=== PATIENT | female | born 1945 | race Caucasian/White ===

== ENCOUNTER 2017-03-15 05:00 | Inpatient (IN) | payer MEDICARE, BC ==
[2017-03-15] VITALS (36 sets, daily range): BP systolic 60–144; BP diastolic 41–128; PULSE 99–170; RESP 10–40; TEMP 98.3–101.1; O2SAT 90–100
[~2017-03-15 05:00] MED LIST: BLOOD GLUCOSE M1 KIT; BUME1TAB PO; CAPT25TA2 PO; CHOL4POW4 PO; LANTUS2P SQ; LEVO50TA4 PO; METF1000 PO; NOVOLOGP2 SQ; ONETTES4; PACE200T PO; SIMV20TA PO; TEMA15CA PO; VENL150T PO
--- NOTE | 2017-03-15 05:26 | PD ---
HPI Chief Complaint: Cardiac Complaint Time Seen by Provider: 05:19 Travel History International Travel<30 days: No Contact w/Intl Traveler<30days: No Traveled to known affect area: No History of Present Illness HPI 71yo F with PMH of CVA, afib s/p ablation 2013 but was told it returned 3 weeks ago, colon ca s/p chemo now cancer free, DM, HLD, HTN, hypothyroidism, anemia, GI bleed (eliquis stopped in 12/2015 due to GI bleed) presents to the ED with c/ o sob, nausea, NBNB vomiting, abdominal pain that started about 2 hours ago. States she has been having progressively worsening generalized weakness for 3 weeks. Then today, started having left flank pain and then vomited at least 8 times. states he could not understand for and her speech was incomprehensible during this time and that has resolved. Denies any fever, chest pain, focal weakness or numbness. States abdominal pain had resolved. Denies any diarrhea, or urinary complaints. Dr. 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 Dr. Candelario is her oncologist. PFSH Past Medical History Hx Anticoagulant Therapy: Yes Atrial Fibrillation: Yes Autoimmune Disease: No Heart Rhythm Problems: No Cancer: Yes (skin cancer in nose) Cardiovascular Problems: Yes (A FIB) High Cholesterol: No Chest Pain: No Congestive Heart Failure: No Cerebrovascular Accident: Yes (TIA X 2) Diabetes: Yes Diminished Hearing: No Endocrine: No Gastrointestinal Disorders: No Genitourinary: No Hiatal Hernia: No Hypertension: Yes Immune Disorder: No Musculoskeletal: No Neurologic: Yes Reproductive: No Respiratory: No Immunizations Current: Yes Migraines: No Seizures: No Thyroid Disease: Yes Menopausal: Yes : 3 Para: 2 Past Surgical History Abdominal Surgery: Yes (colon cancer02/2016, hernia repair) AICD: No Appendectomy: Yes Cardiac Surgery: Yes (ablation) Section: Yes Ear Surgery: No Endocrine Surgery: No Eye Surgery: No Genitourinary Surgery: No Gynecologic Surgery: Yes (c section x2) Joint Replacement: No Oral Surgery: No Pacemaker: No Thoracic Surgery: No Other Surgery: Yes (hernia repair) Social History Alcohol Use: Yes (occassional) Tobacco Use: No Substance Use: No Allergies-Medications (Allergen,Severity, Reaction): Coded Allergies: codeine (Unverified Allergy, Severe, Nausea/Vomiting, 03/15/17) Uncoded Allergies: METAL (Allergy, Intermediate, hives, 03/08/16) SURGICAL STEEL (Allergy, Intermediate, hives, 03/08/16) Reported Meds & Prescriptions Reported Meds & Active Scripts Active Temazepam 15 Mg Cap 15 Mg PO HS PRN Onetouch Ultra Test Strips (Blood Glucose Test Strips) 1 Daya Daya Strip .ROUTE DIRECTED Blood Glucose Monitoring W/Device (Device) 1 Kit Kit Kit .ROUTE DIRECTED Novolog Inj (Insulin Aspart) 1,000 Unit/10 Ml Vial 1-9 Units SQ ACHS Max dose at bedtime:(1)units; sugars less than 70,(0)units; sugars 150-199,(1) unit; sugars 200-249,(3) units; sugars 250-299,(5) units; sugars 300-349,(7) units; sugars greater than 349,(9) units Cholestyramine 4 Gm/Pkt Powd 4 Gm PO DAILY 1 packet contains 4 grams of cholestyramine. Simvastatin 20 Mg Tab 20 Mg PO DAILY Venlafaxine ER 24 HR (Venlafaxine HCl) 150 Mg Tab 150 Mg PO DAILY Levothyroxine (Levothyroxine Sodium) 50 Mcg Tab 50 Mcg PO DAILY Captopril 25 Mg Tab 25 Mg PO DAILY Take 1 hr before meals. Lantus Inj (Insulin Glargine) 100 Unit/Ml Inj 15 Units SQ HS Reported Ditropan (Oxybutynin Chloride) 5 Mg Tab 5 Mg PO Q8HR Metformin (Metformin HCl) 500 Mg Tab 500 Mg PO BIDPC With meals Bumetanide Unknown Strength Tab Unknown Dose PO BID Pacerone (Amiodarone HCl) 200 Mg Tab 200 Mg PO DAILY Review of Systems Except as stated in HPI: all other systems reviewed are Neg Physical Exam Narrative GENERAL: 71yo F in moderate distress. SKIN: Focused skin assessment warm/dry. HEAD: Atraumatic. Normocephalic. EYES: Pupils equal and round. No scleral icterus. No injection or drainage. ENT: No nasal bleeding or discharge. Mucous membranes pink and moist. NECK: Trachea midline. No JVD. CARDIOVASCULAR: Irregular rate and rhythm. No murmur appreciated. RESPIRATORY: No accessory muscle use. Clear to auscultation. Breath sounds equal bilaterally. O2sat 86% on RA. GASTROINTESTINAL: Abdomen soft, distended. Not tender to palpation. MUSCULOSKELETAL: No obvious deformities. No clubbing. No cyanosis. Trace bilateral lower ext edema. NEUROLOGICAL: Awake and alert. No obvious cranial nerve deficits. Motor grossly within normal limits. Normal speech. PSYCHIATRIC: Appropriate mood and affect; insight and judgment normal. Data Data Last Documented VS Vital Signs Date Time Temp Pulse Resp B/P (MAP) Pulse Ox O2 Delivery O2 Flow Rate FiO2 03/15/17 09:30 115 20 131/82 (98) 94 Nasal Cannula 4.00 03/15/17 05:04 98.3 Orders Orders Diltiazem Inj (Cardizem Inj) (03/15/17 05:30) Complete Blood Count With Diff (03/15/17 05:20) Basic Metabolic Panel (Bmp) (03/15/17 05:20) B-Type Natriuretic Peptide (03/15/17 05:20) Act Partial Throm Time (Ptt) (03/15/17 05:20) Prothrombin Time / Inr (Pt) (03/15/17 05:20) Magnesium (Mg) (03/15/17 05:20) Troponin I (03/15/17 05:20) Blood Culture (03/15/17 05:20) Iv Access Insert/Monitor (03/15/17 05:20) Ecg Monitoring (03/15/17 05:20) Oximetry (03/15/17 05:20) Oxygen Administration (03/15/17 05:20) Chest, Single Ap (03/15/17 05:20) Ct Pulmonary Angiogram (03/15/17 05:20) Sodium Chloride 0.9% Flush (Ns Flush) (03/15/17 05:30) Ct Brain W/O Iv Contrast(Rout) (03/15/17 ) Ct Abd/Pel W Iv Contrast(Rout) (03/15/17 ) Sodium Chlor 0.9% 1000 Ml Inj (Ns 1000 M (03/15/17 05:45) Vital Signs (Adult) Q4H (03/15/17 05:44) Activity Bed Rest (03/15/17 05:44) Intake + Output MAGALI.QSHIFT (03/15/17 05:44) Vital Signs (Adult) Q15MX4,Q4H (03/15/17 05:44) [employer] Technician / Telemetry MAGALI.Q8H (03/15/17 05:44) Cardiac Rhythm MAGALI.Q8H (03/15/17 05:44) Notify Dr: Other (03/15/17 05:44) Diltiazem Inj (Cardizem Inj) (03/15/17 05:45) Urinalysis - C+S If Indicated (03/15/17 05:48) Urine Culture (03/15/17 06:03) Ceftriaxone Inj (Rocephin Inj) (03/15/17 06:45) Electrocardiogram (03/15/17 05:19) Iodixanol 320 Inj (Rad Ct) (Visipaque 32 (03/15/17 08:11) Insulin Aspart Inj (Novolog Inj) (03/15/17 08:15) B-Type Natriuretic Peptide (03/15/17 08:16) Lactic Acid (03/15/17 08:16) Sodium Chlor 0.9% 1000 Ml Inj (Ns 1000 M (03/15/17 09:15) Sodium Chlor 0.9% 1000 Ml Inj (Ns 1000 M (03/15/17 09:15) Vancomycin Inj (Vancomycin Inj) (03/15/17 09:15) Admit Order (Ed Use Only) (03/15/17 09:40) Labs Laboratory Tests Test 03/15/17 05:55 03/15/17 06:03 03/15/17 08:27 White Blood Count 7.1 TH/MM3 Red Blood Count 4.81 MIL/MM3 Hemoglobin 13.9 GM/DL Hematocrit 42.3 % Mean Corpuscular Volume 87.8 FL Mean Corpuscular Hemoglobin 28.8 PG Mean Corpuscular Hemoglobin Concent 32.8 % Red Cell Distribution Width 15.5 % Platelet Count 143 TH/MM3 Mean Platelet Volume 9.2 FL Neutrophils (%) (Auto) 96.1 % Lymphocytes (%) (Auto) 2.9 % Monocytes (%) (Auto) 0.8 % Eosinophils (%) (Auto) 0.1 % Basophils (%) (Auto) 0.1 % Neutrophils # (Auto) 6.8 TH/MM3 Lymphocytes # (Auto) 0.2 TH/MM3 Monocytes # (Auto) 0.1 TH/MM3 Eosinophils # (Auto) 0.0 TH/MM3 Basophils # (Auto) 0.0 TH/MM3 CBC Comment AUTO DIFF Differential Total Cells Counted 100 Neutrophils % (Manual) 72 % Band Neutrophils % 16 % Lymphocytes % 6 % Monocytes % 5 % Neutrophils # (Manual) 6.3 TH/MM3 Myelocytes 1 % Differential Comment FINAL DIFF MANUAL Platelet Estimate NORMAL Platelet Morphology Comment NORMAL Prothrombin Time 11.3 SEC Prothromb Time International Ratio 1.0 RATIO Activated Partial Thromboplast Time 21.3 SEC Blood Urea Nitrogen 17 MG/DL Creatinine 1.32 MG/DL Random Glucose 430 MG/DL Calcium Level 9.0 MG/DL Magnesium Level 1.5 MG/DL Sodium Level 133 MEQ/L Potassium Level 3.6 MEQ/L Chloride Level 96 MEQ/L Carbon Dioxide Level 23.5 MEQ/L Anion Gap 14 MEQ/L Estimat Glomerular Filtration Rate 40 ML/MIN Troponin I 0.02 NG/ML B-Type Natriuretic Peptide 136 PG/ML 220 PG/ML Urine Color YELLOW Urine Turbidity HAZY Urine pH 6.0 Urine Specific Roundup 1.011 Urine Protein 30 mg/dL Urine Glucose (UA) 1000 mg/dL Urine Ketones TRACE mg/dL Urine Occult Blood LARGE Urine Nitrite NEG Urine Bilirubin NEG Urine Urobilinogen LESS THAN 2.0 MG/DL Urine Leukocyte Esterase SMALL Urine RBC /hpf Urine WBC 54 /hpf Urine WBC Clumps RARE Urine Squamous Epithelial Cells 2 /hpf Urine Bacteria MOD /hpf Urine Hyaline Casts 2 /lpf Urine Mucus FEW /lpf Microscopic Urinalysis Comment CULTURE INDICATED Lactic Acid Level 5.5 mmol/L MDM Medical Decision Making Medical Screen Exam Complete: Yes Emergency Medical Condition: Yes Interpretation(s) EKG: Afib at 142bpm. LAD. No ST segment elevation or depression. Differential Diagnosis Afib RVR vs. pneumonia vs. TIA vs. PE vs. ACS vs. obstruction vs. pyelonephritis vs. dehydration Narrative Course 71yo F with multiple comorbidities here with c/o vomiting that started with left flank pain and now sob. Pt found to be in afib RVR in the 140s-150s on arrival. Pt given cardizem 20mg X2 with improvement of heart rate in the 120s but HR fluctuates to 130s now. Pt placed on cardizem drip as well as NS IVF. I think the afib RVR is multifactorial with component from underlying dehydration and infection and underlying conditions need to be treated to correct the afib RVR. UA positive for leukocyte and elevated WBC, so pt given ceftriaxone 1gm IV. Pt hypoxic with O2 sat at 86% on RA and placed on 4 L NC saturating at 94%. Pt currently has no abdominal pain and no focal neurologic deficits although said she was incomprehensible earlier and had a CVA when that happened. Pt is not on any anticoagulation for her afib. Pt is pending rest of labs and imaging studies before admission to ICU. Sign out to next team to follow and admit. Diagnosis Primary Impression: Atrial fibrillation with rapid ventricular response Admitting Information Admitting Physician Requests: it Paris Rivera DO Mar 15, 2017 05:26
[2017-03-15] MEDS ORDERED: SODIUM CHLORIDE 0.9% FLUSH 10 ML FLUSH IVF PRN (05:30)
[2017-03-15] MEDS ORDERED: DILTIAZEM HCL 25 MG/5 ML VIAL IV PUSH ONE (05:30)
[2017-03-15] MEDS ORDERED: DILTIAZEM INJ 125 MG in SODIUM CHLORIDE 0.9% INJ 100 ML IV PRN (05:45)
[2017-03-15] MEDS ORDERED: SODIUM CHLOR 0.9% 1000 ML INJ 1,000 ML IV ONE ×2 (05:45→14:00)
[2017-03-15 06:17] LABS: AUTOMATED NEUTROPHIL # 6.8 TH/MM3 (1.8-7.7); BASOPHIL % 0.1 % (0.0-2.0); EOSINOPHIL % 0.1 % (0.0-4.0); HEMATOCRIT 42.3 % (35.0-46.0); LYMPH % 2.9 % (9.0-44.0); LYMPHOCYTE # 0.2 TH/MM3 (1.0-4.8); MEAN CELL VOLUME 87.8 FL (80.0-100.0); MEAN CORPUSCULAR HEMOGLOBIN 28.8 PG (27.0-34.0); MEAN CORPUSCULAR HGB CONC 32.8 % (32.0-36.0); MONO % 0.8 % (0.0-8.0); NEUT % 96.1 % (16.0-70.0); PLATELET COUNT 143 TH/MM3 (150-450); RED BLOOD COUNT 4.81 MIL/MM3 (4.00-5.30); RED CELL DISTRIBUTION WIDTH 15.5 % (11.6-17.2); WHITE BLOOD COUNT 7.1 TH/MM3 (4.0-11.0)
[2017-03-15 06:19] LABS: HEMO FLAGS AUTO DIFF
[2017-03-15 06:24] LABS: BACTERIA, URINE MOD /hpf; BLOOD, URINE LARGE (NEG); COMMENT (UR) CULTURE INDICATED; CULTURE IF INDICATED CULTURE INDICATED; GLUCOSE,URINE 1000 mg/dL (NEG); HYALINE CAST, URINE 2 /lpf (RARE); KETONE, URINE TRACE mg/dL (NEG); MUCUS URINE FEW /lpf (OCC); NITRITE,URINE NEG (NEG); SQUAMOUS EPITHELIAL CELL URINE 2 /hpf (0-5); URINE COLOR YELLOW (YELLW/STRAW)
[2017-03-15 06:27] LABS: APTT (PATIENT) 21.3 SEC (24.3-30.1); PROTHROMBIN TIME - PATIENT 11.3 SEC (9.8-11.6)
[2017-03-15 06:37] LABS: BICARBONATE 23.5 MEQ/L (21.0-32.0); MAGNESIUM 1.5 MG/DL (1.5-2.5); POTASSIUM 3.6 MEQ/L (3.5-5.1)
[2017-03-15] MEDS ORDERED: cefTRIAXone INJ 1,000 MG in SODIUM CHLORIDE 0.9% INJ 100 ML IV ONE (06:45)
[2017-03-15 06:58] LABS: BANDS 16 % (0-6); MYELOCYTES 1 % (0-0); NEUTROPHIL # MANUAL DIFF 6.3 TH/MM3 (1.8-7.7); POLYS (SEG NEUTROPHILS) 72 % (16-70); WBC DIFF SAMPLE 100
[2017-03-15 06:59] LABS: PLATELET ESTIMATE SMEAR NORMAL (NORMAL); PLATELET MORPHOLOGY NORMAL (NORMAL); SCAN/DIFF FINAL DIFF MANUAL
--- NOTE | 2017-03-15 07:21 | RADRPT ---
EXAM DATE/TIME: 03/15/2017 05:41 [facility] COMPARISON: CT PULMONARY ANGIOGRAM, March 17, 2015, 19:16. INDICATIONS : Shortness of breath, nausea, and vomiting. MEDICAL HISTORY : Carcinoma, colon. Diabetes mellitus type II. Hypertension. SURGICAL HISTORY : Infusaport. ENCOUNTER: Initial ACUITY: 1 day PAIN SCORE: 0/10 LOCATION: chest FINDINGS: Right [id number] catheter tip projects over the distal superior vena cava. The lungs are symmetri amanda aerated. There is fullness in the hilar region bilaterally; cannot exclude bilateral hilar dakota nopathy. The heart is normal in size. Both hemidiaphragms are well delineated. Healed fracture lat eral right clavicle. CONCLUSION: Opacity in the perihilar region bilaterally suggesting either central infiltrates or adenopathy. Antonio Voss MD on March 15, 2017 at 7:18 Board Certified Radiologist. This report was verified electronically.
[2017-03-15] MEDS ORDERED: IODIXANOL 320 MG/ML 10 ML VIAL (for Rad CT) IVCONTRAST ONE (08:11)
--- NOTE | 2017-03-15 08:14 | RADRPT ---
EXAM DATE/TIME: 03/15/2017 07:47 [facility] COMPARISON: CT BRAIN W/O CONTRAST, February 06, 2015, 14:42. INDICATIONS : Altered mental status. RADIATION DOSE: 56.35 CTDIvol (mGy) MEDICAL HISTORY : Carcinoma, colon. Cardiovascular disease Hypertension.Skin cancer. CVA. Diabetes. SURGICAL HISTORY : section. Appendectomy.Hernia repair. ENCOUNTER: Initial ACUITY: 1 day PAIN SCALE: 0/10 LOCATION: cranial TECHNIQUE: Multiple contiguous axial images were obtained of the head. Using automated exposure control and adj ustment of the mA and/or kV according to patient size, radiation dose was kept as low as reasonably a chievable to obtain optimal diagnostic quality images. DICOM format image data is available electro nically for review and comparison. FINDINGS: CEREBRUM: The ventricles are normal for age. No evidence of midline shift, mass lesion, hemorrhage or acute in farction. No extra-axial fluid collections are seen. POSTERIOR FOSSA: The cerebellum and brainstem are intact. The 4th ventricle is midline. The cerebellopontine angle i s unremarkable. EXTRACRANIAL: The visualized portion of the orbits is intact. SKULL: The calvaria is intact. No evidence of skull fracture. CONCLUSION: No acute intracranial disease. Jai Queen MD on March 15, 2017 at 8:12 Board Certified Radiologist. This report was verified electronically.
[2017-03-15] MEDS ORDERED: INSULIN ASPART 1,000 UNITS/10 ML VIAL SQ ONE (08:15)
--- NOTE | 2017-03-15 08:28 | RADRPT ---
EXAM DATE/TIME: 03/15/2017 07:46 [facility] COMPARISON: CT PULMONARY ANGIOGRAM, March 17, 2015, 19:16. INDICATIONS : Shortness of breath with atrial fibrillation. Evaluate for embolism. IV CONTRAST: 50 cc Visipaque (iodixanol) IV ; Cumulative dose for multiple exams. RADIATION DOSE: 14.58 CTDIvol (mGy) MEDICAL HISTORY : Carcinoma, colon. Hypertension. Cardiovascular diseaseSkin cancer. Diabetes. CVA. SURGICAL HISTORY : Appendectomy. section.Hernia repair. ENCOUNTER: Initial ACUITY: 1 day PAIN SCALE: 0/10 LOCATION: chest TECHNIQUE: Volumetric scanning of the chest was performed using a pulmonary embolism protocol MIP images were re constructed. Using automated exposure control and adjustment of the mA and/or kV according to patien t size, radiation dose was kept as low as reasonably achievable to obtain optimal diagnostic quality images. DICOM format image data is available electronically for review and comparison. Follow-up recommendations for detected pulmonary nodules are based at a minimum on nodule size and pa tient risk factors according to Fleischner Society Guidelines. FINDINGS: PULMONARY ARTERIES: No filling defects are seen in the pulmonary arteries through the segmental level. LUNGS: There is no consolidation or pneumothorax . No concerning pulmonary nodule is visualized. Bibasilar patchy infiltrates. There is mosaic attenuation. Minimal patchy density in the right middle lobe. PLEURAE: There is no pleural thickening or pleural effusion. MEDIASTINUM: There is good visualization of the great vessels of the middle mediastinum. No evidence of mediastin al or hilar adenopathy/mass. Heart is enlarged. There is enlargement of the pulmonary trunk and pulmo nary arteries. There are some prominent mediastinal lymph nodes predominantly within the precarinal a nd subcarinal location. MUSCULOSKELETAL: Within normal limits for patient age. MISCELLANEOUS: The visualized upper abdominal organs demonstrate no acute abnormality. CONCLUSION: 1. No evidence for pulmonary embolism. 2. Cardiomegaly with enlargement of pulmonary arteries likely from pulmonary arterial hypertension. 3. Bibasilar patchy densities could be atelectasis or infiltrate. 4. Mosaic attenuation which can be seen with small airway disease. 5. Enlarged precarinal and subcarinal adenopathy. Jai Queen MD on March 15, 2017 at 8:24 Board Certified Radiologist. This report was verified electronically.
--- NOTE | 2017-03-15 08:32 | RADRPT ---
EXAM DATE/TIME: 03/15/2017 07:51 [facility] COMPARISON: No previous studies available for comparison. INDICATIONS : Abdominal and flank pain with nausea. IV CONTRAST: 50 cc Visipaque (iodixanol) IV ; Cumulative dose for multiple exams. ORAL CONTRAST: No oral contrast ingested. RADIATION DOSE: 17.98 CTDIvol (mGy) MEDICAL HISTORY : Hypertension. Cardiovascular disease Carcinoma, colon.Skin cancer. Diabetes. CVA. SURGICAL HISTORY : section. Appendectomy.Hernia repair. ENCOUNTER: Initial ACUITY: 1 day PAIN SCALE: 5/10 LOCATION: Bilateral abdomen TECHNIQUE: Volumetric scanning of the abdomen and pelvis was performed. Using automated exposure control and ad justment of the mA and/or kV according to patient size, radiation dose was kept as low as reasonably achievable to obtain optimal diagnostic quality images. DICOM format image data is available electro nically for review and comparison. FINDINGS: LOWER LUNGS: Bibasilar densities. LIVER: Homogeneous density without lesion. There is no dilation of the biliary tree. No calcified gallston es. SPLEEN: Normal size without lesion. PANCREAS: Within normal limits. KIDNEYS: Normal in size and shape. There is mild bilateral hydronephrosis. No obstructing lesions. Perinephri c stranding greater on the left. ADRENAL GLANDS: Within normal limits. VASCULAR: There is no aortic aneurysm. BOWEL/MESENTERY: The stomach, small bowel, and colon demonstrate no acute abnormality. There is no free intraperitone al air or fluid. Minimal stranding in the mesentery. Postsurgical changes rectosigmoid junction. ABDOMINAL WALL: Small fat-containing abdominal hernias.. RETROPERITONEUM: There is no lymphadenopathy. BLADDER: There is wall thickening within the bladder with mild distention. REPRODUCTIVE: Within normal limits. INGUINAL: There is no lymphadenopathy or hernia. MUSCULOSKELETAL: Within normal limits for patient age. CONCLUSION: 1. Bilateral hydronephrosis with extensive stranding in the perinephric regions greater on the left. 2. Mild circumferential wall thickening within the bladder with mild distention. 3. Postsurgical changes rectosigmoid junction. 4. Small fat containing abdominal wall hernias. Jai Queen MD on March 15, 2017 at 8:27 Board Certified Radiologist. This report was verified electronically.
[2017-03-15] MEDS ORDERED: VANCOMYCIN INJ 1,300 MG in SODIUM CHLORID 0.9% 500 ML INJ 500 ML IV ONE (09:15)
[2017-03-15] MEDS ORDERED: SODIUM CHLOR 0.9% 1000 ML INJ 1,000 ML IV SCH ×3 (09:15→10:30)
[2017-03-15] MEDS ORDERED: MISCELLANEOUS NURSING INFORMATION XX SCH ×3 (10:00→14:30)
[2017-03-15] MEDS ORDERED: CHLORHEXIDINE GLUCONATE 2 % 1 PACK (2 CLOTHS) TOP PRN ×3 (10:00→14:30)
[2017-03-15] MEDS ORDERED: SODIUM CHLORIDE 0.9% FLUSH 10 ML FLUSH IV FLUSH PRN ×2 (10:00→14:30)
[2017-03-15] MEDS ORDERED: RESP: ALBUTEROL 2.5 MG/IPRATROPIUM 0.5 MG NEB (PRN) INH ×2 (10:00→14:30)
--- NOTE | 2017-03-15 10:14 | HHI.HP ---
[facility] Service Family Medicine Primary Care Physician Sheldon Puckett , R2 MD Tim Admission Diagnosis pyelonephritis, severe sepsis Diagnoses: Chief Complaint: abdominal pain, nausea and vomiting International Travel<30 Days: No Contact w/Intl Traveler<30days: No Known Affected Area: No History of Present Illness Patient is a 71 year old female with a PMH significant for colon cancer s/p chemotherapy, atrial fibrillation on Eliquis, HTN, DM type 2, and MDD who presented to the ED with abdominal pain, nausea and vomiting. She is accompanied by her who contributes to her history. Patient states that she had pain in her left side this morning that radiated to her lower abdomen and caused her to have nausea and vomiting. She states that she has been short of breath for the past 3 weeks and progressively more fatigued. Her states that she has been becoming progressively weaker and sleeping excessively at times. At 3AM this morning, he noticed that she was trying to talk but "wasn 't making any sense." He states that she has been so short of breath that she has been having difficulty finishing sentences without becoming short of breath. She notes dysuria, urinary urgency and frequency for the past 3-4 days. (Fanta Bobby MD, R3) Review of Systems Constitutional: COMPLAINS OF: Fatigue, Fever, Chills Eyes: DENIES: Blurred vision, Vision loss Respiratory: COMPLAINS OF: Shortness of breath, DENIES: Cough, Wheezing, Sputum production Cardiovascular: COMPLAINS OF: Lower Extremity Edema, DENIES: Chest pain, Palpitations Gastrointestinal: COMPLAINS OF: Abdominal pain, Nausea, Vomiting, DENIES: Black stools, Bloody stools Genitourinary: COMPLAINS OF: Urinary frequency, Urgency, Dysuria, DENIES: Hematuria Musculoskeletal: DENIES: Muscle aches Integumentary: DENIES: Rash Hematologic/lymphatic: COMPLAINS OF: Lymphadenopathy Neurologic: COMPLAINS OF: Poor Balance, DENIES: Headache, Localized weakness, Paresthesias Psychiatric: COMPLAINS OF: Confusion (Fanta Bobby MD, R3) Past Family Social History Past Medical History Atrial fibrillation (ablation x 2 in 2013) Eliquis stopped on 12/2015 for GI bleed Colon Cancer (sigmoid colon adenocarcinoma) Compression Fracture (12/2015 L3) MDD DM Type 2 HLD HTN Hypothyroidism TIA x [address] Candelario- Oncologist Dr. Tristian- Therapy Director Past Surgical History Abdominal surgery- 80's exploratory laparotomy Appendectomy Section x 2 EGD 12/2015 Flexible sigmoidoscopy 12/2015 Hernia repair Colonoscopy 2015 Reported Medications Reported Meds & Active Scripts Active Temazepam 15 Mg Cap 15 Mg PO HS PRN Onetouch Ultra Test Strips (Blood Glucose Test Strips) 1 Daya Daya Strip .ROUTE DIRECTED Blood Glucose Monitoring W/Device (Device) 1 Kit Kit Kit .ROUTE DIRECTED Novolog Inj (Insulin Aspart) 1,000 Unit/10 Ml Vial 1-9 Units SQ ACHS Max dose at bedtime:(1)units; sugars less than 70,(0)units; sugars 150-199,(1) unit; sugars 200-249,(3) units; sugars 250-299,(5) units; sugars 300-349,(7) units; sugars greater than 349,(9) units Cholestyramine 4 Gm/Pkt Powd 4 Gm PO DAILY 1 packet contains 4 grams of cholestyramine. Simvastatin 20 Mg Tab 20 Mg PO DAILY Venlafaxine ER 24 HR (Venlafaxine HCl) 150 Mg Tab 150 Mg PO DAILY Levothyroxine (Levothyroxine Sodium) 50 Mcg Tab 50 Mcg PO DAILY Captopril 25 Mg Tab 25 Mg PO DAILY Take 1 hr before meals. Lantus Inj (Insulin Glargine) 100 Unit/Ml Inj 15 Units SQ HS Metformin (Metformin HCl) 1,000 Mg Tab 1,000 Mg PO BIDPC With meals Reported Bumetanide Unknown Strength Tab Unknown Dose PO BID Pacerone (Amiodarone HCl) 200 Mg Tab 200 Mg PO DAILY (Fanta Bobby MD, R3) Allergies: Coded Allergies: codeine (Unverified Allergy, Severe, Nausea/Vomiting, 03/15/17) Uncoded Allergies: METAL (Allergy, Intermediate, hives, 03/08/16) SURGICAL STEEL (Allergy, Intermediate, hives, 03/08/16) Active Ordered Medications Current Medications Medications (Trade) Dose Ordered Sig/Chiqui Route Start Time Stop Time Status Last Admin Diltiazem HCl 125 mg/Sodium Chloride 125 ml @ 5 mls/hr TITRATE PRN IV 03/15/17 05:45 03/15/17 06:35 (Duoneb Neb) 1 ampule Q4HR NEB INH 03/15/17 12:00 03/15/17 10:24 (Duoneb Neb) 1 ampule Q2HR NEB PRN INH 03/15/17 10:00 (Lovenox Inj) 40 mg Q24H SQ 03/15/17 11:00 03/15/17 12:04 (NS Flush) 2 ml UNSCH PRN IV FLUSH 03/15/17 10:00 (NS Flush) 2 ml BID IV FLUSH 03/15/17 21:00 (Protonix) 40 mg DAILY PO 03/16/17 09:00 Miscellaneous Information 1 Q361D XX 03/15/17 10:00 (Chlorhexidine 2% Cloth) 3 pack Taper DAILY@04 TOP 03/16/17 04:00 03/12/18 03:59 (Chlorhexidine 2% Cloth) 3 pack UNSCH PRN TOP 03/15/17 10:00 Pharmacy Profile Note 0 ml @ 0 mls/hr UNSCH OTHER 03/15/17 10:15 (Tylenol) 650 mg Q4H PRN PO 03/15/17 10:15 (Zofran Inj) 4 mg Q6H PRN IV 03/15/17 10:15 (Motrin) 600 mg Q6H PRN PO 03/15/17 10:15 Piperacillin Sod/ Tazobactam Sod 100 ml @ 200 mls/hr Q6H IV 03/15/17 12:00 03/15/17 13:02 (D50w (Vial) Inj) 50 ml UNSCH PRN IV PUSH 03/15/17 10:30 (Glucagon Inj) 1 mg UNSCH PRN OTHER 03/15/17 10:30 (NovoLOG SUPPLEMENTAL SCALE) 1 ACHS SLIDING SCALE SQ 03/15/17 12:00 03/15/17 13:01 (Cordarone) 200 mg DAILY PO 03/16/17 09:00 (Capoten) 25 mg DAILY PO 03/16/17 09:00 (Questran 4 Gm Pkt) 4 gm DAILY PO 03/16/17 09:00 (Synthroid) 50 mcg DAILY@0600 PO 03/16/17 06:00 (Effexor Xr) 150 mg DAILY PO 03/16/17 09:00 (Pravachol) 40 mg DAILY PO 03/16/17 09:00 (Bumex Inj) 1 mg BID@18 IV PUSH 03/15/17 18:00 Sodium Chloride 1,000 ml @ 125 mls/hr Q8H IV 03/15/17 10:30 Vancomycin HCl 1700 mg/Sodium Chloride 517 ml @ 250 mls/hr Q24H IV 03/16/17 10:00 Miscellaneous Information SPECIFIC LAB TO BE ... ONCE ONCE .XX 03/18/17 09:45 03/18/17 09:46 Family History Mom: Breast CA at 48, still living at 87 Dad: emphysema No siblings Son: lymphedema Social History Lives at home with . Has two children. EtOH: very rarely Tob: 10 pack/yr smoker; quit 2009 Illicits: None . 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 2 healthy kids. (Fanta Bobby MD, R3) Physical Exam Vital Signs Vital Signs Date Time Temp Pulse Resp B/P (MAP) Pulse Ox O2 Delivery O2 Flow Rate FiO2 03/15/17 08:30 117 20 140/80 (100) 94 Nasal Cannula 4.00 03/15/17 07:30 132 20 142/83 (102) 93 Nasal Cannula 4.00 03/15/17 07:00 130 20 143/84 (103) 92 Nasal Cannula 4.00 03/15/17 06:35 137 147/96 03/15/17 05:32 93 Nasal Cannula 4.00 03/15/17 05:32 93 Nasal Cannula 4.00 03/15/17 05:04 98.3 170 22 144/103 (117) 90 Room Air Physical Exam GENERAL: This is a well-nourished, well-developed obese female patient who appears uncomfortable. SKIN: No rashes, ecchymoses or lesions. Cool and dry. Pallor. HEAD: Atraumatic. Normocephalic. No temporal or scalp tenderness. EYES: Pupils equal round and reactive. Extraocular motions intact. No scleral icterus. No injection or drainage. ENT: Nose without bleeding, purulent drainage or septal hematoma. Throat without erythema, tonsillar hypertrophy or exudate. Uvula midline. Airway patent. NECK: Trachea midline. No JVD. Left submandibular lymphadenopathy and parotid swelling. Supple, nontender, no meningeal signs. CARDIOVASCULAR: Irregularly irregular rate and rhythm without murmurs, gallops, or rubs. RESPIRATORY: Clear to auscultation. Breath sounds equal bilaterally. Occasional scattered wheezes. Tachypnea, saturating 94% on 4L NC. Unable to speak in complete sentences without becoming short of breath. GASTROINTESTINAL: Abdomen soft, non-tender, nondistended. No hepato-splenomegaly , or palpable masses. No guarding. GENITOURINARY: Left CVA tenderness. MUSCULOSKELETAL: 1+ pitting edema up to knees bilaterally. NEUROLOGICAL: Awake and alert. Oriented to person. Cranial nerves II through XII intact. Motor and sensory grossly within normal limits. 4 out of 5 muscle strength in all muscle groups. Generalized weakness. Normal speech. Laboratory Laboratory Tests Test 03/15/17 05:55 03/15/17 06:03 03/15/17 08:27 White Blood Count 7.1 Red Blood Count 4.81 Hemoglobin 13.9 Hematocrit 42.3 Mean Corpuscular Volume 87.8 Mean Corpuscular Hemoglobin 28.8 Mean Corpuscular Hemoglobin Concent 32.8 Red Cell Distribution Width 15.5 Platelet Count 143 Mean Platelet Volume 9.2 Neutrophils (%) (Auto) 96.1 Lymphocytes (%) (Auto) 2.9 Monocytes (%) (Auto) 0.8 Eosinophils (%) (Auto) 0.1 Basophils (%) (Auto) 0.1 Neutrophils # (Auto) 6.8 Lymphocytes # (Auto) 0.2 Monocytes # (Auto) 0.1 Eosinophils # (Auto) 0.0 Basophils # (Auto) 0.0 CBC Comment AUTO DIFF Differential Total Cells Counted 100 Neutrophils % (Manual) 72 Band Neutrophils % 16 Lymphocytes % 6 Monocytes % 5 Neutrophils # (Manual) 6.3 Myelocytes 1 Differential Comment FINAL DIFF MANUAL Platelet Estimate NORMAL Platelet Morphology Comment NORMAL Prothrombin Time 11.3 Prothromb Time International Ratio 1.0 Activated Partial Thromboplast Time 21.3 Blood Urea Nitrogen 17 Creatinine 1.32 Random Glucose 430 Calcium Level 9.0 Magnesium Level 1.5 Sodium Level 133 Potassium Level 3.6 Chloride Level 96 Carbon Dioxide Level 23.5 Anion Gap 14 Estimat Glomerular Filtration Rate 40 Troponin I 0.02 B-Type Natriuretic Peptide 136 220 Urine Color YELLOW Urine Turbidity HAZY Urine pH 6.0 Urine Specific [place] 1.011 Urine Protein 30 Urine Glucose (UA) 1000 Urine Ketones TRACE Urine Occult Blood LARGE Urine Nitrite NEG Urine Bilirubin NEG Urine Urobilinogen LESS THAN 2.0 Urine Leukocyte Esterase SMALL Urine RBC Urine WBC 54 Urine WBC Clumps RARE Urine Squamous Epithelial Cells 2 Urine Bacteria MOD Urine Hyaline Casts 2 Urine Mucus FEW Microscopic Urinalysis Comment CULTURE INDICATED Lactic Acid Level 5.5 Date/Time Source Procedure Growth Status 03/15/17 05:55 Blood Peripheral Aerobic Blood Culture Pending Received 03/15/17 05:55 Blood Peripheral Anaerobic Blood Culture Pending Received 03/15/17 06:03 Urine Clean Catch Urine Culture Pending Received (Fanta Bobby MD, R3) Result Diagram: 03/15/[id number] Imaging Last Impressions Chest X-Ray 03/15/17519 Signed Impressions: Service Date/Time: Wednesday, March 15, 2017 05:41 - CONCLUSION: Opacity in the perihilar region bilaterally suggesting either central infiltrates or adenopathy. Antonio Voss MD CT Angiography 03/15/17519 Signed Impressions: Service Date/Time: Wednesday, March 15, 2017 07:46 - CONCLUSION: 1. No evidence for pulmonary embolism. 2. Cardiomegaly with enlargement of pulmonary arteries likely from pulmonary arterial hypertension. 3. Bibasilar patchy densities could be atelectasis or infiltrate. 4. Mosaic attenuation which can be seen with small airway disease. 5. Enlarged precarinal and subcarinal adenopathy. Jai Queen MD Head CT 03/15/17 0000 Signed Impressions: Service Date/Time: Wednesday, March 15, 2017 07:47 - CONCLUSION: No acute intracranial disease. Jai Queen MD Abdomen/Pelvis CT 03/15/17 0000 Signed Impressions: Service Date/Time: Wednesday, March 15, 2017 07:51 - CONCLUSION: 1. Bilateral hydronephrosis with extensive stranding in the perinephric regions greater on the left. 2. Mild circumferential wall thickening within the bladder with mild distention. 3. Postsurgical changes rectosigmoid junction. 4. Small fat containing abdominal wall hernias. Jai Queen MD (Fanta Bobby MD, R3) Caprini VTE Risk Assessment Caprini VTE Risk Assessment: Mod/High Risk (score >= 2) Caprini Risk Assessment Model Point Value = 1 Point Value = 2 Point Value = 3 Point Value = 5 Age 41-60 Minor surgery BMI > 25 kg/m2 Swollen legs Varicose veins or History of unexplained or recurrent spontaneous Oral contraceptives or hormone replacement Sepsis (< 1 month) Serious lung disease, including pneumonia (< 1 month) Abnormal pulmonary function Acute myocardial infarction Congestive heart failure (< 1 month) History of inflammatory bowel disease Medical patient at bed rest Age 61-74 Arthroscopic surgery Major open surgery (> 45 min) Laparoscopic surgery (> 45 min) Malignancy Confined to bed (> 72 hours) Immobilizing plaster cast Central venous access Age >= 75 History of VTE Family history of VTE Factor V Leiden Prothrombin [id number] Lupus anticoagulant Anticardiolipin antibodies Elevated serum homocysteine Heparin-induced thrombocytopenia Other congenital or acquired thrombophilia Stroke (< 1 month) Elective arthroplasty Hip, pelvis, or leg fracture Acute spinal cord injury (< 1 month) Prophylaxis Regimen Total Risk Factor Score Risk Level Prophylaxis Regimen 0-1 Low Early ambulation 2 Moderate Order ONE of the following: *Sequential Compression Device (SCD) *Heparin 5000 units SQ BID 3-4 Higher Order ONE of the following medications: *Heparin 5000 units SQ TID *Enoxaparin/Lovenox 40 mg SQ daily (WT < 150 kg, CrCl > 30 mL/min) *Enoxaparin/Lovenox 30 mg SQ daily (WT < 150 kg, CrCl > 10-29 mL/min) *Enoxaparin/Lovenox 30 mg SQ BID (WT < 150 kg, CrCl > 30 mL/min) AND/OR *Sequential Compression Device (SCD) 5 or more Highest Order ONE of the following medications: *Heparin 5000 units SQ TID (Preferred with Epidurals) *Enoxaparin/Lovenox 40 mg SQ daily (WT < 150 kg, CrCl > 30 mL/min) *Enoxaparin/Lovenox 30 mg SQ daily (WT < 150 kg, CrCl > 10-29 mL/min) *Enoxaparin/Lovenox 30 mg SQ BID (WT < 150 kg, CrCl > 30 mL/min) AND *Sequential Compression Device (SCD) (Fanta Bobby MD, R3) Assessment and Plan Assessment and Plan Patient is a 71 year old female with a PMH significant for colon cancer s/p chemotherapy, atrial fibrillation on Eliquis, HTN, DM type 2, and MDD who presented to the ED with abdominal pain, nausea and vomiting and was found to have severe sepsis secondary to PNA and pyelonephritis in addition to atrial fibrillation with RVR. Code Status Full Code Discussed Condition With sdw Dr. Ambrosio (Fanta Bobby MD, R3) Attending Attestation THIS CASE WAS DISCUSSED WITH THE RESIDENT PHYSICIANS. PATIENT INTERVIEWED AND EXAMINED WITH DR BOBBY, I HAVE REVIEWED THE RECORD AND AGREE WITH THE ABOVE NOTE AND PLAN OF CARE WAS DISCUSSED. PATIENT IS SEPTIC AND CRITICAL CONDITION WILL BE ADMITTED TO UNIT FOR CLOSE MONITORING (Jefferson Ambrosio MD) Problem List: (1) Severe sepsis ICD Codes: A41.9 - Sepsis, unspecified organism; R65.20 - Severe sepsis without septic shock Status: Acute Plan: Secondary to PNA and pyelonephritis. CXR shows opacity in the perihilar region bilaterally suggesting either central infiltrates or adenopathy UA shows large occult blood, small leuk esterase, rare WBCs, moderate bacteria No leukocytosis, tachycardic to 170 with blood pressure 144/103 on admission Requiring 4L to saturate 92-95%. Not on oxygen at home. Glucose elevated at 430 on admission Creatinine elevated from baseline around 0.6 to 1.32 AMS with occasional episodes of confusion followed by moments of clarity- CT Head negative Abd/Pelvis CT significant for bilateral hydronephrosis with extensive stranding in the perinephric regions greater on the left. Mild circumferential wall thickening of the bladder with mild distention. Pulmonary CTA: No PE. Cardiomegaly, pulmonary arterial hypertension. Enlarged precarinal and subcarinal adenopathy. Plan: - Empiric coverage with Vanc and Zosyn - Obtain ABG - s/p 1L NS bolus x 2, give additional 1L NS bolus and reassess - Maintenance fluids with NS @ 130ml/hr - Follow urine and blood cultures - Lactic acid per sepsis protocol - CMP, CBC in AM - sputum culture, pneumococcal and legionella urinary antigens - Gallo catheter given AMS and for accurate I's and O's - Duonebs Q4H and Q2H PRN SOB/wheezing -Tylenol PRN fever - Influenza A/B (2) Pyelonephritis ICD Codes: N12 - Tubulo-interstitial nephritis, not specified as acute or chronic (3) PNA (pneumonia) ICD Codes: J18.9 - Pneumonia, unspecified organism (4) Atrial fibrillation with rapid ventricular response ICD Codes: I48.91 - Atrial fibrillation with rapid ventricular response Status: Acute Plan: EKG shows afib with RVR of 142 on admission HR up to 170 in ED s/p Diltiazem 21mg IV push in ED History of Afib, previously on Eliquis however not currently on due to complication of GI bleeding Plan: Now on Diltiazem drip Consult optical scientist, Dr. Lubin Continue home amiodarone 200mg PO daily (5) Diabetes mellitus, type II ICD Codes: E11.9 - Type 2 diabetes mellitus Status: Chronic Plan: On Lantus 15 units HS and metformin 500mg PO BID at home Glucose elevated at 430 on admission Low dose SSI Accuchecks Hold home metformin and Lantus for now (6) Hypertension ICD Codes: I10 - Essential (primary) hypertension Status: Chronic Plan: BP 144/103 on admission Continue home captopril 25mg PO daily (7) Hypothyroidism ICD Codes: E03.9 - Hypothyroidism Status: Acute Plan: Continue home Synthroid 50mcg PO daily (8) Nutrition, metabolism, and development symptoms ICD Codes: R63.8 - Symptoms concerning nutrition, metabolism, and development Status: Acute Plan: Fluids: continue NS bolus as above, Maintenance NS @ 130ml/hr Electrolytes: wnl, continue to monitor and replete PRN Nutrition: NPO given severe sepsis and AMS DVT ppx: Lovenox 40mg SQ Q24H (Fanta Bobby MD, R3) Physician Certification 2 Midnight Certification Type: Admission for Inpatient Services Order for Inpatient Services The services are ordered in accordance with Medicare regulations or non- Medicare payer requirements, as applicable. In the case of services not specified as inpatient-only, they are appropriately provided as inpatient services in accordance with the 2-midnight benchmark. Estimated LOS (days): 3 days is the estimated time the patient will need to remain in the hospital, assuming treatment plan goals are met and no additional complications. Post-Hospital Plan: Home (Fanta Bobby MD, R3) Problem Qualifiers (1) PNA (pneumonia): Qualified Codes: J18.9 - Pneumonia, unspecified organism (2) Diabetes mellitus, type II: Qualified Codes: E11.9 - Type 2 diabetes mellitus without complications; Z79.4 - prison (current) use of insulin (3) Hypertension: Qualified Codes: I10 - Essential (primary) hypertension (4) Hypothyroidism: Qualified Codes: E03.9 - Hypothyroidism, unspecified Fanta Bobby MD, R3 Mar 15, 2017 10:14 Jefferson Ambrosio MD Mar 15, 2017 16:23
[2017-03-15] MEDS ORDERED: ONDANSETRON HCL 4 MG/2 ML VIAL IV PRN (10:15)
[2017-03-15] MEDS ORDERED: Vancomycin Consult Pharmacy 1 EA OTHER SCH ×2 (10:15→17:15)
[2017-03-15] MEDS ORDERED: GLUCAGON 1 MG/ML VIAL OTHER PRN ×2 (10:30→15:15)
[2017-03-15] MEDS ORDERED: DEXTROSE 50% IN WATER 50 ML VIAL(D50) IV PUSH PRN ×2 (10:30→15:15)
[2017-03-15 10:32] LABS: BLOOD GAS BASE EXCESS -4.8 mmol/L (-2-2); BLOOD GAS CARBOXYHEMOGLOBIN 1.4 % (0-4); BLOOD GAS HCO3 19 mmol/L (22-26); BLOOD GAS METHEMOGLOBIN 0.7 % (0-2); BLOOD GAS O2 HGB SATURATION 94 % (90-100); BLOOD GAS OXYGEN CONTENT 16.4 Vol % (12.0-20.0); BLOOD GAS PCO2 31 mmHg (38-42); BLOOD GAS PO2 79 mmHG (61-120); BLOOD GAS TOTAL HGB 12.4 G/DL (12.0-16.0); TEMP CORR TO 98.6
[2017-03-15 10:33] LABS: CRITICAL VALUE NO; DRAW SITE RT RADIAL; LITER FLOW 4 L/M; NUMBER OF ARTERIAL PUNCTURES 1; OXYGEN DEVICE NASAL CANNULA; STAT YES; ULNAR PULSE PRESENT
--- NOTE | 2017-03-15 10:44 | PD ---
Data Data Last Documented VS Vital Signs Date Time Temp Pulse Resp B/P (MAP) Pulse Ox O2 Delivery O2 Flow Rate FiO2 03/15/17 08:30 117 20 140/80 (100) 94 Nasal Cannula 4.00 03/15/17 05:04 98.3 Orders Orders Diltiazem Inj (Cardizem Inj) (03/15/17 05:30) Complete Blood Count With Diff (03/15/17 05:20) Basic Metabolic Panel (Bmp) (03/15/17 05:20) B-Type Natriuretic Peptide (03/15/17 05:20) Act Partial Throm Time (Ptt) (03/15/17 05:20) Prothrombin Time / Inr (Pt) (03/15/17 05:20) Magnesium (Mg) (03/15/17 05:20) Troponin I (03/15/17 05:20) Blood Culture (03/15/17 05:20) Iv Access Insert/Monitor (03/15/17 05:20) Ecg Monitoring (03/15/17 05:20) Oximetry (03/15/17 05:20) Oxygen Administration (03/15/17 05:20) Chest, Single Ap (03/15/17 05:20) Ct Pulmonary Angiogram (03/15/17 05:20) Sodium Chloride 0.9% Flush (Ns Flush) (03/15/17 05:30) Ct Brain W/O Iv Contrast(Rout) (03/15/17 ) Ct Abd/Pel W Iv Contrast(Rout) (03/15/17 ) Sodium Chlor 0.9% 1000 Ml Inj (Ns 1000 M (03/15/17 05:45) Vital Signs (Adult) Q4H (03/15/17 05:44) Activity Bed Rest (03/15/17 05:44) Intake + Output MAGALI.QSHIFT (03/15/17 05:44) Vital Signs (Adult) Q15MX4,Q4H (03/15/17 05:44) Gunstock Spray Unit Adjuster / Telemetry MAGALI.Q8H (03/15/17 05:44) Cardiac Rhythm MAGALI.Q8H (03/15/17 05:44) Notify Dr: Other (03/15/17 05:44) Diltiazem Inj (Cardizem Inj) (03/15/17 05:45) Urinalysis - C+S If Indicated (03/15/17 05:48) Urine Culture (03/15/17 06:03) Ceftriaxone Inj (Rocephin Inj) (03/15/17 06:45) Electrocardiogram (03/15/17 05:19) Iodixanol 320 Inj (Rad Ct) (Visipaque 32 (03/15/17 08:11) Insulin Aspart Inj (Novolog Inj) (03/15/17 08:15) B-Type Natriuretic Peptide (03/15/17 08:16) Lactic Acid (03/15/17 08:16) Sodium Chlor 0.9% 1000 Ml Inj (Ns 1000 M (03/15/17 09:15) Sodium Chlor 0.9% 1000 Ml Inj (Ns 1000 M (03/15/17 09:15) Vancomycin Inj (Vancomycin Inj) (03/15/17 09:15) Admit Order (Ed Use Only) (03/15/17 09:40) Labs Laboratory Tests Test 03/15/17 05:55 03/15/17 06:03 03/15/17 08:27 White Blood Count 7.1 TH/MM3 Red Blood Count 4.81 MIL/MM3 Hemoglobin 13.9 GM/DL Hematocrit 42.3 % Mean Corpuscular Volume 87.8 FL Mean Corpuscular Hemoglobin 28.8 PG Mean Corpuscular Hemoglobin Concent 32.8 % Red Cell Distribution Width 15.5 % Platelet Count 143 TH/MM3 Mean Platelet Volume 9.2 FL Neutrophils (%) (Auto) 96.1 % Lymphocytes (%) (Auto) 2.9 % Monocytes (%) (Auto) 0.8 % Eosinophils (%) (Auto) 0.1 % Basophils (%) (Auto) 0.1 % Neutrophils # (Auto) 6.8 TH/MM3 Lymphocytes # (Auto) 0.2 TH/MM3 Monocytes # (Auto) 0.1 TH/MM3 Eosinophils # (Auto) 0.0 TH/MM3 Basophils # (Auto) 0.0 TH/MM3 CBC Comment AUTO DIFF Differential Total Cells Counted 100 Neutrophils % (Manual) 72 % Band Neutrophils % 16 % Lymphocytes % 6 % Monocytes % 5 % Neutrophils # (Manual) 6.3 TH/MM3 Myelocytes 1 % Differential Comment FINAL DIFF MANUAL Platelet Estimate NORMAL Platelet Morphology Comment NORMAL Prothrombin Time 11.3 SEC Prothromb Time International Ratio 1.0 RATIO Activated Partial Thromboplast Time 21.3 SEC Blood Urea Nitrogen 17 MG/DL Creatinine 1.32 MG/DL Random Glucose 430 MG/DL Calcium Level 9.0 MG/DL Magnesium Level 1.5 MG/DL Sodium Level 133 MEQ/L Potassium Level 3.6 MEQ/L Chloride Level 96 MEQ/L Carbon Dioxide Level 23.5 MEQ/L Anion Gap 14 MEQ/L Estimat Glomerular Filtration Rate 40 ML/MIN Troponin I 0.02 NG/ML B-Type Natriuretic Peptide 136 PG/ML 220 PG/ML Urine Color YELLOW Urine Turbidity HAZY Urine pH 6.0 Urine Specific [place] 1.011 Urine Protein 30 mg/dL Urine Glucose (UA) 1000 mg/dL Urine Ketones TRACE mg/dL Urine Occult Blood LARGE Urine Nitrite NEG Urine Bilirubin NEG Urine Urobilinogen LESS THAN 2.0 MG/DL Urine Leukocyte Esterase SMALL Urine RBC /hpf Urine WBC 54 /hpf Urine WBC Clumps RARE Urine Squamous Epithelial Cells 2 /hpf Urine Bacteria MOD /hpf Urine Hyaline Casts 2 /lpf Urine Mucus FEW /lpf Microscopic Urinalysis Comment CULTURE INDICATED Lactic Acid Level 5.5 mmol/L MDM Supervised Visit with TIARA: No Interpretation(s) No leukocytosis 72% neutrophils 16% bands Mild hyponatremia Glucose is 4:30 Lactic acid is 5.5 Urinalysis demonstrates urinary tract infection Last 24 hours Impressions Chest X-Ray 03/15/17519 Signed Impressions: Service Date/Time: Wednesday, March 15, 2017 05:41 - CONCLUSION: Opacity in the perihilar region bilaterally suggesting either central infiltrates or adenopathy. Antonio Voss MD CT Angiography 03/15/17519 Signed Impressions: Service Date/Time: Wednesday, March 15, 2017 07:46 - CONCLUSION: 1. No evidence for pulmonary embolism. 2. Cardiomegaly with enlargement of pulmonary arteries likely from pulmonary arterial hypertension. 3. Bibasilar patchy densities could be atelectasis or infiltrate. 4. Mosaic attenuation which can be seen with small airway disease. 5. Enlarged precarinal and subcarinal adenopathy. Jai Queen MD Head CT 03/15/17 0000 Signed Impressions: Service Date/Time: Wednesday, March 15, 2017 07:47 - CONCLUSION: No acute intracranial disease. Jai Queen MD Abdomen/Pelvis CT 03/15/17 0000 Signed Impressions: Service Date/Time: Wednesday, March 15, 2017 07:51 - CONCLUSION: 1. Bilateral hydronephrosis with extensive stranding in the perinephric regions greater on the left. 2. Mild circumferential wall thickening within the bladder with mild distention. 3. Postsurgical changes rectosigmoid junction. 4. Small fat containing abdominal wall hernias. Jai Queen MD Differential Diagnosis Pyelonephritis, pneumonia, obstructed stone, atrial fibrillation with RVR, sepsis Narrative Course This is a 71-year-old female who presents to the emergency department with flank pain, generalized weakness and shortness of breath. She was seen initially by Dr. Rivera who ordered CT imaging and labs as well as ceftriaxone. She was started on a diltiazem drip prior to my arrival. Her heart rate significantly improved. She had evidence of a bandemia on labs. I broaden her coverage to include vancomycin and azithromycin. A lactic acid was added which was 5.5. Patient was administered additional IV hydration. CT imaging demonstrates bilateral hydronephrosis and pyelonephrosis as well as bilateral pneumonia. Patient is very ill-appearing, does have some labored respirations and given her elevated lactic acid I think she belongs in the intensive care unit for close monitoring. I spoke to the resident team who will take over care. Critical Care Narrative Aggregate critical care time was 40 minutes. Time to perform other separately billable procedures was not included in the critical care time. My time did not include minutes spent treating any other patients simultaneously or on activities that did not directly contribute to the patient's treatment. The services I provided to this patient were to treat and/or prevent clinically significant deterioration that could result in: Disability, I provided critical care services requiring my management, as noted below: Chart data review, documentation time, medication orders and management, vital sign assessments/reviewing monitor data, ordering and reviewing lab tests, ordering and interpreting/reviewing x-rays and diagnostic studies, care of the patient and discussion of the patient with the admitting physicians. Diagnosis Primary Impression: Severe sepsis Admitting Information Admitting Physician Requests: Admit Pat Worley MD Mar 15, 2017 10:44
[2017-03-15] MEDS ORDERED: ENOXAPARIN SODIUM 40 MG/0.4 ML SYRINGE SQ SCH (11:00)
[2017-03-15] MEDS ORDERED: VANCOMYCIN INJ 1,000 MG in SODIUM CHLOR 0.9% 250 ML INJ 250 ML IV SCH (11:00)
[2017-03-15 11:59] LABS: INDIRECT BILIRUBIN 0.4 MG/DL (0.0-0.8); TOTAL BILIRUBIN ADULT 0.6 MG/DL (0.2-1.0)
[2017-03-15] MEDS ORDERED: RESP: ALBUTEROL 2.5 MG/IPRATROPIUM 0.5 MG NEB (SCH) INH (12:00)
[2017-03-15] MEDS ORDERED: PIPERACIL-TAZO 4.5 GM PREMIX 100 ML IV SCH (12:00)
[2017-03-15] MEDS ORDERED: INSULIN ASPART SUPPLEMENTAL SCALE SQ SCH (12:00)
[2017-03-15 12:57] LABS: LACTIC ACID GHOST NOT REPORTABLE
[2017-03-15] MEDS ORDERED: METF500T PO (13:26)
[2017-03-15] MEDS ORDERED: OXYB5TAB10 PO (13:28)
[2017-03-15] MEDS ORDERED: ETOMIDATE 20 MG/10 ML VIAL ONE (14:03)
[2017-03-15] MEDS ORDERED: ROCURONIUM INJ 50 MG/5 ML VIAL ONE (14:03)
[2017-03-15] MEDS ORDERED: MIDAZOLAM HCL 5 MG/ML VIAL (1 ML) ONE (14:14)
[2017-03-15] MEDS ORDERED: PROPOFOL 1000 MG/100 ML INJ 100 ML IV PRN (14:30)
[2017-03-15] MEDS ORDERED: BISACODYL 10 MG SUPP RECTAL PRN (14:30)
[2017-03-15] MEDS ORDERED: ONDANSETRON HCL 4 MG/2 ML VIAL IV PUSH PRN (14:30)
[2017-03-15] MEDS ORDERED: SENNOSIDES 8.6 MG TAB PO PRN (14:30)
[2017-03-15] MEDS ORDERED: LACTULOSE SYRUP 20 GM/30 ML CUP PO PRN (14:30)
[2017-03-15 14:44] LABS: BLOOD GAS BASE EXCESS -7.9 mmol/L (-2-2); BLOOD GAS CARBOXYHEMOGLOBIN 1.2 % (0-4); BLOOD GAS HCO3 20 mmol/L (22-26); BLOOD GAS METHEMOGLOBIN 1.3 % (0-2); BLOOD GAS O2 HGB SATURATION 91 % (90-100); BLOOD GAS PCO2 69 mmHg (38-42); BLOOD GAS PO2 98 mmHg (61-120); BLOOD GAS TOTAL HGB 12.4 G/DL (12.0-16.0); CRITICAL VALUE YES; OXYGEN DEVICE VENTILATOR; TEMP CORR TO 98.6
[2017-03-15 14:46] LABS: DRAW SITE RT RADIAL; FIO2 50 %; NUMBER OF ARTERIAL PUNCTURES 1; STAT NO; ULNAR PULSE PRESENT; VENT SETTINGS VOL/AC
--- NOTE | 2017-03-15 14:59 | RADRPT ---
EXAM DATE/TIME: 03/15/2017 14:30 [facility] COMPARISON: CT PULMONARY ANGIOGRAM, March 15, 2017, 7:46. CHEST SINGLE AP, March 15, 2017, 5:41. INDICATIONS : Endotracheal tube placement. MEDICAL HISTORY : None. SURGICAL HISTORY : None. ENCOUNTER: Initial ACUITY: 1 day PAIN SCORE: Non-responsive. LOCATION: chest FINDINGS: Indwelling right [id number] catheter is in place with endotracheal tube above the angelica. There is increasing prominence of pulmonary interstitial perivascular the tip in the right lung and consolida tion left lung base. Findings represent progression of infiltrate or an atypical CHF. CONCLUSION: ET tube above the angelica. Increasing interstitial thickening in the right lung and perivascular raise the question as to interstitial edema CHF with some consolidation in the left base retrocardiac cesar on Chaparro Avila MD on March 15, 2017 at 14:56 Board Certified Radiologist. This report was verified electronically.
--- NOTE | 2017-03-15 15:36 | OTSOAPIP ---
TIME SESSION COMPLETED: AM TREATMENT TIME: 0 MINS. CHART REVIEWED. ATTEMPTED TO SEE FOR OT EVALUATION, HOWEVER NURSE ASKED TO DEFER. WILL FOLLOW NEXT DAY. Therapist: ZULY HAQUE OT/Mirta Signature on file
--- NOTE | 2017-03-15 16:21 | EKG ---
Date Performed: 03/15/2017 Time Performed: 05:19:04 PTAGE: 71 years EKG: ATRIAL FIBRILLATION WITH RAPID VENTRICULAR RESPONSE MARKED RIGHT AXIS DEVIATION POSSIBLE AN TERIOR MYOCARDIAL INFARCTION ABNORMAL ECG Since PREVIOUS TRACING : now RVR PREVIOUS TRACIN03/08/2016 09.20 DOCTOR: Abbey Tariq Interpretating Date/Time 03/15/2017 16:20:28
--- NOTE | 2017-03-15 16:46 | PD.CONS ---
HPI Service Critical Care Medicine Consult Requested By Primary Care Physician Chelo Santiago MD History of Present Illness This is a 71 year old female with a PMH significant for colon cancer s/p chemotherapy, atrial fibrillation previously on Eliquis discontinued for GI bleeding, HTN, DM type 2, and MDD who presented to the ED with abdominal pain, nausea and vomiting.The patient stated that she had pain in her left side this morning that radiated to her lower abdomen and caused her to have nausea and vomiting. She states that she has been short of breath for the past 3 weeks and progressively more fatigued. Her states that she has been becoming progressively weaker and sleeping excessively at times. At 3AM this morning, he noticed that she was trying to talk but "wasn't making any sense." He states that she has been so short of breath that she has been having difficulty finishing sentences without becoming short of breath. She notes dysuria, urinary urgency and frequency for the past 3-4 days. Imaging studies and laboratory studies were performed. Notably CTA of the chest reveal pulmonary hypertension and carinal lymphadenopathy. CT abdomen and pelvis revealed bilateral hydronephrosis and pyelonephrosis with perinephric stranding. Cultures were sent, the patient was noted to have bacteremia notably gram- negative rods. The patient was in A. fib RVR in the ED the patient received Cardizem bolus and was placed on a Cardizem infusion and transferred to ICU. Upon admission to ICU the patient became progressively short of breath with escalating alternation in mental status critical care medicine was consulted. The patient's heart rate at that time was in the 130s systolic pressure 140s and O2 sat high 80s. Brief discussion with purpose of emergent intubation. ROS - General Review of Systems Constitutional: COMPLAINS OF: Fatigue, Fever, Chills Eyes: DENIES: Blurred vision, Vision loss Respiratory: COMPLAINS OF: Shortness of breath, DENIES: Cough, Wheezing, Sputum production Cardiovascular: COMPLAINS OF: Lower Extremity Edema, DENIES: Chest pain, Palpitations Gastrointestinal: COMPLAINS OF: Abdominal pain, Nausea, Vomiting, DENIES: Black stools, Bloody stools Genitourinary: COMPLAINS OF: Urinary frequency, Urgency, Dysuria, DENIES: Hematuria Musculoskeletal: DENIES: Muscle aches Integumentary: DENIES: Rash Hematologic/lymphatic: COMPLAINS OF: Lymphadenopathy Neurologic: COMPLAINS OF: Poor Balance, DENIES: Headache, Localized weakness, Paresthesias Psychiatric: COMPLAINS OF: Confusion PFSH Past Family Social History Past Medical History Atrial fibrillation (ablation x 2 in 2013) Eliquis stopped on 12/2015 for GI bleed Colon Cancer (sigmoid colon adenocarcinoma) Compression Fracture (12/2015 L3) Major Depressive Disorder DM Type 2 HLD HTN Hypothyroidism TIA x [address] Candelario- Oncologist Dr. Lubin- [employer] Att[employer] Past Surgical History Abdominal surgery- 80's exploratory laparotomy Appendectomy Section x 2 EGD 12/2015 Flexible sigmoidoscopy 12/2015 Hernia repair Colonoscopy 2016 Reported Medications Reported Meds & Active Scripts Active Temazepam 15 Mg Cap 15 Mg PO HS PRN Onetouch Ultra Test Strips (Blood Glucose Test Strips) 1 Daya Daya Strip .ROUTE DIRECTED Blood Glucose Monitoring W/Device (Device) 1 Kit Kit Kit .ROUTE DIRECTED Novolog Inj (Insulin Aspart) 1,000 Unit/10 Ml Vial 1-9 Units SQ ACHS Max dose at bedtime:(1)units; sugars less than 70,(0)units; sugars 150-199,(1) unit; sugars 200-249,(3) units; sugars 250-299,(5) units; sugars 300-349,(7) units; sugars greater than 349,(9) units Cholestyramine 4 Gm/Pkt Powd 4 Gm PO DAILY 1 packet contains 4 grams of cholestyramine. Simvastatin 20 Mg Tab 20 Mg PO DAILY Venlafaxine ER 24 HR (Venlafaxine HCl) 150 Mg Tab 150 Mg PO DAILY Levothyroxine (Levothyroxine Sodium) 50 Mcg Tab 50 Mcg PO DAILY Captopril 25 Mg Tab 25 Mg PO DAILY Take 1 hr before meals. Lantus Inj (Insulin Glargine) 100 Unit/Ml Inj 15 Units SQ HS Metformin (Metformin HCl) 1,000 Mg Tab 1,000 Mg PO BIDPC With meals Reported Bumetanide Unknown Strength Tab Unknown Dose PO BID Pacerone (Amiodarone HCl) 200 Mg Tab 200 Mg PO DAILY Allergies: Coded Allergies: codeine (Unverified Allergy, Severe, Nausea/Vomiting, 03/15/17) Uncoded Allergies: METAL (Allergy, Intermediate, hives, 03/08/16) SURGICAL STEEL (Allergy, Intermediate, hives, 03/08/16) Active Ordered Medications Current Medications Medications (Trade) Dose Ordered Sig/Chiqui Route Start Time Stop Time Status Last Admin Diltiazem HCl 125 mg/Sodium Chloride 125 ml @ 5 mls/hr TITRATE PRN IV 03/15/17 05:45 03/15/17 06:35 (Duoneb Neb) 1 ampule Q4HR NEB INH 03/15/17 12:00 03/15/17 10:24 (Duoneb Neb) 1 ampule Q2HR NEB PRN INH 03/15/17 10:00 (Lovenox Inj) 40 mg Q24H SQ 03/15/17 11:00 03/15/17 12:04 (NS Flush) 2 ml UNSCH PRN IV FLUSH 03/15/17 10:00 (NS Flush) 2 ml BID IV FLUSH 03/15/17 21:00 (Protonix) 40 mg DAILY PO 03/16/17 09:00 Miscellaneous Information 1 Q361D XX 03/15/17 10:00 (Chlorhexidine 2% Cloth) 3 pack Taper DAILY@04 TOP 03/16/17 04:00 03/12/18 03:59 (Chlorhexidine 2% Cloth) 3 pack UNSCH PRN TOP 03/15/17 10:00 Pharmacy Profile Note 0 ml @ 0 mls/hr UNSCH OTHER 03/15/17 10:15 (Tylenol) 650 mg Q4H PRN PO 03/15/17 10:15 (Zofran Inj) 4 mg Q6H PRN IV 03/15/17 10:15 (Motrin) 600 mg Q6H PRN PO 03/15/17 10:15 Piperacillin Sod/ Tazobactam Sod 100 ml @ 200 mls/hr Q6H IV 03/15/17 12:00 03/15/17 13:02 (D50w (Vial) Inj) 50 ml UNSCH PRN IV PUSH 03/15/17 10:30 (Glucagon Inj) 1 mg UNSCH PRN OTHER 03/15/17 10:30 (NovoLOG SUPPLEMENTAL SCALE) 1 ACHS SLIDING SCALE SQ 03/15/17 12:00 03/15/17 13:01 (Cordarone) 200 mg DAILY PO 03/16/17 09:00 (Capoten) 25 mg DAILY PO 03/16/17 09:00 (Questran 4 Gm Pkt) 4 gm DAILY PO 03/16/17 09:00 (Synthroid) 50 mcg DAILY@0600 PO 03/16/17 06:00 (Effexor Xr) 150 mg DAILY PO 03/16/17 09:00 (Pravachol) 40 mg DAILY PO 03/16/17 09:00 (Bumex Inj) 1 mg BID@,18 IV PUSH 03/15/17 18:00 Sodium Chloride 1,000 ml @ 125 mls/hr Q8H IV 03/15/17 10:30 Vancomycin HCl 1700 mg/Sodium Chloride 517 ml @ 250 mls/hr Q24H IV 03/16/17 10:00 Miscellaneous Information SPECIFIC LAB TO BE SHEREE... ONCE ONCE .XX 03/18/17 09:45 03/18/17 09:46 Family History Mom: Breast CA at 48, still living at 87 Dad: emphysema No siblings Son: lymphedema Social History Lives at home with . Has two children. EtOH: very rarely Tob: 10 pack/yr smoker; quit 2009 Illicits: None . 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 2 healthy kids. Past Family Social History Allergies: Coded Allergies: codeine (Unverified Allergy, Severe, Nausea/Vomiting, 03/15/17) Uncoded Allergies: METAL (Allergy, Intermediate, hives, 03/08/16) SURGICAL STEEL (Allergy, Intermediate, hives, 03/08/16) Physical Exam Vital Signs Vital Signs Date Time Temp Pulse Resp B/P (MAP) Pulse Ox O2 Delivery O2 Flow Rate FiO2 03/15/17 14:29 92 50 03/15/17 12:00 105 03/15/17 11:44 03/15/17 11:35 98.7 105 28 123/75 (91) 94 03/15/17 11:35 105 03/15/17 10:34 94 Nasal Cannula 4.00 03/15/17 10:30 110 20 125/70 (88) 95 Nasal Cannula 4.00 03/15/17 09:30 115 20 131/82 (98) 94 Nasal Cannula 4.00 03/15/17 08:30 117 20 140/80 (100) 94 Nasal Cannula 4.00 03/15/17 07:30 132 20 142/83 (102) 93 Nasal Cannula 4.00 03/15/17 07:00 130 20 143/84 (103) 92 Nasal Cannula 4.00 03/15/17 06:35 137 147/96 03/15/17 05:32 93 Nasal Cannula 4.00 03/15/17 05:32 93 Nasal Cannula 4.00 03/15/17 05:04 98.3 170 22 144/103 (117) 90 Room Air Physical Exam GENERAL: Critically ill-appearing female in severe respiratory distress, tachypneic with altered mental status SKIN: Warm and dry. HEAD: Atraumatic. Normocephalic. EYES: Pupils equal and round. No scleral icterus. No injection or drainage. ENT: No nasal bleeding or discharge. Mucous membranes pink and moist. NECK: Trachea midline. No JVD. CARDIOVASCULAR: Irregularly irregular rhythm. RESPIRATORY: Accessory muscle use. Coarse breaths sounds bilateral. Breath sounds equal bilaterally. GASTROINTESTINAL: Abdomen soft, protuberant non-tender, nondistended. No guarding. MUSCULOSKELETAL: Extremities without clubbing, cyanosis, or edema. No obvious deformities. NEUROLOGICAL: GCS 14 .RASS 0. No gross focal/sensory deficits. Not following commands, but movement of extremities x 4. Laboratory Laboratory Tests Test 03/15/17 05:55 03/15/17 06:03 03/15/17 08:27 03/15/17 10:22 White Blood Count 7.1 Red Blood Count 4.81 Hemoglobin 13.9 Hematocrit 42.3 Mean Corpuscular Volume 87.8 Mean Corpuscular Hemoglobin 28.8 Mean Corpuscular Hemoglobin Concent 32.8 Red Cell Distribution Width 15.5 Platelet Count 143 Mean Platelet Volume 9.2 Neutrophils (%) (Auto) 96.1 Lymphocytes (%) (Auto) 2.9 Monocytes (%) (Auto) 0.8 Eosinophils (%) (Auto) 0.1 Basophils (%) (Auto) 0.1 Neutrophils # (Auto) 6.8 Lymphocytes # (Auto) 0.2 Monocytes # (Auto) 0.1 Eosinophils # (Auto) 0.0 Basophils # (Auto) 0.0 CBC Comment AUTO DIFF Differential Total Cells Counted 100 Neutrophils % (Manual) 72 Band Neutrophils % 16 Lymphocytes % 6 Monocytes % 5 Neutrophils # (Manual) 6.3 Myelocytes 1 Differential Comment FINAL DIFF MANUAL Platelet Estimate NORMAL Platelet Morphology Comment NORMAL Prothrombin Time 11.3 Prothromb Time International Ratio 1.0 Activated Partial Thromboplast Time 21.3 Blood Urea Nitrogen 17 Creatinine 1.32 Random Glucose 430 Calcium Level 9.0 Magnesium Level 1.5 Sodium Level 133 Potassium Level 3.6 Chloride Level 96 Carbon Dioxide Level 23.5 Anion Gap 14 Estimat Glomerular Filtration Rate 40 Troponin I 0.02 B-Type Natriuretic Peptide 136 220 Urine Color YELLOW Urine Turbidity HAZY Urine pH 6.0 Urine Specific [place] 1.011 Urine Protein 30 Urine Glucose (UA) 1000 Urine Ketones TRACE Urine Occult Blood LARGE Urine Nitrite NEG Urine Bilirubin NEG Urine Urobilinogen LESS THAN 2.0 Urine Leukocyte Esterase SMALL Urine RBC Urine WBC 54 Urine WBC Clumps RARE Urine Squamous Epithelial Cells 2 Urine Bacteria MOD Urine Hyaline Casts 2 Urine Mucus FEW Microscopic Urinalysis Comment CULTURE INDICATED Lactic Acid Level 5.5 Blood Gas Puncture Site RT RADIAL Blood Gas Patient Temperature 98.6 Blood Gas HCO3 19 Blood Gas Base Excess -4.8 Blood Gas Oxygen Saturation 94 Arterial Blood pH 7.41 Arterial Blood Partial Pressure CO2 31 Arterial Blood Partial Pressure O2 79 Arterial Blood Oxygen Content 16.4 Arterial Blood Carboxyhemoglobin 1.4 Arterial Blood Methemoglobin 0.7 Blood Gas Hemoglobin 12.4 Oxygen Delivery Device NASAL CANNULA Blood Gas Liter Flow 4 Test 03/15/17 10:45 03/15/17 11:50 03/15/17 14:31 03/15/17 15:20 Lactic Acid Level 6.4 Total Bilirubin 0.6 Direct Bilirubin 0.2 Indirect Bilirubin 0.4 Aspartate Amino Transf (AST/SGOT) 30 Alanine Aminotransferase (ALT/SGPT) 23 Alkaline Phosphatase 108 C-Reactive Protein 3.58 Total Protein 6.0 Albumin 2.6 Nasal Screen MRSA (PCR) MRSA NOT DETECTED Blood Gas Puncture Site RT RADIAL Blood Gas Patient Temperature 98.6 Blood Gas HCO3 20 Blood Gas Base Excess -7.9 Blood Gas Oxygen Saturation 91 Arterial Blood pH 7.10 Arterial Blood Partial Pressure CO2 69 Arterial Blood Partial Pressure O2 98 Arterial Blood Oxygen Content 16.0 Arterial Blood Carboxyhemoglobin 1.2 Arterial Blood Methemoglobin 1.3 Blood Gas Hemoglobin 12.4 Oxygen Delivery Device VENTILATOR Blood Gas Ventilator Setting VOL/AC Blood Gas Inspired Oxygen 50 Date/Time Source Procedure Growth Status 03/15/17 05:55 Blood Peripheral Aerobic Blood Culture Pending Resulted 03/15/17 05:55 Anaerobic Blood Culture - Preliminary Gram Negative Jose Resulted 03/15/17 06:03 Urine Random Urine Legionella Antigen Pending Received 03/15/17 06:03 Urine Random Urine Streptococcus pneumoniae Antigen (M Pending Received Result Diagram: 03/15/17 0555 03/15/17 0555 Imaging Last Impressions Chest X-Ray 03/15/17519 Signed Impressions: Service Date/Time: Wednesday, March 15, 2017 05:41 - CONCLUSION: Opacity in the perihilar region bilaterally suggesting either central infiltrates or adenopathy. Antonio Voss MD CT Angiography 03/15/17519 Signed Impressions: Service Date/Time: Wednesday, March 15, 2017 07:46 - CONCLUSION: 1. No evidence for pulmonary embolism. 2. Cardiomegaly with enlargement of pulmonary arteries likely from pulmonary arterial hypertension. 3. Bibasilar patchy densities could be atelectasis or infiltrate. 4. Mosaic attenuation which can be seen with small airway disease. 5. Enlarged precarinal and subcarinal adenopathy. Jai Queen MD Head CT 03/15/17 0000 Signed Impressions: Service Date/Time: Wednesday, March 15, 2017 07:47 - CONCLUSION: No acute intracranial disease. Jai Queen MD Abdomen/Pelvis CT 03/15/17 0000 Signed Impressions: Service Date/Time: Wednesday, March 15, 2017 07:51 - CONCLUSION: 1. Bilateral hydronephrosis with extensive stranding in the perinephric regions greater on the left. 2. Mild circumferential wall thickening within the bladder with mild distention. 3. Postsurgical changes rectosigmoid junction. 4. Small fat containing abdominal wall hernias. 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 Major Depressive Disorder Neurochecks per ICU protocol Patient intubated for airway protection continues on propofol and fentanyl infusions for ventilator synchrony, Ammonia level obtained 67-begin lactulose 03/15 CT brain-no intracranial abnormality Daily sedation vacation Respiratory: Acute Hypoxemic respiratory failure Pulmonary hypertension Carinal adenopathy 03/14 Patient intubated emergently 7.5 ET T 22 cm at the lip Maintain O2 sat greater than 92% Ventilator bundle Bronchodilators every 6 hours scheduled and every [address] angiogram -pulmonary hypertension, no PE, enlarged precarinal and subcarinal lymphadenopathy Chest x-rays ABGs when clinically indicated 03/15- CXR -consolidations B/L lobes Cardiovascular: A. fib RVR Hypertension Patient arrived on Cardizem infusion-heart rate 130's, discontinued for MAP less than 60 Patient's home med amiodarone 200 mg daily increased to 400 mg twice a day Last echo 02/05- ejection fraction 55-60%. No RWMA. PAP 35 mmHg, TV mild regurg, MV mild regurg Repeat echo EPS- Dr. Lubin consulted Renal: Bilateral hydronephrosis Pyelonephrosis Insert and maintain Gallo catheter 03/14-CT of the abdomen and pelvis-bilateral hydronephrosis, pyelonephrosis, perinephric stranding -- Strict I/Os FEN/GI: History of colon cancer status post chemotherapy Abdominal hernia Nothing by mouth for now NGT to LIWS Heme/ID: Severe sepsis Community-acquired multilobar pneumonia Lactic acidemia Bandemia Blood cultures Gram-negative rods Follow-up urine culture and sputum culture ID consulted - Dr. Hansen Empiric antibiotics include vancomycin, Zosyn and patient received 1 dose of Rocephin in the ED Heme- Onc consulted regarding carinal adenopathy lymphadenopathy, patient is S/ P completion of chemotherapy 06/2016 Trend lactate level 6.4->4.2, Bands 17% Endocrine: Diabetes mellitus Hypothyroidism High-dose medication regimen Continue Levothyroxine 50 mcgs/day Obtain thyroid panel -- SSI Prophylaxis: GI Prophylaxis DC Protonix, famotidine twice a day DVT Prophylaxis -- SCDs Heparin 5000u BID Lines: Port right chest, peripheral IVs 2, left radial A-line Dispo: This patient remains critically ill with one or more organ systems which are or may become a threat to life. I have spent in excess of 60 minutes discontinuously in the care and management of this patient. This time is exclusive of procedures, and includes, but is not limited to, evaluation of the patient, review of the medical record, discussions with family, consultants, nursing staff, or respiratory therapy, and documentation in the medical record. Code Status Full Discussed Condition With , , and [employer]LECT[employer]DE CLE[employer]ER at bedside. Oksana Ware MD Mar 15, 2017 16:46
[2017-03-15] MEDS: fentaNYL 2,500 MCG/NS 250 ML IV PRN (16:47)
--- NOTE | 2017-03-15 17:08 | PD.CONS ---
History of Present Illness Service Infectious Disease Consult Requested By Dr Ambrosio, Dr Hawkins Reason for Consult Evaluate patient with severe sepsis, pyelonephritis Primary Care Physician Sheldon Puckett , Chelo Dumont MD Diagnoses: History of Present Illness Patient seen and examined. Records reviewed. Patient is a 71-year-old female, admitted to the hospital for evaluation of abdominal pain, nausea and vomiting. She apparently has been complaining of left-sided abdominal pain goes down to the lower abdomen. She also started having nausea and vomiting. There was mention of some dysuria, urgency and frequency in the last 3-4 days. Patient also apparently has been having problem with shortness of breath over the last 3 weeks, and generalized weakness and easy fatigability. There was no mention of any fever or chills or sweats. On the morning of admission, the patient was noted to be confused, and was having more shortness of breath. There is no mention of any cough or congestion, or any complaint of any chest pain. Patient was brought into the hospital for further evaluation and treatment. Patient has had imaging studies done. CTA did not show any pulmonary embolism. CT of the abdomen and pelvis showing some mild bilateral hydronephrosis and some perinephric stranding. Her UA has pyuria. 2 blood cultures on admission are now reported as growing gram-negative jose. Her WBC is normal. Creatinine is 1.32. Patient went into significant respiratory distress, and ended up getting intubated. She has received Zosyn, and vancomycin. Neurology has been consult. Infectious disease consultation requested to evaluate the patient with severe sepsis. Review of Systems ROS Limitations: Clinical Condition, Intubated Past Family Social History Allergies: Coded Allergies: codeine (Unverified Allergy, Severe, Nausea/Vomiting, 03/15/17) Uncoded Allergies: METAL (Allergy, Intermediate, hives, 03/08/16) SURGICAL STEEL (Allergy, Intermediate, hives, 03/08/16) Past Medical History Atrial fibrillation (ablation x 2 in 2013) Eliquis stopped on 12/2015 for GI bleed Colon Cancer (sigmoid colon adenocarcinoma) Compression Fracture (12/2015 L3) Depression DM Type 2 Hyperlipidemia Hypertension Hypothyroidism TIA x 2 in 2014 Past Surgical History Abdominal surgery- exploratory laparotomy Sigmoid colectomy, low anterior resection, repair of ventral hernia, 2016 [id number] placement Previous cardiac ablation for atrial fibrillation Appendectomy Section x 2 EGD 12/2015 Flexible sigmoidoscopy 12/2015 Hernia repair Colonoscopy 2015 Reported Medications Reported Meds & Active Scripts Active Temazepam 15 Mg Cap 15 Mg PO HS PRN Onetouch Ultra Test Strips (Blood Glucose Test Strips) 1 Daya Daya Strip .ROUTE DIRECTED Blood Glucose Monitoring W/Device (Device) 1 Kit Kit Kit .ROUTE DIRECTED Novolog Inj (Insulin Aspart) 1,000 Unit/10 Ml Vial 1-9 Units SQ ACHS Max dose at bedtime:(1)units; sugars less than 70,(0)units; sugars 150-199,(1) unit; sugars 200-249,(3) units; sugars 250-299,(5) units; sugars 300-349,(7) units; sugars greater than 349,(9) units Cholestyramine 4 Gm/Pkt Powd 4 Gm PO DAILY 1 packet contains 4 grams of cholestyramine. Simvastatin 20 Mg Tab 20 Mg PO DAILY Venlafaxine ER 24 HR (Venlafaxine HCl) 150 Mg Tab 150 Mg PO DAILY Levothyroxine (Levothyroxine Sodium) 50 Mcg Tab 50 Mcg PO DAILY Captopril 25 Mg Tab 25 Mg PO DAILY Take 1 hr before meals. Lantus Inj (Insulin Glargine) 100 Unit/Ml Inj 15 Units SQ HS Reported Ditropan (Oxybutynin Chloride) 5 Mg Tab 5 Mg PO Q8HR Metformin (Metformin HCl) 500 Mg Tab 500 Mg PO BIDPC With meals Bumetanide Unknown Strength Tab Unknown Dose PO BID Pacerone (Amiodarone HCl) 200 Mg Tab 200 Mg PO DAILY Active Ordered Medications Tylenol Albuterol DuoNeb Cordarone Dulcolax Bumex Captopril Questran Pepcid Fentanyl Heparin Ibuprofen Insulin Lactulose Synthroid Ativan MOM Zofran Zosyn Pravachol Diprivan Elsa-Colace Senokot Vancomycin Effexor Family History Family history of breast cancer, and COPD Social History Lives at home with . Has two children. 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 EtOH: very rarely Tob: 10 pack/yr smoker; quit 2009 Illicits: None Physical Exam Vital Signs Vital Signs Date Time Temp Pulse Resp B/P (MAP) Pulse Ox O2 Delivery O2 Flow Rate FiO2 03/15/17 14:29 92 50 03/15/17 12:00 105 03/15/17 11:44 03/15/17 11:35 98.7 105 28 123/75 (91) 94 03/15/17 11:35 105 03/15/17 10:34 94 Nasal Cannula 4.00 03/15/17 10:30 110 20 125/70 (88) 95 Nasal Cannula 4.00 03/15/17 09:30 115 20 131/82 (98) 94 Nasal Cannula 4.00 03/15/17 08:30 117 20 140/80 (100) 94 Nasal Cannula 4.00 03/15/17 07:30 132 20 142/83 (102) 93 Nasal Cannula 4.00 03/15/17 07:00 130 20 143/84 (103) 92 Nasal Cannula 4.00 03/15/17 06:35 137 147/96 03/15/17 05:32 93 Nasal Cannula 4.00 03/15/17 05:32 93 Nasal Cannula 4.00 03/15/17 05:04 98.3 170 22 144/103 (117) 90 Room Air Physical Exam GENERAL: Patient is a well-nourished, well-developed CF, sedated on the vent , looks comfortable on the vent SKIN: Warm and dry. No generalized rash, no ecchymoses and no evidence of embolic lesions. HEAD: Atraumatic. Normocephalic. No temporal wasting, or tenderness. EYES: [place] conjunctiva. No petechia or hemorrhage. Pupils equal, round and reactive to light. No scleral icterus. No injection or drainage. EARS, NOSE AND THROAT: Nose without bleeding or purulent nasal discharge. She is orally intubated. NECK: Trachea midline. Supple and no meningeal signs CARDIOVASCULAR: Irregular rate and rhythm. No murmurs, rubs or gallops heard RESPIRATORY: Equal breath sounds bilaterally. Coarse breath sounds. Decreased at the bases. Port in the right upper chest, currently accessed, no redness, swelling or induration. ABDOMEN: Mildly distended, globular abdomen, no reaction to palpation. Has 2 long healed incisions, one midline and one horizontal. Bowel sounds present and hypoactive. No guarding. No rebound. No organomegaly. EXTREMITIES: No clubbing, cyanosis, or edema. No joint effusion, has good ROM. Well perfused and warm. NEUROLOGICAL: Sedated, no Babinski, no ankle clonus PSYCHIATRIC: Unable to assess LINE: No evidence of infection - port R upper chest : Gallo in place, urine looks clear Laboratory Laboratory Tests Test 03/15/17 05:55 03/15/17 06:03 03/15/17 08:27 03/15/17 10:22 White Blood Count 7.1 Red Blood Count 4.81 Hemoglobin 13.9 Hematocrit 42.3 Mean Corpuscular Volume 87.8 Mean Corpuscular Hemoglobin 28.8 Mean Corpuscular Hemoglobin Concent 32.8 Red Cell Distribution Width 15.5 Platelet Count 143 Mean Platelet Volume 9.2 Neutrophils (%) (Auto) 96.1 Lymphocytes (%) (Auto) 2.9 Monocytes (%) (Auto) 0.8 Eosinophils (%) (Auto) 0.1 Basophils (%) (Auto) 0.1 Neutrophils # (Auto) 6.8 Lymphocytes # (Auto) 0.2 Monocytes # (Auto) 0.1 Eosinophils # (Auto) 0.0 Basophils # (Auto) 0.0 CBC Comment AUTO DIFF Differential Total Cells Counted 100 Neutrophils % (Manual) 72 Band Neutrophils % 16 Lymphocytes % 6 Monocytes % 5 Neutrophils # (Manual) 6.3 Myelocytes 1 Differential Comment FINAL DIFF MANUAL Platelet Estimate NORMAL Platelet Morphology Comment NORMAL Prothrombin Time 11.3 Prothromb Time International Ratio 1.0 Activated Partial Thromboplast Time 21.3 Blood Urea Nitrogen 17 Creatinine 1.32 Random Glucose 430 Calcium Level 9.0 Magnesium Level 1.5 Sodium Level 133 Potassium Level 3.6 Chloride Level 96 Carbon Dioxide Level 23.5 Anion Gap 14 Estimat Glomerular Filtration Rate 40 Troponin I 0.02 B-Type Natriuretic Peptide 136 220 Urine Color YELLOW Urine Turbidity HAZY Urine pH 6.0 Urine Specific Thomson 1.011 Urine Protein 30 Urine Glucose (UA) 1000 Urine Ketones TRACE Urine Occult Blood LARGE Urine Nitrite NEG Urine Bilirubin NEG Urine Urobilinogen LESS THAN 2.0 Urine Leukocyte Esterase SMALL Urine RBC Urine WBC 54 Urine WBC Clumps RARE Urine Squamous Epithelial Cells 2 Urine Bacteria MOD Urine Hyaline Casts 2 Urine Mucus FEW Microscopic Urinalysis Comment CULTURE INDICATED Lactic Acid Level 5.5 Blood Gas Puncture Site RT RADIAL Blood Gas Patient Temperature 98.6 Blood Gas HCO3 19 Blood Gas Base Excess -4.8 Blood Gas Oxygen Saturation 94 Arterial Blood pH 7.41 Arterial Blood Partial Pressure CO2 31 Arterial Blood Partial Pressure O2 79 Arterial Blood Oxygen Content 16.4 Arterial Blood Carboxyhemoglobin 1.4 Arterial Blood Methemoglobin 0.7 Blood Gas Hemoglobin 12.4 Oxygen Delivery Device NASAL CANNULA Blood Gas Liter Flow 4 Test 03/15/17 10:45 03/15/17 11:50 03/15/17 14:31 03/15/17 15:20 Lactic Acid Level 6.4 4.9 Total Bilirubin 0.6 Direct Bilirubin 0.2 Indirect Bilirubin 0.4 Aspartate Amino Transf (AST/SGOT) 30 Alanine Aminotransferase (ALT/SGPT) 23 Alkaline Phosphatase 108 C-Reactive Protein 3.58 Total Protein 6.0 Albumin 2.6 Nasal Screen MRSA (PCR) MRSA NOT DETECTED Blood Gas Puncture Site RT RADIAL Blood Gas Patient Temperature 98.6 Blood Gas HCO3 20 Blood Gas Base Excess -7.9 Blood Gas Oxygen Saturation 91 Arterial Blood pH 7.10 Arterial Blood Partial Pressure CO2 69 Arterial Blood Partial Pressure O2 98 Arterial Blood Oxygen Content 16.0 Arterial Blood Carboxyhemoglobin 1.2 Arterial Blood Methemoglobin 1.3 Blood Gas Hemoglobin 12.4 Oxygen Delivery Device VENTILATOR Blood Gas Ventilator Setting VOL/AC Blood Gas Inspired Oxygen 50 Ammonia 67 Date/Time Source Procedure Growth Status 03/15/17 05:55 Blood Peripheral Aerobic Blood Culture Pending Resulted 03/15/17 05:55 Anaerobic Blood Culture - Preliminary Gram Negative Jose Resulted 03/15/17 06:03 Urine Random Urine Legionella Antigen Pending Received 03/15/17 06:03 Urine Random Urine Streptococcus pneumoniae Antigen (M Pending Received Result Diagram: 03/15/1755 03/15/1755 Imaging RADIOLOGY STUDIES/FILMS REVIEWED Chest X-Ray 03/15/17519 Signed Impressions: Service Date/Time: Wednesday, March 15, 2017 05:41 - CONCLUSION: Opacity in the perihilar region bilaterally suggesting either central infiltrates or adenopathy. Antonio Voss MD CT Angiography 03/15/17519 Signed Impressions: Service Date/Time: Wednesday, March 15, 2017 07:46 - CONCLUSION: 1. No evidence for pulmonary embolism. 2. Cardiomegaly with enlargement of pulmonary arteries likely from pulmonary arterial hypertension. 3. Bibasilar patchy densities could be atelectasis or infiltrate. 4. Mosaic attenuation which can be seen with small airway disease. 5. Enlarged precarinal and subcarinal adenopathy. Jai Queen MD Head CT 03/15/17 0000 Signed Impressions: Service Date/Time: Wednesday, March 15, 2017 07:47 - CONCLUSION: No acute intracranial disease. Jai Queen MD Abdomen/Pelvis CT 03/15/17 0000 Signed Impressions: Service Date/Time: Wednesday, March 15, 2017 07:51 - CONCLUSION: 1. Bilateral hydronephrosis with extensive stranding in the perinephric regions greater on the left. 2. Mild circumferential wall thickening within the bladder with mild distention. 3. Postsurgical changes rectosigmoid junction. 4. Small fat containing abdominal wall hernias. Jai Queen MD Assessment and Plan Assessment and Plan IMPRESSION Severe sepsis, has GNR in BC - has pyelonephritis (has perinephric stranding on CT and mild hydro, no stone seen, no colitis on CT, has complaints) - has port - no PNA complaints Respiratory failure Known Colon CA, with (+) LN, undergoing chemo - S/P sigmoid colectomy, low anterior resection Renal insufficiency due to sepsis Atrial fib, chronic, previous ablation done RECOMMENDATION Repeat BC tomorrow Follow C/S Continue Vanco - will ask pharm to assist with dosing IV Merem and Levaquin for GNR (Patient critically ill, and immunocompromised) Urology has been consulted to evaluate UTI, hydronephrosis Monitor progress I will follow along with you Thank you for this consultation Discussed Condition With D/W RN D/W Dr Ware ([facility]) Rosaura Hansen MD Mar 15, 2017 17:08
[2017-03-15] MEDS ORDERED: ASP: Other exception documentation: ( ) PRN (17:15)
[2017-03-15] MEDS ORDERED: MISCELLANEOUS PHARMACY INFORMATION XX PRN (17:15)
[2017-03-15 17:50] LABS: BLOOD GAS BASE EXCESS -5.4 mmol/L (-2-2); BLOOD GAS CARBOXYHEMOGLOBIN 1.6 % (0-4); BLOOD GAS HCO3 19 mmol/L (22-26); BLOOD GAS METHEMOGLOBIN 1.3 % (0-2); BLOOD GAS O2 HGB SATURATION 97 % (90-100); BLOOD GAS OXYGEN CONTENT 15.8 Vol % (12.0-20.0); BLOOD GAS PCO2 33 mmHg (38-42); BLOOD GAS PO2 232 mmHg (61-120); BLOOD GAS TOTAL HGB 11.2 G/DL (12.0-16.0); TEMP CORR TO 98.6
[2017-03-15 17:51] LABS: CRITICAL VALUE NO; DRAW SITE ART LINE; FIO2 80 %; OXYGEN DEVICE VENTILATOR; STAT YES; VENT SETTINGS 550/12/PEEP 5
[2017-03-15] MEDS: BUMETANIDE INJ 1 MG/4 ML VIAL IV PUSH SCH (18:00)
[2017-03-15] MEDS: LACTULOSE SYRUP 20 GM/30 ML CUP NG SCH (18:03)
[2017-03-15] MEDS: MIDAZOLAM 100 MG/NS 100 ML DRIP Premix IV PRN (18:03)
[2017-03-15] MEDS: INSULIN ASPART SUPPLEMENTAL SCALE SQ SCH ×2 (18:03→21:00)
[2017-03-15] MEDS: ARTIFICIAL TEARS OPTH SOLN 15 ML BTL EACH EYE SCH (18:14)
--- NOTE | 2017-03-15 18:35 | MB ---
cc: NISHANT SUN MD DATE OF CONSULTATION: 03/15/2017. REASON FOR CONSULTATION: 1. Mild bilateral hydronephrosis. 2. Urosepsis. HISTORY OF PRESENT ILLNESS: This patient is a 71-year-old with a past medical history of colon cancer status post chemotherapy, diabetes type 2, hypertension who presented to the emergency room with abdominal pain, nausea and vomiting since yesterday morning. Per the , she started having left-sided pain early in the morning that radiated to her lower abdomen causing her to have nausea and vomiting. He also states she has been short of breath for the past three weeks and progressively more fatigued, lethargic and progressively becoming weaker. At 3:00 a.m. this morning, he noticed that she was trying to talk but did not make any sense. She has had TIAs in the past. She has been so short of breath that she has been having difficulty walking becoming short of breath. She mentioned that she had been complaining of some burning with urination with frequency and urgency for the past three to four days. In the emergency department, she had a CT of the abdomen and pelvis without contrast performed which showed mild bilateral hydronephrosis as well as a moderately distended bladder and a thickened bladder wall. She also had a CTA of the chest which revealed pulmonary hypertension. Cultures were also sent and she was noted to have gram-negative rods in two blood cultures. Her urine culture is currently pending. She subsequently went into atrial fibrillation with rapid ventricular response in the emergency department and was placed on a Cardizem drip and transferred to the intensive care unit. Once in the intensive care unit, she progressively became short of breath with decline of mental status and critical care was consulted. She subsequently was intubated and stabilized and urology was consulted for the bilateral hydronephrosis. Per her , she has never had a kidney stone in the past. He states that she does urinate quite frequently and does leak into her diaper from time to time. She states she has never had a kidney stone and has infrequent urinary tract infections. REVIEW OF SYSTEMS: Unobtainable due to the patient's condition. PAST MEDICAL HISTORY: 1. History of atrial fibrillation previously on Eliquis but stopped in 12/2015 for GI bleed. 2. Colon cancer. 3. Compression fracture. 4. Diabetes type 2. 5. Hyperlipidemia. 6. Hypertension. 7. Hypothyroidism. 8. TIA x2. PAST SURGICAL HISTORY: 1. She had an exploratory laparotomy with sigmoid colon resection. 2. Appendectomy. 3. section x2. 4. Hernia repair. 5. Colonoscopy. 6. Flexible sigmoidoscopy. MEDICATIONS: 1. NovoLog insulin. 2. Cholestyramine. 3. Synthroid. 4. Captopril. 5. Lantus. 6. Metformin. 7. Bumetanide. ALLERGIES: 1. CODEINE. FAMILY HISTORY: Negative for urolithiasis. SOCIAL HISTORY: She lives at home with her . She has two children. Previous smoker ten pack/year and quit in 2009. Denies illicit drugs. 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 PHYSICAL EXAMINATION: VITAL SIGNS: 98.7, pulse 105, respiratory rate 28, blood pressure 123/75, satting 92% on FIO2 of 50. GENERAL: She is intubated and sedated. Resting comfortably. HEAD: Normocephalic and atraumatic. EYES: No scleral icterus. Pupils equal, round and reactive to light. NECK: The neck is supple. Trachea is midline. No jugular venous distention. LUNGS: Nonlabored respirations. No wheezes, rales or rhonchi. HEART: Irregularly irregular and tachycardic. No murmurs, rubs or gallops ABDOMEN: Soft but obese. Nontender, nondistended. Positive bowel sounds. GENITOURINARY: No costovertebral angle tenderness bilaterally. Gallo catheter draining dark-colored cloudy urine. PELVIC: No performed at this time. EXTREMITIES: Nontender. No cyanosis, clubbing or edema. SKIN: No visible ulcers or rashes. [place] and moist. LABORATORY STUDIES: Her labs show: A white count 7.1, hemoglobin 13.9, hematocrit 42.3, platelet count 143,000. Sodium 130, potassium was 3.6, chloride 96, bicarbonate 23.5, BUN 17, creatinine 1.32, glucose 430, lactic acid 5.5. Coags: INR 1.0. Urine shows trace ketones, 1000 glucose, small leukocyte esterase. Blood cultures 2/2 were positive for gram-negative rods. IMAGING STUDIES: CT of the abdomen and pelvis images were reviewed. I agree with the radiologist's report. The patient has mild bilateral hydronephrosis with a moderately distended bladder and thickened bladder wall. There is some perinephric stranding. No evidence of stones or obvious obstruction. ASSESSMENT AND PLAN: The patient is a 71-year-old female with history of colon cancer and diabetes who was admitted with nausea and vomiting and abdominal pain and who went into respiratory failure resulting in intubation and was found to have bilateral hydronephrosis and mildly distended thickened bladder. PLAN: Will obtain a Lasix renogram to rule out obstruction. If she is obstructed, then due to her clinical condition, she would need bilateral nephrostomy tubes. However I suspect that the hydronephrosis is an incidental finding and likely could be from her high pressure voiding from her bladder due to the thickened bladder wall. Will await results of the Lasix renogram when she is stable to have it. Continue the antibiotics per the primary team. Monitor her renal function as well. Thank you for this consult and we will follow along with you. Nishant Sun MD EMLinda/CYNTHIA /5:20 PM /6:13 PM
[2017-03-15] MEDS: ACETAMINOPHEN 325 MG TAB PO PRN (18:51)
[2017-03-15] MEDS: LEVOFLOXACIN 750 MG PREMIX INJ 150 ML IV SCH (18:51)
[2017-03-15] MEDS: SODIUM CHLOR 0.9% 1000 ML INJ 1,000 ML IV SCH (18:54)
[2017-03-15] MEDS: VASOPRESSIN INJ 40 UNITS in DEXTROSE 5% IN WATER 100ML INJ 98 ML IV SCH ×2 (20:14)
--- NOTE | 2017-03-15 20:19 | MB ---
cc: AWILDA LONG M.D. DATE OF CONSULTATION: 03/15/2017. REASON FOR CONSULTATION: Oncology was consulted to render an opinion regarding a patient with mediastinal adenopathy and history of colon cancer. ATTENDING PHYSICIAN: Dr. Hawkins. HISTORY OF PRESENT ILLNESS: The patient is a 71-year-old female with history of colon cancer brought into the hospital with complaint of nausea, vomiting and abdominal pain. The patient is currently intubated and sedated. There is no family at the bedside. History was obtained from her medical record. Apparently the patient has been having increased shortness of breath for the last three weeks. A few days ago she started having nausea, vomiting and abdominal pain mostly on the left side and this morning she was found to be confused. She was brought into the emergency room and CT showed bilateral pyelonephritis. CT of the chest does not show any pulmonary embolism but there is some patchy density which could be infiltrate versus atelectasis. There was also some prominent lymph nodes in the precarinal and subcarinal areas. Apparently the patient's condition worsened this afternoon and she became very confused. She was hypercapnic and was intubated. PAST MEDICAL HISTORY: 1. Colon cancer. 2. Atrial fibrillation. 3. Hypertension. 4. Diabetes mellitus. 5. Compression fracture at L3. 6. Hyperlipidemia. 7. Hypothyroidism. 8. Transient ischemic attach. PAST SURGICAL HISTORY: 1. Appendectomy. 2. section x2. 3. EGD and colonoscopy. 4. Hernia repair. 5. Abdominal surgery. FAMILY HISTORY: Noncontributory. SOCIAL HISTORY: Occasional alcohol. Quit tobacco in 2009. ALLERGIES: CODEINE. CURRENT MEDICATIONS: 1. Vancomycin. 2. Captopril. 3. Questran. 4. Venlafaxine. 5. Pravachol. 6. Levothyroxine. 7. Heparin. 8. Elsa-Colace. 9. Amiodarone. 10. Meropenem. 11. Bumex. 12. Levofloxacin. REVIEW OF SYSTEMS: Not obtainable. PHYSICAL EXAMINATION: VITAL SIGNS: Temperature 101.1, blood pressure 90/52. The patient is intubated. GENERAL: She is sedated on the vent. HEAD, EYES, EARS, NOSE, THROAT: Atraumatic, normocephalic. Pupils reactive to light. OROPHARYNX: ET tube in place. No bleeding noted. NECK: No thyromegaly. No palpable mass. LYMPHATIC: No palpable cervical, clavicular, axillary or inguinal lymph nodes. CARDIOVASCULAR: Regular S1 and S2. Tachycardic. LUNGS: Clear to auscultation anteriorly. ABDOMEN: Abdomen soft and slightly distended. Hypoactive bowel sounds. EXTREMITIES: No cyanosis or clubbing or edema. SKIN: No rash or petechiae. NEUROLOGIC EXAM: The patient is sedated. LABORATORY DATA: Reviewed. ASSESSMENT: 1. Sigmoid colon adenocarcinoma. She had a large mass in the sigmoid colon and biopsy showed moderately differentiated adenocarcinoma. She underwent resection in February of 2016 and final pathology showed poorly differentiated adenocarcinoma with mucinous features measuring 5.5 cm arising in the villous adenoma. There was large tumor deposit 6 cm in size within the pericolonic soft tissue. There was metastatic adenocarcinoma involving 11 out of 12 lymph nodes. Pathologic stage T2 N2b M0. She received adjuvant Xeloda in September of 2016. Recent evaluation did not show any evidence of recurrent disease. I do not think the current sepsis is related to her malignancy. 2. Nonspecific mediastinal lymph node. CT of the chest showed prominent lymph nodes in the subcarinal and precarinal areas. There is no other metastatic disease noted on the CT of the chest, abdomen and pelvis. The patient has pneumonia and this mediastinal adenopathy is likely reactive. We can continue to follow her for now and once the infection resolves, we could repeat CT for further evaluation. 3. Sepsis. CT of the abdomen showed bilateral hydronephrosis and sign of pyelonephritis. CT of the chest also showed possible pneumonia. She is currently on antibiotic per infectious disease. 4. Respiratory failure due to sepsis and pneumonia. The patient was just intubated this afternoon. PLAN: 1. Continue treatment of sepsis per laser operator and infectious disease. 2. No oncologic intervention planned at this time. 3. Would repeat CT of the chest in a month or two to evaluate mediastinal lymph nodes and this could be done as outpatient. Thank you Dr. Hawkins for asking me to see this patient. MD DENILSON Mondragon/CYNTHIA /7:11 PM /8:00 PM [facility]ITALCon[facility]
[2017-03-15] MEDS: SODIUM CHLORIDE 0.9% FLUSH 10 ML FLUSH IV FLUSH SCH (21:00)
[2017-03-15] MEDS ORDERED: SODIUM CHLORIDE 0.9% FLUSH 10 ML FLUSH IV FLUSH SCH (21:00)
[2017-03-15] MEDS ORDERED: AMIODARONE 200 MG TAB PO SCH (21:00)
[2017-03-15] MEDS: RESP: ALBUTEROL 2.5 MG/IPRATROPIUM 0.5 MG NEB (SCH) INH (21:21)
[2017-03-15] MEDS: MEROPENEM INJ 500 MG in SODIUM CHLORIDE 0.9% INJ 100 ML IV SCH (22:20)
[2017-03-15] MEDS: FAMOTIDINE 20 MG/2 ML VIAL IV PUSH SCH (22:20)
[2017-03-15] MEDS: DOCUSATE SODIUM 50 MG/SENNA 8.6 MG TAB PO SCH (22:21)
[2017-03-15] MEDS: HEPARIN SODIUM - SQ 10,000 UNITS/ML VIAL SQ SCH (22:23)
[2017-03-15] MEDS ORDERED: TERBUTALINE INJ 1 MG/ML AMP SQ PRN (22:45)
[2017-03-15] MEDS: NOREPINEPHRINE-DEXTROSE DRIP 250 ML IV PRN (22:51)
[2017-03-16] VITALS (38 sets, daily range): BP systolic 67–304; BP diastolic 44–299; PULSE 90–118; RESP 5–25; TEMP 99.5–101.4; O2SAT 97–100
[2017-03-16] MEDS: CHLORHEXIDINE GLUCONATE 2 % 1 PACK (2 CLOTHS) TOP SCH ×2 (00:47→22:22)
[2017-03-16 01:45] LABS: BLOOD GAS BASE EXCESS -6.4 mmol/L (-2-2); BLOOD GAS CARBOXYHEMOGLOBIN 1.7 % (0-4); BLOOD GAS HCO3 18 mmol/L (22-26); BLOOD GAS METHEMOGLOBIN 1.5 % (0-2); BLOOD GAS O2 HGB SATURATION 94 % (90-100); BLOOD GAS OXYGEN CONTENT 14.8 Vol % (12.0-20.0); BLOOD GAS PCO2 34 mmHg (38-42); BLOOD GAS PO2 92 mmHg (61-120); BLOOD GAS TOTAL HGB 11.2 G/DL (12.0-16.0); CRITICAL VALUE NO; DRAW SITE ART LINE; FIO2 40 %; OXYGEN DEVICE VENTILATOR; TEMP CORR TO 98.6; VENT SETTINGS AC 12/550/5PEEP
[2017-03-16 01:46] LABS: STAT YES
[2017-03-16] MEDS: SODIUM CHLOR 0.9% 1000 ML INJ 1,000 ML IV SCH (02:55)
[2017-03-16] MEDS: RESP: ALBUTEROL 2.5 MG/IPRATROPIUM 0.5 MG NEB (SCH) INH ×4 (03:55→19:22)
[2017-03-16] MEDS ORDERED: CHLORHEXIDINE GLUCONATE 2 % 1 PACK (2 CLOTHS) TOP SCH ×2 (04:00)
[2017-03-16] MEDS: MEROPENEM INJ 500 MG in SODIUM CHLORIDE 0.9% INJ 100 ML IV SCH ×2 (04:44→23:52)
[2017-03-16] MEDS: NOREPINEPHRINE-DEXTROSE DRIP 250 ML IV PRN ×4 (04:44→23:51)
[2017-03-16] MEDS: LEVOTHYROXINE SODIUM 50 MCG TAB PO SCH (04:46)
[2017-03-16] MEDS: HEPARIN SODIUM - SQ 10,000 UNITS/ML VIAL SQ SCH ×3 (04:46→20:15)
[2017-03-16 05:15] LABS: AUTOMATED NEUTROPHIL # 17.7 TH/MM3 (1.8-7.7); BASOPHIL % 0.2 % (0.0-2.0); HEMATOCRIT 33.7 % (35.0-46.0); HEMO FLAGS DIFF FINAL; LYMPH % 3.9 % (9.0-44.0); LYMPHOCYTE # 0.8 TH/MM3 (1.0-4.8); MEAN CORPUSCULAR HEMOGLOBIN 28.9 PG (27.0-34.0); MEAN CORPUSCULAR HGB CONC 32.9 % (32.0-36.0); MONO % 6.1 % (0.0-8.0); NEUT % 89.8 % (16.0-70.0); PLATELET COUNT 107 TH/MM3 (150-450); RED BLOOD COUNT 3.83 MIL/MM3 (4.00-5.30); RED CELL DISTRIBUTION WIDTH 15.8 % (11.6-17.2); WHITE BLOOD COUNT 19.7 TH/MM3 (4.0-11.0)
[2017-03-16 05:20] LABS: BICARBONATE 22.6 MEQ/L (21.0-32.0); MAGNESIUM 1.2 MG/DL (1.5-2.5); POTASSIUM 3.7 MEQ/L (3.5-5.1)
[2017-03-16 05:26] LABS: CALCIUM-PROTEIN CORRECTED 7.6 MG/DL (8.5-10.1); TOTAL BILIRUBIN ADULT 1.2 MG/DL (0.2-1.0)
[2017-03-16] MEDS: ACETAMINOPHEN 325 MG TAB PO PRN ×3 (05:33→22:18)
--- NOTE | 2017-03-16 06:23 | RADRPT ---
EXAM DATE/TIME: 03/16/2017 04:58 [facility] COMPARISON: CHEST SINGLE AP, March 15, 2017, 14:30. INDICATIONS : Shortness of breath, possible pulmonary disease. MEDICAL HISTORY : Carcinoma, colon. Hypertension Cardiovascular disease. Diabetes CVA SURGICAL HISTORY : Appendectomy. section. Hernia repair ENCOUNTER: Subsequent ACUITY: 2 days PAIN SCORE: Non-responsive. LOCATION: Bilateral chest FINDINGS: ET tube tip well above the angelica. Right [id number] catheter tip in the distal superior vena cava . Gastric tube traverses the [id number]. Persisting consolidation left hilar and left lower lung with loss of delineation entire left hemidiaphragm. Fullness in the right hilum with improved infil trates the right lower lung. Heart is mildly enlarged. CONCLUSION: Persisting consolidation left mid and lower lung and improving infiltrates in the lower right lung. Antonio Voss MD on March 16, 2017 at 6:21 Board Certified Radiologist. This report was verified electronically.
[2017-03-16 06:43] LABS: LACTIC ACID GHOST NOT REPORTABLE
--- NOTE | 2017-03-16 08:56 | HHI.FPPN ---
Subjective Remarks Patient hypotensive overnight with MAP in the 50-60s. She was started on vasopressin and Levophed drips. She was febrile up to 101.1 overnight. She is currently intubated with an FiO2 of 40 and a PEEP of 5. There is some difficulty balancing trying to maintain sedation and maintaining adequate blood pressure. Gallo catheter draining 470 mL in the past 24 hours. Objective Vitals Vital Signs Date Time Temp Pulse Resp B/P (MAP) Pulse Ox O2 Delivery O2 Flow Rate FiO2 03/16/17 07:08 99 40 03/16/17 07:00 19 03/16/17 06:00 101 03/16/17 06:00 94 107/53 (71) 90/58 (69) 03/16/17 05:15 110 6 129/60 (83) 97 129/116 (120) 03/16/17 05:00 118 16 134/60 (84) 98 91/56 (68) 03/16/17 04:45 114 23 151/85 (107) 98 107/67 (80) 03/16/17 04:44 107 83/50 03/16/17 04:30 109 19 104/55 (71) 97 79/52 (61) 03/16/17 04:15 116 5 97/53 (68) 97 82/70 (74) 03/16/17 04:10 98 40 03/16/17 04:00 40 03/16/17 04:00 99.9 115 9 101/52 (68) 98 130/121 (124) 03/16/17 04:00 115 03/16/17 03:45 113 7 112/58 (76) 97 88/83 (85) 03/16/17 03:30 112 11 113/56 (75) 98 84/52 (63) 03/16/17 03:15 112 15 116/56 (76) 97 107/75 (86) 03/16/17 03:00 109 20 104/55 (71) 97 217/212 (214) 03/16/17 02:45 109 19 111/56 (74) 98 86/50 (62) 03/16/17 02:30 115 16 122/58 (79) 97 102/64 (77) 03/16/17 02:16 114 21 112/83 (93) 304/299 (301) 03/16/17 02:00 115 03/16/17 02:00 115 20 115/62 (79) 98 93/54 (67) 03/16/17 01:45 107 10 112/57 (75) 100 249/249 (249) 03/16/17 01:30 113 25 110/54 (72) 98 88/53 (65) 03/16/17 01:15 105 21 100/56 (71) 98 87/50 (62) 03/16/17 01:07 100 40 03/16/17 01:00 105 19 90/54 (66) 99 67/62 (64) 03/16/17 00:45 104 20 90/53 (65) 99 74/46 (55) 03/16/17 00:30 102 12 90/52 (65) 99 72/44 (53) 03/16/17 00:15 101 14 90/54 (66) 100 76/47 (57) 03/16/17 00:00 100.8 106 13 95/54 (68) 100 81/49 (60) 03/16/17 00:00 40 03/16/17 00:00 106 03/15/17 23:45 103 15 86/51 (63) 99 77/46 (56) 03/15/17 23:42 99 10 91/53 (66) 99 69/60 (63) 03/15/17 23:30 109 20 109/54 (72) 99 134/128 (130) 03/15/17 23:15 102 20 91/50 (64) 100 71/51 (58) 03/15/17 23:00 107 16 89/49 (62) 99 76/49 (58) 03/15/17 22:51 108 61/43 03/15/17 22:45 107 18 91/43 (59) 100 60/41 (47) 03/15/17 22:30 110 14 87/53 (64) 100 89/73 (78) 03/15/17 22:00 112 20 93/51 (65) 99 69/45 (53) 03/15/17 22:00 112 03/15/17 21:30 109 15 81/47 (58) 100 66/43 (51) 03/15/17 21:00 106 23 79/48 (58) 100 72/45 (54) 03/15/17 20:30 115 23 84/46 (59) 100 70/42 (51) 03/15/17 20:15 114 25 80/46 (57) 100 74/43 (53) 03/15/17 20:14 116 73/43 03/15/17 20:09 115 25 73/47 (56) 100 81/45 (57) 03/15/17 20:00 50 03/15/17 20:00 99.7 119 30 97/53 (68) 100 93/49 (64) 03/15/17 20:00 119 03/15/17 19:45 112 20 83/53 (63) 100 87/46 (60) 03/15/17 19:30 115 14 86/50 (62) 100 89/44 (59) 03/15/17 19:15 107 15 89/54 (66) 99 88/45 (59) 03/15/17 19:00 111 24 93/52 (66) 99 88/47 (61) 03/15/17 18:00 101.1 105 26 90/52 (65) 100 98/45 (62) 03/15/17 17:00 105 30 88/52 (64) 100 88/46 (60) 03/15/17 16:00 109 30 88/51 (63) 97 102/50 (67) 03/15/17 15:00 124 12 140/67 (91) 95 03/15/17 14:29 92 50 03/15/17 14:00 130 40 127/95 (106) 90 03/15/17 13:00 103 29 131/80 (97) 92 03/15/17 12:00 105 34 120/65 (83) 99 03/15/17 12:00 105 03/15/17 11:44 03/15/17 11:35 98.7 105 28 123/75 (91) 94 03/15/17 11:35 105 03/15/17 10:34 94 Nasal Cannula 4.00 03/15/17 10:30 110 20 125/70 (88) 95 Nasal Cannula 4.00 03/15/17 09:30 115 20 131/82 (98) 94 Nasal Cannula 4.00 I/O 03/15/17 03/15/17 03/15/17 03/16/17 03/16/17 03/16/17 07:00 15:00 23:00 07:00 15:00 23:00 Intake Total 1000 ml 2700 ml 1000 ml 1625.6 ml Output Total 300 ml 170 ml Balance 1000 ml 2700 ml 700 ml 1455.6 ml Intake IV Total 1000 ml 2700 ml 1000 ml 1445.6 ml Tube Irrigant 180 ml Output Urine Total 300 ml 170 ml # Voids 4 Result Diagram: 03/16/17 0436 03/16/17 0436 Imaging Last Impressions Chest X-Ray 03/16/17 0600 Signed Impressions: Service Date/Time: Thursday, March 16, 2017 04:58 - CONCLUSION: Persisting consolidation left mid and lower lung and improving infiltrates in the lower right lung. Antonio Voss MD CT Angiography 03/15/17 0520 Signed Impressions: Service Date/Time: Wednesday, March 15, 2017 07:46 - CONCLUSION: 1. No evidence for pulmonary embolism. 2. Cardiomegaly with enlargement of pulmonary arteries likely from pulmonary arterial hypertension. 3. Bibasilar patchy densities could be atelectasis or infiltrate. 4. Mosaic attenuation which can be seen with small airway disease. 5. Enlarged precarinal and subcarinal adenopathy. Jai Queen MD Head CT 03/15/17 0000 Signed Impressions: Service Date/Time: Wednesday, March 15, 2017 07:47 - CONCLUSION: No acute intracranial disease. Jai Queen MD Abdomen/Pelvis CT 03/15/17 0000 Signed Impressions: Service Date/Time: Wednesday, March 15, 2017 07:51 - CONCLUSION: 1. Bilateral hydronephrosis with extensive stranding in the perinephric regions greater on the left. 2. Mild circumferential wall thickening within the bladder with mild distention. 3. Postsurgical changes rectosigmoid junction. 4. Small fat containing abdominal wall hernias. Jai Queen MD Objective Remarks GENERAL: Well-nourished, well-developed obese female. Sedated and intubated. SKIN: Warm and dry. HEAD: Normocephalic. EYES: No scleral icterus. No injection or drainage. NECK: Supple, trachea midline. No JVD or lymphadenopathy. CARDIOVASCULAR: Irregularly irregular rate and rhythm without murmurs, gallops, or rubs. RESPIRATORY: Breath sounds equal bilaterally. No accessory muscle use. GASTROINTESTINAL: Abdomen soft, non-tender, mildly distended. Bowel sounds present and active. MUSCULOSKELETAL: No cyanosis, 2+ pitting edema in lower extremities bilaterally Urinary Catheter: Yes Assessment to: Continue Gallo insert reason: Prolonged Immobilization Date of Insertion: Mar 15, 2017 A/P Assessment and Plan Patient is a 71 year old female with a PMH significant for colon cancer s/p chemotherapy, atrial fibrillation on Eliquis, HTN, DM type 2, and MDD who presented to the ED with abdominal pain, nausea and vomiting and was found to have severe sepsis secondary to PNA and pyelonephritis in addition to atrial fibrillation with RVR. She rapidly decompensated into respiratory failure and was intubated on 03/15, now in critical condition with septic shock. Discharge Planning Unclear timetable, patient in critical condition. dw Dr. Ambrosio Problem List: (1) Sepsis due to Gram-negative organism with septic shock ICD Codes: A41.50 - Gram-negative sepsis, unspecified; R65.21 - Severe sepsis with septic shock Status: Acute Plan: Neurologic: AMS-toxic encephalopathy secondary to sepsis History of TIA x 2 Major Depressive Disorder Neurochecks per ICU protocol Patient intubated for airway protection continues on propofol and fentanyl infusions for ventilator synchrony Ammonia elevated at 67 on admission, trending down to 43 today, continue lactulose 03/15 CT brain-no intracranial abnormality Neurology consulted-Dr. Gardner patient's personal neurologist Daily sedation vacation Respiratory: Acute Hypoxemic respiratory failure Pulmonary hypertension Carinal adenopathy 03/15 Patient intubated emergently, FiO2 40, PEEP 5 Maintain O2 sat greater than 92% Ventilator bundle Duonebs Q6H scheduled and Q2H when necessary 03/15 CT angiogram -pulmonary hypertension, no PE, enlarged precarinal and subcarinal lymphadenopathy 03/16 CXR shows persisting consolidation left mid and lower lung and improving infiltrates in the lower right lung Obtain 2D echo, pulmonary HTN not present on last echo in 2014 Cardiovascular: A. fib RVR Hypertension Patient initially on Cardizem infusion-heart rate now in 110's, discontinued for MAP < 60 Amiodarone 200mg PO BID, increased from daily Last echo 02/05- ejection fraction 55-60%. No RWMA. APA 35 mmHg, TV mild regurg, MV mild regurg Repeat echo EPS- Dr. Lubin consulted Renal: Bilateral hydronephrosis Pyelonephrosis Continue Gallo catheter, output 470ml in past 24 hours 03/14-CT of the abdomen and pelvis-bilateral hydronephrosis, pyelonephrosis, perinephric stranding -- Strict I/Os Urology consulted- obtain Lasix renogram to rule out obstruction. If obstructed will need bilateral nephrostomy tubes. FEN/GI: History of colon cancer status post chemotherapy and colectomy Abdominal hernia NPO NGT to LIWS Heme/ID: Septic Shock due to gram negative carmela Community-acquired multilobar pneumonia Pyelonephritis Lactic acidemia Bandemia 03/15 Blood cultures growing Gram-negative rods Follow-up urine culture and sputum culture legionella and streptococcus antigens negative ID consulted - Dr. Hansen, treat with Vanc, IV Merem and Levaquin for GNR Heme- Onc consulted regarding carinal adenopathy lymphadenopathy, patient is S/ P completion of chemotherapy 09/2016. Repeat CT chest in 1-2 months to evaluate mediastinal lymph nodes as outpatient Trend lactate level 6.4->4.2->4.9->3.0 Endocrine: Diabetes mellitus Hypothyroidism High-dose SSI Continue Levothyroxine 50 mcgs/day Prophylaxis: GI Prophylaxis with famotidine BID DVT Prophylaxis with SCDs and Heparin 5000u Q8H Lines: Port right chest, peripheral IVs 2, left radial A-line (2) Pyelonephritis ICD Codes: N12 - Tubulo-interstitial nephritis, not specified as acute or chronic (3) PNA (pneumonia) ICD Codes: J18.9 - Pneumonia, unspecified organism (4) Atrial fibrillation with rapid ventricular response ICD Codes: I48.91 - Atrial fibrillation with rapid ventricular response Status: Acute (5) Diabetes mellitus, type II ICD Codes: E11.9 - Type 2 diabetes mellitus Status: Chronic (6) Hypertension ICD Codes: I10 - Essential (primary) hypertension Status: Chronic (7) Hypothyroidism ICD Codes: E03.9 - Hypothyroidism Status: Acute (8) Nutrition, metabolism, and development symptoms ICD Codes: R63.8 - Symptoms concerning nutrition, metabolism, and development Status: Acute Problem Qualifiers (1) PNA (pneumonia): Qualified Codes: J18.9 - Pneumonia, unspecified organism (2) Diabetes mellitus, type II: Qualified Codes: E11.9 - Type 2 diabetes mellitus without complications; Z79.4 - intelligence intern (current) use of insulin (3) Hypertension: Qualified Codes: I10 - Essential (primary) hypertension (4) Hypothyroidism: Qualified Codes: E03.9 - Hypothyroidism, unspecified Fanta Hawkins MD, R3 Mar 16, 2017 08:56
[2017-03-16] MEDS: CAPTOPRIL 25 MG TAB PO SCH (09:00)
[2017-03-16] MEDS ORDERED: AMIODARONE 200 MG TAB PO SCH (09:00)
[2017-03-16] MEDS: AMIODARONE 200 MG TAB PO SCH ×2 (09:00→20:14)
[2017-03-16] MEDS ORDERED: PANTOPRAZOLE SOD 40 MG DELAYED RELEASE TAB PO SCH (09:00)
[2017-03-16] MEDS: VENLAFAXINE HCL XR 75 MG CAP PO SCH (09:00)
[2017-03-16] MEDS ORDERED: POTASSIUM PHOSPHATE MONOBASIC 500 MG TAB PO/TUBE PRN (09:45)
[2017-03-16] MEDS ORDERED: SODIUM PHOSPHATE INJ 30 MMOL in SODIUM CHLOR 0.9% 250 ML INJ 240 ML IV PRN (09:45)
[2017-03-16] MEDS ORDERED: POTASSIUM CHLOR 20 MEQ PREMIX 100 ML IV PRN ×2 (09:45)
[2017-03-16] MEDS ORDERED: MAGNESIUM SULFATE INJ 2 GM in SODIUM CHLORIDE 0.9% INJ 96 ML IV PRN (09:45)
[2017-03-16] MEDS ORDERED: POTASSIUM PHOSPHATE INJ 30 MMOL in SODIUM CHLOR 0.9% 250 ML INJ 250 ML IV PRN (09:45)
[2017-03-16] MEDS ORDERED: MAGNESIUM SULFATE INJ 4 GM in SODIUM CHLORIDE 0.9% INJ 92 ML IV PRN (09:45)
[2017-03-16] MEDS ORDERED: MAGNESIUM OXIDE 400 MG TAB PO PRN (09:45)
[2017-03-16] MEDS ORDERED: POTASSIUM PHOSPHATE MONOBASIC 500 MG TAB PO PRN (09:45)
[2017-03-16] MEDS ORDERED: POTASSIUM CHLORIDE 25 MEQ EFFERVESCENT TAB PO PRN (09:45)
[2017-03-16] MEDS ORDERED: POTASSIUM CHLOR 40 MEQ PREMIX 100 ML IV PRN (09:45)
[2017-03-16] MEDS ORDERED: VANCOMYCIN INJ 1,700 MG in SODIUM CHLORID 0.9% 500 ML INJ 500 ML IV SCH (10:00)
[2017-03-16] MEDS: DOCUSATE SODIUM 50 MG/SENNA 8.6 MG TAB PO SCH ×2 (10:06→20:14)
[2017-03-16] MEDS: BUMETANIDE INJ 1 MG/4 ML VIAL IV PUSH SCH ×2 (10:06→17:28)
[2017-03-16] MEDS: PRAVASTATIN SOD 40 MG TAB PO SCH (10:06)
[2017-03-16] MEDS: CHOLESTYRAMINE 4 GM PACKET PO SCH (10:06)
[2017-03-16] MEDS: HYDROCORTISONE SOD SUCCINATE 100 MG VIAL IV PUSH SCH ×3 (10:09→23:57)
[2017-03-16] MEDS: LACTULOSE SYRUP 20 GM/30 ML CUP NG SCH (10:11)
[2017-03-16] MEDS: SODIUM CHLORIDE 0.9% FLUSH 10 ML FLUSH IV FLUSH SCH ×2 (10:15→20:15)
[2017-03-16] MEDS: FAMOTIDINE 20 MG/2 ML VIAL IV PUSH SCH (10:15)
[2017-03-16] MEDS: ARTIFICIAL TEARS OPTH SOLN 15 ML BTL EACH EYE SCH ×3 (10:16→17:28)
--- NOTE | 2017-03-16 10:22 | HHI.CCPN ---
Subjective Remarks/Hospital Course This is a 71 year old female with a PMH significant for colon cancer s/p chemotherapy, atrial fibrillation previously on Eliquis discontinued for GI bleeding, HTN, DM type 2, and MDD who presented to the ED with abdominal pain, nausea and vomiting.The patient stated that she had pain in her left side this morning that radiated to her lower abdomen and caused her to have nausea and vomiting. She states that she has been short of breath for the past 3 weeks and progressively more fatigued. Her states that she has been becoming progressively weaker and sleeping excessively at times. At 3AM this morning, he noticed that she was trying to talk but "wasn't making any sense." He states that she has been so short of breath that she has been having difficulty finishing sentences without becoming short of breath. She notes dysuria, urinary urgency and frequency for the past 3-4 days. Imaging studies and laboratory studies were performed. Notably CTA of the chest reveal pulmonary hypertension and carinal lymphadenopathy. CT abdomen and pelvis revealed bilateral hydronephrosis and pyelonephrosis with perinephric stranding. Cultures were sent, the patient was noted to have bacteremia notably gram- negative rods. The patient was in A. fib RVR in the ED the patient received Cardizem bolus and was placed on a Cardizem infusion and transferred to ICU. Upon admission to ICU the patient became progressively short of breath with escalating alternation in mental status critical care medicine was consulted. The patient's heart rate at that time was in the 130s systolic pressure 140s and O2 sat high 80s. Brief discussion with purpose of emergent intubation. Subjective: 03/16: Overnight the patient continued to have hemodynamic instability, now septic shock. Patient continues in A. fib with HR low 100's. Patient on maximum doses currently of norepinephrine and vasopressin infusions. Kinsley- cortisone added to medication regimen, Sodium bicarbonate infusion initiated. Imaging revealed hydronephrosis and pyelonephrosis patient seen by Dr. Larose, urine output now decreased to 150cc total over the last 12hrs, with continued elevation in creatinine. Planned renogram this a.m., to rule out obstruction with possible placement of nephrostomy tubes, and nephrology also consulted. Patient was seen by Dr. Candelario, carinal /hilar lymphadenopathy most likely not associated with carcinoma, plan for outpatient scan in 2-3 months. FiO2 was decreased to 60% overnight, ECHO pending her evaluation of cardiac status and pulmonary hypertension. Objective Vital Signs Date Time Temp Pulse Resp B/P (MAP) Pulse Ox O2 Delivery O2 Flow Rate FiO2 03/16/17 07:08 99 40 03/16/17 07:00 19 03/16/17 06:00 101 03/16/17 06:00 107/53 (71) 90/58 (69) 03/16/17 04:00 99.9 03/15/17 10:34 Nasal Cannula 4.00 Intake and Output 03/16/17 03/16/17 03/17/17 08:00 16:00 00:00 Intake Total 1625.6 ml Output Total 170 ml Balance 1455.6 ml Result Diagram: 03/16/17 0436 03/16/17 0436 Other Results Microbiology Date/Time Source Procedure Growth Status 03/15/17 06:03 Urine Random Urine Legionella Antigen - Final PRESUMPTIVE NEGATIVE FOR LEGIONELLA P... Complete 03/15/17 06:03 Urine Random Urine Streptococcus pneumoniae Antigen (M - Final PRESUMPTIVE NEGATIVE FOR STREPTOCOCCU... Complete Laboratory Tests Test 03/15/17 10:22 03/15/17 14:31 03/15/17 17:32 03/16/17 01:31 Blood Gas Puncture Site RT RADIAL RT RADIAL ART LINE ART LINE Blood Gas Patient Temperature 98.6 98.6 98.6 98.6 Blood Gas HCO3 19 mmol/L (22-26) 20 mmol/L (22-26) 19 mmol/L (22-26) 18 mmol/L (22-26) Blood Gas Base Excess -4.8 mmol/L (-2-2) -7.9 mmol/L (-2-2) -5.4 mmol/L (-2-2) -6.4 mmol/L (-2-2) Blood Gas Oxygen Saturation 94 % (90-100) 91 % (90-100) 97 % (90-100) 94 % ( 90-100) Arterial Blood pH 7.41 (7.380-7.420) 7.10 (7.380-7.420) 7.38 (7.380-7.420) 7.35 (7.380-7.420) Arterial Blood Partial Pressure CO2 31 mmHg (38-42) 69 mmHg (38-42) 33 mmHg (38-42) 34 mmHg (38-42) Arterial Blood Partial Pressure O2 79 mmHG (61-120) 98 mmHg (61-120) 232 mmHg (61-120) 92 mmHg (61-120) Arterial Blood Oxygen Content 16.4 Vol % (12.0-20.0) 16.0 Vol % (12.0-20.0) 15.8 Vol % (12.0-20.0) 14.8 Vol % (12.0-20.0) Arterial Blood Carboxyhemoglobin 1.4 % (0-4) 1.2 % (0-4) 1.6 % (0-4) 1.7 % (0-4) Arterial Blood Methemoglobin 0.7 % (0-2) 1.3 % (0-2) 1.3 % (0-2) 1.5 % (0-2) Blood Gas Hemoglobin 12.4 G/DL (12.0-16.0) 12.4 G/DL (12.0-16.0) 11.2 G/DL (12.0-16.0) 11.2 G/DL (12.0-16.0) Oxygen Delivery Device NASAL CANNULA VENTILATOR VENTILATOR VENTILATOR Blood Gas Liter Flow 4 L/M Blood Gas Ventilator Setting VOL/AC 550/12/PEEP 5 AC 12/550/5PEEP Blood Gas Inspired Oxygen 50 % 80 % 40 % Imaging Last Impressions Chest X-Ray 03/16/17 0600 Signed Impressions: Service Date/Time: Thursday, March 16, 2017 04:58 - CONCLUSION: Persisting consolidation left mid and lower lung and improving infiltrates in the lower right lung. Antonio Voss MD CT Angiography 03/15/17 0520 Signed Impressions: Service Date/Time: Wednesday, March 15, 2017 07:46 - CONCLUSION: 1. No evidence for pulmonary embolism. 2. Cardiomegaly with enlargement of pulmonary arteries likely from pulmonary arterial hypertension. 3. Bibasilar patchy densities could be atelectasis or infiltrate. 4. Mosaic attenuation which can be seen with small airway disease. 5. Enlarged precarinal and subcarinal adenopathy. Jai Queen MD Head CT 03/15/17 0000 Signed Impressions: Service Date/Time: Wednesday, March 15, 2017 07:47 - CONCLUSION: No acute intracranial disease. Jai Queen MD Abdomen/Pelvis CT 03/15/17 0000 Signed Impressions: Service Date/Time: Wednesday, March 15, 2017 07:51 - CONCLUSION: 1. Bilateral hydronephrosis with extensive stranding in the perinephric regions greater on the left. 2. Mild circumferential wall thickening within the bladder with mild distention. 3. Postsurgical changes rectosigmoid junction. 4. Small fat containing abdominal wall hernias. Jai Queen MD Last Impressions Chest X-Ray 03/15/17519 Signed Impressions: Service Date/Time: Wednesday, March 15, 2017 05:41 - CONCLUSION: Opacity in the perihilar region bilaterally suggesting either central infiltrates or adenopathy. Antonio Voss MD CT Angiography 03/15/17519 Signed Impressions: Service Date/Time: Wednesday, March 15, 2017 07:46 - CONCLUSION: 1. No evidence for pulmonary embolism. 2. Cardiomegaly with enlargement of pulmonary arteries likely from pulmonary arterial hypertension. 3. Bibasilar patchy densities could be atelectasis or infiltrate. 4. Mosaic attenuation which can be seen with small airway disease. 5. Enlarged precarinal and subcarinal adenopathy. Jai Queen MD Head CT 03/15/17 0000 Signed Impressions: Service Date/Time: Wednesday, March 15, 2017 07:47 - CONCLUSION: No acute intracranial disease. Jai Queen MD Abdomen/Pelvis CT 03/15/17 0000 Signed Impressions: Service Date/Time: Wednesday, March 15, 2017 07:51 - CONCLUSION: 1. Bilateral hydronephrosis with extensive stranding in the perinephric regions greater on the left. 2. Mild circumferential wall thickening within the bladder with mild distention. 3. Postsurgical changes rectosigmoid junction. 4. Small fat containing abdominal wall hernias. Jai Queen MD Objective Remarks GENERAL: Obese critically ill-appearing female , sedated and intubated. SKIN: Warm and dry. HEAD: Atraumatic. Normocephalic. EYES: Pupils equal and round. No scleral icterus. No injection or drainage. ENT: No nasal bleeding or discharge. Mucous membranes pink and moist. NECK: Trachea midline. No JVD. CARDIOVASCULAR: Irregularly irregular rhythm. RESPIRATORY: Mechanical ventilation. Clear to auscultation. Breath sounds equal bilaterally. GASTROINTESTINAL: Abdomen soft, protuberant non-tender, nondistended. No guarding. MUSCULOSKELETAL: Extremities without clubbing, cyanosis, or edema. No obvious deformities. NEUROLOGICAL: GCS 11T .RASS 0. No gross focal/sensory deficits. Follows commands, moves extremities 4 Procedures 03/16- Renogram Date of Insertion: Mar 15, 2017 A/P Assessment and Plan Neurologic: Altered mental status-toxic encephalopathy History of right pontine CVA History of TIAs post CVA Major Depressive Disorder Neurochecks per ICU protocol 03/15Patient intubated for airway protection continues on Versed and fentanyl infusions for ventilator synchrony Ammonia level trending down 03/15 CT brain-no intracranial abnormality Daily sedation vacation [id number] not responding to commands, with RASS of -2 Respiratory: Acute Hypoxemic respiratory failure Pulmonary hypertension Carinal adenopathy 03/14 Patient intubated emergently 7.5 ET T 22 cm at the lip Maintain O2 sat greater than 92%, currently FiO2 60% Ventilator bundle Bronchodilators every 6 hours scheduled and every 2 hours when necessary 03/14 CT angiogram -pulmonary hypertension, no PE, enlarged precarinal and subcarinal lymphadenopathy, per hematology oncology Dr. Candelario-repeat CTA on outpatient basis in 2-3 months Chest x-rays ABGs when clinically indicated- CXR improving infiltrate Cardiovascular: A. fib RVR Hypertension Septic shock Patient currently on Levophed 12 mcgs and Vasopressin 0.04 , maintain MAP > 65mmHG Patient's home med amiodarone 200 mg daily increased to 400 mg twice a day Last echo 01/2015- ejection fraction 55-60%. No RWMA. PAP 35 mmHg, TV mild regurg ,MV mild regurg Repeat echo- F/U results EPS- Dr. Lubin consulted Renal: Bilateral hydronephrosis Pyelonephrosis Insert and maintain Gallo catheter 03/14-CT of the abdomen and pelvis-bilateral hydronephrosis, pyelonephrosis,with perinephric stranding Urology following- Dr. Larose-plan for renogram this afternoon for possible placement of percutaneous nephrostomy tubes if clinically indicated 2/2 obstructive process Continued elevation in creatinine, nephrology also consulted -- Strict I/Os FEN/GI: History of colon cancer status post chemotherapy (last dose 06/2016) Abdominal hernia Nothing by mouth for now NGT to LIWS Bowel regimen Heme/ID: Septic shock Community-acquired multilobar pneumonia Lactic acidemia Bandemia Blood cultures Gram-negative rods Follow-up urine culture and sputum culture ID consulted - Dr. Hansen Empiric antibiotics include vancomycin, Zosyn and patient received 1 dose of Rocephin in the ED, meropenem added Heme- Onc consulted regarding carinal lymphadenopathy, patient is S/P completion of chemotherapy 06/2016. Plan for repeat CTA in 2-3 month on outpatient basis Downtrending lactate level 4.2->3.0 Endocrine: Diabetes mellitus Hypothyroidism High-dose medication regimen Continue Levothyroxine 50 mcgs/day -- SSI Prophylaxis: GI Prophylaxis DC Protonix, famotidine twice a day DVT Prophylaxis -- SCDs Heparin 5000u BID Lines: Port right chest, peripheral IVs 2, left radial A-line Dispo: This patient remains critically ill with one or more organ systems which are or may become a threat to life. I have spent in excess of 49 minutes discontinuously in the care and management of this patient. This time is exclusive of procedures, and includes, but is not limited to, evaluation of the patient, review of the medical record, discussions with family, consultants, nursing staff, or respiratory therapy, and documentation in the medical record. Physician Oksana Issa MD Mar 16, 2017 10:22
[2017-03-16] MEDS: INSULIN ASPART SUPPLEMENTAL SCALE SQ SCH ×4 (10:33→20:22)
--- NOTE | 2017-03-16 11:01 | MB ---
cc: BANG HUFF M.D. DATE OF CONSULTATION: 03/16/2017 REASON FOR CONSULTATION: Shauna Marroquin she is a 71-year-old woman seen because of encephalopathy, altered mental status. HISTORY: The patient was brought to the hospital yesterday admitted with diagnosis of sepsis. She is 71-year-old with history of colon cancer being treated with chemotherapy, atrial fibrillation on Eliquis, diabetes, hypertension. She came in with abdominal pain, nausea, vomiting. She progressed quickly and required intubation. PHYSICAL EXAMINATION: She he is seen in the intensive care unit, sedated, unable to participate in the exam in any more significant manner. The pupils were about same size, mildly reactive. Eyes in midline. with some moderate somatosensory stimulation. The patient started opening the eyes and started withdrawing all four limbs. Reflexes were absent throughout, plantar responses flexor on the left and equivocal on the right. RADIOLOGIC: A CT brain yesterday was negative for acute process. LABORATORY DATA WBC 7.1 yesterday and 19.7 today. Platelets 143 yesterday and 107 today. Hemoglobin 13.9 yesterday and 11.1 today. Sodium 135, potassium 3.7, BUN 27, creatinine 1.66, glucose 208, this from today. Calcium 6.9 and corrected calcium 7.6. ASSESSMENT: Altered mental status / metabolic encephalopathy / sepsis. Multiple medical problems. CT brain negative do this is a somewhat limited procedure for a more in depth neurologic evaluation in this setting. Depending upon clinical course, progression of her overall condition, will consider an MRI brain within the next few days. She is now being followed by multiple other specialists including infectious disease, hematology / oncology. And I will follow the neurological care. Thank you for asking us to participate in her care. Bang Huff MD [facility]/ /8:52 AM /10:51 AM
--- NOTE | 2017-03-16 11:10 | OTSOAPIP ---
TIME SESSION COMPLETED: 11 AM TREATMENT TIME: 0 MINS. CHART REVIEWED. S: PAIN: /10 PATIENT NOW IN 511. INTUBATED AND VENTILATED. RN REQUESTS TO HOLD THIS DATE. JT Therapist: Magy Mei OTR/L Signature on file
[2017-03-16] MEDS: VASOPRESSIN INJ 40 UNITS in DEXTROSE 5% IN WATER 100ML INJ 98 ML IV SCH ×2 (11:18)
[2017-03-16] MEDS: SODIUM BICARBONATE 8.4% INJ 150 MEQ in SODIUM CHLOR 0.9% 1000 ML INJ 850 ML IV SCH ×2 (11:40→23:50)
--- NOTE | 2017-03-16 11:57 | RADRPT ---
EXAM DATE/TIME: 03/16/2017 11:27 [facility] COMPARISON: CT ABDOMEN & PELVIS W CONTRAST, March 15, 2017, 7:51. INDICATIONS : Hydronephrosis. MEDICAL HISTORY : Hypertension. Cerebrovascular disease. Dyspnea. Carcinoma, colon. Atrial fibrillation. SURGICAL HISTORY : section. Appendectomy. Hernia repair. ENCOUNTER: Initial ACUITY: 1 day PAIN SCORE: Nonresponsive. LOCATION: Bilateral flank MEASUREMENTS: RIGHT KIDNEY: 12.7 x 5.3 x 5.8 cm LEFT KIDNEY: 13.3 x 6.5 x 7.2 cm FINDINGS: RIGHT KIDNEY: Renal cortex is normal in thickness and echotexture. No significant hydronephrosis, stone, or mass. There is mild fullness of the collecting system. LEFT KIDNEY: Renal cortex is normal in thickness and echotexture. No hydronephrosis, stone, or mass. BLADDER: Urinary bladder is decompressed with a Gallo catheter in place. CONCLUSION: The hydronephrosis has resolved. Urinary bladder is decompressed.. Jose Flores MD on March 16, 2017 at 11:54 Board Certified Radiologist. This report was verified electronically.
[2017-03-16] MEDS ORDERED: CALCIUM GLUCONATE INJ 2 GM in SODIUM CHLORIDE 0.9% INJ 100 ML IV ONE (12:00)
--- NOTE | 2017-03-16 12:33 | HHI.IDPN ---
Subjective Subjective Remarks Patient is a 71-year-old female, admitted to the hospital for evaluation of abdominal pain, nausea and vomiting. She apparently has been complaining of left-sided abdominal pain goes down to the lower abdomen. She also started having nausea and vomiting. There was mention of some dysuria, urgency and frequency in the last 3-4 days. Patient also apparently has been having problem with shortness of breath over the last 3 weeks, and generalized weakness and easy fatigability. There was no mention of any fever or chills or sweats. On the morning of admission, the patient was noted to be confused, and was having more shortness of breath. There is no mention of any cough or congestion, or any complaint of any chest pain. Patient was brought into the hospital for further evaluation and treatment. Patient has had imaging studies done. CTA did not show any pulmonary embolism. CT of the abdomen and pelvis showing some mild bilateral hydronephrosis and some perinephric stranding. Her UA has pyuria. 2 blood cultures on admission are now reported as growing gram-negative jose. Her WBC is normal. Creatinine is 1.32. Patient went into significant respiratory distress, and ended up getting intubated. She has received Zosyn, and vancomycin. Neurology has been consult. Infectious disease consultation requested to evaluate the patient with severe sepsis. Notes reviewed D/W RN Temps ok On pressors since last night - levophed and vasopressin Sedated on the vent Creatinine rising WBC up to 19K Renal US - hydronephrosis resolved CXR - R infiltrates better, L same BC and UC with GNR Sputum C/S pending Monitor shows atrial fib Antibiotics Meropenem Vancomycin Levaquin Lines Port Past Medical History Atrial fibrillation (ablation x 2 in 2013) Eliquis stopped on 12/2015 for GI bleed Colon Cancer (sigmoid colon adenocarcinoma) Compression Fracture (12/2015 L3) Depression DM Type 2 Hyperlipidemia Hypertension Hypothyroidism TIA x 2 in 2014 Past Surgical History Abdominal surgery- exploratory laparotomy Sigmoid colectomy, low anterior resection, repair of ventral hernia, 2016 [id number] placement Previous cardiac ablation for atrial fibrillation Appendectomy Section x 2 EGD 12/2015 Flexible sigmoidoscopy 12/2015 Hernia repair Colonoscopy 2016 Allergies: Coded Allergies: codeine (Unverified Allergy, Severe, Nausea/Vomiting, 03/15/17) Uncoded Allergies: METAL (Allergy, Intermediate, hives, 03/08/16) SURGICAL STEEL (Allergy, Intermediate, hives, 03/08/16) Objective . Vital Signs Date Time Temp Pulse Resp B/P (MAP) Pulse Ox O2 Delivery O2 Flow Rate FiO2 03/16/17 11:18 108 116/56 03/16/17 10:19 100 60 03/16/17 07:08 99 40 03/16/17 07:00 19 03/16/17 06:00 101 03/16/17 06:00 94 107/53 (71) 90/58 (69) 03/16/17 05:15 110 6 129/60 (83) 97 129/116 (120) 03/16/17 05:00 118 16 134/60 (84) 98 91/56 (68) 03/16/17 04:45 114 23 151/85 (107) 98 107/67 (80) 03/16/17 04:44 107 83/50 03/16/17 04:30 109 19 104/55 (71) 97 79/52 (61) 03/16/17 04:15 116 5 97/53 (68) 97 82/70 (74) 03/16/17 04:10 98 40 03/16/17 04:00 40 03/16/17 04:00 99.9 115 9 101/52 (68) 98 130/121 (124) 03/16/17 04:00 115 03/16/17 03:45 113 7 112/58 (76) 97 88/83 (85) 03/16/17 03:30 112 11 113/56 (75) 98 84/52 (63) 03/16/17 03:15 112 15 116/56 (76) 97 107/75 (86) 03/16/17 03:00 109 20 104/55 (71) 97 217/212 (214) 03/16/17 02:45 109 19 111/56 (74) 98 86/50 (62) 03/16/17 02:30 115 16 122/58 (79) 97 102/64 (77) 03/16/17 02:16 114 21 112/83 (93) 304/299 (301) 03/16/17 02:00 115 03/16/17 02:00 115 20 115/62 (79) 98 93/54 (67) 03/16/17 01:45 107 10 112/57 (75) 100 249/249 (249) 03/16/17 01:30 113 25 110/54 (72) 98 88/53 (65) 03/16/17 01:15 105 21 100/56 (71) 98 87/50 (62) 03/16/17 01:07 100 40 03/16/17 01:00 105 19 90/54 (66) 99 67/62 (64) 03/16/17 00:45 104 20 90/53 (65) 99 74/46 (55) 03/16/17 00:30 102 12 90/52 (65) 99 72/44 (53) 03/16/17 00:15 101 14 90/54 (66) 100 76/47 (57) 03/16/17 00:00 100.8 106 13 95/54 (68) 100 81/49 (60) 03/16/17 00:00 40 03/16/17 00:00 106 03/15/17 23:45 103 15 86/51 (63) 99 77/46 (56) 03/15/17 23:42 99 10 91/53 (66) 99 69/60 (63) 03/15/17 23:30 109 20 109/54 (72) 99 134/128 (130) 03/15/17 23:15 102 20 91/50 (64) 100 71/51 (58) 03/15/17 23:00 107 16 89/49 (62) 99 76/49 (58) 03/15/17 22:51 108 61/43 03/15/17 22:45 107 18 91/43 (59) 100 60/41 (47) 03/15/17 22:30 110 14 87/53 (64) 100 89/73 (78) 03/15/17 22:20 100 50 03/15/17 22:00 112 20 93/51 (65) 99 69/45 (53) 03/15/17 22:00 112 03/15/17 21:30 109 15 81/47 (58) 100 66/43 (51) 03/15/17 21:00 106 23 79/48 (58) 100 72/45 (54) 03/15/17 20:30 115 23 84/46 (59) 100 70/42 (51) 03/15/17 20:15 114 25 80/46 (57) 100 74/43 (53) 03/15/17 20:14 116 73/43 03/15/17 20:09 115 25 73/47 (56) 100 81/45 (57) 03/15/17 20:00 50 03/15/17 20:00 99.7 119 30 97/53 (68) 100 93/49 (64) 03/15/17 20:00 119 03/15/17 19:55 100 50 03/15/17 19:45 112 20 83/53 (63) 100 87/46 (60) 03/15/17 19:30 115 14 86/50 (62) 100 89/44 (59) 03/15/17 19:15 107 15 89/54 (66) 99 88/45 (59) 03/15/17 19:00 111 24 93/52 (66) 99 88/47 (61) 03/15/17 18:00 101.1 105 26 90/52 (65) 100 98/45 (62) 03/15/17 17:00 105 30 88/52 (64) 100 88/46 (60) 03/15/17 16:00 109 30 88/51 (63) 97 102/50 (67) 03/15/17 15:00 124 12 140/67 (91) 95 03/15/17 14:29 92 50 03/15/17 14:00 130 40 127/95 (106) 90 03/15/17 13:00 103 29 131/80 (97) 92 . Laboratory Tests Test 03/15/17 05:55 03/16/17 04:36 White Blood Count 7.1 TH/MM3 19.7 TH/MM3 Red Blood Count 4.81 MIL/MM3 3.83 MIL/MM3 Hemoglobin 13.9 GM/DL 11.1 GM/DL Hematocrit 42.3 % 33.7 % Mean Corpuscular Volume 87.8 FL 88.0 FL Mean Corpuscular Hemoglobin 28.8 PG 28.9 PG Mean Corpuscular Hemoglobin Concent 32.8 % 32.9 % Red Cell Distribution Width 15.5 % 15.8 % Platelet Count 143 TH/MM3 107 TH/MM3 Mean Platelet Volume 9.2 FL 10.3 FL Neutrophils (%) (Auto) 96.1 % 89.8 % Lymphocytes (%) (Auto) 2.9 % 3.9 % Monocytes (%) (Auto) 0.8 % 6.1 % Eosinophils (%) (Auto) 0.1 % 0.0 % Basophils (%) (Auto) 0.1 % 0.2 % Neutrophils # (Auto) 6.8 TH/MM3 17.7 TH/MM3 Lymphocytes # (Auto) 0.2 TH/MM3 0.8 TH/MM3 Monocytes # (Auto) 0.1 TH/MM3 1.2 TH/MM3 Eosinophils # (Auto) 0.0 TH/MM3 0.0 TH/MM3 Basophils # (Auto) 0.0 TH/MM3 0.0 TH/MM3 CBC Comment AUTO DIFF DIFF FINAL Differential Total Cells Counted 100 Neutrophils % (Manual) 72 % Band Neutrophils % 16 % Lymphocytes % 6 % Monocytes % 5 % Neutrophils # (Manual) 6.3 TH/MM3 Myelocytes 1 % Differential Comment FINAL DIFF MANUAL Platelet Estimate NORMAL Platelet Morphology Comment NORMAL Laboratory Tests Test 03/15/17 05:55 03/15/17 08:27 03/15/17 10:45 03/15/17 15:20 Blood Urea Nitrogen 17 MG/DL Creatinine 1.32 MG/DL Random Glucose 430 MG/DL Calcium Level 9.0 MG/DL Magnesium Level 1.5 MG/DL Sodium Level 133 MEQ/L Potassium Level 3.6 MEQ/L Chloride Level 96 MEQ/L Carbon Dioxide Level 23.5 MEQ/L Anion Gap 14 MEQ/L Estimat Glomerular Filtration Rate 40 ML/MIN Troponin I 0.02 NG/ML B-Type Natriuretic Peptide 136 PG/ML 220 PG/ML Lactic Acid Level 5.5 mmol/L 6.4 mmol/L 4.9 mmol/L Total Bilirubin 0.6 MG/DL Direct Bilirubin 0.2 MG/DL Indirect Bilirubin 0.4 MG/DL Aspartate Amino Transf (AST/SGOT) 30 U/L Alanine Aminotransferase (ALT/SGPT) 23 U/L Alkaline Phosphatase 108 U/L C-Reactive Protein 3.58 MG/DL Total Protein 6.0 GM/DL Albumin 2.6 GM/DL Ammonia 67 MCMOL/L Test 03/15/17 22:10 03/16/17 04:34 03/16/17 04:36 Random Cortisol 45.9 MCG/DL Lactic Acid Level 3.0 mmol/L Blood Urea Nitrogen 27 MG/DL Creatinine 1.66 MG/DL Random Glucose 208 MG/DL Total Protein 5.8 GM/DL Albumin 2.3 GM/DL Calcium Level 6.9 MG/DL Phosphorus Level 3.1 MG/DL Magnesium Level 1.2 MG/DL Alkaline Phosphatase 60 U/L Aspartate Amino Transf (AST/SGOT) 26 U/L Alanine Aminotransferase (ALT/SGPT) 23 U/L Total Bilirubin 1.2 MG/DL Sodium Level 135 MEQ/L Potassium Level 3.7 MEQ/L Chloride Level 102 MEQ/L Carbon Dioxide Level 22.6 MEQ/L Anion Gap 10 MEQ/L Estimat Glomerular Filtration Rate 31 ML/MIN Protein Corrected Calcium 7.6 MG/DL Ammonia 43 MCMOL/L Microbiology Date/Time Source Procedure Growth Status 03/15/17 22:11 Blood Line Aerobic Blood Culture Pending Received 03/15/17 22:11 Blood Line Anaerobic Blood Culture Pending Received 03/15/17 05:55 Blood Peripheral Aerobic Blood Culture - Preliminary NO GROWTH IN 1 DAY Resulted 03/15/17 05:55 Anaerobic Blood Culture - Preliminary Gram Negative Jose Resulted 03/15/17 05:50 Blood Peripheral Aerobic Blood Culture - Preliminary NO GROWTH IN 1 DAY Resulted 03/15/17 05:50 Anaerobic Blood Culture - Preliminary Gram Negative Jose Resulted 03/16/17 01:12 Sputum Endotracheal Gram Stain - Final Resulted 03/16/17 01:12 Sputum Endotracheal Sputum Culture Pending Resulted 03/15/17 06:03 Urine Random Urine Legionella Antigen - Final PRESUMPTIVE NEGATIVE FOR LEGIONELLA P... Complete 03/15/17 06:03 Urine Random Urine Streptococcus pneumoniae Antigen (M - Final PRESUMPTIVE NEGATIVE FOR STREPTOCOCCU... Complete 03/15/17 06:03 Urine Clean Catch Urine Culture - Preliminary Gram Negative Jose Resulted Imaging Chest X-Ray 03/16/17 0600 Signed Impressions: Service Date/Time: Thursday, March 16, 2017 04:58 - CONCLUSION: Persisting consolidation left mid and lower lung and improving infiltrates in the lower right lung. Antonio Voss MD Renal Ultrasound 03/16/17 0000 Signed Impressions: Service Date/Time: Thursday, March 16, 2017 11:27 - CONCLUSION: The hydronephrosis has resolved. Urinary bladder is decompressed.. Jose Flores MD CT Angiography 03/15/17 0520 Signed Impressions: Service Date/Time: Wednesday, March 15, 2017 07:46 - CONCLUSION: 1. No evidence for pulmonary embolism. 2. Cardiomegaly with enlargement of pulmonary arteries likely from pulmonary arterial hypertension. 3. Bibasilar patchy densities could be atelectasis or infiltrate. 4. Mosaic attenuation which can be seen with small airway disease. 5. Enlarged precarinal and subcarinal adenopathy. Jai Queen MD Head CT 03/15/17 0000 Signed Impressions: Service Date/Time: Wednesday, March 15, 2017 07:47 - CONCLUSION: No acute intracranial disease. Jai Queen MD Abdomen/Pelvis CT 03/15/17 0000 Signed Impressions: Service Date/Time: Wednesday, March 15, 2017 07:51 - CONCLUSION: 1. Bilateral hydronephrosis with extensive stranding in the perinephric regions greater on the left. 2. Mild circumferential wall thickening within the bladder with mild distention. 3. Postsurgical changes rectosigmoid junction. 4. Small fat containing abdominal wall hernias. Jai Queen MD Physical Exam GENERAL: Sedated on the vent, looks comfortable on the vent SKIN: Warm and dry. No generalized rash HEAD: Atraumatic. Normocephalic. No temporal wasting, or tenderness. EYES: [place] conjunctiva. No petechia or hemorrhage. Pupils equal, round and reactive to light. No scleral icterus. No injection or drainage. EARS, NOSE AND THROAT: Nose without bleeding or purulent nasal discharge. She is orally intubated. NECK: Trachea midline. Supple and no meningeal signs CARDIOVASCULAR: Irregular rate and rhythm. No murmurs, rubs or gallops heard RESPIRATORY: Equal breath sounds bilaterally. Coarse breath sounds. Decreased at the bases. Port in the right upper chest, currently accessed, no redness, swelling or induration. ABDOMEN: Mildly distended, globular abdomen, no reaction to palpation. Has 2 long healed incisions, one midline and one horizontal. Bowel sounds present and hypoactive. No guarding. No rebound. No organomegaly. EXTREMITIES: No clubbing, cyanosis, or edema. No joint effusion, has good ROM. Well perfused and warm. NEUROLOGICAL: Sedated, no Babinski, no ankle clonus PSYCHIATRIC: Unable to assess LINE: No evidence of infection - port R upper chest : Gallo in place, urine with sediment Assessment & Plan Remarks IMPRESSION Severe sepsis, has GNR in , now with shock, on pressors - has pyelonephritis (has perinephric stranding on CT and mild hydro, no stone seen, no colitis on CT, has complaints) - has port - no PNA complaints Respiratory failure, bilateral infiltrates, ?PNA Known Colon CA, with (+) LN, undergoing chemo - S/P sigmoid colectomy, low anterior resection Renal insufficiency due to sepsis Atrial fib, chronic, previous ablation done RECOMMENDATION Follow C/S and adjust Abx Continue Vanco - will ask pharm to assist with dosing Continue V Merem and Levaquin for GNR (Patient critically ill, and immunocompromised) Monitor progress D/W Rosaura Lo MD Mar 16, 2017 12:33
--- NOTE | 2017-03-16 15:55 | ECHRPT ---
Indication: shortness of breath CONCLUSIONS The left ventricular systolic function is normal with an estimated ejection fraction in the range of 55-60%. Normal left ventricular size. Wall thickness is normal. No regional wall motion abnormalities are present. Severe mitral annular calcification. Moderate mitral valve stenosis. Mitral valve mean gradient is 10 mmHg. The left atrial size is mildly dilated. [id number] mitral valve regurgitation. The aortic valve is not well visualized. Mild to moderate aortic valve stenosis. Aortic valve area is 1.4 cm. Aortic valve mean gradient is 21.8 mmHg. There is moderate tricuspid regurgitation. The estimated pulmonary arterial pressure is 55.2 mmHg. Trivial pulmonary valve regurgitation. BP: 107 / 53 HR: 71 Rhythm: Atrial fibrillation MEASUREMENTS (Male / Female) Normal Values Technical Quality:Technically difficult study 2D ECHO LVOT Diameter 1.9 cm LV Ejection Fraction MOD 4C 63.5 % LV Cardiac Index MOD 4C 1904.5 cm/minm LV Ejection Fraction 4C AL 65.4 % LV Cardiac Index 4C AL 2031.2 cm/minm M-MODE Aortic Root Diameter MM 2.6 cm LA Systolic Diameter MM 4.0 cm LA Ao Ratio MM 1.5 AV Cusp Separation MM 2.3 cm DOPPLER AV Peak Velocity 310.8 cm/s AV Peak Gradient 38.6 mmHg AV Mean Gradient 21.8 mmHg AV Velocity Time Integral 51.4 cm LVOT Peak Velocity 170.0 cm/s LVOT Peak Gradient 11.6 mmHg LVOT Velocity Time Integral 24.8 cm LVOT Cardiac Index 2476.6 cm/minm AV Area Cont Eq vti 1.4 cm AV Area Cont Eq pk 1.6 cm MV Peak Velocity 255.0 cm/s MV Peak Gradient 26.0 mmHg MV Mean Velocity 141.0 cm/s MV Mean Gradient 10.0 mmHg MV Area PHT 3.6 cm LV E' Lateral Velocity 7.0 cm/s LV E' Septal Velocity 7.3 cm/s TR Peak Velocity 336.0 cm/s TR Peak Gradient 45.2 mmHg Right Atrial Pressure 10.0 mmHg Pulmonary Artery Systolic Pressu 55.2 mmHg Right Ventricular Systolic Press 55.2 mmHg PV Peak Velocity 90.9 cm/s PV Peak Gradient 3.3 mmHg FINDINGS LEFT VENTRICLE The left ventricular systolic function is normal with an estimated ejection fraction in the range of 55-60%. Normal left ventricular size. Wall thickness is normal. No regional wall motion abnormalities are present. RIGHT VENTRICLE Normal right ventricular size and systolic function. LEFT ATRIUM The left atrial size is mildly dilated. RIGHT ATRIUM The right atrial size is normal. ATRIAL SEPTUM Normal atrial septal thickness without atrial level shunting by limited color doppler interrogation. AORTA The aortic root and proximal ascending aorta are normal in size on limited imaging. MITRAL VALVE Severe mitral annular calcification. [id number] mitral valve regurgitation. Moderate mitral valve stenosis. Mitral valve mean gradient is 10 mmHg. AORTIC VALVE The aortic valve is not well visualized. Mild to moderate aortic valve stenosis. Aortic valve area is 1.4 cm. Aortic valve mean gradient is 21.8 mmHg. TRICUSPID VALVE There is moderate tricuspid regurgitation. The estimated pulmonary arterial pressure is 55.2 mmHg. PULMONARY VALVE Trivial pulmonary valve regurgitation. VESSELS The inferior vena cava is normal in size. PERICARDIUM No pericardial effusion. Sumit Alvarado MD (Electronically Signed) Final Date:16 March 2017 15:54
--- NOTE | 2017-03-16 16:29 | EKG ---
Date Performed: 03/15/2017 Time Performed: 16:34:18 PTAGE: 71 years EKG: ATRIAL FIBRILLATION WITH RAPID VENTRICULAR RESPONSE INDETERMINATE AXIS LOW QRS VOLTAGE IN E XTREMITY LEADS POSSIBLE ANTERIOR MYOCARDIAL INFARCTION , OF INDETERMINATE AGE ABNORMAL ECG SINCE PREVIOUS TRACING 03/15/2017, VENTRICULAR RESPONSE IN ATRIAL FIBRILLATION IS SLOWER, OTHER LINDSAY NO SIGNIFICANT CHANGE. PREVIOUS TRACIN03/15/2017 05.19 DOCTOR: Collin Castro Interpretating Date/Time 03/16/2017 16:27:19
[2017-03-16] MEDS: MIDAZOLAM 100 MG/NS 100 ML DRIP Premix IV PRN (20:24)
[2017-03-16] MEDS: fentaNYL 2,500 MCG/NS 250 ML IV PRN (20:24)
[2017-03-17] VITALS (51 sets, daily range): BP systolic 83–196; BP diastolic 52–192; PULSE 90–111; RESP 0–29; TEMP 97.3–100.1; O2SAT 98–100
[2017-03-17 03:57] LABS: AUTOMATED NEUTROPHIL # 14.7 TH/MM3 (1.8-7.7); BASOPHIL # 0.1 TH/MM3 (0-0.2); BASOPHIL % 0.4 % (0.0-2.0); EOSINOPHIL # 0.1 TH/MM3 (0-0.4); EOSINOPHIL % 0.6 % (0.0-4.0); HEMATOCRIT 31.4 % (35.0-46.0); HEMO FLAGS DIFF FINAL; LYMPH % 3.5 % (9.0-44.0); LYMPHOCYTE # 0.6 TH/MM3 (1.0-4.8); MEAN CELL VOLUME 87.6 FL (80.0-100.0); MEAN CORPUSCULAR HEMOGLOBIN 28.8 PG (27.0-34.0); MEAN CORPUSCULAR HGB CONC 32.8 % (32.0-36.0); MONO % 6.4 % (0.0-8.0); NEUT % 89.1 % (16.0-70.0); PLATELET COUNT 112 TH/MM3 (150-450); RED BLOOD COUNT 3.58 MIL/MM3 (4.00-5.30); RED CELL DISTRIBUTION WIDTH 16.1 % (11.6-17.2); WHITE BLOOD COUNT 16.5 TH/MM3 (4.0-11.0)
[2017-03-17 04:07] LABS: BICARBONATE 23.8 MEQ/L (21.0-32.0); MAGNESIUM 1.9 MG/DL (1.5-2.5); POTASSIUM 3.7 MEQ/L (3.5-5.1)
[2017-03-17 04:09] LABS: CALCIUM-PROTEIN CORRECTED 7.4 MG/DL (8.5-10.1)
[2017-03-17] MEDS: CHLORHEXIDINE GLUCONATE 2 % 1 PACK (2 CLOTHS) TOP SCH (04:10)
[2017-03-17] MEDS: RESP: ALBUTEROL 2.5 MG/IPRATROPIUM 0.5 MG NEB (SCH) INH ×4 (04:51→20:52)
[2017-03-17] MEDS: HEPARIN SODIUM - SQ 10,000 UNITS/ML VIAL SQ SCH ×3 (05:48→20:18)
[2017-03-17] MEDS: LEVOTHYROXINE SODIUM 50 MCG TAB PO SCH (05:48)
[2017-03-17] MEDS: VASOPRESSIN INJ 40 UNITS in DEXTROSE 5% IN WATER 100ML INJ 98 ML IV SCH ×4 (05:48→21:17)
[2017-03-17 06:45] LABS: BLOOD GAS BASE EXCESS -1.4 mmol/L (-2-2); BLOOD GAS CARBOXYHEMOGLOBIN 1.4 % (0-4); BLOOD GAS HCO3 24 mmol/L (22-26); BLOOD GAS METHEMOGLOBIN 1.3 % (0-2); BLOOD GAS O2 HGB SATURATION 97 % (90-100); BLOOD GAS OXYGEN CONTENT 14.3 Vol % (12.0-20.0); BLOOD GAS PCO2 44 mmHg (38-42); BLOOD GAS PO2 208 mmHg (61-120); BLOOD GAS TOTAL HGB 10.2 G/DL (12.0-16.0); TEMP CORR TO 98.6
[2017-03-17 06:46] LABS: CRITICAL VALUE NO; FIO2 50 %; OXYGEN DEVICE VENTILATOR; VENT SETTINGS AC/12/550/PEEP5
[2017-03-17 06:47] LABS: DRAW SITE ART LINE; STAT NO
--- NOTE | 2017-03-17 06:48 | RADRPT ---
EXAM DATE/TIME: 03/17/2017 06:22 [facility] COMPARISON: CHEST SINGLE AP, March 16, 2017, 4:58. INDICATIONS : Respiratory failure, Sepsis MEDICAL HISTORY : Carcinoma, colon. Hypertension Cardiovascular disease. Diabetes CVA SURGICAL HISTORY : Appendectomy. section. ENCOUNTER: Subsequent ACUITY: 3 days PAIN SCORE: Non-responsive. LOCATION: Bilateral chest FINDINGS: Dense consolidation in the retrocardiac left lower lung with loss of delineation of the entire left h emidiaphragm appears to have increased in size when compared to prior. Fullness in the right hilar r egion with loss of delineation of the bronchopulmonary markings is similar to prior. ET tube tip wel l above the angelica. Gastric tube traverses the [id number]. Right central line tip projects over the distal superior vena cava. CONCLUSION: Persistent infiltrates consolidation left lower lung and patchy infiltrates in the central right lung . Antonio Voss MD on March 17, 2017 at 6:46 Board Certified Radiologist. This report was verified electronically.
[2017-03-17] MEDS ORDERED: CALCIUM GLUCONATE INJ 2 GM in SODIUM CHLORIDE 0.9% INJ 100 ML IV ONE (07:00)
[2017-03-17] MEDS: INSULIN ASPART SUPPLEMENTAL SCALE SQ SCH ×4 (08:00→20:20)
[2017-03-17] MEDS: LACTULOSE SYRUP 20 GM/30 ML CUP NG SCH (08:17)
[2017-03-17] MEDS: PRAVASTATIN SOD 40 MG TAB PO SCH (08:17)
[2017-03-17] MEDS: HYDROCORTISONE SOD SUCCINATE 100 MG VIAL IV PUSH SCH ×2 (08:17→17:24)
[2017-03-17] MEDS: BUMETANIDE INJ 1 MG/4 ML VIAL IV PUSH SCH ×2 (08:17→17:24)
[2017-03-17] MEDS: CAPTOPRIL 25 MG TAB PO SCH (08:18)
[2017-03-17] MEDS: AMIODARONE 200 MG TAB PO SCH ×2 (08:18→20:15)
[2017-03-17] MEDS: CHOLESTYRAMINE 4 GM PACKET PO SCH (08:18)
[2017-03-17] MEDS: VENLAFAXINE HCL XR 75 MG CAP PO SCH (08:19)
[2017-03-17] MEDS: DOCUSATE SODIUM 50 MG/SENNA 8.6 MG TAB PO SCH ×2 (08:19→20:15)
[2017-03-17] MEDS: SODIUM CHLORIDE 0.9% FLUSH 10 ML FLUSH IV FLUSH SCH ×2 (08:20→20:15)
[2017-03-17] MEDS: FAMOTIDINE 20 MG/2 ML VIAL IV PUSH SCH ×2 (08:22→20:16)
--- NOTE | 2017-03-17 08:47 | HHI.PR ---
Review/Management Daily Summary 03/17 she showed neuro improvement yesterday as i discussed with dr Ware sister in law at bedside intubated on the vent will monitor neuro peripherally Subjective Subjective Comments No acute/new neuro events reported Active Medications Current Medications Medications (Trade) Dose Ordered Sig/Chiqui Route Start Time Stop Time Status Last Admin Diltiazem HCl 125 mg/Sodium Chloride 125 ml @ 5 mls/hr TITRATE PRN IV 03/15/17 05:45 Future Hold 03/15/17 06:35 Pharmacy Profile Note 0 ml @ 0 mls/hr UNSCH OTHER 03/15/17 10:15 (Tylenol) 650 mg Q4H PRN PO 03/15/17 10:15 03/16/17 22:18 (Motrin) 600 mg Q6H PRN PO 03/15/17 10:15 (Questran 4 Gm Pkt) 4 gm DAILY PO 03/16/17 09:00 03/17/17 08:18 (Synthroid) 50 mcg DAILY@0600 PO 03/16/17 06:00 03/17/17 05:48 (Effexor Xr) 150 mg DAILY PO 03/16/17 09:00 Future Hold (Pravachol) 40 mg DAILY PO 03/16/17 09:00 03/17/17 08:17 (Bumex Inj) 1 mg BID@09,18 IV PUSH 03/15/17 18:00 03/17/17 08:17 Vancomycin HCl 1700 mg/Sodium Chloride 517 ml @ 250 mls/hr Q24H IV 03/16/17 10:00 Future Hold Miscellaneous Information SPECIFIC LAB TO BE ... ONCE ONCE .XX 03/18/17 09:45 03/18/17 09:46 (Ativan Inj) 1 mg Q4H PRN IV PUSH 03/15/17 14:00 (NS Flush) 2 ml UNSCH PRN IV FLUSH 03/15/17 14:30 (NS Flush) 2 ml BID IV FLUSH 03/15/17 21:00 03/17/17 08:20 (Tears Naturale Opth Soln) 1 drop TID EACH EYE 03/15/17 18:00 03/16/17 13:00 (Zofran Inj) 4 mg Q6H PRN IV PUSH 03/15/17 14:30 (Duoneb Neb) 1 ampule Q6HR NEB INH 03/15/17 16:00 03/17/17 07:22 (Duoneb Neb) 1 ampule Q2HR NEB PRN INH 03/15/17 14:30 Miscellaneous Information 1 Q361D XX 03/15/17 14:30 03/15/17 14:30 (Chlorhexidine 2% Cloth) 3 pack Taper DAILY@04 TOP 03/16/17 04:00 03/12/18 03:59 03/17/17 04:10 (Chlorhexidine 2% Cloth) 3 pack UNSCH PRN TOP 03/15/17 14:30 (Elsa-Colace) 1 tab BID PO 03/15/17 21:00 03/17/17 08:19 (Milk Of Magnesia Liq) 30 ml Q12H PRN PO 03/15/17 14:30 (Senokot) 17.2 mg Q12H PRN PO 03/15/17 14:30 (Dulcolax Supp) 10 mg DAILY PRN RECTAL 03/15/17 14:30 (Lactulose Liq) 30 ml DAILY PRN PO 03/15/17 14:30 (D50w (Vial) Inj) 50 ml UNSCH PRN IV PUSH 03/15/17 15:15 (Glucagon Inj) 1 mg UNSCH PRN OTHER 03/15/17 15:15 (NovoLOG SUPPLEMENTAL SCALE) 1 ACHS SLIDING SCALE SQ 03/15/17 17:00 03/17/17 08:00 (Heparin Inj) 5,000 units Q8HR SQ 03/15/17 22:00 03/17/17 05:48 (Lactulose Liq) 30 ml DAILY NG 03/15/17 16:30 03/17/17 08:17 Fentanyl Citrate 250 ml @ 5 mls/hr TITRATE PRN IV 03/15/17 16:45 03/16/17 20:24 Levofloxacin/ Dextrose 150 ml @ 100 mls/hr Q48H IV 03/15/17 18:00 03/15/17 18:51 Midazolam HCl 100 ml @ 2 mls/hr TITRATE PRN IV 03/15/17 18:00 03/16/17 20:24 Vasopressin 40 units/Dextrose 100 ml @ 6 mls/hr [id number] IV 03/15/17 19:17 03/17/17 05:48 Norepinephrine Bitartrate 250 ml @ 7.5 mls/hr TITRATE PRN IV 03/15/17 22:45 03/16/17 23:51 (Brethine Inj) 1 mg UNSCH PRN SQ 03/15/17 22:45 Potassium Chloride 100 ml @ 50 mls/hr Q2H PRN IV 03/16/17 09:45 Potassium Chloride 100 ml @ 50 mls/hr Q2H PRN IV 03/16/17 09:45 (K-Lyte Cl Eff) 50 meq UNSCH PRN PO 03/16/17 09:45 Potassium Chloride 100 ml @ 25 mls/hr UNSCH PRN IV 03/16/17 09:45 Potassium Chloride 100 ml @ 50 mls/hr Q2H PRN IV 03/16/17 09:45 Magnesium Sulfate 4 gm/Sodium Chloride 100 ml @ 50 mls/hr UNSCH PRN IV 03/16/17 09:45 (Mag-Ox) 800 mg UNSCH PRN PO 03/16/17 09:45 Magnesium Sulfate 2 gm/Sodium Chloride 100 ml @ 50 mls/hr UNSCH PRN IV 03/16/17 09:45 03/16/17 11:07 (K-Phos) 2,000 mg Q4H PRN PO 03/16/17 09:45 Sodium Phosphate 30 mmol/Sodium Chloride 250 ml @ 42 mls/hr UNSCH PRN IV 03/16/17 09:45 (K-Phos) 2,000 mg UNSCH PRN PO/TUBE 03/16/17 09:45 Potassium Phosphate 30 mmol/ Sodium Chloride 260 ml @ 42 mls/hr UNSCH PRN IV 03/16/17 09:45 (SoluCORTEF INJ) 100 mg Q8H IV PUSH 03/16/17 10:00 03/17/17 08:17 Sodium Bicarbonate 150 meq/Sodium Chloride 1,000 ml @ 75 mls/hr [id number] IV 03/16/17 11:00 03/16/17 23:50 (Cordarone) 400 mg BID PO 03/16/17 21:00 03/17/17 08:18 Meropenem 500 mg/ Sodium Chloride 100 ml @ 200 mls/hr Q12H IV 03/17/17 00:00 03/16/17 23:52 (Pepcid Inj) 10 mg Q12HR IV PUSH 03/17/17 09:00 03/17/17 08:22 Allergies Allergies Coded Allergies codeine (Unverified Allergy, Severe, Nausea/Vomiting, 03/15/17) Uncoded Allergies METAL ( Allergy, Intermediate, hives, 03/08/16) SURGICAL STEEL ( Allergy, Intermediate, hives, 03/08/16) Review of Systems All other ROS: ROS reviewed as documented in chart Exam I&O / VS Vital Signs Date Time Temp Pulse Resp B/P (MAP) Pulse Ox O2 Delivery O2 Flow Rate FiO2 03/17/17 07:22 100 50 03/17/17 06:00 90 109/69 (82) 114/68 (83) 03/17/17 06:00 90 03/17/17 05:48 94 130/77 03/17/17 04:51 100 50 03/17/17 04:00 98.3 90 12 114/61 (78) 100 112/84 (93) 03/17/17 04:00 90 03/17/17 04:00 50 03/17/17 02:00 102 03/17/17 00:00 99.1 99 11 128/60 (82) 100 125/71 (89) 03/17/17 00:00 50 03/17/17 00:00 99 03/16/17 23:53 15 03/16/17 23:51 93 136/75 03/16/17 22:00 95 03/16/17 20:00 50 03/16/17 20:00 100.3 96 12 114/58 (76) 100 120/71 (87) 03/16/17 20:00 96 03/16/17 19:22 100 50 03/16/17 18:00 97 03/16/17 16:30 105 117/57 03/16/17 16:00 100.4 104 13 118/65 (82) 100 03/16/17 16:00 60 03/16/17 15:57 100 60 03/16/17 14:00 90 03/16/17 12:53 99 60 03/16/17 12:00 101.4 106 15 113/53 (73) 99 03/16/17 12:00 40 03/16/17 11:18 108 116/56 03/16/17 10:30 104 98/54 03/16/17 10:19 100 60 03/16/17 10:00 90 General: Alert and Oriented, No acute distress Eye: EOMI Respiratory: Non-labored respirations Cardiology: Normal rate Musculoskeletal: ROM Neurologic: Alert, Oriented, Normal sensory, Normal motor, Gag reflex normal, Normal DTR's Psychiatric: Cooperative, Appropriate mood & affect, Normal judgement Objective Micro and Labs Laboratory Tests Test 03/16/17 15:30 03/17/17 03:20 03/17/17 05:39 Lactic Acid Level 1.5 2.2 Phosphorus Level 4.0 4.2 Thyroxine (T4) 12.0 Thyroid Stimulating Hormone 3rd Gen 1.880 White Blood Count 16.5 Red Blood Count 3.58 Hemoglobin 10.3 Hematocrit 31.4 Mean Corpuscular Volume 87.6 Mean Corpuscular Hemoglobin 28.8 Mean Corpuscular Hemoglobin Concent 32.8 Red Cell Distribution Width 16.1 Platelet Count 112 Mean Platelet Volume 10.4 Neutrophils (%) (Auto) 89.1 Lymphocytes (%) (Auto) 3.5 Monocytes (%) (Auto) 6.4 Eosinophils (%) (Auto) 0.6 Basophils (%) (Auto) 0.4 Neutrophils # (Auto) 14.7 Lymphocytes # (Auto) 0.6 Monocytes # (Auto) 1.1 Eosinophils # (Auto) 0.1 Basophils # (Auto) 0.1 CBC Comment DIFF FINAL Differential Comment Blood Urea Nitrogen 37 Creatinine 1.86 Random Glucose 234 Total Protein 6.0 Albumin 2.1 Calcium Level 6.8 Magnesium Level 1.9 Alkaline Phosphatase 52 Aspartate Amino Transf (AST/SGOT) 17 Alanine Aminotransferase (ALT/SGPT) 16 Total Bilirubin 1.0 Sodium Level 137 Potassium Level 3.7 Chloride Level 102 Carbon Dioxide Level 23.8 Anion Gap 11 Estimat Glomerular Filtration Rate 27 Protein Corrected Calcium 7.4 Ammonia 44 Random Vancomycin Level 4.5 Blood Gas Puncture Site ART LINE Blood Gas Patient Temperature 98.6 Blood Gas HCO3 24 Blood Gas Base Excess -1.4 Blood Gas Oxygen Saturation 97 Arterial Blood pH 7.34 Arterial Blood Partial Pressure CO2 44 Arterial Blood Partial Pressure O2 208 Arterial Blood Oxygen Content 14.3 Arterial Blood Carboxyhemoglobin 1.4 Arterial Blood Methemoglobin 1.3 Blood Gas Hemoglobin 10.2 Oxygen Delivery Device VENTILATOR Blood Gas Ventilator Setting AC/12/550/PEEP5 Blood Gas Inspired Oxygen 50 Date/Time Source Procedure Growth Status 03/15/17 22:11 Blood Line Aerobic Blood Culture Pending Received 03/15/17 22:11 Blood Line Anaerobic Blood Culture Pending Received 03/16/17 01:12 Sputum Endotracheal Gram Stain - Final Resulted 03/16/17 01:12 Sputum Endotracheal Sputum Culture Pending Resulted 03/15/17 06:03 Urine Random Urine Legionella Antigen - Final PRESUMPTIVE NEGATIVE FOR LEGIONELLA P... Complete 03/15/17 06:03 Urine Random Urine Streptococcus pneumoniae Antigen (M - Final PRESUMPTIVE NEGATIVE FOR STREPTOCOCCU... Complete Castro Huff MD Mar 17, 2017 08:47
--- NOTE | 2017-03-17 09:15 | HHI.PR ---
Subjective Patient symptoms today remains intubated, sedated. On Vasopressin, Levophed. No fevers overnight. UOP improved. Objective Vital Signs Vital Signs Date Time Temp Pulse Resp B/P (MAP) Pulse Ox O2 Delivery O2 Flow Rate FiO2 03/17/17 07:22 100 50 03/17/17 06:00 90 109/69 (82) 114/68 (83) 03/17/17 06:00 90 03/17/17 05:48 94 130/77 03/17/17 04:51 100 50 03/17/17 04:00 98.3 90 12 114/61 (78) 100 112/84 (93) 03/17/17 04:00 90 03/17/17 04:00 50 03/17/17 02:00 102 03/17/17 00:00 99.1 99 11 128/60 (82) 100 125/71 (89) 03/17/17 00:00 50 03/17/17 00:00 99 03/16/17 23:53 15 03/16/17 23:51 93 136/75 03/16/17 22:00 95 03/16/17 20:00 50 03/16/17 20:00 100.3 96 12 114/58 (76) 100 120/71 (87) 03/16/17 20:00 96 03/16/17 19:22 100 50 03/16/17 18:00 97 03/16/17 16:30 105 117/57 03/16/17 16:00 100.4 104 13 118/65 (82) 100 03/16/17 16:00 60 03/16/17 15:57 100 60 03/16/17 14:00 90 03/16/17 12:53 99 60 03/16/17 12:00 101.4 106 15 113/53 (73) 99 03/16/17 12:00 40 03/16/17 11:18 108 116/56 03/16/17 10:30 104 98/54 03/16/17 10:19 100 60 03/16/17 10:00 90 Intake & Output 03/17/17 03/17/17 07:00 19:00 Intake Total 957.2 ml Output Total 750 ml Balance 207.2 ml Intake IV Total 837.2 ml Tube Irrigant 120 ml Output Urine Total 650 ml Gastric Drainage Total 100 ml Result Diagram: 03/17/17 0320 03/17/17 0320 Imaging Last 24 hours Impressions Chest X-Ray 03/17/17 0000 Signed Impressions: Service Date/Time: Friday, March 17, 2017 06:22 - CONCLUSION: Persistent infiltrates consolidation left lower lung and patchy infiltrates in the central right lung. Antonio Voss MD Renal U/S images reviewed. Agree with radiologist result. Hydronephrosis resolved. No masses or stones visualized. Objective Remarks NAD. intubated, sedated abd distended, but soft. Medications and IVs Current Medications Medications (Trade) Dose Ordered Sig/Chiqui Route Start Time Stop Time Status Last Admin Diltiazem HCl 125 mg/Sodium Chloride 125 ml @ 5 mls/hr TITRATE PRN IV 03/15/17 05:45 Future Hold 03/15/17 06:35 Pharmacy Profile Note 0 ml @ 0 mls/hr UNSCH OTHER 03/15/17 10:15 (Tylenol) 650 mg Q4H PRN PO 03/15/17 10:15 03/16/17 22:18 (Motrin) 600 mg Q6H PRN PO 03/15/17 10:15 (Questran 4 Gm Pkt) 4 gm DAILY PO 03/16/17 09:00 03/17/17 08:18 (Synthroid) 50 mcg DAILY@0600 PO 03/16/17 06:00 03/17/17 05:48 (Effexor Xr) 150 mg DAILY PO 03/16/17 09:00 Future Hold (Pravachol) 40 mg DAILY PO 03/16/17 09:00 03/17/17 08:17 (Bumex Inj) 1 mg BID@09,18 IV PUSH 03/15/17 18:00 03/17/17 08:17 Vancomycin HCl 1700 mg/Sodium Chloride 517 ml @ 250 mls/hr Q24H IV 03/16/17 10:00 Future Hold Miscellaneous Information SPECIFIC LAB TO BE ... ONCE ONCE .XX 03/18/17 09:45 03/18/17 09:46 (Ativan Inj) 1 mg Q4H PRN IV PUSH 03/15/17 14:00 (NS Flush) 2 ml UNSCH PRN IV FLUSH 03/15/17 14:30 (NS Flush) 2 ml BID IV FLUSH 03/15/17 21:00 03/17/17 08:20 (Tears Naturale Opth Soln) 1 drop TID EACH EYE 03/15/17 18:00 03/16/17 13:00 (Zofran Inj) 4 mg Q6H PRN IV PUSH 03/15/17 14:30 (Duoneb Neb) 1 ampule Q6HR NEB INH 03/15/17 16:00 03/17/17 07:22 (Duoneb Neb) 1 ampule Q2HR NEB PRN INH 03/15/17 14:30 Miscellaneous Information 1 Q361D XX 03/15/17 14:30 03/15/17 14:30 (Chlorhexidine 2% Cloth) 3 pack Taper DAILY@04 TOP 03/16/17 04:00 03/12/18 03:59 03/17/17 04:10 (Chlorhexidine 2% Cloth) 3 pack UNSCH PRN TOP 03/15/17 14:30 (Elsa-Colace) 1 tab BID PO 03/15/17 21:00 03/17/17 08:19 (Milk Of Magnesia Liq) 30 ml Q12H PRN PO 03/15/17 14:30 (Senokot) 17.2 mg Q12H PRN PO 03/15/17 14:30 (Dulcolax Supp) 10 mg DAILY PRN RECTAL 03/15/17 14:30 (Lactulose Liq) 30 ml DAILY PRN PO 03/15/17 14:30 (D50w (Vial) Inj) 50 ml UNSCH PRN IV PUSH 03/15/17 15:15 (Glucagon Inj) 1 mg UNSCH PRN OTHER 03/15/17 15:15 (NovoLOG SUPPLEMENTAL SCALE) 1 ACHS SLIDING SCALE SQ 03/15/17 17:00 03/17/17 08:00 (Heparin Inj) 5,000 units Q8HR SQ 03/15/17 22:00 03/17/17 05:48 (Lactulose Liq) 30 ml DAILY NG 03/15/17 16:30 03/17/17 08:17 Fentanyl Citrate 250 ml @ 5 mls/hr TITRATE PRN IV 03/15/17 16:45 03/16/17 20:24 Levofloxacin/ Dextrose 150 ml @ 100 mls/hr Q48H IV 03/15/17 18:00 03/15/17 18:51 Midazolam HCl 100 ml @ 2 mls/hr TITRATE PRN IV 03/15/17 18:00 03/16/17 20:24 Vasopressin 40 units/Dextrose 100 ml @ 6 mls/hr [id number] IV 03/15/17 19:17 03/17/17 05:48 Norepinephrine Bitartrate 250 ml @ 7.5 mls/hr TITRATE PRN IV 03/15/17 22:45 03/16/17 23:51 (Brethine Inj) 1 mg UNSCH PRN SQ 03/15/17 22:45 Potassium Chloride 100 ml @ 50 mls/hr Q2H PRN IV 03/16/17 09:45 Potassium Chloride 100 ml @ 50 mls/hr Q2H PRN IV 03/16/17 09:45 (K-Lyte Cl Eff) 50 meq UNSCH PRN PO 03/16/17 09:45 Potassium Chloride 100 ml @ 25 mls/hr UNSCH PRN IV 03/16/17 09:45 Potassium Chloride 100 ml @ 50 mls/hr Q2H PRN IV 03/16/17 09:45 Magnesium Sulfate 4 gm/Sodium Chloride 100 ml @ 50 mls/hr UNSCH PRN IV 03/16/17 09:45 (Mag-Ox) 800 mg UNSCH PRN PO 03/16/17 09:45 Magnesium Sulfate 2 gm/Sodium Chloride 100 ml @ 50 mls/hr UNSCH PRN IV 03/16/17 09:45 03/16/17 11:07 (K-Phos) 2,000 mg Q4H PRN PO 03/16/17 09:45 Sodium Phosphate 30 mmol/Sodium Chloride 250 ml @ 42 mls/hr UNSCH PRN IV 03/16/17 09:45 (K-Phos) 2,000 mg UNSCH PRN PO/TUBE 03/16/17 09:45 Potassium Phosphate 30 mmol/ Sodium Chloride 260 ml @ 42 mls/hr UNSCH PRN IV 03/16/17 09:45 (SoluCORTEF INJ) 100 mg Q8H IV PUSH 03/16/17 10:00 03/17/17 08:17 Sodium Bicarbonate 150 meq/Sodium Chloride 1,000 ml @ 75 mls/hr [id number] IV 03/16/17 11:00 9/23/17 23:50 (Cordarone) 400 mg BID PO 03/16/17 21:00 03/17/17 08:18 Meropenem 500 mg/ Sodium Chloride 100 ml @ 200 mls/hr Q12H IV 03/17/17 00:00 03/16/17 23:52 (Pepcid Inj) 10 mg Q12HR IV PUSH 03/17/17 09:00 03/17/17 08:22 Assessment and Plan Assessment and Plan 71 yo female with bilateral hydronephrosis, urinary retention, ARF -Hydronephrosis resolved. Urinary retention likely etiology. -UOP improving -ARF likely ATN -Recommend home with jacobsen catheter. Will need Urodynamics as outpatient. -Appears her septic picture likely Pulmonary in nature -Continue supportive care -Please call with any questions. Available as needed. Nishant Larose MD Mar 17, 2017 09:15
--- NOTE | 2017-03-17 09:20 | HHI.FPPN ---
Subjective Remarks Patient febrile up to 101.4 in the past 24 hours. Map ranging 70-80 on Levophed and vasopressin. Patient remains intubated with FiO2 50 and PEEP of 10. Intake 2997 mL, output 1325 mL, balance of +1672 mL. Weight has increased from 99.5 kg to 100.5 kg today. Objective Vitals Vital Signs Date Time Temp Pulse Resp B/P (MAP) Pulse Ox O2 Delivery O2 Flow Rate FiO2 03/17/17 07:22 100 50 03/17/17 06:00 90 109/69 (82) 114/68 (83) 03/17/17 06:00 90 03/17/17 05:48 94 130/77 03/17/17 04:51 100 50 03/17/17 04:00 98.3 90 12 114/61 (78) 100 112/84 (93) 03/17/17 04:00 90 03/17/17 04:00 50 03/17/17 02:00 102 03/17/17 00:00 99.1 99 11 128/60 (82) 100 125/71 (89) 03/17/17 00:00 50 03/17/17 00:00 99 03/16/17 23:53 15 03/16/17 23:51 93 136/75 03/16/17 22:00 95 03/16/17 20:00 50 03/16/17 20:00 100.3 96 12 114/58 (76) 100 120/71 (87) 03/16/17 20:00 96 03/16/17 19:22 100 50 03/16/17 18:00 97 03/16/17 16:30 105 117/57 03/16/17 16:00 100.4 104 13 118/65 (82) 100 03/16/17 16:00 60 03/16/17 15:57 100 60 03/16/17 14:00 90 03/16/17 12:53 99 60 03/16/17 12:00 101.4 106 15 113/53 (73) 99 03/16/17 12:00 40 03/16/17 11:18 108 116/56 03/16/17 10:30 104 98/54 03/16/17 10:19 100 60 03/16/17 10:00 90 I/O 9/23/17 03/16/17 03/16/17 03/17/17 03/17/17 03/17/17 07:00 15:00 23:00 07:00 15:00 23:00 Intake Total 1625.6 ml 120 ml 1947.5 ml 929.7 ml Output Total 170 ml 575 ml 750 ml Balance 1455.6 ml 120 ml 1372.5 ml 179.7 ml Intake IV Total 1445.6 ml 120 ml 1847.5 ml 809.7 ml Tube Irrigant 180 ml 100 ml 120 ml Output Urine Total 170 ml 475 ml 650 ml Gastric Drainage Total 100 ml 100 ml Result Diagram: 03/17/17 0320 03/17/17 0320 Imaging Last Impressions Chest X-Ray 03/17/17 0000 Signed Impressions: Service Date/Time: Friday, March 17, 2017 06:22 - CONCLUSION: Persistent infiltrates consolidation left lower lung and patchy infiltrates in the central right lung. Antonio Voss MD Renal Ultrasound 03/16/17 0000 Signed Impressions: Service Date/Time: Thursday, March 16, 2017 11:27 - CONCLUSION: The hydronephrosis has resolved. Urinary bladder is decompressed.. Jose Flores MD CT Angiography 03/15/17 0520 Signed Impressions: Service Date/Time: Wednesday, March 15, 2017 07:46 - CONCLUSION: 1. No evidence for pulmonary embolism. 2. Cardiomegaly with enlargement of pulmonary arteries likely from pulmonary arterial hypertension. 3. Bibasilar patchy densities could be atelectasis or infiltrate. 4. Mosaic attenuation which can be seen with small airway disease. 5. Enlarged precarinal and subcarinal adenopathy. Jai Queen MD Head CT 03/15/17 0000 Signed Impressions: Service Date/Time: Wednesday, March 15, 2017 07:47 - CONCLUSION: No acute intracranial disease. Jai Queen MD Abdomen/Pelvis CT 03/15/17 0000 Signed Impressions: Service Date/Time: Wednesday, March 15, 2017 07:51 - CONCLUSION: 1. Bilateral hydronephrosis with extensive stranding in the perinephric regions greater on the left. 2. Mild circumferential wall thickening within the bladder with mild distention. 3. Postsurgical changes rectosigmoid junction. 4. Small fat containing abdominal wall hernias. Jai Queen MD Objective Remarks GENERAL: Well-nourished, well-developed obese female. Sedated and intubated. SKIN: Warm and dry. HEAD: Normocephalic. EYES: No scleral icterus. No injection or drainage. NECK: Supple, trachea midline. No JVD or lymphadenopathy. CARDIOVASCULAR: Irregularly irregular rate and rhythm without murmurs, gallops, or rubs. RESPIRATORY: Breath sounds equal bilaterally. No accessory muscle use. GASTROINTESTINAL: Abdomen soft, non-tender, distended. Bowel sounds present. MUSCULOSKELETAL: No cyanosis, 2+ pitting edema in lower extremities bilaterally Date of Insertion: Mar 15, 2017 A/P Assessment and Plan Patient is a 71 year old female with a PMH significant for colon cancer s/p chemotherapy, atrial fibrillation on Eliquis, HTN, DM type 2, and MDD who presented to the ED with abdominal pain, nausea and vomiting and was found to have severe sepsis secondary to PNA and pyelonephritis in addition to atrial fibrillation with RVR. She rapidly decompensated into respiratory failure and was intubated on 03/15, now in critical condition with septic shock. Discharge Planning Unclear timetable, patient in critical condition. dw Dr. Ambrosio Problem List: (1) Sepsis due to Gram-negative organism with septic shock ICD Codes: A41.50 - Gram-negative sepsis, unspecified; R65.21 - Severe sepsis with septic shock Status: Acute Plan: Neurologic: AMS-toxic encephalopathy secondary to sepsis History of TIA x 2 Major Depressive Disorder Neurochecks per ICU protocol Patient intubated for airway protection continues on propofol and fentanyl infusions for ventilator synchrony Ammonia elevated at 67 on admission, 44 today, continue lactulose 03/15 CT brain-no intracranial abnormality Neurology consulted- Dr. Huff to consider MRI brain within the next few days Daily sedation vacation Respiratory: Acute Hypoxemic respiratory failure Pulmonary hypertension Carinal adenopathy 03/15 Patient intubated emergently FiO2 50, PEEP 10 today Maintain O2 sat greater than 92% Ventilator bundle Duonebs Q6H scheduled and Q2H when necessary 03/15 CT angiogram -pulmonary hypertension, no PE, enlarged precarinal and subcarinal lymphadenopathy 03/16 CXR shows persisting consolidation left mid and lower lung and improving infiltrates in the lower right lung Pulmonary HTN not present on last echo in 2014, 03/16 Echo shows EF 55-60%, severe mitral annular calcification with moderate mitral valve stenosis, mildly dilated right atrium, mild to mod aortic valve stenosis, pulmonary arterial pressure 55.2 Cardiovascular: A. fib RVR Hypertension Patient initially on Cardizem infusion-heart rate now in 90's, discontinued for MAP < 60 Amiodarone increased from 200mg to 400mg PO BID Last echo 02/05- ejection fraction 55-60%. No RWMA. APA 35 mmHg, TV mild regurg, MV mild regurg 03/16 Echo results as above EPS- Dr. Lubin consulted Renal: Bilateral hydronephrosis Pyelonephrosis Continue Gallo catheter, output 470ml in past 24 hours 03/14-CT of the abdomen and pelvis-bilateral hydronephrosis, pyelonephrosis, perinephric stranding -- Strict I/Os Urology consulted- 03/16 renal US shows resolution of hydronephrosis, urinary bladder decompressed Creatinine trending up to 1.86 today FEN/GI: History of colon cancer status post chemotherapy and colectomy Abdominal hernia Initiate tube feeds today NGT to LIWS Heme/ID: Septic Shock due to gram negative carmela Community-acquired multilobar pneumonia Pyelonephritis Lactic acidemia Bandemia 03/15 Blood cultures growing Gram-negative carmela 03/15 urine culture growing Gram-negative carmela Follow-up sputum culture legionella and streptococcus antigens negative ID consulted - Dr. Hansen, treat with Vanc, IV Merem and Levaquin for GNR Heme- Onc consulted regarding carinal adenopathy lymphadenopathy, patient is S/ P completion of chemotherapy 09/2016. Repeat CT chest in 1-2 months to evaluate mediastinal lymph nodes as outpatient Trend lactate level 6.4->4.2->4.9->3.0->1.5->2.2 Endocrine: Diabetes mellitus Hypothyroidism High-dose SSI Continue Levothyroxine 50 mcgs/day Prophylaxis: GI Prophylaxis with famotidine BID DVT Prophylaxis with SCDs and Heparin 5000u Q8H Lines: Port right chest, peripheral IVs 2, left radial A-line (2) Pyelonephritis ICD Codes: N12 - Tubulo-interstitial nephritis, not specified as acute or chronic (3) PNA (pneumonia) ICD Codes: J18.9 - Pneumonia, unspecified organism (4) Atrial fibrillation with rapid ventricular response ICD Codes: I48.91 - Atrial fibrillation with rapid ventricular response Status: Acute (5) Diabetes mellitus, type II ICD Codes: E11.9 - Type 2 diabetes mellitus Status: Chronic (6) Hypertension ICD Codes: I10 - Essential (primary) hypertension Status: Chronic (7) Hypothyroidism ICD Codes: E03.9 - Hypothyroidism Status: Acute (8) Nutrition, metabolism, and development symptoms ICD Codes: R63.8 - Symptoms concerning nutrition, metabolism, and development Status: Acute Problem Qualifiers (1) PNA (pneumonia): Qualified Codes: J18.9 - Pneumonia, unspecified organism (2) Diabetes mellitus, type II: Qualified Codes: E11.9 - Type 2 diabetes mellitus without complications; Z79.4 - rn ante partum (current) use of insulin (3) Hypertension: Qualified Codes: I10 - Essential (primary) hypertension (4) Hypothyroidism: Qualified Codes: E03.9 - Hypothyroidism, unspecified Fanta Hawkins MD, R3 Mar 17, 2017 09:20
--- NOTE | 2017-03-17 09:34 | HHI.CCPN ---
Subjective Remarks/Hospital Course This is a 71 year old female with a PMH significant for colon cancer s/p chemotherapy, atrial fibrillation previously on Eliquis discontinued for GI bleeding, HTN, DM type 2, and MDD who presented to the ED with abdominal pain, nausea and vomiting.The patient stated that she had pain in her left side this morning that radiated to her lower abdomen and caused her to have nausea and vomiting. She states that she has been short of breath for the past 3 weeks and progressively more fatigued. Her states that she has been becoming progressively weaker and sleeping excessively at times. At 3AM this morning, he noticed that she was trying to talk but "wasn't making any sense." He states that she has been so short of breath that she has been having difficulty finishing sentences without becoming short of breath. She notes dysuria, urinary urgency and frequency for the past 3-4 days. Imaging studies and laboratory studies were performed. Notably CTA of the chest reveal pulmonary hypertension and carinal lymphadenopathy. CT abdomen and pelvis revealed bilateral hydronephrosis and pyelonephrosis with perinephric stranding. Cultures were sent, the patient was noted to have bacteremia notably gram- negative rods. The patient was in A. fib RVR in the ED the patient received Cardizem bolus and was placed on a Cardizem infusion and transferred to ICU. Upon admission to ICU the patient became progressively short of breath with escalating alternation in mental status critical care medicine was consulted. The patient's heart rate at that time was in the 130s systolic pressure 140s and O2 sat high 80s. Brief discussion with purpose of emergent intubation. Subjective: 03/16: Overnight the patient continued to have hemodynamic instability, now septic shock. Patient continues in A. fib with HR low 100's. Patient on maximum doses currently of norepinephrine and vasopressin infusions. Clyde- cortisone added to medication regimen, Sodium bicarbonate infusion initiated. Imaging revealed hydronephrosis and pyelonephrosis patient seen by Dr. Larose, urine output now decreased to 150cc total over the last 12hrs, with continued elevation in creatinine. Planned renogram this a.m., to rule out obstruction with possible placement of nephrostomy tubes, and nephrology also consulted. Patient was seen by Dr. Candelario, carinal /hilar lymphadenopathy most likely not associated with carcinoma, plan for outpatient scan in 2-3 months. FiO2 was decreased to 60% overnight, ECHO pending her evaluation of cardiac status and pulmonary hypertension. 03/17: Overnight vasopressors weaned significantly, currently on lower doses. The patient continues on sodium bicarbonate infusion. Renogram canceled secondary to hemodynamic instability yesterday renal ultrasound performed revealed no hydronephrosis, creatinine continues to be elevated most likely secondary to acute kidney injury secondary to hypotension and septic shock. Nephrology consult pending. Echo revealed severe mitral valve stenosis and calcification with pulmonary hypertension and PASP 55.2 Objective Vital Signs Date Time Temp Pulse Resp B/P (MAP) Pulse Ox O2 Delivery O2 Flow Rate FiO2 03/17/17 07:22 100 50 03/17/17 06:00 90 109/69 (82) 114/68 (83) 03/17/17 04:00 98.3 12 03/15/17 10:34 Nasal Cannula 4.00 Intake and Output 03/17/17 03/17/17 03/18/17 08:00 16:00 00:00 Intake Total 288.7 ml Output Total 750 ml Balance -461.3 ml Result Diagram: 03/17/17 0320 03/17/17 0320 Other Results Microbiology Date/Time Source Procedure Growth Status 03/15/17 06:03 Urine Random Urine Legionella Antigen - Final PRESUMPTIVE NEGATIVE FOR LEGIONELLA P... Complete 03/15/17 06:03 Urine Random Urine Streptococcus pneumoniae Antigen (M - Final PRESUMPTIVE NEGATIVE FOR STREPTOCOCCU... Complete Laboratory Tests Test 03/17/17 05:39 Blood Gas Puncture Site ART LINE Blood Gas Patient Temperature 98.6 Blood Gas HCO3 24 mmol/L (22-26) Blood Gas Base Excess -1.4 mmol/L (-2-2) Blood Gas Oxygen Saturation 97 % (90-100) Arterial Blood pH 7.34 (7.380-7.420) Arterial Blood Partial Pressure CO2 44 mmHg (38-42) Arterial Blood Partial Pressure O2 208 mmHg (61-120) Arterial Blood Oxygen Content 14.3 Vol % (12.0-20.0) Arterial Blood Carboxyhemoglobin 1.4 % (0-4) Arterial Blood Methemoglobin 1.3 % (0-2) Blood Gas Hemoglobin 10.2 G/DL (12.0-16.0) Oxygen Delivery Device VENTILATOR Blood Gas Ventilator Setting AC/12/550/PEEP5 Blood Gas Inspired Oxygen 50 % Imaging Last Impressions Chest X-Ray 9/24/17 0000 Signed Impressions: Service Date/Time: Friday, March 17, 2017 06:22 - CONCLUSION: Persistent infiltrates consolidation left lower lung and patchy infiltrates in the central right lung. Antonio Voss MD Renal Ultrasound 03/16/17 0000 Signed Impressions: Service Date/Time: Thursday, March 16, 2017 11:27 - CONCLUSION: The hydronephrosis has resolved. Urinary bladder is decompressed.. Jose Flores MD CT Angiography 03/15/17 05 Signed Impressions: Service Date/Time: Wednesday, March 15, 2017 07:46 - CONCLUSION: 1. No evidence for pulmonary embolism. 2. Cardiomegaly with enlargement of pulmonary arteries likely from pulmonary arterial hypertension. 3. Bibasilar patchy densities could be atelectasis or infiltrate. 4. Mosaic attenuation which can be seen with small airway disease. 5. Enlarged precarinal and subcarinal adenopathy. Jai Queen MD Head CT 03/15/17 0000 Signed Impressions: Service Date/Time: Wednesday, March 15, 2017 07:47 - CONCLUSION: No acute intracranial disease. Jai Queen MD Abdomen/Pelvis CT 03/15/17 0000 Signed Impressions: Service Date/Time: Wednesday, March 15, 2017 07:51 - CONCLUSION: 1. Bilateral hydronephrosis with extensive stranding in the perinephric regions greater on the left. 2. Mild circumferential wall thickening within the bladder with mild distention. 3. Postsurgical changes rectosigmoid junction. 4. Small fat containing abdominal wall hernias. Jai Queen MD Last Impressions Chest X-Ray 03/16/17 0600 Signed Impressions: Service Date/Time: Thursday, March 16, 2017 04:58 - CONCLUSION: Persisting consolidation left mid and lower lung and improving infiltrates in the lower right lung. Antonio Voss MD CT Angiography 03/15/17 0520 Signed Impressions: Service Date/Time: Wednesday, March 15, 2017 07:46 - CONCLUSION: 1. No evidence for pulmonary embolism. 2. Cardiomegaly with enlargement of pulmonary arteries likely from pulmonary arterial hypertension. 3. Bibasilar patchy densities could be atelectasis or infiltrate. 4. Mosaic attenuation which can be seen with small airway disease. 5. Enlarged precarinal and subcarinal adenopathy. Jai Queen MD Head CT 03/15/17 0000 Signed Impressions: Service Date/Time: Wednesday, March 15, 2017 07:47 - CONCLUSION: No acute intracranial disease. Jai Queen MD Abdomen/Pelvis CT 03/15/17 0000 Signed Impressions: Service Date/Time: Wednesday, March 15, 2017 07:51 - CONCLUSION: 1. Bilateral hydronephrosis with extensive stranding in the perinephric regions greater on the left. 2. Mild circumferential wall thickening within the bladder with mild distention. 3. Postsurgical changes rectosigmoid junction. 4. Small fat containing abdominal wall hernias. Jai Queen MD Last Impressions Chest X-Ray 03/15/17519 Signed Impressions: Service Date/Time: Wednesday, March 15, 2017 05:41 - CONCLUSION: Opacity in the perihilar region bilaterally suggesting either central infiltrates or adenopathy. Antonio Voss MD CT Angiography 03/15/17519 Signed Impressions: Service Date/Time: Wednesday, March 15, 2017 07:46 - CONCLUSION: 1. No evidence for pulmonary embolism. 2. Cardiomegaly with enlargement of pulmonary arteries likely from pulmonary arterial hypertension. 3. Bibasilar patchy densities could be atelectasis or infiltrate. 4. Mosaic attenuation which can be seen with small airway disease. 5. Enlarged precarinal and subcarinal adenopathy. Jai Queen MD Head CT 03/15/17 0000 Signed Impressions: Service Date/Time: Wednesday, March 15, 2017 07:47 - CONCLUSION: No acute intracranial disease. Jai Queen MD Abdomen/Pelvis CT 03/15/17 0000 Signed Impressions: Service Date/Time: Wednesday, March 15, 2017 07:51 - CONCLUSION: 1. Bilateral hydronephrosis with extensive stranding in the perinephric regions greater on the left. 2. Mild circumferential wall thickening within the bladder with mild distention. 3. Postsurgical changes rectosigmoid junction. 4. Small fat containing abdominal wall hernias. Jai Queen MD Objective Remarks GENERAL: Obese critically ill-appearing female , sedated and intubated. SKIN: Warm and dry. HEAD: Atraumatic. Normocephalic. EYES: Pupils equal and round. No scleral icterus. No injection or drainage. ENT: No nasal bleeding or discharge. Mucous membranes pink and moist. NECK: Trachea midline. No JVD. CARDIOVASCULAR: Irregularly irregular rhythm. RESPIRATORY: Mechanical ventilation. Clear to auscultation. Breath sounds equal bilaterally. GASTROINTESTINAL: Abdomen soft, protuberant non-tender, nondistended. No guarding. MUSCULOSKELETAL: Extremities without clubbing, cyanosis, or edema. No obvious deformities. NEUROLOGICAL: GCS 11T .RASS 0. No gross focal/sensory deficits. Follows commands, moves extremities 4 Procedures 03/16- Renogram cancelled . Renal US performed. 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 Major Depressive Disorder Neurochecks per ICU protocol Patient intubated for airway protection continues on Versed and Fentanyl infusions for ventilator synchrony, Ammonia level obtained 67-begin lactulose 03/15 CT brain-no intracranial abnormality Daily sedation vacation- Currently GCS 11T Effexor placed on hold Respiratory: Acute Hypoxemic respiratory failure Pulmonary hypertension Carinal adenopathy 03/14 Patient intubated emergently 7.5 ET T 22 cm at the lip Maintain O2 sat greater than 92% Ventilator bundle Bronchodilators every 6 hours scheduled and every [address] angiogram -pulmonary hypertension, no PE, enlarged precarinal and subcarinal lymphadenopathy Chest x-rays ABGs when clinically indicated-ABG improved 7.34/44/208/24/-1.4 03/17- CXR -consolidations B/L lobes worsened Cardiovascular: A. fib RVR Hypertension Patient arrived on Cardizem infusion-heart rate 130's, discontinued for MAP less than 60 Patient's home med amiodarone 200 mg daily increased to 400 mg twice a day Last echo 01/2015- ejection fraction 55-60%. No RWMA. PAP 35 mmHg, TV mild regurg ,MV mild regurg ECHO 03/16-EF 55- 60%. No RWMA, severe mitral valve annular calcification. Moderate mitral stenosis. Trace to mild MR, moderate TR, PAS P 55.2, trivial pulmonary valve regurgitation EPS- Dr. Lubin consulted Renal: Bilateral hydronephrosis-resolved Pyelonephrosis Acute kidney injury most likely secondary to septic shock Elevated creatinine Insert and maintain Gallo catheter 03/14-CT of the abdomen and pelvis-bilateral hydronephrosis, pyelonephrosis, perinephric stranding 03/16 renal ultrasound-no hydronephrosis Creatinine 1.6-> 1.8 UOP last 24 hours improvement-1175cc Sodium bicarbonate infusion initiated 03/16 @ 75cc/hr, decreased to 50 cc/hour -- Strict I/Os FEN/GI: History of colon cancer status post chemotherapy Abdominal hernia Will initiate trickle feeds NGT -Glucerna 1.5 @ 10cc/hr Bowel regimen Heme/ID: Septic shock Community-acquired multilobar pneumonia Lactic acidemia Bandemia-resolved Blood cultures Gram-negative rods Urine culture Gram-negative rods Follow-up sputum culture Streptococcal and legionella antigens negative ID consulted - Dr. Hansen Empiric antibiotics include vancomycin, Zosyn and patient received 1 dose of Rocephin in the ED Heme- Onc consulted regarding carinal adenopathy lymphadenopathy, patient is S/ P completion of chemotherapy 06/2016 Endocrine: Diabetes mellitus Hypothyroidism High-dose insulin medication regimen Continue Levothyroxine 50 mcgs/day Obtain thyroid panel Glucose monitoring per ICU protocol -- SSI Prophylaxis: GI Prophylaxis DC Protonix, Give famotidine BID DVT Prophylaxis -- SCDs Heparin 5000u BID Lines: Port right chest, peripheral IVs 2, left radial A-line Dispo: This patient remains critically ill with one or more organ systems which are or may become a threat to life. I have spent in excess of 30 minutes discontinuously in the care and management of this patient. This time is exclusive of procedures, and includes, but is not limited to, evaluation of the patient, review of the medical record, discussions with family, consultants, nursing staff, or respiratory therapy, and documentation in the medical record. Physician Oksana Issa MD Mar 17, 2017 09:34
[2017-03-17] MEDS: MEROPENEM INJ 500 MG in SODIUM CHLORIDE 0.9% INJ 100 ML IV SCH (12:19)
[2017-03-17] MEDS: SODIUM BICARBONATE 8.4% INJ 150 MEQ in SODIUM CHLOR 0.9% 1000 ML INJ 850 ML IV SCH (12:47)
[2017-03-17] MEDS ORDERED: VANCOMYCIN INJ 2,000 MG in SODIUM CHLORID 0.9% 500 ML INJ 500 ML IV ONE (13:00)
--- NOTE | 2017-03-17 15:38 | MB ---
cc: MARJORIE FUENTES MD DATE OF CONSULTATION: 03/17/2017 REASON FOR CONSULTATION Elevated BUN and creatinine, for evaluation. HISTORY OF PRESENT ILLNESS This is a 71-year-old female with past medical history of colon cancer, diabetes mellitus, hypertension, hypothyroidism, history of TIA, history of chemotherapy for colon cancer, was admitted to the hospital with complaint of abdominal pain, nausea and vomiting. I was called to see the patient because of elevated creatinine. The patient did not have any previous history of renal disease. Her creatinine looking back it was 0.6 last month and she came with a creatinine 1.3 and has gone up to 1.8. The patient mainly came for the pain in the left flank and vomiting. She vomited eight times in the 2-3 hours before she came to the hospital and it was found that she has respiratory failure and she was intubated. She was also diagnosed with hypotension and sepsis with urinary tract infection. She was seen by urology. She has been passing urine. The patient is intubated and sedated. She is not able to give any history. Also the history was taken from the patient's chart and the who is sitting at the bedside. According to the the patient has been sick for the last 3 weeks, has been getting gradually fatigued and before she came in here she has this left flank pain going towards her pelvic area and associated with nausea or vomiting. She also has dysuria and increased urinary urgency and frequency for the last 3-4 days before she was admitted. She has no history of taking any nonsteroidal anti-inflammatory drugs. PAST MEDICAL HISTORY 1. Hypertension. 2. Diabetes mellitus. 3. Colon cancer. 4. Atrial fibrillation. 5. Hypothyroidism. 6. History of TIA. PAST SURGICAL HISTORY 1. History of laparotomy in . 2. Appendicectomy. 3. section. 4. Endoscopy. 5. Sigmoidoscopy. 6. Hernia repair. 7. Colonoscopy. REVIEW OF SYSTEMS Review of systems cannot be taken since the patient is intubated. SOCIAL HISTORY The patient is . Lives with her . She has past history of smoking, stopped in 2009. Occasionally takes alcoholic beverages. FAMILY HISTORY Noncontributory. ALLERGIES She is allergic to CODEINE. MEDICATIONS Currently she is on following medications: 1. Vasopressin. 2. IV fluids she is getting sodium bicarbonate 50 an hour. 3. Amiodarone 400 mg b.i.d. 4. Bumex 1 mg IV b.i.d. 5. Questran 4 grams once a day. 6. Pravachol 40 mg once a day. 7. Lactulose 30 mL through the NG tube. 8. DuoNeb nebulizer. 9. Synthroid 50 mcg once a day. 10. Vancomycin one dose was given today 2 grams. 11. Meropenem she is on 500 mg IV q. 12-hours. 12. Pepcid 10 mg q. 12 hours. 13. Levaquin 750 mg q.48 hours. 14. Solu-Cortef 100 mg q. 8-hours. 15. Heparin 5000 units q. 8 hours. 16. Ibuprofen p.r.n. 17. Ativan p.r.n. PHYSICAL EXAMINATION GENERAL: The patient is intubated and sedated. VITAL SIGNS: Her last blood pressure is 121/64. She is on vasopressin for low blood pressure. Temperature is 100.1. Oxygen saturation 100% on 50% FIO2. HEENT: Pupils are mid constricted. Nonicteric sclerae. Conjunctivae pale. NECK: Supple. JVD is not elevated. LUNGS: The patient has bilateral decreased air entry with basilar rales and occasional wheezing. HEART: S1, S2, regular rhythm. ABDOMEN: Distended, soft, lax. There is no tenderness. Bowel sounds positive. EXTREMITIES: She has mild edema in the legs. INVESTIGATION WBC count 16.5, hemoglobin 10.3, platelet count 112, neutrophils 89.1%. Sodium is 137, potassium 3.7, chloride 102, bicarb 23.8, BUN 37, creatinine 1.86, corrected calcium 7.4, phosphorus 4.2. Lactic acid is 2.2, total bilirubin is 1.0, AST, ALT normal, total protein 6.0, albumin of 2.1, INR is 1.0. Urinalysis showing protein of 30 with WBC 54. Vancomycin level was 4.5, blood culture showing Klebsiella pneumonia and the urine culture also showing the same. IMAGING STUDIES The patient had ultrasound of the kidneys done which shows both kidneys are normal in size. The urinary bladder is decompressed, hydronephrosis she had earlier was improved. There is mild fullness in the right collecting system. Chest x-ray was done which shows interstitial thickening of the right lung, possible consolidation. CT scan of head was done without IV contrast and showed that she has no acute intracranial disease. Abdomen and pelvis CT scan was done which showed that she has bilateral hydronephrosis with extensive stranding, mild circumferential wall thickening of the bladder with distension, postsurgical changes in the sigmoid, rectosigmoid junction, small fat containing abdominal wall hernia. ASSESSMENT/PLAN 1. Acute kidney injury. 2. Sepsis. 3. Urinary tract infection. 4. Hypotension in shock status. 5. Respiratory failure. 6. Hypocalcemia. 7. Mild anemia. The patient has acute kidney injury, most likely this is related to hypotension and sepsis and causing acute tubular necrosis with the possibility of interstitial nephritis. She had hydronephrosis but continued to resolve after putting the Gallo catheter. She has been nonoliguric. Continue antibiotic, avoid nephrotoxins. Follow the vancomycin level and continue IV fluid. Follow the urine output and BUN and creatinine. Thank you for the consultation. Discussed with the patient's present at the bedside. I will follow the patient while she is in the hospital. MD KIRT Hogue/NIKIAL /2:00 PM /3:00 PM
[2017-03-17] MEDS: ARTIFICIAL TEARS OPTH SOLN 15 ML BTL EACH EYE SCH ×2 (17:24→18:00)
[2017-03-17] MEDS: LEVOFLOXACIN 750 MG PREMIX INJ 150 ML IV SCH (17:25)
--- NOTE | 2017-03-17 18:24 | HHI.IDPN ---
Subjective Subjective Remarks Patient is a 71-year-old female, admitted to the hospital for evaluation of abdominal pain, nausea and vomiting. She apparently has been complaining of left-sided abdominal pain goes down to the lower abdomen. She also started having nausea and vomiting. There was mention of some dysuria, urgency and frequency in the last 3-4 days. Patient also apparently has been having problem with shortness of breath over the last 3 weeks, and generalized weakness and easy fatigability. There was no mention of any fever or chills or sweats. On the morning of admission, the patient was noted to be confused, and was having more shortness of breath. There is no mention of any cough or congestion, or any complaint of any chest pain. Patient was brought into the hospital for further evaluation and treatment. Patient has had imaging studies done. CTA did not show any pulmonary embolism. CT of the abdomen and pelvis showing some mild bilateral hydronephrosis and some perinephric stranding. Her UA has pyuria. 2 blood cultures on admission are now reported as growing gram-negative carmela. Her WBC is normal. Creatinine is 1.32. Patient went into significant respiratory distress, and ended up getting intubated. She has received Zosyn, and vancomycin. Neurology has been consult. Infectious disease consultation requested to evaluate the patient with severe sepsis. Notes reviewed D/W RN Temps low grade Off all pressors Creatinine higher but UO improved BC and UC with pansensitive Klebsiella Sputum C/S pending WBC decreasing CXR worse, possible bronch tomorrow Echo with mild to mod and mod MS Renal evaluation noted Renal US - hydronephrosis resolved Monitor shows atrial fib Antibiotics Meropenem Vancomycin Levaquin Lines [place] Past Medical History Atrial fibrillation (ablation x 2 in 2013) Eliquis stopped on 12/2015 for GI bleed Colon Cancer (sigmoid colon adenocarcinoma) Compression Fracture (12/2015 L3) Depression DM Type 2 Hyperlipidemia Hypertension Hypothyroidism TIA x 2 in 2014 Past Surgical History Abdominal surgery- exploratory laparotomy Sigmoid colectomy, low anterior resection, repair of ventral hernia, 2016 Iylyhd-b-Uwta placement Previous cardiac ablation for atrial fibrillation Appendectomy Section x 2 EGD 12/2015 Flexible sigmoidoscopy 12/2015 Hernia repair Colonoscopy 2016 Allergies: Coded Allergies: codeine (Unverified Allergy, Severe, Nausea/Vomiting, 03/15/17) Uncoded Allergies: METAL (Allergy, Intermediate, hives, 03/08/16) SURGICAL STEEL (Allergy, Intermediate, hives, 03/08/16) Objective . Vital Signs Date Time Temp Pulse Resp B/P (MAP) Pulse Ox O2 Delivery O2 Flow Rate FiO2 03/17/17 18:00 99 96/57 (70) 99/58 (72) 03/17/17 17:03 100 50 03/17/17 17:00 99 12 104/67 (79) 100 111/65 (80) 03/17/17 16:45 98 12 95/59 (71) 99 101/59 (73) 03/17/17 16:32 101 10 93/64 (74) 100 100/62 (75) 03/17/17 16:15 101 6 101/64 (76) 100 83/73 (76) 03/17/17 16:00 50 03/17/17 16:00 98.8 98 1 96/52 (67) 99 96/57 (70) 03/17/17 15:45 102 6 104/58 (73) 99 183/183 (183) 03/17/17 15:30 91 4 106/58 (74) 100 174/170 (171) 03/17/17 15:15 100 10 99/56 (70) 99 93/85 (88) 03/17/17 15:00 98 12 102/63 (76) 99 85/71 (76) 03/17/17 14:45 101 12 98/55 (69) 99 92/70 (77) 03/17/17 14:30 101 12 113/67 (82) 100 122/73 (89) 03/17/17 14:15 95 1 108/72 (84) 100 119/70 (86) 03/17/17 14:00 101 1 102/65 (77) 100 92/71 (78) 03/17/17 13:45 100 0 96/59 (71) 100 102/66 (78) 03/17/17 13:30 97 1 99/61 (74) 100 90/82 (85) 03/17/17 13:15 101 0 107/58 (74) 100 106/71 (83) 03/17/17 13:00 97 0 125/58 (80) 99 113/67 (82) 03/17/17 12:45 105 7 142/91 (108) 98 132/82 (99) 9/24/17 12:31 108 0 196/98 (130) 100 138/79 (98) 03/17/17 12:15 109 6 169/92 (117) 99 160/90 (113) 03/17/17 12:01 111 29 152/100 (117) 100 174/93 (120) 03/17/17 12:00 100.0 109 28 174/95 (121) 99 03/17/17 12:00 50 03/17/17 11:45 111 14 149/98 (115) 100 192/192 (192) 03/17/17 11:42 110 12 143/91 (108) 100 164/99 (120) 03/17/17 11:30 100 12 144/78 (100) 100 135/95 (108) 03/17/17 11:15 106 8 138/78 (98) 98 123/117 (119) 03/17/17 11:00 103 8 134/68 (90) 100 124/86 (99) 03/17/17 10:45 105 6 121/64 (83) 100 119/113 (115) 03/17/17 10:31 102 6 154/89 (110) 100 131/124 (126) 03/17/17 10:15 109 28 156/91 (112) 99 156/107 (123) 03/17/17 10:00 95 11 141/75 (97) 99 134/79 (97) 03/17/17 09:45 96 12 124/79 (94) 100 135/79 (97) 03/17/17 09:41 100 50 03/17/17 09:30 92 12 130/80 (97) 100 134/79 (97) 03/17/17 09:15 94 12 113/77 (89) 100 124/74 (91) 03/17/17 09:00 94 12 129/76 (93) 99 03/17/17 08:45 96 12 113/73 (86) 99 120/71 (87) 03/17/17 08:30 100 12 114/77 (89) 98 126/76 (93) 03/17/17 08:15 99 12 124/56 (78) 100 119/72 (88) 03/17/17 08:00 50 03/17/17 08:00 100.1 96 10 112/55 (74) 100 119/70 (86) 03/17/17 07:22 100 50 03/17/17 06:00 90 109/69 (82) 114/68 (83) 03/17/17 06:00 90 03/17/17 05:48 94 130/77 03/17/17 04:51 100 50 03/17/17 04:00 98.3 90 12 114/61 (78) 100 112/84 (93) 03/17/17 04:00 90 03/17/17 04:00 50 03/17/17 02:00 102 03/17/17 00:00 99.1 99 11 128/60 (82) 100 125/71 (89) 03/17/17 00:00 50 03/17/17 00:00 99 03/16/17 23:53 15 03/16/17 23:51 93 136/75 03/16/17 22:00 95 03/16/17 20:00 50 03/16/17 20:00 100.3 96 12 114/58 (76) 100 120/71 (87) 03/16/17 20:00 96 03/16/17 19:22 100 50 03/17/17 03/17/17 03/18/17 15:00 23:00 07:00 Intake Total 1100 ml 930 ml Output Total 1175 ml Balance 1100 ml -245 ml Intake IV Total 1100 ml 795 ml Tube Feeding 35 ml Tube Irrigant 100 ml Output Urine Total 1000 ml Gastric Drainage Total 175 ml . Laboratory Tests Test 03/16/17 04:36 03/17/17 03:20 White Blood Count 19.7 TH/MM3 16.5 TH/MM3 Red Blood Count 3.83 MIL/MM3 3.58 MIL/MM3 Hemoglobin 11.1 GM/DL 10.3 GM/DL Hematocrit 33.7 % 31.4 % Mean Corpuscular Volume 88.0 FL 87.6 FL Mean Corpuscular Hemoglobin 28.9 PG 28.8 PG Mean Corpuscular Hemoglobin Concent 32.9 % 32.8 % Red Cell Distribution Width 15.8 % 16.1 % Platelet Count 107 TH/MM3 112 TH/MM3 Mean Platelet Volume 10.3 FL 10.4 FL Neutrophils (%) (Auto) 89.8 % 89.1 % Lymphocytes (%) (Auto) 3.9 % 3.5 % Monocytes (%) (Auto) 6.1 % 6.4 % Eosinophils (%) (Auto) 0.0 % 0.6 % Basophils (%) (Auto) 0.2 % 0.4 % Neutrophils # (Auto) 17.7 TH/MM3 14.7 TH/MM3 Lymphocytes # (Auto) 0.8 TH/MM3 0.6 TH/MM3 Monocytes # (Auto) 1.2 TH/MM3 1.1 TH/MM3 Eosinophils # (Auto) 0.0 TH/MM3 0.1 TH/MM3 Basophils # (Auto) 0.0 TH/MM3 0.1 TH/MM3 CBC Comment DIFF FINAL DIFF FINAL Differential Comment Laboratory Tests Test 03/15/17 22:10 03/16/17 04:34 03/16/17 04:36 03/16/17 15:30 Random Cortisol 45.9 MCG/DL Lactic Acid Level 3.0 mmol/L 1.5 mmol/L Blood Urea Nitrogen 27 MG/DL Creatinine 1.66 MG/DL Random Glucose 208 MG/DL Total Protein 5.8 GM/DL Albumin 2.3 GM/DL Calcium Level 6.9 MG/DL Phosphorus Level 3.1 MG/DL 4.0 MG/DL Magnesium Level 1.2 MG/DL Alkaline Phosphatase 60 U/L Aspartate Amino Transf (AST/SGOT) 26 U/L Alanine Aminotransferase (ALT/SGPT) 23 U/L Total Bilirubin 1.2 MG/DL Sodium Level 135 MEQ/L Potassium Level 3.7 MEQ/L Chloride Level 102 MEQ/L Carbon Dioxide Level 22.6 MEQ/L Anion Gap 10 MEQ/L Estimat Glomerular Filtration Rate 31 ML/MIN Protein Corrected Calcium 7.6 MG/DL Ammonia 43 MCMOL/L Thyroxine (T4) 12.0 MCG/DL Thyroid Stimulating Hormone 3rd Gen 1.880 uIU/ML Test 03/17/17 03:20 Blood Urea Nitrogen 37 MG/DL Creatinine 1.86 MG/DL Random Glucose 234 MG/DL Total Protein 6.0 GM/DL Albumin 2.1 GM/DL Calcium Level 6.8 MG/DL Phosphorus Level 4.2 MG/DL Magnesium Level 1.9 MG/DL Alkaline Phosphatase 52 U/L Aspartate Amino Transf (AST/SGOT) 17 U/L Alanine Aminotransferase (ALT/SGPT) 16 U/L Total Bilirubin 1.0 MG/DL Sodium Level 137 MEQ/L Potassium Level 3.7 MEQ/L Chloride Level 102 MEQ/L Carbon Dioxide Level 23.8 MEQ/L Anion Gap 11 MEQ/L Estimat Glomerular Filtration Rate 27 ML/MIN Lactic Acid Level 2.2 mmol/L Protein Corrected Calcium 7.4 MG/DL Ammonia 44 MCMOL/L Microbiology Date/Time Source Procedure Growth Status 03/15/17 22:11 Blood Line Aerobic Blood Culture - Preliminary NO GROWTH IN 1 DAY Resulted 03/15/17 22:11 Blood Line Anaerobic Blood Culture - Preliminary NO GROWTH IN 1 DAY Resulted 03/15/17 05:55 Blood Peripheral Aerobic Blood Culture - Final Klebsiella Pneumoniae Complete 03/15/17 05:55 Anaerobic Blood Culture - Final Klebsiella Pneumoniae Complete 03/15/17 05:50 Blood Peripheral Aerobic Blood Culture - Final Klebsiella Pneumoniae Complete 03/15/17 05:50 Anaerobic Blood Culture - Final Klebsiella Pneumoniae Complete 03/16/17 01:12 Sputum Endotracheal Gram Stain - Final Resulted 03/16/17 01:12 Sputum Endotracheal Sputum Culture - Preliminary NO GROWTH IN 24 HOURS. Resulted 03/15/17 06:03 Urine Random Urine Legionella Antigen - Final PRESUMPTIVE NEGATIVE FOR LEGIONELLA P... Complete 03/15/17 06:03 Urine Random Urine Streptococcus pneumoniae Antigen (M - Final PRESUMPTIVE NEGATIVE FOR STREPTOCOCCU... Complete 03/15/17 06:03 Urine Clean Catch Urine Culture - Final Klebsiella Pneumoniae Complete Imaging Chest X-Ray 03/16/17 0600 Signed Impressions: Service Date/Time: Thursday, March 16, 2017 04:58 - CONCLUSION: Persisting consolidation left mid and lower lung and improving infiltrates in the lower right lung. Antonio Voss MD Renal Ultrasound 03/16/17 0000 Signed Impressions: Service Date/Time: Thursday, March 16, 2017 11:27 - CONCLUSION: The hydronephrosis has resolved. Urinary bladder is decompressed.. Jose Flores MD CT Angiography 03/15/17 0520 Signed Impressions: Service Date/Time: Wednesday, March 15, 2017 07:46 - CONCLUSION: 1. No evidence for pulmonary embolism. 2. Cardiomegaly with enlargement of pulmonary arteries likely from pulmonary arterial hypertension. 3. Bibasilar patchy densities could be atelectasis or infiltrate. 4. Mosaic attenuation which can be seen with small airway disease. 5. Enlarged precarinal and subcarinal adenopathy. Jai Queen MD Head CT 03/15/17 0000 Signed Impressions: Service Date/Time: Wednesday, March 15, 2017 07:47 - CONCLUSION: No acute intracranial disease. Jai Queen MD Abdomen/Pelvis CT 03/15/17 0000 Signed Impressions: Service Date/Time: Wednesday, March 15, 2017 07:51 - CONCLUSION: 1. Bilateral hydronephrosis with extensive stranding in the perinephric regions greater on the left. 2. Mild circumferential wall thickening within the bladder with mild distention. 3. Postsurgical changes rectosigmoid junction. 4. Small fat containing abdominal wall hernias. Jai Queen MD Physical Exam GENERAL: Sedated on the vent, looks comfortable on the vent SKIN: Warm and dry. No generalized rash HEAD: Atraumatic. Normocephalic. No temporal wasting, or tenderness. EYES: [place] conjunctiva. No petechia or hemorrhage. Pupils equal, round and reactive to light. No scleral icterus. No injection or drainage. EARS, NOSE AND THROAT: Nose without bleeding or purulent nasal discharge. She is orally intubated. NECK: Trachea midline. Supple and no meningeal signs CARDIOVASCULAR: Irregular rate and rhythm. No murmurs, rubs or gallops heard RESPIRATORY: Coarse breath sounds. Decreased at the bases. ABDOMEN: Mildly distended, globular abdomen, no reaction to palpation. Has 2 long healed incisions, one midline and one horizontal. Bowel sounds present and hypoactive. No guarding. No rebound. No organomegaly. EXTREMITIES: No clubbing, cyanosis, or edema. No joint effusion, has good ROM. Well perfused and warm. NEUROLOGICAL: Sedated, no Babinski, no ankle clonus PSYCHIATRIC: Unable to assess LINE: No evidence of infection - port R upper chest : Gallo in place, urine with sediment Assessment & Plan Remarks IMPRESSION Severe sepsis, Klebsiella urosepsis, - off pressors - has pyelonephritis (has perinephric stranding on CT and mild hydro, no stone seen, no colitis on CT, has complaints) Respiratory failure, bilateral infiltrates, ?PNA - prob multifactorial: Fluid, inflammatory, ?PNA Known Colon CA, with (+) LN, undergoing chemo - S/P sigmoid colectomy, low anterior resection Renal insufficiency due to sepsis Atrial fib, chronic, previous ablation done and MS RECOMMENDATION Follow C/S and adjust Abx Continue Vanco - will ask pharm to assist with dosing Continue Merem and Levaquin for GNR (Patient critically ill, and immunocompromised) Follow sputum and if nothing else will deescalate Abx Monitor progress D/W RN Spoke with and 2 sons Rosaura Hansen MD Mar 17, 2017 18:24
[2017-03-17] MEDS: MIDAZOLAM 100 MG/NS 100 ML DRIP Premix IV PRN (20:21)
[2017-03-18] VITALS (30 sets, daily range): BP systolic 102–190; BP diastolic 65–190; PULSE 88–124; RESP 1–13; TEMP 97.6–100.4; O2SAT 96–100
[2017-03-18] MEDS: MEROPENEM INJ 500 MG in SODIUM CHLORIDE 0.9% INJ 100 ML IV SCH ×2 (00:29→11:43)
[2017-03-18] MEDS: HYDROCORTISONE SOD SUCCINATE 100 MG VIAL IV PUSH SCH ×3 (00:29→17:12)
[2017-03-18] MEDS: RESP: ALBUTEROL 2.5 MG/IPRATROPIUM 0.5 MG NEB (SCH) INH ×3 (04:19→16:46)
[2017-03-18 04:27] LABS: HEMATOCRIT 31.1 % (35.0-46.0); MEAN CORPUSCULAR HEMOGLOBIN 28.6 PG (27.0-34.0); MEAN CORPUSCULAR HGB CONC 32.5 % (32.0-36.0); PLATELET COUNT 78 TH/MM3 (150-450); RED BLOOD COUNT 3.54 MIL/MM3 (4.00-5.30); RED CELL DISTRIBUTION WIDTH 15.8 % (11.6-17.2); WHITE BLOOD COUNT 10.9 TH/MM3 (4.0-11.0)
[2017-03-18 04:43] LABS: REVIEW FLAG FINAL
[2017-03-18 05:23] LABS: BICARBONATE 29.8 MEQ/L (21.0-32.0); MAGNESIUM 1.9 MG/DL (1.5-2.5); POTASSIUM 3.3 MEQ/L (3.5-5.1)
--- NOTE | 2017-03-18 05:49 | RADRPT ---
EXAM DATE/TIME: 03/18/2017 03:45 [facility] COMPARISON: No previous studies available for comparison. INDICATIONS : Shortness of breath, possible pulmonary disease. MEDICAL HISTORY : Carcinoma, colon. Hypertension Cardiovascular disease. Diabetes CVA SURGICAL HISTORY : Appendectomy. section. ENCOUNTER: Subsequent ACUITY: 4 - 6 days PAIN SCORE: Non-responsive. LOCATION: Bilateral chest FINDINGS: A single view of the chest demonstrates endotracheal tube in good position. Nasogastric tube enters s tomach. Right [id number]-v-[id number] in superior vena cava. Basilar airspace disease similar to March 17. Cardiomegaly. CONCLUSION: 1. Apparatus in good position. Relatively stable basilar airspace disease. Samuel Lin MD on March 18, 2017 at 5:47 Board Certified Radiologist. This report was verified electronically.
[2017-03-18 05:56] LABS: CALCIUM-PROTEIN CORRECTED 7.6 MG/DL (8.5-10.1)
[2017-03-18] MEDS: LEVOTHYROXINE SODIUM 50 MCG TAB PO SCH (06:04)
[2017-03-18] MEDS: fentaNYL 2,500 MCG/NS 250 ML IV PRN (06:04)
[2017-03-18] MEDS: HEPARIN SODIUM - SQ 10,000 UNITS/ML VIAL SQ SCH ×3 (06:04→20:46)
[2017-03-18 07:25] LABS: BLOOD GAS BASE EXCESS 2.9 mmol/L (-2-2); BLOOD GAS CARBOXYHEMOGLOBIN 1.4 % (0-4); BLOOD GAS HCO3 27 mmol/L (22-26); BLOOD GAS METHEMOGLOBIN 1.4 % (0-2); BLOOD GAS O2 HGB SATURATION 97 % (90-100); BLOOD GAS OXYGEN CONTENT 14.1 Vol % (12.0-20.0); BLOOD GAS PCO2 44 mmHg (38-42); BLOOD GAS PO2 208 mmHg (61-120); CRITICAL VALUE NO; FIO2 50 %; OXYGEN DEVICE VENTILATOR; TEMP CORR TO 98.6; VENT SETTINGS A/C550/12/PEEP10
[2017-03-18 07:26] LABS: DRAW SITE ALINE; STAT NO
[2017-03-18] MEDS: INSULIN ASPART SUPPLEMENTAL SCALE SQ SCH ×4 (08:00→21:00)
[2017-03-18] MEDS: DOCUSATE SODIUM 50 MG/SENNA 8.6 MG TAB PO SCH ×2 (08:39→20:46)
[2017-03-18] MEDS: AMIODARONE 200 MG TAB PO SCH ×2 (08:39→20:47)
[2017-03-18] MEDS: PRAVASTATIN SOD 40 MG TAB PO SCH (08:39)
[2017-03-18] MEDS: FAMOTIDINE 20 MG/2 ML VIAL IV PUSH SCH ×2 (08:40→20:47)
[2017-03-18] MEDS: CHOLESTYRAMINE 4 GM PACKET PO SCH (08:40)
[2017-03-18] MEDS: SODIUM CHLORIDE 0.9% FLUSH 10 ML FLUSH IV FLUSH SCH ×2 (08:40→20:47)
[2017-03-18] MEDS: BUMETANIDE INJ 1 MG/4 ML VIAL IV PUSH SCH ×2 (08:40→17:12)
[2017-03-18] MEDS: LACTULOSE SYRUP 20 GM/30 ML CUP NG SCH (08:40)
[2017-03-18] MEDS: ARTIFICIAL TEARS OPTH SOLN 15 ML BTL EACH EYE SCH ×3 (09:00→17:12)
[2017-03-18] MEDS ORDERED: PHARMACY ORDERED LAB ONE (09:45)
--- NOTE | 2017-03-18 10:46 | HHI.FPPN ---
Subjective Remarks Patient examined this morning. Temperature 99.0, pulse 93 with signs of A. fib , blood pressure ranging between 102-130/65-119, map ranging between 79-123. She has been weaned off pressors. Patient remains intubated with FiO2 50 and PEEP of 10. Encouraged the family that being weaned off the pressors is a sign of improvement. Will continue to monitor the patient as critical care is still on board. (Sumit Flor MD, R3) Objective Vitals Vital Signs Date Time Temp Pulse Resp B/P (MAP) Pulse Ox O2 Delivery O2 Flow Rate FiO2 03/18/17 10:30 98 40 03/18/17 10:12 45 03/18/17 10:00 50 03/18/17 08:28 100 50 03/18/17 08:00 50 03/18/17 06:00 97 03/18/17 06:00 97 113/77 (89) 122/70 (87) 03/18/17 04:00 93 03/18/17 04:00 50 03/18/17 04:00 99.0 93 13 102/65 (77) 99 111/71 (84) 03/18/17 02:00 90 03/18/17 00:00 50 03/18/17 00:00 97.6 88 12 102/68 (79) 100 130/119 (123) 03/18/17 00:00 88 03/17/17 22:00 95 03/17/17 21:18 100 50 03/17/17 20:00 96 03/17/17 20:00 50 03/17/17 20:00 97.3 96 10 93/63 (73) 100 104/92 (96) 03/17/17 18:00 99 96/57 (70) 99/58 (72) 03/17/17 17:03 100 50 03/17/17 17:00 99 12 104/67 (79) 100 111/65 (80) 03/17/17 16:45 98 12 95/59 (71) 99 101/59 (73) 03/17/17 16:32 101 10 93/64 (74) 100 100/62 (75) 03/17/17 16:15 101 6 101/64 (76) 100 83/73 (76) 03/17/17 16:00 50 03/17/17 16:00 98.8 98 1 96/52 (67) 99 96/57 (70) 03/17/17 15:45 102 6 104/58 (73) 99 183/183 (183) 03/17/17 15:30 91 4 106/58 (74) 100 174/170 (171) 03/17/17 15:15 100 10 99/56 (70) 99 93/85 (88) 03/17/17 15:00 98 12 102/63 (76) 99 85/71 (76) 03/17/17 14:45 101 12 98/55 (69) 99 92/70 (77) 03/17/17 14:30 101 12 113/67 (82) 100 122/73 (89) 03/17/17 14:15 95 1 108/72 (84) 100 119/70 (86) 03/17/17 14:00 101 1 102/65 (77) 100 92/71 (78) 03/17/17 13:45 100 0 96/59 (71) 100 102/66 (78) 03/17/17 13:30 97 1 99/61 (74) 100 90/82 (85) 03/17/17 13:15 101 0 107/58 (74) 100 106/71 (83) 03/17/17 13:00 97 0 125/58 (80) 99 113/67 (82) 03/17/17 12:45 105 7 142/91 (108) 98 132/82 (99) 03/17/17 12:31 108 0 196/98 (130) 100 138/79 (98) 03/17/17 12:15 109 6 169/92 (117) 99 160/90 (113) 03/17/17 12:01 111 29 152/100 (117) 100 174/93 (120) 03/17/17 12:00 100.0 109 28 174/95 (121) 99 03/17/17 12:00 50 03/17/17 11:45 111 14 149/98 (115) 100 192/192 (192) 03/17/17 11:42 110 12 143/91 (108) 100 164/99 (120) 03/17/17 11:30 100 12 144/78 (100) 100 135/95 (108) 03/17/17 11:15 106 8 138/78 (98) 98 123/117 (119) 03/17/17 11:00 103 8 134/68 (90) 100 124/86 (99) 03/17/17 10:45 105 6 121/64 (83) 100 119/113 (115) I/O 03/17/17 03/17/17 03/17/17 03/18/17 03/18/17 03/18/17 07:00 15:00 23:00 07:00 15:00 23:00 Intake Total 929.7 ml 1100 ml 930 ml 2603 ml Output Total 750 ml 1175 ml 725 ml Balance 179.7 ml 1100 ml -245 ml 1878 ml Intake IV Total 809.7 ml 1100 ml 795 ml 2371 ml Tube Feeding 35 ml 112 ml Tube Irrigant 120 ml 100 ml 120 ml Output Urine Total 650 ml 1000 ml 725 ml Gastric Drainage Total 100 ml 175 ml (Sumit Flor MD, R3) Result Diagram: 03/18/1734003/18/17340 Objective Remarks GENERAL: Well-nourished, well-developed obese female. Sedated and intubated. SKIN: Warm and dry. HEAD: Normocephalic. EYES: No scleral icterus. No injection or drainage. NECK: Supple, trachea midline. No JVD or lymphadenopathy. CARDIOVASCULAR: Irregularly irregular rate and rhythm without murmurs, gallops, or rubs. RESPIRATORY: Breath sounds equal bilaterally. No accessory muscle use. GASTROINTESTINAL: Abdomen soft, non-tender, distended. Bowel sounds present. MUSCULOSKELETAL: No cyanosis, 2+ pitting edema in lower extremities bilaterally (Sumit Flor MD, R3) Date of Insertion: Mar 15, 2017 (Sumit Flor MD, R3) A/P Assessment and Plan Patient is a 71 year old female with a PMH significant for colon cancer s/p chemotherapy, atrial fibrillation on Eliquis, HTN, DM type 2, and MDD who presented to the ED with abdominal pain, nausea and vomiting and was found to have severe sepsis secondary to PNA and pyelonephritis in addition to atrial fibrillation with RVR. She rapidly decompensated into respiratory failure and was intubated on 03/15, now in critical condition with sepsis. Discharge Planning Unclear timetable, patient in critical condition. sdw Dr. Greenberg (Sumit Flor MD, R3) Attending Attestation Patient seen and examined. Case reviewed and discussed with the resident team. Agree with plan of care as discussed with me and documented in the resident note. spoke to her family- her and youngest son and her sister in law about her condition. she is "turning the corner" as her BPs are great and her WBC is great as well. (Yari,Lydia Pal MD) Problem List: (1) Sepsis due to Gram-negative organism with septic shock ICD Codes: A41.50 - Gram-negative sepsis, unspecified; R65.21 - Severe sepsis with septic shock Status: Acute Plan: Neurologic: AMS-toxic encephalopathy secondary to sepsis History of TIA x 2 Major Depressive Disorder Neurochecks per ICU protocol Patient intubated for airway protection continues on propofol and fentanyl infusions for ventilator synchrony Ammonia elevated at 67 on admission, 44 yesterday, continue lactulose 03/15 CT brain-no intracranial abnormality Neurology consulted- Dr. Huff to consider MRI brain within the next few days Daily sedation vacation Respiratory: Acute Hypoxemic respiratory failure Pulmonary hypertension Carinal adenopathy 03/15 Patient intubated emergently FiO2 50, PEEP 10 today Maintain O2 sat greater than 92% Ventilator bundle Duonebs Q6H scheduled and Q2H when necessary 03/15 CT angiogram -pulmonary hypertension, no PE, enlarged precarinal and subcarinal lymphadenopathy 03/16 CXR shows persisting consolidation left mid and lower lung and improving infiltrates in the lower right lung 03/18 CXR: Stable basilar airspace disease Pulmonary HTN not present on last echo in 03/16 Echo shows EF 55-60%, severe mitral annular calcification with moderate mitral valve stenosis, mildly dilated right atrium, mild to mod aortic valve stenosis, pulmonary arterial pressure 55.2 Cardiovascular: A. fib RVR Hypertension Patient initially on Cardizem infusion-heart rate now in 90's, discontinued for MAP < 60 Amiodarone 400mg PO BID Last echo 02/05- ejection fraction 55-60%. No RWMA. APA 35 mmHg, TV mild regurg, MV mild regurg 03/16 Echo results as above EPS- Dr. Lubin consulted Renal: Bilateral hydronephrosis Pyelonephrosis Continue Gallo catheter, output 470ml in past 24 hours 03/14-CT of the abdomen and pelvis-bilateral hydronephrosis, pyelonephrosis, perinephric stranding -- Strict I/Os Urology consulted- 03/16 renal US shows resolution of hydronephrosis, urinary bladder decompressed Creatinine trending up to 1.53 today FEN/GI: History of colon cancer status post chemotherapy and colectomy Abdominal hernia Initiate tube feeds today NGT to LIWS Heme/ID: Septic Shock due to gram negative carmela Community-acquired multilobar pneumonia Pyelonephritis Lactic acidemia Bandemia 03/15 Blood cultures growing Klebsiella pneumoniae 03/15 urine culture growing Klebsiella pneumonia 03/16 sputum culture: No growth to date 2 days legionella and streptococcus antigens negative ID consulted - Dr. Hansen, treat with Vanc, IV Merem and Levaquin for GNR Heme- Onc consulted regarding carinal adenopathy lymphadenopathy, patient is S/ P completion of chemotherapy 09/2016. Repeat CT chest in 1-2 months to evaluate mediastinal lymph nodes as outpatient Trend lactate level 6.4->4.2->4.9->3.0->1.5->2.2 Endocrine: Diabetes mellitus Hypothyroidism High-dose SSI Continue Levothyroxine 50 mcgs/day Prophylaxis: GI Prophylaxis with famotidine BID DVT Prophylaxis with SCDs and Heparin 5000u Q8H Lines: Port right chest, peripheral IVs 2, left radial A-line (2) Pyelonephritis ICD Codes: N12 - Tubulo-interstitial nephritis, not specified as acute or chronic (3) PNA (pneumonia) ICD Codes: J18.9 - Pneumonia, unspecified organism (4) Atrial fibrillation with rapid ventricular response ICD Codes: I48.91 - Atrial fibrillation with rapid ventricular response Status: Acute (5) Diabetes mellitus, type II ICD Codes: E11.9 - Type 2 diabetes mellitus Status: Chronic (6) Hypertension ICD Codes: I10 - Essential (primary) hypertension Status: Chronic (7) Hypothyroidism ICD Codes: E03.9 - Hypothyroidism Status: Acute (8) Nutrition, metabolism, and development symptoms ICD Codes: R63.8 - Symptoms concerning nutrition, metabolism, and development Status: Acute (Sumit Flor MD, R3) Problem Qualifiers (1) PNA (pneumonia): Qualified Codes: J18.9 - Pneumonia, unspecified organism (2) Diabetes mellitus, type II: Qualified Codes: E11.9 - Type 2 diabetes mellitus without complications; Z79.4 - continuous churn buttermaker (current) use of insulin (3) Hypertension: Qualified Codes: I10 - Essential (primary) hypertension (4) Hypothyroidism: Qualified Codes: E03.9 - Hypothyroidism, unspecified Sumit Flor MD, R3 Mar 18, 2017 10:46 Lydia Greenberg MD Mar 18, 2017 11:14
--- NOTE | 2017-03-18 11:10 | HHI.CCPN ---
Subjective Remarks/Hospital Course This is a 71 year old female with a PMH significant for colon cancer s/p chemotherapy, atrial fibrillation previously on Eliquis discontinued for GI bleeding, HTN, DM type 2, and MDD who presented to the ED with abdominal pain, nausea and vomiting.The patient stated that she had pain in her left side this morning that radiated to her lower abdomen and caused her to have nausea and vomiting. She states that she has been short of breath for the past 3 weeks and progressively more fatigued. Her states that she has been becoming progressively weaker and sleeping excessively at times. At 3AM this morning, he noticed that she was trying to talk but "wasn't making any sense." He states that she has been so short of breath that she has been having difficulty finishing sentences without becoming short of breath. She notes dysuria, urinary urgency and frequency for the past 3-4 days. Imaging studies and laboratory studies were performed. Notably CTA of the chest reveal pulmonary hypertension and carinal lymphadenopathy. CT abdomen and pelvis revealed bilateral hydronephrosis and pyelonephrosis with perinephric stranding. Cultures were sent, the patient was noted to have bacteremia notably gram- negative rods. The patient was in A. fib RVR in the ED the patient received Cardizem bolus and was placed on a Cardizem infusion and transferred to ICU. Upon admission to ICU the patient became progressively short of breath with escalating alternation in mental status critical care medicine was consulted. The patient's heart rate at that time was in the 130s systolic pressure 140s and O2 sat high 80s. Brief discussion with purpose of emergent intubation. Subjective: 03/16: Overnight the patient continued to have hemodynamic instability, now septic shock. Patient continues in A. fib with HR low 100's. Patient on maximum doses currently of norepinephrine and vasopressin infusions. [place]- cortisone added to medication regimen, Sodium bicarbonate infusion initiated. Imaging revealed hydronephrosis and pyelonephrosis patient seen by Dr. Larose, urine output now decreased to 150cc total over the last 12hrs, with continued elevation in creatinine. Planned renogram this a.m., to rule out obstruction with possible placement of nephrostomy tubes, and nephrology also consulted. Patient was seen by Dr. Candelario, carinal /hilar lymphadenopathy most likely not associated with carcinoma, plan for outpatient scan in 2-3 months. FiO2 was decreased to 60% overnight, ECHO pending her evaluation of cardiac status and pulmonary hypertension. 03/17: Overnight vasopressors weaned significantly, currently on lower doses. The patient continues on sodium bicarbonate infusion. Renogram canceled secondary to hemodynamic instability yesterday renal ultrasound performed revealed no hydronephrosis, creatinine continues to be elevated most likely secondary to acute kidney injury secondary to hypotension and septic shock. Nephrology consult pending. Echo revealed severe mitral valve stenosis and calcification with pulmonary hypertension and PASP 55.2 03/18: Remains sedated, orally intubated on mech vent. Off levophed. Objective Vital Signs Date Time Temp Pulse Resp B/P (MAP) Pulse Ox O2 Delivery O2 Flow Rate FiO2 03/18/17 10:30 98 40 03/18/17 06:00 97 03/18/17 06:00 113/77 (89) 122/70 (87) 03/18/17 04:00 99.0 13 03/15/17 10:34 Nasal Cannula 4.00 Intake and Output 03/18/17 03/18/17 03/19/17 08:00 16:00 00:00 Intake Total 2603 ml Output Total 725 ml Balance 1878 ml Result Diagram: 03/18/17 0341 03/18/17 0341 Other Results Laboratory Tests Test 03/18/17 03:41 03/18/17 07:15 White Blood Count 10.9 TH/MM3 Red Blood Count 3.54 MIL/MM3 Hemoglobin 10.1 GM/DL Hematocrit 31.1 % Mean Corpuscular Volume 88.0 FL Mean Corpuscular Hemoglobin 28.6 PG Mean Corpuscular Hemoglobin Concent 32.5 % Red Cell Distribution Width 15.8 % Platelet Count 78 TH/MM3 Mean Platelet Volume 10.6 FL Blood Urea Nitrogen 42 MG/DL Creatinine 1.53 MG/DL Random Glucose 161 MG/DL Total Protein 5.7 GM/DL Calcium Level 6.9 MG/DL Phosphorus Level 3.3 MG/DL Magnesium Level 1.9 MG/DL Sodium Level 142 MEQ/L Potassium Level 3.3 MEQ/L Chloride Level 105 MEQ/L Carbon Dioxide Level 29.8 MEQ/L Anion Gap 7 MEQ/L Estimat Glomerular Filtration Rate 34 ML/MIN Protein Corrected Calcium 7.6 MG/DL Blood Gas Puncture Site ANKUR Blood Gas Patient Temperature 98.6 Blood Gas HCO3 27 mmol/L Blood Gas Base Excess 2.9 mmol/L Blood Gas Oxygen Saturation 97 % Arterial Blood pH 7.41 Arterial Blood Partial Pressure CO2 44 mmHg Arterial Blood Partial Pressure O2 208 mmHg Arterial Blood Oxygen Content 14.1 Vol % Arterial Blood Carboxyhemoglobin 1.4 % Arterial Blood Methemoglobin 1.4 % Blood Gas Hemoglobin 10.0 G/DL Oxygen Delivery Device VENTILATOR Blood Gas Ventilator Setting A/C550/12/PEEP10 Blood Gas Inspired Oxygen 50 % Imaging Last Impressions Chest X-Ray 03/17/17 0000 Signed Impressions: Service Date/Time: Friday, March 17, 2017 06:22 - CONCLUSION: Persistent infiltrates consolidation left lower lung and patchy infiltrates in the central right lung. Antonio Voss MD Renal Ultrasound 03/16/17 0000 Signed Impressions: Service Date/Time: Thursday, March 16, 2017 11:27 - CONCLUSION: The hydronephrosis has resolved. Urinary bladder is decompressed.. Joes Flores MD CT Angiography 03/15/17 0520 Signed Impressions: Service Date/Time: Wednesday, March 15, 2017 07:46 - CONCLUSION: 1. No evidence for pulmonary embolism. 2. Cardiomegaly with enlargement of pulmonary arteries likely from pulmonary arterial hypertension. 3. Bibasilar patchy densities could be atelectasis or infiltrate. 4. Mosaic attenuation which can be seen with small airway disease. 5. Enlarged precarinal and subcarinal adenopathy. Jai Queen MD Head CT 03/15/17 0000 Signed Impressions: Service Date/Time: Wednesday, March 15, 2017 07:47 - CONCLUSION: No acute intracranial disease. Jai Queen MD Abdomen/Pelvis CT 03/15/17 0000 Signed Impressions: Service Date/Time: Wednesday, March 15, 2017 07:51 - CONCLUSION: 1. Bilateral hydronephrosis with extensive stranding in the perinephric regions greater on the left. 2. Mild circumferential wall thickening within the bladder with mild distention. 3. Postsurgical changes rectosigmoid junction. 4. Small fat containing abdominal wall hernias. Jai Queen MD Last Impressions Chest X-Ray 03/16/17 0600 Signed Impressions: Service Date/Time: Thursday, March 16, 2017 04:58 - CONCLUSION: Persisting consolidation left mid and lower lung and improving infiltrates in the lower right lung. Antonio Voss MD CT Angiography 03/15/1720 Signed Impressions: Service Date/Time: Wednesday, March 15, 2017 07:46 - CONCLUSION: 1. No evidence for pulmonary embolism. 2. Cardiomegaly with enlargement of pulmonary arteries likely from pulmonary arterial hypertension. 3. Bibasilar patchy densities could be atelectasis or infiltrate. 4. Mosaic attenuation which can be seen with small airway disease. 5. Enlarged precarinal and subcarinal adenopathy. Jai Queen MD Head CT 03/15/17 Signed Impressions: Service Date/Time: Wednesday, March 15, 2017 07:47 - CONCLUSION: No acute intracranial disease. Jai Queen MD Abdomen/Pelvis CT 03/15/17 Signed Impressions: Service Date/Time: Wednesday, March 15, 2017 07:51 - CONCLUSION: 1. Bilateral hydronephrosis with extensive stranding in the perinephric regions greater on the left. 2. Mild circumferential wall thickening within the bladder with mild distention. 3. Postsurgical changes rectosigmoid junction. 4. Small fat containing abdominal wall hernias. Jai Queen MD Last Impressions Chest X-Ray 03/15/17519 Signed Impressions: Service Date/Time: Wednesday, March 15, 2017 05:41 - CONCLUSION: Opacity in the perihilar region bilaterally suggesting either central infiltrates or adenopathy. Antonio Voss MD CT Angiography 03/15/1720 Signed Impressions: Service Date/Time: Wednesday, March 15, 2017 07:46 - CONCLUSION: 1. No evidence for pulmonary embolism. 2. Cardiomegaly with enlargement of pulmonary arteries likely from pulmonary arterial hypertension. 3. Bibasilar patchy densities could be atelectasis or infiltrate. 4. Mosaic attenuation which can be seen with small airway disease. 5. Enlarged precarinal and subcarinal adenopathy. Jai Queen MD Head CT 03/15/17 Signed Impressions: Service Date/Time: Wednesday, March 15, 2017 07:47 - CONCLUSION: No acute intracranial disease. Jai Queen MD Abdomen/Pelvis CT 03/15/17 Signed Impressions: Service Date/Time: Wednesday, March 15, 2017 07:51 - CONCLUSION: 1. Bilateral hydronephrosis with extensive stranding in the perinephric regions greater on the left. 2. Mild circumferential wall thickening within the bladder with mild distention. 3. Postsurgical changes rectosigmoid junction. 4. Small fat containing abdominal wall hernias. Jai Queen MD Objective Remarks GENERAL: Obese critically ill-appearing female , sedated and intubated. SKIN: Warm and dry. HEAD: Atraumatic. Normocephalic. EYES: Pupils equal and round. No scleral icterus. No injection or drainage. ENT: No nasal bleeding or discharge. Mucous membranes pink and moist. NECK: Trachea midline. No JVD. CARDIOVASCULAR: Irregularly irregular rhythm. RESPIRATORY: Mechanical ventilation. Clear to auscultation. Breath sounds equal bilaterally. GASTROINTESTINAL: Abdomen soft, protuberant non-tender, nondistended. No guarding. MUSCULOSKELETAL: Extremities without clubbing, cyanosis, or edema. No obvious deformities. NEUROLOGICAL: GCS 11T .RASS 0. No gross focal/sensory deficits. Follows commands, moves extremities 4 Procedures 03/16- Renogram cancelled . Renal US performed. 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 Start daily CPAP trials. Bronchodilators every 6 hours scheduled and every [address] angiogram -pulmonary hypertension, no PE, enlarged precarinal and subcarinal lymphadenopathy Chest x-rays ABGs when clinically indicated-ABG improved 7.34/44/208/24/-1.4 03/17- CXR -consolidations B/L lobes worsened Cardiovascular: A. fib RVR Hypertension Patient arrived on Cardizem infusion-heart rate 130's, discontinued for MAP less than 60 Patient's home med amiodarone 200 mg daily increased to 400 mg twice a day Last echo 01/2015- ejection fraction 55-60%. No RWMA. PAP 35 mmHg, TV mild regurg ,MV mild regurg ECHO 03/16-EF 55- 60%. No RWMA, severe mitral valve annular calcification. Moderate mitral stenosis. Trace to mild MR, moderate TR, PAS P 55.2, trivial pulmonary valve regurgitation EPS- Dr. Lubin consulted Renal: Bilateral hydronephrosis-resolved Pyelonephrosis Acute kidney injury most likely secondary to septic shock Elevated creatinine Insert and maintain Gallo catheter 03/14-CT of the abdomen and pelvis-bilateral hydronephrosis, pyelonephrosis, perinephric stranding 03/16 renal ultrasound-no hydronephrosis Creatinine 1.6-> 1.8 UOP last 24 hours improvement-1175cc Sodium bicarbonate infusion initiated 03/16 @ 75cc/hr, decreased to 50 cc/hour -- Strict I/Os FEN/GI: History of colon cancer status post chemotherapy Abdominal hernia NGT -Advance tube feeds with Glucerna 1.5 @ 30cc/hr with goal of 60cc/hr. Bowel regimen Heme/ID: Septic shock Community-acquired multilobar pneumonia Lactic acidemia Bandemia-resolved Blood cultures Gram-negative rods Urine culture Gram-negative rods Follow-up sputum culture Streptococcal and legionella antigens negative ID consulted - Dr. Hansen Empiric antibiotics include vancomycin, Zosyn and patient received 1 dose of Rocephin in the ED Heme- Onc consulted regarding carinal adenopathy lymphadenopathy, patient is S/ P completion of chemotherapy 06/2016 Endocrine: Diabetes mellitus Hypothyroidism High-dose insulin medication regimen Continue Levothyroxine 50 mcgs/day Obtain thyroid panel Glucose monitoring per ICU protocol -- SSI Prophylaxis: GI Prophylaxis DC Protonix, Give famotidine BID DVT Prophylaxis -- SCDs Heparin 5000u BID Lines: Port right chest, peripheral IVs 2, left radial A-line Dispo: This patient remains critically ill with one or more organ systems which are or may become a threat to life. I have spent in excess of 30 minutes discontinuously in the care and management of this patient. This time is exclusive of procedures, and includes, but is not limited to, evaluation of the patient, review of the medical record, discussions with family, consultants, nursing staff, or respiratory therapy, and documentation in the medical record. Fernando Srinivasan MD Mar 18, 2017 11:10
[2017-03-18] MEDS: VASOPRESSIN INJ 40 UNITS in DEXTROSE 5% IN WATER 100ML INJ 98 ML IV SCH ×2 (13:08)
[2017-03-18] MEDS ORDERED: cefTRIAXone INJ 2,000 MG in SODIUM CHLORIDE 0.9% INJ 100 ML IV SCH (15:00)
--- NOTE | 2017-03-18 16:52 | HHI.NPPN ---
Subjective History of Present Illness 71-year-old female with past medical history of colon cancer, diabetes mellitus, hypertension, hypothyroidism, history of TIA, history of chemotherapy for colon cancer, was admitted to the hospital with complaint of abdominal pain, nausea and vomiting. I was called to see the patient because of elevated creatinine. The patient did not have any previous history of renal disease. Her creatinine looking back it was 0.6 last month and she came with a creatinine 1.3 and has gone up to 1.8. Additional Remarks Patient remain and sedated, not in distress. Review of Systems General General Remarks Intubated and sedated. Objective Data Data 03/18/17 03/19/17 19:00 07:00 Intake Total 100 ml Balance 100 ml Intake IV Total 100 ml Vital Signs Date Time Temp Pulse Resp B/P (MAP) Pulse Ox O2 Delivery O2 Flow Rate FiO2 03/18/17 16:47 98 35 03/18/17 16:00 40 03/18/17 16:00 100.4 111 5 146/93 (110) 98 107/99 (102) 03/18/17 16:00 111 03/18/17 15:30 114 12 145/82 (103) 99 146/85 (105) 03/18/17 15:00 115 9 158/99 (118) 99 111/95 (100) 03/18/17 14:30 111 7 151/95 (113) 98 132/93 (106) 03/18/17 14:00 101 10 124/81 (95) 99 132/76 (94) 03/18/17 14:00 101 03/18/17 13:30 105 8 135/85 (102) 99 135/78 (97) 03/18/17 13:00 104 7 128/75 (92) 99 102/95 (97) 03/18/17 12:30 107 8 122/76 (91) 98 128/74 (92) 03/18/17 12:00 40 03/18/17 12:00 98.9 102 9 142/77 (98) 99 143/79 (100) 03/18/17 12:00 102 03/18/17 11:30 103 7 136/79 (98) 99 03/18/17 11:00 104 1 119/67 (84) 98 124/70 (88) 03/18/17 10:30 102 1 115/67 (83) 98 118/67 (84) 03/18/17 10:30 98 40 03/18/17 10:12 45 03/18/17 10:03 101 4 114/74 (87) 99 125/70 (88) 03/18/17 10:00 101 9 129/74 (92) 99 03/18/17 10:00 50 03/18/17 10:00 101 03/18/17 09:30 99 12 122/73 (89) 100 127/79 (95) 03/18/17 09:00 99 10 124/81 (95) 100 03/18/17 08:30 98 10 125/73 (90) 100 124/73 (90) 03/18/17 08:28 100 50 03/18/17 08:00 50 03/18/17 08:00 97 03/18/17 08:00 98.7 97 10 111/72 (85) 100 120/71 (87) 03/18/17 07:30 92 1 114/70 (85) 100 108/99 (102) 03/18/17 07:00 97 4 104/69 (81) 99 120/71 (87) 03/18/17 06:00 97 03/18/17 06:00 97 113/77 (89) 122/70 (87) 03/18/17 04:00 93 03/18/17 04:00 50 03/18/17 04:00 99.0 93 13 102/65 (77) 99 111/71 (84) 03/18/17 02:00 90 03/18/17 00:00 50 03/18/17 00:00 97.6 88 12 102/68 (79) 100 130/119 (123) 03/18/17 00:00 88 03/17/17 22:00 95 03/17/17 21:18 100 50 03/17/17 20:00 96 03/17/17 20:00 50 03/17/17 20:00 97.3 96 10 93/63 (73) 100 104/92 (96) 03/17/17 18:00 99 96/57 (70) 99/58 (72) 03/17/17 17:03 100 50 03/17/17 17:00 99 12 104/67 (79) 100 111/65 (80) -: 03/18/17 0341 03/18/17 0341 Physical Exam General Appearance Remarks Intubated and sedated. Eyes Eye Exam: Pupils Equal Throat Throat Exam: Oral Mucosa [place] & Moist Neck Neck Exam: Neck Supple, Trachea Midline Pulmonary Resp Exam: Rhonchi, Decreased Bases, Diminished Breath Sounds, Poor Inspiratory Effort Cardiology CV Exam: Regular, Tachycardia Gastrointestinal/Abdomen GI Exam: Soft, Non-Tender, Bowel Sounds Present, Non-Distended Extremeties Extremities Exam: Trace Edema Neurologic Neuro Exam: Sedated Assessment/Plan Assessment Summary: ASH/Acute Renal Failure, Hypotension Problem List: (1) Respiratory failure ICD Codes: J96.90 - Respiratory failure, unspecified, unspecified whether with hypoxia or hypercapnia (2) Acute kidney failure ICD Codes: N17.9 - Acute kidney failure, unspecified (3) Hypothyroidism ICD Codes: E03.9 - Hypothyroidism Status: Acute (4) Hypertension ICD Codes: I10 - Essential (primary) hypertension Status: Chronic (5) PNA (pneumonia) ICD Codes: J18.9 - Pneumonia, unspecified organism (6) Hyperlipidemia ICD Codes: E78.5 - Hyperlipidemia Status: Acute (7) Cancer, colon ICD Codes: C18.9 - Malignant neoplasm of colon, unspecified Status: Acute Plan Patient has been non oliguric. Creatinine is slightly better. K was low and replaced. Continue Bumex, has been non oliguric. Follow the urine out put and BMP. Avoid Nephrotoxins. D/W the at the bed side. Problem Qualifiers (1) Hypothyroidism: Qualified Codes: E03.9 - Hypothyroidism, unspecified (2) Hypertension: Qualified Codes: I10 - Essential (primary) hypertension (3) PNA (pneumonia): Qualified Codes: J18.9 - Pneumonia, unspecified organism Aixa Figueroa MD Mar 18, 2017 16:52
--- NOTE | 2017-03-18 17:16 | PD.ONC.PN ---
Subjective Subjective Remarks Late entry. Saw pt int the morning. She remains sedated on vent. Sister in law at the bedside. Objective Data Date Time Temp Pulse Resp B/P (MAP) Pulse Ox O2 Delivery O2 Flow Rate FiO2 03/18/17 16:47 98 35 03/18/17 16:00 40 03/18/17 16:00 100.4 111 5 146/93 (110) 98 107/99 (102) 03/18/17 16:00 111 03/18/17 15:30 114 12 145/82 (103) 99 146/85 (105) 03/18/17 15:00 115 9 158/99 (118) 99 111/95 (100) 03/18/17 14:30 111 7 151/95 (113) 98 132/93 (106) 03/18/17 14:00 101 10 124/81 (95) 99 132/76 (94) 03/18/17 14:00 101 03/18/17 13:30 105 8 135/85 (102) 99 135/78 (97) 03/18/17 13:00 104 7 128/75 (92) 99 102/95 (97) 03/18/17 12:30 107 8 122/76 (91) 98 128/74 (92) 03/18/17 12:00 40 03/18/17 12:00 98.9 102 9 142/77 (98) 99 143/79 (100) 03/18/17 12:00 102 03/18/17 11:30 103 7 136/79 (98) 99 03/18/17 11:00 104 1 119/67 (84) 98 124/70 (88) 03/18/17 10:30 102 1 115/67 (83) 98 118/67 (84) 03/18/17 10:30 98 40 03/18/17 10:12 45 03/18/17 10:03 101 4 114/74 (87) 99 125/70 (88) 03/18/17 10:00 101 9 129/74 (92) 99 03/18/17 10:00 50 03/18/17 10:00 101 03/18/17 09:30 99 12 122/73 (89) 100 127/79 (95) 03/18/17 09:00 99 10 124/81 (95) 100 03/18/17 08:30 98 10 125/73 (90) 100 124/73 (90) 03/18/17 08:28 100 50 03/18/17 08:00 50 03/18/17 08:00 97 03/18/17 08:00 98.7 97 10 111/72 (85) 100 120/71 (87) 03/18/17 07:30 92 1 114/70 (85) 100 108/99 (102) 03/18/17 07:00 97 4 104/69 (81) 99 120/71 (87) 03/18/17 06:00 97 03/18/17 06:00 97 113/77 (89) 122/70 (87) 03/18/17 04:00 93 03/18/17 04:00 50 03/18/17 04:00 99.0 93 13 102/65 (77) 99 111/71 (84) 03/18/17 02:00 90 03/18/17 00:00 50 03/18/17 00:00 97.6 88 12 102/68 (79) 100 130/119 (123) 03/18/17 00:00 88 03/17/17 22:00 95 03/17/17 21:18 100 50 03/17/17 20:00 96 03/17/17 20:00 50 03/17/17 20:00 97.3 96 10 93/63 (73) 100 104/92 (96) 03/17/17 18:00 99 96/57 (70) 99/58 (72) 03/18/17 03/18/17 03/18/17 07:00 15:00 23:00 Intake Total 2603 ml 100 ml Output Total 725 ml Balance 1878 ml 100 ml Result Diagram: 03/18/17 0341 03/18/17 0341 Laboratory Results Laboratory Tests Test 03/18/17 03:41 03/18/17 07:15 03/18/17 12:00 White Blood Count 10.9 TH/MM3 Red Blood Count 3.54 MIL/MM3 Hemoglobin 10.1 GM/DL Hematocrit 31.1 % Mean Corpuscular Volume 88.0 FL Mean Corpuscular Hemoglobin 28.6 PG Mean Corpuscular Hemoglobin Concent 32.5 % Red Cell Distribution Width 15.8 % Platelet Count 78 TH/MM3 Mean Platelet Volume 10.6 FL Blood Urea Nitrogen 42 MG/DL Creatinine 1.53 MG/DL Random Glucose 161 MG/DL Total Protein 5.7 GM/DL Calcium Level 6.9 MG/DL Phosphorus Level 3.3 MG/DL Magnesium Level 1.9 MG/DL Sodium Level 142 MEQ/L Potassium Level 3.3 MEQ/L Chloride Level 105 MEQ/L Carbon Dioxide Level 29.8 MEQ/L Anion Gap 7 MEQ/L Estimat Glomerular Filtration Rate 34 ML/MIN Protein Corrected Calcium 7.6 MG/DL Blood Gas Puncture Site ANKUR Blood Gas Patient Temperature 98.6 Blood Gas HCO3 27 mmol/L Blood Gas Base Excess 2.9 mmol/L Blood Gas Oxygen Saturation 97 % Arterial Blood pH 7.41 Arterial Blood Partial Pressure CO2 44 mmHg Arterial Blood Partial Pressure O2 208 mmHg Arterial Blood Oxygen Content 14.1 Vol % Arterial Blood Carboxyhemoglobin 1.4 % Arterial Blood Methemoglobin 1.4 % Blood Gas Hemoglobin 10.0 G/DL Oxygen Delivery Device VENTILATOR Blood Gas Ventilator Setting A/C550/12/PEEP10 Blood Gas Inspired Oxygen 50 % Urine Eosinophils NONE SEEN /HPF Urine Random Sodium 49 MEQ/L Culture Results Microbiology Date/Time Source Procedure Growth Status 03/15/17 22:11 Blood Line Aerobic Blood Culture - Preliminary NO GROWTH IN 2 DAYS Resulted 03/15/17 22:11 Blood Line Anaerobic Blood Culture - Preliminary NO GROWTH IN 2 DAYS Resulted 03/16/17 01:12 Sputum Endotracheal Gram Stain - Final Complete 03/16/17 01:12 Sputum Endotracheal Sputum Culture - Final NO GROWTH IN 48 HOURS. Complete Imaging Studies Last 24 hours Impressions Chest X-Ray 03/18/17 0600 Signed Impressions: Service Date/Time: Saturday, March 18, 2017 03:45 - CONCLUSION: 1. Apparatus in good position. Relatively stable basilar airspace disease. Samuel Lin MD Administered Medications Medications (Trade) Dose Ordered Sig/Chiqui Route PRN Reason Start Time Stop Time Status Last Admin Dose Admin Diltiazem HCl 125 mg/Sodium Chloride 125 ml @ 5 mls/hr TITRATE PRN IV Tachycardia 03/15/17 05:45 Future Hold 03/15/17 06:35 Acetaminophen (Tylenol) 650 mg Q4H PRN PO TEMPERATURE > 101 F 03/15/17 10:15 03/16/17 22:18 Cholestyramine Resin (Questran 4 Gm Pkt) 4 gm DAILY PO 03/16/17 09:00 03/18/17 08:40 Levothyroxine Sodium (Synthroid) 50 mcg DAILY@0600 PO 03/16/17 06:00 03/18/17 06:04 Pravastatin Sodium (Pravachol) 40 mg DAILY PO 03/16/17 09:00 03/18/17 08:39 Bumetanide (Bumex Inj) 1 mg BID@,18 IV PUSH 03/15/17 18:00 03/18/17 08:40 Sodium Chloride (NS Flush) 2 ml BID IV FLUSH 03/15/17 21:00 03/18/17 08:40 Artificial Tears (Tears Naturale Opth Soln) 1 drop TID EACH EYE 03/15/17 18:00 03/17/17 17:24 Albuterol/ Ipratropium (Duoneb Neb) 1 ampule Q6HR NEB INH 03/15/17 16:00 03/18/17 16:46 Miscellaneous Information 1 Q361D XX 03/15/17 14:30 03/15/17 14:30 Chlorhexidine Gluconate (Chlorhexidine 2% Cloth) 3 pack Taper DAILY@04 TOP 03/16/17 04:00 03/12/18 03:59 03/17/17 04:10 Senna/Docusate Sodium (Elsa-Colace) 1 tab BID PO 03/15/17 21:00 03/18/17 08:39 Insulin Aspart (NovoLOG SUPPLEMENTAL SCALE) 1 ACHS SLIDING SCALE SQ 03/15/17 17:00 03/18/17 11:43 Heparin Sodium (Porcine) (Heparin Inj) 5,000 units Q8HR SQ 03/15/17 22:00 03/18/17 14:05 Lactulose (Lactulose Liq) 30 ml DAILY NG 03/15/17 16:30 03/18/17 08:40 Fentanyl Citrate 250 ml @ 5 mls/hr TITRATE PRN IV Sedation 03/15/17 16:45 03/18/17 06:04 Levofloxacin/ Dextrose 150 ml @ 100 mls/hr Q48H IV 03/15/17 18:00 03/17/17 17:25 Midazolam HCl 100 ml @ 2 mls/hr TITRATE PRN IV SEDATION 03/15/17 18:00 03/17/17 20:21 Vasopressin 40 units/Dextrose 100 ml @ 6 mls/hr [id number] IV 03/15/17 19:17 03/17/17 05:48 Norepinephrine Bitartrate 250 ml @ 7.5 mls/hr TITRATE PRN IV Blood pressure management 03/15/17 22:45 03/16/17 23:51 Potassium Chloride 100 ml @ 50 mls/hr Q2H PRN IV For Potassium 3.3 - 3.5 mEq/L 03/16/17 09:45 03/18/17 15:46 Magnesium Sulfate 2 gm/Sodium Chloride 100 ml @ 50 mls/hr UNSCH PRN IV For Magnesium 1.2 - 1.6 mg/dL 03/16/17 09:45 03/16/17 11:07 Hydrocortisone Sodium Succinate (SoluCORTEF INJ) 100 mg Q8H IV PUSH 03/16/17 10:00 03/18/17 11:22 Amiodarone HCl (Cordarone) 400 mg BID PO 03/16/17 21:00 03/18/17 08:39 Famotidine (Pepcid Inj) 10 mg Q12HR IV PUSH 03/17/17 09:00 03/18/17 08:40 Ceftriaxone Sodium 2000 mg/ Sodium Chloride 100 ml @ 200 mls/hr Q24H IV 03/18/17 15:00 03/18/17 14:46 Objective Remarks GENERAL: On vent SKIN: Warm and dry. HEAD: Normocephalic. EYES: No scleral icterus. No injection or drainage. NECK: Supple, trachea midline. No JVD or lymphadenopathy. LYMPHATIC: No adenopathy. CARDIOVASCULAR: Regular rate and rhythm without murmurs. RESPIRATORY: Breath sounds equal bilaterally. No accessory muscle use. GASTROINTESTINAL: Abdomen soft, non-tender, nondistended. EXTREMITIES: No cyanosis, + edema. MUSCULOSKELETAL: Adequate muscle tone. NEUROLOGICAL: Sedated Assessment/Plan Assessment 1. Sigmoid colon adenocarcinoma. She had a large mass in the sigmoid colon and biopsy showed moderately differentiated adenocarcinoma. She underwent resection in February of 2016 and final pathology showed poorly differentiated adenocarcinoma with mucinous features measuring 5.5 cm arising in the villous adenoma. There was large tumor deposit 6 cm in size within the pericolonic soft tissue. There was metastatic adenocarcinoma involving 11 out of 12 lymph nodes. Pathologic stage T2 N2b M0. She received adjuvant Xeloda in September of 2016. Recent evaluation did not show any evidence of recurrent disease. I do not think the current sepsis is related to her malignancy. 2. Nonspecific mediastinal lymph node. CT of the chest showed prominent lymph nodes in the subcarinal and precarinal areas. There is no other metastatic disease noted on the CT of the chest, abdomen and pelvis. The patient has pneumonia and this mediastinal adenopathy is likely reactive. 3. Septic shock. CT of the abdomen showed bilateral hydronephrosis and sign of pyelonephritis. CT of the chest also showed possible pneumonia. She is currently on antibiotic per infectious disease. 4. Respiratory failure due to sepsis and pneumonia. The patient is still on vent. Plan PLAN: 1. 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 2. No oncologic intervention planned at this time. 3. Repeat CT of the chest in a month or two to evaluate mediastinal lymph nodes. Sly Candelario MD Mar 18, 2017 17:16
[2017-03-18] MEDS: IBUPROFEN 600 MG TAB PO PRN (23:35)
[2017-03-19] VITALS (39 sets, daily range): BP systolic 103–200; BP diastolic 68–193; PULSE 81–123; RESP 11–20; TEMP 98.5–100.3; O2SAT 92–100
[2017-03-19] MEDS: HYDROCORTISONE SOD SUCCINATE 100 MG VIAL IV PUSH SCH ×3 (02:30→17:45)
[2017-03-19] MEDS: RESP: ALBUTEROL 2.5 MG/IPRATROPIUM 0.5 MG NEB (SCH) INH ×3 (03:33→15:17)
[2017-03-19] MEDS: CHLORHEXIDINE GLUCONATE 2 % 1 PACK (2 CLOTHS) TOP SCH (04:00)
[2017-03-19 04:42] LABS: AUTOMATED NEUTROPHIL # 10.2 TH/MM3 (1.8-7.7); BASOPHIL % 0.1 % (0.0-2.0); HEMATOCRIT 34.2 % (35.0-46.0); LYMPH % 6.7 % (9.0-44.0); LYMPHOCYTE # 0.8 TH/MM3 (1.0-4.8); MEAN CELL VOLUME 88.5 FL (80.0-100.0); MEAN CORPUSCULAR HEMOGLOBIN 28.9 PG (27.0-34.0); MEAN CORPUSCULAR HGB CONC 32.6 % (32.0-36.0); MONO % 10.3 % (0.0-8.0); NEUT % 82.9 % (16.0-70.0); PLATELET COUNT 110 TH/MM3 (150-450); RED BLOOD COUNT 3.86 MIL/MM3 (4.00-5.30); RED CELL DISTRIBUTION WIDTH 15.9 % (11.6-17.2); WHITE BLOOD COUNT 12.3 TH/MM3 (4.0-11.0)
[2017-03-19 04:46] LABS: HEMO FLAGS AUTO DIFF
[2017-03-19 05:12] LABS: BICARBONATE 31.3 MEQ/L (21.0-32.0); CALCIUM-PROTEIN CORRECTED 7.8 MG/DL (8.5-10.1); POTASSIUM 3.4 MEQ/L (3.5-5.1); TOTAL BILIRUBIN ADULT 0.7 MG/DL (0.2-1.0)
[2017-03-19 05:28] LABS: PLATELET ESTIMATE SMEAR LOW (NORMAL); PLATELET MORPHOLOGY NORMAL (NORMAL); SCAN/DIFF AUTO DIFF CONFIRMED
[2017-03-19] MEDS: LEVOTHYROXINE SODIUM 50 MCG TAB PO SCH (05:44)
[2017-03-19] MEDS: HEPARIN SODIUM - SQ 10,000 UNITS/ML VIAL SQ SCH ×3 (05:44→22:00)
[2017-03-19] MEDS: ACETAMINOPHEN 325 MG TAB PO PRN (05:44)
[2017-03-19] MEDS: POTASSIUM CHLOR 40 MEQ PREMIX 100 ML IV PRN (06:09)
[2017-03-19] MEDS: fentaNYL 2,500 MCG/NS 250 ML IV PRN ×3 (06:18→22:31)
[2017-03-19] MEDS: VASOPRESSIN INJ 40 UNITS in DEXTROSE 5% IN WATER 100ML INJ 98 ML IV SCH ×4 (06:37→23:17)
[2017-03-19] MEDS: INSULIN ASPART SUPPLEMENTAL SCALE SQ SCH ×4 (08:00→21:00)
[2017-03-19] MEDS: LACTULOSE SYRUP 20 GM/30 ML CUP NG SCH (08:06)
[2017-03-19] MEDS: AMIODARONE 200 MG TAB PO SCH ×2 (08:07→21:00)
[2017-03-19] MEDS: PRAVASTATIN SOD 40 MG TAB PO SCH (08:07)
[2017-03-19] MEDS: DOCUSATE SODIUM 50 MG/SENNA 8.6 MG TAB PO SCH ×2 (08:07→21:00)
[2017-03-19] MEDS: CHOLESTYRAMINE 4 GM PACKET PO SCH (08:08)
[2017-03-19] MEDS: FAMOTIDINE 20 MG/2 ML VIAL IV PUSH SCH ×2 (08:08→21:00)
[2017-03-19] MEDS: ARTIFICIAL TEARS OPTH SOLN 15 ML BTL EACH EYE SCH ×3 (08:08→17:44)
[2017-03-19] MEDS: SODIUM CHLORIDE 0.9% FLUSH 10 ML FLUSH IV FLUSH SCH ×2 (08:08→21:00)
[2017-03-19] MEDS: BUMETANIDE INJ 1 MG/4 ML VIAL IV PUSH SCH ×2 (08:08→17:45)
--- NOTE | 2017-03-19 09:12 | HHI.IDPN ---
Subjective Subjective Remarks Patient is a 71-year-old female, admitted to the hospital for evaluation of abdominal pain, nausea and vomiting. She apparently has been complaining of left-sided abdominal pain goes down to the lower abdomen. She also started having nausea and vomiting. There was mention of some dysuria, urgency and frequency in the last 3-4 days. Patient also apparently has been having problem with shortness of breath over the last 3 weeks, and generalized weakness and easy fatigability. There was no mention of any fever or chills or sweats. On the morning of admission, the patient was noted to be confused, and was having more shortness of breath. There is no mention of any cough or congestion, or any complaint of any chest pain. Patient was brought into the hospital for further evaluation and treatment. Patient has had imaging studies done. CTA did not show any pulmonary embolism. CT of the abdomen and pelvis showing some mild bilateral hydronephrosis and some perinephric stranding. Her UA has pyuria. 2 blood cultures on admission are now reported as growing gram-negative carmela. Her WBC is normal. Creatinine is 1.32. Patient went into significant respiratory distress, and ended up getting intubated. She has received Zosyn, and vancomycin. Neurology has been consult. Infectious disease consultation requested to evaluate the patient with severe sepsis. Notes reviewed D/W RN Temps low grade Off all pressors Creatinine higher but UO improved BC and UC with pansensitive Klebsiella Sputum C/S negative WBC slightly higher Repeat BC negative Echo with mild to mod and mod MS Renal US - hydronephrosis resolved Monitor shows atrial fib Antibiotics Rocephin Levaquin Lines [place] Past Medical History Atrial fibrillation (ablation x 2 in 2013) Eliquis stopped on 12/2015 for GI bleed Colon Cancer (sigmoid colon adenocarcinoma) Compression Fracture (12/2015 L3) Depression DM Type 2 Hyperlipidemia Hypertension Hypothyroidism TIA x 2 in 2014 Past Surgical History Abdominal surgery- exploratory laparotomy Sigmoid colectomy, low anterior resection, repair of ventral hernia, 2016 [id number] placement Previous cardiac ablation for atrial fibrillation Appendectomy Section x 2 EGD 12/2015 Flexible sigmoidoscopy 12/2015 Hernia repair Colonoscopy 2016 Allergies: Coded Allergies: codeine (Unverified Allergy, Severe, Nausea/Vomiting, 03/15/17) Uncoded Allergies: METAL (Allergy, Intermediate, hives, 03/08/16) SURGICAL STEEL (Allergy, Intermediate, hives, 03/08/16) Objective . Vital Signs Date Time Temp Pulse Resp B/P (MAP) Pulse Ox O2 Delivery O2 Flow Rate FiO2 03/19/17 08:30 107 12 135/80 (98) 98 03/19/17 08:00 98.9 102 12 126/77 (93) 98 03/19/17 08:00 35 03/19/17 08:00 102 03/19/17 07:46 99 35 03/19/17 07:00 111 11 133/81 (98) 98 136/75 (95) 03/19/17 06:44 12 03/19/17 06:00 123 132/88 (103) 103/93 (96) 03/19/17 06:00 113 03/19/17 04:10 99 35 03/19/17 04:00 119 03/19/17 04:00 40 03/19/17 04:00 99.0 119 12 139/91 (107) 96 164/89 (114) 03/19/17 02:00 115 03/19/17 01:05 98 35 03/19/17 00:35 12 03/19/17 00:00 40 03/19/17 00:00 100.3 111 12 144/74 (97) 97 193/193 (193) 03/19/17 00:00 111 03/18/17 22:00 120 03/18/17 20:00 40 03/18/17 20:00 99.0 119 12 190/190 (190) 96 03/18/17 20:00 121 03/18/17 18:15 123 132/88 (103) 103/93 (96) 03/18/17 18:00 124 03/18/17 16:47 98 35 03/18/17 16:00 40 03/18/17 16:00 100.4 111 5 146/93 (110) 98 107/99 (102) 03/18/17 16:00 111 03/18/17 15:30 114 12 145/82 (103) 99 146/85 (105) 03/18/17 15:00 115 9 158/99 (118) 99 111/95 (100) 03/18/17 14:30 111 7 151/95 (113) 98 132/93 (106) 03/18/17 14:00 101 10 124/81 (95) 99 132/76 (94) 03/18/17 14:00 101 03/18/17 13:30 105 8 135/85 (102) 99 135/78 (97) 03/18/17 13:00 104 7 128/75 (92) 99 102/95 (97) 03/18/17 12:30 107 8 122/76 (91) 98 128/74 (92) 03/18/17 12:00 40 03/18/17 12:00 98.9 102 9 142/77 (98) 99 143/79 (100) 03/18/17 12:00 102 03/18/17 11:30 103 7 136/79 (98) 99 03/18/17 11:00 104 1 119/67 (84) 98 124/70 (88) 03/18/17 10:30 102 1 115/67 (83) 98 118/67 (84) 03/18/17 10:30 98 40 03/18/17 10:12 45 03/18/17 10:03 101 4 114/74 (87) 99 125/70 (88) 03/18/17 10:00 101 9 129/74 (92) 99 03/18/17 10:00 50 03/18/17 10:00 101 03/18/17 09:30 99 12 122/73 (89) 100 127/79 (95) 03/19/17 03/19/17 03/20/17 14:59 22:59 06:59 Intake Total 11 ml Balance 11 ml Intake IV Total 11 ml . Laboratory Tests Test 03/18/17 03:41 03/19/17 04:30 White Blood Count 10.9 TH/MM3 12.3 TH/MM3 Red Blood Count 3.54 MIL/MM3 3.86 MIL/MM3 Hemoglobin 10.1 GM/DL 11.1 GM/DL Hematocrit 31.1 % 34.2 % Mean Corpuscular Volume 88.0 FL 88.5 FL Mean Corpuscular Hemoglobin 28.6 PG 28.9 PG Mean Corpuscular Hemoglobin Concent 32.5 % 32.6 % Red Cell Distribution Width 15.8 % 15.9 % Platelet Count 78 TH/MM3 110 TH/MM3 Mean Platelet Volume 10.6 FL 9.9 FL Neutrophils (%) (Auto) 82.9 % Lymphocytes (%) (Auto) 6.7 % Monocytes (%) (Auto) 10.3 % Eosinophils (%) (Auto) 0.0 % Basophils (%) (Auto) 0.1 % Neutrophils # (Auto) 10.2 TH/MM3 Lymphocytes # (Auto) 0.8 TH/MM3 Monocytes # (Auto) 1.3 TH/MM3 Eosinophils # (Auto) 0.0 TH/MM3 Basophils # (Auto) 0.0 TH/MM3 CBC Comment AUTO DIFF Differential Comment AUTO DIFF CONFIRMED Platelet Estimate LOW Platelet Morphology Comment NORMAL Laboratory Tests Test 03/18/17 03:41 03/19/17 04:30 Blood Urea Nitrogen 42 MG/DL 49 MG/DL Creatinine 1.53 MG/DL 1.69 MG/DL Random Glucose 161 MG/DL 250 MG/DL Total Protein 5.7 GM/DL 6.2 GM/DL Calcium Level 6.9 MG/DL 7.3 MG/DL Phosphorus Level 3.3 MG/DL Magnesium Level 1.9 MG/DL Sodium Level 142 MEQ/L 144 MEQ/L Potassium Level 3.3 MEQ/L 3.4 MEQ/L Chloride Level 105 MEQ/L 104 MEQ/L Carbon Dioxide Level 29.8 MEQ/L 31.3 MEQ/L Anion Gap 7 MEQ/L 9 MEQ/L Estimat Glomerular Filtration Rate 34 ML/MIN 30 ML/MIN Protein Corrected Calcium 7.6 MG/DL 7.8 MG/DL Albumin 2.2 GM/DL Alkaline Phosphatase 83 U/L Aspartate Amino Transf (AST/SGOT) 34 U/L Alanine Aminotransferase (ALT/SGPT) 18 U/L Total Bilirubin 0.7 MG/DL Ammonia 51 MCMOL/L Imaging Chest X-Ray 03/18/17 0600 Signed Impressions: Service Date/Time: Saturday, March 18, 2017 03:45 - CONCLUSION: 1. Apparatus in good position. Relatively stable basilar airspace disease. Samuel Lin MD Chest X-Ray 03/17/17 0000 Signed Impressions: Service Date/Time: Friday, March 17, 2017 06:22 - CONCLUSION: Persistent infiltrates consolidation left lower lung and patchy infiltrates in the central right lung. Antonio Voss MD Chest X-Ray 03/16/17 0600 Signed Impressions: Service Date/Time: Thursday, March 16, 2017 04:58 - CONCLUSION: Persisting consolidation left mid and lower lung and improving infiltrates in the lower right lung. Antonio Voss MD Renal Ultrasound 03/16/17 0000 Signed Impressions: Service Date/Time: Thursday, March 16, 2017 11:27 - CONCLUSION: The hydronephrosis has resolved. Urinary bladder is decompressed.. Jose Flores MD CT Angiography 03/15/17 0520 Signed Impressions: Service Date/Time: Wednesday, March 15, 2017 07:46 - CONCLUSION: 1. No evidence for pulmonary embolism. 2. Cardiomegaly with enlargement of pulmonary arteries likely from pulmonary arterial hypertension. 3. Bibasilar patchy densities could be atelectasis or infiltrate. 4. Mosaic attenuation which can be seen with small airway disease. 5. Enlarged precarinal and subcarinal adenopathy. Jai Queen MD Head CT 03/15/17 0000 Signed Impressions: Service Date/Time: Wednesday, March 15, 2017 07:47 - CONCLUSION: No acute intracranial disease. Jai Queen MD Abdomen/Pelvis CT 03/15/17 0000 Signed Impressions: Service Date/Time: Wednesday, March 15, 2017 07:51 - CONCLUSION: 1. Bilateral hydronephrosis with extensive stranding in the perinephric regions greater on the left. 2. Mild circumferential wall thickening within the bladder with mild distention. 3. Postsurgical changes rectosigmoid junction. 4. Small fat containing abdominal wall hernias. Jai Queen MD Physical Exam GENERAL: Sedated on the vent, looks comfortable on the vent SKIN: Warm and dry. No generalized rash HEAD: Atraumatic. Normocephalic. No temporal wasting, or tenderness. EYES: [place] conjunctiva. No petechia or hemorrhage. Pupils equal, round and reactive to light. No scleral icterus. No injection or drainage. EARS, NOSE AND THROAT: Nose without bleeding or purulent nasal discharge. She is orally intubated. NECK: Trachea midline. Supple and no meningeal signs CARDIOVASCULAR: Irregular rate and rhythm. No murmurs, rubs or gallops heard RESPIRATORY: Coarse breath sounds. Decreased at the bases. ABDOMEN: Mildly distended, globular abdomen, no reaction to palpation. Bowel sounds present and hypoactive. No guarding. No rebound. No organomegaly. EXTREMITIES: No clubbing, cyanosis. Edema both hands. Well perfused and warm. NEUROLOGICAL: Sedated, no Babinski, no ankle clonus PSYCHIATRIC: Unable to assess LINE: No evidence of infection - port R upper chest : Gallo in place, urine better Assessment & Plan Remarks IMPRESSION Severe sepsis, Klebsiella urosepsis, - off pressors - has pyelonephritis (has perinephric stranding on CT and mild hydro, no stone seen, no colitis on CT, has complaints) Respiratory failure, bilateral infiltrates, ?PNA - prob multifactorial: Fluid, inflammatory, ?PNA - sputum C/S negative Known Colon CA, with (+) LN, undergoing chemo - S/P sigmoid colectomy, low anterior resection Renal insufficiency due to sepsis Atrial fib, chronic, previous ablation done and MS RECOMMENDATION Continue Levaquin Stop Rocephin Repeat UA and C/S Follow temps - repeat BC if temp spikes Monitor progress Weaning as tolerated D/W Rosaura Lo MD Mar 19, 2017 09:12
--- NOTE | 2017-03-19 09:29 | HHI.FPPN ---
Subjective Remarks Patient seen and examined this morning. Temperature 98.9, pulse ranges between 102-123, blood pressure ranging between 126-133/77-88, intubated with respirations at 12, FiO2 35, and PEEP of 5. Currently patient is stable and sedated. (Sumit Flor MD, R3) Objective Vitals Vital Signs Date Time Temp Pulse Resp B/P (MAP) Pulse Ox O2 Delivery O2 Flow Rate FiO2 03/19/17 08:30 107 12 135/80 (98) 98 03/19/17 08:00 98.9 102 12 126/77 (93) 98 03/19/17 08:00 35 03/19/17 08:00 102 03/19/17 07:46 99 35 03/19/17 07:00 111 11 133/81 (98) 98 136/75 (95) 03/19/17 06:44 12 03/19/17 06:00 123 132/88 (103) 103/93 (96) 03/19/17 06:00 113 03/19/17 04:10 99 35 03/19/17 04:00 119 03/19/17 04:00 40 03/19/17 04:00 99.0 119 12 139/91 (107) 96 164/89 (114) 03/19/17 02:00 115 03/19/17 01:05 98 35 03/19/17 00:35 12 03/19/17 00:00 40 03/19/17 00:00 100.3 111 12 144/74 (97) 97 193/193 (193) 03/19/17 00:00 111 03/18/17 22:00 120 03/18/17 20:00 40 03/18/17 20:00 99.0 119 12 190/190 (190) 96 03/18/17 20:00 121 03/18/17 18:15 123 132/88 (103) 103/93 (96) 03/18/17 18:00 124 03/18/17 16:47 98 35 03/18/17 16:00 40 03/18/17 16:00 100.4 111 5 146/93 (110) 98 107/99 (102) 03/18/17 16:00 111 03/18/17 15:30 114 12 145/82 (103) 99 146/85 (105) 03/18/17 15:00 115 9 158/99 (118) 99 111/95 (100) 03/18/17 14:30 111 7 151/95 (113) 98 132/93 (106) 03/18/17 14:00 101 10 124/81 (95) 99 132/76 (94) 03/18/17 14:00 101 03/18/17 13:30 105 8 135/85 (102) 99 135/78 (97) 03/18/17 13:00 104 7 128/75 (92) 99 102/95 (97) 03/18/17 12:30 107 8 122/76 (91) 98 128/74 (92) 03/18/17 12:00 40 03/18/17 12:00 98.9 102 9 142/77 (98) 99 143/79 (100) 03/18/17 12:00 102 03/18/17 11:30 103 7 136/79 (98) 99 03/18/17 11:00 104 1 119/67 (84) 98 124/70 (88) 03/18/17 10:30 102 1 115/67 (83) 98 118/67 (84) 03/18/17 10:30 98 40 03/18/17 10:12 45 03/18/17 10:03 101 4 114/74 (87) 99 125/70 (88) 03/18/17 10:00 101 9 129/74 (92) 99 03/18/17 10:00 50 03/18/17 10:00 101 03/18/17 09:30 99 12 122/73 (89) 100 127/79 (95) I/O 03/18/17 03/18/17 03/18/17 03/19/17 03/19/17 03/19/17 07:00 15:00 23:00 07:00 15:00 23:00 Intake Total 2603 ml 100 ml 320 ml 586 ml 11 ml Output Total 725 ml 1000 ml 1200 ml Balance 1878 ml 100 ml -680 ml -614 ml 11 ml Intake IV Total 2371 ml 100 ml 200 ml 11 ml Tube Feeding 112 ml 586 ml Tube Irrigant 120 ml 120 ml Output Urine Total 725 ml 1000 ml 1200 ml # Bowel Movements 0 1 (Sumit Flor MD, R3) Result Diagram: 03/19/1742903/19/17429 Objective Remarks GENERAL: Well-nourished, well-developed obese female. Sedated and intubated. SKIN: Warm and dry. HEAD: Normocephalic. EYES: No scleral icterus. No injection or drainage. NECK: Supple, trachea midline. No JVD or lymphadenopathy. CARDIOVASCULAR: Irregularly irregular rate and rhythm without murmurs, gallops, or rubs. RESPIRATORY: Breath sounds equal bilaterally. No accessory muscle use. GASTROINTESTINAL: Abdomen soft, non-tender, distended. Bowel sounds present. MUSCULOSKELETAL: No cyanosis, 2+ pitting edema in lower extremities bilaterally (Sumit Flor MD, R3) Date of Insertion: Mar 15, 2017 (Sumit Flor MD, R3) A/P Assessment and Plan Patient is a 71 year old female with a PMH significant for colon cancer s/p chemotherapy, atrial fibrillation on Eliquis, HTN, DM type 2, and MDD who presented to the ED with abdominal pain, nausea and vomiting and was found to have severe sepsis secondary to PNA and pyelonephritis in addition to atrial fibrillation with RVR. She rapidly decompensated into respiratory failure and was intubated on 03/15, now in critical condition with sepsis. Discharge Planning Unclear timetable, patient in critical condition. sdw Dr. Greenberg (Sumit Flor MD, R3) Attending Attestation Patient seen and examined. Case reviewed and discussed with the resident team. Agree with plan of care as discussed with me and documented in the resident note. she is stable and improving overall (Lydia Greenberg MD) Problem List: (1) Sepsis due to Gram-negative organism with septic shock ICD Codes: A41.50 - Gram-negative sepsis, unspecified; R65.21 - Severe sepsis with septic shock Status: Acute Plan: Neurologic: AMS-toxic encephalopathy secondary to sepsis History of TIA x 2 Major Depressive Disorder Neurochecks per ICU protocol Patient intubated for airway protection continues on propofol and fentanyl infusions for ventilator synchrony Ammonia elevated at 67 on admission, 44 yesterday, continue lactulose 03/15 CT brain-no intracranial abnormality Neurology consulted- Dr. Huff to consider MRI brain within the next few days Daily sedation vacation Respiratory: Acute Hypoxemic respiratory failure Pulmonary hypertension Carinal adenopathy 03/15 Patient intubated emergently FiO2 50, PEEP 10 today Maintain O2 sat greater than 92% Ventilator bundle Duonebs Q6H scheduled and Q2H when necessary 03/15 CT angiogram -pulmonary hypertension, no PE, enlarged precarinal and subcarinal lymphadenopathy 03/16 CXR shows persisting consolidation left mid and lower lung and improving infiltrates in the lower right lung 03/18 CXR: Stable basilar airspace disease Pulmonary HTN not present on last echo in 2014, 03/16 Echo shows EF 55-60%, severe mitral annular calcification with moderate mitral valve stenosis, mildly dilated right atrium, mild to mod aortic valve stenosis, pulmonary arterial pressure 55.2 Cardiovascular: A. fib RVR Hypertension Patient initially on Cardizem infusion-heart rate now in 90's, discontinued for MAP < 60 Amiodarone 400mg PO BID Last echo 02/05- ejection fraction 55-60%. No RWMA. APA 35 mmHg, TV mild regurg, MV mild regurg 03/16 Echo results as above EPS- Dr. Lubin consulted Renal: Bilateral hydronephrosis Pyelonephrosis Continue Gallo catheter, output 470ml in past 24 hours 03/14-CT of the abdomen and pelvis-bilateral hydronephrosis, pyelonephrosis, perinephric stranding -- Strict I/Os Urology consulted- 03/16 renal US shows resolution of hydronephrosis, urinary bladder decompressed Creatinine trending up to 1.53 today FEN/GI: History of colon cancer status post chemotherapy and colectomy Abdominal hernia Initiate tube feeds today NGT to LIWS Heme/ID: Septic Shock due to gram negative carmela Community-acquired multilobar pneumonia Pyelonephritis Lactic acidemia Bandemia 03/15 Blood cultures growing Klebsiella pneumoniae 03/15 urine culture growing Klebsiella pneumonia 03/16 sputum culture: No growth to date 2 days legionella and streptococcus antigens negative ID consulted - Dr. Hansen, treat with Levaquin UA and cultures ordered and results pending Heme- Onc consulted regarding carinal adenopathy lymphadenopathy, patient is S/ P completion of chemotherapy 09/2016. Repeat CT chest in 1-2 months to evaluate mediastinal lymph nodes as outpatient Trend lactate level 6.4->4.2->4.9->3.0->1.5->2.2 Endocrine: Diabetes mellitus Hypothyroidism High-dose SSI Continue Levothyroxine 50 mcgs/day Prophylaxis: GI Prophylaxis with famotidine BID DVT Prophylaxis with SCDs and Heparin 5000u Q8H Lines: Port right chest, peripheral IVs 2, left radial A-line (2) Pyelonephritis ICD Codes: N12 - Tubulo-interstitial nephritis, not specified as acute or chronic (3) PNA (pneumonia) ICD Codes: J18.9 - Pneumonia, unspecified organism (4) Atrial fibrillation with rapid ventricular response ICD Codes: I48.91 - Atrial fibrillation with rapid ventricular response Status: Acute (5) Diabetes mellitus, type II ICD Codes: E11.9 - Type 2 diabetes mellitus Status: Chronic (6) Hypertension ICD Codes: I10 - Essential (primary) hypertension Status: Chronic (7) Hypothyroidism ICD Codes: E03.9 - Hypothyroidism Status: Acute (8) Nutrition, metabolism, and development symptoms ICD Codes: R63.8 - Symptoms concerning nutrition, metabolism, and development Status: Acute (Sumit Flor MD, R3) Problem Qualifiers (1) PNA (pneumonia): Qualified Codes: J18.9 - Pneumonia, unspecified organism (2) Diabetes mellitus, type II: Qualified Codes: E11.9 - Type 2 diabetes mellitus without complications; Z79.4 - campus interviews intern (current) use of insulin (3) Hypertension: Qualified Codes: I10 - Essential (primary) hypertension (4) Hypothyroidism: Qualified Codes: E03.9 - Hypothyroidism, unspecified Sumit Flor MD, R3 Mar 19, 2017 09:29 Lydia Greenberg MD Mar 19, 2017 09:51
[2017-03-19 09:49] LABS: BACTERIA, URINE OCC /hpf; BLOOD, URINE SMALL (NEG); GLUCOSE,URINE 300 mg/dL (NEG); KETONE, URINE NEG (NEG); MUCUS URINE FEW /lpf (OCC); NITRITE,URINE NEG (NEG); SQUAMOUS EPITHELIAL CELL URINE 1 /hpf (0-5); TRANSITIONAL EPI CELLS, URINE <1 /hpf; URINE COLOR YELLOW (YELLW/STRAW)
[2017-03-19 09:53] LABS: COMMENT (UR) CATH-CULTURE IND; CULTURE IF INDICATED CATH CULTURE IND
[2017-03-19] MEDS ORDERED: LABETALOL HCL 100 MG/20 ML VIAL IV ONE (10:15)
[2017-03-19] MEDS: LABETALOL HCL 100 MG/20 ML VIAL IV PRN (13:36)
--- NOTE | 2017-03-19 13:38 | PD.WCN.NOT ---
Wound Consult Description: Received consult for non blanchable red areas to sacrum and R buttock from Doctor Oksana Ware. Communicated with: RN Makayla and Doctor Zarina Recommendation: 1.Please cleanse bilateral buttock, and sacral areas with soap and water gently and pat dry. Apply thick layer of Calazime barrier cream BID and PRN and leave open to air.Please do not scrub barrier cream off skin when cleaning patient. OK to not remove all barrier cream, may layer barrier cream on patient 2.Please keep patient turned and repositioned every 2 hours. Additional Information: Patient seen on 5th floor C for evaluation of wound management of non blanchable red areas to sacrum and R buttock. Positioned patient to L side with the maximum assistance of GEORGI Benavides, Student nurse and typewriter mechanic, to reveal non blanchable purple/red discolorations to intact skin on R buttock and Medial gluteal cleft just below sacrum. Purple discoloration to intact skin that is non blanchable indicates a deep tissue injury.Deep tissue injury to R upper medial buttock measures 3cm x2.1cm. Deep tissue injury to sacral area measures ~ 3cm x ~0.5cm. Patient is laying Ashley standard low air loss bed with two staggered cloth underpads under patient for incontinence management and positioning. Explained to RN that Cloth undepads on these beds, do not allow the Ashley bed to work properly. Cloth pads were removed and replaced with Ultrasorb pad and flat turning sheet.Thick layer of Calazime barrier cream was then applied to patient's buttock and sacral area and left open to air. Patient was then positioned off bottom with pillow for support.Patient bed was not on correct setting for patient's weight. Reset bed to correct weight setting,and microclimate corporate human resources manager is on. Sanjana Goodwin [facility] Mar 19, 2017 13:38
--- NOTE | 2017-03-19 14:18 | HHI.CCPN ---
Subjective Remarks/Hospital Course This is a 71 year old female with a PMH significant for colon cancer s/p chemotherapy, atrial fibrillation previously on Eliquis discontinued for GI bleeding, HTN, DM type 2, and MDD who presented to the ED with abdominal pain, nausea and vomiting.The patient stated that she had pain in her left side this morning that radiated to her lower abdomen and caused her to have nausea and vomiting. She states that she has been short of breath for the past 3 weeks and progressively more fatigued. Her states that she has been becoming progressively weaker and sleeping excessively at times. At 3AM this morning, he noticed that she was trying to talk but "wasn't making any sense." He states that she has been so short of breath that she has been having difficulty finishing sentences without becoming short of breath. She notes dysuria, urinary urgency and frequency for the past 3-4 days. Imaging studies and laboratory studies were performed. Notably CTA of the chest reveal pulmonary hypertension and carinal lymphadenopathy. CT abdomen and pelvis revealed bilateral hydronephrosis and pyelonephrosis with perinephric stranding. Cultures were sent, the patient was noted to have bacteremia notably gram- negative rods. The patient was in A. fib RVR in the ED the patient received Cardizem bolus and was placed on a Cardizem infusion and transferred to ICU. Upon admission to ICU the patient became progressively short of breath with escalating alternation in mental status critical care medicine was consulted. The patient's heart rate at that time was in the 130s systolic pressure 140s and O2 sat high 80s. Brief discussion with purpose of emergent intubation. Subjective: 03/16: Overnight the patient continued to have hemodynamic instability, now septic shock. Patient continues in A. fib with HR low 100's. Patient on maximum doses currently of norepinephrine and vasopressin infusions. Taylor- cortisone added to medication regimen, Sodium bicarbonate infusion initiated. Imaging revealed hydronephrosis and pyelonephrosis patient seen by Dr. Larose, urine output now decreased to 150cc total over the last 12hrs, with continued elevation in creatinine. Planned renogram this a.m., to rule out obstruction with possible placement of nephrostomy tubes, and nephrology also consulted. Patient was seen by Dr. Candelario, carinal /hilar lymphadenopathy most likely not associated with carcinoma, plan for outpatient scan in 2-3 months. FiO2 was decreased to 60% overnight, ECHO pending her evaluation of cardiac status and pulmonary hypertension. 03/17: Overnight vasopressors weaned significantly, currently on lower doses. The patient continues on sodium bicarbonate infusion. Renogram canceled secondary to hemodynamic instability yesterday renal ultrasound performed revealed no hydronephrosis, creatinine continues to be elevated most likely secondary to acute kidney injury secondary to hypotension and septic shock. Nephrology consult pending. Echo revealed severe mitral valve stenosis and calcification with pulmonary hypertension and PASP 55.2 03/18: Remains sedated, orally intubated on mech vent. Off levophed. 03/19: Remains sedated, orally intubated on mechanical ventilation. Off Levophed. Blood pressure actually running high. Failed C Pap trials Objective Vital Signs Date Time Temp Pulse Resp B/P (MAP) Pulse Ox O2 Delivery O2 Flow Rate FiO2 03/19/17 14:00 100 03/19/17 12:30 99 35 03/19/17 12:00 98.5 13 129/87 (101) 137/76 (96) 03/15/17 10:34 Nasal Cannula 4.00 Intake and Output 03/19/17 03/19/17 03/20/17 08:00 16:00 00:00 Intake Total 586 ml 111 ml Output Total 1200 ml Balance -614 ml 111 ml Result Diagram: 03/19/17 0430 03/19/17 0430 Imaging Last Impressions Chest X-Ray 03/17/17 0000 Signed Impressions: Service Date/Time: Friday, March 17, 2017 06:22 - CONCLUSION: Persistent infiltrates consolidation left lower lung and patchy infiltrates in the central right lung. Antonio Voss MD Renal Ultrasound 03/16/17 0000 Signed Impressions: Service Date/Time: Thursday, March 16, 2017 11:27 - CONCLUSION: The hydronephrosis has resolved. Urinary bladder is decompressed.. Jose Flores MD CT Angiography 03/15/17 0520 Signed Impressions: Service Date/Time: Wednesday, March 15, 2017 07:46 - CONCLUSION: 1. No evidence for pulmonary embolism. 2. Cardiomegaly with enlargement of pulmonary arteries likely from pulmonary arterial hypertension. 3. Bibasilar patchy densities could be atelectasis or infiltrate. 4. Mosaic attenuation which can be seen with small airway disease. 5. Enlarged precarinal and subcarinal adenopathy. Jai Queen MD Head CT 03/15/17 0000 Signed Impressions: Service Date/Time: Wednesday, March 15, 2017 07:47 - CONCLUSION: No acute intracranial disease. Jai Queen MD Abdomen/Pelvis CT 03/15/17 0000 Signed Impressions: Service Date/Time: Wednesday, March 15, 2017 07:51 - CONCLUSION: 1. Bilateral hydronephrosis with extensive stranding in the perinephric regions greater on the left. 2. Mild circumferential wall thickening within the bladder with mild distention. 3. Postsurgical changes rectosigmoid junction. 4. Small fat containing abdominal wall hernias. Jai Queen MD Last Impressions Chest X-Ray 03/16/17 0600 Signed Impressions: Service Date/Time: Thursday, March 16, 2017 04:58 - CONCLUSION: Persisting consolidation left mid and lower lung and improving infiltrates in the lower right lung. Antonio Voss MD CT Angiography 03/15/17519 Signed Impressions: Service Date/Time: Wednesday, March 15, 2017 07:46 - CONCLUSION: 1. No evidence for pulmonary embolism. 2. Cardiomegaly with enlargement of pulmonary arteries likely from pulmonary arterial hypertension. 3. Bibasilar patchy densities could be atelectasis or infiltrate. 4. Mosaic attenuation which can be seen with small airway disease. 5. Enlarged precarinal and subcarinal adenopathy. Jai Queen MD Head CT 03/15/17 0000 Signed Impressions: Service Date/Time: Wednesday, March 15, 2017 07:47 - CONCLUSION: No acute intracranial disease. Jai Queen MD Abdomen/Pelvis CT 03/15/17 0000 Signed Impressions: Service Date/Time: Wednesday, March 15, 2017 07:51 - CONCLUSION: 1. Bilateral hydronephrosis with extensive stranding in the perinephric regions greater on the left. 2. Mild circumferential wall thickening within the bladder with mild distention. 3. Postsurgical changes rectosigmoid junction. 4. Small fat containing abdominal wall hernias. Jai Queen MD Last Impressions Chest X-Ray 03/15/17 0520 Signed Impressions: Service Date/Time: Wednesday, March 15, 2017 05:41 - CONCLUSION: Opacity in the perihilar region bilaterally suggesting either central infiltrates or adenopathy. Antonio Voss MD CT Angiography 03/15/17 0520 Signed Impressions: Service Date/Time: Wednesday, March 15, 2017 07:46 - CONCLUSION: 1. No evidence for pulmonary embolism. 2. Cardiomegaly with enlargement of pulmonary arteries likely from pulmonary arterial hypertension. 3. Bibasilar patchy densities could be atelectasis or infiltrate. 4. Mosaic attenuation which can be seen with small airway disease. 5. Enlarged precarinal and subcarinal adenopathy. Jia Queen MD Head CT 03/15/17 0000 Signed Impressions: Service Date/Time: Wednesday, March 15, 2017 07:47 - CONCLUSION: No acute intracranial disease. Jai Queen MD Abdomen/Pelvis CT 03/15/17 0000 Signed Impressions: Service Date/Time: Wednesday, March 15, 2017 07:51 - CONCLUSION: 1. Bilateral hydronephrosis with extensive stranding in the perinephric regions greater on the left. 2. Mild circumferential wall thickening within the bladder with mild distention. 3. Postsurgical changes rectosigmoid junction. 4. Small fat containing abdominal wall hernias. Jai Queen MD Objective Remarks GENERAL: Obese critically ill-appearing female , sedated and intubated. SKIN: Warm and dry. HEAD: Atraumatic. Normocephalic. EYES: Pupils equal and round. No scleral icterus. No injection or drainage. ENT: No nasal bleeding or discharge. Mucous membranes pink and moist. NECK: Trachea midline. No JVD. CARDIOVASCULAR: Irregularly irregular rhythm. RESPIRATORY: Mechanical ventilation. Clear to auscultation. Breath sounds equal bilaterally. GASTROINTESTINAL: Abdomen soft, protuberant non-tender, nondistended. No guarding. MUSCULOSKELETAL: Extremities without clubbing, cyanosis, or edema. No obvious deformities. NEUROLOGICAL: Sedated, orally intubated on mechanical ventilation, moves all 4 extremities on lightening sedation. Procedures 03/16- Renogram cancelled . Renal US performed. 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 Start daily CPAP trials. Bronchodilators every 6 hours scheduled and every [address] angiogram -pulmonary hypertension, no PE, enlarged precarinal and subcarinal lymphadenopathy Chest x-rays ABGs when clinically indicated-ABG improved 7.34/44/208/24/-1.4 03/17- CXR -consolidations B/L lobes worsened Cardiovascular: A. fib RVR Hypertension Patient arrived on Cardizem infusion-heart rate 130's, discontinued for MAP less than 60 Patient's home med amiodarone 200 mg daily increased to 400 mg twice a day. Labetalol when necessary for hypertension. Off pressors currently. Last echo 01/2015- ejection fraction 55-60%. No RWMA. PAP 35 mmHg, TV mild regurg ,MV mild regurg ECHO 03/16-EF 55- 60%. No RWMA, severe mitral valve annular calcification. Moderate mitral stenosis. Trace to mild MR, moderate TR, PAS P 55.2, trivial pulmonary valve regurgitation EPS- Dr. Lubin consulted Renal: Bilateral hydronephrosis-resolved Pyelonephrosis Acute kidney injury most likely secondary to septic shock Elevated creatinine Insert and maintain Gallo catheter 03/14-CT of the abdomen and pelvis-bilateral hydronephrosis, pyelonephrosis, perinephric stranding 03/16 renal ultrasound-no hydronephrosis Creatinine 1.6-> 1.8 UOP last 24 hours improvement-1175cc Sodium bicarbonate infusion initiated 03/16 @ 75cc/hr, decreased to 50 cc/hour -- Strict I/Os FEN/GI: History of colon cancer status post chemotherapy Abdominal hernia NGT -Advance tube feeds with Glucerna 1.5 @ 30cc/hr with goal of 60cc/hr. Bowel regimen Heme/ID: Septic shock Community-acquired multilobar pneumonia Lactic acidemia Bandemia-resolved Blood cultures Gram-negative rods Urine culture Gram-negative rods Follow-up sputum culture Streptococcal and legionella antigens negative ID consulted - Dr. Dimayuga Empiric antibiotics include vancomycin, Zosyn and patient received 1 dose of Rocephin in the ED Heme- Onc consulted regarding carinal adenopathy lymphadenopathy, patient is S/ P completion of chemotherapy 06/2016 Endocrine: Diabetes mellitus Hypothyroidism High-dose insulin medication regimen Continue Levothyroxine 50 mcgs/day Obtain thyroid panel Glucose monitoring per ICU protocol -- SSI Prophylaxis: GI Prophylaxis DC Protonix, Give famotidine BID DVT Prophylaxis -- SCDs Heparin 5000u BID Lines: Port right chest, peripheral IVs 2, left radial A-line Dispo: This patient remains critically ill with one or more organ systems which are or may become a threat to life. I have spent in excess of 30 minutes discontinuously in the care and management of this patient. This time is exclusive of procedures, and includes, but is not limited to, evaluation of the patient, review of the medical record, discussions with family, consultants, nursing staff, or respiratory therapy, and documentation in the medical record. Fernando Srinivasan MD Mar 19, 2017 14:18
--- NOTE | 2017-03-19 17:12 | PD.ONC.PN ---
Subjective Subjective Remarks Late entry. Saw patient in the morning and spoke to her at the bedside. Remains on vent. Objective Data Date Time Temp Pulse Resp B/P (MAP) Pulse Ox O2 Delivery O2 Flow Rate FiO2 03/19/17 15:17 98 35 03/19/17 14:00 100 03/19/17 12:30 99 35 03/19/17 12:00 98.5 92 13 129/87 (101) 99 137/76 (96) 03/19/17 12:00 92 03/19/17 12:00 35 03/19/17 11:31 81 13 125/68 (87) 98 121/69 (86) 03/19/17 11:00 82 11 121/71 (88) 98 129/73 (91) 03/19/17 10:30 109 13 139/98 (112) 97 164/87 (112) 03/19/17 10:00 106 12 139/91 (107) 98 150/83 (105) 03/19/17 10:00 106 03/19/17 08:30 107 12 135/80 (98) 98 03/19/17 08:00 98.9 102 12 126/77 (93) 98 03/19/17 08:00 35 03/19/17 08:00 102 03/19/17 07:46 99 35 03/19/17 07:00 111 11 133/81 (98) 98 136/75 (95) 03/19/17 06:44 12 03/19/17 06:00 123 132/88 (103) 103/93 (96) 03/19/17 06:00 113 03/19/17 04:10 99 35 03/19/17 04:00 119 03/19/17 04:00 40 03/19/17 04:00 99.0 119 12 139/91 (107) 96 164/89 (114) 03/19/17 02:00 115 03/19/17 01:05 98 35 03/19/17 00:35 12 03/19/17 00:00 40 03/19/17 00:00 100.3 111 12 144/74 (97) 97 193/193 (193) 03/19/17 00:00 111 03/18/17 22:00 120 03/18/17 20:00 40 03/18/17 20:00 99.0 119 12 190/190 (190) 96 03/18/17 20:00 121 03/18/17 18:15 123 132/88 (103) 103/93 (96) 03/18/17 18:00 124 03/19/17 03/19/17 03/19/17 07:00 15:00 23:00 Intake Total 586 ml 111 ml Output Total 1200 ml Balance -614 ml 111 ml Result Diagram: 03/19/17 0430 03/19/17 0430 Laboratory Results Laboratory Tests Test 03/19/17 04:30 03/19/17 09:30 White Blood Count 12.3 TH/MM3 Red Blood Count 3.86 MIL/MM3 Hemoglobin 11.1 GM/DL Hematocrit 34.2 % Mean Corpuscular Volume 88.5 FL Mean Corpuscular Hemoglobin 28.9 PG Mean Corpuscular Hemoglobin Concent 32.6 % Red Cell Distribution Width 15.9 % Platelet Count 110 TH/MM3 Mean Platelet Volume 9.9 FL Neutrophils (%) (Auto) 82.9 % Lymphocytes (%) (Auto) 6.7 % Monocytes (%) (Auto) 10.3 % Eosinophils (%) (Auto) 0.0 % Basophils (%) (Auto) 0.1 % Neutrophils # (Auto) 10.2 TH/MM3 Lymphocytes # (Auto) 0.8 TH/MM3 Monocytes # (Auto) 1.3 TH/MM3 Eosinophils # (Auto) 0.0 TH/MM3 Basophils # (Auto) 0.0 TH/MM3 CBC Comment AUTO DIFF Differential Comment AUTO DIFF CONFIRMED Platelet Estimate LOW Platelet Morphology Comment NORMAL Blood Urea Nitrogen 49 MG/DL Creatinine 1.69 MG/DL Random Glucose 250 MG/DL Total Protein 6.2 GM/DL Albumin 2.2 GM/DL Calcium Level 7.3 MG/DL Alkaline Phosphatase 83 U/L Aspartate Amino Transf (AST/SGOT) 34 U/L Alanine Aminotransferase (ALT/SGPT) 18 U/L Total Bilirubin 0.7 MG/DL Sodium Level 144 MEQ/L Potassium Level 3.4 MEQ/L Chloride Level 104 MEQ/L Carbon Dioxide Level 31.3 MEQ/L Anion Gap 9 MEQ/L Estimat Glomerular Filtration Rate 30 ML/MIN Protein Corrected Calcium 7.8 MG/DL Ammonia 51 MCMOL/L Urine Color YELLOW Urine Turbidity HAZY Urine pH 5.0 Urine Specific [place] 1.008 Urine Protein NEG mg/dL Urine Glucose (UA) 300 mg/dL Urine Ketones NEG mg/dL Urine Occult Blood SMALL Urine Nitrite NEG Urine Bilirubin NEG Urine Urobilinogen LESS THAN 2.0 MG/DL Urine Leukocyte Esterase LARGE Urine RBC 28 /hpf Urine WBC 61 /hpf Urine WBC Clumps FEW Urine Squamous Epithelial Cells 1 /hpf Urine Transitional Epithelial Cells <1 /hpf Urine Bacteria OCC /hpf Urine Mucus FEW /lpf Microscopic Urinalysis Comment CATH-CULTURE IND Culture Results Microbiology Date/Time Source Procedure Growth Status 03/19/17 09:30 Urine Catheterized Urine Urine Culture Pending Received Administered Medications Medications (Trade) Dose Ordered Sig/Chiqui Route PRN Reason Start Time Stop Time Status Last Admin Dose Admin Diltiazem HCl 125 mg/Sodium Chloride 125 ml @ 5 mls/hr TITRATE PRN IV Tachycardia 03/15/17 05:45 Future Hold 03/15/17 06:35 Acetaminophen (Tylenol) 650 mg Q4H PRN PO TEMPERATURE > 101 F 03/15/17 10:15 03/19/17 05:44 Ibuprofen (Motrin) 600 mg Q6H PRN PO PAIN 1-10 AND/OR FEVER >101F 03/15/17 10:15 03/18/17 23:35 Cholestyramine Resin (Questran 4 Gm Pkt) 4 gm DAILY PO 03/16/17 09:00 03/19/17 08:08 Levothyroxine Sodium (Synthroid) 50 mcg DAILY@0600 PO 03/16/17 06:00 03/19/17 05:44 Pravastatin Sodium (Pravachol) 40 mg DAILY PO 03/16/17 09:00 03/19/17 08:07 Bumetanide (Bumex Inj) 1 mg BID@,18 IV PUSH 03/15/17 18:00 03/19/17 08:08 Sodium Chloride (NS Flush) 2 ml BID IV FLUSH 03/15/17 21:00 03/19/17 08:08 Artificial Tears (Tears Naturale Opth Soln) 1 drop TID EACH EYE 03/15/17 18:00 03/19/17 12:06 Miscellaneous Information 1 Q361D XX 03/15/17 14:30 03/15/17 14:30 Chlorhexidine Gluconate (Chlorhexidine 2% Cloth) 3 pack Taper DAILY@04 [facility] 03/16/17 04:00 03/12/18 03:59 03/19/17 04:00 Senna/Docusate Sodium (Elsa-Colace) 1 tab BID PO 03/15/17 21:00 03/19/17 08:07 Insulin Aspart (NovoLOG SUPPLEMENTAL SCALE) 1 ACHS SLIDING SCALE SQ 03/15/17 17:00 03/19/17 16:19 Heparin Sodium (Porcine) (Heparin Inj) 5,000 units Q8HR SQ 03/15/17 22:00 03/19/17 16:19 Lactulose (Lactulose Liq) 30 ml DAILY NG 03/15/17 16:30 03/19/17 08:06 Fentanyl Citrate 250 ml @ 5 mls/hr TITRATE PRN IV Sedation 03/15/17 16:45 03/19/17 08:06 Levofloxacin/ Dextrose 150 ml @ 100 mls/hr Q48H IV 03/15/17 18:00 03/17/17 17:25 Midazolam HCl 100 ml @ 2 mls/hr TITRATE PRN IV SEDATION 03/15/17 18:00 03/17/17 20:21 Vasopressin 40 units/Dextrose 100 ml @ 6 mls/hr [id number] IV 03/15/17 19:17 03/17/17 05:48 Norepinephrine Bitartrate 250 ml @ 7.5 mls/hr TITRATE PRN IV Blood pressure management 03/15/17 22:45 03/16/17 23:51 Potassium Chloride 100 ml @ 50 mls/hr Q2H PRN IV For Potassium 2.8 - 3.2 mEq/L 03/16/17 09:45 03/19/17 06:09 Potassium Chloride 100 ml @ 50 mls/hr Q2H PRN IV For Potassium 3.3 - 3.5 mEq/L 03/16/17 09:45 03/18/17 15:46 Magnesium Sulfate 2 gm/Sodium Chloride 100 ml @ 50 mls/hr UNSCH PRN IV For Magnesium 1.2 - 1.6 mg/dL 03/16/17 09:45 03/16/17 11:07 Hydrocortisone Sodium Succinate (SoluCORTEF INJ) 100 mg Q8H IV PUSH 03/16/17 10:00 03/19/17 10:39 Amiodarone HCl (Cordarone) 400 mg BID PO 9/23/17 21:00 03/19/17 08:07 Famotidine (Pepcid Inj) 10 mg Q12HR IV PUSH 03/17/17 09:00 03/19/17 08:08 Labetalol HCl (Trandate Inj) 20 mg Q2H PRN IV FOR SBP > 160 MMHG 03/19/17 12:00 03/19/17 13:36 Objective Remarks GENERAL: Sedated on vent. SKIN: Warm and dry. HEAD: Normocephalic. EYES: No scleral icterus. No injection or drainage. NECK: Supple, trachea midline. No JVD or lymphadenopathy. LYMPHATIC: No adenopathy. CARDIOVASCULAR: Regular rate and rhythm without murmurs. RESPIRATORY: Breath sounds equal bilaterally anteriorly. On vent. GASTROINTESTINAL: Abdomen soft, non-tender, nondistended. EXTREMITIES: No cyanosis, or edema. MUSCULOSKELETAL: Adequate muscle tone. NEUROLOGICAL: Sedated Assessment/Plan Assessment 1. Sigmoid colon adenocarcinoma. She had a large mass in the sigmoid colon and biopsy showed moderately differentiated adenocarcinoma. She underwent resection in February of 2016 and final pathology showed poorly differentiated adenocarcinoma with mucinous features measuring 5.5 cm arising in the villous adenoma. There was large tumor deposit 6 cm in size within the pericolonic soft tissue. There was metastatic adenocarcinoma involving 11 out of 12 lymph nodes. Pathologic stage T2 N2b M0. She received adjuvant Xeloda in September of 2016. Recent evaluation did not show any evidence of recurrent disease. I do not think the current sepsis is related to her malignancy. 2. Nonspecific mediastinal lymph node. CT of the chest showed prominent lymph nodes in the subcarinal and precarinal areas. There is no other metastatic disease noted on the CT of the chest, abdomen and pelvis. The patient has pneumonia and this mediastinal adenopathy is likely reactive. Discussed findings with her . 3. Septic shock. CT of the abdomen showed bilateral hydronephrosis and sign of pyelonephritis. CT of the chest also showed possible pneumonia. She is currently on antibiotic per infectious disease. Slowly improving. 4. Respiratory failure due to sepsis and pneumonia. The patient is still on vent. Plan PLAN: 1. Continue treatment of sepsis per assessment expert and infectious disease. 2. No oncologic intervention planned at this time. 3. Repeat CT of the chest in a month or two to evaluate mediastinal lymph nodes. 4. Discussed with her . Sly Candelario MD Mar 19, 2017 17:12
[2017-03-19] MEDS: LEVOFLOXACIN 750 MG PREMIX INJ 150 ML IV SCH (17:44)
--- NOTE | 2017-03-19 22:12 | HHI.NPPN ---
Subjective History of Present Illness 71-year-old female with past medical history of colon cancer, diabetes mellitus, hypertension, hypothyroidism, history of TIA, history of chemotherapy for colon cancer, was admitted to the hospital with complaint of abdominal pain, nausea and vomiting. I was called to see the patient because of elevated creatinine. The patient did not have any previous history of renal disease. Her creatinine looking back it was 0.6 last month and she came with a creatinine 1.3 and has gone up to 1.8. Additional Remarks Patient remain and sedated, clinically same. Review of Systems General General Remarks Intubated and sedated. Objective Data Data 03/19/17 03/20/17 19:00 07:00 Intake Total 845 ml Output Total 2000 ml Balance -1155 ml Intake IV Total 376 ml Tube Feeding 349 ml Tube Irrigant 120 ml Output Urine Total 2000 ml # Bowel Movements 1 Vital Signs Date Time Temp Pulse Resp B/P (MAP) Pulse Ox O2 Delivery O2 Flow Rate FiO2 03/19/17 18:30 98 12 140/80 (100) 97 146/79 (101) 03/19/17 18:00 95 149/75 (99) 146/79 (101) 03/19/17 18:00 95 03/19/17 18:00 95 12 149/75 (99) 95 146/79 (101) 03/19/17 17:30 89 13 138/80 (99) 92 142/77 (98) 03/19/17 17:00 92 14 155/96 (115) 98 167/87 (113) 03/19/17 16:33 96 13 163/87 (112) 98 161/86 (111) 03/19/17 16:30 102 19 183/119 (140) 98 03/19/17 16:00 98.5 90 14 123/81 (95) 96 136/73 (94) 03/19/17 16:00 90 03/19/17 16:00 35 03/19/17 15:30 92 13 134/71 (92) 97 03/19/17 15:17 98 35 03/19/17 15:09 95 13 129/88 (102) 98 141/78 (99) 03/19/17 15:03 95 16 169/104 (125) 99 03/19/17 15:00 98 12 160/105 (123) 98 03/19/17 14:30 90 16 148/98 (115) 98 03/19/17 14:03 95 18 150/95 (113) 97 150/94 (112) 03/19/17 14:00 100 03/19/17 14:00 100 16 152/106 (121) 98 162/97 (118) 03/19/17 13:42 96 20 153/90 (111) 98 165/161 (162) 03/19/17 13:33 114 19 192/122 (145) 100 200/118 (145) 03/19/17 13:30 95 12 164/104 (124) 98 156/150 (152) 03/19/17 13:00 97 13 142/89 (106) 98 161/93 (115) 03/19/17 12:30 99 35 03/19/17 12:00 98.5 92 13 129/87 (101) 99 137/76 (96) 03/19/17 12:00 92 03/19/17 12:00 35 03/19/17 11:31 81 13 125/68 (87) 98 121/69 (86) 03/19/17 11:00 82 11 121/71 (88) 98 129/73 (91) 03/19/17 10:30 109 13 139/98 (112) 97 164/87 (112) 03/19/17 10:00 106 12 139/91 (107) 98 150/83 (105) 03/19/17 10:00 106 03/19/17 08:30 107 12 135/80 (98) 98 03/19/17 08:00 98.9 102 12 126/77 (93) 98 03/19/17 08:00 35 03/19/17 08:00 102 03/19/17 07:46 99 35 03/19/17 07:00 111 11 133/81 (98) 98 136/75 (95) 03/19/17 06:44 12 03/19/17 06:00 123 132/88 (103) 103/93 (96) 03/19/17 06:00 113 03/19/17 04:10 99 35 03/19/17 04:00 119 03/19/17 04:00 40 03/19/17 04:00 99.0 119 12 139/91 (107) 96 164/89 (114) 03/19/17 02:00 115 03/19/17 01:05 98 35 03/19/17 00:35 12 03/19/17 00:00 40 03/19/17 00:00 100.3 111 12 144/74 (97) 97 193/193 (193) 03/19/17 00:00 111 -: 03/19/17 0430 03/19/17 0430 Microbiology 03/19/17 Urine Culture, Received Pending Physical Exam General Appearance Remarks Intubated and sedated. Eyes Eye Exam: Pupils Equal Throat Throat Exam: Oral Mucosa [place] & Moist Neck Neck Exam: Neck Supple, Trachea Midline Pulmonary Resp Exam: Rhonchi, Decreased Bases, Diminished Breath Sounds, Poor Inspiratory Effort Cardiology CV Exam: Regular, Tachycardia Gastrointestinal/Abdomen GI Exam: Soft, Non-Tender, Bowel Sounds Present, Non-Distended Extremeties Extremities Exam: Trace Edema Neurologic Neuro Exam: Sedated Assessment/Plan Assessment Summary: ASH/Acute Renal Failure, Hypotension Problem List: (1) Respiratory failure ICD Codes: J96.90 - Respiratory failure, unspecified, unspecified whether with hypoxia or hypercapnia (2) Acute kidney failure ICD Codes: N17.9 - Acute kidney failure, unspecified (3) Hypothyroidism ICD Codes: E03.9 - Hypothyroidism Status: Acute (4) Hypertension ICD Codes: I10 - Essential (primary) hypertension Status: Chronic (5) PNA (pneumonia) ICD Codes: J18.9 - Pneumonia, unspecified organism (6) Hyperlipidemia ICD Codes: E78.5 - Hyperlipidemia Status: Acute (7) Cancer, colon ICD Codes: C18.9 - Malignant neoplasm of colon, unspecified Status: Acute Plan Most likely has ASH due to ATN. Patient has been non oliguric. Creatinine is almost same. K is 3.4 and replaced. Continue Bumex, has been non oliguric. Follow the urine out put and BMP. Avoid Nephrotoxins. Continue antibiotics. Follow the urine out put and BMP. Problem Qualifiers (1) Hypothyroidism: Qualified Codes: E03.9 - Hypothyroidism, unspecified (2) Hypertension: Qualified Codes: I10 - Essential (primary) hypertension (3) PNA (pneumonia): Qualified Codes: J18.9 - Pneumonia, unspecified organism Aixa Figueroa MD Mar 19, 2017 22:12
[2017-03-20] VITALS (20 sets, daily range): BP systolic 107–192; BP diastolic 59–167; PULSE 91–118; RESP 12–18; TEMP 97.1–98.1; O2SAT 93–98
[2017-03-20] MEDS: HYDROCORTISONE SOD SUCCINATE 100 MG VIAL IV PUSH SCH ×3 (02:00→17:18)
[2017-03-20] MEDS: CHLORHEXIDINE GLUCONATE 2 % 1 PACK (2 CLOTHS) TOP SCH (04:00)
[2017-03-20] MEDS: LEVOTHYROXINE SODIUM 50 MCG TAB PO SCH (04:23)
[2017-03-20] MEDS: HEPARIN SODIUM - SQ 10,000 UNITS/ML VIAL SQ SCH ×3 (04:23→21:34)
--- NOTE | 2017-03-20 05:45 | RADRPT ---
EXAM DATE/TIME: 03/20/2017 04:57 [facility] COMPARISON: CHEST SINGLE AP, March 18, 2017, 3:45. INDICATIONS : Short of breath. MEDICAL HISTORY : Carcinoma, colon. Hypertension Cardiovascular disease. Diabetes CVA SURGICAL HISTORY : None. ENCOUNTER: Subsequent ACUITY: 1 week PAIN SCORE: 0/10 LOCATION: Bilateral chest FINDINGS: A single view of the chest demonstrates endotracheal tube in good position. Nasogastric tube enters s tomach. Right [id number] in superior vena cava. Bilateral mostly basilar lung consolidation. Cardi omegaly. CONCLUSION: 1. Endotracheal tube and nasogastric tube in good position. Basilar airspace disease increased from S eptember 25. Samuel Lin MD on March 20, 2017 at 5:42 Board Certified Radiologist. This report was verified electronically.
[2017-03-20 07:05] LABS: HEMATOCRIT 36.5 % (35.0-46.0); MEAN CORPUSCULAR HEMOGLOBIN 29.3 PG (27.0-34.0); MEAN CORPUSCULAR HGB CONC 32.6 % (32.0-36.0); PLATELET COUNT 134 TH/MM3 (150-450); RED BLOOD COUNT 4.06 MIL/MM3 (4.00-5.30); RED CELL DISTRIBUTION WIDTH 15.5 % (11.6-17.2); REVIEW FLAG FINAL; WHITE BLOOD COUNT 14.1 TH/MM3 (4.0-11.0)
[2017-03-20 07:39] LABS: BICARBONATE 31.7 MEQ/L (21.0-32.0)
[2017-03-20] MEDS: INSULIN ASPART SUPPLEMENTAL SCALE SQ SCH ×4 (08:00→21:33)
[2017-03-20 08:04] LABS: POTASSIUM 2.4 MEQ/L (3.5-5.1)
[2017-03-20] MEDS: POTASSIUM CHLOR 40 MEQ PREMIX 100 ML IV PRN (08:12)
[2017-03-20] MEDS: DOCUSATE SODIUM 50 MG/SENNA 8.6 MG TAB PO SCH ×2 (08:18→21:34)
[2017-03-20] MEDS: AMIODARONE 200 MG TAB PO SCH ×2 (08:18→21:34)
[2017-03-20] MEDS: PRAVASTATIN SOD 40 MG TAB PO SCH (08:18)
[2017-03-20] MEDS: LACTULOSE SYRUP 20 GM/30 ML CUP NG SCH (08:18)
[2017-03-20] MEDS: BUMETANIDE INJ 1 MG/4 ML VIAL IV PUSH SCH ×2 (08:20→17:18)
[2017-03-20] MEDS: SODIUM CHLORIDE 0.9% FLUSH 10 ML FLUSH IV FLUSH SCH ×2 (08:20→21:35)
[2017-03-20] MEDS: ARTIFICIAL TEARS OPTH SOLN 15 ML BTL EACH EYE SCH ×3 (08:21→17:18)
--- NOTE | 2017-03-20 08:54 | HHI.FPPN ---
Subjective Remarks Patient seen and examined this morning. Intubated and sedated. Intubation settings at 12 breaths per minute, 5 PEEP, FiO2 of 35. Temperature 97.1, pulse ranging between 91-102, blood pressure ranging between 141-192/77-167. She is currently off pressors. Yesterday she felt a CPAP trial. Chest x-ray concerning for increased axillary airspace disease. White blood cell count 14.1 up from yesterday 12.3. Lactic acid elevated at 2.3. (Smuit Flor MD, R3) Objective Vitals Vital Signs Date Time Temp Pulse Resp B/P (MAP) Pulse Ox O2 Delivery O2 Flow Rate FiO2 03/20/17 07:29 95 35 03/20/17 06:00 95 149/75 (99) 146/79 (101) 03/20/17 06:00 91 152/77 (102) 144/140 (141) 03/20/17 06:00 91 03/20/17 04:36 95 35 03/20/17 04:00 97.1 102 12 192/93 (126) 96 167/167 (167) 03/20/17 04:00 35 03/20/17 04:00 102 03/20/17 02:00 97 03/20/17 00:00 97.8 101 12 141/140 (140) 93 03/20/17 00:00 101 03/20/17 00:00 35 03/19/17 23:53 95 35 03/19/17 22:24 96 35 03/19/17 22:00 101 03/19/17 20:00 98.5 97 12 159/87 (111) 98 157/82 (107) 03/19/17 20:00 35 03/19/17 20:00 97 03/19/17 18:30 98 12 140/80 (100) 97 146/79 (101) 03/19/17 18:00 95 149/75 (99) 146/79 (101) 03/19/17 18:00 95 03/19/17 18:00 95 12 149/75 (99) 95 146/79 (101) 03/19/17 17:30 89 13 138/80 (99) 92 142/77 (98) 03/19/17 17:00 92 14 155/96 (115) 98 167/87 (113) 03/19/17 16:33 96 13 163/87 (112) 98 161/86 (111) 03/19/17 16:30 102 19 183/119 (140) 98 03/19/17 16:00 98.5 90 14 123/81 (95) 96 136/73 (94) 03/19/17 16:00 90 03/19/17 16:00 35 03/19/17 15:30 92 13 134/71 (92) 97 03/19/17 15:17 98 35 03/19/17 15:09 95 13 129/88 (102) 98 141/78 (99) 03/19/17 15:03 95 16 169/104 (125) 99 03/19/17 15:00 98 12 160/105 (123) 98 03/19/17 14:30 90 16 148/98 (115) 98 03/19/17 14:03 95 18 150/95 (113) 97 150/94 (112) 03/19/17 14:00 100 03/19/17 14:00 100 16 152/106 (121) 98 162/97 (118) 03/19/17 13:42 96 20 153/90 (111) 98 165/161 (162) 03/19/17 13:33 114 19 192/122 (145) 100 200/118 (145) 03/19/17 13:30 95 12 164/104 (124) 98 156/150 (152) 03/19/17 13:00 97 13 142/89 (106) 98 161/93 (115) 03/19/17 12:30 99 35 03/19/17 12:00 98.5 92 13 129/87 (101) 99 137/76 (96) 03/19/17 12:00 92 03/19/17 12:00 35 03/19/17 11:31 81 13 125/68 (87) 98 121/69 (86) 03/19/17 11:00 82 11 121/71 (88) 98 129/73 (91) 03/19/17 10:30 109 13 139/98 (112) 97 164/87 (112) 03/19/17 10:00 106 12 139/91 (107) 98 150/83 (105) 03/19/17 10:00 106 I/O 9/26/17 9/03/19/17 03/20/17 03/20/17 03/20/17 07:00 15:00 23:00 07:00 15:00 23:00 Intake Total 586 ml 111 ml 734 ml 667 ml Output Total 1200 ml 2000 ml 2201 ml Balance -614 ml 111 ml -1266 ml -1534 ml Intake IV Total 111 ml 265 ml Tube Feeding 586 ml 349 ml 667 ml Tube Irrigant 120 ml Output Urine Total 1200 ml 2000 ml 2200 ml Stool Total 1 ml # Bowel Movements 1 1 (Sumit Flor MD, R3) Result Diagram: 03/20/1759903/20/17599 Objective Remarks GENERAL: Well-nourished, well-developed obese female. Sedated and intubated. SKIN: Warm and dry. HEAD: Normocephalic. EYES: No scleral icterus. No injection or drainage. NECK: Supple, trachea midline. No JVD or lymphadenopathy. CARDIOVASCULAR: Irregularly irregular rate and rhythm without murmurs, gallops, or rubs. RESPIRATORY: Breath sounds equal bilaterally. No accessory muscle use. GASTROINTESTINAL: Abdomen soft, non-tender, distended. Bowel sounds present. MUSCULOSKELETAL: No cyanosis, 2+ pitting edema in lower extremities bilaterally (Sumit Flor MD, R3) Date of Insertion: Mar 15, 2017 (Sumit Flor MD, R3) A/P Assessment and Plan Patient is a 71 year old female with a PMH significant for colon cancer s/p chemotherapy, atrial fibrillation on Eliquis, HTN, DM type 2, and MDD who presented to the ED with abdominal pain, nausea and vomiting and was found to have severe sepsis secondary to PNA and pyelonephritis in addition to atrial fibrillation with RVR. She rapidly decompensated into respiratory failure and was intubated on 03/15, now in critical condition with sepsis. Discharge Planning Unclear timetable, patient in critical condition. sdw Dr. Greenberg (Sumit Flor MD, R3) Attending Attestation Patient seen and examined. Case reviewed and discussed with the resident team. Agree with plan of care as discussed with me and documented in the resident note. she is stable overall with good even high BPs. will make small med adjustments as follows: effexor is not crushable and she is getting tube feeds so will change to liquid low dose prozac. people can get a withdrawal from SSRIs so when she comes off her vent and sedation she can avoid withdrawal sxs will stop the cholestyramine as it can absorb other meds. she is getting multiple meds and it is very hard to take this as the 6 hour window around her other meds makes dosing very difficult added levimir 5 BID as she was on lantus 15 at home regularly and her glucoses have been in the 2-300s will cut her steroids (Lydia Greenberg MD) Problem List: (1) Sepsis due to Gram-negative organism with septic shock ICD Codes: A41.50 - Gram-negative sepsis, unspecified; R65.21 - Severe sepsis with septic shock Status: Acute Plan: Neurologic: AMS-toxic encephalopathy secondary to sepsis History of TIA x 2 Major Depressive Disorder Neurochecks per ICU protocol Patient intubated for airway protection continues on propofol and fentanyl infusions for ventilator synchrony Ammonia elevated at 67 on admission, 44 yesterday, continue lactulose 03/15 CT brain-no intracranial abnormality Neurology consulted- Dr. Huff to consider MRI brain within the next few days Daily sedation vacation Respiratory: Acute Hypoxemic respiratory failure Pulmonary hypertension Carinal adenopathy 03/15 Patient intubated emergently FiO2 50, PEEP 10 today Maintain O2 sat greater than 92% Ventilator bundle Duonebs Q6H scheduled and Q2H when necessary 03/15 CT angiogram -pulmonary hypertension, no PE, enlarged precarinal and subcarinal lymphadenopathy 03/16 CXR shows persisting consolidation left mid and lower lung and improving infiltrates in the lower right lung 03/18 CXR: Stable basilar airspace disease 03/20 CXR: Increase basilar airspace disease Concern for pneumonia, infectious disease on board and recommendations are appreciated Pulmonary HTN not present on last echo in 03/16 Echo shows EF 55-60%, severe mitral annular calcification with moderate mitral valve stenosis, mildly dilated right atrium, mild to mod aortic valve stenosis, pulmonary arterial pressure 55.2 Cardiovascular: A. fib RVR Hypertension Patient initially on Cardizem infusion-heart rate now in 90's, discontinued for MAP < 60 Amiodarone 400mg PO BID. labetalol when necessary for hypertension. Off pressors currently Last echo 02/05- ejection fraction 55-60%. No RWMA. APA 35 mmHg, TV mild regurg, MV mild regurg 03/16 Echo results as above EPS- Dr. Lubin consulted Renal: Bilateral hydronephrosis Pyelonephrosis Continue Gallo catheter, output 470ml in past 24 hours 03/14-CT of the abdomen and pelvis-bilateral hydronephrosis, pyelonephrosis, perinephric stranding -- Strict I/Os Urology consulted- 03/16 renal US shows resolution of hydronephrosis, urinary bladder decompressed Creatinine 1.36 today FEN/GI: History of colon cancer status post chemotherapy and colectomy Abdominal hernia Continue tube feeds NGT to LIWS Hypokalemia at 2.4, on ICU electrolyte protocol. Repeat BMP this afternoon Heme/ID: Septic Shock due to gram negative carmela Community-acquired multilobar pneumonia Pyelonephritis Lactic acidemia Bandemia 03/15 Blood cultures growing Klebsiella pneumoniae 03/15 urine culture growing Klebsiella pneumonia 03/16 sputum culture: No growth to date 2 days legionella and streptococcus antigens negative ID consulted - Dr. Hansen, treat with Levaquin 03/19: Urine culture: Pending Heme- Onc consulted regarding carinal adenopathy lymphadenopathy, patient is S/ P completion of chemotherapy 09/2016. Repeat CT chest in 1-2 months to evaluate mediastinal lymph nodes as outpatient Trend lactate level 6.4->4.2->4.9->3.0->1.5->2.2->2.3 Endocrine: Diabetes mellitus Hypothyroidism High-dose SSI Continue Levothyroxine 50 mcgs/day Prophylaxis: GI Prophylaxis with famotidine BID DVT Prophylaxis with SCDs and Heparin 5000u Q8H Lines: Port right chest, peripheral IVs 2, left radial A-line (2) Pyelonephritis ICD Codes: N12 - Tubulo-interstitial nephritis, not specified as acute or chronic (3) PNA (pneumonia) ICD Codes: J18.9 - Pneumonia, unspecified organism (4) Atrial fibrillation with rapid ventricular response ICD Codes: I48.91 - Atrial fibrillation with rapid ventricular response Status: Acute (5) Diabetes mellitus, type II ICD Codes: E11.9 - Type 2 diabetes mellitus Status: Chronic (6) Hypertension ICD Codes: I10 - Essential (primary) hypertension Status: Chronic (7) Hypothyroidism ICD Codes: E03.9 - Hypothyroidism Status: Acute (8) Nutrition, metabolism, and development symptoms ICD Codes: R63.8 - Symptoms concerning nutrition, metabolism, and development Status: Acute (Sumit Flor MD, R3) Problem Qualifiers (1) PNA (pneumonia): Qualified Codes: J18.9 - Pneumonia, unspecified organism (2) Diabetes mellitus, type II: Qualified Codes: E11.9 - Type 2 diabetes mellitus without complications; Z79.4 - shelter (current) use of insulin (3) Hypertension: Qualified Codes: I10 - Essential (primary) hypertension (4) Hypothyroidism: Qualified Codes: E03.9 - Hypothyroidism, unspecified Sumit Flor MD, R3 Mar 20, 2017 08:54 Lydia Greenberg MD Mar 20, 2017 10:19
[2017-03-20] MEDS ORDERED: POTASSIUM CHLORIDE 20 MEQ PWD PACKET OG-TUBE ONE (09:15)
[2017-03-20] MEDS: CHOLESTYRAMINE 4 GM PACKET PO SCH (09:17)
[2017-03-20] MEDS: FAMOTIDINE 20 MG/2 ML VIAL IV PUSH SCH ×2 (09:17→21:34)
[2017-03-20] MEDS: INSULIN DETEMIR 100 UNITS/ML VIAL SQ SCH ×2 (10:15→21:34)
--- NOTE | 2017-03-20 10:51 | HHI.NPPN ---
Subjective History of Present Illness 71-year-old female with past medical history of colon cancer, diabetes mellitus, hypertension, hypothyroidism, history of TIA, history of chemotherapy for colon cancer, was admitted to the hospital with complaint of abdominal pain, nausea and vomiting. I was called to see the patient because of elevated creatinine. The patient did not have any previous history of renal disease. Her creatinine looking back it was 0.6 last month and she came with a creatinine 1.3 and has gone up to 1.8. Additional Remarks Patient remain and sedated, BP is stable and urine out put is better. Review of Systems General General Remarks Intubated and sedated. Objective Data Data Vital Signs Date Time Temp Pulse Resp B/P (MAP) Pulse Ox O2 Delivery O2 Flow Rate FiO2 03/20/17 10:00 91 03/20/17 08:00 98.0 105 17 159/99 (119) 96 112/97 (102) 03/20/17 08:00 96 03/20/17 08:00 35 03/20/17 07:29 95 35 03/20/17 06:00 95 149/75 (99) 146/79 (101) 03/20/17 06:00 91 152/77 (102) 144/140 (141) 03/20/17 06:00 91 03/20/17 04:36 95 35 03/20/17 04:00 97.1 102 12 192/93 (126) 96 167/167 (167) 03/20/17 04:00 35 03/20/17 04:00 102 03/20/17 02:00 97 03/20/17 00:00 97.8 101 12 141/140 (140) 93 03/20/17 00:00 101 03/20/17 00:00 35 03/19/17 23:53 95 35 03/19/17 22:24 96 35 03/19/17 22:00 101 03/19/17 20:00 98.5 97 12 159/87 (111) 98 157/82 (107) 03/19/17 20:00 35 03/19/17 20:00 97 03/19/17 18:30 98 12 140/80 (100) 97 146/79 (101) 03/19/17 18:00 95 149/75 (99) 146/79 (101) 03/19/17 18:00 95 03/19/17 18:00 95 12 149/75 (99) 95 146/79 (101) 03/19/17 17:30 89 13 138/80 (99) 92 142/77 (98) 03/19/17 17:00 92 14 155/96 (115) 98 167/87 (113) 03/19/17 16:33 96 13 163/87 (112) 98 161/86 (111) 03/19/17 16:30 102 19 183/119 (140) 98 03/19/17 16:00 98.5 90 14 123/81 (95) 96 136/73 (94) 03/19/17 16:00 90 03/19/17 16:00 35 03/19/17 15:30 92 13 134/71 (92) 97 03/19/17 15:17 98 35 03/19/17 15:09 95 13 129/88 (102) 98 141/78 (99) 03/19/17 15:03 95 16 169/104 (125) 99 03/19/17 15:00 98 12 160/105 (123) 98 03/19/17 14:30 90 16 148/98 (115) 98 03/19/17 14:03 95 18 150/95 (113) 97 150/94 (112) 03/19/17 14:00 100 03/19/17 14:00 100 16 152/106 (121) 98 162/97 (118) 03/19/17 13:42 96 20 153/90 (111) 98 165/161 (162) 03/19/17 13:33 114 19 192/122 (145) 100 200/118 (145) 03/19/17 13:30 95 12 164/104 (124) 98 156/150 (152) 03/19/17 13:00 97 13 142/89 (106) 98 161/93 (115) 03/19/17 12:30 99 35 03/19/17 12:00 98.5 92 13 129/87 (101) 99 137/76 (96) 03/19/17 12:00 92 03/19/17 12:00 35 03/19/17 11:31 81 13 125/68 (87) 98 121/69 (86) 03/19/17 11:00 82 11 121/71 (88) 98 129/73 (91) -: 03/20/17 0600 03/20/17 0600 Physical Exam General Appearance Remarks Intubated and sedated. Eyes Eye Exam: Pupils Equal Throat Throat Exam: Oral Mucosa [place] & Moist Neck Neck Exam: Neck Supple, Trachea Midline Pulmonary Resp Exam: Rhonchi, Decreased Bases, Diminished Breath Sounds, Poor Inspiratory Effort Cardiology CV Exam: Regular, Tachycardia Gastrointestinal/Abdomen GI Exam: Soft, Non-Tender, Bowel Sounds Present, Non-Distended Extremeties Extremities Exam: Trace Edema Neurologic Neuro Exam: Sedated Assessment/Plan Assessment Summary: ASH/Acute Renal Failure, Hypotension Problem List: (1) Respiratory failure ICD Codes: J96.90 - Respiratory failure, unspecified, unspecified whether with hypoxia or hypercapnia (2) Acute kidney failure ICD Codes: N17.9 - Acute kidney failure, unspecified (3) Hypothyroidism ICD Codes: E03.9 - Hypothyroidism Status: Acute (4) Hypertension ICD Codes: I10 - Essential (primary) hypertension Status: Chronic (5) PNA (pneumonia) ICD Codes: J18.9 - Pneumonia, unspecified organism (6) Hyperlipidemia ICD Codes: E78.5 - Hyperlipidemia Status: Acute (7) Cancer, colon ICD Codes: C18.9 - Malignant neoplasm of colon, unspecified Status: Acute Plan Most likely has ASH due to ATN. Patient has been non oliguric. Creatinine is improving and now 1.36. K is 2.4 and replaced. Continue Bumex, has been non oliguric. Avoid Nephrotoxins. Continue antibiotics. Follow the urine out put and BMP. D/W the at bed side. Problem Qualifiers (1) Hypothyroidism: Qualified Codes: E03.9 - Hypothyroidism, unspecified (2) Hypertension: Qualified Codes: I10 - Essential (primary) hypertension (3) PNA (pneumonia): Qualified Codes: J18.9 - Pneumonia, unspecified organism Aixa Figueroa MD Mar 20, 2017 10:51
[2017-03-20] MEDS: FLUoxetine HCL LIQUID 20 MG/5 ML CUP PO SCH (11:00)
--- NOTE | 2017-03-20 11:11 | HHI.CCPN ---
Subjective Remarks/Hospital Course This is a 71 year old female with a PMH significant for colon cancer s/p chemotherapy, atrial fibrillation previously on Eliquis discontinued for GI bleeding, HTN, DM type 2, and MDD who presented to the ED with abdominal pain, nausea and vomiting.The patient stated that she had pain in her left side this morning that radiated to her lower abdomen and caused her to have nausea and vomiting. She states that she has been short of breath for the past 3 weeks and progressively more fatigued. Her states that she has been becoming progressively weaker and sleeping excessively at times. At 3AM this morning, he noticed that she was trying to talk but "wasn't making any sense." He states that she has been so short of breath that she has been having difficulty finishing sentences without becoming short of breath. She notes dysuria, urinary urgency and frequency for the past 3-4 days. Imaging studies and laboratory studies were performed. Notably CTA of the chest reveal pulmonary hypertension and carinal lymphadenopathy. CT abdomen and pelvis revealed bilateral hydronephrosis and pyelonephrosis with perinephric stranding. Cultures were sent, the patient was noted to have bacteremia notably gram- negative rods. The patient was in A. fib RVR in the ED the patient received Cardizem bolus and was placed on a Cardizem infusion and transferred to ICU. Upon admission to ICU the patient became progressively short of breath with escalating alternation in mental status critical care medicine was consulted. The patient's heart rate at that time was in the 130s systolic pressure 140s and O2 sat high 80s. Brief discussion with purpose of emergent intubation. Subjective: 03/16: Overnight the patient continued to have hemodynamic instability, now septic shock. Patient continues in A. fib with HR low 100's. Patient on maximum doses currently of norepinephrine and vasopressin infusions. [place]- cortisone added to medication regimen, Sodium bicarbonate infusion initiated. Imaging revealed hydronephrosis and pyelonephrosis patient seen by Dr. Larose, urine output now decreased to 150cc total over the last 12hrs, with continued elevation in creatinine. Planned renogram this a.m., to rule out obstruction with possible placement of nephrostomy tubes, and nephrology also consulted. Patient was seen by Dr. Candelario, carinal /hilar lymphadenopathy most likely not associated with carcinoma, plan for outpatient scan in 2-3 months. FiO2 was decreased to 60% overnight, ECHO pending her evaluation of cardiac status and pulmonary hypertension. 03/17: Overnight vasopressors weaned significantly, currently on lower doses. The patient continues on sodium bicarbonate infusion. Renogram canceled secondary to hemodynamic instability yesterday renal ultrasound performed revealed no hydronephrosis, creatinine continues to be elevated most likely secondary to acute kidney injury secondary to hypotension and septic shock. Nephrology consult pending. Echo revealed severe mitral valve stenosis and calcification with pulmonary hypertension and PASP 55.2 03/18: Remains sedated, orally intubated on mech vent. Off levophed. 03/19: Remains sedated, orally intubated on mechanical ventilation. Off Levophed. Blood pressure actually running high. Failed C Pap trials 03/20: Remains sedated, orally intubated on mechanical ventilation. Currently in A. fib. Off pressors. Objective Vital Signs Date Time Temp Pulse Resp B/P (MAP) Pulse Ox O2 Delivery O2 Flow Rate FiO2 03/20/17 10:00 91 03/20/17 08:00 98.0 17 159/99 (119) 96 112/97 (102) 03/20/17 08:00 35 Intake and Output 03/20/17 03/20/17 03/21/17 08:00 16:00 00:00 Intake Total 667 ml Output Total 2201 ml Balance -1534 ml Result Diagram: 03/20/17 0600 03/20/17 0600 Imaging Last 48 hours Impressions Chest X-Ray 03/20/17 0600 Signed Impressions: Service Date/Time: Monday, March 20, 2017 04:57 - CONCLUSION: 1. Endotracheal tube and nasogastric tube in good position. Basilar airspace disease increased from March 18. Samuel Lin MD Last Impressions Chest X-Ray 03/17/17 0000 Signed Impressions: Service Date/Time: Friday, March 17, 2017 06:22 - CONCLUSION: Persistent infiltrates consolidation left lower lung and patchy infiltrates in the central right lung. Antonio Voss MD Renal Ultrasound 03/16/17 0000 Signed Impressions: Service Date/Time: Thursday, March 16, 2017 11:27 - CONCLUSION: The hydronephrosis has resolved. Urinary bladder is decompressed.. Jose Flores MD CT Angiography 03/15/17 0520 Signed Impressions: Service Date/Time: Wednesday, March 15, 2017 07:46 - CONCLUSION: 1. No evidence for pulmonary embolism. 2. Cardiomegaly with enlargement of pulmonary arteries likely from pulmonary arterial hypertension. 3. Bibasilar patchy densities could be atelectasis or infiltrate. 4. Mosaic attenuation which can be seen with small airway disease. 5. Enlarged precarinal and subcarinal adenopathy. Jai Queen MD Head CT 03/15/17 0000 Signed Impressions: Service Date/Time: Wednesday, March 15, 2017 07:47 - CONCLUSION: No acute intracranial disease. Jai Queen MD Abdomen/Pelvis CT 03/15/17 0000 Signed Impressions: Service Date/Time: Wednesday, March 15, 2017 07:51 - CONCLUSION: 1. Bilateral hydronephrosis with extensive stranding in the perinephric regions greater on the left. 2. Mild circumferential wall thickening within the bladder with mild distention. 3. Postsurgical changes rectosigmoid junction. 4. Small fat containing abdominal wall hernias. Jai Queen MD Last Impressions Chest X-Ray 03/16/17 0600 Signed Impressions: Service Date/Time: Thursday, March 16, 2017 04:58 - CONCLUSION: Persisting consolidation left mid and lower lung and improving infiltrates in the lower right lung. Antonio Voss MD CT Angiography 03/15/17 0520 Signed Impressions: Service Date/Time: Wednesday, March 15, 2017 07:46 - CONCLUSION: 1. No evidence for pulmonary embolism. 2. Cardiomegaly with enlargement of pulmonary arteries likely from pulmonary arterial hypertension. 3. Bibasilar patchy densities could be atelectasis or infiltrate. 4. Mosaic attenuation which can be seen with small airway disease. 5. Enlarged precarinal and subcarinal adenopathy. Jai Queen MD Head CT 03/15/17 0000 Signed Impressions: Service Date/Time: Wednesday, March 15, 2017 07:47 - CONCLUSION: No acute intracranial disease. Jai Queen MD Abdomen/Pelvis CT 03/15/17 0000 Signed Impressions: Service Date/Time: Wednesday, March 15, 2017 07:51 - CONCLUSION: 1. Bilateral hydronephrosis with extensive stranding in the perinephric regions greater on the left. 2. Mild circumferential wall thickening within the bladder with mild distention. 3. Postsurgical changes rectosigmoid junction. 4. Small fat containing abdominal wall hernias. Jai Queen MD Last Impressions Chest X-Ray 03/15/17519 Signed Impressions: Service Date/Time: Wednesday, March 15, 2017 05:41 - CONCLUSION: Opacity in the perihilar region bilaterally suggesting either central infiltrates or adenopathy. Antonio Voss MD CT Angiography 03/15/17519 Signed Impressions: Service Date/Time: Wednesday, March 15, 2017 07:46 - CONCLUSION: 1. No evidence for pulmonary embolism. 2. Cardiomegaly with enlargement of pulmonary arteries likely from pulmonary arterial hypertension. 3. Bibasilar patchy densities could be atelectasis or infiltrate. 4. Mosaic attenuation which can be seen with small airway disease. 5. Enlarged precarinal and subcarinal adenopathy. Jai Queen MD Head CT 03/15/17 0000 Signed Impressions: Service Date/Time: Wednesday, March 15, 2017 07:47 - CONCLUSION: No acute intracranial disease. Jai Queen MD Abdomen/Pelvis CT 03/15/17 0000 Signed Impressions: Service Date/Time: Wednesday, March 15, 2017 07:51 - CONCLUSION: 1. Bilateral hydronephrosis with extensive stranding in the perinephric regions greater on the left. 2. Mild circumferential wall thickening within the bladder with mild distention. 3. Postsurgical changes rectosigmoid junction. 4. Small fat containing abdominal wall hernias. Jai Queen MD Objective Remarks GENERAL: Obese critically ill-appearing female , sedated and intubated. SKIN: Warm and dry. HEAD: Atraumatic. Normocephalic. EYES: Pupils equal and round. No scleral icterus. No injection or drainage. ENT: No nasal bleeding or discharge. Mucous membranes pink and moist. NECK: Trachea midline. No JVD. CARDIOVASCULAR: Irregularly irregular rhythm. RESPIRATORY: Mechanical ventilation. Clear to auscultation. Breath sounds equal bilaterally. GASTROINTESTINAL: Abdomen soft, protuberant non-tender, nondistended. No guarding. MUSCULOSKELETAL: Extremities without clubbing, cyanosis, or edema. No obvious deformities. NEUROLOGICAL: Sedated, orally intubated on mechanical ventilation, moves all 4 extremities on lightening sedation. Procedures 03/16- Renogram cancelled . Renal US performed. 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 daily CPAP trials. Bronchodilators every 6 hours scheduled and every [address] angiogram -pulmonary hypertension, no PE, enlarged precarinal and subcarinal lymphadenopathy Chest x-rays ABGs when clinically indicated-ABG improved 7.34/44/208/24/-1.4 03/17- CXR -consolidations B/L lobes worsened Cardiovascular: A. fib RVR Hypertension Patient arrived on Cardizem infusion-heart rate 130's, discontinued for MAP less than 60 Patient's home med amiodarone 200 mg daily increased to 400 mg twice a day. Labetalol when necessary for hypertension. Off pressors currently. Last echo 01/2015- ejection fraction 55-60%. No RWMA. PAP 35 mmHg, TV mild regurg ,MV mild regurg ECHO 03/16-EF 55- 60%. No RWMA, severe mitral valve annular calcification. Moderate mitral stenosis. Trace to mild MR, moderate TR, PAS P 55.2, trivial pulmonary valve regurgitation EPS- Dr. Lubin consulted. May need cardioversion with anticoagulation/JOSE - will defer to Dr. Lubin. Renal: Bilateral hydronephrosis-resolved Pyelonephrosis Acute kidney injury most likely secondary to septic shock Elevated creatinine Insert and maintain Gallo catheter 03/14-CT of the abdomen and pelvis-bilateral hydronephrosis, pyelonephrosis, perinephric stranding 03/16 renal ultrasound-no hydronephrosis Creatinine 1.6-> 1.8 UOP last 24 hours improvement-1175cc Sodium bicarbonate infusion 50 cc/hour -- Strict I/Os FEN/GI: History of colon cancer status post chemotherapy Abdominal hernia NGT -Advance tube feeds with Glucerna 1.5 @ 30cc/hr with goal of 60cc/hr. Bowel regimen Heme/ID: Septic shock Community-acquired multilobar pneumonia Lactic acidemia Bandemia-resolved Blood cultures Gram-negative rods Urine culture Gram-negative rods Follow-up sputum culture Streptococcal and legionella antigens negative ID consulted - Dr. Hansen Empiric antibiotics include vancomycin, Zosyn and patient received 1 dose of Rocephin in the ED Heme- Onc consulted regarding carinal adenopathy lymphadenopathy, patient is S/ P completion of chemotherapy 06/2016 Endocrine: Diabetes mellitus Hypothyroidism High-dose insulin medication regimen Continue Levothyroxine 50 mcgs/day Obtain thyroid panel Glucose monitoring per ICU protocol -- SSI Prophylaxis: GI Prophylaxis famotidine BID DVT Prophylaxis -- SCDs Heparin 5000u BID Lines: Port right chest, peripheral IVs 2, left radial A-line Dispo: Discussed with [employer], discussed with Dr. Moore. Discussed current clinical status and plan of care with patient's at bedside and he voiced understanding and was agreeable. This patient remains critically ill with one or more organ systems which are or may become a threat to life. I have spent in excess of 30 minutes discontinuously in the care and management of this patient. This time is exclusive of procedures, and includes, but is not limited to, evaluation of the patient, review of the medical record, discussions with family, consultants, nursing staff, or respiratory therapy, and documentation in the medical record. Fernando Srinivasan MD Mar 20, 2017 11:11
[2017-03-20] MEDS ORDERED: DILTIAZEM HCL 25 MG/5 ML VIAL ONE (11:45)
[2017-03-20] MEDS: fentaNYL 2,500 MCG/NS 250 ML IV PRN ×2 (13:23→21:33)
--- NOTE | 2017-03-20 14:08 | HHI.IDPN ---
Subjective Subjective Remarks Patient is a 71-year-old female, admitted to the hospital for evaluation of abdominal pain, nausea and vomiting. She apparently has been complaining of left-sided abdominal pain goes down to the lower abdomen. She also started having nausea and vomiting. There was mention of some dysuria, urgency and frequency in the last 3-4 days. Patient also apparently has been having problem with shortness of breath over the last 3 weeks, and generalized weakness and easy fatigability. There was no mention of any fever or chills or sweats. On the morning of admission, the patient was noted to be confused, and was having more shortness of breath. There is no mention of any cough or congestion, or any complaint of any chest pain. Patient was brought into the hospital for further evaluation and treatment. Patient has had imaging studies done. CTA did not show any pulmonary embolism. CT of the abdomen and pelvis showing some mild bilateral hydronephrosis and some perinephric stranding. Her UA has pyuria. 2 blood cultures on admission are now reported as growing gram-negative carmela. Her WBC is normal. Creatinine is 1.32. Patient went into significant respiratory distress, and ended up getting intubated. She has received Zosyn, and vancomycin. Neurology has been consult. Infectious disease consultation requested to evaluate the patient with severe sepsis. Notes reviewed D/W RN Temps low grade Off all pressors Creatinine higher but UO improved BC and UC with pansensitive Klebsiella Sputum C/S negative WBC slightly higher Repeat BC negative Echo with mild to mod and mod MS Renal US - hydronephrosis resolved Monitor shows atrial fib Antibiotics Levaquin Lines Port Past Medical History Atrial fibrillation (ablation x 2 in 2013) Eliquis stopped on 12/2015 for GI bleed Colon Cancer (sigmoid colon adenocarcinoma) Compression Fracture (12/2015 L3) Depression DM Type 2 Hyperlipidemia Hypertension Hypothyroidism TIA x 2 in 2014 Past Surgical History Abdominal surgery- 's exploratory laparotomy Sigmoid colectomy, low anterior resection, repair of ventral hernia, 2016 [id number] placement Previous cardiac ablation for atrial fibrillation Appendectomy Section x 2 EGD 12/2015 Flexible sigmoidoscopy 12/2015 Hernia repair Colonoscopy 2015 Allergies: Coded Allergies: codeine (Unverified Allergy, Severe, Nausea/Vomiting, 03/15/17) Uncoded Allergies: METAL (Allergy, Intermediate, hives, 03/08/16) SURGICAL STEEL (Allergy, Intermediate, hives, 03/08/16) Objective . Vital Signs Date Time Temp Pulse Resp B/P (MAP) Pulse Ox O2 Delivery O2 Flow Rate FiO2 03/20/17 13:00 98.1 102 15 111/63 (79) 98 130/67 (88) 03/20/17 12:00 35 03/20/17 12:00 96 03/20/17 12:00 99 14 107/66 (80) 96 123/66 (85) 03/20/17 11:55 95 35 03/20/17 10:00 91 03/20/17 08:00 98.0 105 17 159/99 (119) 96 112/97 (102) 03/20/17 08:00 96 03/20/17 08:00 35 03/20/17 07:29 95 35 03/20/17 06:00 95 149/75 (99) 146/79 (101) 03/20/17 06:00 91 152/77 (102) 144/140 (141) 03/20/17 06:00 91 03/20/17 04:36 95 35 03/20/17 04:00 97.1 102 12 192/93 (126) 96 167/167 (167) 03/20/17 04:00 35 03/20/17 04:00 102 03/20/17 02:00 97 03/20/17 00:00 97.8 101 12 141/140 (140) 93 03/20/17 00:00 101 03/20/17 00:00 35 03/19/17 23:53 95 35 03/19/17 22:24 96 35 03/19/17 22:00 101 03/19/17 20:00 98.5 97 12 159/87 (111) 98 157/82 (107) 03/19/17 20:00 35 03/19/17 20:00 97 03/19/17 18:30 98 12 140/80 (100) 97 146/79 (101) 03/19/17 18:00 95 149/75 (99) 146/79 (101) 03/19/17 18:00 95 03/19/17 18:00 95 12 149/75 (99) 95 146/79 (101) 03/19/17 17:30 89 13 138/80 (99) 92 142/77 (98) 03/19/17 17:00 92 14 155/96 (115) 98 167/87 (113) 03/19/17 16:33 96 13 163/87 (112) 98 161/86 (111) 03/19/17 16:30 102 19 183/119 (140) 98 03/19/17 16:00 98.5 90 14 123/81 (95) 96 136/73 (94) 03/19/17 16:00 90 03/19/17 16:00 35 03/19/17 15:30 92 13 134/71 (92) 97 03/19/17 15:17 98 35 03/19/17 15:09 95 13 129/88 (102) 98 141/78 (99) 03/19/17 15:03 95 16 169/104 (125) 99 03/19/17 15:00 98 12 160/105 (123) 98 03/19/17 14:30 90 16 148/98 (115) 98 03/19/17 14:03 95 18 150/95 (113) 97 150/94 (112) 03/19/17 14:00 100 03/19/17 14:00 100 16 152/106 (121) 98 162/97 (118) . Laboratory Tests Test 03/19/17 04:30 03/20/17 06:00 White Blood Count 12.3 TH/MM3 14.1 TH/MM3 Red Blood Count 3.86 MIL/MM3 4.06 MIL/MM3 Hemoglobin 11.1 GM/DL 11.9 GM/DL Hematocrit 34.2 % 36.5 % Mean Corpuscular Volume 88.5 FL 90.0 FL Mean Corpuscular Hemoglobin 28.9 PG 29.3 PG Mean Corpuscular Hemoglobin Concent 32.6 % 32.6 % Red Cell Distribution Width 15.9 % 15.5 % Platelet Count 110 TH/MM3 134 TH/MM3 Mean Platelet Volume 9.9 FL 10.2 FL Neutrophils (%) (Auto) 82.9 % Lymphocytes (%) (Auto) 6.7 % Monocytes (%) (Auto) 10.3 % Eosinophils (%) (Auto) 0.0 % Basophils (%) (Auto) 0.1 % Neutrophils # (Auto) 10.2 TH/MM3 Lymphocytes # (Auto) 0.8 TH/MM3 Monocytes # (Auto) 1.3 TH/MM3 Eosinophils # (Auto) 0.0 TH/MM3 Basophils # (Auto) 0.0 TH/MM3 CBC Comment AUTO DIFF Differential Comment AUTO DIFF CONFIRMED Platelet Estimate LOW Platelet Morphology Comment NORMAL Laboratory Tests Test 03/19/17 04:30 03/20/17 06:00 Blood Urea Nitrogen 49 MG/DL 50 MG/DL Creatinine 1.69 MG/DL 1.36 MG/DL Random Glucose 250 MG/DL 237 MG/DL Total Protein 6.2 GM/DL Albumin 2.2 GM/DL Calcium Level 7.3 MG/DL 8.0 MG/DL Alkaline Phosphatase 83 U/L Aspartate Amino Transf (AST/SGOT) 34 U/L Alanine Aminotransferase (ALT/SGPT) 18 U/L Total Bilirubin 0.7 MG/DL Sodium Level 144 MEQ/L 148 MEQ/L Potassium Level 3.4 MEQ/L 2.4 MEQ/L Chloride Level 104 MEQ/L 107 MEQ/L Carbon Dioxide Level 31.3 MEQ/L 31.7 MEQ/L Anion Gap 9 MEQ/L 9 MEQ/L Estimat Glomerular Filtration Rate 30 ML/MIN 38 ML/MIN Protein Corrected Calcium 7.8 MG/DL Ammonia 51 MCMOL/L Lactic Acid Level 2.3 mmol/L Microbiology Date/Time Source Procedure Growth Status 03/19/17 09:30 Urine Catheterized Urine Urine Culture - Preliminary NO GROWTH IN 24 HOURS. Resulted Imaging Chest X-Ray 03/18/17 06 Signed Impressions: Service Date/Time: Saturday, March 18, 2017 03:45 - CONCLUSION: 1. Apparatus in good position. Relatively stable basilar airspace disease. Samuel Lin MD Chest X-Ray 03/17/17 0000 Signed Impressions: Service Date/Time: Friday, March 17, 2017 06:22 - CONCLUSION: Persistent infiltrates consolidation left lower lung and patchy infiltrates in the central right lung. Antonio Voss MD Chest X-Ray 03/16/17 0600 Signed Impressions: Service Date/Time: Thursday, March 16, 2017 04:58 - CONCLUSION: Persisting consolidation left mid and lower lung and improving infiltrates in the lower right lung. Antonio Voss MD Renal Ultrasound 03/16/17 0000 Signed Impressions: Service Date/Time: Thursday, March 16, 2017 11:27 - CONCLUSION: The hydronephrosis has resolved. Urinary bladder is decompressed.. Jose Flores MD CT Angiography 03/15/17 0520 Signed Impressions: Service Date/Time: Wednesday, March 15, 2017 07:46 - CONCLUSION: 1. No evidence for pulmonary embolism. 2. Cardiomegaly with enlargement of pulmonary arteries likely from pulmonary arterial hypertension. 3. Bibasilar patchy densities could be atelectasis or infiltrate. 4. Mosaic attenuation which can be seen with small airway disease. 5. Enlarged precarinal and subcarinal adenopathy. Jai Queen MD Head CT 03/15/17 0000 Signed Impressions: Service Date/Time: Wednesday, March 15, 2017 07:47 - CONCLUSION: No acute intracranial disease. Jai Queen MD Abdomen/Pelvis CT 03/15/17 0000 Signed Impressions: Service Date/Time: Wednesday, March 15, 2017 07:51 - CONCLUSION: 1. Bilateral hydronephrosis with extensive stranding in the perinephric regions greater on the left. 2. Mild circumferential wall thickening within the bladder with mild distention. 3. Postsurgical changes rectosigmoid junction. 4. Small fat containing abdominal wall hernias. Jai Queen MD Physical Exam GENERAL: Sedated on the vent, looks comfortable on the vent SKIN: Warm and dry. No generalized rash HEAD: Atraumatic. Normocephalic. No temporal wasting, or tenderness. EYES: [place] conjunctiva. No petechia or hemorrhage. Pupils equal, round and reactive to light. No scleral icterus. No injection or drainage. EARS, NOSE AND THROAT: Nose without bleeding or purulent nasal discharge. She is orally intubated. NECK: Trachea midline. Supple and no meningeal signs CARDIOVASCULAR: Irregular rate and rhythm. No murmurs, rubs or gallops heard RESPIRATORY: Coarse breath sounds. Decreased at the bases. ABDOMEN: More distended, no reaction to palpation. Bowel sounds present and hypoactive. No guarding. No rebound. No organomegaly. EXTREMITIES: No clubbing, cyanosis. Edema both hands. Well perfused and warm. NEUROLOGICAL: Sedated, no Babinski, no ankle clonus PSYCHIATRIC: Unable to assess LINE: No evidence of infection - port R upper chest : Gallo in place, urine better Assessment & Plan Remarks IMPRESSION Severe sepsis, Klebsiella urosepsis, - off pressors - has pyelonephritis (has perinephric stranding on CT and mild hydro, no stone seen, no colitis on CT, has complaints) Respiratory failure, bilateral infiltrates, ?PNA - prob multifactorial: Fluid, inflammatory, ?PNA - sputum C/S negative Known Colon CA, with (+) LN, undergoing chemo - S/P sigmoid colectomy, low anterior resection Renal insufficiency due to sepsis Atrial fib, chronic, previous ablation done and MS Leukocytosis, increasing RECOMMENDATION Continue Levaquin Sputum G/S C/S Check BNP Follow temps - repeat BC if temp spikes Monitor progress Follow CBC Weaning as tolerated D/W RN Spoke with GenamauryRosaura MD Mar 20, 2017 14:08
[2017-03-20] MEDS: VASOPRESSIN INJ 40 UNITS in DEXTROSE 5% IN WATER 100ML INJ 98 ML IV SCH ×2 (15:57)
[2017-03-20 17:56] LABS: BICARBONATE 34.6 MEQ/L (21.0-32.0); POTASSIUM 4.5 MEQ/L (3.5-5.1)
[2017-03-21] VITALS (24 sets, daily range): BP systolic 104–161; BP diastolic 61–88; PULSE 80–130; RESP 12–16; TEMP 98.6–101.1; O2SAT 91–100
[2017-03-21] MEDS: HYDROCORTISONE SOD SUCCINATE 100 MG VIAL IV PUSH SCH ×3 (02:03→16:25)
[2017-03-21] MEDS: CHLORHEXIDINE GLUCONATE 2 % 1 PACK (2 CLOTHS) TOP SCH (04:00)
--- NOTE | 2017-03-21 05:14 | MB ---
cc: CHRIS LEVINE M.D. DATE OF CONSULTATION 03/20/2016 ELECTROPHYSIOLOGY CONSULT REASON FOR CONSULTATION Tachyarrhythmia, atrial fibrillation. HISTORY OF PRESENT ILLNESS Mrs. Marroquin is a 71-year-old female with history of colon cancer being treated with chemotherapy, history of high blood pressure, hyperlipidemia, diabetes mellitus who was admitted due to altered mental status. Sepsis is suspected. She was subsequently intubated and put on mechanical ventilation. Her heart rate is very high, very difficult to control. She was seen on mechanical ventilation. I was consulted for further evaluation and management. The chart was reviewed. The patient was evaluated, the case extensively discussed with her son, her and grandkids. ALLERGIES SURGICAL STEEL. CODEINE. SOCIAL HISTORY Negative for smoking and drinking. FAMILY HISTORY Noncontributory to her current medical condition. MEDICATIONS Mrs. Marroquin is currently on - 1. Vasopressin. 2. Cardizem IV. 3. Levaquin. 4. Magnesium. 5. Norepinephrine drip. 6. Potassium. 7. Bumex. 8. Insulin. 9. Effexor. REVIEW OF SYSTEMS Review of systems cannot be performed. The patient is on mechanical ventilation. PHYSICAL EXAMINATION GENERAL: Intubated, on mechanical ventilation. VITAL SIGNS: Blood pressure was 152/80, pulse 118, respiratory rate controlled by the ventilator. LUNGS: Ventilated. CARDIOVASCULAR: S1-S2, tachycardia. ABDOMEN: Obese. No mass. EXTREMITIES: No edema. TELEMETRY Currently shows atrial fibrillation with fast ventricular response. LABORATORY DATA Hemoglobin 11.9, white blood cell 14.1, creatinine is 1.27, potassium 4.6. INR 1.0. ASSESSMENT AND RECOMMENDATIONS Mrs. Marroquin is on mechanical ventilation. She has sepsis. She will be given intravenous antibiotics. Also she has atrial fibrillation. She had ablation over two years ago. Heart rate is getting very high whenever they try to extubate her. She is on Eliquis. At this point my recommendation is, if heart rate cannot be controlled, transesophageal echo and subsequent cardioversion. I discussed the case extensively with her family. I will monitor her during hospitalization and if necessary cardioversion will be performed for rate control. Chris Levine MD HS/ABELARDO /11:28 PM /4:59 AM
[2017-03-21 06:00] LABS: AUTOMATED NEUTROPHIL # 13.2 TH/MM3 (1.8-7.7); BASOPHIL % 0.3 % (0.0-2.0); EOSINOPHIL % 0.1 % (0.0-4.0); HEMATOCRIT 35.7 % (35.0-46.0); LYMPH % 5.5 % (9.0-44.0); LYMPHOCYTE # 0.9 TH/MM3 (1.0-4.8); MEAN CELL VOLUME 90.5 FL (80.0-100.0); MEAN CORPUSCULAR HEMOGLOBIN 29.2 PG (27.0-34.0); MEAN CORPUSCULAR HGB CONC 32.3 % (32.0-36.0); MONO % 13.6 % (0.0-8.0); NEUT % 80.5 % (16.0-70.0); PLATELET COUNT 151 TH/MM3 (150-450); RED BLOOD COUNT 3.94 MIL/MM3 (4.00-5.30); RED CELL DISTRIBUTION WIDTH 16.1 % (11.6-17.2); WHITE BLOOD COUNT 16.4 TH/MM3 (4.0-11.0)
[2017-03-21 06:05] LABS: HEMO FLAGS AUTO DIFF
[2017-03-21 06:27] LABS: ANION GAP 5 MEQ/L (5-15); AST (GOT) 32 U/L (15-37); BICARBONATE 34.8 MEQ/L (21.0-32.0); BLOOD UREA NITROGEN 48 MG/DL (7-18); CHLORIDE 111 MEQ/L (98-107); GLOMERULAR FILTRATION RATE 38 ML/MIN (>89); POTASSIUM 4.5 MEQ/L (3.5-5.1); SODIUM (NA) 151 MEQ/L (136-145)
[2017-03-21] MEDS: HEPARIN SODIUM - SQ 10,000 UNITS/ML VIAL SQ SCH ×3 (06:27→21:07)
[2017-03-21] MEDS: LEVOTHYROXINE SODIUM 50 MCG TAB PO SCH (06:27)
[2017-03-21 06:30] LABS: ALKALINE PHOSPHATASE 127 U/L (45-117); ALT (GPT) 18 U/L (10-53); TOTAL BILIRUBIN ADULT 0.6 MG/DL (0.2-1.0)
[2017-03-21] MEDS: fentaNYL 2,500 MCG/NS 250 ML IV PRN ×2 (07:41→23:52)
[2017-03-21] MEDS ORDERED: DILTIAZEM HCL 25 MG/5 ML VIAL IV PUSH ONE (07:45)
[2017-03-21 07:53] LABS: BANDS 13 % (0-6); CORRECTED NUCLEATED RBC 1 /100 WBC (0-0); METAMYELOCYTES 3 % (0-1); MYELOCYTES 2 % (0-0); NEUTROPHIL # MANUAL DIFF 13.8 TH/MM3 (1.8-7.7); POLYS (SEG NEUTROPHILS) 66 % (16-70); WBC DIFF SAMPLE 100
[2017-03-21 07:54] LABS: PLATELET ESTIMATE SMEAR NORMAL (NORMAL); PLATELET MORPHOLOGY NORMAL (NORMAL); SCAN/DIFF FINAL DIFF MANUAL; STOMATOCYTES 1+ (NORMAL)
[2017-03-21] MEDS: INSULIN ASPART SUPPLEMENTAL SCALE SQ SCH ×4 (08:00→21:00)
[2017-03-21] MEDS ORDERED: DILTIAZEM HCL 25 MG/5 ML VIAL IV PUSH PRN (08:00)
[2017-03-21] MEDS: LACTULOSE SYRUP 20 GM/30 ML CUP NG SCH (08:16)
[2017-03-21] MEDS: DOCUSATE SODIUM 50 MG/SENNA 8.6 MG TAB PO SCH ×2 (08:17→21:00)
[2017-03-21] MEDS: VASOPRESSIN INJ 40 UNITS in DEXTROSE 5% IN WATER 100ML INJ 98 ML IV SCH ×4 (08:37→23:52)
[2017-03-21] MEDS: FAMOTIDINE 20 MG/2 ML VIAL IV PUSH SCH ×2 (08:42→21:04)
--- NOTE | 2017-03-21 08:44 | HHI.CCPN ---
Subjective Remarks/Hospital Course This is a 71 year old female with a PMH significant for colon cancer s/p chemotherapy, atrial fibrillation previously on Eliquis discontinued for GI bleeding, HTN, DM type 2, and MDD who presented to the ED with abdominal pain, nausea and vomiting.The patient stated that she had pain in her left side this morning that radiated to her lower abdomen and caused her to have nausea and vomiting. She states that she has been short of breath for the past 3 weeks and progressively more fatigued. Her states that she has been becoming progressively weaker and sleeping excessively at times. At 3AM this morning, he noticed that she was trying to talk but "wasn't making any sense." He states that she has been so short of breath that she has been having difficulty finishing sentences without becoming short of breath. She notes dysuria, urinary urgency and frequency for the past 3-4 days. Imaging studies and laboratory studies were performed. Notably CTA of the chest reveal pulmonary hypertension and carinal lymphadenopathy. CT abdomen and pelvis revealed bilateral hydronephrosis and pyelonephrosis with perinephric stranding. Cultures were sent, the patient was noted to have bacteremia notably gram- negative rods. The patient was in A. fib RVR in the ED the patient received Cardizem bolus and was placed on a Cardizem infusion and transferred to ICU. Upon admission to ICU the patient became progressively short of breath with escalating alternation in mental status critical care medicine was consulted. The patient's heart rate at that time was in the 130s systolic pressure 140s and O2 sat high 80s. Brief discussion with purpose of emergent intubation. Subjective: 03/16: Overnight the patient continued to have hemodynamic instability, now septic shock. Patient continues in A. fib with HR low 100's. Patient on maximum doses currently of norepinephrine and vasopressin infusions. [place]- cortisone added to medication regimen, Sodium bicarbonate infusion initiated. Imaging revealed hydronephrosis and pyelonephrosis patient seen by Dr. Larose, urine output now decreased to 150cc total over the last 12hrs, with continued elevation in creatinine. Planned renogram this a.m., to rule out obstruction with possible placement of nephrostomy tubes, and nephrology also consulted. Patient was seen by Dr. Candelario, carinal /hilar lymphadenopathy most likely not associated with carcinoma, plan for outpatient scan in 2-3 months. FiO2 was decreased to 60% overnight, ECHO pending her evaluation of cardiac status and pulmonary hypertension. 03/17: Overnight vasopressors weaned significantly, currently on lower doses. The patient continues on sodium bicarbonate infusion. Renogram canceled secondary to hemodynamic instability yesterday renal ultrasound performed revealed no hydronephrosis, creatinine continues to be elevated most likely secondary to acute kidney injury secondary to hypotension and septic shock. Nephrology consult pending. Echo revealed severe mitral valve stenosis and calcification with pulmonary hypertension and PASP 55.2 03/18: Remains sedated, orally intubated on mech vent. Off levophed. 03/19: Remains sedated, orally intubated on mechanical ventilation. Off Levophed. Blood pressure actually running high. Failed C Pap trials 03/20: Remains sedated, orally intubated on mechanical ventilation. Currently in A. fib. Off pressors. 03/21: Remains sedated, orally intubated on mechanical ventilation. In A. fib with RVR. Seen by Dr. Lubin on 03/21. Failed C Pap trials yesterday. Objective Vital Signs Date Time Temp Pulse Resp B/P (MAP) Pulse Ox O2 Delivery O2 Flow Rate FiO2 03/21/17 07:09 91 40 03/21/17 06:00 124 03/21/17 06:00 153/88 (109) 149/86 (107) 03/21/17 04:00 99.3 12 Intake and Output 03/21/17 03/21/17 03/22/17 08:00 16:00 00:00 Intake Total 250 ml Output Total 1800 ml Balance -1550 ml Result Diagram: 03/21/17 0545 03/21/17 0545 Other Results Laboratory Tests Test 03/20/17 17:15 03/21/17 05:45 Blood Urea Nitrogen 48 MG/DL 48 MG/DL Creatinine 1.27 MG/DL 1.37 MG/DL Random Glucose 254 MG/DL 309 MG/DL Calcium Level 8.0 MG/DL 8.1 MG/DL Sodium Level 150 MEQ/L 151 MEQ/L Potassium Level 4.5 MEQ/L 4.5 MEQ/L Chloride Level 112 MEQ/L 111 MEQ/L Carbon Dioxide Level 34.6 MEQ/L 34.8 MEQ/L Anion Gap 3 MEQ/L 5 MEQ/L Estimat Glomerular Filtration Rate 42 ML/MIN 38 ML/MIN White Blood Count 16.4 TH/MM3 Red Blood Count 3.94 MIL/MM3 Hemoglobin 11.5 GM/DL Hematocrit 35.7 % Mean Corpuscular Volume 90.5 FL Mean Corpuscular Hemoglobin 29.2 PG Mean Corpuscular Hemoglobin Concent 32.3 % Red Cell Distribution Width 16.1 % Platelet Count 151 TH/MM3 Mean Platelet Volume 9.6 FL Neutrophils (%) (Auto) 80.5 % Lymphocytes (%) (Auto) 5.5 % Monocytes (%) (Auto) 13.6 % Eosinophils (%) (Auto) 0.1 % Basophils (%) (Auto) 0.3 % Neutrophils # (Auto) 13.2 TH/MM3 Lymphocytes # (Auto) 0.9 TH/MM3 Monocytes # (Auto) 2.2 TH/MM3 Eosinophils # (Auto) 0.0 TH/MM3 Basophils # (Auto) 0.0 TH/MM3 CBC Comment AUTO DIFF Differential Total Cells Counted 100 Neutrophils % (Manual) 66 % Band Neutrophils % 13 % Lymphocytes % 4 % Monocytes % 12 % Neutrophils # (Manual) 13.8 TH/MM3 Metamyelocytes 3 % Myelocytes 2 % Nucleated Red Blood Cells 1 /100 WBC Differential Comment FINAL DIFF MANUAL Platelet Estimate NORMAL Platelet Morphology Comment NORMAL Stomatocytes 1+ Total Protein 6.2 GM/DL Albumin 2.3 GM/DL Alkaline Phosphatase 127 U/L Aspartate Amino Transf (AST/SGOT) 32 U/L Alanine Aminotransferase (ALT/SGPT) 18 U/L Total Bilirubin 0.6 MG/DL Lactic Acid Level 1.4 mmol/L Imaging Last 48 hours Impressions Chest X-Ray 03/20/17 0600 Signed Impressions: Service Date/Time: Monday, March 20, 2017 04:57 - CONCLUSION: 1. Endotracheal tube and nasogastric tube in good position. Basilar airspace disease increased from March 18. Samuel Lin MD Last Impressions Chest X-Ray 03/17/17 0000 Signed Impressions: Service Date/Time: Friday, March 17, 2017 06:22 - CONCLUSION: Persistent infiltrates consolidation left lower lung and patchy infiltrates in the central right lung. Antonio Voss MD Renal Ultrasound 03/16/17 0000 Signed Impressions: Service Date/Time: Thursday, March 16, 2017 11:27 - CONCLUSION: The hydronephrosis has resolved. Urinary bladder is decompressed.. Jose Flores MD CT Angiography 03/15/17 0520 Signed Impressions: Service Date/Time: Wednesday, March 15, 2017 07:46 - CONCLUSION: 1. No evidence for pulmonary embolism. 2. Cardiomegaly with enlargement of pulmonary arteries likely from pulmonary arterial hypertension. 3. Bibasilar patchy densities could be atelectasis or infiltrate. 4. Mosaic attenuation which can be seen with small airway disease. 5. Enlarged precarinal and subcarinal adenopathy. Jai Queen MD Head CT 03/15/17 0000 Signed Impressions: Service Date/Time: Wednesday, March 15, 2017 07:47 - CONCLUSION: No acute intracranial disease. Jai Queen MD Abdomen/Pelvis CT 03/15/17 0000 Signed Impressions: Service Date/Time: Wednesday, March 15, 2017 07:51 - CONCLUSION: 1. Bilateral hydronephrosis with extensive stranding in the perinephric regions greater on the left. 2. Mild circumferential wall thickening within the bladder with mild distention. 3. Postsurgical changes rectosigmoid junction. 4. Small fat containing abdominal wall hernias. Jai Queen MD Last Impressions Chest X-Ray 03/16/17 0600 Signed Impressions: Service Date/Time: Thursday, March 16, 2017 04:58 - CONCLUSION: Persisting consolidation left mid and lower lung and improving infiltrates in the lower right lung. Antonio Voss MD CT Angiography 03/15/17 0520 Signed Impressions: Service Date/Time: Wednesday, March 15, 2017 07:46 - CONCLUSION: 1. No evidence for pulmonary embolism. 2. Cardiomegaly with enlargement of pulmonary arteries likely from pulmonary arterial hypertension. 3. Bibasilar patchy densities could be atelectasis or infiltrate. 4. Mosaic attenuation which can be seen with small airway disease. 5. Enlarged precarinal and subcarinal adenopathy. Jai Queen MD Head CT 03/15/17 0000 Signed Impressions: Service Date/Time: Wednesday, March 15, 2017 07:47 - CONCLUSION: No acute intracranial disease. Jai Queen MD Abdomen/Pelvis CT 03/15/17 0000 Signed Impressions: Service Date/Time: Wednesday, March 15, 2017 07:51 - CONCLUSION: 1. Bilateral hydronephrosis with extensive stranding in the perinephric regions greater on the left. 2. Mild circumferential wall thickening within the bladder with mild distention. 3. Postsurgical changes rectosigmoid junction. 4. Small fat containing abdominal wall hernias. Jai Queen MD Last Impressions Chest X-Ray 03/15/17519 Signed Impressions: Service Date/Time: Wednesday, March 15, 2017 05:41 - CONCLUSION: Opacity in the perihilar region bilaterally suggesting either central infiltrates or adenopathy. Antonio Voss MD CT Angiography 03/15/17519 Signed Impressions: Service Date/Time: Wednesday, March 15, 2017 07:46 - CONCLUSION: 1. No evidence for pulmonary embolism. 2. Cardiomegaly with enlargement of pulmonary arteries likely from pulmonary arterial hypertension. 3. Bibasilar patchy densities could be atelectasis or infiltrate. 4. Mosaic attenuation which can be seen with small airway disease. 5. Enlarged precarinal and subcarinal adenopathy. Jai Queen MD Head CT 03/15/17 0000 Signed Impressions: Service Date/Time: Wednesday, March 15, 2017 07:47 - CONCLUSION: No acute intracranial disease. Jai Queen MD Abdomen/Pelvis CT 03/15/17 0000 Signed Impressions: Service Date/Time: Wednesday, March 15, 2017 07:51 - CONCLUSION: 1. Bilateral hydronephrosis with extensive stranding in the perinephric regions greater on the left. 2. Mild circumferential wall thickening within the bladder with mild distention. 3. Postsurgical changes rectosigmoid junction. 4. Small fat containing abdominal wall hernias. Jai Queen MD Objective Remarks GENERAL: Obese critically ill-appearing female , sedated and intubated. SKIN: Warm and dry. HEAD: Atraumatic. Normocephalic. EYES: Pupils equal and round. No scleral icterus. No injection or drainage. ENT: No nasal bleeding or discharge. Mucous membranes pink and moist. NECK: Trachea midline. No JVD. CARDIOVASCULAR: Irregularly irregular rhythm. RESPIRATORY: Mechanical ventilation. Clear to auscultation. Breath sounds equal bilaterally. GASTROINTESTINAL: Abdomen soft, protuberant non-tender, nondistended. No guarding. MUSCULOSKELETAL: Extremities without clubbing, cyanosis, or edema. No obvious deformities. NEUROLOGICAL: Sedated, orally intubated on mechanical ventilation, moves all 4 extremities on lightening sedation. Procedures 03/16- Renogram cancelled . Renal US performed. 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 daily CPAP trials. Bronchodilators every 6 hours scheduled and every [address] angiogram -pulmonary hypertension, no PE, enlarged precarinal and subcarinal lymphadenopathy 03/17- CXR -consolidations B/L lobes worsened Cardiovascular: A. fib RVR Hypertension Patient arrived on Cardizem infusion-heart rate 130's, discontinued for MAP less than 60 Patient's home med amiodarone 200 mg daily increased to 400 mg twice a day. Labetalol when necessary for hypertension. Off pressors currently. Last echo 01/2015- ejection fraction 55-60%. No RWMA. PAP 35 mmHg, TV mild regurg ,MV mild regurg ECHO 03/16-EF 55- 60%. No RWMA, severe mitral valve annular calcification. Moderate mitral stenosis. Trace to mild MR, moderate TR, PAS P 55.2, trivial pulmonary valve regurgitation EPS- Dr. Lubin consulted. May need cardioversion with anticoagulation/JOSE - will defer to Dr. Lubin. Ordered Cardizem 20 mg IV bolus followed by Cardizem drip for rate control for A. fib with RVR on 03/21. Renal: Bilateral hydronephrosis-resolved Pyelonephrosis Acute kidney injury most likely secondary to septic shock Elevated creatinine Insert and maintain Gallo catheter 03/14-CT of the abdomen and pelvis-bilateral hydronephrosis, pyelonephrosis, perinephric stranding 03/16 renal ultrasound-no hydronephrosis Sodium bicarbonate infusion 50 cc/hour -- Strict I/Os, monitor and replete electrolytes, follow BUN/creatinine. FEN/GI: History of colon cancer status post chemotherapy Abdominal hernia NGT -Advance tube feeds with Glucerna 1.5 @ 30cc/hr with goal of 60cc/hr. Bowel regimen Heme/ID: Septic shock Community-acquired multilobar pneumonia Lactic acidemia Bandemia-resolved Blood cultures Klebsiella Urine culture Klebsiella Follow-up sputum culture Streptococcal and legionella antigens negative ID consulted - Dr. Hansen Empiric antibiotics include vancomycin, Zosyn and patient received 1 dose of Rocephin in the ED Heme- Onc consulted regarding carinal adenopathy lymphadenopathy, patient is S/ P completion of chemotherapy 06/2016 Endocrine: Diabetes mellitus Hypothyroidism High-dose insulin medication regimen Continue Levothyroxine 50 mcgs/day Obtain thyroid panel Glucose monitoring per ICU protocol -- SSI Prophylaxis: GI Prophylaxis famotidine BID DVT Prophylaxis -- SCDs Heparin 5000u BID Lines: Port right chest, peripheral IVs 2, left radial A-line Dispo: Discussed with [employer]ENDANT, discussed with Dr. Sexton. Discussed current clinical status and plan of care with patient's at bedside and he voiced understanding and was agreeable. This patient remains critically ill with one or more organ systems which are or may become a threat to life. I have spent in excess of 30 minutes discontinuously in the care and management of this patient. This time is exclusive of procedures, and includes, but is not limited to, evaluation of the patient, review of the medical record, discussions with family, consultants, nursing staff, or respiratory therapy, and documentation in the medical record. Fernando Srinivasan MD Mar 21, 2017 08:44
[2017-03-21] MEDS: AMIODARONE 200 MG TAB PO SCH ×2 (08:46→21:04)
[2017-03-21] MEDS: FLUoxetine HCL LIQUID 20 MG/5 ML CUP PO SCH (08:46)
[2017-03-21] MEDS: PRAVASTATIN SOD 40 MG TAB PO SCH (08:46)
[2017-03-21] MEDS: ARTIFICIAL TEARS OPTH SOLN 15 ML BTL EACH EYE SCH ×3 (08:47→16:15)
[2017-03-21] MEDS: INSULIN DETEMIR 100 UNITS/ML VIAL SQ SCH ×2 (08:47→21:05)
[2017-03-21] MEDS: SODIUM CHLORIDE 0.9% FLUSH 10 ML FLUSH IV FLUSH SCH ×2 (08:47→21:03)
[2017-03-21] MEDS: BUMETANIDE INJ 1 MG/4 ML VIAL IV PUSH SCH (09:00)
[2017-03-21] MEDS: DILTIAZEM INJ 125 MG in SODIUM CHLORIDE 0.9% INJ 100 ML IV PRN ×2 (09:16→17:53)
--- NOTE | 2017-03-21 10:26 | HHI.FPPN ---
Subjective Remarks Patient seen and examined this morning. Temperature 100.7, pulse is 114, blood pressure ranging between 133-153/73-88, pulse ox 100. She is elevated with 12 breaths per minute, PEEP 5, and FiO2 of 40. Cardizem drip is being started to help with rate control. White blood cell count continues to elevate today at 16.4, ID is on board and the recommendations for antibiotics are appreciated. (Sumit Flor MD, R3) Objective Vitals Vital Signs Date Time Temp Pulse Resp B/P (MAP) Pulse Ox O2 Delivery O2 Flow Rate FiO2 03/21/17 09:16 122 133/73 03/21/17 08:37 124 133/73 03/21/17 08:00 100.7 122 12 136/82 (100) 100 03/21/17 07:09 91 40 03/21/17 06:00 124 03/21/17 06:00 153/88 (109) 149/86 (107) 03/21/17 04:21 96 40 03/21/17 04:00 99.3 113 12 140/63 (88) 99 143/72 (95) 03/21/17 04:00 113 03/21/17 04:00 40 03/21/17 02:00 116 03/21/17 00:13 98 40 03/21/17 00:00 40 03/21/17 00:00 114 03/21/17 00:00 99.3 114 12 104/63 (77) 95 127/70 (89) 03/20/17 22:00 114 03/20/17 20:00 110 03/20/17 20:00 40 03/20/17 20:00 97.7 110 13 120/59 (79) 97 138/71 (93) 03/20/17 19:35 98 40 03/20/17 18:25 91 03/20/17 18:00 118 153/80 (104) 160/82 (108) 03/20/17 16:44 35 03/20/17 16:44 96 03/20/17 16:00 106 18 130/72 (91) 98 148/76 (100) 03/20/17 14:18 97 35 03/20/17 14:00 91 03/20/17 13:00 98.1 102 15 111/63 (79) 98 130/67 (88) 03/20/17 12:00 35 03/20/17 12:00 96 03/20/17 12:00 99 14 107/66 (80) 96 123/66 (85) 03/20/17 11:55 95 35 I/O 03/20/17 03/20/17 03/20/17 03/21/17 03/21/17 03/21/17 07:00 15:00 23:00 07:00 15:00 23:00 Intake Total 667 ml 560 ml 194 ml 56 ml Output Total 2201 ml 1200 ml 1800 ml Balance -1534 ml -640 ml -1606 ml 56 ml Intake Oral 0 ml 0 ml IV Total 100 ml 194 ml 56 ml Tube Feeding 667 ml 460 ml Output Urine Total 2200 ml 1200 ml 1800 ml Stool Total 1 ml # Bowel Movements 1 2 (Sumit Flor MD, R3) Result Diagram: 03/21/17 0545 03/21/17 0545 Objective Remarks GENERAL: Well-nourished, well-developed obese female. Sedated and intubated. SKIN: Warm and dry. HEAD: Normocephalic. EYES: No scleral icterus. No injection or drainage. NECK: Supple, trachea midline. No JVD or lymphadenopathy. CARDIOVASCULAR: Irregularly irregular rate and rhythm without murmurs, gallops, or rubs. RESPIRATORY: Breath sounds equal bilaterally. No accessory muscle use. GASTROINTESTINAL: Abdomen soft, non-tender, distended. Bowel sounds present. MUSCULOSKELETAL: No cyanosis, 2+ pitting edema in lower extremities bilaterally (Sumit Flor MD, R3) Date of Insertion: Mar 15, 2017 (Sumit Flor MD, R3) A/P Assessment and Plan Patient is a 71 year old female with a PMH significant for colon cancer s/p chemotherapy, atrial fibrillation on Eliquis, HTN, DM type 2, and MDD who presented to the ED with abdominal pain, nausea and vomiting and was found to have severe sepsis secondary to PNA and pyelonephritis in addition to atrial fibrillation with RVR. She rapidly decompensated into respiratory failure and was intubated on 03/15, now in critical condition with sepsis. Discharge Planning Unclear timetable, patient in critical condition. sdw Dr. Greenberg (Sumit Flor MD, R3) Attending Attestation Patient seen and examined. Case reviewed and discussed with the resident team. Agree with plan of care as discussed with me and documented in the resident note. Spoke to her . we discussed her respiratory state as well as her a fib. he reported she had a heart rate of 140s and a BP of 200 systolic earlier this am. Per note Cardiology may need to cardiovert. (Lydia Greenberg MD) Problem List: (1) Sepsis due to Gram-negative organism with septic shock ICD Codes: A41.50 - Gram-negative sepsis, unspecified; R65.21 - Severe sepsis with septic shock Status: Acute Plan: Neurologic: AMS-toxic encephalopathy secondary to sepsis History of TIA x 2 Major Depressive Disorder Neurochecks per ICU protocol Patient intubated for airway protection continues on propofol and fentanyl infusions for ventilator synchrony Ammonia elevated at 67 on admission, 44 yesterday, continue lactulose 03/15 CT brain-no intracranial abnormality Neurology consulted- Dr. Huff to consider MRI brain within the next few days Daily sedation vacation Respiratory: Acute Hypoxemic respiratory failure Pulmonary hypertension Carinal adenopathy 03/15 Patient intubated emergently FiO2 50, PEEP 10 today Maintain O2 sat greater than 92% Ventilator bundle Duonebs Q6H scheduled and Q2H when necessary 03/15 CT angiogram -pulmonary hypertension, no PE, enlarged precarinal and subcarinal lymphadenopathy 03/16 CXR shows persisting consolidation left mid and lower lung and improving infiltrates in the lower right lung 03/18 CXR: Stable basilar airspace disease 03/20 CXR: Increase basilar airspace disease Concern for pneumonia, infectious disease on board and recommendations are appreciated Concern for worsening cardiac function resulting in backflow of fluid into lungs Pulmonary HTN not present on last echo in 2014, 03/16 Echo shows EF 55-60%, severe mitral annular calcification with moderate mitral valve stenosis, mildly dilated right atrium, mild to mod aortic valve stenosis, pulmonary arterial pressure 55.2 Cardiovascular: A. fib RVR Hypertension Patient initially on Cardizem infusion-heart rate now in 90's, discontinued for MAP < 60 Amiodarone 400mg PO BID. labetalol when necessary for hypertension. Off pressors currently Cardizem drip started for improving control Last echo 02/05- ejection fraction 55-60%. No RWMA. APA 35 mmHg, TV mild regurg, MV mild regurg 03/16 Echo results as above EPS- Dr. Lubin consulted Renal: Bilateral hydronephrosis Pyelonephrosis Continue Gallo catheter, output 470ml in past 24 hours 03/14-CT of the abdomen and pelvis-bilateral hydronephrosis, pyelonephrosis, perinephric stranding -- Strict I/Os Urology consulted- 03/16 renal US shows resolution of hydronephrosis, urinary bladder decompressed Creatinine 1.36 today FEN/GI: History of colon cancer status post chemotherapy and colectomy Abdominal hernia Continue tube feeds NGT to LIWS Hypokalemia at 2.4, on ICU electrolyte protocol. Repeat BMP this afternoon Heme/ID: Septic Shock due to gram negative carmela Community-acquired multilobar pneumonia Pyelonephritis Lactic acidemia Bandemia 03/15 Blood cultures growing Klebsiella pneumoniae 03/15 urine culture growing Klebsiella pneumonia 03/16 sputum culture: No growth to date 2 days legionella and streptococcus antigens negative ID consulted - Dr. Hansen, treat with Levaquin 03/19: Urine culture: No growth to date 2 Heme- Onc consulted regarding carinal adenopathy lymphadenopathy, patient is S/ P completion of chemotherapy 09/2016. Repeat CT chest in 1-2 months to evaluate mediastinal lymph nodes as outpatient Trend lactate level 6.4->4.2->4.9->3.0->1.5->2.2->2.3 Endocrine: Diabetes mellitus Hypothyroidism High-dose SSI Long-acting Levemir at 15 units twice a day, will monitor for hypoglycemia Continue Levothyroxine 50 mcgs/day Prophylaxis: GI Prophylaxis with famotidine BID DVT Prophylaxis with SCDs and Heparin 5000u Q8H Lines: Port right chest, peripheral IVs 2, left radial A-line (2) Pyelonephritis ICD Codes: N12 - Tubulo-interstitial nephritis, not specified as acute or chronic (3) PNA (pneumonia) ICD Codes: J18.9 - Pneumonia, unspecified organism (4) Atrial fibrillation with rapid ventricular response ICD Codes: I48.91 - Atrial fibrillation with rapid ventricular response Status: Acute (5) Diabetes mellitus, type II ICD Codes: E11.9 - Type 2 diabetes mellitus Status: Chronic (6) Hypertension ICD Codes: I10 - Essential (primary) hypertension Status: Chronic (7) Hypothyroidism ICD Codes: E03.9 - Hypothyroidism Status: Acute (8) Nutrition, metabolism, and development symptoms ICD Codes: R63.8 - Symptoms concerning nutrition, metabolism, and development Status: Acute (Sumit Flor MD, R3) Problem Qualifiers (1) PNA (pneumonia): Qualified Codes: J18.9 - Pneumonia, unspecified organism (2) Diabetes mellitus, type II: Qualified Codes: E11.9 - Type 2 diabetes mellitus without complications; Z79.4 - penitentiary (current) use of insulin (3) Hypertension: Qualified Codes: I10 - Essential (primary) hypertension (4) Hypothyroidism: Qualified Codes: E03.9 - Hypothyroidism, unspecified Sumit Flor MD, R3 Mar 21, 2017 10:26 Lydia Greenberg MD Mar 21, 2017 11:21
--- NOTE | 2017-03-21 10:36 | RADRPT ---
EXAM DATE/TIME: 03/21/2017 09:45 [facility] COMPARISON: CHEST SINGLE AP, March 20, 2017, 4:57. INDICATIONS : Pneumonia. MEDICAL HISTORY : None. SURGICAL HISTORY : None. ENCOUNTER: Subsequent ACUITY: 1 week PAIN SCORE: Non-responsive. LOCATION: chest FINDINGS: The heart is enlarged. There is consolidation of the left lower lobe. There are diffuse chronic inter stitial changes throughout both lungs. [id number] in good position. The ET tube is somewhat high i t is 7 cm above the level of the angelica. The bony structures are intact. CONCLUSION: 1. Consolidation of the left lower lobe. 2. Diffuse chronic interstitial changes mildly improved compared to previous. 3. The ET tube is somewhat high approximately 7 cm above the angelica. Quincy Resendez MD on March 21, 2017 at 10:34 Board Certified Radiologist. This report was verified electronically.
[2017-03-21] MEDS: ACETAMINOPHEN 325 MG TAB PO PRN ×2 (10:49→16:23)
[2017-03-21] MEDS: IBUPROFEN 600 MG TAB PO PRN (12:34)
--- NOTE | 2017-03-21 14:29 | PD.ONC.PN ---
Subjective Subjective Remarks Sedated and intubated. concern that pt is tachycardic. Objective Data Date Time Temp Pulse Resp B/P (MAP) Pulse Ox O2 Delivery O2 Flow Rate FiO2 03/21/17 14:00 120 03/21/17 13:26 94 40 03/21/17 13:00 117 03/21/17 12:00 118 03/21/17 12:00 40 03/21/17 12:00 101.1 118 12 128/65 (86) 92 122/64 (83) 03/21/17 11:45 93 40 03/21/17 11:00 118 03/21/17 10:00 127 03/21/17 09:16 122 133/73 03/21/17 09:00 120 03/21/17 08:37 124 133/73 03/21/17 08:00 130 03/21/17 08:00 40 03/21/17 08:00 100.7 122 12 136/82 (100) 100 03/21/17 07:09 91 40 03/21/17 07:00 127 03/21/17 06:00 124 03/21/17 06:00 153/88 (109) 149/86 (107) 03/21/17 04:21 96 40 03/21/17 04:00 99.3 113 12 140/63 (88) 99 143/72 (95) 03/21/17 04:00 113 03/21/17 04:00 40 03/21/17 02:00 116 03/21/17 00:13 98 40 03/21/17 00:00 40 03/21/17 00:00 114 03/21/17 00:00 99.3 114 12 104/63 (77) 95 127/70 (89) 03/20/17 22:00 114 03/20/17 20:00 110 03/20/17 20:00 40 03/20/17 20:00 97.7 110 13 120/59 (79) 97 138/71 (93) 03/20/17 19:35 98 40 03/20/17 18:25 91 03/20/17 18:00 118 153/80 (104) 160/82 (108) 03/20/17 16:44 35 03/20/17 16:44 96 03/20/17 16:00 106 18 130/72 (91) 98 148/76 (100) 03/21/17 03/21/17 03/21/17 07:00 15:00 23:00 Intake Total 194 ml 56 ml Output Total 1800 ml Balance -1606 ml 56 ml Result Diagram: 03/21/17 0545 03/21/17 0545 Laboratory Results Laboratory Tests Test 03/20/17 17:15 03/21/17 05:45 Blood Urea Nitrogen 48 MG/DL 48 MG/DL Creatinine 1.27 MG/DL 1.37 MG/DL Random Glucose 254 MG/DL 309 MG/DL Calcium Level 8.0 MG/DL 8.1 MG/DL Sodium Level 150 MEQ/L 151 MEQ/L Potassium Level 4.5 MEQ/L 4.5 MEQ/L Chloride Level 112 MEQ/L 111 MEQ/L Carbon Dioxide Level 34.6 MEQ/L 34.8 MEQ/L Anion Gap 3 MEQ/L 5 MEQ/L Estimat Glomerular Filtration Rate 42 ML/MIN 38 ML/MIN White Blood Count 16.4 TH/MM3 Red Blood Count 3.94 MIL/MM3 Hemoglobin 11.5 GM/DL Hematocrit 35.7 % Mean Corpuscular Volume 90.5 FL Mean Corpuscular Hemoglobin 29.2 PG Mean Corpuscular Hemoglobin Concent 32.3 % Red Cell Distribution Width 16.1 % Platelet Count 151 TH/MM3 Mean Platelet Volume 9.6 FL Neutrophils (%) (Auto) 80.5 % Lymphocytes (%) (Auto) 5.5 % Monocytes (%) (Auto) 13.6 % Eosinophils (%) (Auto) 0.1 % Basophils (%) (Auto) 0.3 % Neutrophils # (Auto) 13.2 TH/MM3 Lymphocytes # (Auto) 0.9 TH/MM3 Monocytes # (Auto) 2.2 TH/MM3 Eosinophils # (Auto) 0.0 TH/MM3 Basophils # (Auto) 0.0 TH/MM3 CBC Comment AUTO DIFF Differential Total Cells Counted 100 Neutrophils % (Manual) 66 % Band Neutrophils % 13 % Lymphocytes % 4 % Monocytes % 12 % Neutrophils # (Manual) 13.8 TH/MM3 Metamyelocytes 3 % Myelocytes 2 % Nucleated Red Blood Cells 1 /100 WBC Differential Comment FINAL DIFF MANUAL Platelet Estimate NORMAL Platelet Morphology Comment NORMAL Stomatocytes 1+ Total Protein 6.2 GM/DL Albumin 2.3 GM/DL Alkaline Phosphatase 127 U/L Aspartate Amino Transf (AST/SGOT) 32 U/L Alanine Aminotransferase (ALT/SGPT) 18 U/L Total Bilirubin 0.6 MG/DL Lactic Acid Level 1.4 mmol/L Culture Results Microbiology Date/Time Source Procedure Growth Status 03/19/17 09:30 Urine Catheterized Urine Urine Culture - Final NO GROWTH IN 48 HOURS. Complete Imaging Studies Last 24 hours Impressions Chest X-Ray 03/21/17 0000 Signed Impressions: Service Date/Time: February 09:45 - CONCLUSION: 1. Consolidation of the left lower lobe. 2. Diffuse chronic interstitial changes mildly improved compared to previous. 3. The ET tube is somewhat high approximately 7 cm above the angelica. Quincy Resendez MD Administered Medications Medications (Trade) Dose Ordered Sig/Chiqui Route PRN Reason Start Time Stop Time Status Last Admin Dose Admin Acetaminophen (Tylenol) 650 mg Q4H PRN PO TEMPERATURE > 101 F 03/15/17 10:15 03/21/17 10:49 Ibuprofen (Motrin) 600 mg Q6H PRN PO PAIN 1-10 AND/OR FEVER >101F 03/15/17 10:15 03/21/17 12:34 Levothyroxine Sodium (Synthroid) 50 mcg DAILY@0600 PO 03/16/17 06:00 03/21/17 06:27 Pravastatin Sodium (Pravachol) 40 mg DAILY PO 03/16/17 09:00 03/21/17 08:46 Sodium Chloride (NS Flush) 2 ml BID IV FLUSH 03/15/17 21:00 03/21/17 08:47 Artificial Tears (Tears Naturale Opth Soln) 1 drop TID EACH EYE 03/15/17 18:00 03/20/17 17:18 Albuterol/ Ipratropium (Duoneb Neb) 1 ampule Q2HR NEB PRN INH WHEEZING 03/15/17 14:30 03/19/17 22:26 Miscellaneous Information 1 Q361D XX 03/15/17 14:30 03/15/17 14:30 Chlorhexidine Gluconate (Chlorhexidine 2% Cloth) Taper DAILY@04 TOP 03/16/17 04:00 03/12/18 03:59 03/21/17 04:00 Senna/Docusate Sodium (Elsa-Colace) 1 tab BID PO 03/15/17 21:00 03/20/17 21:34 Insulin Aspart (NovoLOG SUPPLEMENTAL SCALE) 1 ACHS SLIDING SCALE SQ 03/15/17 17:00 03/21/17 12:00 Heparin Sodium (Porcine) (Heparin Inj) 5,000 units Q8HR SQ 03/15/17 22:00 03/21/17 06:27 Lactulose (Lactulose Liq) 30 ml DAILY NG 03/15/17 16:30 03/19/17 08:06 Fentanyl Citrate 250 ml @ 5 mls/hr TITRATE PRN IV Sedation 03/15/17 16:45 03/21/17 07:41 Levofloxacin/ Dextrose 150 ml @ 100 mls/hr Q48H IV 03/15/17 18:00 03/19/17 17:44 Midazolam HCl 100 ml @ 2 mls/hr TITRATE PRN IV SEDATION 03/15/17 18:00 03/17/17 20:21 Vasopressin 40 units/Dextrose 100 ml @ 6 mls/hr [id number] IV 03/15/17 19:17 03/17/17 05:48 Norepinephrine Bitartrate 250 ml @ 7.5 mls/hr TITRATE PRN IV Blood pressure management 03/15/17 22:45 03/16/17 23:51 Potassium Chloride 100 ml @ 50 mls/hr Q2H PRN IV For Potassium 2.8 - 3.2 mEq/L 03/16/17 09:45 03/20/17 08:12 Potassium Chloride 100 ml @ 50 mls/hr Q2H PRN IV For Potassium 3.3 - 3.5 mEq/L 03/16/17 09:45 03/18/17 15:46 Magnesium Sulfate 2 gm/Sodium Chloride 100 ml @ 50 mls/hr UNSCH PRN IV For Magnesium 1.2 - 1.6 mg/dL 03/16/17 09:45 03/16/17 11:07 Amiodarone HCl (Cordarone) 400 mg BID PO 03/16/17 21:00 03/21/17 08:46 Famotidine (Pepcid Inj) 10 mg Q12HR IV PUSH 03/17/17 09:00 03/21/17 08:42 Labetalol HCl (Trandate Inj) 20 mg Q2H PRN IV FOR SBP > 160 MMHG 03/19/17 12:00 03/19/17 13:36 Fluoxetine HCl (PROzac LIQ) 20 mg DAILY PO 03/20/17 11:00 03/21/17 08:46 Hydrocortisone Sodium Succinate (SoluCORTEF INJ) 50 mg Q8H IV PUSH 03/20/17 18:00 03/21/17 08:45 Diltiazem HCl 125 mg/Sodium Chloride 125 ml @ 5 mls/hr TITRATE PRN IV Tachycardia 03/21/17 07:45 03/21/17 09:16 Insulin Detemir (Levemir Inj) 15 units Q12HR SQ 03/21/17 09:00 03/21/17 08:47 Objective Remarks GENERAL: Sedated SKIN: Warm and dry. HEAD: Normocephalic. EYES: No scleral icterus. No injection or drainage. NECK: Supple, trachea midline. No JVD or lymphadenopathy. LYMPHATIC: No adenopathy. CARDIOVASCULAR: Regular rate and rhythm without murmurs. Tachycardia RESPIRATORY: On vent GASTROINTESTINAL: Abdomen soft, non-tender, nondistended. EXTREMITIES: No cyanosis, or edema. MUSCULOSKELETAL: Adequate muscle tone. NEUROLOGICAL: Sedated Assessment/Plan Assessment 1. Sigmoid colon adenocarcinoma. She had a large mass in the sigmoid colon and biopsy showed moderately differentiated adenocarcinoma. She underwent resection in February of 2016 and final pathology showed poorly differentiated adenocarcinoma with mucinous features measuring 5.5 cm arising in the villous adenoma. There was large tumor deposit 6 cm in size within the pericolonic soft tissue. There was metastatic adenocarcinoma involving 11 out of 12 lymph nodes. Pathologic stage T2 N2b M0. She received adjuvant Xeloda in September of 2016. Recent evaluation did not show any evidence of recurrent disease. 2. Nonspecific mediastinal lymph node. CT of the chest showed prominent lymph nodes in the subcarinal and precarinal areas. There is no other metastatic disease noted on the CT of the chest, abdomen and pelvis. The patient has pneumonia and this mediastinal adenopathy is likely reactive. Discussed findings with her . 3. Septic shock. CT of the abdomen showed bilateral hydronephrosis and sign of pyelonephritis. CT of the chest also showed possible pneumonia. She is currently on antibiotic per infectious disease. 4. Respiratory failure due to sepsis and pneumonia. The patient is still on vent. Plan PLAN: 1. Continue treatment of sepsis per medical device engineer and infectious disease. 2. No oncologic intervention planned at this time. 3. CXR 4. Discussed with her . Sly Candelario MD Mar 21, 2017 14:29
[2017-03-21] MEDS: LABETALOL HCL 100 MG/20 ML VIAL IV PRN ×2 (16:23→22:28)
[2017-03-21] MEDS: LEVOFLOXACIN 750 MG PREMIX INJ 150 ML IV SCH (16:25)
--- NOTE | 2017-03-21 16:25 | HHI.IDPN ---
Subjective Subjective Remarks Patient is a 71-year-old female, admitted to the hospital for evaluation of abdominal pain, nausea and vomiting. She apparently has been complaining of left-sided abdominal pain goes down to the lower abdomen. She also started having nausea and vomiting. There was mention of some dysuria, urgency and frequency in the last 3-4 days. Patient also apparently has been having problem with shortness of breath over the last 3 weeks, and generalized weakness and easy fatigability. There was no mention of any fever or chills or sweats. On the morning of admission, the patient was noted to be confused, and was having more shortness of breath. There is no mention of any cough or congestion, or any complaint of any chest pain. Patient was brought into the hospital for further evaluation and treatment. Patient has had imaging studies done. CTA did not show any pulmonary embolism. CT of the abdomen and pelvis showing some mild bilateral hydronephrosis and some perinephric stranding. Her UA has pyuria. 2 blood cultures on admission are now reported as growing gram-negative carmela. Her WBC is normal. Creatinine is 1.32. Patient went into significant respiratory distress, and ended up getting intubated. She has received Zosyn, and vancomycin. Neurology has been consult. Infectious disease consultation requested to evaluate the patient with severe sepsis. Notes reviewed D/W RN Temps higher Did not [id number] CPAP Off all pressors Monitor shows atrial fib rate high Repeat UA better, UC negative WBC higher Creatinine slightly higher Has whitehead thick secretions from ET Antibiotics Levaquin Lines Port Past Medical History Atrial fibrillation (ablation x 2 in 2013) Eliquis stopped on 12/2015 for GI bleed Colon Cancer (sigmoid colon adenocarcinoma) Compression Fracture (12/2015 L3) Depression DM Type 2 Hyperlipidemia Hypertension Hypothyroidism TIA x 2 in 2014 Past Surgical History Abdominal surgery- exploratory laparotomy Sigmoid colectomy, low anterior resection, repair of ventral hernia, 2016 [id number] placement Previous cardiac ablation for atrial fibrillation Appendectomy Section x 2 EGD 12/2015 Flexible sigmoidoscopy 12/2015 Hernia repair Colonoscopy 2016 Allergies: Coded Allergies: codeine (Unverified Allergy, Severe, Nausea/Vomiting, 03/15/17) Uncoded Allergies: METAL (Allergy, Intermediate, hives, 03/08/16) SURGICAL STEEL (Allergy, Intermediate, hives, 03/08/16) Objective . Vital Signs Date Time Temp Pulse Resp B/P (MAP) Pulse Ox O2 Delivery O2 Flow Rate FiO2 03/21/17 16:00 100.3 120 16 161/79 (106) 91 159/77 (104) 03/21/17 16:00 40 03/21/17 16:00 120 03/21/17 15:00 123 03/21/17 14:00 120 03/21/17 13:26 94 40 03/21/17 13:00 117 03/21/17 12:00 118 03/21/17 12:00 40 03/21/17 12:00 101.1 118 12 128/65 (86) 92 122/64 (83) 03/21/17 11:45 93 40 03/21/17 11:00 118 03/21/17 10:00 127 03/21/17 09:16 122 133/73 03/21/17 09:00 120 03/21/17 08:37 124 133/73 03/21/17 08:00 130 03/21/17 08:00 40 03/21/17 08:00 100.7 122 12 136/82 (100) 100 03/21/17 07:09 91 40 03/21/17 07:00 127 03/21/17 06:00 124 03/21/17 06:00 153/88 (109) 149/86 (107) 03/21/17 04:21 96 40 03/21/17 04:00 99.3 113 12 140/63 (88) 99 143/72 (95) 03/21/17 04:00 113 03/21/17 04:00 40 03/21/17 02:00 116 03/21/17 00:13 98 40 03/21/17 00:00 40 03/21/17 00:00 114 03/21/17 00:00 99.3 114 12 104/63 (77) 95 127/70 (89) 03/20/17 22:00 114 03/20/17 20:00 110 03/20/17 20:00 40 03/20/17 20:00 97.7 110 13 120/59 (79) 97 138/71 (93) 03/20/17 19:35 98 40 03/20/17 18:25 91 03/20/17 18:00 118 153/80 (104) 160/82 (108) 03/20/17 16:44 35 03/20/17 16:44 96 03/21/17 03/21/17 03/22/17 15:00 23:00 07:00 Intake Total 56 ml Balance 56 ml IV Total 56 ml . Laboratory Tests Test 03/20/17 06:00 03/21/17 05:45 White Blood Count 14.1 TH/MM3 16.4 TH/MM3 Red Blood Count 4.06 MIL/MM3 3.94 MIL/MM3 Hemoglobin 11.9 GM/DL 11.5 GM/DL Hematocrit 36.5 % 35.7 % Mean Corpuscular Volume 90.0 FL 90.5 FL Mean Corpuscular Hemoglobin 29.3 PG 29.2 PG Mean Corpuscular Hemoglobin Concent 32.6 % 32.3 % Red Cell Distribution Width 15.5 % 16.1 % Platelet Count 134 TH/MM3 151 TH/MM3 Mean Platelet Volume 10.2 FL 9.6 FL Neutrophils (%) (Auto) 80.5 % Lymphocytes (%) (Auto) 5.5 % Monocytes (%) (Auto) 13.6 % Eosinophils (%) (Auto) 0.1 % Basophils (%) (Auto) 0.3 % Neutrophils # (Auto) 13.2 TH/MM3 Lymphocytes # (Auto) 0.9 TH/MM3 Monocytes # (Auto) 2.2 TH/MM3 Eosinophils # (Auto) 0.0 TH/MM3 Basophils # (Auto) 0.0 TH/MM3 CBC Comment AUTO DIFF Differential Total Cells Counted 100 Neutrophils % (Manual) 66 % Band Neutrophils % 13 % Lymphocytes % 4 % Monocytes % 12 % Neutrophils # (Manual) 13.8 TH/MM3 Metamyelocytes 3 % Myelocytes 2 % Nucleated Red Blood Cells 1 /100 WBC Differential Comment FINAL DIFF MANUAL Platelet Estimate NORMAL Platelet Morphology Comment NORMAL Stomatocytes 1+ Laboratory Tests Test 03/20/17 06:00 03/20/17 17:15 03/21/17 05:45 Blood Urea Nitrogen 50 MG/DL 48 MG/DL 48 MG/DL Creatinine 1.36 MG/DL 1.27 MG/DL 1.37 MG/DL Random Glucose 237 MG/DL 254 MG/DL 309 MG/DL Calcium Level 8.0 MG/DL 8.0 MG/DL 8.1 MG/DL Sodium Level 148 MEQ/L 150 MEQ/L 151 MEQ/L Potassium Level 2.4 MEQ/L 4.5 MEQ/L 4.5 MEQ/L Chloride Level 107 MEQ/L 112 MEQ/L 111 MEQ/L Carbon Dioxide Level 31.7 MEQ/L 34.6 MEQ/L 34.8 MEQ/L Anion Gap 9 MEQ/L 3 MEQ/L 5 MEQ/L Estimat Glomerular Filtration Rate 38 ML/MIN 42 ML/MIN 38 ML/MIN Lactic Acid Level 2.3 mmol/L 1.4 mmol/L B-Type Natriuretic Peptide 206 PG/ML Total Protein 6.2 GM/DL Albumin 2.3 GM/DL Alkaline Phosphatase 127 U/L Aspartate Amino Transf (AST/SGOT) 32 U/L Alanine Aminotransferase (ALT/SGPT) 18 U/L Total Bilirubin 0.6 MG/DL Microbiology Date/Time Source Procedure Growth Status 03/19/17 09:30 Urine Catheterized Urine Urine Culture - Final NO GROWTH IN 48 HOURS. Complete Imaging Chest X-Ray 03/21/17 0000 Signed Impressions: Service Date/Time: February 09:45 - CONCLUSION: 1. Consolidation of the left lower lobe. 2. Diffuse chronic interstitial changes mildly improved compared to previous. 3. The ET tube is somewhat high approximately 7 cm above the angelica. Quincy Resendez MD Chest X-Ray 03/20/17 0600 Signed Impressions: Service Date/Time: Monday, March 20, 2017 04:57 - CONCLUSION: 1. Endotracheal tube and nasogastric tube in good position. Basilar airspace disease increased from March 18. Samuel Lin MD Chest X-Ray 03/18/17 0600 Signed Impressions: Service Date/Time: Saturday, March 18, 2017 03:45 - CONCLUSION: 1. Apparatus in good position. Relatively stable basilar airspace disease. Samule Lin MD Chest X-Ray 03/17/17 0000 Signed Impressions: Service Date/Time: Friday, March 17, 2017 06:22 - CONCLUSION: Persistent infiltrates consolidation left lower lung and patchy infiltrates in the central right lung. Antonio Voss MD Chest X-Ray 03/16/17 0600 Signed Impressions: Service Date/Time: Thursday, March 16, 2017 04:58 - CONCLUSION: Persisting consolidation left mid and lower lung and improving infiltrates in the lower right lung. Antonio Voss MD Renal Ultrasound 03/16/17 0000 Signed Impressions: Service Date/Time: Thursday, March 16, 2017 11:27 - CONCLUSION: The hydronephrosis has resolved. Urinary bladder is decompressed.. Jose Flores MD CT Angiography 03/15/17 0520 Signed Impressions: Service Date/Time: Wednesday, March 15, 2017 07:46 - CONCLUSION: 1. No evidence for pulmonary embolism. 2. Cardiomegaly with enlargement of pulmonary arteries likely from pulmonary arterial hypertension. 3. Bibasilar patchy densities could be atelectasis or infiltrate. 4. Mosaic attenuation which can be seen with small airway disease. 5. Enlarged precarinal and subcarinal adenopathy. Jai Queen MD Head CT 03/15/17 0000 Signed Impressions: Service Date/Time: Wednesday, March 15, 2017 07:47 - CONCLUSION: No acute intracranial disease. Jai Queen MD Abdomen/Pelvis CT 03/15/17 0000 Signed Impressions: Service Date/Time: Wednesday, March 15, 2017 07:51 - CONCLUSION: 1. Bilateral hydronephrosis with extensive stranding in the perinephric regions greater on the left. 2. Mild circumferential wall thickening within the bladder with mild distention. 3. Postsurgical changes rectosigmoid junction. 4. Small fat containing abdominal wall hernias. Jai Queen MD Physical Exam GENERAL: Sedated on the vent, looks comfortable on the vent SKIN: Warm and dry. No generalized rash HEAD: Atraumatic. Normocephalic. No temporal wasting, or tenderness. EYES: Paradis conjunctiva. No petechia or hemorrhage. Pupils equal, round and reactive to light. No scleral icterus. No injection or drainage. EARS, NOSE AND THROAT: Nose without bleeding or purulent nasal discharge. She is orally intubated. NECK: Trachea midline. Supple and no meningeal signs CARDIOVASCULAR: Irregular rate and rhythm. No murmurs, rubs or gallops heard RESPIRATORY: Coarse breath sounds. Decreased at the bases. ABDOMEN: Less distended, no reaction to palpation. Bowel sounds present and hypoactive. No guarding. No rebound. No organomegaly. EXTREMITIES: No clubbing, cyanosis. Edema both hands. Well perfused and warm. NEUROLOGICAL: Sedated, no Babinski, no ankle clonus PSYCHIATRIC: Unable to assess LINE: No evidence of infection - port R upper chest : Gallo in place, urine better Assessment & Plan Remarks IMPRESSION Severe sepsis, Klebsiella urosepsis, - off pressors - has pyelonephritis (has perinephric stranding on CT and mild hydro, no stone seen, no colitis on CT, has complaints) Respiratory failure, bilateral infiltrates, ?PNA - prob multifactorial: Fluid, inflammatory, ?PNA - sputum C/S negative Known Colon CA, with (+) LN, undergoing chemo - S/P sigmoid colectomy, low anterior resection Renal insufficiency due to sepsis Atrial fib, chronic, previous ablation done and MS Leukocytosis, increasing Recurrent fevers, ?new PNA RECOMMENDATION Continue Levaquin 2 BC today Sputum G/S C/S Dose of Vanco, check level in AM Add Cefepime Follow C/S Follow temps Monitor progress Follow CBC Weaning as tolerated D/W RN Spoke with Rosaura York MD Mar 21, 2017 16:25
[2017-03-21] MEDS ORDERED: VANCOMYCIN INJ 1,500 MG in SODIUM CHLORID 0.9% 500 ML INJ 500 ML IV ONE (17:00)
[2017-03-21] MEDS: CEFEPIME INJ 1,000 MG in SODIUM CHLORIDE 0.9% INJ 100 ML IV SCH (17:00)
--- NOTE | 2017-03-21 18:29 | HHI.NPPN ---
Subjective History of Present Illness 71-year-old female with past medical history of colon cancer, diabetes mellitus, hypertension, hypothyroidism, history of TIA, history of chemotherapy for colon cancer, was admitted to the hospital with complaint of abdominal pain, nausea and vomiting. I was called to see the patient because of elevated creatinine. The patient did not have any previous history of renal disease. Her creatinine looking back it was 0.6 last month and she came with a creatinine 1.3 and has gone up to 1.8. Additional Remarks Patient remain and sedated, on the vent. has fever. Review of Systems General General Remarks Intubated and sedated. Objective Data Data 03/21/17 03/22/17 18:59 06:59 Intake Total 1952 ml Output Total 1725 ml Balance 227 ml IV Total 1074 ml Tube Feeding 578 ml Other 300 ml Output Urine Total 1725 ml # Bowel Movements 0 Vital Signs Date Time Temp Pulse Resp B/P (MAP) Pulse Ox O2 Delivery O2 Flow Rate FiO2 03/21/17 17:53 85 125/81 03/21/17 16:00 100.3 120 16 161/79 (106) 91 159/77 (104) 03/21/17 16:00 40 03/21/17 16:00 120 03/21/17 15:00 123 03/21/17 14:00 120 03/21/17 13:26 94 40 03/21/17 13:00 117 03/21/17 12:00 118 03/21/17 12:00 40 03/21/17 12:00 101.1 118 12 128/65 (86) 92 122/64 (83) 03/21/17 11:45 93 40 03/21/17 11:00 118 03/21/17 10:00 127 03/21/17 09:16 122 133/73 03/21/17 09:00 120 03/21/17 08:37 124 133/73 03/21/17 08:00 130 03/21/17 08:00 40 03/21/17 08:00 100.7 122 12 136/82 (100) 100 03/21/17 07:09 91 40 03/21/17 07:00 127 03/21/17 06:00 124 03/21/17 06:00 153/88 (109) 149/86 (107) 03/21/17 04:21 96 40 03/21/17 04:00 99.3 113 12 140/63 (88) 99 143/72 (95) 03/21/17 04:00 113 03/21/17 04:00 40 03/21/17 02:00 116 03/21/17 00:13 98 40 03/21/17 00:00 40 03/21/17 00:00 114 03/21/17 00:00 99.3 114 12 104/63 (77) 95 127/70 (89) 03/20/17 22:00 114 03/20/17 20:00 110 03/20/17 20:00 40 03/20/17 20:00 97.7 110 13 120/59 (79) 97 138/71 (93) 03/20/17 19:35 98 40 -: 03/21/17 0545 03/21/17 0545 Physical Exam General Appearance Remarks Intubated and sedated. Eyes Eye Exam: Pupils Equal Throat Throat Exam: Oral Mucosa Stafford & Moist Neck Neck Exam: Neck Supple, Trachea Midline Pulmonary Resp Exam: Rhonchi, Decreased Bases, Diminished Breath Sounds, Poor Inspiratory Effort Cardiology CV Exam: Regular, Tachycardia Gastrointestinal/Abdomen GI Exam: Soft, Non-Tender, Bowel Sounds Present, Non-Distended Extremeties Extremities Exam: Trace Edema Neurologic Neuro Exam: Sedated Assessment/Plan Assessment Summary: ASH/Acute Renal Failure, Hypotension Problem List: (1) Respiratory failure ICD Codes: J96.90 - Respiratory failure, unspecified, unspecified whether with hypoxia or hypercapnia (2) Acute kidney failure ICD Codes: N17.9 - Acute kidney failure, unspecified (3) Hypothyroidism ICD Codes: E03.9 - Hypothyroidism Status: Acute (4) Hypertension ICD Codes: I10 - Essential (primary) hypertension Status: Chronic (5) PNA (pneumonia) ICD Codes: J18.9 - Pneumonia, unspecified organism (6) Hyperlipidemia ICD Codes: E78.5 - Hyperlipidemia Status: Acute (7) Cancer, colon ICD Codes: C18.9 - Malignant neoplasm of colon, unspecified Status: Acute Plan Most likely has ASH due to ATN. Patient has been non oliguric. Creatinine is improving and now 1.3. K is now normal after replacement. Continue Bumex, has been non oliguric. Avoid Nephrotoxins. Continue antibiotics. Started on Vanco. and also on Cefepime. Continue Bumex, follow the urine out put and BMP. Problem Qualifiers (1) Hypothyroidism: Qualified Codes: E03.9 - Hypothyroidism, unspecified (2) Hypertension: Qualified Codes: I10 - Essential (primary) hypertension (3) PNA (pneumonia): Qualified Codes: J18.9 - Pneumonia, unspecified organism Aixa Figueroa MD Mar 21, 2017 18:29
--- NOTE | 2017-03-21 22:41 | HHI.PR ---
Subjective Remarks On mechanical ventilation Objective Vital Signs Date Time Temp Pulse Resp B/P (MAP) Pulse Ox O2 Delivery O2 Flow Rate FiO2 03/21/17 19:48 95 40 03/21/17 18:00 92 123/65 (84) 134/61 (85) 03/21/17 18:00 80 03/21/17 17:53 85 125/81 03/21/17 17:00 81 03/21/17 16:00 100.3 120 16 161/79 (106) 91 159/77 (104) 03/21/17 16:00 40 03/21/17 16:00 120 03/21/17 15:00 123 03/21/17 14:00 120 03/21/17 13:26 94 40 03/21/17 13:00 117 03/21/17 12:00 118 03/21/17 12:00 40 03/21/17 12:00 101.1 118 12 128/65 (86) 92 122/64 (83) 03/21/17 11:45 93 40 03/21/17 11:00 118 03/21/17 10:00 127 03/21/17 09:16 122 133/73 03/21/17 09:00 120 03/21/17 08:37 124 133/73 03/21/17 08:00 130 03/21/17 08:00 40 03/21/17 08:00 100.7 122 12 136/82 (100) 100 03/21/17 07:09 91 40 03/21/17 07:00 127 03/21/17 06:00 124 03/21/17 06:00 153/88 (109) 149/86 (107) 03/21/17 04:21 96 40 03/21/17 04:00 99.3 113 12 140/63 (88) 99 143/72 (95) 03/21/17 04:00 113 03/21/17 04:00 40 03/21/17 02:00 116 03/21/17 00:13 98 40 03/21/17 00:00 40 03/21/17 00:00 114 03/21/17 00:00 99.3 114 12 104/63 (77) 95 127/70 (89) I/O 03/20/17 03/20/17 03/20/17 03/21/17 03/21/1703/21/17 07:00 15:00 23:00 07:00 15:00 23:00 Intake Total 667 ml 560 ml 194 ml 56 ml 2414 ml Output Total 2201 ml 1200 ml 1800 ml 1725 ml Balance -1534 ml -640 ml -1606 ml 56 ml 689 ml Intake Oral 0 ml 0 ml IV Total 100 ml 194 ml 56 ml 1536 ml Tube Feeding 667 ml 460 ml 578 ml Other 300 ml Output Urine Total 2200 ml 1200 ml 1800 ml 1725 ml Stool Total 1 ml # Bowel Movements 1 2 0 Result Diagram: 03/21/1745 03/21/17544 Imaging Sedated, on mechanical ventilation Lungs: ventilated Heart: S1, S2 irregular Abdomen: obese, no mass Ext: no edema Last Impressions Chest X-Ray 03/21/17 Signed Impressions: Service Date/Time: February 09:45 - CONCLUSION: 1. Consolidation of the left lower lobe. 2. Diffuse chronic interstitial changes mildly improved compared to previous. 3. The ET tube is somewhat high approximately 7 cm above the angelica. Quincy Resendez MD Renal Ultrasound 03/16/17 Signed Impressions: Service Date/Time: Thursday, March 16, 2017 11:27 - CONCLUSION: The hydronephrosis has resolved. Urinary bladder is decompressed.. Jose Flores MD CT Angiography 03/15/17 0520 Signed Impressions: Service Date/Time: Wednesday, March 15, 2017 07:46 - CONCLUSION: 1. No evidence for pulmonary embolism. 2. Cardiomegaly with enlargement of pulmonary arteries likely from pulmonary arterial hypertension. 3. Bibasilar patchy densities could be atelectasis or infiltrate. 4. Mosaic attenuation which can be seen with small airway disease. 5. Enlarged precarinal and subcarinal adenopathy. Jai Queen MD Head CT 03/15/17 0000 Signed Impressions: Service Date/Time: Wednesday, March 15, 2017 07:47 - CONCLUSION: No acute intracranial disease. Jai Queen MD Abdomen/Pelvis CT 03/15/17 0000 Signed Impressions: Service Date/Time: Wednesday, March 15, 2017 07:51 - CONCLUSION: 1. Bilateral hydronephrosis with extensive stranding in the perinephric regions greater on the left. 2. Mild circumferential wall thickening within the bladder with mild distention. 3. Postsurgical changes rectosigmoid junction. 4. Small fat containing abdominal wall hernias. Jai Queen MD Current Medications Medications (Trade) Dose Ordered Sig/Chiqui Route Start Time Stop Time Status Last Admin (Tylenol) 650 mg Q4H PRN PO 03/15/17 10:15 03/21/17 16:23 (Motrin) 600 mg Q6H PRN PO 03/15/17 10:15 03/21/17 12:34 (Synthroid) 50 mcg DAILY@0600 PO 03/16/17 06:00 03/21/17 06:27 (Pravachol) 40 mg DAILY PO 03/16/17 09:00 03/21/17 08:46 (Ativan Inj) 1 mg Q4H PRN IV PUSH 03/15/17 14:00 (NS Flush) 2 ml UNSCH PRN IV FLUSH 03/15/17 14:30 (NS Flush) 2 ml BID IV FLUSH 03/15/17 21:00 03/21/17 21:03 (Tears Naturale Opth Soln) 1 drop TID EACH EYE 03/15/17 18:00 03/20/17 17:18 (Zofran Inj) 4 mg Q6H PRN IV PUSH 03/15/17 14:30 (Duoneb Neb) 1 ampule Q2HR NEB PRN INH 03/15/17 14:30 03/19/17 22:26 Miscellaneous Information 1 Q361D XX 03/15/17 14:30 03/15/17 14:30 (Chlorhexidine 2% Cloth) Taper DAILY@04 TOP 03/16/17 04:00 03/12/18 03:59 03/21/17 04:00 (Chlorhexidine 2% Cloth) 3 pack UNSCH PRN TOP 03/15/17 14:30 (Elsa-Colace) 1 tab BID PO 03/15/17 21:00 03/20/17 21:34 (Milk Of Magnesia Liq) 30 ml Q12H PRN PO 03/15/17 14:30 (Senokot) 17.2 mg Q12H PRN PO 03/15/17 14:30 (Dulcolax Supp) 10 mg DAILY PRN RECTAL 03/15/17 14:30 (Lactulose Liq) 30 ml DAILY PRN PO 03/15/17 14:30 (D50w (Vial) Inj) 50 ml UNSCH PRN IV PUSH 03/15/17 15:15 (Glucagon Inj) 1 mg UNSCH PRN OTHER 03/15/17 15:15 (NovoLOG SUPPLEMENTAL SCALE) 1 ACHS SLIDING SCALE SQ 03/15/17 17:00 03/21/17 21:00 (Heparin Inj) 5,000 units Q8HR SQ 03/15/17 22:00 03/21/17 21:07 (Lactulose Liq) 30 ml DAILY NG 03/15/17 16:30 03/19/17 08:06 Fentanyl Citrate 250 ml @ 5 mls/hr TITRATE PRN IV 03/15/17 16:45 03/21/17 07:41 Levofloxacin/ Dextrose 150 ml @ 100 mls/hr Q48H IV 03/15/17 18:00 03/21/17 16:25 Midazolam HCl 100 ml @ 2 mls/hr TITRATE PRN IV 03/15/17 18:00 03/17/17 20:21 Vasopressin 40 units/Dextrose 100 ml @ 6 mls/hr [id number] IV 03/15/17 19:17 03/17/17 05:48 Norepinephrine Bitartrate 250 ml @ 7.5 mls/hr TITRATE PRN IV 03/15/17 22:45 03/16/17 23:51 (Brethine Inj) 1 mg UNSCH PRN SQ 03/15/17 22:45 Potassium Chloride 100 ml @ 50 mls/hr Q2H PRN IV 03/16/17 09:45 03/20/17 08:12 Potassium Chloride 100 ml @ 50 mls/hr Q2H PRN IV 03/16/17 09:45 (K-Lyte Cl Eff) 50 meq UNSCH PRN PO 03/16/17 09:45 Potassium Chloride 100 ml @ 25 mls/hr UNSCH PRN IV 03/16/17 09:45 Potassium Chloride 100 ml @ 50 mls/hr Q2H PRN IV 03/16/17 09:45 03/18/17 15:46 Magnesium Sulfate 4 gm/Sodium Chloride 100 ml @ 50 mls/hr UNSCH PRN IV 03/16/17 09:45 (Mag-Ox) 800 mg UNSCH PRN PO 03/16/17 09:45 Magnesium Sulfate 2 gm/Sodium Chloride 100 ml @ 50 mls/hr UNSCH PRN IV 03/16/17 09:45 03/16/17 11:07 (K-Phos) 2,000 mg Q4H PRN PO 03/16/17 09:45 Sodium Phosphate 30 mmol/Sodium Chloride 250 ml @ 42 mls/hr UNSCH PRN IV 03/16/17 09:45 (K-Phos) 2,000 mg UNSCH PRN PO/TUBE 03/16/17 09:45 Potassium Phosphate 30 mmol/ Sodium Chloride 260 ml @ 42 mls/hr UNSCH PRN IV 03/16/17 09:45 (Cordarone) 400 mg BID PO 03/16/17 21:00 03/21/17 21:04 (Pepcid Inj) 10 mg Q12HR IV PUSH 03/17/17 09:00 03/21/17 21:04 (Trandate Inj) 20 mg Q2H PRN IV 03/19/17 12:00 03/21/17 22:28 (PROzac LIQ) 20 mg DAILY PO 03/20/17 11:00 03/21/17 08:46 (SoluCORTEF INJ) 50 mg Q8H IV PUSH 03/20/17 18:00 03/21/17 16:25 Diltiazem HCl 125 mg/Sodium Chloride 125 ml @ 5 mls/hr TITRATE PRN IV 03/21/17 07:45 03/21/17 17:53 (Levemir Inj) 15 units Q12HR SQ 03/21/17 09:00 03/21/17 21:05 (Bumex Inj) 1 mg DAILY IV PUSH 03/21/17 09:00 Cefepime HCl 1000 mg/Sodium Chloride 100 ml @ 200 mls/hr Q12H IV 03/21/17 17:00 03/21/17 17:00 Assessment and Plan Problem List: (1) Atrial fibrillation with rapid ventricular response ICD Codes: I48.91 - Atrial fibrillation with rapid ventricular response Status: Acute Plan: HR control today On cardizem PO Cardizem PO will be initiated No need for cardioversion Case discussed with Dr Zarina Solis will be available on a PRN basis. (2) Respiratory failure ICD Codes: J96.90 - Respiratory failure, unspecified, unspecified whether with hypoxia or hypercapnia Plan: Still on mechanical ventilation Prognosis guarded Juan Lubin MD Mar 21, 2017 22:40
[2017-03-22] VITALS (37 sets, daily range): BP systolic 118–165; BP diastolic 61–133; PULSE 79–113; RESP 12–14; TEMP 98.8–99; O2SAT 96–100
[2017-03-22] MEDS: CHLORHEXIDINE GLUCONATE 2 % 1 PACK (2 CLOTHS) TOP SCH (04:00)
[2017-03-22] MEDS: CEFEPIME INJ 1,000 MG in SODIUM CHLORIDE 0.9% INJ 100 ML IV SCH ×2 (05:00→15:29)
[2017-03-22 05:26] LABS: AUTOMATED NEUTROPHIL # 8.4 TH/MM3 (1.8-7.7); BASOPHIL # 0.1 TH/MM3 (0-0.2); BASOPHIL % 0.5 % (0.0-2.0); EOSINOPHIL # 0.3 TH/MM3 (0-0.4); EOSINOPHIL % 2.8 % (0.0-4.0); HEMATOCRIT 24.4 % (35.0-46.0); LYMPH % 8.7 % (9.0-44.0); MEAN CORPUSCULAR HEMOGLOBIN 29.8 PG (27.0-34.0); MEAN CORPUSCULAR HGB CONC 32.4 % (32.0-36.0); MONO % 11.4 % (0.0-8.0); NEUT % 76.6 % (16.0-70.0); PLATELET COUNT 120 TH/MM3 (150-450); RED BLOOD COUNT 2.65 MIL/MM3 (4.00-5.30); RED CELL DISTRIBUTION WIDTH 15.9 % (11.6-17.2); WHITE BLOOD COUNT 10.9 TH/MM3 (4.0-11.0)
[2017-03-22] MEDS: HYDROCORTISONE SOD SUCCINATE 100 MG VIAL IV PUSH SCH ×2 (05:28→09:15)
[2017-03-22] MEDS: HEPARIN SODIUM - SQ 10,000 UNITS/ML VIAL SQ SCH ×3 (05:29→20:14)
[2017-03-22] MEDS: LEVOTHYROXINE SODIUM 50 MCG TAB PO SCH (05:29)
[2017-03-22] MEDS: LABETALOL HCL 100 MG/20 ML VIAL IV PRN ×2 (05:45→14:31)
[2017-03-22 05:51] LABS: HEMO FLAGS AUTO DIFF
[2017-03-22 05:55] LABS: BICARBONATE 36.1 MEQ/L (21.0-32.0); POTASSIUM 3.8 MEQ/L (3.5-5.1)
[2017-03-22] MEDS: INSULIN ASPART SUPPLEMENTAL SCALE SQ SCH ×3 (08:00→17:29)
[2017-03-22 08:31] LABS: BANDS 1 % (0-6); CORRECTED NUCLEATED RBC 1 /100 WBC (0-0); METAMYELOCYTES 4 % (0-1); MYELOCYTES 3 % (0-0); NEUTROPHIL # MANUAL DIFF 9.7 TH/MM3 (1.8-7.7); POLYS (SEG NEUTROPHILS) 81 % (16-70); WBC DIFF SAMPLE 100
[2017-03-22 08:34] LABS: PLATELET ESTIMATE SMEAR LOW (NORMAL); STOMATOCYTES 1+ (NORMAL)
[2017-03-22 08:35] LABS: PLATELET MORPHOLOGY NORMAL (NORMAL); SCAN/DIFF FINAL DIFF MANUAL
[2017-03-22] MEDS: LACTULOSE SYRUP 20 GM/30 ML CUP NG SCH (09:14)
[2017-03-22] MEDS: FLUoxetine HCL LIQUID 20 MG/5 ML CUP PO SCH (09:14)
[2017-03-22] MEDS: DOCUSATE SODIUM 50 MG/SENNA 8.6 MG TAB PO SCH ×2 (09:14→20:10)
[2017-03-22] MEDS: AMIODARONE 200 MG TAB PO SCH ×2 (09:14→20:10)
[2017-03-22] MEDS: DILTIAZEM INJ 125 MG in SODIUM CHLORIDE 0.9% INJ 100 ML IV PRN (09:15)
[2017-03-22] MEDS: BUMETANIDE INJ 1 MG/4 ML VIAL IV PUSH SCH (09:15)
[2017-03-22] MEDS: FAMOTIDINE 20 MG/2 ML VIAL IV PUSH SCH ×2 (09:15→20:11)
[2017-03-22] MEDS: PRAVASTATIN SOD 40 MG TAB PO SCH (09:15)
[2017-03-22] MEDS: INSULIN DETEMIR 100 UNITS/ML VIAL SQ SCH ×2 (09:16→20:11)
[2017-03-22] MEDS: ARTIFICIAL TEARS OPTH SOLN 15 ML BTL EACH EYE SCH ×3 (09:17→17:28)
[2017-03-22] MEDS: SODIUM CHLORIDE 0.9% FLUSH 10 ML FLUSH IV FLUSH SCH ×2 (09:17→20:10)
--- NOTE | 2017-03-22 09:41 | HHI.NPPN ---
Subjective History of Present Illness 71-year-old female with past medical history of colon cancer, diabetes mellitus, hypertension, hypothyroidism, history of TIA, history of chemotherapy for colon cancer, was admitted to the hospital with complaint of abdominal pain, nausea and vomiting. I was called to see the patient because of elevated creatinine. The patient did not have any previous history of renal disease. Her creatinine looking back it was 0.6 last month and she came with a creatinine 1.3 and has gone up to 1.8. Additional Remarks Patient remain intubated and sedated, low grade fever, not in distress. Review of Systems General General Remarks Intubated and sedated. Objective Data Data Vital Signs Date Time Temp Pulse Resp B/P (MAP) Pulse Ox O2 Delivery O2 Flow Rate FiO2 03/22/17 09:15 82 149/73 03/22/17 07:05 96 40 03/22/17 06:00 86 03/22/17 06:00 92 123/65 (84) 134/61 (85) 03/22/17 06:00 86 123/67 (85) 131/65 (87) 03/22/17 04:05 97 40 03/22/17 04:00 99.0 87 12 141/67 (91) 96 118/76 (90) 03/22/17 04:00 40 03/22/17 04:00 87 03/22/17 02:00 86 03/22/17 00:15 98 40 03/22/17 00:00 98.8 86 13 132/68 (89) 96 133/133 (133) 03/22/17 00:00 40 03/22/17 00:00 86 03/21/17 22:00 111 03/21/17 20:00 98.6 104 15 156/74 (101) 94 147/77 (100) 03/21/17 20:00 104 03/21/17 20:00 40 03/21/17 19:48 95 40 03/21/17 18:00 92 123/65 (84) 134/61 (85) 03/21/17 18:00 80 03/21/17 17:53 85 125/81 03/21/17 17:00 81 03/21/17 16:00 100.3 120 16 161/79 (106) 91 159/77 (104) 03/21/17 16:00 40 03/21/17 16:00 120 03/21/17 15:00 123 03/21/17 14:00 120 03/21/17 13:26 94 40 03/21/17 13:00 117 03/21/17 12:00 118 03/21/17 12:00 40 03/21/17 12:00 101.1 118 12 128/65 (86) 92 122/64 (83) 03/21/17 11:45 93 40 03/21/17 11:00 118 03/21/17 10:00 127 -: 03/22/17 0511 03/22/17 0511 Microbiology 03/21/17 Aerobic Blood Culture, Received Pending 03/21/17 Anaerobic Blood Culture, Received Pending 03/21/17 Aerobic Blood Culture, Received Pending 03/21/17 Anaerobic Blood Culture, Received Pending 03/21/17 Gram Stain, Received Pending 03/21/17 Sputum Culture, Received Pending Physical Exam General Appearance Remarks Intubated and sedated. Eyes Eye Exam: Pupils Equal Throat Throat Exam: Oral Mucosa [place] & Moist Neck Neck Exam: Neck Supple, Trachea Midline Pulmonary Resp Exam: Rhonchi, Decreased Bases, Diminished Breath Sounds, Poor Inspiratory Effort Cardiology CV Exam: Regular, Tachycardia Gastrointestinal/Abdomen GI Exam: Soft, Non-Tender, Bowel Sounds Present, Non-Distended Extremeties Extremities Exam: Trace Edema Neurologic Neuro Exam: Sedated Assessment/Plan Assessment Summary: ASH/Acute Renal Failure, Hypotension Problem List: (1) Respiratory failure ICD Codes: J96.90 - Respiratory failure, unspecified, unspecified whether with hypoxia or hypercapnia (2) Acute kidney failure ICD Codes: N17.9 - Acute kidney failure, unspecified (3) Hypothyroidism ICD Codes: E03.9 - Hypothyroidism Status: Acute (4) Hypertension ICD Codes: I10 - Essential (primary) hypertension Status: Chronic (5) PNA (pneumonia) ICD Codes: J18.9 - Pneumonia, unspecified organism (6) Hyperlipidemia ICD Codes: E78.5 - Hyperlipidemia Status: Acute (7) Cancer, colon ICD Codes: C18.9 - Malignant neoplasm of colon, unspecified Status: Acute Plan Most likely has ASH due to ATN. Patient has been non oliguric. Creatinine is now stable at 1.3 K is normal and Na. is 152. Continue Bumex, has been non oliguric. Avoid Nephrotoxins. Continue antibiotics. Started on Vanco. and also on Cefepime. Continue Bumex, follow the urine out put and BMP. Hgb dropped, possible transfusion and look for source of bleeding. Problem Qualifiers (1) Hypothyroidism: Qualified Codes: E03.9 - Hypothyroidism, unspecified (2) Hypertension: Qualified Codes: I10 - Essential (primary) hypertension (3) PNA (pneumonia): Qualified Codes: J18.9 - Pneumonia, unspecified organism Aixa Figueroa MD Mar 22, 2017 09:41
--- NOTE | 2017-03-22 10:45 | HHI.HP ---
[facility] Service Family Medicine Primary Care Physician Sheldon Puckett , Chelo Dumont MD Admission Diagnosis pyelonephritis, severe sepsis Diagnoses: (1) Sepsis due to Gram-negative organism with septic shock (2) Pyelonephritis (3) PNA (pneumonia) (4) Atrial fibrillation with rapid ventricular response (5) Diabetes mellitus, type II (6) Hypertension (7) Hypothyroidism (8) Nutrition, metabolism, and development symptoms International Travel<30 Days: No Contact w/Intl Traveler<30days: No Known Affected Area: No History of Present Illness Patient is a 71 year old female with a PMH significant for colon cancer s/p chemotherapy, atrial fibrillation on Eliquis, HTN, DM type 2, and MDD who presented to the ED with abdominal pain, nausea and vomiting. She is accompanied by her who contributes to her history. Patient states that she had pain in her left side this morning that radiated to her lower abdomen and caused her to have nausea and vomiting. She states that she has been short of breath for the past 3 weeks and progressively more fatigued. Her states that she has been becoming progressively weaker and sleeping excessively at times. At 3AM this morning, he noticed that she was trying to talk but "wasn 't making any sense." He states that she has been so short of breath that she has been having difficulty finishing sentences without becoming short of breath. She notes dysuria, urinary urgency and frequency for the past 3-4 days. Past Family Social History Past Medical History Atrial fibrillation (ablation x 2 in 2013) Eliquis stopped on 12/2015 for GI bleed Colon Cancer (sigmoid colon adenocarcinoma) Compression Fracture (12/2015 L3) MDD DM Type 2 HLD HTN Hypothyroidism TIA x [address] Candelario- Oncologist Dr. Lubin- Conventions Reservationist Past Surgical History Abdominal surgery- s exploratory laparotomy Appendectomy Section x 2 EGD 12/2015 Flexible sigmoidoscopy 12/2015 Hernia repair Colonoscopy 2015 Allergies: Coded Allergies: codeine (Unverified Allergy, Severe, Nausea/Vomiting, 03/15/17) Uncoded Allergies: METAL (Allergy, Intermediate, hives, 03/08/16) SURGICAL STEEL (Allergy, Intermediate, hives, 03/08/16) Family History Mom: Breast CA at 48, still living at 87 Dad: emphysema No siblings Son: lymphedema Social History Lives at home with . Has two children. EtOH: very rarely Tob: 10 pack/yr smoker; quit 2009 Illicits: None . 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 2 healthy kids. Physical Exam Vital Signs Vital Signs Date Time Temp Pulse Resp B/P (MAP) Pulse Ox O2 Delivery O2 Flow Rate FiO2 03/22/17 10:18 97 40 03/22/17 09:15 82 149/73 03/22/17 07:05 96 40 03/22/17 06:00 86 03/22/17 06:00 92 123/65 (84) 134/61 (85) 03/22/17 06:00 86 123/67 (85) 131/65 (87) 03/22/17 04:05 97 40 03/22/17 04:00 99.0 87 12 141/67 (91) 96 118/76 (90) 03/22/17 04:00 40 03/22/17 04:00 87 03/22/17 02:00 86 03/22/17 00:15 98 40 03/22/17 00:00 98.8 86 13 132/68 (89) 96 133/133 (133) 03/22/17 00:00 40 03/22/17 00:00 86 03/21/17 22:00 111 03/21/17 20:00 98.6 104 15 156/74 (101) 94 147/77 (100) 03/21/17 20:00 104 03/21/17 20:00 40 03/21/17 19:48 95 40 03/21/17 18:00 92 123/65 (84) 134/61 (85) 03/21/17 18:00 80 03/21/17 17:53 85 125/81 03/21/17 17:00 81 03/21/17 16:00 100.3 120 16 161/79 (106) 91 159/77 (104) 03/21/17 16:00 40 03/21/17 16:00 120 03/21/17 15:00 123 03/21/17 14:00 120 03/21/17 13:26 94 40 03/21/17 13:00 117 03/21/17 12:00 118 03/21/17 12:00 40 03/21/17 12:00 101.1 118 12 128/65 (86) 92 122/64 (83) 03/21/17 11:45 93 40 03/21/17 11:00 118 Physical Exam GENERAL: This is a well-nourished, well-developed patient, in no apparent distress. SKIN: No rashes, ecchymoses or lesions. Cool and dry. HEAD: Atraumatic. Normocephalic. No temporal or scalp tenderness. EYES: Pupils equal round and reactive. Extraocular motions intact. No scleral icterus. No injection or drainage. ENT: Nose without bleeding, purulent drainage or septal hematoma. Throat without erythema, tonsillar hypertrophy or exudate. Uvula midline. Airway patent. NECK: Trachea midline. No JVD or lymphadenopathy. Supple, nontender, no meningeal signs. CARDIOVASCULAR: Regular rate and rhythm without murmurs, gallops, or rubs. RESPIRATORY: Clear to auscultation. Breath sounds equal bilaterally. No wheezes , rales, or rhonchi. GASTROINTESTINAL: Abdomen soft, non-tender, nondistended. No hepato-splenomegaly , or palpable masses. No guarding. MUSCULOSKELETAL: Extremities without clubbing, cyanosis, or edema. No joint tenderness, effusion, or edema noted. No calf tenderness. Negative Homans sign bilaterally. NEUROLOGICAL: Awake and alert. Cranial nerves II through XII intact. Motor and sensory grossly within normal limits. Five out of 5 muscle strength in all muscle groups. Normal speech. Laboratory Laboratory Tests Test 03/22/17 05:11 White Blood Count 10.9 Red Blood Count 2.65 Hemoglobin 7.9 Hematocrit 24.4 Mean Corpuscular Volume 92.0 Mean Corpuscular Hemoglobin 29.8 Mean Corpuscular Hemoglobin Concent 32.4 Red Cell Distribution Width 15.9 Platelet Count 120 Mean Platelet Volume 9.1 Neutrophils (%) (Auto) 76.6 Lymphocytes (%) (Auto) 8.7 Monocytes (%) (Auto) 11.4 Eosinophils (%) (Auto) 2.8 Basophils (%) (Auto) 0.5 Neutrophils # (Auto) 8.4 Lymphocytes # (Auto) 1.0 Monocytes # (Auto) 1.2 Eosinophils # (Auto) 0.3 Basophils # (Auto) 0.1 CBC Comment AUTO DIFF Differential Total Cells Counted 100 Neutrophils % (Manual) 81 Band Neutrophils % 1 Lymphocytes % 6 Monocytes % 5 Neutrophils # (Manual) 9.7 Metamyelocytes 4 Myelocytes 3 Nucleated Red Blood Cells 1 Differential Comment FINAL DIFF MANUAL Platelet Estimate LOW Platelet Morphology Comment NORMAL Stomatocytes 1+ Blood Urea Nitrogen 47 Creatinine 1.32 Random Glucose 273 Calcium Level 8.3 Sodium Level 152 Potassium Level 3.8 Chloride Level 111 Carbon Dioxide Level 36.1 Anion Gap 5 Estimat Glomerular Filtration Rate 40 Lactic Acid Level 1.3 Random Vancomycin Level 15.3 Date/Time Source Procedure Growth Status 03/21/17 21:20 Blood Other Aerobic Blood Culture Pending Received 03/21/17 21:20 Blood Other Anaerobic Blood Culture Pending Received 03/21/17 18:30 Sputum Endotracheal Gram Stain - Final Resulted 03/21/17 18:30 Sputum Endotracheal Sputum Culture Pending Resulted 03/19/17 09:30 Urine Catheterized Urine Urine Culture - Final NO GROWTH IN 48 HOURS. Complete Result Diagram: 03/22/1751003/22/17510 Imaging Last Impressions Chest X-Ray 03/15/17519 Signed Impressions: Service Date/Time: Wednesday, March 15, 2017 05:41 - CONCLUSION: Opacity in the perihilar region bilaterally suggesting either central infiltrates or adenopathy. Antonio Voss MD CT Angiography 03/15/17519 Signed Impressions: Service Date/Time: Wednesday, March 15, 2017 07:46 - CONCLUSION: 1. No evidence for pulmonary embolism. 2. Cardiomegaly with enlargement of pulmonary arteries likely from pulmonary arterial hypertension. 3. Bibasilar patchy densities could be atelectasis or infiltrate. 4. Mosaic attenuation which can be seen with small airway disease. 5. Enlarged precarinal and subcarinal adenopathy. Jai Queen MD Head CT 03/15/17 0000 Signed Impressions: Service Date/Time: Wednesday, March 15, 2017 07:47 - CONCLUSION: No acute intracranial disease. Jai Queen MD Abdomen/Pelvis CT 03/15/17 0000 Signed Impressions: Service Date/Time: Wednesday, March 15, 2017 07:51 - CONCLUSION: 1. Bilateral hydronephrosis with extensive stranding in the perinephric regions greater on the left. 2. Mild circumferential wall thickening within the bladder with mild distention. 3. Postsurgical changes rectosigmoid junction. 4. Small fat containing abdominal wall hernias. MD Massimo Olguini VTE Risk Assessment Caprini VTE Risk Assessment: Mod/High Risk (score >= 2) Caprini Risk Assessment Model Point Value = 1 Point Value = 2 Point Value = 3 Point Value = 5 Age 41-60 Minor surgery BMI > 25 kg/m2 Swollen legs Varicose veins or History of unexplained or recurrent spontaneous Oral contraceptives or hormone replacement Sepsis (< 1 month) Serious lung disease, including pneumonia (< 1 month) Abnormal pulmonary function Acute myocardial infarction Congestive heart failure (< 1 month) History of inflammatory bowel disease Medical patient at bed rest Age 61-74 Arthroscopic surgery Major open surgery (> 45 min) Laparoscopic surgery (> 45 min) Malignancy Confined to bed (> 72 hours) Immobilizing plaster cast Central venous access Age >= 75 History of VTE Family history of VTE Factor V Leiden Prothrombin [id number] Lupus anticoagulant Anticardiolipin antibodies Elevated serum homocysteine Heparin-induced thrombocytopenia Other congenital or acquired thrombophilia Stroke (< 1 month) Elective arthroplasty Hip, pelvis, or leg fracture Acute spinal cord injury (< 1 month) Prophylaxis Regimen Total Risk Factor Score Risk Level Prophylaxis Regimen 0-1 Low Early ambulation 2 Moderate Order ONE of the following: *Sequential Compression Device (SCD) *Heparin 5000 units SQ BID 3-4 Higher Order ONE of the following medications: *Heparin 5000 units SQ TID *Enoxaparin/Lovenox 40 mg SQ daily (WT < 150 kg, CrCl > 30 mL/min) *Enoxaparin/Lovenox 30 mg SQ daily (WT < 150 kg, CrCl > 10-29 mL/min) *Enoxaparin/Lovenox 30 mg SQ BID (WT < 150 kg, CrCl > 30 mL/min) AND/OR *Sequential Compression Device (SCD) 5 or more Highest Order ONE of the following medications: *Heparin 5000 units SQ TID (Preferred with Epidurals) *Enoxaparin/Lovenox 40 mg SQ daily (WT < 150 kg, CrCl > 30 mL/min) *Enoxaparin/Lovenox 30 mg SQ daily (WT < 150 kg, CrCl > 10-29 mL/min) *Enoxaparin/Lovenox 30 mg SQ BID (WT < 150 kg, CrCl > 30 mL/min) AND *Sequential Compression Device (SCD) Assessment and Plan Assessment and Plan Patient is a 71 year old female with a PMH significant for colon cancer s/p chemotherapy, atrial fibrillation on Eliquis, HTN, DM type 2, and MDD who presented to the ED with abdominal pain, nausea and vomiting and was found to have severe sepsis secondary to PNA and pyelonephritis in addition to atrial fibrillation with RVR. She rapidly decompensated into respiratory failure and was intubated on 03/15, now in critical condition with sepsis. Problem List: (1) Sepsis due to Gram-negative organism with septic shock ICD Codes: A41.50 - Gram-negative sepsis, unspecified; R65.21 - Severe sepsis with septic shock Status: Acute Plan: Neurologic: AMS-toxic encephalopathy secondary to sepsis History of TIA x 2 Major Depressive Disorder Neurochecks per ICU protocol Patient intubated for airway protection continues on propofol and fentanyl infusions for ventilator synchrony Ammonia elevated at 67 on admission, 44 yesterday, continue lactulose 03/15 CT brain-no intracranial abnormality Neurology consulted- Dr. Huff to consider MRI brain within the next few days Daily sedation vacation Respiratory: Acute Hypoxemic respiratory failure Pulmonary hypertension Carinal adenopathy 03/15 Patient intubated emergently FiO2 50, PEEP 10 today Maintain O2 sat greater than 92% Ventilator bundle Duonebs Q6H scheduled and Q2H when necessary 03/15 CT angiogram -pulmonary hypertension, no PE, enlarged precarinal and subcarinal lymphadenopathy 03/16 CXR shows persisting consolidation left mid and lower lung and improving infiltrates in the lower right lung 03/18 CXR: Stable basilar airspace disease 03/20 CXR: Increase basilar airspace disease Concern for pneumonia, infectious disease on board and recommendations are appreciated Concern for worsening cardiac function resulting in backflow of fluid into lungs Pulmonary HTN not present on last echo in 03/16 Echo shows EF 55-60%, severe mitral annular calcification with moderate mitral valve stenosis, mildly dilated right atrium, mild to mod aortic valve stenosis, pulmonary arterial pressure 55.2 Cardiovascular: A. fib RVR Hypertension Patient initially on Cardizem infusion-heart rate now in 90's, discontinued for MAP < 60 Amiodarone 400mg PO BID. labetalol when necessary for hypertension. Off pressors currently Cardizem drip started for improving control Last echo 02/05- ejection fraction 55-60%. No RWMA. APA 35 mmHg, TV mild regurg, MV mild regurg 03/16 Echo results as above EPS- Dr. Lubin consulted Renal: Bilateral hydronephrosis Pyelonephrosis Continue Gallo catheter, output 470ml in past 24 hours 03/14-CT of the abdomen and pelvis-bilateral hydronephrosis, pyelonephrosis, perinephric stranding -- Strict I/Os Urology consulted- 03/16 renal US shows resolution of hydronephrosis, urinary bladder decompressed Creatinine 1.36 today FEN/GI: History of colon cancer status post chemotherapy and colectomy Abdominal hernia Continue tube feeds NGT to LIWS Hypokalemia at 2.4, on ICU electrolyte protocol. Repeat BMP this afternoon Heme/ID: Septic Shock due to gram negative carmela Community-acquired multilobar pneumonia Pyelonephritis Lactic acidemia Bandemia 03/15 Blood cultures growing Klebsiella pneumoniae 03/15 urine culture growing Klebsiella pneumonia 03/16 sputum culture: No growth to date 2 days legionella and streptococcus antigens negative ID consulted - Dr. Hansen, treat with Levaquin 03/19: Urine culture: No growth to date 2 Heme- Onc consulted regarding carinal adenopathy lymphadenopathy, patient is S/ P completion of chemotherapy 09/2016. Repeat CT chest in 1-2 months to evaluate mediastinal lymph nodes as outpatient Trend lactate level 6.4->4.2->4.9->3.0->1.5->2.2->2.3 Endocrine: Diabetes mellitus Hypothyroidism High-dose SSI Long-acting Levemir at 15 units twice a day, will monitor for hypoglycemia Continue Levothyroxine 50 mcgs/day Prophylaxis: GI Prophylaxis with famotidine BID DVT Prophylaxis with SCDs and Heparin 5000u Q8H Lines: Port right chest, peripheral IVs 2, left radial A-line (2) Pyelonephritis ICD Codes: N12 - Tubulo-interstitial nephritis, not specified as acute or chronic (3) PNA (pneumonia) ICD Codes: J18.9 - Pneumonia, unspecified organism (4) Atrial fibrillation with rapid ventricular response ICD Codes: I48.91 - Atrial fibrillation with rapid ventricular response Status: Acute (5) Diabetes mellitus, type II ICD Codes: E11.9 - Type 2 diabetes mellitus Status: Chronic (6) Hypertension ICD Codes: I10 - Essential (primary) hypertension Status: Chronic (7) Hypothyroidism ICD Codes: E03.9 - Hypothyroidism Status: Acute (8) Nutrition, metabolism, and development symptoms ICD Codes: R63.8 - Symptoms concerning nutrition, metabolism, and development Status: Acute Physician Certification Order for Inpatient Services The services are ordered in accordance with Medicare regulations or non- Medicare payer requirements, as applicable. In the case of services not specified as inpatient-only, they are appropriately provided as inpatient services in accordance with the 2-midnight benchmark. days is the estimated time the patient will need to remain in the hospital, assuming treatment plan goals are met and no additional complications. 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
--- NOTE | 2017-03-22 10:50 | HHI.FPPN ---
Subjective Remarks Ms Marroquin remains intubated and sedated. She is stable overall with a greatly improved and controlled heart rate today. Her WBC is normal and she is doing well on her vent settings. Spoke to her about her overall condition as well as changes in her meds. The main new thing is decreased H/H. She is having that repeated and may need further studies such as a CT to be sure she is not bleeding internally. She has no evidence of bleeding now. Objective Vitals Vital Signs Date Time Temp Pulse Resp B/P (MAP) Pulse Ox O2 Delivery O2 Flow Rate FiO2 03/22/17 10:18 97 40 03/22/17 09:15 82 149/73 03/22/17 07:05 96 40 03/22/17 06:00 86 03/22/17 06:00 92 123/65 (84) 134/61 (85) 03/22/17 06:00 86 123/67 (85) 131/65 (87) 03/22/17 04:05 97 40 03/22/17 04:00 99.0 87 12 141/67 (91) 96 118/76 (90) 03/22/17 04:00 40 03/22/17 04:00 87 03/22/17 02:00 86 03/22/17 00:15 98 40 03/22/17 00:00 98.8 86 13 132/68 (89) 96 133/133 (133) 03/22/17 00:00 40 03/22/17 00:00 86 03/21/17 22:00 111 03/21/17 20:00 98.6 104 15 156/74 (101) 94 147/77 (100) 03/21/17 20:00 104 03/21/17 20:00 40 03/21/17 19:48 95 40 03/21/17 18:00 92 123/65 (84) 134/61 (85) 03/21/17 18:00 80 03/21/17 17:53 85 125/81 03/21/17 17:00 81 03/21/17 16:00 100.3 120 16 161/79 (106) 91 159/77 (104) 03/21/17 16:00 40 03/21/17 16:00 120 03/21/17 15:00 123 03/21/17 14:00 120 03/21/17 13:26 94 40 03/21/17 13:00 117 03/21/17 12:00 118 03/21/17 12:00 40 03/21/17 12:00 101.1 118 12 128/65 (86) 92 122/64 (83) 03/21/17 11:45 93 40 03/21/17 11:00 118 I/O 03/21/17 03/21/17 03/21/17 03/22/17 03/22/17 03/22/17 07:00 15:00 23:00 07:00 15:00 23:00 Intake Total 194 ml 56 ml 2414 ml 1227 ml Output Total 1800 ml 1725 ml 860 ml Balance -1606 ml 56 ml 689 ml 367 ml Intake Oral 0 ml IV Total 194 ml 56 ml 1536 ml 396 ml Tube Feeding 578 ml 531 ml Other 300 ml 300 ml Output Urine Total 1800 ml 1725 ml 860 ml # Bowel Movements 2 0 1 Result Diagram: 03/22/1751003/22/17510 Objective Remarks GENERAL: Well-nourished, well-developed obese female. Sedated and intubated. Opens eyes spontaneously. SKIN: Warm and dry. HEAD: Normocephalic. EYES: No scleral icterus. No injection or drainage. NECK: Supple, trachea midline. No JVD or lymphadenopathy. CARDIOVASCULAR: Irregularly irregular rate and rhythm without murmurs, gallops, or rubs. controlled rate today RESPIRATORY: Breath sounds equal bilaterally. No accessory muscle use. GASTROINTESTINAL: Abdomen soft, non-tender, distended. Bowel sounds present. MUSCULOSKELETAL: No cyanosis, 2+ pitting edema in lower extremities bilaterally as well as edema in her hands today left more than right Date of Insertion: Mar 15, 2017 A/P Assessment and Plan Patient is a 71 year old female with a PMH significant for colon cancer s/p chemotherapy, atrial fibrillation on Eliquis, HTN, DM type 2, and MDD who presented to the ED with abdominal pain, nausea and vomiting and was found to have severe sepsis secondary to PNA and pyelonephritis in addition to atrial fibrillation with RVR. She rapidly decompensated into respiratory failure and was intubated on 03/15, now in critical condition with sepsis. Discharge Planning Unclear timetable, patient in critical condition. Will likely need a SNF once improved as she will be very weak and debilitated. Problem List: (1) Sepsis due to Gram-negative organism with septic shock ICD Codes: A41.50 - Gram-negative sepsis, unspecified; R65.21 - Severe sepsis with septic shock Status: Acute Plan: Neurologic: AMS-toxic encephalopathy secondary to sepsis History of TIA x 2 Major Depressive Disorder Neurochecks per ICU protocol Patient intubated for airway protection sedation as needed with daily breaks when possible Ammonia elevated at 67 on admission, decreased to 44, continue lactulose. may not need this as her liver was likely effected from sepsis 03/15 CT brain-no intracranial abnormality Neurology consulted- Dr. Huff to consider MRI brain if needed Daily sedation vacation liquid prozac as she is still on tube feeds Respiratory: Acute Hypoxemic respiratory failure Pulmonary hypertension Carinal adenopathy 03/15 Patient intubated emergently FiO2 40, PEEP 5 today Maintain O2 sat greater than 92% Ventilator bundle Duonebs Q6H scheduled and Q2H when necessary 03/15 CT angiogram -pulmonary hypertension, no PE, enlarged precarinal and subcarinal lymphadenopathy 03/16 CXR shows persisting consolidation left mid and lower lung and improving infiltrates in the lower right lung 03/18 CXR: Stable basilar airspace disease 03/20 CXR: Increase basilar airspace disease Concern for pneumonia, infectious disease on board and recommendations are appreciated Concern for worsening cardiac function resulting in some pulmonary edema. pt diuresed Pulmonary HTN not present on last echo in 2014, 03/16 Echo shows EF 55-60%, severe mitral annular calcification with moderate mitral valve stenosis, mildly dilated right atrium, mild to mod aortic valve stenosis, pulmonary arterial pressure 55.2 will cut steroids and taper off over the next few days Cardiovascular: A. fib RVR Hypertension Patient Cardizem infusion-heart rate now in 90 Amiodarone 400mg PO BID. labetalol when necessary for hypertension. Cardizem drip for control of heart rate. cardioversion only if unable to control rate Last echo 02/05- ejection fraction 55-60%. No RWMA. APA 35 mmHg, TV mild regurg, MV mild regurg 03/16 Echo results as above EPS- Dr. Lubin consulted Renal: Bilateral hydronephrosis Pyelonephrosis Continue Jacobsen catheter, once improved can do trial to remove jacobsen 03/14-CT of the abdomen and pelvis-bilateral hydronephrosis, pyelonephrosis, perinephric stranding -- Strict I/Os Urology consulted- 03/16 renal US shows resolution of hydronephrosis, urinary bladder decompressed Creatinine stable FEN/GI: History of colon cancer status post chemotherapy and colectomy Abdominal hernia Continue tube feeds Hypokalemia on ICU electrolyte protocol. will add some free water. her sodium is creeping up as well as her chloride. she is off all regular iv fluids Heme/ID: Septic Shock due to gram negative carmela Community-acquired multilobar pneumonia Pyelonephritis Lactic acidemia Bandemia 03/15 Blood cultures growing Klebsiella pneumoniae 03/15 urine culture growing Klebsiella pneumonia 03/16 sputum culture: No growth to date 2 days legionella and streptococcus antigens negative ID consulted - Dr. Hansen, treat with Levaquin 03/19: Urine culture: No growth to date 2 Heme- Onc consulted regarding carinal adenopathy lymphadenopathy, patient is S/ P completion of chemotherapy 09/2016. Repeat CT chest in 1-2 months to evaluate mediastinal lymph nodes as outpatient Trend lactate level 6.4->4.2->4.9->3.0->1.5->2.2->2.3 Decreased H/H today. rechecking. Dr Srinivasan may transfuse or check CT if needed depending on recheck of H/H Endocrine: Diabetes mellitus Hypothyroidism High-dose SSI Long-acting Levemir at 15 units twice a day, will monitor for hypoglycemia Continue Levothyroxine 50 mcgs/day Prophylaxis: GI Prophylaxis with famotidine BID DVT Prophylaxis with SCDs and Heparin 5000u Q8H Lines: Port right chest, peripheral IVs 2, left radial A-line (2) Pyelonephritis ICD Codes: N12 - Tubulo-interstitial nephritis, not specified as acute or chronic Status: Resolved (3) PNA (pneumonia) ICD Codes: J18.9 - Pneumonia, unspecified organism Status: Acute (4) Atrial fibrillation with rapid ventricular response ICD Codes: I48.91 - Atrial fibrillation with rapid ventricular response Status: Resolved (5) Diabetes mellitus, type II ICD Codes: E11.9 - Type 2 diabetes mellitus Status: Chronic (6) Hypertension ICD Codes: I10 - Essential (primary) hypertension Status: Chronic (7) Hypothyroidism ICD Codes: E03.9 - Hypothyroidism Status: Acute (8) Nutrition, metabolism, and development symptoms ICD Codes: R63.8 - Symptoms concerning nutrition, metabolism, and development Status: Acute Problem Qualifiers (1) PNA (pneumonia): Qualified Codes: J18.9 - Pneumonia, unspecified organism (2) Diabetes mellitus, type II: Qualified Codes: E11.9 - Type 2 diabetes mellitus without complications; 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
[2017-03-22 11:10] LABS: HEMATOCRIT 32.5 % (35.0-46.0); REVIEW FLAG FINAL
[2017-03-22] MEDS: fentaNYL 2,500 MCG/NS 250 ML IV PRN ×2 (11:15→21:50)
--- NOTE | 2017-03-22 14:09 | HHI.IDPN ---
Subjective Subjective Remarks Patient is a 71-year-old female, admitted to the hospital for evaluation of abdominal pain, nausea and vomiting. She apparently has been complaining of left-sided abdominal pain goes down to the lower abdomen. She also started having nausea and vomiting. There was mention of some dysuria, urgency and frequency in the last 3-4 days. Patient also apparently has been having problem with shortness of breath over the last 3 weeks, and generalized weakness and easy fatigability. There was no mention of any fever or chills or sweats. On the morning of admission, the patient was noted to be confused, and was having more shortness of breath. There is no mention of any cough or congestion, or any complaint of any chest pain. Patient was brought into the hospital for further evaluation and treatment. Patient has had imaging studies done. CTA did not show any pulmonary embolism. CT of the abdomen and pelvis showing some mild bilateral hydronephrosis and some perinephric stranding. Her UA has pyuria. 2 blood cultures on admission are now reported as growing gram-negative carmela. Her WBC is normal. Creatinine is 1.32. Patient went into significant respiratory distress, and ended up getting intubated. She has received Zosyn, and vancomycin. Neurology has been consult. Infectious disease consultation requested to evaluate the patient with severe sepsis. 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 Off all pressors Monitor shows atrial fib Repeat UA better, UC negative WBC better Creatinine slightly higher Has whitehead thick secretions from ET Antibiotics Levaquin Cefepime Vanco x 1 03/21 Lines [place] Past Medical History Atrial fibrillation (ablation x 2 in 2013) Eliquis stopped on 12/2015 for GI bleed Colon Cancer (sigmoid colon adenocarcinoma) Compression Fracture (12/2015 L3) Depression DM Type 2 Hyperlipidemia Hypertension Hypothyroidism TIA x 2 in 2014 Past Surgical History Abdominal surgery- exploratory laparotomy Sigmoid colectomy, low anterior resection, repair of ventral hernia, 2016 [id number] placement Previous cardiac ablation for atrial fibrillation Appendectomy Section x 2 EGD 12/2015 Flexible sigmoidoscopy 12/2015 Hernia repair Colonoscopy 2015 Allergies: Coded Allergies: codeine (Unverified Allergy, Severe, Nausea/Vomiting, 03/15/17) Uncoded Allergies: METAL (Allergy, Intermediate, hives, 03/08/16) SURGICAL STEEL (Allergy, Intermediate, hives, 03/08/16) Objective . Vital Signs Date Time Temp Pulse Resp B/P (MAP) Pulse Ox O2 Delivery O2 Flow Rate FiO2 03/22/17 13:34 97 40 03/22/17 13:29 98 35 03/22/17 12:00 40 03/22/17 12:00 100 13 155/72 (99) 97 134/118 (123) 03/22/17 12:00 100 13 155/72 (99) 97 134/118 (123) 03/22/17 11:30 91 12 135/65 (88) 96 135/65 (88) 03/22/17 11:00 92 12 135/65 (88) 96 140/66 (90) 03/22/17 10:30 85 12 131/65 (87) 97 135/64 (87) 03/22/17 10:18 97 40 03/22/17 10:00 89 12 165/72 (103) 97 149/70 (96) 03/22/17 09:30 86 14 153/69 (97) 97 144/66 (92) 03/22/17 09:15 82 149/73 03/22/17 09:00 80 13 133/71 (91) 97 143/68 (93) 03/22/17 08:30 82 12 146/65 (92) 96 139/68 (91) 03/22/17 08:00 83 12 133/64 (87) 96 130/64 (86) 03/22/17 08:00 40 03/22/17 07:05 96 40 03/22/17 06:00 86 03/22/17 06:00 92 123/65 (84) 134/61 (85) 03/22/17 06:00 86 123/67 (85) 131/65 (87) 03/22/17 04:05 97 40 03/22/17 04:00 99.0 87 12 141/67 (91) 96 118/76 (90) 03/22/17 04:00 40 03/22/17 04:00 87 03/22/17 02:00 86 03/22/17 00:15 98 40 03/22/17 00:00 98.8 86 13 132/68 (89) 96 133/133 (133) 03/22/17 00:00 40 03/22/17 00:00 86 03/21/17 22:00 111 03/21/17 20:00 98.6 104 15 156/74 (101) 94 147/77 (100) 03/21/17 20:00 104 03/21/17 20:00 40 03/21/17 19:48 95 40 03/21/17 18:00 92 123/65 (84) 134/61 (85) 03/21/17 18:00 80 03/21/17 17:53 85 125/81 03/21/17 17:00 81 03/21/17 16:00 100.3 120 16 161/79 (106) 91 159/77 (104) 03/21/17 16:00 40 03/21/17 16:00 120 03/21/17 15:00 123 . Laboratory Tests Test 03/21/17 05:45 03/22/17 05:11 03/22/17 10:40 White Blood Count 16.4 TH/MM3 10.9 TH/MM3 Red Blood Count 3.94 MIL/MM3 2.65 MIL/MM3 Hemoglobin 11.5 GM/DL 7.9 GM/DL 10.4 GM/DL Hematocrit 35.7 % 24.4 % 32.5 % Mean Corpuscular Volume 90.5 FL 92.0 FL Mean Corpuscular Hemoglobin 29.2 PG 29.8 PG Mean Corpuscular Hemoglobin Concent 32.3 % 32.4 % Red Cell Distribution Width 16.1 % 15.9 % Platelet Count 151 TH/MM3 120 TH/MM3 Mean Platelet Volume 9.6 FL 9.1 FL Neutrophils (%) (Auto) 80.5 % 76.6 % Lymphocytes (%) (Auto) 5.5 % 8.7 % Monocytes (%) (Auto) 13.6 % 11.4 % Eosinophils (%) (Auto) 0.1 % 2.8 % Basophils (%) (Auto) 0.3 % 0.5 % Neutrophils # (Auto) 13.2 TH/MM3 8.4 TH/MM3 Lymphocytes # (Auto) 0.9 TH/MM3 1.0 TH/MM3 Monocytes # (Auto) 2.2 TH/MM3 1.2 TH/MM3 Eosinophils # (Auto) 0.0 TH/MM3 0.3 TH/MM3 Basophils # (Auto) 0.0 TH/MM3 0.1 TH/MM3 CBC Comment AUTO DIFF AUTO DIFF Differential Total Cells Counted 100 100 Neutrophils % (Manual) 66 % 81 % Band Neutrophils % 13 % 1 % Lymphocytes % 4 % 6 % Monocytes % 12 % 5 % Neutrophils # (Manual) 13.8 TH/MM3 9.7 TH/MM3 Metamyelocytes 3 % 4 % Myelocytes 2 % 3 % Nucleated Red Blood Cells 1 /100 WBC 1 /100 WBC Differential Comment FINAL DIFF MANUAL FINAL DIFF MANUAL Platelet Estimate NORMAL LOW Platelet Morphology Comment NORMAL NORMAL Stomatocytes 1+ 1+ Laboratory Tests Test 03/20/17 17:15 03/21/17 05:45 03/22/17 05:11 Blood Urea Nitrogen 48 MG/DL 48 MG/DL 47 MG/DL Creatinine 1.27 MG/DL 1.37 MG/DL 1.32 MG/DL Random Glucose 254 MG/DL 309 MG/DL 273 MG/DL Calcium Level 8.0 MG/DL 8.1 MG/DL 8.3 MG/DL Sodium Level 150 MEQ/L 151 MEQ/L 152 MEQ/L Potassium Level 4.5 MEQ/L 4.5 MEQ/L 3.8 MEQ/L Chloride Level 112 MEQ/L 111 MEQ/L 111 MEQ/L Carbon Dioxide Level 34.6 MEQ/L 34.8 MEQ/L 36.1 MEQ/L Anion Gap 3 MEQ/L 5 MEQ/L 5 MEQ/L Estimat Glomerular Filtration Rate 42 ML/MIN 38 ML/MIN 40 ML/MIN Total Protein 6.2 GM/DL Albumin 2.3 GM/DL Alkaline Phosphatase 127 U/L Aspartate Amino Transf (AST/SGOT) 32 U/L Alanine Aminotransferase (ALT/SGPT) 18 U/L Total Bilirubin 0.6 MG/DL Lactic Acid Level 1.4 mmol/L 1.3 mmol/L Microbiology Date/Time Source Procedure Growth Status 03/21/17 21:20 Blood Other Aerobic Blood Culture - Preliminary NO GROWTH IN 1 DAY Resulted 03/21/17 21:20 Blood Other Anaerobic Blood Culture - Preliminary NO GROWTH IN 1 DAY Resulted 03/21/17 19:35 Blood Peripheral Aerobic Blood Culture - Preliminary NO GROWTH IN 1 DAY Resulted 03/21/17 19:35 Blood Peripheral Anaerobic Blood Culture - Preliminary NO GROWTH IN 1 DAY Resulted 03/21/17 18:30 Sputum Endotracheal Gram Stain - Final Resulted 03/21/17 18:30 Sputum Endotracheal Sputum Culture - Preliminary No growth. Resulted Imaging Chest X-Ray 03/21/17 0000 Signed Impressions: Service Date/Time: February 09:45 - CONCLUSION: 1. Consolidation of the left lower lobe. 2. Diffuse chronic interstitial changes mildly improved compared to previous. 3. The ET tube is somewhat high approximately 7 cm above the angelica. Quincy Resendez MD Chest X-Ray 03/20/17 0600 Signed Impressions: Service Date/Time: Monday, March 20, 2017 04:57 - CONCLUSION: 1. Endotracheal tube and nasogastric tube in good position. Basilar airspace disease increased from March 18. Samuel Lin MD Chest X-Ray 03/18/17 0600 Signed Impressions: Service Date/Time: Saturday, March 18, 2017 03:45 - CONCLUSION: 1. Apparatus in good position. Relatively stable basilar airspace disease. Samuel Lin MD Chest X-Ray 03/17/17 0000 Signed Impressions: Service Date/Time: Friday, March 17, 2017 06:22 - CONCLUSION: Persistent infiltrates consolidation left lower lung and patchy infiltrates in the central right lung. Antoino Voss MD Chest X-Ray 03/16/17 06 Signed Impressions: Service Date/Time: Thursday, March 16, 2017 04:58 - CONCLUSION: Persisting consolidation left mid and lower lung and improving infiltrates in the lower right lung. Antonio Voss MD Renal Ultrasound 03/16/17 0000 Signed Impressions: Service Date/Time: Thursday, March 16, 2017 11:27 - CONCLUSION: The hydronephrosis has resolved. Urinary bladder is decompressed.. Jose Flores MD CT Angiography 03/15/17 0520 Signed Impressions: Service Date/Time: Wednesday, March 15, 2017 07:46 - CONCLUSION: 1. No evidence for pulmonary embolism. 2. Cardiomegaly with enlargement of pulmonary arteries likely from pulmonary arterial hypertension. 3. Bibasilar patchy densities could be atelectasis or infiltrate. 4. Mosaic attenuation which can be seen with small airway disease. 5. Enlarged precarinal and subcarinal adenopathy. Jai Queen MD Head CT 03/15/17 0000 Signed Impressions: Service Date/Time: Wednesday, March 15, 2017 07:47 - CONCLUSION: No acute intracranial disease. Jai Queen MD Abdomen/Pelvis CT 03/15/17 0000 Signed Impressions: Service Date/Time: Wednesday, March 15, 2017 07:51 - CONCLUSION: 1. Bilateral hydronephrosis with extensive stranding in the perinephric regions greater on the left. 2. Mild circumferential wall thickening within the bladder with mild distention. 3. Postsurgical changes rectosigmoid junction. 4. Small fat containing abdominal wall hernias. Jai Queen MD Physical Exam GENERAL: awake, looks comfortable on the vent SKIN: Warm and dry. No generalized rash HEAD: Atraumatic. Normocephalic. No temporal wasting, or tenderness. EYES: [place] conjunctiva. No petechia or hemorrhage. Pupils equal, round and reactive to light. No scleral icterus. No injection or drainage. EARS, NOSE AND THROAT: Nose without bleeding or purulent nasal discharge. She is orally intubated. NECK: Trachea midline. Supple and no meningeal signs CARDIOVASCULAR: Irregular rate and rhythm. No murmurs, rubs or gallops heard RESPIRATORY: Coarse breath sounds. Decreased at the bases. ABDOMEN: Less distended, no reaction to palpation. Bowel sounds present and hypoactive. No guarding. No rebound. No organomegaly. EXTREMITIES: No clubbing, cyanosis. Edema both hands. Well perfused and warm. NEUROLOGICAL: Sedated, no Babinski, no ankle clonus PSYCHIATRIC: Unable to assess LINE: No evidence of infection - port R upper chest : Gallo in place, urine better Assessment & Plan Remarks IMPRESSION Severe sepsis, Klebsiella urosepsis, - off pressors - has pyelonephritis (has perinephric stranding on CT and mild hydro, no stone seen, no colitis on CT, has complaints) Respiratory failure, bilateral infiltrates, ?PNA - prob multifactorial: Fluid, inflammatory, ?PNA - sputum C/S negative Known Colon CA, with (+) LN, undergoing chemo - S/P sigmoid colectomy, low anterior resection Renal insufficiency due to sepsis Atrial fib, chronic, previous ablation done and MS Leukocytosis, better today Recurrent fevers, ?new PNA RECOMMENDATION Continue Levaquin Follow C/S Dose of Vanco, check level in AM Continue Cefepime Follow temps Monitor progress Weaning as tolerated D/W RN Spoke with Rosaura Hansen MD Mar 22, 2017 14:09
[2017-03-22] MEDS ORDERED: VANCOMYCIN INJ 1,000 MG in SODIUM CHLOR 0.9% 250 ML INJ 250 ML IV ONE (15:00)
--- NOTE | 2017-03-22 15:16 | HHI.CCPN ---
Subjective Remarks/Hospital Course This is a 71 year old female with a PMH significant for colon cancer s/p chemotherapy, atrial fibrillation previously on Eliquis discontinued for GI bleeding, HTN, DM type 2, and MDD who presented to the ED with abdominal pain, nausea and vomiting.The patient stated that she had pain in her left side this morning that radiated to her lower abdomen and caused her to have nausea and vomiting. She states that she has been short of breath for the past 3 weeks and progressively more fatigued. Her states that she has been becoming progressively weaker and sleeping excessively at times. At 3AM this morning, he noticed that she was trying to talk but "wasn't making any sense." He states that she has been so short of breath that she has been having difficulty finishing sentences without becoming short of breath. She notes dysuria, urinary urgency and frequency for the past 3-4 days. Imaging studies and laboratory studies were performed. Notably CTA of the chest reveal pulmonary hypertension and carinal lymphadenopathy. CT abdomen and pelvis revealed bilateral hydronephrosis and pyelonephrosis with perinephric stranding. Cultures were sent, the patient was noted to have bacteremia notably gram- negative rods. The patient was in A. fib RVR in the ED the patient received Cardizem bolus and was placed on a Cardizem infusion and transferred to ICU. Upon admission to ICU the patient became progressively short of breath with escalating alternation in mental status critical care medicine was consulted. The patient's heart rate at that time was in the 130s systolic pressure 140s and O2 sat high 80s. Brief discussion with purpose of emergent intubation. Subjective: 03/16: Overnight the patient continued to have hemodynamic instability, now septic shock. Patient continues in A. fib with HR low 100's. Patient on maximum doses currently of norepinephrine and vasopressin infusions. Ophelia- cortisone added to medication regimen, Sodium bicarbonate infusion initiated. Imaging revealed hydronephrosis and pyelonephrosis patient seen by Dr. Larose, urine output now decreased to 150cc total over the last 12hrs, with continued elevation in creatinine. Planned renogram this a.m., to rule out obstruction with possible placement of nephrostomy tubes, and nephrology also consulted. Patient was seen by Dr. Candelario, carinal /hilar lymphadenopathy most likely not associated with carcinoma, plan for outpatient scan in 2-3 months. FiO2 was decreased to 60% overnight, ECHO pending her evaluation of cardiac status and pulmonary hypertension. 03/17: Overnight vasopressors weaned significantly, currently on lower doses. The patient continues on sodium bicarbonate infusion. Renogram canceled secondary to hemodynamic instability yesterday renal ultrasound performed revealed no hydronephrosis, creatinine continues to be elevated most likely secondary to acute kidney injury secondary to hypotension and septic shock. Nephrology consult pending. Echo revealed severe mitral valve stenosis and calcification with pulmonary hypertension and PASP 55.2 03/18: Remains sedated, orally intubated on mech vent. Off levophed. 03/19: Remains sedated, orally intubated on mechanical ventilation. Off Levophed. Blood pressure actually running high. Failed C Pap trials 03/20: Remains sedated, orally intubated on mechanical ventilation. Currently in A. fib. Off pressors. 03/21: Remains sedated, orally intubated on mechanical ventilation. In A. fib with RVR. Seen by Dr. Lubin on 03/21. Failed C Pap trials yesterday. 03/22: Remains sedated, orally intubated on mechanical ventilation. Remains in atrial fibrillation. Currently rate controlled with Cardizem drip. Objective Vital Signs Date Time Temp Pulse Resp B/P (MAP) Pulse Ox O2 Delivery O2 Flow Rate FiO2 03/22/17 13:34 97 40 03/22/17 12:00 100 13 155/72 (99) 134/118 (123) 03/22/17 04:00 99.0 Intake and Output 03/22/17 03/22/17 03/23/17 08:00 16:00 00:00 Intake Total 1227 ml Output Total 860 ml Balance 367 ml Result Diagram: 03/22/17 1040 03/22/17 0511 Other Results Laboratory Tests Test 03/22/17 05:11 03/22/17 10:40 White Blood Count 10.9 TH/MM3 Red Blood Count 2.65 MIL/MM3 Hemoglobin 7.9 GM/DL 10.4 GM/DL Hematocrit 24.4 % 32.5 % Mean Corpuscular Volume 92.0 FL Mean Corpuscular Hemoglobin 29.8 PG Mean Corpuscular Hemoglobin Concent 32.4 % Red Cell Distribution Width 15.9 % Platelet Count 120 TH/MM3 Mean Platelet Volume 9.1 FL Neutrophils (%) (Auto) 76.6 % Lymphocytes (%) (Auto) 8.7 % Monocytes (%) (Auto) 11.4 % Eosinophils (%) (Auto) 2.8 % Basophils (%) (Auto) 0.5 % Neutrophils # (Auto) 8.4 TH/MM3 Lymphocytes # (Auto) 1.0 TH/MM3 Monocytes # (Auto) 1.2 TH/MM3 Eosinophils # (Auto) 0.3 TH/MM3 Basophils # (Auto) 0.1 TH/MM3 CBC Comment AUTO DIFF Differential Total Cells Counted 100 Neutrophils % (Manual) 81 % Band Neutrophils % 1 % Lymphocytes % 6 % Monocytes % 5 % Neutrophils # (Manual) 9.7 TH/MM3 Metamyelocytes 4 % Myelocytes 3 % Nucleated Red Blood Cells 1 /100 WBC Differential Comment FINAL DIFF MANUAL Platelet Estimate LOW Platelet Morphology Comment NORMAL Stomatocytes 1+ Blood Urea Nitrogen 47 MG/DL Creatinine 1.32 MG/DL Random Glucose 273 MG/DL Calcium Level 8.3 MG/DL Sodium Level 152 MEQ/L Potassium Level 3.8 MEQ/L Chloride Level 111 MEQ/L Carbon Dioxide Level 36.1 MEQ/L Anion Gap 5 MEQ/L Estimat Glomerular Filtration Rate 40 ML/MIN Lactic Acid Level 1.3 mmol/L Random Vancomycin Level 15.3 COMMENT Imaging Last 48 hours Impressions Chest X-Ray 03/20/17 0600 Signed Impressions: Service Date/Time: Monday, March 20, 2017 04:57 - CONCLUSION: 1. Endotracheal tube and nasogastric tube in good position. Basilar airspace disease increased from March 18. Samuel Lin MD Last Impressions Chest X-Ray 03/17/17 0000 Signed Impressions: Service Date/Time: Friday, March 17, 2017 06:22 - CONCLUSION: Persistent infiltrates consolidation left lower lung and patchy infiltrates in the central right lung. Antonio Voss MD Renal Ultrasound 03/16/17 0000 Signed Impressions: Service Date/Time: Thursday, March 16, 2017 11:27 - CONCLUSION: The hydronephrosis has resolved. Urinary bladder is decompressed.. Jose Flores MD CT Angiography 03/15/17 0520 Signed Impressions: Service Date/Time: Wednesday, March 15, 2017 07:46 - CONCLUSION: 1. No evidence for pulmonary embolism. 2. Cardiomegaly with enlargement of pulmonary arteries likely from pulmonary arterial hypertension. 3. Bibasilar patchy densities could be atelectasis or infiltrate. 4. Mosaic attenuation which can be seen with small airway disease. 5. Enlarged precarinal and subcarinal adenopathy. Jai Queen MD Head CT 03/15/17 0000 Signed Impressions: Service Date/Time: Wednesday, March 15, 2017 07:47 - CONCLUSION: No acute intracranial disease. Jai Queen MD Abdomen/Pelvis CT 03/15/17 0000 Signed Impressions: Service Date/Time: Wednesday, March 15, 2017 07:51 - CONCLUSION: 1. Bilateral hydronephrosis with extensive stranding in the perinephric regions greater on the left. 2. Mild circumferential wall thickening within the bladder with mild distention. 3. Postsurgical changes rectosigmoid junction. 4. Small fat containing abdominal wall hernias. Jai Queen MD Last Impressions Chest X-Ray 03/16/17 0600 Signed Impressions: Service Date/Time: Thursday, March 16, 2017 04:58 - CONCLUSION: Persisting consolidation left mid and lower lung and improving infiltrates in the lower right lung. Antonio Voss MD CT Angiography 03/15/17 0520 Signed Impressions: Service Date/Time: Wednesday, March 15, 2017 07:46 - CONCLUSION: 1. No evidence for pulmonary embolism. 2. Cardiomegaly with enlargement of pulmonary arteries likely from pulmonary arterial hypertension. 3. Bibasilar patchy densities could be atelectasis or infiltrate. 4. Mosaic attenuation which can be seen with small airway disease. 5. Enlarged precarinal and subcarinal adenopathy. Jai Queen MD Head CT 03/15/17 0000 Signed Impressions: Service Date/Time: Wednesday, March 15, 2017 07:47 - CONCLUSION: No acute intracranial disease. Jai Queen MD Abdomen/Pelvis CT 03/15/17 0000 Signed Impressions: Service Date/Time: Wednesday, March 15, 2017 07:51 - CONCLUSION: 1. Bilateral hydronephrosis with extensive stranding in the perinephric regions greater on the left. 2. Mild circumferential wall thickening within the bladder with mild distention. 3. Postsurgical changes rectosigmoid junction. 4. Small fat containing abdominal wall hernias. Jai Queen MD Last Impressions Chest X-Ray 03/15/17519 Signed Impressions: Service Date/Time: Wednesday, March 15, 2017 05:41 - CONCLUSION: Opacity in the perihilar region bilaterally suggesting either central infiltrates or adenopathy. Antonio Voss MD CT Angiography 03/15/17519 Signed Impressions: Service Date/Time: Wednesday, March 15, 2017 07:46 - CONCLUSION: 1. No evidence for pulmonary embolism. 2. Cardiomegaly with enlargement of pulmonary arteries likely from pulmonary arterial hypertension. 3. Bibasilar patchy densities could be atelectasis or infiltrate. 4. Mosaic attenuation which can be seen with small airway disease. 5. Enlarged precarinal and subcarinal adenopathy. Jai Queen MD Head CT 03/15/17 0000 Signed Impressions: Service Date/Time: Wednesday, March 15, 2017 07:47 - CONCLUSION: No acute intracranial disease. Jai Queen MD Abdomen/Pelvis CT 03/15/17 0000 Signed Impressions: Service Date/Time: Wednesday, March 15, 2017 07:51 - CONCLUSION: 1. Bilateral hydronephrosis with extensive stranding in the perinephric regions greater on the left. 2. Mild circumferential wall thickening within the bladder with mild distention. 3. Postsurgical changes rectosigmoid junction. 4. Small fat containing abdominal wall hernias. Jai Queen MD Objective Remarks GENERAL: Obese critically ill-appearing female , sedated and intubated. SKIN: Warm and dry. HEAD: Atraumatic. Normocephalic. EYES: Pupils equal and round. No scleral icterus. No injection or drainage. ENT: No nasal bleeding or discharge. Mucous membranes pink and moist. NECK: Trachea midline. No JVD. CARDIOVASCULAR: Irregularly irregular rhythm. RESPIRATORY: Mechanical ventilation. Clear to auscultation. Breath sounds equal bilaterally. Scattered rhonchi bilaterally, no wheezing GASTROINTESTINAL: Abdomen soft, protuberant non-tender, nondistended. No guarding. MUSCULOSKELETAL: Extremities without clubbing, cyanosis, or edema. No obvious deformities. NEUROLOGICAL: Sedated, orally intubated on mechanical ventilation, moves all 4 extremities on lightening sedation. Procedures 03/16- Renogram cancelled . Renal US performed. 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 daily CPAP trials. Bronchodilators every 6 hours scheduled and every [address] angiogram -pulmonary hypertension, no PE, enlarged precarinal and subcarinal lymphadenopathy 03/17- CXR -consolidations B/L lobes worsened Cardiovascular: A. fib RVR Hypertension Patient arrived on Cardizem infusion-heart rate 130's, discontinue for MAP less than 60. Patient's home med amiodarone 200 mg daily increased to 400 mg twice a day. Labetalol when necessary for hypertension. Off pressors currently. Last echo 01/2015- ejection fraction 55-60%. No RWMA. PAP 35 mmHg, TV mild regurg ,MV mild regurg ECHO 03/16-EF 55- 60%. No RWMA, severe mitral valve annular calcification. Moderate mitral stenosis. Trace to mild MR, moderate TR, PAS P 55.2, trivial pulmonary valve regurgitation EPS- Dr. Lubin consulted. Discussed with Dr. London on 03/21, plan to transition to by mouth Cardizem. Patient previously has had GI bleed on anticoagulation hence we'll hold off on any anticoagulation currently. Currently on Cardizem drip for rate control. Being diuresed Renal: Bilateral hydronephrosis-resolved Pyelonephrosis Acute kidney injury most likely secondary to septic shock Elevated creatinine Insert and maintain Gallo catheter 03/14-CT of the abdomen and pelvis-bilateral hydronephrosis, pyelonephrosis, perinephric stranding 03/16 renal ultrasound-no hydronephrosis KVO IV fluids -- Strict I/Os, monitor and replete electrolytes, follow BUN/creatinine. FEN/GI: History of colon cancer status post chemotherapy Abdominal hernia NGT -Advance tube feeds with Glucerna 1.5 @ 30cc/hr with goal of 60cc/hr. Bowel regimen Heme/ID: Septic shock Community-acquired multilobar pneumonia Lactic acidemia Bandemia-resolved Blood cultures Klebsiella Urine culture Klebsiella Follow-up sputum culture Streptococcal and legionella antigens negative ID consulted - Dr. Hansen On Levaquin/cefepime/vancomycin per ID Heme- Onc consulted regarding carinal adenopathy lymphadenopathy, patient is S/ P completion of chemotherapy 06/2016 Endocrine: Diabetes mellitus Hypothyroidism High-dose insulin medication regimen, Levemir 15 units subcutaneously twice a day Continue Levothyroxine 50 mcgs/day Obtain thyroid panel Glucose monitoring per ICU protocol -- SSI Prophylaxis: GI Prophylaxis famotidine BID DVT Prophylaxis -- SCDs Heparin 5000u Q8H Lines: Port right chest, peripheral IVs 2, left radial A-line Dispo: Discussed with [employer], discussed with Dr. Sexton. Discussed current clinical status and plan of care with patient's at bedside and he voiced understanding and was agreeable. This patient remains critically ill with one or more organ systems which are or may become a threat to life. I have spent in excess of 30 minutes discontinuously in the care and management of this patient. This time is exclusive of procedures, and includes, but is not limited to, evaluation of the patient, review of the medical record, discussions with family, consultants, nursing staff, or respiratory therapy, and documentation in the medical record. Fernando Srinivasan MD Mar 22, 2017 15:16
[2017-03-22] MEDS: DILTIAZEM HCL 60 MG TAB PO SCH ×2 (17:28→23:28)
[2017-03-22] MEDS: VASOPRESSIN INJ 40 UNITS in DEXTROSE 5% IN WATER 100ML INJ 98 ML IV SCH ×2 (17:30)
[2017-03-22] MEDS: HYDROCORTISONE SOD SUCCINATE 100 MG VIAL IV SCH (20:10)
[2017-03-23] VITALS (19 sets, daily range): BP systolic 123–177; BP diastolic 57–144; PULSE 89–112; RESP 12–22; TEMP 98.5–100.1; O2SAT 92–99
[2017-03-23] MEDS: CHLORHEXIDINE GLUCONATE 2 % 1 PACK (2 CLOTHS) TOP SCH ×2 (04:00→23:46)
[2017-03-23] MEDS: fentaNYL 2,500 MCG/NS 250 ML IV PRN (04:47)
[2017-03-23] MEDS: CEFEPIME INJ 1,000 MG in SODIUM CHLORIDE 0.9% INJ 100 ML IV SCH ×2 (04:54→16:01)
[2017-03-23] MEDS: LEVOTHYROXINE SODIUM 50 MCG TAB PO SCH (04:55)
[2017-03-23] MEDS: HEPARIN SODIUM - SQ 10,000 UNITS/ML VIAL SQ SCH ×3 (04:55→20:24)
[2017-03-23] MEDS: DILTIAZEM HCL 60 MG TAB PO SCH ×4 (04:55→23:44)
[2017-03-23] MEDS: INSULIN ASPART SUPPLEMENTAL SCALE SQ SCH ×5 (04:58→23:45)
[2017-03-23 06:07] LABS: AUTOMATED NEUTROPHIL # 11.4 TH/MM3 (1.8-7.7); BASOPHIL % 0.1 % (0.0-2.0); EOSINOPHIL % 0.2 % (0.0-4.0); HEMATOCRIT 34.3 % (35.0-46.0); LYMPH % 9.3 % (9.0-44.0); LYMPHOCYTE # 1.3 TH/MM3 (1.0-4.8); MEAN CELL VOLUME 91.2 FL (80.0-100.0); MEAN CORPUSCULAR HGB CONC 31.8 % (32.0-36.0); MONO % 9.8 % (0.0-8.0); NEUT % 80.6 % (16.0-70.0); PLATELET COUNT 182 TH/MM3 (150-450); RED BLOOD COUNT 3.76 MIL/MM3 (4.00-5.30); RED CELL DISTRIBUTION WIDTH 16.2 % (11.6-17.2); WHITE BLOOD COUNT 14.2 TH/MM3 (4.0-11.0)
--- NOTE | 2017-03-23 06:16 | RADRPT ---
EXAM DATE/TIME: 03/23/2017 05:15 [facility] COMPARISON: CHEST SINGLE AP, March 21, 2017, 9:45. INDICATIONS : Respiratory distress, Sepsis MEDICAL HISTORY : None. SURGICAL HISTORY : None. ENCOUNTER: Subsequent ACUITY: 3 days PAIN SCORE: Non-responsive. LOCATION: Bilateral chest FINDINGS: A single view of the chest demonstrates right [id number] and superior vena cava. Endotracheal tube in good position. Nasogastric tube enters stomach. Bilateral mostly basilar airspace disease and sma ll effusions present. Cardiomegaly. No pneumothorax. CONCLUSION: 1. Basilar airspace disease with small effusions. Support apparatus in good position. Samuel Lin MD on March 23, 2017 at 6:12 Board Certified Radiologist. This report was verified electronically.
[2017-03-23 06:22] LABS: HEMO FLAGS AUTO DIFF
[2017-03-23 06:46] LABS: ALKALINE PHOSPHATASE 128 U/L (45-117); ALT (GPT) 20 U/L (10-53); ANION GAP 5 MEQ/L (5-15); AST (GOT) 24 U/L (15-37); BICARBONATE 38.3 MEQ/L (21.0-32.0); BLOOD UREA NITROGEN 44 MG/DL (7-18); CHLORIDE 113 MEQ/L (98-107); GLOMERULAR FILTRATION RATE 43 ML/MIN (>89); POTASSIUM 3.7 MEQ/L (3.5-5.1); TOTAL BILIRUBIN ADULT 0.4 MG/DL (0.2-1.0)
[2017-03-23 06:53] LABS: SODIUM (NA) 156 MEQ/L (136-145)
[2017-03-23 07:51] LABS: BANDS 6 % (0-6); METAMYELOCYTES 2 % (0-1); MYELOCYTES 3 % (0-0); NEUTROPHIL # MANUAL DIFF 10.8 TH/MM3 (1.8-7.7); POLYS (SEG NEUTROPHILS) 65 % (16-70); WBC DIFF SAMPLE 100
[2017-03-23 07:52] LABS: PLATELET ESTIMATE SMEAR NORMAL (NORMAL); PLATELET MORPHOLOGY NORMAL (NORMAL); SCAN/DIFF FINAL DIFF MANUAL
[2017-03-23] MEDS: FLUoxetine HCL LIQUID 20 MG/5 ML CUP PO SCH (09:03)
[2017-03-23] MEDS: LACTULOSE SYRUP 20 GM/30 ML CUP NG SCH (09:03)
[2017-03-23] MEDS: DOCUSATE SODIUM 50 MG/SENNA 8.6 MG TAB PO SCH ×2 (09:04→20:23)
[2017-03-23] MEDS: PRAVASTATIN SOD 40 MG TAB PO SCH (09:04)
[2017-03-23] MEDS: ARTIFICIAL TEARS OPTH SOLN 15 ML BTL EACH EYE SCH ×3 (09:05→17:10)
[2017-03-23] MEDS: HYDROCORTISONE SOD SUCCINATE 100 MG VIAL IV SCH ×2 (09:05→20:23)
[2017-03-23] MEDS: BUMETANIDE INJ 1 MG/4 ML VIAL IV PUSH SCH (09:05)
[2017-03-23] MEDS: FAMOTIDINE 20 MG/2 ML VIAL IV PUSH SCH ×2 (09:05→20:23)
[2017-03-23] MEDS: SODIUM CHLORIDE 0.9% FLUSH 10 ML FLUSH IV FLUSH SCH ×2 (09:05→20:23)
[2017-03-23] MEDS: AMIODARONE 200 MG TAB PO SCH ×2 (09:07→20:24)
[2017-03-23] MEDS: INSULIN DETEMIR 100 UNITS/ML VIAL SQ SCH ×2 (09:10→20:24)
--- NOTE | 2017-03-23 10:25 | HHI.FPPN ---
Subjective Remarks Patient seen and examined this morning. She is intubated and sedated. Temperature is 98.9, pulse ranges between 90-107, blood pressure is receiving 139-166/69-144, intubation is set at 12 breaths per minute, PEEP of 5, and FiO2 of 40. (Sumit Flor MD, R3) Objective Vitals Vital Signs Date Time Temp Pulse Resp B/P (MAP) Pulse Ox O2 Delivery O2 Flow Rate FiO2 03/23/17 07:31 99 40 03/23/17 06:38 107 139/69 (92) 166/144 (151) 03/23/17 06:00 95 03/23/17 04:29 96 40 03/23/17 04:00 92 03/23/17 04:00 40 03/23/17 04:00 98.9 92 12 139/69 (92) 96 149/70 (96) 03/23/17 02:00 90 03/23/17 01:20 98 40 03/23/17 00:00 89 03/23/17 00:00 40 03/23/17 00:00 98.6 89 14 142/65 (90) 97 139/65 (89) 03/22/17 22:09 98 40 03/22/17 22:00 93 03/22/17 21:30 100 40 03/22/17 20:00 91 03/22/17 20:00 40 03/22/17 20:00 98.8 91 12 152/71 (98) 98 147/67 (93) 03/22/17 18:05 40 03/22/17 18:00 93 13 160/72 (101) 98 149/68 (95) 03/22/17 18:00 93 03/22/17 18:00 93 160/72 (101) 149/68 (95) 03/22/17 17:30 79 12 151/69 (96) 98 140/65 (90) 03/22/17 17:00 85 14 139/67 (91) 98 138/64 (88) 03/22/17 16:59 97 40 03/22/17 16:30 84 12 160/74 (102) 98 148/67 (94) 03/22/17 16:00 88 03/22/17 16:00 88 12 136/72 (93) 97 141/64 (89) 03/22/17 15:30 90 03/22/17 15:00 87 03/22/17 14:33 108 03/22/17 14:30 113 03/22/17 14:00 104 03/22/17 13:34 97 40 03/22/17 13:30 93 03/22/17 13:29 98 35 03/22/17 13:00 99 03/22/17 12:30 98 03/22/17 12:00 40 03/22/17 12:00 100 13 155/72 (99) 97 134/118 (123) 03/22/17 12:00 100 03/22/17 12:00 100 13 155/72 (99) 97 134/118 (123) 03/22/17 11:30 91 12 135/65 (88) 96 135/65 (88) 03/22/17 11:30 91 03/22/17 11:00 92 12 135/65 (88) 96 140/66 (90) 03/22/17 11:00 92 03/22/17 10:30 85 12 131/65 (87) 97 135/64 (87) 03/22/17 10:30 85 03/22/17 10:18 97 40 I/O 03/22/17 03/22/17 03/22/17 03/23/17 03/23/17 03/23/17 07:00 15:00 23:00 07:00 15:00 23:00 Intake Total 1227 ml 1294 ml 730 ml 100 ml Output Total 860 ml 1600 ml 950 ml Balance 367 ml -306 ml -220 ml 100 ml IV Total 396 ml 250 ml 100 ml Tube Feeding 531 ml 744 ml 430 ml Other 300 ml 300 ml 300 ml Output Urine Total 860 ml 1600 ml 950 ml # Bowel Movements 1 1 1 (Sumit Flor MD, R3) Result Diagram: 03/23/1714 03/23/17 0514 Imaging Last Impressions Chest X-Ray 03/21/17 0000 Signed Impressions: Service Date/Time: February 09:45 - CONCLUSION: 1. Consolidation of the left lower lobe. 2. Diffuse chronic interstitial changes mildly improved compared to previous. 3. The ET tube is somewhat high approximately 7 cm above the angelica. Quincy Resendez MD Renal Ultrasound 03/16/17 0000 Signed Impressions: Service Date/Time: Thursday, March 16, 2017 11:27 - CONCLUSION: The hydronephrosis has resolved. Urinary bladder is decompressed.. Jose Flores MD CT Angiography 03/15/17 0520 Signed Impressions: Service Date/Time: Wednesday, March 15, 2017 07:46 - CONCLUSION: 1. No evidence for pulmonary embolism. 2. Cardiomegaly with enlargement of pulmonary arteries likely from pulmonary arterial hypertension. 3. Bibasilar patchy densities could be atelectasis or infiltrate. 4. Mosaic attenuation which can be seen with small airway disease. 5. Enlarged precarinal and subcarinal adenopathy. Jai Queen MD Head CT 03/15/17 0000 Signed Impressions: Service Date/Time: Wednesday, March 15, 2017 07:47 - CONCLUSION: No acute intracranial disease. Jai Queen MD Abdomen/Pelvis CT 03/15/17 0000 Signed Impressions: Service Date/Time: Wednesday, March 15, 2017 07:51 - CONCLUSION: 1. Bilateral hydronephrosis with extensive stranding in the perinephric regions greater on the left. 2. Mild circumferential wall thickening within the bladder with mild distention. 3. Postsurgical changes rectosigmoid junction. 4. Small fat containing abdominal wall hernias. Jai Queen MD Objective Remarks GENERAL: Well-nourished, well-developed obese female. Sedated and intubated. Opens eyes spontaneously. SKIN: Warm and dry. HEAD: Normocephalic. EYES: No scleral icterus. No injection or drainage. NECK: Supple, trachea midline. No JVD or lymphadenopathy. CARDIOVASCULAR: Irregularly irregular rate and rhythm with systolic murmur RESPIRATORY: Breath sounds equal bilaterally. No accessory muscle use. GASTROINTESTINAL: Abdomen soft, non-tender, distended. Bowel sounds present. MUSCULOSKELETAL: No cyanosis, 2+ pitting edema in lower extremities bilaterally as well as edema in her handst Medications and IVs Current Medications Medications (Trade) Dose Ordered Sig/Chiqui Route Start Time Stop Time Status Last Admin (Tylenol) 650 mg Q4H PRN PO 03/15/17 10:15 03/21/17 16:23 (Synthroid) 50 mcg DAILY@0600 PO 03/16/17 06:00 03/23/17 04:55 (Pravachol) 40 mg DAILY PO 03/16/17 09:00 03/23/17 09:04 (Ativan Inj) 1 mg Q4H PRN IV PUSH 03/15/17 14:00 (NS Flush) 2 ml UNSCH PRN IV FLUSH 03/15/17 14:30 (NS Flush) 2 ml BID IV FLUSH 03/15/17 21:00 03/23/17 09:05 (Tears Naturale Opth Soln) 1 drop TID EACH EYE 03/15/17 18:00 03/23/17 09:05 (Zofran Inj) 4 mg Q6H PRN IV PUSH 03/15/17 14:30 (Duoneb Neb) 1 ampule Q2HR NEB PRN INH 03/15/17 14:30 03/19/17 22:26 Miscellaneous Information 1 Q361D XX 03/15/17 14:30 03/15/17 14:30 (Chlorhexidine 2% Cloth) Taper DAILY@04 TOP 03/16/17 04:00 03/12/18 03:59 03/23/17 04:00 (Chlorhexidine 2% Cloth) 3 pack UNSCH PRN TOP 03/15/17 14:30 (Elsa-Colace) 1 tab BID PO 03/15/17 21:00 03/23/17 09:04 (Milk Of Magnesia Liq) 30 ml Q12H PRN PO 03/15/17 14:30 (Senokot) 17.2 mg Q12H PRN PO 03/15/17 14:30 (Dulcolax Supp) 10 mg DAILY PRN RECTAL 03/15/17 14:30 (Lactulose Liq) 30 ml DAILY PRN PO 03/15/17 14:30 (D50w (Vial) Inj) 50 ml UNSCH PRN IV PUSH 03/15/17 15:15 (Glucagon Inj) 1 mg UNSCH PRN OTHER 03/15/17 15:15 (Heparin Inj) 5,000 units Q8HR SQ 03/15/17 22:00 03/23/17 04:55 (Lactulose Liq) 30 ml DAILY NG 03/15/17 16:30 03/23/17 09:03 Fentanyl Citrate 250 ml @ 5 mls/hr TITRATE PRN IV 03/15/17 16:45 03/23/17 04:47 Levofloxacin/ Dextrose 150 ml @ 100 mls/hr Q48H IV 03/15/17 18:00 03/21/17 16:25 Midazolam HCl 100 ml @ 2 mls/hr TITRATE PRN IV 03/15/17 18:00 03/17/17 20:21 Norepinephrine Bitartrate 250 ml @ 7.5 mls/hr TITRATE PRN IV 03/15/17 22:45 03/16/17 23:51 (Brethine Inj) 1 mg UNSCH PRN SQ 03/15/17 22:45 Potassium Chloride 100 ml @ 50 mls/hr Q2H PRN IV 03/16/17 09:45 03/20/17 08:12 Potassium Chloride 100 ml @ 50 mls/hr Q2H PRN IV 03/16/17 09:45 (K-Lyte Cl Eff) 50 meq UNSCH PRN PO 03/16/17 09:45 Potassium Chloride 100 ml @ 25 mls/hr UNSCH PRN IV 03/16/17 09:45 Potassium Chloride 100 ml @ 50 mls/hr Q2H PRN IV 03/16/17 09:45 03/18/17 15:46 Magnesium Sulfate 4 gm/Sodium Chloride 100 ml @ 50 mls/hr UNSCH PRN IV 03/16/17 09:45 (Mag-Ox) 800 mg UNSCH PRN PO 03/16/17 09:45 Magnesium Sulfate 2 gm/Sodium Chloride 100 ml @ 50 mls/hr UNSCH PRN IV 03/16/17 09:45 03/16/17 11:07 (K-Phos) 2,000 mg Q4H PRN PO 03/16/17 09:45 Sodium Phosphate 30 mmol/Sodium Chloride 250 ml @ 42 mls/hr UNSCH PRN IV 03/16/17 09:45 (K-Phos) 2,000 mg UNSCH PRN PO/TUBE 03/16/17 09:45 Potassium Phosphate 30 mmol/ Sodium Chloride 260 ml @ 42 mls/hr UNSCH PRN IV 03/16/17 09:45 (Cordarone) 400 mg BID PO 03/16/17 21:00 03/23/17 09:07 (Pepcid Inj) 10 mg Q12HR IV PUSH 03/17/17 09:00 03/23/17 09:05 (Trandate Inj) 20 mg Q2H PRN IV 03/19/17 12:00 03/22/17 14:31 (PROzac LIQ) 20 mg DAILY PO 03/20/17 11:00 03/23/17 09:03 Diltiazem HCl 125 mg/Sodium Chloride 125 ml @ 5 mls/hr TITRATE PRN IV 03/21/17 07:45 03/22/17 09:15 (Levemir Inj) 15 units Q12HR SQ 03/21/17 09:00 03/23/17 09:10 (Bumex Inj) 1 mg DAILY IV PUSH 03/21/17 09:00 03/23/17 09:05 Cefepime HCl 1000 mg/Sodium Chloride 100 ml @ 200 mls/hr Q12H IV 03/21/17 17:00 03/23/17 04:54 (SoluCORTEF INJ) 50 mg Taper BID IV 03/22/17 21:00 03/26/17 20:59 03/23/17 09:05 (Cardizem) 60 mg Q6HR PO 03/22/17 18:00 03/23/17 04:55 (NovoLOG SUPPLEMENTAL SCALE) 1 Q6HR SQ 03/22/17 18:00 03/23/17 00:00 (Sumit Flor MD, R3) Date of Insertion: Mar 15, 2017 (Sumit Flor MD, R3) A/P Assessment and Plan Patient is a 71 year old female with a PMH significant for colon cancer s/p chemotherapy, atrial fibrillation on Eliquis, HTN, DM type 2, and MDD who presented to the ED with abdominal pain, nausea and vomiting and was found to have severe sepsis secondary to PNA and pyelonephritis in addition to atrial fibrillation with RVR. She rapidly decompensated into respiratory failure and was intubated on 03/15, continues to be in critical condition with sepsis. Discharge Planning Unclear timetable, patient in critical condition. Will likely need a SNF once improved as she will be very weak and debilitated. wdw: Dr. Greenberg (Sumit Flor MD, R3) Attending Attestation Patient seen and examined. Case reviewed and discussed with the resident team. Agree with plan of care as discussed with me and documented in the resident note. agree with increasing free water as she needs her maintenance fluids. CPAP trials today (Lydia Greenberg MD) Problem List: (1) Sepsis due to Gram-negative organism with septic shock ICD Codes: A41.50 - Gram-negative sepsis, unspecified; R65.21 - Severe sepsis with septic shock Status: Acute Plan: Neurologic: AMS-toxic encephalopathy secondary to sepsis History of TIA x 2 Major Depressive Disorder Neurochecks per ICU protocol Patient intubated for airway protection sedation as needed with daily breaks when possible Ammonia elevated at 67 on admission, decreased to 44, continue lactulose. may not need this as her liver was likely effected from sepsis 03/15 CT brain-no intracranial abnormality Neurology consulted- Dr. Huff to consider MRI brain if needed Daily sedation vacation liquid prozac as she is still on tube feeds Respiratory: Acute Hypoxemic respiratory failure Pulmonary hypertension Carinal adenopathy 03/15 Patient intubated emergently FiO2 40, PEEP 5 today Maintain O2 sat greater than 92% Ventilator bundle Duonebs Q6H scheduled and Q2H when necessary 03/15 CT angiogram -pulmonary hypertension, no PE, enlarged precarinal and subcarinal lymphadenopathy 03/16 CXR shows persisting consolidation left mid and lower lung and improving infiltrates in the lower right lung 03/18 CXR: Stable basilar airspace disease 03/20 CXR: Increase basilar airspace disease Concern for pneumonia, infectious disease on board and recommendations are appreciated Concern for worsening cardiac function resulting in some pulmonary edema. pt diuresed Pulmonary HTN not present on last echo in 03/16 Echo shows EF 55-60%, severe mitral annular calcification with moderate mitral valve stenosis, mildly dilated right atrium, mild to mod aortic valve stenosis, pulmonary arterial pressure 55.2 Hydrocortisone 50 mg twice a day IV taper Cardiovascular: A. fib RVR Hypertension Patient Cardizem infusion-heart rate now in 90's Amiodarone 400mg PO BID. labetalol when necessary for hypertension. Cardizem 60mg q6hr for control of heart rate. cardioversion only if unable to control rate Last echo 02/05- ejection fraction 55-60%. No RWMA. APA 35 mmHg, TV mild regurg, MV mild regurg 03/16 Echo results as above EPS- Dr. Lubin consulted Renal: Bilateral hydronephrosis Pyelonephrosis Continue Jacobsen catheter, once improved can do trial to remove jacobsen 03/14-CT of the abdomen and pelvis-bilateral hydronephrosis, pyelonephrosis, perinephric stranding -- Strict I/Os Urology consulted- 03/16 renal US shows resolution of hydronephrosis, urinary bladder decompressed Creatinine stable FEN/GI: History of colon cancer status post chemotherapy and colectomy Abdominal hernia Continue tube feeds Hypokalemia on ICU electrolyte protocol. will add some free water. her sodium is creeping up as well as her chloride. she is off all regular iv fluids Heme/ID: Septic Shock due to gram negative car[facility] Community-acquired multilobar pneumonia Pyelonephritis Lactic acidemia Bandemia 03/15 Blood cultures growing Klebsiella pneumoniae 03/15 urine culture growing Klebsiella pneumonia 03/16 sputum culture: No growth to date 2 days legionella and streptococcus antigens negative ID consulted - Dr. Hansen, treat with Levaquin, vancomycin, and cefepime 03/19: Urine culture: No growth to date 2 Heme- Onc consulted regarding carinal adenopathy lymphadenopathy, patient is S/ P completion of chemotherapy 09/2016. Repeat CT chest in 1-2 months to evaluate mediastinal lymph nodes as outpatient Trend lactate level 6.4->4.2->4.9->3.0->1.5->2.2->2.3 Hemoglobin and hematocrit 10.9 and 34.3 respectively Endocrine: Diabetes mellitus Hypothyroidism High-dose SSI every 6 hours Long-acting Levemir at 15 units twice a day, will monitor for hypoglycemia Continue Levothyroxine 50 mcgs/day Tube feeds with free water this patient's sodium is elevated at 156 Prophylaxis: GI Prophylaxis with famotidine BID DVT Prophylaxis with SCDs and Heparin 5000u Q8H Lines: Port right chest, peripheral IVs 2, left radial A-line (2) Pyelonephritis ICD Codes: N12 - Tubulo-interstitial nephritis, not specified as acute or chronic Status: Resolved (3) PNA (pneumonia) ICD Codes: J18.9 - Pneumonia, unspecified organism Status: Acute (4) Atrial fibrillation with rapid ventricular response ICD Codes: I48.91 - Atrial fibrillation with rapid ventricular response Status: Resolved (5) Diabetes mellitus, type II ICD Codes: E11.9 - Type 2 diabetes mellitus Status: Chronic (6) Hypertension ICD Codes: I10 - Essential (primary) hypertension Status: Chronic (7) Hypothyroidism ICD Codes: E03.9 - Hypothyroidism Status: Acute (8) Nutrition, metabolism, and development symptoms ICD Codes: R63.8 - Symptoms concerning nutrition, metabolism, and development Status: Acute (Sumit Flor MD, R3) Problem Qualifiers (1) PNA (pneumonia): Qualified Codes: J18.9 - Pneumonia, unspecified organism (2) Diabetes mellitus, type II: Qualified Codes: E11.9 - Type 2 diabetes mellitus without complications; Z79.4 - shelter (current) use of insulin (3) Hypertension: Qualified Codes: I10 - Essential (primary) hypertension (4) Hypothyroidism: Qualified Codes: E03.9 - Hypothyroidism, unspecified Sumit Flor MD, R3 Mar 23, 2017 10:25 Lydia Greenberg MD Mar 23, 2017 11:02
--- NOTE | 2017-03-23 10:42 | HHI.CCPN ---
Subjective Remarks/Hospital Course This is a 71 year old female with a PMH significant for colon cancer s/p chemotherapy, atrial fibrillation previously on Eliquis discontinued for GI bleeding, HTN, DM type 2, and MDD who presented to the ED with abdominal pain, nausea and vomiting.The patient stated that she had pain in her left side this morning that radiated to her lower abdomen and caused her to have nausea and vomiting. She states that she has been short of breath for the past 3 weeks and progressively more fatigued. Her states that she has been becoming progressively weaker and sleeping excessively at times. At 3AM this morning, he noticed that she was trying to talk but "wasn't making any sense." He states that she has been so short of breath that she has been having difficulty finishing sentences without becoming short of breath. She notes dysuria, urinary urgency and frequency for the past 3-4 days. Imaging studies and laboratory studies were performed. Notably CTA of the chest reveal pulmonary hypertension and carinal lymphadenopathy. CT abdomen and pelvis revealed bilateral hydronephrosis and pyelonephrosis with perinephric stranding. Cultures were sent, the patient was noted to have bacteremia notably gram- negative rods. The patient was in A. fib RVR in the ED the patient received Cardizem bolus and was placed on a Cardizem infusion and transferred to ICU. Upon admission to ICU the patient became progressively short of breath with escalating alternation in mental status critical care medicine was consulted. The patient's heart rate at that time was in the 130s systolic pressure 140s and O2 sat high 80s. Brief discussion with purpose of emergent intubation. Subjective: 03/16: Overnight the patient continued to have hemodynamic instability, now septic shock. Patient continues in A. fib with HR low 100's. Patient on maximum doses currently of norepinephrine and vasopressin infusions. [place]- cortisone added to medication regimen, Sodium bicarbonate infusion initiated. Imaging revealed hydronephrosis and pyelonephrosis patient seen by Dr. Larose, urine output now decreased to 150cc total over the last 12hrs, with continued elevation in creatinine. Planned renogram this a.m., to rule out obstruction with possible placement of nephrostomy tubes, and nephrology also consulted. Patient was seen by Dr. Candelario, carinal /hilar lymphadenopathy most likely not associated with carcinoma, plan for outpatient scan in 2-3 months. FiO2 was decreased to 60% overnight, ECHO pending her evaluation of cardiac status and pulmonary hypertension. 03/17: Overnight vasopressors weaned significantly, currently on lower doses. The patient continues on sodium bicarbonate infusion. Renogram canceled secondary to hemodynamic instability yesterday renal ultrasound performed revealed no hydronephrosis, creatinine continues to be elevated most likely secondary to acute kidney injury secondary to hypotension and septic shock. Nephrology consult pending. Echo revealed severe mitral valve stenosis and calcification with pulmonary hypertension and PASP 55.2 03/18: Remains sedated, orally intubated on mech vent. Off levophed. 03/19: Remains sedated, orally intubated on mechanical ventilation. Off Levophed. Blood pressure actually running high. Failed C Pap trials 03/20: Remains sedated, orally intubated on mechanical ventilation. Currently in A. fib. Off pressors. 03/21: Remains sedated, orally intubated on mechanical ventilation. In A. fib with RVR. Seen by Dr. Lubin on 03/21. Failed C Pap trials yesterday. 03/22: Remains sedated, orally intubated on mechanical ventilation. Remains in atrial fibrillation. Currently rate controlled with Cardizem drip. 03/23: Remains sedated, orally intubated on mechanical ventilation. On Cardizem drip for rate control for A. fib. Objective Vital Signs Date Time Temp Pulse Resp B/P (MAP) Pulse Ox O2 Delivery O2 Flow Rate FiO2 03/23/17 10:00 102 03/23/17 08:00 98.5 22 142/75 (97) 92 177/84 (115) 03/23/17 07:31 40 Intake and Output 03/23/17 03/23/17 03/24/17 08:00 16:00 00:00 Intake Total 830 ml Output Total 950 ml Balance -120 ml Result Diagram: 03/23/17 0514 03/23/17 0514 Other Results Microbiology Date/Time Source Procedure Growth Status 03/21/17 18:30 Sputum Endotracheal Gram Stain - Final Complete 03/21/17 18:30 Sputum Endotracheal Sputum Culture - Final NO GROWTH IN 48 HOURS. Complete Imaging Last 48 hours Impressions Chest X-Ray 03/20/17 0600 Signed Impressions: Service Date/Time: Saturday, March 20, 2017 04:57 - CONCLUSION: 1. Endotracheal tube and nasogastric tube in good position. Basilar airspace disease increased from March 18. Samuel Lin MD Last Impressions Chest X-Ray 03/17/17 0000 Signed Impressions: Service Date/Time: Friday, March 17, 2017 06:22 - CONCLUSION: Persistent infiltrates consolidation left lower lung and patchy infiltrates in the central right lung. Antonio Voss MD Renal Ultrasound 03/16/17 0000 Signed Impressions: Service Date/Time: Thursday, March 16, 2017 11:27 - CONCLUSION: The hydronephrosis has resolved. Urinary bladder is decompressed.. Jose Flores MD CT Angiography 03/15/17 05 Signed Impressions: Service Date/Time: Wednesday, March 15, 2017 07:46 - CONCLUSION: 1. No evidence for pulmonary embolism. 2. Cardiomegaly with enlargement of pulmonary arteries likely from pulmonary arterial hypertension. 3. Bibasilar patchy densities could be atelectasis or infiltrate. 4. Mosaic attenuation which can be seen with small airway disease. 5. Enlarged precarinal and subcarinal adenopathy. Jai Queen MD Head CT 03/15/17 0000 Signed Impressions: Service Date/Time: Wednesday, March 15, 2017 07:47 - CONCLUSION: No acute intracranial disease. Jai Queen MD Abdomen/Pelvis CT 03/15/17 0000 Signed Impressions: Service Date/Time: Wednesday, March 15, 2017 07:51 - CONCLUSION: 1. Bilateral hydronephrosis with extensive stranding in the perinephric regions greater on the left. 2. Mild circumferential wall thickening within the bladder with mild distention. 3. Postsurgical changes rectosigmoid junction. 4. Small fat containing abdominal wall hernias. Jai Queen MD Last Impressions Chest X-Ray 03/16/17 0600 Signed Impressions: Service Date/Time: Thursday, March 16, 2017 04:58 - CONCLUSION: Persisting consolidation left mid and lower lung and improving infiltrates in the lower right lung. Antonio Voss MD CT Angiography 03/15/17 0520 Signed Impressions: Service Date/Time: Wednesday, March 15, 2017 07:46 - CONCLUSION: 1. No evidence for pulmonary embolism. 2. Cardiomegaly with enlargement of pulmonary arteries likely from pulmonary arterial hypertension. 3. Bibasilar patchy densities could be atelectasis or infiltrate. 4. Mosaic attenuation which can be seen with small airway disease. 5. Enlarged precarinal and subcarinal adenopathy. Jai Queen MD Head CT 03/15/17 0000 Signed Impressions: Service Date/Time: Wednesday, March 15, 2017 07:47 - CONCLUSION: No acute intracranial disease. Jai Queen MD Abdomen/Pelvis CT 03/15/17 0000 Signed Impressions: Service Date/Time: Wednesday, March 15, 2017 07:51 - CONCLUSION: 1. Bilateral hydronephrosis with extensive stranding in the perinephric regions greater on the left. 2. Mild circumferential wall thickening within the bladder with mild distention. 3. Postsurgical changes rectosigmoid junction. 4. Small fat containing abdominal wall hernias. Jai Queen MD Last Impressions Chest X-Ray 03/15/1720 Signed Impressions: Service Date/Time: Wednesday, March 15, 2017 05:41 - CONCLUSION: Opacity in the perihilar region bilaterally suggesting either central infiltrates or adenopathy. Antonio Voss MD CT Angiography 03/15/17 0520 Signed Impressions: Service Date/Time: Wednesday, March 15, 2017 07:46 - CONCLUSION: 1. No evidence for pulmonary embolism. 2. Cardiomegaly with enlargement of pulmonary arteries likely from pulmonary arterial hypertension. 3. Bibasilar patchy densities could be atelectasis or infiltrate. 4. Mosaic attenuation which can be seen with small airway disease. 5. Enlarged precarinal and subcarinal adenopathy. Jai Queen MD Head CT 03/15/17 0000 Signed Impressions: Service Date/Time: Wednesday, March 15, 2017 07:47 - CONCLUSION: No acute intracranial disease. Jai Queen MD Abdomen/Pelvis CT 03/15/17 0000 Signed Impressions: Service Date/Time: Wednesday, March 15, 2017 07:51 - CONCLUSION: 1. Bilateral hydronephrosis with extensive stranding in the perinephric regions greater on the left. 2. Mild circumferential wall thickening within the bladder with mild distention. 3. Postsurgical changes rectosigmoid junction. 4. Small fat containing abdominal wall hernias. Jai Queen MD Objective Remarks GENERAL: Obese critically ill-appearing female , sedated and intubated. SKIN: Warm and dry. HEAD: Atraumatic. Normocephalic. EYES: Pupils equal and round. No scleral icterus. No injection or drainage. ENT: No nasal bleeding or discharge. Mucous membranes pink and moist. NECK: Trachea midline. No JVD. CARDIOVASCULAR: Irregularly irregular rhythm. RESPIRATORY: Mechanical ventilation. Clear to auscultation. Breath sounds equal bilaterally. Scattered rhonchi bilaterally, no wheezing GASTROINTESTINAL: Abdomen soft, protuberant non-tender, nondistended. No guarding. MUSCULOSKELETAL: Extremities without clubbing, cyanosis, or edema. No obvious deformities. NEUROLOGICAL: Sedated, orally intubated on mechanical ventilation, moves all 4 extremities on lightening sedation. Procedures 03/16- Renogram cancelled . Renal US performed. 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 daily CPAP trials. Bronchodilators every 6 hours scheduled and every [address] angiogram -pulmonary hypertension, no PE, enlarged precarinal and subcarinal lymphadenopathy 03/17- CXR -consolidations B/L lobes worsened Cardiovascular: A. fib RVR Hypertension Patient arrived on Cardizem infusion-heart rate 130's, discontinue for MAP less than 60. Patient's home med amiodarone 200 mg daily increased to 400 mg twice a day. Labetalol when necessary for hypertension. Off pressors currently. Last echo 01/2015- ejection fraction 55-60%. No RWMA. PAP 35 mmHg, TV mild regurg ,MV mild regurg ECHO 03/16-EF 55- 60%. No RWMA, severe mitral valve annular calcification. Moderate mitral stenosis. Trace to mild MR, moderate TR, PAS P 55.2, trivial pulmonary valve regurgitation EPS- Dr. Lubin consulted. Discussed with Dr. [place] on 03/21, plan to transition to by mouth Cardizem. Patient previously has had GI bleed on anticoagulation hence we'll hold off on any anticoagulation currently. Currently on Cardizem drip for rate control. Being diuresed Renal: Bilateral hydronephrosis-resolved Pyelonephrosis Acute kidney injury most likely secondary to septic shock Elevated creatinine Insert and maintain Gallo catheter 03/14-CT of the abdomen and pelvis-bilateral hydronephrosis, pyelonephrosis, perinephric stranding 03/16 renal ultrasound-no hydronephrosis KVO IV fluids -- Strict I/Os, monitor and replete electrolytes, follow BUN/creatinine. FEN/GI: History of colon cancer status post chemotherapy Abdominal hernia NGT -Advance tube feeds with Glucerna 1.5 @ 30cc/hr with goal of 60cc/hr. Bowel regimen Heme/ID: Septic shock Community-acquired multilobar pneumonia Lactic acidemia Bandemia-resolved Blood cultures Klebsiella Urine culture Klebsiella Follow-up sputum culture Streptococcal and legionella antigens negative ID consulted - Dr. Hansen On Levaquin/cefepime/vancomycin per ID Heme- Onc consulted regarding carinal adenopathy lymphadenopathy, patient is S/ P completion of chemotherapy 06/2016 Endocrine: Diabetes mellitus Hypothyroidism High-dose insulin medication regimen, Levemir 15 units subcutaneously twice a day Continue Levothyroxine 50 mcgs/day Obtain thyroid panel Glucose monitoring per ICU protocol -- SSI Prophylaxis: GI Prophylaxis famotidine BID DVT Prophylaxis -- SCDs Heparin 5000u Q8H Lines: Port right chest, peripheral IVs 2, left radial A-line Dispo: Discussed with THERAPIST RRT. Discussed current clinical status and plan of care with patient's at bedside and he voiced understanding and was agreeable. This patient remains critically ill with one or more organ systems which are or may become a threat to life. I have spent in excess of 30 minutes discontinuously in the care and management of this patient. This time is exclusive of procedures, and includes, but is not limited to, evaluation of the patient, review of the medical record, discussions with family, consultants, nursing staff, or respiratory therapy, and documentation in the medical record. Fernando Srinivasan MD Mar 23, 2017 10:42
--- NOTE | 2017-03-23 13:22 | HHI.NPPN ---
Subjective History of Present Illness 71-year-old female with past medical history of colon cancer, diabetes mellitus, hypertension, hypothyroidism, history of TIA, history of chemotherapy for colon cancer, was admitted to the hospital with complaint of abdominal pain, nausea and vomiting. I was called to see the patient because of elevated creatinine. The patient did not have any previous history of renal disease. Her creatinine looking back it was 0.6 last month and she came with a creatinine 1.3 and has gone up to 1.8. Additional Remarks Patient remain intubated and sedated Review of Systems General General Remarks Intubated and sedated. Objective Data Data 03/23/17 03/24/17 19:00 07:00 Intake Total 100 ml Balance 100 ml IV Total 100 ml Vital Signs Date Time Temp Pulse Resp B/P (MAP) Pulse Ox O2 Delivery O2 Flow Rate FiO2 03/23/17 12:33 98 40 03/23/17 12:24 40 03/23/17 12:00 102 03/23/17 12:00 98.7 102 12 149/70 (96) 96 152/75 (100) 03/23/17 12:00 40 03/23/17 10:00 102 03/23/17 08:00 98.5 102 22 142/75 (97) 92 177/84 (115) 03/23/17 08:00 40 03/23/17 08:00 102 03/23/17 07:31 99 40 03/23/17 06:38 107 139/69 (92) 166/144 (151) 03/23/17 06:00 95 03/23/17 04:29 96 40 03/23/17 04:00 92 03/23/17 04:00 40 03/23/17 04:00 98.9 92 12 139/69 (92) 96 149/70 (96) 03/23/17 02:00 90 03/23/17 01:20 98 40 03/23/17 00:00 89 03/23/17 00:00 40 03/23/17 00:00 98.6 89 14 142/65 (90) 97 139/65 (89) 03/22/17 22:09 98 40 03/22/17 22:00 93 03/22/17 21:30 100 40 03/22/17 20:00 91 03/22/17 20:00 40 03/22/17 20:00 98.8 91 12 152/71 (98) 98 147/67 (93) 03/22/17 18:05 40 03/22/17 18:00 93 13 160/72 (101) 98 149/68 (95) 03/22/17 18:00 93 03/22/17 18:00 93 160/72 (101) 149/68 (95) 03/22/17 17:30 79 12 151/69 (96) 98 140/65 (90) 03/22/17 17:00 85 14 139/67 (91) 98 138/64 (88) 03/22/17 16:59 97 40 03/22/17 16:30 84 12 160/74 (102) 98 148/67 (94) 03/22/17 16:00 88 03/22/17 16:00 88 12 136/72 (93) 97 141/64 (89) 03/22/17 15:30 90 03/22/17 15:00 87 03/22/17 14:33 108 03/22/17 14:30 113 03/22/17 14:00 104 03/22/17 13:34 97 40 03/22/17 13:30 93 03/22/17 13:29 98 35 -: 03/23/17 0514 03/23/17 0514 Physical Exam Eyes Eye Exam: Pupils Equal Throat Throat Exam: Oral Mucosa [place] & Moist Neck Neck Exam: Neck Supple, Trachea Midline Pulmonary Resp Exam: Rhonchi, Decreased Bases, Diminished Breath Sounds, Poor Inspiratory Effort Cardiology CV Exam: Regular, Tachycardia Gastrointestinal/Abdomen GI Exam: Soft, Non-Tender, Bowel Sounds Present, Non-Distended Extremeties Extremities Exam: Trace Edema Neurologic Neuro Exam: Sedated Assessment/Plan Assessment Summary: ASH/Acute Renal Failure, Hypotension Problem List: (1) Respiratory failure ICD Codes: J96.90 - Respiratory failure, unspecified, unspecified whether with hypoxia or hypercapnia (2) Acute kidney failure ICD Codes: N17.9 - Acute kidney failure, unspecified (3) Hypothyroidism ICD Codes: E03.9 - Hypothyroidism Status: Acute (4) Hypertension ICD Codes: I10 - Essential (primary) hypertension Status: Chronic (5) PNA (pneumonia) ICD Codes: J18.9 - Pneumonia, unspecified organism Status: Acute (6) Hyperlipidemia ICD Codes: E78.5 - Hyperlipidemia Status: Acute (7) Cancer, colon ICD Codes: C18.9 - Malignant neoplasm of colon, unspecified Status: Acute Plan Most likely has ASH due to ATN. Patient has been non oliguric. Creatinine is now stable at 1.2 Continue Bumex, has been non oliguric. Good UOP Avoid Nephrotoxins. Continue antibiotics - renal dose. Started on Vanco. and also on Cefepime. Hgb 10.9 today, continue to monitor. Hypernatremia - Na 156 today. Due to free water deficit Free water per NG started at 500cc q 4. Will add IV D5W at 100cc/hour. Given hypernatremia, free water will remain intravascular. Problem Qualifiers (1) Hypothyroidism: Qualified Codes: E03.9 - Hypothyroidism, unspecified (2) Hypertension: Qualified Codes: I10 - Essential (primary) hypertension (3) PNA (pneumonia): Qualified Codes: J18.9 - Pneumonia, unspecified organism Quincy Burns MD Mar 23, 2017 13:22
--- NOTE | 2017-03-23 13:31 | HHI.IDPN ---
Subjective Subjective Remarks Patient is a 71-year-old female, admitted to the hospital for evaluation of abdominal pain, nausea and vomiting. She apparently has been complaining of left-sided abdominal pain goes down to the lower abdomen. She also started having nausea and vomiting. There was mention of some dysuria, urgency and frequency in the last 3-4 days. Patient also apparently has been having problem with shortness of breath over the last 3 weeks, and generalized weakness and easy fatigability. There was no mention of any fever or chills or sweats. On the morning of admission, the patient was noted to be confused, and was having more shortness of breath. There is no mention of any cough or congestion, or any complaint of any chest pain. Patient was brought into the hospital for further evaluation and treatment. Patient has had imaging studies done. CTA did not show any pulmonary embolism. CT of the abdomen and pelvis showing some mild bilateral hydronephrosis and some perinephric stranding. Her UA has pyuria. 2 blood cultures on admission are now reported as growing gram-negative carmela. Her WBC is normal. Creatinine is 1.32. Patient went into significant respiratory distress, and ended up getting intubated. She has received Zosyn, and vancomycin. Neurology has been consult. Infectious disease consultation requested to evaluate the patient with severe sepsis. 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 WBC higher today All repeat BC negative so far Creatinine better Off all pressors Monitor shows atrial fib, rate high, on cardizem drip Antibiotics Levaquin Cefepime Vanco x 1 03/21, 03/22 Lines Port Past Medical History Atrial fibrillation (ablation x 2 in 2013) Eliquis stopped on 12/2015 for GI bleed Colon Cancer (sigmoid colon adenocarcinoma) Compression Fracture (12/2015 L3) Depression DM Type 2 Hyperlipidemia Hypertension Hypothyroidism TIA x 2 in 2014 Past Surgical History Abdominal surgery- exploratory laparotomy Sigmoid colectomy, low anterior resection, repair of ventral hernia, 2016 [id number] placement Previous cardiac ablation for atrial fibrillation Appendectomy Section x 2 EGD 12/2015 Flexible sigmoidoscopy 12/2015 Hernia repair Colonoscopy 2016 Allergies: Coded Allergies: codeine (Unverified Allergy, Severe, Nausea/Vomiting, 03/15/17) Uncoded Allergies: METAL (Allergy, Intermediate, hives, 03/08/16) SURGICAL STEEL (Allergy, Intermediate, hives, 03/08/16) Objective . Vital Signs Date Time Temp Pulse Resp B/P (MAP) Pulse Ox O2 Delivery O2 Flow Rate FiO2 03/23/17 12:33 98 40 03/23/17 12:24 40 03/23/17 12:00 102 03/23/17 12:00 98.7 102 12 149/70 (96) 96 152/75 (100) 03/23/17 12:00 40 03/23/17 10:00 102 03/23/17 08:00 98.5 102 22 142/75 (97) 92 177/84 (115) 03/23/17 08:00 40 03/23/17 08:00 102 03/23/17 07:31 99 40 03/23/17 06:38 107 139/69 (92) 166/144 (151) 03/23/17 06:00 95 03/23/17 04:29 96 40 03/23/17 04:00 92 03/23/17 04:00 40 03/23/17 04:00 98.9 92 12 139/69 (92) 96 149/70 (96) 03/23/17 02:00 90 03/23/17 01:20 98 40 03/23/17 00:00 89 03/23/17 00:00 40 03/23/17 00:00 98.6 89 14 142/65 (90) 97 139/65 (89) 03/22/17 22:09 98 40 03/22/17 22:00 93 03/22/17 21:30 100 40 03/22/17 20:00 91 03/22/17 20:00 40 03/22/17 20:00 98.8 91 12 152/71 (98) 98 147/67 (93) 03/22/17 18:05 40 03/22/17 18:00 93 13 160/72 (101) 98 149/68 (95) 03/22/17 18:00 93 03/22/17 18:00 93 160/72 (101) 149/68 (95) 03/22/17 17:30 79 12 151/69 (96) 98 140/65 (90) 03/22/17 17:00 85 14 139/67 (91) 98 138/64 (88) 03/22/17 16:59 97 40 9/29/17 16:30 84 12 160/74 (102) 98 148/67 (94) 03/22/17 16:00 88 03/22/17 16:00 88 12 136/72 (93) 97 141/64 (89) 03/22/17 15:30 90 03/22/17 15:00 87 03/22/17 14:33 108 03/22/17 14:30 113 03/22/17 14:00 104 03/22/17 13:34 97 40 03/22/17 13:30 93 03/22/17 13:29 98 35 03/23/17 03/23/17 03/24/17 15:00 23:00 07:00 Intake Total 100 ml Balance 100 ml IV Total 100 ml . Laboratory Tests Test 03/22/17 05:11 03/22/17 10:40 03/23/17 05:14 White Blood Count 10.9 TH/MM3 14.2 TH/MM3 Red Blood Count 2.65 MIL/MM3 3.76 MIL/MM3 Hemoglobin 7.9 GM/DL 10.4 GM/DL 10.9 GM/DL Hematocrit 24.4 % 32.5 % 34.3 % Mean Corpuscular Volume 92.0 FL 91.2 FL Mean Corpuscular Hemoglobin 29.8 PG 29.0 PG Mean Corpuscular Hemoglobin Concent 32.4 % 31.8 % Red Cell Distribution Width 15.9 % 16.2 % Platelet Count 120 TH/MM3 182 TH/MM3 Mean Platelet Volume 9.1 FL 9.2 FL Neutrophils (%) (Auto) 76.6 % 80.6 % Lymphocytes (%) (Auto) 8.7 % 9.3 % Monocytes (%) (Auto) 11.4 % 9.8 % Eosinophils (%) (Auto) 2.8 % 0.2 % Basophils (%) (Auto) 0.5 % 0.1 % Neutrophils # (Auto) 8.4 TH/MM3 11.4 TH/MM3 Lymphocytes # (Auto) 1.0 TH/MM3 1.3 TH/MM3 Monocytes # (Auto) 1.2 TH/MM3 1.4 TH/MM3 Eosinophils # (Auto) 0.3 TH/MM3 0.0 TH/MM3 Basophils # (Auto) 0.1 TH/MM3 0.0 TH/MM3 CBC Comment AUTO DIFF AUTO DIFF Differential Total Cells Counted 100 100 Neutrophils % (Manual) 81 % 65 % Band Neutrophils % 1 % 6 % Lymphocytes % 6 % 12 % Monocytes % 5 % 12 % Neutrophils # (Manual) 9.7 TH/MM3 10.8 TH/MM3 Metamyelocytes 4 % 2 % Myelocytes 3 % 3 % Nucleated Red Blood Cells 1 /100 WBC Differential Comment FINAL DIFF MANUAL FINAL DIFF MANUAL Platelet Estimate LOW NORMAL Platelet Morphology Comment NORMAL NORMAL Stomatocytes 1+ Polychromasia 2.0 % Laboratory Tests Test 03/22/17 05:11 03/23/17 05:14 Blood Urea Nitrogen 47 MG/DL 44 MG/DL Creatinine 1.32 MG/DL 1.23 MG/DL Random Glucose 273 MG/DL 164 MG/DL Calcium Level 8.3 MG/DL 8.5 MG/DL Sodium Level 152 MEQ/L 156 MEQ/L Potassium Level 3.8 MEQ/L 3.7 MEQ/L Chloride Level 111 MEQ/L 113 MEQ/L Carbon Dioxide Level 36.1 MEQ/L 38.3 MEQ/L Anion Gap 5 MEQ/L 5 MEQ/L Estimat Glomerular Filtration Rate 40 ML/MIN 43 ML/MIN Lactic Acid Level 1.3 mmol/L Total Protein 6.5 GM/DL Albumin 2.2 GM/DL Alkaline Phosphatase 128 U/L Aspartate Amino Transf (AST/SGOT) 24 U/L Alanine Aminotransferase (ALT/SGPT) 20 U/L Total Bilirubin 0.4 MG/DL Microbiology Date/Time Source Procedure Growth Status 03/21/17 21:20 Blood Other Aerobic Blood Culture - Preliminary NO GROWTH IN 2 DAYS Resulted 03/21/17 21:20 Blood Other Anaerobic Blood Culture - Preliminary NO GROWTH IN 2 DAYS Resulted 03/21/17 19:35 Blood Peripheral Aerobic Blood Culture - Preliminary NO GROWTH IN 2 DAYS Resulted 03/21/17 19:35 Blood Peripheral Anaerobic Blood Culture - Preliminary NO GROWTH IN 2 DAYS Resulted 03/21/17 18:30 Sputum Endotracheal Gram Stain - Final Complete 03/21/17 18:30 Sputum Endotracheal Sputum Culture - Final NO GROWTH IN 48 HOURS. Complete Imaging Chest X-Ray 03/21/17 0000 Signed Impressions: Service Date/Time: February 09:45 - CONCLUSION: 1. Consolidation of the left lower lobe. 2. Diffuse chronic interstitial changes mildly improved compared to previous. 3. The ET tube is somewhat high approximately 7 cm above the angelica. Quincy Resendez MD Chest X-Ray 03/20/17 0600 Signed Impressions: Service Date/Time: Monday, March 20, 2017 04:57 - CONCLUSION: 1. Endotracheal tube and nasogastric tube in good position. Basilar airspace disease increased from March 18. Samuel Lin MD Chest X-Ray 03/18/17 0600 Signed Impressions: Service Date/Time: Saturday, March 18, 2017 03:45 - CONCLUSION: 1. Apparatus in good position. Relatively stable basilar airspace disease. Samuel Lin MD Chest X-Ray 03/17/17 0000 Signed Impressions: Service Date/Time: Friday, March 17, 2017 06:22 - CONCLUSION: Persistent infiltrates consolidation left lower lung and patchy infiltrates in the central right lung. Antonio Voss MD Chest X-Ray 03/16/17 06 Signed Impressions: Service Date/Time: Thursday, March 16, 2017 04:58 - CONCLUSION: Persisting consolidation left mid and lower lung and improving infiltrates in the lower right lung. Antonio Voss MD Renal Ultrasound 03/16/17 0000 Signed Impressions: Service Date/Time: Thursday, March 16, 2017 11:27 - CONCLUSION: The hydronephrosis has resolved. Urinary bladder is decompressed.. Jose Flores MD CT Angiography 03/15/17 0520 Signed Impressions: Service Date/Time: Wednesday, March 15, 2017 07:46 - CONCLUSION: 1. No evidence for pulmonary embolism. 2. Cardiomegaly with enlargement of pulmonary arteries likely from pulmonary arterial hypertension. 3. Bibasilar patchy densities could be atelectasis or infiltrate. 4. Mosaic attenuation which can be seen with small airway disease. 5. Enlarged precarinal and subcarinal adenopathy. Jai Queen MD Head CT 03/15/17 0000 Signed Impressions: Service Date/Time: Wednesday, March 15, 2017 07:47 - CONCLUSION: No acute intracranial disease. Jai Queen MD Abdomen/Pelvis CT 03/15/17 0000 Signed Impressions: Service Date/Time: Wednesday, March 15, 2017 07:51 - CONCLUSION: 1. Bilateral hydronephrosis with extensive stranding in the perinephric regions greater on the left. 2. Mild circumferential wall thickening within the bladder with mild distention. 3. Postsurgical changes rectosigmoid junction. 4. Small fat containing abdominal wall hernias. Jai Queen MD Physical Exam GENERAL: looks comfortable on the vent, on CPAP SKIN: Warm and dry. No generalized rash HEAD: Atraumatic. Normocephalic. No temporal wasting, or tenderness. EYES: [place] conjunctiva. No petechia or hemorrhage. Pupils equal, round and reactive to light. No scleral icterus. No injection or drainage. EARS, NOSE AND THROAT: Nose without bleeding or purulent nasal discharge. She is orally intubated. NECK: Trachea midline. Supple and no meningeal signs CARDIOVASCULAR: Irregular rate and rhythm. No murmurs, rubs or gallops heard RESPIRATORY: Coarse breath sounds. Decreased at the bases. ABDOMEN: Distended, same as yesterday. Bowel sounds present and hypoactive. No guarding. EXTREMITIES: No clubbing, cyanosis. Edema both hands and feet. Well perfused and warm. NEUROLOGICAL: Sedated, no Babinski, no ankle clonus PSYCHIATRIC: Unable to assess LINE: No evidence of infection - port R upper chest : Gallo in place, urine better Assessment & Plan Remarks IMPRESSION Severe sepsis, Klebsiella urosepsis, - off pressors - has pyelonephritis (has perinephric stranding on CT and mild hydro, no stone seen, no colitis on CT, has complaints) Respiratory failure, bilateral infiltrates, ?PNA - prob multifactorial: Fluid, inflammatory, ?PNA - sputum C/S negative Known Colon CA, with (+) LN, undergoing chemo - S/P sigmoid colectomy, low anterior resection Renal insufficiency due to sepsis Atrial fib, chronic, previous ablation done and MS Leukocytosis, up again, likely reactive Recurrent fevers, ?new PNA - temps better RECOMMENDATION Continue Levaquin Follow C/S Will not give any further Vanco Continue Cefepime Follow temps Follow CBC Monitor progress Weaning as tolerated D/W RN Spoke with Rosaura Hansen MD Mar 23, 2017 13:31
[2017-03-23] MEDS: DEXTROSE 5% IN WATE 1000ML INJ 1,000 ML IV SCH ×2 (14:43→23:45)
[2017-03-23] MEDS ORDERED: [UNRECOGNIZED DRUG - OTHER] IRRIGATION SCH (15:00)
[2017-03-23] MEDS: FREE WATER OG-TUBE SCH ×3 (15:58→23:44)
[2017-03-23] MEDS: LEVOFLOXACIN 750 MG PREMIX INJ 150 ML IV SCH (17:10)
[2017-03-23] MEDS: DILTIAZEM INJ 125 MG in SODIUM CHLORIDE 0.9% INJ 100 ML IV PRN (20:51)
[2017-03-24] VITALS (20 sets, daily range): BP systolic 131–283; BP diastolic 71–283; PULSE 85–104; RESP 14–20; TEMP 97.6–98.6; O2SAT 96–100
[2017-03-24] MEDS: FREE WATER OG-TUBE SCH ×5 (04:00→20:00)
[2017-03-24] MEDS: DILTIAZEM HCL 60 MG TAB PO SCH ×3 (04:30→17:19)
[2017-03-24] MEDS: CEFEPIME INJ 1,000 MG in SODIUM CHLORIDE 0.9% INJ 100 ML IV SCH ×2 (04:30→16:22)
[2017-03-24] MEDS: LEVOTHYROXINE SODIUM 50 MCG TAB PO SCH (04:30)
[2017-03-24] MEDS: HEPARIN SODIUM - SQ 10,000 UNITS/ML VIAL SQ SCH ×3 (04:31→20:43)
[2017-03-24 05:36] LABS: AUTOMATED NEUTROPHIL # 10.7 TH/MM3 (1.8-7.7); BASOPHIL % 0.2 % (0.0-2.0); EOSINOPHIL % 0.2 % (0.0-4.0); HEMATOCRIT 31.1 % (35.0-46.0); LYMPH % 6.4 % (9.0-44.0); LYMPHOCYTE # 0.8 TH/MM3 (1.0-4.8); MEAN CELL VOLUME 91.4 FL (80.0-100.0); MEAN CORPUSCULAR HEMOGLOBIN 29.4 PG (27.0-34.0); MEAN CORPUSCULAR HGB CONC 32.2 % (32.0-36.0); MONO % 6.4 % (0.0-8.0); NEUT % 86.8 % (16.0-70.0); PLATELET COUNT 165 TH/MM3 (150-450); RED CELL DISTRIBUTION WIDTH 15.7 % (11.6-17.2); WHITE BLOOD COUNT 12.3 TH/MM3 (4.0-11.0)
[2017-03-24 05:56] LABS: HEMO FLAGS AUTO DIFF
[2017-03-24] MEDS: INSULIN ASPART SUPPLEMENTAL SCALE SQ SCH ×3 (06:00→17:21)
[2017-03-24 06:04] LABS: ANION GAP 6 MEQ/L (5-15); AST (GOT) 31 U/L (15-37); BICARBONATE 37.2 MEQ/L (21.0-32.0); BLOOD UREA NITROGEN 41 MG/DL (7-18); CHLORIDE 105 MEQ/L (98-107); GLOMERULAR FILTRATION RATE 41 ML/MIN (>89); POTASSIUM 3.7 MEQ/L (3.5-5.1); SODIUM (NA) 148 MEQ/L (136-145)
[2017-03-24 06:08] LABS: ALKALINE PHOSPHATASE 148 U/L (45-117); ALT (GPT) 21 U/L (10-53); TOTAL BILIRUBIN ADULT 0.5 MG/DL (0.2-1.0)
[2017-03-24 06:24] LABS: SCAN/DIFF AUTO DIFF CONFIRMED
[2017-03-24] MEDS: FAMOTIDINE 20 MG/2 ML VIAL IV PUSH SCH ×2 (07:53→20:42)
[2017-03-24] MEDS: DOCUSATE SODIUM 50 MG/SENNA 8.6 MG TAB PO SCH ×2 (07:54→20:42)
[2017-03-24] MEDS: AMIODARONE 200 MG TAB PO SCH ×2 (07:54→20:42)
[2017-03-24] MEDS: PRAVASTATIN SOD 40 MG TAB PO SCH (07:54)
[2017-03-24] MEDS: INSULIN DETEMIR 100 UNITS/ML VIAL SQ SCH ×2 (07:54→20:42)
[2017-03-24] MEDS: SODIUM CHLORIDE 0.9% FLUSH 10 ML FLUSH IV FLUSH SCH ×2 (07:54→20:41)
[2017-03-24] MEDS: FLUoxetine HCL LIQUID 20 MG/5 ML CUP PO SCH (07:54)
[2017-03-24] MEDS: HYDROCORTISONE SOD SUCCINATE 100 MG VIAL IV SCH (07:54)
[2017-03-24] MEDS: LACTULOSE SYRUP 20 GM/30 ML CUP NG SCH (07:54)
[2017-03-24] MEDS: BUMETANIDE INJ 1 MG/4 ML VIAL IV PUSH SCH (07:54)
[2017-03-24] MEDS: ARTIFICIAL TEARS OPTH SOLN 15 ML BTL EACH EYE SCH ×3 (07:55→17:12)
--- NOTE | 2017-03-24 09:27 | RADRPT ---
EXAM DATE/TIME: 03/24/2017 08:22 [facility] COMPARISON: CHEST SINGLE AP, March 23, 2017, 5:15. INDICATIONS : Respiratory failure. MEDICAL HISTORY : Sepsis. SURGICAL HISTORY : None. ENCOUNTER: Subsequent ACUITY: 1 week PAIN SCORE: Non-responsive. LOCATION: Bilateral chest FINDINGS: AP semiupright portable view of the chest demonstrates endotracheal tube with the tip at the level of the clavicles. NG tube in which extends beyond the imaged portion of the film. Enlarged cardiac silh [place] with left lower lobe atelectasis versus airspace consolidation. The right hemithorax is signif icant for diffuse hazy increased opacity, increased from the prior exam. Concern is for a right-sided pleural effusion. There is diffuse cephalization of pulmonary vasculature, stable. Right-sided centr al line with the tip overlying the region of the distal SVC. CONCLUSION: Appropriate positioning of the right-sided central line and endotracheal tube. The exam is consistent with congestive heart failure and pulmonary edema with worsening atelectasis/consolidation of the le ft lower lobe and likely layering right-sided pleural effusion. Tara Cook MD on March 24, 2017 at 9:23 Board Certified Radiologist. This report was verified electronically.
--- NOTE | 2017-03-24 10:00 | HHI.FPPN ---
Subjective Remarks Patient seen and examined this morning. She is intubated and sedated. She is currently on a CPAP trial and per nurse and respiratory she is doing well. Temperature 98.6, Pulse ranging between 85-100, RR ranging between 12-22, BP ranging between 123-167/57-107, Pulse ox 96, FIO2 40. He eyes were open and able to follow commands consisting of squeezing fingers and wiggling her toes. (Sumit Flor MD, R3) Objective Vitals Vital Signs Date Time Temp Pulse Resp B/P (MAP) Pulse Ox O2 Delivery O2 Flow Rate FiO2 03/24/17 09:00 40 03/24/17 08:49 96 40 03/24/17 08:00 88 03/24/17 07:52 40 03/24/17 07:52 40 03/24/17 06:25 100 163/93 (116) 150/107 (121) 03/24/17 06:00 85 03/24/17 04:29 97 40 03/24/17 04:00 40 03/24/17 04:00 98.6 95 14 167/74 (105) 98 149/103 (118) 03/24/17 04:00 95 03/24/17 02:00 92 03/24/17 01:16 98 40 03/24/17 00:00 98.1 102 14 160/75 (103) 97 283/283 (283) 03/24/17 00:00 102 03/24/17 00:00 40 03/23/17 22:00 112 03/23/17 21:45 97 40 03/23/17 20:51 109 127/62 03/23/17 20:00 99.4 104 15 144/67 94 151/75 03/23/17 20:00 105 03/23/17 20:00 40 03/23/17 18:00 104 03/23/17 18:00 104 123/57 (79) 133/68 (89) 03/23/17 16:11 96 35 03/23/17 16:00 40 03/23/17 16:00 106 03/23/17 16:00 100.1 106 19 162/70 (100) 95 132/125 (127) 03/23/17 14:00 108 03/23/17 12:33 98 40 03/23/17 12:24 40 03/23/17 12:00 102 03/23/17 12:00 98.7 102 12 149/70 (96) 96 152/75 (100) 03/23/17 12:00 40 03/23/17 10:00 102 I/O 03/23/17 03/23/17 03/23/17 03/24/17 03/24/17 03/24/17 07:00 15:00 23:00 07:00 15:00 23:00 Intake Total 730 ml 795 ml 1135.7 ml 3803 ml 232 ml Output Total 950 ml 1000 ml 1000 ml 850 ml Balance -220 ml -205 ml 135.7 ml 2953 ml 232 ml IV Total 175 ml 575.7 ml 1389 ml 232 ml Tube Feeding 430 ml 1415 ml Other 300 ml 620 ml 560 ml 999 ml Output Urine Total 950 ml 1000 ml 1000 ml 850 ml # Bowel Movements 1 1 0 (Sumit Flor MD, R3) Result Diagram: 03/24/1744703/24/178 Imaging Last Impressions Chest X-Ray 03/23/17 0600 Signed Impressions: Service Date/Time: Thursday, March 23, 2017 05:15 - CONCLUSION: 1. Basilar airspace disease with small effusions. Support apparatus in good position. Samuel Lin MD Renal Ultrasound 03/16/17 0000 Signed Impressions: Service Date/Time: Thursday, March 16, 2017 11:27 - CONCLUSION: The hydronephrosis has resolved. Urinary bladder is decompressed.. Jose Flores MD CT Angiography 03/15/17 0520 Signed Impressions: Service Date/Time: Wednesday, March 15, 2017 07:46 - CONCLUSION: 1. No evidence for pulmonary embolism. 2. Cardiomegaly with enlargement of pulmonary arteries likely from pulmonary arterial hypertension. 3. Bibasilar patchy densities could be atelectasis or infiltrate. 4. Mosaic attenuation which can be seen with small airway disease. 5. Enlarged precarinal and subcarinal adenopathy. Jai Queen MD Head CT 03/15/17 0000 Signed Impressions: Service Date/Time: Wednesday, March 15, 2017 07:47 - CONCLUSION: No acute intracranial disease. Jai Queen MD Abdomen/Pelvis CT 03/15/17 0000 Signed Impressions: Service Date/Time: Wednesday, March 15, 2017 07:51 - CONCLUSION: 1. Bilateral hydronephrosis with extensive stranding in the perinephric regions greater on the left. 2. Mild circumferential wall thickening within the bladder with mild distention. 3. Postsurgical changes rectosigmoid junction. 4. Small fat containing abdominal wall hernias. Jai Queen MD Objective Remarks GENERAL: Well-nourished, well-developed obese female. Sedated and intubated. Opens eyes spontaneously. SKIN: Warm and dry. HEAD: Normocephalic. EYES: No scleral icterus. No injection or drainage. NECK: Supple, trachea midline. No JVD or lymphadenopathy. CARDIOVASCULAR: Irregularly irregular rate and rhythm with systolic murmur RESPIRATORY: Breath sounds equal bilaterally. No accessory muscle use. GASTROINTESTINAL: Abdomen soft, non-tender, distended. Bowel sounds present. MUSCULOSKELETAL: No cyanosis, 2+ pitting edema in lower extremities bilaterally as well as edema in her hands Medications and IVs Current Medications Medications (Trade) Dose Ordered Sig/Chiqui Route Start Time Stop Time Status Last Admin (Tylenol) 650 mg Q4H PRN PO 03/15/17 10:15 03/21/17 16:23 (Synthroid) 50 mcg DAILY@0600 PO 03/16/17 06:00 03/24/17 04:30 (Pravachol) 40 mg DAILY PO 03/16/17 09:00 03/24/17 07:54 (Ativan Inj) 1 mg Q4H PRN IV PUSH 03/15/17 14:00 (NS Flush) 2 ml UNSCH PRN IV FLUSH 03/15/17 14:30 (NS Flush) 2 ml BID IV FLUSH 03/15/17 21:00 03/24/17 07:54 (Tears Naturale Opth Soln) 1 drop TID EACH EYE 03/15/17 18:00 03/24/17 07:55 (Zofran Inj) 4 mg Q6H PRN IV PUSH 03/15/17 14:30 (Duoneb Neb) 1 ampule Q2HR NEB PRN INH 03/15/17 14:30 03/19/17 22:26 Miscellaneous Information 1 Q361D XX 03/15/17 14:30 03/15/17 14:30 (Chlorhexidine 2% Cloth) Taper DAILY@04 TOP 03/16/17 04:00 03/12/18 03:59 03/23/17 23:46 (Chlorhexidine 2% Cloth) 3 pack UNSCH PRN TOP 03/15/17 14:30 (Elsa-Colace) 1 tab BID PO 03/15/17 21:00 03/24/17 07:54 (Milk Of Magnesia Liq) 30 ml Q12H PRN PO 03/15/17 14:30 (Senokot) 17.2 mg Q12H PRN PO 03/15/17 14:30 (Dulcolax Supp) 10 mg DAILY PRN RECTAL 03/15/17 14:30 (Lactulose Liq) 30 ml DAILY PRN PO 03/15/17 14:30 (D50w (Vial) Inj) 50 ml UNSCH PRN IV PUSH 03/15/17 15:15 (Glucagon Inj) 1 mg UNSCH PRN OTHER 03/15/17 15:15 (Heparin Inj) 5,000 units Q8HR SQ 03/15/17 22:00 03/24/17 04:31 (Lactulose Liq) 30 ml DAILY NG 03/15/17 16:30 03/24/17 07:54 Fentanyl Citrate 250 ml @ 5 mls/hr TITRATE PRN IV 03/15/17 16:45 03/23/17 04:47 Levofloxacin/ Dextrose 150 ml @ 100 mls/hr Q48H IV 03/15/17 18:00 03/23/17 17:10 Midazolam HCl 100 ml @ 2 mls/hr TITRATE PRN IV 03/15/17 18:00 03/17/17 20:21 Norepinephrine Bitartrate 250 ml @ 7.5 mls/hr TITRATE PRN IV 03/15/17 22:45 03/16/17 23:51 (Brethine Inj) 1 mg UNSCH PRN SQ 03/15/17 22:45 Potassium Chloride 100 ml @ 50 mls/hr Q2H PRN IV 03/16/17 09:45 03/20/17 08:12 Potassium Chloride 100 ml @ 50 mls/hr Q2H PRN IV 03/16/17 09:45 (K-Lyte Cl Eff) 50 meq UNSCH PRN PO 03/16/17 09:45 Potassium Chloride 100 ml @ 25 mls/hr UNSCH PRN IV 03/16/17 09:45 Potassium Chloride 100 ml @ 50 mls/hr Q2H PRN IV 03/16/17 09:45 03/18/17 15:46 Magnesium Sulfate 4 gm/Sodium Chloride 100 ml @ 50 mls/hr UNSCH PRN IV 03/16/17 09:45 (Mag-Ox) 800 mg UNSCH PRN PO 03/16/17 09:45 Magnesium Sulfate 2 gm/Sodium Chloride 100 ml @ 50 mls/hr UNSCH PRN IV 03/16/17 09:45 03/16/17 11:07 (K-Phos) 2,000 mg Q4H PRN PO 03/16/17 09:45 Sodium Phosphate 30 mmol/Sodium Chloride 250 ml @ 42 mls/hr UNSCH PRN IV 03/16/17 09:45 (K-Phos) 2,000 mg UNSCH PRN PO/TUBE 03/16/17 09:45 Potassium Phosphate 30 mmol/ Sodium Chloride 260 ml @ 42 mls/hr UNSCH PRN IV 03/16/17 09:45 (Cordarone) 400 mg BID PO 03/16/17 21:00 03/24/17 07:54 (Pepcid Inj) 10 mg Q12HR IV PUSH 03/17/17 09:00 03/24/17 07:53 (Trandate Inj) 20 mg Q2H PRN IV 03/19/17 12:00 03/22/17 14:31 (PROzac LIQ) 20 mg DAILY PO 03/20/17 11:00 03/24/17 07:54 Diltiazem HCl 125 mg/Sodium Chloride 125 ml @ 5 mls/hr TITRATE PRN IV 03/21/17 07:45 03/23/17 20:51 (Levemir Inj) 15 units Q12HR SQ 03/21/17 09:00 03/24/17 07:54 (Bumex Inj) 1 mg DAILY IV PUSH 03/21/17 09:00 03/24/17 07:54 Cefepime HCl 1000 mg/Sodium Chloride 100 ml @ 200 mls/hr Q12H IV 03/21/17 17:00 03/24/17 04:30 (SoluCORTEF INJ) 50 mg Taper BID IV 03/22/17 21:00 03/26/17 20:59 03/24/17 07:54 (Cardizem) 60 mg Q6HR PO 03/22/17 18:00 03/24/17 04:30 (NovoLOG SUPPLEMENTAL SCALE) 1 Q6HR SQ 03/22/17 18:00 03/24/17 06:00 (Free Water) 500 ml Q4HR OG-TUBE 03/23/17 16:00 03/24/17 07:55 (Sumit Flor MD, R3) Date of Insertion: Mar 15, 2017 (Sumit Flor MD, R3) A/P Assessment and Plan Patient is a 71 year old female with a PMH significant for colon cancer s/p chemotherapy, atrial fibrillation on Eliquis, HTN, DM type 2, and MDD who presented to the ED with abdominal pain, nausea and vomiting and was found to have severe sepsis secondary to PNA and pyelonephritis in addition to atrial fibrillation with RVR. She rapidly decompensated into respiratory failure and was intubated on 03/15, continues to be in critical condition with sepsis. Discharge Planning Unclear timetable, patient in critical condition. Will likely need a SNF once improved as she will be very weak and debilitated. wdw: Dr. Greenberg (Sumit Flor MD, R3) Attending Attestation Patient seen and examined. Case reviewed and discussed with the resident team. Agree with plan of care as discussed with me and documented in the resident note. she is definitely making progress today with her CPAP. (Lydia Greenberg MD) Problem List: (1) Sepsis due to Gram-negative organism with septic shock ICD Codes: A41.50 - Gram-negative sepsis, unspecified; R65.21 - Severe sepsis with septic shock Status: Acute Plan: Neurologic: AMS-toxic encephalopathy secondary to sepsis History of TIA x 2 Major Depressive Disorder Neurochecks per ICU protocol Patient intubated for airway protection sedation as needed with daily breaks when possible Ammonia elevated at 67 on admission, decreased to 44, continue lactulose. may not need this as her liver was likely effected from sepsis 03/15 CT brain-no intracranial abnormality Neurology consulted- Dr. Huff to consider MRI brain if needed Daily sedation vacation liquid prozac as she is still on tube feeds Respiratory: Acute Hypoxemic respiratory failure Pulmonary hypertension Carinal adenopathy 03/15 Patient intubated emergently FiO2 40, PEEP 5 today Maintain O2 sat greater than 92% Ventilator bundle Duonebs Q6H scheduled and Q2H when necessary 03/15 CT angiogram -pulmonary hypertension, no PE, enlarged precarinal and subcarinal lymphadenopathy 03/16 CXR shows persisting consolidation left mid and lower lung and improving infiltrates in the lower right lung 03/18 CXR: Stable basilar airspace disease 03/20 CXR: Increase basilar airspace disease 03/23 CXR: Basilar airspace disease with small effusions Concern for pneumonia, infectious disease on board and recommendations are appreciated Concern for worsening cardiac function resulting in some pulmonary edema. pt diuresed Pulmonary HTN not present on last echo in 03/16 Echo shows EF 55-60%, severe mitral annular calcification with moderate mitral valve stenosis, mildly dilated right atrium, mild to mod aortic valve stenosis, pulmonary arterial pressure 55.2 CPAP trial in progress Hydrocortisone 50 mg twice a day IV taper Cardiovascular: A. fib RVR Hypertension Patient Cardizem infusion-heart rate now in 90' Amiodarone 400mg PO BID. labetalol when necessary for hypertension. Cardizem 60mg q6hr for control of heart rate with Cardizem drip. cardioversion only if unable to control rate Last echo 02/05- ejection fraction 55-60%. No RWMA. APA 35 mmHg, TV mild regurg, MV mild regurg 03/16 Echo results as above EPS- Dr. Lubin consulted Renal: Bilateral hydronephrosis Pyelonephrosis Continue Jacobsen catheter, once improved can do trial to remove jacobsen 03/14-CT of the abdomen and pelvis-bilateral hydronephrosis, pyelonephrosis, perinephric stranding -- Strict I/Os Urology consulted- 03/16 renal US shows resolution of hydronephrosis, urinary bladder decompressed Creatinine stable FEN/GI: History of colon cancer status post chemotherapy and colectomy Abdominal hernia Continue tube feeds Hypokalemia on ICU electrolyte protocol. will add some free water. her sodium is creeping up as well as her chloride. she is off all regular iv fluids Heme/ID: Septic Shock due to gram negative carmela Community-acquired multilobar pneumonia Pyelonephritis Lactic acidemia Bandemia 03/15 Blood cultures growing Klebsiella pneumoniae 03/15 urine culture growing Klebsiella pneumonia 9/23 sputum culture: No growth to date 2 days legionella and streptococcus antigens negative ID consulted - Dr. Hansen, treat with Levaquin and cefepime 03/19: Urine culture: No growth to date 2 Heme- Onc consulted regarding carinal adenopathy lymphadenopathy, patient is S/ P completion of chemotherapy 09/2016. Repeat CT chest in 1-2 months to evaluate mediastinal lymph nodes as outpatient Trend lactate level 6.4->4.2->4.9->3.0->1.5->2.2->2.3 Hemoglobin and hematocrit 10.0 and 31.1 respectively Endocrine: Diabetes mellitus Hypothyroidism High-dose SSI every 6 hours Long-acting Levemir at 15 units twice a day, will monitor for hypoglycemia Continue Levothyroxine 50 mcgs/day Tube feeds with free water this patient's sodium is elevated at 156 Prophylaxis: GI Prophylaxis with famotidine BID DVT Prophylaxis with SCDs and Heparin 5000u Q8H Lines: Port right chest, peripheral IVs 2, left radial A-line (2) Pyelonephritis ICD Codes: N12 - Tubulo-interstitial nephritis, not specified as acute or chronic Status: Resolved (3) PNA (pneumonia) ICD Codes: J18.9 - Pneumonia, unspecified organism Status: Acute (4) Atrial fibrillation with rapid ventricular response ICD Codes: I48.91 - Atrial fibrillation with rapid ventricular response Status: Resolved (5) Diabetes mellitus, type II ICD Codes: E11.9 - Type 2 diabetes mellitus Status: Chronic (6) Hypertension ICD Codes: I10 - Essential (primary) hypertension Status: Chronic (7) Hypothyroidism ICD Codes: E03.9 - Hypothyroidism Status: Acute (8) Nutrition, metabolism, and development symptoms ICD Codes: R63.8 - Symptoms concerning nutrition, metabolism, and development Status: Acute (Sumit Flor MD, R3) Problem Qualifiers (1) PNA (pneumonia): Qualified Codes: J18.9 - Pneumonia, unspecified organism (2) Diabetes mellitus, type II: Qualified Codes: E11.9 - Type 2 diabetes mellitus without complications; Z79.4 - manager intermediate (current) use of insulin (3) Hypertension: Qualified Codes: I10 - Essential (primary) hypertension (4) Hypothyroidism: Qualified Codes: E03.9 - Hypothyroidism, unspecified Sumit Flor MD, R3 Mar 24, 2017 10:00 Lydia Greenberg MD Mar 24, 2017 12:11
--- NOTE | 2017-03-24 13:27 | HHI.CCPN ---
Subjective Remarks/Hospital Course This is a 71 year old female with a PMH significant for colon cancer s/p chemotherapy, atrial fibrillation previously on Eliquis discontinued for GI bleeding, HTN, DM type 2, and MDD who presented to the ED with abdominal pain, nausea and vomiting.The patient stated that she had pain in her left side this morning that radiated to her lower abdomen and caused her to have nausea and vomiting. She states that she has been short of breath for the past 3 weeks and progressively more fatigued. Her states that she has been becoming progressively weaker and sleeping excessively at times. At 3AM this morning, he noticed that she was trying to talk but "wasn't making any sense." He states that she has been so short of breath that she has been having difficulty finishing sentences without becoming short of breath. She notes dysuria, urinary urgency and frequency for the past 3-4 days. Imaging studies and laboratory studies were performed. Notably CTA of the chest reveal pulmonary hypertension and carinal lymphadenopathy. CT abdomen and pelvis revealed bilateral hydronephrosis and pyelonephrosis with perinephric stranding. Cultures were sent, the patient was noted to have bacteremia notably gram- negative rods. The patient was in A. fib RVR in the ED the patient received Cardizem bolus and was placed on a Cardizem infusion and transferred to ICU. Upon admission to ICU the patient became progressively short of breath with escalating alternation in mental status critical care medicine was consulted. The patient's heart rate at that time was in the 130s systolic pressure 140s and O2 sat high 80s. Brief discussion with purpose of emergent intubation. Subjective: 03/16: Overnight the patient continued to have hemodynamic instability, now septic shock. Patient continues in A. fib with HR low 100's. Patient on maximum doses currently of norepinephrine and vasopressin infusions. Spencer- cortisone added to medication regimen, Sodium bicarbonate infusion initiated. Imaging revealed hydronephrosis and pyelonephrosis patient seen by Dr. Larose, urine output now decreased to 150cc total over the last 12hrs, with continued elevation in creatinine. Planned renogram this a.m., to rule out obstruction with possible placement of nephrostomy tubes, and nephrology also consulted. Patient was seen by Dr. Candelario, carinal /hilar lymphadenopathy most likely not associated with carcinoma, plan for outpatient scan in 2-3 months. FiO2 was decreased to 60% overnight, ECHO pending her evaluation of cardiac status and pulmonary hypertension. 03/17: Overnight vasopressors weaned significantly, currently on lower doses. The patient continues on sodium bicarbonate infusion. Renogram canceled secondary to hemodynamic instability yesterday renal ultrasound performed revealed no hydronephrosis, creatinine continues to be elevated most likely secondary to acute kidney injury secondary to hypotension and septic shock. Nephrology consult pending. Echo revealed severe mitral valve stenosis and calcification with pulmonary hypertension and PASP 55.2 03/18: Remains sedated, orally intubated on mech vent. Off levophed. 03/19: Remains sedated, orally intubated on mechanical ventilation. Off Levophed. Blood pressure actually running high. Failed C Pap trials 03/20: Remains sedated, orally intubated on mechanical ventilation. Currently in A. fib. Off pressors. 03/21: Remains sedated, orally intubated on mechanical ventilation. In A. fib with RVR. Seen by Dr. Lubin on 03/21. Failed C Pap trials yesterday. 03/22: Remains sedated, orally intubated on mechanical ventilation. Remains in atrial fibrillation. Currently rate controlled with Cardizem drip. 03/23: Remains sedated, orally intubated on mechanical ventilation. On Cardizem drip for rate control for A. fib. 03/24: Remains drowsy off sedation, orally intubated on mechanical ventilation. Cardizem drip Her out for A. fib rate control. Objective Vital Signs Date Time Temp Pulse Resp B/P (MAP) Pulse Ox O2 Delivery O2 Flow Rate FiO2 03/24/17 12:18 96 40 03/24/17 12:00 98.0 98 20 170/85 (113) 173/88 (116) Intake and Output 03/24/17 03/24/17 03/25/17 08:00 16:00 00:00 Intake Total 3906 ml 500 ml Output Total 850 ml 1000 ml Balance 3056 ml -500 ml Result Diagram: 03/24/17 0448 03/24/17 0448 Other Results Microbiology Date/Time Source Procedure Growth Status 03/21/17 18:30 Sputum Endotracheal Gram Stain - Final Complete 03/21/17 18:30 Sputum Endotracheal Sputum Culture - Final NO GROWTH IN 48 HOURS. Complete Imaging Last 48 hours Impressions Chest X-Ray 9/27/17 0600 Signed Impressions: Service Date/Time: Monday, March 20, 2017 04:57 - CONCLUSION: 1. Endotracheal tube and nasogastric tube in good position. Basilar airspace disease increased from March 18. Samuel Lin MD Last Impressions Chest X-Ray 03/17/17 Signed Impressions: Service Date/Time: Friday, March 17, 2017 06:22 - CONCLUSION: Persistent infiltrates consolidation left lower lung and patchy infiltrates in the central right lung. Antonio Voss MD Renal Ultrasound 03/16/17 Signed Impressions: Service Date/Time: Thursday, March 16, 2017 11:27 - CONCLUSION: The hydronephrosis has resolved. Urinary bladder is decompressed.. Jose Flores MD CT Angiography 03/15/17519 Signed Impressions: Service Date/Time: Wednesday, March 15, 2017 07:46 - CONCLUSION: 1. No evidence for pulmonary embolism. 2. Cardiomegaly with enlargement of pulmonary arteries likely from pulmonary arterial hypertension. 3. Bibasilar patchy densities could be atelectasis or infiltrate. 4. Mosaic attenuation which can be seen with small airway disease. 5. Enlarged precarinal and subcarinal adenopathy. Jai Queen MD Head CT 03/15/17 Signed Impressions: Service Date/Time: Wednesday, March 15, 2017 07:47 - CONCLUSION: No acute intracranial disease. Jai Queen MD Abdomen/Pelvis CT 03/15/17 Signed Impressions: Service Date/Time: Wednesday, March 15, 2017 07:51 - CONCLUSION: 1. Bilateral hydronephrosis with extensive stranding in the perinephric regions greater on the left. 2. Mild circumferential wall thickening within the bladder with mild distention. 3. Postsurgical changes rectosigmoid junction. 4. Small fat containing abdominal wall hernias. Jai Queen MD Last Impressions Chest X-Ray 03/16/17599 Signed Impressions: Service Date/Time: Thursday, March 16, 2017 04:58 - CONCLUSION: Persisting consolidation left mid and lower lung and improving infiltrates in the lower right lung. Antonio Voss MD CT Angiography 03/15/1720 Signed Impressions: Service Date/Time: Wednesday, March 15, 2017 07:46 - CONCLUSION: 1. No evidence for pulmonary embolism. 2. Cardiomegaly with enlargement of pulmonary arteries likely from pulmonary arterial hypertension. 3. Bibasilar patchy densities could be atelectasis or infiltrate. 4. Mosaic attenuation which can be seen with small airway disease. 5. Enlarged precarinal and subcarinal adenopathy. Jai Queen MD Head CT 03/15/17 Signed Impressions: Service Date/Time: Wednesday, March 15, 2017 07:47 - CONCLUSION: No acute intracranial disease. Jai Queen MD Abdomen/Pelvis CT 03/15/17 Signed Impressions: Service Date/Time: Wednesday, March 15, 2017 07:51 - CONCLUSION: 1. Bilateral hydronephrosis with extensive stranding in the perinephric regions greater on the left. 2. Mild circumferential wall thickening within the bladder with mild distention. 3. Postsurgical changes rectosigmoid junction. 4. Small fat containing abdominal wall hernias. Jai Queen MD Last Impressions Chest X-Ray 03/15/17519 Signed Impressions: Service Date/Time: Wednesday, March 15, 2017 05:41 - CONCLUSION: Opacity in the perihilar region bilaterally suggesting either central infiltrates or adenopathy. Antonio Voss MD CT Angiography 03/15/17519 Signed Impressions: Service Date/Time: Wednesday, March 15, 2017 07:46 - CONCLUSION: 1. No evidence for pulmonary embolism. 2. Cardiomegaly with enlargement of pulmonary arteries likely from pulmonary arterial hypertension. 3. Bibasilar patchy densities could be atelectasis or infiltrate. 4. Mosaic attenuation which can be seen with small airway disease. 5. Enlarged precarinal and subcarinal adenopathy. Jai Queen MD Head CT 03/15/17 Signed Impressions: Service Date/Time: Wednesday, March 15, 2017 07:47 - CONCLUSION: No acute intracranial disease. Jai Queen MD Abdomen/Pelvis CT 03/15/17 Signed Impressions: Service Date/Time: Wednesday, March 15, 2017 07:51 - CONCLUSION: 1. Bilateral hydronephrosis with extensive stranding in the perinephric regions greater on the left. 2. Mild circumferential wall thickening within the bladder with mild distention. 3. Postsurgical changes rectosigmoid junction. 4. Small fat containing abdominal wall hernias. Jai Queen MD Objective Remarks GENERAL: Obese critically ill-appearing female , sedated and intubated. SKIN: Warm and dry. HEAD: Atraumatic. Normocephalic. EYES: Pupils equal and round. No scleral icterus. No injection or drainage. ENT: No nasal bleeding or discharge. Mucous membranes pink and moist. NECK: Trachea midline. No JVD. CARDIOVASCULAR: Irregularly irregular rhythm. RESPIRATORY: Mechanical ventilation. Clear to auscultation. Breath sounds equal bilaterally. Scattered rhonchi bilaterally, no wheezing GASTROINTESTINAL: Abdomen soft, protuberant non-tender, nondistended. No guarding. MUSCULOSKELETAL: Extremities without clubbing, cyanosis, or edema. No obvious deformities. NEUROLOGICAL: Sedated, orally intubated on mechanical ventilation, moves all 4 extremities on lightening sedation. Procedures 03/16- Renogram cancelled . Renal US performed. 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 Ammonia level obtained on lactulose 03/15 CT brain-no intracranial abnormality Daily sedation vacation- Currently GCS 11T Effexor placed on hold Respiratory: Acute Hypoxemic respiratory failure Pulmonary hypertension Carinal adenopathy 03/14 Patient intubated emergently 7.5 ET T 22 cm at the lip Ventilator bundle. daily CPAP trials. Bronchodilators every 6 hours scheduled and every [address] angiogram -pulmonary hypertension, no PE, enlarged precarinal and subcarinal lymphadenopathy 03/17- CXR -consolidations B/L lobes worsened Cardiovascular: A. fib RVR Hypertension Patient arrived on Cardizem infusion-heart rate 130's, discontinue for MAP less than 60. Patient's home med amiodarone 200 mg daily increased to 400 mg twice a day. Labetalol when necessary for hypertension. Off pressors currently. Last echo 01/2015- ejection fraction 55-60%. No RWMA. PAP 35 mmHg, TV mild regurg ,MV mild regurg ECHO 03/16-EF 55- 60%. No RWMA, severe mitral valve annular calcification. Moderate mitral stenosis. Trace to mild MR, moderate TR, PAS P 55.2, trivial pulmonary valve regurgitation EPS- Dr. Lubin consulted. Discussed with Dr. Lubin on 03/21, plan to transition to by mouth Cardizem. Patient previously has had GI bleed on anticoagulation hence we'll hold off on any anticoagulation currently. Currently on Cardizem drip for rate control. Being diuresed Renal: Bilateral hydronephrosis-resolved Pyelonephrosis Acute kidney injury most likely secondary to septic shock Elevated creatinine Hypernatremia Insert and maintain Gallo catheter 03/14-CT of the abdomen and pelvis-bilateral hydronephrosis, pyelonephrosis, perinephric stranding 03/16 renal ultrasound-no hydronephrosis KVO IV fluids -- Strict I/Os, monitor and replete electrolytes, follow BUN/creatinine. On free water for hypernatremia FEN/GI: History of colon cancer status post chemotherapy Abdominal hernia NGT -Advance tube feeds with Glucerna 1.5 @ 30cc/hr with goal of 60cc/hr. Bowel regimen Heme/ID: Septic shock Community-acquired multilobar pneumonia Lactic acidemia Bandemia-resolved Blood cultures Klebsiella Urine culture Klebsiella Follow-up sputum culture Streptococcal and legionella antigens negative ID consulted - Dr. Hansen On Levaquin/cefepime/vancomycin per ID Heme- Onc consulted regarding carinal adenopathy lymphadenopathy, patient is S/ P completion of chemotherapy 06/2016 Endocrine: Diabetes mellitus Hypothyroidism High-dose insulin medication regimen, Levemir 15 units subcutaneously twice a day Continue Levothyroxine 50 mcgs/day Obtain thyroid panel Glucose monitoring per ICU protocol -- SSI Prophylaxis: GI Prophylaxis famotidine BID DVT Prophylaxis -- SCDs Heparin 5000u Q8H Lines: Port right chest, peripheral IVs 2, left radial A-line Dispo: Discussed with INTERNATIONAL MANAGER. Discussed current clinical status and plan of care with patient's at bedside and he voiced understanding and was agreeable. This patient remains critically ill with one or more organ systems which are or may become a threat to life. I have spent in excess of 30 minutes discontinuously in the care and management of this patient. This time is exclusive of procedures, and includes, but is not limited to, evaluation of the patient, review of the medical record, discussions with family, consultants, nursing staff, or respiratory therapy, and documentation in the medical record. Fernando Srinivasan MD Mar 24, 2017 13:27
--- NOTE | 2017-03-24 16:03 | HHI.NPPN ---
Subjective History of Present Illness 71-year-old female with past medical history of colon cancer, diabetes mellitus, hypertension, hypothyroidism, history of TIA, history of chemotherapy for colon cancer, was admitted to the hospital with complaint of abdominal pain, nausea and vomiting. I was called to see the patient because of elevated creatinine. The patient did not have any previous history of renal disease. Her creatinine looking back it was 0.6 last month and she came with a creatinine 1.3 and has gone up to 1.8. Additional Remarks Patient remain intubated and sedated Review of Systems General General Remarks Intubated and sedated. Objective Data Data 03/24/17 03/25/17 19:00 07:00 Intake Total 1232 ml Output Total 1000 ml Balance 232 ml IV Total 232 ml Other 1000 ml Output Urine Total 1000 ml # Bowel Movements 1 Vital Signs Date Time Temp Pulse Resp B/P (MAP) Pulse Ox O2 Delivery O2 Flow Rate FiO2 03/24/17 14:00 95 03/24/17 12:18 96 40 03/24/17 12:00 40 03/24/17 12:00 98.0 98 20 170/85 (113) 97 173/88 (116) 03/24/17 12:00 98 03/24/17 10:00 92 03/24/17 09:00 40 03/24/17 08:49 96 40 03/24/17 08:00 88 03/24/17 08:00 98.4 88 16 157/71 (99) 97 135/92 (106) 03/24/17 07:52 40 03/24/17 07:52 40 03/24/17 06:25 100 163/93 (116) 150/107 (121) 03/24/17 06:00 85 03/24/17 04:29 97 40 03/24/17 04:00 40 03/24/17 04:00 98.6 95 14 167/74 (105) 98 149/103 (118) 03/24/17 04:00 95 03/24/17 02:00 92 03/24/17 01:16 98 40 03/24/17 00:00 98.1 102 14 160/75 (103) 97 283/283 (283) 03/24/17 00:00 102 03/24/17 00:00 40 03/23/17 22:00 112 03/23/17 21:45 97 40 03/23/17 20:51 109 127/62 03/23/17 20:00 99.4 104 15 144/67 94 151/75 03/23/17 20:00 105 03/23/17 20:00 40 03/23/17 18:00 104 03/23/17 18:00 104 123/57 (79) 133/68 (89) 03/23/17 16:11 96 35 -: 03/24/17 0448 03/24/17 0448 Physical Exam Eyes Eye Exam: Pupils Equal Throat Throat Exam: Oral Mucosa Point Blank & Moist Neck Neck Exam: Neck Supple, Trachea Midline Pulmonary Resp Exam: Rhonchi, Decreased Bases, Diminished Breath Sounds, Poor Inspiratory Effort Cardiology CV Exam: Regular, Tachycardia Gastrointestinal/Abdomen GI Exam: Soft, Non-Tender, Bowel Sounds Present, Non-Distended Integumentary Skin Exam: Intact Extremeties Extremities Exam: No Edema, Trace Edema Neurologic Neuro Exam: Sedated Assessment/Plan Assessment Summary: ASH/Acute Renal Failure, Hypotension Problem List: (1) Respiratory failure ICD Codes: J96.90 - Respiratory failure, unspecified, unspecified whether with hypoxia or hypercapnia (2) Acute kidney failure ICD Codes: N17.9 - Acute kidney failure, unspecified (3) Hypothyroidism ICD Codes: E03.9 - Hypothyroidism Status: Acute (4) Hypertension ICD Codes: I10 - Essential (primary) hypertension Status: Chronic (5) PNA (pneumonia) ICD Codes: J18.9 - Pneumonia, unspecified organism Status: Acute (6) Hyperlipidemia ICD Codes: E78.5 - Hyperlipidemia Status: Acute (7) Cancer, colon ICD Codes: C18.9 - Malignant neoplasm of colon, unspecified Status: Acute Plan Most likely has ASH due to ATN. Patient has been non oliguric. Creatinine is now stable at 1.23 -> 1.29 Continue Bumex, has been non oliguric. Good UOP Avoid Nephrotoxins. Continue antibiotics - renal dose. Started on Vanco. and also on Cefepime. Hgb 10. today, continue to monitor. Hypernatremia - Na 156 -> 148 after started on D5W and NG free water. Hyperglycemia with glucose in 300s - will change IVFs to 1/4 saline. Problem Qualifiers (1) Hypothyroidism: Qualified Codes: E03.9 - Hypothyroidism, unspecified (2) Hypertension: Qualified Codes: I10 - Essential (primary) hypertension (3) PNA (pneumonia): Qualified Codes: J18.9 - Pneumonia, unspecified organism Quincy Burns MD Mar 24, 2017 16:03
[2017-03-24] MEDS ORDERED: SODIUM CHLORIDE 23.4% INJ 38.5 MEQ in WATER STERILE FOR INJ 1,000 ML IV SCH (17:00)
[2017-03-25] VITALS (11 sets, daily range): BP systolic 135–156; BP diastolic 67–90; PULSE 89–107; RESP 13–18; TEMP 97.3–98.7; O2SAT 98–100
[2017-03-25] MEDS: FREE WATER OG-TUBE SCH ×2 (04:00)
[2017-03-25] MEDS: CHLORHEXIDINE GLUCONATE 2 % 1 PACK (2 CLOTHS) TOP SCH (04:00)
[2017-03-25] MEDS: CEFEPIME INJ 1,000 MG in SODIUM CHLORIDE 0.9% INJ 100 ML IV SCH (05:00)
[2017-03-25] MEDS: LEVOTHYROXINE SODIUM 50 MCG TAB PO SCH (06:00)
[2017-03-25] MEDS: INSULIN ASPART SUPPLEMENTAL SCALE SQ SCH ×4 (06:00→18:00)
[2017-03-25] MEDS: HYDROCORTISONE SOD SUCCINATE 100 MG VIAL IV SCH (06:00)
[2017-03-25] MEDS: DILTIAZEM HCL 60 MG TAB PO SCH ×4 (06:00→18:00)
[2017-03-25] MEDS: HEPARIN SODIUM - SQ 10,000 UNITS/ML VIAL SQ SCH ×3 (06:00→21:00)
[2017-03-25 06:05] LABS: AUTOMATED NEUTROPHIL # 12.5 TH/MM3 (1.8-7.7); BASOPHIL % 0.2 % (0.0-2.0); EOSINOPHIL # 0.1 TH/MM3 (0-0.4); EOSINOPHIL % 0.7 % (0.0-4.0); HEMATOCRIT 31.8 % (35.0-46.0); HEMO FLAGS DIFF FINAL; LYMPH % 7.7 % (9.0-44.0); LYMPHOCYTE # 1.1 TH/MM3 (1.0-4.8); MEAN CELL VOLUME 89.3 FL (80.0-100.0); MEAN CORPUSCULAR HEMOGLOBIN 29.2 PG (27.0-34.0); MEAN CORPUSCULAR HGB CONC 32.7 % (32.0-36.0); NEUT % 84.4 % (16.0-70.0); PLATELET COUNT 185 TH/MM3 (150-450); RED BLOOD COUNT 3.56 MIL/MM3 (4.00-5.30); RED CELL DISTRIBUTION WIDTH 14.9 % (11.6-17.2); WHITE BLOOD COUNT 14.9 TH/MM3 (4.0-11.0)
[2017-03-25 06:15] LABS: ALKALINE PHOSPHATASE 152 U/L (45-117); ALT (GPT) 31 U/L (10-53); ANION GAP 5 MEQ/L (5-15); AST (GOT) 45 U/L (15-37); BLOOD UREA NITROGEN 37 MG/DL (7-18); CHLORIDE 102 MEQ/L (98-107); GLOMERULAR FILTRATION RATE 49 ML/MIN (>89); POTASSIUM 3.4 MEQ/L (3.5-5.1); SODIUM (NA) 145 MEQ/L (136-145); TOTAL BILIRUBIN ADULT 0.5 MG/DL (0.2-1.0)
--- NOTE | 2017-03-25 08:39 | HHI.CCPN ---
Subjective Remarks/Hospital Course This is a 71 year old female with a PMH significant for colon cancer s/p chemotherapy, atrial fibrillation previously on Eliquis discontinued for GI bleeding, HTN, DM type 2, and MDD who presented to the ED with abdominal pain, nausea and vomiting.The patient stated that she had pain in her left side this morning that radiated to her lower abdomen and caused her to have nausea and vomiting. She states that she has been short of breath for the past 3 weeks and progressively more fatigued. Her states that she has been becoming progressively weaker and sleeping excessively at times. At 3AM this morning, he noticed that she was trying to talk but "wasn't making any sense." He states that she has been so short of breath that she has been having difficulty finishing sentences without becoming short of breath. She notes dysuria, urinary urgency and frequency for the past 3-4 days. Imaging studies and laboratory studies were performed. Notably CTA of the chest reveal pulmonary hypertension and carinal lymphadenopathy. CT abdomen and pelvis revealed bilateral hydronephrosis and pyelonephrosis with perinephric stranding. Cultures were sent, the patient was noted to have bacteremia notably gram- negative rods. The patient was in A. fib RVR in the ED the patient received Cardizem bolus and was placed on a Cardizem infusion and transferred to ICU. Upon admission to ICU the patient became progressively short of breath with escalating alternation in mental status critical care medicine was consulted. The patient's heart rate at that time was in the 130s systolic pressure 140s and O2 sat high 80s. Brief discussion with purpose of emergent intubation. Subjective: 03/16: Overnight the patient continued to have hemodynamic instability, now septic shock. Patient continues in A. fib with HR low 100's. Patient on maximum doses currently of norepinephrine and vasopressin infusions. [place]- cortisone added to medication regimen, Sodium bicarbonate infusion initiated. Imaging revealed hydronephrosis and pyelonephrosis patient seen by Dr. Larose, urine output now decreased to 150cc total over the last 12hrs, with continued elevation in creatinine. Planned renogram this a.m., to rule out obstruction with possible placement of nephrostomy tubes, and nephrology also consulted. Patient was seen by Dr. Candelario, carinal /hilar lymphadenopathy most likely not associated with carcinoma, plan for outpatient scan in 2-3 months. FiO2 was decreased to 60% overnight, ECHO pending her evaluation of cardiac status and pulmonary hypertension. 03/17: Overnight vasopressors weaned significantly, currently on lower doses. The patient continues on sodium bicarbonate infusion. Renogram canceled secondary to hemodynamic instability yesterday renal ultrasound performed revealed no hydronephrosis, creatinine continues to be elevated most likely secondary to acute kidney injury secondary to hypotension and septic shock. Nephrology consult pending. Echo revealed severe mitral valve stenosis and calcification with pulmonary hypertension and PASP 55.2 03/18: Remains sedated, orally intubated on mech vent. Off levophed. 03/19: Remains sedated, orally intubated on mechanical ventilation. Off Levophed. Blood pressure actually running high. Failed C Pap trials 03/20: Remains sedated, orally intubated on mechanical ventilation. Currently in A. fib. Off pressors. 03/21: Remains sedated, orally intubated on mechanical ventilation. In A. fib with RVR. Seen by Dr. Lubin on 03/21. Failed C Pap trials yesterday. 03/22: Remains sedated, orally intubated on mechanical ventilation. Remains in atrial fibrillation. Currently rate controlled with Cardizem drip. 03/23: Remains sedated, orally intubated on mechanical ventilation. On Cardizem drip for rate control for A. fib. 03/24: Remains drowsy off sedation, orally intubated on mechanical ventilation. Cardizem drip Her out for A. fib rate control. 03/25: Drowsy, easily arousable, squeezes my hand with her hands as well as wiggles her toes on command. Off Cardizem drip currently. Remains in A. fib rate controlled with by mouth Cardizem and amiodarone. Objective Vital Signs Date Time Temp Pulse Resp B/P (MAP) Pulse Ox O2 Delivery O2 Flow Rate FiO2 03/25/17 06:00 95 03/25/17 04:25 98 40 03/25/17 04:00 98.6 15 135/80 (98) Intake and Output 03/25/17 03/25/17 03/26/17 08:00 16:00 00:00 Intake Total 2512 ml Output Total 1360 ml Balance 1152 ml Result Diagram: 03/25/17 0520 03/25/17 0520 Other Results Laboratory Tests Test 03/25/17 05:20 White Blood Count 14.9 TH/MM3 Red Blood Count 3.56 MIL/MM3 Hemoglobin 10.4 GM/DL Hematocrit 31.8 % Mean Corpuscular Volume 89.3 FL Mean Corpuscular Hemoglobin 29.2 PG Mean Corpuscular Hemoglobin Concent 32.7 % Red Cell Distribution Width 14.9 % Platelet Count 185 TH/MM3 Mean Platelet Volume 9.5 FL Neutrophils (%) (Auto) 84.4 % Lymphocytes (%) (Auto) 7.7 % Monocytes (%) (Auto) 7.0 % Eosinophils (%) (Auto) 0.7 % Basophils (%) (Auto) 0.2 % Neutrophils # (Auto) 12.5 TH/MM3 Lymphocytes # (Auto) 1.1 TH/MM3 Monocytes # (Auto) 1.0 TH/MM3 Eosinophils # (Auto) 0.1 TH/MM3 Basophils # (Auto) 0.0 TH/MM3 CBC Comment DIFF FINAL Differential Comment Blood Urea Nitrogen 37 MG/DL Creatinine 1.11 MG/DL Random Glucose 142 MG/DL Total Protein 6.1 GM/DL Albumin 2.0 GM/DL Calcium Level 8.2 MG/DL Alkaline Phosphatase 152 U/L Aspartate Amino Transf (AST/SGOT) 45 U/L Alanine Aminotransferase (ALT/SGPT) 31 U/L Total Bilirubin 0.5 MG/DL Sodium Level 145 MEQ/L Potassium Level 3.4 MEQ/L Chloride Level 102 MEQ/L Carbon Dioxide Level 38.0 MEQ/L Anion Gap 5 MEQ/L Estimat Glomerular Filtration Rate 49 ML/MIN Imaging Last 48 hours Impressions Chest X-Ray 03/20/17 0600 Signed Impressions: Service Date/Time: Monday, March 20, 2017 04:57 - CONCLUSION: 1. Endotracheal tube and nasogastric tube in good position. Basilar airspace disease increased from March 18. Samuel Lin MD Last Impressions Chest X-Ray 03/17/17 0000 Signed Impressions: Service Date/Time: Friday, March 17, 2017 06:22 - CONCLUSION: Persistent infiltrates consolidation left lower lung and patchy infiltrates in the central right lung. Antonio Voss MD Renal Ultrasound 03/16/17 0000 Signed Impressions: Service Date/Time: Thursday, March 16, 2017 11:27 - CONCLUSION: The hydronephrosis has resolved. Urinary bladder is decompressed.. Jose Flores MD CT Angiography 03/15/17 0520 Signed Impressions: Service Date/Time: Wednesday, March 15, 2017 07:46 - CONCLUSION: 1. No evidence for pulmonary embolism. 2. Cardiomegaly with enlargement of pulmonary arteries likely from pulmonary arterial hypertension. 3. Bibasilar patchy densities could be atelectasis or infiltrate. 4. Mosaic attenuation which can be seen with small airway disease. 5. Enlarged precarinal and subcarinal adenopathy. Jai Queen MD Head CT 03/15/17 0000 Signed Impressions: Service Date/Time: Wednesday, March 15, 2017 07:47 - CONCLUSION: No acute intracranial disease. Jai Queen MD Abdomen/Pelvis CT 03/15/17 0000 Signed Impressions: Service Date/Time: Wednesday, March 15, 2017 07:51 - CONCLUSION: 1. Bilateral hydronephrosis with extensive stranding in the perinephric regions greater on the left. 2. Mild circumferential wall thickening within the bladder with mild distention. 3. Postsurgical changes rectosigmoid junction. 4. Small fat containing abdominal wall hernias. Jai Queen MD Last Impressions Chest X-Ray 03/16/17 0600 Signed Impressions: Service Date/Time: Thursday, March 16, 2017 04:58 - CONCLUSION: Persisting consolidation left mid and lower lung and improving infiltrates in the lower right lung. Antonio Voss MD CT Angiography 03/15/17 0520 Signed Impressions: Service Date/Time: Wednesday, March 15, 2017 07:46 - CONCLUSION: 1. No evidence for pulmonary embolism. 2. Cardiomegaly with enlargement of pulmonary arteries likely from pulmonary arterial hypertension. 3. Bibasilar patchy densities could be atelectasis or infiltrate. 4. Mosaic attenuation which can be seen with small airway disease. 5. Enlarged precarinal and subcarinal adenopathy. Jai Queen MD Head CT 03/15/17 0000 Signed Impressions: Service Date/Time: Wednesday, March 15, 2017 07:47 - CONCLUSION: No acute intracranial disease. Jai Queen MD Abdomen/Pelvis CT 03/15/17 0000 Signed Impressions: Service Date/Time: Wednesday, March 15, 2017 07:51 - CONCLUSION: 1. Bilateral hydronephrosis with extensive stranding in the perinephric regions greater on the left. 2. Mild circumferential wall thickening within the bladder with mild distention. 3. Postsurgical changes rectosigmoid junction. 4. Small fat containing abdominal wall hernias. Jai Queen MD Last Impressions Chest X-Ray 03/15/17519 Signed Impressions: Service Date/Time: Wednesday, March 15, 2017 05:41 - CONCLUSION: Opacity in the perihilar region bilaterally suggesting either central infiltrates or adenopathy. Antonio Voss MD CT Angiography 03/15/17519 Signed Impressions: Service Date/Time: Wednesday, March 15, 2017 07:46 - CONCLUSION: 1. No evidence for pulmonary embolism. 2. Cardiomegaly with enlargement of pulmonary arteries likely from pulmonary arterial hypertension. 3. Bibasilar patchy densities could be atelectasis or infiltrate. 4. Mosaic attenuation which can be seen with small airway disease. 5. Enlarged precarinal and subcarinal adenopathy. Jia Queen MD Head CT 03/15/17 0000 Signed Impressions: Service Date/Time: Wednesday, March 15, 2017 07:47 - CONCLUSION: No acute intracranial disease. Jai Queen MD Abdomen/Pelvis CT 03/15/17 0000 Signed Impressions: Service Date/Time: Wednesday, March 15, 2017 07:51 - CONCLUSION: 1. Bilateral hydronephrosis with extensive stranding in the perinephric regions greater on the left. 2. Mild circumferential wall thickening within the bladder with mild distention. 3. Postsurgical changes rectosigmoid junction. 4. Small fat containing abdominal wall hernias. Jai Queen MD Objective Remarks GENERAL: Obese critically ill-appearing female , sedated and intubated. SKIN: Warm and dry. HEAD: Atraumatic. Normocephalic. EYES: Pupils equal and round. No scleral icterus. No injection or drainage. ENT: No nasal bleeding or discharge. Mucous membranes pink and moist. NECK: Trachea midline. No JVD. CARDIOVASCULAR: Irregularly irregular rhythm. RESPIRATORY: Mechanical ventilation. Clear to auscultation. Breath sounds equal bilaterally. Scattered rhonchi bilaterally, no wheezing GASTROINTESTINAL: Abdomen soft, protuberant non-tender, nondistended. No guarding. MUSCULOSKELETAL: Extremities without clubbing, cyanosis, or edema. No obvious deformities. NEUROLOGICAL: Sedated, orally intubated on mechanical ventilation, moves all 4 extremities on lightening sedation. Procedures 03/16- Renogram cancelled . Renal US performed. 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 Ammonia level obtained on lactulose 03/15 CT brain-no intracranial abnormality Daily sedation vacation Effexor placed on hold Respiratory: Acute Hypoxemic respiratory failure Pulmonary hypertension Carinal adenopathy 03/14 Patient intubated emergently 7.5 ET T 22 cm at the lip Ventilator bundle. daily CPAP trials. Bronchodilators every 6 hours scheduled and every [address] angiogram -pulmonary hypertension, no PE, enlarged precarinal and subcarinal lymphadenopathy 03/17- CXR -consolidations B/L lobes worsened Cardiovascular: A. fib RVR Hypertension Patient arrived on Cardizem infusion-heart rate 130's, discontinue for MAP less than 60. Patient's home med amiodarone 200 mg daily increased to 400 mg twice a day. Labetalol when necessary for hypertension. Off pressors currently. Last echo 01/2015- ejection fraction 55-60%. No RWMA. PAP 35 mmHg, TV mild regurg ,MV mild regurg ECHO 03/16-EF 55- 60%. No RWMA, severe mitral valve annular calcification. Moderate mitral stenosis. Trace to mild MR, moderate TR, PAS P 55.2, trivial pulmonary valve regurgitation EPS- Dr. Lubin consulted. Discussed with Dr. Lubin on 03/21, plan to transition to by mouth Cardizem. Patient previously has had GI bleed on anticoagulation hence we'll hold off on any anticoagulation currently. Currently off Cardizem drip for rate control, remains on by mouth Cardizem. Defer starting aspirin for stroke prophylaxis to cardiology-Dr. Lubin. Being diuresed. Renal: Bilateral hydronephrosis-resolved Pyelonephrosis Acute kidney injury most likely secondary to septic shock Elevated creatinine Hypernatremia Insert and maintain Gallo catheter 03/14-CT of the abdomen and pelvis-bilateral hydronephrosis, pyelonephrosis, perinephric stranding 03/16 renal ultrasound-no hydronephrosis KVO IV fluids. On Bumex 1 mg IV daily to mobilize fluid -- Strict I/Os, monitor and replete electrolytes, follow BUN/creatinine. Hypernatremia improved with free water which is now being stopped. FEN/GI: History of colon cancer status post chemotherapy Abdominal hernia NGT -on tube feeds with Glucerna 1.5 @ 30cc/hr with goal of 60cc/hr. Bowel regimen Heme/ID: Septic shock Community-acquired multilobar pneumonia Lactic acidemia Bandemia-resolved Blood cultures Klebsiella Urine culture Klebsiella Follow-up sputum culture Streptococcal and legionella antigens negative ID consulted - Dr. Hansen On Levaquin/cefepime/vancomycin per ID Heme- Onc consulted regarding carinal adenopathy lymphadenopathy, patient is S/ P completion of chemotherapy 06/2016 Endocrine: Diabetes mellitus Hypothyroidism High-dose insulin medication regimen, Levemir 15 units subcutaneously twice a day -hold for anticipated extubation as tube feeds will be held until tolerating by mouth. Continue Levothyroxine 50 mcgs/day Obtain thyroid panel Glucose monitoring per ICU protocol -- SSI Prophylaxis: GI Prophylaxis famotidine BID DVT Prophylaxis -- SCDs Heparin 5000u Q8H Lines: Port right chest, peripheral IVs 2, left radial A-line Dispo: Discussed with DIE TURNER. Discussed current clinical status and plan of care with patient's at bedside and he voiced understanding and was agreeable. This patient remains critically ill with one or more organ systems which are or may become a threat to life. I have spent in excess of 30 minutes discontinuously in the care and management of this patient. This time is exclusive of procedures, and includes, but is not limited to, evaluation of the patient, review of the medical record, discussions with family, consultants, nursing staff, or respiratory therapy, and documentation in the medical record. Fernando Srinivasan MD Mar 25, 2017 08:39
[2017-03-25] MEDS: SODIUM CHLORIDE 0.9% FLUSH 10 ML FLUSH IV FLUSH SCH ×2 (09:00→21:00)
[2017-03-25] MEDS: ARTIFICIAL TEARS OPTH SOLN 15 ML BTL EACH EYE SCH ×3 (09:02→18:00)
[2017-03-25] MEDS: FLUoxetine HCL LIQUID 20 MG/5 ML CUP PO SCH (09:03)
[2017-03-25] MEDS: LACTULOSE SYRUP 20 GM/30 ML CUP NG SCH (09:03)
[2017-03-25] MEDS: PRAVASTATIN SOD 40 MG TAB PO SCH (09:04)
[2017-03-25] MEDS: AMIODARONE 200 MG TAB PO SCH ×2 (09:05→21:00)
[2017-03-25] MEDS: DOCUSATE SODIUM 50 MG/SENNA 8.6 MG TAB PO SCH ×2 (09:05→21:00)
[2017-03-25] MEDS: BUMETANIDE INJ 1 MG/4 ML VIAL IV PUSH SCH (09:08)
[2017-03-25] MEDS: FAMOTIDINE 20 MG/2 ML VIAL IV PUSH SCH ×2 (09:08→21:00)
--- NOTE | 2017-03-25 09:14 | HHI.IDPN ---
Subjective Subjective Remarks Patient is a 71-year-old female, admitted to the hospital for evaluation of abdominal pain, nausea and vomiting. She apparently has been complaining of left-sided abdominal pain goes down to the lower abdomen. She also started having nausea and vomiting. There was mention of some dysuria, urgency and frequency in the last 3-4 days. Patient also apparently has been having problem with shortness of breath over the last 3 weeks, and generalized weakness and easy fatigability. There was no mention of any fever or chills or sweats. On the morning of admission, the patient was noted to be confused, and was having more shortness of breath. There is no mention of any cough or congestion, or any complaint of any chest pain. Patient was brought into the hospital for further evaluation and treatment. Patient has had imaging studies done. CTA did not show any pulmonary embolism. CT of the abdomen and pelvis showing some mild bilateral hydronephrosis and some perinephric stranding. Her UA has pyuria. 2 blood cultures on admission are now reported as growing gram-negative carmela. Her WBC is normal. Creatinine is 1.32. Patient went into significant respiratory distress, and ended up getting intubated. She has received Zosyn, and vancomycin. Neurology has been consult. Infectious disease consultation requested to evaluate the patient with severe sepsis. Notes reviewed D/W RN Off sedation Tolerating CPAP Temps ok Following commands WBC higher today All repeat BC negative so far C/S negative CXR C/W pulmonary edema Creatinine better Monitor shows atrial fib, rate high, on cardizem drip Antibiotics Levaquin Cefepime Lines Port Past Medical History Reviewed Allergies: Coded Allergies: codeine (Unverified Allergy, Severe, Nausea/Vomiting, 03/15/17) Uncoded Allergies: METAL (Allergy, Intermediate, hives, 03/08/16) SURGICAL STEEL (Allergy, Intermediate, hives, 03/08/16) Objective . Vital Signs Date Time Temp Pulse Resp B/P (MAP) Pulse Ox O2 Delivery O2 Flow Rate FiO2 03/25/17 08:37 100 40 03/25/17 08:00 40 03/25/17 06:00 95 03/25/17 04:25 98 40 03/25/17 04:00 95 03/25/17 04:00 98.6 95 15 135/80 (98) 98 03/25/17 04:00 40 03/25/17 02:00 102 03/25/17 00:30 100 40 03/25/17 00:00 98 03/25/17 00:00 98.5 98 13 150/71 (97) 98 03/25/17 00:00 40 03/24/17 22:00 95 03/24/17 21:35 100 40 03/24/17 20:02 98 40 03/24/17 20:00 99 03/24/17 20:00 40 03/24/17 20:00 97.6 99 14 149/75 (99) 98 03/24/17 18:00 94 03/24/17 16:53 96 40 03/24/17 16:00 98.2 104 17 131/92 (105) 99 171/91 (117) 03/24/17 16:00 104 03/24/17 16:00 40 03/24/17 14:00 95 03/24/17 12:18 96 40 03/24/17 12:00 40 03/24/17 12:00 98.0 98 20 170/85 (113) 97 173/88 (116) 03/24/17 12:00 98 03/24/17 10:00 92 . Laboratory Tests Test 03/24/17 04:48 03/25/17 05:20 White Blood Count 12.3 TH/MM3 14.9 TH/MM3 Red Blood Count 3.40 MIL/MM3 3.56 MIL/MM3 Hemoglobin 10.0 GM/DL 10.4 GM/DL Hematocrit 31.1 % 31.8 % Mean Corpuscular Volume 91.4 FL 89.3 FL Mean Corpuscular Hemoglobin 29.4 PG 29.2 PG Mean Corpuscular Hemoglobin Concent 32.2 % 32.7 % Red Cell Distribution Width 15.7 % 14.9 % Platelet Count 165 TH/MM3 185 TH/MM3 Mean Platelet Volume 9.6 FL 9.5 FL Neutrophils (%) (Auto) 86.8 % 84.4 % Lymphocytes (%) (Auto) 6.4 % 7.7 % Monocytes (%) (Auto) 6.4 % 7.0 % Eosinophils (%) (Auto) 0.2 % 0.7 % Basophils (%) (Auto) 0.2 % 0.2 % Neutrophils # (Auto) 10.7 TH/MM3 12.5 TH/MM3 Lymphocytes # (Auto) 0.8 TH/MM3 1.1 TH/MM3 Monocytes # (Auto) 0.8 TH/MM3 1.0 TH/MM3 Eosinophils # (Auto) 0.0 TH/MM3 0.1 TH/MM3 Basophils # (Auto) 0.0 TH/MM3 0.0 TH/MM3 CBC Comment AUTO DIFF DIFF FINAL Differential Comment AUTO DIFF CONFIRMED Laboratory Tests Test 03/24/17 04:48 03/25/17 05:20 Blood Urea Nitrogen 41 MG/DL 37 MG/DL Creatinine 1.29 MG/DL 1.11 MG/DL Random Glucose 341 MG/DL 142 MG/DL Total Protein 5.9 GM/DL 6.1 GM/DL Albumin 1.9 GM/DL 2.0 GM/DL Calcium Level 8.2 MG/DL 8.2 MG/DL Alkaline Phosphatase 148 U/L 152 U/L Aspartate Amino Transf (AST/SGOT) 31 U/L 45 U/L Alanine Aminotransferase (ALT/SGPT) 21 U/L 31 U/L Total Bilirubin 0.5 MG/DL 0.5 MG/DL Sodium Level 148 MEQ/L 145 MEQ/L Potassium Level 3.7 MEQ/L 3.4 MEQ/L Chloride Level 105 MEQ/L 102 MEQ/L Carbon Dioxide Level 37.2 MEQ/L 38.0 MEQ/L Anion Gap 6 MEQ/L 5 MEQ/L Estimat Glomerular Filtration Rate 41 ML/MIN 49 ML/MIN Imaging Chest X-Ray 03/21/17 0000 Signed Impressions: Service Date/Time: February 09:45 - CONCLUSION: 1. Consolidation of the left lower lobe. 2. Diffuse chronic interstitial changes mildly improved compared to previous. 3. The ET tube is somewhat high approximately 7 cm above the angelica. Quincy Resendez MD Chest X-Ray 03/20/17 0600 Signed Impressions: Service Date/Time: Monday, March 20, 2017 04:57 - CONCLUSION: 1. Endotracheal tube and nasogastric tube in good position. Basilar airspace disease increased from March 18. Samuel Lin MD Chest X-Ray 03/18/17 0600 Signed Impressions: Service Date/Time: Saturday, March 18, 2017 03:45 - CONCLUSION: 1. Apparatus in good position. Relatively stable basilar airspace disease. Samuel Lin MD Chest X-Ray 03/17/17 0000 Signed Impressions: Service Date/Time: Friday, March 17, 2017 06:22 - CONCLUSION: Persistent infiltrates consolidation left lower lung and patchy infiltrates in the central right lung. Antonio Voss MD Chest X-Ray 03/16/17 0600 Signed Impressions: Service Date/Time: Thursday, March 16, 2017 04:58 - CONCLUSION: Persisting consolidation left mid and lower lung and improving infiltrates in the lower right lung. Antonio Voss MD Renal Ultrasound 03/16/17 0000 Signed Impressions: Service Date/Time: Thursday, March 16, 2017 11:27 - CONCLUSION: The hydronephrosis has resolved. Urinary bladder is decompressed.. Jose Flores MD CT Angiography 03/15/17 0520 Signed Impressions: Service Date/Time: Wednesday, March 15, 2017 07:46 - CONCLUSION: 1. No evidence for pulmonary embolism. 2. Cardiomegaly with enlargement of pulmonary arteries likely from pulmonary arterial hypertension. 3. Bibasilar patchy densities could be atelectasis or infiltrate. 4. Mosaic attenuation which can be seen with small airway disease. 5. Enlarged precarinal and subcarinal adenopathy. Jai Queen MD Head CT 03/15/17 0000 Signed Impressions: Service Date/Time: Wednesday, March 15, 2017 07:47 - CONCLUSION: No acute intracranial disease. Jai Queen MD Abdomen/Pelvis CT 03/15/17 0000 Signed Impressions: Service Date/Time: Wednesday, March 15, 2017 07:51 - CONCLUSION: 1. Bilateral hydronephrosis with extensive stranding in the perinephric regions greater on the left. 2. Mild circumferential wall thickening within the bladder with mild distention. 3. Postsurgical changes rectosigmoid junction. 4. Small fat containing abdominal wall hernias. Jai Queen MD Physical Exam GENERAL: looks comfortable on the vent, on CPAP. Awake and following all commands SKIN: Warm and dry. No generalized rash HEAD: Atraumatic. Normocephalic. No temporal wasting, or tenderness. EYES: Iron Post conjunctiva. No petechia or hemorrhage. Pupils equal, round and reactive to light. No scleral icterus. No injection or drainage. EARS, NOSE AND THROAT: Nose without bleeding or purulent nasal discharge. She is orally intubated. NECK: Trachea midline. Supple and no meningeal signs CARDIOVASCULAR: Irregular rate and rhythm. No murmurs, rubs or gallops heard RESPIRATORY: Coarse breath sounds. Decreased at the bases. ABDOMEN: Distended, not tender, not distended. Bowel sounds present and hypoactive. No guarding. EXTREMITIES: No clubbing, cyanosis. Edema both hands and feet. Well perfused and warm. NEUROLOGICAL: Grossly non-focal PSYCHIATRIC: Cooperative LINE: No evidence of infection - port R upper chest : Gallo in place, urine better Assessment & Plan Remarks IMPRESSION Severe sepsis, Klebsiella urosepsis, - off pressors - has pyelonephritis (has perinephric stranding on CT and mild hydro, no stone seen, no colitis on CT, has complaints) Respiratory failure, bilateral infiltrates, ?PNA - prob multifactorial: Fluid, inflammatory, ?PNA - sputum C/S negative Known Colon CA, with (+) LN, undergoing chemo - S/P sigmoid colectomy, low anterior resection Renal insufficiency due to sepsis Atrial fib, chronic, previous ablation done and MS Leukocytosis, up again, likely reactive Recurrent fevers, ?new PNA - temps better RECOMMENDATION Continue Levaquin Follow C/S Stop Cefepime Follow temps Follow CBC Monitor progress Weaning as tolerated D/W RN Spoke with Rosaura Hansen MD Mar 25, 2017 09:14
[2017-03-25] MEDS: LEVOFLOXACIN 750 MG TAB PO SCH (10:00)
--- NOTE | 2017-03-25 10:22 | HHI.FPPN ---
Subjective Remarks Patient seen and examined this morning. She is off sedation and able to follow commands. Currently intubated and on CPAP with attempt at extubation planned for today. Temp 98.6, Pulse ranging between 95-102, RR ranging 13-20, BP ranging 135-171/71-92, Pulse ox 98 and FIO2 at 40. She denies any pain and is able to squeeze my finger and wiggle her toes on command. (Sumit Flor MD, R3) Objective Vitals Vital Signs Date Time Temp Pulse Resp B/P (MAP) Pulse Ox O2 Delivery O2 Flow Rate FiO2 03/25/17 08:37 100 40 03/25/17 08:00 40 03/25/17 06:00 95 03/25/17 04:25 98 40 03/25/17 04:00 95 03/25/17 04:00 98.6 95 15 135/80 (98) 98 03/25/17 04:00 40 03/25/17 02:00 102 03/25/17 00:30 100 40 03/25/17 00:00 98 03/25/17 00:00 98.5 98 13 150/71 (97) 98 03/25/17 00:00 40 03/24/17 22:00 95 03/24/17 21:35 100 40 03/24/17 20:02 98 40 03/24/17 20:00 99 03/24/17 20:00 40 03/24/17 20:00 97.6 99 14 149/75 (99) 98 03/24/17 18:00 94 03/24/17 16:53 96 40 03/24/17 16:00 98.2 104 17 131/92 (105) 99 171/91 (117) 03/24/17 16:00 104 03/24/17 16:00 40 03/24/17 14:00 95 03/24/17 12:18 96 40 03/24/17 12:00 40 03/24/17 12:00 98.0 98 20 170/85 (113) 97 173/88 (116) 03/24/17 12:00 98 I/O 03/24/17 03/24/17 03/24/17 03/25/17 03/25/17 03/25/17 07:00 15:00 23:00 07:00 15:00 23:00 Intake Total 3803 ml 1232 ml 1764 ml 3012 ml Output Total 850 ml 1000 ml 1500 ml 1360 ml Balance 2953 ml 232 ml 264 ml 1652 ml IV Total 1389 ml 232 ml 446 ml 1095 ml Tube Feeding 1415 ml 198 ml 917 ml Other 999 ml 1000 ml 1120 ml 1000 ml Output Urine Total 850 ml 1000 ml 1500 ml 1360 ml # Bowel Movements 0 1 (Sumit Flor MD, R3) Result Diagram: 03/25/1751903/25/17519 Imaging Last Impressions Chest X-Ray 03/24/17 Signed Impressions: Service Date/Time: Friday, March 24, 2017 08:22 - CONCLUSION: Appropriate positioning of the right-sided central line and endotracheal tube. The exam is consistent with congestive heart failure and pulmonary edema with worsening atelectasis/consolidation of the left lower lobe and likely layering right- sided pleural effusion. Tara Cook MD Renal Ultrasound 03/16/17 Signed Impressions: Service Date/Time: Thursday, March 16, 2017 11:27 - CONCLUSION: The hydronephrosis has resolved. Urinary bladder is decompressed.. Jose Flores MD CT Angiography 03/15/17519 Signed Impressions: Service Date/Time: Wednesday, March 15, 2017 07:46 - CONCLUSION: 1. No evidence for pulmonary embolism. 2. Cardiomegaly with enlargement of pulmonary arteries likely from pulmonary arterial hypertension. 3. Bibasilar patchy densities could be atelectasis or infiltrate. 4. Mosaic attenuation which can be seen with small airway disease. 5. Enlarged precarinal and subcarinal adenopathy. Jai Queen MD Head CT 03/15/17 Signed Impressions: Service Date/Time: Wednesday, March 15, 2017 07:47 - CONCLUSION: No acute intracranial disease. Jai Queen MD Abdomen/Pelvis CT 03/15/17 Signed Impressions: Service Date/Time: Wednesday, March 15, 2017 07:51 - CONCLUSION: 1. Bilateral hydronephrosis with extensive stranding in the perinephric regions greater on the left. 2. Mild circumferential wall thickening within the bladder with mild distention. 3. Postsurgical changes rectosigmoid junction. 4. Small fat containing abdominal wall hernias. Jai Queen MD Objective Remarks GENERAL: Well-nourished, well-developed obese female. intubated. Opens eyes spontaneously and following commands SKIN: Warm and dry. HEAD: Normocephalic. EYES: No scleral icterus. No injection or drainage. NECK: Supple, trachea midline. No JVD or lymphadenopathy. CARDIOVASCULAR: Irregularly irregular rate and rhythm with systolic murmur RESPIRATORY: Breath sounds equal bilaterally. No accessory muscle use. GASTROINTESTINAL: Abdomen soft, non-tender, distended. Bowel sounds present. MUSCULOSKELETAL: No cyanosis, 2+ pitting edema in lower extremities bilaterally as well as edema in her hands Medications and IVs Current Medications Medications (Trade) Dose Ordered Sig/Chiqui Route Start Time Stop Time Status Last Admin (Tylenol) 650 mg Q4H PRN PO 03/15/17 10:15 03/21/17 16:23 (Synthroid) 50 mcg DAILY@0600 PO 03/16/17 06:00 03/25/17 06:00 (Pravachol) 40 mg DAILY PO 03/16/17 09:00 03/25/17 09:04 (Ativan Inj) 1 mg Q4H PRN IV PUSH 03/15/17 14:00 (NS Flush) 2 ml UNSCH PRN IV FLUSH 03/15/17 14:30 (NS Flush) 2 ml BID IV FLUSH 03/15/17 21:00 03/25/17 09:00 (Tears Naturale Opth Soln) 1 drop TID EACH EYE 03/15/17 18:00 03/25/17 09:02 (Zofran Inj) 4 mg Q6H PRN IV PUSH 03/15/17 14:30 (Duoneb Neb) 1 ampule Q2HR NEB PRN INH 03/15/17 14:30 03/19/17 22:26 Miscellaneous Information 1 Q361D XX 03/15/17 14:30 03/15/17 14:30 (Chlorhexidine 2% Cloth) Taper DAILY@04 TOP 03/16/17 04:00 03/12/18 03:59 03/25/17 04:00 (Chlorhexidine 2% Cloth) 3 pack UNSCH PRN TOP 03/15/17 14:30 (Elsa-Colace) 1 tab BID PO 03/15/17 21:00 03/25/17 09:05 (Milk Of Magnesia Liq) 30 ml Q12H PRN PO 03/15/17 14:30 (Senokot) 17.2 mg Q12H PRN PO 03/15/17 14:30 (Dulcolax Supp) 10 mg DAILY PRN RECTAL 03/15/17 14:30 (Lactulose Liq) 30 ml DAILY PRN PO 03/15/17 14:30 (D50w (Vial) Inj) 50 ml UNSCH PRN IV PUSH 03/15/17 15:15 (Glucagon Inj) 1 mg UNSCH PRN OTHER 03/15/17 15:15 (Heparin Inj) 5,000 units Q8HR SQ 03/15/17 22:00 03/25/17 06:00 (Lactulose Liq) 30 ml DAILY NG 03/15/17 16:30 03/25/17 09:03 Potassium Chloride 100 ml @ 50 mls/hr Q2H PRN IV 03/16/17 09:45 03/20/17 08:12 Potassium Chloride 100 ml @ 50 mls/hr Q2H PRN IV 03/16/17 09:45 (K-Lyte Cl Eff) 50 meq UNSCH PRN PO 03/16/17 09:45 03/25/17 09:02 Potassium Chloride 100 ml @ 25 mls/hr UNSCH PRN IV 03/16/17 09:45 Potassium Chloride 100 ml @ 50 mls/hr Q2H PRN IV 03/16/17 09:45 03/18/17 15:46 Magnesium Sulfate 4 gm/Sodium Chloride 100 ml @ 50 mls/hr UNSCH PRN IV 03/16/17 09:45 (Mag-Ox) 800 mg UNSCH PRN PO 03/16/17 09:45 Magnesium Sulfate 2 gm/Sodium Chloride 100 ml @ 50 mls/hr UNSCH PRN IV 03/16/17 09:45 03/16/17 11:07 (K-Phos) 2,000 mg Q4H PRN PO 03/16/17 09:45 Sodium Phosphate 30 mmol/Sodium Chloride 250 ml @ 42 mls/hr UNSCH PRN IV 03/16/17 09:45 (K-Phos) 2,000 mg UNSCH PRN PO/TUBE 03/16/17 09:45 Potassium Phosphate 30 mmol/ Sodium Chloride 260 ml @ 42 mls/hr UNSCH PRN IV 03/16/17 09:45 (Cordarone) 400 mg BID PO 03/16/17 21:00 03/25/17 09:05 (Pepcid Inj) 10 mg Q12HR IV PUSH 03/17/17 09:00 03/25/17 09:08 (Trandate Inj) 20 mg Q2H PRN IV 03/19/17 12:00 03/22/17 14:31 (PROzac LIQ) 20 mg DAILY PO 03/20/17 11:00 03/25/17 09:03 Diltiazem HCl 125 mg/Sodium Chloride 125 ml @ 5 mls/hr TITRATE PRN IV 03/21/17 07:45 03/23/17 20:51 (Levemir Inj) 15 units Q12HR SQ 03/21/17 09:00 Future Hold 03/24/17 20:42 (Bumex Inj) 1 mg DAILY IV PUSH 03/21/17 09:00 03/25/17 09:08 (SoluCORTEF INJ) 50 mg Taper DAILY@0600 IV 03/22/17 21:00 03/26/17 20:59 03/25/17 06:00 (Cardizem) 60 mg Q6HR PO 03/22/17 18:00 03/25/17 06:00 (NovoLOG SUPPLEMENTAL SCALE) 1 Q6HR SQ 03/22/17 18:00 03/25/17 00:00 (Levaquin) 750 mg Q48H PO 03/25/17 10:00 (Sumit Flor MD, R3) Date of Insertion: Mar 15, 2017 (Sumit Flor MD, R3) A/P Assessment and Plan Patient is a 71 year old female with a PMH significant for colon cancer s/p chemotherapy, atrial fibrillation on Eliquis, HTN, DM type 2, and MDD who presented to the ED with abdominal pain, nausea and vomiting and was found to have severe sepsis secondary to PNA and pyelonephritis in addition to atrial fibrillation with RVR. She rapidly decompensated into respiratory failure and was intubated on 03/15, continues to be in critical condition with sepsis. Discharge Planning Unclear timetable, patient in critical condition. Will likely need a SNF once improved as she will be very weak and debilitated. wdw: Dr. Greenberg (Sumit Flor MD, R3) Attending Attestation Patient seen and examined. Case reviewed and discussed with the resident team. Agree with plan of care as discussed with me and documented in the resident note. she is so alert and breathing well so should be extubated today (Lydia Greenberg MD) Problem List: (1) Sepsis due to Gram-negative organism with septic shock ICD Codes: A41.50 - Gram-negative sepsis, unspecified; R65.21 - Severe sepsis with septic shock Status: Acute Plan: Neurologic: AMS-toxic encephalopathy secondary to sepsis History of TIA x 2 Major Depressive Disorder Neurochecks per ICU protocol Patient intubated on CPAP with attempt at extubation planned for today 03/15 CT brain-no intracranial abnormality Neurology consulted- Dr. Huff to consider MRI brain if needed off sedation liquid prozac as she is still on tube feeds Respiratory: Acute Hypoxemic respiratory failure Pulmonary hypertension Carinal adenopathy 03/15 Patient intubated emergently FiO2 40, PEEP 5 today Maintain O2 sat greater than 92% Ventilator bundle Duonebs Q6H scheduled and Q2H when necessary 03/15 CT angiogram -pulmonary hypertension, no PE, enlarged precarinal and subcarinal lymphadenopathy 03/16 CXR shows persisting consolidation left mid and lower lung and improving infiltrates in the lower right lung 03/18 CXR: Stable basilar airspace disease 03/20 CXR: Increase basilar airspace disease 03/23 CXR: Basilar airspace disease with small effusions Concern for pneumonia, infectious disease on board and recommendations are appreciated Concern for worsening cardiac function resulting in some pulmonary edema. pt diuresed Pulmonary HTN not present on last echo in 03/16 Echo shows EF 55-60%, severe mitral annular calcification with moderate mitral valve stenosis, mildly dilated right atrium, mild to mod aortic valve stenosis, pulmonary arterial pressure 55.2 CPAP trial in progress Hydrocortisone 50 mg twice a day IV taper Cardiovascular: A. fib RVR Hypertension Patient Cardizem infusion-heart rate now in Amiodarone 400mg PO BID. labetalol when necessary for hypertension. Cardizem 60mg q6hr for control of heart rate. cardioversion only if unable to control rate Last echo 02/05- ejection fraction 55-60%. No RWMA. APA 35 mmHg, TV mild regurg, MV mild regurg 03/16 Echo results as above EPS- Dr. Lubin consulted Renal: Bilateral hydronephrosis Pyelonephrosis Continue Jacobsen catheter, once improved can do trial to remove jacobsen 03/14-CT of the abdomen and pelvis-bilateral hydronephrosis, pyelonephrosis, perinephric stranding -- Strict I/Os Urology consulted- 03/16 renal US shows resolution of hydronephrosis, urinary bladder decompressed Creatinine stable FEN/GI: History of colon cancer status post chemotherapy and colectomy Abdominal hernia Continue tube feeds Hypokalemia on ICU electrolyte protocol. will add some free water. her sodium is creeping up as well as her chloride. she is off all regular iv fluids Heme/ID: Septic Shock due to gram negative carmela Community-acquired multilobar pneumonia Pyelonephritis Lactic acidemia Bandemia 03/15 Blood cultures growing Klebsiella pneumoniae 03/15 urine culture growing Klebsiella pneumonia 03/16 sputum culture: No growth to date 2 days legionella and streptococcus antigens negative ID consulted - Dr. Hansen, treat with Levaquin. (vanc and cefepime have been discontinued) 03/19: Urine culture: No growth to date 2 Heme- Onc consulted regarding carinal adenopathy lymphadenopathy, patient is S/ P completion of chemotherapy 09/2016. Repeat CT chest in 1-2 months to evaluate mediastinal lymph nodes as outpatient Trend lactate level 6.4->4.2->4.9->3.0->1.5->2.2->2.3 Hemoglobin and hematocrit 10.0 and 31.1 respectively Endocrine: Diabetes mellitus Hypothyroidism High-dose SSI every 6 hours Long-acting Levemir at 15 units twice a day, will monitor for hypoglycemia Continue Levothyroxine 50 mcgs/day Tube feeds with free water this patient's sodium is elevated at 156 Prophylaxis: GI Prophylaxis with famotidine BID DVT Prophylaxis with SCDs and Heparin 5000u Q8H Lines: Port right chest, peripheral IVs 2, left radial A-line (2) Pyelonephritis ICD Codes: N12 - Tubulo-interstitial nephritis, not specified as acute or chronic Status: Resolved (3) PNA (pneumonia) ICD Codes: J18.9 - Pneumonia, unspecified organism Status: Acute (4) Atrial fibrillation with rapid ventricular response ICD Codes: I48.91 - Atrial fibrillation with rapid ventricular response Status: Resolved (5) Diabetes mellitus, type II ICD Codes: E11.9 - Type 2 diabetes mellitus Status: Chronic (6) Hypertension ICD Codes: I10 - Essential (primary) hypertension Status: Chronic (7) Hypothyroidism ICD Codes: E03.9 - Hypothyroidism Status: Acute (8) Nutrition, metabolism, and development symptoms ICD Codes: R63.8 - Symptoms concerning nutrition, metabolism, and development Status: Acute (Sumit Flor MD, R3) Problem Qualifiers (1) PNA (pneumonia): Qualified Codes: J18.9 - Pneumonia, unspecified organism (2) Diabetes mellitus, type II: Qualified Codes: E11.9 - Type 2 diabetes mellitus without complications; Z79.4 - half-way (current) use of insulin (3) Hypertension: Qualified Codes: I10 - Essential (primary) hypertension (4) Hypothyroidism: Qualified Codes: E03.9 - Hypothyroidism, unspecified Sumit Flor MD, R3 Mar 25, 2017 10:22 Lydia Greenberg MD Mar 26, 2017 11:06
--- NOTE | 2017-03-25 16:16 | HHI.NPPN ---
Subjective History of Present Illness 71-year-old female with past medical history of colon cancer, diabetes mellitus, hypertension, hypothyroidism, history of TIA, history of chemotherapy for colon cancer, was admitted to the hospital with complaint of abdominal pain, nausea and vomiting. I was called to see the patient because of elevated creatinine. The patient did not have any previous history of renal disease. Her creatinine looking back it was 0.6 last month and she came with a creatinine 1.3 and has gone up to 1.8. Additional Remarks Patient remain intubated and on CPAP, open eyes and following some commands. Review of Systems General General Remarks Intubated and sedated. Objective Data Data Vital Signs Date Time Temp Pulse Resp B/P (MAP) Pulse Ox O2 Delivery O2 Flow Rate FiO2 03/25/17 08:37 100 40 03/25/17 08:00 40 03/25/17 06:00 95 03/25/17 04:25 98 40 03/25/17 04:00 95 03/25/17 04:00 98.6 95 15 135/80 (98) 98 03/25/17 04:00 40 03/25/17 02:00 102 03/25/17 00:30 100 40 03/25/17 00:00 98 03/25/17 00:00 98.5 98 13 150/71 (97) 98 03/25/17 00:00 40 03/24/17 22:00 95 03/24/17 21:35 100 40 03/24/17 20:02 98 40 03/24/17 20:00 99 03/24/17 20:00 40 03/24/17 20:00 97.6 99 14 149/75 (99) 98 03/24/17 18:00 94 03/24/17 16:53 96 40 -: 03/25/17 0520 03/25/17 0520 Physical Exam General Appearance Remarks Intubated and off sedation. Eyes Eye Exam: Pupils Equal Throat Throat Exam: Oral Mucosa Falman & Moist Neck Neck Exam: Neck Supple, Trachea Midline Pulmonary Resp Exam: Rhonchi, Decreased Bases, Diminished Breath Sounds, Poor Inspiratory Effort Cardiology CV Exam: Regular, Tachycardia Gastrointestinal/Abdomen GI Exam: Soft, Non-Tender, Bowel Sounds Present, Non-Distended Integumentary Skin Exam: Intact Extremeties Extremities Exam: No Edema, Trace Edema Neurologic Neuro Exam: Awake Assessment/Plan Assessment Summary: ASH/Acute Renal Failure, Hypotension Problem List: (1) Respiratory failure ICD Codes: J96.90 - Respiratory failure, unspecified, unspecified whether with hypoxia or hypercapnia (2) Acute kidney failure ICD Codes: N17.9 - Acute kidney failure, unspecified (3) Hypothyroidism ICD Codes: E03.9 - Hypothyroidism Status: Acute (4) Hypertension ICD Codes: I10 - Essential (primary) hypertension Status: Chronic (5) PNA (pneumonia) ICD Codes: J18.9 - Pneumonia, unspecified organism Status: Acute (6) Hyperlipidemia ICD Codes: E78.5 - Hyperlipidemia Status: Acute (7) Cancer, colon ICD Codes: C18.9 - Malignant neoplasm of colon, unspecified Status: Acute Plan Most likely has ASH due to ATN. Patient has been non oliguric. Creatinine is now stable at 1.23 -> 1.29 Continue Bumex, has been non oliguric. Good UOP Avoid Nephrotoxins. Continue antibiotics - renal dose. Started on Vanco. and also on Cefepime. Hgb 10. today, continue to monitor. Hypernatremia is better and normalized. K is normal, Creatinine improve to 1.1. Now off IVF. Weaning as tolerated. Problem Qualifiers (1) Hypothyroidism: Qualified Codes: E03.9 - Hypothyroidism, unspecified (2) Hypertension: Qualified Codes: I10 - Essential (primary) hypertension (3) PNA (pneumonia): Qualified Codes: J18.9 - Pneumonia, unspecified organism Aixa Figueroa MD Mar 25, 2017 16:16
[2017-03-25] MEDS: MAGNESIUM HYDROXIDE SUSP 30 ML CUP PO PRN (17:16)
[2017-03-25] MEDS ORDERED: ALUMINUM/MAGNESIUM/SIMETH 30 ML CUP PO PRN (19:30)
[2017-03-26] VITALS (14 sets, daily range): BP systolic 102–150; BP diastolic 54–78; PULSE 64–95; RESP 18–23; TEMP 97.3–98.6; O2SAT 97–100
[2017-03-26] MEDS: CHLORHEXIDINE GLUCONATE 2 % 1 PACK (2 CLOTHS) TOP SCH (00:25)
[2017-03-26] MEDS: DILTIAZEM HCL 60 MG TAB PO SCH ×4 (00:30→16:53)
--- NOTE | 2017-03-26 05:48 | RADRPT ---
EXAM DATE/TIME: 03/26/2017 05:09 [facility] COMPARISON: CHEST SINGLE AP, March 24, 2017, 8:22. INDICATIONS : Shortness of breath. MEDICAL HISTORY : Sepsis. SURGICAL HISTORY : None. ENCOUNTER: Subsequent ACUITY: 2 weeks PAIN SCORE: 0/10 LOCATION: Bilateral chest FINDINGS: There is decreasing bibasilar consolidation, now mild on both sides. No large effusion seen. No pneum othorax. Heart size stable, limited normal. Patient has been extubated. Nasogastric tube also out. Right internal jugular Scstwu-m-Sbar catheter remains in place, tip in the superior vena cava. CONCLUSION: Decreasing bilateral airspace opacities, now mild. Endotracheal tube and nasogastric tube out. Jose Laurent MD on March 26, 2017 at 5:45 Board Certified Radiologist. This report was verified electronically.
[2017-03-26] MEDS: HEPARIN SODIUM - SQ 10,000 UNITS/ML VIAL SQ SCH ×3 (06:36→20:51)
[2017-03-26] MEDS: LEVOTHYROXINE SODIUM 50 MCG TAB PO SCH (06:36)
[2017-03-26] MEDS: HYDROCORTISONE SOD SUCCINATE 100 MG VIAL IV SCH (06:36)
[2017-03-26] MEDS: INSULIN ASPART SUPPLEMENTAL SCALE SQ SCH ×4 (06:52→16:54)
[2017-03-26] MEDS: AMIODARONE 200 MG TAB PO SCH ×2 (08:38→20:51)
[2017-03-26] MEDS: PRAVASTATIN SOD 40 MG TAB PO SCH (08:38)
[2017-03-26] MEDS: FLUoxetine HCL LIQUID 20 MG/5 ML CUP PO SCH (08:38)
[2017-03-26] MEDS: DOCUSATE SODIUM 50 MG/SENNA 8.6 MG TAB PO SCH ×2 (08:38→20:52)
[2017-03-26] MEDS: SODIUM CHLORIDE 0.9% FLUSH 10 ML FLUSH IV FLUSH SCH ×2 (08:39→20:52)
[2017-03-26] MEDS: LACTULOSE SYRUP 20 GM/30 ML CUP NG SCH (08:39)
[2017-03-26] MEDS: ARTIFICIAL TEARS OPTH SOLN 15 ML BTL EACH EYE SCH (08:39)
[2017-03-26] MEDS: FAMOTIDINE 20 MG/2 ML VIAL IV PUSH SCH (08:39)
[2017-03-26] MEDS: BUMETANIDE INJ 1 MG/4 ML VIAL IV PUSH SCH (08:39)
[2017-03-26] MEDS ORDERED: LACTULOSE SYRUP 20 GM/30 ML CUP NG PRN ×2 (09:45→10:15)
[2017-03-26] MEDS ORDERED: ARTIFICIAL TEARS OPTH SOLN 15 ML BTL EACH EYE PRN (09:45)
--- NOTE | 2017-03-26 10:35 | HHI.FPPN ---
Subjective Remarks Patient seen and examined this morning. Temperature ranging between 97.3-98.6, pulse ranging between 74-86, respiratory rate ranging between 13-20, blood pressure ranging between 127-156/63-90, pulse ox 9900 on 4 L nasal cannula. She is extubated and awake. She reports that she is feeling a whole lot better. She is complaining of some gas pain. She admits to feeling very weak and having difficulty raising her arms and legs. She is in agreement with going to a rehabilitation facility upon discharge when she gets to that point. She denies any nausea or vomiting at this time. She denies any bowel movements at this time. Endorses: Generalized weakness from deconditioning Denies: Fever, chills, nausea, vomiting, shortness of breath, chest pain, headache, abdominal pain, calf pain All other review of symptoms were negative (Sumit Flor MD, R3) Objective Vitals Vital Signs Date Time Temp Pulse Resp B/P (MAP) Pulse Ox O2 Delivery O2 Flow Rate FiO2 03/26/17 08:00 86 03/26/17 08:00 98.6 86 18 150/78 (102) 99 03/26/17 07:17 99 Nasal Cannula 4.00 03/26/17 04:01 100 Nasal Cannula 4.00 03/26/17 04:00 98.2 74 20 127/65 (85) 99 03/26/17 00:00 97.3 84 20 130/63 (85) 100 03/25/17 20:00 97.3 107 16 149/90 (109) 100 03/25/17 16:00 98.4 97 15 156/76 (102) 100 03/25/17 12:00 98.5 100 13 137/67 (90) 98 I/O 03/25/17 03/25/17 03/25/17 03/26/17 03/26/17 03/26/17 07:00 15:00 23:00 07:00 15:00 23:00 Intake Total 3012 ml 410 ml 483 ml Output Total 1360 ml 2500 ml 2000 ml Balance 1652 ml -2090 ml -1517 ml Intake Oral 240 ml 360 ml IV Total 1095 ml 70 ml 123 ml Tube Feeding 917 ml Tube Irrigant 100 ml Other 1000 ml Output Urine Total 1360 ml 2500 ml 2000 ml # Bowel Movements 1 2 (Sumit Flor MD, R3) Result Diagram: 03/25/1751903/25/17519 Imaging Last Impressions Chest X-Ray 03/26/17 06 Signed Impressions: Service Date/Time: Sunday, March 26, 2017 05:09 - CONCLUSION: Decreasing bilateral airspace opacities, now mild. Endotracheal tube and nasogastric tube out. Jose Laurent MD Renal Ultrasound 03/16/17 0000 Signed Impressions: Service Date/Time: Thursday, March 16, 2017 11:27 - CONCLUSION: The hydronephrosis has resolved. Urinary bladder is decompressed.. Jose Flores MD CT Angiography 03/15/17519 Signed Impressions: Service Date/Time: Wednesday, March 15, 2017 07:46 - CONCLUSION: 1. No evidence for pulmonary embolism. 2. Cardiomegaly with enlargement of pulmonary arteries likely from pulmonary arterial hypertension. 3. Bibasilar patchy densities could be atelectasis or infiltrate. 4. Mosaic attenuation which can be seen with small airway disease. 5. Enlarged precarinal and subcarinal adenopathy. Jai Queen MD Head CT 03/15/17 0000 Signed Impressions: Service Date/Time: Wednesday, March 15, 2017 07:47 - CONCLUSION: No acute intracranial disease. Jai Queen MD Abdomen/Pelvis CT 03/15/17 0000 Signed Impressions: Service Date/Time: Wednesday, March 15, 2017 07:51 - CONCLUSION: 1. Bilateral hydronephrosis with extensive stranding in the perinephric regions greater on the left. 2. Mild circumferential wall thickening within the bladder with mild distention. 3. Postsurgical changes rectosigmoid junction. 4. Small fat containing abdominal wall hernias. Jai Queen MD Objective Remarks GENERAL: Well-nourished, well-developed obese female. Awake alert breathing on her own with 4 L nasal cannula SKIN: Warm and dry. HEAD: Normocephalic. EYES: No scleral icterus. No injection or drainage. NECK: Supple, trachea midline. No JVD or lymphadenopathy. CARDIOVASCULAR: Irregularly irregular rate and rhythm with systolic murmur RESPIRATORY: Breath sounds equal bilaterally. No accessory muscle use. GASTROINTESTINAL: Abdomen soft, non-tender, distended. Bowel sounds present. MUSCULOSKELETAL: No cyanosis, 2+ pitting edema in lower extremities bilaterally as well as edema in her hands 3 out of 5 strength in all extremities Medications and IVs Current Medications Medications (Trade) Dose Ordered Sig/Chiqui Route Start Time Stop Time Status Last Admin (Tylenol) 650 mg Q4H PRN PO 03/15/17 10:15 03/21/17 16:23 (Synthroid) 50 mcg DAILY@0600 PO 03/16/17 06:00 03/26/17 06:36 (Pravachol) 40 mg DAILY PO 03/16/17 09:00 03/26/17 08:38 (Ativan Inj) 1 mg Q4H PRN IV PUSH 03/15/17 14:00 (NS Flush) 2 ml UNSCH PRN IV FLUSH 03/15/17 14:30 (NS Flush) 2 ml BID IV FLUSH 03/15/17 21:00 03/26/17 08:39 (Zofran Inj) 4 mg Q6H PRN IV PUSH 03/15/17 14:30 (Duoneb Neb) 1 ampule Q2HR NEB PRN INH 03/15/17 14:30 03/19/17 22:26 Miscellaneous Information 1 Q361D XX 03/15/17 14:30 03/15/17 14:30 (Chlorhexidine 2% Cloth) Taper DAILY@04 TOP 03/16/17 04:00 03/12/18 03:59 03/25/17 04:00 (Chlorhexidine 2% Cloth) 3 pack UNSCH PRN TOP 03/15/17 14:30 (Elsa-Colace) 1 tab BID PO 03/15/17 21:00 03/26/17 08:38 (Milk Of Magnesia Liq) 30 ml Q12H PRN PO 03/15/17 14:30 03/25/17 17:16 (Senokot) 17.2 mg Q12H PRN PO 03/15/17 14:30 (Dulcolax Supp) 10 mg DAILY PRN RECTAL 03/15/17 14:30 (D50w (Vial) Inj) 50 ml UNSCH PRN IV PUSH 03/15/17 15:15 (Glucagon Inj) 1 mg UNSCH PRN OTHER 03/15/17 15:15 (Heparin Inj) 5,000 units Q8HR SQ 03/15/17 22:00 03/26/17 06:36 Potassium Chloride 100 ml @ 50 mls/hr Q2H PRN IV 03/16/17 09:45 03/20/17 08:12 Potassium Chloride 100 ml @ 50 mls/hr Q2H PRN IV 03/16/17 09:45 (K-Lyte Cl Eff) 50 meq UNSCH PRN PO 03/16/17 09:45 03/25/17 09:02 Potassium Chloride 100 ml @ 25 mls/hr UNSCH PRN IV 03/16/17 09:45 Potassium Chloride 100 ml @ 50 mls/hr Q2H PRN IV 03/16/17 09:45 03/18/17 15:46 Magnesium Sulfate 4 gm/Sodium Chloride 100 ml @ 50 mls/hr UNSCH PRN IV 03/16/17 09:45 (Mag-Ox) 800 mg UNSCH PRN PO 03/16/17 09:45 Magnesium Sulfate 2 gm/Sodium Chloride 100 ml @ 50 mls/hr UNSCH PRN IV 03/16/17 09:45 03/16/17 11:07 (K-Phos) 2,000 mg Q4H PRN PO 03/16/17 09:45 Sodium Phosphate 30 mmol/Sodium Chloride 250 ml @ 42 mls/hr UNSCH PRN IV 03/16/17 09:45 (K-Phos) 2,000 mg UNSCH PRN PO/TUBE 03/16/17 09:45 Potassium Phosphate 30 mmol/ Sodium Chloride 260 ml @ 42 mls/hr UNSCH PRN IV 03/16/17 09:45 (Cordarone) 400 mg BID PO 03/16/17 21:00 03/26/17 08:38 (Trandate Inj) 20 mg Q2H PRN IV 03/19/17 12:00 03/22/17 14:31 (PROzac LIQ) 20 mg DAILY PO 03/20/17 11:00 03/26/17 08:38 Diltiazem HCl 125 mg/Sodium Chloride 125 ml @ 5 mls/hr TITRATE PRN IV 03/21/17 07:45 03/23/17 20:51 (Levemir Inj) 15 units Q12HR SQ 03/21/17 09:00 Future Hold 03/24/17 20:42 (Bumex Inj) 1 mg DAILY IV PUSH 03/21/17 09:00 03/26/17 08:39 (SoluCORTEF INJ) 50 mg Taper DAILY@0600 IV 03/22/17 21:00 03/26/17 20:59 03/26/17 06:36 (Cardizem) 60 mg Q6HR PO 03/22/17 18:00 03/26/17 06:36 (NovoLOG SUPPLEMENTAL SCALE) 1 Q6HR SQ 03/22/17 18:00 03/26/17 06:52 (Levaquin) 750 mg Q48H PO 03/25/17 10:00 03/25/17 10:00 (Mag-Al Plus Susp Liq) 20 ml Q6H PRN PO 03/25/17 19:30 03/26/17 09:48 (Pepcid) 10 mg BID PO 03/26/17 21:00 (Tears Naturale Opth Soln) 1 drop TID PRN EACH EYE 03/26/17 09:45 (Lactulose Liq) 30 ml DAILY PRN NG 03/26/17 10:15 (Sumit Flor MD, R3) Date of Insertion: Mar 15, 2017 (Sumit Flor MD, R3) A/P Assessment and Plan Patient is a 71 year old female with a PMH significant for colon cancer s/p chemotherapy, atrial fibrillation on Eliquis, HTN, DM type 2, and MDD who presented to the ED with abdominal pain, nausea and vomiting and was found to have severe sepsis secondary to PNA and pyelonephritis in addition to atrial fibrillation with RVR. She rapidly decompensated into respiratory failure and was intubated on 03/15, continues to be in critical condition with sepsis. Discharge Planning Unclear timetable, patient in critical condition. Will likely need a SNF once improved as she will be very weak and debilitated. wdw: Dr. Greenberg (Sumit Flor MD, R3) Attending Attestation Patient seen and examined. Case reviewed and discussed with the resident team. Agree with plan of care as discussed with me and documented in the resident note. she is doing so well off her ventilator. tweaked her meds as she is able to take po now so changed her pepcid to po and stopped her lactulose. will check an ammonia tomorrow but believe that her liver was failing when she had her severe sepsis and should be better now. some of her abdominal cramping could be related to the lactulose or other meds. appreciate consideration for serious rehab as she is severely weakened at this point (Lydia Greenberg MD) Problem List: (1) Sepsis due to Gram-negative organism with septic shock ICD Codes: A41.50 - Gram-negative sepsis, unspecified; R65.21 - Severe sepsis with septic shock Status: Acute Plan: Neurologic: AMS-toxic encephalopathy secondary to sepsis History of TIA x 2 Major Depressive Disorder Neurochecks per ICU protocol Patient is extubated and breathing on 4 L nasal cannula. She is able to speak in full sentences 03/15 CT brain-no intracranial abnormality Neurology consulted- Dr. Huff to consider MRI brain if needed off sedation Fluoxetine 20 mg daily Respiratory: Acute Hypoxemic respiratory failure Pulmonary hypertension Carinal adenopathy 03/15 Patient intubated emergently FiO2 40, PEEP 5 today Maintain O2 sat greater than 92% Ventilator bundle Duonebs Q6H scheduled and Q2H when necessary 03/15 CT angiogram -pulmonary hypertension, no PE, enlarged precarinal and subcarinal lymphadenopathy 03/16 CXR shows persisting consolidation left mid and lower lung and improving infiltrates in the lower right lung 03/18 CXR: Stable basilar airspace disease 03/20 CXR: Increase basilar airspace disease 03/23 CXR: Basilar airspace disease with small effusions Concern for pneumonia, infectious disease on board and recommendations are appreciated Concern for worsening cardiac function resulting in some pulmonary edema. pt diuresed Pulmonary HTN not present on last echo in 03/16 Echo shows EF 55-60%, severe mitral annular calcification with moderate mitral valve stenosis, mildly dilated right atrium, mild to mod aortic valve stenosis, pulmonary arterial pressure 55.2 Breathing on 4 L nasal cannula satting at 100% Hydrocortisone 50 mg twice a day IV taper Cardiovascular: A. fib RVR Hypertension Patient Cardizem infusion-heart rate now in Amiodarone 400mg PO BID. labetalol when necessary for hypertension. Cardizem 60mg q6hr for control of heart rate. cardioversion only if unable to control rate Last echo 02/05- ejection fraction 55-60%. No RWMA. APA 35 mmHg, TV mild regurg, MV mild regurg 03/16 Echo results as above EPS- Dr. Lubin consulted Renal: Bilateral hydronephrosis Pyelonephrosis Continue Jacobsen catheter, once improved can do trial to remove jacobsen 03/14-CT of the abdomen and pelvis-bilateral hydronephrosis, pyelonephrosis, perinephric stranding -- Strict I/Os Urology consulted- 03/16 renal US shows resolution of hydronephrosis, urinary bladder decompressed Creatinine stable FEN/GI: History of colon cancer status post chemotherapy and colectomy Abdominal hernia Continue tube feeds Hypokalemia on ICU electrolyte protocol. will add some free water. her sodium is creeping up as well as her chloride. she is off all regular iv fluids Heme/ID: Septic Shock due to gram negative carmela Community-acquired multilobar pneumonia Pyelonephritis Lactic acidemia Bandemia 03/15 Blood cultures growing Klebsiella pneumoniae 03/15 urine culture growing Klebsiella pneumonia 03/16 sputum culture: No growth to date 2 days legionella and streptococcus antigens negative ID consulted - Dr. Hansen, treat with Levaquin. (vanc and cefepime have been discontinued) 03/19: Urine culture: No growth to date 2 Heme- Onc consulted regarding carinal adenopathy lymphadenopathy, patient is S/ P completion of chemotherapy 09/2016. Repeat CT chest in 1-2 months to evaluate mediastinal lymph nodes as outpatient Trend lactate level 6.4->4.2->4.9->3.0->1.5->2.2->2.3 Hemoglobin and hematocrit 10.0 and 31.1 respectively Endocrine: Diabetes mellitus Hypothyroidism High-dose SSI every 6 hours Long-acting Levemir at 15 units twice a day, will monitor for hypoglycemia Continue Levothyroxine 50 mcgs/day Tube feeds with free water this patient's sodium is elevated at 156 Prophylaxis: GI Prophylaxis with famotidine BID DVT Prophylaxis with SCDs and Heparin 5000u Q8H Lines: Port right chest, peripheral IVs 2, left radial A-line (2) Pyelonephritis ICD Codes: N12 - Tubulo-interstitial nephritis, not specified as acute or chronic Status: Resolved (3) PNA (pneumonia) ICD Codes: J18.9 - Pneumonia, unspecified organism Status: Acute (4) Atrial fibrillation with rapid ventricular response ICD Codes: I48.91 - Atrial fibrillation with rapid ventricular response Status: Resolved (5) Diabetes mellitus, type II ICD Codes: E11.9 - Type 2 diabetes mellitus Status: Chronic (6) Hypertension ICD Codes: I10 - Essential (primary) hypertension Status: Chronic (7) Hypothyroidism ICD Codes: E03.9 - Hypothyroidism Status: Acute (8) Nutrition, metabolism, and development symptoms ICD Codes: R63.8 - Symptoms concerning nutrition, metabolism, and development Status: Acute (Sumit Flor MD, R3) Problem Qualifiers (1) PNA (pneumonia): Qualified Codes: J18.9 - Pneumonia, unspecified organism (2) Diabetes mellitus, type II: Qualified Codes: E11.9 - Type 2 diabetes mellitus without complications; Z79.4 - alf (current) use of insulin (3) Hypertension: Qualified Codes: I10 - Essential (primary) hypertension (4) Hypothyroidism: Qualified Codes: E03.9 - Hypothyroidism, unspecified Sumit Flor MD, R3 Mar 26, 2017 10:35 Lydia Greenberg MD Mar 26, 2017 11:19
[2017-03-26] MEDS: ACETAMINOPHEN 325 MG TAB PO PRN (10:43)
--- NOTE | 2017-03-26 11:16 | HHI.NPPN ---
Subjective History of Present Illness 71-year-old female with past medical history of colon cancer, diabetes mellitus, hypertension, hypothyroidism, history of TIA, history of chemotherapy for colon cancer, was admitted to the hospital with complaint of abdominal pain, nausea and vomiting. I was called to see the patient because of elevated creatinine. The patient did not have any previous history of renal disease. Her creatinine looking back it was 0.6 last month and she came with a creatinine 1.3 and has gone up to 1.8. Additional Remarks Patient is extubated, awake, no SOB, has mild abd. pain. Review of Systems General General Remarks Intubated and sedated. Objective Data Data Vital Signs Date Time Temp Pulse Resp B/P (MAP) Pulse Ox O2 Delivery O2 Flow Rate FiO2 03/26/17 10:00 95 03/26/17 08:00 86 03/26/17 08:00 98.6 86 18 150/78 (102) 99 03/26/17 07:17 99 Nasal Cannula 4.00 03/26/17 04:01 100 Nasal Cannula 4.00 03/26/17 04:00 98.2 74 20 127/65 (85) 99 03/26/17 00:00 97.3 84 20 130/63 (85) 100 03/25/17 20:00 97.3 107 16 149/90 (109) 100 03/25/17 16:00 98.4 97 15 156/76 (102) 100 03/25/17 12:00 98.5 100 13 137/67 (90) 98 -: 03/25/17 0520 03/25/17 0520 Physical Exam General Appearance: No Acute Distress, Comfortable Eyes Eye Exam: Pupils Equal Throat Throat Exam: Oral Mucosa [place] & Moist Neck Neck Exam: Neck Supple, Trachea Midline Pulmonary Resp Exam: Rhonchi, Decreased Bases, Diminished Breath Sounds, Poor Inspiratory Effort Cardiology CV Exam: Regular, Tachycardia Gastrointestinal/Abdomen GI Exam: Soft, Non-Tender, Bowel Sounds Present, Non-Distended Integumentary Skin Exam: Intact Extremeties Extremities Exam: No Edema, Trace Edema Neurologic Neuro Exam: Alert, Awake Psychiatric Psych Exam: Appropriate Responses Assessment/Plan Assessment Summary: ASH/Acute Renal Failure, Hypotension Problem List: (1) Respiratory failure ICD Codes: J96.90 - Respiratory failure, unspecified, unspecified whether with hypoxia or hypercapnia (2) Acute kidney failure ICD Codes: N17.9 - Acute kidney failure, unspecified (3) Hypothyroidism ICD Codes: E03.9 - Hypothyroidism Status: Acute (4) Hypertension ICD Codes: I10 - Essential (primary) hypertension Status: Chronic (5) PNA (pneumonia) ICD Codes: J18.9 - Pneumonia, unspecified organism Status: Acute (6) Hyperlipidemia ICD Codes: E78.5 - Hyperlipidemia Status: Acute (7) Cancer, colon ICD Codes: C18.9 - Malignant neoplasm of colon, unspecified Status: Acute Plan Most likely has ASH due to ATN. Patient has been non oliguric. Continue Bumex, has been non oliguric. Good UOP Avoid Nephrotoxins. Continue antibiotics - renal dose. Started on Vanco. and also on Cefepime. No new BMP, Creatinine was better yesterday. Urine out put is good, follow the BMP. Problem Qualifiers (1) Hypothyroidism: Qualified Codes: E03.9 - Hypothyroidism, unspecified (2) Hypertension: Qualified Codes: I10 - Essential (primary) hypertension (3) PNA (pneumonia): Qualified Codes: J18.9 - Pneumonia, unspecified organism Aixa Figueroa MD Mar 26, 2017 11:15
[2017-03-26 14:08] LABS: AUTOMATED NEUTROPHIL # 10.9 TH/MM3 (1.8-7.7); BASOPHIL % 0.2 % (0.0-2.0); EOSINOPHIL % 0.2 % (0.0-4.0); HEMATOCRIT 30.1 % (35.0-46.0); HEMO FLAGS DIFF FINAL; LYMPH % 4.9 % (9.0-44.0); LYMPHOCYTE # 0.6 TH/MM3 (1.0-4.8); MEAN CORPUSCULAR HEMOGLOBIN 29.6 PG (27.0-34.0); MEAN CORPUSCULAR HGB CONC 32.9 % (32.0-36.0); MONO % 3.8 % (0.0-8.0); NEUT % 90.9 % (16.0-70.0); PLATELET COUNT 171 TH/MM3 (150-450); RED BLOOD COUNT 3.35 MIL/MM3 (4.00-5.30); RED CELL DISTRIBUTION WIDTH 14.3 % (11.6-17.2)
[2017-03-26 14:27] LABS: ALKALINE PHOSPHATASE 195 U/L (45-117); ALT (GPT) 37 U/L (10-53); ANION GAP 6 MEQ/L (5-15); AST (GOT) 49 U/L (15-37); BICARBONATE 34.1 MEQ/L (21.0-32.0); BLOOD UREA NITROGEN 32 MG/DL (7-18); CHLORIDE 99 MEQ/L (98-107); GLOMERULAR FILTRATION RATE 46 ML/MIN (>89); MAGNESIUM 2.2 MG/DL (1.5-2.5); POTASSIUM 3.2 MEQ/L (3.5-5.1); SODIUM (NA) 139 MEQ/L (136-145); TOTAL BILIRUBIN ADULT 0.5 MG/DL (0.2-1.0)
[2017-03-26] MEDS: POTASSIUM CHLOR 40 MEQ PREMIX 100 ML IV PRN ×2 (14:36→16:39)
--- NOTE | 2017-03-26 15:56 | HHI.IDPN ---
Subjective Subjective Remarks Patient is a 71-year-old female, admitted to the hospital for evaluation of abdominal pain, nausea and vomiting. She apparently has been complaining of left-sided abdominal pain goes down to the lower abdomen. She also started having nausea and vomiting. There was mention of some dysuria, urgency and frequency in the last 3-4 days. Patient also apparently has been having problem with shortness of breath over the last 3 weeks, and generalized weakness and easy fatigability. There was no mention of any fever or chills or sweats. On the morning of admission, the patient was noted to be confused, and was having more shortness of breath. There is no mention of any cough or congestion, or any complaint of any chest pain. Patient was brought into the hospital for further evaluation and treatment. Patient has had imaging studies done. CTA did not show any pulmonary embolism. CT of the abdomen and pelvis showing some mild bilateral hydronephrosis and some perinephric stranding. Her UA has pyuria. 2 blood cultures on admission are now reported as growing gram-negative carmela. Her WBC is normal. Creatinine is 1.32. Patient went into significant respiratory distress, and ended up getting intubated. She has received Zosyn, and vancomycin. Neurology has been consult. Infectious disease consultation requested to evaluate the patient with severe sepsis. Notes reviewed D/W RN Extubated, doing well on nasal O2 Temps ok WBC down to 12 All repeat BC negative so far C/S negative CXR C/W pulmonary edema Creatinine better Antibiotics Levaquin Lines Port Past Medical History Reviewed Allergies: Coded Allergies: codeine (Unverified Allergy, Severe, Nausea/Vomiting, 03/15/17) Uncoded Allergies: METAL (Allergy, Intermediate, hives, 03/08/16) SURGICAL STEEL (Allergy, Intermediate, hives, 03/08/16) Objective . Vital Signs Date Time Temp Pulse Resp B/P (MAP) Pulse Ox O2 Delivery O2 Flow Rate FiO2 03/26/17 14:00 80 03/26/17 12:00 78 03/26/17 12:00 97.8 78 22 102/54 (70) 97 03/26/17 10:00 95 03/26/17 08:00 86 03/26/17 08:00 98.6 86 18 150/78 (102) 99 03/26/17 07:17 99 Nasal Cannula 4.00 03/26/17 04:01 100 Nasal Cannula 4.00 03/26/17 04:00 98.2 74 20 127/65 (85) 99 03/26/17 00:00 97.3 84 20 130/63 (85) 100 03/25/17 20:00 97.3 107 16 149/90 (109) 100 03/25/17 16:00 98.4 97 15 156/76 (102) 100 . Laboratory Tests Test 03/25/17 05:20 03/26/17 12:30 White Blood Count 14.9 TH/MM3 12.0 TH/MM3 Red Blood Count 3.56 MIL/MM3 3.35 MIL/MM3 Hemoglobin 10.4 GM/DL 9.9 GM/DL Hematocrit 31.8 % 30.1 % Mean Corpuscular Volume 89.3 FL 90.0 FL Mean Corpuscular Hemoglobin 29.2 PG 29.6 PG Mean Corpuscular Hemoglobin Concent 32.7 % 32.9 % Red Cell Distribution Width 14.9 % 14.3 % Platelet Count 185 TH/MM3 171 TH/MM3 Mean Platelet Volume 9.5 FL 9.7 FL Neutrophils (%) (Auto) 84.4 % 90.9 % Lymphocytes (%) (Auto) 7.7 % 4.9 % Monocytes (%) (Auto) 7.0 % 3.8 % Eosinophils (%) (Auto) 0.7 % 0.2 % Basophils (%) (Auto) 0.2 % 0.2 % Neutrophils # (Auto) 12.5 TH/MM3 10.9 TH/MM3 Lymphocytes # (Auto) 1.1 TH/MM3 0.6 TH/MM3 Monocytes # (Auto) 1.0 TH/MM3 0.5 TH/MM3 Eosinophils # (Auto) 0.1 TH/MM3 0.0 TH/MM3 Basophils # (Auto) 0.0 TH/MM3 0.0 TH/MM3 CBC Comment DIFF FINAL DIFF FINAL Differential Comment Laboratory Tests Test 03/25/17 05:20 03/26/17 12:30 Blood Urea Nitrogen 37 MG/DL 32 MG/DL Creatinine 1.11 MG/DL 1.16 MG/DL Random Glucose 142 MG/DL 260 MG/DL Total Protein 6.1 GM/DL 5.8 GM/DL Albumin 2.0 GM/DL 1.9 GM/DL Calcium Level 8.2 MG/DL 8.0 MG/DL Alkaline Phosphatase 152 U/L 195 U/L Aspartate Amino Transf (AST/SGOT) 45 U/L 49 U/L Alanine Aminotransferase (ALT/SGPT) 31 U/L 37 U/L Total Bilirubin 0.5 MG/DL 0.5 MG/DL Sodium Level 145 MEQ/L 139 MEQ/L Potassium Level 3.4 MEQ/L 3.2 MEQ/L Chloride Level 102 MEQ/L 99 MEQ/L Carbon Dioxide Level 38.0 MEQ/L 34.1 MEQ/L Anion Gap 5 MEQ/L 6 MEQ/L Estimat Glomerular Filtration Rate 49 ML/MIN 46 ML/MIN Magnesium Level 2.2 MG/DL Imaging Chest X-Ray 03/21/17 0000 Signed Impressions: Service Date/Time: February 09:45 - CONCLUSION: 1. Consolidation of the left lower lobe. 2. Diffuse chronic interstitial changes mildly improved compared to previous. 3. The ET tube is somewhat high approximately 7 cm above the angelica. Quincy Resendez MD Chest X-Ray 03/20/17 0600 Signed Impressions: Service Date/Time: Monday, March 20, 2017 04:57 - CONCLUSION: 1. Endotracheal tube and nasogastric tube in good position. Basilar airspace disease increased from March 18. Samuel Lin MD Chest X-Ray 03/18/17 0600 Signed Impressions: Service Date/Time: Saturday, March 18, 2017 03:45 - CONCLUSION: 1. Apparatus in good position. Relatively stable basilar airspace disease. Samuel Lin MD Chest X-Ray 03/17/17 0000 Signed Impressions: Service Date/Time: Friday, March 17, 2017 06:22 - CONCLUSION: Persistent infiltrates consolidation left lower lung and patchy infiltrates in the central right lung. Antonio Voss MD Chest X-Ray 03/16/17 0600 Signed Impressions: Service Date/Time: Thursday, March 16, 2017 04:58 - CONCLUSION: Persisting consolidation left mid and lower lung and improving infiltrates in the lower right lung. Antonio Voss MD Renal Ultrasound 03/16/17 0000 Signed Impressions: Service Date/Time: Thursday, March 16, 2017 11:27 - CONCLUSION: The hydronephrosis has resolved. Urinary bladder is decompressed.. Jose Flores MD CT Angiography 03/15/17 0520 Signed Impressions: Service Date/Time: Wednesday, March 15, 2017 07:46 - CONCLUSION: 1. No evidence for pulmonary embolism. 2. Cardiomegaly with enlargement of pulmonary arteries likely from pulmonary arterial hypertension. 3. Bibasilar patchy densities could be atelectasis or infiltrate. 4. Mosaic attenuation which can be seen with small airway disease. 5. Enlarged precarinal and subcarinal adenopathy. Jai Queen MD Head CT 03/15/17 0000 Signed Impressions: Service Date/Time: Wednesday, March 15, 2017 07:47 - CONCLUSION: No acute intracranial disease. Jai Queen MD Abdomen/Pelvis CT 03/15/17 0000 Signed Impressions: Service Date/Time: Wednesday, March 15, 2017 07:51 - CONCLUSION: 1. Bilateral hydronephrosis with extensive stranding in the perinephric regions greater on the left. 2. Mild circumferential wall thickening within the bladder with mild distention. 3. Postsurgical changes rectosigmoid junction. 4. Small fat containing abdominal wall hernias. Jai Queen MD Physical Exam GENERAL: Awake and alert, NAD SKIN: Warm and dry. No generalized rash HEAD: Atraumatic. Normocephalic. No temporal wasting, or tenderness. EYES: [place] conjunctiva. No petechia or hemorrhage. Pupils equal, round and reactive to light. No scleral icterus. No injection or drainage. EARS, NOSE AND THROAT: Nose without bleeding or purulent nasal discharge. Moist oral mucosa NECK: Trachea midline. Supple and no meningeal signs CARDIOVASCULAR: Irregular rate and rhythm. No murmurs, rubs or gallops heard RESPIRATORY: Coarse breath sounds. Decreased at the bases. ABDOMEN: Distended, not tender, not distended. Bowel sounds present and hypoactive. No guarding. EXTREMITIES: No clubbing, cyanosis. Edema both hands and feet. Well perfused and warm. NEUROLOGICAL: Grossly non-focal PSYCHIATRIC: Cooperative LINE: No evidence of infection - port R upper chest : Gallo in place, urine better Assessment & Plan Remarks IMPRESSION Severe sepsis, Klebsiella urosepsis, - off pressors - has pyelonephritis (has perinephric stranding on CT and mild hydro, no stone seen, no colitis on CT, has complaints) Respiratory failure, bilateral infiltrates, ?PNA - prob multifactorial: Fluid, inflammatory, ?PNA - sputum C/S negative Known Colon CA, with (+) LN, undergoing chemo - S/P sigmoid colectomy, low anterior resection Renal insufficiency due to sepsis Atrial fib, chronic, previous ablation done and MS Leukocytosis, up again, likely reactive Recurrent fevers, ?new PNA - temps better RECOMMENDATION Continue Levaquin Follow C/S Follow temps Follow CBC Monitor progress D/W Rosaura Lo MD Mar 26, 2017 15:56
[2017-03-26] MEDS: ACETAMINOPHEN/HYDROcodone 325 MG/5 MG TAB PO PRN ×2 (16:55→20:51)
[2017-03-26] MEDS: FAMOTIDINE 20 MG TAB PO SCH (20:51)
--- NOTE | 2017-03-26 20:59 | HHI.CCPN ---
Subjective Remarks/Hospital Course This is a 71 year old female with a PMH significant for colon cancer s/p chemotherapy, atrial fibrillation previously on Eliquis discontinued for GI bleeding, HTN, DM type 2, and MDD who presented to the ED with abdominal pain, nausea and vomiting.The patient stated that she had pain in her left side this morning that radiated to her lower abdomen and caused her to have nausea and vomiting. She states that she has been short of breath for the past 3 weeks and progressively more fatigued. Her states that she has been becoming progressively weaker and sleeping excessively at times. At 3AM this morning, he noticed that she was trying to talk but "wasn't making any sense." He states that she has been so short of breath that she has been having difficulty finishing sentences without becoming short of breath. She notes dysuria, urinary urgency and frequency for the past 3-4 days. Imaging studies and laboratory studies were performed. Notably CTA of the chest reveal pulmonary hypertension and carinal lymphadenopathy. CT abdomen and pelvis revealed bilateral hydronephrosis and pyelonephrosis with perinephric stranding. Cultures were sent, the patient was noted to have bacteremia notably gram- negative rods. The patient was in A. fib RVR in the ED the patient received Cardizem bolus and was placed on a Cardizem infusion and transferred to ICU. Upon admission to ICU the patient became progressively short of breath with escalating alternation in mental status critical care medicine was consulted. The patient's heart rate at that time was in the 130s systolic pressure 140s and O2 sat high 80s. Brief discussion with purpose of emergent intubation. Subjective: 03/16: Overnight the patient continued to have hemodynamic instability, now septic shock. Patient continues in A. fib with HR low 100's. Patient on maximum doses currently of norepinephrine and vasopressin infusions. [place]- cortisone added to medication regimen, Sodium bicarbonate infusion initiated. Imaging revealed hydronephrosis and pyelonephrosis patient seen by Dr. Larose, urine output now decreased to 150cc total over the last 12hrs, with continued elevation in creatinine. Planned renogram this a.m., to rule out obstruction with possible placement of nephrostomy tubes, and nephrology also consulted. Patient was seen by Dr. Candelario, carinal /hilar lymphadenopathy most likely not associated with carcinoma, plan for outpatient scan in 2-3 months. FiO2 was decreased to 60% overnight, ECHO pending her evaluation of cardiac status and pulmonary hypertension. 03/17: Overnight vasopressors weaned significantly, currently on lower doses. The patient continues on sodium bicarbonate infusion. Renogram canceled secondary to hemodynamic instability yesterday renal ultrasound performed revealed no hydronephrosis, creatinine continues to be elevated most likely secondary to acute kidney injury secondary to hypotension and septic shock. Nephrology consult pending. Echo revealed severe mitral valve stenosis and calcification with pulmonary hypertension and PASP 55.2 03/18: Remains sedated, orally intubated on mech vent. Off levophed. 03/19: Remains sedated, orally intubated on mechanical ventilation. Off Levophed. Blood pressure actually running high. Failed C Pap trials 03/20: Remains sedated, orally intubated on mechanical ventilation. Currently in A. fib. Off pressors. 03/21: Remains sedated, orally intubated on mechanical ventilation. In A. fib with RVR. Seen by Dr. Lubin on 03/21. Failed C Pap trials yesterday. 03/22: Remains sedated, orally intubated on mechanical ventilation. Remains in atrial fibrillation. Currently rate controlled with Cardizem drip. 03/23: Remains sedated, orally intubated on mechanical ventilation. On Cardizem drip for rate control for A. fib. 03/24: Remains drowsy off sedation, orally intubated on mechanical ventilation. Cardizem drip Her out for A. fib rate control. 03/25: Drowsy, easily arousable, squeezes my hand with her hands as well as wiggles her toes on command. Off Cardizem drip currently. Remains in A. fib rate controlled with by mouth Cardizem and amiodarone. 03/26: Seen earlier this morning. Patient extubated yesterday following C Pap trial. Currently on nasal cannula. Objective Vital Signs Date Time Temp Pulse Resp B/P (MAP) Pulse Ox O2 Delivery O2 Flow Rate FiO2 03/26/17 20:01 97 Nasal Cannula 4.00 03/26/17 18:14 72 03/26/17 16:00 98.1 23 131/69 (89) 03/25/17 08:37 40 Intake and Output 03/26/17 03/26/17 03/26/17 07:59 15:59 23:59 Intake Total 483 ml 1060 ml Output Total 2000 ml 1800 ml Balance -1517 ml -740 ml Result Diagram: 03/26/17 1230 03/26/17 1230 Imaging Last 48 hours Impressions Chest X-Ray 03/20/17 0600 Signed Impressions: Service Date/Time: Monday, March 20, 2017 04:57 - CONCLUSION: 1. Endotracheal tube and nasogastric tube in good position. Basilar airspace disease increased from March 18. Samuel Lin MD Last Impressions Chest X-Ray 03/17/17 0000 Signed Impressions: Service Date/Time: Friday, March 17, 2017 06:22 - CONCLUSION: Persistent infiltrates consolidation left lower lung and patchy infiltrates in the central right lung. Antonio Voss MD Renal Ultrasound 03/16/17 0000 Signed Impressions: Service Date/Time: Thursday, March 16, 2017 11:27 - CONCLUSION: The hydronephrosis has resolved. Urinary bladder is decompressed.. Jose Flores MD CT Angiography 03/15/17 0520 Signed Impressions: Service Date/Time: Wednesday, March 15, 2017 07:46 - CONCLUSION: 1. No evidence for pulmonary embolism. 2. Cardiomegaly with enlargement of pulmonary arteries likely from pulmonary arterial hypertension. 3. Bibasilar patchy densities could be atelectasis or infiltrate. 4. Mosaic attenuation which can be seen with small airway disease. 5. Enlarged precarinal and subcarinal adenopathy. Jai Queen MD Head CT 03/15/17 0000 Signed Impressions: Service Date/Time: Wednesday, March 15, 2017 07:47 - CONCLUSION: No acute intracranial disease. Jai Queen MD Abdomen/Pelvis CT 03/15/17 0000 Signed Impressions: Service Date/Time: Wednesday, March 15, 2017 07:51 - CONCLUSION: 1. Bilateral hydronephrosis with extensive stranding in the perinephric regions greater on the left. 2. Mild circumferential wall thickening within the bladder with mild distention. 3. Postsurgical changes rectosigmoid junction. 4. Small fat containing abdominal wall hernias. Jai Queen MD Last Impressions Chest X-Ray 03/16/17 0600 Signed Impressions: Service Date/Time: Thursday, March 16, 2017 04:58 - CONCLUSION: Persisting consolidation left mid and lower lung and improving infiltrates in the lower right lung. Antonio Voss MD CT Angiography 03/15/17 0520 Signed Impressions: Service Date/Time: Wednesday, March 15, 2017 07:46 - CONCLUSION: 1. No evidence for pulmonary embolism. 2. Cardiomegaly with enlargement of pulmonary arteries likely from pulmonary arterial hypertension. 3. Bibasilar patchy densities could be atelectasis or infiltrate. 4. Mosaic attenuation which can be seen with small airway disease. 5. Enlarged precarinal and subcarinal adenopathy. Jai Queen MD Head CT 03/15/17 Signed Impressions: Service Date/Time: Wednesday, March 15, 2017 07:47 - CONCLUSION: No acute intracranial disease. Jai Queen MD Abdomen/Pelvis CT 03/15/17 Signed Impressions: Service Date/Time: Wednesday, March 15, 2017 07:51 - CONCLUSION: 1. Bilateral hydronephrosis with extensive stranding in the perinephric regions greater on the left. 2. Mild circumferential wall thickening within the bladder with mild distention. 3. Postsurgical changes rectosigmoid junction. 4. Small fat containing abdominal wall hernias. Jai Queen MD Last Impressions Chest X-Ray 03/15/17519 Signed Impressions: Service Date/Time: Wednesday, March 15, 2017 05:41 - CONCLUSION: Opacity in the perihilar region bilaterally suggesting either central infiltrates or adenopathy. Antonio Voss MD CT Angiography 03/15/17 0520 Signed Impressions: Service Date/Time: Wednesday, March 15, 2017 07:46 - CONCLUSION: 1. No evidence for pulmonary embolism. 2. Cardiomegaly with enlargement of pulmonary arteries likely from pulmonary arterial hypertension. 3. Bibasilar patchy densities could be atelectasis or infiltrate. 4. Mosaic attenuation which can be seen with small airway disease. 5. Enlarged precarinal and subcarinal adenopathy. Jai Queen MD Head CT 03/15/17 0000 Signed Impressions: Service Date/Time: Wednesday, March 15, 2017 07:47 - CONCLUSION: No acute intracranial disease. Jai Queen MD Abdomen/Pelvis CT 9/22/17 0000 Signed Impressions: Service Date/Time: Wednesday, March 15, 2017 07:51 - CONCLUSION: 1. Bilateral hydronephrosis with extensive stranding in the perinephric regions greater on the left. 2. Mild circumferential wall thickening within the bladder with mild distention. 3. Postsurgical changes rectosigmoid junction. 4. Small fat containing abdominal wall hernias. Jai Queen MD Objective Remarks GENERAL: Elderly female, laying in bed in no acute distress SKIN: Warm and dry. HEAD: Atraumatic. Normocephalic. EYES: Pupils equal and round. No scleral icterus. No injection or drainage. ENT: No nasal bleeding or discharge. Mucous membranes pink and moist. NECK: Trachea midline. No JVD. CARDIOVASCULAR: Irregularly irregular rhythm. RESPIRATORY: Breath sounds equal bilaterally. Scattered rhonchi bilaterally, no wheezing GASTROINTESTINAL: Abdomen soft, protuberant non-tender, nondistended. No guarding. MUSCULOSKELETAL: Extremities without clubbing, cyanosis. Bilateral edema NEUROLOGICAL: Awake and alert. Following commands. Still slightly confused though recognizes friend and can name her . Moving all 4 extremities. Procedures 03/16- Renogram cancelled . Renal US performed. 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 Follow neuro status. Start aspirin 162 mg daily 03/15 CT brain-no intracranial abnormality Effexor placed on hold Respiratory: Acute Hypoxemic respiratory failure Pulmonary hypertension Carinal adenopathy Extubated on 03/25 following C Pap trial. Tolerating nasal cannula Bronchodilators every 6 hours scheduled and every [address] angiogram -pulmonary hypertension, no PE, enlarged precarinal and subcarinal lymphadenopathy 03/17- CXR -consolidations B/L lobes worsened Cardiovascular: A. fib RVR Hypertension Patient arrived on Cardizem infusion-heart rate 130's, discontinue for MAP less than 60. Patient's home med amiodarone 200 mg daily increased to 400 mg twice a day. Labetalol when necessary for hypertension. Off pressors currently. Last echo 01/2015- ejection fraction 55-60%. No RWMA. PAP 35 mmHg, TV mild regurg ,MV mild regurg ECHO 03/16-EF 55- 60%. No RWMA, severe mitral valve annular calcification. Moderate mitral stenosis. Trace to mild MR, moderate TR, PAS P 55.2, trivial pulmonary valve regurgitation EPS- Dr. Lubin consulted. Discussed with Dr. Lubin on 03/21, plan to transition to by mouth Cardizem. Patient previously has had GI bleed on anticoagulation hence we'll hold off on any anticoagulation currently. Currently off Cardizem drip for rate control, remains on by mouth Cardizem. Dr. Lubin agreeable with starting aspirin 162 mg by mouth daily. Being diuresed. Renal: Bilateral hydronephrosis-resolved Pyelonephrosis Acute kidney injury most likely secondary to septic shock Elevated creatinine Hypernatremia Insert and maintain Gallo catheter 03/14-CT of the abdomen and pelvis-bilateral hydronephrosis, pyelonephrosis, perinephric stranding 03/16 renal ultrasound-no hydronephrosis KVO IV fluids. On Bumex 1 mg IV daily to mobilize fluid -- Strict I/Os, monitor and replete electrolytes, follow BUN/creatinine. Hypernatremia improved with free water which is stopped. FEN/GI: History of colon cancer status post chemotherapy Abdominal hernia Advance by mouth diet as tolerated Bowel regimen Heme/ID: Septic shock Community-acquired multilobar pneumonia Lactic acidemia Bandemia-resolved Blood cultures Klebsiella Urine culture Klebsiella Follow-up sputum culture Streptococcal and legionella antigens negative ID consulted - Dr. Hansen On antibiotics per ID Heme- Onc consulted regarding carinal adenopathy lymphadenopathy, patient is S/ P completion of chemotherapy 06/2016 Endocrine: Diabetes mellitus Hypothyroidism High-dose insulin medication regimen, Levemir 15 units subcutaneously twice a day -hold for anticipated extubation as tube feeds will be held until tolerating by mouth. Continue Levothyroxine 50 mcgs/day Obtain thyroid panel Glucose monitoring per ICU protocol -- SSI Prophylaxis: GI Prophylaxis famotidine BID DVT Prophylaxis -- SCDs Heparin 5000u Q8H Lines: Port right chest, peripheral IVs 2, left radial A-line Dispo: Discussed with GALLERY OR MUSEUM TECHNICIAN. Being followed by family medicine team. Critical care will sign off at this time. Please reconsult if needed. Fernando Srinivasan MD Mar 26, 2017 20:59
[2017-03-26] MEDS ORDERED: MISCELLANEOUS NURSING INFORMATION XX SCH (21:30)
[2017-03-27] VITALS (26 sets, daily range): BP systolic 129–142; BP diastolic 72–83; PULSE 78–106; RESP 14–20; TEMP 97.6–98.5; O2SAT 94–96
[2017-03-27] MEDS: DILTIAZEM HCL 60 MG TAB PO SCH ×5 (00:45→23:38)
[2017-03-27] MEDS: CHLORHEXIDINE GLUCONATE 2 % 1 PACK (2 CLOTHS) TOP SCH ×2 (00:48→23:39)
[2017-03-27 05:28] LABS: AUTOMATED NEUTROPHIL # 9.5 TH/MM3 (1.8-7.7); BASOPHIL % 0.2 % (0.0-2.0); EOSINOPHIL # 0.1 TH/MM3 (0-0.4); EOSINOPHIL % 1.1 % (0.0-4.0); HEMO FLAGS DIFF FINAL; LYMPH % 9.4 % (9.0-44.0); LYMPHOCYTE # 1.1 TH/MM3 (1.0-4.8); MEAN CELL VOLUME 89.7 FL (80.0-100.0); MEAN CORPUSCULAR HEMOGLOBIN 29.5 PG (27.0-34.0); MEAN CORPUSCULAR HGB CONC 32.9 % (32.0-36.0); MONO % 9.7 % (0.0-8.0); NEUT % 79.6 % (16.0-70.0); PLATELET COUNT 168 TH/MM3 (150-450); RED BLOOD COUNT 3.34 MIL/MM3 (4.00-5.30); RED CELL DISTRIBUTION WIDTH 14.6 % (11.6-17.2); WHITE BLOOD COUNT 11.9 TH/MM3 (4.0-11.0)
[2017-03-27 05:32] LABS: BICARBONATE 34.2 MEQ/L (21.0-32.0); POTASSIUM 3.4 MEQ/L (3.5-5.1)
[2017-03-27] MEDS: HEPARIN SODIUM - SQ 10,000 UNITS/ML VIAL SQ SCH ×3 (05:48→23:35)
[2017-03-27] MEDS: LEVOTHYROXINE SODIUM 50 MCG TAB PO SCH (05:49)
[2017-03-27] MEDS: INSULIN ASPART SUPPLEMENTAL SCALE SQ SCH ×5 (05:49→21:00)
[2017-03-27] MEDS: DOCUSATE SODIUM 50 MG/SENNA 8.6 MG TAB PO SCH ×2 (09:00→23:35)
[2017-03-27] MEDS: SODIUM CHLORIDE 0.9% FLUSH 10 ML FLUSH IV FLUSH SCH ×2 (10:11→13:11)
[2017-03-27] MEDS: AMIODARONE 200 MG TAB PO SCH ×2 (10:12→23:35)
[2017-03-27] MEDS: FAMOTIDINE 20 MG TAB PO SCH ×2 (10:13→23:35)
[2017-03-27] MEDS: ASPIRIN EC 81 MG TABEC PO SCH (10:13)
[2017-03-27] MEDS: LEVOFLOXACIN 750 MG TAB PO SCH (10:14)
[2017-03-27] MEDS: PRAVASTATIN SOD 40 MG TAB PO SCH (10:14)
[2017-03-27] MEDS: FLUoxetine HCL LIQUID 20 MG/5 ML CUP PO SCH (10:15)
--- NOTE | 2017-03-27 10:51 | HHI.FPPN ---
Subjective Remarks Patient seen and examined this morning. Temp 98.5, Pulse 84, RR 14, BP 140/72, Pulse ox 94 on 3L. She reports that her strength is slowly returning. She denies any pain at this time. She is looking forward to getting out of the hospital and into the Rehab. [facility] Endorses: Generalized weakness from deconditioning Denies: Fever, chills, nausea, vomiting, shortness of breath, chest pain, headache, abdominal pain, calf pain All other review of symptoms were negative (Sumit Flor MD, R3) Objective Vitals Vital Signs Date Time Temp Pulse Resp B/P (MAP) Pulse Ox O2 Delivery O2 Flow Rate FiO2 03/27/17 10:04 92 03/27/17 09:05 92 03/27/17 08:15 98.5 84 14 140/72 (94) 94 03/27/17 08:05 92 03/27/17 07:00 88 03/27/17 06:00 84 03/27/17 05:00 82 03/27/17 04:00 80 03/27/17 04:00 98.4 82 18 136/75 (95) 95 03/27/17 03:00 78 03/27/17 02:00 82 03/27/17 01:00 78 03/27/17 00:00 98.1 89 20 141/83 (102) 94 03/27/17 00:00 83 03/26/17 23:00 64 03/26/17 23:00 20 03/26/17 22:00 80 03/26/17 20:01 97 Nasal Cannula 4.00 03/26/17 20:00 98.0 73 20 116/71 (86) 99 03/26/17 20:00 74 03/26/17 20:00 98.3 74 18 131/76 (94) 98 03/26/17 18:14 72 03/26/17 16:00 75 03/26/17 16:00 98.1 75 23 131/69 (89) 100 03/26/17 14:00 80 03/26/17 12:00 78 03/26/17 12:00 97.8 78 22 102/54 (70) 97 I/O 03/26/17 03/26/17 03/26/17 03/27/17/4/17 10/4/17 07:00 15:00 23:00 07:00 15:00 23:00 Intake Total 483 ml 1060 ml 480 ml Output Total 2000 ml 1800 ml Balance -1517 ml -740 ml 480 ml Intake Oral 360 ml 960 ml 480 ml IV Total 123 ml 100 ml Output Urine Total 2000 ml 1800 ml # Voids 0 2 # Bowel Movements 2 1 1 (Sumit Flor MD, R3) Result Diagram: 03/27/17 04503/27/17 045 Imaging Last Impressions Chest X-Ray 03/26/17 06 Signed Impressions: Service Date/Time: Sunday, March 26, 2017 05:09 - CONCLUSION: Decreasing bilateral airspace opacities, now mild. Endotracheal tube and nasogastric tube out. Jose Laurent MD Renal Ultrasound 03/16/17 0000 Signed Impressions: Service Date/Time: Thursday, March 16, 2017 11:27 - CONCLUSION: The hydronephrosis has resolved. Urinary bladder is decompressed.. Jose Flores MD CT Angiography 03/15/17 0520 Signed Impressions: Service Date/Time: Wednesday, March 15, 2017 07:46 - CONCLUSION: 1. No evidence for pulmonary embolism. 2. Cardiomegaly with enlargement of pulmonary arteries likely from pulmonary arterial hypertension. 3. Bibasilar patchy densities could be atelectasis or infiltrate. 4. Mosaic attenuation which can be seen with small airway disease. 5. Enlarged precarinal and subcarinal adenopathy. Jai Queen MD Head CT 03/15/17 0000 Signed Impressions: Service Date/Time: Wednesday, March 15, 2017 07:47 - CONCLUSION: No acute intracranial disease. Jai Queen MD Abdomen/Pelvis CT 03/15/17 0000 Signed Impressions: Service Date/Time: Wednesday, March 15, 2017 07:51 - CONCLUSION: 1. Bilateral hydronephrosis with extensive stranding in the perinephric regions greater on the left. 2. Mild circumferential wall thickening within the bladder with mild distention. 3. Postsurgical changes rectosigmoid junction. 4. Small fat containing abdominal wall hernias. Jai Queen MD Objective Remarks GENERAL: Well-nourished, well-developed obese female. Awake alert breathing on her own with 3 L nasal cannula SKIN: Warm and dry. HEAD: Normocephalic. EYES: No scleral icterus. No injection or drainage. NECK: Supple, trachea midline. No JVD or lymphadenopathy. CARDIOVASCULAR: Irregularly irregular rate and rhythm with systolic murmur RESPIRATORY: Breath sounds equal bilaterally. No accessory muscle use. GASTROINTESTINAL: Abdomen soft, non-tender, distended. Bowel sounds present. MUSCULOSKELETAL: No cyanosis, 2+ pitting edema in lower extremities bilaterally as well as edema in her hands 3 out of 5 strength in all extremities Medications and IVs Current Medications Medications (Trade) Dose Ordered Sig/Chiqui Route Start Time Stop Time Status Last Admin (Synthroid) 50 mcg DAILY@0600 PO 03/16/17 06:00 03/27/17 05:49 (Pravachol) 40 mg DAILY PO 03/16/17 09:00 03/27/17 10:14 (Ativan Inj) 1 mg Q4H PRN IV PUSH 03/15/17 14:00 (NS Flush) 2 ml UNSCH PRN IV FLUSH 03/15/17 14:30 (NS Flush) 2 ml BID IV FLUSH 03/15/17 21:00 03/27/17 10:11 (Zofran Inj) 4 mg Q6H PRN IV PUSH 03/15/17 14:30 (Duoneb Neb) 1 ampule Q2HR NEB PRN INH 03/15/17 14:30 03/19/17 22:26 (Chlorhexidine 2% Cloth) Taper DAILY@04 TOP 03/16/17 04:00 03/12/18 03:59 03/25/17 04:00 (Chlorhexidine 2% Cloth) 3 pack UNSCH PRN TOP 03/15/17 14:30 (Elsa-Colace) 1 tab BID PO 03/15/17 21:00 03/26/17 08:38 (Milk Of Magnesia Liq) 30 ml Q12H PRN PO 03/15/17 14:30 03/25/17 17:16 (Senokot) 17.2 mg Q12H PRN PO 03/15/17 14:30 (Dulcolax Supp) 10 mg DAILY PRN RECTAL 03/15/17 14:30 (D50w (Vial) Inj) 50 ml UNSCH PRN IV PUSH 03/15/17 15:15 (Glucagon Inj) 1 mg UNSCH PRN OTHER 03/15/17 15:15 (Heparin Inj) 5,000 units Q8HR SQ 03/15/17 22:00 03/27/17 05:48 (Cordarone) 400 mg BID PO 03/16/17 21:00 03/27/17 10:12 (Trandate Inj) 20 mg Q2H PRN IV 03/19/17 12:00 03/22/17 14:31 (PROzac LIQ) 20 mg DAILY PO 03/20/17 11:00 03/27/17 10:15 Diltiazem HCl 125 mg/Sodium Chloride 125 ml @ 5 mls/hr TITRATE PRN IV 03/21/17 07:45 03/23/17 20:51 (Levemir Inj) 15 units Q12HR SQ 03/21/17 09:00 Future Hold 03/24/17 20:42 (Bumex Inj) 1 mg DAILY IV PUSH 03/21/17 09:00 03/26/17 08:39 (Cardizem) 60 mg Q6HR PO 03/22/17 18:00 03/27/17 05:49 (NovoLOG SUPPLEMENTAL SCALE) 1 Q6HR SQ 03/22/17 18:00 03/26/17 16:54 (Levaquin) 750 mg Q48H PO 03/25/17 10:00 03/27/17 10:14 (Mag-Al Plus Susp Liq) 20 ml Q6H PRN PO 03/25/17 19:30 03/26/17 09:48 (Pepcid) 10 mg BID PO 03/26/17 21:00 03/27/17 10:13 (Tears Naturale Opth Soln) 1 drop TID PRN EACH EYE 03/26/17 09:45 (Lactulose Liq) 30 ml DAILY PRN NG 03/26/17 10:15 (Tylenol) 650 mg Q6H PRN PO 03/26/17 12:45 ([place] 5-325 Mg) 1 tab Q4H PRN PO 03/26/17 16:45 03/26/17 20:51 (Ecotrin Ec) 162 mg DAILY PO 03/27/17 09:00 03/27/17 10:13 Miscellaneous Information 1 Q361D XX 10/3/17 21:30 (Sumit Flor MD, R3) Date of Insertion: Mar 15, 2017 (Sumit Flor MD, R3) A/P Assessment and Plan Patient is a 71 year old female with a PMH significant for colon cancer s/p chemotherapy, atrial fibrillation on Eliquis, HTN, DM type 2, and MDD who presented to the ED with abdominal pain, nausea and vomiting and was found to have severe sepsis secondary to PNA and pyelonephritis in addition to atrial fibrillation with RVR. She rapidly decompensated into respiratory failure and was intubated on 03/15. At this time patient is improving and extubated. Discharge Planning Anticipate Discharge in next 2-3 days. Will likely need a SNF once improved as she will be very weak and debilitated. wdw: Dr. Greenberg (Sumit Flor MD, R3) Attending Attestation Patient seen and examined. Case reviewed and discussed with the resident team. Agree with plan of care as discussed with me and documented in the resident note. working on transitioning her from iv to po and then will work on long acting cardizem instead of short acting when she swallows whole pills reliably. can ask Cardiology if she needs amiodarone at her current dose or when to decrease (Lydia Greenberg MD) Problem List: (1) Sepsis due to Gram-negative organism with septic shock ICD Codes: A41.50 - Gram-negative sepsis, unspecified; R65.21 - Severe sepsis with septic shock Status: Resolved Plan: Neurologic: AMS-toxic encephalopathy secondary to sepsis History of TIA x 2 Major Depressive Disorder Neurochecks per ICU protocol Patient is extubated and breathing on 4 L nasal cannula. She is able to speak in full sentences 03/15 CT brain-no intracranial abnormality Neurology consulted- Dr. Huff to consider MRI brain if needed off sedation Fluoxetine 20 mg daily Respiratory: Acute Hypoxemic respiratory failure Pulmonary hypertension Carinal adenopathy 03/15 Patient intubated emergently FiO2 40, PEEP 5 today Maintain O2 sat greater than 92% Ventilator bundle Duonebs Q6H scheduled and Q2H when necessary 03/15 CT angiogram -pulmonary hypertension, no PE, enlarged precarinal and subcarinal lymphadenopathy 03/16 CXR shows persisting consolidation left mid and lower lung and improving infiltrates in the lower right lung 03/18 CXR: Stable basilar airspace disease 03/20 CXR: Increase basilar airspace disease 03/23 CXR: Basilar airspace disease with small effusions Concern for pneumonia, infectious disease on board and recommendations are appreciated Concern for worsening cardiac function resulting in some pulmonary edema. pt diuresed Pulmonary HTN not present on last echo in 2014, 03/16 Echo shows EF 55-60%, severe mitral annular calcification with moderate mitral valve stenosis, mildly dilated right atrium, mild to mod aortic valve stenosis, pulmonary arterial pressure 55.2 Breathing on 3 L nasal cannula satting at 100% Cardiovascular: A. fib RVR Hypertension Patient Cardizem infusion-heart rate now in 90' Amiodarone 400mg PO BID. labetalol when necessary for hypertension. Cardizem 60mg q6hr for control of heart rate. cardioversion only if unable to control rate Last echo 02/05- ejection fraction 55-60%. No RWMA. APA 35 mmHg, TV mild regurg, MV mild regurg 03/16 Echo results as above EPS- Dr. Lubin consulted Renal: Bilateral hydronephrosis Pyelonephrosis Continue Jacobsen catheter, once improved can do trial to remove jacobsen 03/14-CT of the abdomen and pelvis-bilateral hydronephrosis, pyelonephrosis, perinephric stranding -- Strict I/Os Urology consulted- 03/16 renal US shows resolution of hydronephrosis, urinary bladder decompressed Creatinine stable FEN/GI: History of colon cancer status post chemotherapy and colectomy Abdominal hernia Diabetic Diet Heme/ID: Septic Shock due to gram negative carmela Community-acquired multilobar pneumonia Pyelonephritis Lactic acidemia Bandemia 03/15 Blood cultures growing Klebsiella pneumoniae 03/15 urine culture growing Klebsiella pneumonia 03/16 sputum culture: No growth to date 2 days legionella and streptococcus antigens negative ID consulted - Dr. Hansen, treat with Levaquin. (vanc and cefepime have been discontinued) 03/19: Urine culture: No growth to date 2 Heme- Onc consulted regarding carinal adenopathy lymphadenopathy, patient is S/ P completion of chemotherapy 09/2016. Repeat CT chest in 1-2 months to evaluate mediastinal lymph nodes as outpatient Trend lactate level 6.4->4.2->4.9->3.0->1.5->2.2->2.3 Endocrine: Diabetes mellitus Hypothyroidism High-dose SSI every 6 hours Long-acting Levemir at 5 units twice a day, will monitor for hypoglycemia Continue Levothyroxine 50 mcgs/day Prophylaxis: GI Prophylaxis with famotidine BID DVT Prophylaxis with SCDs and Heparin 5000u Q8H Lines: Port right chest, peripheral IVs 2, left radial A-line (2) Pyelonephritis ICD Codes: N12 - Tubulo-interstitial nephritis, not specified as acute or chronic Status: Resolved (3) PNA (pneumonia) ICD Codes: J18.9 - Pneumonia, unspecified organism Status: Acute (4) Atrial fibrillation with rapid ventricular response ICD Codes: I48.91 - Atrial fibrillation with rapid ventricular response Status: Resolved (5) Diabetes mellitus, type II ICD Codes: E11.9 - Type 2 diabetes mellitus Status: Chronic (6) Hypertension ICD Codes: I10 - Essential (primary) hypertension Status: Chronic (7) Hypothyroidism ICD Codes: E03.9 - Hypothyroidism Status: Acute (8) Nutrition, metabolism, and development symptoms ICD Codes: R63.8 - Symptoms concerning nutrition, metabolism, and development Status: Acute (Sumit Flor MD, R3) Problem Qualifiers (1) PNA (pneumonia): Qualified Codes: J18.9 - Pneumonia, unspecified organism (2) Diabetes mellitus, type II: Qualified Codes: E11.9 - Type 2 diabetes mellitus without complications; Z79.4 - jail (current) use of insulin (3) Hypertension: Qualified Codes: I10 - Essential (primary) hypertension (4) Hypothyroidism: Qualified Codes: E03.9 - Hypothyroidism, unspecified Sumit Flor MD, R3 Mar 27, 2017 10:51 Lydia Greenberg MD Mar 28, 2017 13:52
--- NOTE | 2017-03-27 11:16 | HHI.IDPN ---
Subjective Subjective Remarks Patient is a 71-year-old female, admitted to the hospital for evaluation of abdominal pain, nausea and vomiting. She apparently has been complaining of left-sided abdominal pain goes down to the lower abdomen. She also started having nausea and vomiting. There was mention of some dysuria, urgency and frequency in the last 3-4 days. Patient also apparently has been having problem with shortness of breath over the last 3 weeks, and generalized weakness and easy fatigability. There was no mention of any fever or chills or sweats. On the morning of admission, the patient was noted to be confused, and was having more shortness of breath. There is no mention of any cough or congestion, or any complaint of any chest pain. Patient was brought into the hospital for further evaluation and treatment. Patient has had imaging studies done. CTA did not show any pulmonary embolism. CT of the abdomen and pelvis showing some mild bilateral hydronephrosis and some perinephric stranding. Her UA has pyuria. 2 blood cultures on admission are now reported as growing gram-negative carmela. Her WBC is normal. Creatinine is 1.32. Patient went into significant respiratory distress, and ended up getting intubated. She has received Zosyn, and vancomycin. Neurology has been consult. Infectious disease consultation requested to evaluate the patient with severe sepsis. Notes reviewed Doing well Temps ok WBC improving Not SOB Still very weak Gallo out, incontinent Antibiotics Levaquin Lines Port Past Medical History Reviewed Allergies: Coded Allergies: codeine (Unverified Allergy, Severe, Nausea/Vomiting, 03/15/17) Uncoded Allergies: METAL (Allergy, Intermediate, hives, 03/08/16) SURGICAL STEEL (Allergy, Intermediate, hives, 03/08/16) Objective . Vital Signs Date Time Temp Pulse Resp B/P (MAP) Pulse Ox O2 Delivery O2 Flow Rate FiO2 03/27/17 10:04 92 03/27/17 09:05 92 03/27/17 08:15 98.5 84 14 140/72 (94) 94 03/27/17 08:05 92 03/27/17 07:00 88 03/27/17 06:00 84 03/27/17 05:00 82 03/27/17 04:00 80 03/27/17 04:00 98.4 82 18 136/75 (95) 95 03/27/17 03:00 78 03/27/17 02:00 82 03/27/17 01:00 78 03/27/17 00:00 98.1 89 20 141/83 (102) 94 03/27/17 00:00 83 03/26/17 23:00 64 03/26/17 23:00 20 03/26/17 22:00 80 03/26/17 20:01 97 Nasal Cannula 4.00 03/26/17 20:00 98.0 73 20 116/71 (86) 99 03/26/17 20:00 74 03/26/17 20:00 98.3 74 18 131/76 (94) 98 03/26/17 18:14 72 03/26/17 16:00 75 03/26/17 16:00 98.1 75 23 131/69 (89) 100 03/26/17 14:00 80 03/26/17 12:00 78 03/26/17 12:00 97.8 78 22 102/54 (70) 97 . Laboratory Tests Test 03/26/17 12:30 03/27/17 04:50 White Blood Count 12.0 TH/MM3 11.9 TH/MM3 Red Blood Count 3.35 MIL/MM3 3.34 MIL/MM3 Hemoglobin 9.9 GM/DL 9.9 GM/DL Hematocrit 30.1 % 30.0 % Mean Corpuscular Volume 90.0 FL 89.7 FL Mean Corpuscular Hemoglobin 29.6 PG 29.5 PG Mean Corpuscular Hemoglobin Concent 32.9 % 32.9 % Red Cell Distribution Width 14.3 % 14.6 % Platelet Count 171 TH/MM3 168 TH/MM3 Mean Platelet Volume 9.7 FL 9.7 FL Neutrophils (%) (Auto) 90.9 % 79.6 % Lymphocytes (%) (Auto) 4.9 % 9.4 % Monocytes (%) (Auto) 3.8 % 9.7 % Eosinophils (%) (Auto) 0.2 % 1.1 % Basophils (%) (Auto) 0.2 % 0.2 % Neutrophils # (Auto) 10.9 TH/MM3 9.5 TH/MM3 Lymphocytes # (Auto) 0.6 TH/MM3 1.1 TH/MM3 Monocytes # (Auto) 0.5 TH/MM3 1.2 TH/MM3 Eosinophils # (Auto) 0.0 TH/MM3 0.1 TH/MM3 Basophils # (Auto) 0.0 TH/MM3 0.0 TH/MM3 CBC Comment DIFF FINAL DIFF FINAL Differential Comment Laboratory Tests Test 03/26/17 12:30 03/26/17 22:00 03/27/17 04:50 Blood Urea Nitrogen 32 MG/DL 26 MG/DL Creatinine 1.16 MG/DL 1.11 MG/DL Random Glucose 260 MG/DL 123 MG/DL Total Protein 5.8 GM/DL Albumin 1.9 GM/DL Calcium Level 8.0 MG/DL 8.0 MG/DL Magnesium Level 2.2 MG/DL Alkaline Phosphatase 195 U/L Aspartate Amino Transf (AST/SGOT) 49 U/L Alanine Aminotransferase (ALT/SGPT) 37 U/L Total Bilirubin 0.5 MG/DL Sodium Level 139 MEQ/L 141 MEQ/L Potassium Level 3.2 MEQ/L 3.9 MEQ/L 3.4 MEQ/L Chloride Level 99 MEQ/L 101 MEQ/L Carbon Dioxide Level 34.1 MEQ/L 34.2 MEQ/L Anion Gap 6 MEQ/L 6 MEQ/L Estimat Glomerular Filtration Rate 46 ML/MIN 49 ML/MIN Ammonia 27 MCMOL/L Imaging Chest X-Ray 03/21/17 0000 Signed Impressions: Service Date/Time: February 09:45 - CONCLUSION: 1. Consolidation of the left lower lobe. 2. Diffuse chronic interstitial changes mildly improved compared to previous. 3. The ET tube is somewhat high approximately 7 cm above the angelica. Quincy Resendez MD Chest X-Ray 03/20/17 0600 Signed Impressions: Service Date/Time: Monday, March 20, 2017 04:57 - CONCLUSION: 1. Endotracheal tube and nasogastric tube in good position. Basilar airspace disease increased from March 18. Samuel Lin MD Chest X-Ray 03/18/17 0600 Signed Impressions: Service Date/Time: Saturday, March 18, 2017 03:45 - CONCLUSION: 1. Apparatus in good position. Relatively stable basilar airspace disease. Samuel Lin MD Chest X-Ray 03/17/17 0000 Signed Impressions: Service Date/Time: Friday, March 17, 2017 06:22 - CONCLUSION: Persistent infiltrates consolidation left lower lung and patchy infiltrates in the central right lung. Antonio Voss MD Chest X-Ray 03/16/17 0600 Signed Impressions: Service Date/Time: Thursday, March 16, 2017 04:58 - CONCLUSION: Persisting consolidation left mid and lower lung and improving infiltrates in the lower right lung. Antonio Voss MD Renal Ultrasound 03/16/17 0000 Signed Impressions: Service Date/Time: Thursday, March 16, 2017 11:27 - CONCLUSION: The hydronephrosis has resolved. Urinary bladder is decompressed.. Jose Flores MD CT Angiography 03/15/17 0520 Signed Impressions: Service Date/Time: Wednesday, March 15, 2017 07:46 - CONCLUSION: 1. No evidence for pulmonary embolism. 2. Cardiomegaly with enlargement of pulmonary arteries likely from pulmonary arterial hypertension. 3. Bibasilar patchy densities could be atelectasis or infiltrate. 4. Mosaic attenuation which can be seen with small airway disease. 5. Enlarged precarinal and subcarinal adenopathy. Jai Queen MD Head CT 03/15/17 0000 Signed Impressions: Service Date/Time: Wednesday, March 15, 2017 07:47 - CONCLUSION: No acute intracranial disease. Jai Queen MD Abdomen/Pelvis CT 03/15/17 0000 Signed Impressions: Service Date/Time: Wednesday, March 15, 2017 07:51 - CONCLUSION: 1. Bilateral hydronephrosis with extensive stranding in the perinephric regions greater on the left. 2. Mild circumferential wall thickening within the bladder with mild distention. 3. Postsurgical changes rectosigmoid junction. 4. Small fat containing abdominal wall hernias. Jai Queen MD Physical Exam GENERAL: Awake and alert, NAD SKIN: Warm and dry. No generalized rash EYES: [place] conjunctiva. No petechia or hemorrhage. Pupils equal, round and reactive to light. No scleral icterus. No injection or drainage. EARS, NOSE AND THROAT: Nose without bleeding or purulent nasal discharge. Moist oral mucosa NECK: Trachea midline. Supple and no meningeal signs CARDIOVASCULAR: Irregular rate and rhythm. No murmurs, rubs or gallops heard RESPIRATORY: Coarse breath sounds. Decreased at the bases. ABDOMEN: Distended, not tender, not distended. Bowel sounds present and hypoactive. No guarding. EXTREMITIES: No clubbing, cyanosis. Edema both hands and feet. Well perfused and warm. NEUROLOGICAL: Grossly non-focal PSYCHIATRIC: Cooperative LINE: No evidence of infection - port R upper chest Assessment & Plan Remarks IMPRESSION Severe sepsis, Klebsiella urosepsis, - off pressors - has pyelonephritis (has perinephric stranding on CT and mild hydro, no stone seen, no colitis on CT, has complaints) Respiratory failure, bilateral infiltrates, ?PNA - prob multifactorial: Fluid, inflammatory, ?PNA - sputum C/S negative Known Colon CA, with (+) LN, undergoing chemo - S/P sigmoid colectomy, low anterior resection Renal insufficiency due to sepsis Atrial fib, chronic, previous ablation done and MS Leukocytosis, up again, likely reactive Recurrent fevers, ?new PNA - temps better RECOMMENDATION Continue Levaquin - end date ordered in [employer] She is clinically doing well from ID standpoint I will be available prn Please reconsult if with any new ID issue or question Explained plan to patient and Rosaura Hansen MD Mar 27, 2017 11:16
[2017-03-27] MEDS ORDERED: POTASSIUM CHLORIDE 10 MEQ CONTROLLED RELEASE TAB PO ONE (12:30)
[2017-03-27] MEDS: BUMETANIDE INJ 1 MG/4 ML VIAL IV PUSH SCH (13:11)
--- NOTE | 2017-03-27 13:20 | PD.WCN.NOT ---
Wound Consult Description: Received consult for for wound management of decubitus to Sacrum from Doctor Lydia Greenberg.Patient is being followed for DTIs to sacral and R upper buttock areas and was seen last week. Communicated with: GEORGI Orozco [facility] and call placed to Doctor for orders Recommendation: 1.Please cleanse bilateral buttock, and sacral areas with soap and water gently and pat dry. Apply thick layer of [place] barrier cream BID and PRN and leave open to air.Please do not scrub barrier cream off skin when cleaning patient. OK to not remove all barrier cream, may layer barrier cream on patient 2.Please keep patient turned and repositioned every 2 hours. Please obtain [place] airapy bed, if not available please order advanced IV bed from [facility] Additional Information: Patient seen on [facility] for for follow up of previously noted DTIs to sacrum and R upper buttock. Patient positioned to L side for wound assessment. Patient DTI opened to partial thickness skin loss on R upper buttock and measures 2cm x2cm x ~<0.1cm, is now classified as stage 2 pressure injury. DTI previously noted to sacrum, is now partially opened between 9 and 1 o'clock at the edges to partial thickness skin loss.Sacral DTI measures 2cm x 1cm. Patient is having multiple incontinent episodes of stool and urine. RN DOCUMENTATION, card writer hand and GEORGI Orozco cleansed patient's buttock area with soap and water patted dry before applying a thick layer of barrier cream. All linen changed on patient's bed at this time. Patient is on a [place] foam [facility] bed , could benefit from low air loss mattress due to the DTI on sacral area. Sanjana Goodwin [facility] Mar 27, 2017 13:20
--- NOTE | 2017-03-27 18:09 | HHI.NPPN ---
Subjective History of Present Illness 71-year-old female with past medical history of colon cancer, diabetes mellitus, hypertension, hypothyroidism, history of TIA, history of chemotherapy for colon cancer, was admitted to the hospital with complaint of abdominal pain, nausea and vomiting. I was called to see the patient because of elevated creatinine. The patient did not have any previous history of renal disease. Her creatinine looking back it was 0.6 last month and she came with a creatinine 1.3 and has gone up to 1.8. Additional Remarks Patient is alert, breathing is better, has mild abd. pain, started eating. Review of Systems General General Remarks Intubated and sedated. Objective Data Data Vital Signs Date Time Temp Pulse Resp B/P (MAP) Pulse Ox O2 Delivery O2 Flow Rate FiO2 03/27/17 16:29 97.6 83 16 129/74 (92) 03/27/17 14:22 94 3.00 03/27/17 12:24 97.8 92 16 142/73 (96) 94 03/27/17 12:10 92 03/27/17 11:13 94 03/27/17 10:04 92 03/27/17 09:05 92 03/27/17 08:15 98.5 84 14 140/72 (94) 94 03/27/17 08:05 92 03/27/17 07:00 88 03/27/17 06:00 84 03/27/17 05:00 82 03/27/17 04:00 80 03/27/17 04:00 98.4 82 18 136/75 (95) 95 03/27/17 03:00 78 03/27/17 02:00 82 03/27/17 01:00 78 03/27/17 00:00 98.1 89 20 141/83 (102) 94 03/27/17 00:00 83 03/26/17 23:00 64 03/26/17 23:00 20 03/26/17 22:00 80 03/26/17 20:01 97 Nasal Cannula 4.00 03/26/17 20:00 98.0 73 20 116/71 (86) 99 03/26/17 20:00 74 03/26/17 20:00 98.3 74 18 131/76 (94) 98 03/26/17 18:14 72 -: 03/27/17 0450 03/27/17 0450 Physical Exam General Appearance: No Acute Distress, Comfortable Eyes Eye Exam: Pupils Equal Throat Throat Exam: Oral Mucosa [place] & Moist Neck Neck Exam: Neck Supple, Trachea Midline Pulmonary Resp Exam: Rhonchi, Decreased Bases, Diminished Breath Sounds, Poor Inspiratory Effort Cardiology CV Exam: Regular, Tachycardia Gastrointestinal/Abdomen GI Exam: Soft, Non-Tender, Bowel Sounds Present, Non-Distended Integumentary Skin Exam: Intact Extremeties Extremities Exam: No Edema, Trace Edema Neurologic Neuro Exam: Alert, Awake Psychiatric Psych Exam: Appropriate Responses Assessment/Plan Assessment Summary: ASH/Acute Renal Failure, Hypotension Problem List: (1) Respiratory failure ICD Codes: J96.90 - Respiratory failure, unspecified, unspecified whether with hypoxia or hypercapnia (2) Acute kidney failure ICD Codes: N17.9 - Acute kidney failure, unspecified (3) Hypothyroidism ICD Codes: E03.9 - Hypothyroidism Status: Acute (4) Hypertension ICD Codes: I10 - Essential (primary) hypertension Status: Chronic (5) PNA (pneumonia) ICD Codes: J18.9 - Pneumonia, unspecified organism Status: Acute (6) Hyperlipidemia ICD Codes: E78.5 - Hyperlipidemia Status: Acute (7) Cancer, colon ICD Codes: C18.9 - Malignant neoplasm of colon, unspecified Status: Acute Plan Most likely has ASH due to ATN. Patient has been non oliguric. Continue Bumex, has been non oliguric. Good UOP Avoid Nephrotoxins. Creatinine continue to improve, now 1.1. Follow the urine out put and BMP. Problem Qualifiers (1) Hypothyroidism: Qualified Codes: E03.9 - Hypothyroidism, unspecified (2) Hypertension: Qualified Codes: I10 - Essential (primary) hypertension (3) PNA (pneumonia): Qualified Codes: J18.9 - Pneumonia, unspecified organism Aixa Figueroa MD Mar 27, 2017 18:09
[2017-03-27] MEDS: INSULIN DETEMIR 100 UNITS/ML VIAL SQ SCH (23:36)
[2017-03-28] VITALS (8 sets, daily range): BP systolic 125–173; BP diastolic 67–89; PULSE 76–97; RESP 17–22; TEMP 97.4–98.9; O2SAT 90–97
[2017-03-28] MEDS: HEPARIN SODIUM - SQ 10,000 UNITS/ML VIAL SQ SCH ×2 (06:10→14:00)
[2017-03-28] MEDS: DILTIAZEM HCL 60 MG TAB PO SCH ×4 (06:10→23:40)
[2017-03-28] MEDS: LEVOTHYROXINE SODIUM 50 MCG TAB PO SCH (06:10)
[2017-03-28 07:37] LABS: HEMATOCRIT 28.7 % (35.0-46.0); MEAN CELL VOLUME 89.7 FL (80.0-100.0); MEAN CORPUSCULAR HEMOGLOBIN 29.9 PG (27.0-34.0); MEAN CORPUSCULAR HGB CONC 33.3 % (32.0-36.0); PLATELET COUNT 164 TH/MM3 (150-450); RED CELL DISTRIBUTION WIDTH 14.3 % (11.6-17.2); REVIEW FLAG FINAL; WHITE BLOOD COUNT 11.2 TH/MM3 (4.0-11.0)
[2017-03-28 07:53] LABS: BICARBONATE 30.1 MEQ/L (21.0-32.0); POTASSIUM 3.5 MEQ/L (3.5-5.1)
[2017-03-28] MEDS: INSULIN ASPART SUPPLEMENTAL SCALE SQ SCH ×3 (08:00→17:00)
--- NOTE | 2017-03-28 08:35 | HHI.FPPN ---
Subjective Remarks Patient seen and examined this morning. Temp 97.5, pulse 83, RR 18, BP 153/88, Pulse ox 96 2L NC. She reports that she is feeling better today and feels like her strength has improved some. She says that she was having some difficulty with controlling her urination, but feels it has improved some this morning. She is looking forward to getting out of the hospital and to [facility]. Endorses: Generalized weakness from deconditioning, urinary incontinence Denies: Fever, chills, nausea, vomiting, shortness of breath, chest pain, headache, abdominal pain, calf pain All other review of symptoms were negative (Sumit Flor MD, R3) Objective Vitals Vital Signs Date Time Temp Pulse Resp B/P (MAP) Pulse Ox O2 Delivery O2 Flow Rate FiO2 03/28/17 04:00 97.5 83 18 153/88 (109) 96 03/28/17 00:00 97.8 81 18 140/69 (92) 97 03/27/17 20:00 97.6 84 18 131/74 (93) 96 03/27/17 20:00 Nasal Cannula 2.00 03/27/17 20:00 83 03/27/17 18:00 88 03/27/17 17:00 92 03/27/17 16:29 97.6 83 16 129/74 (92) 03/27/17 16:00 90 03/27/17 15:00 106 03/27/17 14:22 94 3.00 03/27/17 14:00 98 03/27/17 13:00 92 03/27/17 12:24 97.8 92 16 142/73 (96) 94 03/27/17 12:10 92 03/27/17 12:00 92 03/27/17 11:13 94 03/27/17 11:00 94 03/27/17 10:04 92 03/27/17 09:05 92 I/O 03/27/17 03/27/17 03/27/17 03/28/17 03/28/17 03/28/17 07:00 15:00 23:00 07:00 15:00 23:00 Intake Total 480 ml 800 ml 720 ml Balance 480 ml 800 ml 720 ml Intake Oral 480 ml 800 ml 720 ml # Voids 2 5 3 # Bowel Movements 1 3 1 (Sumit Flor MD, R3) Result Diagram: 03/28/1761803/28/17618 Imaging Last Impressions Chest X-Ray 03/26/17599 Signed Impressions: Service Date/Time: Sunday, March 26, 2017 05:09 - CONCLUSION: Decreasing bilateral airspace opacities, now mild. Endotracheal tube and nasogastric tube out. Jose Laurent MD Renal Ultrasound 03/16/17 0000 Signed Impressions: Service Date/Time: Thursday, March 16, 2017 11:27 - CONCLUSION: The hydronephrosis has resolved. Urinary bladder is decompressed.. Jose Flores MD CT Angiography 03/15/17 0520 Signed Impressions: Service Date/Time: Wednesday, March 15, 2017 07:46 - CONCLUSION: 1. No evidence for pulmonary embolism. 2. Cardiomegaly with enlargement of pulmonary arteries likely from pulmonary arterial hypertension. 3. Bibasilar patchy densities could be atelectasis or infiltrate. 4. Mosaic attenuation which can be seen with small airway disease. 5. Enlarged precarinal and subcarinal adenopathy. Jai Queen MD Head CT 03/15/17 0000 Signed Impressions: Service Date/Time: Wednesday, March 15, 2017 07:47 - CONCLUSION: No acute intracranial disease. Jai Queen MD Abdomen/Pelvis CT 03/15/17 0000 Signed Impressions: Service Date/Time: Wednesday, March 15, 2017 07:51 - CONCLUSION: 1. Bilateral hydronephrosis with extensive stranding in the perinephric regions greater on the left. 2. Mild circumferential wall thickening within the bladder with mild distention. 3. Postsurgical changes rectosigmoid junction. 4. Small fat containing abdominal wall hernias. Jai Queen MD Objective Remarks GENERAL: Well-nourished, well-developed obese female. Awake alert lying in bed breathing on her own with 2 L nasal cannula SKIN: Warm and dry. HEAD: Normocephalic. EYES: No scleral icterus. No injection or drainage. NECK: Supple, trachea midline. No JVD or lymphadenopathy. CARDIOVASCULAR: Irregularly irregular rate and rhythm with systolic murmur RESPIRATORY: Breath sounds equal bilaterally. No accessory muscle use. GASTROINTESTINAL: Abdomen soft, non-tender, distended. Bowel sounds present. MUSCULOSKELETAL: No cyanosis, 2+ pitting edema in lower extremities bilaterally as well as edema in her hands 3 out of 5 strength in all extremities Medications and IVs Current Medications Medications (Trade) Dose Ordered Sig/Chiqui Route Start Time Stop Time Status Last Admin (Synthroid) 50 mcg DAILY@0600 PO 03/16/17 06:00 03/28/17 06:10 (Pravachol) 40 mg DAILY PO 03/16/17 09:00 03/27/17 10:14 (Ativan Inj) 1 mg Q4H PRN IV PUSH 03/15/17 14:00 (NS Flush) 2 ml UNSCH PRN IV FLUSH 03/15/17 14:30 (NS Flush) 2 ml BID IV FLUSH 03/15/17 21:00 03/27/17 13:11 (Zofran Inj) 4 mg Q6H PRN IV PUSH 03/15/17 14:30 (Duoneb Neb) 1 ampule Q2HR NEB PRN INH 03/15/17 14:30 03/19/17 22:26 (Chlorhexidine 2% Cloth) Taper DAILY@04 TOP 03/16/17 04:00 03/12/18 03:59 03/25/17 04:00 (Elsa-Colace) 1 tab BID PO 03/15/17 21:00 03/27/17 23:35 (Milk Of Magnesia Liq) 30 ml Q12H PRN PO 03/15/17 14:30 03/25/17 17:16 (Senokot) 17.2 mg Q12H PRN PO 03/15/17 14:30 (Dulcolax Supp) 10 mg DAILY PRN RECTAL 03/15/17 14:30 (D50w (Vial) Inj) 50 ml UNSCH PRN IV PUSH 03/15/17 15:15 (Glucagon Inj) 1 mg UNSCH PRN OTHER 03/15/17 15:15 (Heparin Inj) 5,000 units Q8HR SQ 03/15/17 22:00 03/28/17 06:10 (Cordarone) 400 mg BID PO 03/16/17 21:00 03/27/17 23:35 (Trandate Inj) 20 mg Q2H PRN IV 03/19/17 12:00 03/22/17 14:31 (PROzac LIQ) 20 mg DAILY PO 03/20/17 11:00 03/27/17 10:15 Diltiazem HCl 125 mg/Sodium Chloride 125 ml @ 5 mls/hr TITRATE PRN IV 03/21/17 07:45 03/23/17 20:51 (Bumex Inj) 1 mg DAILY IV PUSH 03/21/17 09:00 03/27/17 13:11 (Cardizem) 60 mg Q6HR PO 03/22/17 18:00 03/28/17 06:10 (Levaquin) 750 mg Q48H PO 03/25/17 10:00 04/04/17 23:00 03/27/17 10:14 (Mag-Al Plus Susp Liq) 20 ml Q6H PRN PO 03/25/17 19:30 03/26/17 09:48 (Pepcid) 10 mg BID PO 03/26/17 21:00 03/27/17 23:35 (Tears Naturale Opth Soln) 1 drop TID PRN EACH EYE 03/26/17 09:45 (Lactulose Liq) 30 ml DAILY PRN NG 03/26/17 10:15 (Tylenol) 650 mg Q6H PRN PO 03/26/17 12:45 (Hominy 5-325 Mg) 1 tab Q4H PRN PO 03/26/17 16:45 03/26/17 20:51 (Ecotrin Ec) 162 mg DAILY PO 03/27/17 09:00 03/27/17 10:13 Miscellaneous Information 1 Q361D XX 03/26/17 21:30 (Levemir Inj) 5 units Q12HR SQ 03/27/17 21:00 03/27/17 23:36 (NovoLOG SUPPLEMENTAL SCALE) 1 ACHS SLIDING SCALE SQ 03/27/17 12:00 03/27/17 13:10 (Sumit Flor MD, R3) Date of Insertion: Mar 15, 2017 (Sumit Flor MD, R3) A/P Assessment and Plan Patient is a 71 year old female with a PMH significant for colon cancer s/p chemotherapy, atrial fibrillation on Eliquis, HTN, DM type 2, and MDD who presented to the ED with abdominal pain, nausea and vomiting and was found to have severe sepsis secondary to PNA and pyelonephritis in addition to atrial fibrillation with RVR. She rapidly decompensated into respiratory failure and was intubated on 03/15. At this time patient is improving and extubated. Discharge Planning Anticipate Discharge in next 2-3 days. Will likely need a SNF once improved as she will be very weak and debilitated. wdw: Dr. Greenberg (Sumit Flor MD, R3) Attending Attestation Patient seen and examined. Case reviewed and discussed with the resident team. Agree with plan of care as discussed with me and documented in the resident note. appreciate help of Anaya and wound care. her wounds should heal well once she is up more and moving around (Lydia Greenberg MD) Problem List: (1) Sepsis due to Gram-negative organism with septic shock ICD Codes: A41.50 - Gram-negative sepsis, unspecified; R65.21 - Severe sepsis with septic shock Status: Resolved Plan: Neurologic: AMS-toxic encephalopathy secondary to sepsis History of TIA x 2 Major Depressive Disorder Patient is extubated and breathing on 2 L nasal cannula. She is able to speak in full sentences 03/15 CT brain-no intracranial abnormality Neurology consulted- Dr. Huff to consider MRI brain if needed off sedation Fluoxetine 20 mg daily Respiratory: Acute Hypoxemic respiratory failure Pulmonary hypertension Carinal adenopathy 03/15 Patient intubated emergently FiO2 40, PEEP 5 today Maintain O2 sat greater than 92% Ventilator bundle Duonebs Q6H scheduled and Q2H when necessary 03/15 CT angiogram -pulmonary hypertension, no PE, enlarged precarinal and subcarinal lymphadenopathy 03/16 CXR shows persisting consolidation left mid and lower lung and improving infiltrates in the lower right lung 03/18 CXR: Stable basilar airspace disease 03/20 CXR: Increase basilar airspace disease 03/23 CXR: Basilar airspace disease with small effusions Resolving pneumonia, infectious disease has signed off Concern for worsening cardiac function resulting in some pulmonary edema. pt diuresed Pulmonary HTN not present on last echo in 03/16 Echo shows EF 55-60%, severe mitral annular calcification with moderate mitral valve stenosis, mildly dilated right atrium, mild to mod aortic valve stenosis, pulmonary arterial pressure 55.2 Breathing on 2 L nasal cannula satting at 96% Cardiovascular: A. fib RVR Hypertension Patient Cardizem infusion-heart rate now in Amiodarone 400mg PO BID. labetalol when necessary for hypertension. Cardizem 60mg q6hr for control of heart rate. cardioversion only if unable to control rate Last echo 02/05- ejection fraction 55-60%. No RWMA. APA 35 mmHg, TV mild regurg, MV mild regurg 03/16 Echo results as above EPS- Dr. Lubin consulted, has signed off Renal: Bilateral hydronephrosis Pyelonephrosis Continue Jacobsen catheter, once improved can do trial to remove jacobsen 03/14-CT of the abdomen and pelvis-bilateral hydronephrosis, pyelonephrosis, perinephric stranding -- Strict I/Os Urology consulted, has signed off- 03/16 renal US shows resolution of hydronephrosis, urinary bladder decompressed Nephrology consulted, recommendations appreciated Creatinine stable FEN/GI: History of colon cancer status post chemotherapy and colectomy Abdominal hernia Diabetic Diet Heme/ID: Septic Shock due to gram negative carmela Community-acquired multilobar pneumonia Pyelonephritis Lactic acidemia Bandemia 03/15 Blood cultures growing Klebsiella pneumoniae 03/15 urine culture growing Klebsiella pneumonia 03/16 sputum culture: No growth to date 2 days legionella and streptococcus antigens negative ID consulted - Dr. Hansen, treat with Levaquin. (vanc and cefepime have been discontinued) 03/19: Urine culture: No growth to date 2 Heme- Onc consulted regarding carinal adenopathy lymphadenopathy, patient is S/ P completion of chemotherapy 09/2016. Repeat CT chest in 1-2 months to evaluate mediastinal lymph nodes as outpatient Trend lactate level 6.4->4.2->4.9->3.0->1.5->2.2->2.3 Endocrine: Diabetes mellitus Hypothyroidism High-dose SSI every 6 hours Long-acting Levemir at 5 units twice a day, will monitor for hypoglycemia Continue Levothyroxine 50 mcgs/day Prophylaxis: GI Prophylaxis with famotidine BID DVT Prophylaxis with SCDs and Heparin 5000u Q8H Lines: Port right chest, peripheral IVs 2, left radial A-line (2) Pyelonephritis ICD Codes: N12 - Tubulo-interstitial nephritis, not specified as acute or chronic Status: Resolved (3) PNA (pneumonia) ICD Codes: J18.9 - Pneumonia, unspecified organism Status: Acute (4) Atrial fibrillation with rapid ventricular response ICD Codes: I48.91 - Atrial fibrillation with rapid ventricular response Status: Resolved (5) Diabetes mellitus, type II ICD Codes: E11.9 - Type 2 diabetes mellitus Status: Chronic (6) Hypertension ICD Codes: I10 - Essential (primary) hypertension Status: Chronic (7) Hypothyroidism ICD Codes: E03.9 - Hypothyroidism Status: Acute (8) Nutrition, metabolism, and development symptoms ICD Codes: R63.8 - Symptoms concerning nutrition, metabolism, and development Status: Acute (Sumit Flor MD, R3) Problem Qualifiers (1) PNA (pneumonia): Qualified Codes: J18.9 - Pneumonia, unspecified organism (2) Diabetes mellitus, type II: Qualified Codes: E11.9 - Type 2 diabetes mellitus without complications; 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
[2017-03-28] MEDS: INSULIN DETEMIR 100 UNITS/ML VIAL SQ SCH ×2 (09:00→23:40)
[2017-03-28] MEDS: FLUoxetine HCL LIQUID 20 MG/5 ML CUP PO SCH (09:33)
[2017-03-28] MEDS: BUMETANIDE INJ 1 MG/4 ML VIAL IV PUSH SCH (09:34)
[2017-03-28] MEDS: ASPIRIN EC 81 MG TABEC PO SCH (09:34)
[2017-03-28] MEDS: AMIODARONE 200 MG TAB PO SCH ×2 (09:34→23:41)
[2017-03-28] MEDS: DOCUSATE SODIUM 50 MG/SENNA 8.6 MG TAB PO SCH ×2 (09:34→23:41)
[2017-03-28] MEDS: PRAVASTATIN SOD 40 MG TAB PO SCH (09:34)
[2017-03-28] MEDS: FAMOTIDINE 20 MG TAB PO SCH ×2 (09:34→23:41)
[2017-03-28] MEDS: SODIUM CHLORIDE 0.9% FLUSH 10 ML FLUSH IV FLUSH SCH ×2 (09:35→23:42)
--- NOTE | 2017-03-28 12:16 | HHI.NPPN ---
Subjective History of Present Illness 71-year-old female with past medical history of colon cancer, diabetes mellitus, hypertension, hypothyroidism, history of TIA, history of chemotherapy for colon cancer, was admitted to the hospital with complaint of abdominal pain, nausea and vomiting. I was called to see the patient because of elevated creatinine. The patient did not have any previous history of renal disease. Her creatinine looking back it was 0.6 last month and she came with a creatinine 1.3 and has gone up to 1.8. Additional Remarks Patient is alert, breathing is better, with nasal cannula, not in distress. Review of Systems General General Remarks Intubated and sedated. Objective Data Data Vital Signs Date Time Temp Pulse Resp B/P (MAP) Pulse Ox O2 Delivery O2 Flow Rate FiO2 03/28/17 08:42 98.9 90 17 140/72 (94) 90 03/28/17 04:00 97.5 83 18 153/88 (109) 96 03/28/17 00:00 97.8 81 18 140/69 (92) 97 03/27/17 20:00 97.6 84 18 131/74 (93) 96 03/27/17 20:00 Nasal Cannula 2.00 03/27/17 20:00 83 03/27/17 18:00 88 03/27/17 17:00 92 03/27/17 16:29 97.6 83 16 129/74 (92) 03/27/17 16:00 90 03/27/17 15:00 106 03/27/17 14:22 94 3.00 03/27/17 14:00 98 03/27/17 13:00 92 03/27/17 12:24 97.8 92 16 142/73 (96) 94 -: 03/28/17 0619 03/28/17 06 Physical Exam General Appearance: No Acute Distress, Comfortable Eyes Eye Exam: Pupils Equal Throat Throat Exam: Oral Mucosa [place] & Moist Neck Neck Exam: Neck Supple, Trachea Midline Pulmonary Resp Exam: Rhonchi, Decreased Bases, Diminished Breath Sounds, Poor Inspiratory Effort Cardiology CV Exam: Regular, Tachycardia Gastrointestinal/Abdomen GI Exam: Soft, Non-Tender, Bowel Sounds Present, Non-Distended Integumentary Skin Exam: Intact Extremeties Extremities Exam: No Edema, Trace Edema Neurologic Neuro Exam: Alert, Awake Psychiatric Psych Exam: Appropriate Responses Assessment/Plan Assessment Summary: ASH/Acute Renal Failure, Hypotension Problem List: (1) Respiratory failure ICD Codes: J96.90 - Respiratory failure, unspecified, unspecified whether with hypoxia or hypercapnia (2) Acute kidney failure ICD Codes: N17.9 - Acute kidney failure, unspecified (3) Hypothyroidism ICD Codes: E03.9 - Hypothyroidism Status: Acute (4) Hypertension ICD Codes: I10 - Essential (primary) hypertension Status: Chronic (5) PNA (pneumonia) ICD Codes: J18.9 - Pneumonia, unspecified organism Status: Acute (6) Hyperlipidemia ICD Codes: E78.5 - Hyperlipidemia Status: Acute (7) Cancer, colon ICD Codes: C18.9 - Malignant neoplasm of colon, unspecified Status: Acute Plan Most likely has ASH due to ATN. Patient has been non oliguric. Continue Bumex, has been non oliguric. Good UOP Avoid Nephrotoxins. Creatinine continue to improve, now 1.0, K is also normal. Follow the urine out put and BMP. I will sign off and see PRN if needed. Problem Qualifiers (1) Hypothyroidism: Qualified Codes: E03.9 - Hypothyroidism, unspecified (2) Hypertension: Qualified Codes: I10 - Essential (primary) hypertension (3) PNA (pneumonia): Qualified Codes: J18.9 - Pneumonia, unspecified organism Aixa Figueroa MD Mar 28, 2017 12:16
[2017-03-28] MEDS: LABETALOL HCL 100 MG/20 ML VIAL IV PRN (14:06)
--- NOTE | 2017-03-28 15:01 | HHI.PR ---
Addendum to Inpatient Note Addendum Reason: Additional Documentation Additional Information Resident paged regarding change in patient mental status. Pts present at bedside reports that throughout the day she has been having a difficult time following commands and finding words. She has been sleeping much more than usual. Pt reports feeling unlike her usual self. Vitals: Oxygen saturation 89-90% on 4L, HR 80 GENERAL: Well-nourished, well-developed patient. SKIN: Warm and dry. HEAD: Normocephalic. EYES: No scleral icterus. No injection or drainage. NECK: Supple, trachea midline. No JVD or lymphadenopathy. CARDIOVASCULAR: Irregular rate regular rhythm.Systolic murmur RESPIRATORY: Breath sounds equal bilaterally. No accessory muscle use. Increased oxygen requirement of 4L. GASTROINTESTINAL: Abdomen soft, non-tender, nondistended. EXTREMITIES: No cyanosis, or edema. NEUROLOGICAL: Sleeping, easily arousable, waxing and waning consciousness. When asked where she was patient initially responded with a series of numbers which were in fact her date. When asked again she reported that she was at [employer], she is able to state her name and the year. She was unable to follow complex commands, unable to assess cranial nerves. 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 A/P: Altered mental status, increased oxygen requirement, difficulty finding words, following commands Differential includes acute intracerebral hemorrhage, sepsis, hyperammonemia, PE versus DVT, respiratory failure, versus others Patient was recently extubated, if patient develops respiratory distress, consider reconsulting critical care -Head CT -Lactic acid -Ammonia -ABG -D dimer -Neuro checks Q4hrs -Continue to monitor vitals Pt discussed with Vamsi Pizarro MD R3 Mar 28, 2017 15:01
--- NOTE | 2017-03-28 16:27 | RADRPT ---
EXAM DATE/TIME: 03/28/2017 15:57 [facility] COMPARISON: CT BRAIN W/O CONTRAST, March 15, 2017, 7:47. INDICATIONS : Altered mental status. RADIATION DOSE: 36.59 CTDIvol (mGy) ; Patient motion MEDICAL HISTORY : Cardiovascular disease. Hypertension. Diabetes SURGICAL HISTORY : None. ENCOUNTER: Initial ACUITY: 1 day PAIN SCALE: Non-responsive LOCATION: Bilateral cranial TECHNIQUE: Multiple contiguous axial images were obtained of the head. Using automated exposure control and adj ustment of the mA and/or kV according to patient size, radiation dose was kept as low as reasonably a chievable to obtain optimal diagnostic quality images. DICOM format image data is available electro nically for review and comparison. FINDINGS: The study is degraded by motion artifact. CEREBRUM: The ventricles are normal for age. No evidence of midline shift, mass lesion, hemorrhage or acute in farction. No extra-axial fluid collections are seen. POSTERIOR FOSSA: The cerebellum and brainstem are intact. The 4th ventricle is midline. The cerebellopontine angle i s unremarkable. EXTRACRANIAL: The visualized portion of the orbits is intact. SKULL: The calvaria is intact. No evidence of skull fracture. CONCLUSION: 1. The study is degraded by motion artifact. 2. No evidence of hemorrhage or mass effect. Robe Menchaca MD on March 28, 2017 at 16:22 Board Certified Radiologist. This report was verified electronically.
[2017-03-28 16:38] LABS: BLOOD GAS HCO3 29 mmol/L (22-26); BLOOD GAS METHEMOGLOBIN 1.1 % (0-2); BLOOD GAS O2 HGB SATURATION 88 % (90-100); BLOOD GAS OXYGEN CONTENT 18.8 Vol % (12.0-20.0); BLOOD GAS PCO2 38 mmHg (38-42); BLOOD GAS PO2 59 mmHg (61-120); BLOOD GAS TOTAL HGB 15.2 G/DL (12.0-16.0); TEMP CORR TO 98.6
[2017-03-28 16:41] LABS: CRITICAL VALUE YES; DRAW SITE RT RADIAL; LITER FLOW 2.5 L/M; NUMBER OF ARTERIAL PUNCTURES 1; OXYGEN DEVICE NASAL CANNULA; STAT YES; ULNAR PULSE PRESENT
--- NOTE | 2017-03-28 19:23 | PD.CONS ---
[facility] Service Rehabilitation Medicine Consult Requested By Lydia Sexton MD Reason for Consult Comprehensive rehabilitation evaluation. Primary Care Physician Chelo Santiago MD History of Present Illness Shauna Marroquin is a 71 year old right hand dominant female admitted to [facility] 03/15/17 with abdominal pain and shortness of breath. She was found to have pyelonephritis/hydronephrosis, afib with RVR and septic shock. She was intubated. Head CT was negative. She was subsequently extubated 03/25/17. Followup head CT 03/28/17 was negative, Review of Systems Constitutional: COMPLAINS OF: Fatigue Eyes: COMPLAINS OF: Blurred vision, DENIES: Diplopia Ears, nose, mouth, throat: COMPLAINS OF: Throat pain Respiratory: COMPLAINS OF: Shortness of breath Cardiovascular: DENIES: Chest pain Gastrointestinal: DENIES: Abdominal pain, Constipation Genitourinary: COMPLAINS OF: Urinary incontinence (Gallo) Musculoskeletal: COMPLAINS OF: Joint pain, Back pain Integumentary: DENIES: Pruritus Hematologic/lymphatic: COMPLAINS OF: Bruising Immunologic/allergic: DENIES: Urticaria Neurologic: COMPLAINS OF: Headache, DENIES: Localized weakness, Paresthesias, Speech Problems Psychiatric: DENIES: Confusion Past Family Social History Allergies: Coded Allergies: codeine (Unverified Allergy, Severe, Nausea/Vomiting, 03/15/17) Uncoded Allergies: METAL (Allergy, Intermediate, hives, 03/08/16) SURGICAL STEEL (Allergy, Intermediate, hives, 03/08/16) Past Medical History Colon CA S/P chemotherapy Atrial fibrillation HTN DM type 2 L3 compression fracture Hypothyroidism Past Surgical History Appendectomy Exploratory Lap Hernia repair Current Medications Current Medications Medications (Trade) Dose Ordered Sig/Chiqui Route Start Time Stop Time Status Last Admin (Synthroid) 50 mcg DAILY@0600 PO 03/16/17 06:00 03/28/17 06:10 (Pravachol) 40 mg DAILY PO 03/16/17 09:00 03/28/17 09:34 (Ativan Inj) 1 mg Q4H PRN IV PUSH 03/15/17 14:00 (NS Flush) 2 ml UNSCH PRN IV FLUSH 03/15/17 14:30 (NS Flush) 2 ml BID IV FLUSH 03/15/17 21:00 03/28/17 09:35 (Zofran Inj) 4 mg Q6H PRN IV PUSH 03/15/17 14:30 (Duoneb Neb) 1 ampule Q2HR NEB PRN INH 03/15/17 14:30 03/19/17 22:26 (Chlorhexidine 2% Cloth) Taper DAILY@04 TOP 03/16/17 04:00 03/12/18 03:59 03/25/17 04:00 (Elsa-Colace) 1 tab BID PO 03/15/17 21:00 03/28/17 09:34 (Milk Of Magnesia Liq) 30 ml Q12H PRN PO 03/15/17 14:30 03/25/17 17:16 (Senokot) 17.2 mg Q12H PRN PO 03/15/17 14:30 (Dulcolax Supp) 10 mg DAILY PRN RECTAL 03/15/17 14:30 (D50w (Vial) Inj) 50 ml UNSCH PRN IV PUSH 03/15/17 15:15 (Glucagon Inj) 1 mg UNSCH PRN OTHER 03/15/17 15:15 (Heparin Inj) 5,000 units Q8HR SQ 03/15/17 22:00 03/28/17 06:10 (Cordarone) 400 mg BID PO 03/16/17 21:00 03/28/17 09:34 (Trandate Inj) 20 mg Q2H PRN IV 03/19/17 12:00 03/28/17 14:06 (PROzac LIQ) 20 mg DAILY PO 03/20/17 11:00 03/28/17 09:33 Diltiazem HCl 125 mg/Sodium Chloride 125 ml @ 5 mls/hr TITRATE PRN IV 03/21/17 07:45 03/23/17 20:51 (Bumex Inj) 1 mg DAILY IV PUSH 03/21/17 09:00 03/28/17 09:34 (Cardizem) 60 mg Q6HR PO 03/22/17 18:00 03/28/17 18:48 (Levaquin) 750 mg Q48H PO 03/25/17 10:00 04/04/17 23:00 03/27/17 10:14 (Mag-Al Plus Susp Liq) 20 ml Q6H PRN PO 03/25/17 19:30 10/3/17 09:48 (Pepcid) 10 mg BID PO 03/26/17 21:00 03/28/17 09:34 (Tears Naturale Opth Soln) 1 drop TID PRN EACH EYE 03/26/17 09:45 (Lactulose Liq) 30 ml DAILY PRN NG 03/26/17 10:15 (Tylenol) 650 mg Q6H PRN PO 03/26/17 12:45 (Ashton 5-325 Mg) 1 tab Q4H PRN PO 03/26/17 16:45 03/26/17 20:51 (Ecotrin Ec) 162 mg DAILY PO 03/27/17 09:00 03/28/17 09:34 Miscellaneous Information 1 Q361D XX 03/26/17 21:30 (Levemir Inj) 5 units Q12HR SQ 03/27/17 21:00 03/28/17 09:00 (NovoLOG SUPPLEMENTAL SCALE) 1 ACHS SLIDING SCALE SQ 03/27/17 12:00 03/28/17 17:00 Family History CAD Social History Prior to admission patient lived with in [place], [place]. Exam I&O / VS Vital Signs Date Time Temp Pulse Resp B/P (MAP) Pulse Ox O2 Delivery O2 Flow Rate FiO2 03/28/17 14:10 125/67 (86) 03/28/17 14:04 98.7 94 17 173/89 (117) 90 03/28/17 12:15 97 17 147/76 (99) 91 03/28/17 08:42 98.9 90 17 140/72 (94) 90 03/28/17 04:00 97.5 83 18 153/88 (109) 96 03/28/17 00:00 97.8 81 18 140/69 (92) 97 03/27/17 20:00 97.6 84 18 131/74 (93) 96 03/27/17 20:00 Nasal Cannula 2.00 03/27/17 20:00 83 General: No acute distress, Other (NC O2 in place) Respiratory: Lungs CTA, Non-labored respirations, BS equal (Decreased breath sounds in bases bilaterally), Coarse breath sounds Cardiovascular: Normal rate Musculoskeletal: ROM Psychiatric: Cooperative, Appropriate mood & affect (Affect flat) Orientation: oriented to Self, oriented to Place (With cues), oriented to Situation, disoriented to Time Neurologic: Pupils (PERRLA), EOM (Intact), Facial Symmetry (Symmetric), Speech (Clear but confused) Motor: Right Upper Extremity (4/5), Left Upper Extremity (4/5), Right Lower Extremity (3/5), Left Lower Extremity (3/5) Sensory Decreased distal to ankles bilaterally DTRs: Abnormal (1+ throughout) Clonus: Negative Assessment and Plan Diagnosis: (1) Physical deconditioning ICD Codes: R53.81 - Other malaise (2) Severe sepsis ICD Codes: A41.9 - Sepsis, unspecified organism; R65.20 - Severe sepsis without septic shock Status: Acute Assessment 1. Deconditioning due to medical illness including sepsis with shock, atrial fibrillation with RVR, and respiratory failure requiring intubation 2. Colon CA S/P chemotherapy 3. HTN 4. DM type 2 5.Hypothyroidism Plan 1. PT mobilizing and max assist of 2 for bed mobility. Mobilize to stretcher chair to increase activity tolerance 2. Roho cushion when up to chair. Wound care following for saral and upper buttock wounds 3. OT for ADl's and patient dependent 4. Will follow regarding additional rehab needs. Anticipate that patient will need ongoing inpatient rehabilitation at discharge and for IRF level will need to be able to tolerate 2 hours of OOB to chair 5. Will follow while hospitalized and at discharge Thank you for this consult. Nay Smith MD Mar 28, 2017 19:23
[2017-03-28] MEDS ORDERED: IOHEXOL 350 MG/ML 10 ML VIAL (for RAD DIAG) IVCONTRAST ONE (21:50)
--- NOTE | 2017-03-28 23:21 | RADRPT ---
EXAM DATE/TIME: 03/28/2017 21:35 [facility] COMPARISON: CT PULMONARY ANGIOGRAM, March 15, 2017, 7:46. INDICATIONS : Short of breath. IV CONTRAST: 75 cc Omnipaque 350 (iohexol) IV RADIATION DOSE: 18.00 CTDIvol (mGy) MEDICAL HISTORY : Hypertension. SURGICAL HISTORY : None. ENCOUNTER: Initial ACUITY: 1 day PAIN SCALE: 0/10 LOCATION: chest TECHNIQUE: Volumetric scanning of the chest was performed using a pulmonary embolism protocol MIP images were re constructed. Using automated exposure control and adjustment of the mA and/or kV according to patien t size, radiation dose was kept as low as reasonably achievable to obtain optimal diagnostic quality images. DICOM format image data is available electronically for review and comparison. Follow-up recommendations for detected pulmonary nodules are based at a minimum on nodule size and pa tient risk factors according to Fleischner Society Guidelines. FINDINGS: PULMONARY ARTERIES: Filling defects are seen involving the right lung consistent with acute pulmonary emboli. These are l ocated within the right upper lobe and right lower lobe. Overall the thrombus load is small. No dilat ation of the pulmonary arteries. LUNGS: Patchy scattered areas of parenchymal consolidation observed throughout both lungs most pronounced wi thin the right upper lobe. Passive atelectasis seen adjacent to the effusions. PLEURAE: Small bilateral pleural effusions. MEDIASTINUM: The heart is at the upper limits of normal in terms of size. No pericardial effusion. Small anterior mediastinal lymph nodes which are stable from the prior study. The largest is precarinal and measures 1.9 x 1.2 cm. MUSCULOSKELETAL: Within normal limits for patient age. MISCELLANEOUS: The visualized upper abdominal organs demonstrate no acute abnormality. CONCLUSION: 1. Acute small volume pulmonary emboli on the right. 2. Bilateral pulmonary infiltrates, bibasilar atelectasis, and small bilateral pleural effusions. Antonio High Jr., MD on March 28, 2017 at 23:11 Board Certified Radiologist. This report was verified electronically.
[2017-03-29] VITALS (12 sets, daily range): BP systolic 145–177; BP diastolic 63–88; PULSE 84–112; RESP 17–55; TEMP 97.8–99.8; O2SAT 92–97
[2017-03-29] MEDS: ENOXAPARIN SODIUM 100 MG/ML SYRINGE SQ SCH ×2 (00:40→12:42)
[2017-03-29] MEDS: LORazepam 2 MG/ML VIAL IV PUSH PRN (02:14)
[2017-03-29] MEDS: DILTIAZEM HCL 60 MG TAB PO SCH ×2 (05:06→12:44)
[2017-03-29] MEDS: LEVOTHYROXINE SODIUM 50 MCG TAB PO SCH (05:07)
[2017-03-29 07:59] LABS: BICARBONATE 29.7 MEQ/L (21.0-32.0); HEMATOCRIT 29.8 % (35.0-46.0); MEAN CELL VOLUME 89.4 FL (80.0-100.0); MEAN CORPUSCULAR HEMOGLOBIN 29.5 PG (27.0-34.0); PLATELET COUNT 192 TH/MM3 (150-450); POTASSIUM 3.3 MEQ/L (3.5-5.1); RED BLOOD COUNT 3.34 MIL/MM3 (4.00-5.30); RED CELL DISTRIBUTION WIDTH 14.9 % (11.6-17.2); REVIEW FLAG FINAL; WHITE BLOOD COUNT 16.3 TH/MM3 (4.0-11.0)
[2017-03-29] MEDS: SODIUM CHLORIDE 0.9% FLUSH 10 ML FLUSH IV FLUSH SCH ×2 (09:00→22:17)
[2017-03-29] MEDS: INSULIN DETEMIR 100 UNITS/ML VIAL SQ SCH ×2 (09:00→20:43)
--- NOTE | 2017-03-29 09:32 | HHI.FPPN ---
Subjective Remarks Patient more confused this morning and short of breath. She answers simple yes or no questions. Per her , the changes started yesterday afternoon, with worsening at 4 AM today. She is using accessory muscles and writhing around as if in pain. However, when asked specifically about pain, she reports no pain, including no chest pain or abdominal pain. She also denies being short of breath. Patient transferred to the ICU due to changing status and worsening shortness of breath. Head CT yesterday with no acute process. Re-visited the patient this afternoon, she is now on simple mask with 9L O2. Her status has improved per her at bedside. She still remains somewhat confused and short of breath but appears much better than this morning. (Robe Ware MD R3) Objective Vitals Vital Signs Date Time Temp Pulse Resp B/P (MAP) Pulse Ox O2 Delivery O2 Flow Rate FiO2 03/29/17 08:17 98.9 112 17 177/88 (117) 96 03/29/17 04:00 102 03/29/17 04:00 98.2 102 21 163/79 (107) 96 03/29/17 02:00 102 03/29/17 01:13 95 Simple Mask 9.00 03/29/17 01:00 95 Simple Mask 03/29/17 00:00 84 03/29/17 00:00 97.8 106 21 173/87 (115) 97 03/28/17 22:00 86 03/28/17 20:00 Nasal Cannula 3.00 03/28/17 20:00 76 03/28/17 20:00 89 Nasal Cannula 3.00 03/28/17 20:00 97.4 86 22 151/82 (105) 91 03/28/17 14:10 125/67 (86) 03/28/17 14:04 98.7 94 17 173/89 (117) 90 03/28/17 12:15 97 17 147/76 (99) 91 I/O 03/28/17 03/28/17 03/28/17 03/29/17 03/29/17 03/29/17 07:00 15:00 23:00 07:00 15:00 23:00 Intake Total 720 ml 480 ml Balance 720 ml 480 ml Intake Oral 720 ml 480 ml # Voids 3 4 # Bowel Movements 1 (Robe Ware MD R3) Result Diagram: 03/29/17 0615 03/29/17 0615 Imaging Last 72 hours Impressions Chest X-Ray 03/29/17 Signed Impressions: Service Date/Time: Wednesday, March 29, 2017 09:22 - CONCLUSION: Some interval worsening in aeration Jose Wright MD Head CT 03/28/17 Signed Impressions: Service Date/Time: March 15:57 - CONCLUSION: 1. The study is degraded by motion artifact. 2. No evidence of hemorrhage or mass effect. Robe Menchaca MD CT Angiography 03/28/17 Signed Impressions: Service Date/Time: March 21:35 - CONCLUSION: 1. Acute small volume pulmonary emboli on the right. 2. Bilateral pulmonary infiltrates , bibasilar atelectasis, and small bilateral pleural effusions. Antonio High Jr., MD Objective Remarks GENERAL: Lying in bed, on 4L via simple mask, using accessory muscles, writhing around as if in pain. Revisited this afternoon, now on 9L via simple mask, status improved. ABG reviewed showing borderline low pO2, respiratory and metabolic alkalosis. SKIN: No rashes or lesions HEENT; Normocephalic, no conjunctivitis NECK: Supple, trachea midline. No JVD or lymphadenopathy. CARDIOVASCULAR: Irregularly irregular rate and rhythm with systolic murmur, rate 130's this morning now 100-110. RESPIRATORY: Accessory muscle use, crackles in lung bases, breathing fast, on simple mask, 91% O2 saturation on 4L GASTROINTESTINAL: Abdomen soft, non-tender, distended. Bowel sounds present. MUSCULOSKELETAL: No edema NEURO: Answering simple questions, not following commands very well, awake and alert but confused, mildly agitated (Robe Ware MD R3) Date of Insertion: Mar 15, 2017 (Robe Ware MD R3) A/P Assessment and Plan 71 year old female with a PMH significant for colon cancer s/p chemotherapy, atrial fibrillation on Eliquis, HTN, DM type 2, and MDD who presented to the ED with abdominal pain, nausea and vomiting and was found to have severe sepsis secondary to PNA and pyelonephritis in addition to atrial fibrillation with RVR. She rapidly decompensated into respiratory failure and was intubated on . Patient then improved and was extubated and moved to the [facility]. This morning there was acutely worsened respiratory status, found to have PE on right. Transferred back to [facility], currently on simple mask at 9L O2, maintaining oxygen saturation, on therapeutic Lovenox. Discharge Planning Will likely need a SNF once improved as she will be very weak and debilitated. dw: Dr. Greenberg (Robe Ware MD R3) Attending Attestation Patient seen and examined. Case reviewed and discussed with the resident team. Agree with plan of care as discussed with me and documented in the resident note. agree with transfer to [facility] as she is worse and somewhat hypoxic with her new PEs (Lydia Greenberg MD) Problem List: (1) Sepsis due to Gram-negative organism with septic shock ICD Codes: A41.50 - Gram-negative sepsis, unspecified; R65.21 - Severe sepsis with septic shock Status: Resolved Plan: Neurologic: AMS-toxic encephalopathy secondary to sepsis History of TIA x 2 Major Depressive Disorder Currently on 9L via simple mask 03/15 CT brain-no intracranial abnormality Neurology consulted- Dr. Huff Fluoxetine 20 mg daily Respiratory: Acute Hypoxemic respiratory failure Pulmonary hypertension Carinal adenopathy Pulmonary embolism on right, small volume 03/15 Patient intubated emergently Duonebs Q6H scheduled and Q2H when necessary Chest x-ray 03/29 - worsening aeration CTA on 03/28 - small volume PE on right, on therapeutic Lovenox History of pneumonia, possibly redeveloping pneumonia, currently not on antibiotics Currently diuresed with Bumex 1mg IV daily, monitor I's and O's Pulmonary HTN not present on last echo in 03/16 Echo shows EF 55-60%, severe mitral annular calcification with moderate mitral valve stenosis, mildly dilated right atrium, mild to mod aortic valve stenosis, pulmonary arterial pressure 55.2 Breathing on 9 L simple mask with normal O2 saturation ABG with respiratory/metabolic alkalosis Cardiovascular: A. fib RVR Hypertension Amiodarone 400mg PO BID. labetalol when necessary for hypertension. Cardizem drip restarted for afib with RVR, rate was in 130-140's. Now down to 100-110's. Last echo 02/05- ejection fraction 55-60%. No RWMA. APA 35 mmHg, TV mild regurg, MV mild regurg 03/16 Echo results as above EPS- Dr. Lubin consulted, has signed off Renal: Bilateral hydronephrosis Pyelonephrosis Gallo catheter re-inserted on 03/29 for critical state, diuresis, accurate I's and O's, poor mobility 03/14-CT of the abdomen and pelvis-bilateral hydronephrosis, pyelonephrosis, perinephric stranding -- Strict I/Os Urology consulted, has signed off- 03/16 renal US shows resolution of hydronephrosis, urinary bladder decompressed Nephrology consulted, recommendations appreciated Creatinine stable FEN/GI: History of colon cancer status post chemotherapy and colectomy Abdominal hernia Diabetic Diet Heme/ID: Septic Shock due to gram negative carmela Community-acquired multilobar pneumonia Pyelonephritis Lactic acidemia Bandemia 03/15 Blood cultures growing Klebsiella pneumoniae 03/15 urine culture growing Klebsiella pneumonia 03/16 sputum culture: No growth to date 2 days legionella and streptococcus antigens negative ID consulted - Dr. Hansen, treat with Levaquin, started 03/25 (dosed every other day). (vanc and cefepime have been discontinued) 03/19: Urine culture: No growth to date 2 Heme- Onc consulted regarding carinal adenopathy lymphadenopathy, patient is S/ P completion of chemotherapy 09/2016. Repeat CT chest in 1-2 months to evaluate mediastinal lymph nodes as outpatient Trend lactate level 6.4->4.2->4.9->3.0->1.5->2.2->2.3 Endocrine: Diabetes mellitus Hypothyroidism High-dose SSI every 6 hours Long-acting Levemir at 5 units twice a day, will monitor for hypoglycemia Continue Levothyroxine 50 mcgs/day Prophylaxis: GI Prophylaxis with famotidine 10 mg BID DVT Prophylaxis: currently therapeutic Lovenox (2) Pyelonephritis ICD Codes: N12 - Tubulo-interstitial nephritis, not specified as acute or chronic Status: Resolved (3) PNA (pneumonia) ICD Codes: J18.9 - Pneumonia, unspecified organism Status: Acute (4) Atrial fibrillation with rapid ventricular response ICD Codes: I48.91 - Atrial fibrillation with rapid ventricular response Status: Resolved (5) Diabetes mellitus, type II ICD Codes: E11.9 - Type 2 diabetes mellitus Status: Chronic (6) Hypertension ICD Codes: I10 - Essential (primary) hypertension Status: Chronic (7) Hypothyroidism ICD Codes: E03.9 - Hypothyroidism Status: Acute (8) Nutrition, metabolism, and development symptoms ICD Codes: R63.8 - Symptoms concerning nutrition, metabolism, and development Status: Acute (Robe Ware MD R3) Problem Qualifiers (1) PNA (pneumonia): Qualified Codes: J18.9 - Pneumonia, unspecified organism (2) Diabetes mellitus, type II: Qualified Codes: E11.9 - Type 2 diabetes mellitus without complications; 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
--- NOTE | 2017-03-29 09:40 | RADRPT ---
EXAM DATE/TIME: 03/29/2017 09:22 [facility] COMPARISON: CT PULMONARY ANGIOGRAM, March 28, 2017, 21:35. CHEST SINGLE AP, March 26, 2017, 5:09. INDICATIONS : Shortness of breath. MEDICAL HISTORY : Cardiovascular disease. Hypertension Diabetes. SURGICAL HISTORY : None. ENCOUNTER: Subsequent ACUITY: 3 days PAIN SCORE: 0/10 LOCATION: Bilateral chest FINDINGS: Right chest port is stable in good position. Central vascular congestion and central and has lower pa renchymal infiltrates or edema are slightly worse than on previous exam. Consolidation at the left ba se again obscures left diaphragm. Heart encounter is grossly stable. CONCLUSION: Some interval worsening in aeration Jose Wright MD on March 29, 2017 at 9:35 Board Certified Radiologist. This report was verified electronically.
[2017-03-29 11:02] LABS: BLOOD GAS BASE EXCESS 5.9 mmol/L (-2-2); BLOOD GAS CARBOXYHEMOGLOBIN 1.8 % (0-4); BLOOD GAS HCO3 29 mmol/L (22-26); BLOOD GAS O2 HGB SATURATION 91 % (90-100); BLOOD GAS OXYGEN CONTENT 13.9 Vol % (12.0-20.0); BLOOD GAS PCO2 37 mmHg (38-42); BLOOD GAS PO2 65 mmHg (61-120); BLOOD GAS TOTAL HGB 10.9 G/DL (12.0-16.0); CRITICAL VALUE NO; LITER FLOW 10 L/M; OXYGEN DEVICE SIMPLE MASK; TEMP CORR TO 98.6
[2017-03-29 11:03] LABS: DRAW SITE RT RADIAL; FIO2 50 %; NUMBER OF ARTERIAL PUNCTURES 1; STAT YES; ULNAR PULSE PRESENT
[2017-03-29] MEDS: INSULIN ASPART SUPPLEMENTAL SCALE SQ SCH ×3 (12:00→20:43)
--- NOTE | 2017-03-29 12:01 | HHI.CCPN ---
Subjective Remarks/Hospital Course This is a 71 year old female with a PMH significant for colon cancer s/p chemotherapy, atrial fibrillation previously on Eliquis discontinued for GI bleeding, HTN, DM type 2, and MDD who presented to the ED with abdominal pain, nausea and vomiting.The patient stated that she had pain in her left side this morning that radiated to her lower abdomen and caused her to have nausea and vomiting. She states that she has been short of breath for the past 3 weeks and progressively more fatigued. Her states that she has been becoming progressively weaker and sleeping excessively at times. At 3AM this morning, he noticed that she was trying to talk but "wasn't making any sense." He states that she has been so short of breath that she has been having difficulty finishing sentences without becoming short of breath. She notes dysuria, urinary urgency and frequency for the past 3-4 days. Imaging studies and laboratory studies were performed. Notably CTA of the chest reveal pulmonary hypertension and carinal lymphadenopathy. CT abdomen and pelvis revealed bilateral hydronephrosis and pyelonephrosis with perinephric stranding. Cultures were sent, the patient was noted to have bacteremia notably gram- negative rods. The patient was in A. fib RVR in the ED the patient received Cardizem bolus and was placed on a Cardizem infusion and transferred to ICU. Upon admission to ICU the patient became progressively short of breath with escalating alternation in mental status critical care medicine was consulted. The patient's heart rate at that time was in the 130s systolic pressure 140s and O2 sat high 80s. Brief discussion with purpose of emergent intubation. Subjective: 03/16: Overnight the patient continued to have hemodynamic instability, now septic shock. Patient continues in A. fib with HR low 100's. Patient on maximum doses currently of norepinephrine and vasopressin infusions. [place]- cortisone added to medication regimen, Sodium bicarbonate infusion initiated. Imaging revealed hydronephrosis and pyelonephrosis patient seen by Dr. Larose, urine output now decreased to 150cc total over the last 12hrs, with continued elevation in creatinine. Planned renogram this a.m., to rule out obstruction with possible placement of nephrostomy tubes, and nephrology also consulted. Patient was seen by Dr. Candelario, carinal /hilar lymphadenopathy most likely not associated with carcinoma, plan for outpatient scan in 2-3 months. FiO2 was decreased to 60% overnight, ECHO pending her evaluation of cardiac status and pulmonary hypertension. 03/17: Overnight vasopressors weaned significantly, currently on lower doses. The patient continues on sodium bicarbonate infusion. Renogram canceled secondary to hemodynamic instability yesterday renal ultrasound performed revealed no hydronephrosis, creatinine continues to be elevated most likely secondary to acute kidney injury secondary to hypotension and septic shock. Nephrology consult pending. Echo revealed severe mitral valve stenosis and calcification with pulmonary hypertension and PASP 55.2 03/18: Remains sedated, orally intubated on mech vent. Off levophed. 03/19: Remains sedated, orally intubated on mechanical ventilation. Off Levophed. Blood pressure actually running high. Failed C Pap trials 03/20: Remains sedated, orally intubated on mechanical ventilation. Currently in A. fib. Off pressors. 03/21: Remains sedated, orally intubated on mechanical ventilation. In A. fib with RVR. Seen by Dr. Lubin on 03/21. Failed C Pap trials yesterday. 03/22: Remains sedated, orally intubated on mechanical ventilation. Remains in atrial fibrillation. Currently rate controlled with Cardizem drip. 03/23: Remains sedated, orally intubated on mechanical ventilation. On Cardizem drip for rate control for A. fib. 03/24: Remains drowsy off sedation, orally intubated on mechanical ventilation. Cardizem drip Her out for A. fib rate control. 03/25: Drowsy, easily arousable, squeezes my hand with her hands as well as wiggles her toes on command. Off Cardizem drip currently. Remains in A. fib rate controlled with by mouth Cardizem and amiodarone. 03/26: Seen earlier this morning. Patient extubated yesterday following C Pap trial. Currently on nasal cannula. 03/29: Worsening SOB and labored. Increased FiO2 requirements. Confused. Conversational dyspnea. New right lung PE; RV dimensions not enlarged. Objective Vital Signs Date Time Temp Pulse Resp B/P (MAP) Pulse Ox O2 Delivery O2 Flow Rate FiO2 03/29/17 08:17 98.9 112 17 177/88 (117) 96 03/29/17 01:13 Simple Mask 9.00 03/25/17 08:37 40 Intake and Output 03/29/17 03/29/17 03/30/17 08:00 16:00 00:00 Intake Total 480 ml Balance 480 ml Result Diagram: 03/29/1715 03/29/1715 Other Results Laboratory Tests Test 03/28/17 16:30 03/29/17 10:43 Blood Gas Puncture Site RT RADIAL RT RADIAL Blood Gas Patient Temperature 98.6 98.6 Blood Gas HCO3 29 mmol/L (22-26) 29 mmol/L (22-26) Blood Gas Base Excess 6.0 mmol/L (-2-2) 5.9 mmol/L (-2-2) Blood Gas Oxygen Saturation 88 % (90-100) 91 % (90-100) Arterial Blood pH 7.50 (7.380-7.420) 7.50 (7.380-7.420) Arterial Blood Partial Pressure CO2 38 mmHg (38-42) 37 mmHg (38-42) Arterial Blood Partial Pressure O2 59 mmHg (61-120) 65 mmHg (61-120) Arterial Blood Oxygen Content 18.8 Vol % (12.0-20.0) 13.9 Vol % (12.0-20.0) Arterial Blood Carboxyhemoglobin 2.0 % (0-4) 1.8 % (0-4) Arterial Blood Methemoglobin 1.1 % (0-2) 1.0 % (0-2) Blood Gas Hemoglobin 15.2 G/DL (12.0-16.0) 10.9 G/DL (12.0-16.0) Oxygen Delivery Device NASAL CANNULA SIMPLE MASK Blood Gas Liter Flow 2.5 L/M 10 L/M Blood Gas Inspired Oxygen 50 % Imaging Last 48 hours Impressions Chest X-Ray 03/20/17 0600 Signed Impressions: Service Date/Time: Monday, March 20, 2017 04:57 - CONCLUSION: 1. Endotracheal tube and nasogastric tube in good position. Basilar airspace disease increased from March 18. Samuel Lin MD Last Impressions Chest X-Ray 03/17/17 0000 Signed Impressions: Service Date/Time: Friday, March 17, 2017 06:22 - CONCLUSION: Persistent infiltrates consolidation left lower lung and patchy infiltrates in the central right lung. Antonio Voss MD Renal Ultrasound 03/16/17 0000 Signed Impressions: Service Date/Time: Thursday, March 16, 2017 11:27 - CONCLUSION: The hydronephrosis has resolved. Urinary bladder is decompressed.. Jose Flores MD CT Angiography 03/15/17 0520 Signed Impressions: Service Date/Time: Wednesday, March 15, 2017 07:46 - CONCLUSION: 1. No evidence for pulmonary embolism. 2. Cardiomegaly with enlargement of pulmonary arteries likely from pulmonary arterial hypertension. 3. Bibasilar patchy densities could be atelectasis or infiltrate. 4. Mosaic attenuation which can be seen with small airway disease. 5. Enlarged precarinal and subcarinal adenopathy. Jai Queen MD Head CT 03/15/17 0000 Signed Impressions: Service Date/Time: Wednesday, March 15, 2017 07:47 - CONCLUSION: No acute intracranial disease. Jai Queen MD Abdomen/Pelvis CT 03/15/17 0000 Signed Impressions: Service Date/Time: Wednesday, March 15, 2017 07:51 - CONCLUSION: 1. Bilateral hydronephrosis with extensive stranding in the perinephric regions greater on the left. 2. Mild circumferential wall thickening within the bladder with mild distention. 3. Postsurgical changes rectosigmoid junction. 4. Small fat containing abdominal wall hernias. Jai Queen MD Last Impressions Chest X-Ray 03/16/17 0600 Signed Impressions: Service Date/Time: Thursday, March 16, 2017 04:58 - CONCLUSION: Persisting consolidation left mid and lower lung and improving infiltrates in the lower right lung. Antonio Voss MD CT Angiography 03/15/17 0520 Signed Impressions: Service Date/Time: Wednesday, March 15, 2017 07:46 - CONCLUSION: 1. No evidence for pulmonary embolism. 2. Cardiomegaly with enlargement of pulmonary arteries likely from pulmonary arterial hypertension. 3. Bibasilar patchy densities could be atelectasis or infiltrate. 4. Mosaic attenuation which can be seen with small airway disease. 5. Enlarged precarinal and subcarinal adenopathy. Jai Queen MD Head CT 03/15/17 0000 Signed Impressions: Service Date/Time: Wednesday, March 15, 2017 07:47 - CONCLUSION: No acute intracranial disease. Jai Queen MD Abdomen/Pelvis CT 03/15/17 0000 Signed Impressions: Service Date/Time: Wednesday, March 15, 2017 07:51 - CONCLUSION: 1. Bilateral hydronephrosis with extensive stranding in the perinephric regions greater on the left. 2. Mild circumferential wall thickening within the bladder with mild distention. 3. Postsurgical changes rectosigmoid junction. 4. Small fat containing abdominal wall hernias. Jai Queen MD Last Impressions Chest X-Ray 03/15/17519 Signed Impressions: Service Date/Time: Wednesday, March 15, 2017 05:41 - CONCLUSION: Opacity in the perihilar region bilaterally suggesting either central infiltrates or adenopathy. Antonio Voss MD CT Angiography 03/15/17519 Signed Impressions: Service Date/Time: Wednesday, March 15, 2017 07:46 - CONCLUSION: 1. No evidence for pulmonary embolism. 2. Cardiomegaly with enlargement of pulmonary arteries likely from pulmonary arterial hypertension. 3. Bibasilar patchy densities could be atelectasis or infiltrate. 4. Mosaic attenuation which can be seen with small airway disease. 5. Enlarged precarinal and subcarinal adenopathy. Jai Queen MD Head CT 03/15/17 0000 Signed Impressions: Service Date/Time: Wednesday, March 15, 2017 07:47 - CONCLUSION: No acute intracranial disease. Jai Queen MD Abdomen/Pelvis CT 03/15/17 0000 Signed Impressions: Service Date/Time: Wednesday, March 15, 2017 07:51 - CONCLUSION: 1. Bilateral hydronephrosis with extensive stranding in the perinephric regions greater on the left. 2. Mild circumferential wall thickening within the bladder with mild distention. 3. Postsurgical changes rectosigmoid junction. 4. Small fat containing abdominal wall hernias. Jai Queen MD Objective Remarks GENERAL: Elderly female, laying in bed in no acute distress SKIN: Warm and dry. HEAD: Atraumatic. Normocephalic. EYES: Pupils equal and round. No scleral icterus. No injection or drainage. ENT: No nasal bleeding or discharge. Mucous membranes pink and moist. NECK: Trachea midline. Airway widely patent. CARDIOVASCULAR: Irregularly irregular rhythm. No JVD. Rate 100. RESPIRATORY: Breath sounds equal bilaterally. Few scattered rhonchi bilaterally, no wheezing. Tachypnea 30s. GASTROINTESTINAL: Abdomen soft, protuberant non-tender, nondistended. No guarding. MUSCULOSKELETAL: Extremities without clubbing, cyanosis. Bilateral trace edema NEUROLOGICAL: Awake and alert. Following commands. Confused though recognizes friend and can name her . Moving all 4 extremities. Procedures 03/16- Renogram cancelled . Renal US performed. 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 Follow neuro status. Start aspirin 162 mg daily 03/15 CT brain-no intracranial abnormality Effexor placed on hold Respiratory: Acute Hypoxemic respiratory failure Pulmonary hypertension Carinal adenopathy Extubated on 03/25 following C Pap trial. Tolerating nasal cannula Bronchodilators every 6 hours scheduled and every [address] angiogram -pulmonary hypertension, no PE, enlarged precarinal and subcarinal lymphadenopathy 03/17- CXR -consolidations B/L lobes worsened - 03/29. New right lung PE. Increased O2 requirements. Cardiovascular: A. fib RVR Hypertension Patient arrived on Cardizem infusion-heart rate 130's, discontinue for MAP less than 60. Patient's home med amiodarone 200 mg daily increased to 400 mg twice a day. Labetalol when necessary for hypertension. Off pressors currently. Last echo 01/2015- ejection fraction 55-60%. No RWMA. PAP 35 mmHg, TV mild regurg ,MV mild regurg ECHO 03/16-EF 55- 60%. No RWMA, severe mitral valve annular calcification. Moderate mitral stenosis. Trace to mild MR, moderate TR, PAS P 55.2, trivial pulmonary valve regurgitation EPS- Dr. Lubin consulted. Discussed with Dr. Lubin on 03/21, plan to transition to by mouth Cardizem. Patient previously has had GI bleed on anticoagulation hence we'll hold off on any anticoagulation currently. Currently off Cardizem drip for rate control, remains on by mouth Cardizem. Dr. Lubin agreeable with starting aspirin 162 mg by mouth daily. Being diuresed. Renal: Bilateral hydronephrosis-resolved Pyelonephrosis Acute kidney injury most likely secondary to septic shock Elevated creatinine Hypernatremia Insert and maintain Gallo catheter 03/14-CT of the abdomen and pelvis-bilateral hydronephrosis, pyelonephrosis, perinephric stranding 03/16 renal ultrasound-no hydronephrosis KVO IV fluids. On Bumex 1 mg IV daily to mobilize fluid -- Strict I/Os, monitor and replete electrolytes, follow BUN/creatinine. Hypernatremia improved with free water which is stopped. FEN/GI: History of colon cancer status post chemotherapy Abdominal hernia Advance by mouth diet as tolerated Bowel regimen Heme/ID: Septic shock Community-acquired multilobar pneumonia Lactic acidemia Bandemia-resolved Blood cultures Klebsiella Urine culture Klebsiella Follow-up sputum culture Streptococcal and legionella antigens negative ID consulted - Dr. Hansen On antibiotics per ID Heme- Onc consulted regarding carinal adenopathy lymphadenopathy, patient is S/ P completion of chemotherapy 06/2016 Endocrine: Diabetes mellitus Hypothyroidism High-dose insulin medication regimen, Levemir 15 units subcutaneously twice a day -hold for anticipated extubation as tube feeds will be held until tolerating by mouth. Continue Levothyroxine 50 mcgs/day Obtain thyroid panel Glucose monitoring per ICU protocol -- SSI Prophylaxis: GI Prophylaxis famotidine BID DVT Prophylaxis -- SCDs Heparin 5000u Q8H Lines: Port right chest, peripheral IVs 2, left radial A-line Dispo: Overall impression: Critically ill with hypoxemic respiratory failure and new pulmonary embolism. Worsening respiratory status. Critical Care 42 mins Nate Santiago MD Mar 29, 2017 12:01
[2017-03-29] MEDS: BUMETANIDE INJ 1 MG/4 ML VIAL IV PUSH SCH (12:41)
[2017-03-29] MEDS: ASPIRIN EC 81 MG TABEC PO SCH (12:44)
[2017-03-29] MEDS: AMIODARONE 200 MG TAB PO SCH ×2 (12:45→22:17)
[2017-03-29] MEDS: PRAVASTATIN SOD 40 MG TAB PO SCH (12:45)
[2017-03-29] MEDS: DOCUSATE SODIUM 50 MG/SENNA 8.6 MG TAB PO SCH ×2 (12:46→22:17)
[2017-03-29] MEDS: FAMOTIDINE 20 MG TAB PO SCH ×2 (12:46→22:17)
[2017-03-29] MEDS: FLUoxetine HCL LIQUID 20 MG/5 ML CUP PO SCH (12:47)
[2017-03-29] MEDS: LEVOFLOXACIN 750 MG TAB PO SCH (12:47)
[2017-03-30] VITALS (14 sets, daily range): BP systolic 128–153; BP diastolic 60–85; PULSE 72–94; RESP 22–35; TEMP 98.3–99.4; O2SAT 94–99
[2017-03-30] MEDS: DILTIAZEM HCL 60 MG TAB PO SCH ×4 (00:28→17:47)
[2017-03-30] MEDS: ENOXAPARIN SODIUM 100 MG/ML SYRINGE SQ SCH ×2 (00:29→12:10)
[2017-03-30 03:42] LABS: HEMATOCRIT 24.1 % (35.0-46.0); MEAN CORPUSCULAR HEMOGLOBIN 29.9 PG (27.0-34.0); MEAN CORPUSCULAR HGB CONC 33.3 % (32.0-36.0); PLATELET COUNT 165 TH/MM3 (150-450); RED BLOOD COUNT 2.68 MIL/MM3 (4.00-5.30); RED CELL DISTRIBUTION WIDTH 14.6 % (11.6-17.2); REVIEW FLAG FINAL; WHITE BLOOD COUNT 12.3 TH/MM3 (4.0-11.0)
[2017-03-30 03:57] LABS: BICARBONATE 28.4 MEQ/L (21.0-32.0)
[2017-03-30] MEDS: CHLORHEXIDINE GLUCONATE 2 % 1 PACK (2 CLOTHS) TOP SCH (04:00)
[2017-03-30 04:43] LABS: POTASSIUM 2.8 MEQ/L (3.5-5.1)
[2017-03-30] MEDS ORDERED: ICU - POTASSIUM PHOSPHATE MONOBASIC 500 MG TAB PO PRN (05:15)
[2017-03-30] MEDS ORDERED: ICU - CALL ORDERING PHYSICIAN PRN (05:15)
[2017-03-30] MEDS ORDERED: ICU - MAGNESIUM OXIDE 400 MG TAB PO PRN (05:15)
[2017-03-30] MEDS ORDERED: ICU - SODIUM PHOSPHATE 30 MMOL/NS 250 ML IV PRN ×2 (05:15)
[2017-03-30] MEDS ORDERED: ICU - POTASSIUM CHLORIDE/AQUEOUS SOLN 20 MEQ/100 ML IVPB IV PRN (05:15)
[2017-03-30] MEDS ORDERED: ICU - POTASSIUM PHOSPHATE 30 MMOL/NS 250 ML IV PRN ×2 (05:15)
[2017-03-30] MEDS ORDERED: ICU - MAGNESIUM SULFATE 2 GM/NS 100 ML IV PRN ×2 (05:15)
[2017-03-30] MEDS ORDERED: POTASSIUM CHLORIDE 25 MEQ EFFERVESCENT TAB PO PRN (05:15)
[2017-03-30] MEDS ORDERED: ICU - D/C ICU ELECTROLYTE ORDERS PRN (05:15)
[2017-03-30] MEDS ORDERED: ICU - MAGNESIUM SULFATE 4 GM/NS 100 ML IV PRN ×2 (05:15)
[2017-03-30 05:19] LABS: CALCIUM-PROTEIN CORRECTED 8.1 MG/DL (8.5-10.1)
[2017-03-30] MEDS: ICU - POTASSIUM CHLORIDE/AQUEOUS SOLN 40 MEQ/100 ML IVPB IV PRN ×2 (05:21→09:03)
[2017-03-30] MEDS: LEVOTHYROXINE SODIUM 50 MCG TAB PO SCH (05:21)
--- NOTE | 2017-03-30 05:25 | EKG ---
Date Performed: 03/29/2017 Time Performed: 09:42:50 PTAGE: 71 years EKG: Atrial fibrillation with rapid ventricular response. Indeterminate axis Poor R wave progres pari - probable normal variant Lateral ST-T changes are nonspecific Low QRS voltages in limb leads Ab normal ECG PREVIOUS TRACING : 03/15/2017 16.34 DOCTOR: Antony Bourgeois Interpretating Date/Time 03/30/2017 05:16:11
[2017-03-30] MEDS: INSULIN ASPART SUPPLEMENTAL SCALE SQ SCH ×4 (08:00→20:34)
--- NOTE | 2017-03-30 08:07 | HHI.CCPN ---
Subjective Remarks/Hospital Course This is a 71 year old female with a PMH significant for colon cancer s/p chemotherapy, atrial fibrillation previously on Eliquis discontinued for GI bleeding, HTN, DM type 2, and MDD who presented to the ED with abdominal pain, nausea and vomiting.The patient stated that she had pain in her left side this morning that radiated to her lower abdomen and caused her to have nausea and vomiting. She states that she has been short of breath for the past 3 weeks and progressively more fatigued. Her states that she has been becoming progressively weaker and sleeping excessively at times. At 3AM this morning, he noticed that she was trying to talk but "wasn't making any sense." He states that she has been so short of breath that she has been having difficulty finishing sentences without becoming short of breath. She notes dysuria, urinary urgency and frequency for the past 3-4 days. Imaging studies and laboratory studies were performed. Notably CTA of the chest reveal pulmonary hypertension and carinal lymphadenopathy. CT abdomen and pelvis revealed bilateral hydronephrosis and pyelonephrosis with perinephric stranding. Cultures were sent, the patient was noted to have bacteremia notably gram- negative rods. The patient was in A. fib RVR in the ED the patient received Cardizem bolus and was placed on a Cardizem infusion and transferred to ICU. Upon admission to ICU the patient became progressively short of breath with escalating alternation in mental status critical care medicine was consulted. The patient's heart rate at that time was in the 130s systolic pressure 140s and O2 sat high 80s. Brief discussion with purpose of emergent intubation. Subjective: 03/16: Overnight the patient continued to have hemodynamic instability, now septic shock. Patient continues in A. fib with HR low 100's. Patient on maximum doses currently of norepinephrine and vasopressin infusions. [place]- cortisone added to medication regimen, Sodium bicarbonate infusion initiated. Imaging revealed hydronephrosis and pyelonephrosis patient seen by Dr. Larose, urine output now decreased to 150cc total over the last 12hrs, with continued elevation in creatinine. Planned renogram this a.m., to rule out obstruction with possible placement of nephrostomy tubes, and nephrology also consulted. Patient was seen by Dr. Candelario, carinal /hilar lymphadenopathy most likely not associated with carcinoma, plan for outpatient scan in 2-3 months. FiO2 was decreased to 60% overnight, ECHO pending her evaluation of cardiac status and pulmonary hypertension. 03/17: Overnight vasopressors weaned significantly, currently on lower doses. The patient continues on sodium bicarbonate infusion. Renogram canceled secondary to hemodynamic instability yesterday renal ultrasound performed revealed no hydronephrosis, creatinine continues to be elevated most likely secondary to acute kidney injury secondary to hypotension and septic shock. Nephrology consult pending. Echo revealed severe mitral valve stenosis and calcification with pulmonary hypertension and PASP 55.2 03/18: Remains sedated, orally intubated on mech vent. Off levophed. 03/19: Remains sedated, orally intubated on mechanical ventilation. Off Levophed. Blood pressure actually running high. Failed C Pap trials 03/20: Remains sedated, orally intubated on mechanical ventilation. Currently in A. fib. Off pressors. 03/21: Remains sedated, orally intubated on mechanical ventilation. In A. fib with RVR. Seen by Dr. Lubin on 03/21. Failed C Pap trials yesterday. 03/22: Remains sedated, orally intubated on mechanical ventilation. Remains in atrial fibrillation. Currently rate controlled with Cardizem drip. 03/23: Remains sedated, orally intubated on mechanical ventilation. On Cardizem drip for rate control for A. fib. 03/24: Remains drowsy off sedation, orally intubated on mechanical ventilation. Cardizem drip Her out for A. fib rate control. 03/25: Drowsy, easily arousable, squeezes my hand with her hands as well as wiggles her toes on command. Off Cardizem drip currently. Remains in A. fib rate controlled with by mouth Cardizem and amiodarone. 03/26: Seen earlier this morning. Patient extubated yesterday following C Pap trial. Currently on nasal cannula. 03/29: Worsening SOB and labored. Increased FiO2 requirements. Confused. Conversational dyspnea. New right lung PE; RV dimensions not enlarged. 03/30: Continued labored breathing. Switch to high flow O2 delivery. Would add an additional diuretic dose after potassium is replaced. Objective Vital Signs Date Time Temp Pulse Resp B/P (MAP) Pulse Ox O2 Delivery O2 Flow Rate FiO2 03/30/17 06:00 76 03/30/17 04:00 99.4 22 133/63 (86) 97 03/29/17 20:50 Simple Mask 10.00 Intake and Output 03/30/17 03/30/17 03/31/17 08:00 16:00 00:00 Intake Total 989.3 ml Output Total 1600 ml Balance -610.7 ml Result Diagram: 03/30/17 0326 03/30/17 0326 Other Results Laboratory Tests Test 03/29/17 10:43 Blood Gas Puncture Site RT RADIAL Blood Gas Patient Temperature 98.6 Blood Gas HCO3 29 mmol/L (22-26) Blood Gas Base Excess 5.9 mmol/L (-2-2) Blood Gas Oxygen Saturation 91 % (90-100) Arterial Blood pH 7.50 (7.380-7.420) Arterial Blood Partial Pressure CO2 37 mmHg (38-42) Arterial Blood Partial Pressure O2 65 mmHg (61-120) Arterial Blood Oxygen Content 13.9 Vol % (12.0-20.0) Arterial Blood Carboxyhemoglobin 1.8 % (0-4) Arterial Blood Methemoglobin 1.0 % (0-2) Blood Gas Hemoglobin 10.9 G/DL (12.0-16.0) Oxygen Delivery Device SIMPLE MASK Blood Gas Liter Flow 10 L/M Blood Gas Inspired Oxygen 50 % Imaging Last 48 hours Impressions Chest X-Ray 03/20/17 0600 Signed Impressions: Service Date/Time: Monday, March 20, 2017 04:57 - CONCLUSION: 1. Endotracheal tube and nasogastric tube in good position. Basilar airspace disease increased from March 18. Samuel Lin MD Last Impressions Chest X-Ray 03/17/17 0000 Signed Impressions: Service Date/Time: Friday, March 17, 2017 06:22 - CONCLUSION: Persistent infiltrates consolidation left lower lung and patchy infiltrates in the central right lung. Antonio Voss MD Renal Ultrasound 03/16/17 0000 Signed Impressions: Service Date/Time: Thursday, March 16, 2017 11:27 - CONCLUSION: The hydronephrosis has resolved. Urinary bladder is decompressed.. Jose Flores MD CT Angiography 03/15/17 0520 Signed Impressions: Service Date/Time: Wednesday, March 15, 2017 07:46 - CONCLUSION: 1. No evidence for pulmonary embolism. 2. Cardiomegaly with enlargement of pulmonary arteries likely from pulmonary arterial hypertension. 3. Bibasilar patchy densities could be atelectasis or infiltrate. 4. Mosaic attenuation which can be seen with small airway disease. 5. Enlarged precarinal and subcarinal adenopathy. Jai Queen MD Head CT 03/15/17 0000 Signed Impressions: Service Date/Time: Wednesday, March 15, 2017 07:47 - CONCLUSION: No acute intracranial disease. Jai Queen MD Abdomen/Pelvis CT 03/15/17 0000 Signed Impressions: Service Date/Time: Wednesday, March 15, 2017 07:51 - CONCLUSION: 1. Bilateral hydronephrosis with extensive stranding in the perinephric regions greater on the left. 2. Mild circumferential wall thickening within the bladder with mild distention. 3. Postsurgical changes rectosigmoid junction. 4. Small fat containing abdominal wall hernias. Jai Queen MD Last Impressions Chest X-Ray 03/16/17 0600 Signed Impressions: Service Date/Time: Thursday, March 16, 2017 04:58 - CONCLUSION: Persisting consolidation left mid and lower lung and improving infiltrates in the lower right lung. Antonio Voss MD CT Angiography 03/15/17 0520 Signed Impressions: Service Date/Time: Wednesday, March 15, 2017 07:46 - CONCLUSION: 1. No evidence for pulmonary embolism. 2. Cardiomegaly with enlargement of pulmonary arteries likely from pulmonary arterial hypertension. 3. Bibasilar patchy densities could be atelectasis or infiltrate. 4. Mosaic attenuation which can be seen with small airway disease. 5. Enlarged precarinal and subcarinal adenopathy. Jai Queen MD Head CT 03/15/17 0000 Signed Impressions: Service Date/Time: Wednesday, March 15, 2017 07:47 - CONCLUSION: No acute intracranial disease. Jai Queen MD Abdomen/Pelvis CT 03/15/17 0000 Signed Impressions: Service Date/Time: Wednesday, March 15, 2017 07:51 - CONCLUSION: 1. Bilateral hydronephrosis with extensive stranding in the perinephric regions greater on the left. 2. Mild circumferential wall thickening within the bladder with mild distention. 3. Postsurgical changes rectosigmoid junction. 4. Small fat containing abdominal wall hernias. Jai Queen MD Last Impressions Chest X-Ray 03/15/17519 Signed Impressions: Service Date/Time: Wednesday, March 15, 2017 05:41 - CONCLUSION: Opacity in the perihilar region bilaterally suggesting either central infiltrates or adenopathy. Antonio Voss MD CT Angiography 03/15/17519 Signed Impressions: Service Date/Time: Wednesday, March 15, 2017 07:46 - CONCLUSION: 1. No evidence for pulmonary embolism. 2. Cardiomegaly with enlargement of pulmonary arteries likely from pulmonary arterial hypertension. 3. Bibasilar patchy densities could be atelectasis or infiltrate. 4. Mosaic attenuation which can be seen with small airway disease. 5. Enlarged precarinal and subcarinal adenopathy. Jai Queen MD Head CT 03/15/17 0000 Signed Impressions: Service Date/Time: Wednesday, March 15, 2017 07:47 - CONCLUSION: No acute intracranial disease. Jai Queen MD Abdomen/Pelvis CT 03/15/17 0000 Signed Impressions: Service Date/Time: Wednesday, March 15, 2017 07:51 - CONCLUSION: 1. Bilateral hydronephrosis with extensive stranding in the perinephric regions greater on the left. 2. Mild circumferential wall thickening within the bladder with mild distention. 3. Postsurgical changes rectosigmoid junction. 4. Small fat containing abdominal wall hernias. Jai Queen MD Objective Remarks GENERAL: Elderly female, laying in bed in mild respiratory acute distress SKIN: Warm and dry. HEAD: Atraumatic. Normocephalic. EYES: Pupils equal and round. No scleral icterus. No injection or drainage. ENT: No nasal bleeding or discharge. Mucous membranes pink and moist. NECK: Trachea midline. Airway widely patent. CARDIOVASCULAR: Irregularly irregular rhythm. No JVD. Rate 96. RESPIRATORY: Breath sounds equal bilaterally. Few scattered rhonchi bilaterally. Tachypnea 30. GASTROINTESTINAL: Abdomen soft, protuberant non-tender, nondistended. No guarding. MUSCULOSKELETAL: Extremities without clubbing, cyanosis. Bilateral trace edema NEUROLOGICAL: Awake and alert. Following commands. Moving all 4 extremities. Procedures 03/16- Renogram cancelled . Renal US performed. 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 Follow neuro status. Start aspirin 162 mg daily 03/15 CT brain-no intracranial abnormality Effexor placed on hold Respiratory: Acute Hypoxemic respiratory failure Pulmonary hypertension Carinal adenopathy Extubated on 03/25 following C Pap trial. Tolerating nasal cannula Bronchodilators every 6 hours scheduled and every [address] angiogram -pulmonary hypertension, no PE, enlarged precarinal and subcarinal lymphadenopathy 03/17- CXR -consolidations B/L lobes worsened - 03/29. New right lung PE. Increased O2 requirements. - Start high flow NC. Cardiovascular: A. fib RVR Hypertension Patient arrived on Cardizem infusion-heart rate 130's, discontinue for MAP less than 60. Patient's home med amiodarone 200 mg daily increased to 400 mg twice a day. Labetalol when necessary for hypertension. Off pressors currently. Last echo 01/2015- ejection fraction 55-60%. No RWMA. PAP 35 mmHg, TV mild regurg ,MV mild regurg ECHO 03/16-EF 55- 60%. No RWMA, severe mitral valve annular calcification. Moderate mitral stenosis. Trace to mild MR, moderate TR, PAS P 55.2, trivial pulmonary valve regurgitation EPS- Dr. Lubin consulted. Discussed with Dr. Lubin on 03/21, plan to transition to by mouth Cardizem. Patient previously has had GI bleed on anticoagulation hence we'll hold off on any anticoagulation currently. Currently off Cardizem drip for rate control, remains on by mouth Cardizem. Dr. Lubin agreeable with starting aspirin 162 mg by mouth daily. Continue diuresis Renal: Bilateral hydronephrosis-resolved Pyelonephrosis Acute kidney injury most likely secondary to septic shock Elevated creatinine Hypernatremia Insert and maintain Gallo catheter 03/14-CT of the abdomen and pelvis-bilateral hydronephrosis, pyelonephrosis, perinephric stranding 03/16 renal ultrasound-no hydronephrosis KVO IV fluids. On Bumex 1 mg IV daily to mobilize fluid -- Strict I/Os, monitor and replete electrolytes, follow BUN/creatinine. Hypernatremia improved with free water which is stopped. FEN/GI: History of colon cancer status post chemotherapy Abdominal hernia Advance by mouth diet as tolerated Bowel regimen Heme/ID: Septic shock Community-acquired multilobar pneumonia Lactic acidemia Bandemia-resolved Blood cultures Klebsiella Urine culture Klebsiella Follow-up sputum culture Streptococcal and legionella antigens negative ID consulted - Dr. Hansen On antibiotics per ID Heme- Onc consulted regarding carinal adenopathy lymphadenopathy, patient is S/ P completion of chemotherapy 06/2016 Endocrine: Diabetes mellitus Hypothyroidism High-dose insulin medication regimen, Levemir 15 units subcutaneously twice a day -hold for anticipated extubation as tube feeds will be held until tolerating by mouth. Continue Levothyroxine 50 mcgs/day Obtain thyroid panel Glucose monitoring per ICU protocol -- SSI Prophylaxis: GI Prophylaxis famotidine BID DVT Prophylaxis -- SCDs Heparin 5000u Q8H Lines: Port right chest, peripheral IVs 2, left radial A-line Dispo: Overall impression: Critically ill with hypoxemic respiratory failure and new pulmonary embolism. Unstable respiratory status. Critical Care 38 mins Nate Santiago MD Mar 30, 2017 08:07
[2017-03-30] MEDS: INSULIN DETEMIR 100 UNITS/ML VIAL SQ SCH ×2 (09:00→20:34)
[2017-03-30] MEDS: SODIUM CHLORIDE 0.9% FLUSH 10 ML FLUSH IV FLUSH SCH ×2 (09:00→20:33)
[2017-03-30] MEDS: PRAVASTATIN SOD 40 MG TAB PO SCH (09:04)
[2017-03-30] MEDS: FLUoxetine HCL LIQUID 20 MG/5 ML CUP PO SCH (09:05)
[2017-03-30] MEDS: AMIODARONE 200 MG TAB PO SCH ×2 (09:05→20:33)
[2017-03-30] MEDS: DOCUSATE SODIUM 50 MG/SENNA 8.6 MG TAB PO SCH ×2 (09:05→20:34)
[2017-03-30] MEDS: ASPIRIN EC 81 MG TABEC PO SCH (09:05)
[2017-03-30] MEDS: FAMOTIDINE 20 MG TAB PO SCH ×2 (09:05→20:34)
--- NOTE | 2017-03-30 09:51 | HHI.FPPN ---
Subjective Remarks Ms Marroquin is improved today compared to yesterday. She is not delirious and per her slept last night. She has no complaints this am and is on high flow nasal canula. Her reports she's not eating but detests glucerna so will not order it. She still has some shallow breathing and an increased respiratory rate but otherwise her pulse is great today. Objective Vitals Vital Signs Date Time Temp Pulse Resp B/P (MAP) Pulse Ox O2 Delivery O2 Flow Rate FiO2 03/30/17 08:10 94 High Flow Nasal Cannula 25.00 50 03/30/17 08:00 93 03/30/17 07:00 98 Simple Mask 10.00 03/30/17 06:00 76 03/30/17 04:00 99.4 87 22 133/63 (86) 97 03/30/17 04:00 72 03/30/17 02:00 78 03/30/17 00:00 82 03/30/17 00:00 88 27 130/63 (85) 99 03/29/17 22:00 95 03/29/17 20:50 95 Simple Mask 10.00 03/29/17 20:00 98.4 90 25 145/63 (90) 96 03/29/17 20:00 90 03/29/17 19:00 96 Simple Mask 10.00 03/29/17 16:00 99.8 100 55 147/69 (95) 95 03/29/17 16:00 100 03/29/17 14:00 108 03/29/17 12:09 95 Simple Mask 9.00 03/29/17 12:00 96 Simple Mask 10.00 03/29/17 12:00 99.8 106 40 145/80 (101) 92 03/29/17 12:00 108 I/O 03/29/17 03/29/17 03/29/17 03/30/17 03/30/17 03/30/17 07:00 15:00 23:00 07:00 15:00 23:00 Intake Total 480 ml 240 ml 989.3 ml Output Total 1500 ml 1600 ml Balance 480 ml -1260 ml -610.7 ml Intake Oral 480 ml 240 ml 960 ml IV Total 29.3 ml Output Urine Total 1500 ml 1600 ml # Voids 4 1 # Bowel Movements 0 0 Result Diagram: 03/30/17 0326 03/30/17325 Objective Remarks GENERAL: Lying in bed, nasal canula, using accessory muscles barely today with very little abdominal breathing much improved over yesterday, alert and not delirious today SKIN: No rashes or lesions HEENT; Normocephalic, no conjunctivitis NECK: Supple, trachea midline. No JVD or lymphadenopathy. CARDIOVASCULAR: Irregularly irregular rate and rhythm with systolic murmur, rate 80s this morning RESPIRATORY: little accessory muscle use,clear, on high flow oxygen GASTROINTESTINAL: Abdomen soft, non-tender, distended. Bowel sounds present. MUSCULOSKELETAL: No edema NEURO: Answering simple questions, awake and alert and cooperative Urinary Catheter: Yes Assessment to: Continue Gallo insert reason: ICU Pt Getting Diuretics Date of Insertion: Mar 15, 2017 Vascular Central Line Catheter: No A/P Assessment and Plan 71 year old female with a PMH significant for colon cancer s/p chemotherapy, atrial fibrillation on Eliquis, HTN, DM type 2, and MDD who presented to the ED with abdominal pain, nausea and vomiting and was found to have severe sepsis secondary to PNA and pyelonephritis in addition to atrial fibrillation with RVR. She rapidly decompensated into respiratory failure and was intubated on . Patient then improved and was extubated and moved to the [facility]. Yesterday morning there was acutely worsened respiratory status, found to have PE on right. Transferred back to [facility] on therapeutic Lovenox. Improved today Discharge Planning Will likely need a SNF once improved as she will be very weak and debilitated. Should be able to ultimately go to [place] Problem List: (1) Pulmonary emboli ICD Codes: I26.99 - Other pulmonary embolism without acute cor pulmonale Status: Acute Plan: on therapeutic dose lovenox. was on sq heparin and refused a dose right before getting PE (2) Atrial fibrillation with rapid ventricular response ICD Codes: I48.91 - Atrial fibrillation with rapid ventricular response Status: Resolved Plan: on cardizem plus amiodarone (3) Diabetes mellitus, type II ICD Codes: E11.9 - Type 2 diabetes mellitus Status: Chronic (4) Hypertension ICD Codes: I10 - Essential (primary) hypertension Status: Chronic (5) Hypothyroidism ICD Codes: E03.9 - Hypothyroidism Status: Acute (6) Nutrition, metabolism, and development symptoms ICD Codes: R63.8 - Symptoms concerning nutrition, metabolism, and development Status: Acute (7) Sepsis due to Gram-negative organism with septic shock ICD Codes: A41.50 - Gram-negative sepsis, unspecified; R65.21 - Severe sepsis with septic shock Status: Resolved Plan: ORGAN SYSTEM ASSESSMENT Neurologic: AMS-toxic encephalopathy secondary to sepsis History of TIA x 2 Major Depressive Disorder 03/15 CT brain-no intracranial abnormality Neurology consulted- Dr. Huff Fluoxetine 20 mg daily delirious with PE now improved Respiratory: Acute Hypoxemic respiratory failure Pulmonary hypertension Carinal adenopathy Pulmonary embolism on right, small volume 03/15 Patient intubated emergently Duonebs Q6H scheduled and Q2H when necessary Chest x-ray 03/29 - worsening aeration CTA on 03/28 - small volume PE on right, on therapeutic Lovenox History of pneumonia, possibly redeveloping pneumonia, currently not on antibiotics Currently diuresed with Bumex 1mg IV daily, monitor I's and O's Pulmonary HTN not present on last echo in 2014, 03/16 Echo shows EF 55-60%, severe mitral annular calcification with moderate mitral valve stenosis, mildly dilated right atrium, mild to mod aortic valve stenosis, pulmonary arterial pressure 55.2 Breathing on high flow nasal canula ABG with respiratory/metabolic alkalosis with hyperventilation from PE Cardiovascular: A. fib RVR Hypertension Amiodarone 400mg PO BID. labetalol when necessary for hypertension. Cardizem drip restarted for afib with RVR, rate was in 130-140's. Now down to 80s Last echo 02/05- ejection fraction 55-60%. No RWMA. APA 35 mmHg, TV mild regurg, MV mild regurg 03/16 Echo results as above EPS- Dr. Lubin consulted, has signed off Renal: Bilateral hydronephrosis Pyelonephrosis Gallo catheter re-inserted on 03/29 for critical state, diuresis, accurate I's and O's, poor mobility 03/14-CT of the abdomen and pelvis-bilateral hydronephrosis, pyelonephrosis, perinephric stranding -- Strict I/Os Urology consulted, has signed off- 03/16 renal US shows resolution of hydronephrosis, urinary bladder decompressed Nephrology consulted, recommendations appreciated Creatinine stable FEN/GI: History of colon cancer status post chemotherapy and colectomy Abdominal hernia Diabetic Diet Heme/ID: Septic Shock due to gram negative carmela on admission, better now Community-acquired multilobar pneumonia Pyelonephritis Lactic acidemia Bandemia 03/15 Blood cultures growing Klebsiella pneumoniae 03/15 urine culture growing Klebsiella pneumonia 03/16 sputum culture: No growth to date 2 days legionella and streptococcus antigens negative ID consulted - Dr. Hansen, treat with Levaquin, started 03/25 (dosed every other day). (vanc and cefepime have been discontinued) 03/19: Urine culture: No growth to date 2 Heme- Onc consulted regarding carinal adenopathy lymphadenopathy, patient is S/ P completion of chemotherapy 09/2016. Repeat CT chest in 1-2 months to evaluate mediastinal lymph nodes as outpatient Trend lactate level 6.4->4.2->4.9->3.0->1.5->2.2->2.3 Endocrine: Diabetes mellitus Hypothyroidism High-dose SSI every 6 hours Long-acting Levemir at 5 units twice a day, will monitor for hypoglycemia Continue Levothyroxine 50 mcgs/day Prophylaxis: GI Prophylaxis with famotidine 10 mg BID DVT Prophylaxis: currently therapeutic Lovenox Problem Qualifiers (1) Pulmonary emboli: Qualified Codes: I26.99 - Other pulmonary embolism without acute cor pulmonale (2) Diabetes mellitus, type II: Qualified Codes: E11.9 - Type 2 diabetes mellitus without complications; Z79.4 - senior living (current) use of insulin (3) Hypertension: Qualified Codes: I10 - Essential (primary) hypertension (4) Hypothyroidism: Qualified Codes: E03.9 - Hypothyroidism, unspecified Lydia Greenberg MD Mar 30, 2017 09:51
[2017-03-30] MEDS ORDERED: ALPRAZolam 0.5 MG TAB PO PRN (14:15)
[2017-03-30 15:06] LABS: MAGNESIUM 1.8 MG/DL (1.5-2.5); POTASSIUM 3.8 MEQ/L (3.5-5.1)
[2017-03-30] MEDS: BUMETANIDE INJ 1 MG/4 ML VIAL IV PUSH SCH (17:46)
[2017-03-31] VITALS (12 sets, daily range): BP systolic 109–154; BP diastolic 59–73; PULSE 70–99; RESP 15–33; TEMP 97.8–99.5; O2SAT 92–97
[2017-03-31] MEDS: ENOXAPARIN SODIUM 100 MG/ML SYRINGE SQ SCH ×3 (00:10→22:50)
[2017-03-31] MEDS: DILTIAZEM HCL 60 MG TAB PO SCH ×5 (00:10→22:50)
[2017-03-31] MEDS: CHLORHEXIDINE GLUCONATE 2 % 1 PACK (2 CLOTHS) TOP SCH (03:40)
[2017-03-31 05:28] LABS: AUTOMATED NEUTROPHIL # 7.6 TH/MM3 (1.8-7.7); BASOPHIL % 0.3 % (0.0-2.0); EOSINOPHIL # 0.1 TH/MM3 (0-0.4); EOSINOPHIL % 0.5 % (0.0-4.0); HEMATOCRIT 25.3 % (35.0-46.0); HEMO FLAGS DIFF FINAL; LYMPH % 8.9 % (9.0-44.0); LYMPHOCYTE # 0.8 TH/MM3 (1.0-4.8); MEAN CORPUSCULAR HEMOGLOBIN 30.3 PG (27.0-34.0); MEAN CORPUSCULAR HGB CONC 33.7 % (32.0-36.0); MONO % 9.3 % (0.0-8.0); PLATELET COUNT 223 TH/MM3 (150-450); RED BLOOD COUNT 2.81 MIL/MM3 (4.00-5.30); WHITE BLOOD COUNT 9.5 TH/MM3 (4.0-11.0)
[2017-03-31] MEDS: LEVOTHYROXINE SODIUM 50 MCG TAB PO SCH (06:46)
[2017-03-31 07:06] LABS: ANION GAP 7 MEQ/L (5-15); AST (GOT) 21 U/L (15-37); BICARBONATE 28.7 MEQ/L (21.0-32.0); BLOOD UREA NITROGEN 11 MG/DL (7-18); CHLORIDE 102 MEQ/L (98-107); GLOMERULAR FILTRATION RATE 67 ML/MIN (>89); MAGNESIUM 1.8 MG/DL (1.5-2.5); POTASSIUM 3.4 MEQ/L (3.5-5.1); SODIUM (NA) 138 MEQ/L (136-145)
[2017-03-31 07:14] LABS: ALKALINE PHOSPHATASE 137 U/L (45-117); ALT (GPT) 19 U/L (10-53); TOTAL BILIRUBIN ADULT 0.6 MG/DL (0.2-1.0)
[2017-03-31] MEDS: INSULIN ASPART SUPPLEMENTAL SCALE SQ SCH ×4 (07:52→20:24)
[2017-03-31] MEDS: MAGNESIUM HYDROXIDE SUSP 30 ML CUP PO PRN (07:53)
[2017-03-31] MEDS: INSULIN DETEMIR 100 UNITS/ML VIAL SQ SCH ×2 (07:53→20:22)
[2017-03-31] MEDS: DOCUSATE SODIUM 50 MG/SENNA 8.6 MG TAB PO SCH ×2 (08:36→20:22)
[2017-03-31] MEDS: FLUoxetine HCL LIQUID 20 MG/5 ML CUP PO SCH (08:36)
[2017-03-31] MEDS: FAMOTIDINE 20 MG TAB PO SCH ×2 (08:36→20:22)
[2017-03-31] MEDS: ASPIRIN EC 81 MG TABEC PO SCH (08:36)
[2017-03-31] MEDS: BUMETANIDE INJ 1 MG/4 ML VIAL IV PUSH SCH (08:36)
[2017-03-31] MEDS: ICU - POTASSIUM CHLORIDE/AQUEOUS SOLN 40 MEQ/100 ML IVPB IV PRN (08:37)
[2017-03-31] MEDS: AMIODARONE 200 MG TAB PO SCH ×2 (08:37→20:22)
[2017-03-31] MEDS: LEVOFLOXACIN 750 MG TAB PO SCH (08:37)
[2017-03-31] MEDS: SODIUM CHLORIDE 0.9% FLUSH 10 ML FLUSH IV FLUSH SCH ×2 (08:37→20:24)
[2017-03-31] MEDS: PRAVASTATIN SOD 40 MG TAB PO SCH (08:37)
[2017-03-31] MEDS ORDERED: SOD PHOSPHATE/SOD BIPHOSPHATE (ADULT) ENEMA 133ML RECTAL PRN (09:30)
[2017-03-31] MEDS ORDERED: SOD PHOSPHATE/SOD BIPHOSPHATE (ADULT) ENEMA 133ML RECTAL ONE (09:30)
--- NOTE | 2017-03-31 09:37 | HHI.FPPN ---
Subjective Remarks Patient reviewed with at bedside. Patient has not had a bowel movement for over 3 days (she is not sure when she had her last bowel movement). She has developed worsening abdominal pain which comes and goes. Pain is 8 out of 10 located in the middle of her abdomen, nonradiating. It lasts for about 20 minutes and goes away. However, the pain returns relatively quickly. She denies nausea, vomiting, fever, chills. No dysuria. She believes it is related to constipation and is requesting a enema. She is not sure if she is passing gas. Denies chest pain. (Monico John MD, R3) Objective Vitals Vital Signs Date Time Temp Pulse Resp B/P (MAP) Pulse Ox O2 Delivery O2 Flow Rate FiO2 03/31/17 08:00 98.3 90 33 137/73 (94) 95 03/31/17 08:00 90 03/31/17 07:00 96 Nasal Cannula 25.00 50 03/31/17 06:00 86 03/31/17 04:00 98.3 76 20 134/59 (84) 97 03/31/17 04:00 76 03/31/17 02:00 78 03/31/17 00:00 75 03/31/17 00:00 98.4 70 22 128/60 (82) 96 03/30/17 22:00 84 03/30/17 21:05 97 High Flow Nasal Cannula 25.00 50 03/30/17 20:00 84 03/30/17 20:00 98.3 84 26 128/60 (82) 95 03/30/17 19:00 97 Nasal Cannula 25.00 50 03/30/17 18:00 86 03/30/17 16:00 82 03/30/17 16:00 98.6 82 22 137/67 (90) 95 03/30/17 14:00 90 03/30/17 12:00 94 03/30/17 12:00 99.2 94 33 153/70 (97) 98 03/30/17 10:00 90 I/O 03/30/17 03/30/17 03/30/17 03/31/17 03/31/17 03/31/17 07:00 15:00 23:00 07:00 15:00 23:00 Intake Total 989.3 ml 198 ml 1200 ml 1200 ml Output Total 1600 ml 1950 ml 2050 ml Balance -610.7 ml 198 ml -750 ml -850 ml Intake Oral 960 ml 1200 ml 1200 ml IV Total 29.3 ml 198 ml Output Urine Total 1600 ml 1950 ml 2050 ml # Bowel Movements 0 1 1 (Monico John MD, R3) Result Diagram: 03/31/1744403/31/17444 Objective Remarks GENERAL: Lying in bed, nasal canula, using accessory muscles barely today with very little abdominal breathing much improved over yesterday, alert and not delirious today SKIN: No rashes or lesions HEENT; Normocephalic, no conjunctivitis NECK: Supple, trachea midline. No JVD or lymphadenopathy. CARDIOVASCULAR: Irregularly irregular rate and rhythm with systolic murmur RESPIRATORY: little accessory muscle use,clear, on high flow oxygen GASTROINTESTINAL: Abdomen soft, mildly tender in middle quadrant, Bowel sounds present. No rebound or guarding. MUSCULOSKELETAL: No edema NEURO: Answering simple questions, awake and alert and cooperative (Monico John MD, R3) Date of Insertion: Mar 15, 2017 (Monico John MD, R3) A/P Assessment and Plan 71 year old female with a PMH significant for colon cancer s/p chemotherapy, atrial fibrillation on Eliquis, HTN, DM type 2, and MDD who presented to the ED with abdominal pain, nausea and vomiting and was found to have severe sepsis secondary to PNA and pyelonephritis in addition to atrial fibrillation with RVR. She rapidly decompensated into respiratory failure and was intubated on . Patient then improved and was extubated and moved to the [facility]. On 03/29, there was acutely worsened respiratory status, found to have PE on right. Transferred back to [facility] on therapeutic Lovenox. Improved today, although experiencing new abdominal pain likely related to constipation. Discharge Planning Will likely need a SNF once improved as she will be very weak and debilitated. Should be able to ultimately go to [place] (Monico John MD, R3) Attending Attestation Patient seen and examined. Case reviewed and discussed with the resident team. Agree with plan of care as discussed with me and documented in the resident note. she had a result from her enema and is having no abdominal pain. her is concerned that she is having some tachycardia and breathing more rapidly but very shallow. she was given some ativan as she has not been sleeping well and does have some anxiety at baseline (Lydia Greenberg MD) Problem List: (1) Pulmonary emboli ICD Codes: I26.99 - Other pulmonary embolism without acute cor pulmonale Status: Acute Plan: on therapeutic dose lovenox. was on sq heparin and refused a dose right before getting PE (2) Abdominal pain ICD Codes: R10.9 - Unspecified abdominal pain Status: Acute Plan: Likely related to constipation. Patient has not had a bowel movement and multiple days. Patient requesting fleets enema. If no improvement after enema, or worsening pain, consider abdominal scanning and possible lab workup including lactic acid (3) Atrial fibrillation with rapid ventricular response ICD Codes: I48.91 - Atrial fibrillation with rapid ventricular response Status: Resolved Plan: on cardizem plus amiodarone (4) Diabetes mellitus, type II ICD Codes: E11.9 - Type 2 diabetes mellitus Status: Chronic Plan: High-dose SSI every 6 hours Long-acting Levemir at 5 units twice a day, will monitor for hypoglycemia (5) Hypertension ICD Codes: I10 - Essential (primary) hypertension Status: Chronic (6) Hypothyroidism ICD Codes: E03.9 - Hypothyroidism Status: Acute Plan: Continue Levothyroxine 50 mcgs/day (7) Nutrition, metabolism, and development symptoms ICD Codes: R63.8 - Symptoms concerning nutrition, metabolism, and development Status: Acute (8) Sepsis due to Gram-negative organism with septic shock ICD Codes: A41.50 - Gram-negative sepsis, unspecified; R65.21 - Severe sepsis with septic shock Status: Resolved Plan: ORGAN SYSTEM ASSESSMENT Neurologic: AMS-toxic encephalopathy secondary to sepsis History of TIA x 2 Major Depressive Disorder 03/15 CT brain-no intracranial abnormality Neurology consulted- Dr. Huff Fluoxetine 20 mg daily delirious with PE now improved Respiratory: Acute Hypoxemic respiratory failure Pulmonary hypertension Carinal adenopathy Pulmonary embolism on right, small volume 03/15 Patient intubated emergently Duonebs Q6H scheduled and Q2H when necessary Chest x-ray 03/29 - worsening aeration CTA on 03/28 - small volume PE on right, on therapeutic Lovenox History of pneumonia, possibly redeveloping pneumonia, currently not on antibiotics Currently diuresed with Bumex 1mg IV daily, monitor I's and O's Pulmonary HTN not present on last echo in 2014, 03/16 Echo shows EF 55-60%, severe mitral annular calcification with moderate mitral valve stenosis, mildly dilated right atrium, mild to mod aortic valve stenosis, pulmonary arterial pressure 55.2 Breathing on high flow nasal canula ABG with respiratory/metabolic alkalosis with hyperventilation from PE Cardiovascular: A. fib RVR Hypertension Amiodarone 400mg PO BID. labetalol when necessary for hypertension. Cardizem drip restarted for afib with RVR, rate was in 130-140's. Now down to 80s Last echo 02/05- ejection fraction 55-60%. No RWMA. APA 35 mmHg, TV mild regurg, MV mild regurg 03/16 Echo results as above EPS- Dr. Lubin consulted, has signed off Renal: Bilateral hydronephrosis Pyelonephrosis Gallo catheter re-inserted on 03/29 for critical state, diuresis, accurate I's and O's, poor mobility 03/14-CT of the abdomen and pelvis-bilateral hydronephrosis, pyelonephrosis, perinephric stranding -- Strict I/Os Urology consulted, has signed off- 03/16 renal US shows resolution of hydronephrosis, urinary bladder decompressed Nephrology consulted, recommendations appreciated Creatinine stable FEN/GI: History of colon cancer status post chemotherapy and colectomy Abdominal hernia Diabetic Diet Heme/ID: Septic Shock due to gram negative carmela on admission, better now Community-acquired multilobar pneumonia Pyelonephritis Lactic acidemia Bandemia 03/15 Blood cultures growing Klebsiella pneumoniae 03/15 urine culture growing Klebsiella pneumonia 03/16 sputum culture: No growth to date 2 days legionella and streptococcus antigens negative ID consulted - Dr. Hansen, treat with Levaquin, started 03/25 (dosed every other day). (vanc and cefepime have been discontinued) 03/19: Urine culture: No growth to date 2 Heme- Onc consulted regarding carinal adenopathy lymphadenopathy, patient is S/ P completion of chemotherapy 09/2016. Repeat CT chest in 1-2 months to evaluate mediastinal lymph nodes as outpatient Trend lactate level 6.4->4.2->4.9->3.0->1.5->2.2->2.3 Endocrine: Diabetes mellitus Hypothyroidism High-dose SSI every 6 hours Long-acting Levemir at 5 units twice a day, will monitor for hypoglycemia Continue Levothyroxine 50 mcgs/day Prophylaxis: GI Prophylaxis with famotidine 10 mg BID DVT Prophylaxis: currently therapeutic Lovenox (Monico John MD, R3) Problem Qualifiers (1) Pulmonary emboli: Qualified Codes: I26.99 - Other pulmonary embolism without acute cor pulmonale (2) Abdominal pain: Qualified Codes: R10.84 - Generalized abdominal pain (3) Diabetes mellitus, type II: Qualified Codes: E11.9 - Type 2 diabetes mellitus without complications; Z79.4 - senior care (current) use of insulin (4) Hypertension: Qualified Codes: I10 - Essential (primary) hypertension (5) Hypothyroidism: Qualified Codes: E03.9 - Hypothyroidism, unspecified Monico John MD, R3 Mar 31, 2017 09:37 Lydia Greenberg MD Mar 31, 2017 12:52
[2017-03-31] MEDS: LORazepam 2 MG/ML VIAL IV PUSH PRN (12:15)
--- NOTE | 2017-03-31 17:10 | HHI.CCPN ---
Subjective Remarks/Hospital Course This is a 71 year old female with a PMH significant for colon cancer s/p chemotherapy, atrial fibrillation previously on Eliquis discontinued for GI bleeding, HTN, DM type 2, and MDD who presented to the ED with abdominal pain, nausea and vomiting.The patient stated that she had pain in her left side this morning that radiated to her lower abdomen and caused her to have nausea and vomiting. She states that she has been short of breath for the past 3 weeks and progressively more fatigued. Her states that she has been becoming progressively weaker and sleeping excessively at times. At 3AM this morning, he noticed that she was trying to talk but "wasn't making any sense." He states that she has been so short of breath that she has been having difficulty finishing sentences without becoming short of breath. She notes dysuria, urinary urgency and frequency for the past 3-4 days. Imaging studies and laboratory studies were performed. Notably CTA of the chest reveal pulmonary hypertension and carinal lymphadenopathy. CT abdomen and pelvis revealed bilateral hydronephrosis and pyelonephrosis with perinephric stranding. Cultures were sent, the patient was noted to have bacteremia notably gram- negative rods. The patient was in A. fib RVR in the ED the patient received Cardizem bolus and was placed on a Cardizem infusion and transferred to ICU. Upon admission to ICU the patient became progressively short of breath with escalating alternation in mental status critical care medicine was consulted. The patient's heart rate at that time was in the 130s systolic pressure 140s and O2 sat high 80s. Brief discussion with purpose of emergent intubation. Subjective: 03/16: Overnight the patient continued to have hemodynamic instability, now septic shock. Patient continues in A. fib with HR low 100's. Patient on maximum doses currently of norepinephrine and vasopressin infusions. [place]- cortisone added to medication regimen, Sodium bicarbonate infusion initiated. Imaging revealed hydronephrosis and pyelonephrosis patient seen by Dr. Larose, urine output now decreased to 150cc total over the last 12hrs, with continued elevation in creatinine. Planned renogram this a.m., to rule out obstruction with possible placement of nephrostomy tubes, and nephrology also consulted. Patient was seen by Dr. Candelario, carinal /hilar lymphadenopathy most likely not associated with carcinoma, plan for outpatient scan in 2-3 months. FiO2 was decreased to 60% overnight, ECHO pending her evaluation of cardiac status and pulmonary hypertension. 03/17: Overnight vasopressors weaned significantly, currently on lower doses. The patient continues on sodium bicarbonate infusion. Renogram canceled secondary to hemodynamic instability yesterday renal ultrasound performed revealed no hydronephrosis, creatinine continues to be elevated most likely secondary to acute kidney injury secondary to hypotension and septic shock. Nephrology consult pending. Echo revealed severe mitral valve stenosis and calcification with pulmonary hypertension and PASP 55.2 03/18: Remains sedated, orally intubated on mech vent. Off levophed. 03/19: Remains sedated, orally intubated on mechanical ventilation. Off Levophed. Blood pressure actually running high. Failed C Pap trials 03/20: Remains sedated, orally intubated on mechanical ventilation. Currently in A. fib. Off pressors. 03/21: Remains sedated, orally intubated on mechanical ventilation. In A. fib with RVR. Seen by Dr. Lubin on 03/21. Failed C Pap trials yesterday. 03/22: Remains sedated, orally intubated on mechanical ventilation. Remains in atrial fibrillation. Currently rate controlled with Cardizem drip. 03/23: Remains sedated, orally intubated on mechanical ventilation. On Cardizem drip for rate control for A. fib. 03/24: Remains drowsy off sedation, orally intubated on mechanical ventilation. Cardizem drip Her out for A. fib rate control. 03/25: Drowsy, easily arousable, squeezes my hand with her hands as well as wiggles her toes on command. Off Cardizem drip currently. Remains in A. fib rate controlled with by mouth Cardizem and amiodarone. 03/26: Seen earlier this morning. Patient extubated yesterday following C Pap trial. Currently on nasal cannula. 03/29: Worsening SOB and labored. Increased FiO2 requirements. Confused. Conversational dyspnea. New right lung PE; RV dimensions not enlarged. 03/30: Continued labored breathing. Switch to high flow O2 delivery. Would add an additional diuretic dose after potassium is replaced. 03/31: Breathing much improved, comfortable while laying supine. Objective Vital Signs Date Time Temp Pulse Resp B/P (MAP) Pulse Ox O2 Delivery O2 Flow Rate FiO2 03/31/17 16:00 87 10/8/17 16:00 99.5 15 124/61 (82) 96 03/31/17 08:00 High Flow Nasal Cannula 25.00 50 Intake and Output 03/31/17 03/31/17 04/01/17 08:00 16:00 00:00 Intake Total 1200 ml Output Total 2050 ml Balance -850 ml Result Diagram: 03/31/175 03/31/17 0445 Imaging Last 48 hours Impressions Chest X-Ray 03/20/17 0600 Signed Impressions: Service Date/Time: Monday, March 20, 2017 04:57 - CONCLUSION: 1. Endotracheal tube and nasogastric tube in good position. Basilar airspace disease increased from March 18. Samuel Lin MD Last Impressions Chest X-Ray 03/17/17 0000 Signed Impressions: Service Date/Time: Friday, March 17, 2017 06:22 - CONCLUSION: Persistent infiltrates consolidation left lower lung and patchy infiltrates in the central right lung. Antonio Voss MD Renal Ultrasound 03/16/17 0000 Signed Impressions: Service Date/Time: Thursday, March 16, 2017 11:27 - CONCLUSION: The hydronephrosis has resolved. Urinary bladder is decompressed.. Jose Flores MD CT Angiography 03/15/17 0520 Signed Impressions: Service Date/Time: Wednesday, March 15, 2017 07:46 - CONCLUSION: 1. No evidence for pulmonary embolism. 2. Cardiomegaly with enlargement of pulmonary arteries likely from pulmonary arterial hypertension. 3. Bibasilar patchy densities could be atelectasis or infiltrate. 4. Mosaic attenuation which can be seen with small airway disease. 5. Enlarged precarinal and subcarinal adenopathy. Jai Queen MD Head CT 03/15/17 0000 Signed Impressions: Service Date/Time: Wednesday, March 15, 2017 07:47 - CONCLUSION: No acute intracranial disease. Jai Queen MD Abdomen/Pelvis CT 03/15/17 0000 Signed Impressions: Service Date/Time: Wednesday, March 15, 2017 07:51 - CONCLUSION: 1. Bilateral hydronephrosis with extensive stranding in the perinephric regions greater on the left. 2. Mild circumferential wall thickening within the bladder with mild distention. 3. Postsurgical changes rectosigmoid junction. 4. Small fat containing abdominal wall hernias. Jai Queen MD Last Impressions Chest X-Ray 03/16/17 0600 Signed Impressions: Service Date/Time: Thursday, March 16, 2017 04:58 - CONCLUSION: Persisting consolidation left mid and lower lung and improving infiltrates in the lower right lung. Antonio Voss MD CT Angiography 03/15/17 0520 Signed Impressions: Service Date/Time: Wednesday, March 15, 2017 07:46 - CONCLUSION: 1. No evidence for pulmonary embolism. 2. Cardiomegaly with enlargement of pulmonary arteries likely from pulmonary arterial hypertension. 3. Bibasilar patchy densities could be atelectasis or infiltrate. 4. Mosaic attenuation which can be seen with small airway disease. 5. Enlarged precarinal and subcarinal adenopathy. Jai Queen MD Head CT 03/15/17 0000 Signed Impressions: Service Date/Time: Wednesday, March 15, 2017 07:47 - CONCLUSION: No acute intracranial disease. Jai Queen MD Abdomen/Pelvis CT 03/15/17 0000 Signed Impressions: Service Date/Time: Wednesday, March 15, 2017 07:51 - CONCLUSION: 1. Bilateral hydronephrosis with extensive stranding in the perinephric regions greater on the left. 2. Mild circumferential wall thickening within the bladder with mild distention. 3. Postsurgical changes rectosigmoid junction. 4. Small fat containing abdominal wall hernias. Jai Queen MD Last Impressions Chest X-Ray 03/15/17 0520 Signed Impressions: Service Date/Time: Wednesday, March 15, 2017 05:41 - CONCLUSION: Opacity in the perihilar region bilaterally suggesting either central infiltrates or adenopathy. Antonio Voss MD CT Angiography 03/15/17 0520 Signed Impressions: Service Date/Time: Wednesday, March 15, 2017 07:46 - CONCLUSION: 1. No evidence for pulmonary embolism. 2. Cardiomegaly with enlargement of pulmonary arteries likely from pulmonary arterial hypertension. 3. Bibasilar patchy densities could be atelectasis or infiltrate. 4. Mosaic attenuation which can be seen with small airway disease. 5. Enlarged precarinal and subcarinal adenopathy. Jai Queen MD Head CT 03/15/17 0000 Signed Impressions: Service Date/Time: Wednesday, March 15, 2017 07:47 - CONCLUSION: No acute intracranial disease. Jai Queen MD Abdomen/Pelvis CT 03/15/17 0000 Signed Impressions: Service Date/Time: Wednesday, March 15, 2017 07:51 - CONCLUSION: 1. Bilateral hydronephrosis with extensive stranding in the perinephric regions greater on the left. 2. Mild circumferential wall thickening within the bladder with mild distention. 3. Postsurgical changes rectosigmoid junction. 4. Small fat containing abdominal wall hernias. Jai Queen MD Objective Remarks GENERAL: Elderly female, laying in bed in mild respiratory acute distress SKIN: Warm and dry. HEAD: Atraumatic. Normocephalic. EYES: Pupils equal and round. No scleral icterus. No injection or drainage. ENT: No nasal bleeding or discharge. Mucous membranes pink and moist. NECK: Trachea midline. Airway widely patent. CARDIOVASCULAR: Irregularly irregular rhythm. No JVD. RESPIRATORY: Breath sounds equal bilaterally. Few scattered rhonchi bilaterally. Rate 16, comfortable. GASTROINTESTINAL: Abdomen soft, protuberant non-tender, nondistended. No guarding. MUSCULOSKELETAL: Extremities without clubbing, cyanosis. Bilateral trace edema NEUROLOGICAL: Awake and alert. Following commands. Moving all 4 extremities. Conversant. Procedures 03/16- Renogram cancelled . Renal US performed. 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 Follow neuro status. Start aspirin 162 mg daily 03/15 CT brain-no intracranial abnormality Effexor placed on hold Respiratory: Acute Hypoxemic respiratory failure Pulmonary hypertension Carinal adenopathy Extubated on 03/25 following C Pap trial. Tolerating nasal cannula Bronchodilators every 6 hours scheduled and every [address] angiogram -pulmonary hypertension, no PE, enlarged precarinal and subcarinal lymphadenopathy 03/17- CXR -consolidations B/L lobes worsened - 03/29. New right lung PE. Increased O2 requirements. - Start high flow NC. Cardiovascular: A. fib RVR Hypertension Patient arrived on Cardizem infusion-heart rate 130's, discontinue for MAP less than 60. Patient's home med amiodarone 200 mg daily increased to 400 mg twice a day. Labetalol when necessary for hypertension. Off pressors currently. Last echo 01/2015- ejection fraction 55-60%. No RWMA. PAP 35 mmHg, TV mild regurg ,MV mild regurg ECHO 03/16-EF 55- 60%. No RWMA, severe mitral valve annular calcification. Moderate mitral stenosis. Trace to mild MR, moderate TR, PAS P 55.2, trivial pulmonary valve regurgitation EPS- Dr. Lubin consulted. Discussed with Dr. Lubin on 03/21, plan to transition to by mouth Cardizem. Patient previously has had GI bleed on anticoagulation hence we'll hold off on any anticoagulation currently. Currently off Cardizem drip for rate control, remains on by mouth Cardizem. Dr. Lubin agreeable with starting aspirin 162 mg by mouth daily. Continue diuresis Renal: Bilateral hydronephrosis-resolved Pyelonephrosis Acute kidney injury most likely secondary to septic shock Elevated creatinine Hypernatremia Insert and maintain Gallo catheter 03/14-CT of the abdomen and pelvis-bilateral hydronephrosis, pyelonephrosis, perinephric stranding 03/16 renal ultrasound-no hydronephrosis KVO IV fluids. On Bumex 1 mg IV daily to mobilize fluid -- Strict I/Os, monitor and replete electrolytes, follow BUN/creatinine. Hypernatremia improved with free water which is stopped. FEN/GI: History of colon cancer status post chemotherapy Abdominal hernia Advance by mouth diet as tolerated Bowel regimen Heme/ID: Septic shock Community-acquired multilobar pneumonia Lactic acidemia Bandemia-resolved Blood cultures Klebsiella Urine culture Klebsiella Follow-up sputum culture Streptococcal and legionella antigens negative ID consulted - Dr. Hansen On antibiotics per ID Heme- Onc consulted regarding carinal adenopathy lymphadenopathy, patient is S/ P completion of chemotherapy 06/2016 Endocrine: Diabetes mellitus Hypothyroidism High-dose insulin medication regimen, Levemir 15 units subcutaneously twice a day -hold for anticipated extubation as tube feeds will be held until tolerating by mouth. Continue Levothyroxine 50 mcgs/day Obtain thyroid panel Glucose monitoring per ICU protocol -- SSI Prophylaxis: GI Prophylaxis famotidine BID DVT Prophylaxis -- SCDs Heparin 5000u Q8H Lines: Port right chest, peripheral IVs 2, left radial A-line Dispo: Overall impression: Much improved respiratory pattern after diuresis. Nate Santiago MD Mar 31, 2017 17:10
[2017-04-01] VITALS (15 sets, daily range): BP systolic 105–145; BP diastolic 56–77; PULSE 70–96; RESP 24–30; TEMP 97–98.8; O2SAT 95–98
[2017-04-01 03:47] LABS: AUTOMATED NEUTROPHIL # 6.7 TH/MM3 (1.8-7.7); BASOPHIL % 0.6 % (0.0-2.0); EOSINOPHIL # 0.1 TH/MM3 (0-0.4); EOSINOPHIL % 0.8 % (0.0-4.0); HEMATOCRIT 26.2 % (35.0-46.0); HEMO FLAGS DIFF FINAL; LYMPH % 9.5 % (9.0-44.0); LYMPHOCYTE # 0.8 TH/MM3 (1.0-4.8); MEAN CELL VOLUME 90.2 FL (80.0-100.0); MEAN CORPUSCULAR HEMOGLOBIN 29.5 PG (27.0-34.0); MEAN CORPUSCULAR HGB CONC 32.8 % (32.0-36.0); MONO % 8.1 % (0.0-8.0); PLATELET COUNT 254 TH/MM3 (150-450); RED BLOOD COUNT 2.91 MIL/MM3 (4.00-5.30); RED CELL DISTRIBUTION WIDTH 14.9 % (11.6-17.2); WHITE BLOOD COUNT 8.2 TH/MM3 (4.0-11.0)
[2017-04-01] MEDS: CHLORHEXIDINE GLUCONATE 2 % 1 PACK (2 CLOTHS) TOP SCH (04:00)
[2017-04-01 04:10] LABS: ALT (GPT) 20 U/L (10-53); ANION GAP 7 MEQ/L (5-15); AST (GOT) 14 U/L (15-37); BICARBONATE 29.2 MEQ/L (21.0-32.0); BLOOD UREA NITROGEN 9 MG/DL (7-18); CHLORIDE 102 MEQ/L (98-107); GLOMERULAR FILTRATION RATE 61 ML/MIN (>89); MAGNESIUM 1.8 MG/DL (1.5-2.5); POTASSIUM 3.6 MEQ/L (3.5-5.1); SODIUM (NA) 138 MEQ/L (136-145)
[2017-04-01 04:12] LABS: ALKALINE PHOSPHATASE 137 U/L (45-117); TOTAL BILIRUBIN ADULT 0.5 MG/DL (0.2-1.0)
[2017-04-01] MEDS: DILTIAZEM HCL 60 MG TAB PO SCH ×4 (05:24→22:50)
[2017-04-01] MEDS: LEVOTHYROXINE SODIUM 50 MCG TAB PO SCH (05:24)
[2017-04-01] MEDS: INSULIN ASPART SUPPLEMENTAL SCALE SQ SCH ×4 (08:00→20:38)
[2017-04-01] MEDS: AMIODARONE 200 MG TAB PO SCH ×2 (08:11→20:36)
[2017-04-01] MEDS: BUMETANIDE INJ 1 MG/4 ML VIAL IV PUSH SCH ×2 (08:11→20:37)
[2017-04-01] MEDS: ASPIRIN EC 81 MG TABEC PO SCH (08:12)
[2017-04-01] MEDS: FAMOTIDINE 20 MG TAB PO SCH ×2 (08:12→20:36)
[2017-04-01] MEDS: PRAVASTATIN SOD 40 MG TAB PO SCH (08:13)
[2017-04-01] MEDS: FLUoxetine HCL LIQUID 20 MG/5 ML CUP PO SCH (08:13)
[2017-04-01] MEDS ORDERED: NOVOLOGP2 SQ (08:49)
[2017-04-01] MEDS: DOCUSATE SODIUM 50 MG/SENNA 8.6 MG TAB PO SCH ×2 (09:00→20:36)
[2017-04-01] MEDS: INSULIN DETEMIR 100 UNITS/ML VIAL SQ SCH ×2 (09:00→20:37)
[2017-04-01] MEDS: ACETAMINOPHEN 325 MG TAB PO PRN (09:37)
[2017-04-01] MEDS: SODIUM CHLORIDE 0.9% FLUSH 10 ML FLUSH IV FLUSH SCH ×2 (10:52→20:37)
--- NOTE | 2017-04-01 10:54 | HHI.FPPN ---
Subjective Remarks Ms Marroquin continues to show improvement. her was in the room and is happy she is resting more comfortably today. She has no abdominal pain after having bowel movements but is still incontinent of bowels and urine. She is not delirious today. No other complaints. no pain or subjective SOB. Objective Vitals Vital Signs Date Time Temp Pulse Resp B/P (MAP) Pulse Ox O2 Delivery O2 Flow Rate FiO2 04/01/17 10:00 86 04/01/17 08:00 82 04/01/17 08:00 98.8 82 26 145/63 (90) 95 04/01/17 07:00 96 Nasal Cannula 25.00 50 04/01/17 06:00 78 04/01/17 04:00 98.3 80 30 126/60 (82) 95 04/01/17 04:00 72 04/01/17 02:00 72 04/01/17 00:50 96 High Flow Nasal Cannula 25.00 50 04/01/17 00:00 98.0 96 28 105/56 (72) 97 04/01/17 00:00 96 03/31/17 22:00 81 03/31/17 20:00 81 03/31/17 20:00 97.8 81 30 109/59 (76) 96 03/31/17 19:00 96 Nasal Cannula 25.00 50 03/31/17 18:00 94 03/31/17 16:00 87 03/31/17 16:00 99.5 87 15 124/61 (82) 96 03/31/17 14:00 86 03/31/17 12:00 98.5 93 28 154/73 (100) 92 03/31/17 12:00 98 I/O 03/31/17 03/31/17 03/31/17 04/01/17 04/01/17 04/01/17 07:00 15:00 23:00 07:00 15:00 23:00 Intake Total 1200 ml 1000 ml 480 ml Output Total 2050 ml 2750 ml 1650 ml Balance -850 ml -1750 ml -1170 ml Intake Oral 1200 ml 1000 ml 480 ml Output Urine Total 2050 ml 2750 ml 1650 ml # Bowel Movements 1 5 1 Result Diagram: 04/01/17 0325 04/01/17 0325 Objective Remarks GENERAL: Lying in bed, nasal canula, not accessory muscles, alert and not delirious today. SKIN: No rashes or lesions HEENT; Normocephalic, no conjunctivitis NECK: Supple, trachea midline. No JVD or lymphadenopathy. CARDIOVASCULAR: Irregularly irregular rate and rhythm with systolic murmur controlled rste RESPIRATORY: no accessory muscle use,clear, on high flow oxygen GASTROINTESTINAL: Abdomen soft, mildly tender in middle quadrant, Bowel sounds present. No rebound or guarding. MUSCULOSKELETAL: No edema NEURO: Answering simple questions, awake and alert and cooperative. sleeping when I entered the room Date of Insertion: Mar 15, 2017 A/P Assessment and Plan 71 year old female with a PMH significant for colon cancer s/p chemotherapy, atrial fibrillation on Eliquis, HTN, DM type 2, and MDD who presented to the ED with abdominal pain, nausea and vomiting and was found to have severe sepsis secondary to PNA and pyelonephritis in addition to atrial fibrillation with RVR. She rapidly decompensated into respiratory failure and was intubated on . Patient then improved and was extubated and moved to the [facility]. On 03/29, there was acutely worsened respiratory status, found to have PE on right. Transferred back to [facility] on therapeutic Lovenox. Improved today, with diuresis and anticoagulation Discharge Planning she is very weak and debilitated. Should be able to ultimately go to [place] Problem List: (1) Pulmonary emboli ICD Codes: I26.99 - Other pulmonary embolism without acute cor pulmonale Status: Acute Plan: on therapeutic dose lovenox. was on sq heparin and refused a dose right before getting PE : Acute Hypoxemic respiratory failure originally with her sepsis Pulmonary hypertension Carinal adenopathy 03/15 Patient intubated emergently Duonebs Q6H scheduled and Q2H when necessary Chest x-ray 03/29 - worsening aeration CTA on 03/28 - small volume PE on right, on therapeutic Lovenox History of pneumonia, possibly redeveloping pneumonia, currently not on antibiotics Currently diuresed with Bumex 1mg IV daily, monitor I's and O's Pulmonary HTN not present on last echo in 2014, 03/16 Echo shows EF 55-60%, severe mitral annular calcification with moderate mitral valve stenosis, mildly dilated right atrium, mild to mod aortic valve stenosis, pulmonary arterial pressure 55.2 Breathing on high flow nasal canula Pulmonary embolism on right, small volume ABG with respiratory/metabolic alkalosis with hyperventilation from PE improving with diuresis and anticoagulation (2) Atrial fibrillation with rapid ventricular response ICD Codes: I48.91 - Atrial fibrillation with rapid ventricular response Status: Resolved Plan: Amiodarone 400mg PO BID. labetalol when necessary for hypertension. Cardizem drip restarted for afib with RVR, rate was in 130-140's. Now down to 80s Last echo 02/05- ejection fraction 55-60%. No RWMA. APA 35 mmHg, TV mild regurg, MV mild regurg 03/16 Echo results as above EPS- Dr. Lubin consulted, has signed off (3) Diabetes mellitus, type II ICD Codes: E11.9 - Type 2 diabetes mellitus Status: Chronic Plan: Diabetes mellitus mid-dose SSI ac and hs Long-acting Levemir at 5 units twice a day, will monitor for hypoglycemia (4) Hypertension ICD Codes: I10 - Essential (primary) hypertension Status: Chronic Plan: on Cardizem (5) Hypothyroidism ICD Codes: E03.9 - Hypothyroidism Status: Acute Plan: Continue Levothyroxine 50 mcgs/day (6) Nutrition, metabolism, and development symptoms ICD Codes: R63.8 - Symptoms concerning nutrition, metabolism, and development Status: Acute Plan: History of colon cancer status post chemotherapy and colectomy Abdominal hernia Diabetic Diet Prophylaxis: GI Prophylaxis with famotidine 10 mg BID DVT Prophylaxis: currently therapeutic Lovenox (7) Sepsis due to Gram-negative organism with septic shock ICD Codes: A41.50 - Gram-negative sepsis, unspecified; R65.21 - Severe sepsis with septic shock Status: Resolved Plan: Renal: Bilateral hydronephrosis from pyelo, now resolved Pyelonephrosis Gallo catheter re-inserted on 03/29 for critical state, diuresis, accurate I's and O's, poor mobility, will need removal. explained to her it can increase risk of infection. he wishes her to keep it a little longer as she is able to rest and not get up every hour to be changed 03/14-CT of the abdomen and pelvis-bilateral hydronephrosis, pyelonephrosis, perinephric stranding -- Strict I/Os Urology consulted, has signed off- 03/16 renal US shows resolution of hydronephrosis, urinary bladder decompressed Nephrology consulted, recommendations appreciated Creatinine stable Heme/ID: Septic Shock due to gram negative carmela on admission, better now Community-acquired multilobar pneumonia Pyelonephritis Lactic acidemia Bandemia 03/15 Blood cultures growing Klebsiella pneumoniae 03/15 urine culture growing Klebsiella pneumonia 03/16 sputum culture: No growth to date 2 days legionella and streptococcus antigens negative ID consulted - Dr. Hansen, treat with Levaquin, started 03/25 (dosed every other day). (vanc and cefepime have been discontinued) 03/19: Urine culture: No growth to date 2 Heme- Onc consulted regarding carinal adenopathy lymphadenopathy, patient is S/ P completion of chemotherapy 09/2016. Repeat CT chest in 1-2 months to evaluate mediastinal lymph nodes as outpatient Trend lactate level 6.4->4.2->4.9->3.0->1.5->2.2->2.3 (8) Delirium ICD Codes: R41.0 - Disorientation, unspecified Status: Resolved Plan: AMS-toxic encephalopathy secondary to sepsis originally History of TIA x 2 Major Depressive Disorder 03/15 CT brain-no intracranial abnormality Neurology consulted- Dr. Huff Fluoxetine 20 mg daily delirious with PE now improved Problem Qualifiers (1) Pulmonary emboli: Qualified Codes: I26.99 - Other pulmonary embolism without acute cor pulmonale (2) Diabetes mellitus, type II: Qualified Codes: E11.9 - Type 2 diabetes mellitus without complications; Z79.4 - correction (current) use of insulin (3) Hypertension: Qualified Codes: I10 - Essential (primary) hypertension (4) Hypothyroidism: Qualified Codes: E03.9 - Hypothyroidism, unspecified Lydia Greenberg MD Apr 01, 2017 10:54
[2017-04-01] MEDS: ENOXAPARIN SODIUM 100 MG/ML SYRINGE SQ SCH ×2 (11:56→22:50)
--- NOTE | 2017-04-01 12:38 | HHI.IDPN ---
Subjective Subjective Remarks Patient is a 71-year-old female, admitted to the hospital for evaluation of abdominal pain, nausea and vomiting. She apparently has been complaining of left-sided abdominal pain goes down to the lower abdomen. She also started having nausea and vomiting. There was mention of some dysuria, urgency and frequency in the last 3-4 days. Patient also apparently has been having problem with shortness of breath over the last 3 weeks, and generalized weakness and easy fatigability. There was no mention of any fever or chills or sweats. On the morning of admission, the patient was noted to be confused, and was having more shortness of breath. There is no mention of any cough or congestion, or any complaint of any chest pain. Patient was brought into the hospital for further evaluation and treatment. Patient has had imaging studies done. CTA did not show any pulmonary embolism. CT of the abdomen and pelvis showing some mild bilateral hydronephrosis and some perinephric stranding. Her UA has pyuria. 2 blood cultures on admission are now reported as growing gram-negative carmela. Her WBC is normal. Creatinine is 1.32. Patient went into significant respiratory distress, and ended up getting intubated. She has received Zosyn, and vancomycin. Neurology has been consult. Infectious disease consultation requested to evaluate the patient with severe sepsis. Notes reviewed Doing well [place] ok Breathing is btter Good diuresis WBC improving Still very weak Antibiotics Levaquin [place] Past Medical History Reviewed Allergies: Coded Allergies: codeine (Unverified Allergy, Severe, Nausea/Vomiting, 03/15/17) Uncoded Allergies: METAL (Allergy, Intermediate, hives, 03/08/16) SURGICAL STEEL (Allergy, Intermediate, hives, 03/08/16) Objective . Vital Signs Date Time Temp Pulse Resp B/P (MAP) Pulse Ox O2 Delivery O2 Flow Rate FiO2 04/01/17 10:00 86 04/01/17 08:00 82 04/01/17 08:00 98.8 82 26 145/63 (90) 95 04/01/17 07:00 96 Nasal Cannula 25.00 50 04/01/17 06:00 78 04/01/17 04:00 98.3 80 30 126/60 (82) 95 04/01/17 04:00 72 04/01/17 02:00 72 04/01/17 00:50 96 High Flow Nasal Cannula 25.00 50 10/9/17 00:00 98.0 96 28 105/56 (72) 97 04/01/17 00:00 96 03/31/17 22:00 81 03/31/17 20:00 81 03/31/17 20:00 97.8 81 30 109/59 (76) 96 03/31/17 19:00 96 Nasal Cannula 25.00 50 03/31/17 18:00 94 03/31/17 16:00 87 03/31/17 16:00 99.5 87 15 124/61 (82) 96 03/31/17 14:00 86 . Laboratory Tests Test 03/31/17 04:45 04/01/17 03:25 White Blood Count 9.5 TH/MM3 8.2 TH/MM3 Red Blood Count 2.81 MIL/MM3 2.91 MIL/MM3 Hemoglobin 8.5 GM/DL 8.6 GM/DL Hematocrit 25.3 % 26.2 % Mean Corpuscular Volume 90.0 FL 90.2 FL Mean Corpuscular Hemoglobin 30.3 PG 29.5 PG Mean Corpuscular Hemoglobin Concent 33.7 % 32.8 % Red Cell Distribution Width 15.0 % 14.9 % Platelet Count 223 TH/MM3 254 TH/MM3 Mean Platelet Volume 9.4 FL 8.6 FL Neutrophils (%) (Auto) 81.0 % 81.0 % Lymphocytes (%) (Auto) 8.9 % 9.5 % Monocytes (%) (Auto) 9.3 % 8.1 % Eosinophils (%) (Auto) 0.5 % 0.8 % Basophils (%) (Auto) 0.3 % 0.6 % Neutrophils # (Auto) 7.6 TH/MM3 6.7 TH/MM3 Lymphocytes # (Auto) 0.8 TH/MM3 0.8 TH/MM3 Monocytes # (Auto) 0.9 TH/MM3 0.7 TH/MM3 Eosinophils # (Auto) 0.1 TH/MM3 0.1 TH/MM3 Basophils # (Auto) 0.0 TH/MM3 0.0 TH/MM3 CBC Comment DIFF FINAL DIFF FINAL Differential Comment Laboratory Tests Test 03/30/17 14:35 03/31/17 04:45 03/31/17 18:30 04/01/17 03:25 Potassium Level 3.8 MEQ/L 3.4 MEQ/L 3.8 MEQ/L 3.6 MEQ/L Magnesium Level 1.8 MG/DL 1.8 MG/DL 1.8 MG/DL Blood Urea Nitrogen 11 MG/DL 9 MG/DL Creatinine 0.84 MG/DL 0.91 MG/DL Random Glucose 120 MG/DL 196 MG/DL Total Protein 6.4 GM/DL 6.6 GM/DL Albumin 2.0 GM/DL 2.0 GM/DL Calcium Level 8.1 MG/DL 8.1 MG/DL Alkaline Phosphatase 137 U/L 137 U/L Aspartate Amino Transf (AST/SGOT) 21 U/L 14 U/L Alanine Aminotransferase (ALT/SGPT) 19 U/L 20 U/L Total Bilirubin 0.6 MG/DL 0.5 MG/DL Sodium Level 138 MEQ/L 138 MEQ/L Chloride Level 102 MEQ/L 102 MEQ/L Carbon Dioxide Level 28.7 MEQ/L 29.2 MEQ/L Anion Gap 7 MEQ/L 7 MEQ/L Estimat Glomerular Filtration Rate 67 ML/MIN 61 ML/MIN Imaging Chest X-Ray 03/29/17 0000 Signed Impressions: Service Date/Time: Wednesday, March 29, 2017 09:22 - CONCLUSION: Some interval worsening in aeration Jose Wright MD Head CT 03/28/17 0000 Signed Impressions: Service Date/Time: March 15:57 - CONCLUSION: 1. The study is degraded by motion artifact. 2. No evidence of hemorrhage or mass effect. Robe Menchaca MD CT Angiography 03/28/17 0000 Signed Impressions: Service Date/Time: March 21:35 - CONCLUSION: 1. Acute small volume pulmonary emboli on the right. 2. Bilateral pulmonary infiltrates , bibasilar atelectasis, and small bilateral pleural effusions. Antonio High Jr., MD Renal Ultrasound 03/16/17 0000 Signed Impressions: Service Date/Time: Thursday, March 16, 2017 11:27 - CONCLUSION: The hydronephrosis has resolved. Urinary bladder is decompressed.. Jose Flores MD Abdomen/Pelvis CT 03/15/17 0000 Signed Impressions: Service Date/Time: Wednesday, March 15, 2017 07:51 - CONCLUSION: 1. Bilateral hydronephrosis with extensive stranding in the perinephric regions greater on the left. 2. Mild circumferential wall thickening within the bladder with mild distention. 3. Postsurgical changes rectosigmoid junction. 4. Small fat containing abdominal wall hernias. Jai Queen MD Chest X-Ray 03/21/17 0000 Signed Impressions: Service Date/Time: February 09:45 - CONCLUSION: 1. Consolidation of the left lower lobe. 2. Diffuse chronic interstitial changes mildly improved compared to previous. 3. The ET tube is somewhat high approximately 7 cm above the angelica. Quincy Resendez MD Chest X-Ray 03/20/17 0600 Signed Impressions: Service Date/Time: Monday, March 20, 2017 04:57 - CONCLUSION: 1. Endotracheal tube and nasogastric tube in good position. Basilar airspace disease increased from March 18. Samuel Lin MD Chest X-Ray 03/18/17 0600 Signed Impressions: Service Date/Time: Saturday, March 18, 2017 03:45 - CONCLUSION: 1. Apparatus in good position. Relatively stable basilar airspace disease. Samuel Lin MD Chest X-Ray 03/17/17 0000 Signed Impressions: Service Date/Time: Friday, March 17, 2017 06:22 - CONCLUSION: Persistent infiltrates consolidation left lower lung and patchy infiltrates in the central right lung. Antonio Voss MD Physical Exam GENERAL: Awake and alert, NAD SKIN: Warm and dry. No generalized rash EYES: [place] conjunctiva. No petechia or hemorrhage. Pupils equal, round and reactive to light. No scleral icterus. No injection or drainage. EARS, NOSE AND THROAT: Nose without bleeding or purulent nasal discharge. Moist oral mucosa NECK: Trachea midline. Supple and no meningeal signs CARDIOVASCULAR: Irregular rate and rhythm. No murmurs, rubs or gallops heard RESPIRATORY: Coarse breath sounds. Decreased at the bases. ABDOMEN: Distended, not tender, not distended. Bowel sounds present and hypoactive. No guarding. EXTREMITIES: No clubbing, cyanosis. Edema both hands and feet. Well perfused and warm. NEUROLOGICAL: Grossly non-focal PSYCHIATRIC: Cooperative LINE: No evidence of infection - port R upper chest Assessment & Plan Remarks IMPRESSION Severe sepsis, Klebsiella urosepsis, - off pressors - has pyelonephritis (has perinephric stranding on CT and mild hydro, no stone seen, no colitis on CT, has complaints) Respiratory failure, bilateral infiltrates, ?PNA - prob multifactorial: Fluid, inflammatory, ?PNA - sputum C/S negative Known Colon CA, with (+) LN, undergoing chemo - S/P sigmoid colectomy, low anterior resection Renal insufficiency due to sepsis Atrial fib, chronic, previous ablation done and MS Leukocytosis, up again, likely reactive Recurrent fevers, ?new PNA - temps better RECOMMENDATION Continue Levaquin - end date ordered in [employer] [employer] She is clinically doing well from ID standpoint D/W Dr Greenberg I will be available prn Please reconsult if with any new ID issue or question Rosaura Hansen MD Apr 01, 2017 12:38
--- NOTE | 2017-04-01 18:20 | HHI.CCPN ---
Subjective Remarks/Hospital Course This is a 71 year old female with a PMH significant for colon cancer s/p chemotherapy, atrial fibrillation previously on Eliquis discontinued for GI bleeding, HTN, DM type 2, and MDD who presented to the ED with abdominal pain, nausea and vomiting.The patient stated that she had pain in her left side this morning that radiated to her lower abdomen and caused her to have nausea and vomiting. She states that she has been short of breath for the past 3 weeks and progressively more fatigued. Her states that she has been becoming progressively weaker and sleeping excessively at times. At 3AM this morning, he noticed that she was trying to talk but "wasn't making any sense." He states that she has been so short of breath that she has been having difficulty finishing sentences without becoming short of breath. She notes dysuria, urinary urgency and frequency for the past 3-4 days. Imaging studies and laboratory studies were performed. Notably CTA of the chest reveal pulmonary hypertension and carinal lymphadenopathy. CT abdomen and pelvis revealed bilateral hydronephrosis and pyelonephrosis with perinephric stranding. Cultures were sent, the patient was noted to have bacteremia notably gram- negative rods. The patient was in A. fib RVR in the ED the patient received Cardizem bolus and was placed on a Cardizem infusion and transferred to ICU. Upon admission to ICU the patient became progressively short of breath with escalating alternation in mental status critical care medicine was consulted. The patient's heart rate at that time was in the 130s systolic pressure 140s and O2 sat high 80s. Brief discussion with purpose of emergent intubation. Subjective: 03/16: Overnight the patient continued to have hemodynamic instability, now septic shock. Patient continues in A. fib with HR low 100's. Patient on maximum doses currently of norepinephrine and vasopressin infusions. [place]- cortisone added to medication regimen, Sodium bicarbonate infusion initiated. Imaging revealed hydronephrosis and pyelonephrosis patient seen by Dr. Larose, urine output now decreased to 150cc total over the last 12hrs, with continued elevation in creatinine. Planned renogram this a.m., to rule out obstruction with possible placement of nephrostomy tubes, and nephrology also consulted. Patient was seen by Dr. Candelario, carinal /hilar lymphadenopathy most likely not associated with carcinoma, plan for outpatient scan in 2-3 months. FiO2 was decreased to 60% overnight, ECHO pending her evaluation of cardiac status and pulmonary hypertension. 03/17: Overnight vasopressors weaned significantly, currently on lower doses. The patient continues on sodium bicarbonate infusion. Renogram canceled secondary to hemodynamic instability yesterday renal ultrasound performed revealed no hydronephrosis, creatinine continues to be elevated most likely secondary to acute kidney injury secondary to hypotension and septic shock. Nephrology consult pending. Echo revealed severe mitral valve stenosis and calcification with pulmonary hypertension and PASP 55.2 03/18: Remains sedated, orally intubated on mech vent. Off levophed. 03/19: Remains sedated, orally intubated on mechanical ventilation. Off Levophed. Blood pressure actually running high. Failed C Pap trials 03/20: Remains sedated, orally intubated on mechanical ventilation. Currently in A. fib. Off pressors. 03/21: Remains sedated, orally intubated on mechanical ventilation. In A. fib with RVR. Seen by Dr. Lubin on 03/21. Failed C Pap trials yesterday. 03/22: Remains sedated, orally intubated on mechanical ventilation. Remains in atrial fibrillation. Currently rate controlled with Cardizem drip. 03/23: Remains sedated, orally intubated on mechanical ventilation. On Cardizem drip for rate control for A. fib. 03/24: Remains drowsy off sedation, orally intubated on mechanical ventilation. Cardizem drip Her out for A. fib rate control. 03/25: Drowsy, easily arousable, squeezes my hand with her hands as well as wiggles her toes on command. Off Cardizem drip currently. Remains in A. fib rate controlled with by mouth Cardizem and amiodarone. 03/26: Seen earlier this morning. Patient extubated yesterday following C Pap trial. Currently on nasal cannula. 03/29: Worsening SOB and labored. Increased FiO2 requirements. Confused. Conversational dyspnea. New right lung PE; RV dimensions not enlarged. 03/30: Continued labored breathing. Switch to high flow O2 delivery. Would add an additional diuretic dose after potassium is replaced. 03/31: Breathing much improved, comfortable while laying supine. 04/01: Agree with FM Service; I think she is breathing more comfortably. She is still a bit ahead on fluid. I will increase her bumex to q12h until her bun rises to > 20. Objective Vital Signs Date Time Temp Pulse Resp B/P (MAP) Pulse Ox O2 Delivery O2 Flow Rate FiO2 04/01/17 16:00 70 04/01/17 12:00 97.0 28 139/67 (91) 95 04/01/17 07:00 Nasal Cannula 25.00 50 Intake and Output 04/01/17 04/01/17 04/02/17 08:00 16:00 00:00 Intake Total 480 ml Output Total 1650 ml Balance -1170 ml Result Diagram: 04/01/17 0325 04/01/17 0325 Imaging Last 48 hours Impressions Chest X-Ray 03/20/17 0600 Signed Impressions: Service Date/Time: Monday, March 20, 2017 04:57 - CONCLUSION: 1. Endotracheal tube and nasogastric tube in good position. Basilar airspace disease increased from March 18. Samuel Lin MD Last Impressions Chest X-Ray 03/17/17 0000 Signed Impressions: Service Date/Time: Friday, March 17, 2017 06:22 - CONCLUSION: Persistent infiltrates consolidation left lower lung and patchy infiltrates in the central right lung. Antonio Voss MD Renal Ultrasound 03/16/17 0000 Signed Impressions: Service Date/Time: Thursday, March 16, 2017 11:27 - CONCLUSION: The hydronephrosis has resolved. Urinary bladder is decompressed.. Jose Flores MD CT Angiography 03/15/17 0520 Signed Impressions: Service Date/Time: Wednesday, March 15, 2017 07:46 - CONCLUSION: 1. No evidence for pulmonary embolism. 2. Cardiomegaly with enlargement of pulmonary arteries likely from pulmonary arterial hypertension. 3. Bibasilar patchy densities could be atelectasis or infiltrate. 4. Mosaic attenuation which can be seen with small airway disease. 5. Enlarged precarinal and subcarinal adenopathy. Jai Queen MD Head CT 03/15/17 0000 Signed Impressions: Service Date/Time: Wednesday, March 15, 2017 07:47 - CONCLUSION: No acute intracranial disease. Jai Queen MD Abdomen/Pelvis CT 03/15/17 0000 Signed Impressions: Service Date/Time: Wednesday, March 15, 2017 07:51 - CONCLUSION: 1. Bilateral hydronephrosis with extensive stranding in the perinephric regions greater on the left. 2. Mild circumferential wall thickening within the bladder with mild distention. 3. Postsurgical changes rectosigmoid junction. 4. Small fat containing abdominal wall hernias. Jai Queen MD Last Impressions Chest X-Ray 03/16/17 0600 Signed Impressions: Service Date/Time: Thursday, March 16, 2017 04:58 - CONCLUSION: Persisting consolidation left mid and lower lung and improving infiltrates in the lower right lung. Antonio Voss MD CT Angiography 03/15/17519 Signed Impressions: Service Date/Time: Wednesday, March 15, 2017 07:46 - CONCLUSION: 1. No evidence for pulmonary embolism. 2. Cardiomegaly with enlargement of pulmonary arteries likely from pulmonary arterial hypertension. 3. Bibasilar patchy densities could be atelectasis or infiltrate. 4. Mosaic attenuation which can be seen with small airway disease. 5. Enlarged precarinal and subcarinal adenopathy. Jai Queen MD Head CT 03/15/17 0000 Signed Impressions: Service Date/Time: Wednesday, March 15, 2017 07:47 - CONCLUSION: No acute intracranial disease. Jai Queen MD Abdomen/Pelvis CT 03/15/17 0000 Signed Impressions: Service Date/Time: Wednesday, March 15, 2017 07:51 - CONCLUSION: 1. Bilateral hydronephrosis with extensive stranding in the perinephric regions greater on the left. 2. Mild circumferential wall thickening within the bladder with mild distention. 3. Postsurgical changes rectosigmoid junction. 4. Small fat containing abdominal wall hernias. Jai Queen MD Last Impressions Chest X-Ray 03/15/17 0520 Signed Impressions: Service Date/Time: Wednesday, March 15, 2017 05:41 - CONCLUSION: Opacity in the perihilar region bilaterally suggesting either central infiltrates or adenopathy. Antonio Voss MD CT Angiography 03/15/17 05 Signed Impressions: Service Date/Time: Wednesday, March 15, 2017 07:46 - CONCLUSION: 1. No evidence for pulmonary embolism. 2. Cardiomegaly with enlargement of pulmonary arteries likely from pulmonary arterial hypertension. 3. Bibasilar patchy densities could be atelectasis or infiltrate. 4. Mosaic attenuation which can be seen with small airway disease. 5. Enlarged precarinal and subcarinal adenopathy. Jai Queen MD Head CT 03/15/17 0000 Signed Impressions: Service Date/Time: Wednesday, March 15, 2017 07:47 - CONCLUSION: No acute intracranial disease. Jai Queen MD Abdomen/Pelvis CT 03/15/17 0000 Signed Impressions: Service Date/Time: Wednesday, March 15, 2017 07:51 - CONCLUSION: 1. Bilateral hydronephrosis with extensive stranding in the perinephric regions greater on the left. 2. Mild circumferential wall thickening within the bladder with mild distention. 3. Postsurgical changes rectosigmoid junction. 4. Small fat containing abdominal wall hernias. Jai Queen MD Objective Remarks GENERAL: Elderly female, breathing comfortably SKIN: Warm and dry. HEAD: Atraumatic. Normocephalic. EYES: Pupils equal and round. ENT: No nasal bleeding or discharge. Mucous membranes pink and moist. NECK: Trachea midline. Airway widely patent. CARDIOVASCULAR: Irregularly irregular rhythm. No JVD. RESPIRATORY: Breath sounds equal bilaterally. Few scattered rhonchi bilaterally. Rate 16, comfortable. GASTROINTESTINAL: Abdomen soft, non-tender, nondistended. No guarding. BS active. MUSCULOSKELETAL: Extremities without clubbing, cyanosis. Bilateral trace edema NEUROLOGICAL: Awake and alert. Following commands. Moving all 4 extremities. Conversant. Procedures 03/16- Renogram cancelled . Renal US performed. 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 Follow neuro status. Start aspirin 162 mg daily 03/15 CT brain-no intracranial abnormality Effexor placed on hold Respiratory: Acute Hypoxemic respiratory failure Pulmonary hypertension Carinal adenopathy Extubated on 03/25 following C Pap trial. Tolerating nasal cannula Bronchodilators every 6 hours scheduled and every [address] angiogram -pulmonary hypertension, no PE, enlarged precarinal and subcarinal lymphadenopathy 03/17- CXR -consolidations B/L lobes worsened - 03/29. New right lung PE. Increased O2 requirements. - Start high flow NC. Cardiovascular: A. fib RVR Hypertension Patient arrived on Cardizem infusion-heart rate 130's, discontinue for MAP less than 60. Patient's home med amiodarone 200 mg daily increased to 400 mg twice a day. Labetalol when necessary for hypertension. Off pressors currently. Last echo 01/2015- ejection fraction 55-60%. No RWMA. PAP 35 mmHg, TV mild regurg ,MV mild regurg ECHO 03/16-EF 55- 60%. No RWMA, severe mitral valve annular calcification. Moderate mitral stenosis. Trace to mild MR, moderate TR, PAS P 55.2, trivial pulmonary valve regurgitation EPS- Dr. Lubin consulted. Discussed with Dr. Lubin on 03/21, plan to transition to by mouth Cardizem. Patient previously has had GI bleed on anticoagulation hence we'll hold off on any anticoagulation currently. Currently off Cardizem drip for rate control, remains on by mouth Cardizem. Dr. Lubin agreeable with starting aspirin 162 mg by mouth daily. Continue diuresis Renal: Bilateral hydronephrosis-resolved Pyelonephrosis Acute kidney injury most likely secondary to septic shock Elevated creatinine Hypernatremia Insert and maintain Gallo catheter 03/14-CT of the abdomen and pelvis-bilateral hydronephrosis, pyelonephrosis, perinephric stranding 03/16 renal ultrasound-no hydronephrosis KVO IV fluids. On Bumex 1 mg IV daily to mobilize fluid -- Strict I/Os, monitor and replete electrolytes, follow BUN/creatinine. Hypernatremia improved with free water which is stopped. FEN/GI: History of colon cancer status post chemotherapy Abdominal hernia Advance by mouth diet as tolerated Bowel regimen Heme/ID: Septic shock Community-acquired multilobar pneumonia Lactic acidemia Bandemia-resolved Blood cultures Klebsiella Urine culture Klebsiella Follow-up sputum culture Streptococcal and legionella antigens negative ID consulted - Dr. Hansen On antibiotics per ID Heme- Onc consulted regarding carinal adenopathy lymphadenopathy, patient is S/ P completion of chemotherapy 06/2016 Endocrine: Diabetes mellitus Hypothyroidism High-dose insulin medication regimen, Levemir 15 units subcutaneously twice a day -hold for anticipated extubation as tube feeds will be held until tolerating by mouth. Continue Levothyroxine 50 mcgs/day Obtain thyroid panel Glucose monitoring per ICU protocol -- SSI Prophylaxis: GI Prophylaxis famotidine BID DVT Prophylaxis -- SCDs Heparin 5000u Q8H Lines: Port right chest, peripheral IVs 2, left radial A-line Dispo: Overall impression: Much improved respiratory pattern after diuresis. Continue diuresis. Nate Santiago MD Apr 01, 2017 18:20
[2017-04-02] VITALS (15 sets, daily range): BP systolic 130–169; BP diastolic 65–81; PULSE 78–94; RESP 20–28; TEMP 97.5–98.4; O2SAT 91–97
[2017-04-02] MEDS: CHLORHEXIDINE GLUCONATE 2 % 1 PACK (2 CLOTHS) TOP SCH (03:11)
[2017-04-02 04:28] LABS: MEAN CELL VOLUME 89.6 FL (80.0-100.0); MEAN CORPUSCULAR HEMOGLOBIN 29.6 PG (27.0-34.0); MEAN CORPUSCULAR HGB CONC 33.1 % (32.0-36.0); PLATELET COUNT 276 TH/MM3 (150-450); RED CELL DISTRIBUTION WIDTH 14.6 % (11.6-17.2); REVIEW FLAG FINAL; WHITE BLOOD COUNT 7.3 TH/MM3 (4.0-11.0)
[2017-04-02 04:45] LABS: ANION GAP 9 MEQ/L (5-15); AST (GOT) 19 U/L (15-37); BLOOD UREA NITROGEN 10 MG/DL (7-18); CHLORIDE 99 MEQ/L (98-107); GLOMERULAR FILTRATION RATE 66 ML/MIN (>89); POTASSIUM 3.5 MEQ/L (3.5-5.1); SODIUM (NA) 138 MEQ/L (136-145)
[2017-04-02 04:47] LABS: ALT (GPT) 16 U/L (10-53)
[2017-04-02 04:49] LABS: ALKALINE PHOSPHATASE 137 U/L (45-117); TOTAL BILIRUBIN ADULT 0.5 MG/DL (0.2-1.0)
[2017-04-02] MEDS: LEVOTHYROXINE SODIUM 50 MCG TAB PO SCH (05:13)
[2017-04-02] MEDS: DILTIAZEM HCL 60 MG TAB PO SCH ×3 (05:13→17:32)
[2017-04-02] MEDS: ICU - POTASSIUM CHLORIDE/AQUEOUS SOLN 40 MEQ/100 ML IVPB IV PRN (05:55)
[2017-04-02] MEDS: INSULIN ASPART SUPPLEMENTAL SCALE SQ SCH ×4 (08:00→20:43)
[2017-04-02] MEDS ORDERED: TEMAZEPAM 15 MG CAP PO PRN (08:30)
[2017-04-02] MEDS: INSULIN DETEMIR 100 UNITS/ML VIAL SQ SCH ×2 (09:00→20:43)
[2017-04-02] MEDS: LEVOFLOXACIN 750 MG TAB PO SCH (09:18)
[2017-04-02] MEDS: SODIUM CHLORIDE 0.9% FLUSH 10 ML FLUSH IV FLUSH SCH ×2 (09:18→20:44)
[2017-04-02] MEDS: BUMETANIDE INJ 1 MG/4 ML VIAL IV PUSH SCH ×2 (09:18→20:44)
[2017-04-02] MEDS: DOCUSATE SODIUM 50 MG/SENNA 8.6 MG TAB PO SCH ×2 (09:18→20:43)
[2017-04-02] MEDS: ASPIRIN EC 81 MG TABEC PO SCH (09:19)
[2017-04-02] MEDS: FAMOTIDINE 20 MG TAB PO SCH ×2 (09:19→20:43)
[2017-04-02] MEDS: FLUoxetine HCL LIQUID 20 MG/5 ML CUP PO SCH (09:19)
[2017-04-02] MEDS: AMIODARONE 200 MG TAB PO SCH ×2 (09:19→20:43)
[2017-04-02] MEDS: PRAVASTATIN SOD 40 MG TAB PO SCH (09:19)
--- NOTE | 2017-04-02 10:09 | HHI.FPPN ---
Subjective Remarks Patient seen and examined this morning. Temperature 97.5, pulse ranging between 80-82, respiratory rate 22, blood pressure 147/72, pulse ox 94 L on nasal cannula high flow. She is very upset this morning that she had not gotten much sleep overnight. Informed her that sometimes difficult to sleep in the ICU setting, that she does have a sleep aid on her medicine list that she has to ask for it. She says she last with a sleep aid this night. We discussed getting out of the ICU and transferring to regular floor room she is in agreement with this. She is also in agreement with removing the Gallo catheter. She admits to not doing much with physical therapy and will try to work harder to get out of the bed. Endorses: Tired, agitated, generalized deconditioning Denies: Fever, chills, nausea, vomiting, shortness of breath, chest pain, headache, abdominal pain, calf pain All other review of symptoms were negative (Sumit Flor MD, R3) Objective Vitals Vital Signs Date Time Temp Pulse Resp B/P (MAP) Pulse Ox O2 Delivery O2 Flow Rate FiO2 04/02/17 08:17 94 High Flow Nasal Cannula 20.00 40 04/02/17 07:00 92 Nasal Cannula 25.00 45 04/02/17 06:00 82 04/02/17 04:00 97.5 80 22 147/72 (97) 94 04/02/17 04:00 80 04/02/17 02:00 80 04/02/17 00:00 98.2 80 28 148/76 (100) 97 04/02/17 00:00 80 04/01/17 22:42 98 High Flow Nasal Cannula 20.00 45 04/01/17 22:00 74 04/01/17 20:00 74 04/01/17 20:00 98.0 74 25 139/68 (91) 96 04/01/17 19:00 95 Nasal Cannula 25.00 50 04/01/17 18:00 97.8 74 24 141/77 (98) 95 04/01/17 18:00 74 04/01/17 16:00 70 04/01/17 14:30 97 High Flow Nasal Cannula 20.00 45 04/01/17 14:00 72 04/01/17 12:00 97.0 84 28 139/67 (91) 95 04/01/17 12:00 84 I/O 04/01/17 04/01/17 04/01/17 04/02/17 04/02/17 04/02/17 07:00 15:00 23:00 07:00 15:00 23:00 Intake Total 480 ml 240 ml 720 ml Output Total 1650 ml 1625 ml 3600 ml Balance -1170 ml -1385 ml -2880 ml Intake Oral 480 ml 240 ml 720 ml Output Urine Total 1650 ml 1625 ml 3600 ml # Bowel Movements 1 3 2 (Sumit Flor MD, R3) Result Diagram: 04/02/17 0400 04/02/17 0400 Imaging Last Impressions Chest X-Ray 03/29/17 0000 Signed Impressions: Service Date/Time: Wednesday, March 29, 2017 09:22 - CONCLUSION: Some interval worsening in aeration Jose Wright MD Head CT 03/28/17 0000 Signed Impressions: Service Date/Time: March 15:57 - CONCLUSION: 1. The study is degraded by motion artifact. 2. No evidence of hemorrhage or mass effect. Robe Menchaca MD CT Angiography 03/28/17 0000 Signed Impressions: Service Date/Time: March 21:35 - CONCLUSION: 1. Acute small volume pulmonary emboli on the right. 2. Bilateral pulmonary infiltrates , bibasilar atelectasis, and small bilateral pleural effusions. Antonio High Jr., MD Renal Ultrasound 03/16/17 0000 Signed Impressions: Service Date/Time: Thursday, March 16, 2017 11:27 - CONCLUSION: The hydronephrosis has resolved. Urinary bladder is decompressed.. Jose Flores MD Abdomen/Pelvis CT 03/15/17 0000 Signed Impressions: Service Date/Time: Wednesday, March 15, 2017 07:51 - CONCLUSION: 1. Bilateral hydronephrosis with extensive stranding in the perinephric regions greater on the left. 2. Mild circumferential wall thickening within the bladder with mild distention. 3. Postsurgical changes rectosigmoid junction. 4. Small fat containing abdominal wall hernias. Jai Queen MD Objective Remarks GENERAL: Lying in bed, nasal canula, no accessory muscle use, awake alert and oriented SKIN: No rashes or lesions HEENT; Normocephalic, no conjunctivitis NECK: Supple, trachea midline. No JVD or lymphadenopathy. CARDIOVASCULAR: Irregularly irregular rate and rhythm with systolic murmur RESPIRATORY: no accessory muscle use,clear, on high flow oxygen GASTROINTESTINAL: Abdomen soft, mildly tender in middle quadrant, Bowel sounds present. No rebound or guarding. MUSCULOSKELETAL: No edema NEURO: Answering simple questions, awake and alert and cooperative. sleeping when I entered the room Medications and IVs Current Medications Medications (Trade) Dose Ordered Sig/Chiqui Route Start Time Stop Time Status Last Admin (Synthroid) 50 mcg DAILY@0600 PO 03/16/17 06:00 04/02/17 05:13 (Pravachol) 40 mg DAILY PO 03/16/17 09:00 04/02/17 09:19 (Ativan Inj) 1 mg Q4H PRN IV PUSH 03/15/17 14:00 03/31/17 12:15 (NS Flush) 2 ml UNSCH PRN IV FLUSH 03/15/17 14:30 (NS Flush) 2 ml BID IV FLUSH 03/15/17 21:00 04/02/17 09:18 (Zofran Inj) 4 mg Q6H PRN IV PUSH 03/15/17 14:30 (Duoneb Neb) 1 ampule Q2HR NEB PRN INH 03/15/17 14:30 03/19/17 22:26 (Chlorhexidine 2% Cloth) Taper DAILY@04 TOP 03/16/17 04:00 03/12/18 03:59 03/25/17 04:00 (Elsa-Colace) 1 tab BID PO 03/15/17 21:00 04/02/17 09:18 (Milk Of Magnesia Liq) 30 ml Q12H PRN PO 03/15/17 14:30 03/31/17 07:53 (Senokot) 17.2 mg Q12H PRN PO 03/15/17 14:30 (Dulcolax Supp) 10 mg DAILY PRN RECTAL 03/15/17 14:30 (D50w (Vial) Inj) 50 ml UNSCH PRN IV PUSH 03/15/17 15:15 (Glucagon Inj) 1 mg UNSCH PRN OTHER 03/15/17 15:15 (Cordarone) 400 mg BID PO 03/16/17 21:00 04/02/17 09:19 (Trandate Inj) 20 mg Q2H PRN IV 03/19/17 12:00 03/28/17 14:06 (PROzac LIQ) 20 mg DAILY PO 03/20/17 11:00 04/02/17 09:19 Diltiazem HCl 125 mg/Sodium Chloride 125 ml @ 5 mls/hr TITRATE PRN IV 03/21/17 07:45 03/23/17 20:51 (Cardizem) 60 mg Q6HR PO 03/22/17 18:00 04/02/17 05:13 (Levaquin) 750 mg Q48H PO 03/25/17 10:00 04/04/17 23:00 04/02/17 09:18 (Mag-Al Plus Susp Liq) 20 ml Q6H PRN PO 03/25/17 19:30 03/26/17 09:48 (Pepcid) 10 mg BID PO 03/26/17 21:00 04/02/17 09:19 (Tears Naturale Opth Soln) 1 drop TID PRN EACH EYE 03/26/17 09:45 (Lactulose Liq) 30 ml DAILY PRN NG 03/26/17 10:15 (Tylenol) 650 mg Q6H PRN PO 03/26/17 12:45 04/01/17 09:37 ([place] 5-325 Mg) 1 tab Q4H PRN PO 03/26/17 16:45 03/26/17 20:51 (Ecotrin Ec) 162 mg DAILY PO 03/27/17 09:00 04/02/17 09:19 Miscellaneous Information 1 Q361D XX 03/26/17 21:30 03/26/17 21:30 (Levemir Inj) 5 units Q12HR SQ 03/27/17 21:00 03/28/17 23:40 (NovoLOG SUPPLEMENTAL SCALE) 1 ACHS SLIDING SCALE SQ 03/27/17 12:00 04/01/17 20:38 (Lovenox Inj) 90 mg Q12H SQ 03/29/17 00:00 04/01/17 22:50 Miscellaneous Information D/C ICU ELECTROLYTE ORDERS... UNSCH PRN .XX 03/30/17 05:15 Miscellaneous Information ICU - CALL ORDERING PHYSIC... UNSCH PRN .XX 03/30/17 05:15 Potassium Chloride 100 ml @ 25 mls/hr UNSCH PRN IV 03/30/17 05:15 04/02/17 05:55 (K-Lyte Cl Eff) 50 meq UNSCH PRN PO 03/30/17 05:15 Potassium Chloride 100 ml @ 50 mls/hr UNSCH PRN IV 03/30/17 05:15 Magnesium Sulfate 4 gm/Sodium Chloride 108 ml @ 54 mls/hr UNSCH PRN IV 03/30/17 05:15 Magnesium Sulfate 2 gm/Sodium Chloride 104 ml @ 52 mls/hr UNSCH PRN IV 03/30/17 05:15 (Mag-Ox) 800 mg UNSCH PRN PO 03/30/17 05:15 Sodium Phosphate 30 mmol/Sodium Chloride 260 ml @ 43.333 mls/ hr UNSCH PRN IV 03/30/17 05:15 (K-Phos) 2,000 mg UNSCH PRN PO 03/30/17 05:15 Potassium Phosphate 30 mmol/ Sodium Chloride 260 ml @ 43.333 mls/ hr UNSCH PRN IV 03/30/17 05:15 (Xanax) 0.5 mg Q8H PRN PO 03/30/17 14:15 (Fleets Enema (Adult)) 133 ml UNSCH PRN RECTAL 03/31/17 09:30 (Bumex Inj) 1 mg Q12H IV PUSH 04/01/17 21:00 04/02/17 09:18 (Restoril) 15 mg HS PRN PO 04/02/17 08:30 (Xarelto) 15 mg BID PO 04/03/17 09:00 UNV (Sumit Flor MD, R3) Date of Insertion: Mar 15, 2017 (Sumit Flor MD, R3) A/P Assessment and Plan 71 year old female with a PMH significant for colon cancer s/p chemotherapy, atrial fibrillation on Eliquis, HTN, DM type 2, and MDD who presented to the ED with abdominal pain, nausea and vomiting and was found to have severe sepsis secondary to PNA and pyelonephritis in addition to atrial fibrillation with RVR. She rapidly decompensated into respiratory failure and was intubated on . Patient then improved and was extubated and moved to the [facility]. On 03/29, there was acutely worsened respiratory status, found to have PE on right. Transferred back to [facility] on therapeutic Lovenox. Improved today, with diuresis and anticoagulation Discharge Planning she is very weak and debilitated. 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 Case reviewed and discussed with the resident team. Agree with plan of care as discussed with me and documented in the resident note. when seen this am, she wanted to take a sleeping pill in the morning which I discouraged. I explained that she needed to get going on PT and OT to get stronger. She agreed to this. Also her catheter needs to be D/Edgardo as it is an infection risk (Lydia Greenberg MD) Problem List: (1) Pulmonary emboli ICD Codes: I26.99 - Other pulmonary embolism without acute cor pulmonale Status: Acute Plan: Continue therapeutic dose Lovenox. : Acute Hypoxemic respiratory failure originally with her sepsis Pulmonary hypertension Carinal adenopathy 03/15 Patient intubated emergently Duonebs Q6H scheduled and Q2H when necessary Chest x-ray 03/29 - worsening aeration CTA on 03/28 - small volume PE on right, on therapeutic Lovenox History of pneumonia, possibly redeveloping pneumonia, currently not on antibiotics Currently diuresed with Bumex 1mg IV BID, monitor I's and O's Pulmonary HTN not present on last echo in 03/16 Echo shows EF 55-60%, severe mitral annular calcification with moderate mitral valve stenosis, mildly dilated right atrium, mild to mod aortic valve stenosis, pulmonary arterial pressure 55.2 Breathing on high flow nasal canula Pulmonary embolism on right, small volume: Currently on therapeutic Lovenox with transition to Xarelto twice a day tomorrow morning 04/03/17 improving with diuresis and anticoagulation (2) Atrial fibrillation with rapid ventricular response ICD Codes: I48.91 - Atrial fibrillation with rapid ventricular response Status: Resolved Plan: Amiodarone 400mg PO BID. labetalol when necessary for hypertension. Cardizem drip restarted for afib with RVR, rate was in 130-140's. Now down to 80s Last echo 02/05- ejection fraction 55-60%. No RWMA. APA 35 mmHg, TV mild regurg, MV mild regurg 03/16 Echo results as above EPS- Dr. Lubin consulted, has signed off (3) Diabetes mellitus, type II ICD Codes: E11.9 - Type 2 diabetes mellitus Status: Chronic Plan: Diabetes mellitus mid-dose SSI ac and hs Long-acting Levemir at 5 units twice a day, will monitor for hypoglycemia (4) Hypertension ICD Codes: I10 - Essential (primary) hypertension Status: Chronic Plan: on Cardizem (5) Hypothyroidism ICD Codes: E03.9 - Hypothyroidism Status: Acute Plan: Continue Levothyroxine 50 mcgs/day (6) Nutrition, metabolism, and development symptoms ICD Codes: R63.8 - Symptoms concerning nutrition, metabolism, and development Status: Acute Plan: History of colon cancer status post chemotherapy and colectomy Abdominal hernia Diabetic Diet Prophylaxis: GI Prophylaxis with famotidine 10 mg BID DVT Prophylaxis: currently therapeutic Lovenox (7) Sepsis due to Gram-negative organism with septic shock ICD Codes: A41.50 - Gram-negative sepsis, unspecified; R65.21 - Severe sepsis with septic shock Status: Resolved Plan: Renal: Bilateral hydronephrosis from pyelo, now resolved Pyelonephrosis Gallo catheter re-inserted on 03/29 for critical state, diuresis, accurate I's and O's, poor mobility, will need removal. explained to her it can increase risk of infection. he wishes her to keep it a little longer as she is able to rest and not get up every hour to be changed 03/14-CT of the abdomen and pelvis-bilateral hydronephrosis, pyelonephrosis, perinephric stranding -- Strict I/Os Urology consulted, has signed off- 03/16 renal US shows resolution of hydronephrosis, urinary bladder decompressed Nephrology consulted, recommendations appreciated Creatinine stable Heme/ID: Septic Shock due to gram negative carmela on admission, better now Community-acquired multilobar pneumonia Pyelonephritis Lactic acidemia Bandemia 03/15 Blood cultures growing Klebsiella pneumoniae 03/15 urine culture growing Klebsiella pneumonia 03/16 sputum culture: No growth to date 2 days legionella and streptococcus antigens negative ID consulted - Dr. Hansen, treat with Levaquin, started 03/25 (dosed every other day). (vanc and cefepime have been discontinued) 03/19: Urine culture: No growth to date 2 Heme- Onc consulted regarding carinal adenopathy lymphadenopathy, patient is S/ P completion of chemotherapy 09/2016. Repeat CT chest in 1-2 months to evaluate mediastinal lymph nodes as outpatient Trend lactate level 6.4->4.2->4.9->3.0->1.5->2.2->2.3 (8) Delirium ICD Codes: R41.0 - Disorientation, unspecified Status: Resolved Plan: AMS-toxic encephalopathy secondary to sepsis originally History of TIA x 2 Major Depressive Disorder 03/15 CT brain-no intracranial abnormality Neurology consulted- Dr. 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
[2017-04-02] MEDS: ENOXAPARIN SODIUM 100 MG/ML SYRINGE SQ SCH (13:09)
--- NOTE | 2017-04-02 15:39 | HHI.CCPN ---
Subjective Remarks/Hospital Course This is a 71 year old female with a PMH significant for colon cancer s/p chemotherapy, atrial fibrillation previously on Eliquis discontinued for GI bleeding, HTN, DM type 2, and MDD who presented to the ED with abdominal pain, nausea and vomiting.The patient stated that she had pain in her left side this morning that radiated to her lower abdomen and caused her to have nausea and vomiting. She states that she has been short of breath for the past 3 weeks and progressively more fatigued. Her states that she has been becoming progressively weaker and sleeping excessively at times. At 3AM this morning, he noticed that she was trying to talk but "wasn't making any sense." He states that she has been so short of breath that she has been having difficulty finishing sentences without becoming short of breath. She notes dysuria, urinary urgency and frequency for the past 3-4 days. Imaging studies and laboratory studies were performed. Notably CTA of the chest reveal pulmonary hypertension and carinal lymphadenopathy. CT abdomen and pelvis revealed bilateral hydronephrosis and pyelonephrosis with perinephric stranding. Cultures were sent, the patient was noted to have bacteremia notably gram- negative rods. The patient was in A. fib RVR in the ED the patient received Cardizem bolus and was placed on a Cardizem infusion and transferred to ICU. Upon admission to ICU the patient became progressively short of breath with escalating alternation in mental status critical care medicine was consulted. The patient's heart rate at that time was in the 130s systolic pressure 140s and O2 sat high 80s. Brief discussion with purpose of emergent intubation. Subjective: 03/16: Overnight the patient continued to have hemodynamic instability, now septic shock. Patient continues in A. fib with HR low 100's. Patient on maximum doses currently of norepinephrine and vasopressin infusions. [place]- cortisone added to medication regimen, Sodium bicarbonate infusion initiated. Imaging revealed hydronephrosis and pyelonephrosis patient seen by Dr. Larose, urine output now decreased to 150cc total over the last 12hrs, with continued elevation in creatinine. Planned renogram this a.m., to rule out obstruction with possible placement of nephrostomy tubes, and nephrology also consulted. Patient was seen by Dr. Candelario, carinal /hilar lymphadenopathy most likely not associated with carcinoma, plan for outpatient scan in 2-3 months. FiO2 was decreased to 60% overnight, ECHO pending her evaluation of cardiac status and pulmonary hypertension. 03/17: Overnight vasopressors weaned significantly, currently on lower doses. The patient continues on sodium bicarbonate infusion. Renogram canceled secondary to hemodynamic instability yesterday renal ultrasound performed revealed no hydronephrosis, creatinine continues to be elevated most likely secondary to acute kidney injury secondary to hypotension and septic shock. Nephrology consult pending. Echo revealed severe mitral valve stenosis and calcification with pulmonary hypertension and PASP 55.2 03/18: Remains sedated, orally intubated on mech vent. Off levophed. 03/19: Remains sedated, orally intubated on mechanical ventilation. Off Levophed. Blood pressure actually running high. Failed C Pap trials 03/20: Remains sedated, orally intubated on mechanical ventilation. Currently in A. fib. Off pressors. 03/21: Remains sedated, orally intubated on mechanical ventilation. In A. fib with RVR. Seen by Dr. Lubin on 03/21. Failed C Pap trials yesterday. 03/22: Remains sedated, orally intubated on mechanical ventilation. Remains in atrial fibrillation. Currently rate controlled with Cardizem drip. 03/23: Remains sedated, orally intubated on mechanical ventilation. On Cardizem drip for rate control for A. fib. 03/24: Remains drowsy off sedation, orally intubated on mechanical ventilation. Cardizem drip Her out for A. fib rate control. 03/25: Drowsy, easily arousable, squeezes my hand with her hands as well as wiggles her toes on command. Off Cardizem drip currently. Remains in A. fib rate controlled with by mouth Cardizem and amiodarone. 03/26: Seen earlier this morning. Patient extubated yesterday following C Pap trial. Currently on nasal cannula. 03/29: Worsening SOB and labored. Increased FiO2 requirements. Confused. Conversational dyspnea. New right lung PE; RV dimensions not enlarged. 03/30: Continued labored breathing. Switch to high flow O2 delivery. Would add an additional diuretic dose after potassium is replaced. 03/31: Breathing much improved, comfortable while laying supine. 04/01: Agree with FM Service; I think she is breathing more comfortably. She is still a bit ahead on fluid. I will increase her bumex to q12h until her bun rises to > 20. 04/02: Excellent diuresis, breathing more comfortably. Objective Vital Signs Date Time Temp Pulse Resp B/P (MAP) Pulse Ox O2 Delivery O2 Flow Rate FiO2 04/02/17 14:00 94 04/02/17 12:00 98.4 22 146/68 (94) 92 04/02/17 08:17 High Flow Nasal Cannula 20.00 40 Intake and Output 04/02/17 04/02/17 04/03/17 08:00 16:00 00:00 Intake Total 720 ml Output Total 3600 ml Balance -2880 ml Result Diagram: 04/02/17 0400 04/02/17 0400 Imaging Last 48 hours Impressions Chest X-Ray 03/20/17 0600 Signed Impressions: Service Date/Time: Monday, March 20, 2017 04:57 - CONCLUSION: 1. Endotracheal tube and nasogastric tube in good position. Basilar airspace disease increased from March 18. Samuel Lin MD Last Impressions Chest X-Ray 03/17/17 0000 Signed Impressions: Service Date/Time: Friday, March 17, 2017 06:22 - CONCLUSION: Persistent infiltrates consolidation left lower lung and patchy infiltrates in the central right lung. Antonio Voss MD Renal Ultrasound 03/16/17 0000 Signed Impressions: Service Date/Time: Thursday, March 16, 2017 11:27 - CONCLUSION: The hydronephrosis has resolved. Urinary bladder is decompressed.. Jose Flores MD CT Angiography 03/15/17 0520 Signed Impressions: Service Date/Time: Wednesday, March 15, 2017 07:46 - CONCLUSION: 1. No evidence for pulmonary embolism. 2. Cardiomegaly with enlargement of pulmonary arteries likely from pulmonary arterial hypertension. 3. Bibasilar patchy densities could be atelectasis or infiltrate. 4. Mosaic attenuation which can be seen with small airway disease. 5. Enlarged precarinal and subcarinal adenopathy. Jai Queen MD Head CT 03/15/17 0000 Signed Impressions: Service Date/Time: Wednesday, March 15, 2017 07:47 - CONCLUSION: No acute intracranial disease. Jai Queen MD Abdomen/Pelvis CT 03/15/17 0000 Signed Impressions: Service Date/Time: Wednesday, March 15, 2017 07:51 - CONCLUSION: 1. Bilateral hydronephrosis with extensive stranding in the perinephric regions greater on the left. 2. Mild circumferential wall thickening within the bladder with mild distention. 3. Postsurgical changes rectosigmoid junction. 4. Small fat containing abdominal wall hernias. Jai Queen MD Last Impressions Chest X-Ray 03/16/17 0600 Signed Impressions: Service Date/Time: Thursday, March 16, 2017 04:58 - CONCLUSION: Persisting consolidation left mid and lower lung and improving infiltrates in the lower right lung. Antonio Voss MD CT Angiography 03/15/17 05 Signed Impressions: Service Date/Time: Wednesday, March 15, 2017 07:46 - CONCLUSION: 1. No evidence for pulmonary embolism. 2. Cardiomegaly with enlargement of pulmonary arteries likely from pulmonary arterial hypertension. 3. Bibasilar patchy densities could be atelectasis or infiltrate. 4. Mosaic attenuation which can be seen with small airway disease. 5. Enlarged precarinal and subcarinal adenopathy. Jai Queen MD Head CT 03/15/17 0000 Signed Impressions: Service Date/Time: Wednesday, March 15, 2017 07:47 - CONCLUSION: No acute intracranial disease. Jai Queen MD Abdomen/Pelvis CT 03/15/17 0000 Signed Impressions: Service Date/Time: Wednesday, March 15, 2017 07:51 - CONCLUSION: 1. Bilateral hydronephrosis with extensive stranding in the perinephric regions greater on the left. 2. Mild circumferential wall thickening within the bladder with mild distention. 3. Postsurgical changes rectosigmoid junction. 4. Small fat containing abdominal wall hernias. Jai Queen MD Last Impressions Chest X-Ray 03/15/17 0520 Signed Impressions: Service Date/Time: Wednesday, March 15, 2017 05:41 - CONCLUSION: Opacity in the perihilar region bilaterally suggesting either central infiltrates or adenopathy. Antonio Voss MD CT Angiography 03/15/17 0520 Signed Impressions: Service Date/Time: Wednesday, March 15, 2017 07:46 - CONCLUSION: 1. No evidence for pulmonary embolism. 2. Cardiomegaly with enlargement of pulmonary arteries likely from pulmonary arterial hypertension. 3. Bibasilar patchy densities could be atelectasis or infiltrate. 4. Mosaic attenuation which can be seen with small airway disease. 5. Enlarged precarinal and subcarinal adenopathy. Jai Queen MD Head CT 03/15/17 0000 Signed Impressions: Service Date/Time: Wednesday, March 15, 2017 07:47 - CONCLUSION: No acute intracranial disease. Jai Queen MD Abdomen/Pelvis CT 03/15/17 0000 Signed Impressions: Service Date/Time: Wednesday, March 15, 2017 07:51 - CONCLUSION: 1. Bilateral hydronephrosis with extensive stranding in the perinephric regions greater on the left. 2. Mild circumferential wall thickening within the bladder with mild distention. 3. Postsurgical changes rectosigmoid junction. 4. Small fat containing abdominal wall hernias. Jai Queen MD Objective Remarks GENERAL: Elderly female, breathing comfortably SKIN: Warm and dry. HEAD: Atraumatic. Normocephalic. EYES: Pupils equal and round. No injection. NECK: Trachea midline. Airway widely patent. CARDIOVASCULAR: Irregularly irregular rhythm. No JVD. RESPIRATORY: Breath sounds equal bilaterally. Few scattered rhonchi bilaterally. Rate 15, comfortable. GASTROINTESTINAL: Abdomen soft, non-tender, nondistended. No guarding. BS active. MUSCULOSKELETAL: Extremities without clubbing, cyanosis. Bilateral trace edema lower extremities. NEUROLOGICAL: Awake and alert. Following commands. Moving all 4 extremities. Conversant. Procedures 03/16- Renogram cancelled . Renal US performed. 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 Follow neuro status. Start aspirin 162 mg daily 03/15 CT brain-no intracranial abnormality Effexor placed on hold Respiratory: Acute Hypoxemic respiratory failure Pulmonary hypertension Carinal adenopathy Extubated on 03/25 following C Pap trial. Tolerating nasal cannula Bronchodilators every 6 hours scheduled and every [address] angiogram -pulmonary hypertension, no PE, enlarged precarinal and subcarinal lymphadenopathy 03/17- CXR -consolidations B/L lobes worsened - 03/29. New right lung PE. Increased O2 requirements. - Start high flow NC. Cardiovascular: A. fib RVR Hypertension Patient arrived on Cardizem infusion-heart rate 130's, discontinue for MAP less than 60. Patient's home med amiodarone 200 mg daily increased to 400 mg twice a day. Labetalol when necessary for hypertension. Off pressors currently. Last echo 01/2015- ejection fraction 55-60%. No RWMA. PAP 35 mmHg, TV mild regurg ,MV mild regurg ECHO 03/16-EF 55- 60%. No RWMA, severe mitral valve annular calcification. Moderate mitral stenosis. Trace to mild MR, moderate TR, PAS P 55.2, trivial pulmonary valve regurgitation EPS- Dr. Lubin consulted. Discussed with Dr. Lubin on 03/21, plan to transition to by mouth Cardizem. Patient previously has had GI bleed on anticoagulation hence we'll hold off on any anticoagulation currently. Currently off Cardizem drip for rate control, remains on by mouth Cardizem. Dr. Lubin agreeable with starting aspirin 162 mg by mouth daily. Continue diuresis Renal: Bilateral hydronephrosis-resolved Pyelonephrosis Acute kidney injury most likely secondary to septic shock Elevated creatinine Hypernatremia Insert and maintain Gallo catheter 03/14-CT of the abdomen and pelvis-bilateral hydronephrosis, pyelonephrosis, perinephric stranding 03/16 renal ultrasound-no hydronephrosis KVO IV fluids. On Bumex 1 mg IV daily to mobilize fluid -- Strict I/Os, monitor and replete electrolytes, follow BUN/creatinine. Hypernatremia improved with free water which is stopped. FEN/GI: History of colon cancer status post chemotherapy Abdominal hernia Advance by mouth diet as tolerated Bowel regimen Heme/ID: Septic shock Community-acquired multilobar pneumonia Lactic acidemia Bandemia-resolved Blood cultures Klebsiella Urine culture Klebsiella Follow-up sputum culture Streptococcal and legionella antigens negative ID consulted - Dr. Hansen On antibiotics per ID Heme- Onc consulted regarding carinal adenopathy lymphadenopathy, patient is S/ P completion of chemotherapy 06/2016 Endocrine: Diabetes mellitus Hypothyroidism High-dose insulin medication regimen, Levemir 15 units subcutaneously twice a day -hold for anticipated extubation as tube feeds will be held until tolerating by mouth. Continue Levothyroxine 50 mcgs/day Obtain thyroid panel Glucose monitoring per ICU protocol -- SSI Prophylaxis: GI Prophylaxis famotidine BID DVT Prophylaxis -- SCDs Heparin 5000u Q8H Lines: Port right chest, peripheral IVs 2, left radial A-line Dispo: Overall impression: Much improved respiratory pattern after diuresis. Continue diuresis. Transfer anytime. Nate Santiago MD Apr 02, 2017 15:39
[2017-04-03] VITALS (13 sets, daily range): BP systolic 107–149; BP diastolic 55–80; PULSE 68–79; RESP 15–24; TEMP 96.1–98.6; O2SAT 95–99
[2017-04-03] MEDS: ENOXAPARIN SODIUM 100 MG/ML SYRINGE SQ SCH (00:20)
[2017-04-03] MEDS: DILTIAZEM HCL 60 MG TAB PO SCH ×4 (00:20→17:37)
[2017-04-03] MEDS: CHLORHEXIDINE GLUCONATE 2 % 1 PACK (2 CLOTHS) TOP SCH (04:00)
[2017-04-03] MEDS: LEVOTHYROXINE SODIUM 50 MCG TAB PO SCH (04:34)
[2017-04-03 05:45] LABS: HEMATOCRIT 29.7 % (35.0-46.0); MEAN CELL VOLUME 89.9 FL (80.0-100.0); MEAN CORPUSCULAR HEMOGLOBIN 29.7 PG (27.0-34.0); PLATELET COUNT 274 TH/MM3 (150-450); RED CELL DISTRIBUTION WIDTH 14.7 % (11.6-17.2); REVIEW FLAG FINAL; WHITE BLOOD COUNT 6.3 TH/MM3 (4.0-11.0)
[2017-04-03 06:14] LABS: BICARBONATE 27.9 MEQ/L (21.0-32.0); POTASSIUM 3.5 MEQ/L (3.5-5.1)
[2017-04-03] MEDS: ACETAMINOPHEN 325 MG TAB PO PRN (07:59)
[2017-04-03] MEDS: INSULIN ASPART SUPPLEMENTAL SCALE SQ SCH ×4 (08:00→21:01)
--- NOTE | 2017-04-03 09:10 | HHI.CCPN ---
Subjective Remarks/Hospital Course This is a 71 year old female with a PMH significant for colon cancer s/p chemotherapy, atrial fibrillation previously on Eliquis discontinued for GI bleeding, HTN, DM type 2, and MDD who presented to the ED with abdominal pain, nausea and vomiting.The patient stated that she had pain in her left side this morning that radiated to her lower abdomen and caused her to have nausea and vomiting. She states that she has been short of breath for the past 3 weeks and progressively more fatigued. Her states that she has been becoming progressively weaker and sleeping excessively at times. At 3AM this morning, he noticed that she was trying to talk but "wasn't making any sense." He states that she has been so short of breath that she has been having difficulty finishing sentences without becoming short of breath. She notes dysuria, urinary urgency and frequency for the past 3-4 days. Imaging studies and laboratory studies were performed. Notably CTA of the chest reveal pulmonary hypertension and carinal lymphadenopathy. CT abdomen and pelvis revealed bilateral hydronephrosis and pyelonephrosis with perinephric stranding. Cultures were sent, the patient was noted to have bacteremia notably gram- negative rods. The patient was in A. fib RVR in the ED the patient received Cardizem bolus and was placed on a Cardizem infusion and transferred to ICU. Upon admission to ICU the patient became progressively short of breath with escalating alternation in mental status critical care medicine was consulted. The patient's heart rate at that time was in the 130s systolic pressure 140s and O2 sat high 80s. Brief discussion with purpose of emergent intubation. Subjective: 03/16: Overnight the patient continued to have hemodynamic instability, now septic shock. Patient continues in A. fib with HR low 100's. Patient on maximum doses currently of norepinephrine and vasopressin infusions. [place]- cortisone added to medication regimen, Sodium bicarbonate infusion initiated. Imaging revealed hydronephrosis and pyelonephrosis patient seen by Dr. Larose, urine output now decreased to 150cc total over the last 12hrs, with continued elevation in creatinine. Planned renogram this a.m., to rule out obstruction with possible placement of nephrostomy tubes, and nephrology also consulted. Patient was seen by Dr. Candelario, carinal /hilar lymphadenopathy most likely not associated with carcinoma, plan for outpatient scan in 2-3 months. FiO2 was decreased to 60% overnight, ECHO pending her evaluation of cardiac status and pulmonary hypertension. 03/17: Overnight vasopressors weaned significantly, currently on lower doses. The patient continues on sodium bicarbonate infusion. Renogram canceled secondary to hemodynamic instability yesterday renal ultrasound performed revealed no hydronephrosis, creatinine continues to be elevated most likely secondary to acute kidney injury secondary to hypotension and septic shock. Nephrology consult pending. Echo revealed severe mitral valve stenosis and calcification with pulmonary hypertension and PASP 55.2 03/18: Remains sedated, orally intubated on mech vent. Off levophed. 03/19: Remains sedated, orally intubated on mechanical ventilation. Off Levophed. Blood pressure actually running high. Failed C Pap trials 03/20: Remains sedated, orally intubated on mechanical ventilation. Currently in A. fib. Off pressors. 03/21: Remains sedated, orally intubated on mechanical ventilation. In A. fib with RVR. Seen by Dr. Lubin on 03/21. Failed C Pap trials yesterday. 03/22: Remains sedated, orally intubated on mechanical ventilation. Remains in atrial fibrillation. Currently rate controlled with Cardizem drip. 03/23: Remains sedated, orally intubated on mechanical ventilation. On Cardizem drip for rate control for A. fib. 03/24: Remains drowsy off sedation, orally intubated on mechanical ventilation. Cardizem drip Her out for A. fib rate control. 03/25: Drowsy, easily arousable, squeezes my hand with her hands as well as wiggles her toes on command. Off Cardizem drip currently. Remains in A. fib rate controlled with by mouth Cardizem and amiodarone. 03/26: Seen earlier this morning. Patient extubated yesterday following C Pap trial. Currently on nasal cannula. 03/29: Worsening SOB and labored. Increased FiO2 requirements. Confused. Conversational dyspnea. New right lung PE; RV dimensions not enlarged. 03/30: Continued labored breathing. Switch to high flow O2 delivery. Would add an additional diuretic dose after potassium is replaced. 03/31: Breathing much improved, comfortable while laying supine. 04/01: Agree with FM Service; I think she is breathing more comfortably. She is still a bit ahead on fluid. I will increase her bumex to q12h until her bun rises to > 20. 04/02: Excellent diuresis, breathing more comfortably. 04/03: Weight is dropping nicely. I&O reflects 2400 ml intake yesterday - is she drinking a lot of water? Check CXR for effusion and followup infiltrate. Continue to wean FiO2 and get her transferred. Objective Vital Signs Date Time Temp Pulse Resp B/P (MAP) Pulse Ox O2 Delivery O2 Flow Rate FiO2 04/03/17 08:54 96 High Flow Nasal Cannula 20.00 45 04/03/17 06:00 70 04/03/17 04:00 98.1 23 140/75 (96) Intake and Output 04/03/17 04/03/17 04/04/17 08:00 16:00 00:00 Intake Total 960 ml Balance 960 ml Result Diagram: 04/03/17 0454 04/03/17 0454 Imaging Last 48 hours Impressions Chest X-Ray 03/20/17 0600 Signed Impressions: Service Date/Time: Monday, March 20, 2017 04:57 - CONCLUSION: 1. Endotracheal tube and nasogastric tube in good position. Basilar airspace disease increased from March 18. Samuel Lin MD Last Impressions Chest X-Ray 03/17/17 0000 Signed Impressions: Service Date/Time: Friday, March 17, 2017 06:22 - CONCLUSION: Persistent infiltrates consolidation left lower lung and patchy infiltrates in the central right lung. Antonio Voss MD Renal Ultrasound 03/16/17 0000 Signed Impressions: Service Date/Time: Thursday, March 16, 2017 11:27 - CONCLUSION: The hydronephrosis has resolved. Urinary bladder is decompressed.. Jose Flores MD CT Angiography 03/15/17 0520 Signed Impressions: Service Date/Time: Wednesday, March 15, 2017 07:46 - CONCLUSION: 1. No evidence for pulmonary embolism. 2. Cardiomegaly with enlargement of pulmonary arteries likely from pulmonary arterial hypertension. 3. Bibasilar patchy densities could be atelectasis or infiltrate. 4. Mosaic attenuation which can be seen with small airway disease. 5. Enlarged precarinal and subcarinal adenopathy. Jai Queen MD Head CT 03/15/17 0000 Signed Impressions: Service Date/Time: Wednesday, March 15, 2017 07:47 - CONCLUSION: No acute intracranial disease. Jai Queen MD Abdomen/Pelvis CT 03/15/17 0000 Signed Impressions: Service Date/Time: Wednesday, March 15, 2017 07:51 - CONCLUSION: 1. Bilateral hydronephrosis with extensive stranding in the perinephric regions greater on the left. 2. Mild circumferential wall thickening within the bladder with mild distention. 3. Postsurgical changes rectosigmoid junction. 4. Small fat containing abdominal wall hernias. Jai Queen MD Last Impressions Chest X-Ray 03/16/17 0600 Signed Impressions: Service Date/Time: Thursday, March 16, 2017 04:58 - CONCLUSION: Persisting consolidation left mid and lower lung and improving infiltrates in the lower right lung. Antonio Voss MD CT Angiography 03/15/17 05 Signed Impressions: Service Date/Time: Wednesday, March 15, 2017 07:46 - CONCLUSION: 1. No evidence for pulmonary embolism. 2. Cardiomegaly with enlargement of pulmonary arteries likely from pulmonary arterial hypertension. 3. Bibasilar patchy densities could be atelectasis or infiltrate. 4. Mosaic attenuation which can be seen with small airway disease. 5. Enlarged precarinal and subcarinal adenopathy. Jai Queen MD Head CT 03/15/17 0000 Signed Impressions: Service Date/Time: Wednesday, March 15, 2017 07:47 - CONCLUSION: No acute intracranial disease. Jai Queen MD Abdomen/Pelvis CT 03/15/17 0000 Signed Impressions: Service Date/Time: Wednesday, March 15, 2017 07:51 - CONCLUSION: 1. Bilateral hydronephrosis with extensive stranding in the perinephric regions greater on the left. 2. Mild circumferential wall thickening within the bladder with mild distention. 3. Postsurgical changes rectosigmoid junction. 4. Small fat containing abdominal wall hernias. Jai Queen MD Last Impressions Chest X-Ray 03/15/17 0520 Signed Impressions: Service Date/Time: Wednesday, March 15, 2017 05:41 - CONCLUSION: Opacity in the perihilar region bilaterally suggesting either central infiltrates or adenopathy. Antonio Voss MD CT Angiography 03/15/17 0520 Signed Impressions: Service Date/Time: Wednesday, March 15, 2017 07:46 - CONCLUSION: 1. No evidence for pulmonary embolism. 2. Cardiomegaly with enlargement of pulmonary arteries likely from pulmonary arterial hypertension. 3. Bibasilar patchy densities could be atelectasis or infiltrate. 4. Mosaic attenuation which can be seen with small airway disease. 5. Enlarged precarinal and subcarinal adenopathy. Jai Queen MD Head CT 03/15/17 0000 Signed Impressions: Service Date/Time: Wednesday, March 15, 2017 07:47 - CONCLUSION: No acute intracranial disease. Jai Queen MD Abdomen/Pelvis CT 03/15/17 0000 Signed Impressions: Service Date/Time: Wednesday, March 15, 2017 07:51 - CONCLUSION: 1. Bilateral hydronephrosis with extensive stranding in the perinephric regions greater on the left. 2. Mild circumferential wall thickening within the bladder with mild distention. 3. Postsurgical changes rectosigmoid junction. 4. Small fat containing abdominal wall hernias. Jai Queen MD Objective Remarks GENERAL: Elderly female, breathing comfortably SKIN: Warm and dry. HEAD: Atraumatic. Normocephalic. EYES: Pupils equal and round. No injection. NECK: Trachea midline. Airway widely patent. CARDIOVASCULAR: Irregularly irregular rhythm. No JVD. RESPIRATORY: Breath sounds equal bilaterally. Clear. Rate 14, comfortable. GASTROINTESTINAL: Abdomen soft, non-tender, nondistended. No guarding. BS active. MUSCULOSKELETAL: Extremities without clubbing, cyanosis. Well perfused. Bilateral edema lower extremities. NEUROLOGICAL: Awake and alert. Following commands. Moving all 4 extremities. Conversant. Procedures 03/16- Renogram cancelled . Renal US performed. 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 Follow neuro status. Start aspirin 162 mg daily 03/15 CT brain-no intracranial abnormality Effexor placed on hold Respiratory: Acute Hypoxemic respiratory failure Pulmonary hypertension Carinal adenopathy Extubated on 03/25 following C Pap trial. Tolerating nasal cannula Bronchodilators every 6 hours scheduled and every [address] angiogram -pulmonary hypertension, no PE, enlarged precarinal and subcarinal lymphadenopathy 03/17- CXR -consolidations B/L lobes worsened - 03/29. New right lung PE. Increased O2 requirements. - Wean off high flow NC. Cardiovascular: A. fib RVR Hypertension Patient arrived on Cardizem infusion-heart rate 130's, discontinue for MAP less than 60. Patient's home med amiodarone 200 mg daily increased to 400 mg twice a day. Labetalol when necessary for hypertension. Off pressors currently. Last echo 01/2015- ejection fraction 55-60%. No RWMA. PAP 35 mmHg, TV mild regurg ,MV mild regurg ECHO 03/16-EF 55- 60%. No RWMA, severe mitral valve annular calcification. Moderate mitral stenosis. Trace to mild MR, moderate TR, PAS P 55.2, trivial pulmonary valve regurgitation EPS- Dr. Lubin consulted. Discussed with Dr. Lubin on 03/21, plan to transition to by mouth Cardizem. Patient previously has had GI bleed on anticoagulation hence we'll hold off on any anticoagulation currently. Currently off Cardizem drip for rate control, remains on by mouth Cardizem. Dr. Lubin agreeable with starting aspirin 162 mg by mouth daily. Continue diuresis Renal: Bilateral hydronephrosis-resolved Pyelonephrosis Acute kidney injury most likely secondary to septic shock Elevated creatinine Hypernatremia Insert and maintain Gallo catheter 03/14-CT of the abdomen and pelvis-bilateral hydronephrosis, pyelonephrosis, perinephric stranding 03/16 renal ultrasound-no hydronephrosis KVO IV fluids. On Bumex 1 mg IV daily to mobilize fluid -- Strict I/Os, monitor and replete electrolytes, follow BUN/creatinine. Hypernatremia improved with free water which is stopped. FEN/GI: History of colon cancer status post chemotherapy Abdominal hernia Advance by mouth diet as tolerated Bowel regimen Heme/ID: Septic shock Community-acquired multilobar pneumonia Lactic acidemia Bandemia-resolved Blood cultures Klebsiella Urine culture Klebsiella Follow-up sputum culture Streptococcal and legionella antigens negative ID consulted - Dr. Hansen On antibiotics per ID Heme- Onc consulted regarding carinal adenopathy lymphadenopathy, patient is S/ P completion of chemotherapy 06/2016 Endocrine: Diabetes mellitus Hypothyroidism High-dose insulin medication regimen, Levemir 15 units subcutaneously twice a day -hold for anticipated extubation as tube feeds will be held until tolerating by mouth. Continue Levothyroxine 50 mcgs/day Obtain thyroid panel Glucose monitoring per ICU protocol -- SSI Prophylaxis: GI Prophylaxis famotidine BID DVT Prophylaxis -- SCDs Heparin 5000u Q8H Lines: Port right chest, peripheral IVs 2, left radial A-line Dispo: Overall impression: Much improved respiratory pattern after diuresis. Continue diuresis. Wean of high flow O2. Transfer anytime. Nate Santiago MD Apr 03, 2017 09:10
[2017-04-03] MEDS: FLUoxetine HCL LIQUID 20 MG/5 ML CUP PO SCH (09:24)
[2017-04-03] MEDS: DOCUSATE SODIUM 50 MG/SENNA 8.6 MG TAB PO SCH ×2 (09:24→20:37)
[2017-04-03] MEDS: RIVAROXABAN 15 MG TAB PO SCH ×2 (09:25→22:41)
[2017-04-03] MEDS: FAMOTIDINE 20 MG TAB PO SCH ×2 (09:25→20:37)
[2017-04-03] MEDS: AMIODARONE 200 MG TAB PO SCH ×2 (09:25→20:37)
[2017-04-03] MEDS: PRAVASTATIN SOD 40 MG TAB PO SCH (09:25)
[2017-04-03] MEDS: ASPIRIN EC 81 MG TABEC PO SCH (09:25)
[2017-04-03] MEDS: SODIUM CHLORIDE 0.9% FLUSH 10 ML FLUSH IV FLUSH SCH ×2 (09:26→20:37)
[2017-04-03] MEDS: BUMETANIDE INJ 1 MG/4 ML VIAL IV PUSH SCH ×2 (09:26→20:37)
[2017-04-03] MEDS: INSULIN DETEMIR 100 UNITS/ML VIAL SQ SCH ×2 (09:27→20:50)
--- NOTE | 2017-04-03 09:51 | HHI.FPPN ---
Subjective Remarks Patient seen and examined this morning. Temperature 98.1, pulse 70, respiratory rate 23, blood pressure 140/75, pulse ox 96 on high flow nasal cannula with O2 flow rate at 20 and FiO2 at 45. Today her main concern was getting her breakfast. She reported that she had some mild shortness of breath , but denies any chest pain. Only one of the nasal cannula was in her nostril daily one was outside. Discussed attempting weaning of the high flow oxygen, she is in agreement but is worried about it. Informed her that we have to stop the high flow oxygen prior to getting out of the ICU, she would like very much to get out of the ICU so she is willing to try. Endorses: Shortness of breath Denies: Fever, chills, nausea, vomiting, chest pain, headache, abdominal pain, calf pain All other review of symptoms were negative (Sumit Flor MD, R3) Objective Vitals Vital Signs Date Time Temp Pulse Resp B/P (MAP) Pulse Ox O2 Delivery O2 Flow Rate FiO2 04/03/17 08:54 96 High Flow Nasal Cannula 20.00 45 04/03/17 06:00 70 04/03/17 04:00 70 04/03/17 04:00 98.1 70 23 140/75 (96) 96 04/03/17 02:00 68 04/03/17 00:00 71 04/03/17 00:00 98.3 71 24 125/76 (92) 97 04/02/17 22:29 96 High Flow Nasal Cannula 20.00 45 04/02/17 22:00 79 04/02/17 20:00 97.8 82 24 140/65 (90) 94 04/02/17 20:00 82 04/02/17 19:00 95 Nasal Cannula 25.00 45 04/02/17 18:00 78 04/02/17 16:00 80 04/02/17 16:00 98.3 80 20 169/81 (110) 92 04/02/17 14:00 94 04/02/17 12:00 86 04/02/17 12:00 98.4 86 22 146/68 (94) 92 04/02/17 10:08 91 High Flow Nasal Cannula 20.00 50 04/02/17 10:00 86 I/O 10/10/17 10/10/04/02/17 04/03/17 04/03/17 04/03/17 06:59 14:59 22:59 06:59 14:59 22:59 Intake Total 720 ml 1440 ml 960 ml Output Total 3600 ml 2950 ml Balance -2880 ml -1510 ml 960 ml Intake Oral 720 ml 1440 ml 960 ml Output Urine Total 3600 ml 2950 ml # Voids 2 7 # Bowel Movements 2 3 0 (Sumit Flor MD, R3) Result Diagram: 04/03/17 0454 04/03/17 0454 Imaging Last Impressions Chest X-Ray 03/29/17 0000 Signed Impressions: Service Date/Time: Wednesday, March 29, 2017 09:22 - CONCLUSION: Some interval worsening in aeration Jose Wright MD Head CT 03/28/17 0000 Signed Impressions: Service Date/Time: March 15:57 - CONCLUSION: 1. The study is degraded by motion artifact. 2. No evidence of hemorrhage or mass effect. Robe Menchaca MD CT Angiography 03/28/17 0000 Signed Impressions: Service Date/Time: March 21:35 - CONCLUSION: 1. Acute small volume pulmonary emboli on the right. 2. Bilateral pulmonary infiltrates , bibasilar atelectasis, and small bilateral pleural effusions. Antonio High Jr., MD Renal Ultrasound 03/16/17 0000 Signed Impressions: Service Date/Time: Thursday, March 16, 2017 11:27 - CONCLUSION: The hydronephrosis has resolved. Urinary bladder is decompressed.. Jose Flores MD Abdomen/Pelvis CT 03/15/17 0000 Signed Impressions: Service Date/Time: Wednesday, March 15, 2017 07:51 - CONCLUSION: 1. Bilateral hydronephrosis with extensive stranding in the perinephric regions greater on the left. 2. Mild circumferential wall thickening within the bladder with mild distention. 3. Postsurgical changes rectosigmoid junction. 4. Small fat containing abdominal wall hernias. Jai Queen MD Objective Remarks GENERAL: Lying in bed, nasal canula high flow, no accessory muscle use, awake alert and oriented SKIN: No rashes or lesions HEENT; Normocephalic, no conjunctivitis NECK: Supple, trachea midline. No JVD or lymphadenopathy. CARDIOVASCULAR: Irregularly irregular rate and rhythm with systolic murmur RESPIRATORY: no accessory muscle use,clear, on high flow oxygen GASTROINTESTINAL: Abdomen soft, mildly tender in middle quadrant, Bowel sounds present. No rebound or guarding. MUSCULOSKELETAL: No edema NEURO: Answering simple questions, awake and alert and cooperative. sleeping when I entered the room Medications and IVs Current Medications Medications (Trade) Dose Ordered Sig/Chiqui Route Start Time Stop Time Status Last Admin (Synthroid) 50 mcg DAILY@0600 PO 03/16/17 06:00 04/03/17 04:34 (Pravachol) 40 mg DAILY PO 03/16/17 09:00 04/03/17 09:25 (Ativan Inj) 1 mg Q4H PRN IV PUSH 03/15/17 14:00 03/31/17 12:15 (NS Flush) 2 ml UNSCH PRN IV FLUSH 03/15/17 14:30 (NS Flush) 2 ml BID IV FLUSH 03/15/17 21:00 04/03/17 09:26 (Zofran Inj) 4 mg Q6H PRN IV PUSH 03/15/17 14:30 (Duoneb Neb) 1 ampule Q2HR NEB PRN INH 03/15/17 14:30 03/19/17 22:26 (Chlorhexidine 2% Cloth) Taper DAILY@04 TOP 03/16/17 04:00 03/12/18 03:59 03/25/17 04:00 (Elsa-Colace) 1 tab BID PO 03/15/17 21:00 04/03/17 09:24 (Milk Of Magnesia Liq) 30 ml Q12H PRN PO 03/15/17 14:30 03/31/17 07:53 (Senokot) 17.2 mg Q12H PRN PO 03/15/17 14:30 (Dulcolax Supp) 10 mg DAILY PRN RECTAL 03/15/17 14:30 (D50w (Vial) Inj) 50 ml UNSCH PRN IV PUSH 03/15/17 15:15 (Glucagon Inj) 1 mg UNSCH PRN OTHER 03/15/17 15:15 (Cordarone) 400 mg BID PO 03/16/17 21:00 04/03/17 09:25 (Trandate Inj) 20 mg Q2H PRN IV 03/19/17 12:00 03/28/17 14:06 (PROzac LIQ) 20 mg DAILY PO 03/20/17 11:00 04/03/17 09:24 Diltiazem HCl 125 mg/Sodium Chloride 125 ml @ 5 mls/hr TITRATE PRN IV 03/21/17 07:45 03/23/17 20:51 (Cardizem) 60 mg Q6HR PO 03/22/17 18:00 04/03/17 04:34 (Levaquin) 750 mg Q48H PO 03/25/17 10:00 04/04/17 23:00 04/02/17 09:18 (Mag-Al Plus Susp Liq) 20 ml Q6H PRN PO 03/25/17 19:30 03/26/17 09:48 (Pepcid) 10 mg BID PO 03/26/17 21:00 04/03/17 09:25 (Tears Naturale Opth Soln) 1 drop TID PRN EACH EYE 03/26/17 09:45 (Lactulose Liq) 30 ml DAILY PRN NG 03/26/17 10:15 (Tylenol) 650 mg Q6H PRN PO 03/26/17 12:45 04/03/17 07:59 ([place] 5-325 Mg) 1 tab Q4H PRN PO 03/26/17 16:45 03/26/17 20:51 (Ecotrin Ec) 162 mg DAILY PO 03/27/17 09:00 04/03/17 09:25 Miscellaneous Information 1 Q361D XX 03/26/17 21:30 03/26/17 21:30 (Levemir Inj) 5 units Q12HR SQ 03/27/17 21:00 04/03/17 09:27 (NovoLOG SUPPLEMENTAL SCALE) 1 ACHS SLIDING SCALE SQ 03/27/17 12:00 04/01/17 20:38 Miscellaneous Information D/C ICU ELECTROLYTE ORDERS... UNSCH PRN .XX 03/30/17 05:15 Miscellaneous Information ICU - CALL ORDERING PHYSIC... UNSCH PRN .XX 03/30/17 05:15 Potassium Chloride 100 ml @ 25 mls/hr UNSCH PRN IV 03/30/17 05:15 04/02/17 05:55 (K-Lyte Cl Eff) 50 meq UNSCH PRN PO 03/30/17 05:15 Potassium Chloride 100 ml @ 50 mls/hr UNSCH PRN IV 03/30/17 05:15 Magnesium Sulfate 4 gm/Sodium Chloride 108 ml @ 54 mls/hr UNSCH PRN IV 03/30/17 05:15 Magnesium Sulfate 2 gm/Sodium Chloride 104 ml @ 52 mls/hr UNSCH PRN IV 03/30/17 05:15 (Mag-Ox) 800 mg UNSCH PRN PO 03/30/17 05:15 Sodium Phosphate 30 mmol/Sodium Chloride 260 ml @ 43.333 mls/ hr UNSCH PRN IV 03/30/17 05:15 (K-Phos) 2,000 mg UNSCH PRN PO 03/30/17 05:15 Potassium Phosphate 30 mmol/ Sodium Chloride 260 ml @ 43.333 mls/ hr UNSCH PRN IV 03/30/17 05:15 (Xanax) 0.5 mg Q8H PRN PO 03/30/17 14:15 (Fleets Enema (Adult)) 133 ml UNSCH PRN RECTAL 03/31/17 09:30 (Bumex Inj) 1 mg Q12H IV PUSH 04/01/17 21:00 04/03/17 09:26 (Restoril) 15 mg HS PRN PO 04/02/17 08:30 (Xarelto) 15 mg BID PO 04/03/17 09:00 04/03/17 09:25 (Albuterol Neb) 2.5 mg Q6HR NEB NEB 04/03/17 10:00 UNV (Sumit Flor MD, R3) Date of Insertion: Mar 15, 2017 (Sumit Flor MD, R3) A/P Assessment and Plan 71 year old female with a PMH significant for colon cancer s/p chemotherapy, atrial fibrillation on Eliquis, HTN, DM type 2, and MDD who presented to the ED with abdominal pain, nausea and vomiting and was found to have severe sepsis secondary to PNA and pyelonephritis in addition to atrial fibrillation with RVR. She rapidly decompensated into respiratory failure and was intubated on . Patient then improved and was extubated and moved to the [facility]. On 03/29, there was acutely worsened respiratory status, found to have PE on right. Transferred back to [facility]. Improved today, with diuresis and anticoagulation started on Xarelto Discharge Planning she is very weak and debilitated. Should be able to ultimately go to [place] for long-term rehab (Sumit Flor MD, R3) Attending Attestation Patient seen and examined. Case reviewed and discussed with the resident team. Agree with plan of care as discussed with me and documented in the resident note. encouraged her to do her PT. She wants to go to the bathroom today and also " get out of here". She has more motivation and energy today. agree with weaning off high flow oxygen and transfer to med surg floor once tolerated (Lydia Greenberg MD) Problem List: (1) Pulmonary emboli ICD Codes: I26.99 - Other pulmonary embolism without acute cor pulmonale Status: Acute Plan: Transitioned to Therapeutic Xarelto : Acute Hypoxemic respiratory failure originally with her sepsis Pulmonary hypertension Carinal adenopathy 03/15 Patient intubated emergently Duonebs Q6H scheduled and Q2H when necessary Albuterol 2.5mg q6hr Chest x-ray 03/29 - worsening aeration CTA on 03/28 - small volume PE on right, on therapeutic Lovenox History of pneumonia, possibly redeveloping pneumonia, currently not on antibiotics Currently diuresed with Bumex 1mg IV BID, monitor I's and O's Pulmonary HTN not present on last echo in 2014, 03/16 Echo shows EF 55-60%, severe mitral annular calcification with moderate mitral valve stenosis, mildly dilated right atrium, mild to mod aortic valve stenosis, pulmonary arterial pressure 55.2 Breathing on high flow nasal canula Pulmonary embolism on right, small volume: Currently on therapeutic Xarelto 15mg twice a day improving with diuresis and anticoagulation (2) Atrial fibrillation with rapid ventricular response ICD Codes: I48.91 - Atrial fibrillation with rapid ventricular response Status: Resolved Plan: Amiodarone 400mg PO BID. labetalol when necessary for hypertension. Cardizem drip restarted for afib with RVR, rate was in 130-140's. Now down to 80s Last echo 02/05- ejection fraction 55-60%. No RWMA. APA 35 mmHg, TV mild regurg, MV mild regurg 03/16 Echo results as above EPS- Dr. Lubin consulted, has signed off (3) Diabetes mellitus, type II ICD Codes: E11.9 - Type 2 diabetes mellitus Status: Chronic Plan: Diabetes mellitus mid-dose SSI ac and hs Long-acting Levemir at 5 units twice a day, will monitor for hypoglycemia (4) Hypertension ICD Codes: I10 - Essential (primary) hypertension Status: Chronic Plan: on Cardizem (5) Hypothyroidism ICD Codes: E03.9 - Hypothyroidism Status: Acute Plan: Continue Levothyroxine 50 mcgs/day (6) Nutrition, metabolism, and development symptoms ICD Codes: R63.8 - Symptoms concerning nutrition, metabolism, and development Status: Acute Plan: History of colon cancer status post chemotherapy and colectomy Abdominal hernia Diabetic Diet Prophylaxis: GI Prophylaxis with famotidine 10 mg BID DVT Prophylaxis: currently therapeutic Xarelto (7) Sepsis due to Gram-negative organism with septic shock ICD Codes: A41.50 - Gram-negative sepsis, unspecified; R65.21 - Severe sepsis with septic shock Status: Resolved Plan: Renal: Bilateral hydronephrosis from pyelo, now resolved Pyelonephrosis Gallo catheter re-inserted on 03/29 for critical state, diuresis, accurate I's and O's, poor mobility, will need removal. explained to her it can increase risk of infection. he wishes her to keep it a little longer as she is able to rest and not get up every hour to be changed 03/14-CT of the abdomen and pelvis-bilateral hydronephrosis, pyelonephrosis, perinephric stranding -- Strict I/Os Urology consulted, has signed off- 03/16 renal US shows resolution of hydronephrosis, urinary bladder decompressed Nephrology consulted, recommendations appreciated Creatinine stable Heme/ID: Septic Shock due to gram negative carmela on admission, better now Community-acquired multilobar pneumonia Pyelonephritis Lactic acidemia Bandemia 03/15 Blood cultures growing Klebsiella pneumoniae 03/15 urine culture growing Klebsiella pneumonia 03/16 sputum culture: No growth to date 2 days legionella and streptococcus antigens negative ID consulted - Dr. Hansen, treat with Levaquin, started 03/25 (dosed every other day). (vanc and cefepime have been discontinued) 03/19: Urine culture: No growth to date 2 Heme- Onc consulted regarding carinal adenopathy lymphadenopathy, patient is S/ P completion of chemotherapy 09/2016. Repeat CT chest in 1-2 months to evaluate mediastinal lymph nodes as outpatient Trend lactate level 6.4->4.2->4.9->3.0->1.5->2.2->2.3 (8) Delirium ICD Codes: R41.0 - Disorientation, unspecified Status: Resolved Plan: AMS-toxic encephalopathy secondary to sepsis originally History of TIA x 2 Major Depressive Disorder 03/15 CT brain-no intracranial abnormality Neurology consulted- Dr. 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
[2017-04-03] MEDS: RESP: ALBUTEROL 2.5 MG/3 ML NEB (SCH) NEB ×3 (10:00→21:38)
[2017-04-03] MEDS: FLUoxetine HCL 20 MG CAP PO SCH ×2 (11:38→11:44)
--- NOTE | 2017-04-03 11:47 | RADRPT ---
EXAM DATE/TIME: 04/03/2017 10:35 [facility] COMPARISON: CHEST SINGLE AP, March 29, 2017, 9:22. INDICATIONS : Short of breath. MEDICAL HISTORY : CVA, A-Fib, Diabetes, HTN, HLD, Anemia, Sigmoid mass with multiple polyps, SURGICAL HISTORY : , Hernia repair, Appendectomy, Exploratory laparotomy, EGD, Flexible ENCOUNTER: Subsequent ACUITY: 1 week PAIN SCORE: 0/10 LOCATION: Bilateral chest FINDINGS: [id number] in good position. Cardiomegaly with mild interstitial edema present. There is no evid ence of consolidation or pleural effusion. There is no pneumothorax. CONCLUSION: Cardiomegaly with mild interstitial edema, slightly improved in the interval. Javed Resendez MD FACR on April 03, 2017 at 11:27 Board Certified Radiologist. This report was verified electronically.
--- NOTE | 2017-04-03 14:10 | HHI.PR ---
Subjective Subjective Comments Patient awake and alert. Nasal cannula oxygen in place. Denies any pain complaint. Allergies: Coded Allergies: codeine (Unverified Allergy, Severe, Nausea/Vomiting, 03/15/17) Uncoded Allergies: METAL (Allergy, Intermediate, hives, 03/08/16) SURGICAL STEEL (Allergy, Intermediate, hives, 03/08/16) Review of Systems All other ROS: ROS reviewed as documented in chart Exam I&O / VS Vital Signs Date Time Temp Pulse Resp B/P (MAP) Pulse Ox O2 Delivery O2 Flow Rate FiO2 04/03/17 12:00 98.6 78 15 149/80 (103) 99 04/03/17 12:00 78 04/03/17 10:10 97 Nasal Cannula 4.00 04/03/17 10:00 77 04/03/17 08:54 96 High Flow Nasal Cannula 20.00 45 04/03/17 08:00 78 04/03/17 08:00 98.1 74 17 133/74 (93) 99 04/03/17 07:00 95 Nasal Cannula 25.00 45 04/03/17 06:00 70 04/03/17 04:00 70 04/03/17 04:00 98.1 70 23 140/75 (96) 96 04/03/17 02:00 68 04/03/17 00:00 71 04/03/17 00:00 98.3 71 24 125/76 (92) 97 04/02/17 22:29 96 High Flow Nasal Cannula 20.00 45 04/02/17 22:00 79 04/02/17 20:00 97.8 82 24 140/65 (90) 94 04/02/17 20:00 82 04/02/17 19:00 95 Nasal Cannula 25.00 45 04/02/17 18:00 78 04/02/17 16:00 80 04/02/17 16:00 98.3 80 20 169/81 (110) 92 General: No acute distress, Other (NC O2 in place) Respiratory: Coarse breath sounds Cardiovascular: Normal rate Musculoskeletal: ROM Psychiatric: Cooperative, Appropriate mood & affect (Affect flat) Orientation: oriented to Self, oriented to Situation Neurologic: Speech (Intelligible), Other (Follows commands to move both upper extremities was grossly 4/5 strength; fatigued after physical therapy but trace movement at the hips bilaterally for flexion) Objective Micro and Labs Laboratory Tests Test 04/03/17 04:54 White Blood Count 6.3 Red Blood Count 3.30 Hemoglobin 9.8 Hematocrit 29.7 Mean Corpuscular Volume 89.9 Mean Corpuscular Hemoglobin 29.7 Mean Corpuscular Hemoglobin Concent 33.0 Red Cell Distribution Width 14.7 Platelet Count 274 Mean Platelet Volume 8.5 Blood Urea Nitrogen 9 Creatinine 0.77 Random Glucose 152 Calcium Level 8.9 Sodium Level 138 Potassium Level 3.5 Chloride Level 100 Carbon Dioxide Level 27.9 Anion Gap 10 Estimat Glomerular Filtration Rate 74 Date/Time Source Procedure Growth Status 03/21/17 21:20 Blood Other Aerobic Blood Culture - Final NO GROWTH IN 5 DAYS Complete 03/21/17 21:20 Blood Other Anaerobic Blood Culture - Final NO GROWTH IN 5 DAYS Complete 03/21/17 18:30 Sputum Endotracheal Gram Stain - Final Complete 03/21/17 18:30 Sputum Endotracheal Sputum Culture - Final NO GROWTH IN 48 HOURS. Complete 03/19/17 09:30 Urine Catheterized Urine Urine Culture - Final NO GROWTH IN 48 HOURS. Complete Assessment and Plan Diagnosis: (1) Physical deconditioning ICD Codes: R53.81 - Other malaise (2) Severe sepsis ICD Codes: A41.9 - Sepsis, unspecified organism; R65.20 - Severe sepsis without septic shock Status: Acute Assessment 1. Deconditioning due to medical illness including sepsis with shock, atrial fibrillation with RVR, and respiratory failure requiring intubation 2. Colon CA S/P chemotherapy 3. HTN 4. DM type 2 5.Hypothyroidism Plan 1. PT mobilizing and mod assist of 2 for bed mobility. Mobilize to stretcher chair to increase activity tolerance 2. Roho cushion when up to chair. Wound care following for sacral and upper buttock wounds 3. OT for ADl's and patient dependent 4. Will follow regarding additional rehab needs. Anticipate that patient will need ongoing inpatient rehabilitation at discharge and for IRF level will need to be able to tolerate 2 hours of OOB to chair 5. Will continue to follow while hospitalized and at discharge as appropriate Nay Smith MD Apr 03, 2017 14:10
[2017-04-04] VITALS (10 sets, daily range): BP systolic 111–143; BP diastolic 61–86; PULSE 70–91; RESP 18–20; TEMP 95.8–98.2; O2SAT 94–100
[2017-04-04] MEDS: DILTIAZEM HCL 60 MG TAB PO SCH ×4 (00:05→18:18)
[2017-04-04] MEDS: CHLORHEXIDINE GLUCONATE 2 % 1 PACK (2 CLOTHS) TOP SCH (04:00)
[2017-04-04] MEDS: LEVOTHYROXINE SODIUM 50 MCG TAB PO SCH (05:40)
[2017-04-04 07:21] LABS: HEMATOCRIT 30.1 % (35.0-46.0); MEAN CELL VOLUME 89.4 FL (80.0-100.0); MEAN CORPUSCULAR HEMOGLOBIN 29.5 PG (27.0-34.0); PLATELET COUNT 285 TH/MM3 (150-450); RED BLOOD COUNT 3.37 MIL/MM3 (4.00-5.30); REVIEW FLAG FINAL; WHITE BLOOD COUNT 6.5 TH/MM3 (4.0-11.0)
[2017-04-04 07:44] LABS: BICARBONATE 28.8 MEQ/L (21.0-32.0); POTASSIUM 3.5 MEQ/L (3.5-5.1)
[2017-04-04] MEDS: RESP: ALBUTEROL 2.5 MG/3 ML NEB (SCH) NEB ×3 (08:00→20:00)
[2017-04-04] MEDS: INSULIN ASPART SUPPLEMENTAL SCALE SQ SCH ×4 (08:00→21:00)
[2017-04-04] MEDS: FLUoxetine HCL 20 MG CAP PO SCH (08:18)
[2017-04-04] MEDS: ASPIRIN EC 81 MG TABEC PO SCH (08:18)
[2017-04-04] MEDS: AMIODARONE 200 MG TAB PO SCH ×2 (08:19→21:40)
[2017-04-04] MEDS: FAMOTIDINE 20 MG TAB PO SCH ×2 (08:19→21:41)
[2017-04-04] MEDS: LEVOFLOXACIN 750 MG TAB PO SCH (08:19)
[2017-04-04] MEDS: DOCUSATE SODIUM 50 MG/SENNA 8.6 MG TAB PO SCH ×2 (08:19→21:40)
[2017-04-04] MEDS: PRAVASTATIN SOD 40 MG TAB PO SCH (08:20)
[2017-04-04] MEDS: BUMETANIDE INJ 1 MG/4 ML VIAL IV PUSH SCH ×2 (08:21→21:44)
[2017-04-04] MEDS: SODIUM CHLORIDE 0.9% FLUSH 10 ML FLUSH IV FLUSH SCH ×2 (08:21→21:44)
[2017-04-04] MEDS: INSULIN DETEMIR 100 UNITS/ML VIAL SQ SCH ×2 (08:35→21:52)
--- NOTE | 2017-04-04 10:35 | HHI.FPPN ---
Subjective Remarks Patient seen and examined this morning. Afebrile vital signs stable. Patient is doing well overall and her only complaint is that she did not get much sleep last night. I informed her that she needs to work harder during the day during her physical activity and not taking naps and that she'll sleep better during the night if she does that. I informed her that she needs to continue to improve with her physical therapy in order to get to the rehabilitation facility progress towards getting out of the hospital. She promises she will work hard with physical therapy today. Endorses: Mild shortness of breath, generalized weakness from muscle decompensation Denies: Fever, chills, nausea, vomiting, chest pain, headache, abdominal pain, calf pain All other review of symptoms were negative (Sumit Flor MD, R3) Objective Vitals Vital Signs Date Time Temp Pulse Resp B/P (MAP) Pulse Ox O2 Delivery O2 Flow Rate FiO2 04/04/17 08:00 78 04/04/17 07:40 98.2 78 133/66 (88) 04/04/17 04:11 97.3 74 20 111/61 (78) 94 04/04/17 00:00 97.6 75 20 124/72 (89) 97 04/03/17 21:41 95 Nasal Cannula 3.00 04/03/17 20:30 97 Nasal Cannula 3.00 04/03/17 20:00 96.1 79 20 107/55 (72) 97 04/03/17 20:00 69 04/03/17 16:00 96.9 78 19 149/69 (95) 97 04/03/17 14:45 Nasal Cannula 3.00 04/03/17 14:00 79 04/03/17 12:00 98.6 78 15 149/80 (103) 99 04/03/17 12:00 78 I/O 04/03/17 04/03/17 04/03/17 04/04/17 04/04/17 04/04/17 07:00 15:00 23:00 07:00 15:00 23:00 Intake Total 960 ml 240 ml 120 ml Output Total 4 ml Balance 960 ml 240 ml -4 ml 120 ml Intake Oral 960 ml 240 ml 120 ml Output Urine Total 4 ml # Voids 7 # Bowel Movements 0 0 (Sumit Flor MD, R3) Result Diagram: 04/04/17 0545 04/04/17 0545 Imaging Last Impressions Chest X-Ray 04/03/17 0000 Signed Impressions: Service Date/Time: Monday, April 03, 2017 10:35 - CONCLUSION: Cardiomegaly with mild interstitial edema, slightly improved in the interval. Javed Resendez MD FACR Head CT 03/28/17 0000 Signed Impressions: Service Date/Time: March 15:57 - CONCLUSION: 1. The study is degraded by motion artifact. 2. No evidence of hemorrhage or mass effect. Robe Menchaca MD CT Angiography 03/28/17 0000 Signed Impressions: Service Date/Time: March 21:35 - CONCLUSION: 1. Acute small volume pulmonary emboli on the right. 2. Bilateral pulmonary infiltrates , bibasilar atelectasis, and small bilateral pleural effusions. Antonio High Jr., MD Renal Ultrasound 03/16/17 0000 Signed Impressions: Service Date/Time: Thursday, March 16, 2017 11:27 - CONCLUSION: The hydronephrosis has resolved. Urinary bladder is decompressed.. Jose Flores MD Abdomen/Pelvis CT 03/15/17 0000 Signed Impressions: Service Date/Time: Wednesday, March 15, 2017 07:51 - CONCLUSION: 1. Bilateral hydronephrosis with extensive stranding in the perinephric regions greater on the left. 2. Mild circumferential wall thickening within the bladder with mild distention. 3. Postsurgical changes rectosigmoid junction. 4. Small fat containing abdominal wall hernias. Jai Queen MD Objective Remarks GENERAL: Lying in bed, nasal canula at 4 L, no accessory muscle use, awake alert and oriented SKIN: No rashes or lesions HEENT; Normocephalic, no conjunctivitis NECK: Supple, trachea midline. No JVD or lymphadenopathy. CARDIOVASCULAR: Irregularly irregular rate and rhythm with systolic murmur RESPIRATORY: no accessory muscle use,clear, on high flow oxygen GASTROINTESTINAL: Abdomen soft, mildly tender in middle quadrant, Bowel sounds present. No rebound or guarding. MUSCULOSKELETAL: No edema NEURO: Answering simple questions, awake and alert and cooperative. sleeping when I entered the room Medications and IVs Current Medications Medications (Trade) Dose Ordered Sig/Chiqui Route Start Time Stop Time Status Last Admin (Synthroid) 50 mcg DAILY@0600 PO 03/16/17 06:00 04/04/17 05:40 (Pravachol) 40 mg DAILY PO 03/16/17 09:00 04/04/17 08:20 (Ativan Inj) 1 mg Q4H PRN IV PUSH 03/15/17 14:00 03/31/17 12:15 (NS Flush) 2 ml UNSCH PRN IV FLUSH 03/15/17 14:30 (NS Flush) 2 ml BID IV FLUSH 03/15/17 21:00 04/04/17 08:21 (Zofran Inj) 4 mg Q6H PRN IV PUSH 03/15/17 14:30 (Duoneb Neb) 1 ampule Q2HR NEB PRN INH 03/15/17 14:30 03/19/17 22:26 (Chlorhexidine 2% Cloth) 3 pack Taper DAILY@04 TOP 03/16/17 04:00 03/12/18 03:59 03/25/17 04:00 (Elsa-Colace) 1 tab BID PO 03/15/17 21:00 04/04/17 08:19 (Milk Of Magnesia Liq) 30 ml Q12H PRN PO 03/15/17 14:30 03/31/17 07:53 (Senokot) 17.2 mg Q12H PRN PO 03/15/17 14:30 04/03/17 17:49 (Dulcolax Supp) 10 mg DAILY PRN RECTAL 03/15/17 14:30 (D50w (Vial) Inj) 50 ml UNSCH PRN IV PUSH 03/15/17 15:15 (Glucagon Inj) 1 mg UNSCH PRN OTHER 03/15/17 15:15 (Cordarone) 400 mg BID PO 03/16/17 21:00 04/04/17 08:19 (Trandate Inj) 20 mg Q2H PRN IV 03/19/17 12:00 03/28/17 14:06 Diltiazem HCl 125 mg/Sodium Chloride 125 ml @ 5 mls/hr TITRATE PRN IV 03/21/17 07:45 03/23/17 20:51 (Cardizem) 60 mg Q6HR PO 03/22/17 18:00 04/04/17 05:40 (Levaquin) 750 mg Q48H PO 03/25/17 10:00 04/04/17 23:00 04/04/17 08:19 (Mag-Al Plus Susp Liq) 20 ml Q6H PRN PO 03/25/17 19:30 03/26/17 09:48 (Pepcid) 10 mg BID PO 03/26/17 21:00 04/04/17 08:19 (Tears Naturale Opth Soln) 1 drop TID PRN EACH EYE 03/26/17 09:45 (Lactulose Liq) 30 ml DAILY PRN NG 03/26/17 10:15 (Tylenol) 650 mg Q6H PRN PO 03/26/17 12:45 04/03/17 07:59 (Orland 5-325 Mg) 1 tab Q4H PRN PO 03/26/17 16:45 03/26/17 20:51 (Ecotrin Ec) 162 mg DAILY PO 03/27/17 09:00 04/04/17 08:18 Miscellaneous Information 1 Q361D XX 03/26/17 21:30 03/26/17 21:30 (Levemir Inj) 5 units Q12HR SQ 03/27/17 21:00 04/04/17 08:35 (NovoLOG SUPPLEMENTAL SCALE) 1 ACHS SLIDING SCALE SQ 03/27/17 12:00 04/03/17 21:01 Potassium Chloride 100 ml @ 25 mls/hr UNSCH PRN IV 03/30/17 05:15 04/02/17 05:55 (Xanax) 0.5 mg Q8H PRN PO 03/30/17 14:15 (Fleets Enema (Adult)) 133 ml UNSCH PRN RECTAL 03/31/17 09:30 (Bumex Inj) 1 mg Q12H IV PUSH 04/01/17 21:00 04/04/17 08:21 (Restoril) 15 mg HS PRN PO 04/02/17 08:30 (Xarelto) 15 mg BID PO 04/03/17 09:00 04/03/17 22:41 (Albuterol Neb) 2.5 mg Q6HR WHILE AWAKE NEB NEB 04/03/17 10:00 04/03/17 21:38 (PROzac) 20 mg DAILY PO 04/03/17 12:00 04/04/17 08:18 (Sumit Flor MD, R3) Date of Insertion: Mar 15, 2017 (Sumit Flor MD, R3) A/P Assessment and Plan 71 year old female with a PMH significant for colon cancer s/p chemotherapy, atrial fibrillation on Eliquis, HTN, DM type 2, and MDD who presented to the ED with abdominal pain, nausea and vomiting and was found to have severe sepsis secondary to PNA and pyelonephritis in addition to atrial fibrillation with RVR. She rapidly decompensated into respiratory failure and was intubated on . Patient then improved and was extubated and moved to the [facility]. On 03/29, there was acutely worsened respiratory status, found to have PE on right. Transferred back to [facility]. Improved today, with diuresis and anticoagulation started on Xarelto Discharge Planning she is very weak and debilitated. 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 Case reviewed and discussed with the resident team. Agree with plan of care as discussed with me and documented in the resident note. spoke to Dr Smith and there is a concern for excess weakness. she had a prolonged IMC course and severe sepsis and could have some Neuropathy from that. may have EMGs tomorrow (Lydia Greenberg MD) Problem List: (1) Pulmonary emboli ICD Codes: I26.99 - Other pulmonary embolism without acute cor pulmonale Status: Acute Plan: Continue Therapeutic Xarelto : Acute Hypoxemic respiratory failure originally with her sepsis Pulmonary hypertension Carinal adenopathy Duonebs Q6H scheduled and Q2H when necessary Albuterol 2.5mg q6hr Chest x-ray 03/29 - worsening aeration CTA on 03/28 - small volume PE on right, on therapeutic Lovenox History of pneumonia, possibly redeveloping pneumonia, currently not on antibiotics Currently diuresed with Bumex 1mg IV BID, monitor I's and O's Pulmonary HTN not present on last echo in 03/16 Echo shows EF 55-60%, severe mitral annular calcification with moderate mitral valve stenosis, mildly dilated right atrium, mild to mod aortic valve stenosis, pulmonary arterial pressure 55.2 Breathing on high flow nasal canula Pulmonary embolism on right, small volume: Currently on therapeutic Xarelto 15mg twice a day improving with diuresis and anticoagulation (2) Atrial fibrillation with rapid ventricular response ICD Codes: I48.91 - Atrial fibrillation with rapid ventricular response Status: Resolved Plan: Amiodarone 400mg PO BID. labetalol when necessary for hypertension. Cardizem drip restarted for afib with RVR, rate was in 130-140's. Now down to 80s Last echo 02/05- ejection fraction 55-60%. No RWMA. APA 35 mmHg, TV mild regurg, MV mild regurg 03/16 Echo results as above EPS- Dr. Lubin consulted, has signed off (3) Diabetes mellitus, type II ICD Codes: E11.9 - Type 2 diabetes mellitus Status: Chronic Plan: Diabetes mellitus mid-dose SSI ac and hs Long-acting Levemir at 5 units twice a day, will monitor for hypoglycemia (4) Hypertension ICD Codes: I10 - Essential (primary) hypertension Status: Chronic Plan: on Cardizem (5) Hypothyroidism ICD Codes: E03.9 - Hypothyroidism Status: Acute Plan: Continue Levothyroxine 50 mcgs/day (6) Sepsis due to Gram-negative organism with septic shock ICD Codes: A41.50 - Gram-negative sepsis, unspecified; R65.21 - Severe sepsis with septic shock Status: Resolved Plan: Heme/ID: Septic Shock due to gram negative carmela on admission, better now Community-acquired multilobar pneumonia Pyelonephritis Lactic acidemia Bandemia 03/15 Blood cultures growing Klebsiella pneumoniae 03/15 urine culture growing Klebsiella pneumonia 03/16 sputum culture: No growth to date 2 days legionella and streptococcus antigens negative ID consulted - Dr. Hansen, treat with Levaquin, started 03/25 (dosed every other day, stop date 04/04/17 at 2300). (vanc and cefepime have been discontinued) 03/19: Urine culture: No growth to date 2 Heme- Onc consulted regarding carinal adenopathy lymphadenopathy, patient is S/ P completion of chemotherapy 09/2016. Repeat CT chest in 1-2 months to evaluate mediastinal lymph nodes as outpatient (7) Delirium ICD Codes: R41.0 - Disorientation, unspecified Status: Resolved Plan: AMS-toxic encephalopathy secondary to sepsis originally History of TIA x 2 Major Depressive Disorder 9/22 CT brain-no intracranial abnormality Neurology consulted- Dr. Huff Fluoxetine 20 mg daily delirious with PE now improved (8) Nutrition, metabolism, and development symptoms ICD Codes: R63.8 - Symptoms concerning nutrition, metabolism, and development Status: Acute Plan: History of colon cancer status post chemotherapy and colectomy Abdominal hernia Diabetic Diet Prophylaxis: GI Prophylaxis with famotidine 10 mg BID DVT Prophylaxis: currently therapeutic Xarelto (Sumit Flor MD, R3) Problem Qualifiers (1) Pulmonary emboli: Qualified Codes: I26.99 - Other pulmonary embolism without acute cor pulmonale (2) Diabetes mellitus, type II: Qualified Codes: E11.9 - Type 2 diabetes mellitus without complications; 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
[2017-04-04] MEDS: RIVAROXABAN 15 MG TAB PO SCH ×2 (11:36→21:43)
[2017-04-04] MEDS: ACETAMINOPHEN 325 MG TAB PO PRN (21:39)
[2017-04-05] VITALS (9 sets, daily range): BP systolic 126–155; BP diastolic 67–81; PULSE 68–82; RESP 16–20; TEMP 96.5–98.6; O2SAT 97–100
[2017-04-05] MEDS: DILTIAZEM HCL 60 MG TAB PO SCH ×4 (00:20→17:26)
[2017-04-05] MEDS: CHLORHEXIDINE GLUCONATE 2 % 1 PACK (2 CLOTHS) TOP SCH (00:21)
[2017-04-05] MEDS: LEVOTHYROXINE SODIUM 50 MCG TAB PO SCH (06:36)
[2017-04-05] MEDS: RESP: ALBUTEROL 2.5 MG/3 ML NEB (SCH) NEB ×3 (07:30→20:00)
[2017-04-05] MEDS: INSULIN ASPART SUPPLEMENTAL SCALE SQ SCH ×4 (08:00→21:00)
[2017-04-05] MEDS: RIVAROXABAN 15 MG TAB PO SCH ×2 (09:38→22:15)
[2017-04-05] MEDS: FAMOTIDINE 20 MG TAB PO SCH ×2 (09:38→22:15)
[2017-04-05] MEDS: INSULIN DETEMIR 100 UNITS/ML VIAL SQ SCH ×2 (09:38→22:17)
[2017-04-05] MEDS: AMIODARONE 200 MG TAB PO SCH ×2 (09:39→22:15)
[2017-04-05] MEDS: DOCUSATE SODIUM 50 MG/SENNA 8.6 MG TAB PO SCH ×2 (09:39→21:00)
[2017-04-05] MEDS: FLUoxetine HCL 20 MG CAP PO SCH (09:39)
[2017-04-05] MEDS: PRAVASTATIN SOD 40 MG TAB PO SCH (09:39)
[2017-04-05] MEDS: ASPIRIN EC 81 MG TABEC PO SCH (09:39)
[2017-04-05] MEDS: BUMETANIDE INJ 1 MG/4 ML VIAL IV PUSH SCH ×2 (09:40→22:16)
[2017-04-05] MEDS: SODIUM CHLORIDE 0.9% FLUSH 10 ML FLUSH IV FLUSH SCH ×2 (09:41→22:16)
--- NOTE | 2017-04-05 10:15 | HHI.FPPN ---
Subjective Remarks Patient seen and examined this morning. Afebrile vital signs stable. She is currently on 3 L nasal cannula and has no complaints of shortness of breath. She reports yesterday that she set up once at bedtime, and states that wore her out. She will await physical therapy and work with them today. She is looking forward to getting out of the hospital and into the rehabilitation in order to continue improve her strength. We are awaiting for her to meet the point where she can be transferred to physical therapy, she was able to do 2 hours of physical therapy prior to that transfer. Endorses: None Denies: Fever, chills, nausea, vomiting, shortness of breath, chest pain, headache, abdominal pain, calf pain All other review of symptoms were negative (Sumit Flor MD, R3) Objective Vitals Vital Signs Date Time Temp Pulse Resp B/P (MAP) Pulse Ox O2 Delivery O2 Flow Rate FiO2 04/05/17 07:30 98.6 69 16 155/71 (99) 98 04/05/17 07:30 98 Nasal Cannula 3.00 04/05/17 06:38 81 140/76 (97) 04/05/17 04:00 96.5 73 18 151/74 (99) 99 04/05/17 00:00 96.8 76 20 141/81 (101) 99 04/04/17 20:06 95 Nasal Cannula 3.00 04/04/17 20:00 70 04/04/17 20:00 95.8 71 18 135/72 (93) 99 04/04/17 19:00 95 3.00 04/04/17 17:51 98 Nasal Cannula 3.00 04/04/17 16:00 96.9 80 20 127/74 (91) 98 04/04/17 13:24 96.9 91 20 143/86 (105) 100 04/04/17 12:27 97.8 81 20 140/80 (100) 98 I/O 04/04/17 04/04/17 04/04/17 04/05/17 04/05/17 04/05/17 07:00 15:00 23:00 07:00 15:00 23:00 Intake Total 120 ml 760 ml Output Total 4 ml 1000 ml Balance -4 ml 120 ml -240 ml Intake Oral 120 ml 760 ml Output Urine Total 4 ml 1000 ml # Voids 5 # Bowel Movements 0 0 (Sumit Flor MD, R3) Result Diagram: 04/04/1745 04/04/1745 Imaging Last Impressions Chest X-Ray 04/03/17 Signed Impressions: Service Date/Time: Monday, April 03, 2017 10:35 - CONCLUSION: Cardiomegaly with mild interstitial edema, slightly improved in the interval. Javed Resendez MD FACR Head CT 03/28/17 Signed Impressions: Service Date/Time: March 15:57 - CONCLUSION: 1. The study is degraded by motion artifact. 2. No evidence of hemorrhage or mass effect. Robe Menchaca MD CT Angiography 03/28/17 Signed Impressions: Service Date/Time: March 21:35 - CONCLUSION: 1. Acute small volume pulmonary emboli on the right. 2. Bilateral pulmonary infiltrates , bibasilar atelectasis, and small bilateral pleural effusions. Antonio High Jr., MD Renal Ultrasound 03/16/17 0000 Signed Impressions: Service Date/Time: Thursday, March 16, 2017 11:27 - CONCLUSION: The hydronephrosis has resolved. Urinary bladder is decompressed.. Jose Flores MD Abdomen/Pelvis CT 03/15/17 Signed Impressions: Service Date/Time: Wednesday, March 15, 2017 07:51 - CONCLUSION: 1. Bilateral hydronephrosis with extensive stranding in the perinephric regions greater on the left. 2. Mild circumferential wall thickening within the bladder with mild distention. 3. Postsurgical changes rectosigmoid junction. 4. Small fat containing abdominal wall hernias. Jai Queen MD Objective Remarks GENERAL: Lying in bed, nasal canula at 3 L, no accessory muscle use, awake alert and oriented SKIN: No rashes or lesions HEENT; Normocephalic, no conjunctivitis NECK: Supple, trachea midline. No JVD or lymphadenopathy. CARDIOVASCULAR: Irregularly irregular rate and rhythm with systolic murmur RESPIRATORY: no accessory muscle use,clear, on high flow oxygen GASTROINTESTINAL: Abdomen soft, mildly tender in middle quadrant, Bowel sounds present. No rebound or guarding. MUSCULOSKELETAL: No edema NEURO: Answering simple questions, awake and alert and cooperative. Medications and IVs Current Medications Medications (Trade) Dose Ordered Sig/Chiqui Route Start Time Stop Time Status Last Admin (Synthroid) 50 mcg DAILY@0600 PO 03/16/17 06:00 04/05/17 06:36 (Pravachol) 40 mg DAILY PO 03/16/17 09:00 04/05/17 09:39 (Ativan Inj) 1 mg Q4H PRN IV PUSH 03/15/17 14:00 03/31/17 12:15 (NS Flush) 2 ml UNSCH PRN IV FLUSH 03/15/17 14:30 (NS Flush) 2 ml BID IV FLUSH 03/15/17 21:00 04/05/17 09:41 (Zofran Inj) 4 mg Q6H PRN IV PUSH 03/15/17 14:30 (Duoneb Neb) 1 ampule Q2HR NEB PRN INH 03/15/17 14:30 03/19/17 22:26 (Chlorhexidine 2% Cloth) 3 pack Taper DAILY@04 TOP 03/16/17 04:00 03/12/18 03:59 03/25/17 04:00 (Elsa-Colace) 1 tab BID PO 03/15/17 21:00 04/05/17 09:39 (Milk Of Magnesia Liq) 30 ml Q12H PRN PO 03/15/17 14:30 03/31/17 07:53 (Senokot) 17.2 mg Q12H PRN PO 03/15/17 14:30 04/03/17 17:49 (Dulcolax Supp) 10 mg DAILY PRN RECTAL 03/15/17 14:30 (D50w (Vial) Inj) 50 ml UNSCH PRN IV PUSH 03/15/17 15:15 (Glucagon Inj) 1 mg UNSCH PRN OTHER 03/15/17 15:15 (Cordarone) 400 mg BID PO 03/16/17 21:00 04/05/17 09:39 (Trandate Inj) 20 mg Q2H PRN IV 03/19/17 12:00 03/28/17 14:06 Diltiazem HCl 125 mg/Sodium Chloride 125 ml @ 5 mls/hr TITRATE PRN IV 03/21/17 07:45 03/23/17 20:51 (Cardizem) 60 mg Q6HR PO 03/22/17 18:00 04/05/17 06:37 (Mag-Al Plus Susp Liq) 20 ml Q6H PRN PO 03/25/17 19:30 03/26/17 09:48 (Pepcid) 10 mg BID PO 03/26/17 21:00 04/05/17 09:38 (Tears Naturale Opth Soln) 1 drop TID PRN EACH EYE 03/26/17 09:45 (Lactulose Liq) 30 ml DAILY PRN NG 03/26/17 10:15 (Tylenol) 650 mg Q6H PRN PO 03/26/17 12:45 04/04/17 21:39 (Benoit 5-325 Mg) 1 tab Q4H PRN PO 03/26/17 16:45 03/26/17 20:51 (Ecotrin Ec) 162 mg DAILY PO 03/27/17 09:00 04/05/17 09:39 Miscellaneous Information 1 Q361D XX 03/26/17 21:30 03/26/17 21:30 (Levemir Inj) 5 units Q12HR SQ 03/27/17 21:00 04/05/17 09:38 (NovoLOG SUPPLEMENTAL SCALE) 1 ACHS SLIDING SCALE SQ 03/27/17 12:00 04/04/17 21:00 Potassium Chloride 100 ml @ 25 mls/hr UNSCH PRN IV 03/30/17 05:15 04/02/17 05:55 (Xanax) 0.5 mg Q8H PRN PO 03/30/17 14:15 (Fleets Enema (Adult)) 133 ml UNSCH PRN RECTAL 03/31/17 09:30 (Bumex Inj) 1 mg Q12H IV PUSH 04/01/17 21:00 04/05/17 09:40 (Restoril) 15 mg HS PRN PO 04/02/17 08:30 (Xarelto) 15 mg BID PO 04/03/17 09:00 04/05/17 09:38 (Albuterol Neb) 2.5 mg Q6HR WHILE AWAKE NEB NEB 04/03/17 10:00 04/05/17 07:30 (PROzac) 20 mg DAILY PO 04/03/17 12:00 04/05/17 09:39 (Sumit Flor MD, R3) Date of Insertion: Mar 15, 2017 (Sumit Flor MD, R3) A/P Assessment and Plan 71 year old female with a PMH significant for colon cancer s/p chemotherapy, atrial fibrillation on Eliquis, HTN, DM type 2, and MDD who presented to the ED with abdominal pain, nausea and vomiting and was found to have severe sepsis secondary to PNA and pyelonephritis in addition to atrial fibrillation with RVR. She rapidly decompensated into respiratory failure and was intubated on . Patient then improved and was extubated and moved to the [facility]. On 03/29, there was acutely worsened respiratory status, found to have PE on right. Transferred back to [facility]. Improved today, with diuresis and anticoagulation started on Xarelto Discharge Planning she is very weak and debilitated. 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 Case reviewed and discussed with the resident team. Agree with plan of care as discussed with me and documented in the resident note. she is very motivated to get better and get home. she was moving her legs better in bed today but is still weak overall. her mother had a fall at home so her who is always at her bedside had to go see her at home (Lydia Greenberg MD) Problem List: (1) Pulmonary emboli ICD Codes: I26.99 - Other pulmonary embolism without acute cor pulmonale Status: Acute Plan: Continue Therapeutic Xarelto : Acute Hypoxemic respiratory failure originally with her sepsis Pulmonary hypertension Carinal adenopathy Duonebs Q6H scheduled and Q2H when necessary Albuterol 2.5mg q6hr Chest x-ray 03/29 - worsening aeration CTA on 03/28 - small volume PE on right, on therapeutic Lovenox History of pneumonia, possibly redeveloping pneumonia, currently not on antibiotics Currently diuresed with Bumex 1mg IV BID, monitor I's and O's Pulmonary HTN not present on last echo in 03/16 Echo shows EF 55-60%, severe mitral annular calcification with moderate mitral valve stenosis, mildly dilated right atrium, mild to mod aortic valve stenosis, pulmonary arterial pressure 55.2 Breathing on 2 L nasal cannula Pulmonary embolism on right, small volume: Currently on therapeutic Xarelto 15mg twice a day improving with diuresis and anticoagulation (2) Atrial fibrillation with rapid ventricular response ICD Codes: I48.91 - Atrial fibrillation with rapid ventricular response Status: Resolved Plan: Amiodarone 400mg PO BID. labetalol when necessary for hypertension. Cardizem drip restarted for afib with RVR, rate was in 130-140's. Now down to 80s Last echo 02/05- ejection fraction 55-60%. No RWMA. APA 35 mmHg, TV mild regurg, MV mild regurg 03/16 Echo results as above EPS- Dr. Lubin consulted, has signed off (3) Diabetes mellitus, type II ICD Codes: E11.9 - Type 2 diabetes mellitus Status: Chronic Plan: Diabetes mellitus mid-dose SSI ac and hs Long-acting Levemir at 5 units twice a day, will monitor for hypoglycemia (4) Hypertension ICD Codes: I10 - Essential (primary) hypertension Status: Chronic Plan: on Cardizem (5) Hypothyroidism ICD Codes: E03.9 - Hypothyroidism Status: Acute Plan: Continue Levothyroxine 50 mcgs/day (6) Sepsis due to Gram-negative organism with septic shock ICD Codes: A41.50 - Gram-negative sepsis, unspecified; R65.21 - Severe sepsis with septic shock Status: Resolved Plan: Heme/ID: Septic Shock due to gram negative carmela on admission, better now Community-acquired multilobar pneumonia Pyelonephritis Lactic acidemia Bandemia 03/15 Blood cultures growing Klebsiella pneumoniae 03/15 urine culture growing Klebsiella pneumonia 03/16 sputum culture: No growth to date 2 days legionella and streptococcus antigens negative ID consulted - Dr. Hansen, treat with Levaquin, started 03/25 (dosed every other day, stop date 04/04/17 at 2300). (vanc and cefepime have been discontinued) 03/19: Urine culture: No growth to date 2 Heme- Onc consulted regarding carinal adenopathy lymphadenopathy, patient is S/ P completion of chemotherapy 09/2016. Repeat CT chest in 1-2 months to evaluate mediastinal lymph nodes as outpatient (7) Depression ICD Codes: F32.9 - Depression Status: Chronic Plan: History of TIA x 2 Major Depressive Disorder 03/15 CT brain-no intracranial abnormality Neurology consulted- Dr. Huff Fluoxetine 20 mg daily delirious with PE now improved (8) Nutrition, metabolism, and development symptoms ICD Codes: R63.8 - Symptoms concerning nutrition, metabolism, and development Status: Acute Plan: History of colon cancer status post chemotherapy and colectomy Abdominal hernia Diabetic Diet Prophylaxis: GI Prophylaxis with famotidine 10 mg BID DVT Prophylaxis: currently therapeutic Xarelto Will obtain labs every third day (Sumit Flor MD, R3) Problem Qualifiers (1) Pulmonary emboli: Qualified Codes: I26.99 - Other pulmonary embolism without acute cor pulmonale (2) Diabetes mellitus, type II: Qualified Codes: E11.9 - Type 2 diabetes mellitus without complications; 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
[2017-04-06] VITALS (8 sets, daily range): BP systolic 123–162; BP diastolic 64–74; PULSE 71–98; RESP 16–22; TEMP 95.3–97.7; O2SAT 94–99
[2017-04-06] MEDS: DILTIAZEM HCL 60 MG TAB PO SCH ×4 (00:25→17:06)
[2017-04-06] MEDS: CHLORHEXIDINE GLUCONATE 2 % 1 PACK (2 CLOTHS) TOP SCH ×2 (04:00→20:38)
[2017-04-06] MEDS: LEVOTHYROXINE SODIUM 50 MCG TAB PO SCH (06:10)
[2017-04-06] MEDS: INSULIN ASPART SUPPLEMENTAL SCALE SQ SCH ×4 (08:00→20:37)
[2017-04-06] MEDS: DOCUSATE SODIUM 50 MG/SENNA 8.6 MG TAB PO SCH ×2 (09:00→20:36)
--- NOTE | 2017-04-06 09:17 | HHI.FPPN ---
Subjective Remarks Ms Marroquin is feeling better today. She is very motivated and wants to get home [place]. She is realizing how weak she is. Her monitoring tech shows a fib at a controlled rate so will D/C. Will also encourage her to get out of bed more as she needs to be able to exercise more before she can go to [place]. Objective Vitals Vital Signs Date Time Temp Pulse Resp B/P (MAP) Pulse Ox O2 Delivery O2 Flow Rate FiO2 04/06/17 08:00 95.3 73 22 162/74 (103) 99 04/06/17 06:47 96.7 71 20 135/67 (89) 97 04/06/17 06:07 98 150/72 (98) 94 04/05/17 23:44 96.8 76 20 149/74 (99) 97 04/05/17 20:00 97.1 68 20 129/67 (87) 100 04/05/17 20:00 72 04/05/17 19:00 98 Nasal Cannula 2.00 04/05/17 15:23 97.1 79 16 126/68 (87) 97 04/05/17 14:27 76 04/05/17 11:15 97.1 82 20 145/71 (95) 97 I/O 04/05/17 04/05/17 04/05/17 04/06/17 04/06/17 04/06/17 07:00 15:00 23:00 07:00 15:00 23:00 # Voids 5 4 Result Diagram: 04/04/17 0545 04/04/17 0545 Objective Remarks GENERAL: Lying in bed, nasal canula at 3 L, no accessory muscle use, awake alert and oriented SKIN: No rashes or lesions HEENT; Normocephalic, no conjunctivitis NECK: Supple, trachea midline. No JVD or lymphadenopathy. CARDIOVASCULAR: Irregularly irregular rate and rhythm with systolic murmur RESPIRATORY: no accessory muscle use,clear, on nasal canula GASTROINTESTINAL: Abdomen soft, mildly tender in middle quadrant, Bowel sounds present. No rebound or guarding. MUSCULOSKELETAL: No edema NEURO: back to her norm with being alert and motivated Date of Insertion: Mar 15, 2017 A/P Assessment and Plan 71 year old female with a PMH significant for colon cancer s/p chemotherapy, atrial fibrillation on Eliquis, HTN, DM type 2, and MDD who presented to the ED with abdominal pain, nausea and vomiting and was found to have severe sepsis secondary to PNA and pyelonephritis in addition to atrial fibrillation with RVR. She rapidly decompensated into respiratory failure and was intubated on . Patient then improved and was extubated and moved to the [facility]. On 03/29, there was acutely worsened respiratory status, found to have PE on right. Transferred back to [facility]. Improved today, with diuresis and anticoagulation started on Xarelto Discharge Planning she is very weak and debilitated. 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 Problem List: (1) Pulmonary emboli ICD Codes: I26.99 - Other pulmonary embolism without acute cor pulmonale Status: Acute Plan: Continue Therapeutic Xarelto : Acute Hypoxemic respiratory failure originally with her sepsis Pulmonary hypertension Carinal adenopathy Duonebs Q6H scheduled and Q2H when necessary, not wheezing now Albuterol 2.5mg q6hr Chest x-ray 03/29 - worsening aeration CTA on 03/28 - small volume PE on right, on therapeutic Lovenox Currently diuresed with Bumex 1mg po BID, monitor I's and O's Pulmonary HTN not present on last echo in 03/16 Echo shows EF 55-60%, severe mitral annular calcification with moderate mitral valve stenosis, mildly dilated right atrium, mild to mod aortic valve stenosis, pulmonary arterial pressure 55.2 Breathing on 2 L nasal cannula Pulmonary embolism on right, small volume: Currently on therapeutic Xarelto 15mg twice a day improving with diuresis and anticoagulation (2) Atrial fibrillation with rapid ventricular response ICD Codes: I48.91 - Atrial fibrillation with rapid ventricular response Status: Resolved Plan: Amiodarone 400mg PO BID. labetalol when necessary for hypertension. Cardizem drip restarted for afib with RVR, rate was in 130-140's. Now down to 80s. po meds only at this point. may need decrease in amiodarone per Cardiology can ask them down the road Last echo 02/05- ejection fraction 55-60%. No RWMA. APA 35 mmHg, TV mild regurg, MV mild regurg 03/16 Echo results as above EPS- Dr. Lubin consulted, has signed off (3) Diabetes mellitus, type II ICD Codes: E11.9 - Type 2 diabetes mellitus Status: Chronic Plan: Diabetes mellitus mid-dose SSI ac and hs Long-acting Levemir at 5 units twice a day, will monitor for hypoglycemia (4) Hypertension ICD Codes: I10 - Essential (primary) hypertension Status: Chronic Plan: on Cardizem (5) Hypothyroidism ICD Codes: E03.9 - Hypothyroidism Status: Acute Plan: Continue Levothyroxine 50 mcgs/day (6) Sepsis due to Gram-negative organism with septic shock ICD Codes: A41.50 - Gram-negative sepsis, unspecified; R65.21 - Severe sepsis with septic shock Status: Resolved Plan: Heme/ID: Septic Shock due to gram negative carmela on admission, better now Community-acquired multilobar pneumonia Pyelonephritis Lactic acidemia Bandemia 03/15 Blood cultures growing Klebsiella pneumoniae 03/15 urine culture growing Klebsiella pneumonia 03/16 sputum culture: No growth to date 2 days legionella and streptococcus antigens negative ID consulted - Dr. Hansen, treat with Levaquin, started 03/25 (dosed every other day, stop date 04/04/17 at 2300). (vanc and cefepime have been discontinued) 03/19: Urine culture: No growth to date 2 Heme- Onc consulted regarding carinal adenopathy lymphadenopathy, patient is S/ P completion of chemotherapy 09/2016. Repeat CT chest in 1-2 months to evaluate mediastinal lymph nodes as outpatient (7) Depression ICD Codes: F32.9 - Depression Status: Chronic Plan: History of TIA x 2 Major Depressive Disorder 03/15 CT brain-no intracranial abnormality Neurology consulted- Dr. Huff Fluoxetine 20 mg daily delirious with PE now improved (8) Nutrition, metabolism, and development symptoms ICD Codes: R63.8 - Symptoms concerning nutrition, metabolism, and development Status: Acute Plan: History of colon cancer status post chemotherapy and colectomy Abdominal hernia Diabetic Diet Prophylaxis: GI Prophylaxis with famotidine 10 mg BID DVT Prophylaxis: currently therapeutic Xarelto Will obtain labs every third day or so Problem Qualifiers (1) Pulmonary emboli: Qualified Codes: I26.99 - Other pulmonary embolism without acute cor pulmonale (2) Diabetes mellitus, type II: Qualified Codes: E11.9 - Type 2 diabetes mellitus without complications; Z79.4 - detention (current) use of insulin (3) Hypertension: Qualified Codes: I10 - Essential (primary) hypertension (4) Hypothyroidism: Qualified Codes: E03.9 - Hypothyroidism, unspecified (5) Depression: Qualified Codes: F33.41 - Major depressive disorder, recurrent, in partial remission Lydia Greenberg MD Apr 06, 2017 09:17
[2017-04-06] MEDS: RESP: ALBUTEROL 2.5 MG/3 ML NEB (SCH) NEB ×3 (09:23→20:00)
[2017-04-06] MEDS: INSULIN DETEMIR 100 UNITS/ML VIAL SQ SCH ×2 (09:34→20:37)
[2017-04-06] MEDS: FAMOTIDINE 20 MG TAB PO SCH ×2 (09:36→20:36)
[2017-04-06] MEDS: ASPIRIN EC 81 MG TABEC PO SCH (09:36)
[2017-04-06] MEDS: RIVAROXABAN 15 MG TAB PO SCH ×2 (09:36→20:36)
[2017-04-06] MEDS: AMIODARONE 200 MG TAB PO SCH ×2 (09:37→20:36)
[2017-04-06] MEDS: PRAVASTATIN SOD 40 MG TAB PO SCH (09:37)
[2017-04-06] MEDS: FLUoxetine HCL 20 MG CAP PO SCH (09:37)
[2017-04-06] MEDS: SODIUM CHLORIDE 0.9% FLUSH 10 ML FLUSH IV FLUSH SCH ×2 (09:38→20:36)
[2017-04-06] MEDS: BUMETANIDE 1 MG TAB PO SCH (17:06)
[2017-04-07] VITALS: BP 122/59; PULSE 80; RESP 20; TEMP 97.1; O2SAT 95
[2017-04-07] MEDS: DILTIAZEM HCL 60 MG TAB PO SCH ×4 (00:26→17:23)
[2017-04-07] MEDS: LEVOTHYROXINE SODIUM 50 MCG TAB PO SCH (06:28)
[2017-04-07 08:00] VITALS: BP 157/70; PULSE 85; RESP 17; TEMP 97; O2SAT 97
[2017-04-07] MEDS: RESP: ALBUTEROL 2.5 MG/3 ML NEB (SCH) NEB (08:00)
[2017-04-07] MEDS: DOCUSATE SODIUM 50 MG/SENNA 8.6 MG TAB PO SCH ×2 (09:00→21:00)
[2017-04-07] MEDS: INSULIN DETEMIR 100 UNITS/ML VIAL SQ SCH ×2 (09:07→22:33)
[2017-04-07] MEDS: INSULIN ASPART SUPPLEMENTAL SCALE SQ SCH ×4 (09:07→22:34)
[2017-04-07] MEDS: ASPIRIN EC 81 MG TABEC PO SCH (09:08)
[2017-04-07] MEDS: AMIODARONE 200 MG TAB PO SCH ×2 (09:08→22:33)
[2017-04-07] MEDS: FAMOTIDINE 20 MG TAB PO SCH ×2 (09:08→22:33)
[2017-04-07] MEDS: PRAVASTATIN SOD 40 MG TAB PO SCH (09:08)
[2017-04-07] MEDS: FLUoxetine HCL 20 MG CAP PO SCH (09:09)
[2017-04-07] MEDS: SODIUM CHLORIDE 0.9% FLUSH 10 ML FLUSH IV FLUSH SCH ×2 (09:09→22:32)
[2017-04-07] MEDS: RIVAROXABAN 15 MG TAB PO SCH ×2 (09:09→22:32)
[2017-04-07] MEDS: BUMETANIDE 1 MG TAB PO SCH ×2 (09:09→17:23)
--- NOTE | 2017-04-07 09:57 | HHI.FPPN ---
Subjective Remarks Patient seen and examined this morning. Afebrile vital signs stable. Patient has continued to working towards getting to [facility]. She understands her need to be able to do 2 hours of physical therapy. She'll be working in the bed into chair as much as possible. She had a bout of urination with some blood clots. We'll order a urinalysis. This is possibly from the long period of Gallo in place. (Sumit Flor MD, R3) Objective Vitals Vital Signs Date Time Temp Pulse Resp B/P (MAP) Pulse Ox O2 Delivery O2 Flow Rate FiO2 04/07/17 08:00 97.0 85 17 157/70 (99) 97 04/07/17 00:00 97.1 80 20 122/59 (80) 95 04/06/17 21:11 98 Nasal Cannula 2.00 04/06/17 20:30 Nasal Cannula 3.00 04/06/17 20:00 97.0 75 20 123/70 (87) 98 04/06/17 16:00 97.7 81 16 141/64 (89) 98 04/06/17 12:00 97.7 80 18 135/67 (89) 96 I/O 04/06/17 04/06/17 04/06/17 04/07/17 04/07/17 04/07/17 07:00 15:00 23:00 07:00 15:00 23:00 Intake Total 1820 ml Output Total 1100 ml Balance 720 ml Intake Oral 1820 ml Output Urine Total 1100 ml # Voids 4 5 # Bowel Movements 4 (Sumit Flor MD, R3) Result Diagram: 04/04/17 0545 04/04/17 0545 Imaging Last Impressions Chest X-Ray 04/03/17 0000 Signed Impressions: Service Date/Time: Monday, April 03, 2017 10:35 - CONCLUSION: Cardiomegaly with mild interstitial edema, slightly improved in the interval. Javed Resendez MD FACR Head CT 03/28/17 Signed Impressions: Service Date/Time: March 15:57 - CONCLUSION: 1. The study is degraded by motion artifact. 2. No evidence of hemorrhage or mass effect. Robe Menchaca MD CT Angiography 03/28/17 Signed Impressions: Service Date/Time: March 21:35 - CONCLUSION: 1. Acute small volume pulmonary emboli on the right. 2. Bilateral pulmonary infiltrates , bibasilar atelectasis, and small bilateral pleural effusions. Antonio High Jr., MD Renal Ultrasound 03/16/17 0000 Signed Impressions: Service Date/Time: Thursday, March 16, 2017 11:27 - CONCLUSION: The hydronephrosis has resolved. Urinary bladder is decompressed.. Jose Flores MD Abdomen/Pelvis CT 03/15/17 0000 Signed Impressions: Service Date/Time: Wednesday, March 15, 2017 07:51 - CONCLUSION: 1. Bilateral hydronephrosis with extensive stranding in the perinephric regions greater on the left. 2. Mild circumferential wall thickening within the bladder with mild distention. 3. Postsurgical changes rectosigmoid junction. 4. Small fat containing abdominal wall hernias. Jai Queen MD Objective Remarks GENERAL: Lying in bed, nasal canula at 2 L, no accessory muscle use, awake alert and oriented SKIN: No rashes or lesions HEENT; Normocephalic, no conjunctivitis NECK: Supple, trachea midline. No JVD or lymphadenopathy. CARDIOVASCULAR: Irregularly irregular rate and rhythm with systolic murmur RESPIRATORY: no accessory muscle use,clear, on nasal canula GASTROINTESTINAL: Abdomen soft, mildly tender in middle quadrant, Bowel sounds present. No rebound or guarding. MUSCULOSKELETAL: No edema NEURO: back to her norm with being alert and motivated Medications and IVs Current Medications Medications (Trade) Dose Ordered Sig/Chiqui Route Start Time Stop Time Status Last Admin (Synthroid) 50 mcg DAILY@0600 PO 03/16/17 06:00 04/07/17 06:28 (Pravachol) 40 mg DAILY PO 03/16/17 09:00 04/07/17 09:08 (Ativan Inj) 1 mg Q4H PRN IV PUSH 03/15/17 14:00 03/31/17 12:15 (NS Flush) 2 ml UNSCH PRN IV FLUSH 03/15/17 14:30 (NS Flush) 2 ml BID IV FLUSH 03/15/17 21:00 04/07/17 09:09 (Zofran Inj) 4 mg Q6H PRN IV PUSH 03/15/17 14:30 (Duoneb Neb) 1 ampule Q2HR NEB PRN INH 03/15/17 14:30 03/19/17 22:26 (Chlorhexidine 2% Cloth) 3 pack Taper DAILY@04 TOP 03/16/17 04:00 03/12/18 03:59 03/25/17 04:00 (Elsa-Colace) 1 tab BID PO 03/15/17 21:00 04/06/17 20:36 (Milk Of Magnesia Liq) 30 ml Q12H PRN PO 03/15/17 14:30 03/31/17 07:53 (Senokot) 17.2 mg Q12H PRN PO 03/15/17 14:30 04/03/17 17:49 (Dulcolax Supp) 10 mg DAILY PRN RECTAL 03/15/17 14:30 (D50w (Vial) Inj) 50 ml UNSCH PRN IV PUSH 03/15/17 15:15 (Glucagon Inj) 1 mg UNSCH PRN OTHER 03/15/17 15:15 (Cordarone) 400 mg BID PO 03/16/17 21:00 04/07/17 09:08 (Trandate Inj) 20 mg Q2H PRN IV 03/19/17 12:00 03/28/17 14:06 Diltiazem HCl 125 mg/Sodium Chloride 125 ml @ 5 mls/hr TITRATE PRN IV 03/21/17 07:45 03/23/17 20:51 (Cardizem) 60 mg Q6HR PO 03/22/17 18:00 04/07/17 06:28 (Mag-Al Plus Susp Liq) 20 ml Q6H PRN PO 03/25/17 19:30 03/26/17 09:48 (Pepcid) 10 mg BID PO 03/26/17 21:00 04/07/17 09:08 (Tears Naturale Opth Soln) 1 drop TID PRN EACH EYE 03/26/17 09:45 (Lactulose Liq) 30 ml DAILY PRN NG 03/26/17 10:15 (Tylenol) 650 mg Q6H PRN PO 03/26/17 12:45 04/04/17 21:39 (Orono 5-325 Mg) 1 tab Q4H PRN PO 03/26/17 16:45 03/26/17 20:51 (Ecotrin Ec) 162 mg DAILY PO 03/27/17 09:00 04/07/17 09:08 Miscellaneous Information 1 Q361D XX 03/26/17 21:30 03/26/17 21:30 (Levemir Inj) 5 units Q12HR SQ 03/27/17 21:00 04/07/17 09:07 (NovoLOG SUPPLEMENTAL SCALE) 1 ACHS SLIDING SCALE SQ 03/27/17 12:00 04/07/17 09:07 (Xanax) 0.5 mg Q8H PRN PO 03/30/17 14:15 (Fleets Enema (Adult)) 133 ml UNSCH PRN RECTAL 03/31/17 09:30 (Restoril) 15 mg HS PRN PO 04/02/17 08:30 (Xarelto) 15 mg BID PO 04/03/17 09:00 04/07/17 09:09 (PROzac) 20 mg DAILY PO 04/03/17 12:00 04/07/17 09:09 (Bumetanide) 1 mg BID@18 PO 04/06/17 18:00 04/07/17 09:09 (Sumit Flor MD, R3) Date of Insertion: Mar 15, 2017 (Sumit Flor MD, R3) A/P Assessment and Plan 71 year old female with a PMH significant for colon cancer s/p chemotherapy, atrial fibrillation on Eliquis, HTN, DM type 2, and MDD who presented to the ED with abdominal pain, nausea and vomiting and was found to have severe sepsis secondary to PNA and pyelonephritis in addition to atrial fibrillation with RVR. She rapidly decompensated into respiratory failure and was intubated on . Patient then improved and was extubated and moved to the [facility]. On 03/29, there was acutely worsened respiratory status, found to have PE on right. Transferred back to [facility]. Improved today, with diuresis and anticoagulation started on Xarelto Discharge Planning she is very weak and debilitated. 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 Case reviewed and discussed with the resident team. Agree with plan of care as discussed with me and documented in the resident note. agree with checking U/A. She is on anticoagulants and will have a CBC tomorrow. Consider removing line from port tomorrow to decrease infection risk. (Lydia Greenberg MD) Problem List: (1) Pulmonary emboli ICD Codes: I26.99 - Other pulmonary embolism without acute cor pulmonale Status: Acute Plan: Continue Therapeutic Xarelto : Acute Hypoxemic respiratory failure originally with her sepsis Pulmonary hypertension Carinal adenopathy Duonebs Q6H scheduled and Q2H when necessary, not wheezing now Albuterol 2.5mg q6hr Chest x-ray 03/29 - worsening aeration CTA on 03/28 - small volume PE on right, on therapeutic Lovenox Currently diuresed with Bumex 1mg po BID, monitor I's and O's Pulmonary HTN not present on last echo in 2014, 03/16 Echo shows EF 55-60%, severe mitral annular calcification with moderate mitral valve stenosis, mildly dilated right atrium, mild to mod aortic valve stenosis, pulmonary arterial pressure 55.2 Breathing on 2 L nasal cannula Pulmonary embolism on right, small volume: Currently on therapeutic Xarelto 15mg twice a day (2) Atrial fibrillation with rapid ventricular response ICD Codes: I48.91 - Atrial fibrillation with rapid ventricular response Status: Resolved Plan: Amiodarone 400mg PO BID. labetalol when necessary for hypertension. Diltiazem 60 mg every 6 hours by mouth Last echo 02/05- ejection fraction 55-60%. No RWMA. APA 35 mmHg, TV mild regurg, MV mild regurg 03/16 Echo results as above EPS- Dr. Lubin consulted, has signed off (3) Diabetes mellitus, type II ICD Codes: E11.9 - Type 2 diabetes mellitus Status: Chronic Plan: Diabetes mellitus mid-dose SSI ac and hs Long-acting Levemir at 5 units twice a day, will monitor for hypoglycemia (4) Hypertension ICD Codes: I10 - Essential (primary) hypertension Status: Chronic Plan: Continue diltiazem 60 mg every 6 hours. (5) Hypothyroidism ICD Codes: E03.9 - Hypothyroidism Status: Acute Plan: Continue Levothyroxine 50 mcgs/day (6) Sepsis due to Gram-negative organism with septic shock ICD Codes: A41.50 - Gram-negative sepsis, unspecified; R65.21 - Severe sepsis with septic shock Status: Resolved Plan: Heme/ID: Septic Shock due to gram negative carmela on admission, better now Community-acquired multilobar pneumonia Pyelonephritis Lactic acidemia Bandemia 03/15 Blood cultures growing Klebsiella pneumoniae 03/15 urine culture growing Klebsiella pneumonia 03/16 sputum culture: No growth to date 2 days legionella and streptococcus antigens negative ID consulted - Dr. Hansen, treat with Levaquin, started 03/25 (dosed every other day, stop date 04/04/17 at 2300). (vanc and cefepime have been discontinued) 03/19: Urine culture: No growth to date 2 Heme- Onc consulted regarding carinal adenopathy lymphadenopathy, patient is S/ P completion of chemotherapy 09/2016. Repeat CT chest in 1-2 months to evaluate mediastinal lymph nodes as outpatient (7) Depression ICD Codes: F32.9 - Depression Status: Chronic Plan: History of TIA x 2 Major Depressive Disorder 03/15 CT brain-no intracranial abnormality Neurology consulted- Dr. Huff Fluoxetine 20 mg daily delirious with PE now improved (8) Nutrition, metabolism, and development symptoms ICD Codes: R63.8 - Symptoms concerning nutrition, metabolism, and development Status: Acute Plan: History of colon cancer status post chemotherapy and colectomy Abdominal hernia Diabetic Diet Prophylaxis: GI Prophylaxis with famotidine 10 mg BID DVT Prophylaxis: currently therapeutic Xarelto Will obtain labs every third day or so (Sumit Flor MD, R3) Problem Qualifiers (1) Pulmonary emboli: Qualified Codes: I26.99 - Other pulmonary embolism without acute cor pulmonale (2) Diabetes mellitus, type II: Qualified Codes: E11.9 - Type 2 diabetes mellitus without complications; Z79.4 - snf (current) use of insulin (3) Hypertension: Qualified Codes: I10 - Essential (primary) hypertension (4) Hypothyroidism: Qualified Codes: E03.9 - Hypothyroidism, unspecified (5) Depression: Qualified Codes: F33.41 - Major depressive disorder, recurrent, in partial remission Sumit Flor MD, R3 Apr 07, 2017 09:57 Lydia Greenberg MD Apr 07, 2017 13:10
--- NOTE | 2017-04-07 10:00 | HHI.FPPN ---
Addendum to progress note ADDENDUM Reason for addendum: Additonal documentation Additional information OFF Service Note Patient was admitted on 03/15/17 for severe sepsis due to pyelonephritis and pneumonia. Patient was intubated and required a very lengthy stay in the ICU requiring multiple antibiotics. She slowly improved progressively improved and was able to be moved out of the ICU. No on prophylactic anticoagulation she subsequently developed a PE required another stent in the ICU. She progressively improved and was able to transition to therapeutic Xarelto and moved out of the ICU. She continues to be very weak from muscular degeneration from her very long course in the ICU. She has been accepted to [facility] but will require the ability to do at least 2 hours of physical therapy prior to transfer. The patient is still slowly progressing to the point where she can do the physical therapy necessary for the transfer. Sumit Flor MD, R3 Apr 07, 2017 10:00
[2017-04-07 10:32] LABS: BACTERIA, URINE MANY /hpf; BLOOD, URINE LARGE (NEG); COMMENT (UR) CULTURE INDICATED; CULTURE IF INDICATED CULTURE INDICATED; GLUCOSE,URINE NEG (NEG); KETONE, URINE NEG (NEG); MUCUS URINE FEW /lpf (OCC); NITRITE,URINE NEG (NEG); PH, URINE 7.5 (5.0-8.5); SQUAMOUS EPITHELIAL CELL URINE 2 /hpf (0-5); URINE COLOR RED (YELLW/STRAW)
[2017-04-07 12:00] VITALS: BP 112/69; PULSE 88; RESP 18; TEMP 97.2; O2SAT 95
[2017-04-07 16:00] VITALS: BP 154/69; PULSE 89; RESP 20; TEMP 97.2; O2SAT 97
[2017-04-07 18:03] VITALS: O2SAT 97
[2017-04-07 20:00] VITALS: BP 140/69; PULSE 68; RESP 18; TEMP 97.7; O2SAT 98
[2017-04-07] MEDS: CHLORHEXIDINE GLUCONATE 2 % 1 PACK (2 CLOTHS) TOP SCH (22:34)
[2017-04-08] VITALS: BP 131/64; PULSE 78; RESP 22; TEMP 97.4; O2SAT 96
[2017-04-08] MEDS: DILTIAZEM HCL 60 MG TAB PO SCH ×2 (06:05)
[2017-04-08] MEDS: LEVOTHYROXINE SODIUM 50 MCG TAB PO SCH (06:06)
[2017-04-08 06:35] LABS: HEMATOCRIT 29.3 % (35.0-46.0); MEAN CELL VOLUME 87.7 FL (80.0-100.0); MEAN CORPUSCULAR HEMOGLOBIN 29.7 PG (27.0-34.0); MEAN CORPUSCULAR HGB CONC 33.8 % (32.0-36.0); PLATELET COUNT 255 TH/MM3 (150-450); RED BLOOD COUNT 3.34 MIL/MM3 (4.00-5.30); RED CELL DISTRIBUTION WIDTH 14.7 % (11.6-17.2); REVIEW FLAG FINAL; WHITE BLOOD COUNT 6.9 TH/MM3 (4.0-11.0)
[2017-04-08 07:11] LABS: BICARBONATE 26.9 MEQ/L (21.0-32.0)
[2017-04-08 07:23] LABS: POTASSIUM 2.6 MEQ/L (3.5-5.1)
[2017-04-08 08:00] VITALS: BP 131/61; PULSE 75; RESP 17; TEMP 97.6; O2SAT 97
[2017-04-08] MEDS ORDERED: POTASSIUM CHLORIDE 20 MEQ CONTROLLED RELEASE TAB PO ONE (08:15)
[2017-04-08] MEDS: SODIUM CHLORIDE 0.9% FLUSH 10 ML FLUSH IV FLUSH SCH (08:34)
[2017-04-08] MEDS: BUMETANIDE 1 MG TAB PO SCH (08:34)
[2017-04-08] MEDS: AMIODARONE 200 MG TAB PO SCH (08:34)
[2017-04-08] MEDS: ASPIRIN EC 81 MG TABEC PO SCH (08:34)
[2017-04-08] MEDS: DOCUSATE SODIUM 50 MG/SENNA 8.6 MG TAB PO SCH (08:35)
[2017-04-08] MEDS: FLUoxetine HCL 20 MG CAP PO SCH (08:35)
[2017-04-08] MEDS: RIVAROXABAN 15 MG TAB PO SCH (08:35)
[2017-04-08] MEDS: FAMOTIDINE 20 MG TAB PO SCH (08:35)
[2017-04-08] MEDS: PRAVASTATIN SOD 40 MG TAB PO SCH (08:35)
[2017-04-08] MEDS: INSULIN ASPART SUPPLEMENTAL SCALE SQ SCH ×2 (08:35→13:18)
[2017-04-08] MEDS: INSULIN DETEMIR 100 UNITS/ML VIAL SQ SCH (08:36)
--- NOTE | 2017-04-08 08:49 | HHI.FPPN ---
Subjective Remarks No acute events overnight. She sat in a chair for two hours. She continues to have significant lower extremity weakness bilaterally. Her arms are getting stronger. She is complaining of constipation. She reports no pain. She has no shortness of breath. She has no calf tenderness. She is eager to get to [facility]. She has a good appetite and is trying to improve her nutrition status. She is not having any hallucinations. (Robe Ware MD R3) Objective Vitals Vital Signs Date Time Temp Pulse Resp B/P (MAP) Pulse Ox O2 Delivery O2 Flow Rate FiO2 04/08/17 00:00 97.4 78 22 131/64 (86) 96 04/07/17 20:00 97.7 68 18 140/69 (92) 98 04/07/17 18:03 97 Nasal Cannula 2.00 04/07/17 16:00 97.2 89 20 154/69 (97) 97 04/07/17 12:00 97.2 88 18 112/69 (83) 95 I/O 04/07/17 04/07/17 04/07/17 04/08/17 04/08/17 04/08/17 07:00 15:00 23:00 07:00 15:00 23:00 Intake Total 1600 ml 240 ml Output Total 800 ml 250 ml Balance 800 ml -10 ml Intake Oral 1600 ml 240 ml Output Urine Total 800 ml 250 ml # Voids 4 2 # Bowel Movements 0 2 (Robe Ware MD R3) Result Diagram: 04/08/17 0600 04/08/17 0600 Objective Remarks GENERAL: Sitting up in bed, no distress SKIN: Has stage 1 decubitus ulcer located on the lower back, on specialty bed for ulcers HEENT; Normocephalic, no conjunctivitis, no nasal discharge CARDIOVASCULAR: RRR, has systolic ejection murmur 3/6 RESPIRATORY: Clear to auscultation bilaterally GASTROINTESTINAL: Abdomen soft, nontender, normal bowel sounds MUSCULOSKELETAL: Improved range of motion. Some atrophy of lower extremities. NEURO: Has 4/5 strength lower extremities, 5/5 upper extremities. Psych: Appears motivated this morning, wants to make it to [facility] (Robe Ware MD R3) Date of Insertion: Mar 15, 2017 (Robe Ware MD R3) A/P Assessment and Plan 71 year old female with a PMH significant for colon cancer s/p chemotherapy, atrial fibrillation on Eliquis, HTN, DM type 2, and MDD who presented to the ED with abdominal pain, nausea and vomiting and was found to have severe sepsis secondary to PNA and pyelonephritis in addition to atrial fibrillation with RVR. She rapidly decompensated into respiratory failure and was intubated on . Patient then improved and was extubated and moved to the [facility]. On 03/29, there was acutely worsened respiratory status, found to have PE on right. Transferred back to [facility]. Now significantly improved and back on medical floor, working in gaining strength and function in order to be transferred to [facility]. Discharge Planning Plan is to discharge to [facility] for inpatient rehabilitation today. (Robe Ware MD R3) Attending Attestation Patient seen and examined. Case reviewed and discussed with the resident team. Agree with plan of care as discussed with me and documented in the resident note. so happy that she has improved enough to go to [facility]! She is very motivated to get stronger and go home (Lydia Greenberg MD) Problem List: (1) Physical deconditioning ICD Codes: R53.81 - Other malaise Status: Acute Plan: Significantly deconditioned after prolonged hospital stay. - Has been working with PT/OT - Was able to sit in chair for 2 hours - Improved function of upper extremities, working on lower extremities - Will plan to discharge to [facility] today for inpatient rehabilitation. (2) Pulmonary emboli ICD Codes: I26.99 - Other pulmonary embolism without acute cor pulmonale Status: Acute Plan: Developed pulmonary emboli, small volume on the right. Hemodynamically stable. - Continue therapeutic Xarelto 15 mg twice per day - Encourage ambulation (3) Atrial fibrillation with rapid ventricular response ICD Codes: I48.91 - Atrial fibrillation with rapid ventricular response Status: Resolved Plan: History of atrial fibrillation with rapid ventricular response. Currently rate controlled. - Amiodarone 400mg PO BID, consider decreasing dose as tolerated - Diltiazem 240 mg extended release qday - Continue Xarelto 15 mg bid (4) Diabetes mellitus, type II ICD Codes: E11.9 - Type 2 diabetes mellitus Status: Chronic Plan: History of diabetes mellitus type II - Long-acting Levemir at 5 units twice a day - Continue medium sliding scale insulin - Monitor blood glucose (5) Hypertension ICD Codes: I10 - Essential (primary) hypertension Status: Chronic Plan: - Continue diltiazem long acting 240 mg daily (6) Hypothyroidism ICD Codes: E03.9 - Hypothyroidism Status: Chronic Plan: Continue Levothyroxine 50 mcgs/day (7) Depression ICD Codes: F32.9 - Depression Status: Chronic Plan: - Fluoxetine 20 mg daily (8) Nutrition, metabolism, and development symptoms ICD Codes: R63.8 - Symptoms concerning nutrition, metabolism, and development Status: Acute Plan: Diabetic Diet DVT Prophylaxis: currently therapeutic Xarelto Hypokalemia: will replace (Robe Ware MD R3) Problem Qualifiers (1) Pulmonary emboli: Qualified Codes: I26.99 - Other pulmonary embolism without acute cor pulmonale (2) Hypothyroidism: Qualified Codes: E03.9 - Hypothyroidism, unspecified Robe Ware MD R3 Apr 08, 2017 08:49 Lydia Greenberg MD Apr 08, 2017 11:39
[2017-04-08 09:21] VITALS: O2SAT 97
--- NOTE | 2017-04-08 10:14 | HHI.DCPOC ---
Discharge Care Plan Diagnosis: (1) Atrial fibrillation (2) Atrial fibrillation with rapid ventricular response (3) Physical deconditioning (4) Pulmonary emboli Goals to Promote Your Health * To prevent worsening of your condition and complications * To maintain your health at the optimal level Directions to Meet Your Goals Take your medications as prescribed Follow your dietary instruction Follow activity as directed Keep your appointments as scheduled Take your immunizations and boosters as scheduled If your symptoms worsen call your PCP, if no PCP go to Urgent Care Center or Emergency Room Smoking is Dangerous to Your Health. Avoid second hand smoke Call the 24-hour hour crisis hotline for domestic abuse at Robe Ware MD R3 Apr 08, 2017 10:14
[2017-04-08] MEDS ORDERED: LEVEMIR SQ (11:32)
[2017-04-08] MEDS ORDERED: AMIO200T PO (11:32)
[2017-04-08] MEDS ORDERED: FLUO20CA12 PO (11:32)
[2017-04-08] MEDS ORDERED: ASPI-99 PO (11:32)
[2017-04-08] MEDS ORDERED: CARD240C6 PO (11:32)
[2017-04-08] MEDS ORDERED: XARE15TA PO (11:32)
[2017-04-08] MEDS ORDERED: PRAV40TA PO (11:32)
[2017-04-08 12:00] VITALS: BP 116/60; PULSE 82; RESP 18; TEMP 98.3; O2SAT 96
[2017-04-08] MEDS ORDERED: DILTIAZEM-CD 240 MG CAP ER PO SCH (12:00)
[2017-04-08 12:38] LABS: MAGNESIUM 1.5 MG/DL (1.5-2.5)
[2017-04-08 12:40] LABS: POTASSIUM 2.9 MEQ/L (3.5-5.1)
[2017-04-08] MEDS ORDERED: POTASSIUM CHLORIDE 10 MEQ CAP PO ONE (13:00)
--- NOTE | 2017-04-08 13:52 | HHI.DS ---
Discharge Summary Admission Date Mar 15, 2017 at 09:42 Discharge Date: Apr 08, 2017 Admitting Diagnosis pyelonephritis, severe sepsis (1) Physical deconditioning Diagnosis: Principal Plan: Significantly deconditioned after prolonged hospital stay. - Has been working with PT/OT - Was able to sit in chair for 2 hours - Improved function of upper extremities, working on lower extremities - Will plan to [facility] today for inpatient rehabilitation. ICD Codes: R53.81 - Other malaise Status: Acute (2) Pulmonary emboli Diagnosis: Principal Plan: Developed pulmonary emboli, small volume on the right. Hemodynamically stable. - Continue therapeutic Xarelto 15 mg twice per day - Encourage ambulation ICD Codes: I26.99 - Other pulmonary embolism without acute cor pulmonale Status: Acute (3) Atrial fibrillation with rapid ventricular response Diagnosis: Principal Plan: History of atrial fibrillation with rapid ventricular response. Currently rate controlled. - Amiodarone 400mg PO BID, consider decreasing dose as tolerated - Diltiazem 240 mg extended release qday - Continue Xarelto 15 mg bid ICD Codes: I48.91 - Atrial fibrillation with rapid ventricular response Status: Resolved (4) Diabetes mellitus, type II Diagnosis: Secondary Plan: History of diabetes mellitus type II - Long-acting Levemir at 5 units twice a day - Continue medium sliding scale insulin - Monitor blood glucose ICD Codes: E11.9 - Type 2 diabetes mellitus Status: Chronic (5) Hypertension Diagnosis: Secondary Plan: - Continue diltiazem long acting 240 mg daily ICD Codes: I10 - Essential (primary) hypertension Status: Chronic (6) Hypothyroidism Diagnosis: Secondary Plan: Continue Levothyroxine 50 mcgs/day ICD Codes: E03.9 - Hypothyroidism Status: Chronic (7) Depression Diagnosis: Secondary Plan: - Fluoxetine 20 mg daily ICD Codes: F32.9 - Depression Status: Chronic (8) Nutrition, metabolism, and development symptoms Diagnosis: Secondary Plan: Diabetic Diet DVT Prophylaxis: currently therapeutic Xarelto Hypokalemia: will replace ICD Codes: R63.8 - Symptoms concerning nutrition, metabolism, and development Status: Acute Consultants Critical care, physical therapy, nephrology, infectious disease, heme-onc Procedures Intubation, mechanical intubation, catheter insertion Brief History Patient is a 71 year old female with a PMH significant for colon cancer s/p chemotherapy, atrial fibrillation on Eliquis, HTN, DM type 2, and MDD who presented to the ED with abdominal pain, nausea and vomiting. She is accompanied by her who contributes to her history. Patient states that she had pain in her left side this morning that radiated to her lower abdomen and caused her to have nausea and vomiting. She states that she has been short of breath for the past 3 weeks and progressively more fatigued. Her states that she has been becoming progressively weaker and sleeping excessively at times. At 3AM this morning, he noticed that she was trying to talk but "wasn 't making any sense." He states that she has been so short of breath that she has been having difficulty finishing sentences without becoming short of breath. She notes dysuria, urinary urgency and frequency for the past 3-4 days. CBC/BMP: 04/08/17 0600 04/08/17 1140 Significant Findings Laboratory Tests Test 04/07/17 08:00 04/08/17 06:00 04/08/17 11:40 Urine Color RED (YELLW/STRAW) Urine Turbidity CLOUDY (CLEAR) Urine Protein 100 mg/dL (NEG-TRACE) Urine Occult Blood LARGE (NEG) Urine Leukocyte Esterase LARGE (NEG) Urine WBC 47 /hpf (0-5) Urine WBC Clumps RARE (NONE) Urine Bacteria MANY /hpf (NONE) Urine Mucus FEW /lpf (OCC) Red Blood Count 3.34 MIL/MM3 (4.00-5.30) Hemoglobin 9.9 GM/DL (11.6-15.3) Hematocrit 29.3 % (35.0-46.0) Random Glucose 206 MG/DL (74-106) Calcium Level 8.1 MG/DL (8.5-10.1) Sodium Level 135 MEQ/L (136-145) Potassium Level 2.6 MEQ/L (3.5-5.1) 2.9 MEQ/L (3.5-5.1) Estimat Glomerular Filtration Rate 56 ML/MIN (>89) PE at Discharge GENERAL: Sitting up in bed, no distress SKIN: Has stage 1 decubitus ulcer located on the lower back, on specialty bed for ulcers HEENT; Normocephalic, no conjunctivitis, no nasal discharge CARDIOVASCULAR: RRR, has systolic ejection murmur 3/6 RESPIRATORY: Clear to auscultation bilaterally GASTROINTESTINAL: Abdomen soft, nontender, normal bowel sounds MUSCULOSKELETAL: Improved range of motion. Some atrophy of lower extremities. NEURO: Has 4/5 strength lower extremities, 5/5 upper extremities. Psych: Appears motivated this morning, wants to make it to [facility] Hospital Course 71 year old female with a history of colon cancer in remission, atrial fibrillation on Eliquis, hypertension, type II diabetes mellitus, and major depressive disorder presented to the ED on 03/15/17 with abdominal pain, nausea, and vomiting, altered mental status, and dyspnea, dysuria and increased urinary frequency. She was diagnosed with severe sepsis secondary to pneumonia and pyelonephritis. She was initially treated with vancomycin and Zosyn. She decompensated acutely and required intubation and mechanical ventilation () with a lengthy stay in the ICU. She subsequently was extubated after improvement in her respiratory status and was doing well with plans to transfer to [facility]. Unfortunately she then developed a pulmonary embolism with acutely worsening shortness of breath and altered mental status and was transferred back to the ICU on 03/29. This time she did not require intubation. She then improved and was transferred back to the medical floor. Her primary problem currently is significant physical deconditioning with muscle atrophy. She has been working with physical therapy and occupational therapy with a goal to improve strength and function. On the day of transfer to [place] she is at her strongest since admission. She will be transferred to [facility] for inpatient rehabilitation for the next several weeks. For her pulmonary embolism she is currently receiving Xarelto 15 mg bid. For atrial fibrillation she is on Diltiazem 240 mg extended release once per day and amiodarone 400 mg PO bid. The amiodarone will likely need to be weaned down as tolerated. for depression she is being treated with Fluoxetine 20 mg daily. She has diabetes and gets Levemir 5 units twice daily with a medium dose sliding scale insulin. She is on a diabetic diet. 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 Pt Condition on Discharge: Stable Discharge Disposition: Rehab Inpatient Discharge Instructions DIET: Follow Instructions for: Diabetic Diet Activities you can perform: Regular-No Restrictions Robe Ware MD R3 Apr 08, 2017 13:52
== END 2017-04-08 15:20 | DRG 870 ==
LOC: NEPC 05:00 → NEDA 09:42 → HIME 11:25 → HCIS 03-26 22:30 → N03B 03-29 10:44 → N07B 04-03 14:39
PROVIDERS: ADMIT Family Medicine; ATTEND Family Medicine
PROC: 3E0F7GC Introduction of Other Therapeutic Substance into Respiratory Tract, Via Natural or Artificial Opening (ICD-10-PCS; principal; 2017-03-15)
PROC: 5A1955Z Respiratory Ventilation, Greater than 96 Consecutive Hours (ICD-10-PCS; 2017-03-15)
PROC: 0BH17EZ Insertion of Endotracheal Airway into Trachea, Via Natural or Artificial Opening (ICD-10-PCS; 2017-03-15)
PROC: 0T9B70Z Drainage of Bladder with Drainage Device, Via Natural or Artificial Opening (ICD-10-PCS; 2017-03-15)
DX: A41.59 Other Gram-negative sepsis (principal); J96.01 Acute respiratory failure with hypoxia; N17.0 Acute kidney failure with tubular necrosis; I26.99 Other pulmonary embolism without acute cor pulmonale; J18.9 Pneumonia, unspecified organism; R65.21 Severe sepsis with septic shock; G92 Toxic encephalopathy; L89.101 Pressure ulcer of unspecified part of back, stage 1; E87.4 Mixed disorder of acid-base balance; E87.0 Hyperosmolality and hypernatremia; N13.6 Pyonephrosis; I48.2 Chronic atrial fibrillation; I27.20 Pulmonary hypertension, unspecified; E11.9 Type 2 diabetes mellitus without complications; I08.0 Rheumatic disorders of both mitral and aortic valves; E86.0 Dehydration; I10 Essential (primary) hypertension; F33.41 Major depressive disorder, recurrent, in partial remission; E03.9 Hypothyroidism, unspecified; E78.5 Hyperlipidemia, unspecified; R39.15 Urgency of urination; R30.0 Dysuria; E87.6 Hypokalemia; R59.0 Localized enlarged lymph nodes; K59.00 Constipation, unspecified; D64.9 Anemia, unspecified; E83.51 Hypocalcemia; Z86.73 Personal history of transient ischemic attack (TIA), and cerebral infarction without residual deficits; Z92.21 Personal history of antineoplastic chemotherapy; Z87.891 Personal history of nicotine dependence; Z85.038 Personal history of other malignant neoplasm of large intestine; Z79.4 Long term (current) use of insulin; Z85.828 Personal history of other malignant neoplasm of skin; Z82.5 Family history of asthma and other chronic lower respiratory diseases; Z80.3 Family history of malignant neoplasm of breast; L98.8 Other specified disorders of the skin and subcutaneous tissue; R32 Unspecified urinary incontinence; M62.50 Muscle wasting and atrophy, not elsewhere classified, unspecified site
CPT/HCPCS: 31500; 36556; 36600; 36620; 70450; 71010; 71275; 74177; 76775; 76937; 80048; 80053; 80076; 80202; 81001; 82140; 82533; 82805; 82948; 83605; 83735; 83880; 84100; 84132; 84155; 84300; 84436; 84443; 84484; 85007; 85014; 85018; 85025; 85027; 85379; 85610; 85730; 86140; 87040; 87070; 87077; 87086; 87186; 87205; 87449; 87641; 93005; 93306; 94002; 94003; 94150; 94640; 94664; 96365; 96368; 96372; 96375; J0610; J0692; J0696; J1642; J1644; J1650; J1720; J1815; J1956; J2060; J2185; J2250; J2543; J3010; J3370; J3475; J3480; J7030; J7040; J7050; J7070; J7613; Q9967

== ENCOUNTER 2017-10-31 11:08 | Inpatient (IN) | payer MEDICARE, BC ==
[~2017-10-31] VITALS: Ht 167.6 cm; Wt 90.5 kg
[2017-10-31] VITALS (13 sets, daily range): BP systolic 73–139; BP diastolic 44–67; PULSE 106–125; RESP 16–40; TEMP 97.6–103.4; O2SAT 92–98
[~2017-10-31 11:08] MED LIST changes: +AMIO200T PO; +ASPI1TAB56 PO; -BLOOD GLUCOSE M1 KIT; -BUME1TAB PO; -CAPT25TA2 PO; +CARD240C6 PO; -CHOL4POW4 PO; +COMMODE 3-IN-11 MIS; +FLUO20CA12 PO; +FURO1TAB62 PO; +GABA100C4 PO; +GETGO ROLLING W1 MI1; +HYDR-3133 PO; -LANTUS2P SQ; +LEVEMIR SQ; -METF1000 PO; -NOVOLOGP2 SQ; -ONETTES4; -PACE200T PO; +PRAV40TA PO; -SIMV20TA PO; -VENL150T PO; +WHEEMIS3; +XARE20TA PO
[2017-10-31 12:13] LABS: HEMATOCRIT 35.6 % (35.0-46.0); HEMOGLOBIN 11.5 GM/DL (11.6-15.3); MEAN CELL VOLUME 79.2 FL (80.0-100.0); MEAN CORPUSCULAR HEMOGLOBIN 25.6 PG (27.0-34.0); MEAN CORPUSCULAR HGB CONC 32.4 % (32.0-36.0); PLATELET COUNT 165 TH/MM3 (150-450); RED CELL DISTRIBUTION WIDTH 17.1 % (11.6-17.2); WHITE BLOOD COUNT 15.8 TH/MM3 (4.0-11.0)
[2017-10-31] MEDS ORDERED: SODIUM CHLOR 0.9% 1000 ML INJ 1,000 ML IV ONE ×4 (12:15→15:45)
[2017-10-31] MEDS ORDERED: BUME1TAB PO (12:35)
[2017-10-31] MEDS ORDERED: NOVALOG (12:35)
[2017-10-31] MEDS ORDERED: CAPT12.52 PO (12:35)
[2017-10-31] MEDS ORDERED: METF-758 (12:35)
[2017-10-31] MEDS ORDERED: VENL75CA44 PO (12:35)
[2017-10-31] MEDS ORDERED: OXYB5TAB8 PO (12:35)
[2017-10-31] MEDS ORDERED: LANTUS2P SQ (12:35)
[2017-10-31 12:47] LABS: BANDS 28 % (0-6); LYMPHOCYTES 2 % (9-44); MONOCYTES 8 % (0-8); NEUTROPHIL # MANUAL DIFF 14.2 TH/MM3 (1.8-7.7); POLYS (SEG NEUTROPHILS) 62 % (16-70)
--- NOTE | 2017-10-31 12:47 | RADRPT ---
EXAM DATE/TIME: 10/31/2017 12:24 [facility] COMPARISON: CHEST SINGLE AP, April 03, 2017, 10:35. INDICATIONS : Confusion and weakness. MEDICAL HISTORY : Hypertension. Carcinoma, colon. Atrial fibrillation. Diabetes. SURGICAL HISTORY : Colon resection. Oophorectomy. ENCOUNTER: Initial ACUITY: 2 days PAIN SCORE: 0/10 LOCATION: Bilateral chest FINDINGS: There is a CT compatible [id number] in place from the right internal jugular approach. The heart s ize is enlarged. The lungs are free of focal consolidation. No effusion seen. CONCLUSION: No acute disease. Heart size appears enlarged. Jose Pablo MD on October 31, 2017 at 12:45 Board Certified Radiologist. This report was verified electronically.
[2017-10-31 12:48] LABS: TOXIC VACUOLATION PRESENT (NONE SEEN)
[2017-10-31 12:57] LABS: ALBUMIN 2.9 GM/DL (3.4-5.0); ALKALINE PHOSPHATASE 92 U/L (45-117); ALT (GPT) 17 U/L (10-53); AST (GOT) 19 U/L (15-37); BICARBONATE 21.7 MEQ/L (21.0-32.0); BLOOD UREA NITROGEN 34 MG/DL (7-18); CALCIUM 7.9 MG/DL (8.5-10.1); CHLORIDE 98 MEQ/L (98-107); CREATININE 2.12 MG/DL (0.50-1.00); GLOMERULAR FILTRATION RATE 23 ML/MIN (>89); GLUCOSE,RANDOM 183 MG/DL (74-106); SODIUM (NA) 134 MEQ/L (136-145); TOTAL BILIRUBIN ADULT 0.5 MG/DL (0.2-1.0); TOTAL PROTEIN 7.4 GM/DL (6.4-8.2)
[2017-10-31] MEDS ORDERED: PIPERACIL-TAZO 4.5 GM PREMIX 100 ML IV STA (13:07)
--- NOTE | 2017-10-31 13:07 | PD ---
HPI Chief Complaint: General Weakness Time Seen by Provider: 12:12 Travel History International Travel<30 days: No Contact w/Intl Traveler<30days: No Traveled to known affect area: No History of Present Illness HPI 72-year-old female with PMH of DM, HLD, colon CA status post resection, A. fib with RVR, PE, HTN, anemia presents to the ED via EMS for evaluation of 24 hour history left-sided back pain and weakness. Patient's is at bedside and helps to provide the history. He states [place] the [place] the last few weeks and the patient has been caring for herself at home. On presentation the patient complains of weakness so much so that she is "slumped to the ground" a few times over the last few days. She denies hitting her head or loss of consciousness in any of those falls. She complains of nausea with one episode of NBNB vomiting. She denies headaches, dizziness, chest pain, palpitations, shortness of breath, cough, abdominal pain, dysuria, edema in the lower extremities. Patient's is concerned that the patient seems confused today. He has not measured a fever at home but states that she "felt warm." Patient states that she was ordered to have a CT by Dr. Candelario, her oncologist, but was unable to complete that recently due to weakness. She does not use oxygen at home. PFSH Past Medical History Hx Anticoagulant Therapy: Yes Atrial Fibrillation: Yes Autoimmune Disease: No Heart Rhythm Problems: Yes (ATRIAL FIB) Cancer: Yes (Colon Cancer) Cardiovascular Problems: Yes High Cholesterol: No Chemotherapy: Yes Chest Pain: No Congestive Heart Failure: No Cerebrovascular Accident: Yes (TIA x2 2016) Diabetes: Yes Patient Takes Glucophage: No Diminished Hearing: No Endocrine: Yes Gastrointestinal Disorders: No Genitourinary: No Hiatal Hernia: No Hypertension: Yes Immune Disorder: No Implanted Vascular Access Dvce: Yes Musculoskeletal: No Neurologic: Yes Psychiatric: No Reproductive: No Respiratory: No Immunizations Current: Yes Migraines: No Seizures: No Thyroid Disease: Yes ?: Not Menopausal: Yes : 3 Para: 2 Past Surgical History Abdominal Surgery: Yes (COLON RECECTION, HERNIA, , EMERGENCY OVERY REMOVAL) AICD: No Appendectomy: Yes Cardiac Surgery: No Section: Yes Ear Surgery: No Endocrine Surgery: No Eye Surgery: No Genitourinary Surgery: No Joint Replacement: No Oral Surgery: No Pacemaker: No Thoracic Surgery: No Other Surgery: Yes (COLON RESECTION, HERNIA, , EMERGENCY OVERY REMOVAL ) Social History Alcohol Use: Yes (occassional) Tobacco Use: No Substance Use: No Allergies-Medications (Allergen,Severity, Reaction): Coded Allergies: Sulfa (Sulfonamide Antibiotics) (Verified Allergy, Severe, 10/31/17) codeine (Verified Allergy, Severe, Nausea/Vomiting, 10/31/17) Uncoded Allergies: METAL (Allergy, Intermediate, hives, 03/08/16) SURGICAL STEEL (Allergy, Intermediate, hives, 03/08/16) Reported Meds & Prescriptions Reported Meds & Active Scripts Active Temazepam 15 Mg Cap 15 Mg PO HS PRN Lasix (Furosemide) 20 Mg Tab 20 Mg PO DAILY Hydroxyzine HCl 25 Mg Tab 25 Mg PO QID PRN Pravachol (Pravastatin) 40 Mg Tab 40 Mg PO DAILY 30 Days Xarelto (Rivaroxaban) 20 Mg Tab 20 Mg PO DAILY Gabapentin 100 Mg Cap 100 Mg PO HS 30 Days Amiodarone (Amiodarone HCl) 200 Mg Tab 200 Mg PO DAILY 30 Days Fluoxetine (Fluoxetine HCl) 20 Mg Capsule 20 Mg PO DAILY 30 Days Adult Aspirin EC Low Strength (Aspirin) 81 Mg Tabec 162 Mg PO DAILY 30 Days Cardizem CD 24 HR (Diltiazem CD 24 HR) 240 Mg Caper 240 Mg PO DAILY 30 Days Levothyroxine (Levothyroxine Sodium) 50 Mcg Tab 50 Mcg PO DAILY 30 Days Wheelchair (Device) 1 Mis Mis Ea .ROUTE DIRECTED Commode 3-in-1 (Device) 1 Mis Mis Ea .ROUTE DIRECTED Walker Rolling/GetGo (Device) 1 Mis Mis Ea .ROUTE DIRECTED Reported [Novalog] Ditropan (Oxybutynin Chloride) 5 Mg Tab 5 Mg PO Q8HR Venlafaxine ER 24 HR (Venlafaxine HCl) 75 Mg Cap 75 Mg PO DAILY Metformin HCl ER (Metformin HCl) 1,000 Mg [id number] Lantus Inj (Insulin Glargine) 1,000 Unit/10 Ml Vial 10 Units SQ HS Captopril 12.5 Mg Tab 12.5 Mg PO BIDAC Take 1 hour before meals. Bumetanide 1 Mg Tab 1 Mg PO DAILY Review of Systems Except as stated in HPI: all other systems reviewed are Neg Physical Exam Narrative GENERAL: Well-nourished, well-developed white female no acute distress. SKIN: Focused skin assessment warm/dry. Dry mucous membranes. HEAD: Normocephalic. EYES: No scleral icterus. No injection or drainage. NECK: Supple, trachea midline. No JVD or lymphadenopathy. CARDIOVASCULAR: Irregular rate and rhythm without murmurs, gallops, or rubs. RESPIRATORY: Breath sounds clear and equal bilaterally. No accessory muscle use. GASTROINTESTINAL: Abdomen soft, non-tender, nondistended. Active bowel sounds. MUSCULOSKELETAL: No cyanosis, or edema. Moves extremities spontaneously. NEUROLOGICAL: Awake and alert. Cranial nerves II through XII intact. Motor and sensory grossly within normal limits. Five out of 5 muscle strength in all muscle groups. Normal speech. BACK: Nontender without obvious deformity. Positive right-sided CVA tenderness. Data Data Last Documented VS Vital Signs Date Time Temp Pulse Resp B/P (MAP) Pulse Ox O2 Delivery O2 Flow Rate FiO2 10/31/17 14:30 98.3 123 24 90/53 (65) 97 Nasal Cannula 4.00 Orders Orders Sepsis Workup Initiated (10/31/17 ) Complete Blood Count With Diff (10/31/17 11:32) Comprehensive Metabolic Panel (10/31/17 11:32) Lactic Acid Sepsis Protocol (10/31/17 11:32) Blood Culture (10/31/17 11:32) Iv Access Insert/Monitor (10/31/17 11:32) Oxygen Administration (10/31/17 11:32) Oximetry (10/31/17 11:32) Blood Glucose (10/31/17 11:32) Urinalysis - C+S If Indicated (10/31/17 11:32) Sodium Chlor 0.9% 1000 Ml Inj (Ns 1000 M (10/31/17 12:15) Chest, Single Ap (10/31/17 ) Sodium Chlor 0.9% 1000 Ml Inj (Ns 1000 M (10/31/17 13:15) Urinary Catheter Insert/Apply (10/31/17 13:05) Piperacil-Tazo 4.5 Gm Premix (Zosyn 4.5 (10/31/17 13:07) Vancomycin Inj (Vancomycin Inj) (10/31/17 13:18) Ct Brain W/O Iv Contrast(Rout) (10/31/17 13:21) Ct Abd/Pel W/O Iv Contrast (10/31/17 13:21) Ventilation & Perfusion Scan (10/31/17 ) Urine Culture (10/31/17 13:30) Sodium Chlor 0.9% 1000 Ml Inj (Ns 1000 M (10/31/17 14:30) Admit Order (Ed Use Only) (10/31/17 14:44) Consult Medical Oncology (10/31/17 ) Labs Laboratory Tests Test 10/31/17 11:53 10/31/17 13:30 White Blood Count 15.8 TH/MM3 Red Blood Count 4.50 MIL/MM3 Hemoglobin 11.5 GM/DL Hematocrit 35.6 % Mean Corpuscular Volume 79.2 FL Mean Corpuscular Hemoglobin 25.6 PG Mean Corpuscular Hemoglobin Concent 32.4 % Red Cell Distribution Width 17.1 % Platelet Count 165 TH/MM3 Mean Platelet Volume 10.0 FL CBC Comment AUTO DIFF Differential Total Cells Counted 100 Neutrophils % (Manual) 62 % Band Neutrophils % 28 % Lymphocytes % 2 % Monocytes % 8 % Neutrophils # (Manual) 14.2 TH/MM3 Differential Comment FINAL DIFF MANUAL Toxic Vacuolation PRESENT Platelet Estimate NORMAL Platelet Morphology Comment NORMAL Blood Urea Nitrogen 34 MG/DL Creatinine 2.12 MG/DL Random Glucose 183 MG/DL Total Protein 7.4 GM/DL Albumin 2.9 GM/DL Calcium Level 7.9 MG/DL Alkaline Phosphatase 92 U/L Aspartate Amino Transf (AST/SGOT) 19 U/L Alanine Aminotransferase (ALT/SGPT) 17 U/L Total Bilirubin 0.5 MG/DL Sodium Level 134 MEQ/L Potassium Level 3.7 MEQ/L Chloride Level 98 MEQ/L Carbon Dioxide Level 21.7 MEQ/L Anion Gap 14 MEQ/L Estimat Glomerular Filtration Rate 23 ML/MIN Lactic Acid Level 3.0 mmol/L Urine Color LIGHT-RED Urine Turbidity CLOUDY Urine pH 6.0 Urine Specific [place] 1.017 Urine Protein 300 mg/dL Urine Glucose (UA) NEG mg/dL Urine Ketones NEG mg/dL Urine Occult Blood LARGE Urine Nitrite NEG Urine Bilirubin NEG Urine Urobilinogen LESS THAN 2.0 MG/DL Urine Leukocyte Esterase LARGE Urine RBC 152 /hpf Urine WBC /hpf Urine WBC Clumps MANY Urine Bacteria RARE /hpf Urine Hyaline Casts 4 /lpf Urine Mucus FEW /lpf Microscopic Urinalysis Comment CULTURE INDICATED MDM Medical Decision Making Medical Screen Exam Complete: Yes Emergency Medical Condition: Yes Differential Diagnosis urosepsis versus AK I versus ureterolithiasis versus PE versus ICH versus metabolic derangement versus other Narrative Course 72-year-old female with PMH of DM, HLD, colon CA status post resection, A. fib with RVR, PE, HTN, anemia presents to the ED via EMS for evaluation of 24 hour history left-sided back pain and weakness. Patient is on Xarelto. Temp 97.6, pulse 118, BP 97/55, O2 sats 98% on room air with a respiratory rate of 16 on presentation. On exam this is an ill-appearing female in no acute distress. Chest CTA B. Abdomen soft nontender. There is positive right-sided CVA/flank tenderness. IV was established. Sepsis fluid resuscitation was initiated. Blood cultures were obtained. EKG: Rate 114, A. fib with RVR. Reviewed by Dr. Duarte. CBC: WBC 15.8 with 28% band neutrophils. Hemoglobin 11.5. CMP: BUN 34, creatinine 2.12. Lactic acid 3.0. UA: Cloudy, large occult blood, innumerable WBCs, many WBC clumps, rare bacteria. CXR: No acute disease per radiology read. CT brain: No acute findings. CTA: Innumerable small sclerotic lesions in the skeleton mostly characteristic of sclerotic bony metastatic disease. Hepatomegaly with development of mild ascites. Persistent moderate hydronephrosis with perinephric stranding similar to February 2017. Interval development of mild anasarca. Gallbladder sludge. VQ scan: Pending O2 sats dipping into the low 90s, 2-3 L nasal cannula applied. O2 sats improved to 97%. BP 117 systolic on recheck. IV vancomycin and Zosyn was initiated. I discussed the workup with the patient as well as the need for admission. She is agreeable to the plan. I discussed the patient with Dr. Hunter who agrees to accept the patient to the medicine service. Consult placed with Dr. Candelario. Please see medicine notes for disposition. Patient blood pressure is still in the 90s systolic. I change the admission to the [facility] after discussing the patient with the resident. [facility] has no beds available. I discussed with the resident team and Dr. Londono. They will continue to treat the patient. Dr. Srinivasan, digital composer, is aware and will follow as necessary. Sepsis Criteria SIRS Criteria (2 or more): Heart rate over 90, WBC > 01034, < 4000 or > 10% bands Sepsis Criteria (SIRS+source): Infect source susp/known Severe Sepsis (+one): Hypotension, Lactate >2 Criteria Outcome: Meets severe sepsis criteria Lima Robb October 31, 2017 13:07
[2017-10-31] MEDS ORDERED: VANCOMYCIN INJ 1,000 MG in SODIUM CHLOR 0.9% 250 ML INJ 250 ML IV STA (13:18)
[2017-10-31 14:08] LABS: BACTERIA, URINE RARE /hpf; BILIRUBIN, URINE NEG (NEG); BLOOD, URINE LARGE (NEG); GLUCOSE,URINE NEG (NEG); HYALINE CAST, URINE 4 /lpf (RARE); KETONE, URINE NEG (NEG); MUCUS URINE FEW /lpf (OCC); NITRITE,URINE NEG (NEG); URINE COLOR LIGHT-RED (YELLW/STRAW); URINE LEUKOCYTE ESTERASE LARGE (NEG); WHITE BLOOD CELL CLUMPS MANY
--- NOTE | 2017-10-31 14:21 | RADRPT ---
EXAM DATE/TIME: 10/31/2017 13:58 [facility] COMPARISON: No previous studies available for comparison. INDICATIONS : Right side abdomen pain ORAL CONTRAST: No oral contrast ingested. RADIATION DOSE: 8.32 CTDIvol (mGy) MEDICAL HISTORY : Cerebrovascular disease. Cardiovascular disease Carcinoma, colon.Diabetes SURGICAL HISTORY : Appendectomy. Colon resection. ENCOUNTER: Initial ACUITY: 1 day PAIN SCALE: 8/10 LOCATION: Right Abdomen TECHNIQUE: Volumetric scanning of the abdomen and pelvis was performed. Using automated exposure control and ad justment of the mA and/or kV according to patient size, radiation dose was kept as low as reasonably achievable to obtain optimal diagnostic quality images. DICOM format image data is available electro nically for review and comparison. FINDINGS: Dependent atelectasis present in the lungs. Moderate coronary calcifications. Cardiomegaly. No acute findings in the liver, spleen, adrenals or pancreas. Gallbladder sludge present. There is pe rsistent moderate bilateral hydronephrosis with perinephric stranding similar to prior examination in February 2017. There is interval development of mild ascites. There are innumerable sclerotic lesions in the bones which have developed since prior exam most kayla cteristic of bony metastatic disease. Probable fibroid uterus. Gallo catheter in decompressed bladder. Surgical ryan in the rectosigmoid junction. CONCLUSION: 1. Development of innumerable small sclerotic lesions in the skeleton most characteristic of scleroti c bony metastatic disease. There is a reported history of malignancy. 2. Hepatomegaly with development of mild ascites. 3. Persistent moderate hydronephrosis with perinephric stranding similar to February 2017. Interval development of mild anasarca. 4. Gallbladder sludge. Gallo catheter in bladder. Samuel Lin MD on October 31, 2017 at 14:12 Board Certified Radiologist. This report was verified electronically.
--- NOTE | 2017-10-31 14:46 | HHI.HP ---
HPI Service Family Medicine Primary Care Physician Unknown Admission Diagnosis Diagnoses: International Travel<30 Days: No Contact w/Intl Traveler<30days: No Known Affected Area: No History of Present Illness Pt is a 72 year old with past medical history significant for colon cancer, type 2 diabetes, hypertension, hyperlipidemia, atrial fibrillation (status post ablation 2) presenting to the ED due to weakness, found to have a UTI meeting sepsis criteria. She has not been feeling well over the past 2-3 days. She has had subjective fevers and chills. She has been getting progressively more weak. She has fallen several times onto her bottom. No loss of consciousness. This afternoon she was not able to walk. This morning she became more confused and had a difficult time finding words. She said that she did not want to go to the baby when her told her she would have to go to the hospital and she said that her pineapple was hurting her when she was trying to indicate that she was having back pain. She has not had anything to eat or drink for 30 hours prior to admission. She was scheduled to have a CT scan yesterday that was ordered by her oncologist, Dr. Candelario, and her reports that she was not to have any carbohydrates before this imaging study was done. She was unable to tolerate her medications and vomited after taking them earlier today. Yesterday around 11 AM was the last time she took her medication. She notes that she has noticed burning with urination over the past 2 days. She has been having regular bowel movements. Her recently traveled out of town to [facility] and returned last Saturday. He is present with her in the ED. Review of Systems Constitutional: COMPLAINS OF: Fever, Chills Eyes: DENIES: Vision loss Respiratory: COMPLAINS OF: Cough Cardiovascular: DENIES: Chest pain, Dyspnea on Exertion Gastrointestinal: COMPLAINS OF: Vomiting, DENIES: Constipation, Diarrhea Genitourinary: COMPLAINS OF: Dysuria Musculoskeletal: DENIES: Joint pain, Muscle aches Integumentary: DENIES: Rash Hematologic/lymphatic: DENIES: Bruising Neurologic: COMPLAINS OF: Headache Psychiatric: COMPLAINS OF: Confusion Past Family Social History Past Medical History Colon cancer: Diagnosed 2015 Diabetes Type 2 - on insulin Hypertension Hyperlipidemia Cardiac = prior heart attack? Atrial fibrillation Depression Hypothyroidism CVA 2015 PE 03/2017 Pyelo/PNA 03/2017 requiring intubation Past Surgical History C/S x2 hernia operation 1999 "emergency abdominal surgery" when taking fertility drugs 1986 Reported Medications Reported Meds & Active Scripts Active Temazepam 15 Mg Cap 15 Mg PO HS PRN Lasix (Furosemide) 20 Mg Tab 20 Mg PO DAILY Hydroxyzine HCl 25 Mg Tab 25 Mg PO QID PRN Pravachol (Pravastatin) 40 Mg Tab 40 Mg PO DAILY 30 Days Xarelto (Rivaroxaban) 20 Mg Tab 20 Mg PO DAILY Gabapentin 100 Mg Cap 100 Mg PO HS 30 Days Amiodarone (Amiodarone HCl) 200 Mg Tab 200 Mg PO DAILY 30 Days Fluoxetine (Fluoxetine HCl) 20 Mg Capsule 20 Mg PO DAILY 30 Days Adult Aspirin EC Low Strength (Aspirin) 81 Mg Tabec 162 Mg PO DAILY 30 Days Cardizem CD 24 HR (Diltiazem CD 24 HR) 240 Mg Caper 240 Mg PO DAILY 30 Days Levothyroxine (Levothyroxine Sodium) 50 Mcg Tab 50 Mcg PO DAILY 30 Days Wheelchair (Device) 1 Mis Mis Ea .ROUTE DIRECTED Commode 3-in-1 (Device) 1 Mis Mis Ea .ROUTE DIRECTED Walker Rolling/GetGo (Device) 1 Mis Mis Ea .ROUTE DIRECTED Reported [Novalog] Ditropan (Oxybutynin Chloride) 5 Mg Tab 5 Mg PO Q8HR Venlafaxine ER 24 HR (Venlafaxine HCl) 75 Mg Cap 75 Mg PO DAILY Metformin HCl ER (Metformin HCl) 1,000 Mg [id number] Lantus Inj (Insulin Glargine) 1,000 Unit/10 Ml Vial 10 Units SQ HS Captopril 12.5 Mg Tab 12.5 Mg PO BIDAC Take 1 hour before meals. Bumetanide 1 Mg Tab 1 Mg PO DAILY Allergies: Coded Allergies: Sulfa (Sulfonamide Antibiotics) (Verified Allergy, Severe, 10/31/17) codeine (Verified Allergy, Severe, Nausea/Vomiting, 10/31/17) Uncoded Allergies: METAL (Allergy, Intermediate, hives, 03/08/16) SURGICAL STEEL (Allergy, Intermediate, hives, 03/08/16) Family History Mom: Breast CA at 48, still living at 87 Dad: emphysema No siblings Son: lymphedema Social History EtOH: very rarely Tob: 10 pack/yr smoker; quit 2009 Illicits: None . 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 2 healthy kids. Physical Exam Vital Signs Vital Signs Date Time Temp Pulse Resp B/P (MAP) Pulse Ox O2 Delivery O2 Flow Rate FiO2 10/31/17 14:30 98.3 123 24 90/53 (65) 97 Nasal Cannula 4.00 10/31/17 12:49 98.3 113 18 83/50 (61) 94 Nasal Cannula 4.00 10/31/17 12:47 98.2 115 18 73/44 (54) 92 Nasal Cannula 4.00 10/31/17 12:47 94 Nasal Cannula 3.00 10/31/17 12:47 110 18 73/44 (54) 95 Nasal Cannula 4.00 10/31/17 11:24 118 10/31/17 11:19 97.6 118 16 97/55 (69) 98 Physical Exam GENERAL: This is a well-nourished, well-developed patient, in no apparent distress. SKIN: No rashes, ecchymoses or lesions. Cool and dry. HEAD: Atraumatic. Normocephalic. No temporal or scalp tenderness. EYES: Pupils equal round and reactive. Extraocular motions intact. No scleral icterus. No injection or drainage. ENT: Nose without bleeding, purulent drainage or septal hematoma. Throat without erythema, tonsillar hypertrophy or exudate. Uvula midline. Airway patent. No Sinus tenderness. Dry mucus membranes. NECK: Trachea midline. No JVD or lymphadenopathy. Supple, nontender, no meningeal signs. CARDIOVASCULAR: Tachycardic rate, normal rhythm without murmurs, gallops, or rubs. RESPIRATORY: Mildly increased work of breathing. Bibasilar crackles. Good air movement. GASTROINTESTINAL: Abdomen soft, non-tender, nondistended. No hepato-splenomegaly , or palpable masses. No guarding. MUSCULOSKELETAL: Extremities without clubbing, cyanosis, or edema. No joint tenderness, effusion, or edema noted. No calf tenderness. Negative Homans sign bilaterally. NEUROLOGICAL: Awake and alert. Cranial nerves II through XII intact. 4/5 strength of upper and lower extremities. Pt with difficulty finding words. Laboratory Laboratory Tests Test 10/31/17 11:53 10/31/17 13:30 White Blood Count 15.8 Red Blood Count 4.50 Hemoglobin 11.5 Hematocrit 35.6 Mean Corpuscular Volume 79.2 Mean Corpuscular Hemoglobin 25.6 Mean Corpuscular Hemoglobin Concent 32.4 Red Cell Distribution Width 17.1 Platelet Count 165 Mean Platelet Volume 10.0 CBC Comment AUTO DIFF Differential Total Cells Counted 100 Neutrophils % (Manual) 62 Band Neutrophils % 28 Lymphocytes % 2 Monocytes % 8 Neutrophils # (Manual) 14.2 Differential Comment FINAL DIFF MANUAL Toxic Vacuolation PRESENT Platelet Estimate NORMAL Platelet Morphology Comment NORMAL Blood Urea Nitrogen 34 Creatinine 2.12 Random Glucose 183 Total Protein 7.4 Albumin 2.9 Calcium Level 7.9 Alkaline Phosphatase 92 Aspartate Amino Transf (AST/SGOT) 19 Alanine Aminotransferase (ALT/SGPT) 17 Total Bilirubin 0.5 Sodium Level 134 Potassium Level 3.7 Chloride Level 98 Carbon Dioxide Level 21.7 Anion Gap 14 Estimat Glomerular Filtration Rate 23 Lactic Acid Level 3.0 Urine Color LIGHT-RED Urine Turbidity CLOUDY Urine pH 6.0 Urine Specific [place] 1.017 Urine Protein 300 Urine Glucose (UA) NEG Urine Ketones NEG Urine Occult Blood LARGE Urine Nitrite NEG Urine Bilirubin NEG Urine Urobilinogen LESS THAN 2.0 Urine Leukocyte Esterase LARGE Urine RBC 152 Urine WBC Urine WBC Clumps MANY Urine Bacteria RARE Urine Hyaline Casts 4 Urine Mucus FEW Microscopic Urinalysis Comment CULTURE INDICATED Date/Time Source Procedure Growth Status 10/31/17 12:08 Blood Peripheral Aerobic Blood Culture Pending Received 10/31/17 12:08 Blood Peripheral Anaerobic Blood Culture Pending Received 10/31/17 13:30 Urine Clean Catch Urine Culture Pending Received Result Diagram: 10/31/17 1153 10/31/17 1153 Imaging Last [address] 10/31/17 1321 Signed Impressions: Service Date/Time: October 14:02 - CONCLUSION: 1. No acute intracranial findings. Left sphenoid sinusitis. Remote lacunar infarct right frontal white matter. Samuel Lin MD Abdomen/Pelvis CT 10/31/17 1321 Signed Impressions: Service Date/Time: October 13:58 - CONCLUSION: 1. Development of innumerable small sclerotic lesions in the skeleton most characteristic of sclerotic bony metastatic disease. There is a reported history of malignancy. 2. Hepatomegaly with development of mild ascites. 3. Persistent moderate hydronephrosis with perinephric stranding similar to February 2017. Interval development of mild anasarca. 4. Gallbladder sludge. Gallo catheter in bladder. Samuel Lin MD Lung Scan-VQ Nuclear Medicine 10/31/17 0000 Signed Impressions: Service Date/Time: October 15:00 - CONCLUSION: Low probability scan for pulmonary embolism Jose Wright MD Chest X-Ray 10/31/17 0000 Signed Impressions: Service Date/Time: October 12:24 - CONCLUSION: No acute disease. Heart size appears enlarged. Jose Pablo MD Septic Shock Reassessment Septic shock perfusion: reassessment completed Caprini VTE Risk Assessment Caprini VTE Risk Assessment: Mod/High Risk (score >= 2) Caprini Risk Assessment Model Point Value = 1 Point Value = 2 Point Value = 3 Point Value = 5 Age 41-60 Minor surgery BMI > 25 kg/m2 Swollen legs Varicose veins or History of unexplained or recurrent spontaneous Oral contraceptives or hormone replacement Sepsis (< 1 month) Serious lung disease, including pneumonia (< 1 month) Abnormal pulmonary function Acute myocardial infarction Congestive heart failure (< 1 month) History of inflammatory bowel disease Medical patient at bed rest Age 61-74 Arthroscopic surgery Major open surgery (> 45 min) Laparoscopic surgery (> 45 min) Malignancy Confined to bed (> 72 hours) Immobilizing plaster cast Central venous access Age >= 75 History of VTE Family history of VTE Factor V Leiden Prothrombin [id number] Lupus anticoagulant Anticardiolipin antibodies Elevated serum homocysteine Heparin-induced thrombocytopenia Other congenital or acquired thrombophilia Stroke (< 1 month) Elective arthroplasty Hip, pelvis, or leg fracture Acute spinal cord injury (< 1 month) Prophylaxis Regimen Total Risk Factor Score Risk Level Prophylaxis Regimen 0-1 Low Early ambulation 2 Moderate Order ONE of the following: *Sequential Compression Device (SCD) *Heparin 5000 units SQ BID 3-4 Higher Order ONE of the following medications: *Heparin 5000 units SQ TID *Enoxaparin/Lovenox 40 mg SQ daily (WT < 150 kg, CrCl > 30 mL/min) *Enoxaparin/Lovenox 30 mg SQ daily (WT < 150 kg, CrCl > 10-29 mL/min) *Enoxaparin/Lovenox 30 mg SQ BID (WT < 150 kg, CrCl > 30 mL/min) AND/OR *Sequential Compression Device (SCD) 5 or more Highest Order ONE of the following medications: *Heparin 5000 units SQ TID (Preferred with Epidurals) *Enoxaparin/Lovenox 40 mg SQ daily (WT < 150 kg, CrCl > 30 mL/min) *Enoxaparin/Lovenox 30 mg SQ daily (WT < 150 kg, CrCl > 10-29 mL/min) *Enoxaparin/Lovenox 30 mg SQ BID (WT < 150 kg, CrCl > 30 mL/min) AND *Sequential Compression Device (SCD) Assessment and Plan Assessment and Plan Patient is a 72-year-old admitted due to UTI, meets sepsis criteria, also with sclerotic bony lesions concerning for colon cancer metastasis. Code Status Full Discussed Condition With [facility] Dr. Ambrosio Problem List: (1) Sepsis ICD Codes: A41.9 - Sepsis, unspecified organism Plan: At time of admission pt met sepsis criteria with WBC count of 15.8, HR 109 Lactic acid 3.0-->3.2, will continue to monitor -Urine and blood cultures pending -See plan below for UTI (2) UTI (urinary tract infection) ICD Codes: N39.0 - Urinary tract infection, site not specified Plan: UA with large leukocyte esterase, innumerable WBCs, many WBC clumps -Rocephin 1G IV daily -Urine culture pending -Antibiotic to be transitioned to oral based on culture results and sensitivity (3) Aphasia ICD Codes: R47.01 - Aphasia Plan: Pt with difficulty finding words, nonsensical language, history of TIA -We will check a brain MRI without contrast due to renal function -Head CT with no acute findings (4) 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 Candelario, appreciate recommendations Imaging: Abdomen/Pelvis CT 10/31/17: Innumerable small sclerotic lesions in the skeleton, most characteristic of sclerotic bony metastatic disease. Pt with history of colon cancer (5) Weakness ICD Codes: R53.1 - Weakness Plan: Differential includes acute infection vs bony metastasis vs deconditioning vs others -See plan above -PT consulted -Continue to monitor labs and vitals Imaging: Head CT 10/31/17: with no acute intracranial findings. Left sphenoid sinusitis. Remote lacunar infarct right frontal white matter. (6) Diabetes mellitus, type II ICD Codes: E11.9 - Type 2 diabetes mellitus Status: Chronic Plan: Will hold home medications -Low dose SSI -Continue to monitor blood sugar (7) Hypertension ICD Codes: I10 - Essential (primary) hypertension Status: Chronic Plan: Pt currently hypotensive, Hold home blood pressure medications To be resumed once BP normalizes Will order Echo to evaluate heart function (8) Hypothyroidism ICD Codes: E03.9 - Hypothyroidism Status: Chronic Plan: Continue home Levothyroxine (9) FEN/PPX Plan: Fluid: NS 115/hr Electrolytes: Sodium low at 134, See fluids above. Continue to monitor. Nutrition: Diabetic diet DVT PPX: Albert Pedro, Jamari Aguilar Physician Certification 2 Midnight Certification Type: Admission for Inpatient Services Order for Inpatient Services The services are ordered in accordance with Medicare regulations or non- Medicare payer requirements, as applicable. In the case of services not specified as inpatient-only, they are appropriately provided as inpatient services in accordance with the 2-midnight benchmark. Estimated LOS (days): 2 2 days is the estimated time the patient will need to remain in the hospital, assuming treatment plan goals are met and no additional complications. Post-Hospital Plan: Not yet determined Vamsi Hunter MD R3 October 31, 2017 14:46
--- NOTE | 2017-10-31 14:57 | RADRPT ---
EXAM DATE/TIME: 10/31/2017 14:02 [facility] COMPARISON: No previous studies available for comparison. INDICATIONS : Several falls the last few days. RADIATION DOSE: 50.55 CTDIvol (mGy) MEDICAL HISTORY : Cerebrovascular disease. Cardiovascular disease Carcinoma, colon.Diabetes SURGICAL HISTORY : Appendectomy. Colon resection. ENCOUNTER: Initial ACUITY: 2 days PAIN SCALE: 0/10 LOCATION: cranial TECHNIQUE: Multiple contiguous axial images were obtained of the head. Using automated exposure control and adj ustment of the mA and/or kV according to patient size, radiation dose was kept as low as reasonably a chievable to obtain optimal diagnostic quality images. DICOM format image data is available electro nically for review and comparison. FINDINGS: CEREBRUM: The ventricles are normal for age. No evidence of midline shift, mass lesion, hemorrhage or acute in farction. Lacunar infarct right frontal white matter. No extra-axial fluid collections are seen. POSTERIOR FOSSA: The cerebellum and brainstem are intact. The 4th ventricle is midline. The cerebellopontine angle i s unremarkable. EXTRACRANIAL: The visualized portion of the orbits is intact. Sinusitis left sided septated sphenoid sinus. SKULL: The calvaria is intact. No evidence of skull fracture. CONCLUSION: 1. No acute intracranial findings. Left sphenoid sinusitis. Remote lacunar infarct right frontal whit e matter. Samuel Lin MD on October 31, 2017 at 14:51 Board Certified Radiologist. This report was verified electronically.
[2017-10-31] MEDS ORDERED: DEXTROSE 50% IN WATER 50 ML VIAL(D50) IV PUSH PRN (15:30)
[2017-10-31] MEDS ORDERED: cloNIDine HCL 0.1 MG TAB PO PRN (15:30)
[2017-10-31] MEDS ORDERED: LACTULOSE SYRUP 20 GM/30 ML CUP PO PRN (15:30)
[2017-10-31] MEDS ORDERED: BISACODYL 10 MG SUPP RECTAL PRN (15:30)
[2017-10-31] MEDS ORDERED: SENNOSIDES 8.6 MG TAB PO PRN (15:30)
[2017-10-31] MEDS ORDERED: MAGNESIUM HYDROXIDE SUSP 30 ML CUP PO PRN (15:30)
[2017-10-31] MEDS ORDERED: NALOXONE HCL 0.4 MG/ML AMP IV PUSH PRN (15:30)
[2017-10-31] MEDS ORDERED: GLUCAGON 1 MG/ML VIAL OTHER PRN (15:30)
[2017-10-31] MEDS ORDERED: cefTRIAXone INJ 1,000 MG in SODIUM CHLORIDE 0.9% INJ 100 ML IV SCH (16:00)
--- NOTE | 2017-10-31 16:04 | RADRPT ---
EXAM DATE/TIME: 10/31/2017 15:00 [facility] COMPARISON: CHEST SINGLE AP, October 31, 2017, 12:24. INDICATIONS : Short of breath. DOSE: 8.7 mCi Tc99m MAA IV 0.6 mCi Tc99m DTPA aerosol MEDICAL HISTORY : Carcinoma, colon. Diabetes mellitus type 2. SURGICAL HISTORY : Colon resection. ENCOUNTER: Initial ACUITY: 2 days PAIN SCALE: 3/10 LOCATION: Bilateral chest TECHNIQUE: Following five minutes of tidal breathing of DTPA aerosol, planar images of the lungs were performed in eight projections. The patient was then injected with MAA, and eight-view perfusion scan was perf ormed. FINDINGS: There is a homogeneous pattern of aerosol delivery to the periphery of both lungs. No focal ventilat ory defects are seen. The perfusion lung scan demonstrates a homogenous pattern of uptake in both lungs. No segmental or s ubsegmental defects are seen. CONCLUSION: Low probability scan for pulmonary embolism Jose Wright MD on October 31, 2017 at 16:01 Board Certified Radiologist. This report was verified electronically.
[2017-10-31] MEDS: ACETAMINOPHEN 325 MG TAB PO PRN (17:00)
[2017-10-31] MEDS: INSULIN ASPART SUPPLEMENTAL SCALE SQ SCH ×2 (17:00→21:00)
[2017-10-31] MEDS: SODIUM CHLOR 0.9% 1000 ML INJ 1,000 ML IV SCH ×2 (17:36→21:55)
--- NOTE | 2017-10-31 18:32 | PD ---
Physical Exam Narrative Please see mid-level provider note for full history, physical, and disposition. Patient presents to the emergency department with left-sided back pain and weakness. She was found to be A. fib with RVR and urosepsis. She was given a dose of IV vancomycin and Zosyn. Her O2 sats were in the low 90s and VQ scan was low probability for PE. Patient was admitted to stepdown, but there are no stepdown beds. ICU admit and resident were both contacted, and spoke to recheck. Admit resident believes they can manage the patient on the floor, but she did speak to the behavioral consultant to discuss the case should the patient need to be transferred to the ICU. She has been admitted for urosepsis and A. fib with RVR. Rate without medication is approx 100. Data Data Last Documented VS Vital Signs Date Time Temp Pulse Resp B/P (MAP) Pulse Ox O2 Delivery O2 Flow Rate FiO2 10/31/17 14:30 98.3 123 24 90/53 (65) 97 Nasal Cannula 4.00 Orders Orders Sepsis Workup Initiated (10/31/17 ) Complete Blood Count With Diff (10/31/17 11:32) Comprehensive Metabolic Panel (10/31/17 11:32) Lactic Acid Sepsis Protocol (10/31/17 11:32) Blood Culture (10/31/17 11:32) Iv Access Insert/Monitor (10/31/17 11:32) Oxygen Administration (10/31/17 11:32) Oximetry (10/31/17 11:32) Blood Glucose (10/31/17 11:32) Urinalysis - C+S If Indicated (10/31/17 11:32) Sodium Chlor 0.9% 1000 Ml Inj (Ns 1000 M (10/31/17 12:15) Chest, Single Ap (10/31/17 ) Sodium Chlor 0.9% 1000 Ml Inj (Ns 1000 M (10/31/17 13:15) Urinary Catheter Insert/Apply (10/31/17 13:05) Piperacil-Tazo 4.5 Gm Premix (Zosyn 4.5 (10/31/17 13:07) Vancomycin Inj (Vancomycin Inj) (10/31/17 13:18) Ct Brain W/O Iv Contrast(Rout) (10/31/17 13:21) Ct Abd/Pel W/O Iv Contrast (10/31/17 13:21) Ventilation & Perfusion Scan (10/31/17 ) Urine Culture (10/31/17 13:30) Sodium Chlor 0.9% 1000 Ml Inj (Ns 1000 M (10/31/17 14:30) Admit Order (Ed Use Only) (10/31/17 14:44) Consult Medical Oncology (10/31/17 ) Labs Laboratory Tests Test 10/31/17 11:53 10/31/17 13:30 White Blood Count 15.8 TH/MM3 Red Blood Count 4.50 MIL/MM3 Hemoglobin 11.5 GM/DL Hematocrit 35.6 % Mean Corpuscular Volume 79.2 FL Mean Corpuscular Hemoglobin 25.6 PG Mean Corpuscular Hemoglobin Concent 32.4 % Red Cell Distribution Width 17.1 % Platelet Count 165 TH/MM3 Mean Platelet Volume 10.0 FL CBC Comment AUTO DIFF Differential Total Cells Counted 100 Neutrophils % (Manual) 62 % Band Neutrophils % 28 % Lymphocytes % 2 % Monocytes % 8 % Neutrophils # (Manual) 14.2 TH/MM3 Differential Comment FINAL DIFF MANUAL Toxic Vacuolation PRESENT Platelet Estimate NORMAL Platelet Morphology Comment NORMAL Blood Urea Nitrogen 34 MG/DL Creatinine 2.12 MG/DL Random Glucose 183 MG/DL Total Protein 7.4 GM/DL Albumin 2.9 GM/DL Calcium Level 7.9 MG/DL Alkaline Phosphatase 92 U/L Aspartate Amino Transf (AST/SGOT) 19 U/L Alanine Aminotransferase (ALT/SGPT) 17 U/L Total Bilirubin 0.5 MG/DL Sodium Level 134 MEQ/L Potassium Level 3.7 MEQ/L Chloride Level 98 MEQ/L Carbon Dioxide Level 21.7 MEQ/L Anion Gap 14 MEQ/L Estimat Glomerular Filtration Rate 23 ML/MIN Lactic Acid Level 3.0 mmol/L Urine Color LIGHT-RED Urine Turbidity CLOUDY Urine pH 6.0 Urine Specific [place] 1.017 Urine Protein 300 mg/dL Urine Glucose (UA) NEG mg/dL Urine Ketones NEG mg/dL Urine Occult Blood LARGE Urine Nitrite NEG Urine Bilirubin NEG Urine Urobilinogen LESS THAN 2.0 MG/DL Urine Leukocyte Esterase LARGE Urine RBC 152 /hpf Urine WBC /hpf Urine WBC Clumps MANY Urine Bacteria RARE /hpf Urine Hyaline Casts 4 /lpf Urine Mucus FEW /lpf Microscopic Urinalysis Comment CULTURE INDICATED MDM Supervised Visit with TIARA: Yes Sepsis Criteria SIRS Criteria (2 or more): Heart rate over 90, WBC > 12156, < 4000 or > 10% bands Sepsis Criteria (SIRS+source): Infect source susp/known Severe Sepsis (+one): Lactate >2 Diagnosis Primary Impression: Sepsis Qualified Codes: A41.9 - Sepsis, unspecified organism Additional Impressions: UTI (urinary tract infection) Atrial fibrillation with rapid ventricular response Admitting Information Admitting Physician Requests: Admit Condition: Stable Jessica Duarte MD October 31, 2017 18:32
[2017-10-31 19:22] LABS: PHOSPHORUS 1.6 MG/DL (2.5-4.9)
[2017-10-31] MEDS ORDERED: ACETAMINOPHEN 1000 MG/100 ML 100 ML IV ONE (19:45)
[2017-10-31 20:14] LABS: LACTIC ACID SEPSIS PROTOCOL 2.9 mmol/L (0.4-2.0)
[2017-10-31] MEDS ORDERED: MAGNESIUM SULFATE 1 GM PREMIX 100 ML IV ONE ×2 (20:15)
[2017-10-31] MEDS ORDERED: Custom Consult Pharmacy 1 EA OTHER SCH (20:15)
[2017-10-31] MEDS ORDERED: DIGOXIN 0.5 MG/2 ML VIAL IV PUSH ONE (20:15)
[2017-10-31] MEDS: PIPERACIL-TAZO 3.375 GM PREMIX 50 ML IV SCH (21:55)
[2017-10-31] MEDS: OXYBUTYNIN CHLORIDE 5 MG TAB PO SCH (21:55)
[2017-10-31] MEDS: SODIUM CHLORIDE 0.9% FLUSH 10 ML FLUSH IV FLUSH SCH (21:56)
[2017-10-31] MEDS: DOCUSATE SODIUM 50 MG/SENNA 8.6 MG TAB PO SCH (21:56)
--- NOTE | 2017-10-31 22:09 | PD.CONS ---
[facility] Service Critical Care Medicine Consult Requested By Family medicine service Reason for Consult Hypotension, sepsis secondary to UTI, Afib with RVR Primary Care Physician Unknown History of Present Illness History of Present Illness 72-year-old female with a medical history significant for colon cancer, hypertension, hyperlipidemia, atrial fibrillation status post previous ablation , type 2 diabetes mellitus who presented to the ER with generalized weakness and was hypotensive on arrival. She was diagnosed to have a UTI/sepsis. She received 4 L fluids in the ER with systolic blood pressure coming up to the 90s however was tachycardic with heart rate going up to 130s atrial fibrillation. She had a negligible urine output despite 4 L IV fluids and an elevated lactic acid with concern for severe sepsis and acute kidney injury. Patient was admitted by family medicine service and critical care consult was requested by ER physician. I evaluated the patient in the ER. At that time she was on 2 L nasal cannula maintaining O2 sats around 98%. Her systolic blood pressure was in the mid 90 range. She was in atrial fibrillation with heart rate ranging from 110-120s. Patient was awake and alert at the time of my evaluation and was following commands appropriately. She denied any worsening shortness of breath or chest pain at the time. She did have some abdominal discomfort. She appeared slightly tachypneic. She had already received empiric antibiotic coverage. History was obtained by discussion with , ER physician, family medicine residents and review of records. Patient has reportedly not had anything to eat or drink for 30 hours prior to admission. She has been having burning with urination over the past 2 days. Patient had a head CT which was unremarkable, CT abdomen pelvis revealed moderate hydronephrosis, VQ scan was low probability for PE. Review of Systems Constitutional: COMPLAINS OF: Fever, Chills Eyes: DENIES: Vision loss Respiratory: COMPLAINS OF: Cough Cardiovascular: DENIES: Chest pain, Dyspnea on Exertion Gastrointestinal: COMPLAINS OF: Vomiting, DENIES: Constipation, Diarrhea Genitourinary: COMPLAINS OF: Dysuria Musculoskeletal: DENIES: Joint pain, Muscle aches Integumentary: DENIES: Rash Hematologic/lymphatic: DENIES: Bruising Neurologic: COMPLAINS OF: Headache Psychiatric: COMPLAINS OF: Confusion Past Family Social History Past Medical History Colon cancer: Diagnosed 2016 Diabetes Type 2 - on insulin Hypertension Hyperlipidemia Cardiac = prior heart attack? 2D echo (03/16/17) with LVEF 50-55%, moderate mitral stenosis, [id number] aortic stenosis, pulmonary hypertension Atrial fibrillation Depression Hypothyroidism CVA 2014 PE 03/2017 Pyelo/PNA 03/2017 requiring intubation Past Surgical History C/S x2 hernia operation 1999 "emergency abdominal surgery" when taking fertility drugs 1986 Reported Medications Reported Meds & Active Scripts Active Temazepam 15 Mg Cap 15 Mg PO HS PRN Lasix (Furosemide) 20 Mg Tab 20 Mg PO DAILY Hydroxyzine HCl 25 Mg Tab 25 Mg PO QID PRN Pravachol (Pravastatin) 40 Mg Tab 40 Mg PO DAILY 30 Days Xarelto (Rivaroxaban) 20 Mg Tab 20 Mg PO DAILY Gabapentin 100 Mg Cap 100 Mg PO HS 30 Days Amiodarone (Amiodarone HCl) 200 Mg Tab 200 Mg PO DAILY 30 Days Fluoxetine (Fluoxetine HCl) 20 Mg Capsule 20 Mg PO DAILY 30 Days Adult Aspirin EC Low Strength (Aspirin) 81 Mg Tabec 162 Mg PO DAILY 30 Days Cardizem CD 24 HR (Diltiazem CD 24 HR) 240 Mg Caper 240 Mg PO DAILY 30 Days Levothyroxine (Levothyroxine Sodium) 50 Mcg Tab 50 Mcg PO DAILY 30 Days Wheelchair (Device) 1 Mis Mis Ea .ROUTE DIRECTED Commode 3-in-1 (Device) 1 Mis Mis Ea .ROUTE DIRECTED Walker Rolling/GetGo (Device) 1 Mis Mis Ea .ROUTE DIRECTED Reported [Novalog] Ditropan (Oxybutynin Chloride) 5 Mg Tab 5 Mg PO Q8HR Venlafaxine ER 24 HR (Venlafaxine HCl) 75 Mg Cap 75 Mg PO DAILY Metformin HCl ER (Metformin HCl) 1,000 Mg [id number] Lantus Inj (Insulin Glargine) 1,000 Unit/10 Ml Vial 10 Units SQ HS Captopril 12.5 Mg Tab 12.5 Mg PO BIDAC Take 1 hour before meals. Bumetanide 1 Mg Tab 1 Mg PO DAILY Allergies: Coded Allergies: Sulfa (Sulfonamide Antibiotics) (Verified Allergy, Severe, 10/31/17) codeine (Verified Allergy, Severe, Nausea/Vomiting, 10/31/17) Uncoded Allergies: METAL (Allergy, Intermediate, hives, 03/08/16) SURGICAL STEEL (Allergy, Intermediate, hives, 03/08/16) Family History Mom: Breast CA at 48, still living at 87 Dad: emphysema No siblings Son: lymphedema Social History EtOH: very rarely Tob: 10 pack/yr smoker; quit 2009 Illicits: None . 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 2 healthy kids. Review of Systems ROS as per HPI Physical Exam Vital Signs Vital Signs Date Time Temp Pulse Resp B/P (MAP) Pulse Ox O2 Delivery O2 Flow Rate FiO2 10/31/17 20:49 10/31/17 20:28 106 40 90/51 (64) 97 Nasal Cannula 2.00 10/31/17 19:38 103.4 117 94/51 (65) 10/31/17 19:00 98.2 107 40 106/53 (70) 97 Nasal Cannula 3.00 10/31/17 18:05 125 30 139/57 (84) 96 Nasal Cannula 3.00 10/31/17 17:39 109 22 98/67 (77) 95 Nasal Cannula 3.00 10/31/17 16:50 120 16 93/51 (65) 94 Nasal Cannula 3.00 10/31/17 14:51 109 10/31/17 14:30 98.3 123 24 90/53 (65) 97 Nasal Cannula 4.00 10/31/17 12:49 98.3 113 18 83/50 (61) 94 Nasal Cannula 4.00 10/31/17 12:47 98.2 115 18 73/44 (54) 92 Nasal Cannula 4.00 10/31/17 12:47 94 Nasal Cannula 3.00 10/31/17 12:47 110 18 73/44 (54) 95 Nasal Cannula 4.00 10/31/17 11:24 118 10/31/17 11:19 97.6 118 16 97/55 (69) 98 Physical Exam HEENT/Neuro: No pallor or icterus, tongue moist, MIGUEL, Awake alert oriented 3 , nonfocal grossly, moving all 4 extremities Neck: No JVD Chest/pulmonary: CTA bilaterally, no wheezing or crackles Cardiovascular: S1-S2 irregularly irregular, no gallop or murmur GI/abdomen: Soft, vague tenderness, bowel sounds present Extremities: Warm bilaterally, trace edema Laboratory Laboratory Tests Test 10/31/17 11:53 10/31/17 13:30 10/31/17 15:00 10/31/17 19:00 White Blood Count 15.8 Red Blood Count 4.50 Hemoglobin 11.5 Hematocrit 35.6 Mean Corpuscular Volume 79.2 Mean Corpuscular Hemoglobin 25.6 Mean Corpuscular Hemoglobin Concent 32.4 Red Cell Distribution Width 17.1 Platelet Count 165 Mean Platelet Volume 10.0 CBC Comment AUTO DIFF Differential Total Cells Counted 100 Neutrophils % (Manual) 62 Band Neutrophils % 28 Lymphocytes % 2 Monocytes % 8 Neutrophils # (Manual) 14.2 Differential Comment FINAL DIFF MANUAL Toxic Vacuolation PRESENT Platelet Estimate NORMAL Platelet Morphology Comment NORMAL Blood Urea Nitrogen 34 Creatinine 2.12 Random Glucose 183 Total Protein 7.4 Albumin 2.9 Calcium Level 7.9 Alkaline Phosphatase 92 Aspartate Amino Transf (AST/SGOT) 19 Alanine Aminotransferase (ALT/SGPT) 17 Total Bilirubin 0.5 Sodium Level 134 Potassium Level 3.7 Chloride Level 98 Carbon Dioxide Level 21.7 Anion Gap 14 Estimat Glomerular Filtration Rate 23 Lactic Acid Level 3.0 3.2 2.9 Phosphorus Level 1.6 Magnesium Level 1.0 Vitamin B12 Level 168 Urine Color LIGHT-RED Urine Turbidity CLOUDY Urine pH 6.0 Urine Specific [place] 1.017 Urine Protein 300 Urine Glucose (UA) NEG Urine Ketones NEG Urine Occult Blood LARGE Urine Nitrite NEG Urine Bilirubin NEG Urine Urobilinogen LESS THAN 2.0 Urine Leukocyte Esterase LARGE Urine RBC 152 Urine WBC Urine WBC Clumps MANY Urine Bacteria RARE Urine Hyaline Casts 4 Urine Mucus FEW Microscopic Urinalysis Comment CULTURE INDICATED Date/Time Source Procedure Growth Status 10/31/17 12:08 Blood Peripheral Aerobic Blood Culture Pending Received 10/31/17 12:08 Blood Peripheral Anaerobic Blood Culture Pending Received 10/31/17 13:30 Urine Clean Catch Urine Culture Pending Received Result Diagram: 10/31/17 1153 10/31/17 1153 Imaging Last Impressions Head CT 10/31/17 1321 Signed Impressions: Service Date/Time: October 14:02 - CONCLUSION: 1. No acute intracranial findings. Left sphenoid sinusitis. Remote lacunar infarct right frontal white matter. Samuel Lin MD Abdomen/Pelvis CT 10/31/17 1321 Signed Impressions: Service Date/Time: October 13:58 - CONCLUSION: 1. Development of innumerable small sclerotic lesions in the skeleton most characteristic of sclerotic bony metastatic disease. There is a reported history of malignancy. 2. Hepatomegaly with development of mild ascites. 3. Persistent moderate hydronephrosis with perinephric stranding similar to February 2017. Interval development of mild anasarca. 4. Gallbladder sludge. Gallo catheter in bladder. Samuel Lin MD Lung Scan-VQ Nuclear Medicine 10/31/17 0000 Signed Impressions: Service Date/Time: October 15:00 - CONCLUSION: Low probability scan for pulmonary embolism Jose Wright MD Chest X-Ray 10/31/17 0000 Signed Impressions: Service Date/Time: October 12:24 - CONCLUSION: No acute disease. Heart size appears enlarged. Jose Pablo MD Septic Shock Reassessment Septic shock perfusion: reassessment completed Assessment and Plan Assessment and Plan 72-year-old female with: Sepsis UTI Moderate hydronephrosis ASH Atrial fibrillation Hypotension Colon cancer with suspected metastatic disease Diabetes Type 2 - on insulin h/o Hypertension Hyperlipidemia 2D echo (03/16/17) with LVEF 50-55%, moderate mitral stenosis, [id number] aortic stenosis, pulmonary hypertension Depression Hypothyroidism h/o CVA h/o PE (03/2017) h/o Pyelo/PNA (03/2017 requiring intubation) Plan: Neuro: Follow neuro status. Avoid sedatives and narcotics. Cardiovascular: Status post 4 L crystalloid bolus, continue maintenance IV fluids. Digoxin 0.5 mg IV stat ordered for A. fib with RVR. Continue amiodarone p.o. Hold all antihypertensives. If patient remains hypotensive, may require pressors. On Xarelto for anticoagulation Pulmonary: Continue supplemental O2, bronchodilators as needed. May require BiPAP/intubation if respiratory status declines. GI/liver: P.o. diet as tolerated. Renal/: Gallo catheterization. Strict intake output, monitor and replete electrolytes, follow BUN/creatinine. Nephrology consult requested in view of a KI. Patient has previously had hydronephrosis as well which had resolved. ID: Patient received IV vancomycin and Zosyn and Rocephin in the ER. Continue Zosyn IV for empiric antibiotic coverage. Follow-up cultures. Heme-onc: Dr. Sly Candelario consulted for history of colon cancer in suspected metastatic lesions on CT abdomen pelvis. Endocrine: SSI for glycemic control. Check cortisol level to evaluate for adrenal insufficiency. Check TSH. Prophylaxis: Pepcid/SCDs. Continue Xarelto for full anticoagulation. Access: Has peripheral IVs and port. Discussed with the ER physician, discussed with ER nursing staff, discussed with family medicine residents, discussed with patient's at bedside. Discussed plan of care with patient's and he voiced understanding and was agreeable. Condition critical Time spent on critical care excluding procedures 70 minutes Fernando Srinivasan MD October 31, 2017 22:09
[2017-10-31 23:09] LABS: BICARBONATE 18.3 MEQ/L (21.0-32.0); CALCIUM 7.2 MG/DL (8.5-10.1); CREATININE 2.48 MG/DL (0.50-1.00); MAGNESIUM 0.8 MG/DL (1.5-2.5); TROPONIN I 0.02 NG/ML (0.02-0.05)
[2017-10-31] MEDS ORDERED: CHLORHEXIDINE GLUCONATE 2 % 1 PACK (2 CLOTHS)(extra cloths) TOPICAL PRN (23:15)
[2017-10-31] MEDS: PHENYLEPHRINE 40 MG in D5W 500 ML IV PRN (23:28)
[2017-10-31] MEDS ORDERED: TERBUTALINE INJ 1 MG/ML AMP SQ PRN (23:30)
[2017-10-31 23:52] LABS: TOTAL PROTEIN 6.8 GM/DL (6.4-8.2)
[2017-10-31 23:53] LABS: CALCIUM-PROTEIN CORRECTED 7.4 MG/DL (8.5-10.1)
[2017-11-01] VITALS (10 sets, daily range): BP systolic 97–145; BP diastolic 54–75; PULSE 98–117; RESP 28–36; TEMP 97.9–101; O2SAT 90–98
[2017-11-01] MEDS ORDERED: CALCIUM CHLORIDE INJ 1 GM in SODIUM CHLORIDE 0.9% INJ 100 ML IV ONE (00:45)
[2017-11-01] MEDS: PIPERACIL-TAZO 3.375 GM PREMIX 50 ML IV SCH ×2 (03:11→08:10)
[2017-11-01] MEDS: CHLORHEXIDINE GLUCONATE 2 % 1 PACK (2 CLOTHS)(taper/protocol) TOPICAL SCH (04:00)
[2017-11-01] MEDS: OXYBUTYNIN CHLORIDE 5 MG TAB PO SCH (04:56)
[2017-11-01] MEDS: LEVOTHYROXINE SODIUM 50 MCG TAB PO SCH (04:57)
[2017-11-01] MEDS ORDERED: HALOPERIDOL LACTATE 5 MG/ML AMP IV ONE (05:00)
--- NOTE | 2017-11-01 05:31 | RADRPT ---
EXAM DATE/TIME: 11/01/2017 03:52 [facility] COMPARISON: CT PULMONARY ANGIOGRAM, March 28, 2017, 21:35. CHEST SINGLE AP, March 26, 2017, 5:09. CT ABDOME N & PELVIS W/O CONTRAST, October 31, 2017, 13:58. CHEST SINGLE AP, October 31, 2017, 12:24. INDICATIONS : Shortness of breath. MEDICAL HISTORY : Hypertension. Carcinoma, colon. Atrial fibrillation. Diabetes. SURGICAL HISTORY : Colon resection. Oophorectomy. ENCOUNTER: Subsequent ACUITY: 2 days PAIN SCORE: Non-responsive. LOCATION: chest FINDINGS: A single view of the chest demonstrates cardiomegaly with bibasilar densities. Prominence of the righ t hilum. Right Mediport with tip at the cavoatrial junction. Osseous structures are intact. CONCLUSION: Bibasilar densities. Prominence of the right hilum. Jai Queen MD on November 01, 2017 at 5:29 Board Certified Radiologist. This report was verified electronically.
[2017-11-01 06:22] LABS: BASOPHIL % 0.2 % (0.0-2.0); EOSINOPHIL % 0.1 % (0.0-4.0); HEMATOCRIT 30.9 % (35.0-46.0); HEMOGLOBIN 9.9 GM/DL (11.6-15.3); LYMPH % 2.4 % (9.0-44.0); LYMPHOCYTE # 0.4 TH/MM3 (1.0-4.8); MEAN CELL VOLUME 81.4 FL (80.0-100.0); MEAN CORPUSCULAR HEMOGLOBIN 26.1 PG (27.0-34.0); MEAN CORPUSCULAR HGB CONC 32.1 % (32.0-36.0); MEAN PLATELET VOLUME 10.8 FL (7.0-11.0); MONO % 5.2 % (0.0-8.0); MONOCYTE # 0.8 TH/MM3 (0-0.9); NEUT % 92.1 % (16.0-70.0); PLATELET COUNT 138 TH/MM3 (150-450); RED CELL DISTRIBUTION WIDTH 16.9 % (11.6-17.2); WHITE BLOOD COUNT 16.2 TH/MM3 (4.0-11.0)
[2017-11-01 06:47] LABS: ALBUMIN 2.6 GM/DL (3.4-5.0); ALT (GPT) 15 U/L (10-53); AST (GOT) 23 U/L (15-37); BICARBONATE 16.8 MEQ/L (21.0-32.0); BLOOD UREA NITROGEN 45 MG/DL (7-18); CALCIUM 7.6 MG/DL (8.5-10.1); CHLORIDE 100 MEQ/L (98-107); GLOMERULAR FILTRATION RATE 16 ML/MIN (>89); GLUCOSE,RANDOM 157 MG/DL (74-106); SODIUM (NA) 133 MEQ/L (136-145)
[2017-11-01 07:08] LABS: ALKALINE PHOSPHATASE 64 U/L (45-117); PHOSPHORUS 3.2 MG/DL (2.5-4.9); TOTAL BILIRUBIN ADULT 0.9 MG/DL (0.2-1.0); TOTAL PROTEIN 7.1 GM/DL (6.4-8.2); TROPONIN I 0.02 NG/ML (0.02-0.05)
--- NOTE | 2017-11-01 07:57 | HHI.FPPN ---
Subjective Remarks Pt seen and examined this morning. Pt with low urine output overnight, worsening renal function. She was having a headache earlier this morning, now resolved. She endorses lower back pain, shortness of breath. She endorses abdominal discomfort which she attributes to pressure. She was not able to sleep overnight. (Vamsi Hunter MD R3) Objective Vitals Vital Signs Date Time Temp Pulse Resp B/P (MAP) Pulse Ox O2 Delivery O2 Flow Rate FiO2 11/01/17 06:00 101 11/01/17 04:00 112 11/01/17 04:00 98.1 112 36 97/61 (73) 90 11/01/17 02:00 112 11/01/17 00:00 106 11/01/17 00:00 100.6 106 31 97/54 (68) 93 10/31/17 23:28 102 78/44 10/31/17 22:00 109 10/31/17 21:00 100.4 107 31 92/54 (67) 92 10/31/17 21:00 107 10/31/17 20:49 10/31/17 20:28 106 40 90/51 (64) 97 Nasal Cannula 2.00 10/31/17 19:38 103.4 117 94/51 (65) 10/31/17 19:00 98.2 107 40 106/53 (70) 97 Nasal Cannula 3.00 10/31/17 18:05 125 30 139/57 (84) 96 Nasal Cannula 3.00 10/31/17 17:39 109 22 98/67 (77) 95 Nasal Cannula 3.00 10/31/17 16:50 120 16 93/51 (65) 94 Nasal Cannula 3.00 10/31/17 14:51 109 10/31/17 14:30 98.3 123 24 90/53 (65) 97 Nasal Cannula 4.00 10/31/17 12:49 98.3 113 18 83/50 (61) 94 Nasal Cannula 4.00 10/31/17 12:47 98.2 115 18 73/44 (54) 92 Nasal Cannula 4.00 10/31/17 12:47 94 Nasal Cannula 3.00 10/31/17 12:47 110 18 73/44 (54) 95 Nasal Cannula 4.00 10/31/17 11:24 118 10/31/17 11:19 97.6 118 16 97/55 (69) 98 I/O 10/31/17 10/31/17 10/31/17 11/01/17 11/01/17 11/01/17 07:00 15:00 23:00 07:00 15:00 23:00 Intake Total 2100 ml 1550 ml 710 ml Output Total 200 ml Balance 2100 ml 1550 ml 510 ml Intake Oral 400 ml IV Total 2100 ml 1550 ml 310 ml Output Urine Total 200 ml # Bowel Movements 0 (Vamsi Hunter MD R3) Result Diagram: 11/01/17 0611/01/17 06 Objective Remarks GENERAL: This is a well-nourished, well-developed patient, increased work of breathing. SKIN: No rashes, ecchymoses or lesions. Cool and dry. HEAD: Atraumatic. Normocephalic. No temporal or scalp tenderness. EYES: Pupils equal round and reactive. Extraocular motions intact. No scleral icterus. No injection or drainage. ENT: Nose without bleeding, purulent drainage or septal hematoma. Airway patent. No Sinus tenderness. Dry mucus membranes. NECK: Trachea midline. CARDIOVASCULAR: Tachycardic rate, normal rhythm without murmurs, gallops, or rubs. RESPIRATORY: Mildly increased work of breathing. Bibasilar crackles. Good air movement. GASTROINTESTINAL: Abdomen soft, distended. No guarding. MUSCULOSKELETAL: Extremities without clubbing, cyanosis, or edema. No joint tenderness, effusion, or edema noted. No calf tenderness. Negative Homans sign bilaterally. NEUROLOGICAL: Awake and alert. Cranial nerves II through XII intact. 4/5 strength of upper and lower extremities. Pt with difficulty finding words. (Vamsi Hunter MD R3) A/P Assessment and Plan Patient is a 72-year-old admitted due to UTI, meets sepsis criteria, also with sclerotic bony lesions concerning for colon cancer metastasis. Discharge Planning Time frame unclear as pt with unstable vitals currently in the ICU. (Vamsi Hunter MD R3) Attending Attestation Case discussed in detail with Dr Hunter atmahi seen and examined Agree with contents of above note See Orders atient septic and critical Appreciate Critical Cares consult (Jefferson Ambrosio MD) Problem List: (1) Sepsis ICD Codes: A41.9 - Sepsis, unspecified organism Plan: At time of admission pt met sepsis criteria with WBC count of 15.8, HR 109. WBC count 10.2 on 11/01 -Lactic acid 3.0-->3.2-->2.9-->3.0 will continue to monitor -See UTI below -Pt with increased WBC count, stable lactic acid. -Blood cultures with gram negative rods. 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 Candelario, appreciate recommendations Imaging: Abdomen/Pelvis CT 10/31/17: Innumerable small sclerotic lesions in the skeleton, most characteristic of sclerotic bony metastatic disease. Pt with history of colon cancer (5) Weakness ICD Codes: R53.1 - Weakness Plan: Differential includes acute infection vs bony metastasis vs deconditioning vs others -See plan above -PT consulted -Continue to monitor labs and vitals Imaging: Head CT 10/31/17: with no acute intracranial findings. Left sphenoid sinusitis. Remote lacunar infarct right frontal white matter. (6) Diabetes mellitus, type II ICD Codes: E11.9 - Type 2 diabetes mellitus Status: Chronic Plan: Will hold home medications -Low dose SSI -Continue to monitor blood sugar (7) Hypertension ICD Codes: I10 - Essential (primary) hypertension Status: Chronic Plan: Pt currently hypotensive, Hold home blood pressure medications -Pt currently on Pressors -To be resumed once BP normalizes -Will order Echo to evaluate heart function (8) Hypothyroidism ICD Codes: E03.9 - Hypothyroidism Status: Chronic Plan: Continue home Levothyroxine (9) FEN/PPX Plan: Fluid: Fluid per fish cutter Electrolytes: Continue to monitor. Nutrition: Diabetic diet DVT PPX: Willis, AISLINNs, Jamari Aguilar (Vamsi Hunter MD R3) Problem Qualifiers (1) Sepsis: Qualified Codes: A41.9 - Sepsis, unspecified organism (2) UTI (urinary tract infection): Vamsi Hunter MD R3 November 01, 2017 07:57 Jefferson Ambrosio MD November 01, 2017 13:50
[2017-11-01] MEDS: INSULIN ASPART SUPPLEMENTAL SCALE SQ SCH ×4 (08:00→20:31)
[2017-11-01] MEDS: SODIUM CHLORIDE 0.9% FLUSH 10 ML FLUSH IV FLUSH SCH ×2 (08:11→20:59)
[2017-11-01] MEDS: AMIODARONE 200 MG TAB PO SCH (08:14)
[2017-11-01] MEDS: ACETAMINOPHEN 325 MG TAB PO PRN ×2 (08:15→19:50)
--- NOTE | 2017-11-01 08:49 | HHI.CCPN ---
Subjective Remarks/Hospital Course 72-year-old female with a medical history significant for colon cancer, hypertension, hyperlipidemia, atrial fibrillation status post previous ablation , type 2 diabetes mellitus who presented to the ER with generalized weakness and was hypotensive on arrival. She was diagnosed to have a UTI/sepsis. She received 4 L fluids in the ER with systolic blood pressure coming up to the 90s however was tachycardic with heart rate going up to 130s atrial fibrillation. She had a negligible urine output despite 4 L IV fluids and an elevated lactic acid with concern for severe sepsis and acute kidney injury. Patient was admitted by family medicine service and critical care consult was requested by ER physician. I evaluated the patient in the ER. At that time she was on 2 L nasal cannula maintaining O2 sats around 98%. Her systolic blood pressure was in the mid 90 range. She was in atrial fibrillation with heart rate ranging from 110-120s. Patient was awake and alert at the time of my evaluation and was following commands appropriately. She denied any worsening shortness of breath or chest pain at the time. She did have some abdominal discomfort. She appeared slightly tachypneic. She had already received empiric antibiotic coverage. History was obtained by discussion with , ER physician, family medicine residents and review of records. Patient has reportedly not had anything to eat or drink for 30 hours prior to admission. She has been having burning with urination over the past 2 days. Patient had a head CT which was unremarkable, CT abdomen pelvis revealed moderate hydronephrosis, VQ scan was low probability for PE. 11/01: Patient appears critical, tachypneic. Urine output marginal 200 mL overnight shift time. Blood cultures 4 out of 4 bottles positive for gram- negative rods. Currently on 40 mcg/min of Raymond-Synephrine. Remaisn in A fib with RVR. Will start Amiodarone gtt, attempt rate control/cardioverted. Previous echo done last year shows EF 55-60%, moderate mitral stenosis, mild to moderate aortic stenosis, moderate TR, also will hold Xarelto start IV heparin Objective Vital Signs Date Time Temp Pulse Resp B/P (MAP) Pulse Ox O2 Delivery O2 Flow Rate FiO2 11/01/17 06:00 101 11/01/17 04:00 98.1 36 97/61 (73) 90 10/31/17 20:28 Nasal Cannula 2.00 Intake and Output 11/01/17 11/01/17 11/02/17 08:00 16:00 00:00 Intake Total 560 ml Output Total 200 ml Balance 360 ml Result Diagram: 11/01/1760111/01/17 06 Imaging Last Impressions Head CT 10/31/17 1321 Signed Impressions: Service Date/Time: October 14:02 - CONCLUSION: 1. No acute intracranial findings. Left sphenoid sinusitis. Remote lacunar infarct right frontal white matter. Samuel Lin MD Abdomen/Pelvis CT 10/31/17 1321 Signed Impressions: Service Date/Time: October 13:58 - CONCLUSION: 1. Development of innumerable small sclerotic lesions in the skeleton most characteristic of sclerotic bony metastatic disease. There is a reported history of malignancy. 2. Hepatomegaly with development of mild ascites. 3. Persistent moderate hydronephrosis with perinephric stranding similar to February 2017. Interval development of mild anasarca. 4. Gallbladder sludge. Gallo catheter in bladder. Samuel Lin MD Lung Scan-V Nuclear Medicine 10/31/17 0000 Signed Impressions: Service Date/Time: October 15:00 - CONCLUSION: Low probability scan for pulmonary embolism Jose Wright MD Chest X-Ray 10/31/17 0000 Signed Impressions: Service Date/Time: October 12:24 - CONCLUSION: No acute disease. Heart size appears enlarged. Jose Pablo MD Objective Remarks Gen: 72-year-old critically ill female who looks anxious critical tachypneic HEENT: No pallor or icterus, Neck: No JVD Chest/pulmonary: Air entry equal bilaterally, tachypneic diminished at the bases with fine crackles Cardiovascular: S1-S2 irregularly irregular, tachycardic, no gallop or murmur GI/abdomen: Soft, vague tenderness, bowel sounds present Extremities: Warm bilaterally, trace edema Neuro: Awake alert oriented 3, nonfocal grossly, moving all 4 extremities Urinary Catheter: Yes Assessment to: Continue A/P Assessment and Plan 72-year-old female with: ASSESSMENT: Septic shock Gram-negative bacteremia Atrial fibrillation with RVR UTI Lactic acidosis Moderate hydronephrosis Acute kidney failure Chronic atrial fibrillation Moderate mitral stenosis, mild to moderate aortic stenosis, moderate tricuspid regurgitation Colon cancer with suspected metastatic disease Vitamin B12 deficiency Diabetes Type 2 - on insulin h/o Hypertension Hyperlipidemia Depression Hypothyroidism h/o CVA h/o PE (03/2017) h/o Pyelo/PNA (03/2017 requiring intubation) PLAN: Neuro: -Follow neuro status. Avoid sedatives and narcotics. Cardiovascular: -Status post 4 L crystalloid bolus, hold maintenance IV fluids due to increasing respiratory distress/pulmonary edema. -Digoxin 0.5 mg IV stat ordered for A. fib with RVR. Hold amiodarone p.o, start IV amiodarone. Hold all antihypertensives. -Raymond-Synephrine GTT to keep map above 65. -Hold Xarelto for anticoagulation, start IV heparin -Need rate control due to moderate mitral stenosis and mild to moderate aortic stenosis Pulmonary: -Continue supplemental O2, bronchodilators as needed. -May require BiPAP/intubation if respiratory status declines. -Check ABG, repeat chest x-ray GI/liver: -Keep n.p.o. Pepcid for GI prophylaxis Renal/: -Gallo catheterization. Strict intake output, monitor and replete electrolytes , follow BUN/creatinine. -Nephrology consult requested in view of ASH. -Urology consulted in the setting of moderate hydronephrosis with oliguria and worsening renal failure, patient has previously had hydronephrosis as well which had resolved. ID: -Patient received IV vancomycin and Zosyn and Rocephin in the ER. Continue Zosyn IV for GNR bacteremia -Follow-up on urine culture Heme-onc: -Dr. Sly Candelario consulted for history of colon cancer in suspected metastatic lesions on CT abdomen pelvis. Endocrine: -SSI for glycemic control. Check cortisol level to evaluate for adrenal insufficiency. Check TSH. -Vitamin B12 level is low. Start vitamin B12 injections 1000 mcg IM daily for 10 days then monthly Prophylaxis: -Pepcid/SCDs. Hold Xarelto, start IV heparin Access: -Has peripheral IVs and port. Place central line if needed Discussed with family medicine residents, discussed with patient and her at bedside. Patient's condition is very critical with multiorgan dysfunction, worsening respiratory failure and renal failure along with severe sepsis Time spent on critical care excluding procedures 40 minutes Jan Garcia MD November 01, 2017 08:49
[2017-11-01] MEDS ORDERED: ASPIRIN EC 81 MG TABEC PO SCH (09:00)
[2017-11-01] MEDS ORDERED: DILTIAZEM-CD 240 MG CAP ER PO SCH (09:00)
[2017-11-01] MEDS ORDERED: AMIODARONE INJ 450 MG in DEXTROSE 5% IN WATE(EXCEL) INJ 241 ML IV PRN ×2 (09:01)
[2017-11-01] MEDS ORDERED: AMIODARONE INJ 450 MG in SODIUM CHLOR 0.9% (EXCEL) INJ 250 ML IV PRN (09:15)
[2017-11-01] MEDS: ALBUMIN 25% INJ 50 ML IV SCH ×2 (09:20→20:58)
[2017-11-01] MEDS: SODIUM BICARBONATE 8.4% INJ 50 ML ONE (09:21)
[2017-11-01] MEDS ORDERED: SODIUM BICARBONATE 8.4% INJ 50 MEQ/50 ML SYR IV PUSH ONE (09:30)
--- NOTE | 2017-11-01 09:38 | MB ---
cc: Sly Candelario MD DATE: 11/01/2017 ATTENDING PHYSICIAN: Dr. Hunter. REASON FOR CONSULTATION: Oncology consulted to render an opinion a patient with a history of colon cancer, admitted with sepsis. HISTORY OF PRESENT ILLNESS: The patient is a very pleasant 72-year-old female with history of colon cancer who started having increased weakness and left-sided back pain on . She was supposed to go get a PET scan, but could not do the PET scan because of weakness. She also had a temperature up to 101. She was having dysuria and abdominal discomfort. She threw up one time. She was so weak that she "slumped down to the floor when she tried to get out of bed". She was also noted to have mild confusion. Her brought her into the emergency room. Her temperature was up to 103. She denies any chest pain. She had mild shortness of breath. Denies significant cough. Denies any bleeding or bruising. Denies any leg tenderness. Denies any headache, focal numbness or weakness. PAST MEDICAL HISTORY: 1. Colon cancer. 2. Gastrointestinal bleed. 3. Atrial fibrillation, status post ablation. 4. Bone lesion. 5. L3 compression fracture. 6. Depression. 7. Diabetes. 8. Hypertension. 9. Hyperlipidemia. 10. Hypothyroidism. 11. TIA x 2. PAST SURGICAL HISTORY: 1. Cardiac ablation. 2. Exploratory laparotomy. 3. Appendectomy. 4. . 5. Upper endoscopy. 6. Colonoscopy. 7. Hernia repair. 8. Colon resection. FAMILY HISTORY: Two sons both are healthy. A family history of breast cancer. SOCIAL HISTORY: Quit tobacco more than 15 years ago. Drinks occasionally. Lives with her . ALLERGIES: CODEINE AND SULFA. CURRENT MEDICATIONS: 1. Amiodarone. 2. Prozac. 3. Pravachol. 4. Xarelto. 5. Venlafaxine. 6. Albumin. 7. Synthroid. 8. Zosyn. REVIEW OF SYSTEMS: CONSTITUTIONAL: As above. EYES: Negative. ENT: Negative. CARDIOVASCULAR: No chest pressure or palpitation. RESPIRATORY: As above. GASTROINTESTINAL: As above. GENITOURINARY: As above. MUSCULOSKELETAL: As above. HEMATOLOGIC: Negative. ENDOCRINE: Negative. DERMATOLOGY: Negative. PSYCHIATRIC: Negative. NEUROLOGIC: Negative. PHYSICAL EXAMINATION: VITAL SIGNS: T-max 103.4, T-current 98.1, blood pressure 97/61, O2 saturation 90% percent on 2 liters nasal cannula. GENERAL: She is alert, oriented x 3. She looks lethargic. HEENT: Atraumatic, normocephalic. Pupils are equal, round, reactive to light. Extraocular muscles intact. No scleral icterus. Oropharynx dry mucosa. No lesion. NECK: No thyromegaly. LYMPHATIC: No palpable cervical, clavicular, axillary or inguinal lymph node. CARDIOVASCULAR: Regular S1, S2. No murmur. LUNGS: Clear to auscultation bilaterally. No wheeze or rhonchi. ABDOMEN: Soft, slightly distended, mild tenderness. No rebound or rigidity. Positive bowel sounds. I could not palpate the liver or spleen. EXTREMITIES: No cyanosis, clubbing, or edema. BACK: Not examined. SKIN: No rash or petechiae. NEUROLOGIC: Nonfocal. EXTERNAL LINE: Gallo catheter noted. Urine is cloudy. LABORATORY DATA: WBC 16.2, hemoglobin 9.9, platelet count 138, creatinine 2.9. ASSESSMENT: 1. Septic shock. She appeared to have a urinary tract infection/pyelonephritis. She started having left back pain and increased weakness on . She had fever up to 103.4 when she came to the hospital. Urine looks cloudy. Blood culture grew gram-negative rods. Urine culture is pending. Her symptoms appeared to be due to infection. 2. Leukocytosis due to urinary tract infection. She has 28% bandemia. 3. History of sigmoid colon adenocarcinoma, status post resection. Pathologic stage [id number]. She has high risk colon cancer. She completed adjuvant Xeloda 08/2016. Recent CT showed widespread sclerotic bone lesions; however, bone scan did not show any uptake. She has no significant bone pain. The lesion was too small for biopsy. I have sent her for a PET scan which was supposed to be done yesterday, but she was admitted with sepsis. She will need a PET scan once discharged from the hospital for further evaluation. 4. History of pulmonary embolism developed when she was admitted to the hospital last year with sepsis. She is currently on Xarelto. She had no new symptoms. Her V/Q scan showed low probability for pulmonary embolism. Will need to stop the Xarelto due to acute renal failure. 5. Acute renal failure likely due to infection and sepsis. 6. Anemia likely due to the sepsis. She also had mild thrombocytopenia. She may have a low-grade consumptive process. PLAN: 1. Discussed with the patient and , their questions were answered. 2. Continue antibiotic per primary team. 3. Stop Xarelto due to renal failure and use heparin for deep venous thrombosis prophylaxis. 4. The patient will need outpatient PET scan to further evaluate the bone lesion. Thank you, Dr. Hunter, for asking me to see this patient. Sly Candelario MD [facility]ird/SRI , 09:06 AM , 09:37 AM MTDD
--- NOTE | 2017-11-01 09:41 | RADRPT ---
EXAM DATE/TIME: 11/01/2017 08:58 [facility] COMPARISON: CHEST SINGLE AP, November 01, 2017, 3:52. INDICATIONS : Respiratory distress. SOB. MEDICAL HISTORY : Hypertension. Carcinoma, colon. Atrial fibrillation. Diabetes SURGICAL HISTORY : Colon resection. Oophorectomy ENCOUNTER: Subsequent ACUITY: 2 days PAIN SCORE: 0/10 LOCATION: Bilateral chest FINDINGS: There has been slight improvement in aeration with decrease in perihilar and basilar parenchymal opac ities. Cardiac contour is grossly stable. Right chest port is stable in good position. CONCLUSION: Slight improvement in the aeration Jose Wright MD on November 01, 2017 at 9:37 Board Certified Radiologist. This report was verified electronically.
[2017-11-01] MEDS: PRAVASTATIN SOD 40 MG TAB PO SCH (10:11)
[2017-11-01] MEDS: FLUoxetine HCL 20 MG CAP PO SCH (10:11)
[2017-11-01] MEDS: DOCUSATE SODIUM 50 MG/SENNA 8.6 MG TAB PO SCH ×2 (10:11→20:59)
[2017-11-01] MEDS: VENLAFAXINE HCL XR 75 MG CAP PO SCH (10:12)
[2017-11-01] MEDS: CYANOCOBALAMIN 1000 MCG/ML VIAL SQ SCH (11:00)
--- NOTE | 2017-11-01 11:25 | MB ---
cc: Cuauhtemoc Figueroa MD DATE: 11/01/2017 REASON FOR CONSULTATION: Elevated BUN and creatinine for evaluation. HISTORY OF PRESENT ILLNESS: This is a 72-year-old female with past medical history of hypertension, diabetes mellitus, hyperlipidemia, atrial fibrillation, history of colon cancer, history of acute kidney injury in the past. She was admitted with complaint of worsening shortness of breath and recurrent falls. I was called to see the patient because of elevated BUN and creatinine. The patient was seen by me when she was here in February of last year. At that time, she also has acute kidney injury and her creatinine was as high as 1.8, but it was improving and it went down to 0.6-0.7 which is her baseline. Now, she came with a creatinine of 2.1 and it has gone up to 2.9. Patient had some nausea and vomiting at home. She was not eating well and she fell down many times at home, she was feeling cold. There is worsening shortness of breath, more with exertion. Has mild cough which is mainly dry. There is no chest pain, no palpitations. Denies any history of diarrhea. She did not notice any decrease in the urine output. She was taking some pain medication. She does not know exactly what was the name and how much she was taking. PAST MEDICAL HISTORY: Hypertension, diabetes mellitus, hyperlipidemia, atrial fibrillation, hypothyroidism, colon cancer, history of cerebrovascular accident. PAST SURGICAL HISTORY: Hernia surgery, abdominal surgery, history of section. REVIEW OF SYSTEMS: Patient has generalized weakness, feeling tired, has shortness of breath with cough which is mainly dry. There is no chest pain. No palpitations. She has nausea, vomiting at home but it is improving. There is no abdominal pain. Denies any history of diarrhea. No dysuria or hematuria. She currently has Gallo catheter. SOCIAL HISTORY: The patient is and lives with her . She stopped smoking in 2009. There is no history of heavy alcoholism. FAMILY HISTORY: Noncontributory. ALLERGIES: SHE IS ALLERGIC TO SULFA DRUGS AND CODEINE. MEDICATIONS: Currently she is on the following medications: 1. IV fluid. She is getting sodium bicarbonate at 50 an hour. 2. Elsa-Colace 1 tablet b.i.d. 3. Prozac 20 mg once a day. 4. Pravachol 40 mg daily. 5. Effexor 75 mg once a day. 6. Vitamin B12 1000 mcg daily. 7. Synthroid 50 mcg daily. 8. Albumin 50 mL q. 12 hours. 9. Zosyn 2.25 grams IV q. 6 hours. 10. Insulin as per sliding scale. 11. She received one dose of vancomycin yesterday. 12. Tylenol p.r.n. PHYSICAL EXAMINATION: GENERAL: The patient is awake, alert. She is in mild respiratory distress. VITAL SIGNS: Her blood pressure last was 97/61, blood pressure was low and the lowest recorded was 73/44, temperature is 98.1 with T-max of 103.4. HEENT: HEAD Pupils are mid-constricted. Nonicteric sclerae. Conjunctivae are pale. NECK: Supple. JVD is not elevated. LUNGS: The patient has bilateral decreased air entry with basal rales and scattered wheezing. HEART: S1, S2. Regular rhythm. ABDOMEN: Distended, soft, lax. There is no tenderness. Bowel sounds positive. EXTREMITIES: There is no pedal edema. INVESTIGATIONS: WBC count is 16.2, hemoglobin 9.9, platelet count 138, neutrophils 92.1%, eosinophils 0.1. Sodium 133, potassium 4.1, chloride 100, bicarbonate 16.8, BUN 45, creatinine 2.9, calcium. Calcium is 7.6. Lactic acid was 3.0, phosphorus 3.2. AST and ALT normal, total bilirubin 0.9, albumin is 2.6 with total protein of 7.1. TSH is 4.1. Urinalysis showing protein of 300 and large occult blood, large leukocyte esterase, RBCs and WBCs innumerable. Blood culture growing gram negative E. coli. The urine culture previously had E coli. The one from yesterday is still pending. IMAGING STUDIES: The patient has a CT scan of the abdomen and pelvis done without IV contrast shows the patient has a small sclerotic lesion in the skeleton, hepatomegaly with mild ascites, moderate hydronephrosis similar to February 2017. Gallbladder sludge. Kidneys are reported as persistent mild to moderate bilateral hydronephrosis with perinephric stranding. Chest x-ray was done which shows that patient has bilateral basal densities, prominent right hilum. V/Q scan of the lung was done which showed low probability for pulmonary embolism. ASSESSMENT AND PLAN: 1. Acute kidney injury. 2. Metabolic acidosis. 3. Bacteremia and shock status. 4. Hypotension. 5. Urinary tract infection. 6. History of colon cancer. 7. Diabetes mellitus. 8. Anemia. The patient has acute kidney injury, most likely is related to acute tubular necrosis from the hypotension or from the underlying infection. She has been nonoliguric. I agree with continued IV fluid with sodium bicarbonate and continue with antibiotics. Avoid any nephrotoxins. Follow the urine output and the BUN and creatinine. If BUN and creatinine are not improving, then we will consider urology consult for the hydronephrosis. Thank you for the consultation, and I will follow the patient while she is in the hospital. MD KIRT Hogue/DAVID , 10:46 AM , 11:23 AM
[2017-11-01 12:21] LABS: HEMATOCRIT 30.4 % (35.0-46.0); HEMOGLOBIN 9.9 GM/DL (11.6-15.3); MEAN CELL VOLUME 80.1 FL (80.0-100.0); MEAN CORPUSCULAR HEMOGLOBIN 26.2 PG (27.0-34.0); MEAN CORPUSCULAR HGB CONC 32.7 % (32.0-36.0); PLATELET COUNT 108 TH/MM3 (150-450); RED BLOOD COUNT 3.79 MIL/MM3 (4.00-5.30); RED CELL DISTRIBUTION WIDTH 16.8 % (11.6-17.2); WHITE BLOOD COUNT 10.2 TH/MM3 (4.0-11.0)
[2017-11-01] MEDS: SODIUM BICARBONATE 8.4% INJ 75 MEQ in SODIUM CHLOR 0.45% 1000 ML INJ 1,000 ML IV SCH (12:24)
[2017-11-01] MEDS: AMIODARONE INJ 450 MG in SODIUM CHLOR 0.9% (EXCEL) INJ 250 ML IV PRN ×2 (12:25→19:52)
[2017-11-01 12:32] LABS: INTERNATIONAL NORMALIZED RATIO 1.5 RATIO; PROTHROMBIN TIME - PATIENT 15.3 SEC (9.8-11.6)
[2017-11-01] MEDS ORDERED: PHENAZOPYRIDINE HCL 100 MG TAB PO PRN (13:45)
[2017-11-01] MEDS: HEPARIN-D5W 25,000 U/250 ML 250 ML IV PRN (14:29)
[2017-11-01] MEDS: PIPERACIL-TAZO 2.25 GM PREMIX 50 ML IV SCH ×2 (15:00→20:58)
--- NOTE | 2017-11-01 15:57 | MB ---
cc: Michael Alvarezn Joel DO DATE: 11/01/2017 HISTORY OF PRESENT ILLNESS: Ms. Marroquin is a pleasant 72-year-old female who presented with generalized weakness and hypotension to the emergency room. She has had history of UTIs with sepsis in the past. The last episode was noted to be in February. She does state that she does have incontinence and she currently wears diapers. She also has a long history of diabetes type 2 for over 20 years. She also has evidence of peripheral neuropathy. She also admits to not voiding frequently during the day and maybe waiting every 6 hours to urinate other than her episodes of incontinence. She underwent a CT scan recently, which showed mild bilateral hydronephrosis with perinephric stranding, which is similar to her CAT scan back in February of 2017. Her urine culture is presently growing out a gram-negative carmela as well as the blood cultures. PAST MEDICAL HISTORY: Includes colon cancer, type 2 diabetes, hypertension, hyperlipidemia, coronary artery disease, atrial fibrillation, depression, hypothyroidism, CVA in 2014, PE in 2016, pyelonephritis back in February 2017. PAST SURGICAL HISTORY: Noted for hernia repair in 1999 and prior abdominal surgery. MEDICATIONS: Please refer to the chart. ALLERGIES: SULFA AND CODEINE. FAMILY HISTORY: Mother with breast cancer. Father had emphysema. SOCIAL HISTORY: Denies drinking. She smoked in the past and quit in 2009. Denies any drug use. REVIEW OF SYSTEMS: She has abdominal bloating with pain. She denies chest pain. She has mild shortness of breath at present. She denies gait disturbances, bleeding disorders. She does note urinary incontinence. She notes headache and notes confusion. She also had some vomiting, but denies constipation or diarrhea. The remaining review of systems were reviewed and were negative. PHYSICAL EXAMINATION: VITAL SIGNS: Temperature 98.1, heart rate 111, respiratory rate respiratory rate is 113/55. GENERAL: She is a well-developed, well-nourished, 72-year-old female in no acute distress. HEENT: Normocephalic, atraumatic. Pupils equal, round, regular, reactive to light. Extraocular movements intact. NECK: Supple. HEART: Rates sinus tachycardia. Good breath sounds bilaterally. ABDOMEN: Soft, distended, some right lower quadrant tenderness is noted. GENITOURINARY: Gallo catheter is in place draining clear urine. EXTREMITIES: Show no evidence of cyanosis, clubbing, or edema. NEUROLOGIC: Cranial nerves 2-12 are intact. LABORATORY DATA: White count 7.2, hemoglobin 9.9, hematocrit 30.4, platelet count of 108 Sodium 133, potassium 4.1, chloride 100, CO2 16.8, BUN 45, creatinine 2.9, glucose 157. Urinalysis: Many red and white cells. Blood cultures and urine cultures show gram-negative rods. IMAGING STUDIES: There is mild bilateral hydronephrosis with perinephric stranding. ASSESSMENT AND PLAN: This is a 72-year-old female who is admitted with urosepsis with evidence of perinephric stranding, which was present back in February 2017. Given the patient recently being on norepinephrine drip and sepsis, the acute kidney injury could be related to this as she has mild to moderate hydronephrosis. Would maintain Gallo catheter for now and wean off pressors as appropriate. Continue IV antibiotics for gram-negative sepsis. I would not recommend stent insertion at this point, as I do not believe that she is obstructed and this is related to her sepsis and hypovolemic state from sepsis. We will follow closely with you. We will repeat an ultrasound of the kidneys next week to evaluate for resolution of her hydronephrosis. Thank you for the consult and allowing me to participate in the care of this patient. DO MADDI Strong , 02:56 PM , 03:56 PM
--- NOTE | 2017-11-01 17:21 | ECHRPT ---
Indication: ATRIAL FIB/FLUTTER CONCLUSIONS Normal left ventricular size. Moderate concentric left ventricular hypertrophy. The left ventricular systolic function is hyperdynamic with an estimated ejection fraction in the ra nge of 65- 70%. The left atrial size is mildly dilated. No atrial level shunt is demonstrated by color flow Doppler interrogation. The aortic root and proximal ascending aorta are not well visualized. Mild mitral valve regurgitation. Aortic valve sclerosis is present. There is moderate tricuspid valve regurgitation. The estimated pulmonary arterial pressure is 67.2 mmHg. There is estimated dsvaegrk-bt-[id number] pulmonary hypertension present (range 60-70 mmHg). BP: / HR: Rhythm: Sinus MEASUREMENTS (Male / Female) Normal Values Technical Quality:Fair 2D ECHO LV Diastolic Diameter PLAX 3.5 cm 4.2 - 5.9 / 3.9 - 5.3 cm LV Systolic Diameter PLAX 2.6 cm IVS Diastolic Thickness 1.5 cm 0.6 - 1.0 / 0.6 - 0.9 cm LVPW Diastolic Thickness 1.5 cm 0.6 - 1.0 / 0.6 - 0.9 cm LV Relative Wall Thickness 0.9 RV Internal Dim ED PLAX 3.5 cm LVOT Diameter 2.1 cm Aortic Root Diameter 3.1 cm LA Systolic Diameter LX 4.4 cm 3.0 - 4.0 / 2.7 - 3.8 cm M-MODE AV Cusp Separation MM 1.6 cm DOPPLER AV Peak Velocity 237.0 cm/s AV Peak Gradient 22.5 mmHg AV Mean Gradient 13.7 mmHg AV Velocity Time Integral 34.2 cm LVOT Peak Velocity 122.2 cm/s LVOT Peak Gradient 6.0 mmHg LVOT Velocity Time Integral 18.6 cm AV Area Cont Eq vti 1.9 cm AV Area Cont Eq pk 1.8 cm Mitral E Point Velocity 177.5 cm/s LV E' Lateral Velocity 6.5 cm/s Mitral E to LV E' Lateral Ratio 27.4 LV E' Septal Velocity 6.0 cm/s Mitral E to LV E' Septal Ratio 29.6 TR Peak Velocity 378.0 cm/s TR Peak Gradient 57.2 mmHg Right Atrial Pressure 10.0 mmHg Pulmonary Artery Systolic Pressu 67.2 mmHg Right Ventricular Systolic Press 67.2 mmHg PV Peak Velocity 60.2 cm/s PV Peak Gradient 1.4 mmHg FINDINGS LEFT VENTRICLE Normal left ventricular size. Moderate concentric left ventricular hypertrophy. The left ventricular systolic function is hyperdynamic with an estimated ejection fraction in the ra nge of 65- 70%. RIGHT VENTRICLE Normal right ventricular size and systolic function. LEFT ATRIUM The left atrial size is mildly dilated. RIGHT ATRIUM The right atrial size is normal. ATRIAL SEPTUM No atrial level shunt is demonstrated by color flow Doppler interrogation. AORTA The aortic root and proximal ascending aorta are not well visualized. MITRAL VALVE Mild mitral valve regurgitation. AORTIC VALVE Aortic valve sclerosis is present. TRICUSPID VALVE There is moderate tricuspid valve regurgitation. The estimated pulmonary arterial pressure is 67.2 mmHg. There is estimated pcnukcry-pc-uzxphp pulmonary hypertension present (range 60-70 mmHg). PULMONARY VALVE No pulmonary valve regurgitation or stenosis. VESSELS The inferior vena cava is normal in size. PERICARDIUM No pericardial effusion. Keo Donaldson MD (Electronically Signed) Final Date:01 Nov 2017 17:20
[2017-11-01] MEDS: ACETAMINOPHEN/HYDROcodone 325 MG/5 MG TAB PO PRN (20:59)
[2017-11-01] MEDS: TEMAZEPAM 15 MG CAP PO PRN (22:43)
[2017-11-02] VITALS (19 sets, daily range): BP systolic 87–155; BP diastolic 54–79; PULSE 72–143; RESP 18–33; TEMP 98.2–99.8; O2SAT 94–100
[2017-11-02] MEDS ORDERED: HALOPERIDOL LACTATE 5 MG/ML AMP IV ONE (03:30)
[2017-11-02] MEDS: PIPERACIL-TAZO 2.25 GM PREMIX 50 ML IV SCH ×2 (03:30→09:31)
[2017-11-02] MEDS ORDERED: ETOMIDATE 20 MG/10 ML VIAL IV PUSH ONE (03:45)
[2017-11-02] MEDS ORDERED: ROCURONIUM INJ 50 MG/5 ML VIAL IV ONE (03:45)
[2017-11-02] MEDS ORDERED: ETOMIDATE 40 MG/20 ML VIAL ONE (03:47)
[2017-11-02 03:54] LABS: AUTOMATED NEUTROPHIL # 1.7 TH/MM3 (1.8-7.7); BASOPHIL % 0.7 % (0.0-2.0); EOSINOPHIL % 1.5 % (0.0-4.0); HEMATOCRIT 32.2 % (35.0-46.0); HEMOGLOBIN 10.5 GM/DL (11.6-15.3); LYMPH % 15.9 % (9.0-44.0); LYMPHOCYTE # 0.3 TH/MM3 (1.0-4.8); MEAN CELL VOLUME 80.6 FL (80.0-100.0); MEAN CORPUSCULAR HEMOGLOBIN 26.3 PG (27.0-34.0); MEAN CORPUSCULAR HGB CONC 32.6 % (32.0-36.0); MEAN PLATELET VOLUME 9.9 FL (7.0-11.0); MONO % 1.8 % (0.0-8.0); NEUT % 80.1 % (16.0-70.0); PLATELET COUNT 109 TH/MM3 (150-450); RED BLOOD COUNT 3.99 MIL/MM3 (4.00-5.30); RED CELL DISTRIBUTION WIDTH 17.5 % (11.6-17.2); WHITE BLOOD COUNT 2.1 TH/MM3 (4.0-11.0)
[2017-11-02] MEDS: CHLORHEXIDINE GLUCONATE 2 % 1 PACK (2 CLOTHS)(taper/protocol) TOPICAL SCH (04:00)
[2017-11-02 04:03] LABS: INTERNATIONAL NORMALIZED RATIO 1.3 RATIO
[2017-11-02] MEDS ORDERED: SODIUM CHLOR 0.9% 1000 ML INJ 1,000 ML IV ONE ×2 (04:15→05:00)
[2017-11-02] MEDS ORDERED: MIDAZOLAM HCL 2 MG/2 ML VIAL IV PUSH PRN (04:15)
--- NOTE | 2017-11-02 04:22 | PD.PROCEDR ---
Procedure Note Procedure PROCEDURE NOTE PROCEDURE: Endotracheal intubation INDICATION: Acute respiratory failure DETAILS OF PROCEDURE: The patient was placed in optimal position and preoxygenated with 100% FiO2 via NR. Oximeter oxygen saturation of 98% was obtained prior to t laryngoscopy. The patient was administered Etomidate 20 mg IV for sedation and Rocuronium 50 mg IV. Laryngoscopy was performed with a 3 Glidescope blade and a grade I Cormack-Lehane view was obtained. On single attempt a size 8 endotracheal tube was visualized passing through the cords. Correct placement was confirmed with colorimetric CO2 detector. Breath sounds were equal bilaterally. No sounds auscultated over the stomach. The endotracheal tube was secured with a commercial tube shepherd at a depth of 22 cm at the lips. The patient was connected to the ventilator. The patient tolerated the procedure well without any apparent complication. Oxygen saturations were maintained greater than 97% at all times. Stat chest x-ray was ordered. Raven Anderson MD November 02, 2017 04:22
[2017-11-02] MEDS: PROPOFOL 1000 MG/100 ML INJ 100 ML IV PRN (04:24)
[2017-11-02] MEDS: fentaNYL DRIP 250 ML IV PRN (04:28)
[2017-11-02 04:36] LABS: ALBUMIN 2.7 GM/DL (3.4-5.0); CALCIUM 7.3 MG/DL (8.5-10.1); CREATININE 2.59 MG/DL (0.50-1.00); MAGNESIUM 1.6 MG/DL (1.5-2.5); PHOSPHORUS 4.3 MG/DL (2.5-4.9); TOTAL BILIRUBIN ADULT 1.5 MG/DL (0.2-1.0); TOTAL PROTEIN 7.3 GM/DL (6.4-8.2)
[2017-11-02 04:40] LABS: CALCIUM-PROTEIN CORRECTED 7.3 MG/DL (8.5-10.1)
[2017-11-02] MEDS ORDERED: CALCIUM GLUCONATE INJ 1 GM in DEXTROSE 5% IN WATER 100ML INJ 100 ML IV ONE ×2 (04:45)
[2017-11-02] MEDS ORDERED: MAGNESIUM SULFATE 1 GM PREMIX 100 ML IV ONE (05:00)
[2017-11-02] MEDS ORDERED: TOBRAMYCIN IV ONE (05:15)
[2017-11-02] MEDS ORDERED: SODIUM CHLORIDE 0.9% IV ONE (05:15)
[2017-11-02] MEDS ORDERED: Tobramycin Consult Pharmacy 1 EA OTHER SCH (05:15)
[2017-11-02] MEDS: PHENYLEPHRINE 40 MG in D5W 500 ML IV PRN (05:34)
[2017-11-02] MEDS: VASOPRESSIN INJ 40 UNITS in DEXTROSE 5% IN WATER 100ML INJ 98 ML IV SCH ×2 (05:35)
[2017-11-02] MEDS: HYDROCORTISONE SOD SUCCINATE 100 MG VIAL IV PUSH SCH ×4 (05:49→21:16)
[2017-11-02] MEDS: LEVOTHYROXINE SODIUM 50 MCG TAB PO SCH (05:49)
--- NOTE | 2017-11-02 05:57 | RADRPT ---
EXAM DATE/TIME: 11/02/2017 05:35 [facility] COMPARISON: CHEST SINGLE AP, November 01, 2017, 8:58. INDICATIONS : Shortness of breath, status post intubation.. MEDICAL HISTORY : Hypertension. Carcinoma, colon. A-Fib Diabetes SURGICAL HISTORY : Colon resection. ENCOUNTER: Subsequent ACUITY: 3 days PAIN SCORE: 0/10 LOCATION: Bilateral chest FINDINGS: A single AP semierect view of the chest was obtained and demonstrated interval placement of an endotr acheal tube with the tip 4 cm above the angelica. Nasogastric tube has been placed and is seen coursing through the esophagus and into the stomach. The right-sided implantable port catheter remains in whit[place] ce. Hazy opacity is noted at both lung bases. The heart size remains mildly prominent. CONCLUSION: 1. Interval intubation and placement of nasogastric tube. 2. Hazy opacities present both lung bases. Robe Menchaca MD on November 02, 2017 at 5:52 Board Certified Radiologist. This report was verified electronically.
[2017-11-02] MEDS: INSULIN ASPART SUPPLEMENTAL SCALE SQ SCH ×4 (08:00→21:00)
[2017-11-02] MEDS: CHLORHEXIDINE 0.12% (ORAL KIT) 15 ML CUP MT SCH (08:00)
--- NOTE | 2017-11-02 08:39 | EKG ---
Date Performed: 10/31/2017 Time Performed: 17:01:17 PTAGE: 72 years EKG: ATRIAL FIBRILLATION WITH RAPID VENTRICULAR RESPONSE INDETERMINATE AXIS LOW QRS VOLTAGE IN E XTREMITY LEADS MODERATE ST DEPRESSION ABNORMAL QRS-T ANGLE ABNORMAL ECG PREVIOUS TRACING : 03/29/2017 09.42 DOCTOR: Juan Lubin Interpretating Date/Time 11/02/2017 08:37:49
--- NOTE | 2017-11-02 08:57 | HHI.FPPN ---
Subjective Remarks Pt seen and examined this morning. Interval events include overnight intubation due tachypnea, tachycardia, and hypercapnea. Pt with continued low urine output overnight, worsening renal function. Continues to be on amiodarone, now on fentanyl gtt for sedation. at bedside and all questions answered at this time. He notes that she was on ventilator for two week in approximately February and eventually went to [facility]. He does not her overall functional status was worse after prolonged hospitalization and rehab and "she hasn't been the same". When asked about patient's wishes, he endorses that she has been full code and wants aggressive measures as needed. Objective Vitals Vital Signs Date Time Temp Pulse Resp B/P (MAP) Pulse Ox O2 Delivery O2 Flow Rate FiO2 11/02/17 08:06 98 60 11/02/17 06:00 117 11/02/17 06:00 80 11/02/17 05:35 130 78/53 11/02/17 05:34 119 78/53 11/02/17 04:55 97 100 11/02/17 04:05 97 100 11/02/17 04:00 100 11/02/17 04:00 142 11/02/17 04:00 99.8 143 22 111/63 (79) 94 11/02/17 02:00 129 11/02/17 00:25 Nasal Cannula 4.00 11/02/17 00:00 106 11/02/17 00:00 98.2 112 33 155/79 (104) 94 11/01/17 22:00 98 11/01/17 20:50 29 11/01/17 20:00 98.4 114 32 138/64 (88) 94 11/01/17 20:00 112 11/01/17 20:00 Nasal Cannula 3.00 11/01/17 19:52 111 128/80 11/01/17 18:30 112 11/01/17 18:00 113 11/01/17 16:00 97.9 113 28 113/75 (88) 98 11/01/17 16:00 113 11/01/17 12:25 111 113/55 11/01/17 12:00 98.7 112 36 113/55 (74) 95 11/01/17 12:00 117 I/O 11/01/17 11/01/17 11/01/17 11/02/17/12/18 5/12/18 07:00 15:00 23:00 07:00 15:00 23:00 Intake Total 710 ml 290 ml 600 ml 2846.55 ml Output Total 200 ml 600 ml 1050 ml Balance 510 ml 290 ml 0 ml 1796.55 ml Intake Oral 400 ml 500 ml 240 ml IV Total 310 ml 290 ml 100 ml 2606.55 ml Output Urine Total 200 ml 600 ml 750 ml Gastric Drainage Total 300 ml # Bowel Movements 0 0 1 Result Diagram: 11/02/1733911/02/17339 Objective Remarks GENERAL: This is a well-nourished, well-developed patient, on ventilator and sedation. SKIN: No rashes, ecchymoses or lesions. Cool and dry. EYES: Pupils equal round and reactive. ENT: Nose without bleeding, purulent drainage or septal hematoma. Airway patent. No Sinus tenderness. Dry mucus membranes. NECK: Trachea midline. CARDIOVASCULAR: Tachycardia, upper airway sounds preclude auscultation of heart sounds RESPIRATORY: Ventilator GASTROINTESTINAL: Abdomen soft, distended. Normal bowel sounds. OG tube in place MUSCULOSKELETAL: Extremities without clubbing, cyanosis, or edema. NEUROLOGICAL: Sedation. A/P Assessment and Plan Patient is a 72-year-old admitted due to UTI, meets sepsis criteria, also with sclerotic bony lesions concerning for colon cancer metastasis. Discharge Planning Prognosis unclear at this time Last 24hr patient clinically has worsened and is now on ventilator Critical Care managing at this time, appreciate care of patient Notably asserts patient has always been full code with aggressive measures desired Problem List: (1) Respiratory failure, acute ICD Codes: J96.00 - Acute respiratory failure, unspecified whether with hypoxia or hypercapnia Status: Resolved Plan: Overnight required intubation for tachypnea and respiratory distress, on ventilator since 11/02 AM (2) Sepsis ICD Codes: A41.9 - Sepsis, unspecified organism Status: Resolved Plan: At time of admission pt met sepsis criteria with WBC count of 15.8, HR 109. WBC count 2.1 on 11/02 Creatinine 2.12 -Lactic acid 3.0-->3.2-->2.9-->3.0 will continue to monitor -See UTI below -Pt with increased WBC count, stable lactic acid. -Blood cultures with gram negative rods. -Zosyn 2.5g Q6hrs (5/10-11/02) -Tobramycin IV x 1 11/02 -Renally dose Meropenem 11/02 - current Sensitivities are pending for E. coli. 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 Candelario, appreciate recommendations Imaging: Abdomen/Pelvis CT 10/31/17: Innumerable small sclerotic lesions in the skeleton, most characteristic of sclerotic bony metastatic disease. Pt with history of colon cancer (6) Weakness ICD Codes: R53.1 - Weakness Status: Acute Plan: Differential includes acute infection vs bony metastasis vs deconditioning vs others -See plan above -PT consulted -Continue to monitor labs and vitals Imaging: Head CT 10/31/17: with no acute intracranial findings. Left sphenoid sinusitis. Remote lacunar infarct right frontal white matter. (7) Diabetes mellitus, type II ICD Codes: E11.9 - Type 2 diabetes mellitus Status: Chronic Plan: Will hold home medications -Low dose SSI, per Critical Care protocol -Continue to monitor blood sugar (8) Hypertension ICD Codes: I10 - Essential (primary) hypertension Status: Chronic Plan: Pt currently hypotensive, Hold home blood pressure medications, hypotension managed per CC, weaned off Neosynephrine (9) Hypothyroidism ICD Codes: E03.9 - Hypothyroidism Status: Chronic Plan: Continue home Levothyroxine (10) FEN/PPX Plan: Fluid: Fluid per clinical rn liaison Electrolytes: Continue to monitor. Nutrition: Diabetic diet DVT PPX: Per CC, on heparin gtt at this time Problem Qualifiers (1) Sepsis: Qualified Codes: A41.9 - Sepsis, unspecified organism (2) UTI (urinary tract infection): (3) Diabetes mellitus, type II: Qualified Codes: E11.8 - Type 2 diabetes mellitus with unspecified complications (4) Hypertension: Qualified Codes: I10 - Essential (primary) hypertension (5) Hypothyroidism: Qualified Codes: E03.9 - Hypothyroidism, unspecified Ghada Hunter MD R2 November 02, 2017 08:57
[2017-11-02] MEDS: VENLAFAXINE HCL XR 75 MG CAP PO SCH (09:00)
[2017-11-02] MEDS ORDERED: DIGOXIN 0.5 MG/2 ML VIAL IV PUSH SCH (09:00)
[2017-11-02] MEDS: SODIUM BICARBONATE 8.4% INJ 75 MEQ in SODIUM CHLOR 0.45% 1000 ML INJ 1,000 ML IV SCH (09:31)
[2017-11-02] MEDS: ALBUMIN 25% INJ 50 ML IV SCH ×2 (09:31→21:15)
[2017-11-02] MEDS: CYANOCOBALAMIN 1000 MCG/ML VIAL SQ SCH (09:32)
[2017-11-02] MEDS: PRAVASTATIN SOD 40 MG TAB PO SCH (09:32)
[2017-11-02] MEDS: SODIUM CHLORIDE 0.9% FLUSH 10 ML FLUSH IV FLUSH SCH (09:32)
[2017-11-02] MEDS: FLUoxetine HCL 20 MG CAP PO SCH (09:32)
[2017-11-02] MEDS: DOCUSATE SODIUM 50 MG/SENNA 8.6 MG TAB PO SCH ×2 (09:32→21:16)
[2017-11-02] MEDS ORDERED: MEROPENEM INJ 2,000 MG in SODIUM CHLORIDE 0.9% INJ 100 ML IV SCH (10:00)
[2017-11-02] MEDS ORDERED: ASP: Other exception documentation: ( ) PRN (10:00)
[2017-11-02] MEDS ORDERED: PHARMACY INFORMATION XX PRN (10:00)
--- NOTE | 2017-11-02 10:12 | HHI.CCPN ---
Subjective Remarks/Hospital Course 72-year-old female with a medical history significant for colon cancer, hypertension, hyperlipidemia, atrial fibrillation status post previous ablation , type 2 diabetes mellitus who presented to the ER with generalized weakness and was hypotensive on arrival. She was diagnosed to have a UTI/sepsis. She received 4 L fluids in the ER with systolic blood pressure coming up to the 90s however was tachycardic with heart rate going up to 130s atrial fibrillation. She had a negligible urine output despite 4 L IV fluids and an elevated lactic acid with concern for severe sepsis and acute kidney injury. Patient was admitted by family medicine service and critical care consult was requested by ER physician. I evaluated the patient in the ER. At that time she was on 2 L nasal cannula maintaining O2 sats around 98%. Her systolic blood pressure was in the mid 90 range. She was in atrial fibrillation with heart rate ranging from 110-120s. Patient was awake and alert at the time of my evaluation and was following commands appropriately. She denied any worsening shortness of breath or chest pain at the time. She did have some abdominal discomfort. She appeared slightly tachypneic. She had already received empiric antibiotic coverage. History was obtained by discussion with , ER physician, family medicine residents and review of records. Patient has reportedly not had anything to eat or drink for 30 hours prior to admission. She has been having burning with urination over the past 2 days. Patient had a head CT which was unremarkable, CT abdomen pelvis revealed moderate hydronephrosis, VQ scan was low probability for PE. 11/01: Patient appears critical, tachypneic. Urine output marginal 200 mL overnight shift time. Blood cultures 4 out of 4 bottles positive for gram- negative rods. Currently on 40 mcg/min of Raymond-Synephrine. Remaisn in A fib with RVR. Will start Amiodarone gtt, attempt rate control/cardioverted. Previous echo done last year shows EF 55-60%, moderate mitral stenosis, mild to moderate aortic stenosis, moderate TR, also will hold Xarelto start IV heparin 11/02: Patient remains very critically ill and septic shock now in respiratory failure. Overnight required intubation for tachypnea and respiratory distress. Received a dose of tobramycin Sensitivities are pending for E. coli. White count has dropped to 2.1 creatinine is 2.12 today. Will discontinue Zosyn and start renally dosed meropenem. Remains on amiodarone infusion heart rate slightly better controlled. Raymond-Synephrine just weaned off, but currently patient is hypotensive with maps 61 Objective Vital Signs Date Time Temp Pulse Resp B/P (MAP) Pulse Ox O2 Delivery O2 Flow Rate FiO2 11/02/17 08:06 98 60 11/02/17 07:00 114 111/62 11/02/17 04:00 99.8 22 11/02/17 00:25 Nasal Cannula 4.00 Intake and Output 11/02/17 11/02/17 11/02/17 07:59 15:59 23:59 Intake Total 3894.15 ml Output Total 1050 ml Balance 2844.15 ml Result Diagram: 11/02/17 0340 11/02/17 0340 Other Results Microbiology Date/Time Source Procedure Growth Status 10/31/17 12:08 Blood Peripheral Aerobic Blood Culture - Final Escherichia Coli Complete 10/31/17 12:08 Anaerobic Blood Culture - Final Escherichia Coli Complete 11/01/17 20:00 Stool Stool Stool Occult Blood (NANI) - Final HEMOCCULT NEGATIVE Complete Laboratory Tests Test 11/02/17 04:47 11/02/17 07:54 Blood Gas Puncture Site RT RADIAL RT RADIAL Blood Gas Patient Temperature 98.6 98.6 Blood Gas HCO3 19 mmol/L (22-26) 17 mmol/L (22-26) Blood Gas Base Excess -8.1 mmol/L (-2-2) -7.6 mmol/L (-2-2) Blood Gas Oxygen Saturation 90 % (90-100) 97 % (90-100) Arterial Blood pH 7.18 (7.380-7.420) 7.33 (7.380-7.420) Arterial Blood Partial Pressure CO2 52 mmHg (38-42) 34 mmHg (38-42) Arterial Blood Partial Pressure O2 81 mmHg (61-120) 211 mmHg (61-120) Arterial Blood Oxygen Content 15.8 Vol % (12.0-20.0) 14.1 Vol % (12.0-20.0) Arterial Blood Carboxyhemoglobin 0.6 % (0-4) 0.9 % (0-4) Arterial Blood Methemoglobin 1.5 % (0-2) 1.3 % (0-2) Blood Gas Hemoglobin 12.5 G/DL (12.0-16.0) 10.0 G/DL (12.0-16.0) Oxygen Delivery Device VENTILATOR VENTILATOR Blood Gas Ventilator Setting SEE COMMENTS PRVC/AC 500/22 Blood Gas Inspired Oxygen 100 % 80 % Imaging Last Impressions Head CT 10/31/17 1321 Signed Impressions: Service Date/Time: October 14:02 - CONCLUSION: 1. No acute intracranial findings. Left sphenoid sinusitis. Remote lacunar infarct right frontal white matter. Samuel Lin MD Abdomen/Pelvis CT 10/31/17 1321 Signed Impressions: Service Date/Time: October 13:58 - CONCLUSION: 1. Development of innumerable small sclerotic lesions in the skeleton most characteristic of sclerotic bony metastatic disease. There is a reported history of malignancy. 2. Hepatomegaly with development of mild ascites. 3. Persistent moderate hydronephrosis with perinephric stranding similar to February 2017. Interval development of mild anasarca. 4. Gallbladder sludge. Gallo catheter in bladder. Samuel Lin MD Lung Scan-V Nuclear Medicine 10/31/17 0000 Signed Impressions: Service Date/Time: October 15:00 - CONCLUSION: Low probability scan for pulmonary embolism Jose Wright MD Chest X-Ray 10/31/17 0000 Signed Impressions: Service Date/Time: October 12:24 - CONCLUSION: No acute disease. Heart size appears enlarged. Jose Pablo MD Objective Remarks Gen: 72-year-old critically ill female who is intubated sedated HEENT: No pallor or icterus, orotracheally intubated Neck: No JVD Chest/pulmonary: Air entry equal bilaterally, tachypneic diminished at the bases with fine crackles Cardiovascular: S1-S2 irregularly irregular, tachycardic, no gallop or murmur GI/abdomen: Soft, vague tenderness, bowel sounds present Extremities: Warm bilaterally, trace edema Neuro: Intubated sedated anxious on sedation hold follows commands moves extremities A/P Assessment and Plan 72-year-old female with: ASSESSMENT: Septic shock E Coli bacteremia Acute respiratory failure Atrial fibrillation with RVR UTI Lactic acidosis Moderate hydronephrosis Acute kidney failure Chronic atrial fibrillation Moderate mitral stenosis, mild to moderate aortic stenosis, moderate tricuspid regurgitation Colon cancer with suspected metastatic disease Vitamin B12 deficiency Diabetes Type 2 - on insulin h/o Hypertension Hyperlipidemia Depression Hypothyroidism h/o CVA h/o PE (03/2017) h/o Pyelo/PNA (03/2017 requiring intubation) PLAN: Neuro: -Continue propofol for sedation and vent synchrony -Daily sedation medication as tolerated Cardiovascular: -Status post 4 L crystalloid bolus, -Discontinue bicarb infusion start normal saline at 50 mL/h -s/p Digoxin 0.5 mg IV for A. fib with RVR. Holding amiodarone p.o, started IV amiodarone 11/01. Repeat digoxin 0.25 mg 1 -Raymond-Synephrine GTT to keep map above 65. -Hold Xarelto for anticoagulation, Continue IV heparin -Need rate control due to moderate mitral stenosis and mild to moderate aortic stenosis Pulmonary: -Intubated yesterday night for acute respiratory failure -Vent bundle, DuoNeb every 6 hours and as needed -Start weaning trials in the next 24 hours GI/liver: -Keep n.p.o. Pepcid for GI prophylaxis. Start tube feeds with Jevity Renal/: -Gallo catheterization. Strict intake output, monitor and replete electrolytes , follow BUN/creatinine. -Nephrology consulted -Urology consulted in the setting of moderate hydronephrosis with renal failure , did not recommend stent placement ID: -Patient received IV vancomycin and Zosyn and Rocephin in the ER. -Currently on Zosyn IV for E Coli bacteremia, due to inadequate response change to meropenem renally adjusted -1 dose of tobramycin given overnight -Follow-up on urine culture Heme-onc: -Dr. Sly Candelario consulted for history of colon cancer in suspected metastatic lesions on CT abdomen pelvis. -Need PET scan when stable Endocrine: -SSI for glycemic control. -Vitamin B12 level is low. Start vitamin B12 injections 1000 mcg IM daily for 10 days then monthly Prophylaxis: -Pepcid/SCDs. Hold Xarelto, continue IV heparin Access: -Has peripheral IVs and port. Central line if needed Discussed with family medicine residents, discussed with patient and her at bedside. Patient's condition is very critical with multiorgan dysfunction, worsening respiratory failure, now intubated and renal failure along with severe sepsis Time spent on critical care excluding procedures 40 minutes Jan Garcia MD November 02, 2017 10:12
[2017-11-02] MEDS ORDERED: DIGOXIN 0.5 MG/2 ML VIAL IV PUSH ONE (10:15)
[2017-11-02] MEDS: MAGNESIUM SULFATE 1 GM PREMIX 100 ML IV SCH ×2 (11:08→12:10)
[2017-11-02] MEDS: SODIUM CHLOR 0.9% 1000 ML INJ 1,000 ML IV SCH (11:19)
--- NOTE | 2017-11-02 11:26 | HHI.NPPN ---
Subjective General Problems: Anemia, Edema, Hypotension, Mebatolic Acidosis Renal Failure: Acute History of Present Illness 72-year-old female with past medical history of hypertension, diabetes mellitus, hyperlipidemia, atrial fibrillation, history of colon cancer, history of acute kidney injury in the past. She was admitted with complaint of worsening shortness of breath and recurrent falls. I was called to see the patient because of elevated BUN and creatinine. The patient was seen by me when she was here in February of last year. At that time, she also has acute kidney injury and her creatinine was as high as 1.8, but it was improving and it went down to 0.6-0.7 which is her baseline. Additional Remarks Patient is now intubated, and on pressors, with low BP. Objective Data Data Vital Signs Date Time Temp Pulse Resp B/P (MAP) Pulse Ox O2 Delivery O2 Flow Rate FiO2 11/02/17 08:06 98 60 11/02/17 08:00 107 11/02/17 07:00 98 Mechanical Ventilator 80 11/02/17 07:00 114 111/62 11/02/17 07:00 114 111/62 11/02/17 06:00 117 11/02/17 06:00 80 11/02/17 05:35 130 78/53 11/02/17 05:34 119 78/53 11/02/17 04:55 97 100 11/02/17 04:05 97 100 11/02/17 04:00 100 11/02/17 04:00 142 11/02/17 04:00 99.8 143 22 111/63 (79) 94 11/02/17 02:00 129 11/02/17 00:25 Nasal Cannula 4.00 11/02/17 00:00 106 11/02/17 00:00 98.2 112 33 155/79 (104) 94 11/01/17 22:00 98 11/01/17 20:50 29 11/01/17 20:00 98.4 114 32 138/64 (88) 94 11/01/17 20:00 112 11/01/17 20:00 Nasal Cannula 3.00 11/01/17 19:52 111 128/80 11/01/17 18:30 112 11/01/17 18:00 113 11/01/17 16:00 97.9 113 28 113/75 (88) 98 11/01/17 16:00 113 11/01/17 12:25 111 113/55 11/01/17 12:00 98.7 112 36 113/55 (74) 95 11/01/17 12:00 117 -: 11/02/17 0340 11/02/17 0340 Microbiology 11/02/17 Aerobic Blood Culture, Received Pending 11/02/17 Anaerobic Blood Culture, Received Pending 11/02/17 Aerobic Blood Culture, Received Pending 11/02/17 Anaerobic Blood Culture, Received Pending 11/01/17 Stool Occult Blood (NANI) - Final, Complete HEMOCCULT NEGATIVE Physical Exam General Appearance Remarks Intubated and sedated. Eyes Eye Exam: Pupils Equal Throat Throat Exam: Oral Mucosa [place] & Moist Neck Neck Exam: Neck Supple Pulmonary Resp Exam: Crackles, Rhonchi, Sputum, Decreased Bases, Diminished Breath Sounds , Poor Inspiratory Effort Cardiology CV Exam: Irregular, Arrhythmia Gastrointestinal/Abdomen GI Exam: Soft, Non-Tender, Bowel Sounds Present, Distended Extremeties Extremities Exam: Moderate Edema, Pitting Edema, Dependent Edema Neurologic Neuro Exam: Sedated Assessment/Plan Assessment Summary: ASH/Acute Renal Failure Problem List: (1) Diabetes mellitus, type II ICD Codes: E11.9 - Type 2 diabetes mellitus Status: Chronic (2) PNA (pneumonia) ICD Codes: J18.9 - Pneumonia, unspecified organism Status: Acute (3) Hypothyroidism ICD Codes: E03.9 - Hypothyroidism Status: Chronic (4) Atrial fibrillation ICD Codes: I48.91 - Unspecified atrial fibrillation Status: Chronic (5) Acute kidney failure ICD Codes: N17.9 - Acute kidney failure, unspecified (6) UTI (urinary tract infection) ICD Codes: N39.0 - Urinary tract infection, site not specified (7) Sepsis due to Gram-negative organism with septic shock ICD Codes: A41.50 - Gram-negative sepsis, unspecified; R65.21 - Severe sepsis with septic shock Status: Resolved Plan Patient has Acute kidney injury. Her baseline Creatinine is normal. She has E.Coli UTI and sepsis. Most likely has ATN causing ASH. Seen by urology. Now BP dropped, on the pressors. Intubated. Creatinine is slightly better , but now urine out put decreased. Continue antibiotics and IVF. Follow the urine out put and BMP. D/W Patient's at bed side. Problem Qualifiers (1) UTI (urinary tract infection): Aixa Figueroa MD November 02, 2017 11:26
[2017-11-02] MEDS: AMIODARONE INJ 450 MG in SODIUM CHLOR 0.9% (EXCEL) INJ 250 ML IV PRN (12:32)
[2017-11-02] MEDS: HEPARIN-D5W 25,000 U/250 ML 250 ML IV PRN (14:48)
[2017-11-02] MEDS: MEROPENEM INJ 2,000 MG in SODIUM CHLORIDE 0.9% INJ 100 ML IV SCH (21:17)
[2017-11-03] VITALS (48 sets, daily range): BP systolic 78–199; BP diastolic 50–95; PULSE 58–96; RESP 9–23; TEMP 97.6–99.8; O2SAT 94–99
[2017-11-03] MEDS: fentaNYL DRIP 250 ML IV PRN (02:32)
--- NOTE | 2017-11-03 04:25 | RADRPT ---
EXAM DATE/TIME: 11/03/2017 04:01 [place] COMPARISON: CHEST SINGLE AP, November 02, 2017, 5:35. INDICATIONS : Shortness of breath, urosepsis. MEDICAL HISTORY : Hypertension. Carcinoma, colon. A-Fib Diabetes SURGICAL HISTORY : Colon resection. ENCOUNTER: Subsequent ACUITY: 4 - 6 days PAIN SCORE: Non-responsive. LOCATION: Bilateral chest FINDINGS: A single AP semierect view of the chest was obtained and again demonstrates an endotracheal tube with tip approximately 5 cm above the angelica. Nasogastric tube and right-sided implantable port catheter remain in place. Hazy airspace disease remains in the perihilar regions and both lung bases. The left costophrenic angle remains blunted. The heart size is mildly prominent. CONCLUSION: No significant change. Robe Menchaca MD on November 03, 2017 at 4:23 Board Certified Radiologist. This report was verified electronically.
[2017-11-03 05:00] LABS: AUTOMATED NEUTROPHIL # 17.5 TH/MM3 (1.8-7.7); BASOPHIL % 0.1 % (0.0-2.0); EOSINOPHIL # 0.1 TH/MM3 (0-0.4); EOSINOPHIL % 0.4 % (0.0-4.0); HEMATOCRIT 32.4 % (35.0-46.0); HEMOGLOBIN 10.4 GM/DL (11.6-15.3); LYMPH % 5.5 % (9.0-44.0); LYMPHOCYTE # 1.1 TH/MM3 (1.0-4.8); MEAN CELL VOLUME 80.2 FL (80.0-100.0); MEAN CORPUSCULAR HEMOGLOBIN 25.9 PG (27.0-34.0); MEAN CORPUSCULAR HGB CONC 32.2 % (32.0-36.0); MEAN PLATELET VOLUME 10.5 FL (7.0-11.0); MONO % 7.7 % (0.0-8.0); MONOCYTE # 1.6 TH/MM3 (0-0.9); NEUT % 86.3 % (16.0-70.0); PLATELET COUNT 164 TH/MM3 (150-450); RED BLOOD COUNT 4.04 MIL/MM3 (4.00-5.30); WHITE BLOOD COUNT 20.3 TH/MM3 (4.0-11.0)
[2017-11-03 05:27] LABS: ALBUMIN 2.3 GM/DL (3.4-5.0); BICARBONATE 19.7 MEQ/L (21.0-32.0); CALCIUM 6.8 MG/DL (8.5-10.1); CREATININE 3.36 MG/DL (0.50-1.00); MAGNESIUM 2.7 MG/DL (1.5-2.5); TOTAL BILIRUBIN ADULT 1.7 MG/DL (0.2-1.0); TOTAL PROTEIN 6.8 GM/DL (6.4-8.2)
[2017-11-03] MEDS ORDERED: PHARMACY ORDERED LAB ONE (06:00)
[2017-11-03] MEDS: LEVOTHYROXINE SODIUM 50 MCG TAB PO SCH (06:00)
[2017-11-03] MEDS: HYDROCORTISONE SOD SUCCINATE 100 MG VIAL IV PUSH SCH ×3 (06:00→21:20)
[2017-11-03] MEDS: SODIUM CHLOR 0.9% 1000 ML INJ 1,000 ML IV SCH (06:02)
--- NOTE | 2017-11-03 07:53 | HHI.FPPN ---
Subjective Remarks Patient was seen and examined this morning No acute overnight events per nurse She remains on ventilator with fentanyl, heparin, aspirin, and amiodarone drips. Meropenem was initiated yesterday Urine output reportedly 200 cc over the last shift is at bedside and has no new questions or concerns Chest x-ray showing no significant changes this morning Objective Vitals Vital Signs Date Time Temp Pulse Resp B/P (MAP) Pulse Ox O2 Delivery O2 Flow Rate FiO2 11/03/17 06:00 96 11/03/17 06:00 40 11/03/17 04:00 97.6 60 11/03/17 04:00 40 11/03/17 04:00 96 11/03/17 04:00 97.6 60 20 109/53 (71) 96 11/03/17 04:00 97.6 60 18 109/ 96 11/03/17 04:00 96 40 11/03/17 02:00 92 11/03/17 00:00 98.6 63 18 101/69 (80) 96 11/03/17 00:00 92 11/03/17 00:00 40 11/02/17 23:25 97 40 11/02/17 22:00 97 11/02/17 20:00 99.5 72 18 87/56 (66) 96 11/02/17 20:00 96 Mechanical Ventilator 40 11/02/17 20:00 97 11/02/17 20:00 40 11/02/17 19:27 100 40 11/02/17 18:00 75 11/02/17 16:00 99.7 79 18 88/58 (68) 100 11/02/17 16:00 50 11/02/17 16:00 79 11/02/17 14:14 100 50 11/02/17 14:00 82 11/02/17 12:32 86 93/57 11/02/17 12:31 86 93/57 11/02/17 12:00 99.1 86 22 89/54 (66) 100 11/02/17 12:00 86 11/02/17 12:00 50 11/02/17 11:47 100 50 11/02/17 10:00 93 11/02/17 09:50 96 102/63 11/02/17 08:06 98 60 11/02/17 08:00 99.8 107 22 93/54 (67) 98 11/02/17 08:00 107 11/02/17 08:00 60 I/O 11/02/17 11/02/17 11/02/17 11/03/17 11/03/17 11/03/17 07:00 15:00 23:00 07:00 15:00 23:00 Intake Total 3894.15 ml 934 ml 2788 ml Output Total 1050 ml 400 ml 500 ml Balance 2844.15 ml 934 ml -400 ml 2288 ml Intake Oral 240 ml IV Total 3654.15 ml 934 ml 2788 ml Output Urine Total 750 ml 100 ml 200 ml Gastric Drainage Total 300 ml 300 ml 300 ml # Bowel Movements 1 0 Result Diagram: 11/03/17 0400 11/03/17 0400 Imaging Last 72 hours Impressions Chest X-Ray 11/03/17 0600 Signed Impressions: Service Date/Time: Friday, November 03, 2017 04:01 - CONCLUSION: No significant change. Robe Menchaca MD Chest X-Ray 11/02/17 0000 Signed Impressions: Service Date/Time: Thursday, November 02, 2017 05:35 - CONCLUSION: 1. Interval intubation and placement of nasogastric tube. 2. Hazy opacities present both lung bases. Robe Menchaca MD Chest X-Ray 11/01/17 0600 Signed Impressions: Service Date/Time: Wednesday, November 01, 2017 03:52 - CONCLUSION: Bibasilar densities. Prominence of the right hilum. Jai Queen MD Chest X-Ray 11/01/17 0000 Signed Impressions: Service Date/Time: Wednesday, November 01, 2017 08:58 - CONCLUSION: Slight improvement in the aeration Jose Wright MD Head CT 10/31/17 1321 Signed Impressions: Service Date/Time: October 14:02 - CONCLUSION: 1. No acute intracranial findings. Left sphenoid sinusitis. Remote lacunar infarct right frontal white matter. Samuel Lin MD Abdomen/Pelvis CT 10/31/17 1321 Signed Impressions: Service Date/Time: October 13:58 - CONCLUSION: 1. Development of innumerable small sclerotic lesions in the skeleton most characteristic of sclerotic bony metastatic disease. There is a reported history of malignancy. 2. Hepatomegaly with development of mild ascites. 3. Persistent moderate hydronephrosis with perinephric stranding similar to February 2017. Interval development of mild anasarca. 4. Gallbladder sludge. Gallo catheter in bladder. Samuel Lin MD Objective Remarks GENERAL: This is a well-nourished, well-developed patient, on ventilator and sedation. SKIN: No rashes, ecchymoses or lesions. Cool and dry. EYES: Pupils equal round and reactive. ENT: Nose without bleeding, purulent drainage. Airway patent. No Sinus tenderness. MMM. NECK: Trachea midline. CARDIOVASCULAR: Tachycardia, upper airway sounds preclude auscultation of heart sounds RESPIRATORY: Ventilator PRVC A/C PEEP 5, FiO2 40 GASTROINTESTINAL: Abdomen soft, distended. Normal bowel sounds. OG tube in place MUSCULOSKELETAL: Extremities without clubbing, cyanosis, or edema. NEUROLOGICAL: Sedated, some hand movements but not appearing to be in distress. Medications and IVs Inpatient Medications Acetaminophen 100 ml @ 400 mls/hr ONCE ONCE IV Last administered on at 19:42; Start 10/31/17 at 19:45; Stop 10/31/17 at 19:59; Status DC Acetaminophen (Tylenol) 650 mg Q4H PRN PO TEMP > 100.4 Last administered on 05/11at 19:50; Start 10/31/17 at 15:30 Acetaminophen/ Hydrocodone Bitart ([place] 5-325 Mg) 1 tab Q4H PRN PO PAIN GREATER THAN 5 Last administered on 11/01/17at 20:59; Start 11/01/17 at 13:15 Albumin Human 50 ml @ 60 mls/hr Q12H IV Last administered on 11/02/17at 21:15; Start 11/01/17 at 09:00 Amiodarone HCl (Cordarone) 200 mg DAILY PO Last administered on 11/01/17at 08:14 ; Start 11/01/17 at 09:00; Status Future Hold Amiodarone HCl 450 mg/Dextrose 250 ml @ 33.33 mls/ hr Q7H31M PRN IV Per Protocol; Start 11/01/17 at 09:01; Stop 11/01/17 at 09:09; Status DC Amiodarone HCl 450 mg/Sodium Chloride 259 ml @ 33.33 mls/ hr Q7H47M PRN IV Per Protocol Last administered on 11/02/17at 12:32; Start 11/01/17 at 11:00 Aspirin (Ecotrin Ec) 162 mg DAILY PO ; Start 11/01/17 at 09:00; Stop 11/01/17 at 09:00; Status DC Bisacodyl (Dulcolax Supp) 10 mg DAILY PRN RECTAL SEVERE CONSITIPATION; Start at 15:30 Calcium Chloride 1 gm/Sodium Chloride 110 ml @ 110 mls/hr ONCE ONCE IV Last administered on 11/01/17at 00:55; Start 11/01/17 at 00:45; Stop 11/01/17 at 01:44 ; Status DC Calcium Gluconate 1 gm/Dextrose 110 ml @ 110 mls/hr ONCE ONCE IV Last administered on 11/02/17at 05:35; Start 11/02/17 at 04:45; Stop 11/02/17 at 05:44 ; Status DC Ceftriaxone Sodium 1000 mg/ Sodium Chloride 100 ml @ 200 mls/hr Q24H IV Last administered on 10/31/17at 17:35; Start 10/31/17 at 16:00; Stop 10/31/17 at 20:16 ; Status DC Chlorhexidine Gluconate (Chlorhexidine 2% Cloth) 3 pack UNSCH PRN TOPICAL HYGIENIC CARE; Start 10/31/17 at 23:15; Stop 11/05/17 at 23:12 Chlorhexidine Gluconate (Peridex 0.12% Liq) 15 ml BID@08,20 MT Last administered on 11/02/17at 08:00; Start 11/02/17 at 08:00 Clonidine (Catapres) 0.1 mg Q6H PRN PO SBP> OR = 180, DBP> OR = 100; Start 04/10 at 15:30 Cyanocobalamin (Vitamin B12 Inj) 1,000 mcg DAILY SQ Last administered on at 09:32; Start 11/01/17 at 11:00; Stop 11/11/17 at 10:59 Dextrose (D50w (Vial) Inj) 50 ml UNSCH PRN IV PUSH HYPOGLYCEMIA-SEE COMMENTS; Start 10/31/17 at 15:30 Digoxin (Lanoxin Inj) 0.25 mg ONCE ONCE IV PUSH Last administered on at 11:09; Start 11/02/17 at 10:15; Stop 11/02/17 at 10:23; Status DC Diltiazem HCl (Cardizem Cd) 240 mg DAILY PO ; Start 11/01/17 at 09:00; Stop 05/11 at 09:00; Status DC Etomidate (Amidate Inj) 20 mg ONCE ONCE IV PUSH Last administered on at 03:45; Start 11/02/17 at 03:45; Stop 11/02/17 at 03:50; Status DC Fentanyl Citrate 250 ml @ 5 mls/hr TITRATE PRN IV SEDATION Last administered on 11/03/17at 02:32; Start 11/02/17 at 04:15 Fluoxetine HCl (PROzac) 20 mg DAILY PO Last administered on 11/02/17at 09:32; Start 11/01/17 at 09:00 Glucagon (Glucagon Inj) 1 mg UNSCH PRN OTHER HYPOGLYCEMIA-SEE COMMENTS; Start 10/31/17 at 15:30 Haloperidol Lactate (Haldol Inj) 5 mg ONCE ONCE IV Last administered on at 03:29; Start 11/02/17 at 03:30; Stop 11/02/17 at 03:31; Status DC Heparin Sodium/ Dextrose 250 ml @ 10 mls/hr TITRATE PRN IV Coagulation Management Last administered on 11/02/17at 14:48; Start 11/01/17 at 09:00 Hydrocortisone Sodium Succinate (SoluCORTEF INJ) 100 mg Q8HR IV PUSH Last administered on 11/03/17at 06:00; Start 11/02/17 at 05:30 Insulin Aspart (NovoLOG SUPPLEMENTAL SCALE) 1 ACHS SLIDING SCALE SQ Last administered on 11/02/17at 21:00; Start 10/31/17 at 17:00 Lactulose (Lactulose Liq) 30 ml DAILY PRN PO SEVERE CONSITIPATION; Start at 15:30 Levothyroxine Sodium (Synthroid) 50 mcg DAILY@0600 PO Last administered on 11/03at 06:00; Start 11/01/17 at 06:00 Magnesium Hydroxide (Milk Of Magnesia Liq) 30 ml Q12H PRN PO Mild constipation ; Start 10/31/17 at 15:30 Magnesium Sulfate/ Dextrose 100 ml @ 100 mls/hr Q1H IV Last administered on 06/10at 12:10; Start 11/02/17 at 10:15; Stop 11/02/17 at 12:14; Status DC Meropenem 2000 mg/ Sodium Chloride 100 ml @ 200 mls/hr Q12H IV Last administered on 11/02/17at 21:17; Start 11/02/17 at 22:00 Midazolam HCl (Versed Inj) 2 mg Q15M PRN IV PUSH SEDATION; Start 11/02/17 at 04 :15 Miscellaneous Information ([facility] Nursing Information) Patient in critical care unit? Ass... [id number] .XX Last administered on 10/31/17at 23:15; Start 10/31/17 at 23:15 Miscellaneous Information ([facility] Ordered Lab Info) SPECIFIC LAB TO BE DRAWN:TOBRAMY... ONCE ONCE .XX ; Start 11/03/17 at 06:00; Stop 11/03/17 at 06: 01; Status DC Miscellaneous Medication (ASP Crit: Other exception documentation) 1 UNSCH X1 PRN .XX PHARMACY DOCUMENTATION; Start 11/02/17 at 10:00; Stop 11/03/17 at 09:59 Miscellaneous Medication ([facility] Pharm[facility] Information) 1 UNSCH X1 PRN XX PHARMACY DOCUMENTATION; Start 11/02/17 at 10:00; Stop 11/03/17 at 09:59 Naloxone HCl (Narcan Inj) 0.4 mg UNSCH PRN IV PUSH SEE LABEL COMMENTS; Start at 15:30 Ondansetron HCl (Zofran Odt) 4 mg Q6H PRN PO NAUSEA OR VOMITING; Start at 15:30 Oxybutynin Chloride (Ditropan) 5 mg Q8HR PO Last administered on 11/01/17at 04: 56; Start 10/31/17 at 22:00; Stop 11/01/17 at 08:52; Status DC Pharmacy Profile Note 0 ml @ 0 mls/hr UNSCH OTHER ; Start 11/02/17 at 05:15; Stop 11/02/17 at 10:54; Status DC Phenazopyridine HCl (Pyridium) 100 mg Q8H PRN PO DYSURIA; Start 11/01/17 at 13: 45 Phenylephrine HCl 40 mg/Dextrose 500 ml @ 30 mls/hr TITRATE PRN IV Blood Pressure Management Last administered on 11/02/17 05:34; Start 10/31/17 at 23: 30 Piperacillin Sod/ Tazobactam Sod 50 ml @ 100 mls/hr Q6H IV Last administered on 11/02/17 09:31; Start 11/01/17 at 15:00; Stop 11/02/17 at 10:05; Status DC Pravastatin Sodium (Pravachol) 40 mg DAILY PO Last administered on 11/02/17 09 :32; Start 11/01/17 at 09:00 Propofol 100 ml @ 0 mls/hr TITRATE PRN IV SEDATION Last administered on 04:24; Start 11/02/17 at 04:00 Rivaroxaban (Xarelto) 20 mg DAILY PO ; Start 11/01/17 at 09:00; Status Future Hold Rocuronium [place] (Zemuron Inj) 50 mg BOLUS ONCE IV Last administered on 11/02at 03:59; Start 11/02/17 at 03:45; Stop 11/02/17 at 03:50; Status DC Senna/Docusate Sodium ([place]-Colace) 1 tab BID PO Last administered on 21:16; Start 10/31/17 at 21:00 Sennosides (Senokot) 17.2 mg Q12H PRN PO Moderate constipation; Start 10/31/17 at 15:30 Sodium Bicarbonate 75 meq/Sodium Chloride 1,075 ml @ 50 mls/hr [id number] IV Last administered on 11/02/17 09:31; Start 11/01/17 at 10:00; Stop 11/02/17 at 10:07; Status DC Sodium Bicarbonate (Sodium Bicarbonate 8.4% Inj) 50 meq ONCE ONCE IV PUSH Last administered on 11/01/17 09:30; Start 11/01/17 at 09:30; Stop 11/01/17 at 09:31; Status DC Sodium Chloride 1,000 ml @ 50 mls/hr Q20H IV Last administered on 11/03/17 06 :02; Start 11/02/17 at 10:15 Sodium Chloride (NS Flush) 2 ml BID IV FLUSH Last administered on 11/02/17at 09: 32; Start 10/31/17 at 21:00 Temazepam (Restoril) 15 mg HS PRN PO INSOMNIA Last administered on 11/01/17at 22 :43; Start 11/01/17 at 22:00 Terbutaline Sulfate (Brethine Inj) 1 mg UNSCH PRN SQ FOR EXTRAVASATION PROTOCOL ; Start 10/31/17 at 23:30 Tobramycin Sulfate 350 mg/ Sodium Chloride 108.75 ml @ 100 mls/ hr ONCE ONCE IV Last administered on 11/02/17at 05:35; Start 11/02/17 at 05:15; Stop at 06:20; Status DC Vancomycin HCl 1000 mg/Sodium Chloride 250 ml @ 250 mls/hr ONCE STAT IV Last administered on 10/31/17at 14:24; Start 10/31/17 at 13:18; Stop 10/31/17 at 14:17 ; Status DC Vasopressin 40 units/Dextrose 100 ml @ 6 mls/hr [id number] IV Last administered on 11/02/17at 05:35; Start 11/02/17 at 05:23 Venlafaxine HCl (Effexor Xr) 75 mg DAILY PO Last administered on 11/01/17at 10: 12; Start 11/01/17 at 09:00 Urinary Catheter: No Vascular Central Line Catheter: No A/P Assessment and Plan Patient is a 72-year-old admitted due to UTI, meets sepsis criteria, also with sclerotic bony lesions concerning for colon cancer metastasis. Has had worsening respiratory function and now on ventilator since 11/02 Discharge Planning Prognosis unclear at this time Patient remains on ventilator Critical Care managing at this time, appreciate care of patient Notably asserts patient is full code Problem List: (1) Respiratory failure, acute ICD Codes: J96.00 - Acute respiratory failure, unspecified whether with hypoxia or hypercapnia Status: Acute Plan: Remains on ventilator, sedated Now on phenylephrine for blood pressure support Continue respiratory support with goal to wean once stable, continue respiratory toilet Chest x-ray stable Hydrocortisone 100 mg every 8 IV push (2) Sepsis ICD Codes: A41.9 - Sepsis, unspecified organism Status: Acute Plan: Septic shock notable at this time, on phenylephrine with MAP 80s Meropenem initiated on 11/02, per CC At time of admission pt met sepsis criteria with WBC count of 15.8, HR 109. WBC count 2.1 on 11/02, 20.2 on 11/03 Worsening renal function today -Lactic acid 3.0-->3.2-->2.9-->3.0 will continue to monitor -See UTI below -Pt with increased WBC count, stable lactic acid. -Blood cultures with gram negative rods. -Zosyn 2.5g Q6hrs (10/31-11/02) -Tobramycin IV x 1 11/02 -Renally dose Meropenem 11/02 - current Urine culture showing pansensitive E. coli (3) UTI (urinary tract infection) ICD Codes: N39.0 - Urinary tract infection, site not specified Plan: UA with large leukocyte esterase, innumerable WBCs, many WBC clumps Management as above for sepsis (4) Atrial fibrillation ICD Codes: I48.91 - Unspecified atrial fibrillation Status: Chronic Plan: Patient is currently on amiodarone drip for rate control she has required a dose of digoxin in the last 24 hours as well. 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 Candelario, appreciate recommendations Patient will need PET scan once stable Imaging: Abdomen/Pelvis CT 10/31/17: Innumerable small sclerotic lesions in the skeleton, most characteristic of sclerotic bony metastatic disease. Pt with history of colon cancer (7) Weakness ICD Codes: R53.1 - Weakness Plan: Differential includes acute infection vs bony metastasis vs deconditioning vs others Currently critically ill which precludes further workup -See plan above -PT consulted -Continue to monitor labs and vitals Imaging: Head CT 10/31/17: with no acute intracranial findings. Left sphenoid sinusitis. Remote lacunar infarct right frontal white matter. (8) Diabetes mellitus, type II ICD Codes: E11.9 - Type 2 diabetes mellitus Status: Chronic Plan: Will hold home medications -Low dose SSI, per Critical Care protocol -Continue to monitor blood sugar (9) Hypertension ICD Codes: I10 - Essential (primary) hypertension Status: Chronic Plan: Pt currently hypotensive, Hold home blood pressure medications, hypotension managed per CC Currently on pressors (10) Hypothyroidism ICD Codes: E03.9 - Hypothyroidism Status: Chronic Plan: Continue home Levothyroxine (11) FEN/PPX Plan: Fluid: Fluid per cable puller Electrolytes: Continue to monitor. Nutrition: Diabetic diet DVT PPX: Per CC, on heparin gtt at this time Problem Qualifiers (1) Sepsis: Qualified Codes: A41.9 - Sepsis, unspecified organism (2) UTI (urinary tract infection): Ghada Hunter MD R2 November 03, 2017 07:53
[2017-11-03] MEDS: INSULIN ASPART SUPPLEMENTAL SCALE SQ SCH ×4 (08:00→21:00)
[2017-11-03] MEDS: CHLORHEXIDINE 0.12% (ORAL KIT) 15 ML CUP MT SCH (08:00)
[2017-11-03] MEDS: PRAVASTATIN SOD 40 MG TAB PO SCH (08:11)
[2017-11-03] MEDS: DOCUSATE SODIUM 50 MG/SENNA 8.6 MG TAB PO SCH ×2 (08:11→21:21)
[2017-11-03] MEDS: VENLAFAXINE HCL XR 75 MG CAP PO SCH (08:12)
[2017-11-03] MEDS: FLUoxetine HCL 20 MG CAP PO SCH (08:12)
[2017-11-03] MEDS: ALBUMIN 25% INJ 50 ML IV SCH ×2 (08:12→21:20)
[2017-11-03] MEDS: CYANOCOBALAMIN 1000 MCG/ML VIAL SQ SCH (08:12)
[2017-11-03] MEDS: SODIUM CHLORIDE 0.9% FLUSH 10 ML FLUSH IV FLUSH SCH (08:13)
[2017-11-03] MEDS: MEROPENEM INJ 2,000 MG in SODIUM CHLORIDE 0.9% INJ 100 ML IV SCH (09:52)
[2017-11-03 10:36] LABS: BANDS 22 % (0-6); LYMPHOCYTES 6 % (9-44); METAMYELOCYTES 1 % (0-1); MONOCYTES 9 % (0-8); NEUTROPHIL # MANUAL DIFF 17.3 TH/MM3 (1.8-7.7); POLYS (SEG NEUTROPHILS) 62 % (16-70)
[2017-11-03 10:37] LABS: OVALOCYTES 1+ (NORMAL); TOXIC VACUOLATION PRESENT (NONE SEEN)
[2017-11-03] MEDS ORDERED: CALCIUM GLUCONATE INJ 1 GM in SODIUM CHLORIDE 0.9% INJ 100 ML IV ONE (11:00)
--- NOTE | 2017-11-03 11:02 | HHI.NPPN ---
Subjective General Problems: Anemia, Edema, Hypotension, Mebatolic Acidosis Renal Failure: Acute History of Present Illness 72-year-old female with past medical history of hypertension, diabetes mellitus, hyperlipidemia, atrial fibrillation, history of colon cancer, history of acute kidney injury in the past. She was admitted with complaint of worsening shortness of breath and recurrent falls. I was called to see the patient because of elevated BUN and creatinine. The patient was seen by me when she was here in February of last year. At that time, she also has acute kidney injury and her creatinine was as high as 1.8, but it was improving and it went down to 0.6-0.7 which is her baseline. Additional Remarks Patient remain intubated, and on pressors, urine out put decreased. Objective Data Data 11/03/17 11/04/17 19:00 07:00 Intake Total 50 ml Balance 50 ml IV Total 50 ml Vital Signs Date Time Temp Pulse Resp B/P (MAP) Pulse Ox O2 Delivery O2 Flow Rate FiO2 11/03/17 10:00 94 11/03/17 09:32 93 17 199/95 (129) 95 11/03/17 09:30 91 13 192/93 (126) 94 11/03/17 09:30 91 192/93 11/03/17 09:20 40 11/03/17 09:15 67 18 98/58 (71) 95 11/03/17 09:00 58 17 95/57 (70) 94 11/03/17 08:45 62 107/58 11/03/17 08:45 62 18 107/58 (74) 95 11/03/17 08:30 67 22 114/59 (77) 97 11/03/17 08:30 67 114/59 11/03/17 08:15 84 15 144/76 (98) 97 11/03/17 08:00 40 11/03/17 08:00 99.6 75 18 101/67 (78) 95 11/03/17 08:00 75 11/03/17 07:58 95 40 11/03/17 07:45 77 23 105/62 (76) 95 11/03/17 07:30 61 20 100/61 (74) 95 11/03/17 07:15 59 17 100/63 (75) 95 11/03/17 07:00 96 Mechanical Ventilator 40 11/03/17 07:00 77 15 102/64 (77) 96 11/03/17 07:00 77 102/64 11/03/17 07:00 77 102/64 11/03/17 06:00 96 11/03/17 06:00 40 11/03/17 04:00 97.6 60 11/03/17 04:00 40 11/03/17 04:00 96 11/03/17 04:00 97.6 60 20 109/53 (71) 96 11/03/17 04:00 97.6 60 18 109/ 96 11/03/17 04:00 96 40 11/03/17 02:00 92 11/03/17 00:00 98.6 63 18 101/69 (80) 96 11/03/17 00:00 92 11/03/17 00:00 40 11/02/17 23:25 97 40 11/02/17 22:00 97 11/02/17 20:00 99.5 72 18 87/56 (66) 96 11/02/17 20:00 96 Mechanical Ventilator 40 11/02/17 20:00 97 11/02/17 20:00 40 11/02/17 19:27 100 40 11/02/17 18:00 75 11/02/17 16:00 99.7 79 18 88/58 (68) 100 11/02/17 16:00 50 11/02/17 16:00 79 11/02/17 14:14 100 50 11/02/17 14:00 82 11/02/17 12:32 86 93/57 11/02/17 12:31 86 93/57 11/02/17 12:00 99.1 86 22 89/54 (66) 100 11/02/17 12:00 86 11/02/17 12:00 50 11/02/17 11:47 100 50 -: 11/03/17 0400 11/03/17 0400 Physical Exam General Appearance Remarks Intubated and sedated. Eyes Eye Exam: Pupils Equal Throat Throat Exam: Oral Mucosa Diamond & Moist Neck Neck Exam: Neck Supple Pulmonary Resp Exam: Crackles, Rhonchi, Sputum, Decreased Bases, Diminished Breath Sounds , Poor Inspiratory Effort Cardiology CV Exam: Irregular, Arrhythmia Gastrointestinal/Abdomen GI Exam: Soft, Non-Tender, Bowel Sounds Present, Distended Extremeties Extremities Exam: Moderate Edema, Pitting Edema, Dependent Edema Neurologic Neuro Exam: Sedated Assessment/Plan Assessment Summary: ASH/Acute Renal Failure Problem List: (1) Diabetes mellitus, type II ICD Codes: E11.9 - Type 2 diabetes mellitus Status: Chronic (2) PNA (pneumonia) ICD Codes: J18.9 - Pneumonia, unspecified organism Status: Acute (3) Hypothyroidism ICD Codes: E03.9 - Hypothyroidism Status: Chronic (4) Atrial fibrillation ICD Codes: I48.91 - Unspecified atrial fibrillation Status: Chronic (5) Acute kidney failure ICD Codes: N17.9 - Acute kidney failure, unspecified (6) UTI (urinary tract infection) ICD Codes: N39.0 - Urinary tract infection, site not specified (7) Sepsis due to Gram-negative organism with septic shock ICD Codes: A41.50 - Gram-negative sepsis, unspecified; R65.21 - Severe sepsis with septic shock Status: Resolved Plan Patient has Acute kidney injury. Her baseline Creatinine is normal. She has E.Coli UTI and sepsis. Most likely has ATN causing ASH. Seen by urology. Now BP dropped, on the pressors. Intubated. Creatinine continue to increase. but now urine out put decreased. Continue antibiotics and IVF. Follow the urine out put and BMP. Calcium is low, will replace. Problem Qualifiers (1) UTI (urinary tract infection): Aixa Figueroa MD November 03, 2017 11:02
[2017-11-03] MEDS ORDERED: SODIUM CHLORID 0.9% 500 ML INJ 500 ML IV ONE (12:30)
--- NOTE | 2017-11-03 12:42 | HHI.CCPN ---
Subjective Remarks/Hospital Course 72-year-old female with a medical history significant for colon cancer, hypertension, hyperlipidemia, atrial fibrillation status post previous ablation , type 2 diabetes mellitus who presented to the ER with generalized weakness and was hypotensive on arrival. She was diagnosed to have a UTI/sepsis. She received 4 L fluids in the ER with systolic blood pressure coming up to the 90s however was tachycardic with heart rate going up to 130s atrial fibrillation. She had a negligible urine output despite 4 L IV fluids and an elevated lactic acid with concern for severe sepsis and acute kidney injury. Patient was admitted by family medicine service and critical care consult was requested by ER physician. I evaluated the patient in the ER. At that time she was on 2 L nasal cannula maintaining O2 sats around 98%. Her systolic blood pressure was in the mid 90 range. She was in atrial fibrillation with heart rate ranging from 110-120s. Patient was awake and alert at the time of my evaluation and was following commands appropriately. She denied any worsening shortness of breath or chest pain at the time. She did have some abdominal discomfort. She appeared slightly tachypneic. She had already received empiric antibiotic coverage. History was obtained by discussion with , ER physician, family medicine residents and review of records. Patient has reportedly not had anything to eat or drink for 30 hours prior to admission. She has been having burning with urination over the past 2 days. Patient had a head CT which was unremarkable, CT abdomen pelvis revealed moderate hydronephrosis, VQ scan was low probability for PE. 11/01: Patient appears critical, tachypneic. Urine output marginal 200 mL overnight shift time. Blood cultures 4 out of 4 bottles positive for gram- negative rods. Currently on 40 mcg/min of Raymond-Synephrine. Remaisn in A fib with RVR. Will start Amiodarone gtt, attempt rate control/cardioverted. Previous echo done last year shows EF 55-60%, moderate mitral stenosis, mild to moderate aortic stenosis, moderate TR, also will hold Xarelto start IV heparin 11/02: Patient remains very critically ill and septic shock now in respiratory failure. Overnight required intubation for tachypnea and respiratory distress. Received a dose of tobramycin Sensitivities are pending for E. coli. White count has dropped to 2.1 creatinine is 2.12 today. Will discontinue Zosyn and start renally dosed meropenem. Remains on amiodarone infusion heart rate slightly better controlled. Raymond-Synephrine just weaned off, but currently patient is hypotensive with maps 61 11/03: Remains very critical. Failed CPAP trials. Off pressors but urine output is decreasing creatinine has increased BUN 59/creatinine 3.36. WBC count elevated to 20.3 with a 22% bands. E. coli is pansensitive DC meropenem and start Rocephin Objective Vital Signs Date Time Temp Pulse Resp B/P (MAP) Pulse Ox O2 Delivery O2 Flow Rate FiO2 11/03/17 11:23 98 40 11/03/17 10:00 94 11/03/17 09:32 17 199/95 (129) 11/03/17 08:00 99.6 11/03/17 07:00 Mechanical Ventilator 11/02/17 00:25 4.00 Intake and Output 11/03/17 11/03/17 11/04/17 08:00 16:00 00:00 Intake Total 2888 ml 150 ml Output Total 500 ml Balance 2388 ml 150 ml Result Diagram: 11/03/17 0400 11/03/17 0400 Other Results Microbiology Date/Time Source Procedure Growth Status 11/01/17 20:00 Stool Stool Stool Occult Blood (NANI) - Final HEMOCCULT NEGATIVE Complete 10/31/17 13:30 Urine Clean Catch Urine Culture - Final Escherichia Coli Complete Imaging Last Impressions Head CT 10/31/171 Signed Impressions: Service Date/Time: October 14:02 - CONCLUSION: 1. No acute intracranial findings. Left sphenoid sinusitis. Remote lacunar infarct right frontal white matter. Samuel Lin MD Abdomen/Pelvis CT 10/31/17 1321 Signed Impressions: Service Date/Time: October 13:58 - CONCLUSION: 1. Development of innumerable small sclerotic lesions in the skeleton most characteristic of sclerotic bony metastatic disease. There is a reported history of malignancy. 2. Hepatomegaly with development of mild ascites. 3. Persistent moderate hydronephrosis with perinephric stranding similar to February 2017. Interval development of mild anasarca. 4. Gallbladder sludge. Gallo catheter in bladder. Samuel Lin MD Lung Scan- Nuclear Medicine 10/31/17 0000 Signed Impressions: Service Date/Time: October 15:00 - CONCLUSION: Low probability scan for pulmonary embolism Jose Wright MD Chest X-Ray 10/31/17 0000 Signed Impressions: Service Date/Time: October 12:24 - CONCLUSION: No acute disease. Heart size appears enlarged. Jose Pablo MD Objective Remarks Gen: 72-year-old critically ill female who is intubated sedated HEENT: No pallor or icterus, orotracheally intubated Neck: No JVD Chest/pulmonary: Air entry equal bilaterally, tachypneic diminished at the bases with fine crackles Cardiovascular: Converted to sinus rhythm now, no gallop or murmur. Remains on amiodarone GI/abdomen: Soft, vague tenderness, bowel sounds present Extremities: Warm bilaterally, trace edema Neuro: Intubated sedated anxious on sedation hold follows commands moves extremities. No focal deficit A/P Assessment and Plan 72-year-old female with: ASSESSMENT: Severe sepsis E Coli bacteremia Acute respiratory failure Worsening acute kidney failure/ATN Atrial fibrillation with RVR, now NSR UTI with E. coli Lactic acidosis Moderate hydronephrosis Chronic atrial fibrillation Moderate mitral stenosis, mild to moderate aortic stenosis, moderate tricuspid regurgitation Colon cancer with suspected metastatic disease Vitamin B12 deficiency Diabetes Type 2 - on insulin h/o Hypertension Hyperlipidemia Depression Hypothyroidism h/o CVA h/o PE (03/2017) h/o Pyelo/PNA (03/2017 requiring intubation) PLAN: Neuro: -Continue propofol for sedation and vent synchrony -Daily sedation medication as tolerated Cardiovascular: -Status post 4 L crystalloid bolus, currently on normal saline at 50 mL/h -Due to oliguria give 500 mL bolus now and increase maintenance 200 mL/h -Continue IV amiodarone since 11/01. Transition to p.o. amiodarone again in 24 hours if patient remains in sinus rhythm -IV digoxin as needed -Raymond-Synephrine GTT to keep map above 65. Now weaned off -Holding Xarelto for anticoagulation, Continue IV heparin -Need rate control due to moderate mitral stenosis and mild to moderate aortic stenosis, currently NSR Pulmonary: -Intubated 11/01/17 for acute respiratory failure -Vent bundle, DuoNeb every 6 hours and as needed -Did not tolerate spontaneous breathing trial GI/liver: -Keep n.p.o. Pepcid for GI prophylaxis. Start tube feeds with Nepro Renal/: -Gallo catheter. Strict intake output, monitor and replete electrolytes, follow BUN/creatinine. -Nephrology following. Patient is oliguric with worsening creatinine now 3.36 -No emergency indication for dialysis but may need dialysis soon -Urology consulted in the setting of moderate hydronephrosis with renal failure , did not recommend stent placement ID: -Patient received IV vancomycin and Zosyn and Rocephin in the ER. -Currently on Meropenem renally adjusted. Change to Rocephin 11/03/2017 as the E. coli is pansensitive -1 dose of tobramycin given overnight on 11/01 -Blood and urine culture pansensitive E. coli Heme-onc: -Dr. Sly Candelario consulted for history of colon cancer in suspected metastatic lesions on CT abdomen pelvis. -Need PET scan when stable Endocrine: -SSI for glycemic control. -Vitamin B12 level is low.vitamin B12 injections 1000 mcg IM daily for 10 days then monthly Prophylaxis: -Pepcid/SCDs. Hold Xarelto, continue IV heparin Access: -Has peripheral IVs and port. Central line if needed Patient's condition is very critical with multiorgan dysfunction, worsening respiratory failure, now intubated and renal failure along with severe sepsis. Renal failure is getting worse patient may still need renal replacement therapy Time spent on critical care excluding procedures 35 minutes Jan Garcia MD November 03, 2017 12:42
[2017-11-03] MEDS: cefTRIAXone INJ 1,000 MG in SODIUM CHLORIDE 0.9% INJ 100 ML IV SCH (13:09)
[2017-11-03] MEDS: VASOPRESSIN INJ 40 UNITS in DEXTROSE 5% IN WATER 100ML INJ 98 ML IV SCH ×2 (14:43)
[2017-11-03 14:53] LABS: SODIUM,RANDOM URINE 10 MEQ/L
[2017-11-03 15:21] LABS: OSMOLALITY,URINE 306 MOSM/KG (300-1300)
[2017-11-03] MEDS: PHENYLEPHRINE 40 MG in D5W 500 ML IV PRN (15:29)
[2017-11-03] MEDS: HEPARIN-D5W 25,000 U/250 ML 250 ML IV PRN (17:48)
[2017-11-04] VITALS (17 sets, daily range): BP systolic 111–198; BP diastolic 65–98; PULSE 66–100; RESP 16–20; TEMP 97.6–98.9; O2SAT 96–100
[2017-11-04 04:56] LABS: AUTOMATED NEUTROPHIL # 14.8 TH/MM3 (1.8-7.7); BASOPHIL % 0.1 % (0.0-2.0); EOSINOPHIL % 0.1 % (0.0-4.0); HEMATOCRIT 32.9 % (35.0-46.0); HEMOGLOBIN 10.6 GM/DL (11.6-15.3); LYMPH % 6.7 % (9.0-44.0); LYMPHOCYTE # 1.2 TH/MM3 (1.0-4.8); MEAN CELL VOLUME 80.4 FL (80.0-100.0); MEAN CORPUSCULAR HGB CONC 32.3 % (32.0-36.0); MEAN PLATELET VOLUME 9.7 FL (7.0-11.0); MONO % 9.7 % (0.0-8.0); MONOCYTE # 1.7 TH/MM3 (0-0.9); NEUT % 83.4 % (16.0-70.0); PLATELET COUNT 179 TH/MM3 (150-450); RED BLOOD COUNT 4.09 MIL/MM3 (4.00-5.30); RED CELL DISTRIBUTION WIDTH 18.2 % (11.6-17.2); WHITE BLOOD COUNT 17.7 TH/MM3 (4.0-11.0)
[2017-11-04 05:34] LABS: ALBUMIN 2.6 GM/DL (3.4-5.0); BICARBONATE 17.8 MEQ/L (21.0-32.0); CALCIUM 6.6 MG/DL (8.5-10.1); CREATININE 3.53 MG/DL (0.50-1.00); MAGNESIUM 2.6 MG/DL (1.5-2.5); TOTAL BILIRUBIN ADULT 1.6 MG/DL (0.2-1.0); TOTAL PROTEIN 7.1 GM/DL (6.4-8.2)
[2017-11-04 05:35] LABS: CALCIUM-PROTEIN CORRECTED 6.6 MG/DL (8.5-10.1)
[2017-11-04] MEDS: HYDROCORTISONE SOD SUCCINATE 100 MG VIAL IV PUSH SCH ×3 (05:36→22:07)
[2017-11-04] MEDS: LEVOTHYROXINE SODIUM 50 MCG TAB PO SCH (05:37)
[2017-11-04 07:15] LABS: BANDS 9 % (0-6); CORRECTED NUCLEATED RBC 3 /100 WBC (0-0); LYMPHOCYTES 7 % (9-44); METAMYELOCYTES 2 % (0-1); MONOCYTES 9 % (0-8); MYELOCYTES 8 % (0-0); NEUTROPHIL # MANUAL DIFF 14.9 TH/MM3 (1.8-7.7); NUCLEATED RED BLOOD CELL 3 (0-0); POLYS (SEG NEUTROPHILS) 65 % (16-70)
--- NOTE | 2017-11-04 07:52 | PD.ONC.PN ---
Subjective Subjective Remarks Events noted. Pt sedated on vent. No bleeding noted. Objective Data Date Time Temp Pulse Resp B/P (MAP) Pulse Ox O2 Delivery O2 Flow Rate FiO2 11/04/17 06:00 81 11/04/17 06:00 98 Mechanical Ventilator 40 11/04/17 04:00 40 11/04/17 04:00 98 Mechanical Ventilator 40 11/04/17 04:00 66 11/04/17 04:00 97.6 83 18 124/84 (97) 96 11/04/17 03:43 100 40 11/04/17 00:00 40 11/04/17 00:00 77 11/03/17 23:08 99 40 11/03/17 22:00 64 11/03/17 20:15 98 40 11/03/17 20:00 98 Mechanical Ventilator 40 11/03/17 20:00 64 11/03/17 20:00 40 11/03/17 20:00 99.8 64 18 113/62 (79) 98 11/03/17 18:45 70 126/70 11/03/17 18:45 70 126/70 11/03/17 18:00 70 11/03/17 17:45 85 18 130/71 (90) 99 11/03/17 17:30 63 18 110/58 (75) 98 11/03/17 17:15 64 18 113/59 (77) 98 11/03/17 17:00 70 18 114/60 (78) 99 11/03/17 16:45 71 20 123/70 (87) 99 11/03/17 16:31 98 40 11/03/17 16:30 71 18 109/56 (73) 98 11/03/17 16:15 73 18 110/64 (79) 98 11/03/17 16:00 40 11/03/17 16:00 63 11/03/17 16:00 99.2 63 18 109/58 (75) 97 11/03/17 15:45 72 18 113/61 (78) 97 11/03/17 15:30 79 18 113/67 (82) 98 11/03/17 15:29 82 111/71 11/03/17 15:28 81 111/71 11/03/17 15:15 83 18 111/71 (84) 98 11/03/17 15:00 79 19 106/70 (82) 97 5/13/18 14:45 79 18 107/68 (81) 96 11/03/17 14:43 64 106/70 11/03/17 14:30 65 19 101/67 (78) 96 11/03/17 14:16 82 19 105/65 (78) 96 11/03/17 14:00 82 18 78/58 (65) 96 11/03/17 14:00 82 11/03/17 14:00 82 78/58 11/03/17 13:30 75 18 82/56 (65) 97 11/03/17 13:15 67 18 81/52 (62) 97 11/03/17 13:00 66 18 83/53 (63) 97 11/03/17 12:45 67 19 85/53 (64) 97 11/03/17 12:30 68 18 88/50 (63) 97 11/03/17 12:15 77 18 90/52 (65) 98 11/03/17 12:00 99.4 91 9 94/60 (71) 97 11/03/17 12:00 91 11/03/17 12:00 40 11/03/17 11:23 98 40 11/03/17 10:00 94 11/03/17 09:32 93 17 199/95 (129) 95 11/03/17 09:30 91 13 192/93 (126) 94 11/03/17 09:30 91 192/93 11/03/17 09:20 40 11/03/17 09:15 67 18 98/58 (71) 95 11/03/17 09:00 58 17 95/57 (70) 94 11/03/17 08:45 62 107/58 11/03/17 08:45 62 18 107/58 (74) 95 11/03/17 08:30 67 22 114/59 (77) 97 11/03/17 08:30 67 114/59 11/03/17 08:15 84 15 144/76 (98) 97 11/03/17 08:00 40 11/03/17 08:00 99.6 75 18 101/67 (78) 95 11/03/17 08:00 75 11/03/17 07:58 95 40 11/04/17 11/04/17 11/04/17 07:00 15:00 23:00 Intake Total 1700 ml Output Total 550 ml Balance 1150 ml Result Diagram: 11/04/17 0400 11/04/17 0400 Laboratory Results Laboratory Tests Test 11/03/17 13:10 11/04/17 04:00 Urine Osmolality 306 MOSM/KG Urine Random Sodium 10 MEQ/L White Blood Count 17.7 TH/MM3 Red Blood Count 4.09 MIL/MM3 Hemoglobin 10.6 GM/DL Hematocrit 32.9 % Mean Corpuscular Volume 80.4 FL Mean Corpuscular Hemoglobin 26.0 PG Mean Corpuscular Hemoglobin Concent 32.3 % Red Cell Distribution Width 18.2 % Platelet Count 179 TH/MM3 Mean Platelet Volume 9.7 FL Neutrophils (%) (Auto) 83.4 % Lymphocytes (%) (Auto) 6.7 % Monocytes (%) (Auto) 9.7 % Eosinophils (%) (Auto) 0.1 % Basophils (%) (Auto) 0.1 % Neutrophils # (Auto) 14.8 TH/MM3 Lymphocytes # (Auto) 1.2 TH/MM3 Monocytes # (Auto) 1.7 TH/MM3 Eosinophils # (Auto) 0.0 TH/MM3 Basophils # (Auto) 0.0 TH/MM3 CBC Comment AUTO DIFF Differential Total Cells Counted 100 Neutrophils % (Manual) 65 % Band Neutrophils % 9 % Lymphocytes % 7 % Monocytes % 9 % Neutrophils # (Manual) 14.9 TH/MM3 Metamyelocytes 2 % Myelocytes 8 % Nucleated Red Blood Cells 3 /100 WBC Differential Comment FINAL DIFF MANUAL Atypical Lymphocytes % Platelet Estimate NORMAL Platelet Morphology Comment NORMAL Activated Partial Thromboplast Time 35.5 SEC Blood Urea Nitrogen 76 MG/DL Creatinine 3.53 MG/DL Random Glucose 143 MG/DL Total Protein 7.1 GM/DL Albumin 2.6 GM/DL Calcium Level 6.6 MG/DL Magnesium Level 2.6 MG/DL Alkaline Phosphatase 55 U/L Aspartate Amino Transf (AST/SGOT) 301 U/L Alanine Aminotransferase (ALT/SGPT) 157 U/L Total Bilirubin 1.6 MG/DL Sodium Level 133 MEQ/L Potassium Level 4.6 MEQ/L Chloride Level 98 MEQ/L Carbon Dioxide Level 17.8 MEQ/L Anion Gap 17 MEQ/L Estimat Glomerular Filtration Rate 13 ML/MIN Protein Corrected Calcium 6.6 MG/DL Culture Results Microbiology Date/Time Source Procedure Growth Status 11/02/17 04:23 Blood Peripheral Aerobic Blood Culture - Preliminary NO GROWTH IN 1 DAY Resulted 11/02/17 04:23 Blood Peripheral Anaerobic Blood Culture - Preliminary NO GROWTH IN 1 DAY Resulted 11/02/17 04:17 Blood Peripheral Aerobic Blood Culture - Preliminary NO GROWTH IN 1 DAY Resulted 11/02/17 04:17 Blood Peripheral Anaerobic Blood Culture - Preliminary NO GROWTH IN 1 DAY Resulted 11/01/17 20:00 Stool Stool Stool Occult Blood (NANI) - Final HEMOCCULT NEGATIVE Complete Administered Medications Medications (Trade) Dose Ordered Sig/Chiqui Route PRN Reason Start Time Stop Time Status Last Admin Dose Admin Amiodarone HCl (Cordarone) 200 mg DAILY PO 11/01/17 09:00 Future Hold 11/01/17 08:14 Fluoxetine HCl (PROzac) 20 mg DAILY PO 11/01/17 09:00 11/03/17 08:12 Levothyroxine Sodium (Synthroid) 50 mcg DAILY@0600 PO 11/01/17 06:00 11/04/17 05:37 Pravastatin Sodium (Pravachol) 40 mg DAILY PO 11/01/17 09:00 11/03/17 08:11 Venlafaxine HCl (Effexor Xr) 75 mg DAILY PO 11/01/17 09:00 11/01/17 10:12 Sodium Chloride (NS Flush) 2 ml BID IV FLUSH 10/31/17 21:00 11/03/17 08:13 Acetaminophen (Tylenol) 650 mg Q4H PRN PO TEMP > 100.4 10/31/17 15:30 11/01/17 19:50 Senna/Docusate Sodium (Elsa-Colace) 1 tab BID PO 10/31/17 21:00 11/03/17 21:21 Insulin Aspart (NovoLOG SUPPLEMENTAL SCALE) 1 ACHS SLIDING SCALE SQ 10/31/17 17:00 11/02/17 21:00 Miscellaneous Information ([facility] Information) Patient in critical care unit? Ass... [id number] .XX 10/31/17 23:15 10/31/17 23:15 Chlorhexidine Gluconate (Chlorhexidine 2% Cloth) 3 pack DAILY@04 TOPICAL 11/01/17 04:00 11/05/17 04:01 11/02/17 04:00 Phenylephrine HCl 40 mg/Dextrose 500 ml @ 30 mls/hr TITRATE PRN IV Blood Pressure Management 10/31/17 23:30 11/03/17 15:29 Heparin Sodium/ Dextrose 250 ml @ 10 mls/hr TITRATE PRN IV Coagulation Management 11/01/17 09:00 11/03/17 17:48 Albumin Human 50 ml @ 60 mls/hr Q12H IV 11/01/17 09:00 11/03/17 21:20 Cyanocobalamin (Vitamin B12 Inj) 1,000 mcg DAILY SQ 11/01/17 11:00 11/11/17 10:59 11/03/17 08:12 Amiodarone HCl 450 mg/Sodium Chloride 259 ml @ 33.33 mls/ hr Q7H47M PRN IV Per Protocol 11/01/17 11:00 11/02/17 12:32 Acetaminophen/ Hydrocodone Bitart ([place] 5-325 Mg) 1 tab Q4H PRN PO PAIN GREATER THAN 5 11/01/17 13:15 11/01/17 20:59 Temazepam (Restoril) 15 mg HS PRN PO INSOMNIA 11/01/17 22:00 11/01/17 22:43 Propofol 100 ml @ 0 mls/hr TITRATE PRN IV SEDATION 11/02/17 04:00 11/02/17 04:24 Fentanyl Citrate 250 ml @ 5 mls/hr TITRATE PRN IV SEDATION 11/02/17 04:15 11/03/17 02:32 Midazolam HCl (Versed Inj) 2 mg Q15M PRN IV PUSH SEDATION 11/02/17 04:15 11/04/17 05:36 Chlorhexidine Gluconate (Peridex 0.12% Liq) 15 ml BID@08,20 MT 11/02/17 08:00 11/03/17 08:00 Vasopressin 40 units/Dextrose 100 ml @ 6 mls/hr [id number] IV 11/02/17 05:23 11/02/17 05:35 Hydrocortisone Sodium Succinate (SoluCORTEF INJ) 100 mg Q8HR IV PUSH 11/02/17 05:30 11/04/17 05:36 Sodium Chloride 1,000 ml @ 100 mls/hr Q10H IV 11/02/17 10:15 11/03/17 06:02 Ceftriaxone Sodium 1000 mg/ Sodium Chloride 100 ml @ 200 mls/hr Q24H IV 11/03/17 13:00 5/13/18 13:09 Objective Remarks GENERAL: Well-nourished, well-developed patient. On vent. SKIN: Warm and dry. HEAD: Normocephalic. EYES: No scleral icterus. No injection or drainage. NECK: Supple, trachea midline. No JVD or lymphadenopathy. LYMPHATIC: No adenopathy. CARDIOVASCULAR: Regular rate and rhythm without murmurs. RESPIRATORY: Breath sounds equal bilaterally. No accessory muscle use. On vent. GASTROINTESTINAL: Abdomen soft, non-tender, slightly distended. EXTREMITIES: No cyanosis, or edema. MUSCULOSKELETAL: Adequate muscle tone. NEUROLOGICAL: Sedated, open eyes to command. Assessment/Plan Problem List: (1) Cancer, colon ICD Codes: C18.9 - Malignant neoplasm of colon, unspecified Status: Acute (2) Sepsis due to Gram-negative organism with septic shock ICD Codes: A41.50 - Gram-negative sepsis, unspecified; R65.21 - Severe sepsis with septic shock Status: Resolved (3) Pulmonary emboli ICD Codes: I26.99 - Other pulmonary embolism without acute cor pulmonale Status: Chronic Assessment 1. Septic shock. She appeared to have a urinary tract infection/pyelonephritis. She started having left back pain and increased weakness on . She had fever up to 103.4 when she came to the hospital. Blood culture grew E.Coli which is pansensitive. 2. Leukocytosis due to urinary tract infection. She has 28% bandemia. Improving with abx. 3. History of sigmoid colon adenocarcinoma, status post resection. Pathologic stage [id number]. She has high risk colon cancer. She completed adjuvant Xeloda 08/2016. Recent CT showed widespread sclerotic bone lesions; however, bone scan did not show any uptake. She has no significant bone pain. The lesion was too small for biopsy. She could not complete the PET/CT last week due to weakness. She will need a PET scan once discharged from the hospital for further evaluation. 4. History of pulmonary embolism developed when she was admitted to the hospital last year with sepsis. She was on Xarelto. Her V/Q scan showed low probability for pulmonary embolism. She is now on heparin due to acute renal failure. 5. Acute renal failure likely due to infection and sepsis. 6. Anemia due to the sepsis. She also had mild thrombocytopenia. She likely has a low-grade consumptive process. Plan PLAN: 1. Discussed with the patient's . 2. Continue antibiotic per primary team. 3. Continue heparin. 4. The patient will need outpatient PET scan to further evaluate the bone lesion. Sly Candelario MD November 04, 2017 07:52
[2017-11-04] MEDS: INSULIN ASPART SUPPLEMENTAL SCALE SQ SCH ×4 (08:00→19:59)
[2017-11-04] MEDS: DOCUSATE SODIUM 50 MG/SENNA 8.6 MG TAB PO SCH ×2 (08:18→19:58)
[2017-11-04] MEDS: FLUoxetine HCL 20 MG CAP PO SCH (08:18)
[2017-11-04] MEDS: CYANOCOBALAMIN 1000 MCG/ML VIAL SQ SCH (08:19)
[2017-11-04] MEDS: PRAVASTATIN SOD 40 MG TAB PO SCH (08:19)
[2017-11-04] MEDS: VENLAFAXINE HCL XR 75 MG CAP PO SCH (08:19)
[2017-11-04] MEDS: CHLORHEXIDINE 0.12% (ORAL KIT) 15 ML CUP MT SCH ×2 (08:20→20:00)
[2017-11-04] MEDS: SODIUM CHLORIDE 0.9% FLUSH 10 ML FLUSH IV FLUSH SCH ×2 (08:20→19:59)
[2017-11-04] MEDS: ALBUMIN 25% INJ 50 ML IV SCH ×2 (08:23→19:58)
--- NOTE | 2017-11-04 08:58 | HHI.CCPN ---
Subjective Remarks/Hospital Course 72-year-old female with a medical history significant for colon cancer, hypertension, hyperlipidemia, atrial fibrillation status post previous ablation , type 2 diabetes mellitus who presented to the ER with generalized weakness and was hypotensive on arrival. She was diagnosed to have a UTI/sepsis. She received 4 L fluids in the ER with systolic blood pressure coming up to the 90s however was tachycardic with heart rate going up to 130s atrial fibrillation. She had a negligible urine output despite 4 L IV fluids and an elevated lactic acid with concern for severe sepsis and acute kidney injury. Patient was admitted by family medicine service and critical care consult was requested by ER physician. I evaluated the patient in the ER. At that time she was on 2 L nasal cannula maintaining O2 sats around 98%. Her systolic blood pressure was in the mid 90 range. She was in atrial fibrillation with heart rate ranging from 110-120s. Patient was awake and alert at the time of my evaluation and was following commands appropriately. She denied any worsening shortness of breath or chest pain at the time. She did have some abdominal discomfort. She appeared slightly tachypneic. She had already received empiric antibiotic coverage. History was obtained by discussion with , ER physician, family medicine residents and review of records. Patient has reportedly not had anything to eat or drink for 30 hours prior to admission. She has been having burning with urination over the past 2 days. Patient had a head CT which was unremarkable, CT abdomen pelvis revealed moderate hydronephrosis, VQ scan was low probability for PE. 11/01: Patient appears critical, tachypneic. Urine output marginal 200 mL overnight shift time. Blood cultures 4 out of 4 bottles positive for gram- negative rods. Currently on 40 mcg/min of Raymond-Synephrine. Remaisn in A fib with RVR. Will start Amiodarone gtt, attempt rate control/cardioverted. Previous echo done last year shows EF 55-60%, moderate mitral stenosis, mild to moderate aortic stenosis, moderate TR, also will hold Xarelto start IV heparin 11/02: Patient remains very critically ill and septic shock now in respiratory failure. Overnight required intubation for tachypnea and respiratory distress. Received a dose of tobramycin Sensitivities are pending for E. coli. White count has dropped to 2.1 creatinine is 2.12 today. Will discontinue Zosyn and start renally dosed meropenem. Remains on amiodarone infusion heart rate slightly better controlled. Raymond-Synephrine just weaned off, but currently patient is hypotensive with maps 61 11/03: Remains very critical. Failed CPAP trials. Off pressors but urine output is decreasing creatinine has increased BUN 59/creatinine 3.36. WBC count elevated to 20.3 with a 22% bands. E. coli is pansensitive DC meropenem and start Rocephin. 11/04: Remains sedated, orally intubated on mechanical ventilation. On Levophed 2 mics per minute for hypotension. Failed CPAP trial yesterday. Objective Vital Signs Date Time Temp Pulse Resp B/P (MAP) Pulse Ox O2 Delivery O2 Flow Rate FiO2 11/04/17 07:41 100 40 11/04/17 06:00 81 11/04/17 06:00 Mechanical Ventilator 11/04/17 04:00 97.6 18 124/84 (97) 11/02/17 00:25 4.00 Intake and Output 11/04/17 11/04/17 11/05/17 08:00 16:00 00:00 Intake Total 1700 ml Output Total 550 ml Balance 1150 ml Result Diagram: 11/04/17 0400 11/04/17 0400 Other Results Microbiology Date/Time Source Procedure Growth Status 11/01/17 20:00 Stool Stool Stool Occult Blood (NANI) - Final HEMOCCULT NEGATIVE Complete Imaging Last 48 hours Impressions Chest X-Ray 11/03/17 0600 Signed Impressions: Service Date/Time: Friday, November 03, 2017 04:01 - CONCLUSION: No significant change. Rboe Menchaca MD Last Impressions Head CT 10/31/17 1321 Signed Impressions: Service Date/Time: October 14:02 - CONCLUSION: 1. No acute intracranial findings. Left sphenoid sinusitis. Remote lacunar infarct right frontal white matter. Samuel Lin MD Abdomen/Pelvis CT 10/31/17 1321 Signed Impressions: Service Date/Time: October 13:58 - CONCLUSION: 1. Development of innumerable small sclerotic lesions in the skeleton most characteristic of sclerotic bony metastatic disease. There is a reported history of malignancy. 2. Hepatomegaly with development of mild ascites. 3. Persistent moderate hydronephrosis with perinephric stranding similar to February 2017. Interval development of mild anasarca. 4. Gallbladder sludge. Gallo catheter in bladder. Samuel Lin MD Lung Scan-VQ Nuclear Medicine 10/31/17 0000 Signed Impressions: Service Date/Time: October 15:00 - CONCLUSION: Low probability scan for pulmonary embolism Jose Wright MD Chest X-Ray 10/31/17 0000 Signed Impressions: Service Date/Time: October 12:24 - CONCLUSION: No acute disease. Heart size appears enlarged. Jose Pablo MD Objective Remarks Gen: 72-year-old critically ill female who is intubated sedated HEENT: No pallor or icterus, orotracheally intubated Neck: No JVD Chest/pulmonary: Air entry equal bilaterally, tachypneic diminished at the bases with fine crackles Cardiovascular: Converted to sinus rhythm now, no gallop or murmur. Remains on amiodarone GI/abdomen: Soft, vague tenderness, bowel sounds present Extremities: Warm bilaterally, trace edema Neuro: Intubated sedated anxious on sedation hold follows commands moves extremities. No focal deficit A/P Assessment and Plan 72-year-old female with: ASSESSMENT: Severe sepsis E Coli bacteremia Acute respiratory failure Worsening acute kidney failure/ATN Atrial fibrillation with RVR, now NSR UTI with E. coli Lactic acidosis Moderate hydronephrosis Chronic atrial fibrillation Moderate mitral stenosis, mild to moderate aortic stenosis, moderate tricuspid regurgitation Colon cancer with suspected metastatic disease Vitamin B12 deficiency Diabetes Type 2 - on insulin h/o Hypertension Hyperlipidemia Depression Hypothyroidism h/o CVA h/o PE (03/2017) h/o Pyelo/PNA (03/2017 requiring intubation) PLAN: Neuro: -Continue propofol for sedation and vent synchrony -Daily sedation medication as tolerated Cardiovascular: -Status post 4 L crystalloid bolus, currently on normal saline at 50 mL/h -Due to oliguria give 500 mL bolus now and increase maintenance 200 mL/h -Continue IV amiodarone since 11/01. Transition to p.o. amiodarone again in 24 hours if patient remains in sinus rhythm -IV digoxin as needed -Raymond-Synephrine GTT to keep map above 65. Now weaned off -Holding Xarelto for anticoagulation, Continue IV heparin -Need rate control due to moderate mitral stenosis and mild to moderate aortic stenosis, currently NSR Pulmonary: -Intubated 11/01/17 for acute respiratory failure -Vent bundle, DuoNeb every 6 hours and as needed -Did not tolerate spontaneous breathing trial GI/liver: -Keep n.p.o. Pepcid for GI prophylaxis. Start tube feeds with Nepro Renal/: -Gallo catheter. Strict intake output, monitor and replete electrolytes, follow BUN/creatinine. -Nephrology following. Patient is oliguric with worsening creatinine -No emergency indication for dialysis but may need dialysis soon -Urology consulted in the setting of moderate hydronephrosis with renal failure , did not recommend stent placement ID: -Patient received IV vancomycin and Zosyn and Rocephin in the ER. -Meropenem changed to Rocephin 11/03/2017 as the E. coli is pansensitive -1 dose of tobramycin given overnight on 11/01 -Blood and urine culture pansensitive E. coli Heme-onc: -Dr. Sly Candelario consulted for history of colon cancer in suspected metastatic lesions on CT abdomen pelvis. -Need PET scan when stable Endocrine: -SSI for glycemic control. -Vitamin B12 level is low.vitamin B12 injections 1000 mcg IM daily for 10 days then monthly Prophylaxis: -Pepcid/SCDs. Hold Xarelto, continue IV heparin Access: -Has peripheral IVs and port. Central line if needed Patient's condition is very critical with multiorgan dysfunction, worsening respiratory failure, now intubated and renal failure along with severe sepsis. Renal failure is getting worse patient may need renal replacement therapy Discussed current clinical status with patient's at bedside including plan of care and he voiced understanding and was agreeable. Time spent on critical care excluding procedures 35 minutes Fernando Srinivasan MD November 04, 2017 08:58
--- NOTE | 2017-11-04 09:08 | HHI.FPPN ---
Subjective Remarks Mrs. Marroquin was afebrile with stable vital signs overnight (on mechanical ventilation w/ FiO2 40. RR 18, afebrile, pulse <100, BP normotensive). 750ml output overnight. Per nursing staff at bedside, patient has had periods with hypertension w/ SBP ~ 200. Patient currently off of Raymond-Synephrine. Patient on Fentanyl 100mcg for sedation. Per at bedside, she seems to be doing ok with exception of agitation when Fentanyl weaned. Patient seems to have more urination per . Patient would blink in response to lights and seemed to have some nonverbal responses to questions but would not squeeze hands on command. (Oscar Santos MD R3) Objective Vitals Vital Signs Date Time Temp Pulse Resp B/P (MAP) Pulse Ox O2 Delivery O2 Flow Rate FiO2 11/04/17 07:41 100 40 11/04/17 06:00 81 11/04/17 06:00 98 Mechanical Ventilator 40 11/04/17 04:00 40 11/04/17 04:00 98 Mechanical Ventilator 40 11/04/17 04:00 66 11/04/17 04:00 97.6 83 18 124/84 (97) 96 11/04/17 03:43 100 40 11/04/17 00:00 40 11/04/17 00:00 77 11/03/17 23:08 99 40 11/03/17 22:00 64 11/03/17 20:15 98 40 11/03/17 20:00 98 Mechanical Ventilator 40 11/03/17 20:00 64 11/03/17 20:00 40 11/03/17 20:00 99.8 64 18 113/62 (79) 98 11/03/17 18:45 70 126/70 11/03/17 18:45 70 126/70 11/03/17 18:00 70 11/03/17 17:45 85 18 130/71 (90) 99 11/03/17 17:30 63 18 110/58 (75) 98 11/03/17 17:15 64 18 113/59 (77) 98 11/03/17 17:00 70 18 114/60 (78) 99 11/03/17 16:45 71 20 123/70 (87) 99 11/03/17 16:31 98 40 11/03/17 16:30 71 18 109/56 (73) 98 11/03/17 16:15 73 18 110/64 (79) 98 11/03/17 16:00 40 11/03/17 16:00 63 11/03/17 16:00 99.2 63 18 109/58 (75) 97 11/03/17 15:45 72 18 113/61 (78) 97 11/03/17 15:30 79 18 113/67 (82) 98 11/03/17 15:29 82 111/71 11/03/17 15:28 81 111/71 11/03/17 15:15 83 18 111/71 (84) 98 11/03/17 15:00 79 19 106/70 (82) 97 11/03/17 14:45 79 18 107/68 (81) 96 11/03/17 14:43 64 106/70 11/03/17 14:30 65 19 101/67 (78) 96 11/03/17 14:16 82 19 105/65 (78) 96 11/03/17 14:00 82 18 78/58 (65) 96 11/03/17 14:00 82 11/03/17 14:00 82 78/58 11/03/17 13:30 75 18 82/56 (65) 97 11/03/17 13:15 67 18 81/52 (62) 97 11/03/17 13:00 66 18 83/53 (63) 97 11/03/17 12:45 67 19 85/53 (64) 97 11/03/17 12:30 68 18 88/50 (63) 97 11/03/17 12:15 77 18 90/52 (65) 98 11/03/17 12:00 99.4 91 9 94/60 (71) 97 11/03/17 12:00 91 11/03/17 12:00 40 11/03/17 11:23 98 40 11/03/17 10:00 94 11/03/17 09:32 93 17 199/95 (129) 95 11/03/17 09:30 91 13 192/93 (126) 94 11/03/17 09:30 91 192/93 11/03/17 09:20 40 11/03/17 09:15 67 18 98/58 (71) 95 11/03/17 09:00 58 17 95/57 (70) 94 I/O 11/03/17 11/03/17 11/03/17 11/04/17 11/04/17 11/04/17 07:00 15:00 23:00 07:00 15:00 23:00 Intake Total 2888 ml 860 ml 1464 ml 1700 ml Output Total 500 ml 200 ml 550 ml Balance 2388 ml 860 ml 1264 ml 1150 ml IV Total 2888 ml 860 ml 1464 ml 1600 ml Tube Feeding 100 ml Output Urine Total 200 ml 200 ml 550 ml Gastric Drainage Total 300 ml 0 ml # Bowel Movements 0 (Oscar Santos MD R3) Result Diagram: 11/04/17 0400 11/04/17 0400 Imaging Last Impressions Chest X-Ray 11/03/17 0600 Signed Impressions: Service Date/Time: Friday, November 03, 2017 04:01 - CONCLUSION: No significant change. Robe Menchaca MD Head CT 10/31/17 1321 Signed Impressions: Service Date/Time: October 14:02 - CONCLUSION: 1. No acute intracranial findings. Left sphenoid sinusitis. Remote lacunar infarct right frontal white matter. Samuel Lin MD Abdomen/Pelvis CT 10/31/17 1321 Signed Impressions: Service Date/Time: October 13:58 - CONCLUSION: 1. Development of innumerable small sclerotic lesions in the skeleton most characteristic of sclerotic bony metastatic disease. There is a reported history of malignancy. 2. Hepatomegaly with development of mild ascites. 3. Persistent moderate hydronephrosis with perinephric stranding similar to February 2017. Interval development of mild anasarca. 4. Gallbladder sludge. Jacobsen catheter in bladder. Samuel Lin MD Lung Scan-VQ Nuclear Medicine 10/31/17 0000 Signed Impressions: Service Date/Time: October 15:00 - CONCLUSION: Low probability scan for pulmonary embolism Jose Wright MD Objective Remarks GENERAL: This is a well-nourished, well-developed patient, on ventilator and sedation. SKIN: No rashes, ecchymoses or lesions. Cool and dry. EYES: Pupils equal round and reactive ENT: OG in place. Nose without bleeding or purulent drainage. Airway patent. NECK: Trachea midline. CARDIOVASCULAR: Normal rate and rhythm. Normal distal LE perfusion bilaterally RESPIRATORY: Ventilator PRVC A/C PEEP 5, FiO2 40. no asymmetry to auscultation GASTROINTESTINAL: Abdomen soft, distended. Normal bowel sounds. OG tube in place MUSCULOSKELETAL: Extremities without clubbing, cyanosis, or edema. NEUROLOGICAL: Sedated w/ Fentanyl, some hand movements but not responsive to questions; non-agitated (Oscar Santos MD R3) A/P Assessment and Plan Patient is a 72-year-old admitted due to UTI, meets sepsis criteria, also with sclerotic bony lesions concerning for colon cancer metastasis. Has had worsening respiratory function and now on ventilator since 11/02 Discharge Planning Prognosis unclear at this time Patient remains on ventilator Critical Care managing at this time, appreciate care of patient Notably asserts patient is full code (Oscar Santos MD R3) Attending Attestation Patient seen and examined. Discussed with Dr. Santos. I agree with the assessment and plan as documented. (Prevatte,Kin Phelps Jr., MD) Problem List: (1) Sepsis ICD Codes: A41.9 - Sepsis, unspecified organism Status: Acute Plan: Impression: Septic shock on admission; labs suggestive of multiorgan dysfunction. Patient with low MAP despite 4 L IVF Patient placed on Phenylephrine. Patient developed respiratory failure and required intubation Labs: Cr: 2.10 (10/31)-> 3.53 (11/04) WBC: 15.8 (10/31)-> 2.1 (11/02)-> 20.3 (11/03) -> 17.7 (11/04) Lactic acid: 3 (10/31) -> 3.3 (11/02) 11/04- stable blood pressures and vital signs -Critical care consulted -Continue antibiotic therapy -Rocephin 1gm daily -Nephrology consulted -Continue to monitor CBC, BMP, urine output -Continue to monitor VS; pressors discontinued and intermittent HTN Antibiotic history: s/p Meropenem 2gm q12hrs IV -s/p Zosyn 2.5mg q6hrs (10/31-11/02) -s/p Tobramycin IV x1 11/02 Cultures: 10/31- blood x2- taylor sensitive E Coli 10/31- urine- taylor sensitive E coli 11/02- blood x2- negative x48 hrs (2) Respiratory failure, acute ICD Codes: J96.00 - Acute respiratory failure, unspecified whether with hypoxia or hypercapnia Status: Acute Plan: Impression: Patient intubated 11/02 for tachypnea and respiratory distress ; ABG 11/02 with pH 7.18, CO2 52. 11/03- failed CPAP trials. CXR with persistent hazy opacities at bases 11/04- Remains on ventilator, sedated. -Continue management per Critical care -Ventilator bundle, Duonebs q6hrs as needed -Continue sedation -Continue Hydrocortisone 100mg IV q8hrs -CPAP trials (3) ASH (acute kidney injury) ICD Codes: N17.9 - Acute kidney failure, unspecified Status: Acute Plan: Impression: renal injury presumed secondary to septic shock/multiorgan dysfunction Cr- 2.12 on admission-> 2.59 (11/02) -> 3.53 (11/04) CT abdomen/pelvis- moderate hydronephrosis w/ perinephric stranding similar to . Interval development of mild anasarca. -Continue to monitor urine output w/ jacobsen -Urine output- 750ml (11/04) -Nephrology consulted -Continue IVF (100ml/hr NS, Albumin), antibiotics -Continue to monitor urine output/BMP -Ca replacement -Will consider HD if worsening -Urology consulted for hydronephrosis -Continue Jacobsen, antibiotics -Do not suspect obstruction; do not recommend stent placement -Recommend renal US next week (4) UTI (urinary tract infection) ICD Codes: N39.0 - Urinary tract infection, site not specified Plan: Impression: UA with large leukocyte esterase, innumerable WBCs, many WBC clumps Urine culture and blood cultures 10/31 with pansensitive E Coli -Management as above for sepsis (5) Atrial fibrillation ICD Codes: I48.91 - Unspecified atrial fibrillation Status: Chronic Plan: Impression: patient placed on amiodarone drip and given digoxin for afib with RVR on admission. Patient currently with normal rate/sinus rhythm. Patient with reported history of moderate mitral stenosis and mild/moderate aortic stenosis Echocardiogram- moderate concentric LVF. EF 70%. Aortic sclerosis present. Moderate /severe pulmonary HTN (60-70mmHg) Initially placed on heparin drip-> PO Amiodarone; currently on hold with sinus rhythm -Continue telemetry/monitoring VS -Continue IV heparin -Continue amiodarone as needed. (6) Aphasia ICD Codes: R47.01 - Aphasia Plan: Impression: Pt with difficulty finding words, nonsensical language on admission. history of TIA. Suspected secondary to sepsis CT head on admission w/o acute findings. 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 [id number]. s/p Zeloda 08/2016. Abdomen/Pelvis CT 10/31/17: Innumerable small sclerotic lesions in the skeleton, most characteristic of sclerotic bony metastatic disease -Dr. Candelario consulted -recent bone scan w/o uptake; reassuring regarding sclerotic lesions -plan for PET as outpatient -Continue heparin, treatment for sepsis (8) Weakness ICD Codes: R53.1 - Weakness Plan: -PT consulted; will evaluate once extubated/improving (9) Diabetes mellitus, type II ICD Codes: E11.9 - Type 2 diabetes mellitus Status: Chronic Plan: Will hold home medications -Low dose SSI, per Critical Care protocol -Continue to monitor blood sugar (10) Hypertension ICD Codes: I10 - Essential (primary) hypertension Status: Chronic Plan: Impression: PMH HTN. Initial hypotension on admission w/ septic shock. Now intermittent hypertension based on agitation/sedation/ -Continue to monitor; management per CC (11) Hypothyroidism ICD Codes: E03.9 - Hypothyroidism Status: Chronic Plan: Continue home Levothyroxine (12) FEN/PPX Plan: Fluid: Fluid per textiles printer -100ml/hr NS -Albumin 25% q12 hrs Electrolytes: Continue to monitor; replacement Nutrition: Diabetic diet DVT PPX: Per CC, on heparin gtt at this time (Oscar Santos MD R3) Problem Qualifiers (1) Sepsis: Qualified Codes: A41.9 - Sepsis, unspecified organism (2) UTI (urinary tract infection): (3) Atrial fibrillation: Qualified Codes: I48.2 - Chronic atrial fibrillation (4) Hypertension: Qualified Codes: I10 - Essential (primary) hypertension Oscar Santos MD R3 November 04, 2017 09:08 Prevatte,Kin Phelps Jr., MD November 04, 2017 15:24
--- NOTE | 2017-11-04 09:48 | HHI.NPPN ---
Subjective General Problems: Anemia, Edema, Hypotension, Mebatolic Acidosis Renal Failure: Acute History of Present Illness 72-year-old female with past medical history of hypertension, diabetes mellitus, hyperlipidemia, atrial fibrillation, history of colon cancer, history of acute kidney injury in the past. She was admitted with complaint of worsening shortness of breath and recurrent falls. I was called to see the patient because of elevated BUN and creatinine. The patient was seen by me when she was here in February of last year. At that time, she also has acute kidney injury and her creatinine was as high as 1.8, but it was improving and it went down to 0.6-0.7 which is her baseline. Additional Remarks Patient remain intubated, and sedated, urine out put is sightly better. Objective Data Data Vital Signs Date Time Temp Pulse Resp B/P (MAP) Pulse Ox O2 Delivery O2 Flow Rate FiO2 11/04/17 07:41 100 40 11/04/17 06:00 81 11/04/17 06:00 98 Mechanical Ventilator 40 11/04/17 04:00 40 11/04/17 04:00 98 Mechanical Ventilator 40 11/04/17 04:00 66 11/04/17 04:00 97.6 83 18 124/84 (97) 96 11/04/17 03:43 100 40 11/04/17 00:00 40 11/04/17 00:00 77 11/03/17 23:08 99 40 11/03/17 22:00 64 11/03/17 20:15 98 40 11/03/17 20:00 98 Mechanical Ventilator 40 11/03/17 20:00 64 11/03/17 20:00 40 11/03/17 20:00 99.8 64 18 113/62 (79) 98 11/03/17 18:45 70 126/70 11/03/17 18:45 70 126/70 11/03/17 18:00 70 11/03/17 17:45 85 18 130/71 (90) 99 11/03/17 17:30 63 18 110/58 (75) 98 11/03/17 17:15 64 18 113/59 (77) 98 11/03/17 17:00 70 18 114/60 (78) 99 11/03/17 16:45 71 20 123/70 (87) 99 11/03/17 16:31 98 40 11/03/17 16:30 71 18 109/56 (73) 98 11/03/17 16:15 73 18 110/64 (79) 98 11/03/17 16:00 40 11/03/17 16:00 63 11/03/17 16:00 99.2 63 18 109/58 (75) 97 11/03/17 15:45 72 18 113/61 (78) 97 11/03/17 15:30 79 18 113/67 (82) 98 11/03/17 15:29 82 111/71 11/03/17 15:28 81 111/71 11/03/17 15:15 83 18 111/71 (84) 98 11/03/17 15:00 79 19 106/70 (82) 97 11/03/17 14:45 79 18 107/68 (81) 96 11/03/17 14:43 64 106/70 11/03/17 14:30 65 19 101/67 (78) 96 11/03/17 14:16 82 19 105/65 (78) 96 11/03/17 14:00 82 18 78/58 (65) 96 11/03/17 14:00 82 11/03/17 14:00 82 78/58 11/03/17 13:30 75 18 82/56 (65) 97 11/03/17 13:15 67 18 81/52 (62) 97 11/03/17 13:00 66 18 83/53 (63) 97 11/03/17 12:45 67 19 85/53 (64) 97 11/03/17 12:30 68 18 88/50 (63) 97 11/03/17 12:15 77 18 90/52 (65) 98 11/03/17 12:00 99.4 91 9 94/60 (71) 97 11/03/17 12:00 91 11/03/17 12:00 40 11/03/17 11:23 98 40 11/03/17 10:00 94 -: 11/04/17 0400 11/04/17 0400 Physical Exam General Appearance Remarks Intubated and sedated. Eyes Eye Exam: Pupils Equal Throat Throat Exam: Oral Mucosa Reinbeck & Moist Neck Neck Exam: Neck Supple Pulmonary Resp Exam: Crackles, Rhonchi, Sputum, Decreased Bases, Diminished Breath Sounds , Poor Inspiratory Effort Cardiology CV Exam: Irregular, Arrhythmia Gastrointestinal/Abdomen GI Exam: Soft, Non-Tender, Bowel Sounds Present, Distended Extremeties Extremities Exam: Moderate Edema, Pitting Edema, Dependent Edema Neurologic Neuro Exam: Sedated Assessment/Plan Assessment Summary: ASH/Acute Renal Failure Problem List: (1) Diabetes mellitus, type II ICD Codes: E11.9 - Type 2 diabetes mellitus Status: Chronic (2) PNA (pneumonia) ICD Codes: J18.9 - Pneumonia, unspecified organism Status: Acute (3) Hypothyroidism ICD Codes: E03.9 - Hypothyroidism Status: Chronic (4) Atrial fibrillation ICD Codes: I48.91 - Unspecified atrial fibrillation Status: Chronic (5) Acute kidney failure ICD Codes: N17.9 - Acute kidney failure, unspecified (6) UTI (urinary tract infection) ICD Codes: N39.0 - Urinary tract infection, site not specified (7) Sepsis due to Gram-negative organism with septic shock ICD Codes: A41.50 - Gram-negative sepsis, unspecified; R65.21 - Severe sepsis with septic shock Status: Resolved Plan Patient has Acute kidney injury. Her baseline Creatinine is normal. She has E.Coli UTI and sepsis. Most likely has ATN causing ASH. Seen by urology. Now BP dropped, on the pressors. Intubated. BUN and Creatinine continue to increase. but now urine out put is improving. Continue antibiotics and IVF. Follow the urine out put and BMP. Calcium is low, will replace again. No urgent need for Dialysis at present, but possibly will need HD, if continue to get worse. D/W the at bed sides. Problem Qualifiers (1) UTI (urinary tract infection): Aixa Figueroa MD November 04, 2017 09:48
[2017-11-04] MEDS ORDERED: CALCIUM GLUCONATE INJ 2 GM in DEXTROSE 5% IN WATER 100ML INJ 100 ML IV ONE ×2 (10:00)
[2017-11-04] MEDS: SODIUM CHLOR 0.9% 1000 ML INJ 1,000 ML IV SCH ×2 (11:13→15:11)
[2017-11-04] MEDS: AMIODARONE INJ 450 MG in SODIUM CHLOR 0.9% (EXCEL) INJ 250 ML IV PRN (11:18)
[2017-11-04] MEDS: cefTRIAXone INJ 1,000 MG in SODIUM CHLORIDE 0.9% INJ 100 ML IV SCH (13:44)
[2017-11-04] MEDS: fentaNYL DRIP 250 ML IV PRN (16:11)
[2017-11-04] MEDS: HEPARIN-D5W 25,000 U/250 ML 250 ML IV PRN (16:12)
--- NOTE | 2017-11-04 18:36 | RADRPT ---
EXAM DATE/TIME: 11/04/2017 17:50 [place] COMPARISON: No previous studies available for comparison. INDICATIONS : Distention. MEDICAL HISTORY : Hypertension. Carcinoma, colon. A-Fib Diabetes SURGICAL HISTORY : Colon resection. ENCOUNTER: Initial ACUITY: 1 day PAIN SCORE: Non-responsive. LOCATION: Bilateral abdomen. FINDINGS: A nasogastric tube descends into the stomach. Mild gaseous distention of portions of the colon. Minim al gas evident in small bowel loops. No definite suspicious calcific density. CONCLUSION: Nonspecific intestinal gas pattern Jose Wright MD on November 04, 2017 at 18:33 Board Certified Radiologist. This report was verified electronically.
[2017-11-05] VITALS (18 sets, daily range): BP systolic 135–173; BP diastolic 69–88; PULSE 58–97; RESP 10–18; TEMP 97.9–99.2; O2SAT 96–100
[2017-11-05] MEDS: VASOPRESSIN INJ 40 UNITS in DEXTROSE 5% IN WATER 100ML INJ 98 ML IV SCH ×4 (00:01→16:43)
[2017-11-05] MEDS: SODIUM CHLOR 0.9% 1000 ML INJ 1,000 ML IV SCH ×2 (02:03→12:24)
[2017-11-05] MEDS: AMIODARONE INJ 450 MG in SODIUM CHLOR 0.9% (EXCEL) INJ 250 ML IV PRN ×2 (03:40→16:44)
[2017-11-05] MEDS: CHLORHEXIDINE GLUCONATE 2 % 1 PACK (2 CLOTHS)(taper/protocol) TOPICAL SCH (04:00)
[2017-11-05] MEDS: LEVOTHYROXINE SODIUM 50 MCG TAB PO SCH (04:26)
[2017-11-05] MEDS: HYDROCORTISONE SOD SUCCINATE 100 MG VIAL IV PUSH SCH ×3 (04:26→21:09)
[2017-11-05] MEDS: INSULIN ASPART SUPPLEMENTAL SCALE SQ SCH ×4 (08:00→21:09)
--- NOTE | 2017-11-05 08:00 | PD.ONC.PN ---
Subjective Subjective Remarks Remains sedated on vent. No bleeding reported. Good urine output. at the bed side. Objective Data Date Time Temp Pulse Resp B/P (MAP) Pulse Ox O2 Delivery O2 Flow Rate FiO2 11/05/17 07:26 100 40 11/05/17 06:00 65 11/05/17 04:00 40 11/05/17 04:00 98.6 69 18 142/78 (99) 99 11/05/17 04:00 69 11/05/17 03:40 101 189/97 11/05/17 03:01 100 40 11/05/17 02:00 58 11/05/17 00:01 67 137/80 11/05/17 00:00 98.6 67 18 137/80 (99) 99 11/05/17 00:00 40 11/05/17 00:00 67 11/04/17 23:47 100 Ventilator 11/04/17 23:43 100 40 11/04/17 22:00 92 11/04/17 20:19 100 40 11/04/17 20:00 40 11/04/17 20:00 98.7 85 16 111/98 (102) 98 11/04/17 20:00 85 11/04/17 19:00 99 Mechanical Ventilator 40 11/04/17 18:00 99 11/04/17 16:00 98.7 84 17 142/80 (100) 99 11/04/17 16:00 84 11/04/17 16:00 40 11/04/17 14:00 85 11/04/17 12:00 98.9 78 19 119/65 (83) 99 11/04/17 12:00 78 11/04/17 12:00 40 11/04/17 11:47 100 40 11/04/17 11:18 100 151/80 11/04/17 10:00 85 11/04/17 08:00 98.9 100 20 198/96 (130) 99 11/04/17 08:00 40 11/04/17 08:00 100 11/04/17 08:00 99 Mechanical Ventilator 40 11/05/17 11/05/17 11/05/17 07:00 15:00 23:00 Intake Total 1150 ml Output Total 1150 ml Balance 0 ml Result Diagram: 11/04/17 0400 11/04/17 0400 Laboratory Results Laboratory Tests Test 11/04/17 13:39 11/04/17 22:00 11/05/17 04:33 Activated Partial Thromboplast Time 32.8 SEC 32.8 SEC 33.1 SEC Administered Medications Medications (Trade) Dose Ordered Sig/Chiqui Route PRN Reason Start Time Stop Time Status Last Admin Dose Admin Amiodarone HCl (Cordarone) 200 mg DAILY PO 11/01/17 09:00 Future Hold 11/01/17 08:14 Fluoxetine HCl (PROzac) 20 mg DAILY PO 11/01/17 09:00 11/04/17 08:18 Levothyroxine Sodium (Synthroid) 50 mcg DAILY@0600 PO 11/01/17 06:00 11/05/17 04:26 Pravastatin Sodium (Pravachol) 40 mg DAILY PO 11/01/17 09:00 11/04/17 08:19 Venlafaxine HCl (Effexor Xr) 75 mg DAILY PO 11/01/17 09:00 11/04/17 08:19 Sodium Chloride (NS Flush) 2 ml BID IV FLUSH 10/31/17 21:00 11/04/17 19:59 Acetaminophen (Tylenol) 650 mg Q4H PRN PO TEMP > 100.4 10/31/17 15:30 11/01/17 19:50 Senna/Docusate Sodium (Elsa-Colace) 1 tab BID PO 10/31/17 21:00 11/04/17 19:58 Sennosides (Senokot) 17.2 mg Q12H PRN PO Moderate constipation 10/31/17 15:30 11/04/17 08:19 Insulin Aspart (NovoLOG SUPPLEMENTAL SCALE) 1 ACHS SLIDING SCALE SQ 10/31/17 17:00 11/04/17 13:43 Miscellaneous Information ([facility] Nursing Information) Patient in critical care unit? Ass... Q361D .XX 10/31/17 23:15 10/31/17 23:15 Phenylephrine HCl 40 mg/Dextrose 500 ml @ 30 mls/hr TITRATE PRN IV Blood Pressure Management 10/31/17 23:30 11/03/17 15:29 Heparin Sodium/ Dextrose 250 ml @ 10 mls/hr TITRATE PRN IV Coagulation Management 11/01/17 09:00 11/04/17 16:12 Albumin Human 50 ml @ 60 mls/hr Q12H IV 11/01/17 09:00 11/04/17 19:58 Cyanocobalamin (Vitamin B12 Inj) 1,000 mcg DAILY SQ 11/01/17 11:00 11/11/17 10:59 11/04/17 08:19 Amiodarone HCl 450 mg/Sodium Chloride 259 ml @ 33.33 mls/ hr Q7H47M PRN IV Per Protocol 11/01/17 11:00 11/05/17 03:40 Acetaminophen/ Hydrocodone Bitart ([place] 5-325 Mg) 1 tab Q4H PRN PO PAIN GREATER THAN 5 11/01/17 13:15 11/01/17 20:59 Temazepam (Restoril) 15 mg HS PRN PO INSOMNIA 11/01/17 22:00 11/01/17 22:43 Propofol 100 ml @ 0 mls/hr TITRATE PRN IV SEDATION 11/02/17 04:00 11/02/17 04:24 Fentanyl Citrate 250 ml @ 5 mls/hr TITRATE PRN IV SEDATION 11/02/17 04:15 11/04/17 16:11 Midazolam HCl (Versed Inj) 2 mg Q15M PRN IV PUSH SEDATION 11/02/17 04:15 11/04/17 05:36 Chlorhexidine Gluconate (Peridex 0.12% Liq) 15 ml BID@08,20 MT 11/02/17 08:00 11/04/17 20:00 Vasopressin 40 units/Dextrose 100 ml @ 6 mls/hr [id number] IV 11/02/17 05:23 11/02/17 05:35 Hydrocortisone Sodium Succinate (SoluCORTEF INJ) 100 mg Q8HR IV PUSH 11/02/17 05:30 11/05/17 04:26 Sodium Chloride 1,000 ml @ 100 mls/hr Q10H IV 11/02/17 10:15 11/05/17 02:03 Ceftriaxone Sodium 1000 mg/ Sodium Chloride 100 ml @ 200 mls/hr Q24H IV 11/03/17 13:00 11/04/17 13:44 Objective Remarks GENERAL: Well-nourished, well-developed patient. Sedated SKIN: Warm and dry. HEAD: Normocephalic. EYES: No scleral icterus. No injection or drainage. NECK: Supple, trachea midline. No JVD or lymphadenopathy. LYMPHATIC: No adenopathy. CARDIOVASCULAR: Regular rate and rhythm without murmurs. RESPIRATORY: Breath sounds equal bilaterally. On vent. GASTROINTESTINAL: Abdomen soft, non-tender, slightly distended. EXTREMITIES: No cyanosis, or edema. MUSCULOSKELETAL: Adequate muscle tone. NEUROLOGICAL: No obvious focal deficit. Sedated, Open eyes to command Assessment/Plan Problem List: (1) Cancer, colon ICD Codes: C18.9 - Malignant neoplasm of colon, unspecified Status: Acute (2) Sepsis due to Gram-negative organism with septic shock ICD Codes: A41.50 - Gram-negative sepsis, unspecified; R65.21 - Severe sepsis with septic shock Status: Resolved (3) Pulmonary emboli ICD Codes: I26.99 - Other pulmonary embolism without acute cor pulmonale Status: Chronic Assessment 1. Septic shock due to urinary tract infection/pyelonephritis. She started having left back pain and increased weakness on . She had fever up to 103.4 when she came to the hospital. Blood culture grew E.Coli which is pansensitive. 2. Leukocytosis due to urinary tract infection. She has 28% bandemia. Improving with abx. 3. History of sigmoid colon adenocarcinoma, status post resection. Pathologic stage [id number]. She has high risk colon cancer. She completed adjuvant Xeloda 08/2016. Recent CT showed widespread sclerotic bone lesions; however, bone scan did not show any uptake. She has no significant bone pain. The lesion was too small for biopsy. She could not complete the PET/CT last week due to weakness. She will need a PET scan once discharged from the hospital for further evaluation. 4. History of pulmonary embolism developed when she was admitted to the hospital last year with sepsis. She was on Xarelto. Her V/Q scan showed low probability for pulmonary embolism. She is now on heparin due to acute renal failure. 5. Acute renal failure likely due to ATN secondary to septic shock. 6. Anemia due to the sepsis and renal failure. She also had mild thrombocytopenia. She likely has a low-grade consumptive process. Platelet trended back up to normal. Hgb stable, no bleeding noted. Plan PLAN: 1. Discussed with the patient's . 2. Continue antibiotic per primary team. 3. Continue heparin. 4. Outpatient PET scan. Sly Candelario MD November 05, 2017 07:59
[2017-11-05] MEDS: PROPOFOL 1000 MG/100 ML INJ 100 ML IV PRN (08:34)
[2017-11-05] MEDS: FLUoxetine HCL 20 MG CAP PO SCH (08:39)
[2017-11-05] MEDS: VENLAFAXINE HCL XR 75 MG CAP PO SCH (08:39)
[2017-11-05] MEDS: PRAVASTATIN SOD 40 MG TAB PO SCH (08:39)
[2017-11-05] MEDS: DOCUSATE SODIUM 50 MG/SENNA 8.6 MG TAB PO SCH ×2 (08:39→19:59)
[2017-11-05] MEDS: ALBUMIN 25% INJ 50 ML IV SCH ×2 (08:39→21:00)
[2017-11-05] MEDS: CYANOCOBALAMIN 1000 MCG/ML VIAL SQ SCH (08:39)
[2017-11-05] MEDS: SODIUM CHLORIDE 0.9% FLUSH 10 ML FLUSH IV FLUSH SCH ×2 (08:40→19:59)
[2017-11-05] MEDS: CHLORHEXIDINE 0.12% (ORAL KIT) 15 ML CUP MT SCH ×2 (08:40→19:59)
--- NOTE | 2017-11-05 09:27 | PD.ID.CON ---
History of Present Illness Service Infectious Disease Consult Requested By Dr. Fernando Srinivasan Reason for Consult Evaluation and Mment of Sepsis, E.coli bacteremia and E.coli pyelonephritis. Primary Care Physician Unknown Diagnoses: History of Present Illness Ms. Marroquin is a 72-year-old female with past medical history significant for colon cancer with reported history of spots on her vertebrae. Patient's spouse reports that she was scheduled to have a PET scan but could not complete it as she was extremely weak. Dr. Vargas is her oncologist and is following her. Her past medical history is also significant for hypertension hyperlipidemia, atrial fibrillation status post previous ablation, type 2 diabetes. With this background patient presents to the emergency department with generalized weakness as well as hypotensive upon arrival. She was diagnosed with possible UTI sepsis. She received 4 L of IV fluids in the emergency room and her blood pressure improved to 690s systolic. But she continued to be in atrial fibrillation with heart rate in 130s. She had a negligible urine output despite 4 L IV fluids and elevated lactic acid remains a concern. Sepsis workup was initiated and patient was started on empiric IV antibiotics for presumed UTI related sepsis. Per review of records it appears that patient reportedly did not eat or drink for 30 hours prior to admission and was having burning with urination approximately 2 days prior to admission. CT of the head was done which was unremarkable a CT of the abdomen pelvis showed moderate hydronephrosis as well as several spots as mentioned in the report concerning for malignancy related metastases. Oncology Dr. Vargas is following the patient. A VQ scan was done which showed low probability of PE. Blood cultures done on admission are positive for E. coli as well as her urine culture was also positive for E. coli. Patient has been treated with ceftriaxone and has been clinically improved. Repeat blood cultures are negative so far. Urology has seen the patient and there is no plan for placement of stent. This appears to be hydronephrosis with stranding around the kidney suggestive of pyelonephritis. Infectious diseases consulted for evaluation and management of sepsis, E. coli bacteremia and E. coli pyelonephritis. Review of Systems ROS Limitations: Intubated Past Family Social History Allergies: Coded Allergies: Sulfa (Sulfonamide Antibiotics) (Verified Allergy, Severe, 10/31/17) codeine (Verified Allergy, Severe, Nausea/Vomiting, 10/31/17) Uncoded Allergies: METAL (Allergy, Intermediate, hives, 03/08/16) SURGICAL STEEL (Allergy, Intermediate, hives, 03/08/16) Past Medical History Colon cancer: Diagnosed 2015 Diabetes Type 2 - on insulin Hypertension Hyperlipidemia Cardiac = prior heart attack? 2D echo (03/16/17) with LVEF 50-55%, moderate mitral stenosis, [id number] aortic stenosis, pulmonary hypertension Atrial fibrillation Depression Hypothyroidism CVA 2014 PE 03/2017 Pyelo/PNA 03/2017 requiring intubation Past Surgical History C/S x2 hernia operation 1999 "emergency abdominal surgery" when taking fertility drugs 1986 Reported Medications Reported Meds & Active Scripts Active Temazepam 15 Mg Cap 15 Mg PO HS PRN Lasix (Furosemide) 20 Mg Tab 20 Mg PO DAILY Hydroxyzine HCl 25 Mg Tab 25 Mg PO QID PRN Pravachol (Pravastatin) 40 Mg Tab 40 Mg PO DAILY 30 Days Xarelto (Rivaroxaban) 20 Mg Tab 20 Mg PO DAILY Gabapentin 100 Mg Cap 100 Mg PO HS 30 Days Amiodarone (Amiodarone HCl) 200 Mg Tab 200 Mg PO DAILY 30 Days Fluoxetine (Fluoxetine HCl) 20 Mg Capsule 20 Mg PO DAILY 30 Days Adult Aspirin EC Low Strength (Aspirin) 81 Mg Tabec 162 Mg PO DAILY 30 Days Cardizem CD 24 HR (Diltiazem CD 24 HR) 240 Mg Caper 240 Mg PO DAILY 30 Days Levothyroxine (Levothyroxine Sodium) 50 Mcg Tab 50 Mcg PO DAILY 30 Days Wheelchair (Device) 1 Mis Mis Ea .ROUTE DIRECTED Commode 3-in-1 (Device) 1 Mis Mis Ea .ROUTE DIRECTED Walker Rolling/GetGo (Device) 1 Mis Mis Ea .ROUTE DIRECTED Reported [Novalog] Ditropan (Oxybutynin Chloride) 5 Mg Tab 5 Mg PO Q8HR Venlafaxine ER 24 HR (Venlafaxine HCl) 75 Mg Cap 75 Mg PO DAILY Metformin HCl ER (Metformin HCl) 1,000 Mg [id number] Lantus Inj (Insulin Glargine) 1,000 Unit/10 Ml Vial 10 Units SQ HS Captopril 12.5 Mg Tab 12.5 Mg PO BIDAC Take 1 hour before meals. Bumetanide 1 Mg Tab 1 Mg PO DAILY Active Ordered Medications Current Medications Medications (Trade) Dose Ordered Sig/Chiqui Route Start Time Stop Time Status Last Admin (Cordarone) 200 mg DAILY PO 11/01/17 09:00 Future Hold 11/01/17 08:14 (PROzac) 20 mg DAILY PO 11/01/17 09:00 11/05/17 08:39 (Synthroid) 50 mcg DAILY@0600 PO 11/01/17 06:00 11/05/17 04:26 (Pravachol) 40 mg DAILY PO 11/01/17 09:00 11/05/17 08:39 (Xarelto) 20 mg DAILY PO 11/01/17 09:00 Future Hold (Effexor Xr) 75 mg DAILY PO 11/01/17 09:00 11/05/17 08:39 (NS Flush) 2 ml UNSCH PRN IV FLUSH 10/31/17 15:30 (NS Flush) 2 ml BID IV FLUSH 10/31/17 21:00 11/05/17 08:40 (Tylenol) 650 mg Q4H PRN PO 10/31/17 15:30 11/01/17 19:50 (Narcan Inj) 0.4 mg UNSCH PRN IV PUSH 10/31/17 15:30 (Elsa-Colace) 1 tab BID PO 10/31/17 21:00 11/05/17 08:39 (Milk Of Magnesia Liq) 30 ml Q12H PRN PO 10/31/17 15:30 (Senokot) 17.2 mg Q12H PRN PO 10/31/17 15:30 11/04/17 08:19 (Dulcolax Supp) 10 mg DAILY PRN RECTAL 10/31/17 15:30 (Lactulose Liq) 30 ml DAILY PRN PO 10/31/17 15:30 11/05/17 08:39 (D50w (Vial) Inj) 50 ml UNSCH PRN IV PUSH 10/31/17 15:30 (Glucagon Inj) 1 mg UNSCH PRN OTHER 10/31/17 15:30 (NovoLOG SUPPLEMENTAL SCALE) 1 ACHS SLIDING SCALE SQ 10/31/17 17:00 11/04/17 13:43 (Catapres) 0.1 mg Q6H PRN PO 10/31/17 15:30 (Zofran Odt) 4 mg Q6H PRN PO 10/31/17 15:30 Acetaminophen 100 ml @ 400 mls/hr Q6H PRN IV 10/31/17 17:15 (Misc Nursing Information) Patient in critical care unit? Ass... Q361D .XX 10/31/17 23:15 10/31/17 23:15 (Chlorhexidine 2% Cloth) 3 pack UNSCH PRN TOPICAL 10/31/17 23:15 11/05/17 23:12 Phenylephrine HCl 40 mg/Dextrose 500 ml @ 30 mls/hr TITRATE PRN IV 10/31/17 23:30 11/03/17 15:29 (Brethine Inj) 1 mg UNSCH PRN SQ 10/31/17 23:30 Heparin Sodium/ Dextrose 250 ml @ 10 mls/hr TITRATE PRN IV 11/01/17 09:00 11/04/17 16:12 Albumin Human 50 ml @ 60 mls/hr Q12H IV 11/01/17 09:00 11/05/17 08:39 (Vitamin B12 Inj) 1,000 mcg DAILY SQ 11/01/17 11:00 11/11/17 10:59 11/05/17 08:39 Amiodarone HCl 450 mg/Sodium Chloride 259 ml @ 33.33 mls/ hr Q7H47M PRN IV 11/01/17 11:00 11/05/17 03:40 ([place] 5-325 Mg) 1 tab Q4H PRN PO 11/01/17 13:15 11/01/17 20:59 (Pyridium) 100 mg Q8H PRN PO 11/01/17 13:45 (Restoril) 15 mg HS PRN PO 11/01/17 22:00 11/01/17 22:43 Propofol 100 ml @ 0 mls/hr TITRATE PRN IV 11/02/17 04:00 11/05/17 08:34 Fentanyl Citrate 250 ml @ 5 mls/hr TITRATE PRN IV 11/02/17 04:15 11/04/17 16:11 (Versed Inj) 2 mg Q15M PRN IV PUSH 11/02/17 04:15 11/04/17 05:36 (Peridex 0.12% Liq) 15 ml BID@08,20 MT 11/02/17 08:00 11/05/17 08:40 Vasopressin 40 units/Dextrose 100 ml @ 6 mls/hr [id number] IV 11/02/17 05:23 11/02/17 05:35 (SoluCORTEF INJ) 100 mg Q8HR IV PUSH 11/02/17 05:30 11/05/17 04:26 Sodium Chloride 1,000 ml @ 100 mls/hr Q10H IV 11/02/17 10:15 11/05/17 02:03 Ceftriaxone Sodium 1000 mg/ Sodium Chloride 100 ml @ 200 mls/hr Q24H IV 11/03/17 13:00 11/04/17 13:44 Family History could not be obtained. Social History in room. No Alcohol, no smoking, no illicit drugs. Physical Exam Vital Signs Vital Signs Date Time Temp Pulse Resp B/P (MAP) Pulse Ox O2 Delivery O2 Flow Rate FiO2 11/05/17 07:26 100 40 11/05/17 06:00 65 11/05/17 04:00 40 11/05/17 04:00 98.6 69 18 142/78 (99) 99 11/05/17 04:00 69 11/05/17 03:40 101 189/97 11/05/17 03:01 100 40 11/05/17 02:00 58 11/05/17 00:01 67 137/80 11/05/17 00:00 98.6 67 18 137/80 (99) 99 11/05/17 00:00 40 11/05/17 00:00 67 11/04/17 23:47 100 Ventilator 11/04/17 23:43 100 40 11/04/17 22:00 92 11/04/17 20:19 100 40 11/04/17 20:00 40 11/04/17 20:00 98.7 85 16 111/98 (102) 98 11/04/17 20:00 85 11/04/17 19:00 99 Mechanical Ventilator 40 11/04/17 18:00 99 11/04/17 16:00 98.7 84 17 142/80 (100) 99 11/04/17 16:00 84 11/04/17 16:00 40 11/04/17 14:00 85 11/04/17 12:00 98.9 78 19 119/65 (83) 99 11/04/17 12:00 78 11/04/17 12:00 40 11/04/17 11:47 100 40 11/04/17 11:18 100 151/80 11/04/17 10:00 85 Physical Exam GENERAL: This is a well-nourished, well-developed patient, in no apparent distress. SKIN: Areas of Ecchymosis. HEAD: Atraumatic. Normocephalic. No temporal or scalp tenderness. EYES: Pupils equal round and reactive. Extraocular motions intact. No scleral icterus. No injection or drainage. ENT: Intubated. NECK: Trachea midline. Supple, nontender, no meningeal signs. CARDIOVASCULAR: HS audible. No murmur. RESPIRATORY: Clear to auscultation. Breath sounds decreased in the bases. GASTROINTESTINAL: Abdomen soft, mildly distended. Non tender. MUSCULOSKELETAL: Extremities without clubbing, cyanosis, or edema. No joint tenderness, effusion, or edema noted. NEUROLOGICAL: Sedated Psych cooperative Port site with no e.o infection. IV line sites with no e.o infection. Laboratory Laboratory Tests Test 11/04/17 13:39 11/04/17 22:00 11/05/17 04:33 11/05/17 08:47 Activated Partial Thromboplast Time 32.8 32.8 33.1 Date/Time Source Procedure Growth Status 11/02/17 04:23 Blood Peripheral Aerobic Blood Culture - Preliminary NO GROWTH IN 2 DAYS Resulted 11/02/17 04:23 Blood Peripheral Anaerobic Blood Culture - Preliminary NO GROWTH IN 2 DAYS Resulted 11/01/17 20:00 Stool Stool Stool Occult Blood (NANI) - Final HEMOCCULT NEGATIVE Complete 10/31/17 13:30 Urine Clean Catch Urine Culture - Final Escherichia Coli Complete Result Diagram: 11/04/17 0400 11/04/17 0400 Imaging Last Impressions Abdomen X-Ray 11/04/17 0000 Signed Impressions: Service Date/Time: Saturday, November 04, 2017 17:50 - CONCLUSION: Nonspecific intestinal gas pattern Jose Wright MD Chest X-Ray 11/03/17 0600 Signed Impressions: Service Date/Time: Friday, November 03, 2017 04:01 - CONCLUSION: No significant change. Robe Menchaca MD Head CT 10/31/17 1321 Signed Impressions: Service Date/Time: October 14:02 - CONCLUSION: 1. No acute intracranial findings. Left sphenoid sinusitis. Remote lacunar infarct right frontal white matter. Samuel Lin MD Abdomen/Pelvis CT 10/31/17 1321 Signed Impressions: Service Date/Time: October 13:58 - CONCLUSION: 1. Development of innumerable small sclerotic lesions in the skeleton most characteristic of sclerotic bony metastatic disease. There is a reported history of malignancy. 2. Hepatomegaly with development of mild ascites. 3. Persistent moderate hydronephrosis with perinephric stranding similar to February 2017. Interval development of mild anasarca. 4. Gallbladder sludge. Gallo catheter in bladder. Samuel Lin MD Lung Scan-V Nuclear Medicine 10/31/17 0000 Signed Impressions: Service Date/Time: October 15:00 - CONCLUSION: Low probability scan for pulmonary embolism Jose Wright MD Assessment and Plan Assessment and Plan Severe sepsis present on admission E. coli pyelonephritis with hydronephrosis with no evidence of obstruction per urology notes. He did urinary tract infection. No plans for stent placement. E. coli bacteremia appears to be transient and related to the E. coli pyelonephritis. Possible aspiration pneumonia on admission Acute metabolic encephalopathy likely secondary to sepsis, acute renal failure. Acute renal failure on admission: prerenal, sepsis. Abnormal LFTs: ? sepsis related. Leucocytosis Ileus early: abd distention. Colon cancer with suspected mets. Recs: Continue Ceftriaxone increase dose to 2 gm IV for bacteremia. Follow cultures Follow clinically. Sputum cultures and gram stain dw [facility] dw RN dw patients spouse: thankful of care provided. Brittani Srinivasan MD November 05, 2017 09:27
[2017-11-05 10:24] LABS: ALBUMIN 2.5 GM/DL (3.4-5.0); CALCIUM 6.9 MG/DL (8.5-10.1); CREATININE 2.84 MG/DL (0.50-1.00); TOTAL PROTEIN 6.8 GM/DL (6.4-8.2)
[2017-11-05 10:25] LABS: MAGNESIUM 2.6 MG/DL (1.5-2.5); TOTAL BILIRUBIN ADULT 1.4 MG/DL (0.2-1.0)
[2017-11-05 10:28] LABS: CALCIUM-PROTEIN CORRECTED 7.1 MG/DL (8.5-10.1)
--- NOTE | 2017-11-05 10:42 | HHI.CCPN ---
Subjective Remarks/Hospital Course 72-year-old female with a medical history significant for colon cancer, hypertension, hyperlipidemia, atrial fibrillation status post previous ablation , type 2 diabetes mellitus who presented to the ER with generalized weakness and was hypotensive on arrival. She was diagnosed to have a UTI/sepsis. She received 4 L fluids in the ER with systolic blood pressure coming up to the 90s however was tachycardic with heart rate going up to 130s atrial fibrillation. She had a negligible urine output despite 4 L IV fluids and an elevated lactic acid with concern for severe sepsis and acute kidney injury. Patient was admitted by family medicine service and critical care consult was requested by ER physician. I evaluated the patient in the ER. At that time she was on 2 L nasal cannula maintaining O2 sats around 98%. Her systolic blood pressure was in the mid 90 range. She was in atrial fibrillation with heart rate ranging from 110-120s. Patient was awake and alert at the time of my evaluation and was following commands appropriately. She denied any worsening shortness of breath or chest pain at the time. She did have some abdominal discomfort. She appeared slightly tachypneic. She had already received empiric antibiotic coverage. History was obtained by discussion with , ER physician, family medicine residents and review of records. Patient has reportedly not had anything to eat or drink for 30 hours prior to admission. She has been having burning with urination over the past 2 days. Patient had a head CT which was unremarkable, CT abdomen pelvis revealed moderate hydronephrosis, VQ scan was low probability for PE. 11/01: Patient appears critical, tachypneic. Urine output marginal 200 mL overnight shift time. Blood cultures 4 out of 4 bottles positive for gram- negative rods. Currently on 40 mcg/min of Raymond-Synephrine. Remaisn in A fib with RVR. Will start Amiodarone gtt, attempt rate control/cardioverted. Previous echo done last year shows EF 55-60%, moderate mitral stenosis, mild to moderate aortic stenosis, moderate TR, also will hold Xarelto start IV heparin 11/02: Patient remains very critically ill and septic shock now in respiratory failure. Overnight required intubation for tachypnea and respiratory distress. Received a dose of tobramycin Sensitivities are pending for E. coli. White count has dropped to 2.1 creatinine is 2.12 today. Will discontinue Zosyn and start renally dosed meropenem. Remains on amiodarone infusion heart rate slightly better controlled. Raymond-Synephrine just weaned off, but currently patient is hypotensive with maps 61 11/03: Remains very critical. Failed CPAP trials. Off pressors but urine output is decreasing creatinine has increased BUN 59/creatinine 3.36. WBC count elevated to 20.3 with a 22% bands. E. coli is pansensitive DC meropenem and start Rocephin. 11/04: Remains sedated, orally intubated on mechanical ventilation. On Levophed 2 mics per minute for hypotension. Failed CPAP trial yesterday. 11/05: Arousable off sedation. On mechanical ventilation. Daily CPAP trials ongoing. Objective Vital Signs Date Time Temp Pulse Resp B/P (MAP) Pulse Ox O2 Delivery O2 Flow Rate FiO2 11/05/17 09:37 100 40 11/05/17 08:00 98.8 70 18 143/76 (98) 11/05/17 07:00 Mechanical Ventilator 11/02/17 00:25 4.00 Intake and Output 11/05/17 11/05/17 11/05/17 07:59 15:59 23:59 Intake Total 1150 ml Output Total 1150 ml Balance 0 ml Result Diagram: 11/04/17 0400 11/05/17 0847 Imaging Last 48 hours Impressions Chest X-Ray 11/03/17 0600 Signed Impressions: Service Date/Time: Friday, November 03, 2017 04:01 - CONCLUSION: No significant change. Robe Menchaca MD Last Impressions Head CT 10/31/17 1321 Signed Impressions: Service Date/Time: October 14:02 - CONCLUSION: 1. No acute intracranial findings. Left sphenoid sinusitis. Remote lacunar infarct right frontal white matter. Samuel Lin MD Abdomen/Pelvis CT 10/31/17 1321 Signed Impressions: Service Date/Time: October 13:58 - CONCLUSION: 1. Development of innumerable small sclerotic lesions in the skeleton most characteristic of sclerotic bony metastatic disease. There is a reported history of malignancy. 2. Hepatomegaly with development of mild ascites. 3. Persistent moderate hydronephrosis with perinephric stranding similar to February 2017. Interval development of mild anasarca. 4. Gallbladder sludge. Gallo catheter in bladder. Samuel Lin MD Lung Scan-VQ Nuclear Medicine 10/31/17 0000 Signed Impressions: Service Date/Time: October 15:00 - CONCLUSION: Low probability scan for pulmonary embolism Jose Wright MD Chest X-Ray 10/31/17 0000 Signed Impressions: Service Date/Time: October 12:24 - CONCLUSION: No acute disease. Heart size appears enlarged. Jose Pablo MD Objective Remarks Gen: 72-year-old critically ill female who is intubated sedated HEENT: No pallor or icterus, orotracheally intubated Neck: No JVD Chest/pulmonary: Air entry equal bilaterally, tachypneic diminished at the bases with fine crackles Cardiovascular: Converted to sinus rhythm now, no gallop or murmur. Remains on amiodarone GI/abdomen: Soft, vague tenderness, bowel sounds present Extremities: Warm bilaterally, trace edema Neuro: Intubated sedated anxious on sedation hold follows commands moves extremities. No focal deficit A/P Assessment and Plan 72-year-old female with: ASSESSMENT: Severe sepsis E Coli bacteremia Acute respiratory failure Worsening acute kidney failure/ATN Atrial fibrillation with RVR, now NSR UTI with E. coli Lactic acidosis Moderate hydronephrosis Chronic atrial fibrillation Moderate mitral stenosis, mild to moderate aortic stenosis, moderate tricuspid regurgitation Colon cancer with suspected metastatic disease Vitamin B12 deficiency Diabetes Type 2 - on insulin h/o Hypertension Hyperlipidemia Depression Hypothyroidism h/o CVA h/o PE (03/2017) h/o Pyelo/PNA (03/2017 requiring intubation) PLAN: Neuro: -Continue propofol for sedation and vent synchrony -Daily sedation vacation as tolerated Cardiovascular: -Status post 4 L crystalloid bolus, currently on normal saline at 50 mL/h -Due to oliguria give 500 mL bolus now and increase maintenance 200 mL/h -Continue IV amiodarone since 11/01. Transition to p.o. amiodarone again in 24 hours if patient remains in sinus rhythm -IV digoxin as needed -Raymond-Synephrine GTT to keep map above 65. Now weaned off -Holding Xarelto for anticoagulation, Continue IV heparin -Need rate control due to moderate mitral stenosis and mild to moderate aortic stenosis, currently NSR Pulmonary: -Intubated 11/01/17 for acute respiratory failure -Vent bundle, DuoNeb every 6 hours and as needed -Daily CPAP trials and if tolerated will decide extubation GI/liver: -Pepcid for GI prophylaxis. tube feeds with Nepro Renal/: -Gallo catheter. Strict intake output, monitor and replete electrolytes, follow BUN/creatinine. -Nephrology following. Patient is oliguric with worsening creatinine -No emergency indication for dialysis but may need dialysis soon -Urology consulted in the setting of moderate hydronephrosis with renal failure , did not recommend stent placement ID: -Patient received IV vancomycin and Zosyn and Rocephin in the ER. -Meropenem changed to Rocephin 11/03/2017 as the E. coli is pansensitive -1 dose of tobramycin given overnight on 11/01 -Blood and urine culture pansensitive E. coli -ID consult requested Heme-onc: -Dr. Sly Candelario consulted for history of colon cancer in suspected metastatic lesions on CT abdomen pelvis. -Need PET scan when stable Endocrine: -SSI for glycemic control. -Vitamin B12 level is low.vitamin B12 injections 1000 mcg IM daily for 10 days then monthly Prophylaxis: -Pepcid/SCDs. Hold Xarelto, continue IV heparin Access: -Has peripheral IVs and port. Central line if needed Patient's condition is very critical with multiorgan dysfunction, worsening respiratory failure, now intubated and renal failure along with severe sepsis. Renal failure is getting worse patient may need renal replacement therapy Discussed current clinical status with patient's at bedside including plan of care and he voiced understanding and was agreeable. Time spent on critical care excluding procedures 35 minutes Fernando Srinivasan MD November 05, 2017 10:42
[2017-11-05] MEDS ORDERED: LABETALOL HCL 100 MG/20 ML VIAL IV PUSH ONE (10:45)
--- NOTE | 2017-11-05 11:01 | HHI.FPPN ---
Subjective Remarks Mrs. Marroquin was afebrile with intermittent HTN overnight. Patient currently on mechanical ventilation/sedation. Patient with improvement in urine output overnight; 2400ml overnight per EMR. Per discussion with nursing staff at bedside, patient has planned CPAP trials later today; Propofol and Fentanyl sedation will be continued due to patient fighting with ventilator some. Patient also will be given Lactulose due to lack of BM for several days. Patient's is at bedside; he states that patient did well overnight. (Oscar Santos MD R3) Objective Vitals Vital Signs Date Time Temp Pulse Resp B/P (MAP) Pulse Ox O2 Delivery O2 Flow Rate FiO2 11/05/17 09:37 100 40 11/05/17 09:37 40 11/05/17 08:00 98.8 70 18 143/76 (98) 100 11/05/17 08:00 70 11/05/17 08:00 40 11/05/17 07:26 100 40 11/05/17 07:00 100 Mechanical Ventilator 40 11/05/17 06:00 65 11/05/17 04:00 40 11/05/17 04:00 98.6 69 18 142/78 (99) 99 11/05/17 04:00 69 11/05/17 03:40 101 189/97 11/05/17 03:01 100 40 11/05/17 02:00 58 11/05/17 00:01 67 137/80 11/05/17 00:00 98.6 67 18 137/80 (99) 99 11/05/17 00:00 40 11/05/17 00:00 67 11/04/17 23:47 100 Ventilator 11/04/17 23:43 100 40 11/04/17 22:00 92 11/04/17 20:19 100 40 11/04/17 20:00 40 11/04/17 20:00 98.7 85 16 111/98 (102) 98 11/04/17 20:00 85 11/04/17 19:00 99 Mechanical Ventilator 40 11/04/17 18:00 99 11/04/17 16:00 98.7 84 17 142/80 (100) 99 11/04/17 16:00 84 11/04/17 16:00 40 11/04/17 14:00 85 11/04/17 12:00 98.9 78 19 119/65 (83) 99 11/04/17 12:00 78 11/04/17 12:00 40 11/04/17 11:47 100 40 11/04/17 11:18 100 151/80 I/O 11/04/17 11/04/17 11/04/17 11/05/17 11/05/17 11/05/17 07:00 15:00 23:00 07:00 15:00 23:00 Intake Total 1700 ml 410 ml 1150 ml Output Total 550 ml 1250 ml 1150 ml Balance 1150 ml -840 ml 0 ml IV Total 1600 ml 270 ml 1000 ml Tube Feeding 100 ml 140 ml Other 150 ml Output Urine Total 550 ml 1250 ml 1150 ml (Oscar Santos MD R3) Result Diagram: 11/04/17 0400 11/05/17 0847 Imaging Last Impressions Abdomen X-Ray 11/04/17 0000 Signed Impressions: Service Date/Time: Saturday, November 04, 2017 17:50 - CONCLUSION: Nonspecific intestinal gas pattern Jose Wright MD Chest X-Ray 11/03/17 0600 Signed Impressions: Service Date/Time: Friday, November 03, 2017 04:01 - CONCLUSION: No significant change. Robe Menchaca MD Head CT 10/31/17 1321 Signed Impressions: Service Date/Time: October 14:02 - CONCLUSION: 1. No acute intracranial findings. Left sphenoid sinusitis. Remote lacunar infarct right frontal white matter. Samuel Lin MD Abdomen/Pelvis CT 10/31/17 1321 Signed Impressions: Service Date/Time: October 13:58 - CONCLUSION: 1. Development of innumerable small sclerotic lesions in the skeleton most characteristic of sclerotic bony metastatic disease. There is a reported history of malignancy. 2. Hepatomegaly with development of mild ascites. 3. Persistent moderate hydronephrosis with perinephric stranding similar to February 2017. Interval development of mild anasarca. 4. Gallbladder sludge. Jacobsen catheter in bladder. Samuel Lin MD Lung Scan-V Nuclear Medicine 10/31/17 0000 Signed Impressions: Service Date/Time: October 15:00 - CONCLUSION: Low probability scan for pulmonary embolism Jose Wright MD Objective Remarks GENERAL: This is a well-nourished, well-developed patient, on ventilator and sedation. SKIN: No rashes, ecchymoses or lesions. Cool and dry. EYES: No conjunctival injection. Patient sedated and EOM's not assessed ENT: OG in place. Nose without bleeding or purulent drainage. Airway patent. NECK: Trachea midline. CARDIOVASCULAR: Normal rate and rhythm. Normal distal LE perfusion bilaterally RESPIRATORY: Ventilator PRVC A/C PEEP 5, FiO2 40. no asymmetry to auscultation GASTROINTESTINAL: Abdomen soft, distended. Normal bowel sounds. OG tube in place MUSCULOSKELETAL: Extremities without clubbing, cyanosis, or edema. NEUROLOGICAL: Sedated w/ Fentanyl, some hand movements but not responsive to questions; non-agitated (Oscar Santos MD R3) A/P Assessment and Plan Patient is a 72-year-old admitted due to septic shock from urinary source; patient also with sclerotic bony lesions concerning for colon cancer metastasis. Due to respiratory decline/multiorgan failure, patient on ventilator since . Critical care, Nephrology, and infectious disease consulted Discharge Planning Prognosis unclear at this time Patient remains on ventilator Critical Care managing at this time, appreciate care of patient Notably asserts patient is full code (Oscar Santos MD R3) Attending Attestation Patient seen and examined. Discussed with Dr. Santos. Agree with assessment and plan as documented. (Prevatte,Kin Phelps Jr., MD) Problem List: (1) Sepsis ICD Codes: A41.9 - Sepsis, unspecified organism Status: Acute Plan: Impression: Septic shock on admission; labs suggestive of multiorgan dysfunction. Patient with low MAP despite 4 L IVF Patient placed on Phenylephrine. Patient developed respiratory failure and required intubation Labs: Cr: 2.10 (10/31)-> 3.53 (11/04) -> 2.84 (11/05) WBC: 15.8 (10/31)-> 2.1 (11/02)-> 20.3 (11/03) -> 17.7 (11/04) -> pending 11/05 Lactic acid: 3 (10/31) -> 3.3 (11/02) 11/04- stable blood pressures and vital signs -Critical care consulted -Continue antibiotic therapy -Infectious disease consulted -Rocephin increased to 2gm daily -Nephrology consulted -Continue to monitor CBC, BMP, urine output -Continue to monitor VS; pressors discontinued and intermittent HTN Antibiotic history: s/p Meropenem 2gm q12hrs IV -s/p Zosyn 2.5mg q6hrs (10/31-11/02) -s/p Tobramycin IV x1 11/02 Cultures: -Sputum culture 11/05 10/31- blood x2- taylor sensitive E Coli 10/31- urine- taylor sensitive E coli 11/02- blood x2- negative x48 hrs (2) Respiratory failure, acute ICD Codes: J96.00 - Acute respiratory failure, unspecified whether with hypoxia or hypercapnia Status: Acute Plan: Impression: Patient intubated 11/02 for tachypnea and respiratory distress ; ABG 11/02 with pH 7.18, CO2 52. 11/03- failed CPAP trials. CXR with persistent hazy opacities at bases 11/04- Remains on ventilator, sedated. 11/05- Plan for CPAP trials today -Continue management per Critical care -Ventilator bundle, Duonebs q6hrs as needed -Continue sedation -Continue Hydrocortisone 100mg IV q8hrs -CPAP trials (3) ASH (acute kidney injury) ICD Codes: N17.9 - Acute kidney failure, unspecified Status: Acute Plan: 11/05: Cr improved Cr 2.84. 2400ml urine output overnight Impression: renal injury presumed secondary to septic shock/multiorgan dysfunction Cr- 2.12 on admission-> 2.59 (11/02) -> 3.53 (11/04) -> 2.[address] abdomen/pelvis- moderate hydronephrosis w/ perinephric stranding similar to . Interval development of mild anasarca. -Continue to monitor urine output w/ jacobsen -Nephrology consulted -Continue IVF (100ml/hr NS, Albumin), antibiotics -Continue to monitor urine output/BMP -Ca replacement -Will consider HD if worsening -Urology consulted for hydronephrosis -Continue Jacobsen, antibiotics -Do not suspect obstruction; do not recommend stent placement -Recommend renal US next week (4) UTI (urinary tract infection) ICD Codes: N39.0 - Urinary tract infection, site not specified Plan: Impression: UA with large leukocyte esterase, innumerable WBCs, many WBC clumps Urine culture and blood cultures 10/31 with pansensitive E Coli -Management as above for sepsis (5) Atrial fibrillation ICD Codes: I48.91 - Unspecified atrial fibrillation Status: Chronic Plan: Impression: patient placed on amiodarone drip and given digoxin for afib with RVR on admission. Patient currently with normal rate/sinus rhythm. Patient with reported history of moderate mitral stenosis and mild/moderate aortic stenosis Echocardiogram- moderate concentric LVF. EF 70%. Aortic sclerosis present. Moderate /severe pulmonary HTN (60-70mmHg) Initially placed on heparin drip-> PO Amiodarone; currently on hold with sinus rhythm -Continue telemetry/monitoring VS -Continue IV heparin -Continue amiodarone as needed. (6) Aphasia ICD Codes: R47.01 - Aphasia Status: Acute Plan: Impression: Pt with difficulty finding words, nonsensical language on admission. history of TIA. Suspected secondary to sepsis CT head on admission w/o acute findings. 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 [id number]. s/p Zeloda 08/2016. Abdomen/Pelvis CT 10/31/17: Innumerable small sclerotic lesions in the skeleton, most characteristic of sclerotic bony metastatic disease -Dr. Candelario consulted -recent bone scan w/o uptake; reassuring regarding sclerotic lesions -plan for PET as outpatient -Continue heparin, treatment for sepsis (8) Weakness ICD Codes: R53.1 - Weakness Status: Acute Plan: -PT consulted; will evaluate once extubated/improving (9) Diabetes mellitus, type II ICD Codes: E11.9 - Type 2 diabetes mellitus Status: Chronic Plan: Will hold home medications -Low dose SSI, per Critical Care protocol -Continue to monitor blood sugar (10) Hypertension ICD Codes: I10 - Essential (primary) hypertension Status: Chronic Plan: Impression: PMH HTN. Initial hypotension on admission w/ septic shock. Now intermittent hypertension based on agitation/sedation -Continue to monitor; management per CC -Labetalol added for intermittent hypertensive urgency per CC (11) Hypothyroidism ICD Codes: E03.9 - Hypothyroidism Status: Chronic Plan: Continue home Levothyroxine (12) FEN/PPX Plan: Fluid: Fluid per psychological operations specialist -100ml/hr NS -Albumin 25% q12 hrs Electrolytes: Continue to monitor; replacement Nutrition: Diabetic diet DVT PPX: Per CC, on heparin gtt at this time (Oscar Santos MD R3) Problem Qualifiers (1) Sepsis: Qualified Codes: A41.9 - Sepsis, unspecified organism (2) UTI (urinary tract infection): (3) Atrial fibrillation: Qualified Codes: I48.2 - Chronic atrial fibrillation (4) Hypertension: Qualified Codes: I10 - Essential (primary) hypertension Oscar Santos MD R3 November 05, 2017 11:01 Kin Ojeda Jr., MD November 05, 2017 14:09
[2017-11-05] MEDS: cefTRIAXone INJ 2,000 MG in SODIUM CHLORIDE 0.9% INJ 100 ML IV SCH (12:25)
[2017-11-05] MEDS: HEPARIN-D5W 25,000 U/250 ML 250 ML IV PRN (13:35)
[2017-11-05] MEDS ORDERED: SODIUM CHLOR 0.9% 1000 ML INJ 1,000 ML IV SCH (15:00)
[2017-11-05] MEDS: LABETALOL HCL 100 MG/20 ML VIAL IV PUSH PRN ×2 (16:09→19:58)
--- NOTE | 2017-11-05 16:15 | HHI.NPPN ---
Subjective General Problems: Anemia, Edema, Hypotension, Mebatolic Acidosis Renal Failure: Acute History of Present Illness 72-year-old female with past medical history of hypertension, diabetes mellitus, hyperlipidemia, atrial fibrillation, history of colon cancer, history of acute kidney injury in the past. She was admitted with complaint of worsening shortness of breath and recurrent falls. I was called to see the patient because of elevated BUN and creatinine. The patient was seen by me when she was here in February of last year. At that time, she also has acute kidney injury and her creatinine was as high as 1.8, but it was improving and it went down to 0.6-0.7 which is her baseline. Additional Remarks Patient is resting. Extubated today on NC at liters. (Nataly Ramos) Review of Systems General General Remarks Not able to do review of system secondary to mental status. (Nataly Ramos) Objective Data Data Vital Signs Date Time Temp Pulse Resp B/P (MAP) Pulse Ox O2 Delivery O2 Flow Rate FiO2 11/05/17 14:00 70 11/05/17 12:00 99.2 63 10 135/69 (91) 98 11/05/17 12:00 63 11/05/17 11:11 98 Nasal Cannula 4.00 11/05/17 11:00 98 4.00 11/05/17 10:00 97 11/05/17 09:37 100 40 11/05/17 09:37 Nasal Cannula 40 11/05/17 08:00 98.8 70 18 143/76 (98) 100 11/05/17 08:00 70 11/05/17 08:00 40 11/05/17 07:26 100 40 11/05/17 07:00 100 Mechanical Ventilator 40 11/05/17 06:00 65 11/05/17 04:00 40 11/05/17 04:00 98.6 69 18 142/78 (99) 99 11/05/17 04:00 69 11/05/17 03:40 101 189/97 11/05/17 03:01 100 40 11/05/17 02:00 58 11/05/17 00:01 67 137/80 11/05/17 00:00 98.6 67 18 137/80 (99) 99 11/05/17 00:00 40 11/05/17 00:00 67 11/04/17 23:47 100 Ventilator 11/04/17 23:43 100 40 11/04/17 22:00 92 11/04/17 20:19 100 40 11/04/17 20:00 40 11/04/17 20:00 98.7 85 16 111/98 (102) 98 11/04/17 20:00 85 11/04/17 19:00 99 Mechanical Ventilator 40 11/04/17 18:00 99 (Nataly Ramos) -: 11/04/17 0400 11/05/17 0847 Microbiology 11/05/17 Gram Stain, Received Pending 11/05/17 Sputum Culture, Received Pending Imaging Last Impressions Abdomen X-Ray 11/04/17 0000 Signed Impressions: Service Date/Time: Saturday, November 04, 2017 17:50 - CONCLUSION: Nonspecific intestinal gas pattern Jose Wright MD Chest X-Ray 11/03/17 0600 Signed Impressions: Service Date/Time: Friday, November 03, 2017 04:01 - CONCLUSION: No significant change. Robe Menchaca MD Head CT 10/31/17 1321 Signed Impressions: Service Date/Time: October 14:02 - CONCLUSION: 1. No acute intracranial findings. Left sphenoid sinusitis. Remote lacunar infarct right frontal white matter. Samuel Lin MD Abdomen/Pelvis CT 10/31/17 1321 Signed Impressions: Service Date/Time: October 13:58 - CONCLUSION: 1. Development of innumerable small sclerotic lesions in the skeleton most characteristic of sclerotic bony metastatic disease. There is a reported history of malignancy. 2. Hepatomegaly with development of mild ascites. 3. Persistent moderate hydronephrosis with perinephric stranding similar to February 2017. Interval development of mild anasarca. 4. Gallbladder sludge. Gallo catheter in bladder. Samuel Lin MD Lung Scan- Nuclear Medicine 10/31/17 0000 Signed Impressions: Service Date/Time: October 15:00 - CONCLUSION: Low probability scan for pulmonary embolism Jose Wright MD Tubes & Lines: Gallo (Nataly Ramos) Physical Exam Eyes Eye Exam: Pupils Equal (Nataly Ramos) Throat Throat Exam: Oral Mucosa Crocker & Moist (Nataly Ramos) Neck Neck Exam: Neck Supple (Nataly Ramos) Pulmonary Resp Exam: Rhonchi, Sputum, Decreased Bases, Diminished Breath Sounds, Poor Inspiratory Effort (Nataly Ramos) Cardiology CV Exam: Irregular, Arrhythmia (Nataly Ramos) Gastrointestinal/Abdomen GI Exam: Soft, Non-Tender, Bowel Sounds Present, Distended (Nataly Ramos) Extremeties Extremities Exam: Moderate Edema, Pitting Edema, Dependent Edema (Nataly Ramos) Neurologic Neuro Exam: Sedated (Nataly Ramos) Assessment/Plan Assessment Summary: ASH/Acute Renal Failure Problem List: (1) Diabetes mellitus, type II ICD Codes: E11.9 - Type 2 diabetes mellitus Status: Chronic (2) PNA (pneumonia) ICD Codes: J18.9 - Pneumonia, unspecified organism Status: Acute (3) Hypothyroidism ICD Codes: E03.9 - Hypothyroidism Status: Chronic (4) Atrial fibrillation ICD Codes: I48.91 - Unspecified atrial fibrillation Status: Chronic (5) Acute kidney failure ICD Codes: N17.9 - Acute kidney failure, unspecified (6) UTI (urinary tract infection) ICD Codes: N39.0 - Urinary tract infection, site not specified (7) Sepsis due to Gram-negative organism with septic shock ICD Codes: A41.50 - Gram-negative sepsis, unspecified; R65.21 - Severe sepsis with septic shock Status: Resolved Plan Patient has Acute kidney injury. Her baseline Creatinine is normal. She has E.Coli UTI and sepsis. Most likely has ATN causing ASH. Seen by urology. Creatinine improved at from 2.84 from 3.53 UOP at 2.4 L/24 hours Continue antibiotics and IVF. Follow the urine out put and BMP. Calcium is low, will replace with calcium gluconate Magnesium at 1.4 will order replacement No urgent need for Dialysis at present (Nataly Ramos) Plan Patient seen and examined, agree with above. Creatinine is better, Calcium and Mg replaced. (Aixa Figueroa MD) Problem Qualifiers (1) Atrial fibrillation: Qualified Codes: I48.2 - Chronic atrial fibrillation (2) UTI (urinary tract infection): Nataly Ramos November 05, 2017 16:15 Aixa Figueroa MD November 05, 2017 21:29
[2017-11-05] MEDS: MAGNESIUM SULFATE 1 GM PREMIX 100 ML IV SCH ×2 (16:43→18:18)
[2017-11-05] MEDS ORDERED: CALCIUM GLUCONATE INJ 1 GM in SODIUM CHLORIDE 0.9% INJ 90 ML IV ONE (17:00)
[2017-11-05] MEDS: ONDANSETRON ODT 4 MG TAB PO PRN (18:18)
[2017-11-06] VITALS (15 sets, daily range): BP systolic 141–198; BP diastolic 67–96; PULSE 68–110; RESP 12–25; TEMP 97–98.9; O2SAT 96–99
[2017-11-06] MEDS: HYDROCORTISONE SOD SUCCINATE 100 MG VIAL IV PUSH SCH (04:06)
[2017-11-06] MEDS: LABETALOL HCL 100 MG/20 ML VIAL IV PUSH PRN ×3 (04:07→18:48)
[2017-11-06 04:24] LABS: AUTOMATED NEUTROPHIL # 17.7 TH/MM3 (1.8-7.7); BASOPHIL % 0.1 % (0.0-2.0); EOSINOPHIL # 0.1 TH/MM3 (0-0.4); EOSINOPHIL % 0.4 % (0.0-4.0); HEMATOCRIT 32.7 % (35.0-46.0); HEMOGLOBIN 10.5 GM/DL (11.6-15.3); LYMPH % 8.1 % (9.0-44.0); LYMPHOCYTE # 1.8 TH/MM3 (1.0-4.8); MEAN CELL VOLUME 79.2 FL (80.0-100.0); MEAN CORPUSCULAR HEMOGLOBIN 25.4 PG (27.0-34.0); MEAN CORPUSCULAR HGB CONC 32.1 % (32.0-36.0); MEAN PLATELET VOLUME 9.1 FL (7.0-11.0); MONO % 11.7 % (0.0-8.0); MONOCYTE # 2.6 TH/MM3 (0-0.9); NEUT % 79.7 % (16.0-70.0); PLATELET COUNT 201 TH/MM3 (150-450); RED BLOOD COUNT 4.12 MIL/MM3 (4.00-5.30); RED CELL DISTRIBUTION WIDTH 17.8 % (11.6-17.2); WHITE BLOOD COUNT 22.2 TH/MM3 (4.0-11.0)
[2017-11-06 04:48] LABS: ALBUMIN 2.6 GM/DL (3.4-5.0); ALT (GPT) 187 U/L (10-53); AST (GOT) 200 U/L (15-37); BICARBONATE 19.9 MEQ/L (21.0-32.0); BLOOD UREA NITROGEN 73 MG/DL (7-18); CALCIUM 7.6 MG/DL (8.5-10.1); CHLORIDE 109 MEQ/L (98-107); CREATININE 2.29 MG/DL (0.50-1.00); GLOMERULAR FILTRATION RATE 21 ML/MIN (>89); GLUCOSE,RANDOM 241 MG/DL (74-106); MAGNESIUM 2.9 MG/DL (1.5-2.5); SODIUM (NA) 142 MEQ/L (136-145)
[2017-11-06 04:51] LABS: ALKALINE PHOSPHATASE 68 U/L (45-117); TOTAL BILIRUBIN ADULT 1.4 MG/DL (0.2-1.0); TOTAL PROTEIN 6.9 GM/DL (6.4-8.2)
[2017-11-06] MEDS: LEVOTHYROXINE SODIUM 50 MCG TAB PO SCH (06:00)
[2017-11-06 06:58] LABS: BANDS 6 % (0-6); CORRECTED NUCLEATED RBC 2 /100 WBC (0-0); LYMPHOCYTES 10 % (9-44); METAMYELOCYTES 2 % (0-1); MONOCYTES 13 % (0-8); MYELOCYTES 2 % (0-0); NEUTROPHIL # MANUAL DIFF 17.1 TH/MM3 (1.8-7.7); NUCLEATED RED BLOOD CELL 2 (0-0); OVALOCYTES 1+ (NORMAL); POLYS (SEG NEUTROPHILS) 67 % (16-70)
--- NOTE | 2017-11-06 07:44 | HHI.CCPN ---
Subjective Remarks/Hospital Course 72-year-old female with a medical history significant for colon cancer, hypertension, hyperlipidemia, atrial fibrillation status post previous ablation , type 2 diabetes mellitus who presented to the ER with generalized weakness and was hypotensive on arrival. She was diagnosed to have a UTI/sepsis. She received 4 L fluids in the ER with systolic blood pressure coming up to the 90s however was tachycardic with heart rate going up to 130s atrial fibrillation. She had a negligible urine output despite 4 L IV fluids and an elevated lactic acid with concern for severe sepsis and acute kidney injury. Patient was admitted by family medicine service and critical care consult was requested by ER physician. I evaluated the patient in the ER. At that time she was on 2 L nasal cannula maintaining O2 sats around 98%. Her systolic blood pressure was in the mid 90 range. She was in atrial fibrillation with heart rate ranging from 110-120s. Patient was awake and alert at the time of my evaluation and was following commands appropriately. She denied any worsening shortness of breath or chest pain at the time. She did have some abdominal discomfort. She appeared slightly tachypneic. She had already received empiric antibiotic coverage. History was obtained by discussion with , ER physician, family medicine residents and review of records. Patient has reportedly not had anything to eat or drink for 30 hours prior to admission. She has been having burning with urination over the past 2 days. Patient had a head CT which was unremarkable, CT abdomen pelvis revealed moderate hydronephrosis, VQ scan was low probability for PE. 11/01: Patient appears critical, tachypneic. Urine output marginal 200 mL overnight shift time. Blood cultures 4 out of 4 bottles positive for gram- negative rods. Currently on 40 mcg/min of Raymond-Synephrine. Remaisn in A fib with RVR. Will start Amiodarone gtt, attempt rate control/cardioverted. Previous echo done last year shows EF 55-60%, moderate mitral stenosis, mild to moderate aortic stenosis, moderate TR, also will hold Xarelto start IV heparin 11/02: Patient remains very critically ill and septic shock now in respiratory failure. Overnight required intubation for tachypnea and respiratory distress. Received a dose of tobramycin Sensitivities are pending for E. coli. White count has dropped to 2.1 creatinine is 2.12 today. Will discontinue Zosyn and start renally dosed meropenem. Remains on amiodarone infusion heart rate slightly better controlled. Raymond-Synephrine just weaned off, but currently patient is hypotensive with maps 61 11/03: Remains very critical. Failed CPAP trials. Off pressors but urine output is decreasing creatinine has increased BUN 59/creatinine 3.36. WBC count elevated to 20.3 with a 22% bands. E. coli is pansensitive DC meropenem and start Rocephin. 11/04: Remains sedated, orally intubated on mechanical ventilation. On Levophed 2 mics per minute for hypotension. Failed CPAP trial yesterday. 11/05: Arousable off sedation. On mechanical ventilation. Daily CPAP trials ongoing. 11/06: Extubated yesterday, weak but breathing comfortably. Hypertensive. WBC 22.2, but clinically improving, possibly steroid induced. Will DC Hydrocortisone Objective Vital Signs Date Time Temp Pulse Resp B/P (MAP) Pulse Ox O2 Delivery O2 Flow Rate FiO2 11/06/17 06:00 69 11/06/17 04:00 98.3 25 198/96 (130) 96 11/06/17 03:12 Nasal Cannula 4.00 11/05/17 09:37 40 Intake and Output 11/06/17 11/06/17 11/07/17 08:00 16:00 00:00 Intake Total 1460 ml Output Total 1600 ml Balance -140 ml Result Diagram: 11/06/17 0358 11/06/17 0358 Imaging Last 48 hours Impressions Chest X-Ray 11/03/17 0600 Signed Impressions: Service Date/Time: Friday, November 03, 2017 04:01 - CONCLUSION: No significant change. Robe Menchaca MD Last Impressions Head CT 10/31/17 1321 Signed Impressions: Service Date/Time: October 14:02 - CONCLUSION: 1. No acute intracranial findings. Left sphenoid sinusitis. Remote lacunar infarct right frontal white matter. Samuel Lin MD Abdomen/Pelvis CT 10/31/17 1321 Signed Impressions: Service Date/Time: October 13:58 - CONCLUSION: 1. Development of innumerable small sclerotic lesions in the skeleton most characteristic of sclerotic bony metastatic disease. There is a reported history of malignancy. 2. Hepatomegaly with development of mild ascites. 3. Persistent moderate hydronephrosis with perinephric stranding similar to February 2017. Interval development of mild anasarca. 4. Gallbladder sludge. Gallo catheter in bladder. Samuel Lin MD Lung Scan-VQ Nuclear Medicine 10/31/17 0000 Signed Impressions: Service Date/Time: October 15:00 - CONCLUSION: Low probability scan for pulmonary embolism Jose Wright MD Chest X-Ray 10/31/17 0000 Signed Impressions: Service Date/Time: October 12:24 - CONCLUSION: No acute disease. Heart size appears enlarged. Jose Pablo MD Objective Remarks Gen: 72-year-old critically ill female who is lying comfortably on bed HEENT: No pallor or icterus Neck: No JVD Chest/pulmonary: Air entry equal bilaterally, slightly diminished at the bases Cardiovascular: Converted to sinus rhythm now, no gallop or murmur. Remains on amiodarone GI/abdomen: Soft, no tenderness, bowel sounds present. Distended slightly tense Extremities: Warm bilaterally, trace edema Neuro: Alert awake oriented to person and place. Moves all 4 extremities no focal deficit A/P Assessment and Plan 72-year-old female with: ASSESSMENT: Severe sepsis Acute respiratory failure-extubated 11/05/17 Acute kidney failure/ATN Atrial fibrillation with RVR, now NSR E Coli bacteremia/UTI with E. coli Lactic acidosis Moderate hydronephrosis Chronic atrial fibrillation Moderate mitral stenosis, mild to moderate aortic stenosis, moderate tricuspid regurgitation Colon cancer with suspected metastatic disease Vitamin B12 deficiency Diabetes Type 2 - on insulin h/o Hypertension Hyperlipidemia Depression Hypothyroidism h/o CVA h/o PE (03/2017) h/o Pyelo/PNA (03/2017 requiring intubation) PLAN: Neuro: -Discontinue all sedation -PT/OT speech Cardiovascular: -Hypotensive now, use labetalol and hydralazine IV as needed -Discontinue stress dose steroids -On IV amiodarone since 11/01. Transition to p.o. amiodarone today -IV digoxin as needed -Holding Xarelto for anticoagulation, Continue IV heparin -Need rate control due to moderate mitral stenosis and mild to moderate aortic stenosis, currently NSR Pulmonary: -Intubated 11/01/17 for acute respiratory failure, extubated 11/05/17 -Vent bundle, DuoNeb every 6 hours and as needed -EzPAP, Acapella, IS GI/liver: -Pepcid for GI prophylaxis. Swallow eval, diet per recommendation Renal/: -Gallo catheter. Strict intake output, monitor and replete electrolytes, follow BUN/creatinine. -Nephrology following. Urine output is excellent. Creatinine improving -Urology consulted in the setting of moderate hydronephrosis with renal failure , did not recommend stent placement ID: -Continue Rocephin, E. coli is pansensitive -1 dose of tobramycin given overnight on 11/01 prior to cultures stu available -Blood and urine culture pansensitive E. coli -ID following Heme-onc: -Dr. Candelario following for history of colon cancer in suspected metastatic lesions on CT abdomen pelvis. -Need PET scan when stable Endocrine: -SSI for glycemic control. -Vitamin B12 level is low.vitamin B12 injections 1000 mcg IM daily for 10 days then monthly Prophylaxis: -Pepcid/SCDs. Holding Xarelto, continue IV heparin Access: -Has peripheral IVs and port. Central line if needed Patient's condition is critical , but stable with multiorgan dysfunction, worsening respiratory failure, now intubated and renal failure along with severe sepsis. Discussed current clinical status with patient's at bedside including plan of care and he voiced understanding and was agreeable. Level 3 Jan Garcia MD November 06, 2017 07:44
[2017-11-06] MEDS: CHLORHEXIDINE 0.12% (ORAL KIT) 15 ML CUP MT SCH (08:00)
[2017-11-06] MEDS ORDERED: SODIUM CHLOR 0.9% 1000 ML INJ 1,000 ML IV SCH (08:00)
[2017-11-06] MEDS: ALBUMIN 25% INJ 50 ML IV SCH ×2 (08:14→21:00)
[2017-11-06] MEDS: HEPARIN-D5W 25,000 U/250 ML 250 ML IV PRN ×2 (08:14→22:36)
[2017-11-06] MEDS: SODIUM CHLORIDE 0.9% FLUSH 10 ML FLUSH IV FLUSH SCH ×2 (08:22→21:00)
[2017-11-06] MEDS: AMIODARONE 200 MG TAB PO SCH (08:26)
[2017-11-06] MEDS: VASOPRESSIN INJ 40 UNITS in DEXTROSE 5% IN WATER 100ML INJ 98 ML IV SCH ×2 (08:32)
[2017-11-06] MEDS: CYANOCOBALAMIN 1000 MCG/ML VIAL SQ SCH (08:32)
[2017-11-06] MEDS: INSULIN ASPART SUPPLEMENTAL SCALE SQ SCH ×4 (08:45→21:00)
[2017-11-06] MEDS: DOCUSATE SODIUM 50 MG/SENNA 8.6 MG TAB PO SCH ×2 (09:00→21:00)
[2017-11-06] MEDS: FLUoxetine HCL 20 MG CAP PO SCH (09:00)
[2017-11-06] MEDS: PRAVASTATIN SOD 40 MG TAB PO SCH (09:00)
[2017-11-06] MEDS: LACTULOSE SYRUP 20 GM/30 ML CUP PO SCH ×2 (09:00→17:10)
[2017-11-06] MEDS: VENLAFAXINE HCL XR 75 MG CAP PO SCH (09:00)
--- NOTE | 2017-11-06 09:32 | HHI.FPPN ---
Subjective Remarks Mrs. Marroquin was afebrile overnight with HTN to MAP ~115; other vitals stable. Per at bedside, patient was doing well this morning and was answering questions well. He was encouraged at how well she was doing. Later this morning , she began to be less alert and would mumble more; he is concerned that she is worsening. Patient would answer questions but seemed to fall asleep easily. When awoken, she would follow commands such as wiggling toes and squeezing hands with repeated prompting. Patient does not report any current pain. She is aware of her name but thinks the year is 1979. Objective Vitals Vital Signs Date Time Temp Pulse Resp B/P (MAP) Pulse Ox O2 Delivery O2 Flow Rate FiO2 11/06/17 08:32 76 208/103 11/06/17 06:00 69 11/06/17 04:00 98.3 77 25 198/96 (130) 96 11/06/17 04:00 77 11/06/17 03:12 96 Nasal Cannula 4.00 11/06/17 02:00 76 11/06/17 00:00 98.0 68 12 175/83 (113) 97 11/06/17 00:00 68 11/05/17 23:45 96 Nasal Cannula 4.00 11/05/17 22:00 68 11/05/17 21:53 97 Nasal Cannula 4.00 11/05/17 20:00 68 11/05/17 20:00 97.9 71 11 172/84 (113) 97 11/05/17 19:00 97 4.00 11/05/17 19:00 73 179/82 11/05/17 18:00 73 11/05/17 16:44 62 150/87 11/05/17 16:00 98.2 73 10 173/88 (116) 99 11/05/17 16:00 73 11/05/17 14:00 70 11/05/17 12:00 99.2 63 10 135/69 (91) 98 11/05/17 12:00 63 11/05/17 11:11 98 Nasal Cannula 4.00 11/05/17 11:00 98 4.00 11/05/17 10:00 97 11/05/17 09:37 100 40 11/05/17 09:37 Nasal Cannula 40 I/O 511/05/17 11/05/17 11/06/17 11/06/17 11/06/17 07:00 15:00 23:00 07:00 15:00 23:00 Intake Total 1150 ml 1658 ml 550 ml 1460 ml Output Total 1150 ml 1050 ml 1600 ml Balance 0 ml 1658 ml -500 ml -140 ml IV Total 1000 ml 1658 ml 550 ml 1460 ml Other 150 ml Output Urine Total 1150 ml 1050 ml 1600 ml # Bowel Movements 0 Result Diagram: 11/06/17 0358 11/06/17 0358 Imaging Last Impressions Head CT 11/06/17 0000 Signed Impressions: Service Date/Time: Monday, November 06, 2017 10:03 - CONCLUSION: 1. No acute intracranial abnormality or significant interval change. César Coats MD Abdomen X-Ray 11/04/17 0000 Signed Impressions: Service Date/Time: Saturday, November 04, 2017 17:50 - CONCLUSION: Nonspecific intestinal gas pattern Jose Wright MD Chest X-Ray 11/03/17 0600 Signed Impressions: Service Date/Time: Friday, November 03, 2017 04:01 - CONCLUSION: No significant change. Robe Menchaca MD Abdomen/Pelvis CT 10/31/17 1321 Signed Impressions: Service Date/Time: October 13:58 - CONCLUSION: 1. Development of innumerable small sclerotic lesions in the skeleton most characteristic of sclerotic bony metastatic disease. There is a reported history of malignancy. 2. Hepatomegaly with development of mild ascites. 3. Persistent moderate hydronephrosis with perinephric stranding similar to February 2017. Interval development of mild anasarca. 4. Gallbladder sludge. Jacobsen catheter in bladder. Samuel Lin MD Lung Scan-V Nuclear Medicine 10/31/17 0000 Signed Impressions: Service Date/Time: October 15:00 - CONCLUSION: Low probability scan for pulmonary embolism Jose Wright MD Objective Remarks GENERAL: This is a well-nourished, well-developed patient, on ventilator and sedation. SKIN: No rashes, ecchymoses or lesions. Cool and dry. EYES: No conjunctival injection. PERRLA; symmetrical. Patient did not follow with eyes to assess EOM ENT: Nose without bleeding or purulent drainage. Airway patent. NECK: Trachea midline. CARDIOVASCULAR: Normal rate and rhythm. Normal distal LE perfusion bilaterally RESPIRATORY: Normal rate. No focal congestion or wheezing to auscultation GASTROINTESTINAL: Abdomen soft, distended. Normal bowel sounds. MUSCULOSKELETAL: No calf asymmetry or pain to palpation NEUROLOGICAL: Patient initially asleep; not fully alert. On awakening, patient oriented to person and place; not oriented to year. Patient able to follow commands such as hand squeezing and wiggling toes. Questionable asymmetrical smile. Normal sensation reported in bilateral upper and lower extremities. Sedated w/ Fentanyl, some hand movements but not responsive to questions; non- agitated A/P Assessment and Plan Patient is a 72-year-old admitted due to septic shock from urinary source; patient also with sclerotic bony lesions concerning for colon cancer metastasis. Due to respiratory decline/multiorgan failure, patient on ventilator since . Critical care, Nephrology, and infectious disease consulted Discharge Planning Prognosis unclear at this time Patient remains on ventilator Critical Care managing at this time, appreciate care of patient Notably asserts patient is full code Problem List: (1) Sepsis ICD Codes: A41.9 - Sepsis, unspecified organism Status: Acute Plan: Impression: Septic shock on admission; labs suggestive of multiorgan dysfunction. Patient with low MAP despite 4 L IVF Patient placed on Phenylephrine. Patient developed respiratory failure and required intubation Labs: Cr: 2.10 (10/31)-> 3.53 (11/04) -> 2.84 (11/05) -> 2.29 WBC: 15.8 (10/31)-> 2.1 (11/02)-> 20.3 (11/03) -> 17.7 (11/04) -> 22.2 (11/06) Lactic acid: 3 (10/31) -> 3.3 (11/02) -Critical care consulted -Continue antibiotic therapy -Infectious disease consulted -Rocephin increased to 2gm daily -Nephrology consulted -Continue to monitor CBC, BMP, urine output -Continue to monitor VS; pressors discontinued and intermittent HTN Antibiotic history: s/p Meropenem 2gm q12hrs IV -s/p Zosyn 2.5mg q6hrs (10/31-11/02) -s/p Tobramycin IV x1 11/02 Cultures: 11/05 -Sputum culture pending 10/31- blood x3- taylor sensitive E Coli 10/31- urine- taylor sensitive E coli 11/02- blood x2- negative x48 hrs (2) Respiratory failure, acute ICD Codes: J96.00 - Acute respiratory failure, unspecified whether with hypoxia or hypercapnia Status: Acute Plan: Impression: Patient intubated 11/02 for tachypnea and respiratory distress ; ABG 11/02 with pH 7.18, CO2 52. 11/03- failed CPAP trials. CXR with persistent hazy opacities at bases 11/04- Remains on ventilator, sedated. 11/05- Extubated 11/06- stable respirations while extubated -Continue management per Critical care -Duonebs q6hrs as needed -Will stop Hydrocortisone 100mg IV q8hrs (3) ASH (acute kidney injury) ICD Codes: N17.9 - Acute kidney failure, unspecified Status: Acute Plan: 11/06: Cr improved (2.84 11/05-> 2.29 11/06). 2650ml output overnight Impression: renal injury presumed secondary to septic shock/multiorgan dysfunction Cr- 2.12 on admission-> 2.59 (11/02) -> 3.53 (11/04) -> 2.[address] abdomen/pelvis- moderate hydronephrosis w/ perinephric stranding similar to . Interval development of mild anasarca. -Continue to monitor urine output w/ jacobsen -Nephrology consulted -Continue IVF (100ml/hr NS, Albumin), antibiotics -Continue to monitor urine output/BMP -Ca replacement -Will consider HD if worsening -Urology consulted for hydronephrosis -Continue Jacobsen, antibiotics -Do not suspect obstruction; do not recommend stent placement -Recommend renal US next week (4) UTI (urinary tract infection) ICD Codes: N39.0 - Urinary tract infection, site not specified Plan: Impression: UA with large leukocyte esterase, innumerable WBCs, many WBC clumps Urine culture and blood cultures 10/31 with pansensitive E Coli -Management as above for sepsis (5) Altered mental state ICD Codes: R41.82 - Altered mental status, unspecified Status: Acute Plan: Impression: Pt disoriented on exam this morning. No focal deficits with exception of questionable asymmetrical smile. History of TIA. recently extubated 11/05. On Heparin anticoagulation CT head on admission (ordered due to confusion on admission; suspected secondary to sepsis) w/o acute findings. Remote lacunar infarct in right frontal white matter Labs: Leukocytosis. Some hypocalcemia. Normal sodium. Normal respiratory status after extubation w/ normal air movement; CO2 retention less likely -Due to neurologic concerns while on Heparin, will repeat head CT -Will check ammonia due to LFT abnormalities -Due to suspicion that symptoms are likely confusion related to hospitalization and her recent intubation/sedation, will monitor and reorient patient as needed (6) Hypertension ICD Codes: I10 - Essential (primary) hypertension Status: Chronic Plan: 11/06- significant HTN; MAP ~115 Impression: PMH HTN. Initial hypotension on admission w/ septic shock. Now intermittent hypertension based on agitation/sedation -Continue to monitor; management per CC -Labetalol PRN -Hydralazine PRN -Clonidine PRN -Nicardipine drip started for hypertensive urgency (7) Atrial fibrillation ICD Codes: I48.91 - Unspecified atrial fibrillation Status: Chronic Plan: Impression: patient placed on amiodarone drip and given digoxin for afib with RVR on admission. Patient currently with normal rate/sinus rhythm. Patient with reported history of moderate mitral stenosis and mild/moderate aortic stenosis Echocardiogram- moderate concentric LVF. EF 70%. Aortic sclerosis present. Moderate /severe pulmonary HTN (60-70mmHg) Initially placed on heparin drip-> PO Amiodarone; currently on hold with sinus rhythm -Continue telemetry/monitoring VS -Continue IV heparin -Continue amiodarone as needed. 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 [id number]. s/p Zeloda 08/2016. Abdomen/Pelvis CT 10/31/17: Innumerable small sclerotic lesions in the skeleton, most characteristic of sclerotic bony metastatic disease -Dr. Candelario consulted -recent bone scan w/o uptake; reassuring regarding sclerotic lesions -plan for PET as outpatient -Continue heparin, treatment for sepsis (9) Weakness ICD Codes: R53.1 - Weakness Status: Acute Plan: -PT consulted; will evaluate once extubated/improving (10) Diabetes mellitus, type II ICD Codes: E11.9 - Type 2 diabetes mellitus Status: Chronic Plan: Will hold home medications -Low dose SSI, per Critical Care protocol -Continue to monitor blood sugar (11) Hypothyroidism ICD Codes: E03.9 - Hypothyroidism Status: Chronic Plan: Continue home Levothyroxine (12) FEN/PPX Plan: Fluid: Fluid per finished yarn examiner -100ml/hr NS -Albumin 25% q12 hrs Electrolytes: Continue to monitor; replacement Nutrition: Diabetic diet DVT PPX: Per CC, on heparin gtt at this time Problem Qualifiers (1) Sepsis: Qualified Codes: A41.9 - Sepsis, unspecified organism (2) UTI (urinary tract infection): (3) Hypertension: Qualified Codes: I10 - Essential (primary) hypertension (4) Atrial fibrillation: Qualified Codes: I48.2 - Chronic atrial fibrillation Oscar Santos MD R3 November 06, 2017 09:32
[2017-11-06] MEDS: hydrALAZINE HCL 20 MG/ML VIAL IV PUSH PRN (09:49)
[2017-11-06] MEDS ORDERED: niCARdipine INJ 25 MG in SODIUM CHLOR 0.9% 250 ML INJ 240 ML IV PRN (10:00)
--- NOTE | 2017-11-06 10:20 | RADRPT ---
EXAM DATE/TIME: 11/06/2017 10:03 [facility] COMPARISON: CT BRAIN W/O CONTRAST, October 31, 2017, 14:02. INDICATIONS : Altered mental status RADIATION DOSE: 66.34 CTDIvol (mGy) MEDICAL HISTORY : Carcinoma, colon. Diabetes mellitus type 1. SURGICAL HISTORY : None. ENCOUNTER: Initial ACUITY: 1 day PAIN SCALE: 0/10 LOCATION: cranial TECHNIQUE: Multiple contiguous axial images were obtained of the head. Using automated exposure control and adj ustment of the mA and/or kV according to patient size, radiation dose was kept as low as reasonably a chievable to obtain optimal diagnostic quality images. DICOM format image data is available electro nically for review and comparison. FINDINGS: CEREBRUM: Focal hypodensity in the right jordan radiata consistent with old lacunar infarct. Mild diffuse cereb ral atrophy. The ventricles are normal for degree of atrophy. No evidence of midline shift, mass les ion, hemorrhage or acute infarction. No extra-axial fluid collections are seen. POSTERIOR FOSSA: The cerebellum and brainstem are intact. The 4th ventricle is midline. The cerebellopontine angle i s unremarkable. EXTRACRANIAL: The visualized portion of the orbits is intact. Mucoperiosteal thickening and fluid again noted in th e left sphenoid sinus. SKULL: The calvaria is intact. No evidence of skull fracture. CONCLUSION: 1. No acute intracranial abnormality or significant interval change. César Coats MD on November 06, 2017 at 10:11 Board Certified Radiologist. This report was verified electronically.
--- NOTE | 2017-11-06 10:27 | HHI.IDPN ---
Subjective Subjective Remarks Ms. Marroquin is a 72-year-old female with past medical history significant for colon cancer with reported history of spots on her vertebrae. Patient's spouse reports that she was scheduled to have a PET scan but could not complete it as she was extremely weak. Dr. Vargas is her oncologist and is following her. Her past medical history is also significant for hypertension hyperlipidemia, atrial fibrillation status post previous ablation, type 2 diabetes. With this background patient presents to the emergency department with generalized weakness as well as hypotensive upon arrival. She was diagnosed with possible UTI sepsis. She received 4 L of IV fluids in the emergency room and her blood pressure improved to 690s systolic. But she continued to be in atrial fibrillation with heart rate in 130s. She had a negligible urine output despite 4 L IV fluids and elevated lactic acid remains a concern. Sepsis workup was initiated and patient was started on empiric IV antibiotics for presumed UTI related sepsis. Per review of records it appears that patient reportedly did not eat or drink for 30 hours prior to admission and was having burning with urination approximately 2 days prior to admission. CT of the head was done which was unremarkable a CT of the abdomen pelvis showed moderate hydronephrosis as well as several spots as mentioned in the report concerning for malignancy related metastases. Oncology Dr. Vargas is following the patient. A VQ scan was done which showed low probability of PE. Blood cultures done on admission are positive for E. coli as well as her urine culture was also positive for E. coli. Patient has been treated with ceftriaxone and has been clinically improved. Repeat blood cultures are negative so far. Urology has seen the patient and there is no plan for placement of stent. This appears to be hydronephrosis with stranding around the kidney suggestive of pyelonephritis. Infectious diseases consulted for evaluation and management of sepsis, E. coli bacteremia and E. coli pyelonephritis. Overnight events reviewed no fevers no rash No diarrhea extubated now on room air. Leucocytosis but on steroids. Stopped today. UO good. Gallo to be assessed for removal. Awake, alert lethargic at times per RN. CT head negative. Swallow eval planned. Antibiotics Ceftriaxone IV Lines Port site ok Past Medical History reviewed Allergies: Coded Allergies: Sulfa (Sulfonamide Antibiotics) (Verified Allergy, Severe, 10/31/17) codeine (Verified Allergy, Severe, Nausea/Vomiting, 10/31/17) Uncoded Allergies: METAL (Allergy, Intermediate, hives, 03/08/16) SURGICAL STEEL (Allergy, Intermediate, hives, 03/08/16) Objective . Vital Signs Date Time Temp Pulse Resp B/P (MAP) Pulse Ox O2 Delivery O2 Flow Rate FiO2 11/06/17 08:32 76 208/103 11/06/17 06:00 69 11/06/17 04:00 98.3 77 25 198/96 (130) 96 11/06/17 04:00 77 11/06/17 03:12 96 Nasal Cannula 4.00 11/06/17 02:00 76 11/06/17 00:00 98.0 68 12 175/83 (113) 97 11/06/17 00:00 68 11/05/17 23:45 96 Nasal Cannula 4.00 11/05/17 22:00 68 11/05/17 21:53 97 Nasal Cannula 4.00 11/05/17 20:00 68 11/05/17 20:00 97.9 71 11 172/84 (113) 97 11/05/17 19:00 97 4.00 11/05/17 19:00 73 179/82 11/05/17 18:00 73 11/05/17 16:44 62 150/87 11/05/17 16:00 98.2 73 10 173/88 (116) 99 11/05/17 16:00 73 11/05/17 14:00 70 11/05/17 12:00 99.2 63 10 135/69 (91) 98 11/05/17 12:00 63 11/05/17 11:11 98 Nasal Cannula 4.00 11/05/17 11:00 98 4.00 . Laboratory Tests Test 11/06/17 03:58 White Blood Count 22.2 TH/MM3 Red Blood Count 4.12 MIL/MM3 Hemoglobin 10.5 GM/DL Hematocrit 32.7 % Mean Corpuscular Volume 79.2 FL Mean Corpuscular Hemoglobin 25.4 PG Mean Corpuscular Hemoglobin Concent 32.1 % Red Cell Distribution Width 17.8 % Platelet Count 201 TH/MM3 Mean Platelet Volume 9.1 FL Neutrophils (%) (Auto) 79.7 % Lymphocytes (%) (Auto) 8.1 % Monocytes (%) (Auto) 11.7 % Eosinophils (%) (Auto) 0.4 % Basophils (%) (Auto) 0.1 % Neutrophils # (Auto) 17.7 TH/MM3 Lymphocytes # (Auto) 1.8 TH/MM3 Monocytes # (Auto) 2.6 TH/MM3 Eosinophils # (Auto) 0.1 TH/MM3 Basophils # (Auto) 0.0 TH/MM3 CBC Comment AUTO DIFF Differential Total Cells Counted 100 Neutrophils % (Manual) 67 % Band Neutrophils % 6 % Lymphocytes % 10 % Monocytes % 13 % Neutrophils # (Manual) 17.1 TH/MM3 Metamyelocytes 2 % Myelocytes 2 % Nucleated Red Blood Cells 2 /100 WBC Differential Comment FINAL DIFF MANUAL Platelet Estimate NORMAL Platelet Morphology Comment NORMAL Ovalocytes 1+ Laboratory Tests Test 11/05/17 08:47 11/06/17 03:58 Blood Urea Nitrogen 80 MG/DL 73 MG/DL Creatinine 2.84 MG/DL 2.29 MG/DL Random Glucose 206 MG/DL 241 MG/DL Total Protein 6.8 GM/DL 6.9 GM/DL Albumin 2.5 GM/DL 2.6 GM/DL Calcium Level 6.9 MG/DL 7.6 MG/DL Magnesium Level 2.6 MG/DL 2.9 MG/DL Alkaline Phosphatase 59 U/L 68 U/L Aspartate Amino Transf (AST/SGOT) 268 U/L 200 U/L Alanine Aminotransferase (ALT/SGPT) 179 U/L 187 U/L Total Bilirubin 1.4 MG/DL 1.4 MG/DL Sodium Level 138 MEQ/L 142 MEQ/L Potassium Level 4.1 MEQ/L 3.5 MEQ/L Chloride Level 106 MEQ/L 109 MEQ/L Carbon Dioxide Level 17.0 MEQ/L 19.9 MEQ/L Anion Gap 15 MEQ/L 13 MEQ/L Estimat Glomerular Filtration Rate 16 ML/MIN 21 ML/MIN Protein Corrected Calcium 7.1 MG/DL Microbiology Date/Time Source Procedure Growth Status 11/05/17 10:58 Sputum Endotracheal Gram Stain - Final Resulted 11/05/17 10:58 Sputum Endotracheal Sputum Culture Pending Resulted Imaging Last Impressions Abdomen X-Ray 11/04/17 0000 Signed Impressions: Service Date/Time: Saturday, November 04, 2017 17:50 - CONCLUSION: Nonspecific intestinal gas pattern Jose Wright MD Chest X-Ray 11/03/17 0600 Signed Impressions: Service Date/Time: Friday, November 03, 2017 04:01 - CONCLUSION: No significant change. Robe Menchaca MD Head CT 10/31/17 1321 Signed Impressions: Service Date/Time: October 14:02 - CONCLUSION: 1. No acute intracranial findings. Left sphenoid sinusitis. Remote lacunar infarct right frontal white matter. Samuel Lin MD Abdomen/Pelvis CT 10/31/17 1321 Signed Impressions: Service Date/Time: October 13:58 - CONCLUSION: 1. Development of innumerable small sclerotic lesions in the skeleton most characteristic of sclerotic bony metastatic disease. There is a reported history of malignancy. 2. Hepatomegaly with development of mild ascites. 3. Persistent moderate hydronephrosis with perinephric stranding similar to February 2017. Interval development of mild anasarca. 4. Gallbladder sludge. Gallo catheter in bladder. Samuel Lin MD Lung Scan-V Nuclear Medicine 10/31/17 0000 Signed Impressions: Service Date/Time: October 15:00 - CONCLUSION: Low probability scan for pulmonary embolism Jose Wright MD Physical Exam GENERAL: This is a well-nourished, well-developed patient, in no apparent distress. SKIN: Areas of Ecchymosis. HEAD: Atraumatic. Normocephalic. No temporal or scalp tenderness. EYES: Pupils equal round and reactive. Extraocular motions intact. No scleral icterus. No injection or drainage. ENT: NAD NECK: Trachea midline. Supple, nontender, no meningeal signs. CARDIOVASCULAR: HS audible. No murmur. RESPIRATORY: Clear to auscultation. Breath sounds decreased in the bases. GASTROINTESTINAL: Abdomen soft, mildly distended. Non tender. MUSCULOSKELETAL: Extremities without clubbing, cyanosis, or edema. No joint tenderness, effusion, or edema noted. NEUROLOGICAL: Awake, alert. non focal. Psych cooperative Port site with no e.o infection. Assessment & Plan Remarks Severe sepsis present on admission E. coli pyelonephritis with hydronephrosis with no evidence of obstruction per urology notes. He did urinary tract infection. No plans for stent placement. E. coli bacteremia appears to be transient and related to the E. coli pyelonephritis. Possible aspiration pneumonia on admission Acute metabolic encephalopathy likely secondary to sepsis, acute renal failure. Acute renal failure on admission: prerenal, sepsis. Abnormal LFTs: ? sepsis related. Leucocytosis Ileus early: abd distention. Colon cancer with suspected mets. Recs: Continue Ceftriaxone increase dose to 2 gm IV for bacteremia. Follow LFTs if increasing trend will switch to another cephalosporin or Levaquin based on swallow eval results. Also will consider US liver if persistent. AKP normal only transaminitis likely sepsis induced. Swallow eval today. Follow official CT head report. Follow cultures Follow clinically. Sputum cultures and gram stain dw Brittani Davidson MD November 06, 2017 10:27
--- NOTE | 2017-11-06 11:00 | HHI.PR ---
Subjective Patient symptoms today Pt seen and examined. at bedside. CT scan of head: negative. Creatinine improving down to 2.2 Objective Vital Signs Vital Signs Date Time Temp Pulse Resp B/P (MAP) Pulse Ox O2 Delivery O2 Flow Rate FiO2 11/06/17 08:32 76 208/103 11/06/17 07:00 99 4.00 11/06/17 06:00 69 11/06/17 04:00 98.3 77 25 198/96 (130) 96 11/06/17 04:00 77 11/06/17 03:12 96 Nasal Cannula 4.00 11/06/17 02:00 76 11/06/17 00:00 98.0 68 12 175/83 (113) 97 11/06/17 00:00 68 11/05/17 23:45 96 Nasal Cannula 4.00 11/05/17 22:00 68 11/05/17 21:53 97 Nasal Cannula 4.00 11/05/17 20:00 68 11/05/17 20:00 97.9 71 11 172/84 (113) 97 11/05/17 19:00 97 4.00 11/05/17 19:00 73 179/82 11/05/17 18:00 73 11/05/17 16:44 62 150/87 11/05/17 16:00 98.2 73 10 173/88 (116) 99 11/05/17 16:00 73 11/05/17 14:00 70 11/05/17 12:00 99.2 63 10 135/69 (91) 98 11/05/17 12:00 63 11/05/17 11:11 98 Nasal Cannula 4.00 11/05/17 11:00 98 4.00 Intake & Output 11/06/17 11/06/17 07:00 19:00 Intake Total 1460 ml Output Total 1600 ml Balance -140 ml IV Total 1460 ml Output Urine Total 1600 ml Result Diagram: 11/06/17 0358 11/06/17 0358 Imaging Last [address] 11/06/17 0000 Signed Impressions: Service Date/Time: Monday, November 06, 2017 10:03 - CONCLUSION: 1. No acute intracranial abnormality or significant interval change. César Coats MD Objective Remarks Abd: soft, NT, some distension Jacobsen: clear urine with good output. (2650cc) Medications and IVs Current Medications Medications (Trade) Dose Ordered Sig/Chiqui Route Start Time Stop Time Status Last Admin (Cordarone) 200 mg DAILY PO 11/01/17 09:00 Future hold 11/06/17 08:26 (PROzac) 20 mg DAILY PO 11/01/17 09:00 11/05/17 08:39 (Synthroid) 50 mcg DAILY@0600 PO 11/01/17 06:00 11/05/17 04:26 (Pravachol) 40 mg DAILY PO 11/01/17 09:00 11/05/17 08:39 (Xarelto) 20 mg DAILY PO 11/01/17 09:00 Future Hold (Effexor Xr) 75 mg DAILY PO 11/01/17 09:00 11/05/17 08:39 (NS Flush) 2 ml UNSCH PRN IV FLUSH 10/31/17 15:30 (NS Flush) 2 ml BID IV FLUSH 10/31/17 21:00 11/06/17 08:22 (Tylenol) 650 mg Q4H PRN PO 10/31/17 15:30 11/01/17 19:50 (Narcan Inj) 0.4 mg UNSCH PRN IV PUSH 10/31/17 15:30 (Elsa-Colace) 1 tab BID PO 10/31/17 21:00 11/05/17 08:39 (Milk Of Magnesia Liq) 30 ml Q12H PRN PO 10/31/17 15:30 (Senokot) 17.2 mg Q12H PRN PO 10/31/17 15:30 11/04/17 08:19 (Dulcolax Supp) 10 mg DAILY PRN RECTAL 10/31/17 15:30 (D50w (Vial) Inj) 50 ml UNSCH PRN IV PUSH 10/31/17 15:30 (Glucagon Inj) 1 mg UNSCH PRN OTHER 10/31/17 15:30 (NovoLOG SUPPLEMENTAL SCALE) 1 ACHS SLIDING SCALE SQ 10/31/17 17:00 11/06/17 08:45 (Catapres) 0.1 mg Q6H PRN PO 10/31/17 15:30 (Zofran Odt) 4 mg Q6H PRN PO 5/10/18 15:30 11/05/17 18:18 Acetaminophen 100 ml @ 400 mls/hr Q6H PRN IV 10/31/17 17:15 ([facility] [place] [facility] [place]) Patient in critical care unit? Ass... Q361D .XX 10/31/17 23:15 10/31/17 23:15 (Brethine Inj) 1 mg UNSCH PRN SQ 10/31/17 23:30 Heparin Sodium/ Dextrose 250 ml @ 10 mls/hr TITRATE PRN IV 11/01/17 09:00 11/06/17 08:14 Albumin Human 50 ml @ 60 mls/hr Q12H IV 11/01/17 09:00 11/06/17 08:14 (Vitamin B12 Inj) 1,000 mcg DAILY SQ 11/01/17 11:00 11/11/17 10:59 11/06/17 08:32 (Mehama 5-325 Mg) 1 tab Q4H PRN PO 11/01/17 13:15 11/01/17 20:59 (Pyridium) 100 mg Q8H PRN PO 11/01/17 13:45 (Restoril) 15 mg HS PRN PO 11/01/17 22:00 11/01/17 22:43 (Peridex 0.12% Liq) 15 ml BID@08,20 MT 11/02/17 08:00 11/05/17 08:40 Vasopressin 40 units/Dextrose 100 ml @ 6 mls/hr [id number] IV 11/02/17 05:23 11/02/17 05:35 Ceftriaxone Sodium 2000 mg/ Sodium Chloride 100 ml @ 200 mls/hr Q24H IV 11/05/17 13:00 11/05/17 12:25 (Trandate Inj) 10 mg Q4H PRN IV PUSH 11/05/17 10:45 11/06/17 08:32 (Apresoline Inj) 20 mg Q4H PRN IV PUSH 11/06/17 07:30 11/06/17 09:49 (Lactulose Liq) 30 ml Q8H PO 11/06/17 09:00 Sodium Chloride 1,000 ml @ 50 mls/hr Q20H IV 11/06/17 08:00 11/06/17 08:31 (Catapres) 0.2 mg Q6H PRN PO 11/06/17 09:00 Nicardipine HCl 25 mg/Sodium Chloride 250 ml @ 50 mls/hr TITRATE PRN IV 11/06/17 10:00 Assessment and Plan Assessment and Plan 72 y.o female with urosepsis and ASH Creatinine improving down to 2.2 Maintain jacobsen catheter for now as creatinine continues to improve Mookie Alvarez DO November 06, 2017 11:00
[2017-11-06] MEDS: cefTRIAXone INJ 2,000 MG in SODIUM CHLORIDE 0.9% INJ 100 ML IV SCH (13:04)
--- NOTE | 2017-11-06 16:16 | HHI.NPPN ---
Subjective General Problems: Anemia, Edema, Hypotension, Mebatolic Acidosis Renal Failure: Acute History of Present Illness 72-year-old female with past medical history of hypertension, diabetes mellitus, hyperlipidemia, atrial fibrillation, history of colon cancer, history of acute kidney injury in the past. She was admitted with complaint of worsening shortness of breath and recurrent falls. I was called to see the patient because of elevated BUN and creatinine. The patient was seen by me when she was here in February of last year. At that time, she also has acute kidney injury and her creatinine was as high as 1.8, but it was improving and it went down to 0.6-0.7 which is her baseline. Additional Remarks Patient is awake, but not fully oriented. Review of Systems General General Remarks Not able to do review of system secondary to mental status. Objective Data Data 11/06/17 11/07/17 19:00 07:00 Intake Total 400 ml Balance 400 ml IV Total 400 ml Vital Signs Date Time Temp Pulse Resp B/P (MAP) Pulse Ox O2 Delivery O2 Flow Rate FiO2 11/06/17 14:00 110 11/06/17 12:00 98.0 75 19 147/67 (93) 99 11/06/17 12:00 75 11/06/17 10:00 77 11/06/17 09:00 72 11/06/17 08:32 76 208/103 11/06/17 08:00 97.0 68 12 158/77 (104) 99 11/06/17 08:00 68 11/06/17 08:00 68 11/06/17 07:00 97.0 73 22 195/91 (125) 98 11/06/17 07:00 99 4.00 11/06/17 06:00 69 11/06/17 04:00 98.3 77 25 198/96 (130) 96 11/06/17 04:00 77 11/06/17 03:12 96 Nasal Cannula 4.00 11/06/17 02:00 76 11/06/17 00:00 98.0 68 12 175/83 (113) 97 11/06/17 00:00 68 11/05/17 23:45 96 Nasal Cannula 4.00 11/05/17 22:00 68 11/05/17 21:53 97 Nasal Cannula 4.00 11/05/17 20:00 68 11/05/17 20:00 97.9 71 11 172/84 (113) 97 11/05/17 19:00 97 4.00 11/05/17 19:00 73 179/82 11/05/17 18:00 73 11/05/17 16:44 62 150/87 -: 11/06/17 0358 11/06/17 0358 Tubes & Lines: Gallo Physical Exam General Appearance Remarks Intubated and sedated. Eyes Eye Exam: Pupils Equal Throat Throat Exam: Oral Mucosa Emigrant & Moist Neck Neck Exam: Neck Supple Pulmonary Resp Exam: Rhonchi, Sputum, Decreased Bases, Diminished Breath Sounds, Poor Inspiratory Effort Cardiology CV Exam: Irregular, Arrhythmia Gastrointestinal/Abdomen GI Exam: Soft, Non-Tender, Bowel Sounds Present, Distended Extremeties Extremities Exam: Moderate Edema, Pitting Edema, Dependent Edema Neurologic Neuro Exam: Sedated Assessment/Plan Assessment Summary: ASH/Acute Renal Failure Problem List: (1) Diabetes mellitus, type II ICD Codes: E11.9 - Type 2 diabetes mellitus Status: Chronic (2) PNA (pneumonia) ICD Codes: J18.9 - Pneumonia, unspecified organism Status: Acute (3) Hypothyroidism ICD Codes: E03.9 - Hypothyroidism Status: Chronic (4) Atrial fibrillation ICD Codes: I48.91 - Unspecified atrial fibrillation Status: Chronic (5) Acute kidney failure ICD Codes: N17.9 - Acute kidney failure, unspecified (6) UTI (urinary tract infection) ICD Codes: N39.0 - Urinary tract infection, site not specified (7) Sepsis due to Gram-negative organism with septic shock ICD Codes: A41.50 - Gram-negative sepsis, unspecified; R65.21 - Severe sepsis with septic shock Status: Resolved Plan Patient has chronic kidney disease and develop ASH. Now the urine out put is better. Creatinine continue to improve. Calcium is better. Has elevated liver enzymes. BP is stable. Continue antibiotics. Avoid Nephrotoxins, and follow the BMP. Problem Qualifiers (1) Atrial fibrillation: Qualified Codes: I48.2 - Chronic atrial fibrillation (2) UTI (urinary tract infection): Aixa Figueroa MD November 06, 2017 16:16
[2017-11-07] VITALS (14 sets, daily range): BP systolic 137–192; BP diastolic 65–91; PULSE 74–94; RESP 16–28; TEMP 99.1–99.5; O2SAT 95–98
[2017-11-07] MEDS: LACTULOSE SYRUP 20 GM/30 ML CUP PO SCH ×3 (01:00→13:46)
[2017-11-07] MEDS: VASOPRESSIN INJ 40 UNITS in DEXTROSE 5% IN WATER 100ML INJ 98 ML IV SCH ×4 (02:03→16:46)
[2017-11-07] MEDS: LEVOTHYROXINE SODIUM 50 MCG TAB PO SCH (06:00)
[2017-11-07 06:05] LABS: AUTOMATED NEUTROPHIL # 21.4 TH/MM3 (1.8-7.7); BASOPHIL % 0.1 % (0.0-2.0); EOSINOPHIL # 0.2 TH/MM3 (0-0.4); EOSINOPHIL % 0.6 % (0.0-4.0); HEMATOCRIT 33.6 % (35.0-46.0); HEMOGLOBIN 10.8 GM/DL (11.6-15.3); LYMPH % 8.8 % (9.0-44.0); LYMPHOCYTE # 2.2 TH/MM3 (1.0-4.8); MEAN CELL VOLUME 79.5 FL (80.0-100.0); MEAN CORPUSCULAR HEMOGLOBIN 25.4 PG (27.0-34.0); MEAN PLATELET VOLUME 9.2 FL (7.0-11.0); MONO % 4.7 % (0.0-8.0); MONOCYTE # 1.2 TH/MM3 (0-0.9); NEUT % 85.8 % (16.0-70.0); PLATELET COUNT 211 TH/MM3 (150-450); RED BLOOD COUNT 4.23 MIL/MM3 (4.00-5.30); RED CELL DISTRIBUTION WIDTH 17.7 % (11.6-17.2)
[2017-11-07 06:36] LABS: ALBUMIN 2.7 GM/DL (3.4-5.0); ALKALINE PHOSPHATASE 65 U/L (45-117); ALT (GPT) 122 U/L (10-53); AST (GOT) 77 U/L (15-37); BICARBONATE 20.6 MEQ/L (21.0-32.0); BLOOD UREA NITROGEN 59 MG/DL (7-18); CHLORIDE 111 MEQ/L (98-107); CREATININE 1.81 MG/DL (0.50-1.00); GLOMERULAR FILTRATION RATE 28 ML/MIN (>89); GLUCOSE,RANDOM 172 MG/DL (74-106); MAGNESIUM 2.3 MG/DL (1.5-2.5); PHOSPHORUS 3.7 MG/DL (2.5-4.9); SODIUM (NA) 145 MEQ/L (136-145); TOTAL BILIRUBIN ADULT 1.4 MG/DL (0.2-1.0); TOTAL PROTEIN 6.5 GM/DL (6.4-8.2)
[2017-11-07] MEDS ORDERED: SODIUM PHOSPHATE INJ 30 MMOL in SODIUM CHLOR 0.9% 250 ML INJ 240 ML IV PRN (07:45)
[2017-11-07] MEDS ORDERED: POTASSIUM CHLORIDE 25 MEQ EFFERVESCENT TAB PO ONE (07:45)
[2017-11-07] MEDS ORDERED: POTASSIUM PHOSPHATE MONOBASIC 500 MG TAB PO PRN (07:45)
[2017-11-07] MEDS ORDERED: POTASSIUM PHOSPHATE INJ 30 MMOL in SODIUM CHLOR 0.9% 250 ML INJ 250 ML IV PRN (07:45)
[2017-11-07] MEDS ORDERED: MAGNESIUM SULFATE INJ 4 GM in SODIUM CHLORIDE 0.9% INJ 92 ML IV PRN (07:45)
[2017-11-07] MEDS ORDERED: POTASSIUM CHLOR 40 MEQ PREMIX 100 ML IV PRN (07:45)
[2017-11-07] MEDS ORDERED: POTASSIUM CHLORIDE 25 MEQ EFFERVESCENT TAB PO PRN (07:45)
[2017-11-07] MEDS ORDERED: MAGNESIUM SULFATE INJ 2 GM in SODIUM CHLORIDE 0.9% INJ 96 ML IV PRN (07:45)
[2017-11-07] MEDS ORDERED: POTASSIUM PHOSPHATE MONOBASIC 500 MG TAB PO/TUBE PRN (07:45)
[2017-11-07] MEDS ORDERED: MAGNESIUM OXIDE 400 MG TAB PO PRN (07:45)
--- NOTE | 2017-11-07 07:49 | PD.ONC.PN ---
Subjective Subjective Remarks Patient is now extubated. She is still lethargic. She is able to follow simple command. No bleeding noted. is at the bedside. Objective Data Date Time Temp Pulse Resp B/P (MAP) Pulse Ox O2 Delivery O2 Flow Rate FiO2 11/07/17 06:00 94 11/07/17 04:00 87 11/07/17 04:00 99.4 87 16 138/67 (90) 96 11/07/17 02:00 83 11/07/17 00:00 99.5 83 16 139/65 (89) 95 11/07/17 00:00 79 11/06/17 22:00 83 11/06/17 20:00 98.9 79 20 165/77 (106) 98 11/06/17 20:00 83 11/06/17 19:00 99 4.00 11/06/17 18:00 101 11/06/17 16:00 75 11/06/17 16:00 98.2 75 17 141/74 (96) 99 11/06/17 14:00 110 11/06/17 12:00 98.0 75 19 147/67 (93) 99 11/06/17 12:00 75 11/06/17 10:00 77 11/06/17 09:00 72 11/06/17 08:32 76 208/103 11/06/17 08:00 97.0 68 12 158/77 (104) 99 11/06/17 08:00 68 11/06/17 08:00 68 11/07/17 11/07/17 11/07/17 07:00 15:00 23:00 Intake Total 777 ml Output Total 1450 ml Balance -673 ml Result Diagram: 11/07/17 0500 11/07/17 0500 Laboratory Results Laboratory Tests Test 11/06/17 14:25 11/06/17 21:25 11/07/17 05:00 Activated Partial Thromboplast Time 41.4 SEC 40.2 SEC 44.6 SEC Ammonia 76 MCMOL/L White Blood Count 25.0 TH/MM3 Red Blood Count 4.23 MIL/MM3 Hemoglobin 10.8 GM/DL Hematocrit 33.6 % Mean Corpuscular Volume 79.5 FL Mean Corpuscular Hemoglobin 25.4 PG Mean Corpuscular Hemoglobin Concent 32.0 % Red Cell Distribution Width 17.7 % Platelet Count 211 TH/MM3 Mean Platelet Volume 9.2 FL Neutrophils (%) (Auto) 85.8 % Lymphocytes (%) (Auto) 8.8 % Monocytes (%) (Auto) 4.7 % Eosinophils (%) (Auto) 0.6 % Basophils (%) (Auto) 0.1 % Neutrophils # (Auto) 21.4 TH/MM3 Lymphocytes # (Auto) 2.2 TH/MM3 Monocytes # (Auto) 1.2 TH/MM3 Eosinophils # (Auto) 0.2 TH/MM3 Basophils # (Auto) 0.0 TH/MM3 CBC Comment AUTO DIFF Blood Urea Nitrogen 59 MG/DL Creatinine 1.81 MG/DL Random Glucose 172 MG/DL Total Protein 6.5 GM/DL Albumin 2.7 GM/DL Calcium Level 8.0 MG/DL Phosphorus Level 3.7 MG/DL Magnesium Level 2.3 MG/DL Alkaline Phosphatase 65 U/L Aspartate Amino Transf (AST/SGOT) 77 U/L Alanine Aminotransferase (ALT/SGPT) 122 U/L Total Bilirubin 1.4 MG/DL Sodium Level 145 MEQ/L Potassium Level 3.1 MEQ/L Chloride Level 111 MEQ/L Carbon Dioxide Level 20.6 MEQ/L Anion Gap 13 MEQ/L Estimat Glomerular Filtration Rate 28 ML/MIN Culture Results Microbiology Date/Time Source Procedure Growth Status 11/05/17 10:58 Sputum Endotracheal Gram Stain - Final Resulted 11/05/17 10:58 Sputum Endotracheal Sputum Culture - Preliminary NO GROWTH IN 24 HOURS. Resulted Administered Medications Medications (Trade) Dose Ordered Sig/Chiqui Route PRN Reason Start Time Stop Time Status Last Admin Dose Admin Amiodarone HCl (Cordarone) 200 mg DAILY PO 11/01/17 09:00 Future hold 11/06/17 08:26 Fluoxetine HCl (PROzac) 20 mg DAILY PO 11/01/17 09:00 11/05/17 08:39 Levothyroxine Sodium (Synthroid) 50 mcg DAILY@0600 PO 11/01/17 06:00 11/05/17 04:26 Pravastatin Sodium (Pravachol) 40 mg DAILY PO 11/01/17 09:00 11/05/17 08:39 Venlafaxine HCl (Effexor Xr) 75 mg DAILY PO 11/01/17 09:00 11/05/17 08:39 Sodium Chloride (NS Flush) 2 ml BID IV FLUSH 10/31/17 21:00 11/06/17 21:00 Acetaminophen (Tylenol) 650 mg Q4H PRN PO TEMP > 100.4 10/31/17 15:30 11/01/17 19:50 Senna/Docusate Sodium (Elsa-Colace) 1 tab BID PO 10/31/17 21:00 11/05/17 08:39 Sennosides (Senokot) 17.2 mg Q12H PRN PO Moderate constipation 10/31/17 15:30 11/04/17 08:19 Insulin Aspart (NovoLOG SUPPLEMENTAL SCALE) 1 ACHS SLIDING SCALE SQ 10/31/17 17:00 11/06/17 17:10 Ondansetron HCl (Zofran Odt) 4 mg Q6H PRN PO NAUSEA OR VOMITING 10/31/17 15:30 11/05/17 18:18 Miscellaneous Information ([facility] [place] Nursing Information) Patient in critical care unit? Ass... Q361D .XX 10/31/17 23:15 10/31/17 23:15 Heparin Sodium/ Dextrose 250 ml @ 10 mls/hr TITRATE PRN IV Coagulation Management 11/01/17 09:00 11/06/17 22:36 Albumin Human 50 ml @ 60 mls/hr Q12H IV 11/01/17 09:00 11/06/17 21:00 Cyanocobalamin (Vitamin B12 Inj) 1,000 mcg DAILY SQ 11/01/17 11:00 11/11/17 10:59 11/06/17 08:32 Acetaminophen/ Hydrocodone Bitart ([place] 5-325 Mg) 1 tab Q4H PRN PO PAIN GREATER THAN 5 11/01/17 13:15 11/01/17 20:59 Temazepam (Restoril) 15 mg HS PRN PO INSOMNIA 11/01/17 22:00 11/01/17 22:43 Chlorhexidine Gluconate (Peridex 0.12% Liq) 15 ml BID@08,20 MT 11/02/17 08:00 11/05/17 08:40 Vasopressin 40 units/Dextrose 100 ml @ 6 mls/hr [id number] IV 11/02/17 05:23 11/02/17 05:35 Ceftriaxone Sodium 2000 mg/ Sodium Chloride 100 ml @ 200 mls/hr Q24H IV 11/05/17 13:00 11/06/17 13:04 Labetalol HCl (Trandate Inj) 10 mg Q4H PRN IV PUSH SBP greater than 160mm Hg 11/05/17 10:45 11/06/17 18:48 Hydralazine HCl (Apresoline Inj) 20 mg Q4H PRN IV PUSH SYS BP GREATER THAN 160 MMHG 11/06/17 07:30 11/06/17 09:49 Lactulose (Lactulose Liq) 30 ml Q8H PO 11/06/17 09:00 11/06/17 17:10 Sodium Chloride 1,000 ml @ 50 mls/hr Q20H IV 11/06/17 08:00 11/06/17 08:31 Objective Remarks GENERAL: Well-nourished, well-developed patient. Lethargic. SKIN: Warm and dry. HEAD: Normocephalic. EYES: No scleral icterus. No injection or drainage. NECK: Supple, trachea midline. No JVD or lymphadenopathy. LYMPHATIC: No adenopathy. CARDIOVASCULAR: Regular rate and rhythm without murmurs. RESPIRATORY: Breath sounds equal bilaterally. No accessory muscle use. GASTROINTESTINAL: Abdomen soft, non-tender, nondistended. EXTREMITIES: No cyanosis, or edema. MUSCULOSKELETAL: Adequate muscle tone. NEUROLOGICAL: No obvious focal deficit. Awake but lethargic. She is oriented to place. Assessment/Plan Problem List: (1) Cancer, colon ICD Codes: C18.9 - Malignant neoplasm of colon, unspecified Status: Acute (2) Sepsis due to Gram-negative organism with septic shock ICD Codes: A41.50 - Gram-negative sepsis, unspecified; R65.21 - Severe sepsis with septic shock Status: Resolved (3) Pulmonary emboli ICD Codes: I26.99 - Other pulmonary embolism without acute cor pulmonale Status: Chronic Assessment 1. Septic shock due to urinary tract infection/pyelonephritis. She started having left back pain and increased weakness on . She had fever up to 103.4 when she came to the hospital. Blood culture grew E.Coli which is pansensitive. Repeat blood cultures now negative. 2. Leukocytosis due to urinary tract infection. She has 28% bandemia. Improving with abx. The persistent leukocytosis is due to steroid. 3. History of sigmoid colon adenocarcinoma, status post resection. Pathologic stage [id number]. She has high risk colon cancer. She completed adjuvant Xeloda 08/2016. Recent CT showed widespread sclerotic bone lesions; however, bone scan did not show any uptake. She has no significant bone pain. The lesion was too small for biopsy. She could not complete the PET/CT last week due to weakness. She will need a PET scan once discharged from the hospital for further evaluation. 4. History of pulmonary embolism developed when she was admitted to the hospital last year with sepsis. She was on Xarelto. Her V/Q scan showed low probability for pulmonary embolism. She is now on heparin due to acute renal failure. No bleeding noted. 5. Acute renal failure likely due to ATN secondary to septic shock. Improving. 6. Anemia due to the sepsis and renal failure. She also had mild thrombocytopenia. She likely has a low-grade consumptive process. Platelet trended back up to normal. Hgb stable, no bleeding noted. Plan PLAN: 1. Discussed with the patient's . 2. Continue supportive care. 3. Continue heparin, can switch back to Xarelto once her renal function improved. 4. Outpatient PET scan. Sly Candelario MD November 07, 2017 07:49
--- NOTE | 2017-11-07 07:52 | HHI.CCPN ---
Subjective Remarks/Hospital Course 72-year-old female with a medical history significant for colon cancer, hypertension, hyperlipidemia, atrial fibrillation status post previous ablation , type 2 diabetes mellitus who presented to the ER with generalized weakness and was hypotensive on arrival. She was diagnosed to have a UTI/sepsis. She received 4 L fluids in the ER with systolic blood pressure coming up to the 90s however was tachycardic with heart rate going up to 130s atrial fibrillation. She had a negligible urine output despite 4 L IV fluids and an elevated lactic acid with concern for severe sepsis and acute kidney injury. Patient was admitted by family medicine service and critical care consult was requested by ER physician. I evaluated the patient in the ER. At that time she was on 2 L nasal cannula maintaining O2 sats around 98%. Her systolic blood pressure was in the mid 90 range. She was in atrial fibrillation with heart rate ranging from 110-120s. Patient was awake and alert at the time of my evaluation and was following commands appropriately. She denied any worsening shortness of breath or chest pain at the time. She did have some abdominal discomfort. She appeared slightly tachypneic. She had already received empiric antibiotic coverage. History was obtained by discussion with , ER physician, family medicine residents and review of records. Patient has reportedly not had anything to eat or drink for 30 hours prior to admission. She has been having burning with urination over the past 2 days. Patient had a head CT which was unremarkable, CT abdomen pelvis revealed moderate hydronephrosis, VQ scan was low probability for PE. 11/01: Patient appears critical, tachypneic. Urine output marginal 200 mL overnight shift time. Blood cultures 4 out of 4 bottles positive for gram- negative rods. Currently on 40 mcg/min of Raymond-Synephrine. Remaisn in A fib with RVR. Will start Amiodarone gtt, attempt rate control/cardioverted. Previous echo done last year shows EF 55-60%, moderate mitral stenosis, mild to moderate aortic stenosis, moderate TR, also will hold Xarelto start IV heparin 11/02: Patient remains very critically ill and septic shock now in respiratory failure. Overnight required intubation for tachypnea and respiratory distress. Received a dose of tobramycin Sensitivities are pending for E. coli. White count has dropped to 2.1 creatinine is 2.12 today. Will discontinue Zosyn and start renally dosed meropenem. Remains on amiodarone infusion heart rate slightly better controlled. Raymond-Synephrine just weaned off, but currently patient is hypotensive with maps 61 11/03: Remains very critical. Failed CPAP trials. Off pressors but urine output is decreasing creatinine has increased BUN 59/creatinine 3.36. WBC count elevated to 20.3 with a 22% bands. E. coli is pansensitive DC meropenem and start Rocephin. 11/04: Remains sedated, orally intubated on mechanical ventilation. On Levophed 2 mics per minute for hypotension. Failed CPAP trial yesterday. 11/05: Arousable off sedation. On mechanical ventilation. Daily CPAP trials ongoing. 11/06: Extubated yesterday, weak but breathing comfortably. Hypertensive. WBC 22.2, but clinically improving, possibly steroid induced. Will DC Hydrocortisone 11/07. Patient remains encephalopathy. But moving all extremities appears to be protecting airway. States of few words. But did not open eyes. WBC is 25.6. BUN 49 creatinine 1.81 urine output 1.6 L. Ammonia level was 71 yesterday, lactulose changed to scheduled. Had 2 bowel movements overnight repeat ammonia today. Remains hypotensive, insert NG tube for medication and nutrition. Start scheduled metoprolol 25 every 8 hours Objective Vital Signs Date Time Temp Pulse Resp B/P (MAP) Pulse Ox O2 Delivery O2 Flow Rate FiO2 11/07/17 04:00 87 11/07/17 04:00 99.4 16 138/67 (90) 96 11/06/17 19:00 4.00 11/06/17 03:12 Nasal Cannula 11/05/17 09:37 40 Intake and Output 11/07/17 11/07/17 11/08/17 08:00 16:00 00:00 Intake Total 777 ml Output Total 1450 ml Balance -673 ml Result Diagram: 11/07/17 0500 11/07/17 0500 Imaging Last 48 hours Impressions Chest X-Ray 11/03/17 0600 Signed Impressions: Service Date/Time: Friday, November 03, 2017 04:01 - CONCLUSION: No significant change. Robe Menchaca MD Last Impressions Head CT 10/31/17 1321 Signed Impressions: Service Date/Time: October 14:02 - CONCLUSION: 1. No acute intracranial findings. Left sphenoid sinusitis. Remote lacunar infarct right frontal white matter. Samuel Lin MD Abdomen/Pelvis CT 10/31/17 1321 Signed Impressions: Service Date/Time: October 13:58 - CONCLUSION: 1. Development of innumerable small sclerotic lesions in the skeleton most characteristic of sclerotic bony metastatic disease. There is a reported history of malignancy. 2. Hepatomegaly with development of mild ascites. 3. Persistent moderate hydronephrosis with perinephric stranding similar to February 2017. Interval development of mild anasarca. 4. Gallbladder sludge. Gallo catheter in bladder. Samuel Lin MD Lung Scan-V Nuclear Medicine 10/31/17 0000 Signed Impressions: Service Date/Time: October 15:00 - CONCLUSION: Low probability scan for pulmonary embolism Jose Wright MD Chest X-Ray 10/31/17 0000 Signed Impressions: Service Date/Time: October 12:24 - CONCLUSION: No acute disease. Heart size appears enlarged. Jose Pablo MD Objective Remarks Gen: 72-year-old critically ill female who is lying on bed, lethargic somnolent HEENT: No pallor or icterus Neck: No JVD Chest/pulmonary: Air entry equal bilaterally, slightly diminished at the bases Cardiovascular: Sinus rhythm now, no gallop or murmur. GI/abdomen: Soft, no tenderness, bowel sounds present. Distended, no rebound Extremities: Warm bilaterally, trace edema Neuro: Somnolent. Moves all 4 extremities no focal deficit. She can state a few words but did not open eyes. A/P Assessment and Plan 72-year-old female with: ASSESSMENT: Acute metabolic encephalopathy Hyperammonemia Severe sepsis Acute respiratory failure-extubated 11/05/17 Acute kidney failure/ATN Atrial fibrillation with RVR, now NSR E Coli bacteremia/UTI with E. coli Lactic acidosis Elevated liver enzymes Moderate hydronephrosis Chronic atrial fibrillation Moderate mitral stenosis, mild to moderate aortic stenosis, moderate tricuspid regurgitation History of pulmonary embolism Colon cancer with suspected metastatic disease Vitamin B12 deficiency Diabetes Type 2 - on insulin h/o Hypertension Hyperlipidemia Depression Hypothyroidism h/o CVA h/o PE (03/2017) h/o Pyelo/PNA (03/2017 requiring intubation) PLAN: Neuro: -Off all sedation -Continue lactulose, repeat ammonia level -PT/OT speech Cardiovascular: -Hypertensive now, use labetalol and hydralazine IV as needed. Also on clonidine as needed -Start scheduled metoprolol 25 p.o. every 8 hours -Discontinued stress dose steroids 11/06 -On IV amiodarone since 11/01. Transitioned to p.o. amiodarone 11/06 -IV digoxin as needed -Holding Xarelto for anticoagulation, Continue IV heparin -Need rate control due to moderate mitral stenosis and mild to moderate aortic stenosis, currently NSR Pulmonary: -Intubated 11/01/17 for acute respiratory failure, extubated 11/05/17 -Check ABG chest x-ray today due to worsening mental status -DuoNeb every 6 hours and as needed -EzPAP, Acapella, IS, as tolerated GI/liver: -Pepcid for GI prophylaxis. Insert NGT p.o. meds and nutrition -Start tube feedings with Jevity after getting US liver rule out cholecystitis Renal/: -Gallo catheter. Strict intake output, monitor and replete electrolytes, follow BUN/creatinine. -Nephrology following. Urine output is adequate. Creatinine improving 1.81 today -Urology consulted in the setting of moderate hydronephrosis with renal failure , did not recommend stent placement ID: -Continue Rocephin, E. coli is pansensitive. Check C. difficile, check ultrasound of the liver -1 dose of tobramycin given overnight on 11/01 prior to cultures stu available -Blood and urine culture pansensitive E. coli -ID following Heme-onc: -Dr. Candelario following for history of colon cancer in suspected metastatic lesions on CT abdomen pelvis. -Need PET scan when stable Endocrine: -SSI for glycemic control. -Vitamin B12 level is low.vitamin B12 injections 1000 mcg IM daily for 10 days then monthly Prophylaxis: -Pepcid/SCDs. Holding Xarelto, continue IV heparin (IV heparin for Andrew. fib, also for history of pulmonary embolism last year, she is high risk due to underlying malignancy) Access: -Has peripheral IVs and port. Central line if needed Patient's condition is critical worsening encephalopathy is now concerning for ongoing or worsening sepsis. Patient may further decompensate and may require mechanical ventilatory support. Further workup with ultrasound abdomen and C. difficile testing pending Discussed current clinical status with patient's at bedside including plan of care and he voiced understanding and was agreeable. CCT 35 MIN Jan Garcia MD November 07, 2017 07:52
[2017-11-07] MEDS: CHLORHEXIDINE 0.12% (ORAL KIT) 15 ML CUP MT SCH ×2 (08:00→20:03)
--- NOTE | 2017-11-07 08:44 | RADRPT ---
EXAM DATE/TIME: 11/07/2017 07:53 [facility] COMPARISON: CHEST SINGLE AP, November 03, 2017, 4:01. INDICATIONS : Short of breath MEDICAL HISTORY : Hypertension. Carcinoma, colon. A-fib, diabetic SURGICAL HISTORY : Colon resection. ENCOUNTER: Subsequent ACUITY: 4 - 6 days PAIN SCORE: Non-responsive. LOCATION: Bilateral chest FINDINGS: A single view of the chest demonstrates interval removal of the endotracheal and nasogastric tubes. R ight IJ [id number] catheter is stable in position. Heart size is borderline. Persistent interstiti al prominence with bibasilar airspace disease and associated effusions. This appears slightly worse, particularly on the left. CONCLUSION: 1. Persistent interstitial prominence with bibasilar airspace disease/effusions. Slight interval wors ening particularly on the left suggesting worsening volume overload/vascular congestion. 2. Interval removal of the endotracheal and nasogastric tubes. Jj Alvarez MD on November 07, 2017 at 8:40 Board Certified Radiologist. This report was verified electronically.
[2017-11-07] MEDS: PRAVASTATIN SOD 40 MG TAB PO SCH (08:54)
[2017-11-07] MEDS: AMIODARONE 200 MG TAB PO SCH (08:54)
[2017-11-07] MEDS: VENLAFAXINE HCL XR 75 MG CAP PO SCH (08:54)
[2017-11-07] MEDS: FLUoxetine HCL 20 MG CAP PO SCH (08:54)
[2017-11-07] MEDS: DOCUSATE SODIUM 50 MG/SENNA 8.6 MG TAB PO SCH ×2 (08:54→20:04)
[2017-11-07 08:58] LABS: BANDS 11 % (0-6); CORRECTED NUCLEATED RBC 1 /100 WBC (0-0); LYMPHOCYTES 7 % (9-44); METAMYELOCYTES 4 % (0-1); MONOCYTES 7 % (0-8); MYELOCYTES 6 % (0-0); NEUTROPHIL # MANUAL DIFF 21.5 TH/MM3 (1.8-7.7); NUCLEATED RED BLOOD CELL 1 (0-0); POLYS (SEG NEUTROPHILS) 64 % (16-70); PROMYELOCYTES 1 % (0-0)
[2017-11-07 08:59] LABS: POLYCHROMASIA 2.5 % (0.0-1.9); TEARDROP RBCS 1+ (NORMAL); TOXIC GRANULATION 1+ (NORMAL)
[2017-11-07] MEDS: INSULIN ASPART SUPPLEMENTAL SCALE SQ SCH ×4 (09:03→20:05)
--- NOTE | 2017-11-07 09:03 | RADRPT ---
EXAM DATE/TIME: 11/07/2017 08:05 [facility] COMPARISON: CT ABDOMEN & PELVIS W/O CONTRAST, October 31, 2017, 13:58. EXTERNAL COMPARISON : [facility], CT ABDOMEN & PELVIS W/CONTRAST, August 02, 2017, September 24, 2016, February 08, 2016, PET/CT TUMOR, February 24, 2016. INDICATIONS : Elevated liver enzymes. MEDICAL HISTORY : Carcinoma, colon. Thyroid disease. TIA x2. Cerebral hemorrhage. AFib. Dysuria. Diabetes. Measles .Anticoagulant therapy. SURGICAL HISTORY : Colon resection. section. Hernia repair. Oopherectomy. Chemotherapy. Blood transfusions. ENCOUNTER: Initial ACUITY: 1 day PAIN SCORE: Nonresponsive. LOCATION: Bilateral upper quadrant MEASUREMENTS: LIVER: 14.2 cm length COMMON DUCT: 6 mm RIGHT KIDNEY: 14.8 x 8.0 x cm SPLEEN: 16.0 cm length FINDINGS: LIVER: The liver demonstrates heterogeneous echogenicity with nodular borders suggestive of hepatocellular d isease such as cirrhosis. There is some free fluid surrounding the liver. The portal system is patent . COMMON DUCT: No intraluminal mass or stone visualized. GALLBLADDER: There is some sludge in the gallbladder. No definite stones. No significant thickening of the gallbla dder wall. PANCREAS: The visualized portions are within normal limits. RIGHT KIDNEY: There is some hydronephrosis the right kidney. As present on the recent prior CT scan of the abdomen. SPLEEN: No focal lesion. The CONCLUSION: 1. Heterogeneous liver suggestive of hepatocellular disease such as cirrhosis. There is a small amoun t of ascites surrounding the liver. This is not significantly changed compared to the recent CT scan of the abdomen. 2. Sludge in the gallbladder. No definite gallstones or biliary tract obstruction. 3. Mild splenomegaly. 4. Mild hydronephrosis of the right collecting system. Markie Crabtree MD on November 07, 2017 at 8:56 Board Certified Radiologist. This report was verified electronically.
[2017-11-07] MEDS: ALBUMIN 25% INJ 50 ML IV SCH ×2 (09:05→20:04)
[2017-11-07] MEDS: CYANOCOBALAMIN 1000 MCG/ML VIAL SQ SCH (09:05)
[2017-11-07] MEDS: SODIUM CHLORIDE 0.9% FLUSH 10 ML FLUSH IV FLUSH SCH ×2 (09:05→20:04)
[2017-11-07] MEDS: METOPROLOL TARTRATE 25 MG TAB PO SCH ×3 (09:12→20:04)
--- NOTE | 2017-11-07 10:10 | HHI.FPPN ---
Subjective Remarks Mrs. Marroquin was afebrile with stable vital signs overnight; she has had intermittent HTN to MAP's in low 100's). 3100ml output overnight per EMR. Patient was accompanied by her who has been with her frequently; he reports no significant changes in her mental status. She had 3 BM overnight. Patient answers simple questions with yes/no answers but does not appear to be oriented in her responses. (Oscar Santos MD R3) Objective Vitals Vital Signs Date Time Temp Pulse Resp B/P (MAP) Pulse Ox O2 Delivery O2 Flow Rate FiO2 11/07/17 06:00 94 11/07/17 04:00 87 11/07/17 04:00 99.4 87 16 138/67 (90) 96 11/07/17 02:03 94 11/07/17 02:00 83 11/07/17 00:00 99.5 83 16 139/65 (89) 95 11/07/17 00:00 79 11/06/17 22:00 83 11/06/17 20:00 98.9 79 20 165/77 (106) 98 11/06/17 20:00 83 11/06/17 19:00 99 4.00 11/06/17 18:00 101 11/06/17 16:00 75 11/06/17 16:00 98.2 75 17 141/74 (96) 99 11/06/17 14:00 110 11/06/17 12:00 98.0 75 19 147/67 (93) 99 11/06/17 12:00 75 I/O 11/06/17 11/06/17 11/06/17 11/07/17 11/07/17 11/07/17 07:00 15:00 23:00 07:00 15:00 23:00 Intake Total 1460 ml 1400 ml 552.3 ml 777 ml Output Total 1600 ml 1650 ml 1450 ml Balance -140 ml 1400 ml -1097.7 ml -673 ml Intake Oral 60 ml IV Total 1460 ml 1400 ml 492.3 ml 777 ml Output Urine Total 1600 ml 1650 ml 1450 ml # Bowel Movements 2 1 (Oscar Santos MD R3) Result Diagram: 11/07/17 0500 11/07/17 0500 Imaging Last Impressions Liver Ultrasound 11/07/17 0000 Signed Impressions: Service Date/Time: October 08:05 - CONCLUSION: 1. Heterogeneous liver suggestive of hepatocellular disease such as cirrhosis. There is a small amount of ascites surrounding the liver. This is not significantly changed compared to the recent CT scan of the abdomen. 2. Sludge in the gallbladder. No definite gallstones or biliary tract obstruction. 3. Mild splenomegaly. 4. Mild hydronephrosis of the right collecting system. Markie Crabtree MD Chest X-Ray 11/07/17 0000 Signed Impressions: Service Date/Time: October 07:53 - CONCLUSION: 1. Persistent interstitial prominence with bibasilar airspace disease/effusions. Slight interval worsening particularly on the left suggesting worsening volume overload/vascular congestion. 2. Interval removal of the endotracheal and nasogastric tubes. Jj Alvarez MD Head CT 11/06/17 0000 Signed Impressions: Service Date/Time: Monday, November 06, 2017 10:03 - CONCLUSION: 1. No acute intracranial abnormality or significant interval change. César Coats MD Abdomen X-Ray 11/04/17 0000 Signed Impressions: Service Date/Time: Saturday, November 04, 2017 17:50 - CONCLUSION: Nonspecific intestinal gas pattern Jose Wright MD Abdomen/Pelvis CT 10/31/17 1321 Signed Impressions: Service Date/Time: October 13:58 - CONCLUSION: 1. Development of innumerable small sclerotic lesions in the skeleton most characteristic of sclerotic bony metastatic disease. There is a reported history of malignancy. 2. Hepatomegaly with development of mild ascites. 3. Persistent moderate hydronephrosis with perinephric stranding similar to February 2017. Interval development of mild anasarca. 4. Gallbladder sludge. Jacobsen catheter in bladder. Samuel Lin MD Lung Scan- Nuclear Medicine 10/31/17 0000 Signed Impressions: Service Date/Time: October 15:00 - CONCLUSION: Low probability scan for pulmonary embolism Jose Wright MD Objective Remarks GENERAL: This is a well-nourished, well-developed patient, on ventilator and sedation. SKIN: No rashes, ecchymoses or lesions. Cool and dry. EYES: No conjunctival injection. PERRLA; symmetrical. Patient did not follow with eyes to assess EOM ENT: Nose without bleeding or purulent drainage. Airway patent. NECK: Trachea midline. CARDIOVASCULAR: Normal rate and rhythm. Normal distal LE perfusion bilaterally RESPIRATORY: Normal rate. No focal congestion or wheezing to auscultation GASTROINTESTINAL: Abdomen soft, distended. Normal bowel sounds. MUSCULOSKELETAL: No calf asymmetry or pain to palpation NEUROLOGICAL: Patient would respond to verbal questions with yes/no answers but did not seem oriented. Patient would follow commands such as squeezing toes. No focal deficits observed but peripheral motor/sensory function assessment limited by lack of alertness/orientation (Oscar Santos MD R3) A/P Assessment and Plan Patient is a 72-year-old admitted due to septic shock from urinary source; patient also with sclerotic bony lesions concerning for colon cancer metastasis. Due to respiratory decline/multiorgan failure, patient on ventilator since . Critical care, Nephrology, and infectious disease consulted. Patient extubated 11/05; has had altered mental status since extubation Discharge Planning Prognosis unclear at this time Patient remains on ventilator Critical Care managing at this time, appreciate care of patient Notably asserts patient is full code (Oscar Santos MD R3) Attending Attestation Patient seen and examined. Discussed with Dr. Santos. Agree with assessment and plan as documented. (Prevatte,Kin Phelps Jr., MD) Problem List: (1) Sepsis ICD Codes: A41.9 - Sepsis, unspecified organism Status: Acute Plan: Impression: Septic shock on admission; labs suggestive of multiorgan dysfunction. Patient with low MAP despite 4 L IVF Patient placed on Phenylephrine. Patient developed respiratory failure and required intubation Labs: Cr: 2.10 (10/31)-> 3.53 (11/04) -> 2.84 (11/05) -> 2.29-> 1.81 (11/07) WBC: 15.8 (10/31)-> 2.1 (11/02)-> 20.3 (11/03) -> 17.7 (11/04) -> 22.2 (11/06) -> 25 (11/07) Lactic acid: 3 (10/31) -> 3.3 (11/02) -Critical care consulted -Continue antibiotic therapy -Infectious disease consulted -Start Cefepime 2gm q8hrs; stop Rocephin -Nephrology consulted -Continue to monitor CBC, BMP, urine output -Continue to monitor VS; pressors discontinued and intermittent HTN Antibiotic history: s/p Meropenem 2gm q12hrs IV -s/p Zosyn 2.5mg q6hrs (10/31-11/02) -s/p Tobramycin IV x1 11/02 -s/p Rocephin 11/03-11/06 Cultures: 11/05 -Sputum culture negative x48hrs 10/31- blood x2 taylor sensitive E Coli 10/31- urine- taylor sensitive E coli 11/02- blood x2- negative x5 days (2) Altered mental state ICD Codes: R41.82 - Altered mental status, unspecified Status: Acute Plan: Impression: Persistent lack of orientation after extubation 11/05. No focal deficits. History of TIA. On Heparin anticoagulation CT head on admission (ordered due to confusion on admission; suspected secondary to sepsis) w/o acute findings. Remote lacunar infarct in right frontal white matter Repeat head CT 11/06 without acute intracranial abnormality Labs: Leukocytosis. Some hypocalcemia. Normal sodium. Ammonia 76 11/06 LFT elevations- persistent TBILI mild elevation (~1.4), mild AST and ALT elevations, normal ALKP ABG 11/07- pH 7.34, CO2 37, HCO3 20 -Continue management per Critical care; suspect multifactorial. off of sedation since extubation. Suspect possible hepatic encephalopathy as component -Continue Lactulose TID -Monitor lactulose -Supportive care; monitor labs -Tube feeds with Jevity due to altered mental status (3) ASH (acute kidney injury) ICD Codes: N17.9 - Acute kidney failure, unspecified Status: Acute Plan: 11/07: Cr improved (2.84 11/05-> 2.29 11/06-> 1.81 11/07). 3100ml output overnight Impression: renal injury presumed secondary to septic shock/multiorgan dysfunction Cr- 2.12 on admission-> 2.59 (11/02) -> 3.53 (11/04) -> downtending CT abdomen/pelvis- moderate hydronephrosis w/ perinephric stranding similar to . Interval development of mild anasarca. -Continue to monitor urine output w/ jacobsen -Nephrology consulted -Continue IVF (100ml/hr NS, Albumin), antibiotics -Continue to monitor urine output/BMP -Ca replacement -Urology consulted for hydronephrosis -Continue Jacobsen, antibiotics -Do not suspect obstruction; do not recommend stent placement -Recommend renal US next week (4) Elevated LFTs ICD Codes: R79.89 - Other specified abnormal findings of blood chemistry Status: Acute Plan: Impression: Patient with normal LFT's on admission-> mild transaminase elevations: (11/02- TBILI 1.7, AST 122, ALT 62, ALKP 54 -> 11/07- TBILI 1.4, AST 77, ALT 122, ALKP65) Suspect likely related to sepsis/organ injury -Continue to monitor LFT's -Liver US per CC- heterogenous liver suggestive of hepatocellular disease such as cirrhosis. Small ascites; not recently changed since last CT. Sludge in gallbladder; no definite gallstones. Mild splenomegaly. Mild hydronephrosis -Ceftriaxone stopped per ID (5) Respiratory failure, acute ICD Codes: J96.00 - Acute respiratory failure, unspecified whether with hypoxia or hypercapnia Status: Resolved Plan: Impression: Patient intubated 11/02 for tachypnea and respiratory distress ; ABG 11/02 with pH 7.18, CO2 52. 11/03- failed CPAP trials. CXR with persistent hazy opacities at bases 11/04- Remains on ventilator, sedated. 11/05- Extubated 11/06- stable respirations while extubated 11/07- O2 sats >95% on 3 L O2 via NC ABG- pH 7.34, CO2 37, HCO3 20 -Continue management per Critical care -Duonebs q6hrs as needed -Stopped Hydrocortisone 100mg IV q8hrs 11/06 (6) UTI (urinary tract infection) ICD Codes: N39.0 - Urinary tract infection, site not specified Plan: Impression: UA with large leukocyte esterase, innumerable WBCs, many WBC clumps Urine culture and blood cultures 10/31 with pansensitive E Coli -Management as above for sepsis (7) Hypertension ICD Codes: I10 - Essential (primary) hypertension Status: Chronic Plan: 11/07- persistent HTN Impression: PMH HTN. Initial hypotension on admission w/ septic shock. Now intermittent hypertension based on agitation/sedation -Continue to monitor; management per CC -Start Metoprolol 25mg q8 hrs -Hydralazine 20mg IV q4hrs PRN -Clonidine 0.2mg PRN -Labetalol 10mg IV q4hrs PRN (8) Atrial fibrillation ICD Codes: I48.91 - Unspecified atrial fibrillation Status: Chronic Plan: Impression: patient placed on amiodarone drip and given digoxin for afib with RVR on admission. Patient currently with normal rate/sinus rhythm. Patient with reported history of moderate mitral stenosis and mild/moderate aortic stenosis Echocardiogram- moderate concentric LVF. EF 70%. Aortic sclerosis present. Moderate /severe pulmonary HTN (60-70mmHg) Initially placed on heparin drip-> PO Amiodarone; currently on hold with sinus rhythm -Continue telemetry/monitoring VS -Continue IV heparin; plan to transition to Xarelto once normal renal function -Continue amiodarone as needed. 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 [id number]. s/p Zeloda 08/2016. Abdomen/Pelvis CT 10/31/17: Innumerable small sclerotic lesions in the skeleton, most characteristic of sclerotic bony metastatic disease -Dr. Candelario consulted -recent bone scan w/o uptake; reassuring regarding sclerotic lesions -plan for PET as outpatient -Continue heparin, treatment for sepsis (10) Weakness ICD Codes: R53.1 - Weakness Status: Acute Plan: -PT consulted; will evaluate once extubated/improving (11) Diabetes mellitus, type II ICD Codes: E11.9 - Type 2 diabetes mellitus Status: Chronic Plan: Will hold home medications -Low dose SSI, per Critical Care protocol -Continue to monitor blood sugar (12) Hypothyroidism ICD Codes: E03.9 - Hypothyroidism Status: Chronic Plan: Continue home Levothyroxine (13) FEN/PPX Plan: Fluid: Fluid per landscape maintenance internship -50ml/hr NS -Albumin 25% q12 hrs Electrolytes: Continue to monitor; replacement per protocol Nutrition: Tube feeds with Jevity DVT PPX: Per CC, on heparin gtt at this time (Oscar Santos MD R3) Problem Qualifiers (1) Sepsis: Qualified Codes: A41.9 - Sepsis, unspecified organism (2) UTI (urinary tract infection): (3) Hypertension: Qualified Codes: I10 - Essential (primary) hypertension (4) Atrial fibrillation: Qualified Codes: I48.2 - Chronic atrial fibrillation Oscar Santos MD R3 November 07, 2017 10:10 Kin Ojeda Jr., MD November 07, 2017 14:51
--- NOTE | 2017-11-07 10:10 | HHI.NPPN ---
Subjective General Problems: Anemia, Edema, Hypotension, Mebatolic Acidosis Renal Failure: Acute History of Present Illness 72-year-old female with past medical history of hypertension, diabetes mellitus, hyperlipidemia, atrial fibrillation, history of colon cancer, history of acute kidney injury in the past. She was admitted with complaint of worsening shortness of breath and recurrent falls. I was called to see the patient because of elevated BUN and creatinine. The patient was seen by me when she was here in February of last year. At that time, she also has acute kidney injury and her creatinine was as high as 1.8, but it was improving and it went down to 0.6-0.7 which is her baseline. Additional Remarks Minimally responsive. Creatinine improving at 1.81 from 2.25 today. Good urinary output. (Nataly Ramos) Review of Systems General General Remarks Not able to do review of system secondary to mental status. (Nataly Ramos) Objective Data Data Vital Signs Date Time Temp Pulse Resp B/P (MAP) Pulse Ox O2 Delivery O2 Flow Rate FiO2 11/07/17 06:00 94 11/07/17 04:00 87 11/07/17 04:00 99.4 87 16 138/67 (90) 96 11/07/17 02:03 94 11/07/17 02:00 83 11/07/17 00:00 99.5 83 16 139/65 (89) 95 11/07/17 00:00 79 11/06/17 22:00 83 11/06/17 20:00 98.9 79 20 165/77 (106) 98 11/06/17 20:00 83 11/06/17 19:00 99 4.00 11/06/17 18:00 101 11/06/17 16:00 75 11/06/17 16:00 98.2 75 17 141/74 (96) 99 11/06/17 14:00 110 11/06/17 12:00 98.0 75 19 147/67 (93) 99 11/06/17 12:00 75 (Nataly Ramos) -: 11/07/17 0500 11/07/17 0500 Imaging Last Impressions Liver Ultrasound 11/07/17 0000 Signed Impressions: Service Date/Time: October 08:05 - CONCLUSION: 1. Heterogeneous liver suggestive of hepatocellular disease such as cirrhosis. There is a small amount of ascites surrounding the liver. This is not significantly changed compared to the recent CT scan of the abdomen. 2. Sludge in the gallbladder. No definite gallstones or biliary tract obstruction. 3. Mild splenomegaly. 4. Mild hydronephrosis of the right collecting system. Markie Crabtree MD Chest X-Ray 11/07/17 0000 Signed Impressions: Service Date/Time: October 07:53 - CONCLUSION: 1. Persistent interstitial prominence with bibasilar airspace disease/effusions. Slight interval worsening particularly on the left suggesting worsening volume overload/vascular congestion. 2. Interval removal of the endotracheal and nasogastric tubes. Jj Alvarez MD Head CT 11/06/17 0000 Signed Impressions: Service Date/Time: Monday, November 06, 2017 10:03 - CONCLUSION: 1. No acute intracranial abnormality or significant interval change. César Coats MD Abdomen X-Ray 11/04/17 0000 Signed Impressions: Service Date/Time: Saturday, November 04, 2017 17:50 - CONCLUSION: Nonspecific intestinal gas pattern Jose Wright MD Abdomen/Pelvis CT 10/31/17 1321 Signed Impressions: Service Date/Time: October 13:58 - CONCLUSION: 1. Development of innumerable small sclerotic lesions in the skeleton most characteristic of sclerotic bony metastatic disease. There is a reported history of malignancy. 2. Hepatomegaly with development of mild ascites. 3. Persistent moderate hydronephrosis with perinephric stranding similar to February 2017. Interval development of mild anasarca. 4. Gallbladder sludge. Gallo catheter in bladder. Samuel Lin MD Lung Scan-V Nuclear Medicine 10/31/17 0000 Signed Impressions: Service Date/Time: October 15:00 - CONCLUSION: Low probability scan for pulmonary embolism Jose Wright MD Tubes & Lines: Gallo (Nataly Ramos) Physical Exam Eyes Eye Exam: Pupils Equal (Nataly Ramos) Throat Throat Exam: Oral Mucosa [place] & Moist (Nataly Ramos) Neck Neck Exam: Neck Supple (Nataly Rmaos) Pulmonary Resp Exam: Rhonchi, Sputum, Decreased Bases, Diminished Breath Sounds, Poor Inspiratory Effort (Nataly Ramos) Cardiology CV Exam: Irregular (Nataly Ramos) Gastrointestinal/Abdomen GI Exam: Soft, Non-Tender, Bowel Sounds Present, Distended (Nataly Ramos) Extremeties Extremities Exam: Moderate Edema, Pitting Edema, Dependent Edema (Nataly Ramos) Neurologic Neuro Remarks lethargic (Nataly Ramos) Assessment/Plan Assessment Summary: ASH/Acute Renal Failure Problem List: (1) Diabetes mellitus, type II ICD Codes: E11.9 - Type 2 diabetes mellitus Status: Chronic (2) PNA (pneumonia) ICD Codes: J18.9 - Pneumonia, unspecified organism Status: Acute (3) Hypothyroidism ICD Codes: E03.9 - Hypothyroidism Status: Chronic (4) Atrial fibrillation ICD Codes: I48.91 - Unspecified atrial fibrillation Status: Chronic (5) Acute kidney failure ICD Codes: N17.9 - Acute kidney failure, unspecified (6) UTI (urinary tract infection) ICD Codes: N39.0 - Urinary tract infection, site not specified (7) Sepsis due to Gram-negative organism with septic shock ICD Codes: A41.50 - Gram-negative sepsis, unspecified; R65.21 - Severe sepsis with septic shock Status: Resolved Plan Patient has chronic kidney disease and develop ASH. Creatinine improving at 1.81 from 2.29 today. Urinary output at 3.1 L/24 hours Has elevated liver enzymes scheduled lactulose Hypokalemia replacement ordered BP is stable. Continue antibiotics. Avoid Nephrotoxins, and follow the BMP. (Nataly Ramos) Plan Patient seen and examined, agree with above. Creatinine is improving. (Aixa Figueroa MD) Problem Qualifiers (1) Atrial fibrillation: Qualified Codes: I48.2 - Chronic atrial fibrillation (2) UTI (urinary tract infection): Nataly Ramos November 07, 2017 10:09 Aixa Figueroa MD November 11, 2017 19:06
--- NOTE | 2017-11-07 10:13 | HHI.IDPN ---
Subjective Subjective Remarks Ms. Marroquin is a 72-year-old female with past medical history significant for colon cancer with reported history of spots on her vertebrae. Patient's spouse reports that she was scheduled to have a PET scan but could not complete it as she was extremely weak. Dr. Vargas is her oncologist and is following her. Her past medical history is also significant for hypertension hyperlipidemia, atrial fibrillation status post previous ablation, type 2 diabetes. With this background patient presents to the emergency department with generalized weakness as well as hypotensive upon arrival. She was diagnosed with possible UTI sepsis. She received 4 L of IV fluids in the emergency room and her blood pressure improved to 690s systolic. But she continued to be in atrial fibrillation with heart rate in 130s. She had a negligible urine output despite 4 L IV fluids and elevated lactic acid remains a concern. Sepsis workup was initiated and patient was started on empiric IV antibiotics for presumed UTI related sepsis. Per review of records it appears that patient reportedly did not eat or drink for 30 hours prior to admission and was having burning with urination approximately 2 days prior to admission. CT of the head was done which was unremarkable a CT of the abdomen pelvis showed moderate hydronephrosis as well as several spots as mentioned in the report concerning for malignancy related metastases. Oncology Dr. Vargas is following the patient. A VQ scan was done which showed low probability of PE. Blood cultures done on admission are positive for E. coli as well as her urine culture was also positive for E. coli. Patient has been treated with ceftriaxone and has been clinically improved. Repeat blood cultures are negative so far. Urology has seen the patient and there is no plan for placement of stent. This appears to be hydronephrosis with stranding around the kidney suggestive of pyelonephritis. Infectious diseases consulted for evaluation and management of sepsis, E. coli bacteremia and E. coli pyelonephritis. Overnight events reviewed no fevers no rash No diarrhea. After lactulose had 3 BMs. extubated. On room air sats 98% Leucocytosis but on steroids. Stopped 11/06/2017. UO good. Lethargic. CT head negative. Swallow eval passed. Per ate some food. US liver with cirrhosis, mild hydronephrosis. Ammonia mildly elevated. Antibiotics Ceftriaxone IV Lines Port site ok Past Medical History reviewed Allergies: Coded Allergies: Sulfa (Sulfonamide Antibiotics) (Verified Allergy, Severe, 10/31/17) codeine (Verified Allergy, Severe, Nausea/Vomiting, 10/31/17) Uncoded Allergies: METAL (Allergy, Intermediate, hives, 03/08/16) SURGICAL STEEL (Allergy, Intermediate, hives, 03/08/16) Objective . Vital Signs Date Time Temp Pulse Resp B/P (MAP) Pulse Ox O2 Delivery O2 Flow Rate FiO2 11/07/17 06:00 94 11/07/17 04:00 87 11/07/17 04:00 99.4 87 16 138/67 (90) 96 11/07/17 02:03 94 11/07/17 02:00 83 11/07/17 00:00 99.5 83 16 139/65 (89) 95 11/07/17 00:00 79 11/06/17 22:00 83 11/06/17 20:00 98.9 79 20 165/77 (106) 98 11/06/17 20:00 83 11/06/17 19:00 99 4.00 11/06/17 18:00 101 11/06/17 16:00 75 11/06/17 16:00 98.2 75 17 141/74 (96) 99 11/06/17 14:00 110 11/06/17 12:00 98.0 75 19 147/67 (93) 99 11/06/17 12:00 75 . Laboratory Tests Test 11/06/17 03:58 11/07/17 05:00 White Blood Count 22.2 TH/MM3 25.0 TH/MM3 Red Blood Count 4.12 MIL/MM3 4.23 MIL/MM3 Hemoglobin 10.5 GM/DL 10.8 GM/DL Hematocrit 32.7 % 33.6 % Mean Corpuscular Volume 79.2 FL 79.5 FL Mean Corpuscular Hemoglobin 25.4 PG 25.4 PG Mean Corpuscular Hemoglobin Concent 32.1 % 32.0 % Red Cell Distribution Width 17.8 % 17.7 % Platelet Count 201 TH/MM3 211 TH/MM3 Mean Platelet Volume 9.1 FL 9.2 FL Neutrophils (%) (Auto) 79.7 % 85.8 % Lymphocytes (%) (Auto) 8.1 % 8.8 % Monocytes (%) (Auto) 11.7 % 4.7 % Eosinophils (%) (Auto) 0.4 % 0.6 % Basophils (%) (Auto) 0.1 % 0.1 % Neutrophils # (Auto) 17.7 TH/MM3 21.4 TH/MM3 Lymphocytes # (Auto) 1.8 TH/MM3 2.2 TH/MM3 Monocytes # (Auto) 2.6 TH/MM3 1.2 TH/MM3 Eosinophils # (Auto) 0.1 TH/MM3 0.2 TH/MM3 Basophils # (Auto) 0.0 TH/MM3 0.0 TH/MM3 CBC Comment AUTO DIFF AUTO DIFF Differential Total Cells Counted 100 100 Neutrophils % (Manual) 67 % 64 % Band Neutrophils % 6 % 11 % Lymphocytes % 10 % 7 % Monocytes % 13 % 7 % Neutrophils # (Manual) 17.1 TH/MM3 21.5 TH/MM3 Metamyelocytes 2 % 4 % Myelocytes 2 % 6 % Nucleated Red Blood Cells 2 /100 WBC 1 /100 WBC Differential Comment FINAL DIFF MANUAL FINAL DIFF MANUAL Platelet Estimate NORMAL NORMAL Platelet Morphology Comment NORMAL NORMAL Ovalocytes 1+ Promyelocytes 1 % Toxic Granulation 1+ Polychromasia 2.5 % Tear Drop Cells 1+ Laboratory Tests Test 11/06/17 03:58 11/06/17 14:25 11/07/17 05:00 11/07/17 09:30 Blood Urea Nitrogen 73 MG/DL 59 MG/DL Creatinine 2.29 MG/DL 1.81 MG/DL Random Glucose 241 MG/DL 172 MG/DL Total Protein 6.9 GM/DL 6.5 GM/DL Albumin 2.6 GM/DL 2.7 GM/DL Calcium Level 7.6 MG/DL 8.0 MG/DL Magnesium Level 2.9 MG/DL 2.3 MG/DL Alkaline Phosphatase 68 U/L 65 U/L Aspartate Amino Transf (AST/SGOT) 200 U/L 77 U/L Alanine Aminotransferase (ALT/SGPT) 187 U/L 122 U/L Total Bilirubin 1.4 MG/DL 1.4 MG/DL Sodium Level 142 MEQ/L 145 MEQ/L Potassium Level 3.5 MEQ/L 3.1 MEQ/L Chloride Level 109 MEQ/L 111 MEQ/L Carbon Dioxide Level 19.9 MEQ/L 20.6 MEQ/L Anion Gap 13 MEQ/L 13 MEQ/L Estimat Glomerular Filtration Rate 21 ML/MIN 28 ML/MIN Ammonia 76 MCMOL/L 52 MCMOL/L Phosphorus Level 3.7 MG/DL 3.7 MG/DL Microbiology Date/Time Source Procedure Growth Status 11/05/17 10:58 Sputum Endotracheal Gram Stain - Final Complete 11/05/17 10:58 Sputum Endotracheal Sputum Culture - Final NO GROWTH IN 48 HOURS. Complete Imaging Last Impressions Abdomen X-Ray 11/04/17 0000 Signed Impressions: Service Date/Time: Saturday, November 04, 2017 17:50 - CONCLUSION: Nonspecific intestinal gas pattern Jose Wright MD Chest X-Ray 11/03/17 0600 Signed Impressions: Service Date/Time: Friday, November 03, 2017 04:01 - CONCLUSION: No significant change. Robe Menchaca MD Head CT 10/31/17 1321 Signed Impressions: Service Date/Time: October 14:02 - CONCLUSION: 1. No acute intracranial findings. Left sphenoid sinusitis. Remote lacunar infarct right frontal white matter. Samuel Lin MD Abdomen/Pelvis CT 10/31/17 1321 Signed Impressions: Service Date/Time: October 13:58 - CONCLUSION: 1. Development of innumerable small sclerotic lesions in the skeleton most characteristic of sclerotic bony metastatic disease. There is a reported history of malignancy. 2. Hepatomegaly with development of mild ascites. 3. Persistent moderate hydronephrosis with perinephric stranding similar to February 2017. Interval development of mild anasarca. 4. Gallbladder sludge. Gallo catheter in bladder. Samuel Lin MD Lung Scan- Nuclear Medicine 10/31/17 0000 Signed Impressions: Service Date/Time: October 15:00 - CONCLUSION: Low probability scan for pulmonary embolism Jose Wright MD Physical Exam GENERAL: This is a well-nourished, well-developed patient, in no apparent distress. SKIN: Areas of Ecchymosis. HEAD: Atraumatic. Normocephalic. No temporal or scalp tenderness. EYES: Pupils equal round and reactive. Extraocular motions intact. No scleral icterus. No injection or drainage. ENT: NAD NECK: Trachea midline. Supple, nontender, no meningeal signs. CARDIOVASCULAR: HS audible. No murmur. RESPIRATORY: Clear to auscultation. Breath sounds decreased in the bases. GASTROINTESTINAL: Abdomen soft, mildly distended. Non tender. MUSCULOSKELETAL: Extremities without clubbing, cyanosis, or edema. No joint tenderness, effusion, or edema noted. NEUROLOGICAL: Awake, alert. non focal. Psych cooperative Port site with no e.o infection. Assessment & Plan Remarks Severe sepsis present on admission E. coli pyelonephritis with hydronephrosis with no evidence of obstruction per urology notes. He did urinary tract infection. No plans for stent placement. E. coli bacteremia appears to be transient and related to the E. coli pyelonephritis. Possible aspiration pneumonia on admission Acute metabolic encephalopathy likely secondary to sepsis, acute renal failure, cirrhosis (hepatic) Acute renal failure on admission: prerenal, sepsis. Abnormal LFTs: sepsis, meds, cirrhosis. Leucocytosis Colon cancer with suspected mets. Recs: DC Ceftriaxone (increased LFTs) Start Cefepime IV (possible aspiration in Health care setting). guillermo spouse clinical and radiological findings. He would like to have GI be involved to figure out the cause for fibrosis. guillermo LAUREANO and Follow cultures Follow clinically. Brittani Wagner RN, MD November 07, 2017 10:12
[2017-11-07] MEDS: CEFEPIME INJ 2,000 MG in SODIUM CHLORIDE 0.9% INJ 100 ML IV SCH ×2 (11:28→18:05)
[2017-11-07] MEDS: HEPARIN-D5W 25,000 U/250 ML 250 ML IV PRN (11:48)
--- NOTE | 2017-11-07 12:27 | PD.CONS ---
HPI History of Present Illness This is a 72 year old female with hx colon ca s/p resection and tx with Xeloda who presented with weakness. She was found to be septic from UTI. GI consulted for LFT elevation. Per pt's there is not hx significant etoh consumption. He does recall her having "hepatitis years ago" when they were in [place] but can recall no further details. He does not recall ever hearing that she had elevated liver chemistries. He says she has been itchy lately but he has not observed any jaundice. He said she had a prior recent admission for sepsis and did not seem to fully recover from that. Her last colonoscopy was done intraoperatively in [address] Adair during a colon resection. CT showed sclerotic bony lesions, hepatomegaly, small ascites, gallbladder sludge. (Sandy Reid) PFSH Past Medical History colon ca s/p resection, xeloda HTN AF DM sepis Past Surgical History colon resection atrial ablation appendectomy hernia repair (Sandy Reid) Coded Allergies: Sulfa (Sulfonamide Antibiotics) (Verified Allergy, Severe, 10/31/17) codeine (Verified Allergy, Severe, Nausea/Vomiting, 10/31/17) Uncoded Allergies: METAL (Allergy, Intermediate, hives, 03/08/16) SURGICAL STEEL (Allergy, Intermediate, hives, 03/08/16) Family History unk Social History occasional etoh (Sandy Reid) Review of Systems noncontributory (Sandy Reid) GI Exam Vitals I&O Vital Signs Date Time Temp Pulse Resp B/P (MAP) Pulse Ox O2 Delivery O2 Flow Rate FiO2 11/07/17 10:17 98 Nasal Cannula 3.00 11/07/17 10:00 88 11/07/17 08:00 92 11/07/17 08:00 99.1 92 28 192/87 (122) 95 11/07/17 07:00 97 4.00 11/07/17 06:00 94 11/07/17 04:00 87 11/07/17 04:00 99.4 87 16 138/67 (90) 96 11/07/17 02:03 94 11/07/17 02:00 83 11/07/17 00:00 99.5 83 16 139/65 (89) 95 11/07/17 00:00 79 11/06/17 22:00 83 11/06/17 20:00 98.9 79 20 165/77 (106) 98 11/06/17 20:00 83 11/06/17 19:00 99 4.00 11/06/17 18:00 101 11/06/17 16:00 75 11/06/17 16:00 98.2 75 17 141/74 (96) 99 11/06/17 14:00 110 I/O 11/06/17 11/06/17 11/06/17 11/07/17 11/07/17 11/07/17 07:00 15:00 23:00 07:00 15:00 23:00 Intake Total 1460 ml 1400 ml 552.3 ml 777 ml Output Total 1600 ml 1650 ml 1450 ml Balance -140 ml 1400 ml -1097.7 ml -673 ml Intake Oral 60 ml IV Total 1460 ml 1400 ml 492.3 ml 777 ml Output Urine Total 1600 ml 1650 ml 1450 ml # Bowel Movements 2 1 Imaging Last Impressions Liver Ultrasound 11/07/17 0000 Signed Impressions: Service Date/Time: October 08:05 - CONCLUSION: 1. Heterogeneous liver suggestive of hepatocellular disease such as cirrhosis. There is a small amount of ascites surrounding the liver. This is not significantly changed compared to the recent CT scan of the abdomen. 2. Sludge in the gallbladder. No definite gallstones or biliary tract obstruction. 3. Mild splenomegaly. 4. Mild hydronephrosis of the right collecting system. Markie Crabtree MD Chest X-Ray 11/07/17 0000 Signed Impressions: Service Date/Time: October 07:53 - CONCLUSION: 1. Persistent interstitial prominence with bibasilar airspace disease/effusions. Slight interval worsening particularly on the left suggesting worsening volume overload/vascular congestion. 2. Interval removal of the endotracheal and nasogastric tubes. Jj Alvarez MD Head CT 11/06/17 0000 Signed Impressions: Service Date/Time: Monday, November 06, 2017 10:03 - CONCLUSION: 1. No acute intracranial abnormality or significant interval change. César Coats MD Abdomen X-Ray 11/04/17 0000 Signed Impressions: Service Date/Time: Saturday, November 04, 2017 17:50 - CONCLUSION: Nonspecific intestinal gas pattern Jose Wright MD Abdomen/Pelvis CT 10/31/17 1321 Signed Impressions: Service Date/Time: October 13:58 - CONCLUSION: 1. Development of innumerable small sclerotic lesions in the skeleton most characteristic of sclerotic bony metastatic disease. There is a reported history of malignancy. 2. Hepatomegaly with development of mild ascites. 3. Persistent moderate hydronephrosis with perinephric stranding similar to February 2017. Interval development of mild anasarca. 4. Gallbladder sludge. Gallo catheter in bladder. Samuel Lin MD Lung Scan-V Nuclear Medicine 10/31/17 0000 Signed Impressions: Service Date/Time: October 15:00 - CONCLUSION: Low probability scan for pulmonary embolism Jose Wright MD Laboratory Test 11/06/17 14:25 11/06/17 21:25 11/07/17 05:00 11/07/17 07:55 Activated Partial Thromboplast Time 41.4 SEC 40.2 SEC 44.6 SEC Ammonia 76 MCMOL/L White Blood Count 25.0 TH/MM3 Red Blood Count 4.23 MIL/MM3 Hemoglobin 10.8 GM/DL Hematocrit 33.6 % Mean Corpuscular Volume 79.5 FL Mean Corpuscular Hemoglobin 25.4 PG Mean Corpuscular Hemoglobin Concent 32.0 % Red Cell Distribution Width 17.7 % Platelet Count 211 TH/MM3 Mean Platelet Volume 9.2 FL Neutrophils (%) (Auto) 85.8 % Lymphocytes (%) (Auto) 8.8 % Monocytes (%) (Auto) 4.7 % Eosinophils (%) (Auto) 0.6 % Basophils (%) (Auto) 0.1 % Neutrophils # (Auto) 21.4 TH/MM3 Lymphocytes # (Auto) 2.2 TH/MM3 Monocytes # (Auto) 1.2 TH/MM3 Eosinophils # (Auto) 0.2 TH/MM3 Basophils # (Auto) 0.0 TH/MM3 CBC Comment AUTO DIFF Differential Total Cells Counted 100 Neutrophils % (Manual) 64 % Band Neutrophils % 11 % Lymphocytes % 7 % Monocytes % 7 % Neutrophils # (Manual) 21.5 TH/MM3 Metamyelocytes 4 % Myelocytes 6 % Promyelocytes 1 % Nucleated Red Blood Cells 1 /100 WBC Differential Comment FINAL DIFF MANUAL Toxic Granulation 1+ Platelet Estimate NORMAL Platelet Morphology Comment NORMAL Polychromasia 2.5 % Tear Drop Cells 1+ Blood Urea Nitrogen 59 MG/DL Creatinine 1.81 MG/DL Random Glucose 172 MG/DL Total Protein 6.5 GM/DL Albumin 2.7 GM/DL Calcium Level 8.0 MG/DL Phosphorus Level 3.7 MG/DL Magnesium Level 2.3 MG/DL Alkaline Phosphatase 65 U/L Aspartate Amino Transf (AST/SGOT) 77 U/L Alanine Aminotransferase (ALT/SGPT) 122 U/L Total Bilirubin 1.4 MG/DL Sodium Level 145 MEQ/L Potassium Level 3.1 MEQ/L Chloride Level 111 MEQ/L Carbon Dioxide Level 20.6 MEQ/L Anion Gap 13 MEQ/L Estimat Glomerular Filtration Rate 28 ML/MIN Blood Gas Puncture Site RT RADIAL Blood Gas Patient Temperature 98.6 Blood Gas HCO3 20 mmol/L Blood Gas Base Excess -5.0 mmol/L Blood Gas Oxygen Saturation 94 % Arterial Blood pH 7.34 Arterial Blood Partial Pressure CO2 37 mmHg Arterial Blood Partial Pressure O2 98 mmHg Arterial Blood Oxygen Content 14.8 Vol % Arterial Blood Carboxyhemoglobin 1.2 % Arterial Blood Methemoglobin 1.6 % Blood Gas Hemoglobin 11.1 G/DL Oxygen Delivery Device NASAL CANNULA Blood Gas Liter Flow 3 L/M Test 11/07/17 09:30 Phosphorus Level 3.7 MG/DL Ammonia 52 MCMOL/L Date/Time Source Procedure Growth Status 11/02/17 04:23 Blood Peripheral Aerobic Blood Culture - Final NO GROWTH IN 5 DAYS Complete 11/02/17 04:23 Blood Peripheral Anaerobic Blood Culture - Final NO GROWTH IN 5 DAYS Complete 11/01/17 20:00 Stool Stool Stool Occult Blood (NANI) - Final HEMOCCULT NEGATIVE Complete 11/05/17 10:58 Sputum Endotracheal Gram Stain - Final Complete 11/05/17 10:58 Sputum Endotracheal Sputum Culture - Final NO GROWTH IN 48 HOURS. Complete 10/31/17 13:30 Urine Clean Catch Urine Culture - Final Escherichia Coli Complete Physical Examination HEENT: normocephalic; atraumatic; no jaundice. CHEST: tachypneic CARDIAC: irr HR ABDOMEN: semifirm, distended, BS + EXTREMITIES: No clubbing, cyanosis, trace BLE edema SKIN: pale, no jaundice SKIDDER OPERATOR: lethargic (Sandy Reid) Assessment and Plan Plan ASSESSMENT - elevated LFTs - unclear etiology. DILI vs fatty liver vs congestive vs other. no reported hx significant ETOH consumption pts has vague recollection of some sort of hepatitis. unaware of prior LFT elevation CT shows hepatomegaly with mild ascites, sclerotic bony lesions, GB sludge. US showed poss cirrhosis, hepatocellular dz, small ascites, GB sludge. PLAN - continue lactulose - monitor labs - liver w/u - hepatitis panel - further recs as case unfolds pt seen by myself and Dr Skinner and this note is on her behalf (Sandy Reid) Physician Comments seen, examined agree with above add Rifaximin 550 mg po bid fu liver w-up (Kristen Skinner MD) Sandy Reid November 07, 2017 12:27 Kristen Skinner MD November 07, 2017 13:54
[2017-11-07] MEDS: hydrALAZINE HCL 20 MG/ML VIAL IV PUSH PRN (18:06)
[2017-11-07] MEDS: RIFAXIMIN 550 MG TAB PO SCH (20:04)
[2017-11-07] MEDS: cloNIDine HCL 0.2 MG TAB PO PRN (20:44)
[2017-11-07] MEDS: ONDANSETRON ODT 4 MG TAB PO PRN (20:48)
[2017-11-08] VITALS (25 sets, daily range): BP systolic 129–214; BP diastolic 60–115; PULSE 72–92; RESP 22–49; TEMP 98.6–100.2; O2SAT 89–98
[2017-11-08] MEDS: LACTULOSE SYRUP 20 GM/30 ML CUP PO SCH ×3 (00:48→17:46)
[2017-11-08] MEDS: HEPARIN-D5W 25,000 U/250 ML 250 ML IV PRN ×2 (02:58→18:31)
[2017-11-08] MEDS: CEFEPIME INJ 2,000 MG in SODIUM CHLORIDE 0.9% INJ 100 ML IV SCH ×2 (03:02→11:57)
[2017-11-08 04:41] LABS: AUTOMATED NEUTROPHIL # 19.1 TH/MM3 (1.8-7.7); BASOPHIL # 0.1 TH/MM3 (0-0.2); BASOPHIL % 0.4 % (0.0-2.0); EOSINOPHIL # 0.1 TH/MM3 (0-0.4); EOSINOPHIL % 0.5 % (0.0-4.0); HEMATOCRIT 30.4 % (35.0-46.0); HEMOGLOBIN 9.9 GM/DL (11.6-15.3); LYMPH % 6.8 % (9.0-44.0); LYMPHOCYTE # 1.5 TH/MM3 (1.0-4.8); MEAN CELL VOLUME 79.8 FL (80.0-100.0); MEAN CORPUSCULAR HEMOGLOBIN 25.9 PG (27.0-34.0); MEAN CORPUSCULAR HGB CONC 32.5 % (32.0-36.0); MEAN PLATELET VOLUME 8.6 FL (7.0-11.0); MONO % 4.9 % (0.0-8.0); MONOCYTE # 1.1 TH/MM3 (0-0.9); NEUT % 87.4 % (16.0-70.0); PLATELET COUNT 184 TH/MM3 (150-450); RED BLOOD COUNT 3.81 MIL/MM3 (4.00-5.30); RED CELL DISTRIBUTION WIDTH 17.2 % (11.6-17.2); WHITE BLOOD COUNT 21.9 TH/MM3 (4.0-11.0)
[2017-11-08 05:23] LABS: % SATURATION IRON PROFILE 13.7 % (20-50); ALBUMIN 2.6 GM/DL (3.4-5.0); ALKALINE PHOSPHATASE 80 U/L (45-117); ALT (GPT) 75 U/L (10-53); AST (GOT) 38 U/L (15-37); BLOOD UREA NITROGEN 46 MG/DL (7-18); CALCIUM 7.9 MG/DL (8.5-10.1); CHLORIDE 116 MEQ/L (98-107); CREATININE 1.48 MG/DL (0.50-1.00); FERRITIN 184 NG/ML (8-252); GLOMERULAR FILTRATION RATE 35 ML/MIN (>89); GLUCOSE,RANDOM 196 MG/DL (74-106); IRON (FE) 31 MCG/DL (50-170); SODIUM (NA) 149 MEQ/L (136-145); TOTAL BILIRUBIN ADULT 1.1 MG/DL (0.2-1.0); TOTAL IRON BINDING CAPACITY 227 MCG/DL (250-450); TOTAL PROTEIN 6.6 GM/DL (6.4-8.2)
[2017-11-08] MEDS: METOPROLOL TARTRATE 25 MG TAB PO SCH ×3 (05:42→21:34)
[2017-11-08] MEDS: LEVOTHYROXINE SODIUM 50 MCG TAB PO SCH (05:42)
[2017-11-08] MEDS: POTASSIUM CHLOR 40 MEQ PREMIX 100 ML IV PRN (06:17)
--- NOTE | 2017-11-08 06:32 | RADRPT ---
EXAM DATE/TIME: 11/08/2017 04:16 [facility] COMPARISON: CHEST SINGLE AP, November 07, 2017, 7:53. INDICATIONS : Respiratory disease. MEDICAL HISTORY : Carcinoma, colon. Thyroid disease. TIA x2. Cerebral hemorrhage. AFib. Dysuria. Diabetes. Measles.Anti coagulant therapy SURGICAL HISTORY : Colon resection. section. Hernia repair. Oopherectomy. Chemotherapy. Blood transfusions. ENCOUNTER: Subsequent ACUITY: 1 day PAIN SCORE: Non-responsive. LOCATION: Bilateral chest FINDINGS: A single portable frontal view of the chest shows the patient obliqued towards the left. Heart is mil dly enlarged. Pulmonary vascular engorgement noted. Bilateral pulmonary infiltrates most pronounced w ithin the bases. Questionable small left effusion. Appearance is stable from the prior study. Nasogas tric tube and right-sided Port-A-Cath. CONCLUSION: Stable radiographic appearance most consistent with pulmonary edema. Antonio High Jr., MD on November 08, 2017 at 6:29 Board Certified Radiologist. This report was verified electronically.
[2017-11-08] MEDS: cloNIDine HCL 0.2 MG TAB PO PRN (06:38)
[2017-11-08] MEDS: FLUoxetine HCL 20 MG CAP PO SCH (08:35)
[2017-11-08] MEDS: AMIODARONE 200 MG TAB PO SCH (08:35)
[2017-11-08] MEDS: RIFAXIMIN 550 MG TAB PO SCH ×2 (08:35→21:34)
[2017-11-08] MEDS: VENLAFAXINE HCL XR 75 MG CAP PO SCH (08:35)
[2017-11-08] MEDS: SODIUM CHLORIDE 0.9% FLUSH 10 ML FLUSH IV FLUSH SCH ×2 (08:36→21:35)
[2017-11-08] MEDS: ACETAMINOPHEN/HYDROcodone 325 MG/5 MG TAB PO PRN ×4 (08:36→20:31)
[2017-11-08] MEDS: PRAVASTATIN SOD 40 MG TAB PO SCH (08:36)
[2017-11-08] MEDS: DOCUSATE SODIUM 50 MG/SENNA 8.6 MG TAB PO SCH ×2 (08:36→21:34)
[2017-11-08] MEDS: ALBUMIN 25% INJ 50 ML IV SCH ×2 (08:36→21:35)
[2017-11-08] MEDS: CYANOCOBALAMIN 1000 MCG/ML VIAL SQ SCH (08:36)
[2017-11-08] MEDS: CHLORHEXIDINE 0.12% (ORAL KIT) 15 ML CUP MT SCH (09:01)
[2017-11-08 09:14] LABS: BANDS 15 % (0-6); CORRECTED NUCLEATED RBC 3 /100 WBC (0-0); LYMPHOCYTES 5 % (9-44); METAMYELOCYTES 5 % (0-1); MONOCYTES 3 % (0-8); NEUTROPHIL # MANUAL DIFF 19.9 TH/MM3 (1.8-7.7); NUCLEATED RED BLOOD CELL 3 (0-0); PLASMA CELLS 1 % (0-0); POLYS (SEG NEUTROPHILS) 71 % (16-70); TOXIC GRANULATION 2+ (NORMAL)
[2017-11-08] MEDS: INSULIN ASPART SUPPLEMENTAL SCALE SQ SCH ×4 (09:38→21:36)
--- NOTE | 2017-11-08 10:21 | HHI.IDPN ---
Subjective Subjective Remarks Ms. Marroquin is a 72-year-old female with past medical history significant for colon cancer with reported history of spots on her vertebrae. Patient's spouse reports that she was scheduled to have a PET scan but could not complete it as she was extremely weak. Dr. Vargas is her oncologist and is following her. Her past medical history is also significant for hypertension hyperlipidemia, atrial fibrillation status post previous ablation, type 2 diabetes. With this background patient presents to the emergency department with generalized weakness as well as hypotensive upon arrival. She was diagnosed with possible UTI sepsis. She received 4 L of IV fluids in the emergency room and her blood pressure improved to 690s systolic. But she continued to be in atrial fibrillation with heart rate in 130s. She had a negligible urine output despite 4 L IV fluids and elevated lactic acid remains a concern. Sepsis workup was initiated and patient was started on empiric IV antibiotics for presumed UTI related sepsis. Per review of records it appears that patient reportedly did not eat or drink for 30 hours prior to admission and was having burning with urination approximately 2 days prior to admission. CT of the head was done which was unremarkable a CT of the abdomen pelvis showed moderate hydronephrosis as well as several spots as mentioned in the report concerning for malignancy related metastases. Oncology Dr. Vargas is following the patient. A VQ scan was done which showed low probability of PE. Blood cultures done on admission are positive for E. coli as well as her urine culture was also positive for E. coli. Patient has been treated with ceftriaxone and has been clinically improved. Repeat blood cultures are negative so far. Urology has seen the patient and there is no plan for placement of stent. This appears to be hydronephrosis with stranding around the kidney suggestive of pyelonephritis. Infectious diseases consulted for evaluation and management of sepsis, E. coli bacteremia and E. coli pyelonephritis. Overnight events reviewed no fevers no rash No diarrhea. Lethargic. CT head negative. EEG ongoing in room. US liver with cirrhosis, mild hydronephrosis. Ammonia mildly elevated. s/b GI Rifaximin started. Antibiotics Ceftriaxone IV Lines Port site ok Past Medical History reviewed Allergies: Coded Allergies: Sulfa (Sulfonamide Antibiotics) (Verified Allergy, Severe, 10/31/17) codeine (Verified Allergy, Severe, Nausea/Vomiting, 10/31/17) Uncoded Allergies: METAL (Allergy, Intermediate, hives, 03/08/16) SURGICAL STEEL (Allergy, Intermediate, hives, 03/08/16) Objective . Vital Signs Date Time Temp Pulse Resp B/P (MAP) Pulse Ox O2 Delivery O2 Flow Rate FiO2 11/08/17 06:00 75 11/08/17 04:00 99.1 78 27 150/70 (96) 97 11/08/17 04:00 78 11/08/17 02:00 77 11/08/17 00:00 72 11/08/17 00:00 99.4 72 23 129/60 (83) 94 11/07/17 22:00 78 11/07/17 20:00 87 11/07/17 20:00 99.1 87 22 137/67 (90) 96 11/07/17 19:25 96 Nasal Cannula 3.00 11/07/17 19:00 99 4.00 11/07/17 18:00 79 11/07/17 16:46 79 170/77 11/07/17 16:00 84 11/07/17 16:00 99.4 84 23 188/91 (123) 96 11/07/17 14:00 80 11/07/17 12:00 74 11/07/17 12:00 99.3 74 20 145/75 (98) 97 11/07/17 10:17 98 Nasal Cannula 3.00 . Laboratory Tests Test 11/07/17 05:00 11/08/17 04:10 White Blood Count 25.0 TH/MM3 21.9 TH/MM3 Red Blood Count 4.23 MIL/MM3 3.81 MIL/MM3 Hemoglobin 10.8 GM/DL 9.9 GM/DL Hematocrit 33.6 % 30.4 % Mean Corpuscular Volume 79.5 FL 79.8 FL Mean Corpuscular Hemoglobin 25.4 PG 25.9 PG Mean Corpuscular Hemoglobin Concent 32.0 % 32.5 % Red Cell Distribution Width 17.7 % 17.2 % Platelet Count 211 TH/MM3 184 TH/MM3 Mean Platelet Volume 9.2 FL 8.6 FL Neutrophils (%) (Auto) 85.8 % 87.4 % Lymphocytes (%) (Auto) 8.8 % 6.8 % Monocytes (%) (Auto) 4.7 % 4.9 % Eosinophils (%) (Auto) 0.6 % 0.5 % Basophils (%) (Auto) 0.1 % 0.4 % Neutrophils # (Auto) 21.4 TH/MM3 19.1 TH/MM3 Lymphocytes # (Auto) 2.2 TH/MM3 1.5 TH/MM3 Monocytes # (Auto) 1.2 TH/MM3 1.1 TH/MM3 Eosinophils # (Auto) 0.2 TH/MM3 0.1 TH/MM3 Basophils # (Auto) 0.0 TH/MM3 0.1 TH/MM3 CBC Comment AUTO DIFF AUTO DIFF Differential Total Cells Counted 100 100 Neutrophils % (Manual) 64 % 71 % Band Neutrophils % 11 % 15 % Lymphocytes % 7 % 5 % Monocytes % 7 % 3 % Neutrophils # (Manual) 21.5 TH/MM3 19.9 TH/MM3 Metamyelocytes 4 % 5 % Myelocytes 6 % Promyelocytes 1 % Nucleated Red Blood Cells 1 /100 WBC 3 /100 WBC Differential Comment FINAL DIFF MANUAL FINAL DIFF MANUAL Toxic Granulation 1+ 2+ Platelet Estimate NORMAL NORMAL Platelet Morphology Comment NORMAL NORMAL Polychromasia 2.5 % Tear Drop Cells 1+ Plasma Cells 1 % Laboratory Tests Test 11/06/17 14:25 11/07/17 05:00 11/07/17 09:30 11/08/17 04:10 Ammonia 76 MCMOL/L 52 MCMOL/L Blood Urea Nitrogen 59 MG/DL 46 MG/DL Creatinine 1.81 MG/DL 1.48 MG/DL Random Glucose 172 MG/DL 196 MG/DL Total Protein 6.5 GM/DL 6.6 GM/DL Albumin 2.7 GM/DL 2.6 GM/DL Calcium Level 8.0 MG/DL 7.9 MG/DL Phosphorus Level 3.7 MG/DL 3.7 MG/DL Magnesium Level 2.3 MG/DL 2.0 MG/DL Alkaline Phosphatase 65 U/L 80 U/L Aspartate Amino Transf (AST/SGOT) 77 U/L 38 U/L Alanine Aminotransferase (ALT/SGPT) 122 U/L 75 U/L Total Bilirubin 1.4 MG/DL 1.1 MG/DL Sodium Level 145 MEQ/L 149 MEQ/L Potassium Level 3.1 MEQ/L 2.9 MEQ/L Chloride Level 111 MEQ/L 116 MEQ/L Carbon Dioxide Level 20.6 MEQ/L 22.0 MEQ/L Anion Gap 13 MEQ/L 11 MEQ/L Estimat Glomerular Filtration Rate 28 ML/MIN 35 ML/MIN Iron Level 31 MCG/DL Total Iron Binding Capacity 227 MCG/DL Percent Iron Saturation 13.7 % Ferritin 184 NG/ML Tumor Marker Alpha Fetoprotein 1.4 NG/ML Test 11/08/17 04:25 Ammonia 39 MCMOL/L Microbiology Date/Time Source Procedure Growth Status 11/05/17 10:58 Sputum Endotracheal Gram Stain - Final Complete 11/05/17 10:58 Sputum Endotracheal Sputum Culture - Final NO GROWTH IN 48 HOURS. Complete Imaging Last Impressions Abdomen X-Ray 11/04/17 0000 Signed Impressions: Service Date/Time: Saturday, November 04, 2017 17:50 - CONCLUSION: Nonspecific intestinal gas pattern Jose Wright MD Chest X-Ray 11/03/17 0600 Signed Impressions: Service Date/Time: Friday, November 03, 2017 04:01 - CONCLUSION: No significant change. Robe Menchaca MD Head CT 10/31/17 1321 Signed Impressions: Service Date/Time: October 14:02 - CONCLUSION: 1. No acute intracranial findings. Left sphenoid sinusitis. Remote lacunar infarct right frontal white matter. Samuel Lin MD Abdomen/Pelvis CT 10/31/17 1321 Signed Impressions: Service Date/Time: October 13:58 - CONCLUSION: 1. Development of innumerable small sclerotic lesions in the skeleton most characteristic of sclerotic bony metastatic disease. There is a reported history of malignancy. 2. Hepatomegaly with development of mild ascites. 3. Persistent moderate hydronephrosis with perinephric stranding similar to February 2017. Interval development of mild anasarca. 4. Gallbladder sludge. Gallo catheter in bladder. Samuel Lin MD Lung Scan-V Nuclear Medicine 10/31/17 0000 Signed Impressions: Service Date/Time: October 15:00 - CONCLUSION: Low probability scan for pulmonary embolism Jose Wright MD Physical Exam GENERAL: Obese, well-developed patient, in no apparent distress. SKIN: Areas of Ecchymosis. HEAD: Atraumatic. Normocephalic. No temporal or scalp tenderness. EYES: Pupils equal round and reactive. Extraocular motions intact. No scleral icterus. No injection or drainage. ENT: NAD NECK: Trachea midline. Supple, nontender, no meningeal signs. CARDIOVASCULAR: HS audible. No murmur. RESPIRATORY: Clear to auscultation. Breath sounds decreased in the bases. GASTROINTESTINAL: Abdomen soft, mildly distended. Non tender. MUSCULOSKELETAL: Extremities without clubbing, cyanosis, or edema. No joint tenderness, effusion, or edema noted. Lethargic,non focal. Psych could not be assessed Port site with no e.o infection. Assessment & Plan Remarks Severe sepsis present on admission E. coli pyelonephritis with hydronephrosis with no evidence of obstruction per urology notes. He did urinary tract infection. No plans for stent placement. E. coli bacteremia appears to be transient and related to the E. coli pyelonephritis. Possible aspiration pneumonia on admission Acute metabolic encephalopathy likely secondary to sepsis, acute renal failure, cirrhosis (hepatic) Acute renal failure on admission: prerenal, sepsis. Abnormal LFTs: sepsis, meds, cirrhosis. Leucocytosis Colon cancer with suspected mets. Recs: Continue Cefepime IV (possible aspiration in Health care setting). guillermo spouse clinical and radiological findings. guillermo GI [facility] Follow cultures Follow clinically. guillermo RN to cover for me this weekend. Brittani Srinivasan MD November 08, 2017 10:21
--- NOTE | 2017-11-08 10:35 | HHI.GIFU ---
Subjective Remarks Unable to obtain history from patient at bedside (Gudelia Jalloh) Objective Vitals I&O Vital Signs Date Time Temp Pulse Resp B/P (MAP) Pulse Ox O2 Delivery O2 Flow Rate FiO2 11/08/17 06:00 75 11/08/17 04:00 99.1 78 27 150/70 (96) 97 11/08/17 04:00 78 11/08/17 02:00 77 11/08/17 00:00 72 11/08/17 00:00 99.4 72 23 129/60 (83) 94 11/07/17 22:00 78 11/07/17 20:00 87 11/07/17 20:00 99.1 87 22 137/67 (90) 96 11/07/17 19:25 96 Nasal Cannula 3.00 11/07/17 19:00 99 4.00 11/07/17 18:00 79 11/07/17 16:46 79 170/77 11/07/17 16:00 84 11/07/17 16:00 99.4 84 23 188/91 (123) 96 11/07/17 14:00 80 11/07/17 12:00 74 11/07/17 12:00 99.3 74 20 145/75 (98) 97 I/O 11/07/17 11/07/17 11/07/17 11/08/17 11/08/17 11/08/17 07:00 15:00 23:00 07:00 15:00 23:00 Intake Total 777 ml 400 ml 771 ml 348 ml Output Total 1450 ml 1750 ml 1200 ml Balance -673 ml 400 ml -979 ml -852 ml Intake Oral 0 ml IV Total 777 ml 400 ml 771 ml 348 ml Output Urine Total 1450 ml 1750 ml 1200 ml # Bowel Movements 1 5 4 Laboratory Laboratory Tests Test 11/08/17 04:10 11/08/17 04:25 White Blood Count 21.9 Red Blood Count 3.81 Hemoglobin 9.9 Hematocrit 30.4 Mean Corpuscular Volume 79.8 Mean Corpuscular Hemoglobin 25.9 Mean Corpuscular Hemoglobin Concent 32.5 Red Cell Distribution Width 17.2 Platelet Count 184 Mean Platelet Volume 8.6 Neutrophils (%) (Auto) 87.4 Lymphocytes (%) (Auto) 6.8 Monocytes (%) (Auto) 4.9 Eosinophils (%) (Auto) 0.5 Basophils (%) (Auto) 0.4 Neutrophils # (Auto) 19.1 Lymphocytes # (Auto) 1.5 Monocytes # (Auto) 1.1 Eosinophils # (Auto) 0.1 Basophils # (Auto) 0.1 CBC Comment AUTO DIFF Differential Total Cells Counted 100 Neutrophils % (Manual) 71 Band Neutrophils % 15 Lymphocytes % 5 Monocytes % 3 Neutrophils # (Manual) 19.9 Metamyelocytes 5 Nucleated Red Blood Cells 3 Differential Comment FINAL DIFF MANUAL Plasma Cells 1 Toxic Granulation 2+ Platelet Estimate NORMAL Platelet Morphology Comment NORMAL Activated Partial Thromboplast Time 55.3 Blood Urea Nitrogen 46 Creatinine 1.48 Random Glucose 196 Total Protein 6.6 Albumin 2.6 Calcium Level 7.9 Magnesium Level 2.0 Alkaline Phosphatase 80 Aspartate Amino Transf (AST/SGOT) 38 Alanine Aminotransferase (ALT/SGPT) 75 Total Bilirubin 1.1 Sodium Level 149 Potassium Level 2.9 Chloride Level 116 Carbon Dioxide Level 22.0 Anion Gap 11 Estimat Glomerular Filtration Rate 35 Iron Level 31 Total Iron Binding Capacity 227 Percent Iron Saturation 13.7 Ferritin 184 Tumor Marker Alpha Fetoprotein 1.4 Hepatitis A IgM Antibody NONREACTIVE Hepatitis B Surface Antigen NONREACTIVE Hepatitis B Core IgM Antibody NONREACTIVE Hepatitis C IgG Antibody NONREACTIVE Ammonia 39 Date/Time Source Procedure Growth Status 11/02/17 04:23 Blood Peripheral Aerobic Blood Culture - Final NO GROWTH IN 5 DAYS Complete 11/02/17 04:23 Blood Peripheral Anaerobic Blood Culture - Final NO GROWTH IN 5 DAYS Complete 11/01/17 20:00 Stool Stool Stool Occult Blood (NANI) - Final HEMOCCULT NEGATIVE Complete 11/05/17 10:58 Sputum Endotracheal Gram Stain - Final Complete 11/05/17 10:58 Sputum Endotracheal Sputum Culture - Final NO GROWTH IN 48 HOURS. Complete 10/31/17 13:30 Urine Clean Catch Urine Culture - Final Escherichia Coli Complete Imaging Last Impressions Chest X-Ray 11/08/17 0600 Signed Impressions: Service Date/Time: Wednesday, November 08, 2017 04:16 - CONCLUSION: Stable radiographic appearance most consistent with pulmonary edema. Antonio High Jr., MD Liver Ultrasound 11/07/17 0000 Signed Impressions: Service Date/Time: October 08:05 - CONCLUSION: 1. Heterogeneous liver suggestive of hepatocellular disease such as cirrhosis. There is a small amount of ascites surrounding the liver. This is not significantly changed compared to the recent CT scan of the abdomen. 2. Sludge in the gallbladder. No definite gallstones or biliary tract obstruction. 3. Mild splenomegaly. 4. Mild hydronephrosis of the right collecting system. Markie Crabtree MD Head CT 11/06/17 0000 Signed Impressions: Service Date/Time: Monday, November 06, 2017 10:03 - CONCLUSION: 1. No acute intracranial abnormality or significant interval change. César Coats MD Abdomen X-Ray 11/04/17 0000 Signed Impressions: Service Date/Time: Saturday, November 04, 2017 17:50 - CONCLUSION: Nonspecific intestinal gas pattern Jose Wright MD Abdomen/Pelvis CT 10/31/17 1321 Signed Impressions: Service Date/Time: October 13:58 - CONCLUSION: 1. Development of innumerable small sclerotic lesions in the skeleton most characteristic of sclerotic bony metastatic disease. There is a reported history of malignancy. 2. Hepatomegaly with development of mild ascites. 3. Persistent moderate hydronephrosis with perinephric stranding similar to February 2017. Interval development of mild anasarca. 4. Gallbladder sludge. Gallo catheter in bladder. Samuel Lin MD Lung Scan- Nuclear Medicine 10/31/17 0000 Signed Impressions: Service Date/Time: October 15:00 - CONCLUSION: Low probability scan for pulmonary embolism Jose Wright MD Physical Exam HEENT: Normocephalic; atraumatic CARDIAC: Irregularly irregular, rate controlled ABDOMEN: Distended, semi-firm, bowel sounds active EXTREMITIES: No clubbing, cyanosis, or edema. SKIN: Normal; no rash; no jaundice. (Gudelia Jalloh) Assessment and Plan Plan Assessment: - Elevated LFTs- WNL on admission, elevated on 11/03 Of note, pt was hypotensive and requiring pressors on 11/03 Pt denies history of liver issues or ETOH Current LFTs: (11/08) AST-38 ALT-75 Alk phos-80 T bili-1.1 Liver Work up: Iron-31 TIBC-227 %sat-13.7 Ferritin-184 Hepatitis panel negative. AFP-1.4 A1A, ceruloplasmin, JELANI, AMA, ASMA pending Pt with history of hyperlipidemia- Pravastatin noted on home meds US liver (11/07) --> Heterogeneous liver suggestive of hepatocellular disease such as cirrhosis. There is a small amount of ascites surrounding the liver. This is not significant changed compared to the recent CT scan of the abdomen. Sludge in the gallbladder. No definite gallstones or biliary tract obstruction. Mild splenomegaly. - Hyperammonemia - ammonia 76 on November 06 currently 39 Pt on Xifaxan and Lactulose - A-fib with RVR on admission, rate now controlled- Pt on Heparin gtt. - Leukocytosis- ID following- took pt off of Rocephin due to gallbladder sludge- Pt on Cefepime - Anemia- microcytic, hypochromic- Hemoccult stool negative PLAN - JELANI, AMA, ASMA pending - Ceruloplasmin and Alpha 1 antitrypsin pending - Avoid hepatotoxins - Xifaxan - Lactulose - Monitor labs - Further recommendations based on clinical course and results of above Pt has been seen and examined by myself and Dr. Skinner and this note is written on her behalf (Gudelia Jalloh) Gudelia Jalloh November 08, 2017 10:35 Kristen Skinner MD November 08, 2017 17:57
--- NOTE | 2017-11-08 11:02 | HHI.FPPN ---
Subjective Remarks Mrs. Marroquin was afebrile with hypertension (max BP 196/91) and tachypnea overnight ; max respiratory rate 34 bpm. Patient accompanied by who provided history; she has continued to not be responsive or verbal overnight. He expresses concern regarding her mental status. Objective Vitals Vital Signs Date Time Temp Pulse Resp B/P (MAP) Pulse Ox O2 Delivery O2 Flow Rate FiO2 11/08/17 10:00 73 34 175/83 (113) 98 11/08/17 09:00 79 24 196/91 (126) 96 11/08/17 08:00 99.4 76 24 156/79 (104) 97 11/08/17 08:00 98 4.00 11/08/17 07:00 74 32 156/84 (108) 96 11/08/17 06:00 75 11/08/17 04:00 99.1 78 27 150/70 (96) 97 11/08/17 04:00 78 11/08/17 02:00 77 11/08/17 00:00 72 11/08/17 00:00 99.4 72 23 129/60 (83) 94 11/07/17 22:00 78 11/07/17 20:00 87 11/07/17 20:00 99.1 87 22 137/67 (90) 96 11/07/17 19:25 96 Nasal Cannula 3.00 11/07/17 19:00 99 4.00 11/07/17 18:00 79 11/07/17 16:46 79 170/77 11/07/17 16:00 84 11/07/17 16:00 99.4 84 23 188/91 (123) 96 11/07/17 14:00 80 11/07/17 12:00 74 11/07/17 12:00 99.3 74 20 145/75 (98) 97 I/O 11/07/17 11/07/17 11/07/17 11/08/17 11/08/17 11/08/17 06:59 14:59 22:59 06:59 14:59 22:59 Intake Total 777 ml 400 ml 771 ml 348 ml Output Total 1450 ml 1750 ml 1200 ml Balance -673 ml 400 ml -979 ml -852 ml Intake Oral 0 ml IV Total 777 ml 400 ml 771 ml 348 ml Output Urine Total 1450 ml 1750 ml 1200 ml # Bowel Movements 1 5 4 Result Diagram: 11/08/17 0410 11/08/17 0410 Imaging Last Impressions Chest X-Ray 11/08/17 0600 Signed Impressions: Service Date/Time: Wednesday, November 08, 2017 04:16 - CONCLUSION: Stable radiographic appearance most consistent with pulmonary edema. Antonio High Jr., MD Liver Ultrasound 11/07/17 0000 Signed Impressions: Service Date/Time: October 08:05 - CONCLUSION: 1. Heterogeneous liver suggestive of hepatocellular disease such as cirrhosis. There is a small amount of ascites surrounding the liver. This is not significantly changed compared to the recent CT scan of the abdomen. 2. Sludge in the gallbladder. No definite gallstones or biliary tract obstruction. 3. Mild splenomegaly. 4. Mild hydronephrosis of the right collecting system. Markie Crabtree MD Head CT 11/06/17 0000 Signed Impressions: Service Date/Time: Monday, November 06, 2017 10:03 - CONCLUSION: 1. No acute intracranial abnormality or significant interval change. César Coats MD Abdomen X-Ray 11/04/17 0000 Signed Impressions: Service Date/Time: Saturday, November 04, 2017 17:50 - CONCLUSION: Nonspecific intestinal gas pattern Jose Wright MD Abdomen/Pelvis CT 10/31/17 1321 Signed Impressions: Service Date/Time: October 13:58 - CONCLUSION: 1. Development of innumerable small sclerotic lesions in the skeleton most characteristic of sclerotic bony metastatic disease. There is a reported history of malignancy. 2. Hepatomegaly with development of mild ascites. 3. Persistent moderate hydronephrosis with perinephric stranding similar to February 2017. Interval development of mild anasarca. 4. Gallbladder sludge. Jacobsen catheter in bladder. Samuel Lin MD Lung Scan- Nuclear Medicine 10/31/17 0000 Signed Impressions: Service Date/Time: October 15:00 - CONCLUSION: Low probability scan for pulmonary embolism Jose Wright MD Objective Remarks GENERAL: This is a well-nourished, well-developed patient, on ventilator and sedation. SKIN: No rashes, ecchymoses or lesions. Cool and dry. EYES: No conjunctival injection. Constricted pupils; no asymmetry. Patient did not follow with eyes to assess EOM ENT: Nose without bleeding or purulent drainage. Airway patent. NECK: Trachea midline. CARDIOVASCULAR: Normal rate and rhythm. Normal distal LE perfusion bilaterally RESPIRATORY: Normal rate. No focal congestion or wheezing to auscultation GASTROINTESTINAL: Abdomen soft, distended. Normal bowel sounds. MUSCULOSKELETAL: No calf asymmetry or pain to palpation NEUROLOGICAL: Patient would make sounds to questions but no comprehensible responses. She would not follow commands. A/P Assessment and Plan Patient is a 72-year-old admitted due to septic shock from urinary source; patient also with sclerotic bony lesions concerning for colon cancer metastasis. Due to respiratory decline/multiorgan failure, patient on ventilator since . Critical care, Nephrology, and infectious disease consulted. Patient extubated 11/05; has had altered mental status since extubation Discharge Planning Prognosis unclear at this time Critical Care managing at this time, appreciate care of patient Notably asserts patient is full code Problem List: (1) Sepsis ICD Codes: A41.9 - Sepsis, unspecified organism Status: Acute Plan: Impression: Septic shock on admission; labs suggestive of multiorgan dysfunction. Patient with low MAP despite 4 L IVF Patient placed on Phenylephrine. Patient developed respiratory failure and required intubation Labs: Cr: 2.10 (10/31)-> 3.53 (11/04) -> 2.84 (11/05) -> 2.29-> 1.81 (11/07) -> 1.48 (11/08 ) WBC: 15.8 (10/31)-> 2.1 (11/02)-> 20.3 (11/03) -> 17.7 (11/04) -> 22.2 (11/06) -> 25 (11/07) -> 21.9 (11/08) Lactic acid: 3 (10/31) -> 3.3 (11/02) -Critical care consulted -Continue antibiotic therapy -Infectious disease consulted -Start Cefepime 2gm q8hrs -Nephrology consulted -Continue to monitor CBC, BMP, urine output -Continue to monitor VS; pressors discontinued and intermittent HTN Antibiotic history: s/p Meropenem 2gm q12hrs IV -s/p Zosyn 2.5mg q6hrs (10/31-11/02) -s/p Tobramycin IV x1 11/02 -s/p Rocephin 11/03-11/06 Cultures: 11/05 -Sputum culture negative x48hrs 10/31- blood x2 taylor sensitive E Coli 10/31- urine- taylor sensitive E coli 11/02- blood x2- negative x5 days (2) Altered mental state ICD Codes: R41.82 - Altered mental status, unspecified Status: Acute Plan: Impression: Persistent lack of orientation after extubation 11/05. No focal deficits. History of TIA. On Heparin anticoagulation CT head on admission (ordered due to confusion on admission; suspected secondary to sepsis) w/o acute findings. Remote lacunar infarct in right frontal white matter Repeat head CT 11/06 without acute intracranial abnormality Labs: Leukocytosis. Some hypocalcemia. Normal sodium. Ammonia 76 11/06 -> 39 (11/08) LFT elevations- persistent TBILI mild elevation (~1.4), mild AST and ALT elevations, normal ALKP ABG 11/07- pH 7.34, CO2 37, HCO3 20 -Continue management per Critical care; suspect multifactorial. off of sedation since extubation. Suspect possible hepatic encephalopathy as component -Hyperammonemia -Continue Lactulose TID -rifaximin 550mg BID added -Monitor ammonia -Evaluation for tother etiologies -Due to prior concern for possible metastatic disease and as well as prior TIA and tramautic brain disease, will check MRI (will avoid contrast due to recent renal injury) -Will check EEG -Supportive care; monitor labs -Tube feeds with Jevity due to altered mental status (3) ASH (acute kidney injury) ICD Codes: N17.9 - Acute kidney failure, unspecified Status: Acute Plan: 11/07: Cr improved (2.84 11/05-> 2.29 11/06-> 1.81 11/07). 3100ml output overnight 11/08: Cr continues to improve; 1.48 today. 2950ml output Impression: renal injury presumed secondary to septic shock/multiorgan dysfunction Cr- 2.12 on admission-> 2.59 (11/02) -> 3.53 (11/04) -> downtending CT abdomen/pelvis- moderate hydronephrosis w/ perinephric stranding similar to . Interval development of mild anasarca. -Continue to monitor urine output w/ jacobsen -Nephrology consulted -Continue IVF (100ml/hr NS, Albumin), antibiotics -Continue to monitor urine output/BMP -Ca replacement -Urology consulted for hydronephrosis -Continue Jacobsen, antibiotics -Do not suspect obstruction; do not recommend stent placement -Recommend renal US next week (4) Elevated LFTs ICD Codes: R79.89 - Other specified abnormal findings of blood chemistry Status: Acute Plan: Impression: Patient with normal LFT's on admission-> mild transaminase elevations: (11/02- TBILI 1.7, AST 122, ALT 62, ALKP 54 -> 11/07- TBILI 1.4, AST 77, ALT 122, ALKP65) Suspect likely related to sepsis/organ injury -Continue to monitor LFT's -Liver US per CC- heterogenous liver suggestive of hepatocellular disease such as cirrhosis. Small ascites; not recently changed since last CT. Sludge in gallbladder; no definite gallstones. Mild splenomegaly. Mild hydronephrosis -Ceftriaxone stopped per ID (5) Respiratory failure, acute ICD Codes: J96.00 - Acute respiratory failure, unspecified whether with hypoxia or hypercapnia Status: Resolved Plan: Impression: Patient intubated 11/02 for tachypnea and respiratory distress ; ABG 11/02 with pH 7.18, CO2 52. 11/03- failed CPAP trials. CXR with persistent hazy opacities at bases 11/04- Remains on ventilator, sedated. 11/05- Extubated 11/06- stable respirations while extubated 11/07- O2 sats >95% on 3 L O2 via NC ABG- pH 7.34, CO2 37, HCO3 20 11/08- Stable O2 sats>95% on 4 L O2; intermittent tachypnea. CXR 11/08 suggestive of pulmonary edema -Continue management per Critical care -Duonebs q6hrs as needed -Stopped Hydrocortisone 100mg IV q8hrs 11/06 (6) UTI (urinary tract infection) ICD Codes: N39.0 - Urinary tract infection, site not specified Plan: Impression: UA with large leukocyte esterase, innumerable WBCs, many WBC clumps Urine culture and blood cultures 10/31 with pansensitive E Coli -Management as above for sepsis (7) Hypertension ICD Codes: I10 - Essential (primary) hypertension Status: Chronic Plan: 11/07- persistent HTN Impression: PMH HTN. Initial hypotension on admission w/ septic shock. Now intermittent hypertension based on agitation/sedation -Continue to monitor; management per CC -Start Metoprolol 25mg q8 hrs -Hydralazine 20mg IV q4hrs PRN -Clonidine 0.2mg PRN -Labetalol 10mg IV q4hrs PRN (8) Atrial fibrillation ICD Codes: I48.91 - Unspecified atrial fibrillation Status: Chronic Plan: Impression: patient placed on amiodarone drip and given digoxin for afib with RVR on admission. Patient currently with normal rate/sinus rhythm. Patient with reported history of moderate mitral stenosis and mild/moderate aortic stenosis Echocardiogram- moderate concentric LVF. EF 70%. Aortic sclerosis present. Moderate /severe pulmonary HTN (60-70mmHg) Initially placed on heparin drip-> PO Amiodarone; currently on hold with sinus rhythm -Continue telemetry/monitoring VS -Continue IV heparin; plan to transition to Xarelto once normal renal function -Continue amiodarone as needed. 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 [id number]. s/p Zeloda 08/2016. Abdomen/Pelvis CT 10/31/17: Innumerable small sclerotic lesions in the skeleton, most characteristic of sclerotic bony metastatic disease -Dr. Candelario consulted -recent bone scan w/o uptake; reassuring regarding sclerotic lesions -plan for PET as outpatient -Continue heparin, treatment for sepsis (10) Weakness ICD Codes: R53.1 - Weakness Status: Acute Plan: -PT consulted; will evaluate once extubated/improving (11) Diabetes mellitus, type II ICD Codes: E11.9 - Type 2 diabetes mellitus Status: Chronic Plan: Will hold home medications -Low dose SSI, per Critical Care protocol -Continue to monitor blood sugar (12) Hypothyroidism ICD Codes: E03.9 - Hypothyroidism Status: Chronic Plan: Continue home Levothyroxine (13) FEN/PPX Plan: Fluid: Fluid per polish maker -50ml/hr NS -Albumin 25% q12 hrs Electrolytes: Continue to monitor; replacement per protocol Nutrition: Tube feeds with Jevity DVT PPX: Per CC, on heparin gtt at this time Problem Qualifiers (1) Sepsis: Qualified Codes: A41.9 - Sepsis, unspecified organism (2) UTI (urinary tract infection): (3) Hypertension: Qualified Codes: I10 - Essential (primary) hypertension (4) Atrial fibrillation: Qualified Codes: I48.2 - Chronic atrial fibrillation Oscar Santos MD R3 November 08, 2017 11:02
[2017-11-08] MEDS: VASOPRESSIN INJ 40 UNITS in DEXTROSE 5% IN WATER 100ML INJ 98 ML IV SCH ×2 (11:23)
--- NOTE | 2017-11-08 15:30 | RADRPT ---
EXAM DATE/TIME: 11/08/2017 14:49 [facility] COMPARISON: MRI BRAIN W/O CONTRAST, February 16, 2015, 13:15. INDICATIONS : Altered mental status. MEDICAL HISTORY : Carcinoma, colon. Hypertension. Diabetes mellitus type 2. SURGICAL HISTORY : Colon resection. Umbilical hernia repair. ENCOUNTER: Initial ACUITY: 1 day PAIN SCORE: 0/10 LOCATION: Head TECHNIQUE: Multiplanar, multisequence MRI of the brain was performed without contrast. FINDINGS: CEREBRUM: The ventricles are normal for age. No evidence of midline shift, mass lesion, hemorrhage or acute in farction. No extraaxial fluid collections are seen. The pituitary gland and suprasellar cistern are normal in configuration. WHITE MATTER: Minimal periventricular white matter changes. Old lacunar type infarct at the junction of the right c entrum semiovale and jordan radiata. POSTERIOR FOSSA: The cerebellum and brainstem are intact. The 4th ventricle is midline. The cerebellopontine angle is unremarkable. The cerebellar tonsils are normal in position. DIFFUSION IMAGING: No focal areas of restricted diffusion are seen. No evidence of acute infarction. EXTRACRANIAL: The visualized portions of the orbits and paranasal sinuses are unremarkable. CONCLUSION: 1. 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 2. Nothing acute. Jj Alvarez MD on November 08, 2017 at 15:25 Board Certified Radiologist. This report was verified electronically.
--- NOTE | 2017-11-08 15:59 | HHI.NPPN ---
Subjective General Problems: Anemia, Edema, Hypotension, Mebatolic Acidosis Renal Failure: Acute History of Present Illness 72-year-old female with past medical history of hypertension, diabetes mellitus, hyperlipidemia, atrial fibrillation, history of colon cancer, history of acute kidney injury in the past. She was admitted with complaint of worsening shortness of breath and recurrent falls. I was called to see the patient because of elevated BUN and creatinine. The patient was seen by me when she was here in February of last year. At that time, she also has acute kidney injury and her creatinine was as high as 1.8, but it was improving and it went down to 0.6-0.7 which is her baseline. Additional Remarks Minimally responsive. Creatinine continues to improve. (Nataly Ramos) Review of Systems General General Remarks Not able to do review of system secondary to mental status. (Nataly Ramos) Objective Data Data Vital Signs Date Time Temp Pulse Resp B/P (MAP) Pulse Ox O2 Delivery O2 Flow Rate FiO2 11/08/17 10:00 73 11/08/17 10:00 73 34 175/83 (113) 98 11/08/17 09:00 79 11/08/17 09:00 79 24 196/91 (126) 96 11/08/17 09:00 98 Nasal Cannula 3.00 11/08/17 08:00 76 11/08/17 08:00 99.4 76 24 156/79 (104) 97 11/08/17 08:00 98 4.00 11/08/17 07:00 74 11/08/17 07:00 74 32 156/84 (108) 96 11/08/17 06:00 75 11/08/17 04:00 99.1 78 27 150/70 (96) 97 11/08/17 04:00 78 11/08/17 02:00 77 11/08/17 00:00 72 11/08/17 00:00 99.4 72 23 129/60 (83) 94 11/07/17 22:00 78 11/07/17 20:00 87 11/07/17 20:00 99.1 87 22 137/67 (90) 96 11/07/17 19:25 96 Nasal Cannula 3.00 11/07/17 19:00 99 4.00 11/07/17 18:00 79 11/07/17 16:46 79 170/77 11/07/17 16:00 84 11/07/17 16:00 99.4 84 23 188/91 (123) 96 (Nataly Ramos) -: 11/08/17 0410 11/08/17 0410 Tubes & Lines: Gallo (Nataly Ramos) Physical Exam Eyes Eye Exam: Pupils Equal (Nataly Ramos) Throat Throat Exam: Oral Mucosa [place] & Moist (Nataly Ramos) Neck Neck Exam: Neck Supple (Nataly Ramos) Pulmonary Resp Exam: Rhonchi, Sputum, Decreased Bases, Diminished Breath Sounds, Poor Inspiratory Effort (Nataly Ramos) Cardiology CV Exam: Irregular (Nataly Ramos) Gastrointestinal/Abdomen GI Exam: Soft, Non-Tender, Bowel Sounds Present, Distended (Nataly Ramos) Extremeties Extremities Exam: Moderate Edema, Pitting Edema, Dependent Edema (Nataly Ramos) Neurologic Neuro Remarks lethargic (Nataly Ramos) Assessment/Plan Assessment Summary: ASH/Acute Renal Failure Problem List: (1) Diabetes mellitus, type II ICD Codes: E11.9 - Type 2 diabetes mellitus Status: Chronic (2) PNA (pneumonia) ICD Codes: J18.9 - Pneumonia, unspecified organism Status: Acute (3) Hypothyroidism ICD Codes: E03.9 - Hypothyroidism Status: Chronic (4) Atrial fibrillation ICD Codes: I48.91 - Unspecified atrial fibrillation Status: Chronic (5) Acute kidney failure ICD Codes: N17.9 - Acute kidney failure, unspecified (6) UTI (urinary tract infection) ICD Codes: N39.0 - Urinary tract infection, site not specified (7) Sepsis due to Gram-negative organism with septic shock ICD Codes: A41.50 - Gram-negative sepsis, unspecified; R65.21 - Severe sepsis with septic shock Status: Resolved Plan Patient has chronic kidney disease and develop ASH. Creatinine improving at 1.48 from 1.81 Urinary output at 2.9 L/24 hours Has elevated liver enzymes scheduled lactulose Hypokalemia replacement ordered and recheck scheduled Hypernatremia at 149 will change IVF's. BP is stable. Continue antibiotics. Avoid Nephrotoxins, and follow the BMP. Labs in AM (Nataly Ramos) Plan Patient seen and examined, agree with above. Creatinine improving also has some improvement in LFT. D/W the at bed side. (Aixa Figueroa MD) Problem Qualifiers (1) Atrial fibrillation: Qualified Codes: I48.2 - Chronic atrial fibrillation (2) UTI (urinary tract infection): Nataly Ramos November 08, 2017 15:59 Aixa Figueroa MD November 11, 2017 19:32
--- NOTE | 2017-11-08 16:20 | HHI.CCPN ---
Subjective Remarks/Hospital Course 72-year-old female with a medical history significant for colon cancer, hypertension, hyperlipidemia, atrial fibrillation status post previous ablation , type 2 diabetes mellitus who presented to the ER with generalized weakness and was hypotensive on arrival. She was diagnosed to have a UTI/sepsis. She received 4 L fluids in the ER with systolic blood pressure coming up to the 90s however was tachycardic with heart rate going up to 130s atrial fibrillation. She had a negligible urine output despite 4 L IV fluids and an elevated lactic acid with concern for severe sepsis and acute kidney injury. Patient was admitted by family medicine service and critical care consult was requested by ER physician. I evaluated the patient in the ER. At that time she was on 2 L nasal cannula maintaining O2 sats around 98%. Her systolic blood pressure was in the mid 90 range. She was in atrial fibrillation with heart rate ranging from 110-120s. Patient was awake and alert at the time of my evaluation and was following commands appropriately. She denied any worsening shortness of breath or chest pain at the time. She did have some abdominal discomfort. She appeared slightly tachypneic. She had already received empiric antibiotic coverage. History was obtained by discussion with , ER physician, family medicine residents and review of records. Patient has reportedly not had anything to eat or drink for 30 hours prior to admission. She has been having burning with urination over the past 2 days. Patient had a head CT which was unremarkable, CT abdomen pelvis revealed moderate hydronephrosis, VQ scan was low probability for PE. 11/01: Patient appears critical, tachypneic. Urine output marginal 200 mL overnight shift time. Blood cultures 4 out of 4 bottles positive for gram- negative rods. Currently on 40 mcg/min of Raymond-Synephrine. Remaisn in A fib with RVR. Will start Amiodarone gtt, attempt rate control/cardioverted. Previous echo done last year shows EF 55-60%, moderate mitral stenosis, mild to moderate aortic stenosis, moderate TR, also will hold Xarelto start IV heparin 11/02: Patient remains very critically ill and septic shock now in respiratory failure. Overnight required intubation for tachypnea and respiratory distress. Received a dose of tobramycin Sensitivities are pending for E. coli. White count has dropped to 2.1 creatinine is 2.12 today. Will discontinue Zosyn and start renally dosed meropenem. Remains on amiodarone infusion heart rate slightly better controlled. Raymond-Synephrine just weaned off, but currently patient is hypotensive with maps 61 11/03: Remains very critical. Failed CPAP trials. Off pressors but urine output is decreasing creatinine has increased BUN 59/creatinine 3.36. WBC count elevated to 20.3 with a 22% bands. E. coli is pansensitive DC meropenem and start Rocephin. 11/04: Remains sedated, orally intubated on mechanical ventilation. On Levophed 2 mics per minute for hypotension. Failed CPAP trial yesterday. 11/05: Arousable off sedation. On mechanical ventilation. Daily CPAP trials ongoing. 11/06: Extubated yesterday, weak but breathing comfortably. Hypertensive. WBC 22.2, but clinically improving, possibly steroid induced. Will DC Hydrocortisone 11/07. Patient remains encephalopathy. But moving all extremities appears to be protecting airway. States of few words. But did not open eyes. WBC is 25.6. BUN 49 creatinine 1.81 urine output 1.6 L. Ammonia level was 71 yesterday, lactulose changed to scheduled. Had 2 bowel movements overnight repeat ammonia today. Remains hypotensive, insert NG tube for medication and nutrition. Start scheduled metoprolol 25 every 8 hours 11/08: The patient was noted to be still lethargic. No spontaneous eye opening, not even stating words today. Clonidine discontinued as as needed medication for hypertension. If needed will increase metoprolol every 8 hours. Patient continues on hydralazine and labetalol as needed for hypertension. Patient remains n.p.o.. Pravastatin placed on hold 2/2 elevated LFTs. Objective Vital Signs Date Time Temp Pulse Resp B/P (MAP) Pulse Ox O2 Delivery O2 Flow Rate FiO2 11/08/17 10:00 73 11/08/17 10:00 34 175/83 (113) 98 11/08/17 09:00 Nasal Cannula 3.00 11/08/17 08:00 99.4 11/05/17 09:37 40 Intake and Output 11/08/17 11/08/17 11/09/17 08:00 16:00 00:00 Intake Total 348 ml Output Total 1200 ml Balance -852 ml Result Diagram: 5/18/18 0410 5/18/18 0410 Imaging Last 48 hours Impressions Chest X-Ray 11/03/17 0600 Signed Impressions: Service Date/Time: Friday, November 03, 2017 04:01 - CONCLUSION: No significant change. Robe Menchaca MD Last Impressions Head CT 10/31/17 1321 Signed Impressions: Service Date/Time: October 14:02 - CONCLUSION: 1. No acute intracranial findings. Left sphenoid sinusitis. Remote lacunar infarct right frontal white matter. Samuel Lin MD Abdomen/Pelvis CT 10/31/17 1321 Signed Impressions: Service Date/Time: October 13:58 - CONCLUSION: 1. Development of innumerable small sclerotic lesions in the skeleton most characteristic of sclerotic bony metastatic disease. There is a reported history of malignancy. 2. Hepatomegaly with development of mild ascites. 3. Persistent moderate hydronephrosis with perinephric stranding similar to February 2017. Interval development of mild anasarca. 4. Gallbladder sludge. Gallo catheter in bladder. Samuel Lin MD Lung Scan-V Nuclear Medicine 10/31/17 0000 Signed Impressions: Service Date/Time: October 15:00 - CONCLUSION: Low probability scan for pulmonary embolism Jose Wright MD Chest X-Ray 10/31/17 0000 Signed Impressions: Service Date/Time: October 12:24 - CONCLUSION: No acute disease. Heart size appears enlarged. Jose Pablo MD Objective Remarks Gen: 72-year-old critically ill female who is lying on bed, lethargic somnolent , no spontaneous eye open HEENT: No pallor or icterus Neck: No JVD Chest/pulmonary: Air entry equal bilaterally, slightly diminished at the bases Cardiovascular: Sinus rhythm now, no gallop or murmur. GI/abdomen: Soft, no tenderness, bowel sounds present. Distended, no rebound Extremities: Warm bilaterally, trace edema Neuro: Somnolent. Moves all 4 extremities no focal deficit. She can state a few words but did not open eyes. Positive gag ,lid reflexes A/P Assessment and Plan 72-year-old female with: ASSESSMENT: Acute metabolic encephalopathy Hyperammonemia Severe sepsis Acute respiratory failure-extubated 11/05/17 Acute kidney failure/ATN Atrial fibrillation with RVR, now NSR E Coli bacteremia/UTI with E. coli Lactic acidosis Elevated liver enzymes Moderate hydronephrosis Chronic atrial fibrillation Moderate mitral stenosis, mild to moderate aortic stenosis, moderate tricuspid regurgitation History of pulmonary embolism Colon cancer with suspected metastatic disease Vitamin B12 deficiency Diabetes Type 2 - on insulin h/o Hypertension Hyperlipidemia Depression Hypothyroidism h/o CVA h/o PE (03/2017) h/o Pyelo/PNA (03/2017 requiring intubation) Pulmonary edema PLAN: Neuro: -Off all sedation -Discontinue clonidine utilize for hypertension as needed, secondary to possible contribution of lethargic -Continue lactulose, and rifaximin repeat ammonia level -PT/OT speech -11/08 MRI-chronic changes old lacunar infarct no acute abnormality Cardiovascular: -Hypertensive now, use labetalol and hydralazine IV as needed. Clonidine discontinued. -Start scheduled metoprolol 25 p.o. every 8 hours. Increase metoprolol if needed -Discontinued stress dose steroids 11/06 -On IV amiodarone since 11/01. Transitioned to p.o. amiodarone 11/06 -IV digoxin as needed -Holding Xarelto for anticoagulation, Continue IV heparin -Need rate control due to moderate mitral stenosis and mild to moderate aortic stenosis, currently NSR Pulmonary: -Intubated 11/01/17 for acute respiratory failure, extubated 11/05/17 -Check ABG chest x-ray today due to worsening mental status-11/08 chest x-ray pulmonary edema-Lasix 40 mg IVP -DuoNeb every 6 hours and as needed -EzPAP, Acapella, IS, as tolerated GI/liver: -Pepcid for GI prophylaxis. Insert NGT p.o. meds and nutrition -Start tube feedings with Jevity after getting US liver rule out cholecystitis Renal/: -Gallo catheter. Strict intake output, monitor and replete electrolytes, follow BUN/creatinine. -Nephrology following. Urine output is adequate. Creatinine improving 1.81 today -Urology consulted in the setting of moderate hydronephrosis with renal failure , did not recommend stent placement ID: -Continue Rocephin, E. coli is pansensitive. Check C. difficile, check ultrasound of the liver -1 dose of tobramycin given overnight on 11/01 prior to cultures stu available -Blood and urine culture pansensitive E. coli -ID following Heme-onc: -Dr. Candelario following for history of colon cancer in suspected metastatic lesions on CT abdomen pelvis. -Need PET scan when stable Endocrine: -SSI for glycemic control. -Vitamin B12 level is low.vitamin B12 injections 1000 mcg IM daily for 10 days then monthly Prophylaxis: -Pepcid/SCDs. Holding Xarelto, continue IV heparin (IV heparin for Cindy nunez, also for history of pulmonary embolism last year, she is high risk due to underlying malignancy) Access: -Has peripheral IVs and port. Central line if needed Patient's condition is critical worsening encephalopathy is now concerning for ongoing or worsening sepsis. Patient may further decompensate and may require mechanical ventilatory support. Further workup with ultrasound abdomen and C. difficile pending. Avoidance of sedative type medication clonidine discontinued patient will require rate control will consider increasing metoprolol if needed I discussed current clinical status with patient's at bedside including plan of care and he voiced understanding and was agreeable. my billing statement This patient remains critically ill with one or more organ systems which are or may become a threat to life. I have spent in excess of 47 minutes discontinuously in the care and management of this patient. This time is exclusive of procedures, and includes, but is not limited to, evaluation of the patient, review of the medical record, discussions with family, consultants, nursing staff, or respiratory therapy, and documentation in the medical record. Physician Oksana Issa MD November 08, 2017 16:20
[2017-11-08] MEDS ORDERED: FUROSEMIDE 40 MG/4 ML VIAL IV PUSH ONE (16:30)
--- NOTE | 2017-11-08 17:17 | MG ---
cc: Jose Eduardo Snell MD, Mandeep MD EEG NUMBER [id number] A 2-3 Hz delta activity, 20-50 microvolts with occasional 4-5 Hz theta. Frontal triphasic waves occurring at times. Frequent eye movement artifact. Single lead EKG showing some irregularity. IMPRESSION: Moderate encephalopathy, cardiac arrhythmia. Clinical correlation. MD JULIANNA Gill/ , 05:00 PM , 05:17 PM
[2017-11-08] MEDS: DEXTROSE 5%-NACL 0.225% INJ 1,000 ML IV SCH (18:24)
--- NOTE | 2017-11-08 19:50 | PD.ONC.PN ---
Subjective Subjective Remarks Not responsive. No bleeding. at the bedside. Objective Data Date Time Temp Pulse Resp B/P (MAP) Pulse Ox O2 Delivery O2 Flow Rate FiO2 11/08/17 18:30 88 23 197/95 (129) 90 11/08/17 18:00 86 11/08/17 18:00 82 47 189/88 (121) 93 11/08/17 17:30 82 47 182/85 (117) 92 11/08/17 17:00 84 49 179/85 (116) 93 11/08/17 17:00 84 11/08/17 16:30 86 22 207/98 (134) 91 11/08/17 16:00 98.6 86 30 187/115 (139) 89 11/08/17 16:00 86 11/08/17 15:30 83 22 165/79 (107) 95 11/08/17 14:36 82 24 176/81 (112) 98 11/08/17 14:30 79 24 179/83 (115) 98 11/08/17 14:00 87 24 188/93 (124) 98 11/08/17 14:00 87 11/08/17 13:00 79 11/08/17 13:00 79 24 161/79 (106) 98 11/08/17 12:30 80 24 176/84 (114) 96 11/08/17 12:00 80 11/08/17 12:00 99.2 80 25 199/89 (125) 96 11/08/17 11:30 75 37 144/66 (92) 98 11/08/17 11:00 78 45 154/73 (100) 95 11/08/17 10:00 73 11/08/17 10:00 73 34 175/83 (113) 98 11/08/17 09:00 79 11/08/17 09:00 79 24 196/91 (126) 96 11/08/17 09:00 98 Nasal Cannula 3.00 11/08/17 08:00 76 11/08/17 08:00 99.4 76 24 156/79 (104) 97 11/08/17 08:00 98 4.00 11/08/17 07:00 74 11/08/17 07:00 74 32 156/84 (108) 96 11/08/17 06:00 75 11/08/17 04:00 99.1 78 27 150/70 (96) 97 11/08/17 04:00 78 11/08/17 02:00 77 11/08/17 00:00 72 11/08/17 00:00 99.4 72 23 129/60 (83) 94 11/07/17 22:00 78 11/07/17 20:00 87 11/07/17 20:00 99.1 87 22 137/67 (90) 96 11/08/17 11/08/17 11/08/17 07:00 15:00 23:00 Intake Total 348 ml 150 ml 2250 ml Output Total 1200 ml 2200 ml Balance -852 ml 150 ml 50 ml Result Diagram: 11/08/17 0410 11/08/17 1525 Laboratory Results Laboratory Tests Test 11/08/17 04:10 11/08/17 04:25 11/08/17 15:25 White Blood Count 21.9 TH/MM3 Red Blood Count 3.81 MIL/MM3 Hemoglobin 9.9 GM/DL Hematocrit 30.4 % Mean Corpuscular Volume 79.8 FL Mean Corpuscular Hemoglobin 25.9 PG Mean Corpuscular Hemoglobin Concent 32.5 % Red Cell Distribution Width 17.2 % Platelet Count 184 TH/MM3 Mean Platelet Volume 8.6 FL Neutrophils (%) (Auto) 87.4 % Lymphocytes (%) (Auto) 6.8 % Monocytes (%) (Auto) 4.9 % Eosinophils (%) (Auto) 0.5 % Basophils (%) (Auto) 0.4 % Neutrophils # (Auto) 19.1 TH/MM3 Lymphocytes # (Auto) 1.5 TH/MM3 Monocytes # (Auto) 1.1 TH/MM3 Eosinophils # (Auto) 0.1 TH/MM3 Basophils # (Auto) 0.1 TH/MM3 CBC Comment AUTO DIFF Differential Total Cells Counted 100 Neutrophils % (Manual) 71 % Band Neutrophils % 15 % Lymphocytes % 5 % Monocytes % 3 % Neutrophils # (Manual) 19.9 TH/MM3 Metamyelocytes 5 % Nucleated Red Blood Cells 3 /100 WBC Differential Comment FINAL DIFF MANUAL Plasma Cells 1 % Toxic Granulation 2+ Platelet Estimate NORMAL Platelet Morphology Comment NORMAL Activated Partial Thromboplast Time 55.3 SEC Blood Urea Nitrogen 46 MG/DL Creatinine 1.48 MG/DL Random Glucose 196 MG/DL Total Protein 6.6 GM/DL Albumin 2.6 GM/DL Calcium Level 7.9 MG/DL Magnesium Level 2.0 MG/DL Alkaline Phosphatase 80 U/L Aspartate Amino Transf (AST/SGOT) 38 U/L Alanine Aminotransferase (ALT/SGPT) 75 U/L Total Bilirubin 1.1 MG/DL Sodium Level 149 MEQ/L Potassium Level 2.9 MEQ/L 3.5 MEQ/L Chloride Level 116 MEQ/L Carbon Dioxide Level 22.0 MEQ/L Anion Gap 11 MEQ/L Estimat Glomerular Filtration Rate 35 ML/MIN Iron Level 31 MCG/DL Total Iron Binding Capacity 227 MCG/DL Percent Iron Saturation 13.7 % Ferritin 184 NG/ML Tumor Marker Alpha Fetoprotein 1.4 NG/ML Anti-Nuclear Antibody Screen POS Hepatitis A IgM Antibody NONREACTIVE Hepatitis B Surface Antigen NONREACTIVE Hepatitis B Core IgM Antibody NONREACTIVE Hepatitis C IgG Antibody NONREACTIVE Ammonia 39 MCMOL/L Imaging Studies Last 24 hours Impressions Chest X-Ray 11/08/17 0600 Signed Impressions: Service Date/Time: Wednesday, November 08, 2017 04:16 - CONCLUSION: Stable radiographic appearance most consistent with pulmonary edema. Antonio High Jr., MD Brain MRI 11/08/17 0000 Signed Impressions: Service Date/Time: Wednesday, November 08, 2017 14:49 - CONCLUSION: 1. 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 2. Nothing acute. Jj Alvarez MD Administered Medications Medications (Trade) Dose Ordered Sig/Chiqui Route PRN Reason Start Time Stop Time Status Last Admin Dose Admin Amiodarone HCl (Cordarone) 200 mg DAILY PO 11/01/17 09:00 Future hold 11/08/17 08:35 Fluoxetine HCl (PROzac) 20 mg DAILY PO 11/01/17 09:00 11/08/17 08:35 Levothyroxine Sodium (Synthroid) 50 mcg DAILY@0600 PO 11/01/17 06:00 11/08/17 05:42 Pravastatin Sodium (Pravachol) 40 mg DAILY PO 11/01/17 09:00 Future Hold 11/08/17 08:36 Venlafaxine HCl (Effexor Xr) 75 mg DAILY PO 11/01/17 09:00 11/08/17 08:35 Sodium Chloride (NS Flush) 2 ml BID IV FLUSH 10/31/17 21:00 11/08/17 08:36 Acetaminophen (Tylenol) 650 mg Q4H PRN PO TEMP > 100.4 10/31/17 15:30 11/01/17 19:50 Senna/Docusate Sodium (Elsa-Colace) 1 tab BID PO 10/31/17 21:00 11/07/17 20:04 Sennosides (Senokot) 17.2 mg Q12H PRN PO Moderate constipation 10/31/17 15:30 11/04/17 08:19 Insulin Aspart (NovoLOG SUPPLEMENTAL SCALE) 1 ACHS SLIDING SCALE SQ 10/31/17 17:00 11/08/17 17:46 Ondansetron HCl (Zofran Odt) 4 mg Q6H PRN PO NAUSEA OR VOMITING 10/31/17 15:30 11/07/17 20:48 Miscellaneous Information ([facility] Nursing Information) Patient in critical care unit? Ass... [id number] .XX 10/31/17 23:15 10/31/17 23:15 Heparin Sodium/ Dextrose 250 ml @ 10 mls/hr TITRATE PRN IV Coagulation Management 11/01/17 09:00 11/08/17 18:31 Albumin Human 50 ml @ 60 mls/hr Q12H IV 11/01/17 09:00 11/08/17 08:36 Cyanocobalamin (Vitamin B12 Inj) 1,000 mcg DAILY SQ 11/01/17 11:00 11/11/17 10:59 11/08/17 08:36 Acetaminophen/ Hydrocodone Bitart (Hardwick 5-325 Mg) 1 tab Q4H PRN PO PAIN GREATER THAN 5 11/01/17 13:15 11/08/17 16:41 Temazepam (Restoril) 15 mg HS PRN PO INSOMNIA 11/01/17 22:00 11/01/17 22:43 Chlorhexidine Gluconate (Peridex 0.12% Liq) 15 ml BID@08,20 MT 11/02/17 08:00 11/08/17 09:01 Vasopressin 40 units/Dextrose 100 ml @ 6 mls/hr [id number] IV 11/02/17 05:23 11/02/17 05:35 Labetalol HCl (Trandate Inj) 10 mg Q4H PRN IV PUSH SBP greater than 160mm Hg 11/05/17 10:45 11/06/17 18:48 Hydralazine HCl (Apresoline Inj) 20 mg Q4H PRN IV PUSH SYS BP GREATER THAN 160 MMHG 11/06/17 07:30 11/07/17 18:06 Lactulose (Lactulose Liq) 30 ml Q8H PO 11/06/17 09:00 11/08/17 17:46 Potassium Chloride 100 ml @ 50 mls/hr Q2H PRN IV For Potassium 2.8 - 3.2 mEq/L 11/07/17 07:45 11/08/17 06:17 Potassium Bicarb/ Potassium Chloride (K-Lyte Cl Eff) 50 meq UNSCH PRN PO For Potassium 3.3 - 3.5 mEq/L 11/07/17 07:45 11/08/17 17:55 Potassium Chloride 100 ml @ 25 mls/hr UNSCH PRN IV For Potassium 3.3 - 3.5 mEq/L 11/07/17 07:45 11/08/17 08:35 Metoprolol Tartrate (Lopressor) 25 mg Q8HR PO 11/07/17 07:45 11/08/17 16:41 Rifaximin (Xifaxan) 550 mg BID PO 11/07/17 21:00 11/08/17 08:35 Cefepime HCl 2000 mg/Sodium Chloride 100 ml @ 200 mls/hr Q12H IV 11/08/17 13:00 11/08/17 11:57 Dextrose/Sodium Chloride 1,000 ml @ 84 mls/hr [id number] IV 11/08/17 17:00 11/08/17 18:24 Objective Remarks GENERAL: Well-nourished, well-developed patient. Not responsive. SKIN: Warm and dry. HEAD: Normocephalic. EYES: No scleral icterus. No injection or drainage. NECK: Supple, trachea midline. No JVD or lymphadenopathy. LYMPHATIC: No adenopathy. CARDIOVASCULAR: Regular rate and rhythm without murmurs. RESPIRATORY: Breath sounds equal bilaterally. No accessory muscle use. GASTROINTESTINAL: Abdomen soft, non-tender, nondistended. EXTREMITIES: No cyanosis, or edema. MUSCULOSKELETAL: Adequate muscle tone. NEUROLOGICAL: No obvious focal deficit. Not responsive Assessment/Plan Problem List: (1) Cancer, colon ICD Codes: C18.9 - Malignant neoplasm of colon, unspecified Status: Acute (2) Sepsis due to Gram-negative organism with septic shock ICD Codes: A41.50 - Gram-negative sepsis, unspecified; R65.21 - Severe sepsis with septic shock Status: Resolved (3) Pulmonary emboli ICD Codes: I26.99 - Other pulmonary embolism without acute cor pulmonale Status: Chronic Assessment 1. Septic shock due to urinary tract infection/pyelonephritis. She started having left back pain and increased weakness on . She had fever up to 103.4 when she came to the hospital. Blood culture grew E.Coli which is pansensitive. Repeat blood cultures now negative. 2. Leukocytosis due to urinary tract infection. She has 28% bandemia. Improving. The persistent leukocytosis is due to steroid. 3. History of sigmoid colon adenocarcinoma, status post resection. Pathologic stage [id number]. She has high risk colon cancer. She completed adjuvant Xeloda 08/2016. Recent CT showed widespread sclerotic bone lesions; however, bone scan did not show any uptake. She has no significant bone pain. The lesion was too small for biopsy. She could not complete the PET/CT last week due to weakness. She will need a PET scan once discharged from the hospital for further evaluation. 4. History of pulmonary embolism developed when she was admitted to the hospital last year with sepsis. She was on Xarelto. Her V/Q scan showed low probability for pulmonary embolism. She is now on heparin due to acute renal failure. No bleeding noted. 5. Acute renal failure likely due to ATN secondary to septic shock. Improving. 6. Anemia due to the sepsis and renal failure. She also had mild thrombocytopenia. She likely has a low-grade consumptive process. Platelet trended back up to normal. Hgb stable, no bleeding noted. 7. Altered mental status . MRI brain negative. May be due to sedative drugs not clearing her system yet. Plan PLAN: 1. Discussed with the patient's . 2. Continue supportive care. 3. Continue heparin.. Sly Candelario MD November 08, 2017 19:50
[2017-11-08] MEDS: LABETALOL HCL 100 MG/20 ML VIAL IV PUSH PRN (20:34)
[2017-11-08] MEDS: hydrALAZINE HCL 20 MG/ML VIAL IV PUSH PRN (22:34)
[2017-11-09] VITALS (13 sets, daily range): BP systolic 121–190; BP diastolic 58–90; PULSE 80–95; RESP 20–43; TEMP 98.9–99.8; O2SAT 93–97
[2017-11-09] MEDS: CHLORHEXIDINE 0.12% (ORAL KIT) 15 ML CUP MT SCH ×3 (01:18→20:00)
[2017-11-09] MEDS: CEFEPIME INJ 2,000 MG in SODIUM CHLORIDE 0.9% INJ 100 ML IV SCH ×2 (01:19→11:07)
[2017-11-09] MEDS: LACTULOSE SYRUP 20 GM/30 ML CUP PO SCH ×3 (01:19→16:36)
[2017-11-09] MEDS: VASOPRESSIN INJ 40 UNITS in DEXTROSE 5% IN WATER 100ML INJ 98 ML IV SCH ×4 (04:03→20:43)
[2017-11-09 04:21] LABS: AUTOMATED NEUTROPHIL # 18.3 TH/MM3 (1.8-7.7); BASOPHIL % 0.2 % (0.0-2.0); EOSINOPHIL % 0.1 % (0.0-4.0); HEMATOCRIT 30.1 % (35.0-46.0); HEMOGLOBIN 9.6 GM/DL (11.6-15.3); LYMPH % 6.6 % (9.0-44.0); LYMPHOCYTE # 1.4 TH/MM3 (1.0-4.8); MEAN CELL VOLUME 80.6 FL (80.0-100.0); MEAN CORPUSCULAR HEMOGLOBIN 25.7 PG (27.0-34.0); MEAN CORPUSCULAR HGB CONC 31.8 % (32.0-36.0); MEAN PLATELET VOLUME 8.7 FL (7.0-11.0); MONO % 4.5 % (0.0-8.0); MONOCYTE # 0.9 TH/MM3 (0-0.9); NEUT % 88.6 % (16.0-70.0); PLATELET COUNT 200 TH/MM3 (150-450); RED BLOOD COUNT 3.74 MIL/MM3 (4.00-5.30); RED CELL DISTRIBUTION WIDTH 18.1 % (11.6-17.2); WHITE BLOOD COUNT 20.6 TH/MM3 (4.0-11.0)
[2017-11-09 04:43] LABS: ALKALINE PHOSPHATASE 83 U/L (45-117); ALT (GPT) 58 U/L (10-53); AST (GOT) 22 U/L (15-37); BICARBONATE 24.6 MEQ/L (21.0-32.0); BLOOD UREA NITROGEN 35 MG/DL (7-18); CHLORIDE 115 MEQ/L (98-107); CREATININE 1.46 MG/DL (0.50-1.00); GLOMERULAR FILTRATION RATE 35 ML/MIN (>89); GLUCOSE,RANDOM 282 MG/DL (74-106); SODIUM (NA) 150 MEQ/L (136-145); TOTAL PROTEIN 7.2 GM/DL (6.4-8.2)
[2017-11-09] MEDS: hydrALAZINE HCL 20 MG/ML VIAL IV PUSH PRN (05:18)
[2017-11-09] MEDS: LEVOTHYROXINE SODIUM 50 MCG TAB PO SCH (05:18)
[2017-11-09] MEDS: POTASSIUM CHLOR 20 MEQ PREMIX 100 ML IV PRN ×2 (05:18→07:25)
[2017-11-09] MEDS: METOPROLOL TARTRATE 25 MG TAB PO SCH ×3 (05:18→20:32)
[2017-11-09] MEDS: ACETAMINOPHEN/HYDROcodone 325 MG/5 MG TAB PO PRN ×3 (05:20→20:33)
[2017-11-09 05:56] LABS: BANDS 3 % (0-6); CORRECTED NUCLEATED RBC 1 /100 WBC (0-0); MYELOCYTES 1 % (0-0); NUCLEATED RED BLOOD CELL 1 (0-0); POLYS (SEG NEUTROPHILS) 90 % (16-70)
[2017-11-09 05:57] LABS: LYMPHOCYTES 1 % (9-44); METAMYELOCYTES 5 % (0-1); NEUTROPHIL # MANUAL DIFF 20.4 TH/MM3 (1.8-7.7)
[2017-11-09 05:58] LABS: POLYCHROMASIA 2.2 % (0.0-1.9)
[2017-11-09] MEDS: DEXTROSE 5%-NACL 0.225% INJ 1,000 ML IV SCH (06:18)
[2017-11-09] MEDS: INSULIN ASPART SUPPLEMENTAL SCALE SQ SCH ×4 (08:00→21:00)
[2017-11-09] MEDS: DOCUSATE SODIUM 50 MG/SENNA 8.6 MG TAB PO SCH ×2 (08:00→21:00)
[2017-11-09] MEDS: RIFAXIMIN 550 MG TAB PO SCH ×2 (08:00→20:32)
[2017-11-09] MEDS: VENLAFAXINE HCL XR 75 MG CAP PO SCH (08:00)
[2017-11-09] MEDS: CYANOCOBALAMIN 1000 MCG/ML VIAL SQ SCH (08:01)
[2017-11-09] MEDS: ALBUMIN 25% INJ 50 ML IV SCH ×2 (08:01→20:32)
[2017-11-09] MEDS: FLUoxetine HCL 20 MG CAP PO SCH (08:01)
[2017-11-09] MEDS: AMIODARONE 200 MG TAB PO SCH (08:01)
[2017-11-09] MEDS: SODIUM CHLORIDE 0.9% FLUSH 10 ML FLUSH IV FLUSH SCH ×2 (08:01→21:00)
[2017-11-09] MEDS: LABETALOL HCL 100 MG/20 ML VIAL IV PUSH PRN ×2 (08:03→11:08)
[2017-11-09] MEDS: HEPARIN-D5W 25,000 U/250 ML 250 ML IV PRN (09:44)
--- NOTE | 2017-11-09 10:32 | HHI.FPPN ---
Subjective Remarks Patient seen and examined this morning. No acute events overnight. Patient still with altered mental status. Discussed with at bedside. Patient nonverbal and nonresponsive to stimuli. (Sheldon Dumont MD R2) Objective Vitals Vital Signs Date Time Temp Pulse Resp B/P (MAP) Pulse Ox O2 Delivery O2 Flow Rate FiO2 11/09/17 09:47 93 Nasal Cannula 3.00 11/09/17 06:00 93 11/09/17 04:03 97 189/88 11/09/17 04:00 93 11/09/17 04:00 99.6 93 43 190/90 (123) 94 11/09/17 02:00 83 11/09/17 00:00 99.5 82 22 129/59 (82) 94 11/09/17 00:00 82 11/08/17 22:00 85 11/08/17 20:00 92 11/08/17 20:00 100.2 92 24 214/95 (134) 92 11/08/17 19:00 95 Nasal Cannula 3.00 40 11/08/17 18:30 88 23 197/95 (129) 90 11/08/17 18:00 86 11/08/17 18:00 82 47 189/88 (121) 93 11/08/17 17:30 82 47 182/85 (117) 92 11/08/17 17:00 84 49 179/85 (116) 93 11/08/17 17:00 84 11/08/17 16:30 86 22 207/98 (134) 91 11/08/17 16:00 98.6 86 30 187/115 (139) 89 11/08/17 16:00 86 11/08/17 15:30 83 22 165/79 (107) 95 11/08/17 14:36 82 24 176/81 (112) 98 11/08/17 14:30 79 24 179/83 (115) 98 11/08/17 14:00 87 24 188/93 (124) 98 11/08/17 14:00 87 11/08/17 13:00 79 11/08/17 13:00 79 24 161/79 (106) 98 11/08/17 12:30 80 24 176/84 (114) 96 11/08/17 12:00 80 11/08/17 12:00 99.2 80 25 199/89 (125) 96 11/08/17 11:30 75 37 144/66 (92) 98 11/08/17 11:00 78 45 154/73 (100) 95 I/O 11/08/17 11/08/17 11/08/17 11/09/17 11/09/17 11/09/17 07:00 15:00 23:00 07:00 15:00 23:00 Intake Total 348 ml 150 ml 2250 ml 1308 ml Output Total 1200 ml 2200 ml 4400 ml Balance -852 ml 150 ml 50 ml -3092 ml IV Total 348 ml 150 ml 2250 ml 1308 ml Output Urine Total 1200 ml 1700 ml 2400 ml Stool Total 500 ml 2000 ml # Bowel Movements 4 (Sheldon Dumont MD R2) Result Diagram: 11/09/17 0400 11/09/17 0400 Objective Remarks GENERAL: This is a well-nourished, well-developed patient EYES: No conjunctival injection. Constricted pupils; no asymmetry. Patient did not follow with eyes to assess EOM CARDIOVASCULAR: Normal rate and rhythm. Normal distal LE perfusion bilaterally RESPIRATORY: Normal rate. No focal congestion or wheezing to auscultation GASTROINTESTINAL: Abdomen soft, distended. Normal bowel sounds. MUSCULOSKELETAL: No calf asymmetry or pain to palpation NEUROLOGICAL: Nonverbal and nonresponsive to stimuli (Sheldon Dumont MD R2) A/P Assessment and Plan Patient is a 72-year-old admitted due to septic shock from urinary source; patient also with sclerotic bony lesions concerning for colon cancer metastasis. Due to respiratory decline/multiorgan failure, patient on ventilator since . Critical care, Nephrology, and infectious disease consulted. Patient extubated 11/05; has had altered mental status since extubation Discharge Planning Prognosis unclear at this time Critical Care managing at this time, appreciate care of patient Notably asserts patient is full code (Sheldon Dumont MD R2) Attending Attestation Patient seen and examined. Discussed with Dr. Dumont. Agree with assessment and plan as documented. (Prevatte,Kin Phelps Jr., MD) Problem List: (1) Sepsis ICD Codes: A41.9 - Sepsis, unspecified organism Status: Acute Plan: Impression: Septic shock on admission; labs suggestive of multiorgan dysfunction. Patient with low MAP despite 4 L IVF Patient placed on Phenylephrine. Patient developed respiratory failure and required intubation Labs: Cr: 2.10 (10/31)-> 3.53 (11/04) -> 2.84 (11/05) -> 2.29-> 1.81 (11/07) -> 1.48 (11/08 ) WBC: 15.8 (10/31)-> 2.1 (11/02)-> 20.3 (11/03) -> 17.7 (11/04) -> 22.2 (11/06) -> 25 (11/07) -> 21.9 (11/08) Lactic acid: 3 (10/31) -> 3.3 (11/02) -Critical care consulted -Continue antibiotic therapy -Infectious disease consulted -Cefepime 2gm q8hrs -Nephrology consulted -Continue to monitor CBC, BMP, urine output -Continue to monitor VS; pressors discontinued and intermittent HTN Antibiotic history: s/p Meropenem 2gm q12hrs IV -s/p Zosyn 2.5mg q6hrs (10/31-11/02) -s/p Tobramycin IV x1 11/02 -s/p Rocephin 11/03-11/06 Cultures: 11/05 -Sputum culture negative x48hrs 10/31- blood x2 taylor sensitive E Coli 10/31- urine- taylor sensitive E coli 11/02- blood x2- negative x5 days (2) Altered mental state ICD Codes: R41.82 - Altered mental status, unspecified Status: Acute Plan: Impression: Persistent lack of orientation after extubation 11/05. No focal deficits. History of TIA. On Heparin anticoagulation CT head on admission (ordered due to confusion on admission; suspected secondary to sepsis) w/o acute findings. Remote lacunar infarct in right frontal white matter Repeat head CT 11/06 without acute intracranial abnormality Labs: Leukocytosis. Some hypocalcemia. Normal sodium. Ammonia 76 11/06 -> 39 (11/08) LFT elevations- persistent TBILI mild elevation (~1.4), mild AST and ALT elevations, normal ALKP ABG 11/07- pH 7.34, CO2 37, HCO3 20 -Continue management per Critical care; suspect multifactorial. off of sedation since extubation. Suspect possible hepatic encephalopathy as component -Neurology consulted-appreciate recs -Hyperammonemia -Continue Lactulose TID -rifaximin 550mg BID added -Monitor ammonia -Evaluation for tother etiologies -Due to prior concern for possible metastatic disease and as well as prior TIA and tramautic brain disease, MRI-negative for acute disease -EEG shows encephalopathy -Supportive care; monitor labs -Tube feeds with Jevity due to altered mental status -Checking Cortisol level this morning (3) ASH (acute kidney injury) ICD Codes: N17.9 - Acute kidney failure, unspecified Status: Acute Plan: 11/07: Cr improved (2.84 11/05-> 2.29 11/06-> 1.81 11/07). 3100ml output overnight 11/08: Cr continues to improve; 1.48 today. 2950ml output Impression: renal injury presumed secondary to septic shock/multiorgan dysfunction Cr- 2.12 on admission-> 2.59 (11/02) -> 3.53 (11/04) -> downtending CT abdomen/pelvis- moderate hydronephrosis w/ perinephric stranding similar to . Interval development of mild anasarca. -Continue to monitor urine output w/ jacobsen -Nephrology consulted -Continue IVF (100ml/hr NS, Albumin), antibiotics -Continue to monitor urine output/BMP -Ca replacement -Urology consulted for hydronephrosis -Continue Jacobsen, antibiotics -Do not suspect obstruction; do not recommend stent placement -Recommend renal US next week (4) Elevated LFTs ICD Codes: R79.89 - Other specified abnormal findings of blood chemistry Status: Acute Plan: Impression: Patient with normal LFT's on admission-> mild transaminase elevations: (11/02- TBILI 1.7, AST 122, ALT 62, ALKP 54 -> 11/07- TBILI 1.4, AST 77, ALT 122, ALKP65) Suspect likely related to sepsis/organ injury -Continue to monitor LFT's -Liver US per CC- heterogenous liver suggestive of hepatocellular disease such as cirrhosis. Small ascites; not recently changed since last CT. Sludge in gallbladder; no definite gallstones. Mild splenomegaly. Mild hydronephrosis -Ceftriaxone stopped per ID (5) Respiratory failure, acute ICD Codes: J96.00 - Acute respiratory failure, unspecified whether with hypoxia or hypercapnia Status: Resolved Plan: Impression: Patient intubated 5/12 for tachypnea and respiratory distress ; ABG 11/02 with pH 7.18, CO2 52. 11/03- failed CPAP trials. CXR with persistent hazy opacities at bases 11/04- Remains on ventilator, sedated. 11/05- Extubated 11/06- stable respirations while extubated 11/07- O2 sats >95% on 3 L O2 via NC ABG- pH 7.34, CO2 37, HCO3 20 11/08- Stable O2 sats>95% on 4 L O2; intermittent tachypnea. CXR 11/08 suggestive of pulmonary edema -Continue management per Critical care -Duonebs q6hrs as needed -Stopped Hydrocortisone 100mg IV q8hrs 11/06 (6) UTI (urinary tract infection) ICD Codes: N39.0 - Urinary tract infection, site not specified Plan: Impression: UA with large leukocyte esterase, innumerable WBCs, many WBC clumps Urine culture and blood cultures 10/31 with pansensitive E Coli -Management as above for sepsis (7) Hypertension ICD Codes: I10 - Essential (primary) hypertension Status: Chronic Plan: 11/07- persistent HTN Impression: PMH HTN. Initial hypotension on admission w/ septic shock. Now intermittent hypertension based on agitation/sedation -Continue to monitor; management per CC -Start Metoprolol 25mg q8 hrs -Hydralazine 20mg IV q4hrs PRN -Clonidine 0.2mg PRN -Labetalol 10mg IV q4hrs PRN (8) Atrial fibrillation ICD Codes: I48.91 - Unspecified atrial fibrillation Status: Chronic Plan: Impression: patient placed on amiodarone drip and given digoxin for afib with RVR on admission. Patient currently with normal rate/sinus rhythm. Patient with reported history of moderate mitral stenosis and mild/moderate aortic stenosis Echocardiogram- moderate concentric LVF. EF 70%. Aortic sclerosis present. Moderate /severe pulmonary HTN (60-70mmHg) Initially placed on heparin drip-> PO Amiodarone; currently on hold with sinus rhythm -Continue telemetry/monitoring VS -Continue IV heparin; plan to transition to Xarelto once normal renal function -Continue amiodarone as needed. 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 [id number]. s/p Zeloda 08/2016. Abdomen/Pelvis CT 10/31/17: Innumerable small sclerotic lesions in the skeleton, most characteristic of sclerotic bony metastatic disease -Dr. Candelario consulted -recent bone scan w/o uptake; reassuring regarding sclerotic lesions -plan for PET as outpatient -Continue heparin, treatment for sepsis (10) Weakness ICD Codes: R53.1 - Weakness Status: Acute Plan: -PT consulted; will evaluate once extubated/improving (11) Diabetes mellitus, type II ICD Codes: E11.9 - Type 2 diabetes mellitus Status: Chronic Plan: Will hold home medications -Low dose SSI, per Critical Care protocol -Continue to monitor blood sugar (12) Hypothyroidism ICD Codes: E03.9 - Hypothyroidism Status: Chronic Plan: Continue home Levothyroxine (13) FEN/PPX Plan: Fluid: Fluid per housekeeping lead -50ml/hr NS -Albumin 25% q12 hrs Electrolytes: Continue to monitor; replacement per protocol Nutrition: Tube feeds with Jevity DVT PPX: Per CC, on heparin gtt at this time (Sheldon Dumont MD R2) Problem Qualifiers (1) Sepsis: Qualified Codes: A41.9 - Sepsis, unspecified organism (2) UTI (urinary tract infection): (3) Hypertension: Qualified Codes: I10 - Essential (primary) hypertension (4) Atrial fibrillation: Qualified Codes: I48.2 - Chronic atrial fibrillation Sheldon Dumont MD R2 November 09, 2017 10:32 RichardattKin jenkins Jr., MD November 09, 2017 14:13
--- NOTE | 2017-11-09 10:40 | HHI.CCPN ---
Subjective Remarks/Hospital Course 72-year-old female with a medical history significant for colon cancer, hypertension, hyperlipidemia, atrial fibrillation status post previous ablation , type 2 diabetes mellitus who presented to the ER with generalized weakness and was hypotensive on arrival. She was diagnosed to have a UTI/sepsis. She received 4 L fluids in the ER with systolic blood pressure coming up to the 90s however was tachycardic with heart rate going up to 130s atrial fibrillation. She had a negligible urine output despite 4 L IV fluids and an elevated lactic acid with concern for severe sepsis and acute kidney injury. Patient was admitted by family medicine service and critical care consult was requested by ER physician. I evaluated the patient in the ER. At that time she was on 2 L nasal cannula maintaining O2 sats around 98%. Her systolic blood pressure was in the mid 90 range. She was in atrial fibrillation with heart rate ranging from 110-120s. Patient was awake and alert at the time of my evaluation and was following commands appropriately. She denied any worsening shortness of breath or chest pain at the time. She did have some abdominal discomfort. She appeared slightly tachypneic. She had already received empiric antibiotic coverage. History was obtained by discussion with , ER physician, family medicine residents and review of records. Patient has reportedly not had anything to eat or drink for 30 hours prior to admission. She has been having burning with urination over the past 2 days. Patient had a head CT which was unremarkable, CT abdomen pelvis revealed moderate hydronephrosis, VQ scan was low probability for PE. 11/01: Patient appears critical, tachypneic. Urine output marginal 200 mL overnight shift time. Blood cultures 4 out of 4 bottles positive for gram- negative rods. Currently on 40 mcg/min of Raymond-Synephrine. Remaisn in A fib with RVR. Will start Amiodarone gtt, attempt rate control/cardioverted. Previous echo done last year shows EF 55-60%, moderate mitral stenosis, mild to moderate aortic stenosis, moderate TR, also will hold Xarelto start IV heparin 11/02: Patient remains very critically ill and septic shock now in respiratory failure. Overnight required intubation for tachypnea and respiratory distress. Received a dose of tobramycin Sensitivities are pending for E. coli. White count has dropped to 2.1 creatinine is 2.12 today. Will discontinue Zosyn and start renally dosed meropenem. Remains on amiodarone infusion heart rate slightly better controlled. Raymond-Synephrine just weaned off, but currently patient is hypotensive with maps 61 11/03: Remains very critical. Failed CPAP trials. Off pressors but urine output is decreasing creatinine has increased BUN 59/creatinine 3.36. WBC count elevated to 20.3 with a 22% bands. E. coli is pansensitive DC meropenem and start Rocephin. 11/04: Remains sedated, orally intubated on mechanical ventilation. On Levophed 2 mics per minute for hypotension. Failed CPAP trial yesterday. 11/05: Arousable off sedation. On mechanical ventilation. Daily CPAP trials ongoing. 11/06: Extubated yesterday, weak but breathing comfortably. Hypertensive. WBC 22.2, but clinically improving, possibly steroid induced. Will DC Hydrocortisone 11/07. Patient remains encephalopathy. But moving all extremities appears to be protecting airway. States of few words. But did not open eyes. WBC is 25.6. BUN 49 creatinine 1.81 urine output 1.6 L. Ammonia level was 71 yesterday, lactulose changed to scheduled. Had 2 bowel movements overnight repeat ammonia today. Remains hypotensive, insert NG tube for medication and nutrition. Start scheduled metoprolol 25 every 8 hours 11/08: The patient was noted to be still lethargic. No spontaneous eye opening, not even stating words today. Clonidine discontinued as as needed medication for hypertension. If needed will increase metoprolol every 8 hours. Patient continues on hydralazine and labetalol as needed for hypertension. Patient remains n.p.o.. Pravastatin placed on hold 2/2 elevated LFTs. 11/09: Neurological status unchanged overnight. Neurology has been consulted for continued encephalopathy. The patient continues on lactulose ammonia level 40. Hydrocortisone discontinued, several days ago. Cortisol level pending. Objective Vital Signs Date Time Temp Pulse Resp B/P (MAP) Pulse Ox O2 Delivery O2 Flow Rate FiO2 11/09/17 09:47 93 Nasal Cannula 3.00 11/09/17 06:00 93 11/09/17 04:03 189/88 11/09/17 04:00 99.6 43 11/08/17 19:00 40 Intake and Output 5/19/18 5/19/18 5/20/18 08:00 16:00 00:00 Intake Total 1308 ml Output Total 4400 ml Balance -3092 ml Result Diagram: 11/09/17 0400 11/09/17 0400 Imaging Last Impressions Chest X-Ray 11/08/17 0600 Signed Impressions: Service Date/Time: Wednesday, November 08, 2017 04:16 - CONCLUSION: Stable radiographic appearance most consistent with pulmonary edema. Antonio High Jr., MD Brain MRI 11/08/17 0000 Signed Impressions: Service Date/Time: Wednesday, November 08, 2017 14:49 - CONCLUSION: 1. 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 2. Nothing acute. Jj Alvarez MD Liver Ultrasound 11/07/17 0000 Signed Impressions: Service Date/Time: October 08:05 - CONCLUSION: 1. Heterogeneous liver suggestive of hepatocellular disease such as cirrhosis. There is a small amount of ascites surrounding the liver. This is not significantly changed compared to the recent CT scan of the abdomen. 2. Sludge in the gallbladder. No definite gallstones or biliary tract obstruction. 3. Mild splenomegaly. 4. Mild hydronephrosis of the right collecting system. Markie Crabtree MD Head CT 11/06/17 0000 Signed Impressions: Service Date/Time: Monday, November 06, 2017 10:03 - CONCLUSION: 1. No acute intracranial abnormality or significant interval change. César Coats MD Abdomen X-Ray 11/04/17 0000 Signed Impressions: Service Date/Time: Saturday, November 04, 2017 17:50 - CONCLUSION: Nonspecific intestinal gas pattern Jose Wright MD Abdomen/Pelvis CT 10/31/17 1321 Signed Impressions: Service Date/Time: October 13:58 - CONCLUSION: 1. Development of innumerable small sclerotic lesions in the skeleton most characteristic of sclerotic bony metastatic disease. There is a reported history of malignancy. 2. Hepatomegaly with development of mild ascites. 3. Persistent moderate hydronephrosis with perinephric stranding similar to February 2017. Interval development of mild anasarca. 4. Gallbladder sludge. Gallo catheter in bladder. Samuel Lin MD Lung Scan-VQ Nuclear Medicine 10/31/17 0000 Signed Impressions: Service Date/Time: October 15:00 - CONCLUSION: Low probability scan for pulmonary embolism Jose Wright MD Last 48 hours Impressions Chest X-Ray 11/03/17 0600 Signed Impressions: Service Date/Time: Friday, November 03, 2017 04:01 - CONCLUSION: No significant change. Robe Menchaca MD Last Impressions Head CT 10/31/17 1321 Signed Impressions: Service Date/Time: October 14:02 - CONCLUSION: 1. No acute intracranial findings. Left sphenoid sinusitis. Remote lacunar infarct right frontal white matter. Samuel Lin MD Abdomen/Pelvis CT 10/31/17 1321 Signed Impressions: Service Date/Time: October 13:58 - CONCLUSION: 1. Development of innumerable small sclerotic lesions in the skeleton most characteristic of sclerotic bony metastatic disease. There is a reported history of malignancy. 2. Hepatomegaly with development of mild ascites. 3. Persistent moderate hydronephrosis with perinephric stranding similar to February 2017. Interval development of mild anasarca. 4. Gallbladder sludge. Gallo catheter in bladder. Samuel Lin MD Lung Scan-VQ Nuclear Medicine 10/31/17 0000 Signed Impressions: Service Date/Time: October 15:00 - CONCLUSION: Low probability scan for pulmonary embolism Jose Wright MD Chest X-Ray 10/31/17 0000 Signed Impressions: Service Date/Time: October 12:24 - CONCLUSION: No acute disease. Heart size appears enlarged. Jose Pablo MD Objective Remarks Gen: 72-year-old critically ill female who is lying on bed, lethargic somnolent , no spontaneous eye open HEENT: No pallor or icterus Neck: No JVD Chest/pulmonary: Air entry equal bilaterally, slightly diminished at the bases Cardiovascular: Sinus rhythm now, no gallop or murmur. GI/abdomen: Soft, no tenderness, bowel sounds present. Distended, no rebound Extremities: Warm bilaterally, trace edema Neuro: Somnolent. Moves all 4 extremities no focal deficit. She can state a few words but did not open eyes. Positive gag ,lid reflexes A/P Assessment and Plan 72-year-old female with: ASSESSMENT: Acute metabolic encephalopathy Hyperammonemia Severe sepsis Acute respiratory failure-extubated 11/05/17 Acute kidney failure/ATN Atrial fibrillation with RVR, now NSR E Coli bacteremia/UTI with E. coli Lactic acidosis Elevated liver enzymes Moderate hydronephrosis Chronic atrial fibrillation Moderate mitral stenosis, mild to moderate aortic stenosis, moderate tricuspid regurgitation History of pulmonary embolism Colon cancer with suspected metastatic disease Vitamin B12 deficiency Diabetes Type 2 - on insulin h/o Hypertension Hyperlipidemia Depression Hypothyroidism h/o CVA h/o PE (03/2017) h/o Pyelo/PNA (03/2017 requiring intubation) Pulmonary edema PLAN: Neuro: -Off all sedation -11/08 Discontinue clonidine utilized for hypertension as needed, secondary to possible contribution of lethargic -Continue lactulose, and rifaximin repeat ammonia level -PT/OT speech -11/08 MRI-chronic changes old lacunar infarct no acute abnormality Cardiovascular: -Hypertensive now, use labetalol and hydralazine IV as needed. Clonidine discontinued. -Start scheduled metoprolol 25 p.o. every 8 hours. Increase metoprolol if needed -Discontinued stress dose steroids 11/06 -On IV amiodarone since 11/01. Transitioned to p.o. amiodarone 11/06 -IV digoxin as needed -Holding Xarelto for anticoagulation, Continue IV heparin -Need rate control due to moderate mitral stenosis and mild to moderate aortic stenosis, currently NSR - 11/09 Obtain Cortisol level Pulmonary: -Intubated 11/01/17 for acute respiratory failure, extubated 11/05/17 -Check ABG chest x-ray today due to worsening mental status- -11/08 chest x-ray pulmonary edema-Lasix 40 mg IVP -DuoNeb every 6 hours and as needed -EzPAP, Acapella, IS, as tolerated GI/liver: -Pepcid for GI prophylaxis. NGT p.o. meds and nutrition -Start tube feedings with Jevity after getting US liver rule out cholecystitis Renal/: -Gallo catheter. Strict intake output, monitor and replete electrolytes, follow BUN/creatinine. -Nephrology following. Urine output is adequate. Creatinine improving 1 -Urology consulted in the setting of moderate hydronephrosis with renal failure , did not recommend stent placement ID: - Check C. difficile -ultrasound of the liver-Heterogeneous liver suggestive of hepatocellular disease such as cirrhosis. There is a small amount of ascites surrounding the liver. This is not significantly changed compared to the recent CT scan of the abdomen.Sludge in the gallbladder. No definite gallstones or biliary tract obstruction. Mild splenomegaly. Mild hydronephrosis of the right collecting system. -1 dose of tobramycin given overnight on 11/01 prior to cultures stu available -Blood and urine culture pansensitive E. coli -ID following- Cefepime Heme-onc: -Dr. Candelario following for history of colon cancer in suspected metastatic lesions on CT abdomen pelvis. -Need PET scan when stable Endocrine: -SSI for glycemic control. -Vitamin B12 level is low.vitamin B12 injections 1000 mcg IM daily for 10 days then monthly Prophylaxis: -Pepcid/SCDs. Holding Xarelto, continue IV heparin (IV heparin for Cindy nunez, also for history of pulmonary embolism last year, she is high risk due to underlying malignancy) Access: -Has peripheral IVs and port. Central line if needed Patient's condition is critical worsening encephalopathy is now concerning for ongoing or worsening sepsis. Patient may further decompensate and may require mechanical ventilatory support. Avoidance of sedative type medication clonidine discontinued patient will require rate control will consider increasing metoprolol if needed. Neurology has been consulted regarding encephalopathy. I discussed current clinical status with patient's at bedside including plan of care and he voiced understanding and was agreeable. my billing statement This patient remains critically ill with one or more organ systems which are or may become a threat to life. I have spent in excess of 39 minutes discontinuously in the care and management of this patient. This time is exclusive of procedures, and includes, but is not limited to, evaluation of the patient, review of the medical record, discussions with family, consultants, nursing staff, or respiratory therapy, and documentation in the medical record. Physician Oksana Issa MD November 09, 2017 10:40
[2017-11-09] MEDS: RESP: ALBUTEROL 2.5 MG/IPRATROPIUM 0.5 MG NEB (SCH) NEB ×3 (10:50→20:00)
--- NOTE | 2017-11-09 11:33 | PD.CONS ---
History of Present Illness Service Neurology Consult Requested By Bit Gatherer Reason for Consult TIA history Primary Care Physician Unknown History of Present Illness 72-year-old female admitted for hypotension, sepsis. Patient has a history of previous sepsis, atrial fibrillation, colon cancer. She is currently being followed by oncology, infectious disease, critical care, renal. According to the chart and speak to the nurse at bedside it appears that patient started becoming more confused yesterday. She started on IV cefepime by the ID service yesterday as well. She had MRI brain scan performed which did not show any acute stroke previous lacunar infarcts. She is on anticoagulation. She is Review of Systems COMPLAINS OF: Confusion Rest as above medical chart reviewed due to patient's confusion Past Family Social History Past Medical History Colon cancer: Diagnosed 2015 Diabetes Type 2 - on insulin Hypertension Hyperlipidemia Cardiac = prior heart attack? 2D echo (03/16/17) with LVEF 50-55%, moderate mitral stenosis, [id number] aortic stenosis, pulmonary hypertension Atrial fibrillation Depression Hypothyroidism CVA 2014 PE 03/2017 Pyelo/PNA 03/2017 requiring intubation Past Surgical History C/S x2 hernia operation 1999 "emergency abdominal surgery" when taking fertility drugs 1986 Reported Medications Reported Meds & Active Scripts Active Temazepam 15 Mg Cap 15 Mg PO HS PRN Lasix (Furosemide) 20 Mg Tab 20 Mg PO DAILY Hydroxyzine HCl 25 Mg Tab 25 Mg PO QID PRN Pravachol (Pravastatin) 40 Mg Tab 40 Mg PO DAILY 30 Days Xarelto (Rivaroxaban) 20 Mg Tab 20 Mg PO DAILY Gabapentin 100 Mg Cap 100 Mg PO HS 30 Days Amiodarone (Amiodarone HCl) 200 Mg Tab 200 Mg PO DAILY 30 Days Fluoxetine (Fluoxetine HCl) 20 Mg Capsule 20 Mg PO DAILY 30 Days Adult Aspirin EC Low Strength (Aspirin) 81 Mg Tabec 162 Mg PO DAILY 30 Days Cardizem CD 24 HR (Diltiazem CD 24 HR) 240 Mg Caper 240 Mg PO DAILY 30 Days Levothyroxine (Levothyroxine Sodium) 50 Mcg Tab 50 Mcg PO DAILY 30 Days Wheelchair (Device) 1 Mis Mis Ea .ROUTE DIRECTED Commode 3-in-1 (Device) 1 Mis Mis Ea .ROUTE DIRECTED Walker Rolling/GetGo (Device) 1 Mis Mis Ea .ROUTE DIRECTED Allergies: Coded Allergies: Sulfa (Sulfonamide Antibiotics) (Verified Allergy, Severe, 10/31/17) codeine (Verified Allergy, Severe, Nausea/Vomiting, 10/31/17) Uncoded Allergies: METAL (Allergy, Intermediate, hives, 03/08/16) SURGICAL STEEL (Allergy, Intermediate, hives, 03/08/16) Family History Mom: Breast CA at 48, still living at 87 Dad: emphysema No siblings Son: lymphedema Social History EtOH: very rarely Tob: 10 pack/yr smoker; quit 2009 Illicits: None . 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 Review of Systems All other ROS: Unable to obtain Past Family Social History Allergies: Coded Allergies: Sulfa (Sulfonamide Antibiotics) (Verified Allergy, Severe, 10/31/17) codeine (Verified Allergy, Severe, Nausea/Vomiting, 10/31/17) Uncoded Allergies: METAL (Allergy, Intermediate, hives, 03/08/16) SURGICAL STEEL (Allergy, Intermediate, hives, 03/08/16) Active Ordered Medications Current Medications Medications (Trade) Dose Ordered Sig/Chiqui Route Start Time Stop Time Status Last Admin (Cordarone) 200 mg DAILY PO 11/01/17 09:00 Future hold 11/09/17 08:01 (PROzac) 20 mg DAILY PO 11/01/17 09:00 11/09/17 08:01 (Synthroid) 50 mcg DAILY@0600 PO 11/01/17 06:00 11/09/17 05:18 (Pravachol) 40 mg DAILY PO 11/01/17 09:00 Future Hold 11/08/17 08:36 (Xarelto) 20 mg DAILY PO 11/01/17 09:00 Future Hold (Effexor Xr) 75 mg DAILY PO 11/01/17 09:00 11/09/17 08:00 (NS Flush) 2 ml UNSCH PRN IV FLUSH 10/31/17 15:30 (NS Flush) 2 ml BID IV FLUSH 10/31/17 21:00 11/09/17 08:01 (Tylenol) 650 mg Q4H PRN PO 10/31/17 15:30 11/01/17 19:50 (Narcan Inj) 0.4 mg UNSCH PRN IV PUSH 10/31/17 15:30 (Elsa-Colace) 1 tab BID PO 10/31/17 21:00 11/09/17 08:00 (Milk Of Magnesia Liq) 30 ml Q12H PRN PO 10/31/17 15:30 (Senokot) 17.2 mg Q12H PRN PO 10/31/17 15:30 11/04/17 08:19 (Dulcolax Supp) 10 mg DAILY PRN RECTAL 10/31/17 15:30 (D50w (Vial) Inj) 50 ml UNSCH PRN IV PUSH 10/31/17 15:30 (Glucagon Inj) 1 mg UNSCH PRN OTHER 10/31/17 15:30 (NovoLOG SUPPLEMENTAL SCALE) 1 ACHS SLIDING SCALE SQ 10/31/17 17:00 11/09/17 11:16 (Zofran Odt) 4 mg Q6H PRN PO 10/31/17 15:30 11/07/17 20:48 Acetaminophen 100 ml @ 400 mls/hr Q6H PRN IV 10/31/17 17:15 ([facility] [place] Nursing Information) Patient in critical care unit? Ass... [id number] .XX 10/31/17 23:15 10/31/17 23:15 (Brethine Inj) 1 mg UNSCH PRN SQ 10/31/17 23:30 Heparin Sodium/ Dextrose 250 ml @ 10 mls/hr TITRATE PRN IV 11/01/17 09:00 11/09/17 09:44 Albumin Human 50 ml @ 60 mls/hr Q12H IV 11/01/17 09:00 11/09/17 08:01 (Vitamin B12 Inj) 1,000 mcg DAILY SQ 11/01/17 11:00 11/11/17 10:59 11/09/17 08:01 ([place] 5-325 Mg) 1 tab Q4H PRN PO 11/01/17 13:15 11/09/17 11:08 (Pyridium) 100 mg Q8H PRN PO 11/01/17 13:45 (Restoril) 15 mg HS PRN PO 11/01/17 22:00 11/01/17 22:43 (Peridex 0.12% Liq) 15 ml BID@08,20 MT 11/02/17 08:00 11/09/17 08:00 Vasopressin 40 units/Dextrose 100 ml @ 6 mls/hr [id number] IV 11/02/17 05:23 11/02/17 05:35 (Trandate Inj) 10 mg Q4H PRN IV PUSH 11/05/17 10:45 11/09/17 11:08 (Apresoline Inj) 20 mg Q4H PRN IV PUSH 11/06/17 07:30 11/09/17 05:18 (Lactulose Liq) 30 ml Q8H PO 11/06/17 09:00 11/09/17 08:01 Nicardipine HCl 25 mg/Sodium Chloride 250 ml @ 50 mls/hr TITRATE PRN IV 11/06/17 10:00 Potassium Chloride 100 ml @ 50 mls/hr Q2H PRN IV 11/07/17 07:45 11/08/17 06:17 Potassium Chloride 100 ml @ 50 mls/hr Q2H PRN IV 11/07/17 07:45 11/09/17 07:25 (K-Lyte Cl Eff) 50 meq UNSCH PRN PO 11/07/17 07:45 11/08/17 17:55 Potassium Chloride 100 ml @ 25 mls/hr UNSCH PRN IV 11/07/17 07:45 11/08/17 08:35 Potassium Chloride 100 ml @ 50 mls/hr Q2H PRN IV 11/07/17 07:45 Magnesium Sulfate 4 gm/Sodium Chloride 100 ml @ 50 mls/hr UNSCH PRN IV 11/07/17 07:45 (Mag-Ox) 800 mg UNSCH PRN PO 11/07/17 07:45 Magnesium Sulfate 2 gm/Sodium Chloride 100 ml @ 50 mls/hr UNSCH PRN IV 11/07/17 07:45 (K-Phos) 2,000 mg Q4H PRN PO 11/07/17 07:45 Sodium Phosphate 30 mmol/Sodium Chloride 250 ml @ 42 mls/hr UNSCH PRN IV 11/07/17 07:45 (K-Phos) 2,000 mg UNSCH PRN PO/TUBE 11/07/17 07:45 Potassium Phosphate 30 mmol/ Sodium Chloride 260 ml @ 42 mls/hr UNSCH PRN IV 11/07/17 07:45 (Lopressor) 25 mg Q8HR PO 11/07/17 07:45 11/09/17 11:07 (Xifaxan) 550 mg BID PO 11/07/17 21:00 11/09/17 08:00 Cefepime HCl 2000 mg/Sodium Chloride 100 ml @ 200 mls/hr Q12H IV 11/08/17 13:00 11/09/17 11:07 Dextrose/Sodium Chloride 1,000 ml @ 84 mls/hr [id number] IV 11/08/17 17:00 11/09/17 06:18 (Duoneb Neb) 1 ampule Q6HR NEB NEB 11/09/17 10:30 11/09/17 10:50 Exam I&O / VS Vital Signs Date Time Temp Pulse Resp B/P (MAP) Pulse Ox O2 Delivery O2 Flow Rate FiO2 11/09/17 10:00 91 11/09/17 09:47 93 Nasal Cannula 3.00 11/09/17 08:00 99.2 95 21 163/88 (113) 94 11/09/17 08:00 95 Nasal Cannula 3.00 11/09/17 08:00 95 11/09/17 06:00 93 11/09/17 04:03 97 189/88 11/09/17 04:00 93 11/09/17 04:00 99.6 93 43 190/90 (123) 94 11/09/17 02:00 83 11/09/17 00:00 99.5 82 22 129/59 (82) 94 11/09/17 00:00 82 11/08/17 22:00 85 11/08/17 20:00 92 11/08/17 20:00 100.2 92 24 214/95 (134) 92 11/08/17 19:00 95 Nasal Cannula 3.00 40 11/08/17 18:30 88 23 197/95 (129) 90 11/08/17 18:00 86 11/08/17 18:00 82 47 189/88 (121) 93 11/08/17 17:30 82 47 182/85 (117) 92 11/08/17 17:00 84 49 179/85 (116) 93 11/08/17 17:00 84 11/08/17 16:30 86 22 207/98 (134) 91 11/08/17 16:00 98.6 86 30 187/115 (139) 89 11/08/17 16:00 86 11/08/17 15:30 83 22 165/79 (107) 95 11/08/17 14:36 82 24 176/81 (112) 98 11/08/17 14:30 79 24 179/83 (115) 98 11/08/17 14:00 87 24 188/93 (124) 98 11/08/17 14:00 87 11/08/17 13:00 79 11/08/17 13:00 79 24 161/79 (106) 98 11/08/17 12:30 80 24 176/84 (114) 96 11/08/17 12:00 80 11/08/17 12:00 99.2 80 25 199/89 (125) 96 Cardiology: Regular Rhythm Musculoskeletal: Tenderness, Swelling Exam Comments Patient is in a stuporous state does not follow nonverbal and somnolent partially opens eyes to tactile stimuli. Extraocular movements intact pupils millimeters sluggishly reactive no facial asymmetry. Minimal flexion extension upper or lower limbs with tactile stimuli no clonus plantarflex response elicited. Sensory examination cerebellar testing limited secondary to patient' s mental status Review/Management Diagnosis/Plan: (1) Encephalopathy, metabolic ICD Codes: G93.41 - Metabolic encephalopathy Status: Acute Plan: Likely multifactorial metabolic in etiology secondary to renal failure, systemic inflammatory response syndrome, potentially medication Cefepime could potentially cause seizure and confusion Renal function has been improving, mild hyperammonemia EEG demonstrated moderate encephalopathy with triphasic waveforms; possible she could have some episodes of nonconvulsive seizures Recommendations Consider changing cefepime if possible We will try IV Celebrex discussed with RN and patient's spouse (2) ASH (acute kidney injury) ICD Codes: N17.9 - Acute kidney failure, unspecified Status: Acute Plan: Followed by the renal service (3) Hypertension ICD Codes: I10 - Essential (primary) hypertension Status: Chronic Plan: Per manager intensive care (4) Atrial fibrillation with rapid ventricular response ICD Codes: I48.91 - Atrial fibrillation with rapid ventricular response Status: Chronic Plan: On anticoagulation Problem Qualifiers (1) Hypertension: Qualified Codes: I10 - Essential (primary) hypertension Jose Eduardo Snell MD November 09, 2017 11:33
--- NOTE | 2017-11-09 11:51 | HHI.NPPN ---
Subjective General Problems: Anemia, Edema, Hypotension, Mebatolic Acidosis Renal Failure: Acute History of Present Illness 72-year-old female with past medical history of hypertension, diabetes mellitus, hyperlipidemia, atrial fibrillation, history of colon cancer, history of acute kidney injury in the past. She was admitted with complaint of worsening shortness of breath and recurrent falls. I was called to see the patient because of elevated BUN and creatinine. The patient was seen by me when she was here in February of last year. At that time, she also has acute kidney injury and her creatinine was as high as 1.8, but it was improving and it went down to 0.6-0.7 which is her baseline. Additional Remarks Ongoing encephalopathy Review of Systems General General Remarks Not able to do review of system secondary to mental status. Objective Data Data Vital Signs Date Time Temp Pulse Resp B/P (MAP) Pulse Ox O2 Delivery O2 Flow Rate FiO2 11/09/17 10:00 91 11/09/17 09:47 93 Nasal Cannula 3.00 11/09/17 08:00 99.2 95 21 163/88 (113) 94 11/09/17 08:00 95 Nasal Cannula 3.00 11/09/17 08:00 95 11/09/17 06:00 93 11/09/17 04:03 97 189/88 11/09/17 04:00 93 11/09/17 04:00 99.6 93 43 190/90 (123) 94 11/09/17 02:00 83 11/09/17 00:00 99.5 82 22 129/59 (82) 94 11/09/17 00:00 82 11/08/17 22:00 85 11/08/17 20:00 92 11/08/17 20:00 100.2 92 24 214/95 (134) 92 11/08/17 19:00 95 Nasal Cannula 3.00 40 11/08/17 18:30 88 23 197/95 (129) 90 11/08/17 18:00 86 11/08/17 18:00 82 47 189/88 (121) 93 11/08/17 17:30 82 47 182/85 (117) 92 11/08/17 17:00 84 49 179/85 (116) 93 11/08/17 17:00 84 11/08/17 16:30 86 22 207/98 (134) 91 11/08/17 16:00 98.6 86 30 187/115 (139) 89 11/08/17 16:00 86 11/08/17 15:30 83 22 165/79 (107) 95 11/08/17 14:36 82 24 176/81 (112) 98 11/08/17 14:30 79 24 179/83 (115) 98 11/08/17 14:00 87 24 188/93 (124) 98 11/08/17 14:00 87 11/08/17 13:00 79 11/08/17 13:00 79 24 161/79 (106) 98 11/08/17 12:30 80 24 176/84 (114) 96 11/08/17 12:00 80 11/08/17 12:00 99.2 80 25 199/89 (125) 96 -: 11/09/17 0400 11/09/17 0400 Tubes & Lines: Gallo Physical Exam Eyes Eye Exam: Pupils Equal Throat Throat Exam: Oral Mucosa Grandin & Moist Neck Neck Exam: Neck Supple Pulmonary Resp Exam: Rhonchi, Sputum, Decreased Bases, Diminished Breath Sounds, Poor Inspiratory Effort Cardiology CV Exam: Irregular Gastrointestinal/Abdomen GI Exam: Soft, Non-Tender, Bowel Sounds Present, Distended Extremeties Extremities Exam: Moderate Edema, Pitting Edema, Dependent Edema Assessment/Plan Assessment Summary: ASH/Acute Renal Failure Problem List: (1) Diabetes mellitus, type II ICD Codes: E11.9 - Type 2 diabetes mellitus Status: Chronic (2) PNA (pneumonia) ICD Codes: J18.9 - Pneumonia, unspecified organism Status: Acute (3) Hypothyroidism ICD Codes: E03.9 - Hypothyroidism Status: Chronic (4) Atrial fibrillation ICD Codes: I48.91 - Unspecified atrial fibrillation Status: Chronic (5) Acute kidney failure ICD Codes: N17.9 - Acute kidney failure, unspecified (6) UTI (urinary tract infection) ICD Codes: N39.0 - Urinary tract infection, site not specified (7) Sepsis due to Gram-negative organism with septic shock ICD Codes: A41.50 - Gram-negative sepsis, unspecified; R65.21 - Severe sepsis with septic shock Status: Resolved Plan Patient has chronic kidney disease and develop ASH. Creatinine improving : 1.48 -> 1.46 Urinary output at 4.1L/24 hours Has elevated liver enzymes Scheduled lactulose Ongoing hypokalemia - on replacement protocol. Hypernatremia with Na 150 today, with possible free water diuresis. On D5 1/4 saline at 84cc/hour. Will change to d5W @100cc/hour. BP is stable. Continue antibiotics. Avoid Nephrotoxins, and follow the BMP. Labs in AM Problem Qualifiers (1) Atrial fibrillation: Qualified Codes: I48.2 - Chronic atrial fibrillation (2) UTI (urinary tract infection): Quincy Burns MD November 09, 2017 11:51
[2017-11-09] MEDS ORDERED: DEXTROSE 5% IN WATE 1000ML INJ 1,000 ML IV SCH (12:00)
[2017-11-09 12:26] LABS: BICARBONATE 23.8 MEQ/L (21.0-32.0); CALCIUM 8.3 MG/DL (8.5-10.1); CREATININE 1.48 MG/DL (0.50-1.00)
[2017-11-09 13:12] LABS: ALPHA-1-ANTITRYPSIN 225 mg/dL (100 - 190)
[2017-11-09] MEDS: SODIUM CHLOR 0.45% 1000 ML INJ 1,000 ML IV SCH (13:52)
[2017-11-09] MEDS ORDERED: FOSPHENYTOIN INJ 1,000 MGPE in SODIUM CHLORIDE 0.9% INJ 50 ML IV ONE (14:00)
[2017-11-09] MEDS: ACETAMINOPHEN 1000 MG/100 ML 100 ML IV PRN (14:08)
[2017-11-09 14:55] LABS: SMOOTH MUSCLE TOTAL AUTOABS Negative (Negative)
--- NOTE | 2017-11-09 17:11 | HHI.GIFU ---
Subjective Remarks Pt nonverbal, does not open eyes during my exam at bedside, states she did move a little bit earlier (Gudelia Jalloh) Objective Vitals I&O Vital Signs Date Time Temp Pulse Resp B/P (MAP) Pulse Ox O2 Delivery O2 Flow Rate FiO2 11/09/17 16:00 99.4 80 20 121/58 (79) 96 11/09/17 16:00 80 11/09/17 14:00 81 11/09/17 12:00 98.9 80 20 154/76 (102) 94 11/09/17 12:00 80 11/09/17 10:00 91 11/09/17 09:47 93 Nasal Cannula 3.00 11/09/17 08:00 99.2 95 21 163/88 (113) 94 11/09/17 08:00 95 Nasal Cannula 3.00 11/09/17 08:00 95 11/09/17 06:00 93 11/09/17 04:03 97 189/88 11/09/17 04:00 93 11/09/17 04:00 99.6 93 43 190/90 (123) 94 11/09/17 02:00 83 11/09/17 00:00 99.5 82 22 129/59 (82) 94 11/09/17 00:00 82 11/08/17 22:00 85 11/08/17 20:00 92 11/08/17 20:00 100.2 92 24 214/95 (134) 92 11/08/17 19:00 95 Nasal Cannula 3.00 40 11/08/17 18:30 88 23 197/95 (129) 90 11/08/17 18:00 86 11/08/17 18:00 82 47 189/88 (121) 93 11/08/17 17:30 82 47 182/85 (117) 92 I/O 11/08/17 11/08/17 11/08/17 11/09/17 11/09/17 11/09/17 07:00 15:00 23:00 07:00 15:00 23:00 Intake Total 348 ml 150 ml 2250 ml 1308 ml 500 ml 170 ml Output Total 1200 ml 2200 ml 4400 ml 1800 ml Balance -852 ml 150 ml 50 ml -3092 ml -1300 ml 170 ml IV Total 348 ml 150 ml 2250 ml 1308 ml 500 ml 170 ml Output Urine Total 1200 ml 1700 ml 2400 ml 800 ml Stool Total 500 ml 2000 ml 1000 ml # Bowel Movements 4 Laboratory Laboratory Tests Test 11/09/17 04:00 11/09/17 09:57 11/09/17 11:16 White Blood Count 20.6 Red Blood Count 3.74 Hemoglobin 9.6 Hematocrit 30.1 Mean Corpuscular Volume 80.6 Mean Corpuscular Hemoglobin 25.7 Mean Corpuscular Hemoglobin Concent 31.8 Red Cell Distribution Width 18.1 Platelet Count 200 Mean Platelet Volume 8.7 Neutrophils (%) (Auto) 88.6 Lymphocytes (%) (Auto) 6.6 Monocytes (%) (Auto) 4.5 Eosinophils (%) (Auto) 0.1 Basophils (%) (Auto) 0.2 Neutrophils # (Auto) 18.3 Lymphocytes # (Auto) 1.4 Monocytes # (Auto) 0.9 Eosinophils # (Auto) 0.0 Basophils # (Auto) 0.0 CBC Comment AUTO DIFF Differential Total Cells Counted 100 Neutrophils % (Manual) 90 Band Neutrophils % 3 Lymphocytes % 1 Neutrophils # (Manual) 20.4 Metamyelocytes 5 Myelocytes 1 Nucleated Red Blood Cells 1 Differential Comment FINAL DIFF MANUAL Platelet Estimate NORMAL Platelet Morphology Comment NORMAL Polychromasia 2.2 Basophilic Stippling FAINT Activated Partial Thromboplast Time 75.6 49.4 Blood Urea Nitrogen 35 33 Creatinine 1.46 1.48 Random Glucose 282 316 Total Protein 7.2 Albumin 3.0 Calcium Level 8.0 8.3 Alkaline Phosphatase 83 Aspartate Amino Transf (AST/SGOT) 22 Alanine Aminotransferase (ALT/SGPT) 58 Total Bilirubin 1.0 Sodium Level 150 148 Potassium Level 3.3 3.6 Chloride Level 115 114 Carbon Dioxide Level 24.6 23.8 Anion Gap 10 10 Estimat Glomerular Filtration Rate 35 35 Ammonia 40 Random Cortisol 41.6 Date/Time Source Procedure Growth Status 11/02/17 04:23 Blood Peripheral Aerobic Blood Culture - Final NO GROWTH IN 5 DAYS Complete 11/02/17 04:23 Blood Peripheral Anaerobic Blood Culture - Final NO GROWTH IN 5 DAYS Complete 11/01/17 20:00 Stool Stool Stool Occult Blood (NANI) - Final HEMOCCULT NEGATIVE Complete 11/05/17 10:58 Sputum Endotracheal Gram Stain - Final Complete 11/05/17 10:58 Sputum Endotracheal Sputum Culture - Final NO GROWTH IN 48 HOURS. Complete 10/31/17 13:30 Urine Clean Catch Urine Culture - Final Escherichia Coli Complete Imaging Last Impressions Chest X-Ray 11/08/17 0600 Signed Impressions: Service Date/Time: Wednesday, November 08, 2017 04:16 - CONCLUSION: Stable radiographic appearance most consistent with pulmonary edema. Antonio High Jr., MD Brain MRI 11/08/17 0000 Signed Impressions: Service Date/Time: Wednesday, November 08, 2017 14:49 - CONCLUSION: 1. 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 2. Nothing acute. Jj Alvarez MD Liver Ultrasound 11/07/17 0000 Signed Impressions: Service Date/Time: October 08:05 - CONCLUSION: 1. Heterogeneous liver suggestive of hepatocellular disease such as cirrhosis. There is a small amount of ascites surrounding the liver. This is not significantly changed compared to the recent CT scan of the abdomen. 2. Sludge in the gallbladder. No definite gallstones or biliary tract obstruction. 3. Mild splenomegaly. 4. Mild hydronephrosis of the right collecting system. Markie Crabtree MD Head CT 11/06/17 0000 Signed Impressions: Service Date/Time: Monday, November 06, 2017 10:03 - CONCLUSION: 1. No acute intracranial abnormality or significant interval change. César Coats MD Abdomen X-Ray 11/04/17 0000 Signed Impressions: Service Date/Time: Saturday, November 04, 2017 17:50 - CONCLUSION: Nonspecific intestinal gas pattern Jose Wright MD Abdomen/Pelvis CT 10/31/17 1321 Signed Impressions: Service Date/Time: October 13:58 - CONCLUSION: 1. Development of innumerable small sclerotic lesions in the skeleton most characteristic of sclerotic bony metastatic disease. There is a reported history of malignancy. 2. Hepatomegaly with development of mild ascites. 3. Persistent moderate hydronephrosis with perinephric stranding similar to February 2017. Interval development of mild anasarca. 4. Gallbladder sludge. Gallo catheter in bladder. Samuel Lin MD Lung Scan-V Nuclear Medicine 10/31/17 0000 Signed Impressions: Service Date/Time: October 15:00 - CONCLUSION: Low probability scan for pulmonary embolism Jose Wright MD Physical Exam HEENT: Normocephalic; atraumatic CARDIAC: Irregularly irregular, rate controlled ABDOMEN: Distended, semi-firm, bowel sounds active EXTREMITIES: No clubbing, cyanosis, or edema. SKIN: Normal; no rash; no jaundice. (Gudelia Jalloh) Assessment and Plan Plan Assessment: - Elevated LFTs- WNL on admission, elevated on 11/03 Of note, pt was hypotensive and requiring pressors on 11/03 Pt denies history of liver issues or ETOH Current LFTs: (11/08) AST-38 ALT-75 Alk phos-80 T bili-1.1 Liver Work up: Iron-31 TIBC-227 %sat-13.7 Ferritin-184 Hepatitis panel negative. AFP-1.4 JELANI positive [id number] Ceruloplasmin, AMA, ASMA pending Pt with history of hyperlipidemia- Pravastatin noted on home meds US liver (11/07) --> Heterogeneous liver suggestive of hepatocellular disease such as cirrhosis. There is a small amount of ascites surrounding the liver. This is not significant changed compared to the recent CT scan of the abdomen. Sludge in the gallbladder. No definite gallstones or biliary tract obstruction. Mild splenomegaly. - Hyperammonemia - ammonia 76 on November 06 currently 39 Pt on Xifaxan and Lactulose - A-fib with RVR on admission, rate now controlled- Pt on Heparin gtt. - Leukocytosis- ID following- took pt off of Rocephin due to gallbladder sludge- Pt on Cefepime - Anemia- microcytic, hypochromic- Hemoccult stool negative - History of colon cancer- S/P chemo and partial colon resection in 206, per has not had repeat colonoscopy since then (11/09) No significant changes over night. Pt remains unresponsive, per she did move her arm earlier. PLAN - AMA, ASMA pending - Ceruloplasmin pending - Avoid hepatotoxins - Xifaxan - Lactulose - Monitor labs - Further recommendations based on clinical course and results of above Pt has been seen and examined by myself and Dr. Skinner and this note is written on her behalf (Gudeila Jalloh) Physician Comments seen, examined agree with above lfts improving, us noted not much to add from gi point gi will sign off call us as needed if discharged fu office (Kristen Skinner MD) Gudelia Jalloh November 09, 2017 17:11 Kristen Skinner MD November 09, 2017 18:12
[2017-11-10] VITALS (14 sets, daily range): BP systolic 140–186; BP diastolic 69–97; PULSE 76–91; RESP 15–24; TEMP 98.9–100; O2SAT 95–100
[2017-11-10] MEDS: SODIUM CHLOR 0.45% 1000 ML INJ 1,000 ML IV SCH ×2 (00:33→09:30)
[2017-11-10] MEDS: LACTULOSE SYRUP 20 GM/30 ML CUP PO SCH ×4 (00:41→20:43)
[2017-11-10] MEDS: CEFEPIME INJ 2,000 MG in SODIUM CHLORIDE 0.9% INJ 100 ML IV SCH (00:41)
[2017-11-10] MEDS: FOSPHENYTOIN SODIUM 100 MG PE/2 ML VIAL IV SCH ×2 (00:42→12:17)
[2017-11-10] MEDS: HEPARIN-D5W 25,000 U/250 ML 250 ML IV PRN ×2 (03:18→21:10)
[2017-11-10] MEDS: RESP: ALBUTEROL 2.5 MG/IPRATROPIUM 0.5 MG NEB (SCH) NEB ×4 (03:36→19:30)
[2017-11-10] MEDS: METOPROLOL TARTRATE 25 MG TAB PO SCH ×3 (04:32→20:42)
[2017-11-10] MEDS: LEVOTHYROXINE SODIUM 50 MCG TAB PO SCH (04:33)
[2017-11-10] MEDS: ACETAMINOPHEN/HYDROcodone 325 MG/5 MG TAB PO PRN ×3 (04:33→17:47)
[2017-11-10 05:10] LABS: ALBUMIN 2.9 GM/DL (3.4-5.0); ALKALINE PHOSPHATASE 103 U/L (45-117); ALT (GPT) 43 U/L (10-53); AST (GOT) 23 U/L (15-37); BLOOD UREA NITROGEN 27 MG/DL (7-18); CALCIUM 7.7 MG/DL (8.5-10.1); CHLORIDE 114 MEQ/L (98-107); CREATININE 1.34 MG/DL (0.50-1.00); GLOMERULAR FILTRATION RATE 39 ML/MIN (>89); GLUCOSE,RANDOM 341 MG/DL (74-106); MAGNESIUM 1.6 MG/DL (1.5-2.5); PHENYTOIN (DILANTIN) 9.7 MCG/ML (10.0-20.0); PHOSPHORUS 2.6 MG/DL (2.5-4.9); SODIUM (NA) 148 MEQ/L (136-145); TOTAL BILIRUBIN ADULT 0.9 MG/DL (0.2-1.0); TOTAL PROTEIN 7.1 GM/DL (6.4-8.2)
[2017-11-10] MEDS: POTASSIUM CHLOR 40 MEQ PREMIX 100 ML IV PRN ×2 (05:41→07:47)
[2017-11-10 06:37] LABS: AUTOMATED NEUTROPHIL # 16.9 TH/MM3 (1.8-7.7); BASOPHIL % 0.1 % (0.0-2.0); EOSINOPHIL # 0.1 TH/MM3 (0-0.4); EOSINOPHIL % 0.4 % (0.0-4.0); HEMATOCRIT 29.6 % (35.0-46.0); HEMOGLOBIN 9.4 GM/DL (11.6-15.3); LYMPH % 6.3 % (9.0-44.0); LYMPHOCYTE # 1.2 TH/MM3 (1.0-4.8); MEAN CELL VOLUME 82.8 FL (80.0-100.0); MEAN CORPUSCULAR HEMOGLOBIN 26.4 PG (27.0-34.0); MEAN CORPUSCULAR HGB CONC 31.8 % (32.0-36.0); MEAN PLATELET VOLUME 9.2 FL (7.0-11.0); MONO % 4.2 % (0.0-8.0); MONOCYTE # 0.8 TH/MM3 (0-0.9); PLATELET COUNT 166 TH/MM3 (150-450); RED BLOOD COUNT 3.58 MIL/MM3 (4.00-5.30); RED CELL DISTRIBUTION WIDTH 18.5 % (11.6-17.2)
[2017-11-10] MEDS: ALBUMIN 25% INJ 50 ML IV SCH ×2 (07:47→20:41)
[2017-11-10] MEDS: VENLAFAXINE HCL XR 75 MG CAP PO SCH (07:48)
[2017-11-10] MEDS: AMIODARONE 200 MG TAB PO SCH (07:48)
[2017-11-10] MEDS: DOCUSATE SODIUM 50 MG/SENNA 8.6 MG TAB PO SCH ×2 (07:48→20:42)
[2017-11-10] MEDS: RIFAXIMIN 550 MG TAB PO SCH ×2 (07:48→20:42)
[2017-11-10] MEDS: CYANOCOBALAMIN 1000 MCG/ML VIAL SQ SCH (07:48)
[2017-11-10] MEDS: FLUoxetine HCL 20 MG CAP PO SCH (07:49)
[2017-11-10] MEDS: SODIUM CHLORIDE 0.9% FLUSH 10 ML FLUSH IV FLUSH SCH ×2 (07:49→20:42)
[2017-11-10] MEDS: CHLORHEXIDINE 0.12% (ORAL KIT) 15 ML CUP MT SCH ×2 (07:49→20:00)
[2017-11-10] MEDS: INSULIN ASPART SUPPLEMENTAL SCALE SQ SCH ×3 (07:51→17:00)
[2017-11-10] MEDS ORDERED: LEVOFLOXACIN 500 MG PREMIX INJ 100 ML IV SCH (09:00)
[2017-11-10 09:08] LABS: BANDS 2 % (0-6); LYMPHOCYTES 4 % (9-44); METAMYELOCYTES 2 % (0-1); MONOCYTES 4 % (0-8); MYELOCYTES 4 % (0-0); NEUTROPHIL # MANUAL DIFF 17.3 TH/MM3 (1.8-7.7); POLYS (SEG NEUTROPHILS) 82 % (16-70); PROMYELOCYTES 1 % (0-0)
[2017-11-10 09:09] LABS: POLYCHROMASIA 2.4 % (0.0-1.9)
[2017-11-10] MEDS: LABETALOL HCL 100 MG/20 ML VIAL IV PUSH PRN ×2 (10:03→17:47)
--- NOTE | 2017-11-10 10:10 | HHI.FPPN ---
Subjective Remarks Patient examined this morning. No acute events overnight. Patient still nonverbal with minimal spots to stimuli. Discussed with nurse, who stated patient did show some improvement with responding to pain with some movements. Objective Vitals Vital Signs Date Time Temp Pulse Resp B/P (MAP) Pulse Ox O2 Delivery O2 Flow Rate FiO2 11/10/17 09:32 97 Nasal Cannula 2.00 11/10/17 06:00 80 11/10/17 04:00 99.2 85 24 183/97 (125) 100 11/10/17 04:00 91 11/10/17 02:00 89 11/10/17 00:00 99.2 81 19 162/75 (104) 11/10/17 00:00 81 11/09/17 22:00 83 11/09/17 20:43 80 144/82 11/09/17 20:00 94 Nasal Cannula 3.00 11/09/17 20:00 99.8 82 20 156/73 (100) 97 11/09/17 20:00 82 11/09/17 19:00 95 Nasal Cannula 3.00 40 11/09/17 18:00 84 11/09/17 16:00 99.4 80 20 121/58 (79) 96 11/09/17 16:00 80 11/09/17 14:00 81 11/09/17 12:00 98.9 80 20 154/76 (102) 94 11/09/17 12:00 80 I/O 11/09/17 11/09/17 11/09/17 11/10/17 11/10/17 11/10/17 07:00 15:00 23:00 07:00 15:00 23:00 Intake Total 1308 ml 500 ml 809 ml 450 ml Output Total 4400 ml 1800 ml 600 ml 2050 ml Balance -3092 ml -1300 ml 209 ml -1600 ml Intake Oral 0 ml IV Total 1308 ml 500 ml 690 ml Tube Feeding 119 ml 450 ml Output Urine Total 2400 ml 800 ml 500 ml 1600 ml Stool Total 2000 ml 1000 ml 100 ml 450 ml Result Diagram: 11/10/17 0415 11/10/17 0415 Objective Remarks GENERAL: This is a well-nourished, well-developed patient CARDIOVASCULAR: Normal rate and rhythm. Normal distal LE perfusion bilaterally RESPIRATORY: Normal rate. No focal congestion or wheezing to auscultation GASTROINTESTINAL: Abdomen soft, distended. Normal bowel sounds. MUSCULOSKELETAL: No calf asymmetry or pain to palpation NEUROLOGICAL: Nonverbal and minimally to stimuli A/P Assessment and Plan Patient is a 72-year-old admitted due to septic shock from urinary source; patient also with sclerotic bony lesions concerning for colon cancer metastasis. Due to respiratory decline/multiorgan failure, patient on ventilator since . Critical care, Nephrology, and infectious disease consulted. Patient extubated 11/05; has had altered mental status since extubation Discharge Planning Prognosis unclear at this time Critical Care managing at this time, appreciate care of patient Notably asserts patient is full code Problem List: (1) Altered mental state ICD Codes: R41.82 - Altered mental status, unspecified Status: Acute Plan: Impression: Persistent lack of orientation after extubation 11/05. No focal deficits. History of TIA. On Heparin anticoagulation CT head on admission (ordered due to confusion on admission; suspected secondary to sepsis) w/o acute findings. Remote lacunar infarct in right frontal white matter Repeat head CT 11/06 without acute intracranial abnormality Labs: Leukocytosis. Some hypocalcemia. Normal sodium. Ammonia 76 11/06 -> 39 (11/08) -> 33 11/09 LFT elevations- persistent TBILI mild elevation (~1.4), mild AST and ALT elevations, normal ALKP ABG 11/07- pH 7.34, CO2 37, HCO3 20 -Continue management per Critical care; suspect multifactorial. off of sedation since extubation. Suspect possible hepatic encephalopathy as component -Neurology consulted-appreciate recs -Likely metabolic encephalopathy -Changing Cefepime to Levaquin due to possible cause of seizures and confusion -Starting IV Celebrex -Hyperammonemia -Continue Lactulose TID -rifaximin 550mg BID added -Monitor ammonia -Evaluation for tother etiologies -Due to prior concern for possible metastatic disease and as well as prior TIA and tramautic brain disease, MRI-negative for acute disease -EEG shows encephalopathy -Supportive care; monitor labs -Tube feeds with Jevity due to altered mental status (2) Sepsis ICD Codes: A41.9 - Sepsis, unspecified organism Status: Acute Plan: Impression: Septic shock on admission; labs suggestive of multiorgan dysfunction. Patient with low MAP despite 4 L IVF Patient placed on Phenylephrine. Patient developed respiratory failure and required intubation Labs: Cr: 2.10 (10/31)-> 3.53 (11/04) -> 2.84 (11/05) -> 2.29-> 1.81 (11/07) -> 1.48 (11/08 ) WBC: 15.8 (10/31)-> 2.1 (11/02)-> 20.3 (11/03) -> 17.7 (11/04) -> 22.2 (11/06) -> 25 (11/07) -> 21.9 (11/08) Lactic acid: 3 (10/31) -> 3.3 (11/02) -Critical care consulted -Continue antibiotic therapy -Infectious disease consulted -Changed from Cefepime to Levaquin 11/10 -Nephrology consulted -Continue to monitor CBC, BMP, urine output -Continue to monitor VS; pressors discontinued and intermittent HTN Antibiotic history: s/p Meropenem 2gm q12hrs IV -s/p Zosyn 2.5mg q6hrs (10/31-11/02) -s/p Tobramycin IV x1 11/02 -s/p Rocephin 11/03-11/06 Cultures: 11/05 -Sputum culture negative x48hrs 10/31- blood x2 taylor sensitive E Coli 10/31- urine- taylor sensitive E coli 11/02- blood x2- negative x5 days (3) ASH (acute kidney injury) ICD Codes: N17.9 - Acute kidney failure, unspecified Status: Acute Plan: 11/07: Cr improved (2.84 11/05-> 2.29 11/06-> 1.81 11/07). 3100ml output overnight 11/08: Cr continues to improve; 1.48 today. 2950ml output 520: Cr 1.34, improving. Impression: renal injury presumed secondary to septic shock/multiorgan dysfunction Cr- 2.12 on admission-> 2.59 (11/02) -> 3.53 (11/04) -> downtending CT abdomen/pelvis- moderate hydronephrosis w/ perinephric stranding similar to . Interval development of mild anasarca. -Continue to monitor urine output w/ jacobsen -Nephrology consulted -Continue IVF (D5@ 100mls/hr), antibiotics -Continue to monitor urine output/BMP -Ca replacement -Urology consulted for hydronephrosis -Continue Jacobsen, antibiotics -Do not suspect obstruction; do not recommend stent placement -Recommend renal US next week (4) Elevated LFTs ICD Codes: R79.89 - Other specified abnormal findings of blood chemistry Status: Acute Plan: Impression: Patient with normal LFT's on admission-> mild transaminase elevations: (11/02- TBILI 1.7, AST 122, ALT 62, ALKP 54 -> 11/07- TBILI 1.4, AST 77, ALT 122, ALKP65) Suspect likely related to sepsis/organ injury -Continue to monitor LFT's -Liver US per CC- heterogenous liver suggestive of hepatocellular disease such as cirrhosis. Small ascites; not recently changed since last CT. Sludge in gallbladder; no definite gallstones. Mild splenomegaly. Mild hydronephrosis -Ceftriaxone stopped per ID (5) Respiratory failure, acute ICD Codes: J96.00 - Acute respiratory failure, unspecified whether with hypoxia or hypercapnia Status: Resolved Plan: Impression: Patient intubated 11/02 for tachypnea and respiratory distress ; ABG 11/02 with pH 7.18, CO2 52. 11/03- failed CPAP trials. CXR with persistent hazy opacities at bases 11/04- Remains on ventilator, sedated. 11/05- Extubated 11/06- stable respirations while extubated 11/07- O2 sats >95% on 3 L O2 via NC ABG- pH 7.34, CO2 37, HCO3 20 11/08- Stable O2 sats>95% on 4 L O2; intermittent tachypnea. CXR 11/08 suggestive of pulmonary edema -Continue management per Critical care -Duonebs q6hrs as needed -Stopped Hydrocortisone 100mg IV q8hrs 11/06 (6) UTI (urinary tract infection) ICD Codes: N39.0 - Urinary tract infection, site not specified Plan: Impression: UA with large leukocyte esterase, innumerable WBCs, many WBC clumps Urine culture and blood cultures 10/31 with pansensitive E Coli -Management as above for sepsis (7) Hypertension ICD Codes: I10 - Essential (primary) hypertension Status: Chronic Plan: 11/07- persistent HTN Impression: PMH HTN. Initial hypotension on admission w/ septic shock. Now intermittent hypertension based on agitation/sedation -Continue to monitor; management per CC -Start Metoprolol 25mg q8 hrs -Hydralazine 20mg IV q4hrs PRN -Clonidine 0.2mg PRN -Labetalol 10mg IV q4hrs PRN (8) Atrial fibrillation ICD Codes: I48.91 - Unspecified atrial fibrillation Status: Chronic Plan: Impression: patient placed on amiodarone drip and given digoxin for afib with RVR on admission. Patient currently with normal rate/sinus rhythm. Patient with reported history of moderate mitral stenosis and mild/moderate aortic stenosis Echocardiogram- moderate concentric LVF. EF 70%. Aortic sclerosis present. Moderate /severe pulmonary HTN (60-70mmHg) Initially placed on heparin drip-> PO Amiodarone; currently on hold with sinus rhythm -Continue telemetry/monitoring VS -Continue IV heparin; plan to transition to Xarelto once normal renal function -Continue amiodarone as needed. 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 [id number]. s/p Zeloda 08/2016. Abdomen/Pelvis CT 10/31/17: Innumerable small sclerotic lesions in the skeleton, most characteristic of sclerotic bony metastatic disease -Dr. Candelario consulted -recent bone scan w/o uptake; reassuring regarding sclerotic lesions -plan for PET as outpatient -Continue heparin, treatment for sepsis (10) Weakness ICD Codes: R53.1 - Weakness Status: Acute Plan: -PT consulted; will evaluate once extubated/improving (11) Diabetes mellitus, type II ICD Codes: E11.9 - Type 2 diabetes mellitus Status: Chronic Plan: Will hold home medications -Low dose SSI, per Critical Care protocol -Continue to monitor blood sugar (12) Hypothyroidism ICD Codes: E03.9 - Hypothyroidism Status: Chronic Plan: Continue home Levothyroxine (13) FEN/PPX Plan: Fluid: Fluid 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
--- NOTE | 2017-11-10 10:19 | HHI.PR ---
Review/Management Diagnosis/Plan: (1) Encephalopathy, metabolic ICD Codes: G93.41 - Metabolic encephalopathy Status: Acute Plan: Likely multifactorial metabolic in etiology secondary to renal failure, systemic inflammatory response syndrome, potentially medication Cefepime could potentially cause seizure and confusion Renal function has been improving, mild hyperammonemia EEG demonstrated moderate encephalopathy with triphasic waveforms; possible she could have some episodes of nonconvulsive seizures Continue IV Celebrex Recommendations Antibiotic change discussed with ID Repeat MRI brain scan with left-sided weakness Follow exam Discussed patient's spouse (2) ASH (acute kidney injury) ICD Codes: N17.9 - Acute kidney failure, unspecified Status: Acute Plan: Followed by the renal service (3) Hypertension ICD Codes: I10 - Essential (primary) hypertension Status: Chronic Plan: 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 air intercept controller (4) Atrial fibrillation with rapid ventricular response ICD Codes: I48.91 - Atrial fibrillation with rapid ventricular response Status: Chronic Plan: On anticoagulation Subjective Subjective Comments acute no acute events reported Active Medications Current Medications Medications (Trade) Dose Ordered Sig/Chiqui Route Start Time Stop Time Status Last Admin (Cordarone) 200 mg DAILY PO 11/01/17 09:00 Future hold 11/10/17 07:48 (PROzac) 20 mg DAILY PO 11/01/17 09:00 11/10/17 07:49 (Synthroid) 50 mcg DAILY@0600 PO 11/01/17 06:00 11/10/17 04:33 (Pravachol) 40 mg DAILY PO 11/01/17 09:00 Future Hold 11/08/17 08:36 (Xarelto) 20 mg DAILY PO 11/01/17 09:00 Future Hold (Effexor Xr) 75 mg DAILY PO 11/01/17 09:00 11/10/17 07:48 (NS Flush) 2 ml UNSCH PRN IV FLUSH 10/31/17 15:30 (NS Flush) 2 ml BID IV FLUSH 10/31/17 21:00 11/10/17 07:49 (Tylenol) 650 mg Q4H PRN PO 10/31/17 15:30 11/01/17 19:50 (Narcan Inj) 0.4 mg UNSCH PRN IV PUSH 10/31/17 15:30 (Elsa-Colace) 1 tab BID PO 10/31/17 21:00 11/10/17 07:48 (Milk Of Magnesia Liq) 30 ml Q12H PRN PO 10/31/17 15:30 (Senokot) 17.2 mg Q12H PRN PO 10/31/17 15:30 11/04/17 08:19 (Dulcolax Supp) 10 mg DAILY PRN RECTAL 10/31/17 15:30 (D50w (Vial) Inj) 50 ml UNSCH PRN IV PUSH 10/31/17 15:30 (Glucagon Inj) 1 mg UNSCH PRN OTHER 10/31/17 15:30 (NovoLOG SUPPLEMENTAL SCALE) 1 ACHS SLIDING SCALE SQ 10/31/17 17:00 11/10/17 07:51 (Zofran Odt) 4 mg Q6H PRN PO 10/31/17 15:30 11/07/17 20:48 Acetaminophen 100 ml @ 400 mls/hr Q6H PRN IV 10/31/17 17:15 11/09/17 14:08 ([facility] Information) Patient in critical care unit? Ass... [id number] .XX 10/31/17 23:15 10/31/17 23:15 (Brethine Inj) 1 mg UNSCH PRN SQ 10/31/17 23:30 Heparin Sodium/ Dextrose 250 ml @ 10 mls/hr TITRATE PRN IV 11/01/17 09:00 11/10/17 03:18 Albumin Human 50 ml @ 60 mls/hr Q12H IV 11/01/17 09:00 11/10/17 07:47 (Vitamin B12 Inj) 1,000 mcg DAILY SQ 11/01/17 11:00 11/11/17 10:59 11/10/17 07:48 ([place] 5-325 Mg) 1 tab Q4H PRN PO 11/01/17 13:15 11/10/17 07:48 (Pyridium) 100 mg Q8H PRN PO 11/01/17 13:45 (Restoril) 15 mg HS PRN PO 11/01/17 22:00 11/01/17 22:43 (Peridex 0.12% Liq) 15 ml BID@08,20 MT 11/02/17 08:00 11/10/17 07:49 Vasopressin 40 units/Dextrose 100 ml @ 6 mls/hr [id number] IV 11/02/17 05:23 5/12/18 05:35 (Trandate Inj) 10 mg Q4H PRN IV PUSH 11/05/17 10:45 11/10/17 10:03 (Apresoline Inj) 20 mg Q4H PRN IV PUSH 11/06/17 07:30 11/09/17 05:18 (Lactulose Liq) 30 ml Q8H PO 11/06/17 09:00 11/10/17 07:49 Nicardipine HCl 25 mg/Sodium Chloride 250 ml @ 50 mls/hr TITRATE PRN IV 11/06/17 10:00 Potassium Chloride 100 ml @ 50 mls/hr Q2H PRN IV 11/07/17 07:45 11/10/17 07:47 Potassium Chloride 100 ml @ 50 mls/hr Q2H PRN IV 11/07/17 07:45 11/09/17 07:25 (K-Lyte Cl Eff) 50 meq UNSCH PRN PO 11/07/17 07:45 11/08/17 17:55 Potassium Chloride 100 ml @ 25 mls/hr UNSCH PRN IV 11/07/17 07:45 11/08/17 08:35 Potassium Chloride 100 ml @ 50 mls/hr Q2H PRN IV 11/07/17 07:45 Magnesium Sulfate 4 gm/Sodium Chloride 100 ml @ 50 mls/hr UNSCH PRN IV 11/07/17 07:45 (Mag-Ox) 800 mg UNSCH PRN PO 11/07/17 07:45 Magnesium Sulfate 2 gm/Sodium Chloride 100 ml @ 50 mls/hr UNSCH PRN IV 11/07/17 07:45 (K-Phos) 2,000 mg Q4H PRN PO 11/07/17 07:45 Sodium Phosphate 30 mmol/Sodium Chloride 250 ml @ 42 mls/hr UNSCH PRN IV 11/07/17 07:45 (K-Phos) 2,000 mg UNSCH PRN PO/TUBE 11/07/17 07:45 Potassium Phosphate 30 mmol/ Sodium Chloride 260 ml @ 42 mls/hr UNSCH PRN IV 11/07/17 07:45 (Lopressor) 25 mg Q8HR PO 11/07/17 07:45 11/10/17 07:48 (Xifaxan) 550 mg BID PO 11/07/17 21:00 11/10/17 07:48 (Duoneb Neb) 1 ampule Q6HR NEB NEB 11/09/17 10:30 11/10/17 09:29 (Cerebyx Inj) 200 mgpe Q12H IV 11/10/17 02:00 11/10/17 00:42 Sodium Chloride 1,000 ml @ 100 mls/hr Q10H IV 11/09/17 13:30 11/10/17 00:33 Levofloxacin/ Dextrose 100 ml @ 100 mls/hr Q24H IV 11/10/17 09:00 11/10/17 10:03 Allergies Allergies Coded Allergies Sulfa (Sulfonamide Antibiotics) (Verified Allergy, Severe, 10/31/17) codeine (Verified Allergy, Severe, Nausea/Vomiting, 10/31/17) Uncoded Allergies METAL ( Allergy, Intermediate, hives, 03/08/16) SURGICAL STEEL ( Allergy, Intermediate, hives, 03/08/16) Review of Systems All other ROS: Unable to obtain Exam I&O / VS Vital Signs Date Time Temp Pulse Resp B/P (MAP) Pulse Ox O2 Delivery O2 Flow Rate FiO2 11/10/17 09:32 97 Nasal Cannula 2.00 11/10/17 08:00 95 Nasal Cannula 3.00 11/10/17 06:00 80 11/10/17 04:00 99.2 85 24 183/97 (125) 100 11/10/17 04:00 91 11/10/17 02:00 89 11/10/17 00:00 99.2 81 19 162/75 (104) 11/10/17 00:00 81 11/09/17 22:00 83 11/09/17 20:43 80 144/82 11/09/17 20:00 94 Nasal Cannula 3.00 11/09/17 20:00 99.8 82 20 156/73 (100) 97 11/09/17 20:00 82 11/09/17 19:00 95 Nasal Cannula 3.00 40 11/09/17 18:00 84 11/09/17 16:00 99.4 80 20 121/58 (79) 96 11/09/17 16:00 80 11/09/17 14:00 81 11/09/17 12:00 98.9 80 20 154/76 (102) 94 11/09/17 12:00 80 Cardiology: Regular Rhythm Musculoskeletal: Tenderness, Swelling Exam Comments Patient is in a stuporous state does not follow nonverbal and somnolent partially opens eyes to tactile stimuli. Groans a little bit times to be more verbal more grimacing extraocular movements intact pupils millimeters sluggishly reactive no facial asymmetry. There is have a left-sided hemiparesis sensory examination cerebellar testing limited secondary to patient' s mental status Objective Micro and Labs Laboratory Tests Test 11/09/17 11:16 11/09/17 20:15 11/10/17 04:15 Activated Partial Thromboplast Time 49.4 52.2 56.7 Blood Urea Nitrogen 33 27 Creatinine 1.48 1.34 Random Glucose 316 341 Calcium Level 8.3 7.7 Sodium Level 148 148 Potassium Level 3.6 3.1 Chloride Level 114 114 Carbon Dioxide Level 23.8 24.0 Anion Gap 10 10 Estimat Glomerular Filtration Rate 35 39 White Blood Count 19.0 Red Blood Count 3.58 Hemoglobin 9.4 Hematocrit 29.6 Mean Corpuscular Volume 82.8 Mean Corpuscular Hemoglobin 26.4 Mean Corpuscular Hemoglobin Concent 31.8 Red Cell Distribution Width 18.5 Platelet Count 166 Mean Platelet Volume 9.2 Neutrophils (%) (Auto) 89.0 Lymphocytes (%) (Auto) 6.3 Monocytes (%) (Auto) 4.2 Eosinophils (%) (Auto) 0.4 Basophils (%) (Auto) 0.1 Neutrophils # (Auto) 16.9 Lymphocytes # (Auto) 1.2 Monocytes # (Auto) 0.8 Eosinophils # (Auto) 0.1 Basophils # (Auto) 0.0 CBC Comment AUTO DIFF Differential Total Cells Counted 100 Neutrophils % (Manual) 82 Band Neutrophils % 2 Lymphocytes % 4 Monocytes % 4 Eosinophils % 1 Neutrophils # (Manual) 17.3 Metamyelocytes 2 Myelocytes 4 Promyelocytes 1 Differential Comment FINAL DIFF MANUAL Platelet Estimate NORMAL Platelet Morphology Comment NORMAL Polychromasia 2.4 Basophilic Stippling MOD Total Protein 7.1 Albumin 2.9 Phosphorus Level 2.6 Magnesium Level 1.6 Alkaline Phosphatase 103 Aspartate Amino Transf (AST/SGOT) 23 Alanine Aminotransferase (ALT/SGPT) 43 Total Bilirubin 0.9 Ammonia 33 Phenytoin (Dilantin) Level 9.7 Date/Time Source Procedure Growth Status 11/02/17 04:23 Blood Peripheral Aerobic Blood Culture - Final NO GROWTH IN 5 DAYS Complete 11/02/17 04:23 Blood Peripheral Anaerobic Blood Culture - Final NO GROWTH IN 5 DAYS Complete 11/01/17 20:00 Stool Stool Stool Occult Blood (NANI) - Final HEMOCCULT NEGATIVE Complete 11/05/17 10:58 Sputum Endotracheal Gram Stain - Final Complete 11/05/17 10:58 Sputum Endotracheal Sputum Culture - Final NO GROWTH IN 48 HOURS. Complete 10/31/17 13:30 Urine Clean Catch Urine Culture - Final Escherichia Coli Complete Problem Qualifiers (1) Hypertension: Qualified Codes: I10 - Essential (primary) hypertension Jose Eduardo Snell MD November 10, 2017 10:19
--- NOTE | 2017-11-10 11:44 | HHI.NPPN ---
Subjective General Problems: Anemia, Edema, Hypotension, Mebatolic Acidosis Renal Failure: Acute History of Present Illness 72-year-old female with past medical history of hypertension, diabetes mellitus, hyperlipidemia, atrial fibrillation, history of colon cancer, history of acute kidney injury in the past. She was admitted with complaint of worsening shortness of breath and recurrent falls. I was called to see the patient because of elevated BUN and creatinine. The patient was seen by me when she was here in February of last year. At that time, she also has acute kidney injury and her creatinine was as high as 1.8, but it was improving and it went down to 0.6-0.7 which is her baseline. Additional Remarks Ongoing encephalopathy Review of Systems General General Remarks Not able to do review of system secondary to mental status. Objective Data Data 11/10/17 11/11/17 19:00 07:00 Intake Total 1250 ml Balance 1250 ml IV Total 1250 ml Vital Signs Date Time Temp Pulse Resp B/P (MAP) Pulse Ox O2 Delivery O2 Flow Rate FiO2 11/10/17 10:00 85 11/10/17 09:32 97 Nasal Cannula 2.00 11/10/17 08:00 98.9 83 23 155/73 (100) 95 11/10/17 08:00 95 Nasal Cannula 3.00 11/10/17 08:00 83 11/10/17 06:00 80 11/10/17 04:00 99.2 85 24 183/97 (125) 100 11/10/17 04:00 91 11/10/17 02:00 89 11/10/17 00:00 99.2 81 19 162/75 (104) 11/10/17 00:00 81 11/09/17 22:00 83 11/09/17 20:43 80 144/82 11/09/17 20:00 94 Nasal Cannula 3.00 11/09/17 20:00 99.8 82 20 156/73 (100) 97 11/09/17 20:00 82 11/09/17 19:00 95 Nasal Cannula 3.00 40 11/09/17 18:00 84 11/09/17 16:00 99.4 80 20 121/58 (79) 96 11/09/17 16:00 80 11/09/17 14:00 81 11/09/17 12:00 98.9 80 20 154/76 (102) 94 11/09/17 12:00 80 -: 11/10/17 0415 11/10/17 0415 Tubes & Lines: [place] Physical Exam Eyes Eye Exam: Pupils Equal Throat Throat Exam: Oral Mucosa [place] & Moist Neck Neck Exam: Neck Supple Pulmonary Resp Exam: Rhonchi, Sputum, Decreased Bases, Diminished Breath Sounds, Poor Inspiratory Effort Cardiology CV Exam: Irregular Gastrointestinal/Abdomen GI Exam: Soft, Non-Tender, Bowel Sounds Present, Distended Extremeties Extremities Exam: Moderate Edema, Pitting Edema, Dependent Edema Assessment/Plan Assessment Summary: ASH/Acute Renal Failure Problem List: (1) Diabetes mellitus, type II ICD Codes: E11.9 - Type 2 diabetes mellitus Status: Chronic (2) PNA (pneumonia) ICD Codes: J18.9 - Pneumonia, unspecified organism Status: Acute (3) Hypothyroidism ICD Codes: E03.9 - Hypothyroidism Status: Chronic (4) Atrial fibrillation ICD Codes: I48.91 - Unspecified atrial fibrillation Status: Chronic (5) Acute kidney failure ICD Codes: N17.9 - Acute kidney failure, unspecified (6) UTI (urinary tract infection) ICD Codes: N39.0 - Urinary tract infection, site not specified (7) Sepsis due to Gram-negative organism with septic shock ICD Codes: A41.50 - Gram-negative sepsis, unspecified; R65.21 - Severe sepsis with septic shock Status: Resolved Plan Patient has chronic kidney disease and develop ASH. Creatinine improving : 1.48 -> 1.46 -> 1.34 Urinary output at 2.9L/24 hours Has elevated liver enzymes Scheduled lactulose Ongoing hypokalemia - with GI losses and increasing UOP: on replacement protocol. Hypernatremia with Na 150 -> 148 today, with possible free water diuresis. On 06/25 NS@100cc/hour. BP is stable. Continue antibiotics. Avoid Nephrotoxins, and follow the BMP. Labs in AM Problem Qualifiers (1) Atrial fibrillation: Qualified Codes: I48.2 - Chronic atrial fibrillation (2) UTI (urinary tract infection): Quincy Burns MD November 10, 2017 11:44
[2017-11-10] MEDS: VASOPRESSIN INJ 40 UNITS in DEXTROSE 5% IN WATER 100ML INJ 98 ML IV SCH ×2 (13:23)
--- NOTE | 2017-11-10 14:07 | HHI.IDPN ---
Subjective Subjective Remarks ID [id number] cover for Dr Srinivasan chart was reviewed' Ms. Marroquin is a 72-year-old female with past medical history significant for colon cancer with reported history of spots on her vertebrae. Patient's spouse reports that she was scheduled to have a PET scan but could not complete it as she was extremely weak. Dr. Vargas is her oncologist and is following her. Her past medical history is also significant for hypertension hyperlipidemia, atrial fibrillation status post previous ablation, type 2 diabetes. With this background patient presents to the emergency department with generalized weakness as well as hypotensive upon arrival. She was diagnosed with possible UTI sepsis. She received 4 L of IV fluids in the emergency room and her blood pressure improved to 690s systolic. But she continued to be in atrial fibrillation with heart rate in 130s. She had a negligible urine output despite 4 L IV fluids and elevated lactic acid remains a concern. Sepsis workup was initiated and patient was started on empiric IV antibiotics for presumed UTI related sepsis. Per review of records it appears that patient reportedly did not eat or drink for 30 hours prior to admission and was having burning with urination approximately 2 days prior to admission. CT of the head was done which was unremarkable a CT of the abdomen pelvis showed moderate hydronephrosis as well as several spots as mentioned in the report concerning for malignancy related metastases. Oncology Dr. Vargas is following the patient. A VQ scan was done which showed low probability of PE. Blood cultures done on admission are positive for E. coli as well as her urine culture was also positive for E. coli. Patient has been treated with ceftriaxone and has been clinically improved. Repeat blood cultures are negative so far. Urology has seen the patient and there is no plan for placement of stent. This appears to be hydronephrosis with stranding around the kidney suggestive of pyelonephritis. Infectious diseases consulted for evaluation and management of sepsis, E. coli bacteremia and E. coli pyelonephritis. Overnight events reviewed + low grade fevers no rash No diarrhea. MS is worse, she is obtunded and essentially unresponsive CT head negative. EEG ongoing in room. US liver with cirrhosis, mild hydronephrosis. Ammonia mildly elevated. s/b GI Rifaximin started. Antibiotics cefepime Lines Port site [place] Past Medical History reviewed Allergies: Coded Allergies: Sulfa (Sulfonamide Antibiotics) (Verified Allergy, Severe, 10/31/17) codeine (Verified Allergy, Severe, Nausea/Vomiting, 10/31/17) Uncoded Allergies: METAL (Allergy, Intermediate, hives, 03/08/16) SURGICAL STEEL (Allergy, Intermediate, hives, 03/08/16) Objective . Vital Signs Date Time Temp Pulse Resp B/P (MAP) Pulse Ox O2 Delivery O2 Flow Rate FiO2 11/10/17 12:00 82 11/10/17 12:00 99.9 82 19 140/69 (92) 96 11/10/17 10:00 85 11/10/17 09:32 97 Nasal Cannula 2.00 11/10/17 08:00 98.9 83 23 155/73 (100) 95 11/10/17 08:00 95 Nasal Cannula 3.00 11/10/17 08:00 83 11/10/17 06:00 80 11/10/17 04:00 99.2 85 24 183/97 (125) 100 11/10/17 04:00 91 11/10/17 02:00 89 11/10/17 00:00 99.2 81 19 162/75 (104) 11/10/17 00:00 81 11/09/17 22:00 83 11/09/17 20:43 80 144/82 11/09/17 20:00 94 Nasal Cannula 3.00 11/09/17 20:00 99.8 82 20 156/73 (100) 97 11/09/17 20:00 82 11/09/17 19:00 95 Nasal Cannula 3.00 40 11/09/17 18:00 84 11/09/17 16:00 99.4 80 20 121/58 (79) 96 11/09/17 16:00 80 11/09/17 14:00 81 11/10/17 11/10/17 11/11/17 15:00 23:00 07:00 Intake Total 1350 ml Balance 1350 ml IV Total 1350 ml . Laboratory Tests Test 11/09/17 04:00 11/10/17 04:15 White Blood Count 20.6 TH/MM3 19.0 TH/MM3 Red Blood Count 3.74 MIL/MM3 3.58 MIL/MM3 Hemoglobin 9.6 GM/DL 9.4 GM/DL Hematocrit 30.1 % 29.6 % Mean Corpuscular Volume 80.6 FL 82.8 FL Mean Corpuscular Hemoglobin 25.7 PG 26.4 PG Mean Corpuscular Hemoglobin Concent 31.8 % 31.8 % Red Cell Distribution Width 18.1 % 18.5 % Platelet Count 200 TH/MM3 166 TH/MM3 Mean Platelet Volume 8.7 FL 9.2 FL Neutrophils (%) (Auto) 88.6 % 89.0 % Lymphocytes (%) (Auto) 6.6 % 6.3 % Monocytes (%) (Auto) 4.5 % 4.2 % Eosinophils (%) (Auto) 0.1 % 0.4 % Basophils (%) (Auto) 0.2 % 0.1 % Neutrophils # (Auto) 18.3 TH/MM3 16.9 TH/MM3 Lymphocytes # (Auto) 1.4 TH/MM3 1.2 TH/MM3 Monocytes # (Auto) 0.9 TH/MM3 0.8 TH/MM3 Eosinophils # (Auto) 0.0 TH/MM3 0.1 TH/MM3 Basophils # (Auto) 0.0 TH/MM3 0.0 TH/MM3 CBC Comment AUTO DIFF AUTO DIFF Differential Total Cells Counted 100 100 Neutrophils % (Manual) 90 % 82 % Band Neutrophils % 3 % 2 % Lymphocytes % 1 % 4 % Neutrophils # (Manual) 20.4 TH/MM3 17.3 TH/MM3 Metamyelocytes 5 % 2 % Myelocytes 1 % 4 % Nucleated Red Blood Cells 1 /100 WBC Differential Comment FINAL DIFF MANUAL FINAL DIFF MANUAL Platelet Estimate NORMAL NORMAL Platelet Morphology Comment NORMAL NORMAL Polychromasia 2.2 % 2.4 % Basophilic Stippling FAINT MOD Monocytes % 4 % Eosinophils % 1 % Promyelocytes 1 % Laboratory Tests Test 11/08/17 15:25 11/09/17 04:00 11/09/17 09:57 11/09/17 11:16 Potassium Level 3.5 MEQ/L 3.3 MEQ/L 3.6 MEQ/L Blood Urea Nitrogen 35 MG/DL 33 MG/DL Creatinine 1.46 MG/DL 1.48 MG/DL Random Glucose 282 MG/DL 316 MG/DL Total Protein 7.2 GM/DL Albumin 3.0 GM/DL Calcium Level 8.0 MG/DL 8.3 MG/DL Alkaline Phosphatase 83 U/L Aspartate Amino Transf (AST/SGOT) 22 U/L Alanine Aminotransferase (ALT/SGPT) 58 U/L Total Bilirubin 1.0 MG/DL Sodium Level 150 MEQ/L 148 MEQ/L Chloride Level 115 MEQ/L 114 MEQ/L Carbon Dioxide Level 24.6 MEQ/L 23.8 MEQ/L Anion Gap 10 MEQ/L 10 MEQ/L Estimat Glomerular Filtration Rate 35 ML/MIN 35 ML/MIN Ammonia 40 MCMOL/L Random Cortisol 41.6 MCG/DL Test 11/10/17 04:15 Blood Urea Nitrogen 27 MG/DL Creatinine 1.34 MG/DL Random Glucose 341 MG/DL Total Protein 7.1 GM/DL Albumin 2.9 GM/DL Calcium Level 7.7 MG/DL Phosphorus Level 2.6 MG/DL Magnesium Level 1.6 MG/DL Alkaline Phosphatase 103 U/L Aspartate Amino Transf (AST/SGOT) 23 U/L Alanine Aminotransferase (ALT/SGPT) 43 U/L Total Bilirubin 0.9 MG/DL Sodium Level 148 MEQ/L Potassium Level 3.1 MEQ/L Chloride Level 114 MEQ/L Carbon Dioxide Level 24.0 MEQ/L Anion Gap 10 MEQ/L Estimat Glomerular Filtration Rate 39 ML/MIN Ammonia 33 MCMOL/L Imaging Last Impressions Chest X-Ray 11/08/17 0600 Signed Impressions: Service Date/Time: Wednesday, November 08, 2017 04:16 - CONCLUSION: Stable radiographic appearance most consistent with pulmonary edema. Antonio High Jr., MD Brain MRI 11/08/17 0000 Signed Impressions: Service Date/Time: Wednesday, November 08, 2017 14:49 - CONCLUSION: 1. 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 2. Nothing acute. Jj Alvarez MD Liver Ultrasound 11/07/17 0000 Signed Impressions: Service Date/Time: October 08:05 - CONCLUSION: 1. Heterogeneous liver suggestive of hepatocellular disease such as cirrhosis. There is a small amount of ascites surrounding the liver. This is not significantly changed compared to the recent CT scan of the abdomen. 2. Sludge in the gallbladder. No definite gallstones or biliary tract obstruction. 3. Mild splenomegaly. 4. Mild hydronephrosis of the right collecting system. Markie Crabtree MD Head CT 11/06/17 0000 Signed Impressions: Service Date/Time: Monday, November 06, 2017 10:03 - CONCLUSION: 1. No acute intracranial abnormality or significant interval change. César Coats MD Abdomen X-Ray 11/04/17 0000 Signed Impressions: Service Date/Time: Saturday, November 04, 2017 17:50 - CONCLUSION: Nonspecific intestinal gas pattern Jose Wright MD Abdomen/Pelvis CT 10/31/17 1321 Signed Impressions: Service Date/Time: October 13:58 - CONCLUSION: 1. Development of innumerable small sclerotic lesions in the skeleton most characteristic of sclerotic bony metastatic disease. There is a reported history of malignancy. 2. Hepatomegaly with development of mild ascites. 3. Persistent moderate hydronephrosis with perinephric stranding similar to February 2017. Interval development of mild anasarca. 4. Gallbladder sludge. Gallo catheter in bladder. Samuel Lin MD Lung Scan-V Nuclear Medicine 10/31/17 0000 Signed Impressions: Service Date/Time: October 15:00 - CONCLUSION: Low probability scan for pulmonary embolism Jose Wright MD Physical Exam GENERAL: Obese, well-developed patient, in no apparent distress. SKIN: Areas of Ecchymosis. HEAD: Atraumatic. Normocephalic. No temporal or scalp tenderness. EYES: Pupils equal round and reactive. Extraocular motions intact. No scleral icterus. No injection or drainage. ENT: NAD NECK: Trachea midline. Supple, nontender, no meningeal signs. CARDIOVASCULAR: HS audible. No murmur. RESPIRATORY: Clear to auscultation. Breath sounds decreased in the bases. GASTROINTESTINAL: Abdomen soft, mildly distended. Non tender. Incontinent of liquid dark stool MUSCULOSKELETAL: Extremities without clubbing, cyanosis, or edema. No joint tenderness, effusion, or edema noted. NEUR: essentially unresponsive and only moves spontaneously her RUE eyes closed not following commands Psych could not be assessed Port site with no e.o infection. Assessment & Plan Remarks Severe sepsis present on admission E. coli pyelonephritis with hydronephrosis with no evidence of obstruction per urology notes. He did urinary tract infection. No plans for stent placement. E. coli bacteremia appears to be transient and related to the E. coli pyelonephritis. Possible aspiration pneumonia on admission Acute metabolic encephalopathy likely secondary to sepsis, acute renal failure, cirrhosis (hepatic) - Dr Murillo concerned of cefepime causing the encephalopathy, abx switched to levaquine Acute renal failure on admission: prerenal, sepsis. Abnormal LFTs: sepsis, meds, cirrhosis. Leucocytosis Colon cancer with suspected mets. Abx associated diarrhea: r/o c.diff Recs: dc Cefepime, Levaquine - r/o c.diff start renzo mckeon clinical and radiological findings. Krysta Sanchez MD November 10, 2017 14:07
--- NOTE | 2017-11-10 14:34 | RADRPT ---
EXAM DATE/TIME: 11/10/2017 14:00 [facility] COMPARISON: MRI BRAIN W/O CONTRAST, November 08, 2017, 14:49. INDICATIONS : Left sided weakness. MEDICAL HISTORY : Hypertension. Carcinoma, colon. SURGICAL HISTORY : Colon resection. Umbilical hernia repair. section. ENCOUNTER: Initial ACUITY: 1 day PAIN SCORE: 0/10 LOCATION: cranial TECHNIQUE: Multiplanar, multisequence MRI of the brain was performed without contrast. FINDINGS: CEREBRUM: Moderate diffuse cerebral volume loss. The ventricles are normal for degree of atrophy. No evidence of midline shift, mass lesion, hemorrhage or acute infarction. No extraaxial fluid col lections are seen. The pituitary gland and suprasellar cistern are normal in configuration. WHITE MATTER: Mild periventricular and focal T2 hyperintensity in the right centrum semiovale. No associated restricted diffusion. POSTERIOR FOSSA: The cerebellum and brainstem are intact. The 4th ventricle is midline. The cere bellopontine angle is unremarkable. The cerebellar tonsils are normal in position. DIFFUSION IMAGING: No focal areas of restricted diffusion are seen. No evidence of acute infarct ion. EXTRACRANIAL: The visualized portions of the orbits and paranasal sinuses are unremarkable. CONCLUSION: 1. Stable examination. Specifically, no acute infarction, hemorrhage or mass. 2. Senescent changes with periventricular white matter ischemic demyelination and focal lacunar type infarct in the right centrum semiovale. César Coats MD on November 10, 2017 at 14:29 Board Certified Radiologist. This report was verified electronically.
[2017-11-10] MEDS: PIPERACIL-TAZO 3.375 GM PREMIX 50 ML IV SCH ×2 (14:55→20:42)
[2017-11-10] MEDS ORDERED: DEXTROSE 50% IN WATER 50 ML VIAL(D50) IV PUSH PRN (18:15)
[2017-11-10] MEDS: SODIUM CHLORIDE 23.4% INJ 38.5 MEQ in WATER STERILE FOR INJ 1,000 ML IV SCH (18:28)
[2017-11-10] MEDS: ACETAMINOPHEN 1000 MG/100 ML 100 ML IV PRN (20:40)
[2017-11-10] MEDS: INSULIN DETEMIR 100 UNITS/ML VIAL SQ SCH (20:42)
[2017-11-10] MEDS: INSULIN NovoLIN REGULAR SUPPLEMENTAL SCALE SQ SCH (20:42)
--- NOTE | 2017-11-10 21:11 | HHI.CCPN ---
Subjective Remarks/Hospital Course 72-year-old female with a medical history significant for colon cancer, hypertension, hyperlipidemia, atrial fibrillation status post previous ablation , type 2 diabetes mellitus who presented to the ER with generalized weakness and was hypotensive on arrival. She was diagnosed to have a UTI/sepsis. She received 4 L fluids in the ER with systolic blood pressure coming up to the 90s however was tachycardic with heart rate going up to 130s atrial fibrillation. She had a negligible urine output despite 4 L IV fluids and an elevated lactic acid with concern for severe sepsis and acute kidney injury. Patient was admitted by family medicine service and critical care consult was requested by ER physician. I evaluated the patient in the ER. At that time she was on 2 L nasal cannula maintaining O2 sats around 98%. Her systolic blood pressure was in the mid 90 range. She was in atrial fibrillation with heart rate ranging from 110-120s. Patient was awake and alert at the time of my evaluation and was following commands appropriately. She denied any worsening shortness of breath or chest pain at the time. She did have some abdominal discomfort. She appeared slightly tachypneic. She had already received empiric antibiotic coverage. History was obtained by discussion with , ER physician, family medicine residents and review of records. Patient has reportedly not had anything to eat or drink for 30 hours prior to admission. She has been having burning with urination over the past 2 days. Patient had a head CT which was unremarkable, CT abdomen pelvis revealed moderate hydronephrosis, VQ scan was low probability for PE. 11/01: Patient appears critical, tachypneic. Urine output marginal 200 mL overnight shift time. Blood cultures 4 out of 4 bottles positive for gram- negative rods. Currently on 40 mcg/min of Raymond-Synephrine. Remaisn in A fib with RVR. Will start Amiodarone gtt, attempt rate control/cardioverted. Previous echo done last year shows EF 55-60%, moderate mitral stenosis, mild to moderate aortic stenosis, moderate TR, also will hold Xarelto start IV heparin 11/02: Patient remains very critically ill and septic shock now in respiratory failure. Overnight required intubation for tachypnea and respiratory distress. Received a dose of tobramycin Sensitivities are pending for E. coli. White count has dropped to 2.1 creatinine is 2.12 today. Will discontinue Zosyn and start renally dosed meropenem. Remains on amiodarone infusion heart rate slightly better controlled. Raymond-Synephrine just weaned off, but currently patient is hypotensive with maps 61 11/03: Remains very critical. Failed CPAP trials. Off pressors but urine output is decreasing creatinine has increased BUN 59/creatinine 3.36. WBC count elevated to 20.3 with a 22% bands. E. coli is pansensitive DC meropenem and start Rocephin. 11/04: Remains sedated, orally intubated on mechanical ventilation. On Levophed 2 mics per minute for hypotension. Failed CPAP trial yesterday. 11/05: Arousable off sedation. On mechanical ventilation. Daily CPAP trials ongoing. 11/06: Extubated yesterday, weak but breathing comfortably. Hypertensive. WBC 22.2, but clinically improving, possibly steroid induced. Will DC Hydrocortisone 11/07. Patient remains encephalopathy. But moving all extremities appears to be protecting airway. States of few words. But did not open eyes. WBC is 25.6. BUN 49 creatinine 1.81 urine output 1.6 L. Ammonia level was 71 yesterday, lactulose changed to scheduled. Had 2 bowel movements overnight repeat ammonia today. Remains hypotensive, insert NG tube for medication and nutrition. Start scheduled metoprolol 25 every 8 hours 11/08: The patient was noted to be still lethargic. No spontaneous eye opening, not even stating words today. Clonidine discontinued as as needed medication for hypertension. If needed will increase metoprolol every 8 hours. Patient continues on hydralazine and labetalol as needed for hypertension. Patient remains n.p.o.. Pravastatin placed on hold 2/2 elevated LFTs. 11/09: Neurological status unchanged overnight. Neurology has been consulted for continued encephalopathy. The patient continues on lactulose ammonia level 40. Hydrocortisone discontinued, several days ago. Cortisol level pending. 11/10: neuro exam remains poor, but patient protecting airway. lactulose continues. no other changes. Objective Vital Signs Date Time Temp Pulse Resp B/P (MAP) Pulse Ox O2 Delivery O2 Flow Rate FiO2 11/10/17 19:30 100 Nasal Cannula 4.00 11/10/17 18:00 76 11/10/17 16:00 99.4 19 163/78 11/09/17 19:00 40 Intake and Output 11/10/17 11/10/17 11/11/17 08:00 16:00 00:00 Intake Total 550 ml 1250 ml 480 ml Output Total 2050 ml 1000 ml 600 ml Balance -1500 ml 250 ml -120 ml Result Diagram: 11/10/17 0415 11/10/17 1451 Imaging Last Impressions Chest X-Ray 11/08/17 0600 Signed Impressions: Service Date/Time: Wednesday, November 08, 2017 04:16 - CONCLUSION: Stable radiographic appearance most consistent with pulmonary edema. Antonio High Jr., MD Brain MRI 11/08/17 0000 Signed Impressions: Service Date/Time: Wednesday, November 08, 2017 14:49 - CONCLUSION: 1. 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 2. Nothing acute. Jj Alvarez MD Liver Ultrasound 11/07/17 0000 Signed Impressions: Service Date/Time: October 08:05 - CONCLUSION: 1. Heterogeneous liver suggestive of hepatocellular disease such as cirrhosis. There is a small amount of ascites surrounding the liver. This is not significantly changed compared to the recent CT scan of the abdomen. 2. Sludge in the gallbladder. No definite gallstones or biliary tract obstruction. 3. Mild splenomegaly. 4. Mild hydronephrosis of the right collecting system. Markie Crabtree MD Head CT 11/06/17 0000 Signed Impressions: Service Date/Time: Monday, November 06, 2017 10:03 - CONCLUSION: 1. No acute intracranial abnormality or significant interval change. César Coats MD Abdomen X-Ray 11/04/17 0000 Signed Impressions: Service Date/Time: Saturday, November 04, 2017 17:50 - CONCLUSION: Nonspecific intestinal gas pattern Jose Wright MD Abdomen/Pelvis CT 10/31/17 1321 Signed Impressions: Service Date/Time: October 13:58 - CONCLUSION: 1. Development of innumerable small sclerotic lesions in the skeleton most characteristic of sclerotic bony metastatic disease. There is a reported history of malignancy. 2. Hepatomegaly with development of mild ascites. 3. Persistent moderate hydronephrosis with perinephric stranding similar to February 2017. Interval development of mild anasarca. 4. Gallbladder sludge. Gallo catheter in bladder. Samuel Lin MD Lung Scan-VQ Nuclear Medicine 10/31/17 0000 Signed Impressions: Service Date/Time: October 15:00 - CONCLUSION: Low probability scan for pulmonary embolism Jose Wright MD Last 48 hours Impressions Chest X-Ray 11/03/17 0600 Signed Impressions: Service Date/Time: Friday, November 03, 2017 04:01 - CONCLUSION: No significant change. Robe Menchaca MD Last Impressions Head CT 10/31/17 1321 Signed Impressions: Service Date/Time: October 14:02 - CONCLUSION: 1. No acute intracranial findings. Left sphenoid sinusitis. Remote lacunar infarct right frontal white matter. Samuel Lin MD Abdomen/Pelvis CT 10/31/17 1321 Signed Impressions: Service Date/Time: October 13:58 - CONCLUSION: 1. Development of innumerable small sclerotic lesions in the skeleton most characteristic of sclerotic bony metastatic disease. There is a reported history of malignancy. 2. Hepatomegaly with development of mild ascites. 3. Persistent moderate hydronephrosis with perinephric stranding similar to February 2017. Interval development of mild anasarca. 4. Gallbladder sludge. Gallo catheter in bladder. Samuel Lin MD Lung Scan-VQ Nuclear Medicine 10/31/17 0000 Signed Impressions: Service Date/Time: October 15:00 - CONCLUSION: Low probability scan for pulmonary embolism Jose Wright MD Chest X-Ray 10/31/17 0000 Signed Impressions: Service Date/Time: October 12:24 - CONCLUSION: No acute disease. Heart size appears enlarged. Jose Pablo MD Objective Remarks Gen: 72-year-old critically ill female who is lying on bed, lethargic somnolent , no spontaneous eye open HEENT: No pallor or icterus Neck: No JVD Chest/pulmonary: Air entry equal bilaterally, slightly diminished at the bases. protects airway. Cardiovascular: Sinus rhythm now, no gallop or murmur. GI/abdomen: Soft, no tenderness, bowel sounds present. Distended, no rebound Extremities: Warm bilaterally, trace edema Neuro: Somnolent. Moves all 4 extremities no focal deficit. She can state a few words but did not open eyes. Positive gag ,lid reflexes A/P Assessment and Plan 72-year-old female with: ASSESSMENT: Acute metabolic encephalopathy Hyperammonemia Severe sepsis Acute respiratory failure-extubated 11/05/17 Acute kidney failure/ATN Atrial fibrillation with RVR, now NSR E Coli bacteremia/UTI with E. coli Lactic acidosis Elevated liver enzymes Moderate hydronephrosis Chronic atrial fibrillation Moderate mitral stenosis, mild to moderate aortic stenosis, moderate tricuspid regurgitation History of pulmonary embolism Colon cancer with suspected metastatic disease Vitamin B12 deficiency Diabetes Type 2 - on insulin h/o Hypertension Hyperlipidemia Depression Hypothyroidism h/o CVA h/o PE (03/2017) h/o Pyelo/PNA (03/2017 requiring intubation) Pulmonary edema PLAN: Neuro: -Off all sedation -11/08 Discontinue clonidine utilized for hypertension as needed, secondary to possible contribution of lethargic -Continue lactulose, and rifaximin repeat ammonia level -PT/OT speech -11/08 MRI-chronic changes old lacunar infarct no acute abnormality Cardiovascular: -Hypertensive now, use labetalol and hydralazine IV as needed. Clonidine discontinued. -scheduled metoprolol 25 p.o. every 8 hours. -Discontinued stress dose steroids 11/06 -On IV amiodarone since 11/01. Transitioned to p.o. amiodarone 11/06 -IV digoxin as needed -Holding Xarelto for anticoagulation, Continue IV heparin -Need rate control due to moderate mitral stenosis and mild to moderate aortic stenosis, currently NSR - 11/09 Obtain Cortisol level: 41. adequate. Pulmonary: -Intubated 11/01/17 for acute respiratory failure, extubated 11/05/17 -11/08 chest x-ray pulmonary edema-Lasix 40 mg IVP -DuoNeb every 6 hours and as needed -EzPAP, Acapella, IS, as tolerated GI/liver: -Pepcid for GI prophylaxis. NGT p.o. meds and nutrition -Start tube feedings with Jevity after getting US liver rule out cholecystitis Renal/: -Nephrology following. Urine output is adequate. Creatinine improving 1 -Urology consulted in the setting of moderate hydronephrosis with renal failure , did not recommend stent placement ID: - C. Diff + 11/10. started iv flagyl. may require PO vanc as well. -ultrasound of the liver-Heterogeneous liver suggestive of hepatocellular disease such as cirrhosis. There is a small amount of ascites surrounding the liver. This is not significantly changed compared to the recent CT scan of the abdomen.Sludge in the gallbladder. No definite gallstones or biliary tract obstruction. Mild splenomegaly. Mild hydronephrosis of the right collecting system. -1 dose of tobramycin given overnight on 11/01 prior to cultures stu available -Blood and urine culture pansensitive E. coli -ID following- started zosyn 11/10 (d/c'd cefepime, levaquin) Heme-onc: -Dr. Candelario following for history of colon cancer in suspected metastatic lesions on CT abdomen pelvis. -Need PET scan when stable Endocrine: -SSI for glycemic control. -Vitamin B12 level is low.vitamin B12 injections 1000 mcg IM daily for 10 days then monthly Prophylaxis: -Pepcid/SCDs. Holding Xarelto, continue IV heparin (IV heparin for Cindy nunez, also for history of pulmonary embolism last year, she is high risk due to underlying malignancy) Access: -Has peripheral IVs and port. Patient's condition is critical worsening encephalopathy is now concerning for ongoing or worsening sepsis. Patient may further decompensate and may require mechanical ventilatory support. Avoidance of sedative type medication clonidine discontinued patient will require rate control will consider increasing metoprolol if needed. Neurology has been consulted regarding encephalopathy. Ehsan Damon MD November 10, 2017 21:11
[2017-11-10] MEDS: VANCOMYCIN 500 MG VIAL (FOR ORAL USE ONLY) PO SCH (23:01)
[2017-11-10] MEDS: metroNIDAZOLE 500 MG INJ 100 ML IV SCH (23:02)
[2017-11-11] VITALS (15 sets, daily range): BP systolic 128–179; BP diastolic 62–91; PULSE 81–92; RESP 14–25; TEMP 99.7–100.3; O2SAT 98–99
[2017-11-11] MEDS: INSULIN NovoLIN REGULAR SUPPLEMENTAL SCALE SQ SCH ×6 (00:08→20:33)
[2017-11-11] MEDS: LABETALOL HCL 100 MG/20 ML VIAL IV PUSH PRN ×3 (01:05→21:25)
[2017-11-11] MEDS: FOSPHENYTOIN SODIUM 100 MG PE/2 ML VIAL IV SCH ×2 (01:07→13:16)
[2017-11-11] MEDS: RESP: ALBUTEROL 2.5 MG/IPRATROPIUM 0.5 MG NEB (SCH) NEB ×4 (03:04→20:19)
[2017-11-11] MEDS: LACTULOSE SYRUP 20 GM/30 ML CUP PO SCH ×4 (03:32→20:34)
[2017-11-11] MEDS: PIPERACIL-TAZO 3.375 GM PREMIX 50 ML IV SCH ×4 (03:32→20:34)
[2017-11-11] MEDS: metroNIDAZOLE 500 MG INJ 100 ML IV SCH ×2 (03:48→09:12)
[2017-11-11] MEDS: VANCOMYCIN 500 MG VIAL (FOR ORAL USE ONLY) PO SCH ×4 (03:48→20:35)
[2017-11-11 03:50] LABS: MITOCHONDRIAL ABS LESS THAN 20.0 U (<=20.0)
[2017-11-11 05:00] LABS: AUTOMATED NEUTROPHIL # 15.7 TH/MM3 (1.8-7.7); BASOPHIL % 0.1 % (0.0-2.0); EOSINOPHIL # 0.1 TH/MM3 (0-0.4); EOSINOPHIL % 0.8 % (0.0-4.0); HEMATOCRIT 29.3 % (35.0-46.0); HEMOGLOBIN 9.1 GM/DL (11.6-15.3); LYMPH % 5.9 % (9.0-44.0); MEAN CELL VOLUME 83.3 FL (80.0-100.0); MEAN CORPUSCULAR HGB CONC 31.3 % (32.0-36.0); MEAN PLATELET VOLUME 9.2 FL (7.0-11.0); MONO % 4.4 % (0.0-8.0); MONOCYTE # 0.8 TH/MM3 (0-0.9); NEUT % 88.8 % (16.0-70.0); PLATELET COUNT 154 TH/MM3 (150-450); RED BLOOD COUNT 3.51 MIL/MM3 (4.00-5.30); RED CELL DISTRIBUTION WIDTH 18.9 % (11.6-17.2); WHITE BLOOD COUNT 17.7 TH/MM3 (4.0-11.0)
[2017-11-11] MEDS: LEVOTHYROXINE SODIUM 50 MCG TAB PO SCH (05:07)
[2017-11-11] MEDS: METOPROLOL TARTRATE 25 MG TAB PO SCH ×3 (05:07→20:35)
[2017-11-11 05:22] LABS: ALBUMIN 2.6 GM/DL (3.4-5.0); ALT (GPT) 37 U/L (10-53); AST (GOT) 29 U/L (15-37); BLOOD UREA NITROGEN 22 MG/DL (7-18); CALCIUM 7.7 MG/DL (8.5-10.1); CHLORIDE 113 MEQ/L (98-107); CREATININE 1.24 MG/DL (0.50-1.00); GLOMERULAR FILTRATION RATE 43 ML/MIN (>89); GLUCOSE,RANDOM 266 MG/DL (74-106); MAGNESIUM 1.6 MG/DL (1.5-2.5); PHOSPHORUS 2.2 MG/DL (2.5-4.9); SODIUM (NA) 147 MEQ/L (136-145)
[2017-11-11 05:24] LABS: ALKALINE PHOSPHATASE 117 U/L (45-117); PHENYTOIN (DILANTIN) 8.7 MCG/ML (10.0-20.0); TOTAL BILIRUBIN ADULT 0.7 MG/DL (0.2-1.0); TOTAL PROTEIN 6.5 GM/DL (6.4-8.2)
[2017-11-11] MEDS: CHLORHEXIDINE 0.12% (ORAL KIT) 15 ML CUP MT SCH ×2 (08:00→20:00)
[2017-11-11] MEDS: SODIUM CHLORIDE 0.9% FLUSH 10 ML FLUSH IV FLUSH SCH ×2 (08:32→20:34)
[2017-11-11] MEDS: ALBUMIN 25% INJ 50 ML IV SCH ×2 (08:33→20:34)
[2017-11-11] MEDS: FLUoxetine HCL 20 MG CAP PO SCH (08:34)
[2017-11-11] MEDS: CYANOCOBALAMIN 1000 MCG/ML VIAL SQ SCH (08:34)
[2017-11-11] MEDS: AMIODARONE 200 MG TAB PO SCH (08:34)
[2017-11-11] MEDS: RIFAXIMIN 550 MG TAB PO SCH ×2 (08:34→20:34)
[2017-11-11] MEDS: DOCUSATE SODIUM 50 MG/SENNA 8.6 MG TAB PO SCH ×2 (08:34→20:34)
[2017-11-11] MEDS: ACETAMINOPHEN/HYDROcodone 325 MG/5 MG TAB PO PRN ×2 (08:35→20:35)
[2017-11-11] MEDS: MODAFINIL 200 MG TAB PO SCH (09:00)
[2017-11-11] MEDS: VENLAFAXINE HCL XR 75 MG CAP PO SCH (09:00)
--- NOTE | 2017-11-11 11:02 | HHI.PR ---
Review/Management Diagnosis/Plan: (1) Encephalopathy, metabolic ICD Codes: G93.41 - Metabolic encephalopathy Status: Acute Plan: Likely multifactorial metabolic in etiology secondary to renal failure, systemic inflammatory response syndrome, potentially medication Cefepime could potentially cause seizure and confusion Renal function has been improving, mild hyperammonemia EEG demonstrated moderate encephalopathy with triphasic waveforms; possible she could have some episodes of nonconvulsive seizures Continue IV Celebrex Corrected Dilantin level 13.59, serum albumin 2.6 Recommendations Follow-up EEG Repeat MRI brain scan with left-sided weakness; no acute lesion noted Follow exam Discussed patient's spouse (2) ASH (acute kidney injury) ICD Codes: N17.9 - Acute kidney failure, unspecified Status: Acute Plan: Followed by the renal service (3) Hypertension ICD Codes: I10 - Essential (primary) hypertension Status: Chronic Plan: Per field service manager (4) Atrial fibrillation with rapid ventricular response ICD Codes: I48.91 - Atrial fibrillation with rapid ventricular response Status: Chronic Plan: On anticoagulation Subjective Subjective Comments No acute events reported Active Medications Current Medications Medications (Trade) Dose Ordered Sig/Chiqui Route Start Time Stop Time Status Last Admin (Cordarone) 200 mg DAILY PO 11/01/17 09:00 Future hold 11/11/17 08:34 (PROzac) 20 mg DAILY PO 11/01/17 09:00 11/11/17 08:34 (Synthroid) 50 mcg DAILY@0600 PO 11/01/17 06:00 11/11/17 05:07 (Pravachol) 40 mg DAILY PO 11/01/17 09:00 Future Hold 11/08/17 08:36 (Xarelto) 20 mg DAILY PO 11/01/17 09:00 Future Hold (Effexor Xr) 75 mg DAILY PO 11/01/17 09:00 11/11/17 09:00 (NS Flush) 2 ml UNSCH PRN IV FLUSH 10/31/17 15:30 (NS Flush) 2 ml BID IV FLUSH 10/31/17 21:00 11/11/17 08:32 (Tylenol) 650 mg Q4H PRN PO 10/31/17 15:30 11/01/17 19:50 (Narcan Inj) 0.4 mg UNSCH PRN IV PUSH 10/31/17 15:30 (Elsa-Colace) 1 tab BID PO 10/31/17 21:00 11/11/17 08:34 (Milk Of Magnesia Liq) 30 ml Q12H PRN PO 10/31/17 15:30 (Senokot) 17.2 mg Q12H PRN PO 10/31/17 15:30 11/04/17 08:19 (Dulcolax Supp) 10 mg DAILY PRN RECTAL 10/31/17 15:30 (Glucagon Inj) 1 mg UNSCH PRN OTHER 10/31/17 15:30 (Zofran Odt) 4 mg Q6H PRN PO 10/31/17 15:30 11/07/17 20:48 Acetaminophen 100 ml @ 400 mls/hr Q6H PRN IV 10/31/17 17:15 11/10/17 20:40 ([facility] Nursing Information) Patient in critical care unit? Ass... [id number] .XX 10/31/17 23:15 10/31/17 23:15 (Brethine Inj) 1 mg UNSCH PRN SQ 10/31/17 23:30 Heparin Sodium/ Dextrose 250 ml @ 10 mls/hr TITRATE PRN IV 11/01/17 09:00 11/10/17 21:10 Albumin Human 50 ml @ 60 mls/hr Q12H IV 11/01/17 09:00 11/11/17 08:33 ([place] 5-325 Mg) 1 tab Q4H PRN PO 11/01/17 13:15 11/11/17 08:35 (Pyridium) 100 mg Q8H PRN PO 11/01/17 13:45 (Restoril) 15 mg HS PRN PO 11/01/17 22:00 11/01/17 22:43 (Peridex 0.12% Liq) 15 ml BID@08,20 MT 11/02/17 08:00 11/11/17 08:00 (Trandate Inj) 10 mg Q4H PRN IV PUSH 11/05/17 10:45 11/11/17 05:09 (Apresoline Inj) 20 mg Q4H PRN IV PUSH 11/06/17 07:30 11/09/17 05:18 Potassium Chloride 100 ml @ 50 mls/hr Q2H PRN IV 11/07/17 07:45 11/10/17 07:47 Potassium Chloride 100 ml @ 50 mls/hr Q2H PRN IV 11/07/17 07:45 11/09/17 07:25 (K-Lyte Cl Eff) 50 meq UNSCH PRN PO 11/07/17 07:45 11/08/17 17:55 Potassium Chloride 100 ml @ 25 mls/hr UNSCH PRN IV 11/07/17 07:45 11/08/17 08:35 Potassium Chloride 100 ml @ 50 mls/hr Q2H PRN IV 11/07/17 07:45 Magnesium Sulfate 4 gm/Sodium Chloride 100 ml @ 50 mls/hr UNSCH PRN IV 11/07/17 07:45 (Mag-Ox) 800 mg UNSCH PRN PO 11/07/17 07:45 Magnesium Sulfate 2 gm/Sodium Chloride 100 ml @ 50 mls/hr UNSCH PRN IV 11/07/17 07:45 (K-Phos) 2,000 mg Q4H PRN PO 11/07/17 07:45 Sodium Phosphate 30 mmol/Sodium Chloride 250 ml @ 42 mls/hr UNSCH PRN IV 11/07/17 07:45 (K-Phos) 2,000 mg UNSCH PRN PO/TUBE 11/07/17 07:45 Potassium Phosphate 30 mmol/ Sodium Chloride 260 ml @ 42 mls/hr UNSCH PRN IV 11/07/17 07:45 (Lopressor) 25 mg Q8HR PO 11/07/17 07:45 11/11/17 05:07 (Xifaxan) 550 mg BID PO 11/07/17 21:00 11/11/17 08:34 (Duoneb Neb) 1 ampule Q6HR NEB NEB 11/09/17 10:30 11/11/17 08:50 (Cerebyx Inj) 200 mgpe Q12H IV 11/10/17 02:00 11/11/17 01:07 Piperacillin Sod/ Tazobactam Sod 50 ml @ 100 mls/hr Q6H IV 11/10/17 15:00 11/11/17 08:32 (Lactulose Liq) 30 ml Q6H PO 11/10/17 21:00 11/11/17 08:33 Sodium Chloride 38.5 meq/Sterile Water 1,009.625 ml @ 60 mls/hr [id number] IV 11/10/17 18:15 11/10/17 18:28 (Provigil) 200 mg DAILY PO 11/11/17 09:00 11/11/17 09:00 (D50w (Vial) Inj) 25 ml UNSCH PRN IV PUSH 11/10/17 18:15 (NovoLIN R SUPPLEMENTAL SCALE) 1 Q4HR SQ 11/10/17 20:00 11/11/17 08:00 (Levemir Inj) 10 units HS SQ 11/10/17 21:00 11/10/17 20:42 (VANCOMYCIN for oral use only) 125 mg Q6H PO 11/10/17 22:00 11/11/17 09:12 Allergies Allergies Coded Allergies Sulfa (Sulfonamide Antibiotics) (Verified Allergy, Severe, 10/31/17) codeine (Verified Allergy, Severe, Nausea/Vomiting, 10/31/17) Uncoded Allergies METAL ( Allergy, Intermediate, hives, 03/08/16) SURGICAL STEEL ( Allergy, Intermediate, hives, 03/08/16) Review of Systems All other ROS: Unable to obtain Exam I&O / VS Vital Signs Date Time Temp Pulse Resp B/P (MAP) Pulse Ox O2 Delivery O2 Flow Rate FiO2 11/11/17 10:00 86 11/11/17 08:50 99 Nasal Cannula 2.00 11/11/17 08:00 86 11/11/17 08:00 99.7 85 14 179/83 (115) 99 11/11/17 07:00 100 Nasal Cannula 3.00 11/11/17 06:00 83 11/11/17 04:00 82 11/11/17 04:00 99.7 82 14 139/67 (91) 99 11/11/17 02:00 81 11/11/17 00:00 83 11/11/17 00:00 99.8 83 25 154/69 (97) 99 11/10/17 22:00 83 11/10/17 20:00 88 11/10/17 20:00 100.0 88 15 186/88 (120) 100 11/10/17 20:00 100 Nasal Cannula 3.00 11/10/17 19:30 100 Nasal Cannula 4.00 11/10/17 18:00 76 11/10/17 16:00 86 11/10/17 16:00 99.4 86 19 163/78 100 11/10/17 14:00 81 11/10/17 13:23 80 165/79 11/10/17 12:00 82 11/10/17 12:00 99.9 82 19 140/69 (92) 96 Cardiology: Regular Rhythm Musculoskeletal: Tenderness, Swelling Exam Comments Patient is in a stuporous state does not follow nonverbal and somnolent opens eyes to tactile stimuli. Groans a little bit times to be more verbal more grimacing extraocular movements intact pupils millimeters sluggishly reactive no facial asymmetry. There is have a left-sided hemiparesis sensory examination cerebellar testing limited secondary to patient's mental status Objective Micro and Labs Laboratory Tests Test 11/10/17 14:51 11/10/17 14:57 11/11/17 04:00 Potassium Level 3.5 3.1 Stool C. difficile Toxin (PCR) POSITIVE Stl C. difficile Toxin Epiderm 027 PRESUMPTIVE NEGATIVE White Blood Count 17.7 Red Blood Count 3.51 Hemoglobin 9.1 Hematocrit 29.3 Mean Corpuscular Volume 83.3 Mean Corpuscular Hemoglobin 26.0 Mean Corpuscular Hemoglobin Concent 31.3 Red Cell Distribution Width 18.9 Platelet Count 154 Mean Platelet Volume 9.2 Neutrophils (%) (Auto) 88.8 Lymphocytes (%) (Auto) 5.9 Monocytes (%) (Auto) 4.4 Eosinophils (%) (Auto) 0.8 Basophils (%) (Auto) 0.1 Neutrophils # (Auto) 15.7 Lymphocytes # (Auto) 1.0 Monocytes # (Auto) 0.8 Eosinophils # (Auto) 0.1 Basophils # (Auto) 0.0 CBC Comment DIFF FINAL Differential Comment Activated Partial Thromboplast Time 42.2 Blood Urea Nitrogen 22 Creatinine 1.24 Random Glucose 266 Total Protein 6.5 Albumin 2.6 Calcium Level 7.7 Phosphorus Level 2.2 Magnesium Level 1.6 Alkaline Phosphatase 117 Aspartate Amino Transf (AST/SGOT) 29 Alanine Aminotransferase (ALT/SGPT) 37 Total Bilirubin 0.7 Sodium Level 147 Chloride Level 113 Carbon Dioxide Level 24.0 Anion Gap 10 Estimat Glomerular Filtration Rate 43 Phenytoin (Dilantin) Level 8.7 Date/Time Source Procedure Growth Status 11/02/17 04:23 Blood Peripheral Aerobic Blood Culture - Final NO GROWTH IN 5 DAYS Complete 11/02/17 04:23 Blood Peripheral Anaerobic Blood Culture - Final NO GROWTH IN 5 DAYS Complete 11/01/17 20:00 Stool Stool Stool Occult Blood (NANI) - Final HEMOCCULT NEGATIVE Complete 11/05/17 10:58 Sputum Endotracheal Gram Stain - Final Complete 11/05/17 10:58 Sputum Endotracheal Sputum Culture - Final NO GROWTH IN 48 HOURS. Complete 10/31/17 13:30 Urine Clean Catch Urine Culture - Final Escherichia Coli Complete Problem Qualifiers (1) Hypertension: Qualified Codes: I10 - Essential (primary) hypertension Jose Eduardo Snell MD November 11, 2017 11:02
--- NOTE | 2017-11-11 11:24 | HHI.FPPN ---
Subjective Remarks Mrs. Marroquin was afebrile (max T 100F) with HTN (to MAP 120) overnight; normal O2 saturation on 2-3L O2 via NC. 3400ml urine output. Patient accompanied by at bedside; he reports concern at her lack of improvement/poor mental status. She has had less stool output on antibiotics for Cdiff. (Oscar Santos MD R3) Objective Vitals Vital Signs Date Time Temp Pulse Resp B/P (MAP) Pulse Ox O2 Delivery O2 Flow Rate FiO2 11/11/17 10:00 86 11/11/17 08:50 99 Nasal Cannula 2.00 11/11/17 08:00 86 11/11/17 08:00 99.7 85 14 179/83 (115) 99 11/11/17 07:00 100 Nasal Cannula 3.00 11/11/17 06:00 83 11/11/17 04:00 82 11/11/17 04:00 99.7 82 14 139/67 (91) 99 11/11/17 02:00 81 11/11/17 00:00 83 11/11/17 00:00 99.8 83 25 154/69 (97) 99 11/10/17 22:00 83 11/10/17 20:00 88 11/10/17 20:00 100.0 88 15 186/88 (120) 100 11/10/17 20:00 100 Nasal Cannula 3.00 11/10/17 19:30 100 Nasal Cannula 4.00 11/10/17 18:00 76 11/10/17 16:00 86 11/10/17 16:00 99.4 86 19 163/78 100 11/10/17 14:00 81 11/10/17 13:23 80 165/79 11/10/17 12:00 82 11/10/17 12:00 99.9 82 19 140/69 (92) 96 I/O 11/10/17 11/10/17 11/10/17 11/11/17 11/11/17 11/11/17 07:00 15:00 23:00 07:00 15:00 23:00 Intake Total 450 ml 1350 ml 930 ml 930 ml Output Total 2050 ml 1600 ml 1800 ml Balance -1600 ml 1350 ml -670 ml -870 ml IV Total 1350 ml 450 ml 250 ml Tube Feeding 450 ml 480 ml 480 ml Other 200 ml Output Urine Total 1600 ml 1500 ml 1400 ml Stool Total 450 ml 100 ml 400 ml (Oscar Santos MD R3) Result Diagram: 11/11/17 0400 11/11/17 0400 Imaging Last Impressions Brain MRI 11/10/17 0000 Signed Impressions: Service Date/Time: Friday, November 10, 2017 14:00 - CONCLUSION: 1. Stable examination. Specifically, no acute infarction, hemorrhage or mass. 2. Senescent changes with periventricular white matter ischemic demyelination and focal lacunar type infarct in the right centrum semiovale. César Coats MD Chest X-Ray 11/08/17 0600 Signed Impressions: Service Date/Time: Wednesday, November 08, 2017 04:16 - CONCLUSION: Stable radiographic appearance most consistent with pulmonary edema. Antonio High Jr., MD Liver Ultrasound 11/07/17 0000 Signed Impressions: Service Date/Time: October 08:05 - CONCLUSION: 1. Heterogeneous liver suggestive of hepatocellular disease such as cirrhosis. There is a small amount of ascites surrounding the liver. This is not significantly changed compared to the recent CT scan of the abdomen. 2. Sludge in the gallbladder. No definite gallstones or biliary tract obstruction. 3. Mild splenomegaly. 4. Mild hydronephrosis of the right collecting system. Markie Crabtree MD Head CT 11/06/17 0000 Signed Impressions: Service Date/Time: Monday, November 06, 2017 10:03 - CONCLUSION: 1. No acute intracranial abnormality or significant interval change. César Coats MD Abdomen X-Ray 11/04/17 0000 Signed Impressions: Service Date/Time: Saturday, November 04, 2017 17:50 - CONCLUSION: Nonspecific intestinal gas pattern Jose Wright MD Abdomen/Pelvis CT 10/31/17 1321 Signed Impressions: Service Date/Time: October 13:58 - CONCLUSION: 1. Development of innumerable small sclerotic lesions in the skeleton most characteristic of sclerotic bony metastatic disease. There is a reported history of malignancy. 2. Hepatomegaly with development of mild ascites. 3. Persistent moderate hydronephrosis with perinephric stranding similar to February 2017. Interval development of mild anasarca. 4. Gallbladder sludge. Jacobsen catheter in bladder. Samuel Lin MD Lung Scan-VQ Nuclear Medicine 10/31/17 0000 Signed Impressions: Service Date/Time: October 15:00 - CONCLUSION: Low probability scan for pulmonary embolism Jose Wright MD Objective Remarks GENERAL: This is a well-nourished, well-developed patient Eyes: No pupil asymmetry appreciated Skin: No visible lesions CARDIOVASCULAR: Normal rate and rhythm. Normal distal LE perfusion bilaterally RESPIRATORY: Normal rate. No focal congestion or wheezing to auscultation GASTROINTESTINAL: Abdomen soft, distended. Normal bowel sounds. MUSCULOSKELETAL: No calf asymmetry or pain to palpation NEUROLOGICAL: Nonverbal. Patient would open eyes to command; she would not wiggle toes or squeeze fingers to command (Oscar Santos MD R3) A/P Assessment and Plan Patient is a 72-year-old admitted due to septic shock from urinary source; patient also with sclerotic bony lesions concerning for colon cancer metastasis. Due to respiratory decline/multiorgan failure, patient on ventilator since . Critical care, Nephrology, and infectious disease consulted. Patient extubated 11/05; has had altered mental status since extubation Discharge Planning Prognosis unclear at this time Critical Care managing at this time, appreciate care of patient Notably asserts patient is full code (Oscar Santos MD R3) Attending Attestation Patient seen and examined. Case reviewed and discussed with the resident team. Agree with plan of care as discussed with me and documented in the resident note. discussed with her (as much as could be done considering she barely opened her eyes) and especially her that it can take a few days to improve mentally after a blow like uremia and a high ammonia level. her problems are improving but her brain has had past insults such as her TIA so she may be a little slower to recover (Lydia Greenberg MD) Problem List: (1) Altered mental state ICD Codes: R41.82 - Altered mental status, unspecified Status: Acute Plan: Impression: Persistent lack of orientation after extubation 11/05. No focal deficits. History of TIA. On Heparin anticoagulation Imaging: CT head 10/31 on admission (ordered due to confusion on admission; suspected secondary to sepsis) w/o acute findings. Remote lacunar infarct in right frontal white matter Repeat head CT 11/06 without acute intracranial abnormality MRI brain 11/08- chronic changes with some periventricular small vessel ischemic demyelination and old lacunar infarct at junction of R coronal radiata and centrum semiovale MRI brain 11/10- stable exam EEG- moderate encephalopathy with triphasic waveforms; possible she could have nonconvulsive seizures Labs: Leukocytosis. Some hypocalcemia. Normal sodium. Ammonia 76 11/06 -> 39 (11/08) -> 33 11/10 LFT elevations- 11/02-11/08- (TBILI mild elevation, mild AST and ALT elevations normal ALKP); subsequently normal values ABG 11/07- pH 7.34, CO2 37, HCO3 20 -Continue management per Critical care; suspect multifactorial. off of sedation since extubation. Suspect possible hepatic encephalopathy as component -Neurology consulted-appreciate recs -Likely metabolic encephalopathy -Antibiotic therapy changed to Zosyn to avoid possible encephalopathy from Cefepime -Continue IV Celebrex -Hyperammonemia -Continue Lactulose TID -rifaximin 550mg BID added -Monitor ammonia -Supportive care; monitor labs -Tube feeds due to altered mental status -Will consult palliative care (2) Sepsis ICD Codes: A41.9 - Sepsis, unspecified organism Status: Resolved Plan: Impression: Septic shock on admission; labs suggestive of multiorgan dysfunction. Patient with low MAP despite 4 L IVF Patient placed on Phenylephrine. Patient developed respiratory failure and required intubation Labs: Cr: 2.10 (10/31)-> 3.53 (11/04) -> 2.84 (11/05) -> 2.29-> 1.81 (11/07) -> 1.48 (11/08 ) -> 1.24 (11/11) WBC: 15.8 (10/31)-> 2.1 (11/02)-> 20.3 (11/03) -> 17.7 (11/04) -> 22.2 (11/06) -> 25 (11/07) -> 21.9 (11/08) -> 17.7 (11/11) Lactic acid: 3 (10/31) -> 3.3 (11/02) -Critical care consulted -Continue antibiotic therapy -Infectious disease consulted -Continue Zosyn 11/10 -Continue Vancomycin 125mg PO q 6hrs 11/10 -Nephrology consulted -Continue to monitor CBC, BMP, urine output -Continue to monitor VS; pressors discontinued and intermittent HTN Antibiotic history: s/p Meropenem 2gm q12hrs IV -s/p Zosyn 2.5mg q6hrs (10/31-11/02) -s/p Tobramycin IV x1 11/02 -s/p Rocephin 11/03-11/06 -s/p Cefepime 2gm IV BID -s/p Levofloxacin 11/10 Cultures: 11/05 -Sputum culture negative x48hrs 10/31- blood x2 taylor sensitive E Coli 10/31- urine- taylor sensitive E coli 11/02- blood x2- negative x5 days (3) ASH (acute kidney injury) ICD Codes: N17.9 - Acute kidney failure, unspecified Status: Acute Plan: 11/11: Cr 1.24 (improved from 1.34 11/10). Urine output 3400ml overnight Impression: renal injury presumed secondary to septic shock/multiorgan dysfunction Cr- 2.12 on admission-> 2.59 (11/02) -> 3.53 (11/04) -> downtending CT abdomen/pelvis- moderate hydronephrosis w/ perinephric stranding similar to . Interval development of mild anasarca. -Continue to monitor urine output w/ jacobsen -Nephrology consulted -Continue IVF (D5@ 100mls/hr), antibiotics -Continue to monitor urine output/BMP -Ca replacement -Urology consulted for hydronephrosis -Continue Jacobsen, antibiotics -Do not suspect obstruction; do not recommend stent placement -Recommend renal US next week (4) Elevated LFTs ICD Codes: R79.89 - Other specified abnormal findings of blood chemistry Status: Resolved Plan: Impression: Patient with normal LFT's on admission-> mild transaminase elevations: (11/02- TBILI 1.7, AST 122, ALT 62, ALKP 54 -> 11/07- TBILI 1.4, AST 77, ALT 122, ALKP65) Suspect likely related to sepsis/organ injury -Continue to monitor LFT's -Liver US per CC- heterogenous liver suggestive of hepatocellular disease such as cirrhosis. Small ascites; not recently changed since last CT. Sludge in gallbladder; no definite gallstones. Mild splenomegaly. Mild hydronephrosis -Ceftriaxone stopped per ID (5) Respiratory failure, acute ICD Codes: J96.00 - Acute respiratory failure, unspecified whether with hypoxia or hypercapnia Status: Resolved Plan: Impression: Patient intubated 11/02 for tachypnea and respiratory distress ; ABG 11/02 with pH 7.18, CO2 52. 11/03- failed CPAP trials. CXR with persistent hazy opacities at bases 11/04- Remains on ventilator, sedated. 11/05- Extubated 11/06- stable respirations while extubated 11/07- O2 sats >95% on 3 L O2 via NC ABG- pH 7.34, CO2 37, HCO3 20 11/08- Stable O2 sats>95% on 4 L O2; intermittent tachypnea. CXR 11/08 suggestive of pulmonary edema -Continue management per Critical care -Duonebs q6hrs as needed -Stopped Hydrocortisone 100mg IV q8hrs 11/06 (6) UTI (urinary tract infection) ICD Codes: N39.0 - Urinary tract infection, site not specified Status: Resolved Plan: Impression: UA with large leukocyte esterase, innumerable WBCs, many WBC clumps Urine culture and blood cultures 10/31 with pansensitive E Coli -Management as above for sepsis (7) Hypertension ICD Codes: I10 - Essential (primary) hypertension Status: Chronic Plan: 11/07- persistent HTN Impression: PMH HTN. Initial hypotension on admission w/ septic shock. Now intermittent hypertension based on agitation/sedation -Continue to monitor; management per CC -Start Metoprolol 25mg q8 hrs -Hydralazine 20mg IV q4hrs PRN -Clonidine 0.2mg PRN -Labetalol 10mg IV q4hrs PRN (8) Atrial fibrillation ICD Codes: I48.91 - Unspecified atrial fibrillation Status: Chronic Plan: Impression: patient placed on amiodarone drip and given digoxin for afib with RVR on admission. Patient currently with normal rate/sinus rhythm. Patient with reported history of moderate mitral stenosis and mild/moderate aortic stenosis Echocardiogram- moderate concentric LVF. EF 70%. Aortic sclerosis present. Moderate /severe pulmonary HTN (60-70mmHg) Initially placed on heparin drip-> PO Amiodarone; currently on hold with sinus rhythm -Continue telemetry/monitoring VS -Continue IV heparin; plan to transition to Xarelto once normal renal function -Continue amiodarone as needed. 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 [id number]. s/p Zeloda 08/2016. Abdomen/Pelvis CT 10/31/17: Innumerable small sclerotic lesions in the skeleton, most characteristic of sclerotic bony metastatic disease -Dr. Candelario consulted -recent bone scan w/o uptake; reassuring regarding sclerotic lesions -plan for PET as outpatient -Continue heparin, treatment for sepsis (10) Weakness ICD Codes: R53.1 - Weakness Status: Acute Plan: -PT consulted; will evaluate once improving (11) Clostridium difficile infection ICD Codes: B96.89 - Other specified bacterial agents as the cause of diseases classified elsewhere Status: Acute Plan: Impression: Diarrhea; C diff toxin PCR + -Continue oral vancomycin 125mg q6hrs PO (12) Diabetes mellitus, type II ICD Codes: E11.9 - Type 2 diabetes mellitus Status: Chronic Plan: Will hold home medications -Low dose SSI, per Critical Care protocol -Continue to monitor blood sugar -Will change tube feeds to Glucerna (13) Hypothyroidism ICD Codes: E03.9 - Hypothyroidism Status: Chronic Plan: Continue home Levothyroxine (14) FEN/PPX Plan: Fluid: Fluid per it architect -50ml/hr NS -Albumin 25% q12 hrs Electrolytes: Continue to monitor; replacement per protocol Nutrition: Tube feeds; will change from Jevity to Glucerna DVT PPX: Per CC, on heparin gtt at this time (Oscar Santos MD R3) Problem Qualifiers (1) Sepsis: Qualified Codes: A41.9 - Sepsis, unspecified organism (2) UTI (urinary tract infection): (3) Hypertension: Qualified Codes: I10 - Essential (primary) hypertension (4) Atrial fibrillation: Qualified Codes: I48.2 - Chronic atrial fibrillation (5) Diabetes mellitus, type II: Qualified Codes: E11.8 - Type 2 diabetes mellitus with unspecified complications (6) Hypothyroidism: Qualified Codes: E03.9 - Hypothyroidism, unspecified Oscar Santos MD R3 November 11, 2017 11:24 Lydia Greenberg MD November 12, 2017 12:06
[2017-11-11] MEDS: SODIUM CHLORIDE 23.4% INJ 38.5 MEQ in WATER STERILE FOR INJ 1,000 ML IV SCH (11:34)
--- NOTE | 2017-11-11 13:35 | HHI.IDPN ---
Subjective Subjective Remarks Ms. Marroquin is a 72-year-old female with past medical history significant for colon cancer with reported history of spots on her vertebrae. Patient's spouse reports that she was scheduled to have a PET scan but could not complete it as she was extremely weak. Dr. Vargas is her oncologist and is following her. Her past medical history is also significant for hypertension hyperlipidemia, atrial fibrillation status post previous ablation, type 2 diabetes. With this background patient presents to the emergency department with generalized weakness as well as hypotensive upon arrival. She was diagnosed with possible UTI sepsis. She received 4 L of IV fluids in the emergency room and her blood pressure improved to 690s systolic. But she continued to be in atrial fibrillation with heart rate in 130s. She had a negligible urine output despite 4 L IV fluids and elevated lactic acid remains a concern. Sepsis workup was initiated and patient was started on empiric IV antibiotics for presumed UTI related sepsis. Per review of records it appears that patient reportedly did not eat or drink for 30 hours prior to admission and was having burning with urination approximately 2 days prior to admission. CT of the head was done which was unremarkable a CT of the abdomen pelvis showed moderate hydronephrosis as well as several spots as mentioned in the report concerning for malignancy related metastases. Oncology Dr. Vargas is following the patient. A VQ scan was done which showed low probability of PE. Blood cultures done on admission are positive for E. coli as well as her urine culture was also positive for E. coli. Patient has been treated with ceftriaxone and has been clinically improved. Repeat blood cultures are negative so far. Urology has seen the patient and there is no plan for placement of stent. This appears to be hydronephrosis with stranding around the kidney suggestive of pyelonephritis. Infectious diseases consulted for evaluation and management of sepsis, E. coli bacteremia and E. coli pyelonephritis. Overnight events reviewed Delayed entry. Patient seen earlier in am. no rash diarrhea Cdiff positive. Mentation is worse, she is obtunded. CT head negative. EEG metabolic encephalopathy. repeat EEG planned today. Antibiotics Zosyn IV Lines Port site ok Past Medical History reviewed Allergies: Coded Allergies: Sulfa (Sulfonamide Antibiotics) (Verified Allergy, Severe, 10/31/17) codeine (Verified Allergy, Severe, Nausea/Vomiting, 10/31/17) Uncoded Allergies: METAL (Allergy, Intermediate, hives, 03/08/16) SURGICAL STEEL (Allergy, Intermediate, hives, 03/08/16) Objective . Vital Signs Date Time Temp Pulse Resp B/P (MAP) Pulse Ox O2 Delivery O2 Flow Rate FiO2 11/11/17 12:00 99.8 83 14 136/62 (86) 99 11/11/17 12:00 86 11/11/17 10:00 86 11/11/17 08:50 99 Nasal Cannula 2.00 11/11/17 08:00 86 11/11/17 08:00 99.7 85 14 179/83 (115) 99 11/11/17 07:00 100 Nasal Cannula 3.00 11/11/17 06:00 83 11/11/17 04:00 82 11/11/17 04:00 99.7 82 14 139/67 (91) 99 11/11/17 02:00 81 11/11/17 00:00 83 11/11/17 00:00 99.8 83 25 154/69 (97) 99 11/10/17 22:00 83 11/10/17 20:00 88 11/10/17 20:00 100.0 88 15 186/88 (120) 100 11/10/17 20:00 100 Nasal Cannula 3.00 11/10/17 19:30 100 Nasal Cannula 4.00 11/10/17 18:00 76 11/10/17 16:00 86 11/10/17 16:00 99.4 86 19 163/78 100 11/10/17 14:00 81 . Laboratory Tests Test 11/10/17 04:15 11/11/17 04:00 White Blood Count 19.0 TH/MM3 17.7 TH/MM3 Red Blood Count 3.58 MIL/MM3 3.51 MIL/MM3 Hemoglobin 9.4 GM/DL 9.1 GM/DL Hematocrit 29.6 % 29.3 % Mean Corpuscular Volume 82.8 FL 83.3 FL Mean Corpuscular Hemoglobin 26.4 PG 26.0 PG Mean Corpuscular Hemoglobin Concent 31.8 % 31.3 % Red Cell Distribution Width 18.5 % 18.9 % Platelet Count 166 TH/MM3 154 TH/MM3 Mean Platelet Volume 9.2 FL 9.2 FL Neutrophils (%) (Auto) 89.0 % 88.8 % Lymphocytes (%) (Auto) 6.3 % 5.9 % Monocytes (%) (Auto) 4.2 % 4.4 % Eosinophils (%) (Auto) 0.4 % 0.8 % Basophils (%) (Auto) 0.1 % 0.1 % Neutrophils # (Auto) 16.9 TH/MM3 15.7 TH/MM3 Lymphocytes # (Auto) 1.2 TH/MM3 1.0 TH/MM3 Monocytes # (Auto) 0.8 TH/MM3 0.8 TH/MM3 Eosinophils # (Auto) 0.1 TH/MM3 0.1 TH/MM3 Basophils # (Auto) 0.0 TH/MM3 0.0 TH/MM3 CBC Comment AUTO DIFF DIFF FINAL Differential Total Cells Counted 100 Neutrophils % (Manual) 82 % Band Neutrophils % 2 % Lymphocytes % 4 % Monocytes % 4 % Eosinophils % 1 % Neutrophils # (Manual) 17.3 TH/MM3 Metamyelocytes 2 % Myelocytes 4 % Promyelocytes 1 % Differential Comment FINAL DIFF MANUAL Platelet Estimate NORMAL Platelet Morphology Comment NORMAL Polychromasia 2.4 % Basophilic Stippling MOD Laboratory Tests Test 11/10/17 04:15 11/10/17 14:51 11/11/17 04:00 Blood Urea Nitrogen 27 MG/DL 22 MG/DL Creatinine 1.34 MG/DL 1.24 MG/DL Random Glucose 341 MG/DL 266 MG/DL Total Protein 7.1 GM/DL 6.5 GM/DL Albumin 2.9 GM/DL 2.6 GM/DL Calcium Level 7.7 MG/DL 7.7 MG/DL Phosphorus Level 2.6 MG/DL 2.2 MG/DL Magnesium Level 1.6 MG/DL 1.6 MG/DL Alkaline Phosphatase 103 U/L 117 U/L Aspartate Amino Transf (AST/SGOT) 23 U/L 29 U/L Alanine Aminotransferase (ALT/SGPT) 43 U/L 37 U/L Total Bilirubin 0.9 MG/DL 0.7 MG/DL Sodium Level 148 MEQ/L 147 MEQ/L Potassium Level 3.1 MEQ/L 3.5 MEQ/L 3.1 MEQ/L Chloride Level 114 MEQ/L 113 MEQ/L Carbon Dioxide Level 24.0 MEQ/L 24.0 MEQ/L Anion Gap 10 MEQ/L 10 MEQ/L Estimat Glomerular Filtration Rate 39 ML/MIN 43 ML/MIN Ammonia 33 MCMOL/L Imaging Last Impressions Chest X-Ray 11/08/17 0600 Signed Impressions: Service Date/Time: Wednesday, November 08, 2017 04:16 - CONCLUSION: Stable radiographic appearance most consistent with pulmonary edema. Antonio High Jr., MD Brain MRI 11/08/17 0000 Signed Impressions: Service Date/Time: Wednesday, November 08, 2017 14:49 - CONCLUSION: 1. 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 2. Nothing acute. Jj Alvarez MD Liver Ultrasound 11/07/17 0000 Signed Impressions: Service Date/Time: October 08:05 - CONCLUSION: 1. Heterogeneous liver suggestive of hepatocellular disease such as cirrhosis. There is a small amount of ascites surrounding the liver. This is not significantly changed compared to the recent CT scan of the abdomen. 2. Sludge in the gallbladder. No definite gallstones or biliary tract obstruction. 3. Mild splenomegaly. 4. Mild hydronephrosis of the right collecting system. Markie Crabtree MD Head CT 11/06/17 0000 Signed Impressions: Service Date/Time: Monday, November 06, 2017 10:03 - CONCLUSION: 1. No acute intracranial abnormality or significant interval change. César Coats MD Abdomen X-Ray 11/04/17 0000 Signed Impressions: Service Date/Time: Saturday, November 04, 2017 17:50 - CONCLUSION: Nonspecific intestinal gas pattern Jose Wright MD Abdomen/Pelvis CT 10/31/17 1321 Signed Impressions: Service Date/Time: October 13:58 - CONCLUSION: 1. Development of innumerable small sclerotic lesions in the skeleton most characteristic of sclerotic bony metastatic disease. There is a reported history of malignancy. 2. Hepatomegaly with development of mild ascites. 3. Persistent moderate hydronephrosis with perinephric stranding similar to February 2017. Interval development of mild anasarca. 4. Gallbladder sludge. Gallo catheter in bladder. Samuel Lin MD Lung Scan-V Nuclear Medicine 10/31/17 0000 Signed Impressions: Service Date/Time: October 15:00 - CONCLUSION: Low probability scan for pulmonary embolism Jose Wright MD Physical Exam GENERAL: Obese, well-developed patient, in no apparent distress. SKIN: Areas of Ecchymosis. HEAD: Atraumatic. Normocephalic. No temporal or scalp tenderness. EYES: Pupils equal round and reactive. Extraocular motions intact. No scleral icterus. No injection or drainage. ENT: NAD NECK: Trachea midline. Supple, nontender, no meningeal signs. CARDIOVASCULAR: HS audible. No murmur. RESPIRATORY: Clear to auscultation. Breath sounds decreased in the bases. GASTROINTESTINAL: Abdomen soft, mildly distended. Non tender. Incontinent of liquid dark stool MUSCULOSKELETAL: Extremities without clubbing, cyanosis, or edema. No joint tenderness, effusion, or edema noted. NEUR: essentially unresponsive and only moves spontaneously her RUE eyes closed not following commands Psych could not be assessed Port site with no e.o infection. Assessment & Plan Remarks Severe sepsis present on admission E. coli pyelonephritis with hydronephrosis with no evidence of obstruction per urology notes. He did urinary tract infection. No plans for stent placement. E. coli bacteremia appears to be transient and related to the E. coli pyelonephritis. Possible aspiration pneumonia on admission Acute metabolic encephalopathy likely secondary to sepsis, acute renal failure, cirrhosis (hepatic) - Dr Murillo concerned of cefepime causing the encephalopathy, abx switched to levaquine Acute renal failure on admission: prerenal, sepsis. Abnormal LFTs: sepsis, meds, cirrhosis. Leucocytosis Colon cancer with suspected mets. Abx associated diarrhea: r/o c.diff Recs: Continue Zosyn IV Continue Oral Vanco for Cdiff. DC Flagyl IV as can worsen encephalopathy. guillermo spouse clinical findings and plan. guillermo Dumont to cover for ia 11/12/2017 to 11/14/2017. Brittani Srinivasan MD November 11, 2017 13:35
[2017-11-11] MEDS: HEPARIN-D5W 25,000 U/250 ML 250 ML IV PRN (14:35)
[2017-11-11 16:10] LABS: ANA PATTERN SPECKLED
--- NOTE | 2017-11-11 17:01 | PD.CONS ---
Consult Service Palliative Care Consult Requested By Dr. Santos Primary Care Physician Unknown Reason for Consultation a. To assist with evaluation and management of symptoms including: Encephalopathy, dyspnea b. To assist medical decision maker(s) with: better understanding of current medical conditions; weighing benefits/burdens of medical treatment options; making medical treatment decisions. HPI History of Present Illness This is a 72-year-old female with a past medical history of diabetes mellitus, hyperlipidemia, atrial fibrillation with rapid ventricular response status post ablation, pulmonary embolus, hypertension, anemia and colon cancer status post resection who presented via e emergency medical services on 10/31 for evaluation of profound weakness and left-sided back pain. [place] of the country intermittently and had been in [place] for 2 weeks while the had been caring for herself at home, with support from her son who lives nearby. She has had significant complaints of weakness for quite some time and recently had had episodes of slumping to the ground due to her profound weakness. She had been seen by Dr. Candelario for follow-up and he had recommended a PET scan. Her had taken her to the PET scan but was unable to complete it due to her severe weakness. Her noted some confusion which had not previously been evident. At home, she became too weak to get out of bed but had not eaten or drank anything for approximately 30 hours prior to admission. She has had recurrent admissions for sepsis and was found to be febrile upon EMS admission. ED course: * Laboratory: WBC 15.8, hemoglobin, 11.5 hematocrit 35.6, platelets 165, sodium 134, potassium 3.7, BUN 34, creatinine 2.12, random glucose 183, a AST 19, ALT 17, alkaline phosphatase 92, total bilirubin 0.5, lactic acid 3.0, urinalysis showed a light red cloudy specimen with large occult blood, large leukocyte esterase, rare bacteria with an indication for culture. She was positive for sepsis upon admission due to heart rate over 90, WBC greater than 12,000. * Radiology: VQ scan showed low probability for pulmonary embolism. Chest x- ray shows enlarged cardiac silhouette with no other acute disease. Head CT showed no acute intracranial findings with left sphenoid sinusitis and remote lacunar infarct in the right frontal white matter. CT of the abdomen and pelvis showed development of innumerable small sclerotic lesions in the skeleton , most characteristic of sclerotic bony metastatic disease. Hepatomegaly with development of mild ascites, persistent moderate hydronephrosis with perinephric stranding similar to February 2017 and interval development of mild anasarca with gallbladder sludge and Gallo catheter in bladder. Consultations were requested from Dr. Sly Candelario who follows her after her history of colon cancer, nephrology, urology and critical care medicine. 2D echocardiogram was requested showing an ejection fraction in the range of 65-70 % with a mildly dilated left atrium, moderate tricuspid regurgitation and moderate to severe pulmonary hypertension in the range of 67.2 mmHg. She continued to decline after admission becoming more tachypneic with marginal urine output requiring vasopressor support. On 11/02 and she required intubation overnight for tachypnea and respiratory distress. She was subsequently extubated 11/05 and remains off the vent at this evaluation, however fragile from a respiratory standpoint. Microbiology showed E. coli in the blood culture and urine culture and infectious disease was consulted for antibiotic management. During her hospitalization she developed diarrhea thought to be associated with antibiotics and ruled in for C. difficile. She remains on treatment with Zosyn and oral vancomycin. Flagyl was discontinued due to its possible effect of worsening encephalopathy. At this evaluation she is opening her eyes and beginning to focus. She is nonverbal at this time. Her is at bedside from whom most of the history was obtained. . Function/Cognitive Trajectory She was diagnosed with colon cancer in February of 2016 and final pathology showed poorly differentiated adenocarcinoma with mucinous features measuring 5.5 cm arising in the villous adenoma with a large tumor deposit 6 cm in size within the pericolonic soft tissue. Metastatic adenocarcinoma involving 11 out of 12 lymph nodes with pathological stage T2 N2 B M0 for which she was treated with adjuvant Xeloda in September 2016. Since that time she has continued to weaken and have intermittent episodes of confusion and recurrent sepsis. Her was out of work for 2 years taking care of her and only recently had he been able to return to work as she had regained the strength to be able to take care of herself with her son's assistance. Most recently she was unable to complete a PET scan due to weakness, requires a wheelchair for any type of distance ambulation and was unable to get out of bed on this most recent admission. Her states she can walk about 50 feet before requiring a rest. She was previously treated at [facility] in March 2017. . Review of Systems ROS Limitations: Clinical Condition, Altered Mental Status Constitutional: COMPLAINS OF: Fatigue, Generalized weakness Endocrine: DENIES: Abnorml menstrual pattern, Heat/cold intolerance, Polydipsia , Polyuria, Polyphagia Eyes: COMPLAINS OF: Blurred vision Ears, nose, mouth, throat: DENIES: Tinnitus, Hearing loss, Vertigo, Nasal discharge, Oral lesions, Throat pain, Hoarseness, Ear Pain, Running Nose, Epistaxis, Sinus Pain, Toothache, Odynophagia Respiratory: COMPLAINS OF: Shortness of breath Cardiovascular: COMPLAINS OF: Dyspnea on Exertion Gastrointestinal: COMPLAINS OF: Bloating Genitourinary: DENIES: Abnormal vaginal bleeding, Dysmenorrhea, Dyspareunia, Sexual dysfunction, Urinary frequency, Urinary incontinence, Urgency, Hematuria , Dysuria, Nocturia, Vaginal discharge, Hesitancy, Dribbling, Decreased stream Musculoskeletal: DENIES: Joint pain, Muscle aches, Stiffness, Joint Swelling, Back pain, Neck pain, Decreased range of motion Integumentary: DENIES: Abnormal pigmentation, Pruritus, Rash, Nail changes, Breast masses, Breast skin changes, Nipple discharge, Nodules, Tumors, Excessive dryness, Non-healing sores Hematologic/Lymphatics: DENIES: Bruising, Lymphadenopathy, Prolonged bleed w/ proced, History of transfusions Immunologic/Allergic: DENIES: Eczema, Urticaria Neurologic: COMPLAINS OF: Poor Balance Psychiatric: COMPLAINS OF: Confusion Past Family Social History Coded Allergies: Sulfa (Sulfonamide Antibiotics) (Verified Allergy, Severe, 10/31/17) codeine (Verified Allergy, Severe, Nausea/Vomiting, 10/31/17) Uncoded Allergies: METAL (Allergy, Intermediate, hives, 03/08/16) SURGICAL STEEL (Allergy, Intermediate, hives, 03/08/16) Past Medical History Sigmoid colon adenocarcinoma stage [id number] M0 Previous GI bleed Atrial fibrillation status post ablation L3 compression fracture Depression Diabetes Hypertension Hyperlipidemia Hypothyroidism TIA 2 Recurrent sepsis . Past Surgical History Atrial fibrillation ablation Exploratory laparotomy Appendectomy Upper endoscopy Colonoscopy Hernia repair Colon resection . Reported Medications Reported Meds & Active Scripts Active Temazepam 15 Mg Cap 15 Mg PO HS PRN Lasix (Furosemide) 20 Mg Tab 20 Mg PO DAILY Hydroxyzine HCl 25 Mg Tab 25 Mg PO QID PRN Pravachol (Pravastatin) 40 Mg Tab 40 Mg PO DAILY 30 Days Xarelto (Rivaroxaban) 20 Mg Tab 20 Mg PO DAILY Gabapentin 100 Mg Cap 100 Mg PO HS 30 Days Amiodarone (Amiodarone HCl) 200 Mg Tab 200 Mg PO DAILY 30 Days Fluoxetine (Fluoxetine HCl) 20 Mg Capsule 20 Mg PO DAILY 30 Days Adult Aspirin EC Low Strength (Aspirin) 81 Mg Tabec 162 Mg PO DAILY 30 Days Cardizem CD 24 HR (Diltiazem CD 24 HR) 240 Mg Caper 240 Mg PO DAILY 30 Days Levothyroxine (Levothyroxine Sodium) 50 Mcg Tab 50 Mcg PO DAILY 30 Days Wheelchair (Device) 1 Mis Mis Ea .ROUTE DIRECTED Commode 3-in-1 (Device) 1 Mis Mis Ea .ROUTE DIRECTED Walker Rolling/GetGo (Device) 1 Mis Mis Ea .ROUTE DIRECTED Reported [Novalog] Ditropan (Oxybutynin Chloride) 5 Mg Tab 5 Mg PO Q8HR Venlafaxine ER 24 HR (Venlafaxine HCl) 75 Mg Cap 75 Mg PO DAILY Metformin HCl ER (Metformin HCl) 1,000 Mg [id number] Lantus Inj (Insulin Glargine) 1,000 Unit/10 Ml Vial 10 Units SQ HS Captopril 12.5 Mg Tab 12.5 Mg PO BIDAC Take 1 hour before meals. Bumetanide 1 Mg Tab 1 Mg PO DAILY Current Medications Medications (Trade) Dose Ordered Sig/Chiqui Route Start Time Stop Time Status Last Admin (Cordarone) 200 mg DAILY PO 11/01/17 09:00 Future hold 11/11/17 08:34 (PROzac) 20 mg DAILY PO 11/01/17 09:00 11/11/17 08:34 (Synthroid) 50 mcg DAILY@0600 PO 11/01/17 06:00 11/11/17 05:07 (Pravachol) 40 mg DAILY PO 11/01/17 09:00 Future Hold 11/08/17 08:36 (Xarelto) 20 mg DAILY PO 11/01/17 09:00 Future Hold (Effexor Xr) 75 mg DAILY PO 11/01/17 09:00 11/11/17 09:00 (NS Flush) 2 ml UNSCH PRN IV FLUSH 10/31/17 15:30 (NS Flush) 2 ml BID IV FLUSH 10/31/17 21:00 11/11/17 08:32 (Tylenol) 650 mg Q4H PRN PO 10/31/17 15:30 11/01/17 19:50 (Narcan Inj) 0.4 mg UNSCH PRN IV PUSH 10/31/17 15:30 (Elsa-Colace) 1 tab BID PO 10/31/17 21:00 11/11/17 08:34 (Milk Of Magnesia Liq) 30 ml Q12H PRN PO 10/31/17 15:30 (Senokot) 17.2 mg Q12H PRN PO 10/31/17 15:30 11/04/17 08:19 (Dulcolax Supp) 10 mg DAILY PRN RECTAL 10/31/17 15:30 (Glucagon Inj) 1 mg UNSCH PRN OTHER 10/31/17 15:30 (Zofran Odt) 4 mg Q6H PRN PO 10/31/17 15:30 11/07/17 20:48 Acetaminophen 100 ml @ 400 mls/hr Q6H PRN IV 10/31/17 17:15 11/10/17 20:40 ([facility] Nursing Information) Patient in critical care unit? Ass... [id number] .XX 10/31/17 23:15 10/31/17 23:15 (Brethine Inj) 1 mg UNSCH PRN SQ 10/31/17 23:30 Heparin Sodium/ Dextrose 250 ml @ 10 mls/hr TITRATE PRN IV 11/01/17 09:00 11/11/17 14:35 Albumin Human 50 ml @ 60 mls/hr Q12H IV 11/01/17 09:00 11/11/17 08:33 (Alexis 5-325 Mg) 1 tab Q4H PRN PO 11/01/17 13:15 11/11/17 08:35 (Pyridium) 100 mg Q8H PRN PO 11/01/17 13:45 (Restoril) 15 mg HS PRN PO 11/01/17 22:00 11/01/17 22:43 (Peridex 0.12% Liq) 15 ml BID@08,20 MT 11/02/17 08:00 11/11/17 08:00 (Trandate Inj) 10 mg Q4H PRN IV PUSH 11/05/17 10:45 11/11/17 05:09 (Apresoline Inj) 20 mg Q4H PRN IV PUSH 11/06/17 07:30 11/09/17 05:18 Potassium Chloride 100 ml @ 50 mls/hr Q2H PRN IV 11/07/17 07:45 11/10/17 07:47 Potassium Chloride 100 ml @ 50 mls/hr Q2H PRN IV 11/07/17 07:45 11/09/17 07:25 (K-Lyte Cl Eff) 50 meq UNSCH PRN PO 11/07/17 07:45 11/08/17 17:55 Potassium Chloride 100 ml @ 25 mls/hr UNSCH PRN IV 11/07/17 07:45 11/08/17 08:35 Potassium Chloride 100 ml @ 50 mls/hr Q2H PRN IV 11/07/17 07:45 Magnesium Sulfate 4 gm/Sodium Chloride 100 ml @ 50 mls/hr UNSCH PRN IV 11/07/17 07:45 (Mag-Ox) 800 mg UNSCH PRN PO 11/07/17 07:45 Magnesium Sulfate 2 gm/Sodium Chloride 100 ml @ 50 mls/hr UNSCH PRN IV 11/07/17 07:45 (K-Phos) 2,000 mg Q4H PRN PO 11/07/17 07:45 Sodium Phosphate 30 mmol/Sodium Chloride 250 ml @ 42 mls/hr UNSCH PRN IV 11/07/17 07:45 (K-Phos) 2,000 mg UNSCH PRN PO/TUBE 11/07/17 07:45 Potassium Phosphate 30 mmol/ Sodium Chloride 260 ml @ 42 mls/hr UNSCH PRN IV 11/07/17 07:45 (Lopressor) 25 mg Q8HR PO 11/07/17 07:45 11/11/17 14:32 (Xifaxan) 550 mg BID PO 11/07/17 21:00 11/11/17 08:34 (Duoneb Neb) 1 ampule Q6HR NEB NEB 11/09/17 10:30 11/11/17 08:50 (Cerebyx Inj) 200 mgpe Q12H IV 11/10/17 02:00 11/11/17 13:16 Piperacillin Sod/ Tazobactam Sod 50 ml @ 100 mls/hr Q6H IV 11/10/17 15:00 11/11/17 14:32 (Lactulose Liq) 30 ml Q6H PO 11/10/17 21:00 11/11/17 14:32 Sodium Chloride 38.5 meq/Sterile Water 1,009.625 ml @ 60 mls/hr [id number] IV 11/10/17 18:15 11/11/17 11:34 (Provigil) 200 mg DAILY PO 11/11/17 09:00 11/11/17 09:00 (D50w (Vial) Inj) 25 ml UNSCH PRN IV PUSH 11/10/17 18:15 (NovoLIN R SUPPLEMENTAL SCALE) 1 Q4HR SQ 11/10/17 20:00 11/11/17 12:00 (Levemir Inj) 10 units HS SQ 11/10/17 21:00 11/10/17 20:42 (VANCOMYCIN for oral use only) 125 mg Q6H PO 11/10/17 22:00 11/11/17 14:33 Family History Mother is alive in her 90s with mild dementia and a history of breast cancer, she has 2 sons who are healthy. . Substance Use Tobacco: Smoked briefly many years ago. Alcohol: Rare use. Prescription med abuse: No history. Illicits: No history. . 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 She was very active in community affairs up until her diagnosis of colon cancer. She has been to her for over 40 years. . Spiritual/Cultural Factors She is of the Mandaeism kamala. . Living Will: Never completed Health Care Surrogate: Never completed Durable Power of Oral Communication Instructor: Never completed Date completed: Not completed. . Health Care Surrogate(s): None named. . Documented care wishes: No living will available. . Today's verbally stated goals: Patient is encephalopathic and unable to elucidate her wishes. . Family/friends goals: Family goals are aggressive at this time. . Ethical and Legal Issues None unnoted. . Physical Exam Vital Signs Date Time Temp Pulse Resp B/P (MAP) Pulse Ox O2 Delivery O2 Flow Rate FiO2 11/11/17 14:00 86 11/11/17 12:00 99.8 83 14 136/62 (86) 99 11/11/17 12:00 86 11/11/17 10:00 86 11/11/17 08:50 99 Nasal Cannula 2.00 11/11/17 08:00 86 11/11/17 08:00 99.7 85 14 179/83 (115) 99 11/11/17 07:00 100 Nasal Cannula 3.00 11/11/17 06:00 83 11/11/17 04:00 82 11/11/17 04:00 99.7 82 14 139/67 (91) 99 11/11/17 02:00 81 11/11/17 00:00 83 11/11/17 00:00 99.8 83 25 154/69 (97) 99 11/10/17 22:00 83 11/10/17 20:00 88 11/10/17 20:00 100.0 88 15 186/88 (120) 100 11/10/17 20:00 100 Nasal Cannula 3.00 11/10/17 19:30 100 Nasal Cannula 4.00 11/10/17 18:00 76 11/10/17 16:00 86 11/10/17 16:00 99.4 86 19 163/78 100 Exam CONSTITUTIONAL/GENERAL: This is an adequately nourished patient, in no apparent distress. TUBES/LINES/DRAINS: Right subclavian port, bilateral PIV's, Galol, rectal drain. SKIN: No jaundice, rashes, or lesions. Ecchymoses on upper extremities. No wounds seen anteriorly. Skin temperature appropriate. Not diaphoretic. HEAD: Atraumatic. Normocephalic. EYES: Pupils equal and round and reactive. Extraocular motions intact. No scleral icterus. No injection or drainage. Fundi not examined. ENT: . Nose without bleeding or purulent drainage. Throat without visible erythema, exudates, masses, or lesions. NECK: Trachea midline. Supple, nontender. No palpable thyroid enlargement or nodularity. CARDIOVASCULAR: S1, S2, irregular rhythm, controlled rate, 2/6 systolic ejection murmur, no rub no gallop. RESPIRATORY/CHEST: Coarse breath sounds with bibasilar crackles, no rhonchi or wheezes auscultated. GASTROINTESTINAL: Abdomen mildly distended, limited exam due to distention and mild tenderness. (NVPS, patient grimaces with palpation) GENITOURINARY: Without palpable bladder distension. Gallo catheter in place. MUSCULOSKELETAL: Extremities without clubbing or cyanosis. 2+ dependent edema. No mottling or clubbing. LYMPHATICS: No palpable cervical or supraclavicular adenopathy. NEUROLOGICAL: Awake, opens eyes, intermittently focuses, some tracking noted, nonverbal at this time. PSYCHIATRIC: Unable to assess due to nonverbal status. No obvious agitation. . Diagnostic Tests Laboratory Laboratory Tests Test 11/09/17 04:00 11/09/17 09:57 11/09/17 11:16 11/09/17 20:15 White Blood Count 20.6 TH/MM3 (4.0-11.0) Red Blood Count 3.74 MIL/MM3 (4.00-5.30) Hemoglobin 9.6 GM/DL (11.6-15.3) Hematocrit 30.1 % (35.0-46.0) Mean Corpuscular Volume 80.6 FL (80.0-100.0) Mean Corpuscular Hemoglobin 25.7 PG (27.0-34.0) Mean Corpuscular Hemoglobin Concent 31.8 % (32.0-36.0) Red Cell Distribution Width 18.1 % (11.6-17.2) Platelet Count 200 TH/MM3 (150-450) Mean Platelet Volume 8.7 FL (7.0-11.0) Neutrophils (%) (Auto) 88.6 % (16.0-70.0) Lymphocytes (%) (Auto) 6.6 % (9.0-44.0) Monocytes (%) (Auto) 4.5 % (0.0-8.0) Eosinophils (%) (Auto) 0.1 % (0.0-4.0) Basophils (%) (Auto) 0.2 % (0.0-2.0) Neutrophils # (Auto) 18.3 TH/MM3 (1.8-7.7) Lymphocytes # (Auto) 1.4 TH/MM3 (1.0-4.8) Monocytes # (Auto) 0.9 TH/MM3 (0-0.9) Eosinophils # (Auto) 0.0 TH/MM3 (0-0.4) Basophils # (Auto) 0.0 TH/MM3 (0-0.2) CBC Comment AUTO DIFF Differential Total Cells Counted 100 Neutrophils % (Manual) 90 % (16-70) Band Neutrophils % 3 % (0-6) Lymphocytes % 1 % (9-44) Neutrophils # (Manual) 20.4 TH/MM3 (1.8-7.7) Metamyelocytes 5 % (0-1) Myelocytes 1 % (0-0) Nucleated Red Blood Cells 1 /100 WBC (0-0) Differential Comment FINAL DIFF MANUAL Platelet Estimate NORMAL (NORMAL) Platelet Morphology Comment NORMAL (NORMAL) Polychromasia 2.2 % (0.0-1.9) Basophilic Stippling FAINT (NORMAL) Activated Partial Thromboplast Time 75.6 SEC (24.3-30.1) 49.4 SEC (24.3-30.1) 52.2 SEC (24.3-30.1) Blood Urea Nitrogen 35 MG/DL (7-18) 33 MG/DL (7-18) Creatinine 1.46 MG/DL (0.50-1.00) 1.48 MG/DL (0.50-1.00) Random Glucose 282 MG/DL (74-106) 316 MG/DL (74-106) Total Protein 7.2 GM/DL (6.4-8.2) Albumin 3.0 GM/DL (3.4-5.0) Calcium Level 8.0 MG/DL (8.5-10.1) 8.3 MG/DL (8.5-10.1) Alkaline Phosphatase 83 U/L (45-117) Aspartate Amino Transf (AST/SGOT) 22 U/L (15-37) Alanine Aminotransferase (ALT/SGPT) 58 U/L (10-53) Total Bilirubin 1.0 MG/DL (0.2-1.0) Sodium Level 150 MEQ/L (136-145) 148 MEQ/L (136-145) Potassium Level 3.3 MEQ/L (3.5-5.1) 3.6 MEQ/L (3.5-5.1) Chloride Level 115 MEQ/L (98-107) 114 MEQ/L (98-107) Carbon Dioxide Level 24.6 MEQ/L (21.0-32.0) 23.8 MEQ/L (21.0-32.0) Anion Gap 10 MEQ/L (5-15) 10 MEQ/L (5-15) Estimat Glomerular Filtration Rate 35 ML/MIN (>89) 35 ML/MIN (>89) Ammonia 40 MCMOL/L (11-32) Random Cortisol 41.6 MCG/DL Test 11/10/17 04:15 11/10/17 14:51 11/10/17 14:57 11/11/17 04:00 White Blood Count 19.0 TH/MM3 (4.0-11.0) 17.7 TH/MM3 (4.0-11.0) Red Blood Count 3.58 MIL/MM3 (4.00-5.30) 3.51 MIL/MM3 (4.00-5.30) Hemoglobin 9.4 GM/DL (11.6-15.3) 9.1 GM/DL (11.6-15.3) Hematocrit 29.6 % (35.0-46.0) 29.3 % (35.0-46.0) Mean Corpuscular Volume 82.8 FL (80.0-100.0) 83.3 FL (80.0-100.0) Mean Corpuscular Hemoglobin 26.4 PG (27.0-34.0) 26.0 PG (27.0-34.0) Mean Corpuscular Hemoglobin Concent 31.8 % (32.0-36.0) 31.3 % (32.0-36.0) Red Cell Distribution Width 18.5 % (11.6-17.2) 18.9 % (11.6-17.2) Platelet Count 166 TH/MM3 (150-450) 154 TH/MM3 (150-450) Mean Platelet Volume 9.2 FL (7.0-11.0) 9.2 FL (7.0-11.0) Neutrophils (%) (Auto) 89.0 % (16.0-70.0) 88.8 % (16.0-70.0) Lymphocytes (%) (Auto) 6.3 % (9.0-44.0) 5.9 % (9.0-44.0) Monocytes (%) (Auto) 4.2 % (0.0-8.0) 4.4 % (0.0-8.0) Eosinophils (%) (Auto) 0.4 % (0.0-4.0) 0.8 % (0.0-4.0) Basophils (%) (Auto) 0.1 % (0.0-2.0) 0.1 % (0.0-2.0) Neutrophils # (Auto) 16.9 TH/MM3 (1.8-7.7) 15.7 TH/MM3 (1.8-7.7) Lymphocytes # (Auto) 1.2 TH/MM3 (1.0-4.8) 1.0 TH/MM3 (1.0-4.8) Monocytes # (Auto) 0.8 TH/MM3 (0-0.9) 0.8 TH/MM3 (0-0.9) Eosinophils # (Auto) 0.1 TH/MM3 (0-0.4) 0.1 TH/MM3 (0-0.4) Basophils # (Auto) 0.0 TH/MM3 (0-0.2) 0.0 TH/MM3 (0-0.2) CBC Comment AUTO DIFF DIFF FINAL Differential Total Cells Counted 100 Neutrophils % (Manual) 82 % (16-70) Band Neutrophils % 2 % (0-6) Lymphocytes % 4 % (9-44) Monocytes % 4 % (0-8) Eosinophils % 1 % (0-4) Neutrophils # (Manual) 17.3 TH/MM3 (1.8-7.7) Metamyelocytes 2 % (0-1) Myelocytes 4 % (0-0) Promyelocytes 1 % (0-0) Differential Comment FINAL DIFF MANUAL Platelet Estimate NORMAL (NORMAL) Platelet Morphology Comment NORMAL (NORMAL) Polychromasia 2.4 % (0.0-1.9) Basophilic Stippling MOD (NORMAL) Activated Partial Thromboplast Time 56.7 SEC (24.3-30.1) 42.2 SEC (24.3-30.1) Blood Urea Nitrogen 27 MG/DL (7-18) 22 MG/DL (7-18) Creatinine 1.34 MG/DL (0.50-1.00) 1.24 MG/DL (0.50-1.00) Random Glucose 341 MG/DL (74-106) 266 MG/DL (74-106) Total Protein 7.1 GM/DL (6.4-8.2) 6.5 GM/DL (6.4-8.2) Albumin 2.9 GM/DL (3.4-5.0) 2.6 GM/DL (3.4-5.0) Calcium Level 7.7 MG/DL (8.5-10.1) 7.7 MG/DL (8.5-10.1) Phosphorus Level 2.6 MG/DL (2.5-4.9) 2.2 MG/DL (2.5-4.9) Magnesium Level 1.6 MG/DL (1.5-2.5) 1.6 MG/DL (1.5-2.5) Alkaline Phosphatase 103 U/L (45-117) 117 U/L (45-117) Aspartate Amino Transf (AST/SGOT) 23 U/L (15-37) 29 U/L (15-37) Alanine Aminotransferase (ALT/SGPT) 43 U/L (10-53) 37 U/L (10-53) Total Bilirubin 0.9 MG/DL (0.2-1.0) 0.7 MG/DL (0.2-1.0) Sodium Level 148 MEQ/L (136-145) 147 MEQ/L (136-145) Potassium Level 3.1 MEQ/L (3.5-5.1) 3.5 MEQ/L (3.5-5.1) 3.1 MEQ/L (3.5-5.1) Chloride Level 114 MEQ/L (98-107) 113 MEQ/L (98-107) Carbon Dioxide Level 24.0 MEQ/L (21.0-32.0) 24.0 MEQ/L (21.0-32.0) Anion Gap 10 MEQ/L (5-15) 10 MEQ/L (5-15) Estimat Glomerular Filtration Rate 39 ML/MIN (>89) 43 ML/MIN (>89) Ammonia 33 MCMOL/L (11-32) Phenytoin (Dilantin) Level 9.7 MCG/ML (10.0-20.0) 8.7 MCG/ML (10.0-20.0) Stool C. difficile Toxin (PCR) POSITIVE (NEGATIVE) Stl C. difficile Toxin Epiderm 027 PRESUMPTIVE NEGATIVE Result Diagram: 11/11/1739911/11/17399 Microbiology Microbiology Date/Time Source Procedure Growth Status 11/02/17 04:23 Blood Peripheral Aerobic Blood Culture - Final NO GROWTH IN 5 DAYS Complete 11/02/17 04:23 Blood Peripheral Anaerobic Blood Culture - Final NO GROWTH IN 5 DAYS Complete 11/01/17 20:00 Stool Stool Stool Occult Blood (NANI) - Final HEMOCCULT NEGATIVE Complete 11/05/17 10:58 Sputum Endotracheal Gram Stain - Final Complete 11/05/17 10:58 Sputum Endotracheal Sputum Culture - Final NO GROWTH IN 48 HOURS. Complete 10/31/17 13:30 Urine Clean Catch Urine Culture - Final Escherichia Coli Complete Imaging Last Impressions Brain MRI 11/10/17 0000 Signed Impressions: Service Date/Time: Friday, November 10, 2017 14:00 - CONCLUSION: 1. Stable examination. Specifically, no acute infarction, hemorrhage or mass. 2. Senescent changes with periventricular white matter ischemic demyelination and focal lacunar type infarct in the right centrum semiovale. César Coats MD Chest X-Ray 11/08/17 0600 Signed Impressions: Service Date/Time: Wednesday, November 08, 2017 04:16 - CONCLUSION: Stable radiographic appearance most consistent with pulmonary edema. Antonio High Jr., MD Liver Ultrasound 11/07/17 0000 Signed Impressions: Service Date/Time: October 08:05 - CONCLUSION: 1. Heterogeneous liver suggestive of hepatocellular disease such as cirrhosis. There is a small amount of ascites surrounding the liver. This is not significantly changed compared to the recent CT scan of the abdomen. 2. Sludge in the gallbladder. No definite gallstones or biliary tract obstruction. 3. Mild splenomegaly. 4. Mild hydronephrosis of the right collecting system. Markie Crabtree MD Head CT 11/06/17 0000 Signed Impressions: Service Date/Time: Monday, November 06, 2017 10:03 - CONCLUSION: 1. No acute intracranial abnormality or significant interval change. César Coats MD Abdomen X-Ray 11/04/17 0000 Signed Impressions: Service Date/Time: Saturday, November 04, 2017 17:50 - CONCLUSION: Nonspecific intestinal gas pattern Jose Wright MD Abdomen/Pelvis CT 10/31/17 1321 Signed Impressions: Service Date/Time: October 13:58 - CONCLUSION: 1. Development of innumerable small sclerotic lesions in the skeleton most characteristic of sclerotic bony metastatic disease. There is a reported history of malignancy. 2. Hepatomegaly with development of mild ascites. 3. Persistent moderate hydronephrosis with perinephric stranding similar to February 2017. Interval development of mild anasarca. 4. Gallbladder sludge. Gallo catheter in bladder. Samuel Lin MD Lung Scan-[facility] Nuclear Medicine 10/31/17 0000 Signed Impressions: Service Date/Time: October 15:00 - CONCLUSION: Low probability scan for pulmonary embolism Jose Wright MD Procedures 11/02: Intubation . Patient/Family Conference Present at Family Conference: Spoke with at bedside. Explained palliative care purpose and focus and discussed below listed items. Reviewed clinical course, design and sales consultant opinions, previous admissions, past social, medical, surgical, psychosocial history. Participated in life review and gently evaluated goals of care. at this time maintains aggressive goals and would reintubate if necessary. Palliative care contact information provided for any further questions or concerns. . Family Conference Location: Bedside Issues Discussed: * Palliative care role, purpose, approach * Additional medical, psychosocial, and spiritual history * Patients general health, functional status, and cognitive changes in the months leading up to the current hospitalization * Patient/family understanding of the current medical problems * Patient/family understanding of prognosis * Patients goals of care as best understood from advance directives and/or conversations and/or values * Current medical treatment options and benefits/burdens of those options * Likely scenarios comparing ongoing aggressive care with a transition to comfort measures only * Questions answered to the best of my ability * Palliative care contact information provided Assessment and Plan Disease Oriented Problem List: (1) Physical deconditioning (2) Sepsis due to Gram-negative organism with septic shock (3) Atrial fibrillation with rapid ventricular response (4) Respiratory failure (5) Diabetes mellitus, type II (6) Acute kidney failure Symptom Scale: (1) Encephalopathy 0-10 Scale: Unable to quantify (Patient nonverbal. 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 She was very active in community affairs up until her diagnosis of colon cancer. She has been to her for over 40 years. Spiritual: She identifies with the Mandaeism kamala. Legal: Voluntary admission, no noted legal issues. Ethical issues impacting care: None noted. . Important Contacts Spouse: Janel Marroquin Son: Jose Rafael Marroquin . Prognosis Her prognosis is poor. She has had recurrent sepsis and has multiple bony lesions seen on CT scan suspicious for bony metastasis. She has a history of high risk colon cancer status post colon resection and chemotherapy with Xeloda , completed 09/07. She is now encephalopathic and has required intubations on several admissions. She was too weak to stand upon admission and has undergone rehabilitative therapy at [facility] at previous admissions. She will likely require rehabilitative therapy again, if she survives this admission. She is at high risk for recurrent sepsis, complications decline and recurrent hospital admissions. . Code Status: Full Code Plan PLAN: Legal decision maker: At this time the patient is not capacitated to make decisions as she is encephalopathic and nonverbal. To the 's knowledge no healthcare surrogate has been completed and so by [place] statutes he would be the legal proxy decision-maker. He does have 2 sons which would be the next tier decision-makers if he were unable to serve. Goals: Aggressive CODE STATUS: FULL CODE SYMPTOMS: * Encephalopathy: At this time she is not speaking and does not appear to comprehend her current situation. She has been intermittently febrile with a current temperature of 100.3. She has had some hyperammonemia and is currently receiving Xifaxan, which has reduced her level from a high of 76-33. EEG done shows moderate encephalopathy and notes a cardiac arrhythmia. She is not responding to commands at this time, however is now opening her eyes as medications have been adjusted to prevent sedation. Neurology is following. * Dyspnea: Her respiratory status continues to be fragile. She was previously intubated from 11/02 through 11/05. Her chest x-ray shows pulmonary edema. DuoNeb is available and scheduled every 6 hours. She remains at risk for reintubation, to which her would agree. SUMMARY This is a 72-year-old female with a history of colon cancer, status post chemotherapy with Xeloda who presents with profound weakness found to have E. coli pyelonephritis and sepsis. She remains critically ill in the intensive care unit. She did require intubation during this admission and has maintained and extubated status for 6 days, however remains febrile, tachypneic and at elevated risk for reintubation. Her profound weakness prevented her from having a PET scan to further evaluate bony lesions found which are suspicious for metastatic disease. At this time it is suspected, but unknown, whether she has recurrent cancer or not. Family goals remain aggressive. Patient is likely to experience continued complications, decline and recurrent admissions. Palliative care will continue to follow the patient during hospital course as condition evolves, to assist patient/decision-maker with understanding of their medical conditions, weighing benefits/burdens of treatment options, for clarification of goals of treatment. Additionally will assist with any symptoms of palliative concern. . Thank you for the opportunity to participate in the care of Ms. Marroquin. Attestation To help prompt me to consider important information that might be impacting today's encounter and assessment, information from prior notes written by myself or my colleagues may have been "brought forward" into today's note. My signature on this note, however, is an attestation that I personally performed the exam, history, and/or decision-making noted today, and, unless otherwise indicated, the interactions with patient, family, and staff as well as the review of records all occurred today. I also attest that the listed assessment and stated plan reflect my best clinical judgment today based on the combination of historical information, prior notes, and today's exam/ interactions. When time spent is documented, it refers only to time spent today by the signer, or if indicated, combined time spent today by collaborating physician/nurse practitioner. . Claudia Montenegro November 11, 2017 16:59
--- NOTE | 2017-11-11 18:02 | HHI.CCPN ---
Subjective Remarks/Hospital Course 72-year-old female with a medical history significant for colon cancer, hypertension, hyperlipidemia, atrial fibrillation status post previous ablation , type 2 diabetes mellitus who presented to the ER with generalized weakness and was hypotensive on arrival. She was diagnosed to have a UTI/sepsis. She received 4 L fluids in the ER with systolic blood pressure coming up to the 90s however was tachycardic with heart rate going up to 130s atrial fibrillation. She had a negligible urine output despite 4 L IV fluids and an elevated lactic acid with concern for severe sepsis and acute kidney injury. Patient was admitted by family medicine service and critical care consult was requested by ER physician. I evaluated the patient in the ER. At that time she was on 2 L nasal cannula maintaining O2 sats around 98%. Her systolic blood pressure was in the mid 90 range. She was in atrial fibrillation with heart rate ranging from 110-120s. Patient was awake and alert at the time of my evaluation and was following commands appropriately. She denied any worsening shortness of breath or chest pain at the time. She did have some abdominal discomfort. She appeared slightly tachypneic. She had already received empiric antibiotic coverage. History was obtained by discussion with , ER physician, family medicine residents and review of records. Patient has reportedly not had anything to eat or drink for 30 hours prior to admission. She has been having burning with urination over the past 2 days. Patient had a head CT which was unremarkable, CT abdomen pelvis revealed moderate hydronephrosis, VQ scan was low probability for PE. 11/01: Patient appears critical, tachypneic. Urine output marginal 200 mL overnight shift time. Blood cultures 4 out of 4 bottles positive for gram- negative rods. Currently on 40 mcg/min of Raymond-Synephrine. Remaisn in A fib with RVR. Will start Amiodarone gtt, attempt rate control/cardioverted. Previous echo done last year shows EF 55-60%, moderate mitral stenosis, mild to moderate aortic stenosis, moderate TR, also will hold Xarelto start IV heparin 11/02: Patient remains very critically ill and septic shock now in respiratory failure. Overnight required intubation for tachypnea and respiratory distress. Received a dose of tobramycin Sensitivities are pending for E. coli. White count has dropped to 2.1 creatinine is 2.12 today. Will discontinue Zosyn and start renally dosed meropenem. Remains on amiodarone infusion heart rate slightly better controlled. Raymond-Synephrine just weaned off, but currently patient is hypotensive with maps 61 11/03: Remains very critical. Failed CPAP trials. Off pressors but urine output is decreasing creatinine has increased BUN 59/creatinine 3.36. WBC count elevated to 20.3 with a 22% bands. E. coli is pansensitive DC meropenem and start Rocephin. 11/04: Remains sedated, orally intubated on mechanical ventilation. On Levophed 2 mics per minute for hypotension. Failed CPAP trial yesterday. 11/05: Arousable off sedation. On mechanical ventilation. Daily CPAP trials ongoing. 11/06: Extubated yesterday, weak but breathing comfortably. Hypertensive. WBC 22.2, but clinically improving, possibly steroid induced. Will DC Hydrocortisone 11/07. Patient remains encephalopathy. But moving all extremities appears to be protecting airway. States of few words. But did not open eyes. WBC is 25.6. BUN 49 creatinine 1.81 urine output 1.6 L. Ammonia level was 71 yesterday, lactulose changed to scheduled. Had 2 bowel movements overnight repeat ammonia today. Remains hypotensive, insert NG tube for medication and nutrition. Start scheduled metoprolol 25 every 8 hours 11/08: The patient was noted to be still lethargic. No spontaneous eye opening, not even stating words today. Clonidine discontinued as as needed medication for hypertension. If needed will increase metoprolol every 8 hours. Patient continues on hydralazine and labetalol as needed for hypertension. Patient remains n.p.o.. Pravastatin placed on hold 2/2 elevated LFTs. 11/09: Neurological status unchanged overnight. Neurology has been consulted for continued encephalopathy. The patient continues on lactulose ammonia level 40. Hydrocortisone discontinued, several days ago. Cortisol level pending. 11/10: neuro exam remains poor, but patient protecting airway. lactulose continues. no other changes. 11/11: slight improvements in neuro exam, but still very much too somnolent to tolerate out of ICU. no changes. Objective Vital Signs Date Time Temp Pulse Resp B/P (MAP) Pulse Ox O2 Delivery O2 Flow Rate FiO2 11/11/17 16:00 100.3 87 18 128/62 (84) 99 11/11/17 08:50 Nasal Cannula 2.00 11/09/17 19:00 40 Intake and Output 11/11/17 11/11/17 11/12/17 08:00 16:00 00:00 Intake Total 930 ml Output Total 1800 ml Balance -870 ml Result Diagram: 11/11/17 0400 11/11/17 0400 Imaging Last Impressions Chest X-Ray 11/08/17 0600 Signed Impressions: Service Date/Time: Wednesday, November 08, 2017 04:16 - CONCLUSION: Stable radiographic appearance most consistent with pulmonary edema. Antonio High Jr., MD Brain MRI 11/08/17 0000 Signed Impressions: Service Date/Time: Wednesday, November 08, 2017 14:49 - CONCLUSION: 1. 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 2. Nothing acute. Jj Alvarez MD Liver Ultrasound 11/07/17 0000 Signed Impressions: Service Date/Time: October 08:05 - CONCLUSION: 1. Heterogeneous liver suggestive of hepatocellular disease such as cirrhosis. There is a small amount of ascites surrounding the liver. This is not significantly changed compared to the recent CT scan of the abdomen. 2. Sludge in the gallbladder. No definite gallstones or biliary tract obstruction. 3. Mild splenomegaly. 4. Mild hydronephrosis of the right collecting system. Markie Crabtree MD Head CT 11/06/17 0000 Signed Impressions: Service Date/Time: Monday, November 06, 2017 10:03 - CONCLUSION: 1. No acute intracranial abnormality or significant interval change. César Coats MD Abdomen X-Ray 11/04/17 0000 Signed Impressions: Service Date/Time: Saturday, November 04, 2017 17:50 - CONCLUSION: Nonspecific intestinal gas pattern Jose Wright MD Abdomen/Pelvis CT 10/31/17 1321 Signed Impressions: Service Date/Time: October 13:58 - CONCLUSION: 1. Development of innumerable small sclerotic lesions in the skeleton most characteristic of sclerotic bony metastatic disease. There is a reported history of malignancy. 2. Hepatomegaly with development of mild ascites. 3. Persistent moderate hydronephrosis with perinephric stranding similar to February 2017. Interval development of mild anasarca. 4. Gallbladder sludge. Gallo catheter in bladder. Samuel Lin MD Lung Scan-VQ Nuclear Medicine 10/31/17 0000 Signed Impressions: Service Date/Time: October 15:00 - CONCLUSION: Low probability scan for pulmonary embolism Jose Wright MD Last 48 hours Impressions Chest X-Ray 11/03/17 0600 Signed Impressions: Service Date/Time: Friday, November 03, 2017 04:01 - CONCLUSION: No significant change. Robe Menchaca MD Last Impressions Head CT 10/31/17 1321 Signed Impressions: Service Date/Time: October 14:02 - CONCLUSION: 1. No acute intracranial findings. Left sphenoid sinusitis. Remote lacunar infarct right frontal white matter. Samuel Lin MD Abdomen/Pelvis CT 10/31/17 1321 Signed Impressions: Service Date/Time: October 13:58 - CONCLUSION: 1. Development of innumerable small sclerotic lesions in the skeleton most characteristic of sclerotic bony metastatic disease. There is a reported history of malignancy. 2. Hepatomegaly with development of mild ascites. 3. Persistent moderate hydronephrosis with perinephric stranding similar to February 2017. Interval development of mild anasarca. 4. Gallbladder sludge. Gallo catheter in bladder. Samuel Lin MD Lung Scan-VQ Nuclear Medicine 10/31/17 0000 Signed Impressions: Service Date/Time: October 15:00 - CONCLUSION: Low probability scan for pulmonary embolism Jose Wright MD Chest X-Ray 10/31/17 0000 Signed Impressions: Service Date/Time: October 12:24 - CONCLUSION: No acute disease. Heart size appears enlarged. Jose Pablo MD Objective Remarks Gen: 72-year-old critically ill female who is lying on bed, lethargic somnolent , no spontaneous eye open HEENT: No pallor or icterus Neck: No JVD Chest/pulmonary: Air entry equal bilaterally, slightly diminished at the bases. protects airway. Cardiovascular: Sinus rhythm now, no gallop or murmur. GI/abdomen: Soft, no tenderness, bowel sounds present. Distended, no rebound Extremities: Warm bilaterally, trace edema Neuro: Somnolent. Moves all 4 extremities no focal deficit. She can state a few words but did not open eyes. Positive gag ,lid reflexes A/P Assessment and Plan 72-year-old female with: ASSESSMENT: Acute metabolic encephalopathy Hyperammonemia Severe sepsis Acute respiratory failure-extubated 11/05/17 Acute kidney failure/ATN Atrial fibrillation with RVR, now NSR E Coli bacteremia/UTI with E. coli Lactic acidosis Elevated liver enzymes Moderate hydronephrosis Chronic atrial fibrillation Moderate mitral stenosis, mild to moderate aortic stenosis, moderate tricuspid regurgitation History of pulmonary embolism Colon cancer with suspected metastatic disease Vitamin B12 deficiency Diabetes Type 2 - on insulin h/o Hypertension Hyperlipidemia Depression Hypothyroidism h/o CVA h/o PE (03/2017) h/o Pyelo/PNA (03/2017 requiring intubation) Pulmonary edema C. Difficile colitis PLAN: Neuro: -Off all sedation -11/08 Discontinue clonidine utilized for hypertension as needed, secondary to possible contribution of lethargic -Continue lactulose, and rifaximin repeat ammonia level -PT/OT speech -11/08 MRI-chronic changes old lacunar infarct no acute abnormality add provigil for wakefullness Cardiovascular: -Hypertensive now, use labetalol and hydralazine IV as needed. Clonidine discontinued. -scheduled metoprolol 25 p.o. every 8 hours. -Discontinued stress dose steroids 11/06 -On IV amiodarone since 11/01. Transitioned to p.o. amiodarone 11/06 -IV digoxin as needed -Holding Xarelto for anticoagulation, Continue IV heparin -Need rate control due to moderate mitral stenosis and mild to moderate aortic stenosis, currently NSR - 11/09 Obtain Cortisol level: 41. adequate. Pulmonary: -Intubated 11/01/17 for acute respiratory failure, extubated 11/05/17 -11/08 chest x-ray pulmonary edema-Lasix 40 mg IVP -DuoNeb every 6 hours and as needed -EzPAP, Acapella, IS, as tolerated GI/liver: -Pepcid for GI prophylaxis. NGT p.o. meds and nutrition -Start tube feedings with Jevity after getting US liver rule out cholecystitis Renal/: -Nephrology following. Urine output is adequate. Creatinine improving 1 -Urology consulted in the setting of moderate hydronephrosis with renal failure , did not recommend stent placement ID: - C. Diff + 11/10. PO vanc. avoiding iv flagyl given delirium. -ultrasound of the liver-Heterogeneous liver suggestive of hepatocellular disease such as cirrhosis. There is a small amount of ascites surrounding the liver. This is not significantly changed compared to the recent CT scan of the abdomen.Sludge in the gallbladder. No definite gallstones or biliary tract obstruction. Mild splenomegaly. Mild hydronephrosis of the right collecting system. -1 dose of tobramycin given overnight on 11/01 prior to cultures stu available -Blood and urine culture pansensitive E. coli -ID following- Heme-onc: -Dr. Candelario following for history of colon cancer in suspected metastatic lesions on CT abdomen pelvis. -Need PET scan when stable Endocrine: -SSI for glycemic control. -Vitamin B12 level is low.vitamin B12 injections 1000 mcg IM daily for 10 days then monthly Prophylaxis: -Pepcid/SCDs. Holding Xarelto, continue IV heparin (IV heparin for Cindy nunez, also for history of pulmonary embolism last year, she is high risk due to underlying malignancy) Access: -Has peripheral IVs and port. Patient's condition is critical worsening encephalopathy is now concerning for ongoing or worsening sepsis. Patient may further decompensate and may require mechanical ventilatory support. Avoidance of sedative type medication clonidine discontinued patient will require rate control will consider increasing metoprolol if needed. Neurology has been consulted regarding encephalopathy. Ehsan Damon MD November 11, 2017 18:02
[2017-11-11 19:53] LABS: CERULOPLASMIN 37 mg/dL (18-53)
[2017-11-11] MEDS: INSULIN DETEMIR 100 UNITS/ML VIAL SQ SCH (20:34)
--- NOTE | 2017-11-11 20:44 | MG ---
cc: Meño Castillo MD DATE: 11/11/2017 ELECTROENCEPHALOGRAM RECORD NUMBER: [id number]. INDICATIONS: This is a 72-year-old woman, left-sided back pain and weakness, moderate encephalopathy by EEG in the past, atrial fibrillation. MEDICATIONS: Cerebyx, Effexor. DESCRIPTION: Diffuse 4-5 Hz slowing is seen, including overall synchronous and symmetric. Some triphasic-like waves are noted bifrontally, then the EEG normalizes more towards the latter half with some alpha rhythms seen, synchronous and symmetric. IMPRESSION: This looks like a moderately severe metabolic encephalopathy, although seizure needs to be ruled out. It looks more metabolic than epileptiform. No hemisphere asymmetries are noted. No focal abnormalities were noted. MD SIA Oquendo/LIOR , 08:20 PM , 08:43 PM
[2017-11-12] VITALS (15 sets, daily range): BP systolic 107–176; BP diastolic 52–73; PULSE 72–88; RESP 20–30; TEMP 98.8–100.1; O2SAT 98–100
[2017-11-12] MEDS: ACETAMINOPHEN 1000 MG/100 ML 100 ML IV PRN (00:02)
[2017-11-12] MEDS: INSULIN NovoLIN REGULAR SUPPLEMENTAL SCALE SQ SCH ×6 (00:02→20:00)
[2017-11-12] MEDS: FOSPHENYTOIN SODIUM 100 MG PE/2 ML VIAL IV SCH ×3 (02:42→22:22)
[2017-11-12] MEDS: SODIUM CHLORIDE 23.4% INJ 38.5 MEQ in WATER STERILE FOR INJ 1,000 ML IV SCH ×2 (02:42→20:56)
[2017-11-12] MEDS: PIPERACIL-TAZO 3.375 GM PREMIX 50 ML IV SCH ×4 (02:42→20:07)
[2017-11-12] MEDS: LACTULOSE SYRUP 20 GM/30 ML CUP PO SCH ×4 (02:42→20:07)
[2017-11-12] MEDS: RESP: ALBUTEROL 2.5 MG/IPRATROPIUM 0.5 MG NEB (SCH) NEB ×4 (03:55→21:08)
[2017-11-12 05:39] LABS: AUTOMATED NEUTROPHIL # 13.6 TH/MM3 (1.8-7.7); BASOPHIL % 0.2 % (0.0-2.0); EOSINOPHIL # 0.3 TH/MM3 (0-0.4); EOSINOPHIL % 2.1 % (0.0-4.0); HEMATOCRIT 28.5 % (35.0-46.0); LYMPH % 6.3 % (9.0-44.0); MEAN CELL VOLUME 82.2 FL (80.0-100.0); MEAN CORPUSCULAR HEMOGLOBIN 25.9 PG (27.0-34.0); MEAN CORPUSCULAR HGB CONC 31.5 % (32.0-36.0); MONO % 5.9 % (0.0-8.0); MONOCYTE # 0.9 TH/MM3 (0-0.9); NEUT % 85.5 % (16.0-70.0); PLATELET COUNT 137 TH/MM3 (150-450); RED BLOOD COUNT 3.46 MIL/MM3 (4.00-5.30); RED CELL DISTRIBUTION WIDTH 18.9 % (11.6-17.2); WHITE BLOOD COUNT 15.9 TH/MM3 (4.0-11.0)
[2017-11-12] MEDS: HEPARIN-D5W 25,000 U/250 ML 250 ML IV PRN ×2 (05:41→20:10)
[2017-11-12] MEDS: VANCOMYCIN 500 MG VIAL (FOR ORAL USE ONLY) PO SCH ×4 (05:42→22:22)
[2017-11-12] MEDS: LEVOTHYROXINE SODIUM 50 MCG TAB PO SCH (05:43)
[2017-11-12] MEDS: METOPROLOL TARTRATE 25 MG TAB PO SCH ×3 (05:43→22:22)
[2017-11-12 06:04] LABS: ALBUMIN 2.5 GM/DL (3.4-5.0); AST (GOT) 60 U/L (15-37); BICARBONATE 27.3 MEQ/L (21.0-32.0); CALCIUM 7.6 MG/DL (8.5-10.1); CHLORIDE 112 MEQ/L (98-107); CREATININE 1.08 MG/DL (0.50-1.00); GLOMERULAR FILTRATION RATE 50 ML/MIN (>89); GLUCOSE,RANDOM 160 MG/DL (74-106); SODIUM (NA) 148 MEQ/L (136-145)
[2017-11-12 06:14] LABS: ALKALINE PHOSPHATASE 196 U/L (45-117); ALT (GPT) 41 U/L (10-53); BLOOD UREA NITROGEN 21 MG/DL (7-18); PHENYTOIN (DILANTIN) 5.3 MCG/ML (10.0-20.0); TOTAL BILIRUBIN ADULT 0.8 MG/DL (0.2-1.0); TOTAL PROTEIN 6.4 GM/DL (6.4-8.2)
[2017-11-12] MEDS: CHLORHEXIDINE 0.12% (ORAL KIT) 15 ML CUP MT SCH ×2 (08:00→20:07)
[2017-11-12] MEDS: VENLAFAXINE HCL XR 75 MG CAP PO SCH (08:15)
[2017-11-12] MEDS: AMIODARONE 200 MG TAB PO SCH (08:15)
[2017-11-12] MEDS: RIFAXIMIN 550 MG TAB PO SCH ×2 (08:16→20:08)
[2017-11-12] MEDS: ACETAMINOPHEN/HYDROcodone 325 MG/5 MG TAB PO PRN ×2 (08:16→22:24)
[2017-11-12] MEDS: MODAFINIL 200 MG TAB PO SCH (08:16)
[2017-11-12] MEDS: FLUoxetine HCL 20 MG CAP PO SCH (08:16)
[2017-11-12] MEDS: DOCUSATE SODIUM 50 MG/SENNA 8.6 MG TAB PO SCH ×2 (08:16→20:08)
[2017-11-12] MEDS: ALBUMIN 25% INJ 50 ML IV SCH ×2 (08:17→20:07)
[2017-11-12] MEDS: SODIUM CHLORIDE 0.9% FLUSH 10 ML FLUSH IV FLUSH SCH ×2 (09:00→20:07)
[2017-11-12] MEDS: POTASSIUM CHLOR 40 MEQ PREMIX 100 ML IV PRN ×2 (09:11→14:05)
--- NOTE | 2017-11-12 09:16 | HHI.CCPN ---
Subjective Remarks/Hospital Course 72-year-old female with a medical history significant for colon cancer, hypertension, hyperlipidemia, atrial fibrillation status post previous ablation , type 2 diabetes mellitus who presented to the ER with generalized weakness and was hypotensive on arrival. She was diagnosed to have a UTI/sepsis. She received 4 L fluids in the ER with systolic blood pressure coming up to the 90s however was tachycardic with heart rate going up to 130s atrial fibrillation. She had a negligible urine output despite 4 L IV fluids and an elevated lactic acid with concern for severe sepsis and acute kidney injury. Patient was admitted by family medicine service and critical care consult was requested by ER physician. I evaluated the patient in the ER. At that time she was on 2 L nasal cannula maintaining O2 sats around 98%. Her systolic blood pressure was in the mid 90 range. She was in atrial fibrillation with heart rate ranging from 110-120s. Patient was awake and alert at the time of my evaluation and was following commands appropriately. She denied any worsening shortness of breath or chest pain at the time. She did have some abdominal discomfort. She appeared slightly tachypneic. She had already received empiric antibiotic coverage. History was obtained by discussion with , ER physician, family medicine residents and review of records. Patient has reportedly not had anything to eat or drink for 30 hours prior to admission. She has been having burning with urination over the past 2 days. Patient had a head CT which was unremarkable, CT abdomen pelvis revealed moderate hydronephrosis, VQ scan was low probability for PE. 11/01: Patient appears critical, tachypneic. Urine output marginal 200 mL overnight shift time. Blood cultures 4 out of 4 bottles positive for gram- negative rods. Currently on 40 mcg/min of Raymond-Synephrine. Remaisn in A fib with RVR. Will start Amiodarone gtt, attempt rate control/cardioverted. Previous echo done last year shows EF 55-60%, moderate mitral stenosis, mild to moderate aortic stenosis, moderate TR, also will hold Xarelto start IV heparin 11/02: Patient remains very critically ill and septic shock now in respiratory failure. Overnight required intubation for tachypnea and respiratory distress. Received a dose of tobramycin Sensitivities are pending for E. coli. White count has dropped to 2.1 creatinine is 2.12 today. Will discontinue Zosyn and start renally dosed meropenem. Remains on amiodarone infusion heart rate slightly better controlled. Raymond-Synephrine just weaned off, but currently patient is hypotensive with maps 61 11/03: Remains very critical. Failed CPAP trials. Off pressors but urine output is decreasing creatinine has increased BUN 59/creatinine 3.36. WBC count elevated to 20.3 with a 22% bands. E. coli is pansensitive DC meropenem and start Rocephin. 11/04: Remains sedated, orally intubated on mechanical ventilation. On Levophed 2 mics per minute for hypotension. Failed CPAP trial yesterday. 11/05: Arousable off sedation. On mechanical ventilation. Daily CPAP trials ongoing. 11/06: Extubated yesterday, weak but breathing comfortably. Hypertensive. WBC 22.2, but clinically improving, possibly steroid induced. Will DC Hydrocortisone 11/07. Patient remains encephalopathy. But moving all extremities appears to be protecting airway. States of few words. But did not open eyes. WBC is 25.6. BUN 49 creatinine 1.81 urine output 1.6 L. Ammonia level was 71 yesterday, lactulose changed to scheduled. Had 2 bowel movements overnight repeat ammonia today. Remains hypotensive, insert NG tube for medication and nutrition. Start scheduled metoprolol 25 every 8 hours 11/08: The patient was noted to be still lethargic. No spontaneous eye opening, not even stating words today. Clonidine discontinued as as needed medication for hypertension. If needed will increase metoprolol every 8 hours. Patient continues on hydralazine and labetalol as needed for hypertension. Patient remains n.p.o.. Pravastatin placed on hold 2/2 elevated LFTs. 11/09: Neurological status unchanged overnight. Neurology has been consulted for continued encephalopathy. The patient continues on lactulose ammonia level 40. Hydrocortisone discontinued, several days ago. Cortisol level pending. 11/10: neuro exam remains poor, but patient protecting airway. lactulose continues. no other changes. 11/11: Slight improvements in neuro exam, but still very much too somnolent to tolerate out of ICU. no changes. 11/12: Neuro exam seems to be improved today patient is alert oriented 3. Remains lethargic but moves all extremities follows commands 4. WBC count is trending down 15.9 today. BUN 21/creatinine 1.08 Objective Vital Signs Date Time Temp Pulse Resp B/P (MAP) Pulse Ox O2 Delivery O2 Flow Rate FiO2 11/12/17 08:45 98 Nasal Cannula 2.00 11/12/17 08:00 77 11/12/17 08:00 99.8 27 135/61 (85) 11/09/17 19:00 40 Intake and Output 11/12/17 11/12/17 11/13/17 08:00 16:00 00:00 Intake Total 1797 ml Output Total 1000 ml Balance 797 ml Result Diagram: 11/12/17 0525 11/12/17 0525 Imaging Last Impressions Chest X-Ray 11/08/17 0600 Signed Impressions: Service Date/Time: Wednesday, November 08, 2017 04:16 - CONCLUSION: Stable radiographic appearance most consistent with pulmonary edema. Antonio High Jr., MD Brain MRI 11/08/17 0000 Signed Impressions: Service Date/Time: Wednesday, November 08, 2017 14:49 - CONCLUSION: 1. 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 2. Nothing acute. Jj Alvarez MD Liver Ultrasound 11/07/17 0000 Signed Impressions: Service Date/Time: October 08:05 - CONCLUSION: 1. Heterogeneous liver suggestive of hepatocellular disease such as cirrhosis. There is a small amount of ascites surrounding the liver. This is not significantly changed compared to the recent CT scan of the abdomen. 2. Sludge in the gallbladder. No definite gallstones or biliary tract obstruction. 3. Mild splenomegaly. 4. Mild hydronephrosis of the right collecting system. Markie Crabtree MD Head CT 11/06/17 0000 Signed Impressions: Service Date/Time: Monday, November 06, 2017 10:03 - CONCLUSION: 1. No acute intracranial abnormality or significant interval change. César Coats MD Abdomen X-Ray 11/04/17 0000 Signed Impressions: Service Date/Time: Saturday, November 04, 2017 17:50 - CONCLUSION: Nonspecific intestinal gas pattern Jose Wright MD Abdomen/Pelvis CT 10/31/17 1321 Signed Impressions: Service Date/Time: October 13:58 - CONCLUSION: 1. Development of innumerable small sclerotic lesions in the skeleton most characteristic of sclerotic bony metastatic disease. There is a reported history of malignancy. 2. Hepatomegaly with development of mild ascites. 3. Persistent moderate hydronephrosis with perinephric stranding similar to February 2017. Interval development of mild anasarca. 4. Gallbladder sludge. Gallo catheter in bladder. Samuel Lin MD Lung Scan-VQ Nuclear Medicine 10/31/17 0000 Signed Impressions: Service Date/Time: October 15:00 - CONCLUSION: Low probability scan for pulmonary embolism Jose Wright MD Last 48 hours Impressions Chest X-Ray 11/03/17 0600 Signed Impressions: Service Date/Time: Friday, November 03, 2017 04:01 - CONCLUSION: No significant change. Robe Menchaca MD Last Impressions Head CT 10/31/17 1321 Signed Impressions: Service Date/Time: October 14:02 - CONCLUSION: 1. No acute intracranial findings. Left sphenoid sinusitis. Remote lacunar infarct right frontal white matter. Samuel Lin MD Abdomen/Pelvis CT 10/31/17 1321 Signed Impressions: Service Date/Time: October 13:58 - CONCLUSION: 1. Development of innumerable small sclerotic lesions in the skeleton most characteristic of sclerotic bony metastatic disease. There is a reported history of malignancy. 2. Hepatomegaly with development of mild ascites. 3. Persistent moderate hydronephrosis with perinephric stranding similar to February 2017. Interval development of mild anasarca. 4. Gallbladder sludge. Gallo catheter in bladder. Samuel Lin MD Lung Scan-VQ Nuclear Medicine 10/31/17 0000 Signed Impressions: Service Date/Time: October 15:00 - CONCLUSION: Low probability scan for pulmonary embolism Jose Wright MD Chest X-Ray 10/31/17 0000 Signed Impressions: Service Date/Time: October 12:24 - CONCLUSION: No acute disease. Heart size appears enlarged. Jose Pablo MD Objective Remarks Gen: 72-year-old critically ill female who is lying on bed, generalized weakness persists but patient is awake alert oriented HEENT: No pallor or icterus Neck: No JVD Chest/pulmonary: Air entry equal bilaterally, slightly diminished at the bases. protects airway. Cardiovascular: A. fib rate controlled. Systolic murmur grade 3 out of 6 heard in all areas GI/abdomen: Soft, no tenderness, bowel sounds present. Distended, no rebound Extremities: Warm bilaterally, trace edema Neuro: Patient is alert awake oriented 3 today. Moves all 4 extremities no focal deficit. Able to speak and follow commands 4 Urinary Catheter: Yes Assessment to: Continue A/P Assessment and Plan 72-year-old female with: ASSESSMENT: Acute metabolic encephalopathy Hyperammonemia Severe sepsis Acute kidney failure/ATN Atrial fibrillation with RVR, now rate controlled E Coli bacteremia/UTI with E. coli Acute respiratory failure-extubated 11/05/17 Lactic acidosis Elevated liver enzymes Moderate hydronephrosis Chronic atrial fibrillation Moderate mitral stenosis, mild to moderate aortic stenosis, moderate tricuspid regurgitation History of pulmonary embolism Colon cancer with suspected metastatic disease Vitamin B12 deficiency Diabetes Type 2 - on insulin h/o Hypertension Hyperlipidemia Depression Hypothyroidism h/o CVA h/o PE (03/2017) h/o Pyelo/PNA (03/2017 requiring intubation) Pulmonary edema C. Difficile colitis PLAN: Neuro: -Remains off all sedation. Neuro exam steadily improving -11/08 Discontinue clonidine utilized for hypertension as needed, secondary to possible contribution to lethargy -Continue lactulose, and rifaximin repeat ammonia level -PT/OT speech -11/08 MRI-chronic changes old lacunar infarct no acute abnormality -Provigil for wakefulness Cardiovascular: -Hypertensive now, use labetalol and hydralazine IV as needed. Clonidine discontinued. -Continue scheduled metoprolol 25 p.o. every 8 hours. -Discontinued stress dose steroids 11/06 -On IV amiodarone since 11/01. Transitioned to p.o. amiodarone 11/06 -IV digoxin as needed -Holding Xarelto for anticoagulation, Continue IV heparin -Need rate control due to moderate mitral stenosis and mild to moderate aortic stenosis -11/09 Obtain Cortisol level: 41. adequate. Pulmonary: -Intubated 11/01/17 for acute respiratory failure, extubated 11/05/17 -11/08 chest x-ray pulmonary edema-Lasix 40 mg IVP -DuoNeb every 6 hours and as needed -EzPAP, Acapella, IS, as tolerated GI/liver: -Pepcid for GI prophylaxis. NGT p.o. meds and nutrition -Continue tube feedings with Jevity. Repeat swallow evaluation today -Ultrasound showed liver cirrhosis, GI following - JELANI +ve. furhter evaluation (positive JELANI evaluation) ordered Renal/: -Nephrology following. Urine output is adequate. Creatinine improving 1 -Urology consulted in the setting of moderate hydronephrosis with renal failure , did not recommend stent placement ID: - C. Diff + 11/10. Continue PO vanc. avoiding iv flagyl given delirium. -ultrasound of the liver-suggestive of hepatocellular disease such as cirrhosis.Sludge in the gallbladder. No definite gallstones or biliary tract obstruction. Mild splenomegaly. Mild hydronephrosis of the right collecting system. -1 dose of tobramycin given overnight on 11/01 prior to cultures stu available -Blood and urine culture pansensitive E. coli -ID following- Heme-onc: -Dr. Candelario following for history of colon cancer in suspected metastatic lesions on CT abdomen pelvis. -Need PET scan when stable Endocrine: -SSI for glycemic control. -Vitamin B12 level is low.vitamin B12 injections 1000 mcg IM daily for 10 days then monthly Prophylaxis: -Pepcid/SCDs. Holding Xarelto, continue IV heparin (IV heparin for Cindy nunez, also for history of pulmonary embolism last year, she is high risk due to underlying malignancy) Access: -Has peripheral IVs and port. Patient's mental status is improving, possibly from improving metabolic encephalopathy. CCM will sign off but will be available as needed. FP is primary service. Keep in ICU Level 2 Jan Garcia MD November 12, 2017 09:16
--- NOTE | 2017-11-12 09:19 | HHI.IDPN ---
Subjective Subjective Remarks Ms. Marroquin is a 72-year-old female with past medical history significant for colon cancer with reported history of spots on her vertebrae. Patient's spouse reports that she was scheduled to have a PET scan but could not complete it as she was extremely weak. Dr. Vargas is her oncologist and is following her. Her past medical history is also significant for hypertension hyperlipidemia, atrial fibrillation status post previous ablation, type 2 diabetes. With this background patient presents to the emergency department with generalized weakness as well as hypotensive upon arrival. She was diagnosed with possible UTI sepsis. She received 4 L of IV fluids in the emergency room and her blood pressure improved to 690s systolic. But she continued to be in atrial fibrillation with heart rate in 130s. She had a negligible urine output despite 4 L IV fluids and elevated lactic acid remains a concern. Sepsis workup was initiated and patient was started on empiric IV antibiotics for presumed UTI related sepsis. Per review of records it appears that patient reportedly did not eat or drink for 30 hours prior to admission and was having burning with urination approximately 2 days prior to admission. CT of the head was done which was unremarkable a CT of the abdomen pelvis showed moderate hydronephrosis as well as several spots as mentioned in the report concerning for malignancy related metastases. Oncology Dr. Vargas is following the patient. A VQ scan was done which showed low probability of PE. Blood cultures done on admission are positive for E. coli as well as her urine culture was also positive for E. coli. Patient has been treated with ceftriaxone and has been clinically improved. Repeat blood cultures are negative so far. Urology has seen the patient and there is no plan for placement of stent. This appears to be hydronephrosis with stranding around the kidney suggestive of pyelonephritis. Infectious diseases consulted for evaluation and management of sepsis, E. coli bacteremia and E. coli pyelonephritis. Notes reviewed Discussed with RN at bedside Temps low-grade BP okay Has liquid stool Denies abdominal pain More awake today, and answering my questions UA repeat, not done yet CT head negative. EEG metabolic encephalopathy. repeat EEG planned today. Antibiotics Zosyn IV P.o. Vanco Current Medications Medications (Trade) Dose Ordered Sig/Chiqui Route Start Time Stop Time Status Last Admin (Cordarone) 200 mg DAILY PO 11/01/17 09:00 Future hold 11/12/17 08:15 (PROzac) 20 mg DAILY PO 11/01/17 09:00 11/12/17 08:16 (Synthroid) 50 mcg DAILY@0600 PO 11/01/17 06:00 11/12/17 05:43 (Pravachol) 40 mg DAILY PO 11/01/17 09:00 Future Hold 11/08/17 08:36 (Xarelto) 20 mg DAILY PO 11/01/17 09:00 Future Hold (Effexor Xr) 75 mg DAILY PO 11/01/17 09:00 11/12/17 08:15 (NS Flush) 2 ml UNSCH PRN IV FLUSH 10/31/17 15:30 (NS Flush) 2 ml BID IV FLUSH 10/31/17 21:00 11/11/17 20:34 (Tylenol) 650 mg Q4H PRN PO 10/31/17 15:30 11/01/17 19:50 (Narcan Inj) 0.4 mg UNSCH PRN IV PUSH 10/31/17 15:30 (Elsa-Colace) 1 tab BID PO 10/31/17 21:00 11/12/17 08:16 (Milk Of Magnesia Liq) 30 ml Q12H PRN PO 10/31/17 15:30 (Senokot) 17.2 mg Q12H PRN PO 10/31/17 15:30 11/04/17 08:19 (Dulcolax Supp) 10 mg DAILY PRN RECTAL 10/31/17 15:30 (Glucagon Inj) 1 mg UNSCH PRN OTHER 10/31/17 15:30 (Zofran Odt) 4 mg Q6H PRN PO 10/31/17 15:30 11/07/17 20:48 Acetaminophen 100 ml @ 400 mls/hr Q6H PRN IV 10/31/17 17:15 11/12/17 00:02 ([facility] Nursing Information) Patient in critical care unit? Ass... Q361D .XX 10/31/17 23:15 10/31/17 23:15 (Brethine Inj) 1 mg UNSCH PRN SQ 10/31/17 23:30 Heparin Sodium/ Dextrose 250 ml @ 10 mls/hr TITRATE PRN IV 11/01/17 09:00 11/12/17 05:41 Albumin Human 50 ml @ 60 mls/hr Q12H IV 11/01/17 09:00 11/12/17 08:17 ([place] 5-325 Mg) 1 tab Q4H PRN PO 11/01/17 13:15 11/12/17 08:16 (Pyridium) 100 mg Q8H PRN PO 11/01/17 13:45 (Restoril) 15 mg HS PRN PO 11/01/17 22:00 11/01/17 22:43 (Peridex 0.12% Liq) 15 ml BID@08,20 MT 11/02/17 08:00 11/12/17 08:00 (Trandate Inj) 10 mg Q4H PRN IV PUSH 11/05/17 10:45 11/11/17 21:25 (Apresoline Inj) 20 mg Q4H PRN IV PUSH 11/06/17 07:30 11/09/17 05:18 Potassium Chloride 100 ml @ 50 mls/hr Q2H PRN IV 11/07/17 07:45 11/12/17 09:11 Potassium Chloride 100 ml @ 50 mls/hr Q2H PRN IV 11/07/17 07:45 11/09/17 07:25 (K-Lyte Cl Eff) 50 meq UNSCH PRN PO 11/07/17 07:45 11/08/17 17:55 Potassium Chloride 100 ml @ 25 mls/hr UNSCH PRN IV 11/07/17 07:45 11/08/17 08:35 Potassium Chloride 100 ml @ 50 mls/hr Q2H PRN IV 11/07/17 07:45 Magnesium Sulfate 4 gm/Sodium Chloride 100 ml @ 50 mls/hr UNSCH PRN IV 11/07/17 07:45 (Mag-Ox) 800 mg UNSCH PRN PO 11/07/17 07:45 Magnesium Sulfate 2 gm/Sodium Chloride 100 ml @ 50 mls/hr UNSCH PRN IV 11/07/17 07:45 (K-Phos) 2,000 mg Q4H PRN PO 11/07/17 07:45 Sodium Phosphate 30 mmol/Sodium Chloride 250 ml @ 42 mls/hr UNSCH PRN IV 11/07/17 07:45 (K-Phos) 2,000 mg UNSCH PRN PO/TUBE 11/07/17 07:45 Potassium Phosphate 30 mmol/ Sodium Chloride 260 ml @ 42 mls/hr UNSCH PRN IV 11/07/17 07:45 (Lopressor) 25 mg Q8HR PO 11/07/17 07:45 11/12/17 05:43 (Xifaxan) 550 mg BID PO 11/07/17 21:00 11/12/17 08:16 (Duoneb Neb) 1 ampule Q6HR NEB NEB 11/09/17 10:30 11/12/17 08:45 (Cerebyx Inj) 200 mgpe Q12H IV 11/10/17 02:00 11/12/17 02:42 Piperacillin Sod/ Tazobactam Sod 50 ml @ 100 mls/hr Q6H IV 11/10/17 15:00 11/12/17 08:15 (Lactulose Liq) 30 ml Q6H PO 11/10/17 21:00 11/12/17 02:42 Sodium Chloride 38.5 meq/Sterile Water 1,009.625 ml @ 60 mls/hr [id number] IV 11/10/17 18:15 11/12/17 02:42 (Provigil) 200 mg DAILY PO 11/11/17 09:00 11/12/17 08:16 (D50w (Vial) Inj) 25 ml UNSCH PRN IV PUSH 11/10/17 18:15 (NovoLIN R SUPPLEMENTAL SCALE) 1 Q4HR SQ 11/10/17 20:00 11/12/17 08:00 (Levemir Inj) 10 units HS SQ 11/10/17 21:00 11/11/17 20:34 (VANCOMYCIN for oral use only) 125 mg Q6H PO 11/10/17 22:00 11/12/17 05:42 Lines Port site ok Past Medical History reviewed Allergies: Coded Allergies: Sulfa (Sulfonamide Antibiotics) (Verified Allergy, Severe, 10/31/17) codeine (Verified Allergy, Severe, Nausea/Vomiting, 10/31/17) Uncoded Allergies: METAL (Allergy, Intermediate, hives, 03/08/16) SURGICAL STEEL (Allergy, Intermediate, hives, 03/08/16) Objective . Vital Signs Date Time Temp Pulse Resp B/P (MAP) Pulse Ox O2 Delivery O2 Flow Rate FiO2 11/12/17 08:45 98 Nasal Cannula 2.00 11/12/17 08:00 77 11/12/17 08:00 99.8 75 27 135/61 (85) 100 11/12/17 07:00 99 Nasal Cannula 1.00 11/12/17 06:00 77 11/12/17 04:00 100.1 80 27 136/65 (88) 100 11/12/17 04:00 80 11/12/17 03:58 98 Nasal Cannula 2.00 11/12/17 02:00 81 11/12/17 00:00 82 11/12/17 00:00 100.1 82 20 116/56 (76) 99 11/11/17 23:10 98 Nasal Cannula 2.00 11/11/17 22:00 83 11/11/17 20:23 99 Nasal Cannula 2.00 11/11/17 20:00 99.8 92 22 174/91 (118) 99 11/11/17 20:00 92 11/11/17 19:00 100 Nasal Cannula 3.00 11/11/17 18:00 86 11/11/17 16:00 100.3 87 18 128/62 (84) 99 11/11/17 16:00 86 11/11/17 14:00 86 11/11/17 12:00 99.8 83 14 136/62 (86) 99 11/11/17 12:00 86 11/11/17 10:00 86 . Laboratory Tests Test 11/11/17 04:00 11/12/17 05:25 White Blood Count 17.7 TH/MM3 15.9 TH/MM3 Red Blood Count 3.51 MIL/MM3 3.46 MIL/MM3 Hemoglobin 9.1 GM/DL 9.0 GM/DL Hematocrit 29.3 % 28.5 % Mean Corpuscular Volume 83.3 FL 82.2 FL Mean Corpuscular Hemoglobin 26.0 PG 25.9 PG Mean Corpuscular Hemoglobin Concent 31.3 % 31.5 % Red Cell Distribution Width 18.9 % 18.9 % Platelet Count 154 TH/MM3 137 TH/MM3 Mean Platelet Volume 9.2 FL 9.0 FL Neutrophils (%) (Auto) 88.8 % 85.5 % Lymphocytes (%) (Auto) 5.9 % 6.3 % Monocytes (%) (Auto) 4.4 % 5.9 % Eosinophils (%) (Auto) 0.8 % 2.1 % Basophils (%) (Auto) 0.1 % 0.2 % Neutrophils # (Auto) 15.7 TH/MM3 13.6 TH/MM3 Lymphocytes # (Auto) 1.0 TH/MM3 1.0 TH/MM3 Monocytes # (Auto) 0.8 TH/MM3 0.9 TH/MM3 Eosinophils # (Auto) 0.1 TH/MM3 0.3 TH/MM3 Basophils # (Auto) 0.0 TH/MM3 0.0 TH/MM3 CBC Comment DIFF FINAL DIFF FINAL Differential Comment Laboratory Tests Test 11/10/17 14:51 11/11/17 04:00 11/11/17 23:49 11/12/17 05:25 Potassium Level 3.5 MEQ/L 3.1 MEQ/L 3.5 MEQ/L 3.2 MEQ/L Blood Urea Nitrogen 22 MG/DL 21 MG/DL Creatinine 1.24 MG/DL 1.08 MG/DL Random Glucose 266 MG/DL 160 MG/DL Total Protein 6.5 GM/DL 6.4 GM/DL Albumin 2.6 GM/DL 2.5 GM/DL Calcium Level 7.7 MG/DL 7.6 MG/DL Phosphorus Level 2.2 MG/DL Magnesium Level 1.6 MG/DL Alkaline Phosphatase 117 U/L 196 U/L Aspartate Amino Transf (AST/SGOT) 29 U/L 60 U/L Alanine Aminotransferase (ALT/SGPT) 37 U/L 41 U/L Total Bilirubin 0.7 MG/DL 0.8 MG/DL Sodium Level 147 MEQ/L 148 MEQ/L Chloride Level 113 MEQ/L 112 MEQ/L Carbon Dioxide Level 24.0 MEQ/L 27.3 MEQ/L Anion Gap 10 MEQ/L 9 MEQ/L Estimat Glomerular Filtration Rate 43 ML/MIN 50 ML/MIN Imaging Brain MRI 11/10/17 0000 Signed Impressions: Service Date/Time: Friday, November 10, 2017 14:00 - CONCLUSION: 1. Stable examination. Specifically, no acute infarction, hemorrhage or mass. 2. Senescent changes with periventricular white matter ischemic demyelination and focal lacunar type infarct in the right centrum semiovale. César Coats MD Chest X-Ray 11/08/17 0600 Signed Impressions: Service Date/Time: Wednesday, November 08, 2017 04:16 - CONCLUSION: Stable radiographic appearance most consistent with pulmonary edema. Antonio High Jr., MD Brain MRI 11/08/17 0000 Signed Impressions: Service Date/Time: Wednesday, November 08, 2017 14:49 - CONCLUSION: 1. 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 2. Nothing acute. Jj Alvarez MD Liver Ultrasound 11/07/17 0000 Signed Impressions: Service Date/Time: October 08:05 - CONCLUSION: 1. Heterogeneous liver suggestive of hepatocellular disease such as cirrhosis. There is a small amount of ascites surrounding the liver. This is not significantly changed compared to the recent CT scan of the abdomen. 2. Sludge in the gallbladder. No definite gallstones or biliary tract obstruction. 3. Mild splenomegaly. 4. Mild hydronephrosis of the right collecting system. Markie Crabtree MD Head CT 11/06/17 0000 Signed Impressions: Service Date/Time: Monday, November 06, 2017 10:03 - CONCLUSION: 1. No acute intracranial abnormality or significant interval change. César Coats MD Abdomen X-Ray 11/04/17 0000 Signed Impressions: Service Date/Time: Saturday, November 04, 2017 17:50 - CONCLUSION: Nonspecific intestinal gas pattern Jose Wright MD Abdomen/Pelvis CT 10/31/17 1321 Signed Impressions: Service Date/Time: October 13:58 - CONCLUSION: 1. Development of innumerable small sclerotic lesions in the skeleton most characteristic of sclerotic bony metastatic disease. There is a reported history of malignancy. 2. Hepatomegaly with development of mild ascites. 3. Persistent moderate hydronephrosis with perinephric stranding similar to February 2017. Interval development of mild anasarca. 4. Gallbladder sludge. Gallo catheter in bladder. Samuel Lin MD Lung Scan- Nuclear Medicine 10/31/17 0000 Signed Impressions: Service Date/Time: October 15:00 - CONCLUSION: Low probability scan for pulmonary embolism Jose Wright MD Physical Exam GENERAL: Awake and answering questions, NAD SKIN: Areas of Ecchymosis. No generalized rash HEAD: Atraumatic. Normocephalic. No temporal or scalp tenderness. EYES: Pupils equal round and reactive. Extraocular motions intact. No scleral icterus. No injection or drainage. ENT: NAD NECK: Trachea midline. Supple, nontender, no meningeal signs. CARDIOVASCULAR: HS audible. No murmur. RESPIRATORY: Clear to auscultation. Breath sounds decreased in the bases. GASTROINTESTINAL: Abdomen distended. Non tender. No guarding or rebound Incontinent of liquid dark stool MUSCULOSKELETAL: Extremities without clubbing, cyanosis, or edema. No joint tenderness, effusion, or edema noted. NEUR: Awake and following commands, answering all my questions Psych calm and cooperative Port site with no e.o infection. Assessment & Plan Remarks Severe sepsis present on admission, has improved New fever - likely due to C diff colitis - ?other source E. coli pyelonephritis with hydronephrosis with no evidence of obstruction per urology notes. He did urinary tract infection. No plans for stent placement. E. coli bacteremia appears to be transient and related to the E. coli pyelonephritis. Possible aspiration pneumonia on admission Acute metabolic encephalopathy likely secondary to sepsis, acute renal failure, cirrhosis (hepatic) - Dr Murillo concerned of cefepime causing the encephalopathy, abx switched to levaquine Acute renal failure on admission: prerenal, sepsis. -Improving Abnormal LFTs: sepsis, meds, cirrhosis. Leucocytosis, improving Colon cancer with suspected mets. Recs: Continue Zosyn IV Continue Oral Vanco for Cdiff. Discussed with RN regarding getting urine for UA and culture Follow temps Monitor progress Discussed with RN Spoke with at bedside Rosaura Hansen MD November 12, 2017 09:19
--- NOTE | 2017-11-12 09:55 | HHI.FPPN ---
Subjective Remarks Ms Marroquin requested ice chips about 5 times when we were in the room. She can talk now! She is remembering well and recovering. She remembered meeting Dr Santos and I and could answer questions about her history. Her questions were answered about her condition and expected course. She will have speech eval for po consumption today. Objective Vitals Vital Signs Date Time Temp Pulse Resp B/P (MAP) Pulse Ox O2 Delivery O2 Flow Rate FiO2 11/12/17 08:45 98 Nasal Cannula 2.00 11/12/17 08:00 77 11/12/17 08:00 99.8 75 27 135/61 (85) 100 11/12/17 07:00 99 Nasal Cannula 1.00 11/12/17 06:00 77 11/12/17 04:00 100.1 80 27 136/65 (88) 100 11/12/17 04:00 80 11/12/17 03:58 98 Nasal Cannula 2.00 11/12/17 02:00 81 11/12/17 00:00 82 11/12/17 00:00 100.1 82 20 116/56 (76) 99 11/11/17 23:10 98 Nasal Cannula 2.00 11/11/17 22:00 83 11/11/17 20:23 99 Nasal Cannula 2.00 11/11/17 20:00 99.8 92 22 174/91 (118) 99 11/11/17 20:00 92 11/11/17 19:00 100 Nasal Cannula 3.00 11/11/17 18:00 86 11/11/17 16:00 100.3 87 18 128/62 (84) 99 11/11/17 16:00 86 11/11/17 14:00 86 11/11/17 12:00 99.8 83 14 136/62 (86) 99 11/11/17 12:00 86 11/11/17 10:00 86 I/O 11/11/17 11/11/17 11/11/17 11/12/17 11/12/17 11/12/17 07:00 15:00 23:00 07:00 15:00 23:00 Intake Total 930 ml 750 ml 685 ml 1797 ml Output Total 1800 ml 2750 ml 1000 ml Balance -870 ml 750 ml -2065 ml 797 ml IV Total 250 ml 750 ml 1370 ml Tube Feeding 480 ml 485 ml 427 ml Other 200 ml 200 ml Output Urine Total 1400 ml 2400 ml 1000 ml Stool Total 400 ml 350 ml # Bowel Movements 2 Result Diagram: 11/12/1752411/12/17524 Objective Remarks GENERAL: This is a well-nourished, well-developed patient. Now alert and conversant. Still very weak with very little ability to raise especially her right arm but she can wiggle her fingers Eyes: No pupil asymmetry appreciated Skin: No visible lesions CARDIOVASCULAR: irregular rate and rhythm 3/6 murmur. Normal distal LE perfusion bilaterally RESPIRATORY: Normal rate. No focal congestion or wheezing to auscultation GASTROINTESTINAL: Abdomen soft, distended. Normal bowel sounds. MUSCULOSKELETAL: No calf asymmetry or pain to palpation NEUROLOGICAL: waking up. talkative and conversant and oriented A/P Assessment and Plan Patient is a 72-year-old admitted due to septic shock from urinary source; patient also with sclerotic bony lesions concerning for colon cancer metastasis. Due to respiratory decline/multiorgan failure, patient on ventilator 11/02. Critical care, Nephrology, and infectious disease consulted. Patient extubated ; has had altered mental status since extubation but improving 11/12 still very weak and considering rehab for her Discharge Planning Prognosis unclear at this time Critical Care managing at this time, appreciate care of patient Notably asserts patient is full code Problem List: (1) Sepsis ICD Codes: A41.9 - Sepsis, unspecified organism Status: Resolved Plan: Impression: Septic shock on admission; labs suggestive of multiorgan dysfunction. Patient with low MAP despite 4 L IVF Patient placed on Phenylephrine. Patient developed respiratory failure and required intubation Labs: Cr: 2.10 (10/31)-> 3.53 (11/04) -> 2.84 (11/05) -> 2.29-> 1.81 (11/07) -> 1.48 (11/08 ) -> 1.24 (11/11) WBC: 15.8 (10/31)-> 2.1 (11/02)-> 20.3 (11/03) -> 17.7 (11/04) -> 22.2 (11/06) -> 25 (11/07) -> 21.9 (11/08) -> 17.7 (11/11) Lactic acid: 3 (10/31) -> 3.3 (11/02) -Critical care consulted -Continue antibiotic therapy -Infectious disease consulted -Continue Zosyn 11/10 -Continue Vancomycin 125mg PO q 6hrs 11/10 -Nephrology consulted -Continue to monitor CBC, BMP, urine output -Continue to monitor VS; pressors discontinued and intermittent HTN Antibiotic history: s/p Meropenem 2gm q12hrs IV -s/p Zosyn 2.5mg q6hrs (10/31-11/02) -s/p Tobramycin IV x1 11/02 -s/p Rocephin 11/03-11/06 -s/p Cefepime 2gm IV BID -s/p Levofloxacin 11/10 Cultures: 11/05 -Sputum culture negative x48hrs 10/31- blood x2 taylor sensitive E Coli 10/31- urine- taylor sensitive E coli 11/02- blood x2- negative x5 days (2) ASH (acute kidney injury) ICD Codes: N17.9 - Acute kidney failure, unspecified Status: Acute Plan: 11/11: Cr 1.24 (improved from 1.34 11/10). Urine output 3400ml overnight Impression: renal injury presumed secondary to septic shock/multiorgan dysfunction Cr- 2.12 on admission-> 2.59 (11/02) -> 3.53 (11/04) -> downtending CT abdomen/pelvis- moderate hydronephrosis w/ perinephric stranding similar to . Interval development of mild anasarca. -Continue to monitor urine output w/ jacobsen -Nephrology consulted -Continue IVF (D5@ 100mls/hr), antibiotics -Continue to monitor urine output/BMP -Ca replacement -Urology consulted for hydronephrosis -Continue Jacobsen, antibiotics -Do not suspect obstruction; do not recommend stent placement -Recommend renal US next week (3) Elevated LFTs ICD Codes: R79.89 - Other specified abnormal findings of blood chemistry Status: Resolved Plan: Impression: Patient with normal LFT's on admission-> mild transaminase elevations: (11/02- TBILI 1.7, AST 122, ALT 62, ALKP 54 -> 11/07- TBILI 1.4, AST 77, ALT 122, ALKP65) Suspect likely related to sepsis/organ injury -Continue to monitor LFT's -Liver US per CC- heterogenous liver suggestive of hepatocellular disease such as cirrhosis. Small ascites; not recently changed since last CT. Sludge in gallbladder; no definite gallstones. Mild splenomegaly. Mild hydronephrosis -Ceftriaxone stopped per ID (4) UTI (urinary tract infection) ICD Codes: N39.0 - Urinary tract infection, site not specified Status: Resolved Plan: Impression: UA with large leukocyte esterase, innumerable WBCs, many WBC clumps Urine culture and blood cultures 10/31 with pansensitive E Coli -Management as above for sepsis (5) Hypertension ICD Codes: I10 - Essential (primary) hypertension Status: Chronic Plan: 11/07- persistent HTN Impression: PMH HTN. Initial hypotension on admission w/ septic shock. Now intermittent hypertension based on agitation/sedation -Continue to monitor; management per CC -Start Metoprolol 25mg q8 hrs -Hydralazine 20mg IV q4hrs PRN -Clonidine 0.2mg PRN -Labetalol 10mg IV q4hrs PRN critical care is signing off today as she is so improved (6) Atrial fibrillation ICD Codes: I48.91 - Unspecified atrial fibrillation Status: Chronic Plan: Impression: patient placed on amiodarone drip and given digoxin for afib with RVR on admission. Patient currently with normal rate/sinus rhythm. Patient with reported history of moderate mitral stenosis and mild/moderate aortic stenosis Echocardiogram- moderate concentric LVF. EF 70%. Aortic sclerosis present. Moderate /severe pulmonary HTN (60-70mmHg) Initially placed on heparin drip-> PO Amiodarone; currently on hold with sinus rhythm -Continue telemetry/monitoring VS -Continue IV heparin; plan to transition to Xarelto once normal renal function -Continue amiodarone as needed. 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 [id number]. s/p Zeloda 08/2016. Abdomen/Pelvis CT 10/31/17: Innumerable small sclerotic lesions in the skeleton, most characteristic of sclerotic bony metastatic disease -Dr. Candelario consulted -recent bone scan w/o uptake; reassuring regarding sclerotic lesions -plan for PET as outpatient -Continue heparin, treatment for sepsis (8) Weakness ICD Codes: R53.1 - Weakness Status: Acute Plan: -PT consulted; will evaluate once improving she is profoundly weak and will need rehab (9) Clostridium difficile infection ICD Codes: B96.89 - Other specified bacterial agents as the cause of diseases classified elsewhere Status: Acute Plan: Impression: Diarrhea; C diff toxin PCR + -Continue oral vancomycin 125mg q6hrs PO (10) Diabetes mellitus, type II ICD Codes: E11.9 - Type 2 diabetes mellitus Status: Chronic Plan: Will hold home medications -Low dose SSI, per Critical Care protocol -Continue to monitor blood sugar -Will change tube feeds to Glucerna (11) Hypothyroidism ICD Codes: E03.9 - Hypothyroidism Status: Chronic Plan: Continue home Levothyroxine (12) Altered mental state ICD Codes: R41.82 - Altered mental status, unspecified Status: Acute Plan: Impression: Persistent lack of orientation after extubation 11/05. No focal deficits. History of TIA. On Heparin anticoagulation Imaging: CT head 10/31 on admission (ordered due to confusion on admission; suspected secondary to sepsis) w/o acute findings. Remote lacunar infarct in right frontal white matter Repeat head CT 11/06 without acute intracranial abnormality MRI brain 11/08- chronic changes with some periventricular small vessel ischemic demyelination and old lacunar infarct at junction of R coronal radiata and centrum semiovale MRI brain 11/10- stable exam EEG- moderate encephalopathy with triphasic waveforms; possible she could have nonconvulsive seizures Labs: Leukocytosis. Some hypocalcemia. Normal sodium. Ammonia 76 11/06 -> 39 (11/08) -> 33 11/10 LFT elevations- 11/02-11/08- (TBILI mild elevation, mild AST and ALT elevations normal ALKP); subsequently normal values ABG 11/07- pH 7.34, CO2 37, HCO3 20 -Continue management per Critical care; suspect multifactorial. off of sedation since extubation. Suspect possible hepatic encephalopathy as component plus may have been uremic -Neurology consulted-appreciate recs -Likely metabolic encephalopathy -Antibiotic therapy changed to Zosyn to avoid possible encephalopathy from Cefepime -Continue IV Celebrex -Hyperammonemia -Continue Lactulose TID -rifaximin 550mg BID added -Monitor ammonia which dropped dramatically -Supportive care; monitor labs -Tube feeds due to altered mental status but getting assessed for diet today by speech -palliative care spoke to pt's yesterday as she has been through so many severe medical problems. he is optimistic as she is recovering (13) Positive JELANI (antinuclear antibody) ICD Codes: R76.8 - Other specified abnormal immunological findings in serum Plan: has speckled pattern and markedly positive. unclear at this point what the significance is. will ask for more information tomorrow. she will have elevated inflammatory markers now because of her infection and other illness she has currently. can determine by history if she may have lupus or another illness (14) FEN/PPX Plan: Fluid: Fluid per wind tunnel mechanic -50ml/hr NS -Albumin 25% q12 hrs should be able to stop this soon as she is so improved hemodynamically Electrolytes: Continue to monitor; replacement per protocol Nutrition: Tube feeds; will change from Jevity to Glucerna DVT PPX: Per CC, on heparin gtt at this time Problem Qualifiers (1) Sepsis: Qualified Codes: A41.9 - Sepsis, unspecified organism (2) UTI (urinary tract infection): (3) Hypertension: Qualified Codes: I10 - Essential (primary) hypertension (4) Atrial fibrillation: Qualified Codes: I48.2 - Chronic atrial fibrillation (5) Diabetes mellitus, type II: Qualified Codes: E11.8 - Type 2 diabetes mellitus with unspecified complications (6) Hypothyroidism: Qualified Codes: E03.9 - Hypothyroidism, unspecified Lydia Greenberg MD November 12, 2017 09:55
--- NOTE | 2017-11-12 10:06 | RADRPT ---
EXAM DATE: 11/12/2017 9:55 AM EDT AGE/SEX: 72 years / Female INDICATIONS: Evaluate for pneumonia. CLINICAL DATA: This is the patient's subsequent encounter. Patient reports that signs and symptoms h ave been present for 2 weeks and indicates a pain score of Nonresponsive. MEDICAL/SURGICAL HISTORY: Hypertension. Diabetes mellitus type II. Carcinoma, colon. A-Fib. Colon resection. Oophorectomy. COMPARISON: [facility] [place], CHEST SINGLE AP, 11/01/2017. . FINDINGS: Chest port is stable in position and is accessed. Nasogastric tube descends to the stomach . There is opacity at the left lung base obscuring left diaphragm. Mild central vascular congestion a nd interstitial prominence. Cardiac contours are grossly stable accounting for technique and projecti on. CONCLUSION: Slight interval worsening in aeration, particularly at the left lung base Electronically signed by: Jose Wright MD 11/12/2017 10:05 AM EDT
[2017-11-12 11:57] LABS: BILIRUBIN, URINE NEG (NEG); BLOOD, URINE MOD (NEG); GLUCOSE,URINE NEG (NEG); KETONE, URINE NEG (NEG); NITRITE,URINE NEG (NEG); PH, URINE 6.5 (5.0-8.5); URINE COLOR YELLOW (YELLW/STRAW); URINE LEUKOCYTE ESTERASE NEG (NEG)
[2017-11-12 12:06] LABS: BACTERIA, URINE RARE /hpf
--- NOTE | 2017-11-12 13:11 | HHI.PR ---
Review/Management Diagnosis/Plan: (1) Encephalopathy, metabolic ICD Codes: G93.41 - Metabolic encephalopathy Status: Acute Plan: Likely multifactorial metabolic in etiology secondary to renal failure, systemic inflammatory response syndrome, potentially medication Renal function has been improving, mild hyperammonemia EEG demonstrated moderate encephalopathy with triphasic waveforms; possible she could have some episodes of nonconvulsive seizures Continue IV Celebrex Recommendations consider repeat EEG in future pt is improving continue to follow exam Discussed with patient's spouse (2) ASH (acute kidney injury) ICD Codes: N17.9 - Acute kidney failure, unspecified Status: Acute Plan: Followed by the renal service (3) Hypertension ICD Codes: I10 - Essential (primary) hypertension Status: Chronic Plan: Per whiskey regauger (4) Atrial fibrillation with rapid ventricular response ICD Codes: I48.91 - Atrial fibrillation with rapid ventricular response Status: Chronic Plan: On anticoagulation (Geraldine Gore) Diagnosis/Plan: (1) Encephalopathy, metabolic ICD Codes: G93.41 - Metabolic encephalopathy Status: Acute Plan: Likely multifactorial metabolic in etiology secondary to renal failure, systemic inflammatory response syndrome, potentially medication Renal function has been improving, mild hyperammonemia EEG demonstrated moderate encephalopathy with triphasic waveforms; possible she could have some episodes of nonconvulsive seizures Continue IV Celebrex Recommendations Corrected Dilantin 8.3, albumin 2.5 measured phenytoin 5.3 Will increase dose pt is improving continue to follow exam Discussed with patient's spouse Discussed with PA. Agree with above. (Jose Eduardo Snell MD) Subjective Subjective Comments Per pt nurse and , pt became more alert yesterday. She is answering questions. Still with difficulty moving. No witnessed seizures. Had swallow eval. Active Medications Current Medications Medications (Trade) Dose Ordered Sig/Chiqui Route Start Time Stop Time Status Last Admin (Cordarone) 200 mg DAILY PO 11/01/17 09:00 Future hold 11/12/17 08:15 (PROzac) 20 mg DAILY PO 11/01/17 09:00 11/12/17 08:16 (Synthroid) 50 mcg DAILY@0600 PO 11/01/17 06:00 11/12/17 05:43 (Pravachol) 40 mg DAILY PO 11/01/17 09:00 Future Hold 11/08/17 08:36 (Xarelto) 20 mg DAILY PO 11/01/17 09:00 Future Hold (Effexor Xr) 75 mg DAILY PO 11/01/17 09:00 11/12/17 08:15 (NS Flush) 2 ml UNSCH PRN IV FLUSH 10/31/17 15:30 (NS Flush) 2 ml BID IV FLUSH 10/31/17 21:00 11/12/17 09:00 (Tylenol) 650 mg Q4H PRN PO 10/31/17 15:30 11/01/17 19:50 (Narcan Inj) 0.4 mg UNSCH PRN IV PUSH 10/31/17 15:30 (Elsa-Colace) 1 tab BID PO 10/31/17 21:00 11/12/17 08:16 (Milk Of Magnesia Liq) 30 ml Q12H PRN PO 10/31/17 15:30 (Senokot) 17.2 mg Q12H PRN PO 10/31/17 15:30 11/04/17 08:19 (Dulcolax Supp) 10 mg DAILY PRN RECTAL 10/31/17 15:30 (Glucagon Inj) 1 mg UNSCH PRN OTHER 10/31/17 15:30 (Zofran Odt) 4 mg Q6H PRN PO 10/31/17 15:30 11/07/17 20:48 Acetaminophen 100 ml @ 400 mls/hr Q6H PRN IV 10/31/17 17:15 11/12/17 00:02 ([facility] Information) Patient in critical care unit? Ass... [id number] .XX 10/31/17 23:15 10/31/17 23:15 (Brethine Inj) 1 mg UNSCH PRN SQ 10/31/17 23:30 Heparin Sodium/ Dextrose 250 ml @ 10 mls/hr TITRATE PRN IV 11/01/17 09:00 11/12/17 05:41 Albumin Human 50 ml @ 60 mls/hr Q12H IV 11/01/17 09:00 11/12/17 08:17 (Crewe 5-325 Mg) 1 tab Q4H PRN PO 11/01/17 13:15 11/12/17 08:16 (Pyridium) 100 mg Q8H PRN PO 11/01/17 13:45 (Restoril) 15 mg HS PRN PO 11/01/17 22:00 5/11/18 22:43 (Peridex 0.12% Liq) 15 ml BID@08,20 MT 11/02/17 08:00 11/12/17 08:00 (Trandate Inj) 10 mg Q4H PRN IV PUSH 11/05/17 10:45 11/11/17 21:25 (Apresoline Inj) 20 mg Q4H PRN IV PUSH 11/06/17 07:30 11/09/17 05:18 Potassium Chloride 100 ml @ 50 mls/hr Q2H PRN IV 11/07/17 07:45 11/12/17 09:11 Potassium Chloride 100 ml @ 50 mls/hr Q2H PRN IV 11/07/17 07:45 11/09/17 07:25 (K-Lyte Cl Eff) 50 meq UNSCH PRN PO 11/07/17 07:45 11/08/17 17:55 Potassium Chloride 100 ml @ 25 mls/hr UNSCH PRN IV 11/07/17 07:45 11/08/17 08:35 Potassium Chloride 100 ml @ 50 mls/hr Q2H PRN IV 11/07/17 07:45 Magnesium Sulfate 4 gm/Sodium Chloride 100 ml @ 50 mls/hr UNSCH PRN IV 11/07/17 07:45 (Mag-Ox) 800 mg UNSCH PRN PO 11/07/17 07:45 Magnesium Sulfate 2 gm/Sodium Chloride 100 ml @ 50 mls/hr UNSCH PRN IV 11/07/17 07:45 (K-Phos) 2,000 mg Q4H PRN PO 11/07/17 07:45 Sodium Phosphate 30 mmol/Sodium Chloride 250 ml @ 42 mls/hr UNSCH PRN IV 11/07/17 07:45 (K-Phos) 2,000 mg UNSCH PRN PO/TUBE 11/07/17 07:45 Potassium Phosphate 30 mmol/ Sodium Chloride 260 ml @ 42 mls/hr UNSCH PRN IV 11/07/17 07:45 (Lopressor) 25 mg Q8HR PO 11/07/17 07:45 11/12/17 05:43 (Xifaxan) 550 mg BID PO 11/07/17 21:00 11/12/17 08:16 (Duoneb Neb) 1 ampule Q6HR NEB NEB 11/09/17 10:30 11/12/17 08:45 (Cerebyx Inj) 200 mgpe Q12H IV 11/10/17 02:00 11/12/17 02:42 Piperacillin Sod/ Tazobactam Sod 50 ml @ 100 mls/hr Q6H IV 11/10/17 15:00 11/12/17 08:15 (Lactulose Liq) 30 ml Q6H PO 11/10/17 21:00 11/12/17 02:42 Sodium Chloride 38.5 meq/Sterile Water 1,009.625 ml @ 60 mls/hr [id number] IV 11/10/17 18:15 11/12/17 02:42 (Provigil) 200 mg DAILY PO 11/11/17 09:00 11/12/17 08:16 (D50w (Vial) Inj) 25 ml UNSCH PRN IV PUSH 11/10/17 18:15 (NovoLIN R SUPPLEMENTAL SCALE) 1 Q4HR SQ 11/10/17 20:00 11/12/17 08:00 (Levemir Inj) 10 units HS SQ 11/10/17 21:00 11/11/17 20:34 (VANCOMYCIN for oral use only) 125 mg Q6H PO 11/10/17 22:00 11/12/17 10:00 Allergies Allergies Coded Allergies Sulfa (Sulfonamide Antibiotics) (Verified Allergy, Severe, 10/31/17) codeine (Verified Allergy, Severe, Nausea/Vomiting, 10/31/17) Uncoded Allergies METAL ( Allergy, Intermediate, hives, 03/08/16) SURGICAL STEEL ( Allergy, Intermediate, hives, 03/08/16) (Geraldine Gore) Review of Systems All other ROS: ROS reviewed as documented in chart, Unable to obtain (Geraldine Gore) Exam I&O / VS Vital Signs Date Time Temp Pulse Resp B/P (MAP) Pulse Ox O2 Delivery O2 Flow Rate FiO2 11/12/17 10:00 77 11/12/17 08:45 98 Nasal Cannula 2.00 11/12/17 08:00 77 11/12/17 08:00 99.8 75 27 135/61 (85) 100 11/12/17 07:00 99 Nasal Cannula 1.00 11/12/17 06:00 77 11/12/17 04:00 100.1 80 27 136/65 (88) 100 11/12/17 04:00 80 11/12/17 03:58 98 Nasal Cannula 2.00 11/12/17 02:00 81 11/12/17 00:00 82 11/12/17 00:00 100.1 82 20 116/56 (76) 99 11/11/17 23:10 98 Nasal Cannula 2.00 11/11/17 22:00 83 11/11/17 20:23 99 Nasal Cannula 2.00 11/11/17 20:00 99.8 92 22 174/91 (118) 99 11/11/17 20:00 92 11/11/17 19:00 100 Nasal Cannula 3.00 11/11/17 18:00 86 11/11/17 16:00 100.3 87 18 128/62 (84) 99 11/11/17 16:00 86 11/11/17 14:00 86 Eye: PERRL, EOMI Cardiology: Regular Rhythm Neurologic: Alert, Oriented Psychiatric: Cooperative Exam Comments alert, knows her name and her , knows , unsure of current date, pupils 2-3mm sluggish but reactive, no facial asymmetry, moving toes and fingers , able to shrug shoulders, 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, notes sensory equal to light touch anya LE, (Geraldine Gore) Objective Micro and Labs Laboratory Tests Test 11/11/17 23:49 11/12/17 05:25 11/12/17 10:45 Potassium Level 3.5 3.2 White Blood Count 15.9 Red Blood Count 3.46 Hemoglobin 9.0 Hematocrit 28.5 Mean Corpuscular Volume 82.2 Mean Corpuscular Hemoglobin 25.9 Mean Corpuscular Hemoglobin Concent 31.5 Red Cell Distribution Width 18.9 Platelet Count 137 Mean Platelet Volume 9.0 Neutrophils (%) (Auto) 85.5 Lymphocytes (%) (Auto) 6.3 Monocytes (%) (Auto) 5.9 Eosinophils (%) (Auto) 2.1 Basophils (%) (Auto) 0.2 Neutrophils # (Auto) 13.6 Lymphocytes # (Auto) 1.0 Monocytes # (Auto) 0.9 Eosinophils # (Auto) 0.3 Basophils # (Auto) 0.0 CBC Comment DIFF FINAL Differential Comment Activated Partial Thromboplast Time 45.0 Blood Urea Nitrogen 21 Creatinine 1.08 Random Glucose 160 Total Protein 6.4 Albumin 2.5 Calcium Level 7.6 Alkaline Phosphatase 196 Aspartate Amino Transf (AST/SGOT) 60 Alanine Aminotransferase (ALT/SGPT) 41 Total Bilirubin 0.8 Sodium Level 148 Chloride Level 112 Carbon Dioxide Level 27.3 Anion Gap 9 Estimat Glomerular Filtration Rate 50 Phenytoin (Dilantin) Level 5.3 Urine Color YELLOW Urine Turbidity CLEAR Urine pH 6.5 Urine Specific [place] 1.017 Urine Protein 100 Urine Glucose (UA) NEG Urine Ketones NEG Urine Occult Blood MOD Urine Nitrite NEG Urine Bilirubin NEG Urine Urobilinogen 0.2 Urine Leukocyte Esterase NEG Urine RBC 2 Urine WBC 5 Urine Bacteria RARE Urine Yeast (Budding) MANY Microscopic Urinalysis Comment CATH-CULTURE IND Date/Time Source Procedure Growth Status 11/12/17 09:45 Blood Peripheral Aerobic Blood Culture Pending Received 11/12/17 09:45 Blood Peripheral Anaerobic Blood Culture Pending Received 11/01/17 20:00 Stool Stool Stool Occult Blood (NANI) - Final HEMOCCULT NEGATIVE Complete 11/05/17 10:58 Sputum Endotracheal Gram Stain - Final Complete 11/05/17 10:58 Sputum Endotracheal Sputum Culture - Final NO GROWTH IN 48 HOURS. Complete 11/12/17 10:45 Urine Catheterized Urine Urine Culture Pending Received (Geraldine Gore) Problem Qualifiers (1) Hypertension: Qualified Codes: I10 - Essential (primary) hypertension Geraldine Gore November 12, 2017 13:11 Jose Eduardo Snell MD November 12, 2017 16:05
--- NOTE | 2017-11-12 14:19 | HHI.NPPN ---
Subjective General Problems: Anemia, Edema, Hypotension, Mebatolic Acidosis Renal Failure: Acute History of Present Illness 72-year-old female with past medical history of hypertension, diabetes mellitus, hyperlipidemia, atrial fibrillation, history of colon cancer, history of acute kidney injury in the past. She was admitted with complaint of worsening shortness of breath and recurrent falls. I was called to see the patient because of elevated BUN and creatinine. The patient was seen by me when she was here in February of last year. At that time, she also has acute kidney injury and her creatinine was as high as 1.8, but it was improving and it went down to 0.6-0.7 which is her baseline. Additional Remarks Mental status improving. Responding to questions. (Nataly Ramos) Objective Data Data Vital Signs Date Time Temp Pulse Resp B/P (MAP) Pulse Ox O2 Delivery O2 Flow Rate FiO2 11/12/17 10:00 77 11/12/17 08:45 98 Nasal Cannula 2.00 11/12/17 08:00 77 11/12/17 08:00 99.8 75 27 135/61 (85) 100 11/12/17 07:00 99 Nasal Cannula 1.00 11/12/17 06:00 77 11/12/17 04:00 100.1 80 27 136/65 (88) 100 11/12/17 04:00 80 11/12/17 03:58 98 Nasal Cannula 2.00 11/12/17 02:00 81 11/12/17 00:00 82 11/12/17 00:00 100.1 82 20 116/56 (76) 99 11/11/17 23:10 98 Nasal Cannula 2.00 11/11/17 22:00 83 11/11/17 20:23 99 Nasal Cannula 2.00 11/11/17 20:00 99.8 92 22 174/91 (118) 99 11/11/17 20:00 92 11/11/17 19:00 100 Nasal Cannula 3.00 11/11/17 18:00 86 11/11/17 16:00 100.3 87 18 128/62 (84) 99 11/11/17 16:00 86 (Nataly Ramos) -: 11/12/17 0525 11/12/17 0525 Microbiology 11/12/17 Aerobic Blood Culture, Received Pending 11/12/17 Anaerobic Blood Culture, Received Pending 11/12/17 Aerobic Blood Culture, Received Pending 11/12/17 Anaerobic Blood Culture, Received Pending 11/12/17 Urine Culture, Received Pending Tubes & Lines: Gallo (Nataly Ramos) Physical Exam General Appearance: No Acute Distress, Comfortable (Nataly Ramos [employer]) Eyes Eye Exam: Pupils Equal (Nataly Ramos [employer]) Throat Throat Exam: Oral Mucosa [place] & Moist (Nataly Ramos [employer]) Neck Neck Exam: Neck Supple (Nataly Ramos [employer]) Pulmonary Resp Exam: Rhonchi, Sputum, Decreased Bases, Diminished Breath Sounds, Poor Inspiratory Effort (Nataly RamosP) Cardiology CV Exam: Irregular (Nataly Ramos [employer]) Gastrointestinal/Abdomen GI Exam: Soft, Non-Tender, Bowel Sounds Present, Distended (Nataly RamosP) Extremeties Extremities Exam: Moderate Edema, Dependent Edema (Nataly Ramos [employer]) Neurologic Neuro Exam: Alert, Awake (Nataly RamosP) Assessment/Plan Assessment Summary: ASH/Acute Renal Failure Problem List: (1) Diabetes mellitus, type II ICD Codes: E11.9 - Type 2 diabetes mellitus Status: Chronic (2) PNA (pneumonia) ICD Codes: J18.9 - Pneumonia, unspecified organism Status: Acute (3) Hypothyroidism ICD Codes: E03.9 - Hypothyroidism Status: Chronic (4) Atrial fibrillation ICD Codes: I48.91 - Unspecified atrial fibrillation Status: Chronic (5) Acute kidney failure ICD Codes: N17.9 - Acute kidney failure, unspecified (6) UTI (urinary tract infection) ICD Codes: N39.0 - Urinary tract infection, site not specified Status: Resolved (7) Sepsis due to Gram-negative organism with septic shock ICD Codes: A41.50 - Gram-negative sepsis, unspecified; R65.21 - Severe sepsis with septic shock Status: Resolved Plan More alert today and responding to questions. Creatinine improving : 1.48 -> 1.46 -> 1.34 ->1.08 today Good Urinary output Continue antibiotics. Avoid Nephrotoxins, and follow the BMP. With creatinine improving Nephrology will sign off, reconsult if needed. (Nataly Ramos) Plan Patient seen and examined, agree with above. Creatinine improving, will sign off from Nephrology. (Aixa Figueroa MD) Problem Qualifiers (1) Diabetes mellitus, type II: Qualified Codes: E11.8 - Type 2 diabetes mellitus with unspecified complications (2) Hypothyroidism: Qualified Codes: E03.9 - Hypothyroidism, unspecified (3) Atrial fibrillation: Qualified Codes: I48.2 - Chronic atrial fibrillation (4) UTI (urinary tract infection): Nataly Ramos November 12, 2017 14:19 Aixa Figueroa MD November 14, 2017 00:06
--- NOTE | 2017-11-12 15:21 | HHI.HCPN ---
Reason for visit a. To assist with evaluation and management of symptoms including: Encephalopathy, dyspnea b. To assist medical decision maker(s) with: better understanding of current medical conditions; weighing benefits/burdens of medical treatment options; making medical treatment decisions. Subjective/Interval History Patient seen today to follow-up on symptoms of encephalopathy and dyspnea. Neurologically, much improved today. She is awake, alert, oriented and eating a popsicle. Her speech is clear and fluent, thoughts are organized. She is able to make her needs known and shows good insight into her medical condition. She states [facility], where she was previously seen for therapy, with which her agrees. She remains moderately tachypneic with respiratory rates of 27 on 1-2 L nasal cannula. Review of vital signs shows a pattern of tachypnea up to 40 breaths per minute throughout her admission. Her respiratory status remains fragile although improving. Respiratory rate increases with activity. When sitting on the side of the bed today her respiratory rate was noted to be significantly increased, necessitating her to return to a resting position. She is saturating well on pulse oximetry. Chest x-ray shows slight interval worsening in aeration, particularly at the left lung base. . Family/friend interactions Her is at bedside and agrees with her that discharge to [facility] is their optimal discharge plan with hopes to improve her physical stamina and ambulation status to be able to return home. He is pleased with her progress and very encouraged that she is now awake and able to talk to him. Plan is to follow-up with oncology once discharged from [facility] to complete PET scan and evaluate bony lesions seen on previous CT, which were suspicious for malignancy. . Advance Directives Living Will: Never completed Health Care Surrogate: Never completed Durable Power of Grooving Machine Operator: Never completed Advance Directive Specifics Date completed: Not completed. . Health Care Surrogate(s): None named. . Documented care wishes: No living will available. . Objective Vital Signs Date Time Temp Pulse Resp B/P (MAP) Pulse Ox O2 Delivery O2 Flow Rate FiO2 11/12/17 14:00 77 11/12/17 12:00 77 11/12/17 12:00 77 11/12/17 12:00 99.8 72 27 176/73 (107) 100 11/12/17 10:00 77 11/12/17 08:45 98 Nasal Cannula 2.00 5/22/18 08:00 77 11/12/17 08:00 99.8 75 27 135/61 (85) 100 11/12/17 07:00 99 Nasal Cannula 1.00 11/12/17 06:00 77 11/12/17 04:00 100.1 80 27 136/65 (88) 100 11/12/17 04:00 80 11/12/17 03:58 98 Nasal Cannula 2.00 11/12/17 02:00 81 11/12/17 00:00 82 11/12/17 00:00 100.1 82 20 116/56 (76) 99 11/11/17 23:10 98 Nasal Cannula 2.00 11/11/17 22:00 83 11/11/17 20:23 99 Nasal Cannula 2.00 11/11/17 20:00 99.8 92 22 174/91 (118) 99 11/11/17 20:00 92 11/11/17 19:00 100 Nasal Cannula 3.00 11/11/17 18:00 86 11/11/17 16:00 100.3 87 18 128/62 (84) 99 11/11/17 16:00 86 Intake & Output 11/12/17 11/12/17 07:00 19:00 Intake Total 1797 ml Output Total 1000 ml Balance 797 ml IV Total 1370 ml Tube Feeding 427 ml Output Urine Total 1000 ml # Bowel Movements 2 Physical Exam CONSTITUTIONAL/GENERAL: This is an adequately nourished patient, in no apparent distress. TUBES/LINES/DRAINS: Right subclavian port, bilateral PIV's, Gallo, rectal drain. SKIN: No jaundice, rashes, or lesions. Ecchymoses on upper extremities. No wounds seen anteriorly. Skin temperature appropriate. Not diaphoretic. HEAD: Atraumatic. Normocephalic. EYES: Pupils equal and round and reactive. Extraocular motions intact. No scleral icterus. No injection or drainage. Fundi not examined. ENT: . Nose without bleeding or purulent drainage. Throat without visible erythema, exudates, masses, or lesions. NECK: Trachea midline. Supple, nontender. No palpable thyroid enlargement or nodularity. CARDIOVASCULAR: S1, S2, irregular rhythm, controlled rate, 2/6 systolic ejection murmur, no rub no gallop. RESPIRATORY/CHEST: Lungs sounds are clear, symmetric expansion, tachypneic, shallow breaths. GASTROINTESTINAL: Abdomen mildly distended, nontender to palpation. GENITOURINARY: Without palpable bladder distension. Gallo catheter in place. MUSCULOSKELETAL: Extremities without clubbing or cyanosis. 1+ dependent edema. No mottling or clubbing. LYMPHATICS: No palpable cervical or supraclavicular adenopathy. NEUROLOGICAL: Alert, oriented 4, moving all extremities to command with equal strength and purpose. PSYCHIATRIC: Calm, appropriate. . Diagnostic Tests Laboratory Laboratory Tests Test 11/09/17 20:15 11/10/17 04:15 11/10/17 14:51 11/10/17 14:57 Activated Partial Thromboplast Time 52.2 SEC (24.3-30.1) 56.7 SEC (24.3-30.1) White Blood Count 19.0 TH/MM3 (4.0-11.0) Red Blood Count 3.58 MIL/MM3 (4.00-5.30) Hemoglobin 9.4 GM/DL (11.6-15.3) Hematocrit 29.6 % (35.0-46.0) Mean Corpuscular Volume 82.8 FL (80.0-100.0) Mean Corpuscular Hemoglobin 26.4 PG (27.0-34.0) Mean Corpuscular Hemoglobin Concent 31.8 % (32.0-36.0) Red Cell Distribution Width 18.5 % (11.6-17.2) Platelet Count 166 TH/MM3 (150-450) Mean Platelet Volume 9.2 FL (7.0-11.0) Neutrophils (%) (Auto) 89.0 % (16.0-70.0) Lymphocytes (%) (Auto) 6.3 % (9.0-44.0) Monocytes (%) (Auto) 4.2 % (0.0-8.0) Eosinophils (%) (Auto) 0.4 % (0.0-4.0) Basophils (%) (Auto) 0.1 % (0.0-2.0) Neutrophils # (Auto) 16.9 TH/MM3 (1.8-7.7) Lymphocytes # (Auto) 1.2 TH/MM3 (1.0-4.8) Monocytes # (Auto) 0.8 TH/MM3 (0-0.9) Eosinophils # (Auto) 0.1 TH/MM3 (0-0.4) Basophils # (Auto) 0.0 TH/MM3 (0-0.2) CBC Comment AUTO DIFF Differential Total Cells Counted 100 Neutrophils % (Manual) 82 % (16-70) Band Neutrophils % 2 % (0-6) Lymphocytes % 4 % (9-44) Monocytes % 4 % (0-8) Eosinophils % 1 % (0-4) Neutrophils # (Manual) 17.3 TH/MM3 (1.8-7.7) Metamyelocytes 2 % (0-1) Myelocytes 4 % (0-0) Promyelocytes 1 % (0-0) Differential Comment FINAL DIFF MANUAL Platelet Estimate NORMAL (NORMAL) Platelet Morphology Comment NORMAL (NORMAL) Polychromasia 2.4 % (0.0-1.9) Basophilic Stippling MOD (NORMAL) Blood Urea Nitrogen 27 MG/DL (7-18) Creatinine 1.34 MG/DL (0.50-1.00) Random Glucose 341 MG/DL (74-106) Total Protein 7.1 GM/DL (6.4-8.2) Albumin 2.9 GM/DL (3.4-5.0) Calcium Level 7.7 MG/DL (8.5-10.1) Phosphorus Level 2.6 MG/DL (2.5-4.9) Magnesium Level 1.6 MG/DL (1.5-2.5) Alkaline Phosphatase 103 U/L (45-117) Aspartate Amino Transf (AST/SGOT) 23 U/L (15-37) Alanine Aminotransferase (ALT/SGPT) 43 U/L (10-53) Total Bilirubin 0.9 MG/DL (0.2-1.0) Sodium Level 148 MEQ/L (136-145) Potassium Level 3.1 MEQ/L (3.5-5.1) 3.5 MEQ/L (3.5-5.1) Chloride Level 114 MEQ/L (98-107) Carbon Dioxide Level 24.0 MEQ/L (21.0-32.0) Anion Gap 10 MEQ/L (5-15) Estimat Glomerular Filtration Rate 39 ML/MIN (>89) Ammonia 33 MCMOL/L (11-32) Phenytoin (Dilantin) Level 9.7 MCG/ML (10.0-20.0) Stool C. difficile Toxin (PCR) POSITIVE (NEGATIVE) Stl C. difficile Toxin Epiderm 027 PRESUMPTIVE NEGATIVE Test 11/11/17 04:00 11/11/17 23:49 11/12/17 05:25 11/12/17 10:45 White Blood Count 17.7 TH/MM3 (4.0-11.0) 15.9 TH/MM3 (4.0-11.0) Red Blood Count 3.51 MIL/MM3 (4.00-5.30) 3.46 MIL/MM3 (4.00-5.30) Hemoglobin 9.1 GM/DL (11.6-15.3) 9.0 GM/DL (11.6-15.3) Hematocrit 29.3 % (35.0-46.0) 28.5 % (35.0-46.0) Mean Corpuscular Volume 83.3 FL (80.0-100.0) 82.2 FL (80.0-100.0) Mean Corpuscular Hemoglobin 26.0 PG (27.0-34.0) 25.9 PG (27.0-34.0) Mean Corpuscular Hemoglobin Concent 31.3 % (32.0-36.0) 31.5 % (32.0-36.0) Red Cell Distribution Width 18.9 % (11.6-17.2) 18.9 % (11.6-17.2) Platelet Count 154 TH/MM3 (150-450) 137 TH/MM3 (150-450) Mean Platelet Volume 9.2 FL (7.0-11.0) 9.0 FL (7.0-11.0) Neutrophils (%) (Auto) 88.8 % (16.0-70.0) 85.5 % (16.0-70.0) Lymphocytes (%) (Auto) 5.9 % (9.0-44.0) 6.3 % (9.0-44.0) Monocytes (%) (Auto) 4.4 % (0.0-8.0) 5.9 % (0.0-8.0) Eosinophils (%) (Auto) 0.8 % (0.0-4.0) 2.1 % (0.0-4.0) Basophils (%) (Auto) 0.1 % (0.0-2.0) 0.2 % (0.0-2.0) Neutrophils # (Auto) 15.7 TH/MM3 (1.8-7.7) 13.6 TH/MM3 (1.8-7.7) Lymphocytes # (Auto) 1.0 TH/MM3 (1.0-4.8) 1.0 TH/MM3 (1.0-4.8) Monocytes # (Auto) 0.8 TH/MM3 (0-0.9) 0.9 TH/MM3 (0-0.9) Eosinophils # (Auto) 0.1 TH/MM3 (0-0.4) 0.3 TH/MM3 (0-0.4) Basophils # (Auto) 0.0 TH/MM3 (0-0.2) 0.0 TH/MM3 (0-0.2) CBC Comment DIFF FINAL DIFF FINAL Differential Comment Activated Partial Thromboplast Time 42.2 SEC (24.3-30.1) 45.0 SEC (24.3-30.1) Blood Urea Nitrogen 22 MG/DL (7-18) 21 MG/DL (7-18) Creatinine 1.24 MG/DL (0.50-1.00) 1.08 MG/DL (0.50-1.00) Random Glucose 266 MG/DL (74-106) 160 MG/DL (74-106) Total Protein 6.5 GM/DL (6.4-8.2) 6.4 GM/DL (6.4-8.2) Albumin 2.6 GM/DL (3.4-5.0) 2.5 GM/DL (3.4-5.0) Calcium Level 7.7 MG/DL (8.5-10.1) 7.6 MG/DL (8.5-10.1) Phosphorus Level 2.2 MG/DL (2.5-4.9) Magnesium Level 1.6 MG/DL (1.5-2.5) Alkaline Phosphatase 117 U/L (45-117) 196 U/L (45-117) Aspartate Amino Transf (AST/SGOT) 29 U/L (15-37) 60 U/L (15-37) Alanine Aminotransferase (ALT/SGPT) 37 U/L (10-53) 41 U/L (10-53) Total Bilirubin 0.7 MG/DL (0.2-1.0) 0.8 MG/DL (0.2-1.0) Sodium Level 147 MEQ/L (136-145) 148 MEQ/L (136-145) Potassium Level 3.1 MEQ/L (3.5-5.1) 3.5 MEQ/L (3.5-5.1) 3.2 MEQ/L (3.5-5.1) Chloride Level 113 MEQ/L (98-107) 112 MEQ/L (98-107) Carbon Dioxide Level 24.0 MEQ/L (21.0-32.0) 27.3 MEQ/L (21.0-32.0) Anion Gap 10 MEQ/L (5-15) 9 MEQ/L (5-15) Estimat Glomerular Filtration Rate 43 ML/MIN (>89) 50 ML/MIN (>89) Phenytoin (Dilantin) Level 8.7 MCG/ML (10.0-20.0) 5.3 MCG/ML (10.0-20.0) Urine Color YELLOW (YELLW/STRAW) Urine Turbidity CLEAR (CLEAR) Urine pH 6.5 (5.0-8.5) Urine Specific [place] 1.017 (1.002-1.035) Urine Protein 100 mg/dL (NEG-TRACE) Urine Glucose (UA) NEG mg/dL (NEG) Urine Ketones NEG mg/dL (NEG) Urine Occult Blood MOD (NEG) Urine Nitrite NEG (NEG) Urine Bilirubin NEG (NEG) Urine Urobilinogen 0.2 MG/DL (LESS THAN Urine Leukocyte Esterase NEG (NEG) Urine RBC 2 /hpf (0-3) Urine WBC 5 /hpf (0-5) Urine Bacteria RARE /hpf (NONE) Urine Yeast (Budding) MANY (NONE) Microscopic Urinalysis Comment CATH-CULTURE IND Result Diagram: 11/12/17 0525 11/12/17 0525 Microbiology Microbiology Date/Time Source Procedure Growth Status 11/12/17 09:45 Blood Peripheral Aerobic Blood Culture Pending Received 11/12/17 09:45 Blood Peripheral Anaerobic Blood Culture Pending Received 11/12/17 09:40 Blood Peripheral Aerobic Blood Culture Pending Received 11/12/17 09:40 Blood Peripheral Anaerobic Blood Culture Pending Received 11/12/17 10:45 Urine Catheterized Urine Urine Culture Pending Received Imaging Last Impressions Chest X-Ray 11/12/17 0000 Signed Impressions: CONCLUSION: Slight interval worsening in aeration, particularly at the left ritika g base Brain MRI 11/10/17 0000 Signed Impressions: Service Date/Time: Friday, November 10, 2017 14:00 - CONCLUSION: 1. Stable examination. Specifically, no acute infarction, hemorrhage or mass. 2. Senescent changes with periventricular white matter ischemic demyelination and focal lacunar type infarct in the right centrum semiovale. César Coats MD Liver Ultrasound 11/07/17 0000 Signed Impressions: Service Date/Time: October 08:05 - CONCLUSION: 1. Heterogeneous liver suggestive of hepatocellular disease such as cirrhosis. There is a small amount of ascites surrounding the liver. This is not significantly changed compared to the recent CT scan of the abdomen. 2. Sludge in the gallbladder. No definite gallstones or biliary tract obstruction. 3. Mild splenomegaly. 4. Mild hydronephrosis of the right collecting system. Markie Crabtree MD Head CT 11/06/17 0000 Signed Impressions: Service Date/Time: Monday, November 06, 2017 10:03 - CONCLUSION: 1. No acute intracranial abnormality or significant interval change. César Coats MD Abdomen X-Ray 11/04/17 0000 Signed Impressions: Service Date/Time: Saturday, November 04, 2017 17:50 - CONCLUSION: Nonspecific intestinal gas pattern Jose Wright MD Abdomen/Pelvis CT 10/31/17 1321 Signed Impressions: Service Date/Time: October 13:58 - CONCLUSION: 1. Development of innumerable small sclerotic lesions in the skeleton most characteristic of sclerotic bony metastatic disease. There is a reported history of malignancy. 2. Hepatomegaly with development of mild ascites. 3. Persistent moderate hydronephrosis with perinephric stranding similar to February 2017. Interval development of mild anasarca. 4. Gallbladder sludge. Gallo catheter in bladder. Samuel Lin MD Lung Scan-V Nuclear Medicine 10/31/17 0000 Signed Impressions: Service Date/Time: October 15:00 - CONCLUSION: Low probability scan for pulmonary embolism Jose Wright MD Procedures 11/02: Intubation . Assessment and Plan Disease Oriented Problem List: (1) Physical deconditioning (2) Sepsis due to Gram-negative organism with septic shock (3) Atrial fibrillation with rapid ventricular response (4) Respiratory failure (5) Diabetes mellitus, type II (6) Acute kidney failure Symptom Scale: (1) Encephalopathy 0-10 Scale: Unable to quantify (Patient nonverbal. 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 She was very active in community affairs up until her diagnosis of colon cancer. She has been to her for over 40 years. Spiritual: She identifies with the Caodaism kamala. Legal: Voluntary admission, no noted legal issues. Ethical issues impacting care: None noted. . Important Contacts Spouse: Janel Marroquin Son: Jose Rafael Marroquin . Prognosis Her prognosis is poor. She has had recurrent sepsis and has multiple bony lesions seen on CT scan suspicious for bony metastasis. She has a history of high risk colon cancer status post colon resection and chemotherapy with Xeloda , completed 09/07. She is now encephalopathic and has required intubations on several admissions. She was too weak to stand upon admission and has undergone rehabilitative therapy at [facility] at previous admissions. She will likely require rehabilitative therapy again, if she survives this admission. She is at high risk for recurrent sepsis, complications decline and recurrent hospital admissions. . Code Status: Full Code Plan PLAN: Legal decision maker: At this time the patient is not capacitated to make decisions as she is encephalopathic and nonverbal. To the 's knowledge no healthcare surrogate has been completed and so by [place] statutes he would be the legal proxy decision-maker. He does have 2 sons which would be the next tier decision-makers if he were unable to serve. Goals: Aggressive CODE STATUS: FULL CODE SYMPTOMS: * Encephalopathy: Alert, oriented 4 today, speech clear, much improved. Shows good insight into her medical condition and clearly states her plan to go to [facility] rehab upon discharge. Her diet resumed today and she was able to assist in eating by herself but continues to receive tube feeding until adequate caloric intake is achieved. No further interventions required at this time. * Dyspnea: Her respiratory status continues to be fragile. She was previously intubated from 11/02 through 11/05. Her chest x-ray shows pulmonary edema with worsening at the left lung base. DuoNeb is available and scheduled every 6 hours. She remains at risk for reintubation, to which her would agree. She is showing some tachypnea. Would support aggressive pulmonary toilet. PT noted poor sitting balance on the bedside, which may compromise her being up in a chair. Palliative care will continue to follow the patient during hospital course as condition evolves, to assist patient/decision-maker with understanding of their medical conditions, weighing benefits/burdens of treatment options, for clarification of goals of treatment. Additionally will assist with any symptoms of palliative concern. . Attestation To help prompt me to consider important information that might be impacting today's encounter and assessment, information from prior notes written by myself or my colleagues may have been "brought forward" into today's note. My signature on this note, however, is an attestation that I personally performed the exam, history, and/or decision-making noted today, and, unless otherwise indicated, the interactions with patient, family, and staff as well as the review of records all occurred today. I also attest that the listed assessment and stated plan reflect my best clinical judgment today based on the combination of historical information, prior notes, and today's exam/ interactions. When time spent is documented, it refers only to time spent today by the signer, or if indicated, combined time spent today by collaborating physician/nurse practitioner. . Claudia Montenegro November 12, 2017 3:21 pm
[2017-11-12] MEDS: INSULIN DETEMIR 100 UNITS/ML VIAL SQ SCH (20:08)
[2017-11-13] VITALS (27 sets, daily range): BP systolic 101–147; BP diastolic 51–83; PULSE 63–85; RESP 5–29; TEMP 97.7–99.8; O2SAT 96–100
[2017-11-13] MEDS: LACTULOSE SYRUP 20 GM/30 ML CUP PO SCH ×4 (03:14→21:32)
[2017-11-13] MEDS: PIPERACIL-TAZO 3.375 GM PREMIX 50 ML IV SCH ×4 (03:14→21:32)
[2017-11-13] MEDS: VANCOMYCIN 500 MG VIAL (FOR ORAL USE ONLY) PO SCH ×4 (03:14→21:33)
[2017-11-13] MEDS: INSULIN NovoLIN REGULAR SUPPLEMENTAL SCALE SQ SCH ×6 (04:00→20:00)
[2017-11-13] MEDS: RESP: ALBUTEROL 2.5 MG/IPRATROPIUM 0.5 MG NEB (SCH) NEB (04:24)
[2017-11-13 04:56] LABS: AUTOMATED NEUTROPHIL # 12.6 TH/MM3 (1.8-7.7); BASOPHIL % 0.2 % (0.0-2.0); EOSINOPHIL # 0.4 TH/MM3 (0-0.4); EOSINOPHIL % 2.3 % (0.0-4.0); HEMATOCRIT 27.8 % (35.0-46.0); HEMOGLOBIN 8.9 GM/DL (11.6-15.3); LYMPHOCYTE # 1.4 TH/MM3 (1.0-4.8); MEAN CELL VOLUME 82.4 FL (80.0-100.0); MEAN CORPUSCULAR HEMOGLOBIN 26.3 PG (27.0-34.0); MEAN CORPUSCULAR HGB CONC 31.9 % (32.0-36.0); MONO % 6.1 % (0.0-8.0); MONOCYTE # 0.9 TH/MM3 (0-0.9); NEUT % 82.4 % (16.0-70.0); PLATELET COUNT 133 TH/MM3 (150-450); RED BLOOD COUNT 3.37 MIL/MM3 (4.00-5.30); RED CELL DISTRIBUTION WIDTH 18.5 % (11.6-17.2); WHITE BLOOD COUNT 15.3 TH/MM3 (4.0-11.0)
[2017-11-13 05:37] LABS: ALBUMIN 2.4 GM/DL (3.4-5.0); ALKALINE PHOSPHATASE 208 U/L (45-117); ALT (GPT) 39 U/L (10-53); AST (GOT) 51 U/L (15-37); BICARBONATE 26.1 MEQ/L (21.0-32.0); BLOOD UREA NITROGEN 19 MG/DL (7-18); CALCIUM 7.9 MG/DL (8.5-10.1); CHLORIDE 104 MEQ/L (98-107); CREATININE 0.92 MG/DL (0.50-1.00); GLOMERULAR FILTRATION RATE 60 ML/MIN (>89); GLUCOSE,RANDOM 109 MG/DL (74-106); PHENYTOIN (DILANTIN) 4.5 MCG/ML (10.0-20.0); SODIUM (NA) 142 MEQ/L (136-145); TOTAL BILIRUBIN ADULT 0.8 MG/DL (0.2-1.0); TOTAL PROTEIN 6.1 GM/DL (6.4-8.2)
[2017-11-13] MEDS: FOSPHENYTOIN SODIUM 100 MG PE/2 ML VIAL IV SCH ×3 (06:05→22:51)
[2017-11-13] MEDS: METOPROLOL TARTRATE 25 MG TAB PO SCH ×3 (06:05→21:33)
[2017-11-13] MEDS: LEVOTHYROXINE SODIUM 50 MCG TAB PO SCH (06:05)
[2017-11-13] MEDS: POTASSIUM CHLOR 20 MEQ PREMIX 100 ML IV PRN ×2 (06:06→10:33)
[2017-11-13] MEDS: CHLORHEXIDINE 0.12% (ORAL KIT) 15 ML CUP MT SCH ×2 (08:00→20:00)
[2017-11-13] MEDS: MODAFINIL 200 MG TAB PO SCH (08:31)
[2017-11-13] MEDS: AMIODARONE 200 MG TAB PO SCH (08:31)
[2017-11-13] MEDS: RIFAXIMIN 550 MG TAB PO SCH ×2 (08:31→22:50)
[2017-11-13] MEDS: ALBUMIN 25% INJ 50 ML IV SCH ×2 (08:31→21:34)
[2017-11-13] MEDS: DOCUSATE SODIUM 50 MG/SENNA 8.6 MG TAB PO SCH ×2 (08:32→21:33)
[2017-11-13] MEDS: FLUoxetine HCL 20 MG CAP PO SCH (08:32)
[2017-11-13] MEDS: VENLAFAXINE HCL XR 75 MG CAP PO SCH (08:32)
[2017-11-13] MEDS: SODIUM CHLORIDE 0.9% FLUSH 10 ML FLUSH IV FLUSH SCH ×2 (08:33→21:34)
--- NOTE | 2017-11-13 09:47 | HHI.IDPN ---
Subjective Subjective Remarks Ms. Marroquin is a 72-year-old female with past medical history significant for colon cancer with reported history of spots on her vertebrae. Patient's spouse reports that she was scheduled to have a PET scan but could not complete it as she was extremely weak. Dr. Vargas is her oncologist and is following her. Her past medical history is also significant for hypertension hyperlipidemia, atrial fibrillation status post previous ablation, type 2 diabetes. With this background patient presents to the emergency department with generalized weakness as well as hypotensive upon arrival. She was diagnosed with possible UTI sepsis. She received 4 L of IV fluids in the emergency room and her blood pressure improved to 690s systolic. But she continued to be in atrial fibrillation with heart rate in 130s. She had a negligible urine output despite 4 L IV fluids and elevated lactic acid remains a concern. Sepsis workup was initiated and patient was started on empiric IV antibiotics for presumed UTI related sepsis. Per review of records it appears that patient reportedly did not eat or drink for 30 hours prior to admission and was having burning with urination approximately 2 days prior to admission. CT of the head was done which was unremarkable a CT of the abdomen pelvis showed moderate hydronephrosis as well as several spots as mentioned in the report concerning for malignancy related metastases. Oncology Dr. Vargas is following the patient. A VQ scan was done which showed low probability of PE. Blood cultures done on admission are positive for E. coli as well as her urine culture was also positive for E. coli. Patient has been treated with ceftriaxone and has been clinically improved. Repeat blood cultures are negative so far. Urology has seen the patient and there is no plan for placement of stent. This appears to be hydronephrosis with stranding around the kidney suggestive of pyelonephritis. Infectious diseases consulted for evaluation and management of sepsis, E. coli bacteremia and E. coli pyelonephritis. Notes reviewed at bedside Temps low-grade BP okay Has liquid stool Denies abdominal pain Mental status continues to improve Repeat UA better with pyuria has many yeast, UC pending Creat down to normal Has good UO CT head negative. EEG metabolic encephalopathy. repeat EEG planned today. CXR worse aeration, but sats good and stable Antibiotics Zosyn IV P.o. Vanco Current Medications Medications (Trade) Dose Ordered Sig/Chiqui Route Start Time Stop Time Status Last Admin (Cordarone) 200 mg DAILY PO 11/01/17 09:00 Future hold 11/12/17 08:15 (PROzac) 20 mg DAILY PO 11/01/17 09:00 11/12/17 08:16 (Synthroid) 50 mcg DAILY@0600 PO 11/01/17 06:00 11/12/17 05:43 (Pravachol) 40 mg DAILY PO 11/01/17 09:00 Future Hold 11/08/17 08:36 (Xarelto) 20 mg DAILY PO 11/01/17 09:00 Future Hold (Effexor Xr) 75 mg DAILY PO 11/01/17 09:00 11/12/17 08:15 (NS Flush) 2 ml UNSCH PRN IV FLUSH 10/31/17 15:30 (NS Flush) 2 ml BID IV FLUSH 10/31/17 21:00 11/11/17 20:34 (Tylenol) 650 mg Q4H PRN PO 10/31/17 15:30 11/01/17 19:50 (Narcan Inj) 0.4 mg UNSCH PRN IV PUSH 10/31/17 15:30 (Elsa-Colace) 1 tab BID PO 10/31/17 21:00 11/12/17 08:16 (Milk Of Magnesia Liq) 30 ml Q12H PRN PO 10/31/17 15:30 (Senokot) 17.2 mg Q12H PRN PO 10/31/17 15:30 11/04/17 08:19 (Dulcolax Supp) 10 mg DAILY PRN RECTAL 10/31/17 15:30 (Glucagon Inj) 1 mg UNSCH PRN OTHER 10/31/17 15:30 (Zofran Odt) 4 mg Q6H PRN PO 10/31/17 15:30 11/07/17 20:48 Acetaminophen 100 ml @ 400 mls/hr Q6H PRN IV 10/31/17 17:15 11/12/17 00:02 ([facility] Nursing Information) Patient in critical care unit? Ass... [id number] .XX 10/31/17 23:15 10/31/17 23:15 (Brethine Inj) 1 mg UNSCH PRN SQ 10/31/17 23:30 Heparin Sodium/ Dextrose 250 ml @ 10 mls/hr TITRATE PRN IV 11/01/17 09:00 11/12/17 05:41 Albumin Human 50 ml @ 60 mls/hr Q12H IV 11/01/17 09:00 11/12/17 08:17 ([place]oa 5-325 Mg) 1 tab Q4H PRN PO 11/01/17 13:15 11/12/17 08:16 (Pyridium) 100 mg Q8H PRN PO 11/01/17 13:45 (Restoril) 15 mg HS PRN PO 11/01/17 22:00 11/01/17 22:43 (Peridex 0.12% Liq) 15 ml BID@08,20 MT 11/02/17 08:00 11/12/17 08:00 (Trandate Inj) 10 mg Q4H PRN IV PUSH 11/05/17 10:45 11/11/17 21:25 (Apresoline Inj) 20 mg Q4H PRN IV PUSH 11/06/17 07:30 11/09/17 05:18 Potassium Chloride 100 ml @ 50 mls/hr Q2H PRN IV 11/07/17 07:45 11/12/17 09:11 Potassium Chloride 100 ml @ 50 mls/hr Q2H PRN IV 11/07/17 07:45 11/09/17 07:25 (K-Lyte Cl Eff) 50 meq UNSCH PRN PO 11/07/17 07:45 11/08/17 17:55 Potassium Chloride 100 ml @ 25 mls/hr UNSCH PRN IV 11/07/17 07:45 11/08/17 08:35 Potassium Chloride 100 ml @ 50 mls/hr Q2H PRN IV 11/07/17 07:45 Magnesium Sulfate 4 gm/Sodium Chloride 100 ml @ 50 mls/hr UNSCH PRN IV 11/07/17 07:45 (Mag-Ox) 800 mg UNSCH PRN PO 11/07/17 07:45 Magnesium Sulfate 2 gm/Sodium Chloride 100 ml @ 50 mls/hr UNSCH PRN IV 11/07/17 07:45 (K-Phos) 2,000 mg Q4H PRN PO 11/07/17 07:45 Sodium Phosphate 30 mmol/Sodium Chloride 250 ml @ 42 mls/hr UNSCH PRN IV 11/07/17 07:45 (K-Phos) 2,000 mg UNSCH PRN PO/TUBE 11/07/17 07:45 Potassium Phosphate 30 mmol/ Sodium Chloride 260 ml @ 42 mls/hr UNSCH PRN IV 11/07/17 07:45 (Lopressor) 25 mg Q8HR PO 11/07/17 07:45 11/12/17 05:43 (Xifaxan) 550 mg BID PO 11/07/17 21:00 11/12/17 08:16 (Duoneb Neb) 1 ampule Q6HR NEB NEB 11/09/17 10:30 11/12/17 08:45 (Cerebyx Inj) 200 mgpe Q12H IV 11/10/17 02:00 11/12/17 02:42 Piperacillin Sod/ Tazobactam Sod 50 ml @ 100 mls/hr Q6H IV 11/10/17 15:00 11/12/17 08:15 (Lactulose Liq) 30 ml Q6H PO 11/10/17 21:00 11/12/17 02:42 Sodium Chloride 38.5 meq/Sterile Water 1,009.625 ml @ 60 mls/hr [id number] IV 11/10/17 18:15 11/12/17 02:42 (Provigil) 200 mg DAILY PO 11/11/17 09:00 11/12/17 08:16 (D50w (Vial) Inj) 25 ml UNSCH PRN IV PUSH 11/10/17 18:15 (NovoLIN R SUPPLEMENTAL SCALE) 1 Q4HR SQ 11/10/17 20:00 11/12/17 08:00 (Levemir Inj) 10 units HS SQ 11/10/17 21:00 11/11/17 20:34 (VANCOMYCIN for oral use only) 125 mg Q6H PO 11/10/17 22:00 11/12/17 05:42 Lines Port site ok Past Medical History reviewed Allergies: Coded Allergies: Sulfa (Sulfonamide Antibiotics) (Verified Allergy, Severe, 10/31/17) codeine (Verified Allergy, Severe, Nausea/Vomiting, 10/31/17) Uncoded Allergies: METAL (Allergy, Intermediate, hives, 03/08/16) SURGICAL STEEL (Allergy, Intermediate, hives, 03/08/16) Objective . Vital Signs Date Time Temp Pulse Resp B/P (MAP) Pulse Ox O2 Delivery O2 Flow Rate FiO2 11/13/17 06:00 81 11/13/17 04:00 99.7 79 27 111/52 (71) 98 11/13/17 04:00 79 11/13/17 02:00 76 11/13/17 00:00 83 11/13/17 00:00 99.8 83 26 114/53 (73) 98 11/12/17 22:00 88 11/12/17 21:08 98 Nasal Cannula 2.00 11/12/17 20:00 84 11/12/17 20:00 99.7 84 30 123/58 (79) 98 11/12/17 19:00 96 Nasal Cannula 2.00 11/12/17 18:00 82 11/12/17 16:00 82 11/12/17 16:00 98.8 82 24 107/52 (70) 100 11/12/17 14:00 77 11/12/17 12:00 77 11/12/17 12:00 77 11/12/17 12:00 99.8 72 27 176/73 (107) 100 11/12/17 10:00 77 . Laboratory Tests Test 11/12/17 05:25 11/13/17 03:30 White Blood Count 15.9 TH/MM3 15.3 TH/MM3 Red Blood Count 3.46 MIL/MM3 3.37 MIL/MM3 Hemoglobin 9.0 GM/DL 8.9 GM/DL Hematocrit 28.5 % 27.8 % Mean Corpuscular Volume 82.2 FL 82.4 FL Mean Corpuscular Hemoglobin 25.9 PG 26.3 PG Mean Corpuscular Hemoglobin Concent 31.5 % 31.9 % Red Cell Distribution Width 18.9 % 18.5 % Platelet Count 137 TH/MM3 133 TH/MM3 Mean Platelet Volume 9.0 FL 10.0 FL Neutrophils (%) (Auto) 85.5 % 82.4 % Lymphocytes (%) (Auto) 6.3 % 9.0 % Monocytes (%) (Auto) 5.9 % 6.1 % Eosinophils (%) (Auto) 2.1 % 2.3 % Basophils (%) (Auto) 0.2 % 0.2 % Neutrophils # (Auto) 13.6 TH/MM3 12.6 TH/MM3 Lymphocytes # (Auto) 1.0 TH/MM3 1.4 TH/MM3 Monocytes # (Auto) 0.9 TH/MM3 0.9 TH/MM3 Eosinophils # (Auto) 0.3 TH/MM3 0.4 TH/MM3 Basophils # (Auto) 0.0 TH/MM3 0.0 TH/MM3 CBC Comment DIFF FINAL DIFF FINAL Differential Comment Laboratory Tests Test 11/11/17 23:49 11/12/17 05:25 11/12/17 22:30 11/13/17 03:30 Potassium Level 3.5 MEQ/L 3.2 MEQ/L 3.5 MEQ/L 3.4 MEQ/L Blood Urea Nitrogen 21 MG/DL 19 MG/DL Creatinine 1.08 MG/DL 0.92 MG/DL Random Glucose 160 MG/DL 109 MG/DL Total Protein 6.4 GM/DL 6.1 GM/DL Albumin 2.5 GM/DL 2.4 GM/DL Calcium Level 7.6 MG/DL 7.9 MG/DL Alkaline Phosphatase 196 U/L 208 U/L Aspartate Amino Transf (AST/SGOT) 60 U/L 51 U/L Alanine Aminotransferase (ALT/SGPT) 41 U/L 39 U/L Total Bilirubin 0.8 MG/DL 0.8 MG/DL Sodium Level 148 MEQ/L 142 MEQ/L Chloride Level 112 MEQ/L 104 MEQ/L Carbon Dioxide Level 27.3 MEQ/L 26.1 MEQ/L Anion Gap 9 MEQ/L 12 MEQ/L Estimat Glomerular Filtration Rate 50 ML/MIN 60 ML/MIN Microbiology Date/Time Source Procedure Growth Status 11/12/17 09:45 Blood Peripheral Aerobic Blood Culture Pending Received 11/12/17 09:45 Blood Peripheral Anaerobic Blood Culture Pending Received 11/12/17 09:40 Blood Peripheral Aerobic Blood Culture Pending Received 11/12/17 09:40 Blood Peripheral Anaerobic Blood Culture Pending Received 11/12/17 10:45 Urine Catheterized Urine Urine Culture Pending Received Imaging Brain MRI 11/10/17 0000 Signed Impressions: Service Date/Time: Friday, November 10, 2017 14:00 - CONCLUSION: 1. Stable examination. Specifically, no acute infarction, hemorrhage or mass. 2. Senescent changes with periventricular white matter ischemic demyelination and focal lacunar type infarct in the right centrum semiovale. César Coats MD Chest X-Ray 11/08/17 0600 Signed Impressions: Service Date/Time: Wednesday, November 08, 2017 04:16 - CONCLUSION: Stable radiographic appearance most consistent with pulmonary edema. Antonio High Jr., MD Brain MRI 11/08/17 0000 Signed Impressions: Service Date/Time: Wednesday, November 08, 2017 14:49 - CONCLUSION: 1. 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 2. Nothing acute. Jj Alvarez MD Liver Ultrasound 11/07/17 0000 Signed Impressions: Service Date/Time: October 08:05 - CONCLUSION: 1. Heterogeneous liver suggestive of hepatocellular disease such as cirrhosis. There is a small amount of ascites surrounding the liver. This is not significantly changed compared to the recent CT scan of the abdomen. 2. Sludge in the gallbladder. No definite gallstones or biliary tract obstruction. 3. Mild splenomegaly. 4. Mild hydronephrosis of the right collecting system. Markie Crabtree MD Head CT 11/06/17 0000 Signed Impressions: Service Date/Time: Monday, November 06, 2017 10:03 - CONCLUSION: 1. No acute intracranial abnormality or significant interval change. César Coats MD Abdomen X-Ray 11/04/17 0000 Signed Impressions: Service Date/Time: Saturday, November 04, 2017 17:50 - CONCLUSION: Nonspecific intestinal gas pattern Jose Wright MD Abdomen/Pelvis CT 10/31/17 1321 Signed Impressions: Service Date/Time: October 13:58 - CONCLUSION: 1. Development of innumerable small sclerotic lesions in the skeleton most characteristic of sclerotic bony metastatic disease. There is a reported history of malignancy. 2. Hepatomegaly with development of mild ascites. 3. Persistent moderate hydronephrosis with perinephric stranding similar to February 2017. Interval development of mild anasarca. 4. Gallbladder sludge. Gallo catheter in bladder. Samuel Lin MD Lung Scan- Nuclear Medicine 10/31/17 0000 Signed Impressions: Service Date/Time: October 15:00 - CONCLUSION: Low probability scan for pulmonary embolism Jose Wright MD Physical Exam GENERAL: Awake and answering questions, NAD SKIN: No generalized rash. Cool and dry HEAD: Atraumatic. Normocephalic. No temporal or scalp tenderness. EYES: Pupils equal round and reactive. Extraocular motions intact. No scleral icterus. No injection or drainage. ENT: NAD NECK: Trachea midline. Supple, nontender, no meningeal signs. CARDIOVASCULAR: HS audible. No murmur. RESPIRATORY: Clear to auscultation. Breath sounds decreased in the bases. GASTROINTESTINAL: Abdomen distended. Non tender. No guarding or rebound Incontinent of liquid dark stool MUSCULOSKELETAL: Extremities without clubbing, cyanosis, or edema. No joint tenderness, effusion, or edema noted. NEUR: Awake and following commands, answering all my questions Psych calm and cooperative Port site with no e.o infection. Assessment & Plan Remarks Severe sepsis present on admission, has improved New fever - likely due to C diff colitis - ?other source E. coli pyelonephritis with hydronephrosis with no evidence of obstruction per urology notes. He did urinary tract infection. No plans for stent placement. E. coli bacteremia appears to be transient and related to the E. coli pyelonephritis. Possible aspiration pneumonia on admission Acute metabolic encephalopathy likely secondary to sepsis, acute renal failure, cirrhosis (hepatic) - Dr Murillo concerned of cefepime causing the encephalopathy, abx switched to levaquine Acute renal failure on admission: prerenal, sepsis. -Improving Abnormal LFTs: sepsis, meds, cirrhosis. Leucocytosis, improving Colon cancer with suspected mets. Recs: Continue Zosyn IV Continue Oral Vanco for Cdiff. Follow new C/S Follow temps Monitor progress D/W Rosaura Calderon MD November 13, 2017 09:47
--- NOTE | 2017-11-13 11:34 | HHI.FPPN ---
Subjective Remarks Mrs. Marroquin was afebrile (borderline elevated temperatures; Tmax 99.8F) overnight with tachypnea (RR in mid 20's), normal O2 sats >95% on 2 L O2. 3075ml urine output. Patient doing well; she does not report chest pain and shortness of breath. She has been able to eat more last night and this morning. She has abundant stool from rectal bag. Patient has sore throat currently. (Oscar Snatos MD R3) Objective Vitals Vital Signs Date Time Temp Pulse Resp B/P (MAP) Pulse Ox O2 Delivery O2 Flow Rate FiO2 11/13/17 07:30 99 Nasal Cannula 2.00 11/13/17 06:00 81 11/13/17 04:00 99.7 79 27 111/52 (71) 98 11/13/17 04:00 79 11/13/17 02:00 76 11/13/17 00:00 83 11/13/17 00:00 99.8 83 26 114/53 (73) 98 11/12/17 22:00 88 11/12/17 21:08 98 Nasal Cannula 2.00 11/12/17 20:00 84 11/12/17 20:00 99.7 84 30 123/58 (79) 98 11/12/17 19:00 96 Nasal Cannula 2.00 11/12/17 18:00 82 11/12/17 16:00 82 11/12/17 16:00 98.8 82 24 107/52 (70) 100 11/12/17 14:00 77 11/12/17 12:00 77 11/12/17 12:00 77 11/12/17 12:00 99.8 72 27 176/73 (107) 100 I/O 11/12/17 11/12/17 11/12/17 11/13/17 11/13/17 11/13/17 07:00 15:00 23:00 07:00 15:00 23:00 Intake Total 1797 ml 50 ml 3190 ml 4936 ml Output Total 1000 ml 1050 ml 2025 ml Balance 797 ml 50 ml 2140 ml 2911 ml Intake Oral 400 ml IV Total 1370 ml 50 ml 2340 ml 4936 ml Tube Feeding 427 ml 250 ml Other 200 ml Output Urine Total 1000 ml 850 ml 1225 ml Stool Total 200 ml 800 ml # Bowel Movements 2 (Oscar Santos MD R3) Result Diagram: 11/13/17 0330 11/13/17 0330 Imaging Last Impressions Chest X-Ray 11/12/17 0000 Signed Impressions: CONCLUSION: Slight interval worsening in aeration, particularly at the left ritika g base Brain MRI 11/10/17 0000 Signed Impressions: Service Date/Time: Friday, November 10, 2017 14:00 - CONCLUSION: 1. Stable examination. Specifically, no acute infarction, hemorrhage or mass. 2. Senescent changes with periventricular white matter ischemic demyelination and focal lacunar type infarct in the right centrum semiovale. César Coats MD Liver Ultrasound 11/07/17 0000 Signed Impressions: Service Date/Time: October 08:05 - CONCLUSION: 1. Heterogeneous liver suggestive of hepatocellular disease such as cirrhosis. There is a small amount of ascites surrounding the liver. This is not significantly changed compared to the recent CT scan of the abdomen. 2. Sludge in the gallbladder. No definite gallstones or biliary tract obstruction. 3. Mild splenomegaly. 4. Mild hydronephrosis of the right collecting system. Markie Crabtree MD Head CT 11/06/17 0000 Signed Impressions: Service Date/Time: Monday, November 06, 2017 10:03 - CONCLUSION: 1. No acute intracranial abnormality or significant interval change. César Coats MD Abdomen X-Ray 11/04/17 0000 Signed Impressions: Service Date/Time: Saturday, November 04, 2017 17:50 - CONCLUSION: Nonspecific intestinal gas pattern Jose Wright MD Abdomen/Pelvis CT 10/31/17 1321 Signed Impressions: Service Date/Time: October 13:58 - CONCLUSION: 1. Development of innumerable small sclerotic lesions in the skeleton most characteristic of sclerotic bony metastatic disease. There is a reported history of malignancy. 2. Hepatomegaly with development of mild ascites. 3. Persistent moderate hydronephrosis with perinephric stranding similar to February 2017. Interval development of mild anasarca. 4. Gallbladder sludge. Jacobsen catheter in bladder. Samuel Lin MD Lung Scan- Nuclear Medicine 10/31/17 0000 Signed Impressions: Service Date/Time: October 15:00 - CONCLUSION: Low probability scan for pulmonary embolism Jose Wright MD Objective Remarks GENERAL: This is a well-nourished, well-developed patient. Now alert and conversant. Improved ability to raise especially her right arm; still weak Eyes: No pupil asymmetry appreciated Skin: No visible lesions CARDIOVASCULAR: irregular rate and rhythm; 3/6 murmur. Normal distal LE perfusion bilaterally RESPIRATORY: Normal rate. No focal congestion or wheezing to auscultation GASTROINTESTINAL: Abdomen soft, distended. Normal bowel sounds. MUSCULOSKELETAL: No calf asymmetry or pain to palpation NEUROLOGICAL: talkative and conversant and oriented. No cranial nerve or peripheral motor/sensory deficits; patient weak (Oscar Santos MD R3) A/P Assessment and Plan Patient is a 72-year-old admitted due to septic shock from urinary source; patient also with sclerotic bony lesions concerning for colon cancer metastasis. Due to respiratory decline/multiorgan failure, patient on ventilator 11/02. Critical care, Nephrology, and infectious disease consulted. Patient extubated ; has had altered mental status since extubation but improving currently still very weak and considering rehab for her Discharge Planning Prognosis unclear at this time full code (Oscar Santos MD R3) Attending Attestation Patient seen and examined. Case reviewed and discussed with the resident team. Agree with plan of care as discussed with me and documented in the resident note. improving daily (Lydia Greenberg MD) Problem List: (1) Sepsis ICD Codes: A41.9 - Sepsis, unspecified organism Status: Resolved Plan: Impression: Septic shock on admission; labs suggestive of multiorgan dysfunction. Patient initially required >4 L crystalloids and was placed on pressors. E coli from urinary source. Patient developed respiratory failure and required intubation. Subsequently, patient found to have C diff colitis Labs: Cr: 2.10 (10/31)-> 3.53 (11/04) -> 2.84 (11/05) -> 2.29-> 1.81 (11/07) -> 1.48 (11/08 ) -> 1.24 (11/11) -> 0.92 (11/13) WBC: 15.8 (10/31)-> 2.1 (11/02)-> 20.3 (11/03) -> 17.7 (11/04) -> 22.2 (11/06) -> 25 (11/07) -> 21.9 (11/08) -> 17.7 (11/11)-> 15.3 (11/13) Lactic acid: 3 (10/31) -> 3.3 (11/02) -Continue antibiotic therapy -Infectious disease consulted -Continue Zosyn (11/10- ) -Continue Vancomycin 125mg PO q 6hrs 11/10 -Monitor cultures, temps -Continue to monitor CBC, BMP, urine output Antibiotic history: s/p Meropenem 2gm q12hrs IV -s/p Zosyn 2.5mg q6hrs (10/31-11/02) -s/p Tobramycin IV x1 11/02 -s/p Rocephin 11/03-11/06 -s/p Cefepime 2gm IV BID -s/p Levofloxacin 11/10 Cultures: -11/10- C diff PCR + 11/05 -Sputum culture negative x48hrs 10/31- blood x2 taylor sensitive E Coli 10/31- urine- taylor sensitive E coli 11/02- blood x2- negative x5 days (2) ASH (acute kidney injury) ICD Codes: N17.9 - Acute kidney failure, unspecified Status: Acute Plan: 11/13 : Cr improved to baseline; normal urine output. Impression: renal injury presumed secondary to septic shock/multiorgan dysfunction Cr- 2.12 on admission-> 2.59 (11/02) -> 3.53 (11/04) -> downtending (0.92 11/13) CT abdomen/pelvis- moderate hydronephrosis w/ perinephric stranding similar to . Interval development of mild anasarca. -Continue to monitor urine output w/ jacobsen -Nephrology consulted -Continue IVF, antibiotics -Continue to monitor urine output/BMP -Ca replacement -Will sign off due to improvement -Urology consulted for hydronephrosis -Continue Jacobsen, antibiotics -Do not suspect obstruction; do not recommend stent placement -Recommend renal US next week (3) Elevated LFTs ICD Codes: R79.89 - Other specified abnormal findings of blood chemistry Status: Resolved Plan: Impression: Patient with normal LFT's on admission-> mild transaminase elevations: (11/02- TBILI 1.7, AST 122, ALT 62, ALKP 54 -> 11/07- TBILI 1.4, AST 77, ALT 122, ALKP65) Suspect likely related to sepsis/organ injury Labs: Ceruloplasmin 37, [id number] 225, Hep panel negative JELANI+; titer >1:1280; speckled pattern -Continue to monitor LFT's -Liver US per CC- heterogenous liver suggestive of hepatocellular disease such as cirrhosis. Small ascites; not recently changed since last CT. Sludge in gallbladder; no definite gallstones. Mild splenomegaly. Mild hydronephrosis -Ceftriaxone stopped per ID -Gastroenterology consulted -Continue Rifaximin, lactulose -monitor labs -Will sign off (4) UTI (urinary tract infection) ICD Codes: N39.0 - Urinary tract infection, site not specified Status: Resolved Plan: Impression: UA with large leukocyte esterase, innumerable WBCs, many WBC clumps Urine culture and blood cultures 10/31 with pansensitive E Coli -Management as above for sepsis (5) Hypertension ICD Codes: I10 - Essential (primary) hypertension Status: Chronic Plan: Impression: PMH HTN. Initial hypotension on admission w/ septic shock. Now intermittent hypertension based on agitation/sedation -Continue to monitor; management per CC -Start Metoprolol 25mg q8 hrs -Hydralazine 20mg IV q4hrs PRN -Clonidine 0.2mg PRN -Labetalol 10mg IV q4hrs PRN (6) Atrial fibrillation ICD Codes: I48.91 - Unspecified atrial fibrillation Status: Chronic Plan: Impression: patient placed on amiodarone drip and given digoxin for afib with RVR on admission. Patient currently with normal rate/sinus rhythm. Patient with reported history of moderate mitral stenosis and mild/moderate aortic stenosis Echocardiogram- moderate concentric LVF. EF 70%. Aortic sclerosis present. Moderate /severe pulmonary HTN (60-70mmHg) Initially placed on heparin drip-> PO Amiodarone; currently on hold with sinus rhythm -Continue telemetry/monitoring VS -Continue IV heparin; plan to transition to Xarelto once normal renal function -Continue amiodarone as needed. 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 [id number]. s/p Zeloda 08/2016. Abdomen/Pelvis CT 10/31/17: Innumerable small sclerotic lesions in the skeleton, most characteristic of sclerotic bony metastatic disease -Dr. Candelario consulted -recent bone scan w/o uptake; reassuring regarding sclerotic lesions -plan for PET as outpatient -Continue heparin, treatment for sepsis (8) Weakness ICD Codes: R53.1 - Weakness Status: Acute Plan: -PT consulted; will evaluate once improving she is profoundly weak and will need rehab (9) Clostridium difficile infection ICD Codes: B96.89 - Other specified bacterial agents as the cause of diseases classified elsewhere Status: Acute Plan: Impression: Diarrhea; C diff toxin PCR + -Continue oral vancomycin 125mg q6hrs PO (10) Diabetes mellitus, type II ICD Codes: E11.9 - Type 2 diabetes mellitus Status: Chronic Plan: Will hold home medications -Low dose SSI -Continue to monitor blood sugar (11) Hypothyroidism ICD Codes: E03.9 - Hypothyroidism Status: Chronic Plan: Continue home Levothyroxine (12) Altered mental state ICD Codes: R41.82 - Altered mental status, unspecified Status: Resolved Plan: 11/13- alert/oriented. Resolved mental status Impression: Persistent lack of orientation after extubation 11/05. No focal deficits. History of TIA. On Heparin anticoagulation Imaging: CT head 10/31 on admission (ordered due to confusion on admission; suspected secondary to sepsis) w/o acute findings. Remote lacunar infarct in right frontal white matter Repeat head CT 11/06 without acute intracranial abnormality MRI brain 11/08- chronic changes with some periventricular small vessel ischemic demyelination and old lacunar infarct at junction of R coronal radiata and centrum semiovale MRI brain 11/10- stable exam EEG- moderate encephalopathy with triphasic waveforms; possible she could have nonconvulsive seizures Labs: Leukocytosis. Some hypocalcemia. Normal sodium. Ammonia 76 11/06 -> 39 (11/08) -> 33 11/10 LFT elevations- 11/02-11/08- (TBILI mild elevation, mild AST and ALT elevations normal ALKP); subsequently normal values ABG 11/07- pH 7.34, CO2 37, HCO3 20 -Continue management per Critical care; suspect multifactorial. off of sedation since extubation. Suspect possible hepatic encephalopathy as component plus may have been uremic -Neurology consulted-appreciate recs -Likely metabolic encephalopathy -Antibiotic therapy changed to Zosyn to avoid possible encephalopathy from Cefepime -Continue IV Celebrex -Hyperammonemia -Continue Lactulose TID -rifaximin 550mg BID added -Monitor ammonia which dropped dramatically -Supportive care; monitor labs -Will resume normal feeding -palliative care spoke to pt's as she has been through so many severe medical problems. he is optimistic as she is recovering (13) Positive JELANI (antinuclear antibody) ICD Codes: R76.8 - Other specified abnormal immunological findings in serum Plan: has speckled pattern and markedly positive. unclear at this point what the significance is. will ask for more information tomorrow. she will have elevated inflammatory markers now because of her infection and other illness she has currently. can determine by history if she may have lupus or another illness (14) FEN/PPX Plan: Fluid: Fluid per information officer -50ml/hr NS -Albumin 25% q12 hrs should be able to stop this soon as she is so improved hemodynamically Electrolytes: Continue to monitor; replacement per protocol Nutrition: Will resume normal diet DVT PPX: Per CC, on heparin gtt at this time. Will plan to transition to Xarelto since normal renal function (Oscar Santos MD R3) Problem Qualifiers (1) Sepsis: Qualified Codes: A41.9 - Sepsis, unspecified organism (2) UTI (urinary tract infection): (3) Hypertension: Qualified Codes: I10 - Essential (primary) hypertension (4) Atrial fibrillation: Qualified Codes: I48.2 - Chronic atrial fibrillation (5) Diabetes mellitus, type II: Qualified Codes: E11.8 - Type 2 diabetes mellitus with unspecified complications (6) Hypothyroidism: Qualified Codes: E03.9 - Hypothyroidism, unspecified Oscar Santos MD R3 November 13, 2017 11:33 Lydia Greenberg MD November 15, 2017 10:17
[2017-11-13] MEDS: SODIUM CHLORIDE 23.4% INJ 38.5 MEQ in WATER STERILE FOR INJ 1,000 ML IV SCH (12:54)
[2017-11-13] MEDS: RIVAROXABAN 20 MG TAB PO SCH (14:39)
[2017-11-13] MEDS: INSULIN DETEMIR 100 UNITS/ML VIAL SQ SCH (21:00)
[2017-11-14] VITALS (25 sets, daily range): BP systolic 137–189; BP diastolic 72–84; PULSE 20–84; RESP 17–19; TEMP 97.6–98.5; O2SAT 97–100
[2017-11-14] MEDS: LACTULOSE SYRUP 20 GM/30 ML CUP PO SCH ×2 (03:55→09:00)
[2017-11-14] MEDS: INSULIN NovoLIN REGULAR SUPPLEMENTAL SCALE SQ SCH ×3 (03:56→08:00)
[2017-11-14] MEDS: VANCOMYCIN 500 MG VIAL (FOR ORAL USE ONLY) PO SCH ×3 (03:56→17:53)
[2017-11-14] MEDS: PIPERACIL-TAZO 3.375 GM PREMIX 50 ML IV SCH ×3 (03:56→15:02)
[2017-11-14] MEDS: SODIUM CHLORIDE 0.9% FLUSH 10 ML FLUSH IV FLUSH PRN ×2 (04:54→05:26)
[2017-11-14] MEDS: LEVOTHYROXINE SODIUM 50 MCG TAB PO SCH (04:54)
[2017-11-14] MEDS: METOPROLOL TARTRATE 25 MG TAB PO SCH ×2 (04:54→13:08)
[2017-11-14] MEDS: SODIUM CHLORIDE 23.4% INJ 38.5 MEQ in WATER STERILE FOR INJ 1,000 ML IV SCH (04:55)
[2017-11-14] MEDS: FOSPHENYTOIN SODIUM 100 MG PE/2 ML VIAL IV SCH ×2 (05:25→13:10)
[2017-11-14 05:38] LABS: AUTOMATED NEUTROPHIL # 10.1 TH/MM3 (1.8-7.7); BASOPHIL % 0.3 % (0.0-2.0); EOSINOPHIL # 0.3 TH/MM3 (0-0.4); EOSINOPHIL % 2.4 % (0.0-4.0); HEMATOCRIT 28.9 % (35.0-46.0); HEMOGLOBIN 9.2 GM/DL (11.6-15.3); LYMPHOCYTE # 0.9 TH/MM3 (1.0-4.8); MEAN CELL VOLUME 83.6 FL (80.0-100.0); MEAN CORPUSCULAR HEMOGLOBIN 26.7 PG (27.0-34.0); MEAN CORPUSCULAR HGB CONC 31.9 % (32.0-36.0); MEAN PLATELET VOLUME 9.9 FL (7.0-11.0); MONO % 7.4 % (0.0-8.0); MONOCYTE # 0.9 TH/MM3 (0-0.9); NEUT % 82.9 % (16.0-70.0); PLATELET COUNT 145 TH/MM3 (150-450); RED BLOOD COUNT 3.46 MIL/MM3 (4.00-5.30); RED CELL DISTRIBUTION WIDTH 19.5 % (11.6-17.2); WHITE BLOOD COUNT 12.2 TH/MM3 (4.0-11.0)
[2017-11-14] MEDS: CHLORHEXIDINE 0.12% (ORAL KIT) 15 ML CUP MT SCH (08:00)
[2017-11-14] MEDS ORDERED: POTASSIUM CHLORIDE 20 MEQ CONTROLLED RELEASE TAB PO ONE (08:00)
--- NOTE | 2017-11-14 08:34 | HHI.PR ---
Review/Management Diagnosis/Plan: (1) Encephalopathy, metabolic ICD Codes: G93.41 - Metabolic encephalopathy Status: Acute Plan: Likely multifactorial metabolic in etiology secondary to renal failure, systemic inflammatory response syndrome, potentially medication Suspect secondary to cefepime Recommendations Mental status significantly improve Follow-up EEG If EEG is negative for any seizure activity will DC Dilantin (2) Respiratory failure, acute ICD Codes: J96.00 - Acute respiratory failure, unspecified whether with hypoxia or hypercapnia Status: Resolved (3) Acute kidney failure ICD Codes: N17.9 - Acute kidney failure, unspecified Status: Resolved (4) Atrial fibrillation ICD Codes: I48.91 - Unspecified atrial fibrillation Status: Chronic Subjective Subjective Comments No acute events reported No headache No chest pain No dyspnea Active Medications Current Medications Medications (Trade) Dose Ordered Sig/Chiqui Route Start Time Stop Time Status Last Admin (Cordarone) 200 mg DAILY PO 11/01/17 09:00 Future hold 11/13/17 08:31 (PROzac) 20 mg DAILY PO 11/01/17 09:00 11/13/17 08:32 (Synthroid) 50 mcg DAILY@0600 PO 11/01/17 06:00 11/14/17 04:54 (Pravachol) 40 mg DAILY PO 11/01/17 09:00 Future Hold 11/08/17 08:36 (Xarelto) 20 mg DAILY PO 11/01/17 09:00 Future hold 11/13/17 14:39 (Effexor Xr) 75 mg DAILY PO 11/01/17 09:00 11/13/17 08:32 (NS Flush) 2 ml UNSCH PRN IV FLUSH 10/31/17 15:30 11/14/17 05:26 (NS Flush) 2 ml BID IV FLUSH 10/31/17 21:00 11/13/17 21:34 (Tylenol) 650 mg Q4H PRN PO 10/31/17 15:30 11/01/17 19:50 (Narcan Inj) 0.4 mg UNSCH PRN IV PUSH 10/31/17 15:30 (Elsa-Colace) 1 tab BID PO 10/31/17 21:00 11/13/17 21:33 (Milk Of Magnesia Liq) 30 ml Q12H PRN PO 10/31/17 15:30 (Senokot) 17.2 mg Q12H PRN PO 10/31/17 15:30 11/04/17 08:19 (Dulcolax Supp) 10 mg DAILY PRN RECTAL 10/31/17 15:30 (Glucagon Inj) 1 mg UNSCH PRN OTHER 10/31/17 15:30 (Zofran Odt) 4 mg Q6H PRN PO 10/31/17 15:30 11/07/17 20:48 Acetaminophen 100 ml @ 400 mls/hr Q6H PRN IV 10/31/17 17:15 11/12/17 00:02 ([facility] Nursing Information) Patient in critical care unit? Ass... [id number] .XX 10/31/17 23:15 10/31/17 23:15 (Brethine Inj) 1 mg UNSCH PRN SQ 10/31/17 23:30 Albumin Human 50 ml @ 60 mls/hr Q12H IV 11/01/17 09:00 11/13/17 21:34 ([place] 5-325 Mg) 1 tab Q4H PRN PO 11/01/17 13:15 11/12/17 22:24 (Pyridium) 100 mg Q8H PRN PO 11/01/17 13:45 (Restoril) 15 mg HS PRN PO 11/01/17 22:00 11/01/17 22:43 (Peridex 0.12% Liq) 15 ml BID@08,20 MT 11/02/17 08:00 11/12/17 20:07 (Trandate Inj) 10 mg Q4H PRN IV PUSH 11/05/17 10:45 11/11/17 21:25 (Apresoline Inj) 20 mg Q4H PRN IV PUSH 11/06/17 07:30 11/09/17 05:18 (Lopressor) 25 mg Q8HR PO 11/07/17 07:45 11/14/17 04:54 (Xifaxan) 550 mg BID PO 11/07/17 21:00 11/13/17 22:50 Piperacillin Sod/ Tazobactam Sod 50 ml @ 100 mls/hr Q6H IV 11/10/17 15:00 11/14/17 03:56 (Lactulose Liq) 30 ml Q6H PO 11/10/17 21:00 11/14/17 03:55 Sodium Chloride 38.5 meq/Sterile Water 1,009.625 ml @ 60 mls/hr [id number] IV 11/10/17 18:15 11/14/17 04:55 (Provigil) 200 mg DAILY PO 11/11/17 09:00 11/13/17 08:31 (D50w (Vial) Inj) 25 ml UNSCH PRN IV PUSH 11/10/17 18:15 (NovoLIN R SUPPLEMENTAL SCALE) 1 Q4HR SQ 11/10/17 20:00 11/12/17 16:00 (Levemir Inj) 10 units HS SQ 11/10/17 21:00 11/13/17 21:00 (VANCOMYCIN for oral use only) 125 mg Q6H PO 11/10/17 22:00 11/14/17 03:56 (Cerebyx Inj) 200 mgpe Q8HR IV 11/12/17 22:00 11/14/17 05:25 Allergies Allergies Coded Allergies Sulfa (Sulfonamide Antibiotics) (Verified Allergy, Severe, 10/31/17) codeine (Verified Allergy, Severe, Nausea/Vomiting, 10/31/17) Uncoded Allergies METAL ( Allergy, Intermediate, hives, 03/08/16) SURGICAL STEEL ( Allergy, Intermediate, hives, 03/08/16) Review of Systems All other ROS: ROS reviewed as documented in chart, Unable to obtain Exam I&O / VS Vital Signs Date Time Temp Pulse Resp B/P (MAP) Pulse Ox O2 Delivery O2 Flow Rate FiO2 11/14/17 07:00 72 11/14/17 05:59 72 11/14/17 05:00 71 11/14/17 04:05 75 11/14/17 03:53 97.7 20 18 137/74 (95) 97 11/14/17 02:00 74 11/14/17 01:00 82 11/13/17 23:00 72 11/13/17 22:54 98.8 75 18 131/68 (89) 96 11/13/17 22:00 Room Air 11/13/17 21:00 71 11/13/17 20:00 Room Air 11/13/17 20:00 97.7 77 18 146/73 (97) 99 11/13/17 16:00 79 11/13/17 16:00 98.8 79 16 135/83 (100) 98 11/13/17 15:31 72 29 128/59 (82) 97 11/13/17 15:00 78 11/13/17 15:00 78 25 141/71 (94) 96 11/13/17 14:30 78 20 147/63 (91) 99 11/13/17 14:00 79 23 136/65 (88) 99 11/13/17 14:00 79 11/13/17 13:30 77 22 123/59 (80) 100 11/13/17 13:00 77 28 140/63 (88) 100 11/13/17 13:00 77 11/13/17 12:30 77 28 123/60 (81) 100 11/13/17 12:00 98.0 66 18 115/59 (77) 100 11/13/17 12:00 66 11/13/17 11:04 99 Nasal Cannula 2.00 11/13/17 11:00 63 11/13/17 11:00 63 26 115/56 (75) 99 11/13/17 10:30 72 5 102/51 (68) 99 11/13/17 10:00 71 11/13/17 10:00 71 13 108/54 (72) 100 11/13/17 09:30 69 22 112/55 (74) 100 11/13/17 09:00 70 11/13/17 09:00 70 23 112/57 (75) 100 Eye: PERRL, EOMI Cardiology: Regular Rhythm Neurologic: Alert, Oriented Psychiatric: Cooperative Exam Comments Awake alert oriented 2-3. knew the month here not the exact date current president essence, follows pleasant, extraocular movements intact no facial asymmetry moving upper extremity to gravity lower extremity weak with contraction boots in place Objective Micro and Labs Laboratory Tests Test 11/14/17 05:00 White Blood Count 12.2 Red Blood Count 3.46 Hemoglobin 9.2 Hematocrit 28.9 Mean Corpuscular Volume 83.6 Mean Corpuscular Hemoglobin 26.7 Mean Corpuscular Hemoglobin Concent 31.9 Red Cell Distribution Width 19.5 Platelet Count 145 Mean Platelet Volume 9.9 Neutrophils (%) (Auto) 82.9 Lymphocytes (%) (Auto) 7.0 Monocytes (%) (Auto) 7.4 Eosinophils (%) (Auto) 2.4 Basophils (%) (Auto) 0.3 Neutrophils # (Auto) 10.1 Lymphocytes # (Auto) 0.9 Monocytes # (Auto) 0.9 Eosinophils # (Auto) 0.3 Basophils # (Auto) 0.0 CBC Comment DIFF FINAL Differential Comment Activated Partial Thromboplast Time 25.6 Ammonia 42 Date/Time Source Procedure Growth Status 11/12/17 09:45 Blood Peripheral Aerobic Blood Culture - Preliminary NO GROWTH IN 1 DAY Resulted 11/12/17 09:45 Blood Peripheral Anaerobic Blood Culture - Preliminary NO GROWTH IN 1 DAY Resulted 11/01/17 20:00 Stool Stool Stool Occult Blood (NANI) - Final HEMOCCULT NEGATIVE Complete 11/05/17 10:58 Sputum Endotracheal Gram Stain - Final Complete 11/05/17 10:58 Sputum Endotracheal Sputum Culture - Final NO GROWTH IN 48 HOURS. Complete 11/12/17 10:45 Urine Catheterized Urine Urine Culture - Preliminary Yeast-Id To Follow Resulted Problem Qualifiers (1) Atrial fibrillation: Qualified Codes: I48.2 - Chronic atrial fibrillation Jose Eduardo Snell MD November 14, 2017 08:34
[2017-11-14] MEDS ORDERED: BACITRACIN TOP OINT 15 GM TUBE TOPICAL SCH (09:00)
[2017-11-14] MEDS: SODIUM CHLORIDE 0.9% FLUSH 10 ML FLUSH IV FLUSH SCH (09:00)
[2017-11-14] MEDS: DOCUSATE SODIUM 50 MG/SENNA 8.6 MG TAB PO SCH (09:00)
[2017-11-14] MEDS ORDERED: POVIDONE IODINE 10% EXTERNAL SCH (09:00)
[2017-11-14] MEDS: ALBUMIN 25% INJ 50 ML IV SCH (09:04)
[2017-11-14] MEDS: FLUoxetine HCL 20 MG CAP PO SCH (09:05)
[2017-11-14] MEDS: VENLAFAXINE HCL XR 75 MG CAP PO SCH (09:05)
[2017-11-14] MEDS: AMIODARONE 200 MG TAB PO SCH (09:06)
[2017-11-14] MEDS: RIFAXIMIN 550 MG TAB PO SCH (09:06)
[2017-11-14] MEDS: FLUCONAZOLE 100 MG TAB PO SCH (09:13)
[2017-11-14] MEDS ORDERED: DOCUSATE SODIUM 50 MG/SENNA 8.6 MG TAB PO PRN (10:00)
[2017-11-14] MEDS ORDERED: PILL SPLITTER OTHER PRN (10:15)
--- NOTE | 2017-11-14 10:44 | HHI.FPPN ---
Subjective Remarks Mrs. Marroquin was afebrile with stable vital signs overnight. Per EMR, patient with 2500ml urine output overnight. Patient accompanied by her who supplemented history. She had difficulty sleeping overnight due to leaking of her rectal tube and diarrhea overnight. Patient has had some improvement in strength of her upper extremities. No chest pain or shortness of breath. No urinary changes. Objective Vitals Vital Signs Date Time Temp Pulse Resp B/P (MAP) Pulse Ox O2 Delivery O2 Flow Rate FiO2 11/14/17 07:15 98.4 73 18 145/76 (99) 99 11/14/17 07:15 99 Room Air 11/14/17 07:00 72 11/14/17 05:59 72 11/14/17 05:00 71 11/14/17 04:05 75 11/14/17 03:53 97.7 20 18 137/74 (95) 97 11/14/17 02:00 74 11/14/17 01:00 82 11/13/17 23:00 72 11/13/17 22:54 98.8 75 18 131/68 (89) 96 11/13/17 22:00 Room Air 11/13/17 21:00 71 11/13/17 20:00 Room Air 11/13/17 20:00 97.7 77 18 146/73 (97) 99 11/13/17 16:00 79 11/13/17 16:00 98.8 79 16 135/83 (100) 98 11/13/17 15:31 72 29 128/59 (82) 97 11/13/17 15:00 78 11/13/17 15:00 78 25 141/71 (94) 96 11/13/17 14:30 78 20 147/63 (91) 99 11/13/17 14:00 79 23 136/65 (88) 99 11/13/17 14:00 79 11/13/17 13:30 77 22 123/59 (80) 100 11/13/17 13:00 77 28 140/63 (88) 100 11/13/17 13:00 77 11/13/17 12:30 77 28 123/60 (81) 100 11/13/17 12:00 98.0 66 18 115/59 (77) 100 11/13/17 12:00 66 11/13/17 11:04 99 Nasal Cannula 2.00 11/13/17 11:00 63 11/13/17 11:00 63 26 115/56 (75) 99 11/13/17 10:30 72 5 102/51 (68) 99 I/O 11/13/17 11/13/17 11/13/17 11/14/17 11/14/17 11/14/17 07:00 15:00 23:00 07:00 15:00 23:00 Intake Total 4936 ml 749 ml 720 ml 700 ml Output Total 2025 ml 1000 ml 1500 ml Balance 2911 ml 749 ml -280 ml -800 ml Intake Oral 720 ml 700 ml IV Total 4936 ml 749 ml Output Urine Total 1225 ml 700 ml 900 ml Stool Total 800 ml 300 ml 600 ml Result Diagram: 11/14/17 0500 11/13/17 0330 Imaging Last Impressions Chest X-Ray 11/12/17 0000 Signed Impressions: CONCLUSION: Slight interval worsening in aeration, particularly at the left ritika g base Brain MRI 11/10/17 0000 Signed Impressions: Service Date/Time: Friday, November 10, 2017 14:00 - CONCLUSION: 1. Stable examination. Specifically, no acute infarction, hemorrhage or mass. 2. Senescent changes with periventricular white matter ischemic demyelination and focal lacunar type infarct in the right centrum semiovale. César Coats MD Liver Ultrasound 11/07/17 0000 Signed Impressions: Service Date/Time: October 08:05 - CONCLUSION: 1. Heterogeneous liver suggestive of hepatocellular disease such as cirrhosis. There is a small amount of ascites surrounding the liver. This is not significantly changed compared to the recent CT scan of the abdomen. 2. Sludge in the gallbladder. No definite gallstones or biliary tract obstruction. 3. Mild splenomegaly. 4. Mild hydronephrosis of the right collecting system. Markie Crabtree MD Head CT 11/06/17 0000 Signed Impressions: Service Date/Time: Monday, November 06, 2017 10:03 - CONCLUSION: 1. No acute intracranial abnormality or significant interval change. César Coats MD Abdomen X-Ray 11/04/17 0000 Signed Impressions: Service Date/Time: Saturday, November 04, 2017 17:50 - CONCLUSION: Nonspecific intestinal gas pattern Jose Wright MD Abdomen/Pelvis CT 10/31/17 1321 Signed Impressions: Service Date/Time: October 13:58 - CONCLUSION: 1. Development of innumerable small sclerotic lesions in the skeleton most characteristic of sclerotic bony metastatic disease. There is a reported history of malignancy. 2. Hepatomegaly with development of mild ascites. 3. Persistent moderate hydronephrosis with perinephric stranding similar to February 2017. Interval development of mild anasarca. 4. Gallbladder sludge. Jacobsen catheter in bladder. Samuel Lin MD Lung Scan-V Nuclear Medicine 10/31/17 0000 Signed Impressions: Service Date/Time: October 15:00 - CONCLUSION: Low probability scan for pulmonary embolism Jose Wright MD Objective Remarks GENERAL: This is a well-nourished, well-developed patient. Alert and conversant. Eyes: No pupil asymmetry appreciated. EOM grossly intact. Skin: No visible lesions CARDIOVASCULAR: irregular rate and rhythm; 3/6 murmur. Normal distal LE perfusion bilaterally RESPIRATORY: Normal rate. No focal congestion or wheezing to auscultation GASTROINTESTINAL: Abdomen soft, distended. Normal bowel sounds. MUSCULOSKELETAL: No calf asymmetry or pain to palpation NEUROLOGICAL: talkative and conversant and oriented. No cranial nerve or peripheral motor/sensory deficits; patient weak A/P Assessment and Plan Patient is a 72-year-old admitted due to septic shock from urinary source; patient also with sclerotic bony lesions concerning for colon cancer metastasis. Due to respiratory decline/multiorgan failure, patient on ventilator 11/02. Critical care, Nephrology, and infectious disease consulted. Patient extubated ; has had altered mental status since extubation but improving currently still very weak and considering rehab for her Discharge Planning full code Problem List: (1) Sepsis ICD Codes: A41.9 - Sepsis, unspecified organism Status: Resolved Plan: Impression: Septic shock on admission; labs suggestive of multiorgan dysfunction. Patient initially required >4 L crystalloids and was placed on pressors. E coli from urinary source. Patient developed respiratory failure and required intubation. Subsequently, patient found to have C diff colitis Labs: Cr: 2.10 (10/31)-> 3.53 (11/04) -> 2.84 (11/05) -> 2.29-> 1.81 (11/07) -> 1.48 (11/08 ) -> 1.24 (11/11) -> 0.92 (11/13) WBC: 15.8 (10/31)-> 2.1 (11/02)-> 20.3 (11/03) -> 17.7 (11/04) -> 22.2 (11/06) -> 25 (11/07) -> 21.9 (11/08) -> 17.7 (11/11)-> 15.3 (11/13)-> 12.2 (11/14) Lactic acid: 3 (10/31) -> 3.3 (11/02) -Continue antibiotic therapy -Infectious disease consulted -Started on Fluconazole 100mg daily (11/14-) -Continue Zosyn (11/10- ) -Continue Vancomycin 125mg PO q 6hrs 11/10 -Monitor cultures, temps -Continue to monitor CBC, BMP, urine output Antibiotic history: s/p Meropenem 2gm q12hrs IV -s/p Zosyn 2.5mg q6hrs (10/31-11/02) -s/p Tobramycin IV x1 11/02 -s/p Rocephin 11/03-11/06 -s/p Cefepime 2gm IV BID -s/p Levofloxacin 11/10 Cultures: -Urine culture 11/12- yeast -11/10- C diff PCR + 11/05 -Sputum culture negative x48hrs 10/31- blood x2 taylor sensitive E Coli 10/31- urine- taylor sensitive E coli 11/02- blood x2- negative x5 days (2) ASH (acute kidney injury) ICD Codes: N17.9 - Acute kidney failure, unspecified Status: Acute Plan: 11/13 : Cr improved to baseline; normal urine output. Impression: renal injury presumed secondary to septic shock/multiorgan dysfunction Cr- 2.12 on admission-> 2.59 (11/02) -> 3.53 (11/04) -> downtending (0.92 11/13) CT abdomen/pelvis- moderate hydronephrosis w/ perinephric stranding similar to . Interval development of mild anasarca. -Continue to monitor urine output w/ jacobsen -Nephrology consulted -Signed off 11/12 due to improvement -Continue antibiotics -Continue to monitor urine output/BMP -Ca replacement -Urology consulted for hydronephrosis -Continue Jacobsen, antibiotics -Do not suspect obstruction; do not recommend stent placement -Recommend renal US next week (mild hydronephrosis still present on R -11/07) (3) Elevated LFTs ICD Codes: R79.89 - Other specified abnormal findings of blood chemistry Status: Resolved Plan: Impression: Patient with normal LFT's on admission-> mild transaminase elevations: (11/02- TBILI 1.7, AST 122, ALT 62, ALKP 54 -> 11/07- TBILI 1.4, AST 77, ALT 122, ALKP65) Suspect likely related to sepsis/organ injury Labs: Ceruloplasmin 37, [id number] 225, Hep panel negative JELANI+; titer >1:1280; speckled pattern -Continue to monitor LFT's -Liver US per CC- heterogenous liver suggestive of hepatocellular disease such as cirrhosis. Small ascites; not recently changed since last CT. Sludge in gallbladder; no definite gallstones. Mild splenomegaly. Mild hydronephrosis -Ceftriaxone stopped per ID -Gastroenterology consulted; signed off after improvement -Continue Rifaximin -Will reduce lactulose dose due to current diarrhea -monitor labs (4) UTI (urinary tract infection) ICD Codes: N39.0 - Urinary tract infection, site not specified Status: Resolved Plan: Impression: UA with large leukocyte esterase, innumerable WBCs, many WBC clumps Urine culture and blood cultures 10/31 with pansensitive E Coli -Management as above for sepsis (5) Hypertension ICD Codes: I10 - Essential (primary) hypertension Status: Chronic Plan: Impression: PMH HTN. Initial hypotension on admission w/ septic shock. Now intermittent hypertension based on agitation/sedation -Continue to monitor; management per CC -Continue Metoprolol 25mg q8 hrs -Hydralazine 20mg IV q4hrs PRN -Clonidine 0.2mg PRN -Labetalol 10mg IV q4hrs PRN (6) Atrial fibrillation ICD Codes: I48.91 - Unspecified atrial fibrillation Status: Chronic Plan: Impression: patient placed on amiodarone drip and given digoxin for afib with RVR on admission. Patient currently with normal rate/sinus rhythm. Patient with reported history of moderate mitral stenosis and mild/moderate aortic stenosis Echocardiogram- moderate concentric LVF. EF 70%. Aortic sclerosis present. 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 [id number]. s/p Zeloda 08/2016. Abdomen/Pelvis CT 10/31/17: Innumerable small sclerotic lesions in the skeleton, most characteristic of sclerotic bony metastatic disease -Dr. Candelario consulted -recent bone scan w/o uptake; reassuring regarding sclerotic lesions -plan for PET as outpatient -Continue heparin, treatment for sepsis (8) Weakness ICD Codes: R53.1 - Weakness Status: Acute Plan: -PT consulted -Planned discharge to SNF; OT recommended -ST- signed off -OT- recommend rehab (9) Clostridium difficile infection ICD Codes: B96.89 - Other specified bacterial agents as the cause of diseases classified elsewhere Status: Acute Plan: Impression: Diarrhea; C diff toxin PCR + -Continue oral vancomycin 125mg q6hrs PO (10) Diabetes mellitus, type II ICD Codes: E11.9 - Type 2 diabetes mellitus Status: Chronic Plan: Will hold home medications -Low dose SSI -Continue to monitor blood sugar (11) Hypothyroidism ICD Codes: E03.9 - Hypothyroidism Status: Chronic Plan: Continue home Levothyroxine (12) Altered mental state ICD Codes: R41.82 - Altered mental status, unspecified Status: Resolved Plan: 11/13- alert/oriented. Resolved mental status Impression: Persistent lack of orientation after extubation 11/05. No focal deficits. History of TIA. On Heparin anticoagulation Imaging: CT head 10/31 on admission (ordered due to confusion on admission; suspected secondary to sepsis) w/o acute findings. Remote lacunar infarct in right frontal white matter Repeat head CT 11/06 without acute intracranial abnormality MRI brain 11/08- chronic changes with some periventricular small vessel ischemic demyelination and old lacunar infarct at junction of R coronal radiata and centrum semiovale MRI brain 11/10- stable exam EEG- moderate encephalopathy with triphasic waveforms; possible she could have nonconvulsive seizures Labs: Leukocytosis. Some hypocalcemia. Normal sodium. Ammonia 76 11/06 -> 39 (11/08) -> 33 11/10 LFT elevations- 11/02-11/08- (TBILI mild elevation, mild AST and ALT elevations normal ALKP); subsequently normal values ABG 11/07- pH 7.34, CO2 37, HCO3 20 -Continue management per Critical care; suspect multifactorial. off of sedation since extubation. Suspect possible hepatic encephalopathy as component plus may have been uremic -Neurology consulted-appreciate recs -Likely metabolic encephalopathy -Antibiotic therapy changed to Zosyn to avoid possible encephalopathy from Cefepime -Continue IV Celebrex -Hyperammonemia -Continue Lactulose TID -rifaximin 550mg BID added -Monitor ammonia which dropped dramatically -Supportive care; monitor labs -Will resume normal feeding -palliative care spoke to pt's as she has been through so many severe medical problems. he is optimistic as she is recovering (13) Positive JELANI (antinuclear antibody) ICD Codes: R76.8 - Other specified abnormal immunological findings in serum Plan: has speckled pattern and markedly positive. unclear at this point what the significance is. will ask for more information tomorrow. she will have elevated inflammatory markers now because of her infection and other illness she has currently. can determine by history if she may have lupus or another illness (14) FEN/PPX Plan: Fluid: Will hold IVF and monitor I/O Electrolytes: Continue to monitor; replacement per protocol Nutrition: Will resume normal diet DVT PPX: Xarelto 20mg daily Problem Qualifiers (1) Sepsis: Qualified Codes: A41.9 - Sepsis, unspecified organism (2) UTI (urinary tract infection): (3) Hypertension: Qualified Codes: I10 - Essential (primary) hypertension (4) Atrial fibrillation: Qualified Codes: I48.2 - Chronic atrial fibrillation (5) Diabetes mellitus, type II: Qualified Codes: E11.8 - Type 2 diabetes mellitus with unspecified complications (6) Hypothyroidism: Qualified Codes: E03.9 - Hypothyroidism, unspecified Oscar Santos MD R3 November 14, 2017 10:44
[2017-11-14] MEDS ORDERED: DEXTROSE 50% IN WATER 50 ML VIAL(D50) IV PUSH PRN (10:45)
[2017-11-14] MEDS ORDERED: GLUCAGON 1 MG/ML VIAL OTHER PRN (10:45)
[2017-11-14 11:37] LABS: ALBUMIN 2.7 GM/DL (3.4-5.0); AST (GOT) 33 U/L (15-37); BICARBONATE 23.1 MEQ/L (21.0-32.0); BLOOD UREA NITROGEN 14 MG/DL (7-18); CALCIUM 8.3 MG/DL (8.5-10.1); CHLORIDE 107 MEQ/L (98-107); CREATININE 0.89 MG/DL (0.50-1.00); GLOMERULAR FILTRATION RATE 63 ML/MIN (>89); GLUCOSE,RANDOM 119 MG/DL (74-106); SODIUM (NA) 140 MEQ/L (136-145)
[2017-11-14 11:41] LABS: ALKALINE PHOSPHATASE 206 U/L (45-117); ALT (GPT) 38 U/L (10-53); PHENYTOIN (DILANTIN) 5.7 MCG/ML (10.0-20.0); TOTAL BILIRUBIN ADULT 0.6 MG/DL (0.2-1.0); TOTAL PROTEIN 6.7 GM/DL (6.4-8.2)
[2017-11-14] MEDS: INSULIN ASPART SUPPLEMENTAL SCALE SQ SCH ×3 (12:00→21:00)
[2017-11-14] MEDS: hydrALAZINE HCL 20 MG/ML VIAL IV PUSH PRN (15:15)
[2017-11-14] MEDS: NS + KCL 20 MEQ INJ 1,000 ML IV SCH (17:53)
[2017-11-14] MEDS: SODIUM BICARBONATE 8.4% INJ 50 ML ONE (20:36)
[2017-11-15] VITALS (18 sets, daily range): BP systolic 132–173; BP diastolic 70–91; PULSE 58–80; RESP 16–18; TEMP 96.7–97.7; O2SAT 95–99
[2017-11-15] MEDS: METOPROLOL TARTRATE 25 MG TAB PO SCH ×4 (00:31→21:31)
[2017-11-15] MEDS: SODIUM CHLORIDE 0.9% FLUSH 10 ML FLUSH IV FLUSH SCH ×3 (00:31→21:00)
[2017-11-15] MEDS: LACTULOSE SYRUP 20 GM/30 ML CUP PO SCH ×2 (00:31→09:03)
[2017-11-15] MEDS: FOSPHENYTOIN SODIUM 100 MG PE/2 ML VIAL IV SCH ×4 (00:32→22:00)
[2017-11-15] MEDS: INSULIN DETEMIR 100 UNITS/ML VIAL SQ SCH ×2 (00:33→22:38)
[2017-11-15] MEDS: PIPERACIL-TAZO 3.375 GM PREMIX 50 ML IV SCH ×5 (00:34→21:29)
[2017-11-15] MEDS: RIFAXIMIN 550 MG TAB PO SCH ×2 (00:35→09:03)
[2017-11-15] MEDS: VANCOMYCIN 500 MG VIAL (FOR ORAL USE ONLY) PO SCH ×5 (00:35→21:32)
[2017-11-15] MEDS: ACETAMINOPHEN 325 MG TAB PO PRN ×2 (00:42→23:46)
[2017-11-15] MEDS: TEMAZEPAM 15 MG CAP PO PRN ×2 (01:08→23:46)
[2017-11-15] MEDS: LEVOTHYROXINE SODIUM 50 MCG TAB PO SCH (04:55)
[2017-11-15] MEDS: NS + KCL 20 MEQ INJ 1,000 ML IV SCH ×2 (04:56→16:08)
[2017-11-15 05:27] LABS: AUTOMATED NEUTROPHIL # 7.7 TH/MM3 (1.8-7.7); BASOPHIL % 0.3 % (0.0-2.0); EOSINOPHIL # 0.2 TH/MM3 (0-0.4); EOSINOPHIL % 1.9 % (0.0-4.0); HEMATOCRIT 29.1 % (35.0-46.0); HEMOGLOBIN 9.5 GM/DL (11.6-15.3); LYMPH % 9.4 % (9.0-44.0); LYMPHOCYTE # 0.9 TH/MM3 (1.0-4.8); MEAN CELL VOLUME 84.3 FL (80.0-100.0); MEAN CORPUSCULAR HEMOGLOBIN 27.5 PG (27.0-34.0); MEAN CORPUSCULAR HGB CONC 32.6 % (32.0-36.0); MEAN PLATELET VOLUME 10.1 FL (7.0-11.0); MONO % 9.3 % (0.0-8.0); MONOCYTE # 0.9 TH/MM3 (0-0.9); NEUT % 79.1 % (16.0-70.0); PLATELET COUNT 177 TH/MM3 (150-450); RED BLOOD COUNT 3.45 MIL/MM3 (4.00-5.30); RED CELL DISTRIBUTION WIDTH 20.7 % (11.6-17.2); WHITE BLOOD COUNT 9.7 TH/MM3 (4.0-11.0)
[2017-11-15 05:50] LABS: ALBUMIN 2.6 GM/DL (3.4-5.0); ALT (GPT) 27 U/L (10-53); AST (GOT) 27 U/L (15-37); BICARBONATE 23.7 MEQ/L (21.0-32.0); BLOOD UREA NITROGEN 10 MG/DL (7-18); CHLORIDE 108 MEQ/L (98-107); CREATININE 0.74 MG/DL (0.50-1.00); GLOMERULAR FILTRATION RATE 77 ML/MIN (>89); GLUCOSE,RANDOM 118 MG/DL (74-106); SODIUM (NA) 143 MEQ/L (136-145)
[2017-11-15 05:52] LABS: ALKALINE PHOSPHATASE 197 U/L (45-117); PHENYTOIN (DILANTIN) 4.3 MCG/ML (10.0-20.0); TOTAL BILIRUBIN ADULT 0.6 MG/DL (0.2-1.0); TOTAL PROTEIN 6.6 GM/DL (6.4-8.2)
[2017-11-15] MEDS: INSULIN ASPART SUPPLEMENTAL SCALE SQ SCH ×4 (08:00→21:00)
[2017-11-15] MEDS: AMIODARONE 200 MG TAB PO SCH (09:02)
[2017-11-15] MEDS: FLUCONAZOLE 100 MG TAB PO SCH (09:02)
[2017-11-15] MEDS: RIVAROXABAN 20 MG TAB PO SCH (09:02)
[2017-11-15] MEDS: VENLAFAXINE HCL XR 75 MG CAP PO SCH (09:03)
--- NOTE | 2017-11-15 10:24 | MG ---
cc: Meño Castillo MD EEG NUMBER: [id number] HISTORY: History of head trauma, vomiting. MEDICATIONS: Insulin, Effexor, Cerebyx. DESCRIPTION OF RECORD: Some diffuse 6-7 Hz rhythms are noted. She appears to be in stage II sleep to start the recording. She is talking and some rhythmic 5 Hz slowing is noted bilaterally with talking. I so not see any epileptiform or seizure activity. Photic stimulation was performed without significant posterior driving. IMPRESSION: Some diffuse 5 Hz slowing consistent with a moderate diffuse encephalopathy. No focal abnormality was noted. No seizure activity was seen. MD SIA Oquendo/DAVID , 10:11 AM , 10:23 AM
--- NOTE | 2017-11-15 10:35 | HHI.FPPN ---
Subjective Remarks Mrs. Marroquin was afebrile with stable vital signs overnight. Intermittent hypertension to MAP 119 yesterday. 1600ml total stool/urine output yesterday; I/ O balance -550ml. Patient accompanied by her who supplemented history. patient had some difficulty with stool leakage from rectal tube overnight. No chest pain or shortness of breath. No abdominal pain reported. Objective Vitals Vital Signs Date Time Temp Pulse Resp B/P (MAP) Pulse Ox O2 Delivery O2 Flow Rate FiO2 11/15/17 06:00 66 11/15/17 05:00 68 11/15/17 04:00 71 16 95 11/15/17 03:00 66 11/15/17 02:15 16 11/15/17 02:00 70 11/15/17 01:00 70 11/15/17 00:00 80 11/15/17 00:00 71 11/15/17 00:00 71 18 98 11/15/17 00:00 80 16 99 11/14/17 23:00 76 11/14/17 22:00 72 11/14/17 21:00 78 11/14/17 20:16 Nasal Cannula 2.00 11/14/17 20:00 74 11/14/17 20:00 74 18 173/81 (111) 100 11/14/17 19:00 76 11/14/17 18:00 68 11/14/17 17:00 79 11/14/17 16:00 68 11/14/17 15:00 69 11/14/17 15:00 97.6 84 19 189/84 (119) 100 11/14/17 14:00 63 11/14/17 13:07 145/79 (101) 11/14/17 13:00 64 11/14/17 12:00 64 11/14/17 11:00 98.5 65 17 157/72 (100) 98 11/14/17 11:00 60 I/O 11/14/17 11/14/17 11/14/17 11/15/17 11/15/17 11/15/17 07:00 15:00 23:00 07:00 15:00 23:00 Intake Total 700 ml 280 ml 770 ml Output Total 1500 ml 1600 ml Balance -800 ml 280 ml -830 ml Intake Oral 700 ml 720 ml IV Total 280 ml 50 ml Output Urine Total 900 ml 1100 ml Stool Total 600 ml 500 ml Result Diagram: 11/15/17 0510 11/15/17 0510 Imaging Last Impressions Chest X-Ray 11/12/17 0000 Signed Impressions: CONCLUSION: Slight interval worsening in aeration, particularly at the left ritika g base Brain MRI 11/10/17 0000 Signed Impressions: Service Date/Time: Friday, November 10, 2017 14:00 - CONCLUSION: 1. Stable examination. Specifically, no acute infarction, hemorrhage or mass. 2. Senescent changes with periventricular white matter ischemic demyelination and focal lacunar type infarct in the right centrum semiovale. César Coats MD Liver Ultrasound 11/07/17 0000 Signed Impressions: Service Date/Time: October 08:05 - CONCLUSION: 1. Heterogeneous liver suggestive of hepatocellular disease such as cirrhosis. There is a small amount of ascites surrounding the liver. This is not significantly changed compared to the recent CT scan of the abdomen. 2. Sludge in the gallbladder. No definite gallstones or biliary tract obstruction. 3. Mild splenomegaly. 4. Mild hydronephrosis of the right collecting system. Markie Crabtree MD Head CT 11/06/17 0000 Signed Impressions: Service Date/Time: Monday, November 06, 2017 10:03 - CONCLUSION: 1. No acute intracranial abnormality or significant interval change. César Coats MD Abdomen X-Ray 11/04/17 0000 Signed Impressions: Service Date/Time: Saturday, November 04, 2017 17:50 - CONCLUSION: Nonspecific intestinal gas pattern Jose Wright MD Abdomen/Pelvis CT 10/31/17 1321 Signed Impressions: Service Date/Time: October 13:58 - CONCLUSION: 1. Development of innumerable small sclerotic lesions in the skeleton most characteristic of sclerotic bony metastatic disease. There is a reported history of malignancy. 2. Hepatomegaly with development of mild ascites. 3. Persistent moderate hydronephrosis with perinephric stranding similar to February 2017. Interval development of mild anasarca. 4. Gallbladder sludge. Jacobsen catheter in bladder. Samuel Lin MD Lung Scan- Nuclear Medicine 10/31/17 0000 Signed Impressions: Service Date/Time: October 15:00 - CONCLUSION: Low probability scan for pulmonary embolism Jose Wright MD Objective Remarks GENERAL: This is a well-nourished, well-developed patient. Alert and conversant. Eyes: No pupil asymmetry appreciated. EOM grossly intact. Skin: No visible lesions CARDIOVASCULAR: irregular rate and rhythm; 3/6 murmur. Normal distal LE perfusion bilaterally RESPIRATORY: Normal rate. No focal congestion or wheezing to auscultation GASTROINTESTINAL: Abdomen soft, distended. Normal bowel sounds. MUSCULOSKELETAL: No calf asymmetry or pain to palpation. No LE edema NEUROLOGICAL: talkative and conversant and oriented. No cranial nerve or peripheral motor/sensory deficits; patient with significant weakness A/P Assessment and Plan Patient is a 72-year-old admitted due to septic shock from urinary source; patient also with sclerotic bony lesions concerning for colon cancer metastasis. Due to respiratory decline/multiorgan failure, patient on ventilator 11/02. Critical care, Nephrology, and infectious disease consulted. Patient extubated ; has had altered mental status since extubation but improving currently still very weak and considering rehab for her Discharge Planning Anticipate discharge to SNF in the next several days Problem List: (1) Sepsis ICD Codes: A41.9 - Sepsis, unspecified organism Status: Resolved Plan: Impression: Septic shock on admission; labs suggestive of multiorgan dysfunction. Patient initially required >4 L crystalloids and was placed on pressors. E coli from urinary source. Patient developed respiratory failure and required intubation; possible concern for aspiration also. Subsequently, patient found to have C diff colitis Labs: Cr: 2.10 (10/31)-> 3.53 (11/04) -> 2.84 (11/05) -> 2.29-> 1.81 (11/07) -> 1.48 (11/08 ) -> 1.24 (11/11) -> 0.92 (11/13) -> 0.74 (11/15) WBC: 15.8 (10/31)-> 2.1 (11/02)-> 20.3 (11/03) -> 17.7 (11/04) -> 22.2 (11/06) -> 25 (11/07) -> 21.9 (11/08) -> 17.7 (11/11)-> 15.3 (11/13)-> 12.2 (11/14) -> 9.7 (11/15) Lactic acid: 3 (10/31) -> 3.3 (11/02) -Continue antibiotic therapy -Infectious disease consulted -Started on Fluconazole 100mg daily (11/14-) -Continue Zosyn (11/10- ) -Continue Vancomycin 125mg PO q 6hrs 11/10 -Monitor cultures, temps -Continue to monitor CBC, BMP, urine output Antibiotic history: s/p Meropenem 2gm q12hrs IV -s/p Zosyn 2.5mg q6hrs (10/31-11/02) -s/p Tobramycin IV x1 11/02 -s/p Rocephin 11/03-11/06 -s/p Cefepime 2gm IV BID -s/p Levofloxacin 11/10 Cultures: -Urine culture 11/12- Debra Glabrata -11/10- C diff PCR + 11/05 -Sputum culture negative x48hrs 10/31- blood x2 taylor sensitive E Coli 10/31- urine- taylor sensitive E coli 11/02- blood x2- negative x5 days (2) ASH (acute kidney injury) ICD Codes: N17.9 - Acute kidney failure, unspecified Status: Acute Plan: Impression: renal injury presumed secondary to septic shock/multiorgan dysfunction Cr- 2.12 on admission-> 2.59 (11/02) -> 3.53 (11/04) -> downtrended to WNL CT abdomen/pelvis- moderate hydronephrosis w/ perinephric stranding similar to . Interval development of mild anasarca. -Continue to monitor urine output w/ jacobsen -Nephrology consulted -Signed off 11/12 due to improvement -Continue antibiotics -Continue to monitor urine output/BMP -Ca replacement -Urology consulted for hydronephrosis -Continue Jacobsen, antibiotics -Do not suspect obstruction; do not recommend stent placement -Recommend renal US next week (mild hydronephrosis still present on R -11/07) (3) Elevated LFTs ICD Codes: R79.89 - Other specified abnormal findings of blood chemistry Status: Resolved Plan: Impression: Patient with normal LFT's on admission-> mild transaminase elevations: (11/02- TBILI 1.7, AST 122, ALT 62, ALKP 54 -> 11/07- TBILI 1.4, AST 77, ALT 122, ALKP65) Suspect likely related to sepsis/organ injury Labs: Ceruloplasmin 37, [id number] 225, Hep panel negative JELANI+; titer >1:1280; speckled pattern Liver US per CC- heterogenous liver suggestive of hepatocellular disease such as cirrhosis. Small ascites; not recently changed since last CT. Sludge in gallbladder; no definite gallstones. Mild splenomegaly. Mild hydronephrosis -Continue to monitor LFT's -Ceftriaxone stopped per ID -Gastroenterology consulted; signed off after improvement -Will plan to further reduce lactulose and Rifaximin dose due to current diarrhea (4) UTI (urinary tract infection) ICD Codes: N39.0 - Urinary tract infection, site not specified Status: Resolved Plan: Impression: UA with large leukocyte esterase, innumerable WBCs, many WBC clumps Urine culture and blood cultures 10/31 with pansensitive E Coli -Management as above for sepsis (5) Hypertension ICD Codes: I10 - Essential (primary) hypertension Status: Chronic Plan: Impression: PMH HTN. Initial hypotension on admission w/ septic shock. Now intermittent hypertension based on agitation/sedation -Continue to monitor; management per CC -Continue Metoprolol 25mg q8 hrs -Hydralazine 20mg IV q4hrs PRN -Clonidine 0.2mg PRN -Labetalol 10mg IV q4hrs PRN (6) Atrial fibrillation ICD Codes: I48.91 - Unspecified atrial fibrillation Status: Chronic Plan: Impression: patient placed on amiodarone drip and given digoxin for afib with RVR on admission. Patient currently with normal rate/sinus rhythm. Patient with reported history of moderate mitral stenosis and mild/moderate aortic stenosis Echocardiogram- moderate concentric LVF. EF 70%. Aortic sclerosis present. 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 [id number]. s/p Zeloda 08/2016. Abdomen/Pelvis CT 10/31/17: Innumerable small sclerotic lesions in the skeleton, most characteristic of sclerotic bony metastatic disease -Dr. Candelario consulted -recent bone scan w/o uptake; reassuring regarding sclerotic lesions -plan for PET as outpatient -Continue heparin, treatment for sepsis (8) Weakness ICD Codes: R53.1 - Weakness Status: Acute Plan: -PT consulted -Planned discharge to SNF; OT recommended -ST- signed off -OT- recommend rehab (9) Clostridium difficile infection ICD Codes: B96.89 - Other specified bacterial agents as the cause of diseases classified elsewhere Status: Acute Plan: Impression: Diarrhea; C diff toxin PCR + -Continue oral vancomycin 125mg q6hrs PO (10) Diabetes mellitus, type II ICD Codes: E11.9 - Type 2 diabetes mellitus Status: Chronic Plan: Will hold home medications -Low dose SSI -Continue to monitor blood sugar (11) Hypothyroidism ICD Codes: E03.9 - Hypothyroidism Status: Chronic Plan: Continue home Levothyroxine (12) Altered mental state ICD Codes: R41.82 - Altered mental status, unspecified Status: Resolved Plan: 11/15- alert/oriented. Resolved mental status Impression: Persistent lack of orientation after extubation 11/05. No focal deficits. History of TIA. On Heparin anticoagulation Imaging: CT head 10/31 on admission (ordered due to confusion on admission; suspected secondary to sepsis) w/o acute findings. Remote lacunar infarct in right frontal white matter Repeat head CT 11/06 without acute intracranial abnormality MRI brain 11/08- chronic changes with some periventricular small vessel ischemic demyelination and old lacunar infarct at junction of R coronal radiata and centrum semiovale MRI brain 11/10- stable exam EEG 11/11- moderate encephalopathy with triphasic waveforms; possible she could have nonconvulsive seizures EEG 11/15- moderate encephalopathy; no focal abnormality. No seizure activity seen Labs: Leukocytosis. Some hypocalcemia. Normal sodium. Ammonia 76 11/06 -> 39 (11/08) -> 33 11/10-> 38 11/15 LFT elevations- 11/02-11/08- (TBILI mild elevation, mild AST and ALT elevations normal ALKP); subsequently normal values with exception of mild Alk P elevation ABG 11/07- pH 7.34, CO2 37, HCO3 20 -Continue management per Critical care; suspect multifactorial. off of sedation since extubation. Suspect possible hepatic encephalopathy as component plus may have been uremic -Neurology consulted-appreciate recs -Likely metabolic encephalopathy -Antibiotic therapy changed to Zosyn to avoid possible encephalopathy from Cefepime -Continue IV Celebrex -Hyperammonemia -Continue Lactulose BID -rifaximin 550mg BID added -Monitor ammonia which dropped dramatically -Supportive care; monitor labs -Will resume normal feeding -palliative care spoke to pt's as she has been through so many severe medical problems. he is optimistic as she is recovering (13) Positive JELANI (antinuclear antibody) ICD Codes: R76.8 - Other specified abnormal immunological findings in serum Plan: JELANI 1: 1280. has speckled pattern and markedly positive. unclear at this point what the significance is -Will await rheumatologic labs -Will plan to acquire further history regarding possibility of lupus or other illness (14) FEN/PPX Plan: Fluid: Will hold IVF and monitor I/O Electrolytes: Continue to monitor; replacement per protocol Nutrition: normal diet DVT PPX: Xarelto 20mg daily Problem Qualifiers (1) Sepsis: Qualified Codes: A41.9 - Sepsis, unspecified organism (2) UTI (urinary tract infection): (3) Hypertension: Qualified Codes: I10 - Essential (primary) hypertension (4) Atrial fibrillation: Qualified Codes: I48.2 - Chronic atrial fibrillation (5) Diabetes mellitus, type II: Qualified Codes: E11.8 - Type 2 diabetes mellitus with unspecified complications (6) Hypothyroidism: Qualified Codes: E03.9 - Hypothyroidism, unspecified Oscar Santos MD R3 November 15, 2017 10:35
[2017-11-15 11:51] LABS: C3 SERUM 84 mg/dL (83-193); C4 SERUM 17 mg/dL (15-57); RHEUMATOID FACTOR 43 IU/mL (<14)
[2017-11-15 13:52] LABS: DNA ABS DS CRITHIDIA IFA <1 IU/mL; RIBOSOMAL P AB <1.0 NEG AI (<1.0 NEGATIVE); SCL-70 AB <1.0 NEG AI (<1.0 NEGATIVE); SM AB <1.0 NEG AI (<1.0 NEGATIVE); SM/RNP AB <1.0 NEG AI (<1.0 NEGATIVE)
--- NOTE | 2017-11-15 14:03 | PD.WCN.NOT ---
Wound Consult Description: Received consult from Doctor Santos, pressure ulcer to sacral area, patient declined inspection from Doctor Santos Communicated with: GEORGI Bhatti and Doctor Santos Recommendation: 1.Please cleanse buttock and labia area with Remedy barrier wipes to remove stool gently from skin. Apply Calazime skin protectant paste to bilateral buttocks and labia area in thick layer BID and PRN covering open partial thickness wounds to the bilateral inner buttock area. 2.Please turn patient every 2 hours and PRN for comfort and offloading vaishnavi prominences. 3. Only use ultra sorb pad for incontinence management, DO NOT use cloth pads. Additional Information: Patient seen on [facility] for evaluation of pressure ulcer to sacral area. Patient was seen with RN NEETA Bhatti, advertising copy writer and Student nurse Stephen. Patient was turned to L side for wound assessment patient is noted with small wounds to bilateral inner buttocks that present as partial thickness, jagged wound margins. Wounds measure ~2cm x~1cm x ~<0.1cm.Etiology periwound presents with denuded peeling skin. Patient is noted with Dignishield in place that is leaking. ultra sorb pad under patient is saturated. External female catheter is also in use. Patient was cleansed of stool with remedy barrier wipes gently.Thick layer of Calazime skin protectant paste was applied by RN covering gluteal cleft, labia areas and bilateral inner buttock wounds . Removed saturated ultra sorb pads and replaced with clean ultra sorb pad.RN is addressing leaking dignishield by checking the balloon and flushing. RN will also replaced external female catheter. Sanjana Goodwin [facility] November 15, 2017 14:03
--- NOTE | 2017-11-15 14:07 | RADRPT ---
EXAM DATE: 11/15/2017 1:59 PM EDT AGE/SEX: 72 years / Female INDICATIONS: Short of breath, evaluate pneumonia CLINICAL DATA: This is the patient's subsequent encounter. Patient reports that signs and symptoms h ave been present for 2 weeks and indicates a pain score of 5/10. MEDICAL/SURGICAL HISTORY: Hypertension. Diabetes mellitus type II. Carcinoma, colon. A-fib Colon resection. oophorectomy COMPARISON: [facility] [place] SING[place], 11/12/2017. . FINDINGS: Right chest port is stable in position. There is persistent consolidative change in the left lung bas e and patchy perihilar infiltrates. Cardiac contours are grossly unchanged. CONCLUSION: No significant interval change Electronically signed by: Jose Wright MD 11/15/2017 2:06 PM EDT
[2017-11-16] VITALS: BP 164/79; PULSE 68; RESP 18; TEMP 96.4; O2SAT 95
[2017-11-16 03:50] LABS: ACTIN AB IGG <20 U
[2017-11-16] MEDS: NS + KCL 20 MEQ INJ 1,000 ML IV SCH ×2 (03:51→16:40)
[2017-11-16] MEDS: PIPERACIL-TAZO 3.375 GM PREMIX 50 ML IV SCH ×4 (03:52→21:08)
[2017-11-16] MEDS: VANCOMYCIN 500 MG VIAL (FOR ORAL USE ONLY) PO SCH ×4 (03:52→21:10)
[2017-11-16] MEDS: FOSPHENYTOIN SODIUM 100 MG PE/2 ML VIAL IV SCH ×3 (03:52→21:10)
[2017-11-16] MEDS: LEVOTHYROXINE SODIUM 50 MCG TAB PO SCH (05:14)
[2017-11-16] MEDS: METOPROLOL TARTRATE 25 MG TAB PO SCH ×3 (05:14→21:10)
[2017-11-16 08:00] VITALS: BP 153/73; PULSE 65; RESP 18; TEMP 97.3; O2SAT 95
[2017-11-16] MEDS: INSULIN ASPART SUPPLEMENTAL SCALE SQ SCH ×4 (08:00→21:00)
--- NOTE | 2017-11-16 10:09 | HHI.FPPN ---
Subjective Remarks Mrs. Marroquin was afebrile with intermittent HTN overnight (max MAP 119). Patient accompanied by her who supplemented history. Patient is still having diarrhea; she had some difficulty from rectal tube leakage overnight. No chest pain, abdominal pain, shortness of breath, or other concerns at this time. Patient has been getting stronger in her upper extremities and is now able to hold a cup. She has been working with physical therapy and occupational therapy. Supplemental history also obtained regarding JELANI +; patient without joint pains , rashes, or history of known rheumatologic disease. Objective Vitals Vital Signs Date Time Temp Pulse Resp B/P (MAP) Pulse Ox O2 Delivery O2 Flow Rate FiO2 11/16/17 08:00 97.3 65 18 153/73 (99) 95 11/16/17 00:00 96.4 68 18 164/79 (107) 95 11/15/17 20:00 96.7 73 18 173/91 (118) 96 11/15/17 18:00 61 11/15/17 17:00 64 11/15/17 16:00 74 11/15/17 15:00 97.7 64 18 132/70 (90) 99 11/15/17 15:00 60 11/15/17 14:00 66 11/15/17 11:00 74 11/15/17 10:45 61 I/O 11/15/17 11/15/17 11/15/17 11/16/17 11/16/17 11/16/17 07:00 15:00 23:00 07:00 15:00 23:00 Intake Total 1700 ml 100 ml Output Total 1300 ml 200 ml Balance 400 ml -100 ml Intake Oral 700 ml IV Total 1000 ml 100 ml Output Urine Total 900 ml Stool Total 400 ml 200 ml Result Diagram: 11/15/17 0510 11/15/17 0510 Imaging Last Impressions Chest X-Ray 11/15/17 0000 Signed Impressions: CONCLUSION: No significant interval change Brain MRI 11/10/17 0000 Signed Impressions: Service Date/Time: Friday, November 10, 2017 14:00 - CONCLUSION: 1. Stable examination. Specifically, no acute infarction, hemorrhage or mass. 2. Senescent changes with periventricular white matter ischemic demyelination and focal lacunar type infarct in the right centrum semiovale. César Coats MD Liver Ultrasound 11/07/17 0000 Signed Impressions: Service Date/Time: October 08:05 - CONCLUSION: 1. Heterogeneous liver suggestive of hepatocellular disease such as cirrhosis. There is a small amount of ascites surrounding the liver. This is not significantly changed compared to the recent CT scan of the abdomen. 2. Sludge in the gallbladder. No definite gallstones or biliary tract obstruction. 3. Mild splenomegaly. 4. Mild hydronephrosis of the right collecting system. Markie Crabtree MD Head CT 11/06/17 0000 Signed Impressions: Service Date/Time: Monday, November 06, 2017 10:03 - CONCLUSION: 1. No acute intracranial abnormality or significant interval change. César Coats MD Abdomen X-Ray 11/04/17 0000 Signed Impressions: Service Date/Time: Saturday, November 04, 2017 17:50 - CONCLUSION: Nonspecific intestinal gas pattern Jose Wright MD Abdomen/Pelvis CT 10/31/17 1321 Signed Impressions: Service Date/Time: October 13:58 - CONCLUSION: 1. Development of innumerable small sclerotic lesions in the skeleton most characteristic of sclerotic bony metastatic disease. There is a reported history of malignancy. 2. Hepatomegaly with development of mild ascites. 3. Persistent moderate hydronephrosis with perinephric stranding similar to February 2017. Interval development of mild anasarca. 4. Gallbladder sludge. Jacobsen catheter in bladder. Samuel Lin MD Lung Scan- Nuclear Medicine 10/31/17 0000 Signed Impressions: Service Date/Time: October 15:00 - CONCLUSION: Low probability scan for pulmonary embolism Jose Wright MD Objective Remarks GENERAL: This is a well-nourished, well-developed patient. Alert and conversant. Eyes: No pupil asymmetry appreciated. EOM grossly intact. Skin: No visible lesions. Buttock skin tears not visualized CARDIOVASCULAR: irregular rate and rhythm; 3/6 murmur. Normal distal LE perfusion bilaterally RESPIRATORY: Normal rate. CTAB; no congestion or wheezing to auscultation GASTROINTESTINAL: Abdomen soft, distended. Normal bowel sounds. MUSCULOSKELETAL: No calf asymmetry or pain to palpation. No LE edema NEUROLOGICAL: talkative and conversant and oriented. No cranial nerve or peripheral motor/sensory deficits; improvement in weakness A/P Assessment and Plan Patient is a 72-year-old admitted due to septic shock from urinary source; patient also with sclerotic bony lesions concerning for colon cancer metastasis. Due to respiratory decline/multiorgan failure, patient on ventilator 11/02. Critical care, Nephrology, and infectious disease consulted. Patient extubated ; has had altered mental status since extubation. Patient since has improved in terms of her mental status. Patient developed Cdiff while intubated and is being treated for Cdiff. She is improving currently and receiving PT and OT Discharge Planning Anticipate discharge to SNF in the next several days Problem List: (1) Sepsis ICD Codes: A41.9 - Sepsis, unspecified organism Status: Resolved Plan: Impression: Septic shock on admission; labs suggestive of multiorgan dysfunction. Patient initially required >4 L crystalloids and was placed on pressors. E coli from urinary source. Patient developed respiratory failure and required intubation; possible concern for aspiration also. Subsequently, patient found to have C diff colitis Labs: Cr: 2.10 (10/31)-> 3.53 (11/04) -> 2.84 (11/05) -> 2.29-> 1.81 (11/07) -> 1.48 (11/08 ) -> 1.24 (11/11) -> 0.92 (11/13) -> 0.74 (11/15) WBC: 15.8 (10/31)-> 2.1 (11/02)-> 20.3 (11/03) -> 17.7 (11/04) -> 22.2 (11/06) -> 25 (11/07) -> 21.9 (11/08) -> 17.7 (11/11)-> 15.3 (11/13)-> 12.2 (11/14) -> 9.7 (11/15) Lactic acid: 3 (10/31) -> 3.3 (11/02) -Continue antibiotic therapy -Infectious disease consulted -Started on Fluconazole 100mg daily (11/14-) -Continue Zosyn (11/10- ) -Continue Vancomycin 125mg PO q 6hrs 11/10 -Monitor cultures, temps -Continue to monitor CBC, BMP, urine output Antibiotic history: s/p Meropenem 2gm q12hrs IV -s/p Zosyn 2.5mg q6hrs (10/31-11/02) -s/p Tobramycin IV x1 11/02 -s/p Rocephin 11/03-11/06 -s/p Cefepime 2gm IV BID -s/p Levofloxacin 11/10 Cultures: -Urine culture 11/12- Debra Glabrata -11/10- C diff PCR + 11/05 -Sputum culture negative x48hrs 10/31- blood x2 taylor sensitive E Coli 10/31- urine- taylor sensitive E coli 11/02- blood x2- negative x5 days (2) Hypertension ICD Codes: I10 - Essential (primary) hypertension Status: Chronic Plan: Impression: PMH HTN. Initial hypotension on admission w/ septic shock. Now intermittent hypertension based on agitation/sedation -Continue to monitor -Continue Metoprolol 25mg q8 hrs -Clonidine 0.qmg PRN q6hrs BP 180/100 -Labetalol 10mg IV q4hrs PRN -Vasotec 1.25mg q8hrs PRN BP >160/90 (3) ASH (acute kidney injury) ICD Codes: N17.9 - Acute kidney failure, unspecified Status: Acute Plan: Impression: renal injury presumed secondary to septic shock/multiorgan dysfunction Cr- 2.12 on admission-> 2.59 (11/02) -> 3.53 (11/04) -> downtrended to WNL CT abdomen/pelvis- moderate hydronephrosis w/ perinephric stranding similar to . Interval development of mild anasarca. -Continue to monitor urine output w/ jacobsen -Nephrology consulted -Signed off 11/12 due to improvement -Continue antibiotics -Continue to monitor urine output/BMP -Ca replacement -Urology consulted for hydronephrosis -Continue Jacobsen, antibiotics -Do not suspect obstruction; do not recommend stent placement -Recommend renal US next week (mild hydronephrosis still present on R -11/07) (4) Elevated LFTs ICD Codes: R79.89 - Other specified abnormal findings of blood chemistry Status: Resolved Plan: Impression: Patient with normal LFT's on admission-> mild transaminase elevations: (11/02- TBILI 1.7, AST 122, ALT 62, ALKP 54 -> 11/07- TBILI 1.4, AST 77, ALT 122, ALKP65) Suspect likely related to sepsis/organ injury Labs: Ceruloplasmin 37, [id number] 225, Hep panel negative JELANI+; titer >1:1280; speckled pattern Liver US per CC- heterogenous liver suggestive of hepatocellular disease such as cirrhosis. Small ascites; not recently changed since last CT. Sludge in gallbladder; no definite gallstones. Mild splenomegaly. Mild hydronephrosis -Continue to monitor LFT's -Ceftriaxone stopped per ID -Gastroenterology consulted; signed off after improvement -Will plan to further reduce lactulose and Rifaximin dose due to current diarrhea (5) Clostridium difficile infection ICD Codes: B96.89 - Other specified bacterial agents as the cause of diseases classified elsewhere Status: Acute Plan: Impression: Diarrhea; C diff toxin PCR + -Continue oral vancomycin 125mg q6hrs PO (6) Atrial fibrillation ICD Codes: I48.91 - Unspecified atrial fibrillation Status: Chronic Plan: Impression: patient initially placed on amiodarone drip and given digoxin for afib with RVR on admission. Patient currently with normal rate/ sinus rhythm. Patient with reported history of moderate mitral stenosis and mild /moderate aortic stenosis Echocardiogram- moderate concentric LVF. EF 70%. Aortic sclerosis present. 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 [id number]. s/p Zeloda 08/2016. Abdomen/Pelvis CT 10/31/17: Innumerable small sclerotic lesions in the skeleton, most characteristic of sclerotic bony metastatic disease -Dr. Candelario consulted -recent bone scan w/o uptake; reassuring regarding sclerotic lesions -plan for PET as outpatient -Continue heparin, treatment for sepsis (8) Weakness ICD Codes: R53.1 - Weakness Status: Acute Plan: -PT consulted -Planned discharge to SNF; OT recommended -ST- signed off -OT- recommend rehab (9) Diabetes mellitus, type II ICD Codes: E11.9 - Type 2 diabetes mellitus Status: Chronic Plan: Will hold home medications -Low dose SSI -Continue to monitor blood sugar (10) UTI (urinary tract infection) ICD Codes: N39.0 - Urinary tract infection, site not specified Status: Resolved Plan: Impression: UA with large leukocyte esterase, innumerable WBCs, many WBC clumps Urine culture and blood cultures 10/31 with pansensitive E Coli -Management as above for sepsis (11) Hypothyroidism ICD Codes: E03.9 - Hypothyroidism Status: Chronic Plan: Continue home Levothyroxine (12) Altered mental state ICD Codes: R41.82 - Altered mental status, unspecified Status: Resolved Plan: 11/16- alert/oriented. Resolved mental status Impression: Persistent lack of orientation after extubation 11/05. No focal deficits. History of TIA. On Heparin anticoagulation Imaging: CT head 10/31 on admission (ordered due to confusion on admission; suspected secondary to sepsis) w/o acute findings. Remote lacunar infarct in right frontal white matter Repeat head CT 11/06 without acute intracranial abnormality MRI brain 11/08- chronic changes with some periventricular small vessel ischemic demyelination and old lacunar infarct at junction of R coronal radiata and centrum semiovale MRI brain 11/10- stable exam EEG 11/11- moderate encephalopathy with triphasic waveforms; possible she could have nonconvulsive seizures EEG 11/15- moderate encephalopathy; no focal abnormality. No seizure activity seen Labs: Leukocytosis. Some hypocalcemia. Normal sodium. Ammonia 76 11/06 -> 39 (11/08) -> 33 11/10-> 38 11/15 LFT elevations- 11/02-11/08- (TBILI mild elevation, mild AST and ALT elevations normal ALKP); subsequently normal values with exception of mild Alk P elevation ABG 11/07- pH 7.34, CO2 37, HCO3 20 -Continue management per Critical care; suspect multifactorial. off of sedation since extubation. Suspect possible hepatic encephalopathy as component plus may have been uremic -Neurology consulted-appreciate recs -Likely metabolic encephalopathy -Antibiotic therapy changed to Zosyn to avoid possible encephalopathy from Cefepime -Plan to discontinue IV Cerebrex since no seizures on last EEG -Hyperammonemia -Hold Lactulose BID (loose stool from Cdiff) -Hold rifaximin 550mg BID (loose stool from Cdiff) -Monitor ammonia which dropped dramatically -Supportive care; monitor labs (13) Positive JELANI (antinuclear antibody) ICD Codes: R76.8 - Other specified abnormal immunological findings in serum Plan: JELANI 1: 1280. has speckled pattern and markedly positive. unclear at this point what the significance is. Subsequent rheumatologic labs w/o abnormalities. (14) Skin tear Status: Acute Plan: Impression: Buttock skin tears associated with frequent diarrhea -Wound care consulted -cleanse with Remedy barrier wipes to remove stool -Apply Calazime skin protectant past to bilateral buttocks in thick layer BID -Turn patient q2hrs and as needed to offload -Use Ultrasorb pad; do not use cloth pads (15) FEN/PPX Plan: Fluid: Will continue mild IVF while having diarrhea with Cdiff Electrolytes: Continue to monitor; replacement per protocol Nutrition: normal diet DVT PPX: Xarelto 20mg daily Problem Qualifiers (1) Sepsis: Qualified Codes: A41.9 - Sepsis, unspecified organism (2) Hypertension: Qualified Codes: I10 - Essential (primary) hypertension (3) Atrial fibrillation: Qualified Codes: I48.2 - Chronic atrial fibrillation (4) Diabetes mellitus, type II: Qualified Codes: E11.8 - Type 2 diabetes mellitus with unspecified complications (5) UTI (urinary tract infection): (6) Hypothyroidism: Qualified Codes: E03.9 - Hypothyroidism, unspecified Oscar Santos MD R3 November 16, 2017 10:09
[2017-11-16] MEDS: SODIUM CHLORIDE 0.9% FLUSH 10 ML FLUSH IV FLUSH SCH ×2 (10:18→21:00)
[2017-11-16] MEDS: VENLAFAXINE HCL XR 75 MG CAP PO SCH (10:18)
[2017-11-16] MEDS: AMIODARONE 200 MG TAB PO SCH (10:19)
[2017-11-16] MEDS: FLUCONAZOLE 100 MG TAB PO SCH (10:19)
[2017-11-16] MEDS: RIVAROXABAN 20 MG TAB PO SCH (10:21)
[2017-11-16 12:00] VITALS: BP 166/74; PULSE 66; RESP 17; TEMP 96.7; O2SAT 94
[2017-11-16 13:57] LABS: AUTOMATED NEUTROPHIL # 6.1 TH/MM3 (1.8-7.7); BASOPHIL % 0.5 % (0.0-2.0); EOSINOPHIL # 0.2 TH/MM3 (0-0.4); HEMOGLOBIN 9.4 GM/DL (11.6-15.3); LYMPH % 9.3 % (9.0-44.0); LYMPHOCYTE # 0.7 TH/MM3 (1.0-4.8); MEAN CELL VOLUME 85.4 FL (80.0-100.0); MEAN CORPUSCULAR HEMOGLOBIN 27.5 PG (27.0-34.0); MEAN CORPUSCULAR HGB CONC 32.2 % (32.0-36.0); MEAN PLATELET VOLUME 9.4 FL (7.0-11.0); MONO % 7.8 % (0.0-8.0); MONOCYTE # 0.6 TH/MM3 (0-0.9); NEUT % 80.4 % (16.0-70.0); PLATELET COUNT 207 TH/MM3 (150-450); RED CELL DISTRIBUTION WIDTH 21.5 % (11.6-17.2); WHITE BLOOD COUNT 7.6 TH/MM3 (4.0-11.0)
[2017-11-16 14:23] LABS: ALBUMIN 2.4 GM/DL (3.4-5.0); ALT (GPT) 24 U/L (10-53); AST (GOT) 29 U/L (15-37); BICARBONATE 22.7 MEQ/L (21.0-32.0); BLOOD UREA NITROGEN 6 MG/DL (7-18); CALCIUM 7.8 MG/DL (8.5-10.1); CHLORIDE 110 MEQ/L (98-107); CREATININE 0.61 MG/DL (0.50-1.00); GLOMERULAR FILTRATION RATE 97 ML/MIN (>89); GLUCOSE,RANDOM 112 MG/DL (74-106); SODIUM (NA) 141 MEQ/L (136-145)
[2017-11-16 14:25] LABS: ALKALINE PHOSPHATASE 189 U/L (45-117); TOTAL BILIRUBIN ADULT 0.4 MG/DL (0.2-1.0); TOTAL PROTEIN 6.4 GM/DL (6.4-8.2)
[2017-11-16 16:00] VITALS: BP 159/76; PULSE 60; RESP 19; TEMP 97.4; O2SAT 96
[2017-11-16 20:00] VITALS: BP 146/68; PULSE 66; RESP 16; TEMP 97.5; O2SAT 96
[2017-11-16] MEDS: INSULIN DETEMIR 100 UNITS/ML VIAL SQ SCH (21:00)
[2017-11-16] MEDS: TEMAZEPAM 15 MG CAP PO PRN (21:10)
[2017-11-16 23:52] LABS: MITOCHONDRIAL AB NEGATIVE (NEGATIVE); MITOCHONDRIAL AB TITER ND (<1:20)
[2017-11-17] VITALS: BP 140/79; PULSE 66; RESP 16; TEMP 97.4; O2SAT 97
[2017-11-17] MEDS: VANCOMYCIN 500 MG VIAL (FOR ORAL USE ONLY) PO SCH ×4 (03:47→22:50)
[2017-11-17] MEDS: PIPERACIL-TAZO 3.375 GM PREMIX 50 ML IV SCH ×4 (03:47→22:49)
[2017-11-17] MEDS: NS + KCL 20 MEQ INJ 1,000 ML IV SCH ×2 (03:52→10:48)
[2017-11-17] MEDS: METOPROLOL TARTRATE 25 MG TAB PO SCH ×3 (05:22→22:50)
[2017-11-17] MEDS: FOSPHENYTOIN SODIUM 100 MG PE/2 ML VIAL IV SCH (05:22)
[2017-11-17] MEDS: LEVOTHYROXINE SODIUM 50 MCG TAB PO SCH (05:22)
[2017-11-17 05:38] VITALS: BP 153/74; PULSE 73
[2017-11-17 05:57] LABS: AUTOMATED NEUTROPHIL # 6.3 TH/MM3 (1.8-7.7); BASOPHIL # 0.1 TH/MM3 (0-0.2); BASOPHIL % 0.9 % (0.0-2.0); EOSINOPHIL # 0.1 TH/MM3 (0-0.4); EOSINOPHIL % 1.8 % (0.0-4.0); HEMATOCRIT 28.7 % (35.0-46.0); HEMOGLOBIN 9.3 GM/DL (11.6-15.3); LYMPHOCYTE # 0.8 TH/MM3 (1.0-4.8); MEAN CORPUSCULAR HEMOGLOBIN 27.6 PG (27.0-34.0); MEAN CORPUSCULAR HGB CONC 32.5 % (32.0-36.0); MEAN PLATELET VOLUME 9.1 FL (7.0-11.0); MONO % 9.5 % (0.0-8.0); MONOCYTE # 0.8 TH/MM3 (0-0.9); NEUT % 77.8 % (16.0-70.0); PLATELET COUNT 221 TH/MM3 (150-450); RED BLOOD COUNT 3.38 MIL/MM3 (4.00-5.30); RED CELL DISTRIBUTION WIDTH 22.6 % (11.6-17.2); WHITE BLOOD COUNT 8.1 TH/MM3 (4.0-11.0)
[2017-11-17 06:17] LABS: ALBUMIN 2.5 GM/DL (3.4-5.0); AST (GOT) 35 U/L (15-37); BICARBONATE 22.7 MEQ/L (21.0-32.0); BLOOD UREA NITROGEN 5 MG/DL (7-18); CALCIUM 7.9 MG/DL (8.5-10.1); CHLORIDE 109 MEQ/L (98-107); CREATININE 0.65 MG/DL (0.50-1.00); GLOMERULAR FILTRATION RATE 90 ML/MIN (>89); GLUCOSE,RANDOM 104 MG/DL (74-106); SODIUM (NA) 141 MEQ/L (136-145)
[2017-11-17 06:19] LABS: ALT (GPT) 28 U/L (10-53)
[2017-11-17 06:20] LABS: ALKALINE PHOSPHATASE 215 U/L (45-117); TOTAL BILIRUBIN ADULT 0.4 MG/DL (0.2-1.0); TOTAL PROTEIN 6.8 GM/DL (6.4-8.2)
[2017-11-17 08:00] VITALS: BP 141/63; PULSE 67; RESP 17; TEMP 97.4; O2SAT 96
[2017-11-17] MEDS: INSULIN ASPART SUPPLEMENTAL SCALE SQ SCH ×4 (08:00→21:00)
--- NOTE | 2017-11-17 09:32 | HHI.FPPN ---
Subjective Remarks Mrs. Marroquin was afebrile with mild HTN overnight (MAP 100). 2 stools overnight per EMR. Patient accompanied by her who supplemented history; patient slept well overnight. Her rectal bag has been working well. She has had less leakage of stool and has improvement in back discomfort since starting wound care on skin tears. She was able to hold a cup of water yesterday. Patient tired this morning and did not answer questions with exception of short answers. Patient does not report any pain; complaints reported. (Oscar Santos MD R3) Objective Vitals Vital Signs Date Time Temp Pulse Resp B/P (MAP) Pulse Ox O2 Delivery O2 Flow Rate FiO2 11/17/17 05:38 73 153/74 (100) 11/17/17 00:00 97.4 66 16 140/79 (99) 97 11/16/17 21:24 21 11/16/17 20:00 97.5 66 16 146/68 (94) 96 11/16/17 16:00 97.4 60 19 159/76 (103) 96 11/16/17 12:00 96.7 66 17 166/74 (104) 94 I/O 11/16/17 11/16/17 11/16/17 11/17/17 11/17/17 11/17/17 07:00 15:00 23:00 07:00 15:00 23:00 Intake Total 100 ml 100 ml 500 ml 1722 ml Output Total 200 ml 900 ml 2000 ml Balance -100 ml 100 ml -400 ml -278 ml Intake Oral 500 ml 480 ml IV Total 100 ml 100 ml 1242 ml Output Urine Total 900 ml 2000 ml Stool Total 200 ml # Voids 2 (Oscar Santos MD R3) Result Diagram: 11/17/17 0538 11/17/17 0538 Imaging Last Impressions Chest X-Ray 11/15/17 0000 Signed Impressions: CONCLUSION: No significant interval change Brain MRI 11/10/17 0000 Signed Impressions: Service Date/Time: Friday, November 10, 2017 14:00 - CONCLUSION: 1. Stable examination. Specifically, no acute infarction, hemorrhage or mass. 2. Senescent changes with periventricular white matter ischemic demyelination and focal lacunar type infarct in the right centrum semiovale. César Coats MD Liver Ultrasound 11/07/17 0000 Signed Impressions: Service Date/Time: October 08:05 - CONCLUSION: 1. Heterogeneous liver suggestive of hepatocellular disease such as cirrhosis. There is a small amount of ascites surrounding the liver. This is not significantly changed compared to the recent CT scan of the abdomen. 2. Sludge in the gallbladder. No definite gallstones or biliary tract obstruction. 3. Mild splenomegaly. 4. Mild hydronephrosis of the right collecting system. Markie Crabtree MD Head CT 11/06/17 0000 Signed Impressions: Service Date/Time: Monday, November 06, 2017 10:03 - CONCLUSION: 1. No acute intracranial abnormality or significant interval change. César Coats MD Abdomen X-Ray 11/04/17 0000 Signed Impressions: Service Date/Time: Saturday, November 04, 2017 17:50 - CONCLUSION: Nonspecific intestinal gas pattern Jose Wright MD Abdomen/Pelvis CT 10/31/17 1321 Signed Impressions: Service Date/Time: October 13:58 - CONCLUSION: 1. Development of innumerable small sclerotic lesions in the skeleton most characteristic of sclerotic bony metastatic disease. There is a reported history of malignancy. 2. Hepatomegaly with development of mild ascites. 3. Persistent moderate hydronephrosis with perinephric stranding similar to February 2017. Interval development of mild anasarca. 4. Gallbladder sludge. Gallo catheter in bladder. Samuel Lin MD Lung Scan-V Nuclear Medicine 10/31/17 0000 Signed Impressions: Service Date/Time: October 15:00 - CONCLUSION: Low probability scan for pulmonary embolism Jose Wright MD Objective Remarks GENERAL: No acute distress Eyes: No pupil asymmetry appreciated. EOM grossly intact. Skin: No visible lesions. Buttock skin tears not visualized CARDIOVASCULAR: irregular rate and rhythm; 3/6 murmur. Normal distal LE perfusion bilaterally RESPIRATORY: Normal rate. CTAB; no congestion or wheezing to auscultation GASTROINTESTINAL: Abdomen soft, distended. Normal bowel sounds. MUSCULOSKELETAL: No calf asymmetry or pain to palpation. No LE edema NEUROLOGICAL: No cranial nerve or peripheral motor/sensory deficits (Oscar Santos MD R3) A/P Assessment and Plan Patient is a 72-year-old admitted due to septic shock from urinary source; patient also with sclerotic bony lesions concerning for colon cancer metastasis. Due to respiratory decline/multiorgan failure, patient on ventilator 11/02. Critical care, Nephrology, and infectious disease consulted. Patient extubated ; has had altered mental status since extubation. Patient since has improved in terms of her mental status. Patient developed Cdiff is being treated with oral Vancomycin. She is improving currently and receiving PT and OT Discharge Planning Anticipate discharge to SNF in the next several days (Oscar Santos MD R3) Attending Attestation Medical rounds with Dr Santos this morning FMR reviewed Patient seen and examined Agree with above documentation See Orders (Jefferson Ambrosio MD) Problem List: (1) Sepsis ICD Codes: A41.9 - Sepsis, unspecified organism Status: Resolved Plan: Impression: Septic shock on admission; labs suggestive of multiorgan dysfunction. Patient initially required >4 L crystalloids and was placed on pressors. E coli from urinary source. Patient developed respiratory failure and required intubation; possible concern for aspiration also. Subsequently, patient found to have C diff colitis Labs: Cr: 2.10 (10/31) -> 0.65 (11/17) WBC: 15.8 (10/31) -> 8.1 (11/17) Lactic acid: 3 (10/31) -> 3.3 (11/02) -Continue antibiotic therapy -Infectious disease consulted -Started on Fluconazole 100mg daily (11/14-) -Continue Zosyn (11/10- ) -Continue Vancomycin 125mg PO q 6hrs (11/10-) -Monitor cultures, temps -Continue to monitor CBC, BMP, urine output Antibiotic history: s/p Meropenem 2gm q12hrs IV -s/p Zosyn 2.5mg q6hrs (10/31-11/02) -s/p Tobramycin IV x1 11/02 -s/p Rocephin 11/03-11/06 -s/p Cefepime 2gm IV BID -s/p Levofloxacin 11/10 Cultures: -Urine culture 11/12- Debra Glabrata -11/10- C diff PCR + 11/05 -Sputum culture negative x48hrs 11/02- blood x2- negative x5 days 10/31- blood x2 taylor sensitive E Coli 10/31- urine- taylor sensitive E coli (2) Hypertension ICD Codes: I10 - Essential (primary) hypertension Status: Chronic Plan: Impression: PMH HTN. Initial hypotension on admission w/ septic shock. Now intermittent hypertension based on agitation/sedation -Continue to monitor -Continue Metoprolol 25mg q8 hrs -Clonidine 0.1mg PRN q6hrs BP 180/100 -Vasotec 1.25mg q8hrs PRN BP >160/90 (3) ASH (acute kidney injury) ICD Codes: N17.9 - Acute kidney failure, unspecified Status: Acute Plan: Impression: renal injury presumed secondary to septic shock/multiorgan dysfunction Cr- 2.12 on admission-> 2.59 (11/02) -> 3.53 (11/04) -> downtrended to WNL Nephrology and Urology previously consulted; subsequently signed off CT abdomen/pelvis- moderate hydronephrosis w/ perinephric stranding similar to . Interval development of mild anasarca. F/U US with continued mild hydronephrosis 11/07 -Continue to monitor US (4) Elevated LFTs ICD Codes: R79.89 - Other specified abnormal findings of blood chemistry Status: Resolved Plan: Impression: Patient with normal LFT's on admission-> mild transaminase elevations: (11/02- TBILI 1.7, AST 122, ALT 62, ALKP 54 -> 11/07- TBILI 1.4, AST 77, ALT 122, ALKP65) Suspect likely related to sepsis/organ injury Labs: Ceruloplasmin 37, C4[place]gr 225, Hep panel negative JELANI+; titer >1:1280; speckled pattern Liver US per CC- heterogenous liver suggestive of hepatocellular disease such as cirrhosis. Small ascites; not recently changed since last CT. Sludge in gallbladder; no definite gallstones. Mild splenomegaly. Mild hydronephrosis -Continue to monitor LFT's -Ceftriaxone stopped per ID -Gastroenterology consulted; signed off after improvement -Will stop lactulose and Rifaximin dose due to current diarrhea (5) Clostridium difficile infection ICD Codes: B96.89 - Other specified bacterial agents as the cause of diseases classified elsewhere Status: Acute Plan: Impression: Diarrhea; C diff toxin PCR + -Continue oral vancomycin 125mg q6hrs PO (6) Atrial fibrillation ICD Codes: I48.91 - Unspecified atrial fibrillation Status: Chronic Plan: Impression: patient initially placed on amiodarone drip and given digoxin for afib with RVR on admission. Patient currently with normal rate/ sinus rhythm. Patient with reported history of moderate mitral stenosis and mild /moderate aortic stenosis Echocardiogram- moderate concentric LVF. EF 70%. Aortic sclerosis present. 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 [id number]. s/p Zeloda 08/2016. Abdomen/Pelvis CT 10/31/17: Innumerable small sclerotic lesions in the skeleton, most characteristic of sclerotic bony metastatic disease -Dr. Candelario consulted -recent bone scan w/o uptake; reassuring regarding sclerotic lesions -plan for PET as outpatient -Continue heparin, treatment for sepsis (8) Weakness ICD Codes: R53.1 - Weakness Status: Acute Plan: -PT consulted -Planned discharge to SNF; OT recommended -ST- signed off -OT- recommend rehab (9) Diabetes mellitus, type II ICD Codes: E11.9 - Type 2 diabetes mellitus Status: Chronic Plan: Will hold home medications -Low dose SSI -Continue to monitor blood sugar (10) UTI (urinary tract infection) ICD Codes: N39.0 - Urinary tract infection, site not specified Status: Resolved Plan: Impression: UA with large leukocyte esterase, innumerable WBCs, many WBC clumps Urine culture and blood cultures 10/31 with pansensitive E Coli -Management as above for sepsis (11) Hypothyroidism ICD Codes: E03.9 - Hypothyroidism Status: Chronic Plan: Continue home Levothyroxine (12) Altered mental state ICD Codes: R41.82 - Altered mental status, unspecified Status: Resolved Plan: 11/17- Tired but no concern for altered mental status currently; will re- evaluate Impression: Persistent lack of orientation after extubation 11/05. No focal deficits. History of TIA. Suspect multifactorial. off of sedation since extubation. Suspect possible hepatic encephalopathy as component plus may have been uremic Imaging: CT head 10/31 on admission (ordered due to confusion on admission; suspected secondary to sepsis) w/o acute findings. Remote lacunar infarct in right frontal white matter Repeat head CT 11/06 without acute intracranial abnormality MRI brain 11/08- chronic changes with some periventricular small vessel ischemic demyelination and old lacunar infarct at junction of R coronal radiata and centrum semiovale MRI brain 11/10- stable exam EEG 11/11- moderate encephalopathy with triphasic waveforms; possible she could have nonconvulsive seizures EEG 11/15- moderate encephalopathy; no focal abnormality. No seizure activity seen Labs: Leukocytosis. Some hypocalcemia. Normal sodium. Ammonia 76 11/06 -> 39 (11/08) -> 33 11/10-> 38 11/15 -> 24 (11/17) LFT elevations- 11/02-11/08- (TBILI mild elevation, mild AST and ALT elevations normal ALKP); subsequently normal values with exception of mild Alk P elevation ABG 11/07- pH 7.34, CO2 37, HCO3 20 -Neurology consulted-appreciate recs -Likely metabolic encephalopathy -Antibiotic therapy changed to Zosyn to avoid possible encephalopathy from Cefepime -Discontinued IV Cerebrex since no seizures on last EEG -Hyperammonemia -Hold Lactulose BID (loose stool from Cdiff) -Hold rifaximin 550mg BID (loose stool from Cdiff) -Monitor ammonia periodically -Supportive care; monitor labs -Will reduce Restoril PRN for sleep to 7.5mg qHS (13) Positive JELANI (antinuclear antibody) ICD Codes: R76.8 - Other specified abnormal immunological findings in serum Plan: JELANI 1: 1280. has speckled pattern and markedly positive. unclear at this point what the significance is. Subsequent rheumatologic labs w/o abnormalities. (14) Skin tear Status: Acute Plan: Impression: Buttock skin tears associated with frequent diarrhea -Wound care consulted -cleanse with Remedy barrier wipes to remove stool -Apply Calazime skin protectant past to bilateral buttocks in thick layer BID -Turn patient q2hrs and as needed to offload -Use Ultrasorb pad; do not use cloth pads (15) FEN/PPX Plan: Fluid: Will continue mild IVF while having diarrhea with Cdiff Electrolytes: Continue to monitor; replacement per protocol Nutrition: normal diet DVT PPX: Xarelto 20mg daily (Oscar Santos MD R3) Problem Qualifiers (1) Sepsis: Qualified Codes: A41.9 - Sepsis, unspecified organism (2) Hypertension: Qualified Codes: I10 - Essential (primary) hypertension (3) Atrial fibrillation: Qualified Codes: I48.2 - Chronic atrial fibrillation (4) Diabetes mellitus, type II: Qualified Codes: E11.8 - Type 2 diabetes mellitus with unspecified complications (5) UTI (urinary tract infection): (6) Hypothyroidism: Qualified Codes: E03.9 - Hypothyroidism, unspecified Oscar Santos MD R3 November 17, 2017 09:32 Jefferson Ambrosio MD November 17, 2017 17:16
[2017-11-17] MEDS: AMIODARONE 200 MG TAB PO SCH (10:12)
[2017-11-17] MEDS: FLUCONAZOLE 100 MG TAB PO SCH (10:12)
[2017-11-17] MEDS: VENLAFAXINE HCL XR 75 MG CAP PO SCH (10:13)
[2017-11-17] MEDS: RIVAROXABAN 20 MG TAB PO SCH (10:13)
[2017-11-17] MEDS: ACETAMINOPHEN 325 MG TAB PO PRN ×3 (10:13→22:51)
[2017-11-17] MEDS: SODIUM CHLORIDE 0.9% FLUSH 10 ML FLUSH IV FLUSH SCH ×2 (10:13→22:49)
[2017-11-17 12:00] VITALS: BP 142/76; PULSE 66; RESP 17; TEMP 97.6; O2SAT 96
[2017-11-17] MEDS: ENALAPRILAT 1.25 MG/ML VIAL IV PUSH PRN (15:24)
[2017-11-17 16:00] VITALS: BP_SYST 166; BP_SYST 201; BP_DIAS 74; BP_DIAS 88; PULSE 73; RESP 17; TEMP 97.8; O2SAT 98
[2017-11-17 20:00] VITALS: BP 176/92; PULSE 79; RESP 19; TEMP 97.4; O2SAT 93
[2017-11-17] MEDS: INSULIN DETEMIR 100 UNITS/ML VIAL SQ SCH (22:50)
[2017-11-17] MEDS: TEMAZEPAM 7.5 MG CAP PO PRN (22:52)
[2017-11-18] VITALS: BP 178/96; PULSE 84; RESP 20; TEMP 98.1; O2SAT 95
[2017-11-18] MEDS: ENALAPRILAT 1.25 MG/ML VIAL IV PUSH PRN ×2 (00:27→11:20)
[2017-11-18] MEDS: PIPERACIL-TAZO 3.375 GM PREMIX 50 ML IV SCH ×2 (03:46→08:59)
[2017-11-18] MEDS: VANCOMYCIN 500 MG VIAL (FOR ORAL USE ONLY) PO SCH ×4 (03:47→22:32)
[2017-11-18] MEDS: NS + KCL 20 MEQ INJ 1,000 ML IV SCH ×2 (03:50→15:40)
[2017-11-18 04:00] VITALS: BP 170/83; PULSE 75; RESP 20; TEMP 98; O2SAT 96
[2017-11-18] MEDS: LEVOTHYROXINE SODIUM 50 MCG TAB PO SCH (05:32)
[2017-11-18] MEDS: METOPROLOL TARTRATE 25 MG TAB PO SCH ×3 (05:32→22:31)
[2017-11-18 06:03] LABS: AUTOMATED NEUTROPHIL # 5.2 TH/MM3 (1.8-7.7); BASOPHIL % 0.7 % (0.0-2.0); EOSINOPHIL # 0.1 TH/MM3 (0-0.4); EOSINOPHIL % 1.8 % (0.0-4.0); HEMATOCRIT 29.3 % (35.0-46.0); HEMOGLOBIN 9.5 GM/DL (11.6-15.3); LYMPH % 10.7 % (9.0-44.0); LYMPHOCYTE # 0.7 TH/MM3 (1.0-4.8); MEAN CELL VOLUME 85.2 FL (80.0-100.0); MEAN CORPUSCULAR HEMOGLOBIN 27.6 PG (27.0-34.0); MEAN CORPUSCULAR HGB CONC 32.4 % (32.0-36.0); MEAN PLATELET VOLUME 8.9 FL (7.0-11.0); MONO % 9.1 % (0.0-8.0); MONOCYTE # 0.6 TH/MM3 (0-0.9); NEUT % 77.7 % (16.0-70.0); PLATELET COUNT 223 TH/MM3 (150-450); RED BLOOD COUNT 3.44 MIL/MM3 (4.00-5.30); RED CELL DISTRIBUTION WIDTH 22.7 % (11.6-17.2); WHITE BLOOD COUNT 6.7 TH/MM3 (4.0-11.0)
[2017-11-18 06:33] LABS: ALBUMIN 2.6 GM/DL (3.4-5.0); AST (GOT) 30 U/L (15-37); BICARBONATE 23.3 MEQ/L (21.0-32.0); BLOOD UREA NITROGEN 5 MG/DL (7-18); CALCIUM 8.4 MG/DL (8.5-10.1); CHLORIDE 109 MEQ/L (98-107); CREATININE 0.61 MG/DL (0.50-1.00); GLOMERULAR FILTRATION RATE 97 ML/MIN (>89); GLUCOSE,RANDOM 87 MG/DL (74-106); SODIUM (NA) 141 MEQ/L (136-145)
[2017-11-18 06:35] LABS: ALT (GPT) 28 U/L (10-53)
[2017-11-18 06:36] LABS: ALKALINE PHOSPHATASE 224 U/L (45-117); TOTAL BILIRUBIN ADULT 0.4 MG/DL (0.2-1.0); TOTAL PROTEIN 7.2 GM/DL (6.4-8.2)
[2017-11-18 08:00] VITALS: BP 169/76; PULSE 64; RESP 17; TEMP 97.4; O2SAT 97
[2017-11-18] MEDS: INSULIN ASPART SUPPLEMENTAL SCALE SQ SCH ×4 (08:00→21:00)
[2017-11-18] MEDS: FLUCONAZOLE 100 MG TAB PO SCH (08:59)
[2017-11-18] MEDS: AMIODARONE 200 MG TAB PO SCH (08:59)
[2017-11-18] MEDS: SODIUM CHLORIDE 0.9% FLUSH 10 ML FLUSH IV FLUSH SCH ×2 (08:59→21:00)
[2017-11-18] MEDS: RIVAROXABAN 20 MG TAB PO SCH (09:00)
[2017-11-18] MEDS: VENLAFAXINE HCL XR 75 MG CAP PO SCH (09:00)
--- NOTE | 2017-11-18 09:55 | HHI.FPPN ---
Subjective Remarks Mrs. Marroquin was afebrile with HTN overnight (SBP's in 160's-170's; high SBP of 201 ). Patient accompanied by her this morning. Patient reports doing well at this time. No chest pain, shortness of breath, abdominal pain, or dysuria. Patient is not sure about her bowel movements with rectal tube in place. Patient continues to feel slight improvements in strength. Patient has had difficulty with sleeping overnight; she goes to sleep well but awakens early in the mornings. (Oscar Santos MD R3) Objective Vitals Vital Signs Date Time Temp Pulse Resp B/P (MAP) Pulse Ox O2 Delivery O2 Flow Rate FiO2 11/18/17 08:00 97.4 64 17 169/76 (107) 97 11/18/17 04:00 98.0 75 20 170/83 (112) 96 11/18/17 00:00 98.1 84 20 178/96 (123) 95 11/17/17 20:00 97.4 79 19 176/92 (120) 93 11/17/17 16:00 97.8 73 17 201/88 (125) 98 11/17/17 16:00 166/74 (104) 11/17/17 12:00 97.6 66 17 142/76 (98) 96 I/O 11/17/17 11/17/17 11/17/17 11/18/17 11/18/17 11/18/17 07:00 15:00 23:00 07:00 15:00 23:00 Intake Total 1722 ml 50 ml 3100 ml 290 ml Output Total 2000 ml 2200 ml 2600 ml Balance -278 ml 50 ml 900 ml -2310 ml Intake Oral 480 ml 2000 ml 240 ml IV Total 1242 ml 50 ml 1100 ml 50 ml Output Urine Total 2000 ml 2000 ml 2600 ml Stool Total 200 ml (Oscar Santos MD R3) Result Diagram: 11/18/17 0545 11/18/17 0545 Imaging Last Impressions Chest X-Ray 11/15/17 0000 Signed Impressions: CONCLUSION: No significant interval change Brain MRI 11/10/17 0000 Signed Impressions: Service Date/Time: Friday, November 10, 2017 14:00 - CONCLUSION: 1. Stable examination. Specifically, no acute infarction, hemorrhage or mass. 2. Senescent changes with periventricular white matter ischemic demyelination and focal lacunar type infarct in the right centrum semiovale. César Coats MD Liver Ultrasound 11/07/17 0000 Signed Impressions: Service Date/Time: October 08:05 - CONCLUSION: 1. Heterogeneous liver suggestive of hepatocellular disease such as cirrhosis. There is a small amount of ascites surrounding the liver. This is not significantly changed compared to the recent CT scan of the abdomen. 2. Sludge in the gallbladder. No definite gallstones or biliary tract obstruction. 3. Mild splenomegaly. 4. Mild hydronephrosis of the right collecting system. Markie Crabtree MD Head CT 11/06/17 0000 Signed Impressions: Service Date/Time: Monday, November 06, 2017 10:03 - CONCLUSION: 1. No acute intracranial abnormality or significant interval change. César Coats MD Abdomen X-Ray 11/04/17 0000 Signed Impressions: Service Date/Time: Saturday, November 04, 2017 17:50 - CONCLUSION: Nonspecific intestinal gas pattern Jose Wright MD Abdomen/Pelvis CT 10/31/17 1321 Signed Impressions: Service Date/Time: October 13:58 - CONCLUSION: 1. Development of innumerable small sclerotic lesions in the skeleton most characteristic of sclerotic bony metastatic disease. There is a reported history of malignancy. 2. Hepatomegaly with development of mild ascites. 3. Persistent moderate hydronephrosis with perinephric stranding similar to February 2017. Interval development of mild anasarca. 4. Gallbladder sludge. Gallo catheter in bladder. Samuel Lin MD Lung Scan- Nuclear Medicine 10/31/17 0000 Signed Impressions: Service Date/Time: October 15:00 - CONCLUSION: Low probability scan for pulmonary embolism Jose Wright MD Objective Remarks GENERAL: No acute distress Eyes: EOM grossly intact. Skin: No visible lesions. Buttock skin tears not visualized CARDIOVASCULAR: normal rate; 3/6 murmur. Normal distal LE perfusion bilaterally RESPIRATORY: Normal rate. CTAB; no congestion or wheezing to auscultation GASTROINTESTINAL: Abdomen soft, distended. Normal bowel sounds. MUSCULOSKELETAL: No calf asymmetry or pain to palpation. No LE edema NEUROLOGICAL: No cranial nerve or peripheral motor/sensory deficits (Chotas,Oscar N MD R3) A/P Assessment and Plan Patient is a 72-year-old admitted due to septic shock from urinary source; patient also with sclerotic bony lesions concerning for colon cancer metastasis. Due to respiratory decline/multiorgan failure, patient on ventilator 11/02. Critical care, Nephrology, and infectious disease consulted. Patient extubated ; has had altered mental status since extubation. Patient since has improved in terms of her mental status. Patient developed Cdiff is being treated with oral Vancomycin. She is improving currently and receiving PT and OT Discharge Planning Anticipate discharge to SNF in the next several days (Oscar Santos MD R3) Attending Attestation Patient seen and examined with Dr Santos EMR reviewed Agree with above documentation See current orders (Jefferson Ambrosio MD) Problem List: (1) Sepsis ICD Codes: A41.9 - Sepsis, unspecified organism Status: Resolved Plan: Impression: Septic shock on admission; labs suggestive of multiorgan dysfunction. Patient initially required >4 L crystalloids and was placed on pressors. E coli from urinary source. Patient developed respiratory failure and required intubation; possible concern for aspiration also. Subsequently, patient found to have C diff colitis Labs: Cr: 2.10 (10/31) -> 0.61 (11/18) WBC: 15.8 (10/31) -> 6.7 (11/18) Lactic acid: 3 (10/31) -> 3.3 (11/02) -Continue antibiotic therapy -Infectious disease consulted -Started on Fluconazole 100mg daily (11/14-) -Continue Zosyn (11/10- ) -Continue Vancomycin 125mg PO q 6hrs (11/10-) -Monitor cultures, temps -Continue to monitor CBC, BMP, urine output Antibiotic history: s/p Meropenem 2gm q12hrs IV -s/p Zosyn 2.5mg q6hrs (10/31-11/02) -s/p Tobramycin IV x1 11/02 -s/p Rocephin 11/03-11/06 -s/p Cefepime 2gm IV BID -s/p Levofloxacin 11/10 Cultures: -Urine culture 11/12- Debra Glabrata -11/10- C diff PCR + 11/05 -Sputum culture negative x48hrs 11/02- blood x2- negative x5 days 10/31- blood x2 taylor sensitive E Coli 10/31- urine- taylor sensitive E coli (2) Hypertension ICD Codes: I10 - Essential (primary) hypertension Status: Chronic Plan: Impression: PMH HTN. Initial hypotension on admission w/ septic shock. Now intermittent hypertension based on agitation/sedation -Continue to monitor -Continue Metoprolol 25mg q8 hrs -Clonidine 0.1mg PRN q6hrs BP 180/100 -Vasotec 1.25mg q8hrs PRN BP >160/90 -Will add amlodipine 5mg to daily BP medications (normal EF) (3) Clostridium difficile infection ICD Codes: B96.89 - Other specified bacterial agents as the cause of diseases classified elsewhere Status: Acute Plan: Impression: Diarrhea; C diff toxin PCR + -Continue oral vancomycin 125mg q6hrs PO (4) ASH (acute kidney injury) ICD Codes: N17.9 - Acute kidney failure, unspecified Status: Resolved Plan: Impression: renal injury presumed secondary to septic shock/multiorgan dysfunction Cr- 2.12 on admission-> 2.59 (11/02) -> 3.53 (11/04) -> downtrended to WNL Nephrology and Urology previously consulted; subsequently signed off CT abdomen/pelvis- moderate hydronephrosis w/ perinephric stranding similar to . Interval development of mild anasarca. F/U US with continued mild hydronephrosis 11/07 -Continue to monitor (5) Elevated LFTs ICD Codes: R79.89 - Other specified abnormal findings of blood chemistry Status: Resolved Plan: Impression: Patient with normal LFT's on admission-> mild transaminase elevations: (11/02- TBILI 1.7, AST 122, ALT 62, ALKP 54 -> 11/07- TBILI 1.4, AST 77, ALT 122, ALKP65) Suspect likely related to sepsis/organ injury Labs: Ceruloplasmin 37, [id number] 225, Hep panel negative JELANI+; titer >1:1280; speckled pattern Liver US per CC- heterogenous liver suggestive of hepatocellular disease such as cirrhosis. Small ascites; not recently changed since last CT. Sludge in gallbladder; no definite gallstones. Mild splenomegaly. Mild hydronephrosis -Continue to monitor LFT's -Ceftriaxone stopped per ID -Gastroenterology consulted; signed off after improvement -Will stop lactulose and Rifaximin dose due to current diarrhea (6) Atrial fibrillation ICD Codes: I48.91 - Unspecified atrial fibrillation Status: Chronic Plan: Impression: patient initially placed on amiodarone drip and given digoxin for afib with RVR on admission. Patient currently with normal rate/ sinus rhythm. Patient with reported history of moderate mitral stenosis and mild /moderate aortic stenosis Echocardiogram- moderate concentric LVF. EF 70%. Aortic sclerosis present. 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 [id number]. s/p Zeloda 08/2016. Abdomen/Pelvis CT 10/31/17: Innumerable small sclerotic lesions in the skeleton, most characteristic of sclerotic bony metastatic disease -Dr. Candelario consulted -recent bone scan w/o uptake; reassuring regarding sclerotic lesions -plan for PET as outpatient -Continue heparin, treatment for sepsis (8) Weakness ICD Codes: R53.1 - Weakness Status: Acute Plan: -PT consulted -Planned discharge to SNF; OT recommended -ST- signed off -OT- recommend rehab (9) Diabetes mellitus, type II ICD Codes: E11.9 - Type 2 diabetes mellitus Status: Chronic Plan: Will hold home medications -Low dose SSI -Continue to monitor blood sugar (10) UTI (urinary tract infection) ICD Codes: N39.0 - Urinary tract infection, site not specified Status: Resolved Plan: Impression: UA with large leukocyte esterase, innumerable WBCs, many WBC clumps Urine culture and blood cultures 10/31 with pansensitive E Coli -Management as above for sepsis (11) Hypothyroidism ICD Codes: E03.9 - Hypothyroidism Status: Chronic Plan: Continue home Levothyroxine (12) Altered mental state ICD Codes: R41.82 - Altered mental status, unspecified Status: Resolved Plan: 11/18- No mental status concerns Impression: Persistent lack of orientation after extubation 11/05. No focal deficits. History of TIA. Suspect multifactorial. off of sedation since extubation. Suspect possible hepatic encephalopathy as component plus may have been uremic Imaging: CT head 10/31 on admission (ordered due to confusion on admission; suspected secondary to sepsis) w/o acute findings. Remote lacunar infarct in right frontal white matter Repeat head CT 11/06 without acute intracranial abnormality MRI brain 11/08- chronic changes with some periventricular small vessel ischemic demyelination and old lacunar infarct at junction of R coronal radiata and centrum semiovale MRI brain 11/10- stable exam EEG 11/11- moderate encephalopathy with triphasic waveforms; possible she could have nonconvulsive seizures EEG 11/15- moderate encephalopathy; no focal abnormality. No seizure activity seen Labs: Leukocytosis. Some hypocalcemia. Normal sodium. Ammonia 76 11/06 -> 39 (11/08) -> 33 11/10-> 38 11/15 -> 24 (11/17) LFT elevations- 11/02-11/08- (TBILI mild elevation, mild AST and ALT elevations normal ALKP); subsequently normal values with exception of mild Alk P elevation ABG 11/07- pH 7.34, CO2 37, HCO3 20 -Neurology consulted-appreciate recs -Likely metabolic encephalopathy -Antibiotic therapy changed to Zosyn to avoid possible encephalopathy from Cefepime -Discontinued IV Cerebrex since no seizures on last EEG -Hyperammonemia -Hold Lactulose BID (loose stool from Cdiff) -Hold rifaximin 550mg BID (loose stool from Cdiff) -Monitor ammonia periodically -Supportive care; monitor labs (13) Positive JELANI (antinuclear antibody) ICD Codes: R76.8 - Other specified abnormal immunological findings in serum Plan: JELANI 1: 1280. has speckled pattern and markedly positive. unclear at this point what the significance is. Subsequent rheumatologic labs w/o abnormalities. (14) Skin tear Status: Acute Plan: Impression: Buttock skin tears associated with frequent diarrhea -Wound care consulted -cleanse with Remedy barrier wipes to remove stool -Apply Calazime skin protectant past to bilateral buttocks in thick layer BID -Turn patient q2hrs and as needed to offload -Use Ultrasorb pad; do not use cloth pads (15) FEN/PPX Plan: Fluid: Will continue mild IVF while having diarrhea with Cdiff Electrolytes: Continue to monitor; replacement per protocol Nutrition: normal diet DVT PPX: Xarelto 20mg daily (sOcar Santos MD R3) Problem Qualifiers (1) Sepsis: Qualified Codes: A41.9 - Sepsis, unspecified organism (2) Hypertension: Qualified Codes: I10 - Essential (primary) hypertension (3) Atrial fibrillation: Qualified Codes: I48.2 - Chronic atrial fibrillation (4) Diabetes mellitus, type II: Qualified Codes: E11.8 - Type 2 diabetes mellitus with unspecified complications (5) UTI (urinary tract infection): (6) Hypothyroidism: Qualified Codes: E03.9 - Hypothyroidism, unspecified Oscar Santos MD R3 November 18, 2017 09:55 Jfeferson Ambrosio MD November 19, 2017 18:25
[2017-11-18 12:00] VITALS: BP 162/74; PULSE 74; RESP 17; TEMP 97.3; O2SAT 96
[2017-11-18] MEDS: amLODIPine BESYLATE 5 MG TAB PO SCH (12:22)
[2017-11-18 16:00] VITALS: BP 155/79; PULSE 65; RESP 17; TEMP 97.5; O2SAT 95
[2017-11-18] MEDS: ACETAMINOPHEN 325 MG TAB PO PRN (17:46)
[2017-11-18 20:00] VITALS: BP 156/78; PULSE 68; RESP 18; TEMP 98; O2SAT 94
[2017-11-18] MEDS: TEMAZEPAM 7.5 MG CAP PO PRN (23:43)
[2017-11-19] VITALS: BP 137/77; PULSE 76; RESP 18; TEMP 98; O2SAT 93
[2017-11-19] MEDS: NS + KCL 20 MEQ INJ 1,000 ML IV SCH ×2 (02:12→13:41)
[2017-11-19] MEDS: MELATONIN 5 MG TAB PO PRN (02:55)
[2017-11-19] MEDS: VANCOMYCIN 500 MG VIAL (FOR ORAL USE ONLY) PO SCH ×4 (02:55→21:17)
[2017-11-19] MEDS: METOPROLOL TARTRATE 25 MG TAB PO SCH ×3 (06:02→21:17)
[2017-11-19] MEDS: LEVOTHYROXINE SODIUM 50 MCG TAB PO SCH (06:02)
[2017-11-19 08:00] VITALS: BP 144/63; PULSE 70; RESP 18; TEMP 97.7; O2SAT 96
[2017-11-19] MEDS: INSULIN ASPART SUPPLEMENTAL SCALE SQ SCH ×4 (08:00→21:00)
[2017-11-19] MEDS: ACETAMINOPHEN/HYDROcodone 325 MG/5 MG TAB PO PRN ×2 (08:12→23:22)
[2017-11-19] MEDS: AMIODARONE 200 MG TAB PO SCH (08:12)
[2017-11-19] MEDS: VENLAFAXINE HCL XR 75 MG CAP PO SCH (08:13)
[2017-11-19] MEDS: RIVAROXABAN 20 MG TAB PO SCH (08:14)
[2017-11-19] MEDS: amLODIPine BESYLATE 5 MG TAB PO SCH (08:14)
[2017-11-19] MEDS: FLUCONAZOLE 100 MG TAB PO SCH (08:14)
[2017-11-19] MEDS: SODIUM CHLORIDE 0.9% FLUSH 10 ML FLUSH IV FLUSH SCH ×2 (09:00→21:00)
--- NOTE | 2017-11-19 11:07 | HHI.FPPN ---
Subjective Remarks Mrs. Marroquin was afebrile with mild HTN overnight (SBP's in 130's-160's. Patient accompanied by her who supplemented history. Patient did well overnight with improved sleep. Patient awoke this morning with bilateral foot pain which she described as predominately in the tops of her feet rather than in ankle or toe joints. Patient also reports increased swelling in bilateral lower extremities; she has also experienced leg swelling previously.Patient describes her pain in her feet as sharp. She states that it is different than her prior pain that she experienced in her left foot. Patient does not report associated calf symptoms at rest. Patient took a pain medication this morning which improved pain [[place] 5/325mg per EMR]. Patient's states that she has been tired after receiving pain medication. No chest pain, shortness of breath, nausea/vomiting, abdominal pain or urinary changes. Patient/ not sure how much output has been from rectal tube. Patient's provided supplemental history that she has had urinary incontinence for multiple years. Patient's also reports stool incontinence following prior colon resection. (Oscar Santos MD R3) Objective Vitals Vital Signs Date Time Temp Pulse Resp B/P (MAP) Pulse Ox O2 Delivery O2 Flow Rate FiO2 11/19/17 08:00 97.7 70 18 144/63 (90) 96 11/19/17 00:00 98.0 76 18 137/77 (97) 93 11/18/17 20:00 98.0 68 18 156/78 (104) 94 11/18/17 18:46 18 11/18/17 16:00 97.5 65 17 155/79 (104) 95 11/18/17 12:00 97.3 74 17 162/74 (103) 96 I/O 11/18/17 11/18/17 11/18/17 11/19/17 11/19/17 11/19/17 07:00 15:00 23:00 07:00 15:00 23:00 Intake Total 290 ml 3000 ml 1240 ml Output Total 2600 ml 2900 ml 1400 ml Balance -2310 ml 100 ml -160 ml Intake Oral 240 ml 3000 ml 240 ml IV Total 50 ml 1000 ml Output Urine Total 2600 ml 2900 ml 1400 ml # Bowel Movements 0 (Oscar Santos MD R3) Result Diagram: 11/18/17 0545 11/18/17 0545 Imaging Last Impressions Chest X-Ray 11/15/17 0000 Signed Impressions: CONCLUSION: No significant interval change Brain MRI 11/10/17 0000 Signed Impressions: Service Date/Time: Friday, November 10, 2017 14:00 - CONCLUSION: 1. Stable examination. Specifically, no acute infarction, hemorrhage or mass. 2. Senescent changes with periventricular white matter ischemic demyelination and focal lacunar type infarct in the right centrum semiovale. César Coats MD Liver Ultrasound 11/07/17 0000 Signed Impressions: Service Date/Time: October 08:05 - CONCLUSION: 1. Heterogeneous liver suggestive of hepatocellular disease such as cirrhosis. There is a small amount of ascites surrounding the liver. This is not significantly changed compared to the recent CT scan of the abdomen. 2. Sludge in the gallbladder. No definite gallstones or biliary tract obstruction. 3. Mild splenomegaly. 4. Mild hydronephrosis of the right collecting system. Markie Crabtree MD Head CT 11/06/17 0000 Signed Impressions: Service Date/Time: Monday, November 06, 2017 10:03 - CONCLUSION: 1. No acute intracranial abnormality or significant interval change. César Coats MD Abdomen X-Ray 11/04/17 0000 Signed Impressions: Service Date/Time: Saturday, November 04, 2017 17:50 - CONCLUSION: Nonspecific intestinal gas pattern Jose Wright MD Abdomen/Pelvis CT 10/31/17 1321 Signed Impressions: Service Date/Time: October 13:58 - CONCLUSION: 1. Development of innumerable small sclerotic lesions in the skeleton most characteristic of sclerotic bony metastatic disease. There is a reported history of malignancy. 2. Hepatomegaly with development of mild ascites. 3. Persistent moderate hydronephrosis with perinephric stranding similar to February 2017. Interval development of mild anasarca. 4. Gallbladder sludge. Gallo catheter in bladder. Samuel Lin MD Lung Scan-V Nuclear Medicine 10/31/17 0000 Signed Impressions: Service Date/Time: October 15:00 - CONCLUSION: Low probability scan for pulmonary embolism Jose Wright MD Objective Remarks GENERAL: No acute distress Eyes: EOM grossly intact. Skin: No visible lesions. Buttock skin tears not visualized CARDIOVASCULAR: normal rate; 3/6 murmur. Normal distal LE perfusion bilaterally RESPIRATORY: Normal rate. CTAB; no congestion or wheezing to auscultation GASTROINTESTINAL: Abdomen soft, distended. Normal bowel sounds. MUSCULOSKELETAL: No calf asymmetry or pain to palpation. No LE edema NEUROLOGICAL: No cranial nerve or peripheral motor/sensory deficits (Oscar Santos MD R3) A/P Assessment and Plan Patient is a 72-year-old admitted due to septic shock from urinary source; patient also with sclerotic bony lesions concerning for colon cancer metastasis. Due to respiratory decline/multiorgan failure, patient on ventilator 11/02. Critical care, Nephrology, and infectious disease consulted. Patient extubated ; has had altered mental status since extubation. Patient since has improved in terms of her mental status. Patient developed Cdiff is being treated with oral Vancomycin. She is improving currently and receiving PT and OT Discharge Planning Anticipate discharge to SNF in the next several days (Oscar Santos MD R3) Attending Attestation Medical rounds with Dr Santos this am Patient interviewed and examination performed Agree with contents of above note See Orders (Jefferson Ambrosio MD) Problem List: (1) Sepsis ICD Codes: A41.9 - Sepsis, unspecified organism Status: Resolved Plan: Impression: Septic shock on admission; labs suggestive of multiorgan dysfunction. Patient initially required >4 L crystalloids and was placed on pressors. E coli from urinary source. Patient developed respiratory failure and required intubation; possible concern for aspiration also. Subsequently, patient found to have C diff colitis Labs: Cr: 2.10 (10/31) -> 0.61 (11/18) WBC: 15.8 (10/31) -> 6.7 (11/18) Lactic acid: 3 (10/31) -> 3.3 (11/02) -Continue antibiotic therapy -Infectious disease consulted -Started on Fluconazole 100mg daily (11/14-11/20) -Continue Zosyn (11/10- 11/18) -Continue Vancomycin 125mg PO q 6hrs (11/10-) -Monitor cultures, temps -Continue to monitor CBC, BMP, urine output Antibiotic history: s/p Meropenem 2gm q12hrs IV -s/p Zosyn 2.5mg q6hrs (10/31-11/02) -s/p Tobramycin IV x1 11/02 -s/p Rocephin 11/03-11/06 -s/p Cefepime 2gm IV BID -s/p Levofloxacin 11/10 Cultures: -Urine culture 11/12- Debra Glabrata -11/10- C diff PCR + 11/05 -Sputum culture negative x48hrs 11/02- blood x2- negative x5 days 10/31- blood x2 taylor sensitive E Coli 10/31- urine- taylor sensitive E coli (2) Hypertension ICD Codes: I10 - Essential (primary) hypertension Status: Chronic Plan: 11/19: Improvement overnight since initiation of Amlodipine; SBP 130's-160 's Impression: H HTN. Initial hypotension on admission w/ septic shock. Now intermittent hypertension based on agitation/sedation -Continue to monitor -Continue Metoprolol 25mg q8 hrs -Clonidine 0.1mg PRN q6hrs BP 180/100 -Vasotec 1.25mg q8hrs PRN BP >160/90 -Continue amlodipine 5mg to daily BP medications (normal EF) (3) Clostridium difficile infection ICD Codes: B96.89 - Other specified bacterial agents as the cause of diseases classified elsewhere Status: Acute Plan: Impression: Diarrhea; C diff toxin PCR + -Continue oral vancomycin 125mg q6hrs PO (4) ASH (acute kidney injury) ICD Codes: N17.9 - Acute kidney failure, unspecified Status: Resolved Plan: Impression: renal injury presumed secondary to septic shock/multiorgan dysfunction Cr- 2.12 on admission-> 2.59 (11/02) -> 3.53 (11/04) -> downtrended to WNL Nephrology and Urology previously consulted; subsequently signed off CT abdomen/pelvis- moderate hydronephrosis w/ perinephric stranding similar to . Interval development of mild anasarca. F/U US with continued mild hydronephrosis 11/07 -Continue to monitor (5) Elevated LFTs ICD Codes: R79.89 - Other specified abnormal findings of blood chemistry Status: Resolved Plan: Impression: Patient with normal LFT's on admission-> mild transaminase elevations: (11/02- TBILI 1.7, AST 122, ALT 62, ALKP 54 -> 5/17- TBILI 1.4, AST 77, ALT 122, ALKP65) Suspect likely related to sepsis/organ injury Labs: Ceruloplasmin 37, [id number] 225, Hep panel negative JELANI+; titer >1:1280; speckled pattern Liver US per CC- heterogenous liver suggestive of hepatocellular disease such as cirrhosis. Small ascites; not recently changed since last CT. Sludge in gallbladder; no definite gallstones. Mild splenomegaly. Mild hydronephrosis Ceftriaxone stopped per ID Gastroenterology consulted; signed off after improvement Stopped lactulose and Rifaximin dose due to current diarrhea (6) Atrial fibrillation ICD Codes: I48.91 - Unspecified atrial fibrillation Status: Chronic Plan: Impression: patient initially placed on amiodarone drip and given digoxin for afib with RVR on admission. Patient currently with normal rate/ sinus rhythm. Patient with reported history of moderate mitral stenosis and mild /moderate aortic stenosis Echocardiogram- moderate concentric LVF. EF 70%. Aortic sclerosis present. 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 [id number]. s/p Zeloda 08/2016. Abdomen/Pelvis CT 10/31/17: Innumerable small sclerotic lesions in the skeleton, most characteristic of sclerotic bony metastatic disease -Dr. Candelario consulted -recent bone scan w/o uptake; reassuring regarding sclerotic lesions -plan for PET as outpatient -Continue heparin, treatment for sepsis (8) Weakness ICD Codes: R53.1 - Weakness Status: Acute Plan: -PT consulted -Planned discharge to SNF; OT recommended -ST- signed off -OT- recommend rehab (9) Diabetes mellitus, type II ICD Codes: E11.9 - Type 2 diabetes mellitus Status: Chronic Plan: Impression: On home Lantus 10 U HS. Borderline low blood glucose prior to administration 11/19; suspect lower glucose values due to less oral intake -Low dose SSI -Continue to monitor blood sugar -Will reduce Levemir to 8 U HS (10) UTI (urinary tract infection) ICD Codes: N39.0 - Urinary tract infection, site not specified Status: Resolved Plan: Impression: UA with large leukocyte esterase, innumerable WBCs, many WBC clumps Urine culture and blood cultures 10/31 with pansensitive E Coli -Management as above for sepsis (11) Hypothyroidism ICD Codes: E03.9 - Hypothyroidism Status: Chronic Plan: Continue home Levothyroxine (12) Positive JELANI (antinuclear antibody) ICD Codes: R76.8 - Other specified abnormal immunological findings in serum Plan: JELANI 1: 1280. has speckled pattern and markedly positive. unclear at this point what the significance is. Subsequent rheumatologic labs w/o abnormalities. (13) Skin tear Status: Acute Plan: Impression: Buttock skin tears associated with frequent diarrhea -Wound care consulted -cleanse with Remedy barrier wipes to remove stool -Apply Calazime skin protectant past to bilateral buttocks in thick layer BID -Turn patient q2hrs and as needed to offload -Use Ultrasorb pad; do not use cloth pads (14) Altered mental state ICD Codes: R41.82 - Altered mental status, unspecified Status: Resolved Plan: 11/18- No mental status concerns Impression: Persistent lack of orientation after extubation 11/05. No focal deficits. History of TIA. Suspect multifactorial. off of sedation since extubation. Suspect possible hepatic encephalopathy as component plus may have been uremic Imaging: CT head 10/31 on admission (ordered due to confusion on admission; suspected secondary to sepsis) w/o acute findings. Remote lacunar infarct in right frontal white matter Repeat head CT 11/06 without acute intracranial abnormality MRI brain 11/08- chronic changes with some periventricular small vessel ischemic demyelination and old lacunar infarct at junction of R coronal radiata and centrum semiovale MRI brain 11/10- stable exam EEG 11/11- moderate encephalopathy with triphasic waveforms; possible she could have nonconvulsive seizures EEG 11/15- moderate encephalopathy; no focal abnormality. No seizure activity seen Labs: Leukocytosis. Some hypocalcemia. Normal sodium. Ammonia 76 11/06 -> 39 (11/08) -> 33 11/10-> 38 5/25 -> 24 (11/17) LFT elevations- 11/02-11/08- (TBILI mild elevation, mild AST and ALT elevations normal ALKP); subsequently normal values with exception of mild Alk P elevation ABG 11/07- pH 7.34, CO2 37, HCO3 20 -Neurology consulted-appreciate recs -Likely metabolic encephalopathy -Antibiotic therapy changed to Zosyn to avoid possible encephalopathy from Cefepime -Discontinued IV Cerebrex since no seizures on last EEG -Hyperammonemia -Hold Lactulose BID (loose stool from Cdiff) -Hold rifaximin 550mg BID (loose stool from Cdiff) -Monitor ammonia periodically -Supportive care; monitor labs (15) Pain in both feet ICD Codes: M79.671 - Pain in right foot; M79.672 - Pain in left foot Status: Acute Plan: Impression: Unclear etiology. Associated with some LE swelling. High JELANI but does not appear joint related. -Due to improvement in renal function, will start Meloxicam 7.5mg daily and monitor pain and renal function (16) FEN/PPX Plan: Fluid: Will continue mild IVF Electrolytes: Continue to monitor; replacement per protocol Nutrition: normal diet DVT PPX: Xarelto 20mg daily (Oscar Santos MD R3) Problem Qualifiers (1) Sepsis: Qualified Codes: A41.9 - Sepsis, unspecified organism (2) Hypertension: Qualified Codes: I10 - Essential (primary) hypertension (3) Atrial fibrillation: Qualified Codes: I48.2 - Chronic atrial fibrillation (4) Diabetes mellitus, type II: Qualified Codes: E11.8 - Type 2 diabetes mellitus with unspecified complications (5) UTI (urinary tract infection): (6) Hypothyroidism: Qualified Codes: E03.9 - Hypothyroidism, unspecified Oscar Santos MD R3 November 19, 2017 11:07 Jefferson Ambrosio MD November 19, 2017 18:30
[2017-11-19] MEDS: ACETAMINOPHEN 325 MG TAB PO PRN (11:09)
[2017-11-19 12:00] VITALS: BP 147/77; PULSE 70; RESP 18; TEMP 97.9; O2SAT 95
[2017-11-19] MEDS: MELOXICAM 7.5 MG TAB PO SCH (13:31)
--- NOTE | 2017-11-19 14:29 | HHI.IDPN ---
Subjective Subjective Remarks Patient seen and examined on behalf of Dr. Srinivasan Ms. Marroquin is a 72-year-old female with past medical history significant for colon cancer with reported history of spots on her vertebrae. Patient's spouse reports that she was scheduled to have a PET scan but could not complete it as she was extremely weak. Dr. Vargas is her oncologist and is following her. Her past medical history is also significant for hypertension hyperlipidemia, atrial fibrillation status post previous ablation, type 2 diabetes. With this background patient presents to the emergency department with generalized weakness as well as hypotensive upon arrival. She was diagnosed with possible UTI sepsis. She received 4 L of IV fluids in the emergency room and her blood pressure improved to 690s systolic. But she continued to be in atrial fibrillation with heart rate in 130s. She had a negligible urine output despite 4 L IV fluids and elevated lactic acid remains a concern. Sepsis workup was initiated and patient was started on empiric IV antibiotics for presumed UTI related sepsis. Per review of records it appears that patient reportedly did not eat or drink for 30 hours prior to admission and was having burning with urination approximately 2 days prior to admission. CT of the head was done which was unremarkable a CT of the abdomen pelvis showed moderate hydronephrosis as well as several spots as mentioned in the report concerning for malignancy related metastases. Oncology Dr. Vargas is following the patient. A VQ scan was done which showed low probability of PE. Blood cultures done on admission are positive for E. coli as well as her urine culture was also positive for E. coli. Patient has been treated with ceftriaxone and has been clinically improved. Repeat blood cultures are negative so far. Urology has seen the patient and there is no plan for placement of stent. This appears to be hydronephrosis with stranding around the kidney suggestive of pyelonephritis. Infectious diseases consulted for evaluation and management of sepsis, E. coli bacteremia and E. coli pyelonephritis. Notes reviewed is at the bedside and reports increased appetite and decreasing stool volume patient tired from participating with therapy earlier today c/o pain over the top of both feet relieved with Mobic still with liquid stools no fever no rash no N/V no abdominal pain Mental status continues to improve Repeat UCX +susanne glabrata Good UOP CT head negative. EEG metabolic encephalopathy. repeat EEG same Repeat CXR shows worse aeration but clinically patient appears improved, good O2 sats Antibiotics PO Vanco Current Medications Medications (Trade) Dose Ordered Sig/Chiqui Route Start Time Stop Time Status Last Admin (Cordarone) 200 mg DAILY PO 11/01/17 09:00 Future hold 11/12/17 08:15 (PROzac) 20 mg DAILY PO 11/01/17 09:00 11/12/17 08:16 (Synthroid) 50 mcg DAILY@0600 PO 11/01/17 06:00 11/12/17 05:43 (Pravachol) 40 mg DAILY PO 11/01/17 09:00 Future Hold 11/08/17 08:36 (Xarelto) 20 mg DAILY PO 11/01/17 09:00 Future Hold (Effexor Xr) 75 mg DAILY PO 11/01/17 09:00 11/12/17 08:15 (NS Flush) 2 ml UNSCH PRN IV FLUSH 10/31/17 15:30 (NS Flush) 2 ml BID IV FLUSH 10/31/17 21:00 11/11/17 20:34 (Tylenol) 650 mg Q4H PRN PO 10/31/17 15:30 11/01/17 19:50 (Narcan Inj) 0.4 mg UNSCH PRN IV PUSH 10/31/17 15:30 (Elsa-Colace) 1 tab BID PO 10/31/17 21:00 11/12/17 08:16 (Milk Of Magnesia Liq) 30 ml Q12H PRN PO 10/31/17 15:30 (Senokot) 17.2 mg Q12H PRN PO 10/31/17 15:30 11/04/17 08:19 (Dulcolax Supp) 10 mg DAILY PRN RECTAL 10/31/17 15:30 (Glucagon Inj) 1 mg UNSCH PRN OTHER 10/31/17 15:30 (Zofran Odt) 4 mg Q6H PRN PO 10/31/17 15:30 11/07/17 20:48 Acetaminophen 100 ml @ 400 mls/hr Q6H PRN IV 10/31/17 17:15 11/12/17 00:02 ([facility] Nursing Information) Patient in critical care unit? Ass... Q361D .XX 10/31/17 23:15 10/31/17 23:15 (Brethine Inj) 1 mg UNSCH PRN SQ 10/31/17 23:30 Heparin Sodium/ Dextrose 250 ml @ 10 mls/hr TITRATE PRN IV 11/01/17 09:00 11/12/17 05:41 Albumin Human 50 ml @ 60 mls/hr Q12H IV 11/01/17 09:00 11/12/17 08:17 ([place] 5-325 Mg) 1 tab Q4H PRN PO 11/01/17 13:15 11/12/17 08:16 (Pyridium) 100 mg Q8H PRN PO 11/01/17 13:45 (Restoril) 15 mg HS PRN PO 11/01/17 22:00 11/01/17 22:43 (Peridex 0.12% Liq) 15 ml BID@08,20 MT 11/02/17 08:00 11/12/17 08:00 (Trandate Inj) 10 mg Q4H PRN IV PUSH 11/05/17 10:45 11/11/17 21:25 (Apresoline Inj) 20 mg Q4H PRN IV PUSH 11/06/17 07:30 11/09/17 05:18 Potassium Chloride 100 ml @ 50 mls/hr Q2H PRN IV 11/07/17 07:45 11/12/17 09:11 Potassium Chloride 100 ml @ 50 mls/hr Q2H PRN IV 11/07/17 07:45 11/09/17 07:25 (K-Lyte Cl Eff) 50 meq UNSCH PRN PO 11/07/17 07:45 11/08/17 17:55 Potassium Chloride 100 ml @ 25 mls/hr UNSCH PRN IV 11/07/17 07:45 11/08/17 08:35 Potassium Chloride 100 ml @ 50 mls/hr Q2H PRN IV 11/07/17 07:45 Magnesium Sulfate 4 gm/Sodium Chloride 100 ml @ 50 mls/hr UNSCH PRN IV 11/07/17 07:45 (Mag-Ox) 800 mg UNSCH PRN PO 11/07/17 07:45 Magnesium Sulfate 2 gm/Sodium Chloride 100 ml @ 50 mls/hr UNSCH PRN IV 11/07/17 07:45 (K-Phos) 2,000 mg Q4H PRN PO 11/07/17 07:45 Sodium Phosphate 30 mmol/Sodium Chloride 250 ml @ 42 mls/hr UNSCH PRN IV 11/07/17 07:45 (K-Phos) 2,000 mg UNSCH PRN PO/TUBE 11/07/17 07:45 Potassium Phosphate 30 mmol/ Sodium Chloride 260 ml @ 42 mls/hr UNSCH PRN IV 11/07/17 07:45 (Lopressor) 25 mg Q8HR PO 11/07/17 07:45 11/12/17 05:43 (Xifaxan) 550 mg BID PO 11/07/17 21:00 11/12/17 08:16 (Duoneb Neb) 1 ampule Q6HR NEB NEB 11/09/17 10:30 11/12/17 08:45 (Cerebyx Inj) 200 mgpe Q12H IV 11/10/17 02:00 11/12/17 02:42 Piperacillin Sod/ Tazobactam Sod 50 ml @ 100 mls/hr Q6H IV 11/10/17 15:00 11/12/17 08:15 (Lactulose Liq) 30 ml Q6H PO 11/10/17 21:00 11/12/17 02:42 Sodium Chloride 38.5 meq/Sterile Water 1,009.625 ml @ 60 mls/hr [id number] IV 11/10/17 18:15 11/12/17 02:42 (Provigil) 200 mg DAILY PO 11/11/17 09:00 11/12/17 08:16 (D50w (Vial) Inj) 25 ml UNSCH PRN IV PUSH 11/10/17 18:15 (NovoLIN R SUPPLEMENTAL SCALE) 1 Q4HR SQ 11/10/17 20:00 11/12/17 08:00 (Levemir Inj) 10 units HS SQ 11/10/17 21:00 11/11/17 20:34 (VANCOMYCIN for oral use only) 125 mg Q6H PO 11/10/17 22:00 11/12/17 05:42 Lines Port site ok Past Medical History reviewed (Allison Mays) Allergies: Coded Allergies: Sulfa (Sulfonamide Antibiotics) (Verified Allergy, Severe, 10/31/17) codeine (Verified Allergy, Severe, Nausea/Vomiting, 10/31/17) Uncoded Allergies: METAL (Allergy, Intermediate, hives, 03/08/16) SURGICAL STEEL (Allergy, Intermediate, hives, 03/08/16) Objective . Vital Signs Date Time Temp Pulse Resp B/P (MAP) Pulse Ox O2 Delivery O2 Flow Rate FiO2 11/19/17 12:00 97.9 70 18 147/77 (100) 95 11/19/17 08:00 97.7 70 18 144/63 (90) 96 11/19/17 00:00 98.0 76 18 137/77 (97) 93 11/18/17 20:00 98.0 68 18 156/78 (104) 94 11/18/17 18:46 18 11/18/17 16:00 97.5 65 17 155/79 (104) 95 . Laboratory Tests Test 11/18/17 05:45 White Blood Count 6.7 TH/MM3 Red Blood Count 3.44 MIL/MM3 Hemoglobin 9.5 GM/DL Hematocrit 29.3 % Mean Corpuscular Volume 85.2 FL Mean Corpuscular Hemoglobin 27.6 PG Mean Corpuscular Hemoglobin Concent 32.4 % Red Cell Distribution Width 22.7 % Platelet Count 223 TH/MM3 Mean Platelet Volume 8.9 FL Neutrophils (%) (Auto) 77.7 % Lymphocytes (%) (Auto) 10.7 % Monocytes (%) (Auto) 9.1 % Eosinophils (%) (Auto) 1.8 % Basophils (%) (Auto) 0.7 % Neutrophils # (Auto) 5.2 TH/MM3 Lymphocytes # (Auto) 0.7 TH/MM3 Monocytes # (Auto) 0.6 TH/MM3 Eosinophils # (Auto) 0.1 TH/MM3 Basophils # (Auto) 0.0 TH/MM3 CBC Comment DIFF FINAL Differential Comment Laboratory Tests Test 11/18/17 05:45 Blood Urea Nitrogen 5 MG/DL Creatinine 0.61 MG/DL Random Glucose 87 MG/DL Total Protein 7.2 GM/DL Albumin 2.6 GM/DL Calcium Level 8.4 MG/DL Alkaline Phosphatase 224 U/L Aspartate Amino Transf (AST/SGOT) 30 U/L Alanine Aminotransferase (ALT/SGPT) 28 U/L Total Bilirubin 0.4 MG/DL Sodium Level 141 MEQ/L Potassium Level 3.6 MEQ/L Chloride Level 109 MEQ/L Carbon Dioxide Level 23.3 MEQ/L Anion Gap 9 MEQ/L Estimat Glomerular Filtration Rate 97 ML/MIN Imaging Last Impressions Chest X-Ray 11/15/17 0000 Signed Impressions: CONCLUSION: No significant interval change Brain MRI 11/10/17 0000 Signed Impressions: Service Date/Time: Friday, November 10, 2017 14:00 - CONCLUSION: 1. Stable examination. Specifically, no acute infarction, hemorrhage or mass. 2. Senescent changes with periventricular white matter ischemic demyelination and focal lacunar type infarct in the right centrum semiovale. César Coats MD Liver Ultrasound 11/07/17 0000 Signed Impressions: Service Date/Time: October 08:05 - CONCLUSION: 1. Heterogeneous liver suggestive of hepatocellular disease such as cirrhosis. There is a small amount of ascites surrounding the liver. This is not significantly changed compared to the recent CT scan of the abdomen. 2. Sludge in the gallbladder. No definite gallstones or biliary tract obstruction. 3. Mild splenomegaly. 4. Mild hydronephrosis of the right collecting system. Markie Crabtree MD Head CT 11/06/17 0000 Signed Impressions: Service Date/Time: Monday, November 06, 2017 10:03 - CONCLUSION: 1. No acute intracranial abnormality or significant interval change. César Coats MD Abdomen X-Ray 11/04/17 0000 Signed Impressions: Service Date/Time: Saturday, November 04, 2017 17:50 - CONCLUSION: Nonspecific intestinal gas pattern Jose Wright MD Abdomen/Pelvis CT 10/31/17 1321 Signed Impressions: Service Date/Time: October 13:58 - CONCLUSION: 1. Development of innumerable small sclerotic lesions in the skeleton most characteristic of sclerotic bony metastatic disease. There is a reported history of malignancy. 2. Hepatomegaly with development of mild ascites. 3. Persistent moderate hydronephrosis with perinephric stranding similar to February 2017. Interval development of mild anasarca. 4. Gallbladder sludge. Gallo catheter in bladder. Samuel Lin MD Lung Scan-V Nuclear Medicine 10/31/17 0000 Signed Impressions: Service Date/Time: October 15:00 - CONCLUSION: Low probability scan for pulmonary embolism Jose Wright MD Physical Exam GENERAL: WDWN female, INAD. Appears tired. at the bedside. SKIN: No generalized rash. Cool and dry HEAD: Atraumatic. Normocephalic. No temporal or scalp tenderness. EYES: Pupils equal round and reactive. Extraocular motions intact. No scleral icterus. No injection or drainage. ENT: No nasal drainage. Airway patent. MMM. NECK: Trachea midline. Supple, nontender, no meningeal signs. CARDIOVASCULAR: HS audible. No murmur. RESPIRATORY: Nonlabored. Clear to auscultation. Breath sounds decreased in the bases. GASTROINTESTINAL: Abdomen distended. Non tender. No guarding or rebound Incontinent of liquid dark stool MUSCULOSKELETAL: Extremities without clubbing, cyanosis, or edema. No joint tenderness, effusion, or edema noted. NEUR: Awake and alert. Able to move all extremities spontaneously. Normal speech. Psych calm and cooperative Port site with no e.o infection. (Allison Mays) Assessment & Plan Remarks Severe sepsis present on admission, has improved New fever - likely due to C diff colitis - ?other source E. coli pyelonephritis with hydronephrosis with no evidence of obstruction per urology notes. No plans for stent placement. E. coli bacteremia appears to be transient and related to the E. coli pyelonephritis. Repeat UCX + Susanne Glabrata Possible aspiration pneumonia on admission Acute metabolic encephalopathy likely secondary to sepsis, acute renal failure, cirrhosis (hepatic) - Dr Murillo concerned of cefepime causing the encephalopathy, abx switched to levaquine Acute renal failure on admission: prerenal, sepsis. -Improving Abnormal LFTs: sepsis, meds, cirrhosis. Leucocytosis, improving Colon cancer with suspected mets. Recs: Continue Oral Vanco for Cdiff Follow temps Monitor progress (Allison Mays) Remarks The exam, history, and the medical decision-making described in the above note were completed with the assistance of the mid-level provider. I reviewed and agree with the findings presented. I attest that I had a [id number] encounter with the patient on the same day, and personally performed and documented my assessment and findings in the medical record. Tsering Taveras Dr.Chotas Ye stop date in chart Vanco oral for Cdiff stop date in chart. Will sign off please call back if any change in clinical condition or questions. (Brittani Srinivasan MD) Allison Mays November 19, 2017 14:29 Brittani Srinivasan MD November 19, 2017 14:51
[2017-11-19 16:00] VITALS: BP 149/69; PULSE 60; RESP 18; TEMP 97.4; O2SAT 93
[2017-11-19 20:00] VITALS: BP 173/83; PULSE 63; RESP 18; TEMP 97.6; O2SAT 95
[2017-11-19] MEDS ORDERED: INSULIN DETEMIR 100 UNITS/ML VIAL SQ SCH (21:00)
[2017-11-19] MEDS: TEMAZEPAM 7.5 MG CAP PO PRN (23:21)
[2017-11-20] VITALS (7 sets, daily range): BP systolic 150–191; BP diastolic 69–90; PULSE 56–72; RESP 16–20; TEMP 96.5–97.7; O2SAT 93–96
[2017-11-20] MEDS: NS + KCL 20 MEQ INJ 1,000 ML IV SCH ×2 (02:06→18:56)
[2017-11-20] MEDS: VANCOMYCIN 500 MG VIAL (FOR ORAL USE ONLY) PO SCH ×4 (05:28→22:20)
[2017-11-20] MEDS: LEVOTHYROXINE SODIUM 50 MCG TAB PO SCH (05:28)
[2017-11-20] MEDS: METOPROLOL TARTRATE 25 MG TAB PO SCH ×3 (05:29→22:20)
[2017-11-20] MEDS: INSULIN ASPART SUPPLEMENTAL SCALE SQ SCH ×4 (08:00→22:20)
[2017-11-20] MEDS: SODIUM CHLORIDE 0.9% FLUSH 10 ML FLUSH IV FLUSH SCH ×2 (09:00→21:00)
[2017-11-20] MEDS: AMIODARONE 200 MG TAB PO SCH (09:16)
[2017-11-20] MEDS: VENLAFAXINE HCL XR 75 MG CAP PO SCH (09:16)
[2017-11-20] MEDS: MELOXICAM 7.5 MG TAB PO SCH (09:16)
[2017-11-20] MEDS: amLODIPine BESYLATE 5 MG TAB PO SCH (09:16)
[2017-11-20] MEDS: RIVAROXABAN 20 MG TAB PO SCH (09:16)
[2017-11-20] MEDS: ACETAMINOPHEN/HYDROcodone 325 MG/5 MG TAB PO PRN ×2 (09:27→14:09)
--- NOTE | 2017-11-20 12:06 | HHI.FPPN ---
Subjective Remarks Mrs. Marroquin was afebrile with HTN overnight (MAP high of 119). Patient reports worsening of left foot pain and swelling. She states that pain medication also did not work well. Patient otherwise reports doing well; she was able to sit at bedside for ~15 minutes yesterday. Patient does not report chest pain, shortness of breath, or abdominal pain. No eating concerns. Patient states that she is not interested in rehabilitation after discharge and that she prefers to go home. (Oscar Santos MD R3) Objective Vitals Vital Signs Date Time Temp Pulse Resp B/P (MAP) Pulse Ox O2 Delivery O2 Flow Rate FiO2 11/20/17 08:00 97.2 69 19 156/78 (104) 96 11/20/17 06:22 56 152/69 (96) 11/20/17 04:00 97.7 69 17 191/84 (119) 96 11/20/17 00:00 97.6 63 18 173/83 (113) 95 11/19/17 20:00 97.6 63 18 173/83 (113) 95 11/19/17 16:00 97.4 60 18 149/69 (95) 93 11/19/17 12:00 97.9 70 18 147/77 (100) 95 I/O 11/19/17 11/19/17 11/19/17 11/20/17 11/20/17 11/20/17 07:00 15:00 23:00 07:00 15:00 23:00 Intake Total 1240 ml 960 ml 1240 ml Output Total 1400 ml 1000 ml 1800 ml Balance -160 ml -40 ml -560 ml Intake Oral 240 ml 960 ml 240 ml IV Total 1000 ml 1000 ml Output Urine Total 1400 ml 1000 ml 1800 ml # Bowel Movements 0 (Oscar Santos MD R3) Result Diagram: 11/18/17 0545 11/18/17 0545 Imaging Last Impressions Chest X-Ray 11/15/17 0000 Signed Impressions: CONCLUSION: No significant interval change Brain MRI 11/10/17 0000 Signed Impressions: Service Date/Time: Friday, November 10, 2017 14:00 - CONCLUSION: 1. Stable examination. Specifically, no acute infarction, hemorrhage or mass. 2. Senescent changes with periventricular white matter ischemic demyelination and focal lacunar type infarct in the right centrum semiovale. César Coats MD Liver Ultrasound 11/07/17 0000 Signed Impressions: Service Date/Time: October 08:05 - CONCLUSION: 1. Heterogeneous liver suggestive of hepatocellular disease such as cirrhosis. There is a small amount of ascites surrounding the liver. This is not significantly changed compared to the recent CT scan of the abdomen. 2. Sludge in the gallbladder. No definite gallstones or biliary tract obstruction. 3. Mild splenomegaly. 4. Mild hydronephrosis of the right collecting system. Markie Crabtree MD Head CT 11/06/17 0000 Signed Impressions: Service Date/Time: Monday, November 06, 2017 10:03 - CONCLUSION: 1. No acute intracranial abnormality or significant interval change. César Coats MD Abdomen X-Ray 11/04/17 0000 Signed Impressions: Service Date/Time: Saturday, November 04, 2017 17:50 - CONCLUSION: Nonspecific intestinal gas pattern Jose Wright MD Abdomen/Pelvis CT 10/31/17 1321 Signed Impressions: Service Date/Time: October 13:58 - CONCLUSION: 1. Development of innumerable small sclerotic lesions in the skeleton most characteristic of sclerotic bony metastatic disease. There is a reported history of malignancy. 2. Hepatomegaly with development of mild ascites. 3. Persistent moderate hydronephrosis with perinephric stranding similar to February 2017. Interval development of mild anasarca. 4. Gallbladder sludge. Gallo catheter in bladder. Samuel Lin MD Lung Scan- Nuclear Medicine 10/31/17 0000 Signed Impressions: Service Date/Time: October 15:00 - CONCLUSION: Low probability scan for pulmonary embolism Jose Wright MD Objective Remarks GENERAL: No acute distress Eyes: EOM grossly intact. Skin: Right foot with erythema on dorsum of foot ~3 cm which appears raised. Painful to light touch most prominent over area of erythema, but patient also has pain in bilateral lower extremities in edematous areas. Buttock skin tears not visualized CARDIOVASCULAR: normal rate; 3/6 murmur. Normal distal LE perfusion bilaterally RESPIRATORY: Normal rate. CTAB; no congestion or wheezing to auscultation GASTROINTESTINAL: Abdomen soft, distended. Normal bowel sounds. MUSCULOSKELETAL: No calf asymmetry or pain to palpation. Bilateral LE edema to mid shins; increased from prior exam NEUROLOGICAL: No cranial nerve or peripheral motor/sensory deficits (Oscar Santos MD R3) A/P Assessment and Plan Patient is a 72-year-old admitted due to septic shock from urinary source; patient also with sclerotic bony lesions concerning for colon cancer metastasis. Due to respiratory decline/multiorgan failure, patient on ventilator 11/02. Critical care, Nephrology, and infectious disease consulted. Patient extubated ; has had altered mental status since extubation. Patient since has improved in terms of her mental status. Patient developed Cdiff is being treated with oral Vancomycin. She is improving currently and receiving PT and OT Discharge Planning Anticipate discharge to SNF in the next several days (Oscar Santos MD R3) Attending Attestation Patient seen and examined with Dr Santos EMR reviewed Case discussed in detail Agree with contents of note and assessment See Orders (Jefferson Ambrosio MD) Problem List: (1) Sepsis ICD Codes: A41.9 - Sepsis, unspecified organism Status: Resolved Plan: Impression: Septic shock on admission; labs suggestive of multiorgan dysfunction. Patient initially required >4 L crystalloids and was placed on pressors. E coli from urinary source. Patient developed respiratory failure and required intubation; possible concern for aspiration also. Subsequently, patient found to have C diff colitis Labs: Cr: 2.10 (10/31) -> 0.61 (11/18) WBC: 15.8 (10/31) -> 6.7 (11/18) Lactic acid: 3 (10/31) -> 3.3 (11/02) -Continue antibiotic therapy -Infectious disease consulted -Continue Vancomycin 125mg PO q 6hrs (11/10-) -Monitor cultures, temps -Continue to monitor CBC, BMP, urine output Antibiotic history: s/p Meropenem 2gm q12hrs IV -s/p Zosyn 2.5mg q6hrs (10/31-11/02) -s/p Tobramycin IV x1 11/02 -s/p Rocephin 11/03-11/06 -s/p Cefepime 2gm IV BID -s/p Levofloxacin 11/10 -s/p Fluconazole 100mg daily (11/14-11/20) -s/p Zosyn (11/10- 11/18) Cultures: -Urine culture 11/12- Debra Glabrata -11/10- C diff PCR + 11/05 -Sputum culture negative x48hrs 11/02- blood x2- negative x5 days 10/31- blood x2 taylor sensitive E Coli 10/31- urine- taylor sensitive E coli (2) Hypertension ICD Codes: I10 - Essential (primary) hypertension Status: Chronic Plan: 11/20: Improvement overnight since initiation of Amlodipine; SBP's recently elevated Impression: PMH HTN. Initial hypotension on admission w/ septic shock. Now intermittent hypertension based on agitation/sedation -Continue to monitor -Continue Metoprolol 25mg q8 hrs -Clonidine 0.1mg PRN q6hrs BP 180/100 -Vasotec 1.25mg q8hrs PRN BP >160/90 -Continue amlodipine 5mg to daily BP medications (normal EF) (3) Clostridium difficile infection ICD Codes: B96.89 - Other specified bacterial agents as the cause of diseases classified elsewhere Status: Acute Plan: Impression: Diarrhea; C diff toxin PCR + -Continue oral vancomycin 125mg q6hrs PO (4) ASH (acute kidney injury) ICD Codes: N17.9 - Acute kidney failure, unspecified Status: Resolved Plan: Impression: renal injury presumed secondary to septic shock/multiorgan dysfunction Cr- 2.12 on admission-> 2.59 (11/02) -> 3.53 (11/04) -> downtrended to WNL Nephrology and Urology previously consulted; subsequently signed off CT abdomen/pelvis- moderate hydronephrosis w/ perinephric stranding similar to . Interval development of mild anasarca. F/U US with continued mild hydronephrosis 11/07 -Continue to monitor (5) Elevated LFTs ICD Codes: R79.89 - Other specified abnormal findings of blood chemistry Status: Resolved Plan: Impression: Patient with normal LFT's on admission-> mild transaminase elevations: (11/02- TBILI 1.7, AST 122, ALT 62, ALKP 54 -> 11/07- TBILI 1.4, AST 77, ALT 122, ALKP65) Suspect likely related to sepsis/organ injury Labs: Ceruloplasmin 37, [id number] 225, Hep panel negative JELANI+; titer >1:1280; speckled pattern Liver US per CC- heterogenous liver suggestive of hepatocellular disease such as cirrhosis. Small ascites; not recently changed since last CT. Sludge in gallbladder; no definite gallstones. Mild splenomegaly. Mild hydronephrosis Ceftriaxone stopped per ID Gastroenterology consulted; signed off after improvement Stopped lactulose and Rifaximin dose due to current diarrhea (6) Atrial fibrillation ICD Codes: I48.91 - Unspecified atrial fibrillation Status: Chronic Plan: Impression: patient initially placed on amiodarone drip and given digoxin for afib with RVR on admission. Patient currently with normal rate/ sinus rhythm. Patient with reported history of moderate mitral stenosis and mild /moderate aortic stenosis Echocardiogram- moderate concentric LVF. EF 70%. Aortic sclerosis present. 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 [id number]. s/p Zeloda 08/2016. Abdomen/Pelvis CT 10/31/17: Innumerable small sclerotic lesions in the skeleton, most characteristic of sclerotic bony metastatic disease -Dr. Candelario consulted -recent bone scan w/o uptake; reassuring regarding sclerotic lesions -plan for PET as outpatient -Continue heparin, treatment for sepsis (8) Weakness ICD Codes: R53.1 - Weakness Status: Acute Plan: -PT consulted -Planned discharge to SNF; OT recommended -ST- signed off -OT- recommend rehab (9) Diabetes mellitus, type II ICD Codes: E11.9 - Type 2 diabetes mellitus Status: Chronic Plan: Impression: On home Lantus 10 U HS. Borderline low blood glucose prior to administration 11/19; suspect lower glucose values due to less oral intake -Low dose SSI -Continue to monitor blood sugar -Will reduce Levemir to 6 U HS (10) UTI (urinary tract infection) ICD Codes: N39.0 - Urinary tract infection, site not specified Status: Resolved Plan: Impression: UA with large leukocyte esterase, innumerable WBCs, many WBC clumps Urine culture and blood cultures 10/31 with pansensitive E Coli -Management as above for sepsis (11) Hypothyroidism ICD Codes: E03.9 - Hypothyroidism Status: Chronic Plan: Continue home Levothyroxine (12) Positive JELANI (antinuclear antibody) ICD Codes: R76.8 - Other specified abnormal immunological findings in serum Plan: JELANI 1: 1280. has speckled pattern and markedly positive. unclear at this point what the significance is. Subsequent rheumatologic labs w/o abnormalities. (13) Skin tear Status: Acute Plan: Impression: Buttock skin tears associated with frequent diarrhea -Wound care consulted -cleanse with Remedy barrier wipes to remove stool -Apply Calazime skin protectant past to bilateral buttocks in thick layer BID -Turn patient q2hrs and as needed to offload -Use Ultrasorb pad; do not use cloth pads (14) Altered mental state ICD Codes: R41.82 - Altered mental status, unspecified Status: Resolved Plan: 11/20- No mental status concerns Impression: Persistent lack of orientation after extubation 11/05. No focal deficits. History of TIA. Suspect multifactorial. off of sedation since extubation. Suspect possible hepatic encephalopathy as component plus may have been uremic Imaging: CT head 10/31 on admission (ordered due to confusion on admission; suspected secondary to sepsis) w/o acute findings. Remote lacunar infarct in right frontal white matter Repeat head CT 11/06 without acute intracranial abnormality MRI brain 11/08- chronic changes with some periventricular small vessel ischemic demyelination and old lacunar infarct at junction of R coronal radiata and centrum semiovale MRI brain 11/10- stable exam EEG 11/11- moderate encephalopathy with triphasic waveforms; possible she could have nonconvulsive seizures EEG 11/15- moderate encephalopathy; no focal abnormality. No seizure activity seen Labs: Leukocytosis. Some hypocalcemia. Normal sodium. Ammonia 76 11/06 -> 39 (11/08) -> 33 11/10-> 38 11/15 -> 24 (11/17) LFT elevations- 11/02-11/08- (TBILI mild elevation, mild AST and ALT elevations normal ALKP); subsequently normal values with exception of mild Alk P elevation ABG 11/07- pH 7.34, CO2 37, HCO3 20 -Neurology consulted-appreciate recs -Likely metabolic encephalopathy -Antibiotic therapy changed to Zosyn to avoid possible encephalopathy from Cefepime -Discontinued IV Cerebrex since no seizures on last EEG -Hyperammonemia -Hold Lactulose BID (loose stool from Cdiff) -Hold rifaximin 550mg BID (loose stool from Cdiff) -Monitor ammonia periodically -Supportive care; monitor labs (15) Pain in left foot ICD Codes: M79.672 - Pain in left foot Status: Acute Plan: Impression: Worsening left foot pain on dorsum of foot in association with raised erythema and Associated with some bilateral. LE swelling. High JELANI but does not appear joint related. Suspect erythema nodosum -Will try Prednisone 40mg daily and monitor (16) FEN/PPX Plan: Fluid: Will continue mild IVF Electrolytes: Continue to monitor; replacement per protocol Nutrition: normal diet DVT PPX: Xarelto 20mg daily (Oscar Santos MD R3) Problem Qualifiers (1) Sepsis: Qualified Codes: A41.9 - Sepsis, unspecified organism (2) Hypertension: Qualified Codes: I10 - Essential (primary) hypertension (3) Atrial fibrillation: Qualified Codes: I48.2 - Chronic atrial fibrillation (4) Diabetes mellitus, type II: Qualified Codes: E11.8 - Type 2 diabetes mellitus with unspecified complications (5) UTI (urinary tract infection): (6) Hypothyroidism: Qualified Codes: E03.9 - Hypothyroidism, unspecified Oscar Santos MD R3 November 20, 2017 12:06 Jefferson Ambrosio MD November 20, 2017 14:59
[2017-11-20] MEDS: predniSONE 20 MG TAB PO SCH (13:02)
[2017-11-20] MEDS ORDERED: GABAPENTIN 300 MG CAP PO PRN (16:30)
[2017-11-20] MEDS: LACTOBACILLUS ACIDOPHILUS TAB PO SCH (20:27)
[2017-11-20] MEDS ORDERED: amLODIPine BESYLATE 5 MG TAB PO SCH (21:00)
[2017-11-20] MEDS: TEMAZEPAM 7.5 MG CAP PO PRN (22:20)
[2017-11-21] VITALS: BP 139/77; PULSE 74; RESP 18; TEMP 98.1; O2SAT 94
[2017-11-21] MEDS: LEVOTHYROXINE SODIUM 50 MCG TAB PO SCH (05:45)
[2017-11-21] MEDS: METOPROLOL TARTRATE 25 MG TAB PO SCH ×3 (05:45→21:35)
[2017-11-21] MEDS: VANCOMYCIN 500 MG VIAL (FOR ORAL USE ONLY) PO SCH ×4 (05:46→21:36)
[2017-11-21] MEDS: NS + KCL 20 MEQ INJ 1,000 ML IV SCH (05:49)
[2017-11-21 06:23] LABS: AUTOMATED NEUTROPHIL # 3.1 TH/MM3 (1.8-7.7); BASOPHIL % 0.6 % (0.0-2.0); EOSINOPHIL % 0.1 % (0.0-4.0); HEMATOCRIT 27.8 % (35.0-46.0); HEMOGLOBIN 9.1 GM/DL (11.6-15.3); LYMPH % 11.9 % (9.0-44.0); LYMPHOCYTE # 0.5 TH/MM3 (1.0-4.8); MEAN CELL VOLUME 85.3 FL (80.0-100.0); MEAN CORPUSCULAR HEMOGLOBIN 27.8 PG (27.0-34.0); MEAN CORPUSCULAR HGB CONC 32.7 % (32.0-36.0); MEAN PLATELET VOLUME 8.8 FL (7.0-11.0); MONO % 10.1 % (0.0-8.0); MONOCYTE # 0.4 TH/MM3 (0-0.9); NEUT % 77.3 % (16.0-70.0); PLATELET COUNT 228 TH/MM3 (150-450); RED BLOOD COUNT 3.25 MIL/MM3 (4.00-5.30); RED CELL DISTRIBUTION WIDTH 21.7 % (11.6-17.2)
[2017-11-21 06:39] LABS: BICARBONATE 22.6 MEQ/L (21.0-32.0); CREATININE 0.75 MG/DL (0.50-1.00)
[2017-11-21] MEDS: SODIUM CHLORIDE 0.9% FLUSH 10 ML FLUSH IV FLUSH SCH ×2 (07:41→21:36)
[2017-11-21 08:00] VITALS: BP 152/89; PULSE 70; RESP 18; TEMP 97.8; O2SAT 94
--- NOTE | 2017-11-21 09:16 | HHI.FPPN ---
Subjective Remarks Mrs. Marroquin was afebrile with stable vital signs overnight; mild HTN. Patient had rectal tube removed overnight. Patient has continued right foot pain. Per discussion with patient's and nursing staff, patient refused physical therapy yesterday due to the presence of persistent foot pain. Patient otherwise does not report pain or other symptoms. Objective Vitals Vital Signs Date Time Temp Pulse Resp B/P (MAP) Pulse Ox O2 Delivery O2 Flow Rate FiO2 11/21/17 08:00 97.8 70 18 152/89 (110) 94 11/21/17 00:00 98.1 74 18 139/77 (97) 94 11/20/17 20:00 97.6 72 20 168/90 (116) 94 11/20/17 16:00 97.7 67 16 150/78 (102) 93 11/20/17 12:00 96.5 63 17 163/77 (105) 96 I/O 11/20/17 11/20/17 11/20/17 11/21/17 11/21/17 11/21/17 07:00 15:00 23:00 07:00 15:00 23:00 Intake Total 1240 ml 500 ml 240 ml Output Total 1800 ml 900 ml 1450 ml Balance -560 ml -400 ml -1210 ml Intake Oral 240 ml 500 ml 240 ml IV Total 1000 ml Output Urine Total 1800 ml 900 ml 1450 ml # Bowel Movements 0 Result Diagram: 11/21/17 0530 11/21/17 0530 Imaging Last Impressions Chest X-Ray 11/15/17 0000 Signed Impressions: CONCLUSION: No significant interval change Brain MRI 11/10/17 0000 Signed Impressions: Service Date/Time: Friday, November 10, 2017 14:00 - CONCLUSION: 1. Stable examination. Specifically, no acute infarction, hemorrhage or mass. 2. Senescent changes with periventricular white matter ischemic demyelination and focal lacunar type infarct in the right centrum semiovale. César Coats MD Liver Ultrasound 11/07/17 0000 Signed Impressions: Service Date/Time: October 08:05 - CONCLUSION: 1. Heterogeneous liver suggestive of hepatocellular disease such as cirrhosis. There is a small amount of ascites surrounding the liver. This is not significantly changed compared to the recent CT scan of the abdomen. 2. Sludge in the gallbladder. No definite gallstones or biliary tract obstruction. 3. Mild splenomegaly. 4. Mild hydronephrosis of the right collecting system. Markie Crabtree MD Head CT 11/06/17 0000 Signed Impressions: Service Date/Time: Monday, November 06, 2017 10:03 - CONCLUSION: 1. No acute intracranial abnormality or significant interval change. César Coats MD Abdomen X-Ray 11/04/17 0000 Signed Impressions: Service Date/Time: Saturday, November 04, 2017 17:50 - CONCLUSION: Nonspecific intestinal gas pattern Jose Wright MD Abdomen/Pelvis CT 10/31/17 1321 Signed Impressions: Service Date/Time: October 13:58 - CONCLUSION: 1. Development of innumerable small sclerotic lesions in the skeleton most characteristic of sclerotic bony metastatic disease. There is a reported history of malignancy. 2. Hepatomegaly with development of mild ascites. 3. Persistent moderate hydronephrosis with perinephric stranding similar to February 2017. Interval development of mild anasarca. 4. Gallbladder sludge. Gallo catheter in bladder. Samuel Lin MD Lung Scan-V Nuclear Medicine 10/31/17 0000 Signed Impressions: Service Date/Time: October 15:00 - CONCLUSION: Low probability scan for pulmonary embolism Jose Wright MD Objective Remarks GENERAL: No acute distress Eyes: EOM grossly intact. Skin: Right foot with minimal remdness; looks less erythematous than yesterday and not warm to touch. Painful to light touch on dorsum of foot; suggestive of neuropathic etiology. Patient also has persistent pain in bilateral lower extremities in edematous areas. Buttock skin tears not visualized CARDIOVASCULAR: normal rate; 3/6 murmur. Normal distal LE perfusion bilaterally RESPIRATORY: Normal rate. CTAB; no congestion or wheezing to auscultation GASTROINTESTINAL: Abdomen soft, distended. Normal bowel sounds. MUSCULOSKELETAL: No calf asymmetry or pain to palpation. Bilateral 2+ LE edema to knees; increased from prior exam NEUROLOGICAL: No cranial nerve or peripheral motor/sensory deficits A/P Assessment and Plan Patient is a 72-year-old admitted due to septic shock from urinary source; patient also with sclerotic bony lesions concerning for colon cancer metastasis. Due to respiratory decline/multiorgan failure, patient on ventilator 11/02. Critical care, Nephrology, and infectious disease consulted. Patient extubated ; has had altered mental status since extubation. Patient since has improved in terms of her mental status. Patient developed Cdiff is being treated with oral Vancomycin. She is improving currently and receiving PT and OT Discharge Planning Patient safe for discharge to SNF after improving LE pain which is limiting participation in PT; patient prefers home health Problem List: (1) Sepsis ICD Codes: A41.9 - Sepsis, unspecified organism Status: Resolved Plan: Impression: Septic shock on admission; labs suggestive of multiorgan dysfunction. Patient initially required >4 L crystalloids and was placed on pressors. E coli from urinary source. Patient developed respiratory failure and required intubation; possible concern for aspiration also. Subsequently, patient found to have C diff colitis Labs: Cr: 2.10 (10/31) -> 0.61 (11/18) WBC: 15.8 (10/31) -> 6.7 (11/18) Lactic acid: 3 (10/31) -> 3.3 (11/02) -Continue antibiotic therapy -Infectious disease consulted -Continue Vancomycin 125mg PO q 6hrs (11/10-) -Monitor cultures, temps -Continue to monitor CBC, BMP, urine output Antibiotic history: s/p Meropenem 2gm q12hrs IV -s/p Zosyn 2.5mg q6hrs (10/31-11/02) -s/p Tobramycin IV x1 11/02 -s/p Rocephin 11/03-11/06 -s/p Cefepime 2gm IV BID -s/p Levofloxacin 11/10 -s/p Fluconazole 100mg daily (11/14-11/20) -s/p Zosyn (11/10- 11/18) Cultures: -Urine culture 11/12- Debra Glabrata -11/10- C diff PCR + 11/05 -Sputum culture negative x48hrs 11/02- blood x2- negative x5 days 10/31- blood x2 taylor sensitive E Coli 10/31- urine- taylor sensitive E coli (2) Hypertension ICD Codes: I10 - Essential (primary) hypertension Status: Chronic Plan: 11/21: Mild HTN overnight. Increased LE swelling. Impression: PMH HTN. Initial hypotension on admission w/ septic shock. Now intermittent hypertension based on agitation/sedation -Continue to monitor -Continue Metoprolol 25mg q8 hrs -Clonidine 0.1mg PRN q6hrs BP 180/100 -Vasotec 1.25mg q8hrs PRN BP >160/90 -Due to increased LE swelling, will change Amlodipine 5 to HCTZ 25mg (3) Clostridium difficile infection ICD Codes: B96.89 - Other specified bacterial agents as the cause of diseases classified elsewhere Status: Acute Plan: Impression: Diarrhea; C diff toxin PCR + -Continue oral vancomycin 125mg q6hrs PO (4) ASH (acute kidney injury) ICD Codes: N17.9 - Acute kidney failure, unspecified Status: Resolved Plan: Impression: renal injury presumed secondary to septic shock/multiorgan dysfunction Cr- 2.12 on admission-> 2.59 (11/02) -> 3.53 (11/04) -> downtrended to WNL Nephrology and Urology previously consulted; subsequently signed off CT abdomen/pelvis- moderate hydronephrosis w/ perinephric stranding similar to . Interval development of mild anasarca. F/U US with continued mild hydronephrosis 11/07 -Continue to monitor (5) Elevated LFTs ICD Codes: R79.89 - Other specified abnormal findings of blood chemistry Status: Resolved Plan: Impression: Patient with normal LFT's on admission-> mild transaminase elevations: (11/02- TBILI 1.7, AST 122, ALT 62, ALKP 54 -> 11/07- TBILI 1.4, AST 77, ALT 122, ALKP65) Suspect likely related to sepsis/organ injury Labs: Ceruloplasmin 37, [id number] 225, Hep panel negative JELANI+; titer >1:1280; speckled pattern Liver US per CC- heterogenous liver suggestive of hepatocellular disease such as cirrhosis. Small ascites; not recently changed since last CT. Sludge in gallbladder; no definite gallstones. Mild splenomegaly. Mild hydronephrosis Ceftriaxone stopped per ID Gastroenterology consulted; signed off after improvement Stopped lactulose and Rifaximin dose due to current diarrhea (6) Atrial fibrillation ICD Codes: I48.91 - Unspecified atrial fibrillation Status: Chronic Plan: Impression: patient initially placed on amiodarone drip and given digoxin for afib with RVR on admission. Patient currently with normal rate/ sinus rhythm. Patient with reported history of moderate mitral stenosis and mild /moderate aortic stenosis Echocardiogram- moderate concentric LVF. EF 70%. Aortic sclerosis present. 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 [id number]. s/p Zeloda 08/2016. Abdomen/Pelvis CT 10/31/17: Innumerable small sclerotic lesions in the skeleton, most characteristic of sclerotic bony metastatic disease -Dr. Candelario consulted -recent bone scan w/o uptake; reassuring regarding sclerotic lesions -plan for PET as outpatient -Continue heparin, treatment for sepsis (8) Weakness ICD Codes: R53.1 - Weakness Status: Acute Plan: -PT consulted -Planned discharge to SNF; OT recommended -ST- signed off -OT- recommend rehab (9) Diabetes mellitus, type II ICD Codes: E11.9 - Type 2 diabetes mellitus Status: Chronic Plan: Impression: On home Lantus 10 U HS. Borderline low blood glucose prior to administration 11/19; suspect lower glucose values due to less oral intake -Low dose SSI -Continue to monitor blood sugar -Will reduce Levemir to 6 U HS (10) UTI (urinary tract infection) ICD Codes: N39.0 - Urinary tract infection, site not specified Status: Resolved Plan: Impression: UA with large leukocyte esterase, innumerable WBCs, many WBC clumps Urine culture and blood cultures 10/31 with pansensitive E Coli -Management as above for sepsis (11) Hypothyroidism ICD Codes: E03.9 - Hypothyroidism Status: Chronic Plan: Continue home Levothyroxine (12) Positive JELANI (antinuclear antibody) ICD Codes: R76.8 - Other specified abnormal immunological findings in serum Plan: JELANI 1: 1280. has speckled pattern and markedly positive. unclear at this point what the significance is. Subsequent rheumatologic labs w/o abnormalities. (13) Skin tear Status: Acute Plan: Impression: Buttock skin tears associated with frequent diarrhea -Wound care consulted -cleanse with Remedy barrier wipes to remove stool -Apply Calazime skin protectant past to bilateral buttocks in thick layer BID -Turn patient q2hrs and as needed to offload -Use Ultrasorb pad; do not use cloth pads (14) Altered mental state ICD Codes: R41.82 - Altered mental status, unspecified Status: Resolved Plan: 11/20- No mental status concerns Impression: Persistent lack of orientation after extubation 11/05. No focal deficits. History of TIA. Suspect multifactorial. off of sedation since extubation. Suspect possible hepatic encephalopathy as component plus may have been uremic Imaging: CT head 10/31 on admission (ordered due to confusion on admission; suspected secondary to sepsis) w/o acute findings. Remote lacunar infarct in right frontal white matter Repeat head CT 11/06 without acute intracranial abnormality MRI brain 11/08- chronic changes with some periventricular small vessel ischemic demyelination and old lacunar infarct at junction of R coronal radiata and centrum semiovale MRI brain 11/10- stable exam EEG 11/11- moderate encephalopathy with triphasic waveforms; possible she could have nonconvulsive seizures EEG 11/15- moderate encephalopathy; no focal abnormality. No seizure activity seen Labs: Leukocytosis. Some hypocalcemia. Normal sodium. Ammonia 76 11/06 -> 39 (11/08) -> 33 11/10-> 38 11/15 -> 24 (11/17) LFT elevations- 11/02-11/08- (TBILI mild elevation, mild AST and ALT elevations normal ALKP); subsequently normal values with exception of mild Alk P elevation ABG 11/07- pH 7.34, CO2 37, HCO3 20 -Neurology consulted-appreciate recs -Likely metabolic encephalopathy -Antibiotic therapy changed to Zosyn to avoid possible encephalopathy from Cefepime -Discontinued IV Cerebrex since no seizures on last EEG -Hyperammonemia -Hold Lactulose BID (loose stool from Cdiff) -Hold rifaximin 550mg BID (loose stool from Cdiff) -Monitor ammonia periodically -Supportive care; monitor labs (15) Pain in left foot ICD Codes: M79.672 - Pain in left foot Status: Acute Plan: Impression: Worsening left foot pain on dorsum of foot; suspect some neurologic component. Also, some erythema 11/20; erythema nodosum initially suspected. Associated with some bilateral LE swelling. High JELANI but does not appear joint related -Will try Prednisone 40mg daily for possible erythema nodosum -Will schedule Gabapentin 300mg TID as nature of pain seems neuropathic -WIll continue to monitor as etiology unclear (16) FEN/PPX Plan: Fluid: Will continue mild IVF Electrolytes: Continue to monitor; replacement per protocol Nutrition: normal diet DVT PPX: Xarelto 20mg daily Problem Qualifiers (1) Sepsis: Qualified Codes: A41.9 - Sepsis, unspecified organism (2) Hypertension: Qualified Codes: I10 - Essential (primary) hypertension (3) Atrial fibrillation: Qualified Codes: I48.2 - Chronic atrial fibrillation (4) Diabetes mellitus, type II: Qualified Codes: E11.8 - Type 2 diabetes mellitus with unspecified complications (5) UTI (urinary tract infection): (6) Hypothyroidism: Qualified Codes: E03.9 - Hypothyroidism, unspecified Oscar Santos MD R3 November 21, 2017 09:16
[2017-11-21] MEDS: INSULIN ASPART SUPPLEMENTAL SCALE SQ SCH ×4 (09:32→21:38)
[2017-11-21] MEDS: VENLAFAXINE HCL XR 75 MG CAP PO SCH (09:44)
[2017-11-21] MEDS: RIVAROXABAN 20 MG TAB PO SCH (09:45)
[2017-11-21] MEDS: predniSONE 20 MG TAB PO SCH (09:45)
[2017-11-21] MEDS: AMIODARONE 200 MG TAB PO SCH (09:48)
[2017-11-21] MEDS: LACTOBACILLUS ACIDOPHILUS TAB PO SCH ×2 (09:53→21:35)
[2017-11-21] MEDS: HYDROCHLOROTHIAZIDE 25 MG TAB PO SCH (10:15)
[2017-11-21 12:00] VITALS: BP 170/77; PULSE 72; RESP 16; TEMP 97.2; O2SAT 94
[2017-11-21 16:00] VITALS: BP 161/72; PULSE 78; RESP 17; TEMP 97.9; O2SAT 95
[2017-11-21] MEDS: GABAPENTIN 300 MG CAP PO SCH ×2 (16:03→21:35)
[2017-11-21 20:00] VITALS: BP 188/87; PULSE 77; RESP 18; O2SAT 96
[2017-11-21] MEDS: INSULIN DETEMIR 100 UNITS/ML VIAL SQ SCH (21:00)
[2017-11-21] MEDS: ACETAMINOPHEN 325 MG TAB PO PRN (23:29)
[2017-11-21] MEDS: TEMAZEPAM 7.5 MG CAP PO PRN (23:45)
[2017-11-22] VITALS: BP 162/89; PULSE 76; RESP 18; TEMP 97.3; O2SAT 93
[2017-11-22] MEDS: MELATONIN 5 MG TAB PO PRN (02:46)
[2017-11-22] MEDS: ACETAMINOPHEN/HYDROcodone 325 MG/5 MG TAB PO PRN (02:47)
[2017-11-22] MEDS: VANCOMYCIN 500 MG VIAL (FOR ORAL USE ONLY) PO SCH ×4 (04:50→21:57)
[2017-11-22 05:27] LABS: AUTOMATED NEUTROPHIL # 4.1 TH/MM3 (1.8-7.7); BASOPHIL % 0.4 % (0.0-2.0); EOSINOPHIL % 0.1 % (0.0-4.0); HEMATOCRIT 28.9 % (35.0-46.0); HEMOGLOBIN 9.3 GM/DL (11.6-15.3); LYMPH % 13.8 % (9.0-44.0); LYMPHOCYTE # 0.7 TH/MM3 (1.0-4.8); MEAN CELL VOLUME 86.1 FL (80.0-100.0); MEAN CORPUSCULAR HEMOGLOBIN 27.7 PG (27.0-34.0); MEAN CORPUSCULAR HGB CONC 32.2 % (32.0-36.0); MEAN PLATELET VOLUME 8.7 FL (7.0-11.0); MONOCYTE # 0.5 TH/MM3 (0-0.9); NEUT % 75.7 % (16.0-70.0); PLATELET COUNT 260 TH/MM3 (150-450); RED BLOOD COUNT 3.35 MIL/MM3 (4.00-5.30); RED CELL DISTRIBUTION WIDTH 22.6 % (11.6-17.2); WHITE BLOOD COUNT 5.4 TH/MM3 (4.0-11.0)
[2017-11-22 06:02] LABS: BICARBONATE 22.7 MEQ/L (21.0-32.0); CALCIUM 8.3 MG/DL (8.5-10.1); CREATININE 0.89 MG/DL (0.50-1.00)
[2017-11-22] MEDS: GABAPENTIN 300 MG CAP PO SCH (06:38)
[2017-11-22] MEDS: LEVOTHYROXINE SODIUM 50 MCG TAB PO SCH (06:38)
[2017-11-22] MEDS: METOPROLOL TARTRATE 25 MG TAB PO SCH ×3 (06:38→21:56)
[2017-11-22 08:00] VITALS: BP 173/84; PULSE 66; RESP 18; TEMP 97.7; O2SAT 94
[2017-11-22] MEDS: INSULIN ASPART SUPPLEMENTAL SCALE SQ SCH ×4 (08:44→21:55)
[2017-11-22] MEDS: LACTOBACILLUS ACIDOPHILUS TAB PO SCH ×2 (08:45→21:56)
[2017-11-22] MEDS: AMIODARONE 200 MG TAB PO SCH (08:45)
[2017-11-22] MEDS: VENLAFAXINE HCL XR 75 MG CAP PO SCH (08:45)
[2017-11-22] MEDS: predniSONE 20 MG TAB PO SCH (08:45)
[2017-11-22] MEDS: RIVAROXABAN 20 MG TAB PO SCH (08:46)
[2017-11-22] MEDS: HYDROCHLOROTHIAZIDE 25 MG TAB PO SCH (08:46)
[2017-11-22] MEDS: SODIUM CHLORIDE 0.9% FLUSH 10 ML FLUSH IV FLUSH SCH ×2 (09:00→21:57)
[2017-11-22 12:00] VITALS: BP 172/96; PULSE 62; RESP 19; TEMP 97.5; O2SAT 96
--- NOTE | 2017-11-22 12:03 | HHI.FPPN ---
Subjective Remarks Mrs. Marroquin was afebrile with persistent HTN overnight; SBP 160's-180's. Patient reports continued left foot pain which is painful to touch at dorsum of foot. Patient has not yet worked with PT today. Patient reports that her breathing is better in certain positions. No cough. No chest pain or diaphoresis. No recent urine or stool changes reported. Discussed plans following hospitalization; patient reports agreement in being in a fpc facility until her family arrives to help her at home. (Oscar Santos MD R3) Objective Vitals Vital Signs Date Time Temp Pulse Resp B/P (MAP) Pulse Ox O2 Delivery O2 Flow Rate FiO2 11/22/17 08:00 97.7 66 18 173/84 (113) 94 11/22/17 03:47 18 11/22/17 00:29 18 11/22/17 00:00 97.3 76 18 162/89 (113) 93 11/21/17 20:00 77 18 188/87 (120) 96 11/21/17 16:00 97.9 78 17 161/72 (101) 95 11/21/17 12:00 97.2 72 16 170/77 (108) 94 I/O 11/21/17 11/21/17 11/21/17 11/22/17 11/22/17 11/22/17 07:00 15:00 23:00 07:00 15:00 23:00 Intake Total 240 ml 1340 ml Output Total 1450 ml 1600 ml 2000 ml Balance -1210 ml -260 ml -2000 ml Intake Oral 240 ml 500 ml IV Total 840 ml Output Urine Total 1450 ml 1600 ml 2000 ml # Voids 2 # Bowel Movements 0 1 1 (Oscar Santos MD R3) Result Diagram: 11/22/17 0455 11/22/17 0455 Imaging Last Impressions Chest X-Ray 11/15/17 0000 Signed Impressions: CONCLUSION: No significant interval change Brain MRI 11/10/17 0000 Signed Impressions: Service Date/Time: Friday, November 10, 2017 14:00 - CONCLUSION: 1. Stable examination. Specifically, no acute infarction, hemorrhage or mass. 2. Senescent changes with periventricular white matter ischemic demyelination and focal lacunar type infarct in the right centrum semiovale. César Coats MD Liver Ultrasound 11/07/17 0000 Signed Impressions: Service Date/Time: October 08:05 - CONCLUSION: 1. Heterogeneous liver suggestive of hepatocellular disease such as cirrhosis. There is a small amount of ascites surrounding the liver. This is not significantly changed compared to the recent CT scan of the abdomen. 2. Sludge in the gallbladder. No definite gallstones or biliary tract obstruction. 3. Mild splenomegaly. 4. Mild hydronephrosis of the right collecting system. Markie Crabtree MD Head CT 11/06/17 0000 Signed Impressions: Service Date/Time: Monday, November 06, 2017 10:03 - CONCLUSION: 1. No acute intracranial abnormality or significant interval change. César Coats MD Abdomen X-Ray 11/04/17 0000 Signed Impressions: Service Date/Time: Saturday, November 04, 2017 17:50 - CONCLUSION: Nonspecific intestinal gas pattern Jose Wright MD Abdomen/Pelvis CT 10/31/17 1321 Signed Impressions: Service Date/Time: October 13:58 - CONCLUSION: 1. Development of innumerable small sclerotic lesions in the skeleton most characteristic of sclerotic bony metastatic disease. There is a reported history of malignancy. 2. Hepatomegaly with development of mild ascites. 3. Persistent moderate hydronephrosis with perinephric stranding similar to February 2017. Interval development of mild anasarca. 4. Gallbladder sludge. Gallo catheter in bladder. Samuel Lin MD Lung Scan- Nuclear Medicine 10/31/17 0000 Signed Impressions: Service Date/Time: October 15:00 - CONCLUSION: Low probability scan for pulmonary embolism Jose Wright MD Objective Remarks GENERAL: No acute distress Eyes: EOM grossly intact. Skin: Right foot without erythema or warmth to touch. Painful to light touch on dorsum of foot; suggestive of neuropathic etiology. Buttock skin tears not visualized CARDIOVASCULAR: normal rate; 3/6 murmur. Normal distal LE perfusion bilaterally RESPIRATORY: Normal rate. CTAB; no congestion or wheezing to auscultation GASTROINTESTINAL: Abdomen soft, distended. Normal bowel sounds. MUSCULOSKELETAL: No calf asymmetry or pain to palpation. Bilateral 2+ LE edema to knees; stable with prior exam NEUROLOGICAL: No cranial nerve or peripheral motor/sensory deficits (Oscar Santos MD R3) A/P Assessment and Plan Patient is a 72-year-old admitted due to septic shock from urinary source; patient also with sclerotic bony lesions concerning for colon cancer metastasis. Due to respiratory decline/multiorgan failure, patient on ventilator 11/02. Critical care, Nephrology, and infectious disease consulted. Patient extubated ; has had altered mental status since extubation. Patient since has improved in terms of her mental status. Patient developed Cdiff is being treated with oral Vancomycin. She is improving currently and receiving PT and OT Discharge Planning Anticipate discharge to SNF in several days (Oscar Santos MD R3) Attending Attestation Pt. examined independently and case discussed with resident physicians I have read the above note and agree with the assessment/plan as discussed with me I was involved in all medical decision making for this patient Markie Shore MD (Markie Shore MD) Problem List: (1) Weakness ICD Codes: R53.1 - Weakness Status: Acute Plan: -PT consulted -Planned discharge to SNF; OT recommended -ST- signed off -OT- recommend rehab (2) Sepsis ICD Codes: A41.9 - Sepsis, unspecified organism Status: Resolved Plan: Impression: Septic shock on admission; labs suggestive of multiorgan dysfunction. Patient initially required >4 L crystalloids and was placed on pressors. E coli from urinary source. Patient developed respiratory failure and required intubation; possible concern for aspiration also. Subsequently, patient found to have C diff colitis Labs: Cr: 2.10 (10/31) -> 0.61 (11/18) WBC: 15.8 (10/31) -> 6.7 (11/18) Lactic acid: 3 (10/31) -> 3.3 (11/02) -Continue antibiotic therapy -Infectious disease consulted -Continue Vancomycin 125mg PO q 6hrs (11/10-) -Monitor cultures, temps -Continue to monitor CBC, BMP, urine output Antibiotic history: s/p Meropenem 2gm q12hrs IV -s/p Zosyn 2.5mg q6hrs (10/31-11/02) -s/p Tobramycin IV x1 11/02 -s/p Rocephin 11/03-11/06 -s/p Cefepime 2gm IV BID -s/p Levofloxacin 11/10 -s/p Fluconazole 100mg daily (11/14-11/20) -s/p Zosyn (11/10- 11/18) Cultures: -Urine culture 11/12- Debra Glabrata -11/10- C diff PCR + 11/05 -Sputum culture negative x48hrs 11/02- blood x2- negative x5 days 10/31- blood x2 taylor sensitive E Coli 10/31- urine- taylor sensitive E coli (3) Clostridium difficile infection ICD Codes: B96.89 - Other specified bacterial agents as the cause of diseases classified elsewhere Status: Acute Plan: Impression: Diarrhea; C diff toxin PCR + -Continue oral vancomycin 125mg q6hrs PO (11/10- 12/03/2017) (4) ASH (acute kidney injury) ICD Codes: N17.9 - Acute kidney failure, unspecified Status: Resolved Plan: Impression: renal injury presumed secondary to septic shock/multiorgan dysfunction Cr- 2.12 on admission-> 2.59 (11/02) -> 3.53 (11/04) -> downtrended to WNL Nephrology and Urology previously consulted; subsequently signed off CT abdomen/pelvis- moderate hydronephrosis w/ perinephric stranding similar to . Interval development of mild anasarca. F/U US with continued mild hydronephrosis 11/07 -Continue to monitor (5) Hypertension ICD Codes: I10 - Essential (primary) hypertension Status: Chronic Plan: 11/22: Persistent HTN overnight. Continued LE swelling. Impression: PMH HTN. Initial hypotension on admission w/ septic shock. Now intermittent hypertension based on agitation/sedation -Continue to monitor -Continue Metoprolol 25mg q8 hrs -Continue HCTZ 25mg daily -Clonidine 0.1mg PRN q6hrs BP 180/100 -Vasotec 1.25mg q8hrs PRN BP >160/90 -Will add Lisinopril 10mg daily (6) Elevated LFTs ICD Codes: R79.89 - Other specified abnormal findings of blood chemistry Status: Resolved Plan: Impression: Patient with normal LFT's on admission-> mild transaminase elevations: (11/02- TBILI 1.7, AST 122, ALT 62, ALKP 54 -> 11/07- TBILI 1.4, AST 77, ALT 122, ALKP65) Suspect likely related to sepsis/organ injury Labs: Ceruloplasmin 37, [id number] 225, Hep panel negative JELANI+; titer >1:1280; speckled pattern Liver US per CC- heterogenous liver suggestive of hepatocellular disease such as cirrhosis. Small ascites; not recently changed since last CT. Sludge in gallbladder; no definite gallstones. Mild splenomegaly. Mild hydronephrosis Ceftriaxone stopped per ID Gastroenterology consulted; signed off after improvement Stopped lactulose and Rifaximin dose due to current diarrhea (7) Atrial fibrillation ICD Codes: I48.91 - Unspecified atrial fibrillation Status: Chronic Plan: Impression: patient initially placed on amiodarone drip and given digoxin for afib with RVR on admission. Patient currently with normal rate/ sinus rhythm. Patient with reported history of moderate mitral stenosis and mild /moderate aortic stenosis Echocardiogram- moderate concentric LVF. EF 70%. Aortic sclerosis present. 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 [id number]. s/p Zeloda 08/2016. Abdomen/Pelvis CT 10/31/17: Innumerable small sclerotic lesions in the skeleton, most characteristic of sclerotic bony metastatic disease -Dr. Candelario consulted -recent bone scan w/o uptake; reassuring regarding sclerotic lesions -plan for PET as outpatient -Continue heparin, treatment for sepsis (9) Diabetes mellitus, type II ICD Codes: E11.9 - Type 2 diabetes mellitus Status: Chronic Plan: Impression: On home Lantus 10 U HS. Borderline low blood glucose prior to administration 11/19; suspect lower glucose values due to less oral intake -Low dose SSI -Continue to monitor blood sugar -Continue Levemir 6 U HS (10) UTI (urinary tract infection) ICD Codes: N39.0 - Urinary tract infection, site not specified Status: Resolved Plan: Impression: UA with large leukocyte esterase, innumerable WBCs, many WBC clumps Urine culture and blood cultures 10/31 with pansensitive E Coli -Management as above for sepsis (11) Hypothyroidism ICD Codes: E03.9 - Hypothyroidism Status: Chronic Plan: Continue home Levothyroxine (12) Positive JELANI (antinuclear antibody) ICD Codes: R76.8 - Other specified abnormal immunological findings in serum Plan: JELANI 1: 1280. has speckled pattern and markedly positive. unclear at this point what the significance is. Subsequent rheumatologic labs w/o abnormalities. (13) Skin tear Status: Acute Plan: Impression: Buttock skin tears associated with frequent diarrhea -Wound care consulted -cleanse with Remedy barrier wipes to remove stool -Apply Calazime skin protectant past to bilateral buttocks in thick layer BID -Turn patient q2hrs and as needed to offload -Use Ultrasorb pad; do not use cloth pads (14) Pain in left foot ICD Codes: M79.672 - Pain in left foot Status: Acute Plan: Impression: Worsening left foot pain on dorsum of foot; suspect some neurologic component. Also, some erythema 11/20; erythema nodosum initially suspected. Associated with some bilateral LE swelling. High JELANI but does not appear joint related -Will continue Prednisone 40mg daily for possible rheumatologic etiology -Will increase Gabapentin to 400mg TID as some of pain seems neuropathic -WIll plan to recommend rheumatolgy f/u at discharge (15) Altered mental state ICD Codes: R41.82 - Altered mental status, unspecified Status: Resolved Plan: 11/20- No mental status concerns Impression: Persistent lack of orientation after extubation 11/05. No focal deficits. History of TIA. Suspect multifactorial. off of sedation since extubation. Suspect possible hepatic encephalopathy as component plus may have been uremic Imaging: CT head 10/31 on admission (ordered due to confusion on admission; suspected secondary to sepsis) w/o acute findings. Remote lacunar infarct in right frontal white matter Repeat head CT 11/06 without acute intracranial abnormality MRI brain 11/08- chronic changes with some periventricular small vessel ischemic demyelination and old lacunar infarct at junction of R coronal radiata and centrum semiovale MRI brain 11/10- stable exam EEG 11/11- moderate encephalopathy with triphasic waveforms; possible she could have nonconvulsive seizures EEG 11/15- moderate encephalopathy; no focal abnormality. No seizure activity seen Labs: Leukocytosis. Some hypocalcemia. Normal sodium. Ammonia 76 11/06 -> 39 (11/08) -> 33 11/10-> 38 11/15 -> 24 (11/17) LFT elevations- 11/02-11/08- (TBILI mild elevation, mild AST and ALT elevations normal ALKP); subsequently normal values with exception of mild Alk P elevation ABG 11/07- pH 7.34, CO2 37, HCO3 20 -Neurology consulted-appreciate recs -Likely metabolic encephalopathy -Antibiotic therapy changed to Zosyn to avoid possible encephalopathy from Cefepime -Discontinued IV Cerebrex since no seizures on last EEG -Hyperammonemia -Hold Lactulose BID (loose stool from Cdiff) -Hold rifaximin 550mg BID (loose stool from Cdiff) -Monitor ammonia periodically -Supportive care; monitor labs (16) FEN/PPX Plan: Fluid: None at thsi time Electrolytes: Continue to monitor; replacement per protocol Nutrition: normal diet DVT PPX: Xarelto 20mg daily (Oscar Santos MD R3) Problem Qualifiers (1) Sepsis: Qualified Codes: A41.9 - Sepsis, unspecified organism (2) Hypertension: Qualified Codes: I10 - Essential (primary) hypertension (3) Atrial fibrillation: Qualified Codes: I48.2 - Chronic atrial fibrillation (4) Diabetes mellitus, type II: Qualified Codes: E11.8 - Type 2 diabetes mellitus with unspecified complications (5) UTI (urinary tract infection): (6) Hypothyroidism: Qualified Codes: E03.9 - Hypothyroidism, unspecified Oscar Santos MD R3 Nov 22, 2017 12:03 Markie Shore MD Nov 22, 2017 15:29
[2017-11-22] MEDS: LISINOPRIL 10 MG TAB PO SCH (15:14)
[2017-11-22] MEDS: GABAPENTIN 400 MG CAP PO SCH ×2 (15:14→21:56)
[2017-11-22 16:00] VITALS: BP 158/75; PULSE 80; RESP 18; TEMP 97.5; O2SAT 95
[2017-11-22 20:00] VITALS: BP 171/78; PULSE 68; RESP 20; TEMP 97.8; O2SAT 95
[2017-11-22] MEDS: INSULIN DETEMIR 100 UNITS/ML VIAL SQ SCH (21:56)
[2017-11-23] VITALS: BP 177/89; PULSE 64; RESP 20; TEMP 97.2; O2SAT 95
[2017-11-23 05:48] LABS: AUTOMATED NEUTROPHIL # 4.3 TH/MM3 (1.8-7.7); BASOPHIL % 0.8 % (0.0-2.0); EOSINOPHIL % 0.7 % (0.0-4.0); HEMATOCRIT 31.3 % (35.0-46.0); HEMOGLOBIN 10.1 GM/DL (11.6-15.3); LYMPH % 18.1 % (9.0-44.0); LYMPHOCYTE # 1.1 TH/MM3 (1.0-4.8); MEAN CELL VOLUME 86.1 FL (80.0-100.0); MEAN CORPUSCULAR HEMOGLOBIN 27.9 PG (27.0-34.0); MEAN CORPUSCULAR HGB CONC 32.4 % (32.0-36.0); MONO % 11.8 % (0.0-8.0); MONOCYTE # 0.7 TH/MM3 (0-0.9); NEUT % 68.6 % (16.0-70.0); PLATELET COUNT 259 TH/MM3 (150-450); RED BLOOD COUNT 3.63 MIL/MM3 (4.00-5.30); RED CELL DISTRIBUTION WIDTH 22.2 % (11.6-17.2); WHITE BLOOD COUNT 6.2 TH/MM3 (4.0-11.0)
[2017-11-23 06:04] LABS: BICARBONATE 22.9 MEQ/L (21.0-32.0); CALCIUM 8.3 MG/DL (8.5-10.1); CREATININE 0.97 MG/DL (0.50-1.00)
[2017-11-23] MEDS: VANCOMYCIN 500 MG VIAL (FOR ORAL USE ONLY) PO SCH ×4 (06:13→23:04)
[2017-11-23] MEDS: GABAPENTIN 400 MG CAP PO SCH ×2 (06:13→23:05)
[2017-11-23] MEDS: LEVOTHYROXINE SODIUM 50 MCG TAB PO SCH (06:13)
[2017-11-23] MEDS: METOPROLOL TARTRATE 25 MG TAB PO SCH ×3 (06:13→23:05)
[2017-11-23 08:00] VITALS: BP 172/78; PULSE 66; RESP 18; TEMP 97.7; O2SAT 96
[2017-11-23] MEDS: INSULIN ASPART SUPPLEMENTAL SCALE SQ SCH ×4 (08:00→23:08)
[2017-11-23] MEDS: SODIUM CHLORIDE 0.9% FLUSH 10 ML FLUSH IV FLUSH SCH ×2 (09:12→23:09)
[2017-11-23] MEDS: predniSONE 20 MG TAB PO SCH (09:13)
[2017-11-23] MEDS: AMIODARONE 200 MG TAB PO SCH (09:13)
[2017-11-23] MEDS: LACTOBACILLUS ACIDOPHILUS TAB PO SCH ×2 (09:14→23:05)
[2017-11-23] MEDS: HYDROCHLOROTHIAZIDE 25 MG TAB PO SCH (09:14)
[2017-11-23] MEDS: VENLAFAXINE HCL XR 75 MG CAP PO SCH (09:14)
[2017-11-23] MEDS: RIVAROXABAN 20 MG TAB PO SCH (09:15)
[2017-11-23] MEDS: LISINOPRIL 10 MG TAB PO SCH (09:16)
--- NOTE | 2017-11-23 10:14 | HHI.FPPN ---
Subjective Remarks Mrs. Marroquin was afebrile with HTN overnight (SBP's in 150's-180's). Patient reports continued left foot pain which is worst when pressing on the top of her left foot. Patient also reports having dark urine in drainage container. No chest pain reported. No respiratory concerns. No abdominal pain. Patient and express desire for PT this weekend. They oppose going to a rehabilitation facility, stating she will be adequately cared for at home. (Oscar Santos MD R3) Objective Vitals Vital Signs Date Time Temp Pulse Resp B/P (MAP) Pulse Ox O2 Delivery O2 Flow Rate FiO2 11/23/17 08:00 97.7 66 18 172/78 (109) 96 11/23/17 00:00 97.2 64 20 177/89 (118) 95 11/22/17 20:00 97.8 68 20 171/78 (109) 95 11/22/17 16:00 97.5 80 18 158/75 (102) 95 11/22/17 12:00 97.5 62 19 172/96 (121) 96 I/O 11/22/17 11/22/17 11/22/17 11/23/17 11/23/17 11/23/17 07:00 15:00 23:00 07:00 15:00 23:00 Intake Total 760 ml 360 ml Output Total 2000 ml 2000 ml 950 ml Balance -2000 ml -1240 ml -590 ml Intake Oral 760 ml 360 ml Output Urine Total 2000 ml 2000 ml 950 ml # Bowel Movements 1 0 (Oscar Santos MD R3) Result Diagram: 11/23/17 0516 11/23/17 0516 Imaging Last Impressions Chest X-Ray 11/15/17 0000 Signed Impressions: CONCLUSION: No significant interval change Brain MRI 11/10/17 0000 Signed Impressions: Service Date/Time: Friday, November 10, 2017 14:00 - CONCLUSION: 1. Stable examination. Specifically, no acute infarction, hemorrhage or mass. 2. Senescent changes with periventricular white matter ischemic demyelination and focal lacunar type infarct in the right centrum semiovale. César Coats MD Liver Ultrasound 11/07/17 0000 Signed Impressions: Service Date/Time: October 08:05 - CONCLUSION: 1. Heterogeneous liver suggestive of hepatocellular disease such as cirrhosis. There is a small amount of ascites surrounding the liver. This is not significantly changed compared to the recent CT scan of the abdomen. 2. Sludge in the gallbladder. No definite gallstones or biliary tract obstruction. 3. Mild splenomegaly. 4. Mild hydronephrosis of the right collecting system. Markie Crabtree MD Head CT 11/06/17 0000 Signed Impressions: Service Date/Time: Monday, November 06, 2017 10:03 - CONCLUSION: 1. No acute intracranial abnormality or significant interval change. César Coats MD Abdomen X-Ray 11/04/17 0000 Signed Impressions: Service Date/Time: Saturday, November 04, 2017 17:50 - CONCLUSION: Nonspecific intestinal gas pattern Jose Wright MD Abdomen/Pelvis CT 10/31/17 1321 Signed Impressions: Service Date/Time: October 13:58 - CONCLUSION: 1. Development of innumerable small sclerotic lesions in the skeleton most characteristic of sclerotic bony metastatic disease. There is a reported history of malignancy. 2. Hepatomegaly with development of mild ascites. 3. Persistent moderate hydronephrosis with perinephric stranding similar to February 2017. Interval development of mild anasarca. 4. Gallbladder sludge. Gallo catheter in bladder. Samuel Lin MD Lung Scan- Nuclear Medicine 10/31/17 0000 Signed Impressions: Service Date/Time: October 15:00 - CONCLUSION: Low probability scan for pulmonary embolism Jose Wright MD Objective Remarks GENERAL: No acute distress Eyes: EOM grossly intact. Skin: Right foot without erythema or warmth to touch. Painful to pressure on dorsum of foot. Buttock skin tears not visualized CARDIOVASCULAR: normal rate; 3/6 murmur. Normal distal LE perfusion bilaterally RESPIRATORY: Normal rate. CTAB; no congestion or wheezing to auscultation GASTROINTESTINAL: Abdomen soft, distended. Normal bowel sounds. MUSCULOSKELETAL: No calf asymmetry or pain to palpation. Bilateral LE edema; stable with prior exam NEUROLOGICAL: No cranial nerve or peripheral motor/sensory deficits (Oscar Santos MD R3) A/P Assessment and Plan Patient is a 72-year-old admitted due to septic shock from urinary source; patient also with sclerotic bony lesions concerning for colon cancer metastasis. Due to respiratory decline/multiorgan failure, patient on ventilator 11/02. Critical care, Nephrology, and infectious disease consulted. Patient extubated ; has had altered mental status since extubation. Patient since has improved in terms of her mental status. Patient developed Cdiff is being treated with oral Vancomycin. She is improving currently and receiving PT and OT Discharge Planning Anticipate discharge to SNF in several days (Oscar Santos MD R3) Attending Attestation Pt. examined independently and case discussed with resident physicians. I have read the above note and agree with the assessment and plan as discussed with me. I was involved in all medical decision making for this patient. Markie Shore MD (Markie Shore MD) Problem List: (1) Weakness ICD Codes: R53.1 - Weakness Status: Acute Plan: -PT consulted -Planned discharge to SNF; OT recommended -ST- signed off -OT- recommend rehab (2) Sepsis ICD Codes: A41.9 - Sepsis, unspecified organism Status: Resolved Plan: Impression: Septic shock on admission; labs suggestive of multiorgan dysfunction. Patient initially required >4 L crystalloids and was placed on pressors. E coli from urinary source. Patient developed respiratory failure and required intubation; possible concern for aspiration also. Subsequently, patient found to have C diff colitis Labs: Cr: 2.10 (10/31) -> 0.61 (11/18) WBC: 15.8 (10/31) -> 6.7 (11/18) Lactic acid: 3 (10/31) -> 3.3 (11/02) -Continue antibiotic therapy -Infectious disease consulted -Continue Vancomycin 125mg PO q 6hrs (11/10-) -Monitor cultures, temps -Continue to monitor CBC, BMP, urine output Antibiotic history: s/p Meropenem 2gm q12hrs IV -s/p Zosyn 2.5mg q6hrs (10/31-11/02) -s/p Tobramycin IV x1 11/02 -s/p Rocephin 11/03-11/06 -s/p Cefepime 2gm IV BID -s/p Levofloxacin 11/10 -s/p Fluconazole 100mg daily (11/14-11/20) -s/p Zosyn (11/10- 11/18) Cultures: -Urine culture 11/12- Debra Glabrata -11/10- C diff PCR + 11/05 -Sputum culture negative x48hrs 11/02- blood x2- negative x5 days 10/31- blood x2 taylor sensitive E Coli 10/31- urine- taylor sensitive E coli (3) Clostridium difficile infection ICD Codes: B96.89 - Other specified bacterial agents as the cause of diseases classified elsewhere Status: Acute Plan: Impression: Diarrhea; C diff toxin PCR + -Continue oral vancomycin 125mg q6hrs PO (11/10- 12/03/2017) (4) ASH (acute kidney injury) ICD Codes: N17.9 - Acute kidney failure, unspecified Status: Resolved Plan: Impression: renal injury presumed secondary to septic shock/multiorgan dysfunction Cr- 2.12 on admission-> 2.59 (11/02) -> 3.53 (11/04) -> downtrended to WNL Nephrology and Urology previously consulted; subsequently signed off CT abdomen/pelvis- moderate hydronephrosis w/ perinephric stranding similar to . Interval development of mild anasarca. F/U US with continued mild hydronephrosis 11/07 -Continue to monitor (5) Hypertension ICD Codes: I10 - Essential (primary) hypertension Status: Chronic Plan: 11/22: Persistent HTN overnight. Continued LE swelling. 11/23: Persistent HTN with SBP's in 150's-170's Impression: PMH HTN. Initial hypotension on admission w/ septic shock. Now intermittent hypertension based on agitation/sedation -Continue to monitor -Continue Metoprolol 25mg q8 hrs -Continue HCTZ 25mg daily -Clonidine 0.1mg PRN q6hrs BP 180/100 -Vasotec 1.25mg q8hrs PRN BP >160/90 -Will increase Lisinopril to 20mg daily (6) Elevated LFTs ICD Codes: R79.89 - Other specified abnormal findings of blood chemistry Status: Resolved Plan: Impression: Patient with normal LFT's on admission-> mild transaminase elevations: (11/02- TBILI 1.7, AST 122, ALT 62, ALKP 54 -> 11/07- TBILI 1.4, AST 77, ALT 122, ALKP65) Suspect likely related to sepsis/organ injury Labs: Ceruloplasmin 37, S2Iokagetjmbh 225, Hep panel negative JELANI+; titer >1:1280; speckled pattern Liver US per CC- heterogenous liver suggestive of hepatocellular disease such as cirrhosis. Small ascites; not recently changed since last CT. Sludge in gallbladder; no definite gallstones. Mild splenomegaly. Mild hydronephrosis Ceftriaxone stopped per ID Gastroenterology consulted; signed off after improvement Stopped lactulose and Rifaximin dose due to current diarrhea (7) Atrial fibrillation ICD Codes: I48.91 - Unspecified atrial fibrillation Status: Chronic Plan: Impression: patient initially placed on amiodarone drip and given digoxin for afib with RVR on admission. Patient currently with normal rate/ sinus rhythm. Patient with reported history of moderate mitral stenosis and mild /moderate aortic stenosis Echocardiogram- moderate concentric LVF. EF 70%. Aortic sclerosis present. 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 [id number]. s/p Zeloda 08/2016. Abdomen/Pelvis CT 10/31/17: Innumerable small sclerotic lesions in the skeleton, most characteristic of sclerotic bony metastatic disease -Dr. Candelario consulted -recent bone scan w/o uptake; reassuring regarding sclerotic lesions -plan for PET as outpatient -Continue heparin, treatment for sepsis (9) Diabetes mellitus, type II ICD Codes: E11.9 - Type 2 diabetes mellitus Status: Chronic Plan: Impression: On home Lantus 10 U HS. Borderline low blood glucose prior to administration 11/19; suspect lower glucose values due to less oral intake -Low dose SSI -Continue to monitor blood sugar -Continue Levemir 6 U HS (10) UTI (urinary tract infection) ICD Codes: N39.0 - Urinary tract infection, site not specified Status: Resolved Plan: Impression: UA with large leukocyte esterase, innumerable WBCs, many WBC clumps. . resolvedUrine culture and blood cultures 10/31 with pansensitive E Coli 11/23: Dark urine reported -Will repeat UA as dark urine reported (11) Hypothyroidism ICD Codes: E03.9 - Hypothyroidism Status: Chronic Plan: Continue home Levothyroxine (12) Positive JELANI (antinuclear antibody) ICD Codes: R76.8 - Other specified abnormal immunological findings in serum Plan: JELANI 1: 1280. has speckled pattern and markedly positive. unclear at this point what the significance is. Subsequent rheumatologic labs w/o abnormalities. (13) Pain in left foot ICD Codes: M79.672 - Pain in left foot Status: Acute Plan: Impression: Continued left foot pain on dorsum of foot; suspect some neurologic component. Also, some erythema 11/20; erythema nodosum initially suspected. Associated with some bilateral LE swelling. High JELANI but does not appear joint related -Will continue Prednisone 40mg daily for possible rheumatologic etiology -Will increase Gabapentin to 500mg TID as some of pain seems neuropathic -WIll plan to recommend rheumatolgy f/u at discharge (14) Skin tear Status: Acute Plan: Impression: Buttock skin tears associated with frequent diarrhea -Wound care consulted -cleanse with Remedy barrier wipes to remove stool -Apply Calazime skin protectant past to bilateral buttocks in thick layer BID -Turn patient q2hrs and as needed to offload -Use Ultrasorb pad; do not use cloth pads (15) Altered mental state ICD Codes: R41.82 - Altered mental status, unspecified Status: Resolved Plan: 11/20- No mental status concerns Impression: Persistent lack of orientation after extubation 11/05. No focal deficits. History of TIA. Suspect multifactorial. off of sedation since extubation. Suspect possible hepatic encephalopathy as component plus may have been uremic Imaging: CT head 10/31 on admission (ordered due to confusion on admission; suspected secondary to sepsis) w/o acute findings. Remote lacunar infarct in right frontal white matter Repeat head CT 11/06 without acute intracranial abnormality MRI brain 11/08- chronic changes with some periventricular small vessel ischemic demyelination and old lacunar infarct at junction of R coronal radiata and centrum semiovale MRI brain 11/10- stable exam EEG 11/11- moderate encephalopathy with triphasic waveforms; possible she could have nonconvulsive seizures EEG 11/15- moderate encephalopathy; no focal abnormality. No seizure activity seen Labs: Leukocytosis. Some hypocalcemia. Normal sodium. Ammonia 76 11/06 -> 39 (11/08) -> 33 11/10-> 38 11/15 -> 24 (11/17) LFT elevations- 11/02-11/08- (TBILI mild elevation, mild AST and ALT elevations normal ALKP); subsequently normal values with exception of mild Alk P elevation ABG 11/07- pH 7.34, CO2 37, HCO3 20 -Neurology consulted-appreciate recs -Likely metabolic encephalopathy -Antibiotic therapy changed to Zosyn to avoid possible encephalopathy from Cefepime -Discontinued IV Cerebrex since no seizures on last EEG -Hyperammonemia -Hold Lactulose BID (loose stool from Cdiff) -Hold rifaximin 550mg BID (loose stool from Cdiff) -Monitor ammonia periodically -Supportive care; monitor labs (16) FEN/PPX Plan: Fluid: None at thsi time Electrolytes: Continue to monitor; replacement per protocol Nutrition: normal diet DVT PPX: Xarelto 20mg daily (Oscar Santos MD R3) Problem Qualifiers (1) Sepsis: Qualified Codes: A41.9 - Sepsis, unspecified organism (2) Hypertension: Qualified Codes: I10 - Essential (primary) hypertension (3) Atrial fibrillation: Qualified Codes: I48.2 - Chronic atrial fibrillation (4) Diabetes mellitus, type II: Qualified Codes: E11.8 - Type 2 diabetes mellitus with unspecified complications (5) UTI (urinary tract infection): (6) Hypothyroidism: Qualified Codes: E03.9 - Hypothyroidism, unspecified Oscar Santos MD R3 Nov 23, 2017 10:14 Markie Shore MD Nov 23, 2017 12:17
[2017-11-23 12:00] VITALS: BP 165/80; PULSE 64; RESP 18; TEMP 98; O2SAT 95
[2017-11-23] MEDS ORDERED: GABAPENTIN 400 MG CAP PO SCH (14:00)
[2017-11-23 16:00] VITALS: BP 150/88; PULSE 73; RESP 17; TEMP 97.9; O2SAT 93
[2017-11-23 20:00] VITALS: BP 161/74; PULSE 72; RESP 20; TEMP 97.8; O2SAT 97
[2017-11-23] MEDS: GABAPENTIN 100 MG CAP PO SCH (23:05)
[2017-11-23] MEDS: INSULIN DETEMIR 100 UNITS/ML VIAL SQ SCH (23:07)
[2017-11-23 23:39] LABS: AMORPHOUS SEDIMENT, URINE RARE; BACTERIA, URINE OCC /hpf; BILIRUBIN, URINE NEG (NEG); BLOOD, URINE SMALL (NEG); GLUCOSE,URINE 1000 mg/dL (NEG); KETONE, URINE NEG (NEG); NITRITE,URINE NEG (NEG); URINE COLOR YELLOW (YELLW/STRAW); URINE LEUKOCYTE ESTERASE SMALL (NEG)
[2017-11-24] VITALS: BP 190/88; PULSE 76; RESP 18; O2SAT 99
[2017-11-24] MEDS: ENALAPRILAT 1.25 MG/ML VIAL IV PUSH PRN (00:42)
[2017-11-24] MEDS: TEMAZEPAM 7.5 MG CAP PO PRN ×2 (01:48→23:09)
[2017-11-24 04:00] VITALS: BP 143/63; PULSE 67; RESP 18; TEMP 98.1; O2SAT 99
[2017-11-24] MEDS: METOPROLOL TARTRATE 25 MG TAB PO SCH ×3 (04:58→20:09)
[2017-11-24] MEDS: GABAPENTIN 100 MG CAP PO SCH ×3 (04:58→20:09)
[2017-11-24] MEDS: GABAPENTIN 400 MG CAP PO SCH ×3 (04:58→20:09)
[2017-11-24] MEDS: LEVOTHYROXINE SODIUM 50 MCG TAB PO SCH (04:58)
[2017-11-24] MEDS: VANCOMYCIN 500 MG VIAL (FOR ORAL USE ONLY) PO SCH ×4 (04:59→20:09)
[2017-11-24 06:42] LABS: CALCIUM 8.3 MG/DL (8.5-10.1); CREATININE 0.88 MG/DL (0.50-1.00)
[2017-11-24 08:00] VITALS: BP 169/84; PULSE 68; RESP 18; TEMP 97.4; O2SAT 98
[2017-11-24] MEDS: INSULIN ASPART SUPPLEMENTAL SCALE SQ SCH ×4 (08:00→20:27)
[2017-11-24] MEDS ORDERED: LISINOPRIL 20 MG TAB PO SCH (09:00)
[2017-11-24] MEDS: RIVAROXABAN 20 MG TAB PO SCH (09:47)
[2017-11-24] MEDS: AMIODARONE 200 MG TAB PO SCH (09:47)
[2017-11-24] MEDS: LACTOBACILLUS ACIDOPHILUS TAB PO SCH ×2 (09:47→20:09)
[2017-11-24] MEDS: VENLAFAXINE HCL XR 75 MG CAP PO SCH (09:47)
[2017-11-24] MEDS: predniSONE 20 MG TAB PO SCH (09:47)
[2017-11-24] MEDS: HYDROCHLOROTHIAZIDE 25 MG TAB PO SCH (09:48)
[2017-11-24] MEDS: SODIUM CHLORIDE 0.9% FLUSH 10 ML FLUSH IV FLUSH SCH ×2 (09:48→20:09)
[2017-11-24] MEDS: LISINOPRIL 20 MG TAB PO SCH (09:48)
--- NOTE | 2017-11-24 09:55 | HHI.FPPN ---
Subjective Remarks Mrs. Marroquin was hypertensive overnight (max SBP 190/88); other vital signs stable. Patient with 98% saturation on 2L O2 via NC. Patient previously 93-96% saturation on room air. Patient states that she felt short of breath yesterday with chest tightness but this stopped quickly after starting oxygen. No current shortness of breath or chest tightness. Patient denies cough or productive sputum. Patient states that she has not been using incentive spirometry. No recent changes in lower extremity swelling. Normal bowel movements and urination. Continued left foot pain, but improved. Patient and her are looking into rehabilitation places; they have 3 picked out to assess further. (Oscar Santos MD R3) Objective Vitals Vital Signs Date Time Temp Pulse Resp B/P (MAP) Pulse Ox O2 Delivery O2 Flow Rate FiO2 11/24/17 08:00 97.4 68 18 169/84 (112) 98 11/24/17 04:00 98.1 67 18 143/63 (89) 99 11/24/17 00:00 76 18 190/88 (122) 99 11/23/17 23:05 Nasal Cannula 2.00 11/23/17 20:00 97.8 72 20 161/74 (103) 97 11/23/17 17:57 2.00 11/23/17 16:00 97.9 73 17 150/88 (108) 93 11/23/17 12:00 98.0 64 18 165/80 (108) 95 I/O 11/23/17 11/23/17 11/23/17 11/24/17 11/24/17 11/24/17 07:00 15:00 23:00 07:00 15:00 23:00 Intake Total 360 ml 440 ml 0 ml Output Total 950 ml 300 ml 600 ml 700 ml Balance -590 ml 140 ml -600 ml -700 ml Intake Oral 360 ml 440 ml IV Total 0 ml Output Urine Total 950 ml 300 ml 600 ml 700 ml # Bowel Movements 0 1 3 (Oscar Santos MD R3) Result Diagram: 11/23/17 0516 11/24/17 0506 Imaging Last Impressions Chest X-Ray 11/15/17 0000 Signed Impressions: CONCLUSION: No significant interval change Brain MRI 11/10/17 0000 Signed Impressions: Service Date/Time: Friday, November 10, 2017 14:00 - CONCLUSION: 1. Stable examination. Specifically, no acute infarction, hemorrhage or mass. 2. Senescent changes with periventricular white matter ischemic demyelination and focal lacunar type infarct in the right centrum semiovale. César Coats MD Liver Ultrasound 11/07/17 0000 Signed Impressions: Service Date/Time: October 08:05 - CONCLUSION: 1. Heterogeneous liver suggestive of hepatocellular disease such as cirrhosis. There is a small amount of ascites surrounding the liver. This is not significantly changed compared to the recent CT scan of the abdomen. 2. Sludge in the gallbladder. No definite gallstones or biliary tract obstruction. 3. Mild splenomegaly. 4. Mild hydronephrosis of the right collecting system. Markie Crabtree MD Head CT 11/06/17 0000 Signed Impressions: Service Date/Time: Monday, November 06, 2017 10:03 - CONCLUSION: 1. No acute intracranial abnormality or significant interval change. César Coats MD Abdomen X-Ray 11/04/17 0000 Signed Impressions: Service Date/Time: Saturday, November 04, 2017 17:50 - CONCLUSION: Nonspecific intestinal gas pattern Jose Wright MD Abdomen/Pelvis CT 10/31/17 1321 Signed Impressions: Service Date/Time: October 13:58 - CONCLUSION: 1. Development of innumerable small sclerotic lesions in the skeleton most characteristic of sclerotic bony metastatic disease. There is a reported history of malignancy. 2. Hepatomegaly with development of mild ascites. 3. Persistent moderate hydronephrosis with perinephric stranding similar to February 2017. Interval development of mild anasarca. 4. Gallbladder sludge. Gallo catheter in bladder. Samuel Lin MD Lung Scan-V Nuclear Medicine 10/31/17 0000 Signed Impressions: Service Date/Time: October 15:00 - CONCLUSION: Low probability scan for pulmonary embolism Jose Wright MD Objective Remarks GENERAL: No acute distress Eyes: EOM grossly intact. Skin: Left foot with continued pain on dorsum of foot. No erythema or warmth to touch. Buttock skin tears not visualized CARDIOVASCULAR: normal rate; 3/6 murmur. Normal distal LE perfusion bilaterally RESPIRATORY: On 2L O2 via NC. Normal rate. Initially questionable sounds in left lower lung but clear on deep inspiration; no wheezing to auscultation GASTROINTESTINAL: Abdomen soft, distended. Normal bowel sounds. MUSCULOSKELETAL: No calf asymmetry or pain to palpation. Bilateral LE edema; stable with prior exam NEUROLOGICAL: No cranial nerve or peripheral motor/sensory deficits (Oscar Santos MD R3) A/P Assessment and Plan Patient is a 72-year-old admitted due to septic shock from urinary source; patient also with sclerotic bony lesions concerning for colon cancer metastasis. Due to respiratory decline/multiorgan failure, patient on ventilator 11/02. Critical care, Nephrology, and infectious disease consulted. Patient extubated ; has had altered mental status since extubation. Patient since has improved in terms of her mental status. Patient developed Cdiff is being treated with oral Vancomycin. She is improving currently and receiving PT and OT Discharge Planning Anticipate discharge to SNF in several days (Oscar Santos MD R3) Attending Attestation Pt. examined independently and case discussed with resident physicians. I have read the above note and agree with the assessment and plan as discussed with me. I was involved in all medical decision making for this patient. Markie Shore MD (Markie Shore MD) Problem List: (1) Weakness ICD Codes: R53.1 - Weakness Status: Acute Plan: -PT consulted -Planned discharge to SNF; OT recommended -ST- signed off -OT- recommend rehab (2) Hypertension ICD Codes: I10 - Essential (primary) hypertension Status: Chronic Plan: 11/22: Persistent HTN overnight. Continued LE swelling. 11/23: Persistent HTN with SBP's in 150's-170's 11/24: Persistent HTN; max SBP 190 overnight Impression: PMH HTN. Initial hypotension on admission w/ septic shock. Now intermittent hypertension based on agitation/sedation -Continue to monitor -Continue Metoprolol 25mg q8 hrs -Continue HCTZ 25mg daily -Clonidine 0.1mg PRN q6hrs BP 180/100 -Vasotec 1.25mg q8hrs PRN BP >160/90 -Will increase Lisinopril to 40mg daily (3) Clostridium difficile infection ICD Codes: B96.89 - Other specified bacterial agents as the cause of diseases classified elsewhere Status: Acute Plan: Impression: Diarrhea; C diff toxin PCR + -Continue oral vancomycin 125mg q6hrs PO (11/10- 12/03/2017) (4) Shortness of breath ICD Codes: R06.02 - Shortness of breath Status: Acute Plan: Impression: patient reports shortness of breath 11/23 which resolved with NC oxygen. Saturations 99% per EMR on 2L O2 via NC. Low O2 saturation of 93% on room air. On DVT PPX. Lungs reassuring to auscultation. She has not been using spirometry -Discussed with patient that she should let provider know if this recurs but that atelectasis is suspected; will plan to get CXR if symptoms recur -She agrees to use spirometry multiple times a day (5) Sepsis ICD Codes: A41.9 - Sepsis, unspecified organism Status: Resolved Plan: Impression: Septic shock on admission; labs suggestive of multiorgan dysfunction. Patient initially required >4 L crystalloids and was placed on pressors. E coli from urinary source. Patient developed respiratory failure and required intubation; possible concern for aspiration also. Subsequently, patient found to have C diff colitis Labs: Cr: 2.10 (10/31) -> 0.88 (11/23) WBC: 15.8 (10/31) -> 6.2 (11/23) Lactic acid: 3 (10/31) -> 3.3 (11/02) -Continue antibiotic therapy -Infectious disease consulted -Continue Vancomycin 125mg PO q 6hrs (11/10-) -Monitor cultures, temps -Continue to monitor CBC, BMP, urine output Antibiotic history: s/p Meropenem 2gm q12hrs IV -s/p Zosyn 2.5mg q6hrs (10/31-11/02) -s/p Tobramycin IV x1 11/02 -s/p Rocephin 11/03-11/06 -s/p Cefepime 2gm IV BID -s/p Levofloxacin 11/10 -s/p Fluconazole 100mg daily (11/14-11/20) -s/p Zosyn (11/10- 11/18) Cultures: -Urine culture 11/12- Debra Glabrata -11/10- C diff PCR + 11/05 -Sputum culture negative x48hrs 11/02- blood x2- negative x5 days 10/31- blood x2 taylor sensitive E Coli 10/31- urine- taylor sensitive E coli (6) ASH (acute kidney injury) ICD Codes: N17.9 - Acute kidney failure, unspecified Status: Resolved Plan: Impression: renal injury presumed secondary to septic shock/multiorgan dysfunction Cr- 2.12 on admission-> 2.59 (11/02) -> 3.53 (11/04) -> downtrended to WNL Nephrology and Urology previously consulted; subsequently signed off CT abdomen/pelvis- moderate hydronephrosis w/ perinephric stranding similar to . Interval development of mild anasarca. F/U US with continued mild hydronephrosis 11/07 -Continue to monitor (7) Elevated LFTs ICD Codes: R79.89 - Other specified abnormal findings of blood chemistry Status: Resolved Plan: Impression: Patient with normal LFT's on admission-> mild transaminase elevations: (11/02- TBILI 1.7, AST 122, ALT 62, ALKP 54 -> 11/07- TBILI 1.4, AST 77, ALT 122, ALKP65) Suspect likely related to sepsis/organ injury Labs: Ceruloplasmin 37, X8Cmhvakrorir 225, Hep panel negative JELANI+; titer >1:1280; speckled pattern Liver US per CC- heterogenous liver suggestive of hepatocellular disease such as cirrhosis. Small ascites; not recently changed since last CT. Sludge in gallbladder; no definite gallstones. Mild splenomegaly. Mild hydronephrosis Ceftriaxone stopped per ID Gastroenterology consulted; signed off after improvement Stopped lactulose and Rifaximin dose due to current diarrhea (8) Atrial fibrillation ICD Codes: I48.91 - Unspecified atrial fibrillation Status: Chronic Plan: Impression: patient initially placed on amiodarone drip and given digoxin for afib with RVR on admission. Patient currently with normal rate/ sinus rhythm. Patient with reported history of moderate mitral stenosis and mild /moderate aortic stenosis Echocardiogram- moderate concentric LVF. EF 70%. Aortic sclerosis present. 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 [id number]. s/p Zeloda 08/2016. Abdomen/Pelvis CT 10/31/17: Innumerable small sclerotic lesions in the skeleton, most characteristic of sclerotic bony metastatic disease -Dr. Candelario consulted -recent bone scan w/o uptake; reassuring regarding sclerotic lesions -plan for PET as outpatient -Continue heparin, treatment for sepsis (10) Diabetes mellitus, type II ICD Codes: E11.9 - Type 2 diabetes mellitus Status: Chronic Plan: Impression: On home Lantus 10 U HS. Borderline low blood glucose prior to administration 11/19; suspect lower glucose values due to less oral intake -Low dose SSI -Continue to monitor blood sugar -Continue Levemir 6 U HS (11) UTI (urinary tract infection) ICD Codes: N39.0 - Urinary tract infection, site not specified Status: Resolved Plan: Impression: UA with large leukocyte esterase, innumerable WBCs, many WBC clumps. . resolvedUrine culture and blood cultures 10/31 with pansensitive E Coli 11/23: Dark urine reported -Will repeat UA as dark urine reported (12) Hypothyroidism ICD Codes: E03.9 - Hypothyroidism Status: Chronic Plan: Continue home Levothyroxine (13) Positive JELANI (antinuclear antibody) ICD Codes: R76.8 - Other specified abnormal immunological findings in serum Plan: JELANI 1: 1280. has speckled pattern and markedly positive. unclear at this point what the significance is. Subsequent rheumatologic labs w/o abnormalities. (14) Pain in left foot ICD Codes: M79.672 - Pain in left foot Status: Acute Plan: Impression: Continued left foot pain on dorsum of foot; suspect some neurologic component. Also, some erythema 11/20; erythema nodosum initially suspected. Associated with some bilateral LE swelling. High JELANI but does not appear joint related -Will continue Prednisone 40mg daily for possible rheumatologic etiology -Continue Gabapentin to 500mg TID as some of pain seems neuropathic -Will plan to recommend rheumatology f/u at discharge (15) Skin tear Status: Acute Plan: Impression: Buttock skin tears associated with frequent diarrhea -Wound care consulted -cleanse with Remedy barrier wipes to remove stool -Apply Calazime skin protectant past to bilateral buttocks in thick layer BID -Turn patient q2hrs and as needed to offload -Use Ultrasorb pad; do not use cloth pads (16) Altered mental state ICD Codes: R41.82 - Altered mental status, unspecified Status: Resolved Plan: 11/20- No mental status concerns Impression: Persistent lack of orientation after extubation 11/05. No focal deficits. History of TIA. Suspect multifactorial. off of sedation since extubation. Suspect possible hepatic encephalopathy as component plus may have been uremic Imaging: CT head 10/31 on admission (ordered due to confusion on admission; suspected secondary to sepsis) w/o acute findings. Remote lacunar infarct in right frontal white matter Repeat head CT 11/06 without acute intracranial abnormality MRI brain 11/08- chronic changes with some periventricular small vessel ischemic demyelination and old lacunar infarct at junction of R coronal radiata and centrum semiovale MRI brain 11/10- stable exam EEG 11/11- moderate encephalopathy with triphasic waveforms; possible she could have nonconvulsive seizures EEG 11/15- moderate encephalopathy; no focal abnormality. No seizure activity seen Labs: Leukocytosis. Some hypocalcemia. Normal sodium. Ammonia 76 11/06 -> 39 (11/08) -> 33 11/10-> 38 11/15 -> 24 (11/17) LFT elevations- 11/02-11/08- (TBILI mild elevation, mild AST and ALT elevations normal ALKP); subsequently normal values with exception of mild Alk P elevation ABG 11/07- pH 7.34, CO2 37, HCO3 20 -Neurology consulted-appreciate recs -Likely metabolic encephalopathy -Antibiotic therapy changed to Zosyn to avoid possible encephalopathy from Cefepime -Discontinued IV Cerebrex since no seizures on last EEG -Hyperammonemia -Hold Lactulose BID (loose stool from Cdiff) -Hold rifaximin 550mg BID (loose stool from Cdiff) -Monitor ammonia periodically -Supportive care; monitor labs (17) FEN/PPX Plan: Fluids: None at this time Electrolytes: Continue to monitor; replacement per protocol Nutrition: normal diet DVT PPX: Xarelto 20mg daily (Oscar Santos MD R3) Problem Qualifiers (1) Hypertension: Qualified Codes: I10 - Essential (primary) hypertension (2) Sepsis: Qualified Codes: A41.9 - Sepsis, unspecified organism (3) Atrial fibrillation: Qualified Codes: I48.2 - Chronic atrial fibrillation (4) Diabetes mellitus, type II: Qualified Codes: E11.8 - Type 2 diabetes mellitus with unspecified complications (5) UTI (urinary tract infection): (6) Hypothyroidism: Qualified Codes: E03.9 - Hypothyroidism, unspecified Oscar Santos MD R3 Nov 24, 2017 09:55 Markie Shore MD Nov 24, 2017 13:51
[2017-11-24 12:00] VITALS: BP 161/71; PULSE 61; RESP 17; TEMP 97.6; O2SAT 98
[2017-11-24 16:00] VITALS: BP 143/76; PULSE 78; RESP 17; TEMP 97.3; O2SAT 94
[2017-11-24 20:00] VITALS: BP 176/84; PULSE 85; RESP 18; TEMP 97.5; O2SAT 95
[2017-11-24] MEDS: INSULIN DETEMIR 100 UNITS/ML VIAL SQ SCH (20:27)
[2017-11-24] MEDS: ACETAMINOPHEN/HYDROcodone 325 MG/5 MG TAB PO PRN (22:49)
[2017-11-25] VITALS: BP 151/82; PULSE 71; RESP 18; TEMP 97.3; O2SAT 90
[2017-11-25 04:00] VITALS: BP 170/77; PULSE 71; RESP 18; TEMP 97.9; O2SAT 96
[2017-11-25] MEDS: GABAPENTIN 100 MG CAP PO SCH (05:17)
[2017-11-25] MEDS: GABAPENTIN 400 MG CAP PO SCH (05:17)
[2017-11-25] MEDS: METOPROLOL TARTRATE 25 MG TAB PO SCH (05:17)
[2017-11-25] MEDS: LEVOTHYROXINE SODIUM 50 MCG TAB PO SCH (05:17)
[2017-11-25] MEDS: VANCOMYCIN 500 MG VIAL (FOR ORAL USE ONLY) PO SCH ×4 (05:18→22:23)
[2017-11-25 08:00] VITALS: BP 157/82; PULSE 63; RESP 19; TEMP 97.8; O2SAT 95
[2017-11-25] MEDS: INSULIN ASPART SUPPLEMENTAL SCALE SQ SCH ×4 (08:00→22:30)
[2017-11-25] MEDS: LACTOBACILLUS ACIDOPHILUS TAB PO SCH ×2 (09:21→22:20)
[2017-11-25] MEDS: ACETAMINOPHEN/HYDROcodone 325 MG/5 MG TAB PO PRN ×2 (09:21→22:21)
[2017-11-25] MEDS: HYDROCHLOROTHIAZIDE 25 MG TAB PO SCH (09:21)
[2017-11-25] MEDS: LISINOPRIL 20 MG TAB PO SCH (09:22)
[2017-11-25] MEDS: predniSONE 20 MG TAB PO SCH (09:22)
[2017-11-25] MEDS: VENLAFAXINE HCL XR 75 MG CAP PO SCH (09:22)
[2017-11-25] MEDS: RIVAROXABAN 20 MG TAB PO SCH (09:23)
[2017-11-25] MEDS: AMIODARONE 200 MG TAB PO SCH (09:23)
--- NOTE | 2017-11-25 09:23 | HHI.FPPN ---
Subjective Remarks Mrs. Marrouqin was afebrile with HTN overnight (max MAP 114). O2 saturations 90-96% on room air. Patient reports doing well this morning with exception of continued left foot pain. Patient eating well. No shortness of breath or chest pain reported. Patient had a normal bowel movement overnight. Patient's states that he is looking at two rehab facilities for discharge; he will let case management know if he has questions. (Oscar Santos MD R3) Objective Vitals Vital Signs Date Time Temp Pulse Resp B/P (MAP) Pulse Ox O2 Delivery O2 Flow Rate FiO2 11/25/17 04:00 97.9 71 18 170/77 (108) 96 11/25/17 00:00 97.3 71 18 151/82 (105) 90 11/24/17 20:17 Room Air 11/24/17 20:00 97.5 85 18 176/84 (114) 95 11/24/17 16:00 97.3 78 17 143/76 (98) 94 11/24/17 12:00 97.6 61 17 161/71 (101) 98 11/24/17 10:01 2.00 I/O 11/24/17 11/24/17 11/24/17 11/25/17 11/25/17 11/25/17 07:00 15:00 23:00 07:00 15:00 23:00 Intake Total 900 ml Output Total 700 ml 3000 ml 1600 ml Balance -700 ml -2100 ml -1600 ml Intake Oral 900 ml IV Total 0 ml Output Urine Total 700 ml 3000 ml 1600 ml # Voids 1 # Bowel Movements 3 6 1 (Oscar Santos MD R3) Result Diagram: 11/23/17 0516 11/24/17 0506 Imaging Last Impressions Chest X-Ray 11/15/17 0000 Signed Impressions: CONCLUSION: No significant interval change Brain MRI 11/10/17 0000 Signed Impressions: Service Date/Time: Friday, November 10, 2017 14:00 - CONCLUSION: 1. Stable examination. Specifically, no acute infarction, hemorrhage or mass. 2. Senescent changes with periventricular white matter ischemic demyelination and focal lacunar type infarct in the right centrum semiovale. César Coats MD Liver Ultrasound 11/07/17 0000 Signed Impressions: Service Date/Time: October 08:05 - CONCLUSION: 1. Heterogeneous liver suggestive of hepatocellular disease such as cirrhosis. There is a small amount of ascites surrounding the liver. This is not significantly changed compared to the recent CT scan of the abdomen. 2. Sludge in the gallbladder. No definite gallstones or biliary tract obstruction. 3. Mild splenomegaly. 4. Mild hydronephrosis of the right collecting system. Markie Crabtree MD Head CT 11/06/17 0000 Signed Impressions: Service Date/Time: Monday, November 06, 2017 10:03 - CONCLUSION: 1. No acute intracranial abnormality or significant interval change. César Coats MD Abdomen X-Ray 11/04/17 0000 Signed Impressions: Service Date/Time: Saturday, November 04, 2017 17:50 - CONCLUSION: Nonspecific intestinal gas pattern Jose Wright MD Abdomen/Pelvis CT 10/31/17 1321 Signed Impressions: Service Date/Time: October 13:58 - CONCLUSION: 1. Development of innumerable small sclerotic lesions in the skeleton most characteristic of sclerotic bony metastatic disease. There is a reported history of malignancy. 2. Hepatomegaly with development of mild ascites. 3. Persistent moderate hydronephrosis with perinephric stranding similar to February 2017. Interval development of mild anasarca. 4. Gallbladder sludge. Gallo catheter in bladder. Samuel Lin MD Lung Scan-V Nuclear Medicine 10/31/17 0000 Signed Impressions: Service Date/Time: October 15:00 - CONCLUSION: Low probability scan for pulmonary embolism Jose Wright MD Objective Remarks GENERAL: No acute distress Eyes: EOM grossly intact. Skin: Left foot without erythema or warmth to touch. Buttock skin tears not visualized CARDIOVASCULAR: normal rate; 3/6 murmur. Normal distal LE perfusion bilaterally RESPIRATORY: On 2L O2 via NC. Normal rate. CTAB GASTROINTESTINAL: Abdomen soft, distended. Normal bowel sounds. MUSCULOSKELETAL: No calf asymmetry or pain to palpation. Bilateral LE edema; stable with prior exam. Left foot with pain to mild palpation on dorsum of foot. Dorsiflexion limited but normal passive range of motion NEUROLOGICAL: No cranial nerve or peripheral motor/sensory deficits (Oscar Santos MD R3) A/P Assessment and Plan Patient is a 72-year-old admitted due to septic shock from urinary source; patient also with sclerotic bony lesions concerning for colon cancer metastasis. Due to respiratory decline/multiorgan failure, patient on ventilator 11/02. Critical care, Nephrology, and infectious disease consulted. Patient extubated ; has had altered mental status since extubation. Patient since has improved in terms of her mental status. Patient developed Cdiff is being treated with oral Vancomycin. She is improving currently and receiving PT and OT Discharge Planning Anticipate discharge to SNF in several days (Oscar Santos MD R3) Attending Attestation Patient examined independently and case discussed with resident physician I have read the above note and agree with the assessment/plan as discussed with me I was involved in all medical decision making for this patient Markie Shore MD (Markie Shore MD) Problem List: (1) Weakness ICD Codes: R53.1 - Weakness Status: Acute Plan: -PT consulted -Planned discharge to SNF; OT recommended -ST- signed off -OT- recommend rehab (2) Hypertension ICD Codes: I10 - Essential (primary) hypertension Status: Chronic Plan: 11/22: Persistent HTN overnight. Continued LE swelling. 11/23: Persistent HTN with SBP's in 150's-170's 11/24: Persistent HTN; max SBP 190 overnight 11/25: Persistent HTN; MAP max 114 Impression: PMH HTN. Initial hypotension on admission w/ septic shock. Now intermittent hypertension based on agitation/sedation -Continue to monitor -Will increase Metoprolol to 50mg q8 hrs -Continue HCTZ 25mg daily -Clonidine 0.1mg PRN q6hrs BP 180/100 -Vasotec 1.25mg q8hrs PRN BP >160/90 -Continue Lisinopril 40mg daily (3) Clostridium difficile infection ICD Codes: B96.89 - Other specified bacterial agents as the cause of diseases classified elsewhere Status: Acute Plan: Impression: Diarrhea; C diff toxin PCR + -Continue oral vancomycin 125mg q6hrs PO (11/10- 12/03/2017) (4) Shortness of breath ICD Codes: R06.02 - Shortness of breath Status: Acute Plan: Impression: patient reports shortness of breath 11/23 which resolved with NC oxygen. Saturations 99% per EMR on 2L O2 via NC. Low O2 saturation of 93% on room air. On DVT PPX. Lungs reassuring to auscultation. She has not been using spirometry -Discussed with patient that she should let provider know if this recurs but that atelectasis is suspected; will plan to get CXR if symptoms recur -She agrees to use spirometry multiple times a day (5) Sepsis ICD Codes: A41.9 - Sepsis, unspecified organism Status: Resolved Plan: Impression: Septic shock on admission; labs suggestive of multiorgan dysfunction. Patient initially required >4 L crystalloids and was placed on pressors. E coli from urinary source. Patient developed respiratory failure and required intubation; possible concern for aspiration also. Subsequently, patient found to have C diff colitis Labs: Cr: 2.10 (10/31) -> 0.88 (11/23) WBC: 15.8 (10/31) -> 6.2 (11/23) Lactic acid: 3 (10/31) -> 3.3 (11/02) -Continue antibiotic therapy -Infectious disease consulted -Continue Vancomycin 125mg PO q 6hrs (11/10-12/03) -Monitor cultures, temps -Continue to monitor CBC, BMP, urine output Antibiotic history: s/p Meropenem 2gm q12hrs IV -s/p Zosyn 2.5mg q6hrs (10/31-11/02) -s/p Tobramycin IV x1 11/02 -s/p Rocephin 11/03-11/06 -s/p Cefepime 2gm IV BID -s/p Levofloxacin 11/10 -s/p Fluconazole 100mg daily (11/14-11/20) -s/p Zosyn (11/10- 11/18) Cultures: -Urine culture 11/12- Debra Glabrata -11/10- C diff PCR + 11/05 -Sputum culture negative x48hrs 11/02- blood x2- negative x5 days 10/31- blood x2 taylor sensitive E Coli 10/31- urine- taylor sensitive E coli () ASH (acute kidney injury) ICD Codes: N17.9 - Acute kidney failure, unspecified Status: Resolved Plan: Impression: renal injury presumed secondary to septic shock/multiorgan dysfunction Cr- 2.12 on admission-> 2.59 (11/02) -> 3.53 (11/04) -> downtrended to WNL Nephrology and Urology previously consulted; subsequently signed off CT abdomen/pelvis- moderate hydronephrosis w/ perinephric stranding similar to . Interval development of mild anasarca. F/U US with continued mild hydronephrosis 11/07 -Continue to monitor (7) Elevated LFTs ICD Codes: R79.89 - Other specified abnormal findings of blood chemistry Status: Resolved Plan: Impression: Patient with normal LFT's on admission-> mild transaminase elevations: (11/02- TBILI 1.7, AST 122, ALT 62, ALKP 54 -> 11/07- TBILI 1.4, AST 77, ALT 122, ALKP65) Suspect likely related to sepsis/organ injury Labs: Ceruloplasmin 37, [id number] 225, Hep panel negative JELANI+; titer >1:1280; speckled pattern Liver US per CC- heterogenous liver suggestive of hepatocellular disease such as cirrhosis. Small ascites; not recently changed since last CT. Sludge in gallbladder; no definite gallstones. Mild splenomegaly. Mild hydronephrosis Ceftriaxone stopped per ID Gastroenterology consulted; signed off after improvement Stopped lactulose and Rifaximin dose due to current diarrhea (8) Atrial fibrillation ICD Codes: I48.91 - Unspecified atrial fibrillation Status: Chronic Plan: Impression: patient initially placed on amiodarone drip and given digoxin for afib with RVR on admission. Patient currently with normal rate/ sinus rhythm. Patient with reported history of moderate mitral stenosis and mild /moderate aortic stenosis Echocardiogram- moderate concentric LVF. EF 70%. Aortic sclerosis present. 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 [id number]. s/p Zeloda 08/2016. Abdomen/Pelvis CT 10/31/17: Innumerable small sclerotic lesions in the skeleton, most characteristic of sclerotic bony metastatic disease -Dr. Candelario consulted -recent bone scan w/o uptake; reassuring regarding sclerotic lesions -plan for PET as outpatient -Continue heparin, treatment for sepsis (10) Diabetes mellitus, type II ICD Codes: E11.9 - Type 2 diabetes mellitus Status: Chronic Plan: Impression: On home Lantus 10 U HS. Borderline low blood glucose prior to administration 11/19; suspect lower glucose values due to less oral intake -Low dose SSI -Continue to monitor blood sugar -Continue Levemir 6 U HS (11) UTI (urinary tract infection) ICD Codes: N39.0 - Urinary tract infection, site not specified Status: Resolved Plan: Impression: UA with large leukocyte esterase, innumerable WBCs, many WBC clumps. . resolvedUrine culture and blood cultures 10/31 with pansensitive E Coli 11/23: Dark urine reported -Will repeat UA as dark urine reported (12) Hypothyroidism ICD Codes: E03.9 - Hypothyroidism Status: Chronic Plan: Continue home Levothyroxine (13) Positive JELANI (antinuclear antibody) ICD Codes: R76.8 - Other specified abnormal immunological findings in serum Plan: JELANI 1: 1280. has speckled pattern and markedly positive. unclear at this point what the significance is. Subsequent rheumatologic labs w/o abnormalities. (14) Pain in left foot ICD Codes: M79.672 - Pain in left foot Status: Acute Plan: Impression: Continued left foot pain on dorsum of foot; suspect some neurologic component. Also, some erythema 11/20; erythema nodosum initially suspected. Associated with some bilateral LE swelling. High JELANI but does not appear joint related -Will continue Prednisone 40mg daily for possible rheumatologic etiology -Will increase Gabapentin to 600mg TID -Will plan to recommend rheumatology f/u at discharge (15) Skin tear Status: Acute Plan: Impression: Buttock skin tears associated with frequent diarrhea -Wound care consulted -cleanse with Remedy barrier wipes to remove stool -Apply Calazime skin protectant past to bilateral buttocks in thick layer BID -Turn patient q2hrs and as needed to offload -Use Ultrasorb pad; do not use cloth pads (16) Altered mental state ICD Codes: R41.82 - Altered mental status, unspecified Status: Resolved Plan: 11/20- No mental status concerns Impression: Persistent lack of orientation after extubation 11/05. No focal deficits. History of TIA. Suspect multifactorial. off of sedation since extubation. Suspect possible hepatic encephalopathy as component plus may have been uremic Imaging: CT head 10/31 on admission (ordered due to confusion on admission; suspected secondary to sepsis) w/o acute findings. Remote lacunar infarct in right frontal white matter Repeat head CT 11/06 without acute intracranial abnormality MRI brain 11/08- chronic changes with some periventricular small vessel ischemic demyelination and old lacunar infarct at junction of R coronal radiata and centrum semiovale MRI brain 11/10- stable exam EEG 11/11- moderate encephalopathy with triphasic waveforms; possible she could have nonconvulsive seizures EEG 11/15- moderate encephalopathy; no focal abnormality. No seizure activity seen Labs: Leukocytosis. Some hypocalcemia. Normal sodium. Ammonia 76 11/06 -> 39 (11/08) -> 33 11/10-> 38 11/15 -> 24 (11/17) LFT elevations- 11/02-11/08- (TBILI mild elevation, mild AST and ALT elevations normal ALKP); subsequently normal values with exception of mild Alk P elevation ABG 11/07- pH 7.34, CO2 37, HCO3 20 -Neurology consulted-appreciate recs -Likely metabolic encephalopathy -Antibiotic therapy changed to Zosyn to avoid possible encephalopathy from Cefepime -Discontinued IV Cerebrex since no seizures on last EEG -Hyperammonemia -Hold Lactulose BID (loose stool from Cdiff) -Hold rifaximin 550mg BID (loose stool from Cdiff) -Monitor ammonia periodically -Supportive care; monitor labs (17) FEN/PPX Plan: Fluids: None at this time Electrolytes: Continue to monitor; replacement per protocol Nutrition: normal diet DVT PPX: Xarelto 20mg daily (Oscar Santos MD R3) Problem Qualifiers (1) Hypertension: Qualified Codes: I10 - Essential (primary) hypertension (2) Sepsis: Qualified Codes: A41.9 - Sepsis, unspecified organism (3) Atrial fibrillation: Qualified Codes: I48.2 - Chronic atrial fibrillation (4) Diabetes mellitus, type II: Qualified Codes: E11.8 - Type 2 diabetes mellitus with unspecified complications (5) UTI (urinary tract infection): (6) Hypothyroidism: Qualified Codes: E03.9 - Hypothyroidism, unspecified Chotas,Oscar N MD R3 Nov 25, 2017 09:23 Markie Shore MD Nov 25, 2017 14:46
[2017-11-25] MEDS: SODIUM CHLORIDE 0.9% FLUSH 10 ML FLUSH IV FLUSH SCH ×2 (09:38→22:30)
[2017-11-25 12:00] VITALS: BP 146/84; PULSE 73; RESP 17; TEMP 98; O2SAT 96
[2017-11-25] MEDS: GABAPENTIN 300 MG CAP PO SCH ×2 (12:21→22:20)
[2017-11-25] MEDS: METOPROLOL TARTRATE 50 MG TAB PO SCH ×2 (12:21→22:21)
[2017-11-25 16:00] VITALS: BP 141/76; PULSE 75; RESP 17; TEMP 96.8; O2SAT 92
[2017-11-25 20:00] VITALS: BP 163/81; PULSE 86; RESP 20; TEMP 98; O2SAT 93
[2017-11-25] MEDS: INSULIN DETEMIR 100 UNITS/ML VIAL SQ SCH (22:30)
[2017-11-26] VITALS: BP 164/84; PULSE 64; RESP 20; TEMP 97.2; O2SAT 97
[2017-11-26] MEDS: ACETAMINOPHEN/HYDROcodone 325 MG/5 MG TAB PO PRN ×3 (04:29→19:12)
[2017-11-26] MEDS: GABAPENTIN 300 MG CAP PO SCH ×3 (04:29→21:01)
[2017-11-26 04:30] VITALS: PULSE 69
[2017-11-26] MEDS: METOPROLOL TARTRATE 50 MG TAB PO SCH ×3 (04:30→21:01)
[2017-11-26] MEDS: VANCOMYCIN 500 MG VIAL (FOR ORAL USE ONLY) PO SCH ×4 (04:30→21:02)
[2017-11-26] MEDS: LEVOTHYROXINE SODIUM 50 MCG TAB PO SCH (04:30)
[2017-11-26 08:00] VITALS: BP 145/78; PULSE 76; RESP 19; TEMP 97.1; O2SAT 98
[2017-11-26] MEDS: INSULIN ASPART SUPPLEMENTAL SCALE SQ SCH ×5 (08:00→19:29)
--- NOTE | 2017-11-26 09:26 | HHI.FPPN ---
Subjective Remarks Mrs. Marroquin was afebrile with persistent mild HTN overnight (SBP's 140's-160's). O2 saturations 92-98% on room air. Patient states that she has been using incentive spirometry more. Patient has continued left foot pain; she has decreased ability to dorsiflex her left foot actively. Patient has continued lower extremity swelling also. No reported chest pain. She has occasional shortness of breath with position changes. No abdominal pain reported. 3 BM overnight. Patient's plans to visit 2 rehab facilities this morning. (Oscar Santos MD R3) Objective Vitals Vital Signs Date Time Temp Pulse Resp B/P (MAP) Pulse Ox O2 Delivery O2 Flow Rate FiO2 11/26/17 08:00 97.1 76 19 145/78 (100) 98 11/26/17 04:30 69 11/26/17 00:00 97.2 64 20 164/84 (110) 97 11/25/17 20:00 98.0 86 20 163/81 (108) 93 11/25/17 16:00 96.8 75 17 141/76 (97) 92 11/25/17 12:00 98.0 73 17 146/84 (104) 96 I/O 11/25/17 11/25/17 11/25/17 11/26/17 11/26/17 11/26/17 06:59 14:59 22:59 06:59 14:59 22:59 Intake Total 770 ml 360 ml Output Total 1600 ml 900 ml 800 ml Balance -1600 ml -130 ml -440 ml Intake Oral 770 ml 360 ml Output Urine Total 1600 ml 900 ml 800 ml # Voids 1 3 2 # Bowel Movements 2 2 2 (Oscar Santos MD R3) Result Diagram: 11/23/17 0516 11/24/17 0506 Imaging Last Impressions Chest X-Ray 11/15/17 0000 Signed Impressions: CONCLUSION: No significant interval change Brain MRI 11/10/17 0000 Signed Impressions: Service Date/Time: Friday, November 10, 2017 14:00 - CONCLUSION: 1. Stable examination. Specifically, no acute infarction, hemorrhage or mass. 2. Senescent changes with periventricular white matter ischemic demyelination and focal lacunar type infarct in the right centrum semiovale. César Coats MD Liver Ultrasound 11/07/17 0000 Signed Impressions: Service Date/Time: October 08:05 - CONCLUSION: 1. Heterogeneous liver suggestive of hepatocellular disease such as cirrhosis. There is a small amount of ascites surrounding the liver. This is not significantly changed compared to the recent CT scan of the abdomen. 2. Sludge in the gallbladder. No definite gallstones or biliary tract obstruction. 3. Mild splenomegaly. 4. Mild hydronephrosis of the right collecting system. Markie Crabtree MD Head CT 11/06/17 0000 Signed Impressions: Service Date/Time: Monday, November 06, 2017 10:03 - CONCLUSION: 1. No acute intracranial abnormality or significant interval change. César Coats MD Abdomen X-Ray 11/04/17 0000 Signed Impressions: Service Date/Time: Saturday, November 04, 2017 17:50 - CONCLUSION: Nonspecific intestinal gas pattern Jose Wright MD Abdomen/Pelvis CT 10/31/17 1321 Signed Impressions: Service Date/Time: October 13:58 - CONCLUSION: 1. Development of innumerable small sclerotic lesions in the skeleton most characteristic of sclerotic bony metastatic disease. There is a reported history of malignancy. 2. Hepatomegaly with development of mild ascites. 3. Persistent moderate hydronephrosis with perinephric stranding similar to February 2017. Interval development of mild anasarca. 4. Gallbladder sludge. Gallo catheter in bladder. Samuel Lin MD Lung Scan- Nuclear Medicine 10/31/17 0000 Signed Impressions: Service Date/Time: October 15:00 - CONCLUSION: Low probability scan for pulmonary embolism Jose Wright MD Objective Remarks GENERAL: No acute distress Eyes: EOM grossly intact. Skin: Left foot without erythema or warmth to touch. Buttock skin tears not visualized CARDIOVASCULAR: normal rate; 3/6 murmur. Normal distal LE perfusion bilaterally RESPIRATORY: On room air vs 2L O2 via NC. Normal rate. CTAB GASTROINTESTINAL: Abdomen soft, distended. Normal bowel sounds. MUSCULOSKELETAL: Bilateral LE edema; stable with prior exam. No calf asymmetry or pain to palpation. Left foot with continued pain to palpation on dorsum of foot. Dorsiflexion limited with patient effort but normal passive range of motion NEUROLOGICAL: No cranial nerve or peripheral motor/sensory deficits (Oscar Santos MD R3) A/P Assessment and Plan Patient is a 72-year-old admitted due to septic shock from urinary source; patient also with sclerotic bony lesions concerning for colon cancer metastasis. Due to respiratory decline/multiorgan failure, patient on ventilator 11/02. Critical care, Nephrology, and infectious disease consulted. Patient extubated ; has had altered mental status since extubation. Patient since has improved in terms of her mental status. Patient developed Cdiff is being treated with oral Vancomycin. She is improving currently and receiving PT and OT Discharge Planning Anticipate discharge to SNF in several days (Oscar Santos MD R3) Attending Attestation Patient examined independently and case discussed with resident physician I have read the above note and agree with the assessment/plan as discussed with me I was involved in all medical decision making for this patient Markie Shore MD (Markie Shore MD) Problem List: (1) Weakness ICD Codes: R53.1 - Weakness Status: Acute Plan: -PT consulted -Planned discharge to SNF; OT recommended -ST- signed off -OT- recommend rehab (2) Hypertension ICD Codes: I10 - Essential (primary) hypertension Status: Chronic Plan: 11/22: Persistent HTN overnight. Continued LE swelling. 11/23: Persistent HTN with SBP's in 150's-170's 11/24: Persistent HTN; max SBP 190 overnight 11/25: Persistent HTN; MAP max 114 11/26: Mild HTN; MAP max ~110 overnight Impression: PMH HTN. Initial hypotension on admission w/ septic shock. Now persistent HTN -Add Amlodipine 5mg daily -Continue Metoprolol 50mg q8 hrs -Continue HCTZ 25mg daily -Continue Lisinopril 40mg daily -Clonidine 0.1mg PRN q6hrs BP 180/100 -Vasotec 1.25mg q8hrs PRN BP >160/90 (3) Clostridium difficile infection ICD Codes: B96.89 - Other specified bacterial agents as the cause of diseases classified elsewhere Status: Acute Plan: 11/26: 3 BM overnight Impression: Diarrhea; C diff toxin PCR + -Continue oral vancomycin 125mg q6hrs PO (11/10- 12/03/2017) (4) Shortness of breath ICD Codes: R06.02 - Shortness of breath Status: Acute Plan: 11/26: O2 saturations 92-98%; on room air vs 2 L O2 via NC. Using incentive spirometry more Impression: patient reports shortness of breath 11/23 which resolved with NC oxygen. Saturations 99% per EMR on 2L O2 via NC. Low O2 saturation of 93% on room air. On DVT PPX. Lungs reassuring to auscultation. She has not been using spirometry -Discussed with patient that she should let provider know if this recurs but that atelectasis is suspected; will plan to get CXR if symptoms recur -She agrees to use spirometry multiple times a day (5) Atrial fibrillation ICD Codes: I48.91 - Unspecified atrial fibrillation Status: Chronic Plan: Impression: patient initially placed on amiodarone drip and given digoxin for afib with RVR on admission. Patient currently with normal rate/ sinus rhythm. Patient with reported history of moderate mitral stenosis and mild /moderate aortic stenosis Echocardiogram- moderate concentric LVF. EF 70%. Aortic sclerosis present. Moderate /severe pulmonary HTN (60-70mmHg) Initially placed on heparin drip-> PO Amiodarone; currently on hold with sinus rhythm -Continue telemetry/monitoring VS -Transitioned to Xarelto 20mg daily due to improvement in renal function -Amiodarone down-titrated from 200mg daily to 100mg daily -Continue Metoprolol 50mg q8hrs for BP control (6) Sepsis ICD Codes: A41.9 - Sepsis, unspecified organism Status: Resolved Plan: Impression: Septic shock on admission; labs suggestive of multiorgan dysfunction. Patient initially required >4 L crystalloids and was placed on pressors. E coli from urinary source. Patient developed respiratory failure and required intubation; possible concern for aspiration also. Subsequently, patient found to have C diff colitis Labs: Cr: 2.10 (10/31) -> 0.88 (11/23) WBC: 15.8 (10/31) -> 6.2 (11/23) Lactic acid: 3 (10/31) -> 3.3 (11/02) -Continue antibiotic therapy -Infectious disease consulted -Continue Vancomycin 125mg PO q 6hrs (11/10-12/03) -Monitor cultures, temps -Continue to monitor CBC, BMP, urine output Antibiotic history: s/p Meropenem 2gm q12hrs IV -s/p Zosyn 2.5mg q6hrs (10/31-11/02) -s/p Tobramycin IV x1 11/02 -s/p Rocephin 11/03-11/06 -s/p Cefepime 2gm IV BID -s/p Levofloxacin 11/10 -s/p Fluconazole 100mg daily (11/14-11/20) -s/p Zosyn (11/10- 11/18) Cultures: -Urine culture 11/12- Debra Glabrata -11/10- C diff PCR + 11/05 -Sputum culture negative x48hrs 11/02- blood x2- negative x5 days 10/31- blood x2 taylor sensitive E Coli 10/31- urine- taylor sensitive E coli (7) ASH (acute kidney injury) ICD Codes: N17.9 - Acute kidney failure, unspecified Status: Resolved Plan: Impression: renal injury presumed secondary to septic shock/multiorgan dysfunction Cr- 2.12 on admission-> 2.59 (11/02) -> 3.53 (11/04) -> downtrended to WNL Nephrology and Urology previously consulted; subsequently signed off CT abdomen/pelvis- moderate hydronephrosis w/ perinephric stranding similar to . Interval development of mild anasarca. F/U US with continued mild hydronephrosis 11/07 -Continue to monitor (8) Elevated LFTs ICD Codes: R79.89 - Other specified abnormal findings of blood chemistry Status: Resolved Plan: Impression: Patient with normal LFT's on admission-> mild transaminase elevations: (11/02- TBILI 1.7, AST 122, ALT 62, ALKP 54 -> 11/07- TBILI 1.4, AST 77, ALT 122, ALKP65) Suspect likely related to sepsis/organ injury Labs: Ceruloplasmin 37, [id number] 225, Hep panel negative JELANI+; titer >1:1280; speckled pattern Liver US per CC- heterogenous liver suggestive of hepatocellular disease such as cirrhosis. Small ascites; not recently changed since last CT. Sludge in gallbladder; no definite gallstones. Mild splenomegaly. 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 [id number]. s/p Zeloda 08/2016. Abdomen/Pelvis CT 10/31/17: Innumerable small sclerotic lesions in the skeleton, most characteristic of sclerotic bony metastatic disease -Dr. Candelario consulted -recent bone scan w/o uptake; reassuring regarding sclerotic lesions -plan for PET as outpatient -Continue heparin, treatment for sepsis (10) Diabetes mellitus, type II ICD Codes: E11.9 - Type 2 diabetes mellitus Status: Chronic Plan: Impression: On home Lantus 10 U HS. Borderline low blood glucose prior to administration 11/19; suspect lower glucose values due to less oral intake -Low dose SSI -Continue to monitor blood sugar -Continue Levemir 6 U HS (11) UTI (urinary tract infection) ICD Codes: N39.0 - Urinary tract infection, site not specified Status: Resolved Plan: Impression: UA with large leukocyte esterase, innumerable WBCs, many WBC clumps. Urine culture and blood cultures 10/31 with pansensitive E Coli (12) Hypothyroidism ICD Codes: E03.9 - Hypothyroidism Status: Chronic Plan: Continue home Levothyroxine (13) Positive JELANI (antinuclear antibody) ICD Codes: R76.8 - Other specified abnormal immunological findings in serum Plan: JELANI 1: 1280. has speckled pattern and markedly positive. unclear at this point what the significance is. Subsequent rheumatologic labs w/o abnormalities. (14) Pain in left foot ICD Codes: M79.672 - Pain in left foot Status: Acute Plan: Impression: Continued left foot pain on dorsum of foot; suspect some neurologic component. Also, some erythema 11/20; erythema nodosum initially suspected. Associated with some bilateral LE swelling. High JELANI but does not appear joint related -Will continue Prednisone 40mg daily for possible rheumatologic etiology -Continue Gabapentin 600mg TID -Will plan to recommend rheumatology f/u at discharge (15) Skin tear Status: Acute Plan: Impression: Buttock skin tears associated with frequent diarrhea -Wound care consulted -cleanse with Remedy barrier wipes to remove stool -Apply Calazime skin protectant past to bilateral buttocks in thick layer BID -Turn patient q2hrs and as needed to offload -Use Ultrasorb pad; do not use cloth pads (16) Altered mental state ICD Codes: R41.82 - Altered mental status, unspecified Status: Resolved Plan: Impression: Persistent lack of orientation after extubation 11/05. No focal deficits. History of TIA. Suspect multifactorial. off of sedation since extubation. Suspect possible hepatic encephalopathy as component plus may have been uremic Imaging: CT head 10/31 on admission (ordered due to confusion on admission; suspected secondary to sepsis) w/o acute findings. Remote lacunar infarct in right frontal white matter Repeat head CT 11/06 without acute intracranial abnormality MRI brain 11/08- chronic changes with some periventricular small vessel ischemic demyelination and old lacunar infarct at junction of R coronal radiata and centrum semiovale MRI brain 11/10- stable exam EEG 11/11- moderate encephalopathy with triphasic waveforms; possible she could have nonconvulsive seizures EEG 11/15- moderate encephalopathy; no focal abnormality. No seizure activity seen Labs: Leukocytosis. Some hypocalcemia. Normal sodium. Ammonia 76 11/06 -> 39 (11/08) -> 33 11/10-> 38 11/15 -> 24 (11/17) LFT elevations- 11/02-11/08- (TBILI mild elevation, mild AST and ALT elevations normal ALKP); subsequently normal values with exception of mild Alk P elevation ABG 11/07- pH 7.34, CO2 37, HCO3 20 -Neurology consulted-appreciate recs -Likely metabolic encephalopathy -Antibiotic therapy changed to Zosyn to avoid possible encephalopathy from Cefepime -Discontinued IV Cerebrex since no seizures on last EEG -Hyperammonemia -Hold Lactulose BID (loose stool from Cdiff) -Hold rifaximin 550mg BID (loose stool from Cdiff) -Monitor ammonia periodically -Supportive care; monitor labs (17) FEN/PPX Plan: Fluids: None at this time Electrolytes: Continue to monitor; replacement per protocol Nutrition: normal diet DVT PPX: Xarelto 20mg daily (Oscar Santos MD R3) Problem Qualifiers (1) Hypertension: Qualified Codes: I10 - Essential (primary) hypertension (2) Atrial fibrillation: Qualified Codes: I48.2 - Chronic atrial fibrillation (3) Sepsis: Qualified Codes: A41.9 - Sepsis, unspecified organism (4) Diabetes mellitus, type II: Qualified Codes: E11.8 - Type 2 diabetes mellitus with unspecified complications (5) UTI (urinary tract infection): (6) Hypothyroidism: Qualified Codes: E03.9 - Hypothyroidism, unspecified Oscar Santos MD R3 Nov 26, 2017 09:26 Markie Shore MD Nov 26, 2017 15:40
[2017-11-26] MEDS: RIVAROXABAN 20 MG TAB PO SCH (09:27)
[2017-11-26] MEDS: LISINOPRIL 20 MG TAB PO SCH (09:28)
[2017-11-26] MEDS: LACTOBACILLUS ACIDOPHILUS TAB PO SCH ×2 (09:28→19:26)
[2017-11-26] MEDS: AMIODARONE 200 MG TAB PO SCH (09:29)
[2017-11-26] MEDS: predniSONE 20 MG TAB PO SCH (09:29)
[2017-11-26] MEDS: VENLAFAXINE HCL XR 75 MG CAP PO SCH (09:29)
[2017-11-26] MEDS: amLODIPine BESYLATE 5 MG TAB PO SCH (09:30)
[2017-11-26] MEDS: HYDROCHLOROTHIAZIDE 25 MG TAB PO SCH (09:30)
[2017-11-26] MEDS: SODIUM CHLORIDE 0.9% FLUSH 10 ML FLUSH IV FLUSH SCH ×2 (09:32→19:27)
--- NOTE | 2017-11-26 10:41 | HHI.DCPOC ---
Discharge Care Plan Diagnosis: (1) Sepsis (2) UTI (urinary tract infection) (3) Clostridium difficile infection Goals to Promote Your Health * To prevent worsening of your condition and complications * To maintain your health at the optimal level Directions to Meet Your Goals Take your medications as prescribed Follow your dietary instruction Follow activity as directed Keep your appointments as scheduled Take your immunizations and boosters as scheduled If your symptoms worsen call your PCP, if no PCP go to Urgent Care Center or Emergency Room Smoking is Dangerous to Your Health. Avoid second hand smoke Call the 24-hour hour crisis hotline for domestic abuse at Oscar Santos MD R3 Nov 26, 2017 10:41
[2017-11-26] MEDS ORDERED: ACETAMINOPHEN/HYDROcodone 325 MG/5 MG TAB PO PRN (11:00)
[2017-11-26] MEDS ORDERED: NEUR300C PO (11:08)
[2017-11-26] MEDS ORDERED: METO-309 PO (11:08)
[2017-11-26] MEDS ORDERED: LACT PO (11:08)
[2017-11-26] MEDS ORDERED: TEMA7.5C9 PO (11:08)
[2017-11-26] MEDS ORDERED: HYDR25TA5 PO (11:08)
[2017-11-26] MEDS ORDERED: VENL75XR PO (11:08)
[2017-11-26] MEDS ORDERED: LISI-515 PO (11:08)
[2017-11-26] MEDS ORDERED: MELA5 PO (11:08)
[2017-11-26] MEDS ORDERED: AMIO200T PO (11:08)
[2017-11-26 12:00] VITALS: BP 152/81; PULSE 79; RESP 17; TEMP 98.2; O2SAT 96
[2017-11-26] MEDS ORDERED: VANC125C3 PO (14:23)
[2017-11-26] MEDS ORDERED: LEVEMIR SQ (14:23)
[2017-11-26] MEDS ORDERED: NOVOLOGSS SQ (14:23)
[2017-11-26] MEDS ORDERED: HYDR-3516 PO (14:23)
[2017-11-26] MEDS ORDERED: AMLO5 PO (14:24)
[2017-11-26] MEDS ORDERED: PRED20 PO (14:26)
[2017-11-26 16:00] VITALS: BP 147/83; PULSE 77; RESP 19; TEMP 98.4; O2SAT 98
[2017-11-26] MEDS: INSULIN DETEMIR 100 UNITS/ML VIAL SQ SCH (19:29)
[2017-11-26 20:00] VITALS: BP 180/84; PULSE 72; RESP 22; TEMP 97.1; O2SAT 97
[2017-11-26] MEDS: TEMAZEPAM 7.5 MG CAP PO PRN (21:01)
[2017-11-26] MEDS: MELATONIN 5 MG TAB PO PRN (23:42)
[2017-11-27] VITALS: BP 150/78; PULSE 71; RESP 20; TEMP 97.1; O2SAT 96
[2017-11-27] MEDS: ACETAMINOPHEN/HYDROcodone 325 MG/5 MG TAB PO PRN ×3 (00:01→21:51)
[2017-11-27] MEDS: VANCOMYCIN 500 MG VIAL (FOR ORAL USE ONLY) PO SCH ×4 (04:04→21:49)
[2017-11-27] MEDS: METOPROLOL TARTRATE 50 MG TAB PO SCH ×3 (04:46→21:48)
[2017-11-27] MEDS: LEVOTHYROXINE SODIUM 50 MCG TAB PO SCH (04:46)
[2017-11-27] MEDS: GABAPENTIN 300 MG CAP PO SCH ×3 (04:47→21:49)
[2017-11-27 05:02] VITALS: BP 154/81; PULSE 76; RESP 18; TEMP 97.2; O2SAT 98
[2017-11-27 08:00] VITALS: BP 162/83; PULSE 61; RESP 18; TEMP 97.3; O2SAT 100
[2017-11-27] MEDS: LACTOBACILLUS ACIDOPHILUS TAB PO SCH ×2 (08:37→21:49)
[2017-11-27] MEDS: AMIODARONE 200 MG TAB PO SCH (08:37)
[2017-11-27] MEDS: HYDROCHLOROTHIAZIDE 25 MG TAB PO SCH (08:37)
[2017-11-27] MEDS: VENLAFAXINE HCL XR 75 MG CAP PO SCH (08:37)
[2017-11-27] MEDS: LISINOPRIL 20 MG TAB PO SCH (08:38)
[2017-11-27] MEDS: RIVAROXABAN 20 MG TAB PO SCH (08:38)
[2017-11-27] MEDS: amLODIPine BESYLATE 5 MG TAB PO SCH (08:38)
[2017-11-27] MEDS: predniSONE 20 MG TAB PO SCH (08:38)
[2017-11-27] MEDS: SODIUM CHLORIDE 0.9% FLUSH 10 ML FLUSH IV FLUSH SCH ×2 (08:41→22:01)
[2017-11-27] MEDS: INSULIN ASPART SUPPLEMENTAL SCALE SQ SCH ×4 (08:41→21:48)
--- NOTE | 2017-11-27 09:30 | HHI.FPPN ---
Subjective Remarks Patient interviewed with at the bedside. Patient states she is concerned about going home because she is having difficulty standing. However, after further questioning she and are aware they will be going to a [facility] facility. The is still concerned if they will be able to handle her level of care there. The patient had 2 bowel movements last night , somewhat formed. She denies fever, abdominal pain, nausea, vomiting. She continues to work well with physical therapy and Occupational Therapy. (Monico John MD R3) Objective Vitals Vital Signs Date Time Temp Pulse Resp B/P (MAP) Pulse Ox O2 Delivery O2 Flow Rate FiO2 11/27/17 08:00 97.3 61 18 162/83 (109) 100 11/27/17 05:47 20 11/27/17 05:02 97.2 76 18 154/81 (105) 98 11/27/17 00:00 97.1 71 20 150/78 (102) 96 11/26/17 20:00 97.1 72 22 180/84 (116) 97 11/26/17 16:00 98.4 77 19 147/83 (104) 98 11/26/17 12:00 98.2 79 17 152/81 (104) 96 I/O 11/26/17 11/26/17 11/26/17 11/27/17 11/27/17 11/27/17 07:00 15:00 23:00 07:00 15:00 23:00 Intake Total 360 ml 875 ml 480 ml Output Total 800 ml 1800 ml 400 ml Balance -440 ml -925 ml 80 ml Intake Oral 360 ml 875 ml 480 ml Output Urine Total 800 ml 1800 ml 400 ml # Voids 2 1 2 # Bowel Movements 2 2 4 (Monico John MD R3) Result Diagram: 11/23/17 0516 11/24/17 0506 Objective Remarks GENERAL: No acute distress Eyes: EOM grossly intact. Skin: Left foot without erythema or warmth to touch. Buttock skin tears not visualized CARDIOVASCULAR: normal rate; 3/6 murmur. Normal distal LE perfusion bilaterally RESPIRATORY: On room air vs 2L O2 via NC. Normal rate. CTAB GASTROINTESTINAL: Abdomen soft, distended. Normal bowel sounds. MUSCULOSKELETAL: Bilateral LE edema; stable with prior exam. No calf asymmetry or pain to palpation. Left foot with continued pain to palpation on dorsum of foot. Dorsiflexion limited with patient effort but normal passive range of motion NEUROLOGICAL: No cranial nerve or peripheral motor/sensory deficits (Monico John MD R3) A/P Assessment and Plan Patient is a 72-year-old admitted due to septic shock from urinary source; patient also with sclerotic bony lesions concerning for colon cancer metastasis. Due to respiratory decline/multiorgan failure, patient on ventilator 11/02. Critical care, Nephrology, and infectious disease previously consulted. Patient extubated 11/05; has had altered mental status since extubation. Patient since has improved in terms of her mental status. Patient developed Cdiff is being treated with oral Vancomycin. She is improving currently and receiving PT and OT ; she is deemed stable for discharge to a [facility] facility. Discharge Planning Anticipate discharge to SNF today (Monico John MD R3) Attending Attestation Medical rounds performed with Dr John Patient seen and examined Agree with contents of above note In volved with medical decisions See Orders (Jefferson Ambrosio MD) Problem List: (1) Weakness ICD Codes: R53.1 - Weakness Status: Acute Plan: -PT consulted -Planned discharge to SNF; PT/OT recommended -ST- signed off -OT- recommend rehab (2) Hypertension ICD Codes: I10 - Essential (primary) hypertension Status: Chronic Plan: Persistent, continue medications Amlodipine 5mg daily -Continue Metoprolol 50mg q8 hrs -Continue HCTZ 25mg daily -Continue Lisinopril 40mg daily -Clonidine 0.1mg PRN q6hrs BP 180/100 -Vasotec 1.25mg q8hrs PRN BP >160/90 (3) Clostridium difficile infection ICD Codes: B96.89 - Other specified bacterial agents as the cause of diseases classified elsewhere Status: Acute Plan: Diarrhea improved. Starting to have formed stool. C diff toxin PCR + -Continue oral vancomycin 125mg q6hrs PO (11/10- 12/03/2017) (4) Shortness of breath ICD Codes: R06.02 - Shortness of breath Status: Resolved Plan: Improved. On DVT PPX. Lungs reassuring to auscultation. -Discussed with patient that she should let provider know if this recurs but that atelectasis is suspected; will plan to get CXR if symptoms recur -She agrees to use spirometry multiple times a day (5) Atrial fibrillation ICD Codes: I48.91 - Unspecified atrial fibrillation Status: Chronic Plan: Impression: patient initially placed on amiodarone drip and given digoxin for afib with RVR on admission. Patient currently with normal rate/ sinus rhythm. Patient with reported history of moderate mitral stenosis and mild /moderate aortic stenosis Echocardiogram- moderate concentric LVF. EF 70%. Aortic sclerosis present. Moderate /severe pulmonary HTN (60-70mmHg) -Continue Xarelto 20mg daily due to improvement in renal function -Amiodarone down-titrated from 200mg daily to 100mg daily -Continue Metoprolol 50mg q8hrs for BP control (6) Sepsis ICD Codes: A41.9 - Sepsis, unspecified organism Status: Resolved Plan: Impression: Septic shock on admission; labs suggestive of multiorgan dysfunction. Patient initially required >4 L crystalloids and was placed on pressors. E coli from urinary source. Patient developed respiratory failure and required intubation; possible concern for aspiration also. Subsequently, patient found to have C diff colitis Labs: Cr: 2.10 (10/31) -> 0.88 (11/23) WBC: 15.8 (10/31) -> 6.2 (11/23) Lactic acid: 3 (10/31) -> 3.3 (11/02) -Continue antibiotic therapy -Infectious disease consulted -Continue Vancomycin 125mg PO q 6hrs (11/10-12/03) -Monitor cultures, temps -Continue to monitor CBC, BMP, urine output Antibiotic history: s/p Meropenem 2gm q12hrs IV -s/p Zosyn 2.5mg q6hrs (10/31-11/02) -s/p Tobramycin IV x1 11/02 -s/p Rocephin 11/03-11/06 -s/p Cefepime 2gm IV BID -s/p Levofloxacin 11/10 -s/p Fluconazole 100mg daily (11/14-11/20) -s/p Zosyn (11/10- 11/18) Cultures: -Urine culture 11/12- Debra Glabrata -11/10- C diff PCR + 11/05 -Sputum culture negative x48hrs 11/02- blood x2- negative x5 days 10/31- blood x2 taylor sensitive E Coli 10/31- urine- taylor sensitive E coli (7) ASH (acute kidney injury) ICD Codes: N17.9 - Acute kidney failure, unspecified Status: Resolved Plan: Impression: renal injury presumed secondary to septic shock/multiorgan dysfunction Cr- 2.12 on admission-> 2.59 (11/02) -> 3.53 (11/04) -> downtrended to WNL Nephrology and Urology previously consulted; subsequently signed off CT abdomen/pelvis- moderate hydronephrosis w/ perinephric stranding similar to . Interval development of mild anasarca. F/U US with continued mild hydronephrosis 11/07 -Continue to monitor (8) Elevated LFTs ICD Codes: R79.89 - Other specified abnormal findings of blood chemistry Status: Resolved Plan: Impression: Patient with normal LFT's on admission-> mild transaminase elevations: (11/02- TBILI 1.7, AST 122, ALT 62, ALKP 54 -> 11/07- TBILI 1.4, AST 77, ALT 122, ALKP65) Suspect likely related to sepsis/organ injury Labs: Ceruloplasmin 37, [id number] 225, Hep panel negative JELANI+; titer >1:1280; speckled pattern Liver US per CC- heterogenous liver suggestive of hepatocellular disease such as cirrhosis. Small ascites; not recently changed since last CT. Sludge in gallbladder; no definite gallstones. Mild splenomegaly. 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 [id number]. s/p Zeloda 08/2016. Abdomen/Pelvis CT 10/31/17: Innumerable small sclerotic lesions in the skeleton, most characteristic of sclerotic bony metastatic disease -Dr. Candelario consulted -recent bone scan w/o uptake; reassuring regarding sclerotic lesions -plan for PET as outpatient (10) Diabetes mellitus, type II ICD Codes: E11.9 - Type 2 diabetes mellitus Status: Chronic Plan: Impression: On home Lantus 10 U HS. Borderline low blood glucose prior to administration 11/19; suspect lower glucose values due to less oral intake -Low dose SSI -Continue to monitor blood sugar -Continue Levemir 6 U HS (11) UTI (urinary tract infection) ICD Codes: N39.0 - Urinary tract infection, site not specified Status: Resolved Plan: Impression: UA with large leukocyte esterase, innumerable WBCs, many WBC clumps. Urine culture and blood cultures 10/31 with pansensitive E Coli (12) Hypothyroidism ICD Codes: E03.9 - Hypothyroidism Status: Chronic Plan: Continue home Levothyroxine (13) Positive JELANI (antinuclear antibody) ICD Codes: R76.8 - Other specified abnormal immunological findings in serum Plan: JELANI 1: 1280. has speckled pattern and markedly positive. unclear at this point what the significance is. Subsequent rheumatologic labs w/o abnormalities. (14) Pain in left foot ICD Codes: M79.672 - Pain in left foot Status: Acute Plan: Impression: Continued left foot pain on dorsum of foot; suspect some neurologic component. Also, some erythema 11/20; erythema nodosum initially suspected. Associated with some bilateral LE swelling. High JELANI but does not appear joint related -Will continue Prednisone 40mg daily for possible rheumatologic etiology -Continue Gabapentin 600mg TID -Will plan to recommend rheumatology f/u at discharge (15) Skin tear Status: Acute Plan: Impression: Buttock skin tears associated with frequent diarrhea -Wound care consulted -cleanse with Remedy barrier wipes to remove stool -Apply Calazime skin protectant past to bilateral buttocks in thick layer BID -Turn patient q2hrs and as needed to offload -Use Ultrasorb pad; do not use cloth pads (16) Altered mental state ICD Codes: R41.82 - Altered mental status, unspecified Status: Resolved Plan: Impression: Persistent lack of orientation after extubation 11/05. No focal deficits. History of TIA. Suspect multifactorial. off of sedation since extubation. Suspect possible hepatic encephalopathy as component plus may have been uremic Imaging: CT head 10/31 on admission (ordered due to confusion on admission; suspected secondary to sepsis) w/o acute findings. Remote lacunar infarct in right frontal white matter Repeat head CT 11/06 without acute intracranial abnormality MRI brain 11/08- chronic changes with some periventricular small vessel ischemic demyelination and old lacunar infarct at junction of R coronal radiata and centrum semiovale MRI brain 11/10- stable exam EEG 11/11- moderate encephalopathy with triphasic waveforms; possible she could have nonconvulsive seizures EEG 11/15- moderate encephalopathy; no focal abnormality. No seizure activity seen Labs: Leukocytosis. Some hypocalcemia. Normal sodium. Ammonia 76 11/06 -> 39 (11/08) -> 33 11/10-> 38 11/15 -> 24 (11/17) LFT elevations- 11/02-11/08- (TBILI mild elevation, mild AST and ALT elevations normal ALKP); subsequently normal values with exception of mild Alk P elevation ABG 11/07- pH 7.34, CO2 37, HCO3 20 -Neurology consulted-appreciate recs -Likely metabolic encephalopathy -Antibiotic therapy changed to Zosyn to avoid possible encephalopathy from Cefepime -Discontinued IV Cerebrex since no seizures on last EEG -Hyperammonemia -Hold Lactulose BID (loose stool from Cdiff) -Hold rifaximin 550mg BID (loose stool from Cdiff) -Monitor ammonia periodically -Supportive care; monitor labs (17) FEN/PPX Plan: Fluids: None at this time Electrolytes: Continue to monitor; replacement per protocol Nutrition: normal diet DVT PPX: Xarelto 20mg daily (Monico John MD R3) Problem Qualifiers (1) Hypertension: Qualified Codes: I10 - Essential (primary) hypertension (2) Atrial fibrillation: Qualified Codes: I48.2 - Chronic atrial fibrillation (3) Sepsis: Qualified Codes: A41.9 - Sepsis, unspecified organism (4) Diabetes mellitus, type II: Qualified Codes: E11.8 - Type 2 diabetes mellitus with unspecified complications (5) UTI (urinary tract infection): (6) Hypothyroidism: Qualified Codes: E03.9 - Hypothyroidism, unspecified Monico John MD R3 Nov 27, 2017 09:30 Jefferson Ambrosio MD Nov 27, 2017 15:35
[2017-11-27 12:00] VITALS: BP 129/74; PULSE 63; RESP 19; TEMP 97.3; O2SAT 96
--- NOTE | 2017-11-27 15:46 | RADRPT ---
EXAM DATE: 11/27/2017 3:30 PM EDT AGE/SEX: 72 years / Female INDICATIONS: Pain CLINICAL DATA: This is the patient's initial encounter. Patient reports that signs and symptoms have been present for 1 day and indicates a pain score of 3/10. MEDICAL/SURGICAL HISTORY: None. None. COMPARISON: No prior exams available for comparison. FINDINGS: No definite fractures, or dislocations are identified. No definite lytic or sclerotic les ion is seen. Slight osteopenia is seen. 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 Small calcaneal spur is present at the attachment site of the plantar aponeu rosis. CONCLUSION: Chronic changes and no definite fracture for technique. Electronically signed by: Ramona Turner MD 11/27/2017 3:44 PM EDT
[2017-11-27 16:00] VITALS: BP 126/89; PULSE 66; RESP 19; TEMP 96.6; O2SAT 96
[2017-11-27 20:00] VITALS: BP 141/66; PULSE 58; RESP 17; TEMP 97.3; O2SAT 97
[2017-11-27] MEDS: INSULIN DETEMIR 100 UNITS/ML VIAL SQ SCH (22:00)
[2017-11-28] VITALS: BP 152/72; PULSE 77; RESP 18; TEMP 97.8; O2SAT 99
[2017-11-28] MEDS: TEMAZEPAM 7.5 MG CAP PO PRN (00:03)
[2017-11-28] MEDS: GABAPENTIN 300 MG CAP PO SCH (04:43)
[2017-11-28] MEDS: LEVOTHYROXINE SODIUM 50 MCG TAB PO SCH (04:43)
[2017-11-28] MEDS: ACETAMINOPHEN/HYDROcodone 325 MG/5 MG TAB PO PRN ×2 (04:44→08:45)
[2017-11-28] MEDS: METOPROLOL TARTRATE 50 MG TAB PO SCH (04:44)
[2017-11-28] MEDS: VANCOMYCIN 500 MG VIAL (FOR ORAL USE ONLY) PO SCH ×2 (04:46→08:37)
[2017-11-28 04:51] VITALS: BP 157/89; PULSE 76
[2017-11-28 08:00] VITALS: BP 168/78; PULSE 60; RESP 18; TEMP 97.1; O2SAT 98
[2017-11-28] MEDS: VENLAFAXINE HCL XR 75 MG CAP PO SCH (08:36)
[2017-11-28] MEDS: LACTOBACILLUS ACIDOPHILUS TAB PO SCH (08:36)
[2017-11-28] MEDS: HYDROCHLOROTHIAZIDE 25 MG TAB PO SCH (08:36)
[2017-11-28] MEDS: LISINOPRIL 20 MG TAB PO SCH (08:36)
[2017-11-28] MEDS: AMIODARONE 200 MG TAB PO SCH (08:37)
[2017-11-28] MEDS: amLODIPine BESYLATE 5 MG TAB PO SCH (08:37)
[2017-11-28] MEDS: predniSONE 20 MG TAB PO SCH (08:37)
[2017-11-28] MEDS: RIVAROXABAN 20 MG TAB PO SCH (08:37)
[2017-11-28] MEDS: INSULIN ASPART SUPPLEMENTAL SCALE SQ SCH (08:38)
[2017-11-28] MEDS: SODIUM CHLORIDE 0.9% FLUSH 10 ML FLUSH IV FLUSH SCH (08:38)
--- NOTE | 2017-11-28 08:54 | HHI.FPPN ---
Subjective Remarks Patient states she is doing about the same as yesterday. is at the bedside. 7 recorded bowel movements in the past 24 hours. Patient and say they are mostly formed and "not diarrhea." and patient are comfortable going to a [facility] facility today. [facility]. She denies abdominal pain, fever, chills. Her left foot is still hurting. (Monico John MD R3) Objective Vitals Vital Signs Date Time Temp Pulse Resp B/P (MAP) Pulse Ox O2 Delivery O2 Flow Rate FiO2 11/28/17 08:00 97.1 60 18 168/78 (108) 98 11/28/17 04:51 76 157/89 (111) 11/28/17 00:00 97.8 77 18 152/72 (98) 99 11/27/17 20:00 97.3 58 17 141/66 (91) 97 11/27/17 16:00 96.6 66 19 126/89 (101) 96 11/27/17 12:00 97.3 63 19 129/74 (92) 96 I/O 11/27/17 11/27/17 11/27/17 11/28/17 11/28/17 11/28/17 07:00 15:00 23:00 07:00 15:00 23:00 Intake Total 480 ml 1260 ml 240 ml Output Total 400 ml 1000 ml 2000 ml Balance 80 ml 260 ml -1760 ml Intake Oral 480 ml 1260 ml 240 ml Output Urine Total 400 ml 1000 ml 2000 ml # Voids 2 # Bowel Movements 4 3 4 (Monico John MD R3) Result Diagram: 11/24/17 0506 Objective Remarks GENERAL: No acute distress Eyes: EOM grossly intact. Skin: Left foot without erythema or warmth to touch. Buttock skin tears not visualized CARDIOVASCULAR: normal rate; 3/6 murmur. Normal distal LE perfusion bilaterally RESPIRATORY: On room air vs 2L O2 via NC. Normal rate. CTAB GASTROINTESTINAL: Abdomen soft, distended. Normal bowel sounds. MUSCULOSKELETAL: Bilateral LE edema; stable with prior exam. No calf asymmetry or pain to palpation. Left foot with continued pain to palpation on dorsum of foot. Dorsiflexion limited with patient effort but normal passive range of motion NEUROLOGICAL: No cranial nerve or peripheral motor/sensory deficits (Monico John MD R3) A/P Assessment and Plan Patient is a 72-year-old admitted due to septic shock from urinary source; patient also with sclerotic bony lesions concerning for colon cancer metastasis. Due to respiratory decline/multiorgan failure, patient on ventilator 11/02. Critical care, Nephrology, and infectious disease previously consulted. Patient extubated 11/05; has had altered mental status since extubation. Patient since has improved in terms of her mental status. Patient developed Cdiff is being treated with oral Vancomycin. She is improving currently and receiving PT and OT ; she is deemed stable for discharge to a [facility] facility. Discharge Planning Anticipate discharge to SNF today (Monico John MD R3) Attending Attestation rounds with Dr John were performed this am EMR reviewed Patient seen and examined Agree with assessment and plan I approve of the contents of this note I assisted with all medical decision making See Orders patient stable for discharge (Jefferson Ambrosio MD) Problem List: (1) Clostridium difficile infection ICD Codes: B96.89 - Other specified bacterial agents as the cause of diseases classified elsewhere Status: Acute Plan: Diarrhea improved. Starting to have formed stool. 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 Candelario, appreciate recommendations Per oncology: Recent CT showed widespread sclerotic bone lesions; however, bone scan did not show any uptake. She has no significant bone pain. The lesion was too small for biopsy. She could not complete the PET/CT last week due to weakness. She will need a PET scan once discharged from the hospital for further evaluation. Imaging: Abdomen/Pelvis CT 10/31/17: Innumerable small sclerotic lesions in the skeleton, most characteristic of sclerotic bony metastatic disease. Pt with history of colon cancer (3) Weakness ICD Codes: R53.1 - Weakness Status: Acute Plan: -See plan above -PT consulted Imaging: Head CT 10/31/17: with no acute intracranial findings. Left sphenoid sinusitis. Remote lacunar infarct right frontal white matter. (4) Diabetes mellitus, type II ICD Codes: E11.9 - Type 2 diabetes mellitus Status: Chronic Plan: Impression: On home Lantus 10 U HS. Borderline low blood glucose prior to administration 11/19; suspect lower glucose values due to less oral intake -Low dose SSI -Continue to monitor blood sugar -Continue Levemir 6 U HS (5) Hypertension ICD Codes: I10 - Essential (primary) hypertension Status: Chronic Plan: Persistent, continue medications Amlodipine 5mg daily- likely contributing to lower ext edema -Continue Metoprolol 50mg q8 hrs -Continue HCTZ 25mg daily -Continue Lisinopril 40mg daily -Clonidine 0.1mg PRN q6hrs BP 180/100 -Vasotec 1.25mg q8hrs PRN BP >160/90 (6) Hypothyroidism ICD Codes: E03.9 - Hypothyroidism Status: Chronic Plan: Continue home Levothyroxine (7) Atrial fibrillation ICD Codes: I48.91 - Unspecified atrial fibrillation Status: Chronic Plan: Impression: patient initially placed on amiodarone drip and given digoxin for afib with RVR on admission. Patient currently with normal rate/ sinus rhythm. Patient with reported history of moderate mitral stenosis and mild /moderate aortic stenosis Echocardiogram- moderate concentric LVF. EF 70%. Aortic sclerosis present. Moderate /severe pulmonary HTN (60-70mmHg) -Continue Xarelto 20mg daily due to improvement in renal function -Amiodarone down-titrated from 200mg daily to 100mg daily -Continue Metoprolol 50mg q8hrs for BP control (8) FEN/PPX Plan: Fluid: tolerating PO Electrolytes: Continue to monitor. Nutrition: Diabetic diet DVT PPX: xarelto (Monico John MD R3) Problem Qualifiers (1) Diabetes mellitus, type II: Qualified Codes: E11.8 - Type 2 diabetes mellitus with unspecified complications (2) Hypertension: Qualified Codes: I10 - Essential (primary) hypertension (3) Hypothyroidism: Qualified Codes: E03.9 - Hypothyroidism, unspecified (4) Atrial fibrillation: Qualified Codes: I48.2 - Chronic atrial fibrillation Monico John MD R3 Nov 28, 2017 08:54 Jefferson Ambrosio MD Nov 29, 2017 13:58
--- NOTE | 2017-11-28 09:15 | HHI.DS ---
Discharge Summary Admission Date October 31, 2017 at 14:45 Discharge Date: Nov 28, 2017 Admitting Diagnosis (1) Sepsis Diagnosis: Principal Plan: Plan: Impression: Septic shock on admission; labs suggestive of multiorgan dysfunction. Patient initially required >4 L crystalloids and was placed on pressors. E coli from urinary source. Patient developed respiratory failure and required intubation; possible concern for aspiration also. Subsequently, patient found to have C diff colitis Labs: Cr: 2.10 (10/31)-> 3.53 (11/04) -> 2.84 (11/05) -> 2.29-> 1.81 (11/07) -> 1.48 (11/08 ) -> 1.24 (11/11) -> 0.92 (11/13) -> 0.74 (11/15) WBC: 15.8 (10/31)-> 2.1 (11/02)-> 20.3 (11/03) -> 17.7 (11/04) -> 22.2 (11/06) -> 25 (11/07) -> 21.9 (11/08) -> 17.7 (11/11)-> 15.3 (11/13)-> 12.2 (11/14) -> 9.7 (11/15) Lactic acid: 3 (10/31) -> 3.3 (11/02) antibiotic history -Infectious disease consulted -Fluconazole 100mg daily -Zosyn -Vancomycin 125mg PO q 6hrs 11/10 -Monitor cultures, temps -Continue to monitor CBC, BMP, urine output Antibiotic history: s/p Meropenem 2gm q12hrs IV -s/p Zosyn 2.5mg q6hrs (10/31-11/02) -s/p Tobramycin IV x1 11/02 -s/p Rocephin 11/03-11/06 -s/p Cefepime 2gm IV BID -s/p Levofloxacin 11/10 Cultures: -Urine culture 11/12- Debra Glabrata -11/10- C diff PCR + 11/05 -Sputum culture negative x48hrs 10/31- blood x2 taylor sensitive E Coli 10/31- urine- taylor sensitive E coli 11/02- blood x2- negative x5 days ICD Codes: A41.9 - Sepsis, unspecified organism Status: Resolved (2) Clostridium difficile infection Diagnosis: Secondary Plan: Diarrhea improved. Starting to have formed stool. C diff toxin PCR + -Continue oral vancomycin 125mg q6hrs PO (11/10- 12/03/2017) ICD Codes: B96.89 - Other specified bacterial agents as the cause of diseases classified elsewhere Status: Acute (3) Bony metastasis Diagnosis: Secondary Plan: Oncology consulted, Pt known to Dr. Candelario, appreciate recommendations Per oncology: Recent CT showed widespread sclerotic bone lesions; however, bone scan did not show any uptake. She has no significant bone pain. The lesion was too small for biopsy. She could not complete the PET/CT last week due to weakness. She will need a PET scan once discharged from the hospital for further evaluation. Imaging: Abdomen/Pelvis CT 10/31/17: Innumerable small sclerotic lesions in the skeleton, most characteristic of sclerotic bony metastatic disease. Pt with history of colon cancer ICD Codes: C79.51 - Secondary malignant neoplasm of bone Status: Acute (4) Weakness Diagnosis: Secondary Plan: -See plan above -PT consulted Imaging: Head CT 10/31/17: with no acute intracranial findings. Left sphenoid sinusitis. Remote lacunar infarct right frontal white matter. ICD Codes: R53.1 - Weakness Status: Acute (5) Diabetes mellitus, type II Diagnosis: Secondary Plan: Impression: On home Lantus 10 U HS. Borderline low blood glucose prior to administration 11/19; suspect lower glucose values due to less oral intake -Low dose SSI -Continue to monitor blood sugar -Continue Levemir 6 U HS ICD Codes: E11.9 - Type 2 diabetes mellitus Status: Chronic (6) Hypertension Diagnosis: Secondary Plan: Persistent, continue medications Amlodipine 5mg daily- likely contributing to lower ext edema -Continue Metoprolol 50mg q8 hrs -Continue HCTZ 25mg daily -Continue Lisinopril 40mg daily -Clonidine 0.1mg PRN q6hrs BP 180/100 -Vasotec 1.25mg q8hrs PRN BP >160/90 ICD Codes: I10 - Essential (primary) hypertension Status: Chronic (7) Hypothyroidism Diagnosis: Secondary Plan: Continue home Levothyroxine ICD Codes: E03.9 - Hypothyroidism Status: Chronic (8) Atrial fibrillation Diagnosis: Secondary Plan: Impression: patient initially placed on amiodarone drip and given digoxin for afib with RVR on admission. Patient currently with normal rate/ sinus rhythm. Patient with reported history of moderate mitral stenosis and mild /moderate aortic stenosis Echocardiogram- moderate concentric LVF. EF 70%. Aortic sclerosis present. Moderate /severe pulmonary HTN (60-70mmHg) -Continue Xarelto 20mg daily due to improvement in renal function -Amiodarone down-titrated from 200mg daily to 100mg daily -Continue Metoprolol 50mg q8hrs for BP control ICD Codes: I48.91 - Unspecified atrial fibrillation Status: Chronic (9) FEN/PPX Diagnosis: Secondary Plan: Fluid: tolerating PO Electrolytes: Continue to monitor. Nutrition: Diabetic diet DVT PPX: xarelto Consultants Infectious disease Critical care Oncology Nephrology Gastroenterology Neurology Wound care Palliative Procedures Intubation Central line Brief History Pt is a 72 year old with past medical history significant for colon cancer, type 2 diabetes, hypertension, hyperlipidemia, atrial fibrillation (status post ablation 2) presenting to the ED due to weakness, found to have a UTI meeting sepsis criteria. She has not been feeling well over the past 2-3 days. She has had subjective fevers and chills. She has been getting progressively more weak. She has fallen several times onto her bottom. No loss of consciousness. This afternoon she was not able to walk. This morning she became more confused and had a difficult time finding words. She said that she did not want to go to the baby when her told her she would have to go to the hospital and she said that her pineapple was hurting her when she was trying to indicate that she was having back pain. She has not had anything to eat or drink for 30 hours prior to admission. She was scheduled to have a CT scan yesterday that was ordered by her oncologist, Dr. Candelario, and her reports that she was not to have any carbohydrates before this imaging study was done. She was unable to tolerate her medications and vomited after taking them earlier today. Yesterday around 11 AM was the last time she took her medication. She notes that she has noticed burning with urination over the past 2 days. She has been having regular bowel movements. Her recently traveled out of town to [facility] and returned last Saturday. He is present with her in the ED. CBC/BMP: 11/24/17 0506 Imaging Last Impressions Foot X-Ray 11/27/17 0000 Signed Impressions: CONCLUSION: Chronic changes and no definite fracture for technique. Chest X-Ray 11/15/17 0000 Signed Impressions: CONCLUSION: No significant interval change Brain MRI 11/10/17 0000 Signed Impressions: Service Date/Time: Friday, November 10, 2017 14:00 - CONCLUSION: 1. Stable examination. Specifically, no acute infarction, hemorrhage or mass. 2. Senescent changes with periventricular white matter ischemic demyelination and focal lacunar type infarct in the right centrum semiovale. César Caots MD Liver Ultrasound 11/07/17 0000 Signed Impressions: Service Date/Time: October 08:05 - CONCLUSION: 1. Heterogeneous liver suggestive of hepatocellular disease such as cirrhosis. There is a small amount of ascites surrounding the liver. This is not significantly changed compared to the recent CT scan of the abdomen. 2. Sludge in the gallbladder. No definite gallstones or biliary tract obstruction. 3. Mild splenomegaly. 4. Mild hydronephrosis of the right collecting system. Markie Crabtree MD Head CT 11/06/17 0000 Signed Impressions: Service Date/Time: Monday, November 06, 2017 10:03 - CONCLUSION: 1. No acute intracranial abnormality or significant interval change. César Coats MD Abdomen X-Ray 11/04/17 0000 Signed Impressions: Service Date/Time: Saturday, November 04, 2017 17:50 - CONCLUSION: Nonspecific intestinal gas pattern Jose Wright MD Abdomen/Pelvis CT 10/31/17 1321 Signed Impressions: Service Date/Time: October 13:58 - CONCLUSION: 1. Development of innumerable small sclerotic lesions in the skeleton most characteristic of sclerotic bony metastatic disease. There is a reported history of malignancy. 2. Hepatomegaly with development of mild ascites. 3. Persistent moderate hydronephrosis with perinephric stranding similar to February 2017. Interval development of mild anasarca. 4. Gallbladder sludge. Gallo catheter in bladder. Samuel Lin MD Lung Scan-V Nuclear Medicine 10/31/17 0000 Signed Impressions: Service Date/Time: October 15:00 - CONCLUSION: Low probability scan for pulmonary embolism Jose Wright MD PE at Discharge GENERAL: No acute distress Eyes: EOM grossly intact. Skin: Left foot without erythema or warmth to touch. Buttock skin tears not visualized CARDIOVASCULAR: normal rate; 3/6 murmur. Normal distal LE perfusion bilaterally RESPIRATORY: On room air vs 2L O2 via NC. Normal rate. CTAB GASTROINTESTINAL: Abdomen soft, distended. Normal bowel sounds. MUSCULOSKELETAL: Bilateral LE edema; stable with prior exam. No calf asymmetry or pain to palpation. Left foot with continued pain to palpation on dorsum of foot. Dorsiflexion limited with patient effort but normal passive range of motion NEUROLOGICAL: No cranial nerve or peripheral motor/sensory deficits Hospital Course Patient has a significant past medical history of colon cancer, atrial fibrillation, type 2 diabetes. She was diagnosed with sepsis secondary to UTI on admission. She received multiple boluses of IV fluids but remained hypotensive and was in atrial fibrillation with RVR. She was subsequently diagnosed with septic shock and managed by critical care. She remains critically ill for multiple days (approximately 12 days) eventually requiring intubation and pressor support. Infectious disease was consulted for antibiotic management. Multiple other specialists were involved in the care of the patient including: Oncology-for concern of bony metastasis given history of colon cancer. Per oncology: "Recent CT showed widespread sclerotic bone lesions; however, bone scan did not show any uptake. She has no significant bone pain. The lesion was too small for biopsy. She could not complete the PET/CT last week due to weakness. She will need a PET scan once discharged from the hospital for further evaluation." Nephrology for AK I which resolved. Neurology for altered mental status. Neurology diagnosed the patient with metabolic encephalopathy which was likely multifactorial secondary to renal failure,SIRS, potentially medication related secondary to cefepime. On discharge, the patient was back to her baseline mentation. Infectious disease: Infectious disease help to coordinate antibiotic management throughout the hospital stay. She was eventually discharged with oral vancomycin per infectious disease recommendations for the length of time mentioned above. Wound care: Per wound care notes-"1.Please cleanse buttock and labia area with Remedy barrier wipes to remove stool gently from skin. Apply Calazime skin protectant paste to bilateral buttocks and labia area in thick layer BID and PRN covering open partial thickness wounds to the bilateral inner buttock area. 2.Please turn patient every 2 hours and PRN for comfort and offloading vaishnavi prominences. 3. Only use ultra sorb pad for incontinence management, DO NOT use cloth pads." Pt Condition on Discharge: Stable Discharge Disposition: Discharge to SNF Discharge Instructions DIET: Follow Instructions for: Diabetic Diet Activities you can perform: See Additionl Instruction Other Activity Instructions: Please follow Physical therapy recommendations Follow up Referrals: Oncology/Hematology - 1 Week with Sly Candelario MD PCP Follow-up - 1 Week with Sheldon Dumont MD R2 Rheumatology - 2 Weeks New Orders: Occupational Therapy - Daily PET, WHOLE BODY - 1 Week Physical Therapy - Daily New Medications: Vancomycin (Vancomycin) 125 Mg Cap 125 MG PO QID for Infection, #28 CAP 0 Refills Amiodarone (Amiodarone) 200 Mg Tab 100 MG PO DAILY, #30 TAB Amlodipine (Norvasc) 5 Mg Tab 5 MG PO DAILY, #30 TAB Gabapentin (Neurontin) 300 Mg Cap 600 MG PO Q8HR, #90 CAP Hydrochlorothiazide (Hydrochlorothiazide) 25 Mg Tab 25 MG PO DAILY, #30 TAB Hydrocodone/Acetaminophen (Hydrocodone-Acetamin 5-325 mg) 5 Mg-325 Mg Tablet 1 TAB PO Q4H PRN for PAIN GREATER THAN 5, #20 Insulin Aspart Inj (Novolog Inj) 100 Unit/Ml Inj 1 INJECTION SQ ACHS SLIDING SCALE, #1 INJECTION Insulin Detemir Inj (Levemir Inj) 1,000 unit/ 10 ML Vial 6 UNITS SQ HS, #1 INJECTION Do not mix with any other Insulin. Lactobacillus Acidophilus (Acidophilus/l-Sporogenes) 35 Million Cell-25 Million Cell Tab 1 TAB PO Q12HR, #30 TAB Lisinopril (Lisinopril) 20 Mg Tab 40 MG PO DAILY, #60 TAB Melatonin (Melatonin) 5 Mg Tab 10 MG PO HS PRN for INSOMNIA, #30 TAB Metoprolol Tartrate (Lopressor) 50 Mg Tab 50 MG PO Q8HR, #30 TAB Prednisone (Prednisone) 20 Mg Tab 40 MG PO DAILY, #6 TAB Temazepam (Restoril) 7.5 Mg Cap 7.5 MG PO HS PRN for INSOMNIA, #30 CAP Venlafaxine ER 24 HR (Effexor XR 24 HR) 75 Mg Cap 150 MG PO DAILY, #60 CAP Continued Medications: Aspirin DR (Adult Aspirin EC Low Strength) 81 Mg Tabec 162 MG PO DAILY for Stroke Prevention for 30 Days, #30 TAB 1 Refill Commode 3-in-1 (Commode 3-in-1) 1 Mis Mis EA .ROUTE DIRECTED, #1 0 Refills Diltiazem CD 24 HR (Cardizem CD 24 HR) 240 Mg Caper 240 MG PO DAILY for Blood Pressure Management for 30 Days, #30 CAP 1 Refill Fluoxetine (Fluoxetine) 20 Mg Capsule 20 MG PO DAILY for Depression Control for 30 Days, #30 CAP 1 Refill Levothyroxine (Levothyroxine) 50 Mcg Tab 50 MCG PO DAILY for Thyroid for 30 Days, #30 TAB 1 Refill Metformin HCl (Metformin HCl ER) 1,000 Mg [id number] Oxybutynin (Ditropan) 5 Mg Tab 5 MG PO Q8HR for Urinary Symptom Managemen, #90 TAB 0 Refills Pravastatin (Pravachol) 40 Mg Tab 40 MG PO DAILY for Cholesterol Management for 30 Days, #30 TAB 6 Refills Rivaroxaban (Xarelto) 20 Mg Tab 20 MG PO DAILY for Blood Clot Prevention, #30 TAB 6 Refills Walker Rolling/GetGo (Walker Rolling/GetGo) 1 Mis Mis EA .ROUTE DIRECTED, #1 Wheelchair (Wheelchair) 1 Mis Mis EA .ROUTE DIRECTED, #1 0 Refills [Novalog] () Discontinued Medications: Amiodarone (Amiodarone) 200 Mg Tab 200 MG PO DAILY for Heart Rate for 30 Days, TAB 1 Refill Bumetanide (Bumetanide) 1 Mg Tab 1 MG PO DAILY, #30 TAB 0 Refills Captopril (Captopril) 12.5 Mg Tab 12.5 MG PO BIDAC, #60 TAB 0 Refills Take 1 hour before meals. Furosemide (Lasix) 20 Mg Tab 20 MG PO DAILY, #90 TAB 0 Refills Gabapentin (Gabapentin) 100 Mg Cap 100 MG PO HS for Neuropathy for 30 Days, CAP 1 Refill Hydroxyzine HCl (Hydroxyzine HCl) 25 Mg Tab 25 MG PO QID PRN for ITCHING, #60 TAB 0 Refills Insulin Glargine Inj (Lantus Inj) 1,000 Unit/10 Ml Vial 10 UNITS SQ HS for Blood Sugar Management, VIAL 0 Refills Temazepam (Temazepam) 15 Mg Cap 15 MG PO HS PRN for INSOMNIA, #30 CAP 0 Refills Venlafaxine ER 24 HR (Venlafaxine ER 24 HR) 75 Mg Cap 75 MG PO DAILY, #30 CAP 0 Refills Monico John MD R3 Nov 28, 2017 09:14
[2017-11-28] MEDS ORDERED: TEMA15CA PO (13:45)
== END 2017-11-28 11:36 | DRG 871 ==
LOC: NEPC 11:08 → NEDA 14:45 → NEDH 18:32 → HIMW 20:50 → HCIS 11-13 17:32 → N07B 11-15 18:29
PROVIDERS: ADMIT Family Medicine; ATTEND Family Medicine
PROC: 0T9B70Z Drainage of Bladder with Drainage Device, Via Natural or Artificial Opening (ICD-10-PCS; principal; 2017-10-31)
PROC: 5A1945Z Respiratory Ventilation, 24-96 Consecutive Hours (ICD-10-PCS; 2017-11-02)
PROC: 0BH17EZ Insertion of Endotracheal Airway into Trachea, Via Natural or Artificial Opening (ICD-10-PCS; 2017-11-02)
DX: A41.51 Sepsis due to Escherichia coli [E. coli] (principal); N17.0 Acute kidney failure with tubular necrosis; J96.00 Acute respiratory failure, unspecified whether with hypoxia or hypercapnia; J69.0 Pneumonitis due to inhalation of food and vomit; R65.21 Severe sepsis with septic shock; G93.41 Metabolic encephalopathy; A04.72 Enterocolitis due to Clostridium difficile, not specified as recurrent; E87.0 Hyperosmolality and hypernatremia; E87.2 Acidosis; R18.8 Other ascites; C79.51 Secondary malignant neoplasm of bone; R47.01 Aphasia; N13.6 Pyonephrosis; K52.1 Toxic gastroenteritis and colitis; E11.22 Type 2 diabetes mellitus with diabetic chronic kidney disease; D69.6 Thrombocytopenia, unspecified; I48.2 Chronic atrial fibrillation; R16.2 Hepatomegaly with splenomegaly, not elsewhere classified; M54.5 Low back pain; N18.9 Chronic kidney disease, unspecified; I12.9 Hypertensive chronic kidney disease with stage 1 through stage 4 chronic kidney disease, or unspecified chronic kidney disease; E78.5 Hyperlipidemia, unspecified; R30.0 Dysuria; E03.9 Hypothyroidism, unspecified; F32.9 Major depressive disorder, single episode, unspecified; I08.3 Combined rheumatic disorders of mitral, aortic and tricuspid valves; D64.9 Anemia, unspecified; R32 Unspecified urinary incontinence; E11.42 Type 2 diabetes mellitus with diabetic polyneuropathy; I25.10 Atherosclerotic heart disease of native coronary artery without angina pectoris; E53.8 Deficiency of other specified B group vitamins; I27.20 Pulmonary hypertension, unspecified; I16.0 Hypertensive urgency; R29.6 Repeated falls; K74.60 Unspecified cirrhosis of liver; Z85.038 Personal history of other malignant neoplasm of large intestine; Z80.3 Family history of malignant neoplasm of breast; Z82.5 Family history of asthma and other chronic lower respiratory diseases; Z79.4 Long term (current) use of insulin; Z79.01 Long term (current) use of anticoagulants; Z86.73 Personal history of transient ischemic attack (TIA), and cerebral infarction without residual deficits; Z86.711 Personal history of pulmonary embolism; Z87.891 Personal history of nicotine dependence; Z51.5 Encounter for palliative care; Z53.29 Procedure and treatment not carried out because of patient's decision for other reasons; Z53.20 Procedure and treatment not carried out because of patient's decision for unspecified reasons; R56.9 Unspecified convulsions; T36.95XA Adverse effect of unspecified systemic antibiotic, initial encounter; E87.6 Hypokalemia; L52 Erythema nodosum; L89.159 Pressure ulcer of sacral region, unspecified stage; K72.90 Hepatic failure, unspecified without coma; Z92.21 Personal history of antineoplastic chemotherapy; Z90.49 Acquired absence of other specified parts of digestive tract; Z87.440 Personal history of urinary (tract) infections; T38.0X5A Adverse effect of glucocorticoids and synthetic analogues, initial encounter; M79.672 Pain in left foot; Z79.899 Other long term (current) drug therapy
CPT/HCPCS: 31500; 36600; 51702; 70450; 70551; 71045; 73630; 74018; 74176; 76705; 78582; 80048; 80053; 80074; 80185; 81001; 82103; 82105; 82140; 82272; 82390; 82533; 82607; 82728; 82805; 82948; 83516; 83520; 83540; 83550; 83605; 83735; 83935; 84100; 84132; 84155; 84300; 84425; 84443; 84484; 85007; 85025; 85027; 85610; 85652; 85730; 86038; 86039; 86140; 86160; 86225; 86235; 86255; 86431; 87040; 87070; 87077; 87086; 87186; 87205; 87493; 87641; 93005; 93306; 94002; 94003; 94150; 94640; 94664; 94667; 95819; 96361; 96365; 96367; A9540; A9567; J0131; J0282; J0360; J0610; J0692; J0696; J1160; J1630; J1644; J1720; J1815; J1940; J1956; J2185; J2250; J2370; J2543; J3010; J3260; J3370; J3420; J3475; J3480; J7030; J7040; J7050; J7060; J7512; P9047; Q2009

== ENCOUNTER 2017-12-09 21:32 | Inpatient (IN) | payer MEDICARE, BC ==
[~2017-12-09] VITALS: Ht 167.6 cm; Wt 89.7 kg
[2017-12-09 20:18] VITALS: O2SAT 97
[~2017-12-09 21:32] MED LIST changes: +AMLO5 PO; -FURO1TAB62 PO; -GABA100C4 PO; -HYDR-3133 PO; +HYDR-3516 PO; +HYDR25TA5 PO; +LACT PO; +LISI-515 PO; +MELA5 PO; +METF-758; +METO-309 PO; +NEUR300C PO; +NOVALOG; +NOVOLOGSS SQ; +OXYB5TAB8 PO; +PRED20 PO; +TEMA7.5C9 PO; +VANC125C3 PO; +VENL75XR PO
[2017-12-09 21:41] VITALS: BP 162/74; PULSE 97; RESP 24; TEMP 98.8; O2SAT 100
[2017-12-09] MEDS ORDERED: AZITHROMYCIN INJ 500 MG in SODIUM CHLOR 0.9% 250 ML INJ 250 ML IV STA (21:44)
[2017-12-09] MEDS ORDERED: CEFEPIME INJ 2,000 MG in SODIUM CHLORIDE 0.9% INJ 100 ML IV STA (21:44)
[2017-12-09] MEDS ORDERED: ACETAMINOPHEN 650 MG SUPP RECTAL ONE (21:45)
[2017-12-09 21:50] VITALS: O2SAT 96
--- NOTE | 2017-12-09 21:54 | PD ---
HPI Chief Complaint: Respiratory Distress Time Seen by Provider: 21:44 Travel History International Travel<30 days: No Contact w/Intl Traveler<30days: No Traveled to known affect area: No History of Present Illness HPI The patient is a 72 year old female who presents to the [facility] emergency department with a history of hypoxemia that was first noted at her [facility] by staff early this morning. The patient was on 2 L nasal cannula O2 which she has been on since discharge from the hospital to their facility after diagnosis of sepsis related to UTI 10 days ago. The patient was saturating 86-88% on 2 L. The patient was increased to 4 L. 12 hours later the patient was rechecked and continued to be in the 80s. The patient was placed on a nonrebreather mask and ambulance services were called. The patient' s O2 saturation on nonrebreather was 90%. The patient was noted to have a temp of 102. The patient reportedly had rhonchi and decreased breath sounds in bilateral lung bases, wheezes on the right. The patient was given 1 DuoNeb, IV access was obtained, normal saline 1 L IV fluid bolus was started. They deny her having any prior history of COPD. The patient on arrival is noted to be confused and short of breath, therefore no significant history was able to be obtained from the patient. The patient's medical history is obtained from reviewing the electronic medical record. [facility] Past Medical History Narrative Medical The patient's past medical history is significant for cerebrovascular accident, diabetes mellitus, hypertension, recent sepsis related to urinary tract infection, C. difficile colitis, colon cancer, atrial fibrillation Hx Anticoagulant Therapy: Yes Atrial Fibrillation: Yes Autoimmune Disease: No Heart Rhythm Problems: Yes (ATRIAL FIB) Cancer: Yes (Colon Cancer) Cardiovascular Problems: Yes High Cholesterol: No Chemotherapy: Yes Chest Pain: No Congestive Heart Failure: No Cerebrovascular Accident: Yes (TIA x2 2016) Diabetes: Yes Diminished Hearing: No Endocrine: Yes Gastrointestinal Disorders: No Genitourinary: No Hiatal Hernia: No Hypertension: Yes Immune Disorder: No Implanted Vascular Access Dvce: Yes Musculoskeletal: No Neurologic: Yes Psychiatric: No Reproductive: No Respiratory: No Immunizations Current: Yes Migraines: No Seizures: No Thyroid Disease: Yes Menopausal: Yes : 3 Para: 2 Past Surgical History Narrative Surgical The patient's past surgical history is significant for a , appendectomy , partial colon resection, hernia repair, ovary removal Abdominal Surgery: Yes (COLON RECECTION, HERNIA, , EMERGENCY OVERY REMOVAL) AICD: No Appendectomy: Yes Cardiac Surgery: No Section: Yes Ear Surgery: No Endocrine Surgery: No Eye Surgery: No Genitourinary Surgery: No Joint Replacement: No Oral Surgery: No Pacemaker: No Thoracic Surgery: No Other Surgery: Yes (COLON RESECTION, HERNIA, , EMERGENCY OVERY REMOVAL ) Social History Alcohol Use: Yes (occassional) Tobacco Use: No Substance Use: No Allergies-Medications (Allergen,Severity, Reaction): Coded Allergies: Sulfa (Sulfonamide Antibiotics) (Verified Allergy, Severe, 10/31/17) codeine (Verified Allergy, Severe, Nausea/Vomiting, 10/31/17) Uncoded Allergies: METAL (Allergy, Intermediate, hives, 03/08/16) SURGICAL STEEL (Allergy, Intermediate, hives, 03/08/16) Reported Meds & Prescriptions Reported Meds & Active Scripts Active Norvasc (Amlodipine Besylate) 5 Mg Tab 5 Mg PO DAILY Levemir Inj (Insulin Detemir) 1,000 unit/ 10 ML Vial 6 Units SQ HS Do not mix with any other Insulin. Novolog Inj (Insulin Aspart) 100 Unit/Ml Inj 1 Injection SQ ACHS SLIDING SCALE Vancomycin (Vancomycin HCl) 125 Mg Cap 125 Mg PO QID Hydrocodone-Acetamin 5-325 mg (Hydrocodone/Acetaminophen) 5 Mg-325 Mg Tablet 1 Tab PO Q4H PRN Acidophilus/l-Sporogenes (Lactobacillus Acidophilus) 35 Million Cell-25 Million Cell Tab 1 Tab PO Q12HR Hydrochlorothiazide 25 Mg Tab 25 Mg PO DAILY Restoril (Temazepam) 7.5 Mg Cap 7.5 Mg PO HS PRN Lopressor (Metoprolol Tartrate) 50 Mg Tab 50 Mg PO Q8HR Pravachol (Pravastatin) 40 Mg Tab 40 Mg PO DAILY 30 Days Xarelto (Rivaroxaban) 20 Mg Tab 20 Mg PO DAILY Adult Aspirin EC Low Strength (Aspirin) 81 Mg Tabec 162 Mg PO DAILY 30 Days Cardizem CD 24 HR (Diltiazem CD 24 HR) 240 Mg Caper 240 Mg PO DAILY 30 Days Levothyroxine (Levothyroxine Sodium) 50 Mcg Tab 50 Mcg PO DAILY 30 Days Wheelchair (Device) 1 Mis Mis Ea .ROUTE DIRECTED Commode 3-in-1 (Device) 1 Mis Mis Ea .ROUTE DIRECTED Walker Rolling/GetGo (Device) 1 Mis Mis Ea .ROUTE DIRECTED Reported Melatonin 10 Mg-1 Mg Tab 10 Mg PO HS PRN Gabapentin 600 Mg Tab 600 Mg PO TID Venlafaxine ER 24 HR (Venlafaxine HCl) 150 Mg Tab 150 Mg PO DAILY Lisinopril 40 Mg Tab 40 Mg PO DAILY Amiodarone (Amiodarone HCl) 100 Mg Tab 100 Mg PO DAILY Ditropan (Oxybutynin Chloride) 5 Mg Tab 5 Mg PO Q8HR Metformin HCl ER (Metformin HCl) 1,000 Mg [id number] Review of Systems Except as stated in HPI: all other systems reviewed are Neg General / Constitutional: Positive: Fever Eyes: No: Visual changes HENT: No: Headaches Cardiovascular: No: Chest Pain or Discomfort Respiratory: No: Shortness of Breath Gastrointestinal: No: Abdominal Pain Genitourinary: No: Dysuria Musculoskeletal: No: Pain Skin: No Rash Neurologic: Positive: Weakness (Generalized weakness), Change in Mentation, No : Focal Abnormalities, Slurred Speech, Sensory Disturbance Psychiatric: Positive: Disorder of Thought (Reported hallucinations by the patient's sons that were visiting yesterday), No: Depression Endocrine: No: Polydipsia Hematologic/Lymphatic: No: Easy Bruising Physical Exam Narrative General: The patient is a well-developed well-nourished female, short of breath appearing on arrival, finishing up a nebulizer treatment and then placed on room air for transfer over to the [facility] bed in the emergency department was noted to desaturate to 65% on room air. Respiratory therapy was called to the bedside. The patient was placed on a nonrebreather mask in preparation for placement on BiPAP. Head and Neck exam: Head is normocephalic atraumatic. Eyes: EOMI, pupils are equal round and reactive to light. Nose: Midline septum with pink mucous membranes Mouth: Dentition unremarkable. Moist mucus membranes. Posterior oropharynx is not erythematous. No tonsillar hypertrophy. Uvula midline. Airway patent. Neck: No palpable lymphadenopathy. No nuchal rigidity. No thyromegaly. Cardiovascular: Irregularly irregular with a rate control in the 90s consistent with her history of atrial without murmurs, gallops, or rubs. Lungs: Scattered rhonchi are audible with upper airway transmission, crackles audible in the bases bilaterally, soft expiratory wheezes audible in the right posterior lung wang. The patient has accessory muscle use noted. The patient has tachypnea. No tripoding or paroxysmal abdominal breathing. Abdomen: Soft, without tenderness to palpation in all 4 quadrants of the abdomen. No guarding, rebound, or rigidity. Normal bowel sounds are audible. No tenderness on palpation of McBurney's point. Negative Rogers sign. Extremities: No clubbing or cyanosis. The patient has trace to 1+ pitting edema bilateral lower extremities. 2+ pulses in all 4 extremities. No calf tenderness on palpation. Back: No costovertebral angle tenderness to palpation. Neurologic Exam: The patient is confused on examination. She is able to state her name, however otherwise she is not oriented. The patient has no evidence of facial asymmetry. The patient has strength that is 4 out of 5 on all 4 extremities consistent with generalized weakness, no focal findings. Intact sensation over all dermatomes. Skin Exam: No rash noted. Intact skin that is warm and dry. Data Data Last Documented VS Vital Signs Date Time Temp Pulse Resp B/P (MAP) Pulse Ox O2 Delivery O2 Flow Rate FiO2 12/10/17 00:22 96 40 12/09/17 23:15 95 20 126/58 (80) Blow-by 12/09/17 21:41 98.8 12/09/17 20:18 4.00 Orders Orders Electrocardiogram (12/09/17 21:44) Complete Blood Count With Diff (12/09/17 21:44) Comprehensive Metabolic Panel (12/09/17 21:44) Creatine Kinase (Cpk) (12/09/17 21:44) Ckmb (Isoenzyme) Profile (12/09/17 21:44) Troponin I (12/09/17 21:44) B-Type Natriuretic Peptide (12/09/17 21:44) Prothrombin Time / Inr (Pt) (12/09/17 21:44) Act Partial Throm Time (Ptt) (12/09/17 21:44) Arterial Blood Gas (Abg) (12/09/17 21:44) Blood Culture (12/09/17 21:44) C-Reactive Protein (Crp) (12/09/17 21:44) Lipase (12/09/17 21:44) Urinalysis - C+S If Indicated (12/09/17 21:44) Magnesium (Mg) (12/09/17 21:44) Chest, Single Ap (12/09/17 21:44) Iv Access Insert/Monitor (12/09/17 21:44) Ecg Monitoring (12/09/17 21:44) Oximetry (12/09/17 21:44) Urinary Catheter Insert/Apply (12/09/17 21:44) Lactic Acid Sepsis Protocol (12/09/17 21:44) Resp Bipap / Cpap Non Invas Vt (12/09/17 ) Acetaminophen Supp (Tylenol Supp) (12/09/17 21:45) Cefepime Inj (Maxipime Inj) (12/09/17 21:44) Azithromycin Inj (Zithromax Inj) (12/09/17 21:44) Sodium Chloride 0.9% Flush (Ns Flush) (12/09/17 22:00) Methylprednisolone So Succ Inj (Solumedr (12/09/17 22:00) Albuterol-Ipratropium Neb (Duoneb Neb) (12/09/17 22:00) Potassium Chlor 20 Meq Premix (Kcl 20 Me (12/10/17 01:00) Admit Order (Ed Use Only) (12/10/17 01:00) Labs Laboratory Tests Test 12/09/17 22:13 12/09/17 22:15 12/09/17 23:30 White Blood Count 13.6 TH/MM3 Red Blood Count 3.25 MIL/MM3 Hemoglobin 8.7 GM/DL Hematocrit 27.3 % Mean Corpuscular Volume 83.7 FL Mean Corpuscular Hemoglobin 26.6 PG Mean Corpuscular Hemoglobin Concent 31.8 % Red Cell Distribution Width 19.7 % Platelet Count 217 TH/MM3 Mean Platelet Volume 9.0 FL Neutrophils (%) (Auto) 84.6 % Lymphocytes (%) (Auto) 6.4 % Monocytes (%) (Auto) 8.4 % Eosinophils (%) (Auto) 0.4 % Basophils (%) (Auto) 0.2 % Neutrophils # (Auto) 11.5 TH/MM3 Lymphocytes # (Auto) 0.9 TH/MM3 Monocytes # (Auto) 1.1 TH/MM3 Eosinophils # (Auto) 0.0 TH/MM3 Basophils # (Auto) 0.0 TH/MM3 CBC Comment DIFF FINAL Differential Comment Prothrombin Time 16.8 SEC Prothromb Time International Ratio 1.7 RATIO Activated Partial Thromboplast Time 36.3 SEC Blood Urea Nitrogen 14 MG/DL Creatinine 0.81 MG/DL Random Glucose 157 MG/DL Total Protein 8.1 GM/DL Albumin 2.9 GM/DL Calcium Level 8.6 MG/DL Magnesium Level 1.5 MG/DL Alkaline Phosphatase 142 U/L Aspartate Amino Transf (AST/SGOT) 13 U/L Alanine Aminotransferase (ALT/SGPT) 16 U/L Total Bilirubin 1.0 MG/DL Sodium Level 136 MEQ/L Potassium Level 2.8 MEQ/L Chloride Level 99 MEQ/L Carbon Dioxide Level 23.6 MEQ/L Anion Gap 13 MEQ/L Estimat Glomerular Filtration Rate 70 ML/MIN Total Creatine Kinase 16 U/L Troponin I 0.02 NG/ML C-Reactive Protein 19.00 MG/DL B-Type Natriuretic Peptide 466 PG/ML Lipase 200 U/L Lactic Acid Level 1.3 mmol/L Blood Gas Puncture Site RT RADIAL Blood Gas Patient Temperature 98.6 Blood Gas HCO3 25 mmol/L Blood Gas Base Excess 1.4 mmol/L Blood Gas Oxygen Saturation 95 % Arterial Blood pH 7.43 Arterial Blood Partial Pressure CO2 39 mmHg Arterial Blood Partial Pressure O2 90 mmHG Arterial Blood Oxygen Content 11.3 Vol % Arterial Blood Carboxyhemoglobin 2.5 % Arterial Blood Methemoglobin 0.6 % Blood Gas Hemoglobin 8.4 G/DL Oxygen Delivery Device BIPAP Blood Gas Ventilator Setting IPAP=12 EPAP= 5 Blood Gas Inspired Oxygen 50 % MDM Medical Decision Making Medical Screen Exam Complete: Yes Emergency Medical Condition: Yes Medical Record Reviewed: Yes Differential Diagnosis Pneumonia, versus congestive heart failure, versus recurrent C. difficile colitis, versus pyelonephritis Narrative Course During the course of the patient's emergency department visit, the patient's history, examination, and differential diagnosis were reviewed with the patient. The patient was placed on a cardiac technologist with oximetry and frequent blood pressure monitoring. The patient had IV access obtained and blood work sent for analysis. The patient had an EKG done on arrival. The patient's EKG shows atrial fibrillation heart rate of 92, QRS duration is 121 ms. QTc [address] segment elevation is noted. Downsloping ST segments are noted in V6. The patient desaturated on room air. Respiratory therapy was called to the bedside while the patient was placed on a nonrebreather mask when her O2 saturation on room air desaturated down to 65% on arrival. The patient's O2 saturation quickly improved to 98 and 99% on a nonrebreather. The patient will be placed on BiPAP. The patient was reexamined after placement on BiPAP and DuoNeb 3 were administered on BiPAP. The patient was improving. An ABG was ordered. Blood cultures 2 were ordered. A lactic acid was sent for analysis. The patient was started on broad-spectrum antibiotic coverage for suspected pneumonia related source of sepsis. The patient was provided Solu-Medrol 125 mg IV. Tylenol was written to be administered for fever. The patient's laboratory studies were reviewed and remarkable for the patient's white count was 13.6, hemoglobin 8.7, platelets 217 with 84.6 neutrophils, CMP is remarkable for potassium of 2.8 which was supplemented IV, glucose 157, AST 13, magnesium 1.5, alk phos 142, cardiac enzymes within normal limits, BNP is elevated at 466, C-reactive protein is elevated at 19, lipase 200, PT 16.8, INR 1.7, PTT 36.3. The patient is anticoagulated on Coumadin for atrial fibrillation. Urinalysis shows evidence of urinary and with moderate leukocyte esterase, 24 RBCs, 79 WBCs, few clumps, few bacteria, culture indicated Radiology studies were reviewed and remarkable for Last Impressions Chest X-Ray 12/09/174 Signed Impressions: CONCLUSION: Bilateral mostly basilar airspace disease and probable small effusions. Finding s have worsened since November 15. The patient's 2 sons arrived at the bedside and were instructed regarding the patient's findings. They explained that if the patient developed worsening respiratory failure and required intubation they would want the patient intubated. The patient's closest relative, the patient's is currently and Ekta. The patient's results were discussed with the patient, including the plan of care. I explained that further testing and/ or monitoring is indicated based on the patient's history, examination, and/ or laboratory findings. Therefore, I recommended admission for additional evaluation. The patient expressed understanding and was agreeable with this plan. The patient was admitted to the hospital in guarded condition and [facility] Critical Care Narrative Aggregate critical care time was 38 minutes. Time to perform other separately billable procedures was not included in the critical care time. My time did not include minutes spent treating any other patients simultaneously or on activities that did not directly contribute to the patient's treatment. The services I provided to this patient were to treat and/or prevent clinically significant deterioration that could result in: Respiratory failure requiring intubation, versus cardiovascular collapse from sepsis, versus fluid overload from crystalloid resuscitation related to sepsis I provided critical care services requiring my management, as noted below: Chart data review, documentation time, medication orders and management, vital sign assessments/reviewing monitor data, ordering and reviewing lab tests, ordering and interpreting/reviewing x-rays and diagnostic studies, care of the patient and discussion of the patient with the admitting physicians. Sepsis Criteria SIRS Criteria (2 or more): Heart rate over 90, RR > 20 or PaCO2 < 32, WBC > 18055, < 4000 or > 10% bands Sepsis Criteria (SIRS+source): Infect source susp/known Criteria Outcome: Meets SIRS criteria, Meets sepsis criteria Physician Communication Physician Communication The patient's case including history, pertinent physical examination findings, and laboratory studies were discussed with Dr. Petersen. It was agreed that the patient would be admitted to the [facility]. Diagnosis Primary Impression: Sepsis Qualified Codes: A41.9 - Sepsis, unspecified organism Additional Impressions: PNA (pneumonia) Qualified Codes: J18.9 - Pneumonia, unspecified organism UTI (urinary tract infection) Qualified Codes: N39.0 - Urinary tract infection, site not specified Admitting Information Admitting Physician Requests: Admit Leeanne Donaldson MD Dec 09, 2017 21:54
[2017-12-09] MEDS ORDERED: methylPREDNISolone SOD SUCC 125 MG/2 ML VIAL IV PUSH ONE (22:00)
[2017-12-09] MEDS ORDERED: SODIUM CHLORIDE 0.9% FLUSH 10 ML FLUSH IVF PRN (22:00)
[2017-12-09] MEDS: RESP: ALBUTEROL 2.5 MG/IPRATROPIUM 0.5 MG NEB (SCH) INH (22:03)
--- NOTE | 2017-12-09 22:44 | RADRPT ---
EXAM DATE: 12/09/2017 10:27 PM EDT AGE/SEX: 72 years / Female INDICATIONS: Short of breath. CLINICAL DATA: This is the patient's initial encounter. Patient reports that signs and symptoms have been present for 1 day and indicates a pain score of Nonresponsive. MEDICAL/SURGICAL HISTORY: . Hypertension. Diabetes mellitus type II. Carcinoma, colon. A-fib. Colon resection. COMPARISON: [facility] [place], CHEST SINGLE AP, 11/15/2017. . FINDINGS: There is basilar airspace consolidation which has increased from November 15 comparison. Right Infuse-a-Po rt in superior vena cava. Heart size mildly enlarged. No pneumothorax. CONCLUSION: Bilateral mostly basilar airspace disease and probable small effusions. Findings have worsened since November 15. Electronically signed by: Samuel Lin MD 12/09/2017 10:42 PM EDT
[2017-12-09 23:15] VITALS: BP 126/58; PULSE 95; RESP 20; O2SAT 98
[2017-12-09 23:22] LABS: INTERNATIONAL NORMALIZED RATIO 1.7 RATIO; PROTHROMBIN TIME - PATIENT 16.8 SEC (9.8-11.6)
[2017-12-09 23:27] LABS: AUTOMATED NEUTROPHIL # 11.5 TH/MM3 (1.8-7.7); BASOPHIL % 0.2 % (0.0-2.0); EOSINOPHIL % 0.4 % (0.0-4.0); HEMATOCRIT 27.3 % (35.0-46.0); HEMOGLOBIN 8.7 GM/DL (11.6-15.3); LYMPH % 6.4 % (9.0-44.0); LYMPHOCYTE # 0.9 TH/MM3 (1.0-4.8); MEAN CELL VOLUME 83.7 FL (80.0-100.0); MEAN CORPUSCULAR HEMOGLOBIN 26.6 PG (27.0-34.0); MEAN CORPUSCULAR HGB CONC 31.8 % (32.0-36.0); MONO % 8.4 % (0.0-8.0); MONOCYTE # 1.1 TH/MM3 (0-0.9); NEUT % 84.6 % (16.0-70.0); PLATELET COUNT 217 TH/MM3 (150-450); RED BLOOD COUNT 3.25 MIL/MM3 (4.00-5.30); RED CELL DISTRIBUTION WIDTH 19.7 % (11.6-17.2); WHITE BLOOD COUNT 13.6 TH/MM3 (4.0-11.0)
[2017-12-09 23:53] LABS: ALBUMIN 2.9 GM/DL (3.4-5.0); ALKALINE PHOSPHATASE 142 U/L (45-117); ALT (GPT) 16 U/L (10-53); AST (GOT) 13 U/L (15-37); BICARBONATE 23.6 MEQ/L (21.0-32.0); BLOOD UREA NITROGEN 14 MG/DL (7-18); CALCIUM 8.6 MG/DL (8.5-10.1); CHLORIDE 99 MEQ/L (98-107); CREATININE 0.81 MG/DL (0.50-1.00); GLOMERULAR FILTRATION RATE 70 ML/MIN (>89); GLUCOSE,RANDOM 157 MG/DL (74-106); MAGNESIUM 1.5 MG/DL (1.5-2.5); SODIUM (NA) 136 MEQ/L (136-145); TOTAL PROTEIN 8.1 GM/DL (6.4-8.2); TROPONIN I 0.02 NG/ML (0.02-0.05)
[2017-12-10] VITALS (24 sets, daily range): BP systolic 118–127; BP diastolic 60–79; PULSE 63–92; RESP 18–26; TEMP 97.7–98.3; O2SAT 93–97
[2017-12-10] MEDS ORDERED: GABA600T PO (00:14)
[2017-12-10] MEDS ORDERED: AMIO0.1T PO (00:14)
[2017-12-10] MEDS ORDERED: MELA1TAB18 PO (00:14)
[2017-12-10] MEDS ORDERED: VENL150T PO (00:14)
[2017-12-10] MEDS ORDERED: LISI40TA PO (00:14)
[2017-12-10] MEDS ORDERED: POTASSIUM CHLOR 20 MEQ PREMIX 100 ML IV ONE (01:00)
[2017-12-10] MEDS ORDERED: SENNOSIDES 8.6 MG TAB PO PRN (01:45)
[2017-12-10] MEDS ORDERED: RESP: ALBUTEROL 2.5 MG/IPRATROPIUM 0.5 MG NEB (PRN) NEB (01:45)
[2017-12-10] MEDS ORDERED: GLUCAGON 1 MG/ML VIAL OTHER PRN (01:45)
[2017-12-10] MEDS ORDERED: SODIUM CHLORIDE 0.9% FLUSH 10 ML FLUSH IV FLUSH PRN (01:45)
[2017-12-10] MEDS ORDERED: ENOXAPARIN SODIUM 40 MG/0.4 ML SYRINGE SQ SCH (01:45)
[2017-12-10] MEDS ORDERED: DEXTROSE 50% IN WATER 50 ML VIAL(D50) IV PUSH PRN (01:45)
[2017-12-10] MEDS ORDERED: NALOXONE HCL 0.4 MG/ML AMP IV PUSH PRN (01:45)
[2017-12-10] MEDS ORDERED: BISACODYL 10 MG SUPP RECTAL PRN (01:45)
[2017-12-10] MEDS ORDERED: LACTULOSE SYRUP 20 GM/30 ML CUP PO PRN (01:45)
[2017-12-10] MEDS ORDERED: MAGNESIUM HYDROXIDE SUSP 30 ML CUP PO PRN (01:45)
[2017-12-10 01:59] LABS: AMORPHOUS SEDIMENT, URINE RARE; BACTERIA, URINE FEW /hpf; BILIRUBIN, URINE NEG (NEG); BLOOD, URINE MOD (NEG); GLUCOSE,URINE 50 mg/dL (NEG); HYALINE CAST, URINE 8 /lpf (RARE); KETONE, URINE TRACE mg/dL (NEG); MUCUS URINE FEW /lpf (OCC); NITRITE,URINE NEG (NEG); SQUAMOUS EPITHELIAL CELL URINE 1 /hpf (0-5); URINE COLOR Amber (YELLW/STRAW); URINE LEUKOCYTE ESTERASE MOD (NEG); WHITE BLOOD CELL CLUMPS FEW
[2017-12-10] MEDS ORDERED: ONDANSETRON ODT 4 MG TAB PO PRN (02:15)
--- NOTE | 2017-12-10 02:22 | HHI.HP ---
HPI Service [facility] Primary Care Physician Unknown Admission Diagnosis Sepsis, Respiratory distress on Bipap Diagnoses: Travel History International Travel<30 Days: No Contact w/Intl Traveler <30 Da: No Traveled to Known Affected Are: No History of Present Illness 72-year-old female with a past medical history significant for previous colon cancer, diabetes mellitus, hypertension, hyperlipidemia and atrial fibrillation status post ablation 2 anticoagulated on Xarelto presents to the emergency department from her care home facility for altered mental status. Per her son who has been with her for several days approximately 3 days ago she began hallucinating. This was reported to nursing staff at the time. The son also reports that his mother has had increasing fatigue and will doze off regularly, sometimes in the middle of a conversation. She has had increasing confusion. Today she hallucinated that there were people in her room and reacted to them. She was just discharged from the hospital on 12/02/17 where she was treated for urosepsis. The patient's hospital course was complicated by C. difficile infection for which she was treated. She also had a CT scan with widespread sclerotic bone lesions requiring a PET scan upon discharge and follow-up with her oncologist, Dr. Candelario. In her nursing facility the patient was noted to be hypoxic in the 80s with a fever to 102. She is confused during the time of our interview and is unable to answer the majority of my questions. History obtained from her son's, ED documentation in the medical record. Review of Systems Unable to obtain secondary to patient's clinical condition Past Family Social History Past Medical History (Obtained from medical records) Colon cancer: Diagnosed 2015 Diabetes Type 2 - on insulin Hypertension Hyperlipidemia Atrial fibrillation Depression Hypothyroidism CVA 2014 PE 03/2017 Pyelo/PNA 03/2017 requiring intubation Past Surgical History C/S x2 hernia operation 1999 "emergency abdominal surgery" when taking fertility drugs 1986 Reported Medications Reported Meds & Active Scripts Active Norvasc (Amlodipine Besylate) 5 Mg Tab 5 Mg PO DAILY Levemir Inj (Insulin Detemir) 1,000 unit/ 10 ML Vial 6 Units SQ HS Do not mix with any other Insulin. Novolog Inj (Insulin Aspart) 100 Unit/Ml Inj 1 Injection SQ ACHS SLIDING SCALE Vancomycin (Vancomycin HCl) 125 Mg Cap 125 Mg PO QID Hydrocodone-Acetamin 5-325 mg (Hydrocodone/Acetaminophen) 5 Mg-325 Mg Tablet 1 Tab PO Q4H PRN Acidophilus/l-Sporogenes (Lactobacillus Acidophilus) 35 Million Cell-25 Million Cell Tab 1 Tab PO Q12HR Hydrochlorothiazide 25 Mg Tab 25 Mg PO DAILY Restoril (Temazepam) 7.5 Mg Cap 7.5 Mg PO HS PRN Lopressor (Metoprolol Tartrate) 50 Mg Tab 50 Mg PO Q8HR Pravachol (Pravastatin) 40 Mg Tab 40 Mg PO DAILY 30 Days Xarelto (Rivaroxaban) 20 Mg Tab 20 Mg PO DAILY Adult Aspirin EC Low Strength (Aspirin) 81 Mg Tabec 162 Mg PO DAILY 30 Days Cardizem CD 24 HR (Diltiazem CD 24 HR) 240 Mg Caper 240 Mg PO DAILY 30 Days Levothyroxine (Levothyroxine Sodium) 50 Mcg Tab 50 Mcg PO DAILY 30 Days Wheelchair (Device) 1 Mis Mis Ea .ROUTE DIRECTED Commode 3-in-1 (Device) 1 Mis Mis Ea .ROUTE DIRECTED Walker Rolling/GetGo (Device) 1 Mis Mis Ea .ROUTE DIRECTED Reported Melatonin 10 Mg-1 Mg Tab 10 Mg PO HS PRN Gabapentin 600 Mg Tab 600 Mg PO TID Venlafaxine ER 24 HR (Venlafaxine HCl) 150 Mg Tab 150 Mg PO DAILY Lisinopril 40 Mg Tab 40 Mg PO DAILY Amiodarone (Amiodarone HCl) 100 Mg Tab 100 Mg PO DAILY Ditropan (Oxybutynin Chloride) 5 Mg Tab 5 Mg PO Q8HR Metformin HCl ER (Metformin HCl) 1,000 Mg [id number] Allergies: Coded Allergies: Sulfa (Sulfonamide Antibiotics) (Verified Allergy, Severe, 10/31/17) codeine (Verified Allergy, Severe, Nausea/Vomiting, 10/31/17) Uncoded Allergies: METAL (Allergy, Intermediate, hives, 03/08/16) SURGICAL STEEL (Allergy, Intermediate, hives, 03/08/16) Family History Mom: Breast CA at 48, still living at 87 Dad: emphysema No siblings Son: lymphedema Social History EtOH: very rarely Tob: 10 pack/yr smoker; quit 2009 Illicits: None . 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 2 healthy kids. Physical Exam Vital Signs Vital Signs Date Time Temp Pulse Resp B/P (MAP) Pulse Ox O2 Delivery O2 Flow Rate FiO2 12/10/17 00:22 96 40 12/09/17 23:15 95 20 126/58 (80) 98 Blow-by 12/09/17 21:50 96 50 12/09/17 21:50 98 Non-Rebreather 12/09/17 21:41 98.8 97 24 162/74 (103) 100 Physical Exam GENERAL: female lying in bed SKIN: No rashes, ecchymoses or lesions. Cool and dry. HEAD: Atraumatic. Normocephalic. No temporal or scalp tenderness. EYES: Pupils equal round and reactive. Extraocular motions intact. No scleral icterus. No injection or drainage. ENT: Nose without bleeding, purulent drainage or septal hematoma. Throat without erythema, tonsillar hypertrophy or exudate. Uvula midline. Airway patent. NECK: Trachea midline. No JVD or lymphadenopathy. Supple, nontender, no meningeal signs. CARDIOVASCULAR: Regular rate and rhythm without murmurs, gallops, or rubs. RESPIRATORY: Decreased breath sounds in the bilateral bases with wheezes on the right. GASTROINTESTINAL: Abdomen soft, non-tender, nondistended. No hepato-splenomegaly , or palpable masses. No guarding. MUSCULOSKELETAL: Extremities without clubbing, cyanosis, or edema. No joint tenderness, effusion, or edema noted. No calf tenderness. NEUROLOGICAL: Awake and alert. Cranial nerves II through XII intact. Motor and sensory grossly within normal limits. Normal speech. Laboratory Laboratory Tests Test 12/09/17 22:13 12/09/17 22:15 12/09/17 23:30 12/10/17 01:40 White Blood Count 13.6 Red Blood Count 3.25 Hemoglobin 8.7 Hematocrit 27.3 Mean Corpuscular Volume 83.7 Mean Corpuscular Hemoglobin 26.6 Mean Corpuscular Hemoglobin Concent 31.8 Red Cell Distribution Width 19.7 Platelet Count 217 Mean Platelet Volume 9.0 Neutrophils (%) (Auto) 84.6 Lymphocytes (%) (Auto) 6.4 Monocytes (%) (Auto) 8.4 Eosinophils (%) (Auto) 0.4 Basophils (%) (Auto) 0.2 Neutrophils # (Auto) 11.5 Lymphocytes # (Auto) 0.9 Monocytes # (Auto) 1.1 Eosinophils # (Auto) 0.0 Basophils # (Auto) 0.0 CBC Comment DIFF FINAL Differential Comment Prothrombin Time 16.8 Prothromb Time International Ratio 1.7 Activated Partial Thromboplast Time 36.3 Blood Urea Nitrogen 14 Creatinine 0.81 Random Glucose 157 Total Protein 8.1 Albumin 2.9 Calcium Level 8.6 Magnesium Level 1.5 Alkaline Phosphatase 142 Aspartate Amino Transf (AST/SGOT) 13 Alanine Aminotransferase (ALT/SGPT) 16 Total Bilirubin 1.0 Sodium Level 136 Potassium Level 2.8 Chloride Level 99 Carbon Dioxide Level 23.6 Anion Gap 13 Estimat Glomerular Filtration Rate 70 Total Creatine Kinase 16 Troponin I 0.02 C-Reactive Protein 19.00 B-Type Natriuretic Peptide 466 Lipase 200 Lactic Acid Level 1.3 Blood Gas Puncture Site RT RADIAL Blood Gas Patient Temperature 98.6 Blood Gas HCO3 25 Blood Gas Base Excess 1.4 Blood Gas Oxygen Saturation 95 Arterial Blood pH 7.43 Arterial Blood Partial Pressure CO2 39 Arterial Blood Partial Pressure O2 90 Arterial Blood Oxygen Content 11.3 Arterial Blood Carboxyhemoglobin 2.5 Arterial Blood Methemoglobin 0.6 Blood Gas Hemoglobin 8.4 Oxygen Delivery Device BIPAP Blood Gas Ventilator Setting IPAP=12 EPAP= 5 Blood Gas Inspired Oxygen 50 Urine Color Niesha Urine Turbidity CLOUDY Urine pH 5.0 Urine Specific [place] 1.015 Urine Protein 100 Urine Glucose (UA) 50 Urine Ketones TRACE Urine Occult Blood MOD Urine Nitrite NEG Urine Bilirubin NEG Urine Urobilinogen LESS THAN 2 Urine Leukocyte Esterase MOD Urine RBC 24 Urine WBC 79 Urine WBC Clumps FEW Urine Squamous Epithelial Cells 1 Urine Amorphous Sediment RARE Urine Bacteria FEW Urine Hyaline Casts 8 Urine Granular Casts 8 Urine Mucus FEW Microscopic Urinalysis Comment CULTURE INDICATED Date/Time Source Procedure Growth Status 12/09/17 22:20 Blood Peripheral Aerobic Blood Culture Pending Received 12/09/17 22:20 Blood Peripheral Anaerobic Blood Culture Pending Received 12/10/17 01:40 Urine Clean Catch Urine Culture Pending Received Result Diagram: 12/09/17221212/09/172212 Caprini VTE Risk Assessment Caprini VTE Risk Assessment: Mod/High Risk (score >= 2) Caprini Risk Assessment Model Point Value = 1 Point Value = 2 Point Value = 3 Point Value = 5 Age 41-60 Minor surgery BMI > 25 kg/m2 Swollen legs Varicose veins or History of unexplained or recurrent spontaneous Oral contraceptives or hormone replacement Sepsis (< 1 month) Serious lung disease, including pneumonia (< 1 month) Abnormal pulmonary function Acute myocardial infarction Congestive heart failure (< 1 month) History of inflammatory bowel disease Medical patient at bed rest Age 61-74 Arthroscopic surgery Major open surgery (> 45 min) Laparoscopic surgery (> 45 min) Malignancy Confined to bed (> 72 hours) Immobilizing plaster cast Central venous access Age >= 75 History of VTE Family history of VTE Factor V Leiden Prothrombin [id number] Lupus anticoagulant Anticardiolipin antibodies Elevated serum homocysteine Heparin-induced thrombocytopenia Other congenital or acquired thrombophilia Stroke (< 1 month) Elective arthroplasty Hip, pelvis, or leg fracture Acute spinal cord injury (< 1 month) Prophylaxis Regimen Total Risk Factor Score Risk Level Prophylaxis Regimen 0-1 Low Early ambulation 2 Moderate Order ONE of the following: *Sequential Compression Device (SCD) *Heparin 5000 units SQ BID 3-4 Higher Order ONE of the following medications: *Heparin 5000 units SQ TID *Enoxaparin/Lovenox 40 mg SQ daily (WT < 150 kg, CrCl > 30 mL/min) *Enoxaparin/Lovenox 30 mg SQ daily (WT < 150 kg, CrCl > 10-29 mL/min) *Enoxaparin/Lovenox 30 mg SQ BID (WT < 150 kg, CrCl > 30 mL/min) AND/OR *Sequential Compression Device (SCD) 5 or more Highest Order ONE of the following medications: *Heparin 5000 units SQ TID (Preferred with Epidurals) *Enoxaparin/Lovenox 40 mg SQ daily (WT < 150 kg, CrCl > 30 mL/min) *Enoxaparin/Lovenox 30 mg SQ daily (WT < 150 kg, CrCl > 10-29 mL/min) *Enoxaparin/Lovenox 30 mg SQ BID (WT < 150 kg, CrCl > 30 mL/min) AND *Sequential Compression Device (SCD) Assessment and Plan Assessment and Plan Assessment/plan: 1. Sepsis/pneumonia/UTI UA consistent with urinary tract infection Urine culture pending Chest x-ray Showed bilateral basilar airspace disease that has worsened from previous, personally reviewed Blood cultures pending Azithromycin and cefepime Duo nebs IV steroids 2. Hypokalemia Status post IV repletion IV fluids plus potassium Monitor BMP 3. Atrial fibrillation Continue home medications Continue anticoagulation with Xarelto 4. Diabetes mellitus Continue Levemir Sliding-scale insulin Monitor blood glucose 5. Hypertension/hyperlipidemia/hypothyroidism Continue home medications 6. History of sclerotic bone lesions Patient known to Dr. Candelario Will need outpatient PET scan Follow-up as outpatient [facility] Heart healthy diabetic diet Electrolytes: As above NS +20 KCl at 100 cc/hour Lovenox Physician Certification 2 Midnight Certification Type: Admission for Inpatient Services Order for Inpatient Services The services are ordered in accordance with Medicare regulations or non- Medicare payer requirements, as applicable. In the case of services not specified as inpatient-only, they are appropriately provided as inpatient services in accordance with the 2-midnight benchmark. Estimated LOS (days): 2 2 days is the estimated time the patient will need to remain in the hospital, assuming treatment plan goals are met and no additional complications. Post-Hospital Plan: Not yet determined Hayley Petersen MD Dec 10, 2017 02:22
[2017-12-10] MEDS: NS + KCL 20 MEQ INJ 1,000 ML IV SCH ×3 (03:37→21:45)
[2017-12-10] MEDS: methylPREDNISolone SOD SUCC 40 MG/1 ML VIAL IV PUSH SCH ×3 (06:10→22:15)
[2017-12-10] MEDS: LEVOTHYROXINE SODIUM 50 MCG TAB PO SCH (06:10)
[2017-12-10] MEDS: OXYBUTYNIN CHLORIDE 5 MG TAB PO SCH ×3 (06:10→22:15)
[2017-12-10] MEDS: METOPROLOL TARTRATE 50 MG TAB PO SCH ×3 (06:10→22:15)
[2017-12-10 06:55] LABS: AUTOMATED NEUTROPHIL # 10.3 TH/MM3 (1.8-7.7); BASOPHIL % 0.2 % (0.0-2.0); HEMATOCRIT 27.1 % (35.0-46.0); HEMOGLOBIN 8.7 GM/DL (11.6-15.3); LYMPH % 2.3 % (9.0-44.0); LYMPHOCYTE # 0.3 TH/MM3 (1.0-4.8); MEAN CELL VOLUME 83.9 FL (80.0-100.0); MEAN CORPUSCULAR HEMOGLOBIN 27.1 PG (27.0-34.0); MEAN CORPUSCULAR HGB CONC 32.3 % (32.0-36.0); MEAN PLATELET VOLUME 9.2 FL (7.0-11.0); MONO % 2.5 % (0.0-8.0); MONOCYTE # 0.3 TH/MM3 (0-0.9); PLATELET COUNT 182 TH/MM3 (150-450); RED BLOOD COUNT 3.23 MIL/MM3 (4.00-5.30); RED CELL DISTRIBUTION WIDTH 19.3 % (11.6-17.2); WHITE BLOOD COUNT 10.9 TH/MM3 (4.0-11.0)
[2017-12-10 07:16] LABS: BICARBONATE 23.5 MEQ/L (21.0-32.0); CALCIUM 8.4 MG/DL (8.5-10.1); CREATININE 0.95 MG/DL (0.50-1.00)
[2017-12-10] MEDS ORDERED: CEFEPIME INJ 2,000 MG in SODIUM CHLORIDE 0.9% INJ 100 ML IV SCH (08:00)
[2017-12-10] MEDS: ASPIRIN EC 81 MG TABEC PO SCH (08:14)
[2017-12-10] MEDS: GABAPENTIN 300 MG CAP PO SCH ×3 (08:14→17:37)
[2017-12-10] MEDS: DILTIAZEM-CD 240 MG CAP ER PO SCH (08:14)
[2017-12-10] MEDS: AMIODARONE 200 MG TAB PO SCH (08:14)
[2017-12-10] MEDS: PRAVASTATIN SOD 40 MG TAB PO SCH (08:14)
[2017-12-10] MEDS: amLODIPine BESYLATE 5 MG TAB PO SCH (08:14)
[2017-12-10] MEDS: HYDROCHLOROTHIAZIDE 25 MG TAB PO SCH (08:14)
[2017-12-10] MEDS: LISINOPRIL 20 MG TAB PO SCH (08:14)
[2017-12-10] MEDS: SODIUM CHLORIDE 0.9% FLUSH 10 ML FLUSH IV FLUSH SCH ×2 (08:15→22:16)
[2017-12-10] MEDS: DOCUSATE SODIUM 50 MG/SENNA 8.6 MG TAB PO SCH ×3 (08:15→22:15)
[2017-12-10] MEDS: RIVAROXABAN 20 MG TAB PO SCH (08:15)
[2017-12-10] MEDS: VENLAFAXINE HCL XR 75 MG CAP PO SCH (08:15)
[2017-12-10] MEDS: INSULIN ASPART SUPPLEMENTAL SCALE SQ SCH ×4 (08:15→22:16)
--- NOTE | 2017-12-10 17:01 | EKG ---
Date Performed: 12/10/2017 Time Performed: 00:22:36 PTAGE: 72 years EKG: ATRIAL FIBRILLATION MARKED LEFT AXIS DEVIATION POSSIBLE ANTERIOR MYOCARDIAL INFARCTION ABNO RMAL ECG PREVIOUS TRACING : 10/31/2017 17.01 Since the previous tracing, no significant change noted DOCTOR: Devin Hagan Interpretating Date/Time 12/10/2017 16:59:16
[2017-12-10] MEDS: CEFEPIME INJ 2,000 MG in SODIUM CHLORIDE 0.9% INJ 100 ML IV SCH (20:44)
[2017-12-10] MEDS: ACETAMINOPHEN 325 MG TAB PO PRN (22:15)
[2017-12-10] MEDS: INSULIN DETEMIR 100 UNITS/ML VIAL SQ SCH (22:16)
[2017-12-11] VITALS (27 sets, daily range): BP systolic 113–146; BP diastolic 67–97; PULSE 56–85; RESP 16–20; TEMP 97.5–98; O2SAT 93–100
[2017-12-11] MEDS: AZITHROMYCIN INJ 500 MG in SODIUM CHLOR 0.9% 250 ML INJ 250 ML IV SCH ×2 (00:20→22:49)
[2017-12-11] MEDS: methylPREDNISolone SOD SUCC 40 MG/1 ML VIAL IV PUSH SCH ×2 (05:35→14:39)
[2017-12-11] MEDS: OXYBUTYNIN CHLORIDE 5 MG TAB PO SCH ×3 (05:36→22:48)
[2017-12-11] MEDS: METOPROLOL TARTRATE 50 MG TAB PO SCH ×3 (05:36→22:48)
[2017-12-11] MEDS: LEVOTHYROXINE SODIUM 50 MCG TAB PO SCH (05:37)
[2017-12-11] MEDS: INSULIN ASPART SUPPLEMENTAL SCALE SQ SCH ×4 (08:00→22:50)
[2017-12-11] MEDS: ASPIRIN EC 81 MG TABEC PO SCH (08:36)
[2017-12-11] MEDS: CEFEPIME INJ 2,000 MG in SODIUM CHLORIDE 0.9% INJ 100 ML IV SCH ×2 (08:36→22:49)
[2017-12-11] MEDS: VENLAFAXINE HCL XR 75 MG CAP PO SCH (08:36)
[2017-12-11] MEDS: LISINOPRIL 20 MG TAB PO SCH (08:36)
[2017-12-11] MEDS: GABAPENTIN 300 MG CAP PO SCH ×3 (08:36→16:52)
[2017-12-11] MEDS: DILTIAZEM-CD 240 MG CAP ER PO SCH (08:37)
[2017-12-11] MEDS: RIVAROXABAN 20 MG TAB PO SCH (08:37)
[2017-12-11] MEDS: AMIODARONE 200 MG TAB PO SCH (08:37)
[2017-12-11] MEDS: PRAVASTATIN SOD 40 MG TAB PO SCH (08:37)
[2017-12-11] MEDS: HYDROCHLOROTHIAZIDE 25 MG TAB PO SCH (08:37)
[2017-12-11] MEDS: amLODIPine BESYLATE 5 MG TAB PO SCH (08:37)
[2017-12-11] MEDS: DOCUSATE SODIUM 50 MG/SENNA 8.6 MG TAB PO SCH ×2 (08:38→21:00)
[2017-12-11] MEDS: SODIUM CHLORIDE 0.9% FLUSH 10 ML FLUSH IV FLUSH SCH ×2 (08:38→22:48)
[2017-12-11 11:27] LABS: AUTOMATED NEUTROPHIL # 6.4 TH/MM3 (1.8-7.7); BASOPHIL % 0.2 % (0.0-2.0); HEMATOCRIT 28.4 % (35.0-46.0); LYMPH % 5.1 % (9.0-44.0); LYMPHOCYTE # 0.4 TH/MM3 (1.0-4.8); MEAN CORPUSCULAR HGB CONC 31.8 % (32.0-36.0); MEAN PLATELET VOLUME 9.3 FL (7.0-11.0); MONOCYTE # 0.3 TH/MM3 (0-0.9); NEUT % 90.7 % (16.0-70.0); PLATELET COUNT 237 TH/MM3 (150-450); RED BLOOD COUNT 3.34 MIL/MM3 (4.00-5.30); RED CELL DISTRIBUTION WIDTH 19.2 % (11.6-17.2)
[2017-12-11] MEDS: ACETAMINOPHEN 325 MG TAB PO PRN ×2 (11:57→22:48)
[2017-12-11 12:01] LABS: BICARBONATE 21.1 MEQ/L (21.0-32.0); CALCIUM 8.5 MG/DL (8.5-10.1); CREATININE 1.16 MG/DL (0.50-1.00)
--- NOTE | 2017-12-11 12:16 | HHI.PR ---
Subjective Remarks Patient reports feeling weak. Respiratory status is stable. Objective Vitals Vital Signs Date Time Temp Pulse Resp B/P (MAP) Pulse Ox O2 Delivery O2 Flow Rate FiO2 12/11/17 12:00 97.7 79 18 129/80 (96) 100 12/11/17 12:00 72 12/11/17 11:00 77 12/11/17 10:00 72 12/11/17 09:26 97.6 78 20 146/97 (113) 96 12/11/17 09:26 97 3.50 12/11/17 09:00 65 12/11/17 08:00 70 12/11/17 07:00 77 12/11/17 06:00 67 12/11/17 05:03 66 12/11/17 04:00 97.9 63 18 131/87 (102) 98 12/11/17 04:00 62 12/11/17 03:09 56 12/11/17 02:00 57 12/11/17 01:00 61 12/11/17 00:00 98.0 60 18 124/67 (86) 97 12/11/17 00:00 64 12/11/17 00:00 Nasal Cannula 4.00 97 12/10/17 23:00 63 12/10/17 22:00 70 12/10/17 21:01 94 Nasal Cannula 4.00 12/10/17 21:00 65 12/10/17 20:41 98.0 77 18 122/79 (93) 94 12/10/17 20:00 Nasal Cannula 4.00 95 12/10/17 20:00 68 12/10/17 19:00 68 12/10/17 18:00 68 12/10/17 17:00 76 12/10/17 16:00 72 12/10/17 16:00 97.7 70 18 126/72 (90) 95 12/10/17 15:00 66 12/10/17 14:00 68 12/10/17 13:00 75 12/10/17 12:34 97.9 71 18 118/72 (87) 94 I/O 12/10/17 12/10/17 12/10/17 12/11/17 12/11/17 12/11/17 07:00 15:00 23:00 07:00 15:00 23:00 Intake Total 450 ml 720 ml 240 ml Output Total 150 ml 200 ml Balance 450 ml 570 ml 40 ml Intake Oral 720 ml 240 ml IV Total 450 ml Output Urine Total 150 ml 200 ml # Voids 2 # Bowel Movements 2 0 Result Diagram: 12/11/17 1112 12/11/17 1112 Objective Remarks GENERAL: Elderly and frail female. In no acute distress. CARDIOVASCULAR: Normal rate and regular rhythm without murmurs, gallops, or rubs. RESPIRATORY: Markedly diminished breath sounds at the bases bilaterally. Clear anteriorly. GASTROINTESTINAL: Abdomen soft, non-tender, non-distended. Normal active bowel sounds MUSCULOSKELETAL: Extremities without cyanosis, or edema. NEURO: Alert & Oriented x4 to person, place, time, situation. Moves all ext x4 PSYCH: Appropriate mood and affect. A/P Assessment and Plan 72-year-old female with: 1. Sepsis/pneumonia/UTI UA consistent with urinary tract infection Urine culture pending Chest x-ray Showed bilateral basilar airspace disease that has worsened from previous, personally reviewed Blood cultures pending Azithromycin and cefepime Duo nebs IV steroids 2. Hypokalemia Status post IV repletion Monitor BMP 3. Atrial fibrillation Continue home medications Continue anticoagulation with Xarelto 4. Diabetes mellitus Continue Levemir Sliding-scale insulin Monitor blood glucose 5. Hypertension/hyperlipidemia/hypothyroidism Continue home medications 6. History of sclerotic bone lesions Patient known to Dr. Candelario Will need outpatient PET scan Follow-up as outpatient Discharge Planning Continue treatment for sepsis. Very frail. Anticipate will need to return to SNF in 2-3 days. Jason Fontana MD Dec 11, 2017 12:16
[2017-12-11] MEDS ORDERED: POTASSIUM CHLORIDE 10 MEQ CONTROLLED RELEASE TAB PO ONE (16:30)
[2017-12-11] MEDS: predniSONE 20 MG TAB PO SCH (22:48)
[2017-12-11] MEDS: INSULIN DETEMIR 100 UNITS/ML VIAL SQ SCH (22:49)
[2017-12-11] MEDS: TEMAZEPAM 7.5 MG CAP PO PRN (23:03)
[2017-12-12] VITALS (20 sets, daily range): BP systolic 95–141; BP diastolic 56–76; PULSE 56–86; RESP 16–18; TEMP 97.4–98.2; O2SAT 92–98
[2017-12-12] MEDS: METOPROLOL TARTRATE 50 MG TAB PO SCH ×3 (06:45→20:35)
[2017-12-12] MEDS: LEVOTHYROXINE SODIUM 50 MCG TAB PO SCH (06:45)
[2017-12-12] MEDS: OXYBUTYNIN CHLORIDE 5 MG TAB PO SCH ×3 (06:45→20:36)
[2017-12-12 06:50] LABS: MEAN CELL VOLUME 84.2 FL (80.0-100.0); MEAN CORPUSCULAR HGB CONC 32.1 % (32.0-36.0); MEAN PLATELET VOLUME 9.4 FL (7.0-11.0); PLATELET COUNT 283 TH/MM3 (150-450); RED BLOOD COUNT 3.32 MIL/MM3 (4.00-5.30); RED CELL DISTRIBUTION WIDTH 19.3 % (11.6-17.2); WHITE BLOOD COUNT 8.3 TH/MM3 (4.0-11.0)
[2017-12-12 07:13] LABS: CALCIUM 8.3 MG/DL (8.5-10.1); CREATININE 1.23 MG/DL (0.50-1.00)
[2017-12-12] MEDS: DOCUSATE SODIUM 50 MG/SENNA 8.6 MG TAB PO SCH ×2 (09:00→20:37)
[2017-12-12] MEDS: VENLAFAXINE HCL XR 75 MG CAP PO SCH (10:53)
[2017-12-12] MEDS: ASPIRIN EC 81 MG TABEC PO SCH (10:53)
[2017-12-12] MEDS: INSULIN ASPART SUPPLEMENTAL SCALE SQ SCH ×4 (10:53→20:40)
[2017-12-12] MEDS: AMIODARONE 200 MG TAB PO SCH (10:54)
[2017-12-12] MEDS: HYDROCHLOROTHIAZIDE 25 MG TAB PO SCH (10:54)
[2017-12-12] MEDS: amLODIPine BESYLATE 5 MG TAB PO SCH (10:54)
[2017-12-12] MEDS: predniSONE 20 MG TAB PO SCH ×2 (10:54→20:35)
[2017-12-12] MEDS: GABAPENTIN 300 MG CAP PO SCH ×3 (10:54→17:23)
[2017-12-12] MEDS: RIVAROXABAN 20 MG TAB PO SCH (10:54)
[2017-12-12] MEDS: DILTIAZEM-CD 240 MG CAP ER PO SCH (10:55)
[2017-12-12] MEDS: LISINOPRIL 20 MG TAB PO SCH (10:55)
[2017-12-12] MEDS: SODIUM CHLORIDE 0.9% FLUSH 10 ML FLUSH IV FLUSH SCH ×2 (10:55→20:36)
[2017-12-12] MEDS: PRAVASTATIN SOD 40 MG TAB PO SCH (10:55)
[2017-12-12] MEDS: CEFEPIME INJ 2,000 MG in SODIUM CHLORIDE 0.9% INJ 100 ML IV SCH ×2 (10:56→20:36)
[2017-12-12] MEDS ORDERED: POTASSIUM CHLORIDE 10 MEQ CONTROLLED RELEASE TAB PO ONE (12:45)
--- NOTE | 2017-12-12 12:51 | RADRPT ---
EXAM DATE: 12/12/2017 12:37 PM EDT AGE/SEX: 72 years / Female INDICATIONS: Respiratory failure, short of breath CLINICAL DATA: This is the patient's subsequent encounter. Patient reports that signs and symptoms h ave been present for 3 days and indicates a pain score of 0/10. MEDICAL/SURGICAL HISTORY: Carcinoma, colon. Diabetes mellitus type II. pneumonia, A-fib Colon resection. ablation x 2 COMPARISON: [facility] – [place]ST SINGLE AP, 12/09/2017. . FINDINGS: A single AP portable erect view of the chest was obtained. The patient is mildly rotated to the left. The right internal jugular central venous line remains in place. Hazy perihilar and bibasilar opacit ies remain which appear mildly improved. There is mild to moderate cardiomegaly again noted. The left costophrenic angle remains blunted and the left hemidiaphragm is obscured. Atherosclerotic changes a re again noted in the aorta. CONCLUSION: Rotated examination with apparent mild improvement in bilateral pulmonary edema. Electronically signed by: Robe Menchaca MD 12/12/2017 12:49 PM EDT
--- NOTE | 2017-12-12 13:18 | HHI.PR ---
Subjective Remarks Patient complained of left foot pain. Breathing is better. Objective Vitals Vital Signs Date Time Temp Pulse Resp B/P (MAP) Pulse Ox O2 Delivery O2 Flow Rate FiO2 12/12/17 07:00 97.7 70 18 124/63 (83) 95 12/12/17 06:00 56 12/12/17 05:00 56 12/12/17 05:00 56 18 93 12/12/17 04:00 57 12/12/17 02:00 58 12/12/17 01:05 Nasal Cannula 2.00 12/12/17 01:00 80 12/12/17 00:25 16 12/12/17 00:00 65 18 95/56 (69) 92 12/12/17 00:00 68 12/12/17 00:00 60 12/11/17 23:00 72 12/11/17 22:00 68 12/11/17 21:00 68 12/11/17 21:00 97.5 73 18 113/67 (82) 93 12/11/17 20:12 63 12/11/17 20:00 62 12/11/17 19:48 Nasal Cannula 2.00 12/11/17 19:00 68 12/11/17 18:00 85 12/11/17 17:00 68 12/11/17 16:00 65 12/11/17 15:05 97.8 77 16 141/82 (101) 100 12/11/17 15:00 68 12/11/17 14:00 76 I/O 12/11/17 12/11/17 12/11/17 12/12/17 12/12/17 12/12/17 07:00 15:00 23:00 07:00 15:00 23:00 Intake Total 240 ml 350 ml 1580 ml 330 ml Output Total 200 ml 300 ml 600 ml Balance 40 ml 350 ml 1280 ml -270 ml Intake Oral 240 ml 480 ml 330 ml IV Total 350 ml 1100 ml Output Urine Total 200 ml 300 ml 600 ml # Voids 1 # Bowel Movements 0 3 1 Result Diagram: 12/12/17 0457 12/12/17456 Objective Remarks GENERAL: Elderly and frail female. In no acute distress. CARDIOVASCULAR: Normal rate and regular rhythm without murmurs, gallops, or rubs. RESPIRATORY: Diminished breath sounds at the bases bilaterally. Clear anteriorly. GASTROINTESTINAL: Abdomen soft, non-tender, non-distended. Normal active bowel sounds MUSCULOSKELETAL: Extremities without cyanosis. Left foot slightly more swollen compared to right. Some tenderness to palpation about the ankle joint. NEURO: Alert & Oriented x4 to person, place, time, situation. Moves all ext x4 PSYCH: Appropriate mood and affect. A/P Assessment and Plan 72-year-old female with: 1. Sepsis 2/2 pneumonia Abnormal UA but culture is negative Chest x-ray Showed bilateral basilar airspace disease that has worsened from previous, personally reviewed Blood cultures so far negative S/P Azithromycin and cefepime. Transition to oral Abx Duo nebs Prednisone 2. Hypokalemia replaced Monitor BMP 3. Atrial fibrillation Continue home medications Continue anticoagulation with Xarelto 4. Diabetes mellitus Continue Levemir Sliding-scale insulin Monitor blood glucose 5. Hypertension/hyperlipidemia/hypothyroidism Continue home medications 6. History of sclerotic bone lesions Patient known to Dr. Candelario Will need outpatient PET scan Follow-up as outpatient 7. Left foot pain: Some swelling noted. R/O DVT. Pain medication as needed Discharge Planning Continue treatment for sepsis. follow renal functions and electrolytes. Can potentially DC in 1-2 days back to SNF. Jason Fontana MD Dec 12, 2017 13:18
[2017-12-12] MEDS: MAGNESIUM SULFATE 1 GM PREMIX 100 ML IV SCH ×2 (13:45→15:05)
[2017-12-12] MEDS: ACETAMINOPHEN 325 MG TAB PO PRN (20:35)
[2017-12-12] MEDS: INSULIN DETEMIR 100 UNITS/ML VIAL SQ SCH (20:38)
--- NOTE | 2017-12-12 22:28 | RADRPT ---
EXAM DATE: 12/12/2017 10:19 PM EDT AGE/SEX: 72 years / Female INDICATIONS: Left leg edema. CLINICAL DATA: This is the patient's initial encounter. Patient reports that signs and symptoms have been present for 1 day and indicates a pain score of 1/10. MEDICAL/SURGICAL HISTORY: Transient ischemic attack. Hypothyroidism. Cerebral hemorrhage. Antic oagulant therapy. Atrial fibrillation. Hypertension. Chemotherapy. Colon cancer. Appendectomy. Cesa rean section. Oophorectomy. Colon resection. Hernia repair. COMPARISON: None. TECHNIQUE: Venous ultrasound of both lower extremities was performed from the inguinal ligament to t he proximal calf. Real-time, color Doppler and spectral tracing, compression and augmentation techni ques were used. FINDINGS: Normal compressibility. No echogenic noncompressible material seen. Normal venous wavef orms with augmentation. CONCLUSION: 1. The study is negative for lower extremity deep venous thrombosis. Electronically signed by: Antonio High MD 12/12/2017 10:27 PM EDT
[2017-12-12] MEDS: TEMAZEPAM 7.5 MG CAP PO PRN (22:34)
[2017-12-12] MEDS: AZITHROMYCIN INJ 500 MG in SODIUM CHLOR 0.9% 250 ML INJ 250 ML IV SCH (22:41)
[2017-12-13] VITALS (10 sets, daily range): BP systolic 115–135; BP diastolic 55–89; PULSE 55–71; RESP 18–20; TEMP 97.3–98.2; O2SAT 94–99
[2017-12-13] MEDS ORDERED: PRED20 PO (00:46)
[2017-12-13] MEDS: LEVOTHYROXINE SODIUM 50 MCG TAB PO SCH (06:39)
[2017-12-13] MEDS: OXYBUTYNIN CHLORIDE 5 MG TAB PO SCH ×3 (06:39→20:13)
[2017-12-13] MEDS: METOPROLOL TARTRATE 50 MG TAB PO SCH ×3 (06:39→20:13)
[2017-12-13] MEDS: INSULIN ASPART SUPPLEMENTAL SCALE SQ SCH ×4 (08:00→20:14)
[2017-12-13] MEDS: RIVAROXABAN 20 MG TAB PO SCH (08:06)
[2017-12-13] MEDS: DOCUSATE SODIUM 50 MG/SENNA 8.6 MG TAB PO SCH ×2 (08:07→20:05)
[2017-12-13] MEDS: CEFUROXIME AXETIL 500 MG TAB PO SCH ×2 (08:07→20:06)
[2017-12-13] MEDS: predniSONE 20 MG TAB PO SCH (08:07)
[2017-12-13] MEDS: LISINOPRIL 20 MG TAB PO SCH (08:07)
[2017-12-13] MEDS: amLODIPine BESYLATE 5 MG TAB PO SCH (08:07)
[2017-12-13] MEDS: VENLAFAXINE HCL XR 75 MG CAP PO SCH (08:08)
[2017-12-13] MEDS: ASPIRIN EC 81 MG TABEC PO SCH (08:08)
[2017-12-13] MEDS: DILTIAZEM-CD 240 MG CAP ER PO SCH (08:08)
[2017-12-13] MEDS: PRAVASTATIN SOD 40 MG TAB PO SCH (08:08)
[2017-12-13] MEDS: GABAPENTIN 300 MG CAP PO SCH ×3 (08:09→16:53)
[2017-12-13] MEDS: SODIUM CHLORIDE 0.9% FLUSH 10 ML FLUSH IV FLUSH SCH ×2 (08:09→20:09)
[2017-12-13] MEDS: AMIODARONE 200 MG TAB PO SCH (08:09)
--- NOTE | 2017-12-13 11:19 | RADRPT ---
EXAM DATE: 12/13/2017 10:08 AM EDT AGE/SEX: 72 years / Female INDICATIONS: Abdominal distention/pain. CLINICAL DATA: This is the patient's subsequent encounter. Patient reports that signs and symptoms h ave been present for 4 - 6 days and indicates a pain score of 6/10. MEDICAL/SURGICAL HISTORY: Hypertension. Carcinoma, colon. Appendectomy. Colon resection. Ooph orectomy. COMPARISON: [facility] – [place], ABDOMEN KUB ONLY, 11/04/2017. . FINDINGS: Moderate gaseous distention. There is no obvious free air. No significant stool in the right colon. D egenerative changes are seen about both hips CONCLUSION: Nonspecific bowel gas pattern. Sign report. . Electronically signed by: Javed Resendez MD 12/13/2017 11:18 AM EDT
[2017-12-13] MEDS ORDERED: SODIUM CHLOR 0.9% 1000 ML INJ 1,000 ML IV SCH (15:15)
[2017-12-13] MEDS ORDERED: SIMETHICONE 80 MG CHEWABLE TAB CHEW PRN (15:15)
--- NOTE | 2017-12-13 15:27 | HHI.PR ---
Subjective Remarks The patient was eating chili. She was looking forward to leaving the hospital soon. She said she worked with physical therapy and was able to stand up. She says she has some shortness of breath at times. She says her abdomen has been distended but she has been having bowel movements. She said that her legs have been swelling. Discussed with family at the bedside. Discussed with nursing. Objective Vitals Vital Signs Date Time Temp Pulse Resp B/P (MAP) Pulse Ox O2 Delivery O2 Flow Rate FiO2 12/13/17 12:00 97.3 62 18 130/89 (103) 99 12/13/17 08:00 69 12/13/17 08:00 Nasal Cannula 2.00 12/13/17 08:00 97.5 66 18 125/79 (94) 96 12/13/17 04:00 60 12/13/17 04:00 64 18 119/71 (87) 96 12/13/17 00:00 55 12/13/17 00:00 66 20 129/55 (79) 96 12/12/17 21:00 Nasal Cannula 2.00 97 12/12/17 21:00 68 12/12/17 21:00 97.4 86 16 137/76 (96) 98 12/12/17 18:00 76 12/12/17 17:00 74 12/12/17 16:59 97 Nasal Cannula 2.00 12/12/17 16:00 76 I/O 12/12/17 12/12/17 12/12/17 12/13/17 12/13/17 12/13/17 07:00 15:00 23:00 07:00 15:00 23:00 Intake Total 330 ml 200 ml 1060 ml 240 ml Output Total 600 ml 1550 ml 800 ml Balance -270 ml 200 ml -490 ml -560 ml Intake Oral 330 ml 960 ml 240 ml IV Total 200 ml 100 ml Output Urine Total 600 ml 1550 ml 800 ml # Bowel Movements 1 3 Result Diagram: 12/12/1745612/12/17456 Imaging Last Impressions Abdomen X-Ray 12/13/17 0000 Signed Impressions: CONCLUSION: Nonspecific bowel gas pattern. Sign report. . Lower Extremity Ultrasound 12/12/17 0000 Signed Impressions: CONCLUSION: 1. The study is negative for lower extremity deep venous thrombosis. Chest X-Ray 12/12/17 0000 Signed Impressions: CONCLUSION: Rotated examination with apparent mild improvement in bilateral pulmonary edema . Objective Remarks GENERAL: No acute distress. CARDIOVASCULAR: Normal rate and regular rhythm without murmurs, gallops, or rubs. RESPIRATORY: Diminished breath sounds at the bases bilaterally. GASTROINTESTINAL: Abdomen soft, non-tender, distended. Normal active bowel sounds MUSCULOSKELETAL: Extremities without cyanosis. Left foot slightly more swollen compared to right. Some tenderness to palpation about the ankle joint. NEURO: Alert & Oriented x4 to person, place, time, situation. Moves all ext x4 PSYCH: Appropriate mood and affect. A/P Assessment and Plan Sepsis/ Pneumonia Chest x-ray showed bilateral basilar airspace disease. Blood cultures so far negative. S/P Azithromycin and cefepime. - Transition to oral Abx. - Duo nebs. - d/c Prednisone. Hypokalemia Replaced. - Monitor BMP. - ADAT. Atrial fibrillation Rate controlled. - Continue home medications including anticoagulation with Xarelto. Diabetes mellitus Exacerbated by steroids. - Continue Levemir. - Sliding-scale insulin. - d/c prednisone. History of sclerotic bone lesions Patient known to Dr. Candelario. - Will need outpatient PET scan. Left foot pain Some swelling noted. US negative for DVT. - Pain medication as needed. - PT. Acute renal insufficiency Creatinine above baseline. - hold HCTZ and lisinopril. - IVFs. - follow BMP. PPx: Xarelto Discharge Planning Hopefully d/c to SNF in 1-2 days Robe Bowman DO Dec 13, 2017 15:27
[2017-12-13] MEDS: INSULIN ASPART 1,000 UNITS/10 ML VIAL SQ SCH (17:01)
[2017-12-13] MEDS: TEMAZEPAM 7.5 MG CAP PO PRN (20:05)
[2017-12-13] MEDS: AZITHROMYCIN 250 MG TAB PO SCH (20:05)
[2017-12-13] MEDS: ACETAMINOPHEN 325 MG TAB PO PRN (20:14)
[2017-12-13] MEDS: INSULIN DETEMIR 100 UNITS/ML VIAL SQ SCH (20:15)
[2017-12-14] VITALS (27 sets, daily range): BP systolic 122–135; BP diastolic 6–77; PULSE 60–98; RESP 18; TEMP 97.6–98.3; O2SAT 96–99
[2017-12-14] MEDS: METOPROLOL TARTRATE 50 MG TAB PO SCH ×3 (05:23→20:50)
[2017-12-14] MEDS: LEVOTHYROXINE SODIUM 50 MCG TAB PO SCH (05:23)
[2017-12-14] MEDS: OXYBUTYNIN CHLORIDE 5 MG TAB PO SCH ×3 (05:23→20:50)
[2017-12-14 05:27] LABS: HEMATOCRIT 29.5 % (35.0-46.0); HEMOGLOBIN 9.3 GM/DL (11.6-15.3); MEAN CELL VOLUME 84.5 FL (80.0-100.0); MEAN CORPUSCULAR HEMOGLOBIN 26.6 PG (27.0-34.0); MEAN CORPUSCULAR HGB CONC 31.5 % (32.0-36.0); MEAN PLATELET VOLUME 8.9 FL (7.0-11.0); PLATELET COUNT 268 TH/MM3 (150-450); RED CELL DISTRIBUTION WIDTH 18.9 % (11.6-17.2); WHITE BLOOD COUNT 8.1 TH/MM3 (4.0-11.0)
[2017-12-14 05:59] LABS: BICARBONATE 20.9 MEQ/L (21.0-32.0); CALCIUM 8.4 MG/DL (8.5-10.1); CREATININE 1.22 MG/DL (0.50-1.00)
[2017-12-14] MEDS: INSULIN ASPART 1,000 UNITS/10 ML VIAL SQ SCH ×3 (08:00→17:00)
[2017-12-14] MEDS: INSULIN ASPART SUPPLEMENTAL SCALE SQ SCH ×4 (08:00→20:48)
[2017-12-14] MEDS: DILTIAZEM-CD 240 MG CAP ER PO SCH (08:21)
[2017-12-14] MEDS: VENLAFAXINE HCL XR 75 MG CAP PO SCH (08:21)
[2017-12-14] MEDS: AMIODARONE 200 MG TAB PO SCH (08:21)
[2017-12-14] MEDS: DOCUSATE SODIUM 50 MG/SENNA 8.6 MG TAB PO SCH ×2 (08:21→20:40)
[2017-12-14] MEDS: CEFUROXIME AXETIL 500 MG TAB PO SCH ×2 (08:21→20:39)
[2017-12-14] MEDS: ASPIRIN EC 81 MG TABEC PO SCH (08:21)
[2017-12-14] MEDS: PRAVASTATIN SOD 40 MG TAB PO SCH (08:21)
[2017-12-14] MEDS: GABAPENTIN 300 MG CAP PO SCH ×2 (08:21→11:59)
[2017-12-14] MEDS: amLODIPine BESYLATE 5 MG TAB PO SCH (08:21)
[2017-12-14] MEDS: SODIUM CHLORIDE 0.9% FLUSH 10 ML FLUSH IV FLUSH SCH ×2 (08:22→20:40)
[2017-12-14] MEDS: RIVAROXABAN 20 MG TAB PO SCH (08:22)
[2017-12-14] MEDS: traMADol HCL 50 MG TAB PO PRN ×2 (11:51→20:39)
[2017-12-14] MEDS ORDERED: INSULIN DETEMIR 100 UNITS/ML VIAL SQ ONE (12:00)
--- NOTE | 2017-12-14 12:13 | HHI.PR ---
Subjective Remarks The patient stated that her left IV was leaking blood. She said that the pain in her left foot was still present. She thinks it is diabetic neuropathy. Her family was at the bedside. Discussed with nursing. Objective Vitals Vital Signs Date Time Temp Pulse Resp B/P (MAP) Pulse Ox O2 Delivery O2 Flow Rate FiO2 12/14/17 11:47 98 Nasal Cannula 3.00 12/14/17 08:30 98 Nasal Cannula 3.00 12/14/17 08:30 97.8 98 18 125/73 (90) 98 12/14/17 07:01 66 12/14/17 06:00 69 12/14/17 05:00 63 12/14/17 04:00 67 12/14/17 04:00 98.3 67 18 122/61 (81) 96 12/14/17 03:00 65 12/14/17 02:00 69 12/14/17 01:00 68 12/14/17 00:00 Nasal Cannula 2.00 12/14/17 00:00 64 12/14/17 00:00 98.0 64 18 127/69 (88) 96 12/13/17 23:00 63 12/13/17 22:00 68 12/13/17 21:00 70 12/13/17 20:00 71 12/13/17 20:00 98.2 71 20 135/65 (88) 97 12/13/17 17:10 97.8 66 18 115/70 (85) 94 12/13/17 16:00 70 I/O 12/13/17 12/13/17 12/13/17 12/14/17 12/14/17 12/14/17 07:00 15:00 23:00 07:00 15:00 23:00 Intake Total 240 ml 1144 ml 1240 ml Output Total 800 ml 1100 ml Balance -560 ml 1144 ml 140 ml Intake Oral 240 ml 1144 ml 240 ml IV Total 1000 ml Output Urine Total 800 ml 1100 ml # Bowel Movements 2 0 Result Diagram: 12/14/17 0503 12/14/17 0500 Imaging Last Impressions Abdomen X-Ray 12/13/17 0000 Signed Impressions: CONCLUSION: Nonspecific bowel gas pattern. Sign report. . Lower Extremity Ultrasound 12/12/17 0000 Signed Impressions: CONCLUSION: 1. The study is negative for lower extremity deep venous thrombosis. Chest X-Ray 12/12/17 0000 Signed Impressions: CONCLUSION: Rotated examination with apparent mild improvement in bilateral pulmonary edema . Objective Remarks GENERAL: No acute distress. CARDIOVASCULAR: Normal rate and regular rhythm without murmurs, gallops, or rubs. RESPIRATORY: Diminished breath sounds at the bases bilaterally. GASTROINTESTINAL: Abdomen soft, non-tender, distended. Normal active bowel sounds MUSCULOSKELETAL: Extremities without cyanosis. Left foot slightly more swollen compared to right. Some tenderness to palpation on the dorsal aspect. NEURO: Alert & Oriented x4 to person, place, time, situation. Moves all ext x4 PSYCH: Appropriate mood and affect. A/P Assessment and Plan Sepsis/ Pneumonia Chest x-ray showed bilateral basilar airspace disease. Blood cultures so far negative. S/P Azithromycin and cefepime. - Transition to oral Abx. - Duo nebs. - d/c Prednisone. Hypokalemia Replaced. - Monitor BMP. - ADAT. Atrial fibrillation Rate controlled. - Continue home medications including anticoagulation with Xarelto. Diabetes mellitus Exacerbated by steroids. - Continue Levemir. Add 10 units daily. - Sliding-scale insulin. - d/c prednisone. History of sclerotic bone lesions Patient known to Dr. Candelario. - Will need outpatient PET scan. Left foot pain Some swelling noted. US negative for DVT. - Pain medication as needed. - PT. - Increase gabapentin. - Foot x-ray. Acute renal insufficiency Creatinine above baseline. - hold HCTZ and lisinopril. - s/p IVFs. - follow BMP. PPx: Xarelto Discharge Planning DC to SNF if glucose controlled and foot pain is improved Robe Bowman DO Dec 14, 2017 12:13
[2017-12-14] MEDS: GABAPENTIN 400 MG CAP PO SCH ×2 (13:00→18:14)
--- NOTE | 2017-12-14 14:29 | RADRPT ---
EXAM DATE: 12/14/2017 2:20 PM EDT AGE/SEX: 72 years / Female INDICATIONS: Pain. No known injury. Pain on dorsal surface of metatarsals. CLINICAL DATA: This is the patient's subsequent encounter. Patient reports that signs and symptoms h ave been present for 2 months and indicates a pain score of 8/10. MEDICAL/SURGICAL HISTORY: . Hypertension. Carcinoma, colon. . Appendectomy. Colon resection. Oophorectomy. COMPARISON: [facility] [place], FOOT LEFT COMPLETE ([id number]), 11/27/2017. . FINDINGS: Bony structures are intact and in normal alignment. Degenerative changes. Moderate plantar calcaneal spur. Osseous density is normal. Soft tissues are prominent. No radiopaque foreign bodies seen. CONCLUSION: Degenerative changes without fracture. Electronically signed by: Jai Queen MD 12/14/2017 2:27 PM EDT
[2017-12-14] MEDS ORDERED: INSULIN ASPART 1,000 UNITS/10 ML VIAL SQ ONE (18:00)
[2017-12-14] MEDS: AZITHROMYCIN 250 MG TAB PO SCH (20:39)
[2017-12-14] MEDS: TEMAZEPAM 7.5 MG CAP PO PRN (20:40)
[2017-12-14] MEDS: INSULIN DETEMIR 100 UNITS/ML VIAL SQ SCH (20:41)
[2017-12-15] VITALS (14 sets, daily range): BP systolic 118–136; BP diastolic 66–77; PULSE 58–77; RESP 18; TEMP 98.1–98.8; O2SAT 96–98
[2017-12-15] MEDS: LEVOTHYROXINE SODIUM 50 MCG TAB PO SCH (05:43)
[2017-12-15] MEDS: METOPROLOL TARTRATE 50 MG TAB PO SCH (05:43)
[2017-12-15] MEDS: OXYBUTYNIN CHLORIDE 5 MG TAB PO SCH (05:43)
[2017-12-15 06:40] LABS: BICARBONATE 23.6 MEQ/L (21.0-32.0); CALCIUM 8.4 MG/DL (8.5-10.1); CREATININE 1.04 MG/DL (0.50-1.00); MAGNESIUM 1.8 MG/DL (1.5-2.5)
[2017-12-15] MEDS: INSULIN ASPART SUPPLEMENTAL SCALE SQ SCH ×2 (08:00→11:59)
[2017-12-15] MEDS: INSULIN ASPART 1,000 UNITS/10 ML VIAL SQ SCH ×2 (08:00→11:59)
[2017-12-15] MEDS: PRAVASTATIN SOD 40 MG TAB PO SCH (08:18)
[2017-12-15] MEDS: DILTIAZEM-CD 240 MG CAP ER PO SCH (08:18)
[2017-12-15] MEDS: DOCUSATE SODIUM 50 MG/SENNA 8.6 MG TAB PO SCH (08:18)
[2017-12-15] MEDS: GABAPENTIN 400 MG CAP PO SCH (08:18)
[2017-12-15] MEDS: ASPIRIN EC 81 MG TABEC PO SCH (08:18)
[2017-12-15] MEDS: RIVAROXABAN 20 MG TAB PO SCH (08:18)
[2017-12-15] MEDS: amLODIPine BESYLATE 5 MG TAB PO SCH (08:18)
[2017-12-15] MEDS: VENLAFAXINE HCL XR 75 MG CAP PO SCH (08:18)
[2017-12-15] MEDS: AMIODARONE 200 MG TAB PO SCH (08:19)
[2017-12-15] MEDS: SODIUM CHLORIDE 0.9% FLUSH 10 ML FLUSH IV FLUSH SCH (08:19)
[2017-12-15] MEDS: CEFUROXIME AXETIL 500 MG TAB PO SCH (08:19)
[2017-12-15] MEDS: INSULIN DETEMIR 100 UNITS/ML VIAL SQ SCH (08:20)
[2017-12-15] MEDS ORDERED: VENL75XR PO (10:08)
[2017-12-15] MEDS ORDERED: TRAM50 PO (10:08)
[2017-12-15] MEDS ORDERED: CEFU1TAB20 PO (10:08)
[2017-12-15] MEDS ORDERED: TEMA7.5C9 PO (10:08)
[2017-12-15] MEDS ORDERED: NEUR400C PO (10:08)
--- NOTE | 2017-12-15 10:09 | HHI.DCPOC ---
Discharge Care Plan Diagnosis: (1) Physical deconditioning (2) Diabetes mellitus, type II (3) PNA (pneumonia) (4) Acute kidney failure (5) Pain in left foot Goals to Promote Your Health * To prevent worsening of your condition and complications * To maintain your health at the optimal level Directions to Meet Your Goals Take your medications as prescribed Follow your dietary instruction Follow activity as directed Keep your appointments as scheduled Take your immunizations and boosters as scheduled If your symptoms worsen call your PCP, if no PCP go to Urgent Care Center or Emergency Room Smoking is Dangerous to Your Health. Avoid second hand smoke Call the 24-hour hour crisis hotline for domestic abuse at Robe Bowman DO Dec 15, 2017 10:09
--- NOTE | 2017-12-15 10:17 | HHI.DS ---
Discharge Summary Admission Date Dec 10, 2017 at 01:02 Discharge Date: Dec 15, 2017 Admitting Diagnosis Sepsis, Respiratory distress on Bipap (1) Physical deconditioning ICD Code: R53.81 - Other malaise Status: Acute (2) Respiratory failure ICD Code: J96.90 - Respiratory failure, unspecified, unspecified whether with hypoxia or hypercapnia Diagnosis: Principal Status: Resolved (3) Diabetes mellitus, type II ICD Code: E11.9 - Type 2 diabetes mellitus Diagnosis: Principal Status: Chronic (4) PNA (pneumonia) ICD Code: J18.9 - Pneumonia, unspecified organism Diagnosis: Principal Status: Acute (5) Delirium ICD Code: R41.0 - Disorientation, unspecified Status: Resolved (6) Acute kidney failure ICD Code: N17.9 - Acute kidney failure, unspecified Diagnosis: Principal Status: Resolved (7) Pain in left foot ICD Code: M79.672 - Pain in left foot Diagnosis: Principal Status: Acute Procedures None Brief History - From Admission 72-year-old female with a past medical history significant for previous colon cancer, diabetes mellitus, hypertension, hyperlipidemia and atrial fibrillation status post ablation 2 anticoagulated on Xarelto presents to the emergency department from her [facility] facility for altered mental status. Per her son who has been with her for several days approximately 3 days ago she began hallucinating. This was reported to nursing staff at the time. The son also reports that his mother has had increasing fatigue and will doze off regularly, sometimes in the middle of a conversation. She has had increasing confusion. Today she hallucinated that there were people in her room and reacted to them. She was just discharged from the hospital on 12/02/17 where she was treated for urosepsis. The patient's hospital course was complicated by C. difficile infection for which she was treated. She also had a CT scan with widespread sclerotic bone lesions requiring a PET scan upon discharge and follow-up with her oncologist, Dr. Candelario. In her nursing facility the patient was noted to be hypoxic in the 80s with a fever to 102. She is confused during the time of our interview and is unable to answer the majority of my questions. History obtained from her son's, ED documentation in the medical record. CBC/BMP: 12/14/17 0503 12/15/17 0553 Significant Findings Laboratory Tests Test 12/14/17 05:00 12/14/17 05:03 12/15/17 05:53 Blood Urea Nitrogen 35 MG/DL (7-18) 39 MG/DL (7-18) Creatinine 1.22 MG/DL (0.50-1.00) 1.04 MG/DL (0.50-1.00) Random Glucose 417 MG/DL (74-106) 181 MG/DL (74-106) Calcium Level 8.4 MG/DL (8.5-10.1) 8.4 MG/DL (8.5-10.1) Carbon Dioxide Level 20.9 MEQ/L (21.0-32.0) Estimat Glomerular Filtration Rate 43 ML/MIN (>89) 52 ML/MIN (>89) Red Blood Count 3.50 MIL/MM3 (4.00-5.30) Hemoglobin 9.3 GM/DL (11.6-15.3) Hematocrit 29.5 % (35.0-46.0) Mean Corpuscular Hemoglobin 26.6 PG (27.0-34.0) Mean Corpuscular Hemoglobin Concent 31.5 % (32.0-36.0) Red Cell Distribution Width 18.9 % (11.6-17.2) Imaging Last Impressions Foot X-Ray 12/14/17 Signed Impressions: CONCLUSION: Degenerative changes without fracture. Abdomen X-Ray 12/13/17 Signed Impressions: CONCLUSION: Nonspecific bowel gas pattern. Sign report. . Lower Extremity Ultrasound 12/12/17 Signed Impressions: CONCLUSION: 1. The study is negative for lower extremity deep venous thrombosis. Chest X-Ray 12/12/17 Signed Impressions: CONCLUSION: Rotated examination with apparent mild improvement in bilateral pulmonary edema . PE at Discharge GENERAL: No acute distress. CARDIOVASCULAR: Normal rate and regular rhythm without murmurs, gallops, or rubs. RESPIRATORY: Diminished breath sounds at the bases bilaterally. GASTROINTESTINAL: Abdomen soft, non-tender, distended. Normal active bowel sounds MUSCULOSKELETAL: Extremities without cyanosis. Left foot slightly more swollen compared to right. Some tenderness to palpation on the dorsal aspect. NEURO: Alert & Oriented x4 to person, place, time, situation. Moves all ext x4 PSYCH: Appropriate mood and affect. Pt update on day of discharge The patient was resting comfortably in bed. She said that her foot pain was better. Her family was at the bedside. Their questions were answered. Discussed with nursing and case management. Hospital Course Sepsis/ Pneumonia Chest x-ray showed bilateral basilar airspace disease. Blood cultures were negative. S/P Azithromycin and cefepime. The pt will complete a course of Ceftin. She received Duonebs as needed. She completed a course of prednisone. Hypokalemia The pt received supplementation. She will continue KCl upon discharge. Atrial fibrillation Rate controlled. We continued her home medications including anticoagulation with Xarelto. Diabetes mellitus Exacerbated by steroids. Prednisone was discontinued. We adjusted Levemir and prandial insulin. She will resume her home regimen upon discharge. History of sclerotic bone lesions Patient known to Dr. Candelario. Will need PET scan and outpt follow-up. Left foot pain Some swelling noted. US negative for DVT. Foot x ray negative. She received pain medication as needed. She worked with PT/ OT. We increased her gabapentin dose with improvement in her symptoms. Acute renal insufficiency We discontinued her HCTZ and lisinopril. S/p IVFs. Her creatinine improved. She will follow up with her PCP. Pt Condition on Discharge: Stable Discharge Disposition: Discharge to SNF Discharge Time: > 30 minutes Discharge Instructions DIET: Follow Instructions for: Diabetic Diet Activities you can perform: Weight Bearing as Ana Follow up Referrals: Oncology/Hematology - As Per Protocol with Sly Candelario MD PCP Follow-up - 1 Week New Medications: Potassium Chloride ER (Potassium Chloride ER) 20 Meq Tab 20 MEQ PO DAILY for Electrolyte Replacement, #14 TAB 0 Refills Cefuroxime (Cefuroxime) 500 Mg Tab 500 MG PO Q12HR for Infection for 2 Days, TAB Gabapentin (Neurontin) 400 Mg Cap 800 MG PO TID for Neuropathy, #60 CAP Prednisone (Prednisone) 20 Mg Tab 20 MG PO DAILY, #3 TAB Tramadol (Ultram) 50 Mg Tab 50 MG PO Q4H PRN for pain 3-10, #12 TAB Venlafaxine ER 24 HR (Effexor XR 24 HR) 75 Mg Cap 75 MG PO DAILY for Depression Control, #30 CAP Continued Medications: Amiodarone (Amiodarone) 100 Mg Tab 100 MG PO DAILY for Regulate Heart Beat, #30 TAB 0 Refills Amlodipine (Norvasc) 5 Mg Tab 5 MG PO DAILY, #[address] (Adult Aspirin EC Low Strength) 81 Mg Tabec 162 MG PO DAILY for Stroke Prevention for 30 Days, #30 TAB 1 Refill Commode 3-in-1 (Commode 3-in-1) 1 Mis Mis EA .ROUTE DIRECTED, #1 0 Refills Diltiazem CD 24 HR (Cardizem CD 24 HR) 240 Mg Caper 240 MG PO DAILY for Blood Pressure Management for 30 Days, #30 CAP 1 Refill Insulin Aspart Inj (Novolog Inj) 100 Unit/Ml Inj 1 INJECTION SQ ACHS SLIDING SCALE, #1 INJECTION Insulin Detemir Inj (Levemir Inj) 1,000 unit/ 10 ML Vial 6 UNITS SQ HS, #1 INJECTION Do not mix with any other Insulin. Lactobacillus Acidophilus (Acidophilus/l-Sporogenes) 35 Million Cell-25 Million Cell Tab 1 TAB PO Q12HR, #30 TAB Levothyroxine (Levothyroxine) 50 Mcg Tab 50 MCG PO DAILY for Thyroid for 30 Days, #30 TAB 1 Refill Metformin HCl (Metformin HCl ER) 1,000 Mg [id number] Metoprolol Tartrate (Lopressor) 50 Mg Tab 50 MG PO Q8HR, #30 TAB Oxybutynin (Ditropan) 5 Mg Tab 5 MG PO Q8HR for Urinary Symptom Managemen, #90 TAB 0 Refills Pravastatin (Pravachol) 40 Mg Tab 40 MG PO DAILY for Cholesterol Management for 30 Days, #30 TAB 6 Refills Rivaroxaban (Xarelto) 20 Mg Tab 20 MG PO DAILY for Blood Clot Prevention, #30 TAB 6 Refills Temazepam (Restoril) 7.5 Mg Cap 7.5 MG PO HS PRN for INSOMNIA, #30 CAP (This prescription has been renewed) Walker Rolling/GetGo (Walker Rolling/GetGo) 1 Mis Mis EA .ROUTE DIRECTED, #1 Wheelchair (Wheelchair) 1 Mis Mis EA .ROUTE DIRECTED, #1 0 Refills Discontinued Medications: Gabapentin (Gabapentin) 600 Mg Tab 600 MG PO TID, #90 TAB 0 Refills Hydrochlorothiazide (Hydrochlorothiazide) 25 Mg Tab 25 MG PO DAILY, #30 TAB Hydrocodone/Acetaminophen (Hydrocodone-Acetamin 5-325 mg) 5 Mg-325 Mg Tablet 1 TAB PO Q4H PRN for PAIN GREATER THAN 5, #20 Lisinopril (Lisinopril) 40 Mg Tab 40 MG PO DAILY for Blood Pressure Management, #30 TAB 0 Refills Melatonin (Melatonin) 10 Mg-1 Mg Tab 10 MG PO HS PRN for SLEEP, TAB 0 Refills Vancomycin (Vancomycin) 125 Mg Cap 125 MG PO QID for Infection, #28 CAP 0 Refills Venlafaxine ER 24 HR (Venlafaxine ER 24 HR) 150 Mg Tab 150 MG PO DAILY, #30 TAB 0 Refills Robe Bowman DO Dec 15, 2017 10:17
[2017-12-15] MEDS ORDERED: POTA-163 PO (10:25)
[2017-12-15] MEDS ORDERED: POTASSIUM CHLORIDE 20 MEQ CONTROLLED RELEASE TAB PO ONE (10:30)
== END 2017-12-15 12:30 | DRG 871 ==
LOC: NEPE 21:32 → NEDA 12-10 01:02 → N03B 12-10 04:05 → HCIS 12-10 11:46
PROVIDERS: ADMIT Hospitalist; ATTEND Hospitalist
PROC: 5A09357 Assistance with Respiratory Ventilation, Less than 24 Consecutive Hours, Continuous Positive Airway Pressure (ICD-10-PCS; principal; 2017-12-10)
DX: A41.9 Sepsis, unspecified organism (principal); J18.9 Pneumonia, unspecified organism; J96.91 Respiratory failure, unspecified with hypoxia; N17.9 Acute kidney failure, unspecified; E11.40 Type 2 diabetes mellitus with diabetic neuropathy, unspecified; I48.91 Unspecified atrial fibrillation; I10 Essential (primary) hypertension; E03.9 Hypothyroidism, unspecified; E78.5 Hyperlipidemia, unspecified; E87.6 Hypokalemia; M89.9 Disorder of bone, unspecified; T38.0X5A Adverse effect of glucocorticoids and synthetic analogues, initial encounter; R41.0 Disorientation, unspecified; F32.9 Major depressive disorder, single episode, unspecified; Z79.01 Long term (current) use of anticoagulants; Z79.4 Long term (current) use of insulin; Z85.038 Personal history of other malignant neoplasm of large intestine; Z86.73 Personal history of transient ischemic attack (TIA), and cerebral infarction without residual deficits; Z87.891 Personal history of nicotine dependence; Z88.5 Allergy status to narcotic agent; Z88.2 Allergy status to sulfonamides; Z92.21 Personal history of antineoplastic chemotherapy; Z99.81 Dependence on supplemental oxygen
CPT/HCPCS: 36600; 71045; 73630; 74018; 80048; 80053; 81001; 82550; 82805; 82948; 83605; 83690; 83735; 83880; 84484; 85025; 85027; 85610; 85730; 86140; 87040; 87086; 87493; 87641; 93005; 93971; 94002; 94003; 94150; 94640; 94664; 96365; 96366; 96368; J0456; J0692; J1815; J2920; J2930; J3475; J3480; J7030; J7050; J7512

== ENCOUNTER 2018-01-11 01:28 | Inpatient (IN) ==
[2018-01-11] MEDS ORDERED: Piperacil/Tazo 4.5 GM Premix 4.5 GM/100 ML BAG IV.SIG STA (01:32)
[2018-01-11] MEDS ORDERED: Vancomycin Inj 1,000 MG in Sodium Chlor 0.9% Inj 250 ML IV.SIG STA (01:32)
[2018-01-11] MEDS ORDERED: Acetaminophen 120 MG Supp RECTAL ONE (01:36)
--- NOTE | 2018-01-11 01:50 | ED ---
HPI General Chief Complaint: Shortness of Breath/Dyspnea Stated Complaint: medical Time Seen by Provider: 01/11/18 01:31 Source: EMS, RN notes reviewed and old records reviewed Mode of arrival: EMS Limitations: other (Clinical condition) History of Present Illness Patient is a 72-year-old female with past medical history significant for colon cancer, DMII, HTN, HLD and atrial fibrillation status post ablation 2 currently on Xarelto for anticoagulation was brought in from the correction due to respiratory distress. Paramedics report that she was hypoxic with O2 saturation in the 80s and fever. Patient had almost the exact presentation on of this year where she was admitted with diagnosis of pneumonia. Minimal improvement on nonrebreather and CPAP. Patient is answering questions. MD Complaint: shortness of breath Context: recent illness Severity: similar to previous episodes Known history of: congestive heart failure Associated symptoms: fever, cough and wheezing Treatment prior to arrival: oxygen and other (CPAP) Related Data Home Medications Medication Instructions Recorded Confirmed amiodarone 100 mg PO DAILY 01/11/18 02/11/18 aspirin [Aspirin Low Dose] 81 mg PO DAILY 01/11/18 02/11/18 diltiazem HCl 240 mg PO DAILY 01/11/18 02/11/18 gabapentin 800 mg PO TID 01/11/18 02/11/18 insulin detemir U-100 [Levemir 6 unit SUB-Q QPM 01/11/18 02/11/18 U-100 Insulin] levothyroxine 50 mcg PO DAILY 01/11/18 02/11/18 oxybutynin chloride 5 mg PO TID 01/11/18 02/11/18 potassium chloride 20 meq PO DAILY 01/11/18 02/11/18 pravastatin 40 mg PO DAILY 01/11/18 02/11/18 rivaroxaban [Xarelto] 20 mg PO DAILY 01/11/18 02/11/18 venlafaxine 75 mg PO DAILY 01/11/18 02/11/18 Previous Rx's Medication Instructions Recorded metoprolol tartrate 50 mg PO DAILY #0 tab 01/16/18 tramadol 50 mg PO Q6H PRN #8 tab 01/16/18 hydrocodone-acetaminophen [[place]] 1 - 2 tab PO Q4-6H #50 tab 02/12/18 Lactobacillus acidoph-L.bulgar 1 tab PO BID #60 tab 02/17/18 [Lactinex] furosemide 40 mg PO DAILY #30 tab 02/17/18 sennosides-docusate sodium [Senna 1 tab PO BID #60 tab 02/17/18 Plus] ergocalciferol (vitamin D2) 50,000 unit PO Q7D #5 cap 02/18/18 Allergies Allergy/AdvReac Type Severity Reaction Status Date / Time codeine Allergy Severe Nausea/Vomi Verified 02/11/18 15:02 ting Sulfa (Sulfonamide Allergy Severe Anaphylaxis Verified 02/11/18 15:02 Antibiotics) METAL Allergy Intermediate hives Uncoded 02/11/18 15:02 SURGICAL STEEL Allergy Intermediate hives Uncoded 02/11/18 15:02 Review of Systems ROS Unobtainable unobtainable due to mental condition PMFSH History History Provided By: Medical Record and Mold Making 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 / EMT Medical History Medical History Chronic anemia (Chronic) CHF (congestive heart failure) (Chronic) Port-A-Cath in place (Acute) Diastolic heart failure (Acute) Secondary malignant neoplasm (Acute) UTI (urinary tract infection) (Acute) Pneumonia (Acute) Sepsis (Acute) Insomnia (Acute) Depression (Acute) Weakness (Acute) Overactive bladder (Acute) Hypertension (Chronic) Neuropathy (Chronic) Hyperlipemia (Acute) A-fib (Chronic) Diabetes (Chronic) Hypothyroidism (Acute) CHF (congestive heart failure) (Acute) Diabetes (Acute) Surgical History Surgical History H/O hernia repair (Acute) H/O esophagogastroduodenoscopy (Acute) History of colonoscopy (Acute) Hx of section (Acute) Hx of appendectomy (Acute) S/P ablation of atrial fibrillation (Acute) H/O colectomy (Acute) Social History Social History Substance History: No History of Abuse Second Hand Smoke Exposure: No Smoking Status: Never smoker Number of Pack-Years (if former smoker): 10 Smoking End Date: 2009 How Often Do You Have a Drink Containing Alcohol: Never Hx Recent Travel: No Recent Travel in [facility] within the Last 8 Weeks: No Recent Out of Country Travel within the Last 8 Weeks: No Exam Narrative Exam Narrative: GENERAL: Acute respiratory distress. Appears toxic. Responds to questions and commands. SKIN: Focused skin assessment warm/dry. Mottling on the proximal bilateral thighs. HEAD: Atraumatic. Normocephalic. EYES: Pupils equal and round. No scleral icterus. No injection or drainage. ENT: No nasal bleeding or discharge. Mucous membranes dry. NECK: Trachea midline. No JVD. CARDIOVASCULAR: Irregularly irregular rhythm. Normal rhythm no murmur appreciated. GASTROINTESTINAL: Abdomen soft, non-tender, nondistended. Hepatic and splenic margins not palpable. MUSCULOSKELETAL: No obvious deformities. No clubbing. No cyanosis. No edema. NEUROLOGICAL: Awake and alert. No obvious cranial nerve deficits. Motor grossly within normal limits. Normal speech. PSYCHIATRIC: Appropriate mood and affect; insight and judgment normal. Resp Effort & Inspection: cough, nasal flaring, tachypneic and uses accessory muscles Auscultation: crackles bilaterally, diminished lung sounds bilaterally and wheezes expiratory wheezes and scattered wheezes Cardio Jugular venous pressure: no JVD Palpation: normal PMI Rhythm: abnormal rhythm irregularly irregular Pulses: radial pulses present bilaterally and dorsalis pedis present bilaterally Other: Bilateral pitting edema up according to EMS that is normal for her she is on Lasix. External Female Exam: external appearance normal Neuro General: alert, awake, oriented x3 and CN's II-XI intact bilaterally Course Initial Documented Vital Signs Pulse Oximetry 80 L 01/11/18 01:30 Last Documented Vital Signs Temperature 101.6 F H 01/11/18 04:00 Pulse Rate 82 01/11/18 04:00 Respiratory Rate 20 01/11/18 04:00 Blood Pressure 95/54 L 01/11/18 04:00 Pulse Oximetry 99 01/11/18 04:00 Critical Care Time Critical Care Time: Yes Total Critical Care Time: 30 Attestation: Patient needs airway stabilization with BiPAP to help her oxygenation a antibiotics for urosepsis and is admitted to the ICU. Lasix 40 mg IVP and ICU urosepsis CHF Sign Out Sign Out Data: Patient Sign Out occurred on 01/11/18 at 02:30. Patient's care was discussed, and care was transferred from Jerry Harris DO to Jovany Cormier. Sign Out Comment: Patient CARE transition to a physician that is currently on D- Pod. Initial evaluation performed by me while the ED physician was in a complicated Trauma case Last updated by Jerry Harris DO at 01/11/18 02:28 Post-Handoff Eval: pt has CXR showing severe fluid edema in all wang however reading is it could be fluid or consolidations Vanco Zosyn given and BIPAP AND LASIX I discussed case with Dr Anderson and the family members bedside Medical Decision Making Lab Data Result diagrams: 01/11/18 01:45 01/11/18 01:45 Lab Results 01/11/18 01/11/18 01/11/18 Range/Units 01:40 01:40 01:45 WBC (4.0-11.0) th/mm3 RBC (4.00-5.30) mil/mm3 Hgb (11.6-15.3) gm/dL Hct (35.0-46.0) % MCV (80.0-100.0) fL MCH (27.0-34.0) pg MCHC (32.0-36.0) % RDW (11.6-17.2) % Plt Count (150-450) th/mm3 MPV (7.0-11.0) fL Neut % (Auto) (16.0-70.0) % Lymph % (Auto) (9.0-44.0) % [place] % (Auto) (0.0-8.0) % Eos % (Auto) (0.0-4.0) % Baso % (Auto) (0.0-2.0) % Neut # (Auto) (1.8-7.7) th/mm3 Lymph # (Auto) (1.0-4.8) th/mm3 [place] # (Auto) (0.0-0.9) th/mm3 Eos # (Auto) (0.0-0.4) th/mm3 Baso # (Auto) (0.0-0.2) th/mm3 WBC Differential Differential Comment PT 17.9 H (9.8-11.6) sec INR 1.8 Ratio APTT 32.0 H (24.3-30.1) sec Puncture Site Right radial Patient Temperature 98.6 O2 Saturation 97 (90-100) % ABG pH 7.39 (7.380-7.420) ABG pCO2 51 H* (38-42) mmHg ABG pO2 134 H (61-120) mmHg ABG HCO3 30 H (22-26) mmol/L ABG O2 Content 13.4 (12.0-20.0) Vol % ABG Base Excess 5.7 H (-2-2) mmol/L ABG Methemoglobin 0.5 (0-2) % Ricardo Test Present Hemoglobin 9.6 L (12.0-16.0) G/DL Carboxyhemoglobin 2.0 (0-4) % O2 Delivery Device Bipap Vent Setting 12/5 Inspired O2 100 % Critical Value Yes Sodium (136-145) meq/L Potassium (3.5-5.1) meq/L Chloride (98-107) meq/L Carbon Dioxide (21.0-32.0) meq/L Anion Gap (5-15) meq/L BUN (7-18) mg/dL Creatinine (0.50-1.00) mg/dL Estimated GFR (>89) mL/min POC Glucose (68-110) mg/dl Random Glucose (74-106) mg/dL Lactic Acid (0.4-2.0) mmol/L Calcium (8.5-10.1) mg/dL Total Bilirubin (0.2-1.0) mg/dL AST (15-37) U/L ALT (10-53) U/L Alkaline Phosphatase (45-117) U/L Total Creatine Kinase (26-192) U/L Troponin I (0.02-0.05) ng/mL B-Natriuretic Peptide (0-100) pg/mL Total Protein (6.4-8.2) g/dL Albumin (3.4-5.0) g/dL Urine Color Yellow (Yellw/Straw) Urine Clarity Cloudy H (Clear) Urine pH 6.0 (5.0-8.5) Ur Specific [place] 1.010 (1.002-1.035) Urine Protein 100 H (Neg-Trace) mg/dL Urine Glucose (UA) Negative (Negative) mg/dL Urine Ketones Negative (Negative) mg/dL Urine Occult Blood Small H (Negative) Urine Nitrate Negative (Negative) Urine Bilirubin Negative (Negative) Urine Urobilinogen Less than 2 (Less than 2) mg/dL Ur Leukocyte Esterase Large H (Negative) Urine RBC 11 H (0-3) /hpf Urine WBC (0-5) /hpf Urine WBC Clumps Many H (None) Ur Squamous Epith Cells 1 (0-5) /hpf Urine Bacteria Rare H (None) /hpf Hyaline Casts 4 (0-3) /lpf 01/11/18 01/11/18 01/11/18 Range/Units 01:45 01:45 01:45 WBC 13.2 H (4.0-11.0) th/mm3 RBC 4.06 (4.00-5.30) mil/mm3 Hgb 10.2 L (11.6-15.3) gm/dL Hct 32.4 L (35.0-46.0) % MCV 79.7 L (80.0-100.0) fL MCH 25.1 L (27.0-34.0) pg MCHC 31.5 L (32.0-36.0) % RDW 17.9 H (11.6-17.2) % Plt Count 369 D (150-450) th/mm3 MPV 8.1 (7.0-11.0) fL Neut % (Auto) 89.3 H (16.0-70.0) % Lymph % (Auto) 5.4 L (9.0-44.0) % [place] % (Auto) 2.5 (0.0-8.0) % Eos % (Auto) 2.1 (0.0-4.0) % Baso % (Auto) 0.7 (0.0-2.0) % Neut # (Auto) 11.8 H (1.8-7.7) th/mm3 Lymph # (Auto) 0.7 L (1.0-4.8) th/mm3 [place] # (Auto) 0.3 (0.0-0.9) th/mm3 Eos # (Auto) 0.3 (0.0-0.4) th/mm3 Baso # (Auto) 0.1 (0.0-0.2) th/mm3 WBC Differential . Differential Comment Auto diff final PT (9.8-11.6) sec INR Ratio APTT (24.3-30.1) sec Puncture Site Patient Temperature O2 Saturation (90-100) % ABG pH (7.380-7.420) ABG pCO2 (38-42) mmHg ABG pO2 (61-120) mmHg ABG HCO3 (22-26) mmol/L ABG O2 Content (12.0-20.0) Vol % ABG Base Excess (-2-2) mmol/L ABG Methemoglobin (0-2) % Ricardo Test Hemoglobin (12.0-16.0) G/DL Carboxyhemoglobin (0-4) % O2 Delivery Device Vent Setting Inspired O2 % Critical Value Sodium (136-145) meq/L Potassium (3.5-5.1) meq/L Chloride (98-107) meq/L Carbon Dioxide (21.0-32.0) meq/L Anion Gap (5-15) meq/L BUN (7-18) mg/dL Creatinine (0.50-1.00) mg/dL Estimated GFR (>89) mL/min POC Glucose (68-110) mg/dl Random Glucose (74-106) mg/dL Lactic Acid (0.4-2.0) mmol/L Calcium (8.5-10.1) mg/dL Total Bilirubin (0.2-1.0) mg/dL AST (15-37) U/L ALT (10-53) U/L Alkaline Phosphatase (45-117) U/L Total Creatine Kinase 33 (26-192) U/L Troponin I Less than 0.02 L (0.02-0.05) ng/mL B-Natriuretic Peptide 263 H (0-100) pg/mL Total Protein (6.4-8.2) g/dL Albumin (3.4-5.0) g/dL Urine Color (Yellw/Straw) Urine Clarity (Clear) Urine pH (5.0-8.5) Ur Specific [place] (1.002-1.035) Urine Protein (Neg-Trace) mg/dL Urine Glucose (UA) (Negative) mg/dL Urine Ketones (Negative) mg/dL Urine Occult Blood (Negative) Urine Nitrate (Negative) Urine Bilirubin (Negative) Urine Urobilinogen (Less than 2) mg/dL Ur Leukocyte Esterase (Negative) Urine RBC (0-3) /hpf Urine WBC (0-5) /hpf Urine WBC Clumps (None) Ur Squamous Epith Cells (0-5) /hpf Urine Bacteria (None) /hpf Hyaline Casts (0-3) /lpf 01/11/18 01/11/18 01/11/18 Range/Units 01:45 01:50 02:23 WBC (4.0-11.0) th/mm3 RBC (4.00-5.30) mil/mm3 Hgb (11.6-15.3) gm/dL Hct (35.0-46.0) % MCV (80.0-100.0) fL MCH (27.0-34.0) pg MCHC (32.0-36.0) % RDW (11.6-17.2) % Plt Count (150-450) th/mm3 MPV (7.0-11.0) fL Neut % (Auto) (16.0-70.0) % Lymph % (Auto) (9.0-44.0) % [place] % (Auto) (0.0-8.0) % Eos % (Auto) (0.0-4.0) % Baso % (Auto) (0.0-2.0) % Neut # (Auto) (1.8-7.7) th/mm3 Lymph # (Auto) (1.0-4.8) th/mm3 [place] # (Auto) (0.0-0.9) th/mm3 Eos # (Auto) (0.0-0.4) th/mm3 Baso # (Auto) (0.0-0.2) th/mm3 WBC Differential Differential Comment PT (9.8-11.6) sec INR Ratio APTT (24.3-30.1) sec Puncture Site Patient Temperature O2 Saturation (90-100) % ABG pH (7.380-7.420) ABG pCO2 (38-42) mmHg ABG pO2 (61-120) mmHg ABG HCO3 (22-26) mmol/L ABG O2 Content (12.0-20.0) Vol % ABG Base Excess (-2-2) mmol/L ABG Methemoglobin (0-2) % Ricardo Test Hemoglobin (12.0-16.0) G/DL Carboxyhemoglobin (0-4) % O2 Delivery Device Vent Setting Inspired O2 % Critical Value Sodium 140 (136-145) meq/L Potassium 3.2 L (3.5-5.1) meq/L Chloride 101 (98-107) meq/L Carbon Dioxide 32.6 H (21.0-32.0) meq/L Anion Gap 6 (5-15) meq/L BUN 11 (7-18) mg/dL Creatinine 1.20 H (0.50-1.00) mg/dL Estimated GFR 44 L (>89) mL/min POC Glucose 163 H (68-110) mg/dl Random Glucose 153 H (74-106) mg/dL Lactic Acid 1.5 (0.4-2.0) mmol/L Calcium 8.2 L (8.5-10.1) mg/dL Total Bilirubin 0.4 (0.2-1.0) mg/dL AST 21 (15-37) U/L ALT 13 (10-53) U/L Alkaline Phosphatase 175 H (45-117) U/L Total Creatine Kinase (26-192) U/L Troponin I (0.02-0.05) ng/mL B-Natriuretic Peptide (0-100) pg/mL Total Protein 8.2 (6.4-8.2) g/dL Albumin 3.1 L (3.4-5.0) g/dL Urine Color (Yellw/Straw) Urine Clarity (Clear) Urine pH (5.0-8.5) Ur Specific [place] (1.002-1.035) Urine Protein (Neg-Trace) mg/dL Urine Glucose (UA) (Negative) mg/dL Urine Ketones (Negative) mg/dL Urine Occult Blood (Negative) Urine Nitrate (Negative) Urine Bilirubin (Negative) Urine Urobilinogen (Less than 2) mg/dL Ur Leukocyte Esterase (Negative) Urine RBC (0-3) /hpf Urine WBC (0-5) /hpf Urine WBC Clumps (None) Ur Squamous Epith Cells (0-5) /hpf Urine Bacteria (None) /hpf Hyaline Casts (0-3) /lpf Imaging Data Radiologist's impression: Chest X-Ray 01/11/18 01:33 CONCLUSION: 1. Moderate severity bilateral pulmonary parenchymal opacity. Differential diagnosis is asymmetric pulmonary edema versus infection. 2. Small bilateral pleural effusions. 3. Chronic cardiac silhouette enlargement.
[2018-01-11 01:53] LABS: ABG Base Excess 5.7 mmol/L (-2-2); ABG PCO2 51 mmHg (38-42); ABG PO2 134 mmHg (61-120)
[2018-01-11] MEDS ORDERED: Acetaminophen 650 MG Supp RECTAL ONE (01:59)
[2018-01-11 02:08] LABS: Baso # (Auto) 0.1 th/mm3 (0.0-0.2); Baso % (Auto) 0.7 % (0.0-2.0); Eos # (Auto) 0.3 th/mm3 (0.0-0.4); Eos % (Auto) 2.1 % (0.0-4.0); Hematocrit 32.4 % (35.0-46.0); Hemoglobin 10.2 gm/dL (11.6-15.3); Lymph # (Auto) 0.7 th/mm3 (1.0-4.8); Lymph % (Auto) 5.4 % (9.0-44.0); Mean Corpuscular HGB Conc 31.5 % (32.0-36.0); Mean Corpuscular Hemoglobin 25.1 pg (27.0-34.0); Mean Corpuscular Volume 79.7 fL (80.0-100.0); Mean Platelet Volume 8.1 fL (7.0-11.0); Mono # (Auto) 0.3 th/mm3 (0.0-0.9); Mono % (Auto) 2.5 % (0.0-8.0); Neut # (Auto) 11.8 th/mm3 (1.8-7.7); Neut % (Auto) 89.3 % (16.0-70.0); Platelet Count 369 th/mm3 (150-450); Red Blood Count 4.06 mil/mm3 (4.00-5.30); Red Cell Distribution Width 17.9 % (11.6-17.2); White Blood Count 13.2 th/mm3 (4.0-11.0)
[2018-01-11 02:19] LABS: Bacteria,Urine Rare /hpf; Bilirubin,Urine Negative (Negative); Clarity,Urine Cloudy (Clear); Color,Urine Yellow (Yellw/Straw); Glucose,Urine (UA) Negative (Negative); Hyaline Casts,Urine 4 /lpf (0-3); Leukocyte Esterase,Urine Large (Negative); Nitrite,Urine Negative (Negative); Squamous Epithelial Cell,Urine 1 /hpf (0-5)
[2018-01-11 02:20] LABS: INR 1.8 Ratio; Prothrombin Time 17.9 sec (9.8-11.6)
--- NOTE | 2018-01-11 02:20 | XR ---
EXAM DATE: 01/11/2018 2:05 AM EDT AGE/SEX: 72 years / Female INDICATIONS: Fever and short of breath. CLINICAL DATA: This is the patient's initial encounter. Patient reports that signs and symptoms have been present for 1 day and indicates a pain score of Nonresponsive. MEDICAL/SURGICAL HISTORY: . Transient ischemic attack. Hypothyroidism. Cerebral hemorrhage. Ant icoagulant therapy. Atrial fibrillation. Hypertension. Chemotherapy. Colon cancer. . Appendectomy. section. Oophorectomy. Colon resection. Hernia repair. [place] [facility] [place]. . FINDINGS: Single AP view the chest. Right-sided [id number] is in place. Moderate severity bilateral pulmonar y parenchymal opacity with bilateral lower lung zone involvement and right upper lung zone involvemen t. Moderate severity cardiac silhouette enlargement. Small bilateral pleural effusions. No evidence o f pneumothorax. CONCLUSION: 1. Moderate severity bilateral pulmonary parenchymal opacity. Differential diagnosis is asymmetric p ulmonary edema versus infection. 2. Small bilateral pleural effusions. 3. Chronic cardiac silhouette enlargement. Electronically signed by: Prem Malave MD 01/11/2018 2:18 AM EDT
[2018-01-11 02:27] LABS: Alkaline Phosphatase 175 U/L (45-117); Total Protein 8.2 g/dL (6.4-8.2)
[2018-01-11 02:35] LABS: Alanine Aminotransferase 13 U/L (10-53); Albumin 3.1 g/dL (3.4-5.0); Anion Gap 6 meq/L (5-15); Aspartate Aminotransferase 21 U/L (15-37); Blood Urea Nitrogen 11 mg/dL (7-18); Calcium 8.2 mg/dL (8.5-10.1); Carbon Dioxide 32.6 meq/L (21.0-32.0); Chloride 101 meq/L (98-107); Glomerular Filtration Rate 44 mL/min (>89); Glucose,Random 153 mg/dL (74-106); Potassium 3.2 meq/L (3.5-5.1); Sodium 140 meq/L (136-145)
[2018-01-11 02:52] LABS: Creatine Kinase 33 U/L (26-192)
--- NOTE | 2018-01-11 04:42 | P.HPCC ---
History of Present Illness Service: Critical care medicine Primary Care Physician: Sheldon Dumont MD, R3 Chief Complaint: Fever and shortness of breath History of Present Illness: 72-year-old female with past medical history of colon cancer, recent CT with widespread bony lesions likely representing metastatic disease ( awaiting outpatient PET), diabetes mellitus, hypertension, hyperlipidemia, atrial fibrillation status post prior ablation who is anticoagulated on Xarelto , hypothyroidism, CKD stage III, pulmonary hypertension, diastolic heart failure who has been on 3 L chronic O2 at the detention.. She presents to [facility] emergency department from [facility] with chief complaint of fever and shortness of breath. Sats were in the 80s upon [facility] arrival. She was placed on CPAP by [facility] and transition to BiPAP upon arrival. She arouses on BiPAP and answers some questions. She states that she has been having a cough and "feels like there is something in there" but it has been nonproductive. She is short of breath, denies chest pain, has bilateral peripheral edema. She has had some mild nausea, no abdominal pain, no diarrhea. She was incontinent of urine earlier today but denies dysuria or flank pain. Her son accompanies her in the emergency department and he indicates that she was ambulating with a walker earlier today and he last saw her around 8 pm with no new complaints. Her white blood cell count is 13. She is febrile to 102.2. Urinalysis is consistent with UTI. Chest x-ray with cardiomegaly and bilateral pulmonary opacities which appear c/w pulmonary edema though could be pneumonia. Troponin 0.02, BNP 263. Blood cultures have been obtained and she has received Zosyn 4.5 g IV, vancomycin, Lasix 40 mg IV, albuterol neb, and Tylenol in the emergency department. She remains on BiPAP with respiratory rate in the 20s FiO2 70% with sats 95%. Nitroglycerin paste was ordered by the emergency department physician but has been held because blood pressure drifted down to 95/54. She has recent hospitalization 10/31 through 12/10 with urosepsis, respiratory failure intubated 11/01-11/05, C. difficile. She was discharged 12/10/17. She was readmitted with pneumonia and UTI. - Diagnosis (1) Acute hypoxemic respiratory failure (2) UTI (urinary tract infection) (3) Diabetes (4) Atrial fibrillation (5) Chronic anticoagulation (6) H/O malignant neoplasm of colon (7) Bone metastases (8) Pulmonary edema (9) Generalized weakness (10) Mild protein-energy malnutrition Inpatient Certification: I certify that the inpatient services were ordered in accordance with Medicare regulations governing the order. This includes certification that hospital inpatient services are reasonable and necessary and in the case of services not specified as inpatient-only under 42 CFR 419.22(n), that they are appropriately provided as inpatient services in accordance to with the 2-midnight benchmark under 43 CFR 412.3(e) Review of Systems All other systems reviewed negative except as stated in HPI PMFSH - History History Provided By: Patient, Family Member, Medical Record, Software Quality Assurance Specialist / EMT - Medical History Medical History: Medical History (Last Updated 01/11/18 @ 05:05 by Raven Anderson MD) A-fib CHF (congestive heart failure) Depression Diabetes Diastolic heart failure Hyperlipemia Hypertension Hypothyroidism Insomnia Neuropathy Overactive bladder Pneumonia Port-A-Cath in place Secondary malignant neoplasm Sepsis UTI (urinary tract infection) Weakness - Surgical History Surgical History: Surgical History (Last Reviewed 01/11/18 @ 05:04 by Raven Anderson MD) H/O colectomy - Family History Family History: Family History (Last Updated 01/11/18 @ 05:01 by Raven Anderson MD) Father Alcoholism Mother Breast cancer - Tobacco History Tobacco Use In Past 30 Days: No (. in [place] right now. No advanced directives) Smoking Status: Unknown if ever smoked Number of Pack Years (if former smoker): 10 Smoking End Date: 2009 - Alcohol History How Often Do You Have a Drink Containing Alcohol: Never - Substance Use History Substance History: No History of Abuse - Immunization History Tetanus Immunization: Unsure Hx Influenza Vaccine This Season: No Medications and Allergies Allergies Allergy/AdvReac Type Severity Reaction Status Date / Time codeine Allergy Severe Nausea/Vomi Verified 10/31/17 11:19 ting Sulfa (Sulfonamide Allergy Severe Verified 10/31/17 11:19 Antibiotics) METAL Allergy Intermediate hives Uncoded 03/08/16 09:38 SURGICAL STEEL Allergy Intermediate hives Uncoded 03/08/16 09:38 Home Medications Medication Instructions Recorded Confirmed Type Lactobacillus acidoph-L.bulgar 1 tab PO BID 01/11/18 01/11/18 History [Lactinex] amiodarone 100 mg PO DAILY 01/11/18 01/11/18 History amlodipine 5 mg PO DAILY 01/11/18 01/11/18 History aspirin [Aspirin Low Dose] 81 mg PO DAILY 01/11/18 01/11/18 History diltiazem HCl 240 mg PO DAILY 01/11/18 01/11/18 History furosemide 40 mg PO DAILY 01/11/18 01/11/18 History gabapentin 800 mg PO TID 01/11/18 01/11/18 History insulin aspart U-100 [Novolog 1 sliding scale dose SUB-Q UD 01/11/18 01/11/18 History U-100 Insulin aspart] insulin detemir U-100 [Levemir 6 unit SUB-Q QPM 01/11/18 01/11/18 History U-100 Insulin] levothyroxine 50 mcg PO DAILY 01/11/18 01/11/18 History metformin 1,000 mg PO DAILY 01/11/18 01/11/18 History metoprolol tartrate 50 mg PO Q8HR 01/11/18 01/11/18 History oxybutynin chloride 5 mg PO TID 01/11/18 01/11/18 History potassium chloride 20 meq PO DAILY 01/11/18 01/11/18 History pravastatin 40 mg PO DAILY 01/11/18 01/11/18 History rivaroxaban [Xarelto] 20 mg PO DAILY 01/11/18 01/11/18 History temazepam 7.5 mg PO HS 01/11/18 01/11/18 History tramadol 50 mg PO Q6H 01/11/18 01/11/18 History venlafaxine 75 mg PO DAILY 01/11/18 01/11/18 History Results - Labs CBC & Chem 7: 01/11/18 01:45 01/11/18 01:45 Labs: Short CBC 01/11/18 Range/Units 01:45 WBC 13.2 H (4.0-11.0) th/mm3 Hgb 10.2 L (11.6-15.3) gm/dL Hct 32.4 L (35.0-46.0) % Plt Count 369 D (150-450) th/mm3 BMP 01/11/18 01:45 Sodium 140 Potassium 3.2 L Chloride 101 Carbon Dioxide 32.6 H BUN 11 Creatinine 1.20 H Calcium 8.2 L Cardiac Enzymes 01/11/18 Range/Units 01:45 Total Creatine Kinase 33 (26-192) U/L Troponin I Less than 0.02 L (0.02-0.05) ng/mL Liver Function 01/11/18 Range/Units 01:45 Total Bilirubin 0.4 (0.2-1.0) mg/dL AST 21 (15-37) U/L ALT 13 (10-53) U/L Alkaline Phosphatase 175 H (45-117) U/L Albumin 3.1 L (3.4-5.0) g/dL Urine 01/11/18 Range/Units 01:40 Urine Color Yellow (Yellw/Straw) Urine Clarity Cloudy H (Clear) Urine pH 6.0 (5.0-8.5) Ur Specific Blackwell 1.010 (1.002-1.035) Urine Protein 100 H (Neg-Trace) mg/dL Urine Glucose (UA) Negative (Negative) mg/dL - Imaging Impressions Chest X-Ray 01/11/18 01:33 CONCLUSION: 1. Moderate severity bilateral pulmonary parenchymal opacity. Differential diagnosis is asymmetric pulmonary edema versus infection. 2. Small bilateral pleural effusions. 3. Chronic cardiac silhouette enlargement. Exam Vital signs: Vital Signs 01/11/18 01:30 01/11/18 01:35 01/11/18 01:40 Temperature Pulse Rate 102 H Respiratory Rate 22 Blood Pressure Pulse Oximetry 80 L 96 01/11/18 01:44 01/11/18 02:18 01/11/18 03:00 Temperature 102.2 F H Pulse Rate 102 H 84 93 H Respiratory Rate 36 H 28 H 24 Blood Pressure 139/66 115/56 L 119/55 L Pulse Oximetry 80 L 98 98 01/11/18 04:00 Temperature 101.6 F H Pulse Rate 82 Respiratory Rate 20 Blood Pressure 95/54 L Pulse Oximetry 99 Intake & Output 01/10/18 01/10/18 01/11/18 06:59 18:59 06:59 Weight 81.647 kg Narrative: GENERAL: Elderly chronically ill-appearing female who is laying in ED stretcher on BiPAP. SKIN: Warm and dry. Port is in place right chest, no erythema or drainage. HEAD: Atraumatic. Normocephalic. EYES: Pupils equal and round, 3 mm and reactive bilaterally.. No scleral icterus. No injection or drainage. ENT: BiPAP mask in place per NECK: Trachea midline. CARDIOVASCULAR: Irregularly irregular with 3 out of 6 systolic murmur left sternal border. RESPIRATORY: On BiPAP 12/5 with respiratory rate 22-27 and FiO2 70%. No accessory muscle use. Anterior rales to auscultation bilaterally. GASTROINTESTINAL: Abdomen soft, non-tender, nondistended. Bowel sounds present : Gallo catheter in place with yellow urine output. MUSCULOSKELETAL: Extremities without clubbing, cyanosis. 1+ pitting edema bilateral lower extremities. NEUROLOGICAL: Eyes open to voice and makes eye contact. Answers a few questions , oriented to self and circumstance.. No obvious cranial nerve deficits. Motor grossly within normal limits, moving all extremities without focal deficit. Septic Shock Reassessment Septic shock perfusion: reassessment completed Caprini VTE Risk Assessment Caprini VTE Risk Assessment: Moderate/High Risk (score >= 2) Caprini Risk Assessment Model: Point Value = 1 Point Value = 2 Point Value = 3 Point Value = 5 Age 41-60 Minor surgery BMI > 25 kg/m2 Swollen legs Varicose veins or History of unexplained or recurrent spontaneous Oral contraceptives or hormone replacement Sepsis (< 1 month) Serious lung disease, including pneumonia (< 1 month) Abnormal pulmonary function Acute myocardial infarction Congestive heart failure (< 1 month) History of inflammatory bowel disease Medical patient at bed rest Age 61-74 Arthroscopic surgery Major open surgery (> 45 min) Laparoscopic surgery (> 45 min) Malignancy Confined to bed (> 72 hours) Immobilizing plaster cast Central venous access Age >= 75 History of VTE Family history of VTE Factor V Leiden Prothrombin [id number] Lupus anticoagulant Anticardiolipin antibodies Elevated serum homocysteine Heparin-induced thrombocytopenia Other congenital or acquired thrombophilia Stroke (< 1 month) Elective arthroplasty Hip, pelvis, or leg fracture Acute spinal cord injury (< 1 month) Prophylaxis Regimen: Total Risk Factor Score Risk Level Prophylaxis Regimen 0-1 Low Early ambulation 2 Moderate Order ONE of the following: *Sequential Compression Device (SCD) *Heparin 5000 units SQ BID 3-4 Higher Order ONE of the following medications: *Heparin 5000 units SQ TID *Enoxaparin/Lovenox 40 mg SQ daily (WT < 150 kg, CrCl > 30 mL/min) *Enoxaparin/Lovenox 30 mg SQ daily (WT < 150 kg, CrCl > 10-29 mL/min) *Enoxaparin/Lovenox 30 mg SQ BID (WT < 150 kg, CrCl > 30 mL/min) AND/OR *Sequential Compression Device (SCD) 5 or more Highest Order ONE of the following medications: *Heparin 5000 units SQ TID (Preferred with Epidurals) *Enoxaparin/Lovenox 40 mg SQ daily (WT < 150 kg, CrCl > 30 mL/min) *Enoxaparin/Lovenox 30 mg SQ daily (WT < 150 kg, CrCl > 10-29 mL/min) *Enoxaparin/Lovenox 30 mg SQ BID (WT < 150 kg, CrCl > 30 mL/min) AND *Sequential Compression Device (SCD) Assessment and Plan - Problem List (1) Acute hypoxemic respiratory failure Code(s): J96.01 - Acute respiratory failure with hypoxia Status: Acute (2) UTI (urinary tract infection) Code(s): N39.0 - Urinary tract infection, site not specified Status: Acute (3) Diabetes Code(s): E11.9 - Type 2 diabetes mellitus without complications Status: Acute (4) Atrial fibrillation Code(s): I48.91 - Unspecified atrial fibrillation Status: Acute (5) Chronic anticoagulation Code(s): Z79.01 - retirement (current) use of anticoagulants Status: Acute (6) H/O malignant neoplasm of colon Code(s): Z85.038 - Personal history of other malignant neoplasm of large intestine Status: Acute (7) Bone metastases Code(s): C79.51 - Secondary malignant neoplasm of bone Status: Acute (8) Pulmonary edema Code(s): J81.1 - Chronic pulmonary edema Status: Acute (9) Generalized weakness Code(s): R53.1 - Weakness Status: Chronic (10) Mild protein-energy malnutrition Code(s): E44.1 - Mild protein-calorie malnutrition Status: Chronic - Assessment and Plan Plan: NEURO: Peripheral neuropathy Generalized weakness Continue gabapentin, venlafaxine 75 p.o. daily. Continue Ultram as needed for pain. Hold temazepam. RESP: Acute respiratory failure on BiPAP Former tobacco abuse Pulmonary edema Continue BiPAP 12/5 70%. Wean FiO2 for sats greater than 92%. Patient desires intubation if necessary. DuoNeb every 6 hours. Albuterol every 2 hours as needed. CXR with cardiomegaly and bilateral opacities that looks most consistent with pulmonary edema, bilateral pneumonia difficult to exclude. Will attempt diuresis and f/u CXR. Received Lasix 40 mg IV in the emergency department. We will continue to diuresis with 40 mg IV every 8 hours as tolerated. CV: Chronic atrial fibrillation on chronic anticoagulation with Xarelto. Moderate pulmonary hypertension Chronic diastolic heart failure Continue diltiazem 240 mg p.o. daily, Aspirin 81 mg p.o. daily, pravastatin 40 mg p.o. daily, Xarelto 20 mill grams p.o. daily, amiodarone 100 mg p.o. daily Hold Norvasc. GI: History of colon cancer status post sigmoid resection 2016 Hepatomegaly and ascites noted on CAT scan 10/31/17. Son states she has been on normal consistency diabetic diet. We will keep n.p.o. for now while on BiPAP. Advance diet if respiratory status is improving. FEN/RENAL: Chronic kidney disease stage III Urinary incontinence Bilateral hydronephrosis noted on CT 10/31/17 with bilateral perinephric stranding similar to prior scan from February 2017.. She was evaluated by urology, Dr. Alvarez and no intervention was recommended. Will order follow-up renal ultrasound. Monitor intake and output. Monitor electrolytes and replace as indicated. ID: UTI Port in place Received Zosyn and vancomycin in the emergency department. We will follow-up blood cultures, Urine culture, influenza screen. Check Legionella and urine pneumococcal antigens. We will cover with cefepime for UTI and possible pneumonia 2 g IV every 12 hours based on calculated creatinine clearance of 39 by ideal body weight. Recent C. difficile colitis noted on stool 11/10. C. difficile PCR neg 12/11. She denies diarrhea or abdominal pain. Continue Lactinex. Vancomycin 125 po q6 for prevention recurrence while on abx . HEME: History of colon cancer. Recent CT scan with apparent widespread bony metastatic disease. Dr. Sly Candelario has seen and recommended outpatient PET but that has not been done yet. Bilateral lower extremity ultrasound was negative for DVT 12/12/17 VQ scan low probability for PE 10/31/17 ENDO: Diabetes mellitus Monitor bedside glucose every 6 hours. Low dose insulin sliding scale as indicated Hold metformin PROPH: Xarelto will provide DVT prophylaxis. Protonix for stress ulcer prophylaxis ACCESS: Port in place right chest. Peripheral IV providing adequate access. Full code Palliative care consult Son updated at bedside Patient is critically ill with respiratory failure on BiPAP with high O2 requirements. She is at high risk for further deterioration and intubation and will require close observation in ICU. She has no advanced directive. She and her son state that she wishes to be full code. Her is her next of kin but he is currently out of the country in [place]. Critical care time 60 minutes exclusive of separately billable procedures.
[2018-01-11] MEDS: Levothyroxine 50 MCG Tablet PO SCH (07:03)
[2018-01-11] MEDS ORDERED: Bisacodyl 10 MG Supp RECTAL PRN (07:15)
[2018-01-11] MEDS ORDERED: Acetaminophen 325 MG Tablet PO PRN (07:15)
[2018-01-11] MEDS ORDERED: Dextrose 50% in Water 50 ML Vial IV.PUSH PRN (07:28)
[2018-01-11] MEDS: Famotidine PF Inj 20 MG/2 ML Vial IV.PUSH SCH ×2 (09:25→21:07)
[2018-01-11] MEDS: Lactobacillus Acidophilus/L. Spores Tablet PO SCH ×2 (09:26→21:07)
[2018-01-11] MEDS: Gabapentin 400 MG Capsule PO SCH ×3 (09:26→17:19)
[2018-01-11] MEDS: Amiodarone 200 MG Tablet PO SCH (09:26)
[2018-01-11] MEDS: Venlafaxine XR 75 MG Capsule PO SCH (09:26)
[2018-01-11] MEDS: Senna/Docusate Sodium 8.6/50 MG Tablet PO SCH ×2 (09:26→21:08)
[2018-01-11] MEDS: Rivaroxaban 20 MG Tablet PO SCH (09:26)
[2018-01-11] MEDS: dilTIAZem CD 240 MG Capsule PO SCH (09:26)
[2018-01-11] MEDS: Insulin NovoLOG Aspart Correctional Sugar Inj SQ SCH ×3 (14:02→23:47)
--- NOTE | 2018-01-11 16:09 | ECG ---
Date Performed: 01/11/2018 Time Performed: 01:34:44 PTAGE: 72 years EKG: ATRIAL FIBRILLATION AXIS INDETERMINATE POOR R WAVE PROGRESSION NONSPECIFIC ST-T WAVE CHANGE LOW VOLTAGE IN LIMB LEADS ABNORMAL ECG Since PREVIOUS TRACING , no significant change noted PREVIOUS TRACIN12/10/2017 00.22 DOCTOR: Collin Castro Interpretating Date/Time 01/11/2018 16:08:35
[2018-01-12] MEDS ORDERED: Chlorhexidine Gluconate 2% 1 Pack (2 Cloths) TOPICAL PRN (04:00)
[2018-01-12] MEDS: Chlorhexidine Gluconate 2% 1 Pack (2 Cloths) TOPICAL SCH (04:41)
[2018-01-12 05:16] LABS: Baso % (Auto) 0.2 % (0.0-2.0); Hematocrit 24.9 % (35.0-46.0); Hemoglobin 8.3 gm/dL (11.6-15.3); Lymph # (Auto) 0.7 th/mm3 (1.0-4.8); Lymph % (Auto) 6.7 % (9.0-44.0); Mean Corpuscular HGB Conc 33.2 % (32.0-36.0); Mean Corpuscular Hemoglobin 26.4 pg (27.0-34.0); Mean Corpuscular Volume 79.5 fL (80.0-100.0); Mean Platelet Volume 8.1 fL (7.0-11.0); Mono # (Auto) 0.7 th/mm3 (0.0-0.9); Mono % (Auto) 6.7 % (0.0-8.0); Neut # (Auto) 9.2 th/mm3 (1.8-7.7); Neut % (Auto) 86.4 % (16.0-70.0); Platelet Count 260 th/mm3 (150-450); Red Blood Count 3.13 mil/mm3 (4.00-5.30); Red Cell Distribution Width 17.9 % (11.6-17.2); White Blood Count 10.7 th/mm3 (4.0-11.0)
[2018-01-12 05:43] LABS: Calcium 8.4 mg/dL (8.5-10.1); Carbon Dioxide 29.5 meq/L (21.0-32.0); Magnesium 1.5 mg/dL (1.5-2.5); Phosphorus 3.3 mg/dL (2.5-4.9)
[2018-01-12] MEDS: Levothyroxine 50 MCG Tablet PO SCH (06:02)
[2018-01-12] MEDS: Insulin NovoLOG Aspart Correctional Sugar Inj SQ SCH ×4 (06:04→23:30)
--- NOTE | 2018-01-12 07:40 | XR ---
EXAM DATE: 01/12/2018 7:33 AM EDT AGE/SEX: 72 years / Female INDICATIONS: Respiratory failure. Patient stated having shortness of breath yesterday but has gotten better today. CLINICAL DATA: This is the patient's subsequent encounter. Patient reports that signs and symptoms h ave been present for 3 days and indicates a pain score of 0/10. MEDICAL/SURGICAL HISTORY: . Transient ischemic attack. Hypothyroidism. Cerebral hemorrhage. An ticoagulant therapy. Atrial fibrillation. Hypertension. Chemotherapy. Colon cancer. . Appendectomy. section. Oophorectomy. Colon resection. Hernia repair. COMPARISON: [facility] [place], CHEST 1V SINGLE AP, 01/11/2018. . FINDINGS: Single AP erect portable view the chest was obtained. The right-sided implantable port catheter remai ns in place. The heart size remains mildly prominent. Bilateral streaky opacities remain and appear m ildly improved. There is more consolidative opacity at the left lung base with obscuration of left he midiaphragm. The left costophrenic angle appears blunted. Multiple overlying electrocardiogram leads are present. The bony thorax is stable and intact with osteopenia and degenerative changes in the gle nohumeral joints. CONCLUSION: 1. Mild interval improvement in bilateral infiltrates with consolidative opacity at the left lung ba se. 2. Left costophrenic angle appears blunted which could indicate an effusion. Electronically signed by: Robe Menchaca MD 01/12/2018 7:38 AM EDT
[2018-01-12] MEDS: Lactobacillus Acidophilus/L. Spores Tablet PO SCH ×2 (09:29→20:32)
[2018-01-12] MEDS: Gabapentin 400 MG Capsule PO SCH ×3 (09:29→17:43)
[2018-01-12] MEDS: Rivaroxaban 20 MG Tablet PO SCH (09:30)
[2018-01-12] MEDS: Venlafaxine XR 75 MG Capsule PO SCH (09:30)
[2018-01-12] MEDS: Famotidine 20 MG Tablet PO SCH ×2 (09:30→20:33)
[2018-01-12] MEDS: dilTIAZem CD 240 MG Capsule PO SCH (09:30)
[2018-01-12] MEDS: Senna/Docusate Sodium 8.6/50 MG Tablet PO SCH ×2 (09:31→20:32)
[2018-01-12] MEDS: Amiodarone 200 MG Tablet PO SCH (09:40)
--- NOTE | 2018-01-12 10:19 | P.PNIM ---
Subjective Interval history: f/u; sepsis in no acute distress. says that her sob has improved. T max 102.2. denies pain. Physical Exam Vital signs: Vital Signs 01/11/18 11:00 01/11/18 12:00 01/11/18 16:00 Temperature 98.1 F Pulse Rate 74 77 74 Respiratory Rate 23 20 22 Blood Pressure 111/58 L 116/62 111/59 L Pulse Oximetry 94 L 94 L 95 01/11/18 17:00 01/11/18 20:00 01/11/18 20:15 Temperature 97.4 F L 97.9 F Pulse Rate 67 83 71 Respiratory Rate 20 18 Blood Pressure 106/59 L 106/57 L Pulse Oximetry 96 93 L 01/12/18 00:00 01/12/18 04:00 01/12/18 04:44 Temperature 97.6 F 97.6 F Pulse Rate 71 71 84 Respiratory Rate 18 18 16 Blood Pressure 118/58 L 119/67 Pulse Oximetry 93 L 96 01/12/18 08:00 01/12/18 08:23 Temperature 97.8 F Pulse Rate 89 103 H Respiratory Rate 20 20 Blood Pressure 119/64 Pulse Oximetry 95 93 L Intake & Output 01/11/18 01/12/18 01/12/18 18:59 06:59 18:59 Intake Total 220 / 220 340 / 340 Output Total 1225 / 1225 700 / 700 Balance -1005 / -1005 -360 / -360 Weight 85.1 kg Intake: IV 100 / 100 100 / 100 Maxipime Inj 2,000 MG In NS Inj 100 / 100 100 / 100 100 ML @ 200 mls/hr IV.SIG Q12H [facility] Rx#:[id number] Oral 120 / 120 240 / 240 Output: Urine 900 / 900 700 / 700 Urine Amount (Catheter) 325 / 325 Indwelling Urethral Catheter 325 / 325 Other: Date of Last Bowel Movement 01/09/18 Weight On Admission 85.1 kg - Constitutional no acute distress - Routine Respiratory Exam Present: CTA bilaterally - Routine Cardiovascular Exam Present: RRR - Routine Abdominal Exam Present: soft - Routine Extremities Exam Comments: no pedal edema. - Routine Neurological Exam Present: alert, oriented X3 - Urinary Catheter Management Indwelling Urethral Catheter Cath placed during this visit: yes Reason for continuing: Hourly intake/output Insertion date: 01/11/18 Insertion time: 01:50 Results - Labs CBC & Chem 7: 01/12/18 04:58 01/12/18 04:58 Laboratory Results - last 24 hr 01/11/18 01/11/18 01/11/18 14:00 17:00 23:36 WBC RBC Hgb Hct MCV MCH MCHC RDW Plt Count MPV Neut % (Auto) Lymph % (Auto) [place] % (Auto) Eos % (Auto) Baso % (Auto) Neut # (Auto) Lymph # (Auto) [place] # (Auto) Eos # (Auto) Baso # (Auto) WBC Differential Differential Comment Sodium Potassium Chloride Carbon Dioxide Anion Gap BUN Creatinine Estimated GFR POC Glucose 298 H 265 H 253 H Random Glucose Calcium Phosphorus Magnesium Nasal Screen MRSA (PCR) 01/12/18 01/12/18 01/12/18 00:00 04:58 04:58 WBC 10.7 RBC 3.13 L Hgb 8.3 L Hct 24.9 L MCV 79.5 L MCH 26.4 L MCHC 33.2 RDW 17.9 H Plt Count 260 MPV 8.1 Neut % (Auto) 86.4 H Lymph % (Auto) 6.7 L [place] % (Auto) 6.7 Eos % (Auto) 0.0 Baso % (Auto) 0.2 Neut # (Auto) 9.2 H Lymph # (Auto) 0.7 L [place] # (Auto) 0.7 Eos # (Auto) 0.0 Baso # (Auto) 0.0 WBC Differential . Differential Comment Auto diff final Sodium 137 Potassium 3.0 L Chloride 98 Carbon Dioxide 29.5 Anion Gap 10 BUN 23 H Creatinine 1.15 H Estimated GFR 47 L POC Glucose Random Glucose 152 H Calcium 8.4 L Phosphorus 3.3 Magnesium 1.5 Nasal Screen MRSA (PCR) Not detected 01/12/18 05:43 WBC RBC Hgb Hct MCV MCH MCHC RDW Plt Count MPV Neut % (Auto) Lymph % (Auto) [place] % (Auto) Eos % (Auto) Baso % (Auto) Neut # (Auto) Lymph # (Auto) [place] # (Auto) Eos # (Auto) Baso # (Auto) WBC Differential Differential Comment Sodium Potassium Chloride Carbon Dioxide Anion Gap BUN Creatinine Estimated GFR POC Glucose 168 H Random Glucose Calcium Phosphorus Magnesium Nasal Screen MRSA (PCR) Microbiology 01/11/18 09:43 Nasal Wash Influenza Types A,B Antigen - Final Negative for FLU A and B antigen Infection due to influenza A or B cannot be ruled out since the antigen present in the sample may be below the detection limit of the test. 01/11/18 08:21 Urine - Catheterized Urine Streptococcus pneumoniae Antigen ( M - Final Presumptive negative for streptococcus pneumoniae antigen, suggesting no current or recent infection. Infection due to Streptococcus pneumoniae cannot be ruled out since the antigen present in the sample may be below the detection limit of the test. 01/11/18 08:21 Urine - Catheterized Urine Legionella Antigen - Final Presumptive negative for Legionella pneumophila serogroup 1 antigen in urine, suggesting no recent or recurrent infection. Infection due to Legionella cannot be ruled out since other serogroups and species may cause disease, antigen may not be present in urine in early infection, and the level of antigen present in the urine may be below the detection limit of the test. - Imaging Impressions Chest X-Ray 01/12/18 07:18 CONCLUSION: 1. Mild interval improvement in bilateral infiltrates with consolidative opacity at the left lung base. 2. Left costophrenic angle appears blunted which could indicate an effusion. Assessment and Plan - Plan Peripheral neuropathy Generalized weakness Continue gabapentin, venlafaxine 75 p.o. daily. Continue Ultram as needed for pain. Hold temazepam. Acute respiratory failure on BiPAP Former tobacco abuse Pulmonary edema vs pneumonia Continue BiPAP 12/5 70%. Wean FiO2 for sats greater than 92%. Patient desires intubation if necessary. DuoNeb every 6 hours. Albuterol every 2 hours as needed. CXR with cardiomegaly and bilateral opacities that looks most consistent with pulmonary edema, bilateral pneumonia difficult to exclude. Will attempt diuresis and f/u CXR. Received Lasix 40 mg IV in the emergency department. We will continue to diuresis with 40 mg IV every 8 hours as tolerated. continue IV Cefepime for now. Chronic atrial fibrillation on chronic anticoagulation with Xarelto. Moderate pulmonary hypertension acute on chronic diastolic heart failure Continue diltiazem 240 mg p.o. daily, Aspirin 81 mg p.o. daily, pravastatin 40 mg p.o. daily, Xarelto 20 mill grams p.o. daily, amiodarone 100 mg p.o. daily. continue IV Lasix as noted above. Hold Norvasc. History of colon cancer status post sigmoid resection 2015 Hepatomegaly and ascites noted on CAT scan 10/31/17. Son states she has been on normal consistency diabetic diet. Chronic kidney disease stage III Hypokalemia Urinary incontinence Bilateral hydronephrosis noted on CT 10/31/17 with bilateral perinephric stranding similar to prior scan from February 2017.. She was evaluated by urology, Dr. Alvarez and no intervention was recommended. ollow-up renal ultrasound. Monitor intake and output. Monitor electrolytes and replace as indicated. UTI Port in place Received Zosyn and vancomycin in the emergency department. We will follow-up blood cultures. We will cover with cefepime for UTI and possible pneumonia . Recent C. difficile colitis noted on stool 11/10. C. difficile PCR neg 12/11. She denies diarrhea or abdominal pain. Continue Lactinex. Vancomycin 125 po q6 for prevention recurrence while on abx . History of colon cancer. Recent CT scan with apparent widespread bony metastatic disease. Dr. Sly Candelario has seen and recommended outpatient PET but that has not been done yet. Bilateral lower extremity ultrasound was negative for DVT 12/12/17 VQ scan low probability for PE 10/31/17 Diabetes mellitus Monitor bedside glucose every 6 hours. Low dose insulin sliding scale as indicated Hold metformin PROPH: Xarelto will provide DVT prophylaxis. Full code Palliative care consulted. Son updated at bedside
--- NOTE | 2018-01-12 15:55 | ECG ---
Date Performed: 01/11/2018 Time Performed: 09:26:03 PTAGE: 72 years EKG: ATRIAL FIBRILLATION AXIS INDETERMINATE LOW LIMB LEAD VOLTAGE NONSPECIFIC ST-T CHANGE Since previous tracing, no significant change noted ABNORMAL ECG PREVIOUS TRACING : 01/11/2018 01.34 DOCTOR: Collin Castro Interpretating Date/Time 01/12/2018 15:53:06
[2018-01-13] MEDS: Chlorhexidine Gluconate 2% 1 Pack (2 Cloths) TOPICAL SCH (03:43)
[2018-01-13 05:37] LABS: Baso % (Auto) 0.4 % (0.0-2.0); Eos % (Auto) 0.3 % (0.0-4.0); Hematocrit 26.1 % (35.0-46.0); Hemoglobin 8.4 gm/dL (11.6-15.3); Lymph # (Auto) 0.9 th/mm3 (1.0-4.8); Lymph % (Auto) 9.7 % (9.0-44.0); Mean Corpuscular HGB Conc 32.2 % (32.0-36.0); Mean Corpuscular Hemoglobin 25.6 pg (27.0-34.0); Mean Corpuscular Volume 79.6 fL (80.0-100.0); Mono # (Auto) 0.8 th/mm3 (0.0-0.9); Mono % (Auto) 8.5 % (0.0-8.0); Neut # (Auto) 7.8 th/mm3 (1.8-7.7); Neut % (Auto) 81.1 % (16.0-70.0); Platelet Count 268 th/mm3 (150-450); Red Blood Count 3.28 mil/mm3 (4.00-5.30); Red Cell Distribution Width 17.5 % (11.6-17.2); White Blood Count 9.7 th/mm3 (4.0-11.0)
[2018-01-13 05:59] LABS: Calcium 8.3 mg/dL (8.5-10.1); Carbon Dioxide 31.7 meq/L (21.0-32.0)
[2018-01-13] MEDS: Levothyroxine 50 MCG Tablet PO SCH (06:01)
[2018-01-13] MEDS: Insulin NovoLOG Aspart Correctional Sugar Inj SQ SCH ×4 (06:03→23:22)
[2018-01-13 06:12] LABS: Potassium 2.6 meq/L (3.5-5.1)
[2018-01-13] MEDS: Rivaroxaban 20 MG Tablet PO SCH (09:02)
[2018-01-13] MEDS: Gabapentin 400 MG Capsule PO SCH ×3 (09:03→17:22)
[2018-01-13] MEDS: dilTIAZem CD 240 MG Capsule PO SCH (09:03)
[2018-01-13] MEDS: Amiodarone 200 MG Tablet PO SCH (09:03)
[2018-01-13] MEDS: Lactobacillus Acidophilus/L. Spores Tablet PO SCH ×2 (09:03→21:25)
[2018-01-13] MEDS: Senna/Docusate Sodium 8.6/50 MG Tablet PO SCH ×2 (09:04→21:25)
--- NOTE | 2018-01-13 10:41 | P.PNIM ---
Subjective Interval history: f/u; CHF exacerbation looks and feels better today. sob has improved. no chest pain or fever. Physical Exam Vital signs: Vital Signs 01/12/18 12:00 01/12/18 15:31 01/12/18 15:32 Temperature 97.3 F L Pulse Rate 87 88 Respiratory Rate 20 18 Blood Pressure 103/65 Pulse Oximetry 97 94 L 01/12/18 20:00 01/12/18 20:05 01/12/18 21:09 Temperature 97.7 F Pulse Rate 90 89 90 Respiratory Rate 18 16 Blood Pressure 115/55 L Pulse Oximetry 92 L 01/13/18 00:00 01/13/18 00:45 01/13/18 03:11 Temperature 97.2 F L Pulse Rate 99 H 89 93 H Respiratory Rate 18 17 Blood Pressure 126/60 Pulse Oximetry 94 L 01/13/18 03:55 01/13/18 04:00 01/13/18 08:56 Temperature 97.5 F L 97.7 F Pulse Rate 98 H 95 H 95 H Respiratory Rate 17 16 Blood Pressure 119/74 116/67 Pulse Oximetry 95 95 01/13/18 09:25 Temperature Pulse Rate 102 H Respiratory Rate 14 Blood Pressure Pulse Oximetry 93 L Intake & Output 01/12/18 01/13/18 01/13/18 18:59 06:59 18:59 Intake Total 580 / 580 580 / 580 100 / 100 Output Total 1550 / 1550 2200 / 2200 Balance -970 / -970 -1620 / -1620 100 / 100 Weight 85.6 kg Intake: IV 100 / 100 100 / 100 100 / 100 Maxipime Inj 2,000 MG In NS Inj 100 / 100 100 / 100 100 / 100 100 ML @ 200 mls/hr IV.SIG Q12H [facility] Rx#:[id number] Oral 480 / 480 480 / 480 Output: Urine 1550 / 1550 2200 / 2200 Other: Date of Last Bowel Movement 01/09/18 - Constitutional mild distress - Routine Respiratory Exam Present: CTA bilaterally - Routine Cardiovascular Exam Present: RRR - Routine Abdominal Exam Present: soft - Routine Extremities Exam Comments: bilateral pedal edema. - Routine Neurological Exam Present: alert, oriented X3 - Urinary Catheter Management Indwelling Urethral Catheter Cath placed during this visit: yes Reason for continuing: Hourly intake/output Insertion date: 01/11/18 Insertion time: 01:50 Results - Labs CBC & Chem 7: 01/13/18 05:00 01/13/18 05:00 Laboratory Results - last 24 hr 01/12/18 01/12/18 01/12/18 12:17 17:46 23:27 WBC RBC Hgb Hct MCV MCH MCHC RDW Plt Count MPV Neut % (Auto) Lymph % (Auto) [place] % (Auto) Eos % (Auto) Baso % (Auto) Neut # (Auto) Lymph # (Auto) [place] # (Auto) Eos # (Auto) Baso # (Auto) WBC Differential Differential Comment Sodium Potassium Chloride Carbon Dioxide Anion Gap BUN Creatinine Estimated GFR POC Glucose 205 H 164 H 138 H Random Glucose Calcium Magnesium 01/13/18 01/13/18 01/13/18 05:00 05:00 05:00 WBC 9.7 RBC 3.28 L Hgb 8.4 L Hct 26.1 L MCV 79.6 L MCH 25.6 L MCHC 32.2 RDW 17.5 H Plt Count 268 MPV 8.0 Neut % (Auto) 81.1 H Lymph % (Auto) 9.7 [place] % (Auto) 8.5 H Eos % (Auto) 0.3 Baso % (Auto) 0.4 Neut # (Auto) 7.8 H Lymph # (Auto) 0.9 L [place] # (Auto) 0.8 Eos # (Auto) 0.0 Baso # (Auto) 0.0 WBC Differential . Differential Comment Auto diff final Sodium 138 Potassium 2.6 L* Chloride 97 L Carbon Dioxide 31.7 Anion Gap 9 BUN 21 H Creatinine 1.02 H Estimated GFR 53 L POC Glucose Random Glucose 111 H Calcium 8.3 L Magnesium 1.4 L 01/13/18 06:00 WBC RBC Hgb Hct MCV MCH MCHC RDW Plt Count MPV Neut % (Auto) Lymph % (Auto) [place] % (Auto) Eos % (Auto) Baso % (Auto) Neut # (Auto) Lymph # (Auto) [place] # (Auto) Eos # (Auto) Baso # (Auto) WBC Differential Differential Comment Sodium Potassium Chloride Carbon Dioxide Anion Gap BUN Creatinine Estimated GFR POC Glucose 118 H Random Glucose Calcium Magnesium Microbiology 01/11/18 01:45 Blood - Peripheral Aerobic Blood Culture - Preliminary No growth in 1 day 01/11/18 01:45 Blood - Peripheral Anaerobic Blood Culture - Preliminary No growth in 1 day 01/11/18 01:50 Blood - Peripheral Aerobic Blood Culture - Preliminary No growth in 1 day 01/11/18 01:50 Blood - Peripheral Anaerobic Blood Culture - Preliminary No growth in 1 day 01/11/18 08:21 Catheterized Urine Urine Culture - Final 50-100,000 cfu/mL mixed regina (probable contaminants ) Assessment and Plan - Plan Peripheral neuropathy Generalized weakness Continue gabapentin, venlafaxine 75 p.o. daily. Continue Ultram as needed for pain. Hold temazepam. Acute respiratory failure due to CHF exacerbation- improving. Former tobacco abuse Pulmonary edema vs pneumonia keep on oxygen - will taper down to keep O2 sat > 90%. continue neb treatment. CXR with cardiomegaly and bilateral opacities that looks most consistent with pulmonary edema, bilateral pneumonia difficult to exclude. will decrease IV Lasix and continue to monitor. continue IV Cefepime for now. Chronic atrial fibrillation on chronic anticoagulation with Xarelto. Moderate pulmonary hypertension acute on chronic diastolic heart failure Continue diltiazem 240 mg p.o. daily, Aspirin 81 mg p.o. daily, pravastatin 40 mg p.o. daily, Xarelto 20 mill grams p.o. daily, amiodarone 100 mg p.o. daily. continue IV Lasix as noted above. Hold Norvasc. History of colon cancer status post sigmoid resection 2015 Hepatomegaly and ascites noted on CAT scan 10/31/17. Son states she has been on normal consistency diabetic diet. Chronic kidney disease stage III Hypokalemia Urinary incontinence Bilateral hydronephrosis noted on CT 10/31/17 with bilateral perinephric stranding similar to prior scan from February 2017.. She was evaluated by urology, Dr. Alvarez and no intervention was recommended. Monitor intake and output. Monitor electrolytes and replace as indicated. will dc jacobsen cath later this evening or tomorrow. UTI Port in place Received Zosyn and vancomycin in the emergency department. We will follow-up blood cultures. We will cover with cefepime for UTI and possible pneumonia . Recent C. difficile colitis noted on stool 11/10. C. difficile PCR neg 12/11. She denies diarrhea or abdominal pain. Continue Lactinex. Vancomycin 125 po q6 for prevention recurrence while on abx . History of colon cancer. Recent CT scan with apparent widespread bony metastatic disease. Dr. Sly Candelario has seen and recommended outpatient PET but that has not been done yet. Bilateral lower extremity ultrasound was negative for DVT 12/12/17 VQ scan low probability for PE 10/31/17 Diabetes mellitus Monitor bedside glucose every 6 hours. Low dose insulin sliding scale as indicated Hold metformin PROPH: Xarelto will provide DVT prophylaxis. Full code Palliative care consulted. Discharge Planning: within the next 24-48 hrs if continues to improve.
--- NOTE | 2018-01-13 11:32 | P.CONPAL ---
Consult Service: Palliative Care Requesting Physician: Raven Anderson Reason for Consult: a. To assist with evaluation and management of symptoms including: Generalized weakness, shortness of breath, debility b. To assist medical decision maker(s) with: better understanding of current medical conditions; weighing benefits/burdens of medical treatment options; making medical treatment decisions. Primary Care Provider: Sheldon Dumont MD, R3 History of Present Illness History of Present Illness: Mrs. Marroquin is a 72 years old female with a past medical history of colon cancer, diabetes mellitus, hypertension, hyperlipidemia, atrial fibrillation status post ablation on Xarelto, hypothyroidism, chronic kidney disease stage III, pulmonary hypertension, CHF and chronic O2 3 L at home, L3 compression fracture , history of GI bleed, depression, recurrent sepsis and TIA 2. Patient had recent CT which showed widespread bony lesions most likely representing metastatic disease and is currently awaiting outpatient PET. She presented to the emergency room via EMS on 01/11/18 from [facility] with complaints of shortness of breath and fever. At facility O2 saturation was in the 80s and she was placed on CPAP and transitioned to BiPAP by EVAC. Patient endorsed having an unproductive cough, mild nausea in ER. Patient's last hospitalization was from 10/31 to 12/10 and she was treated for urosepsis, C. difficile and respiratory failure and patient was intubated during that hospitalization for 4 days. ER Course: * Vital signs: Temperature 101.6F, pulse 82, respirations 20, BP 95/54, O2 saturation 99% on BiPAP * Laboratory workup revealed WBC 13.2, hemoglobin 10.2, hematocrit 32.4, platelet count 369, potassium 3.2, BUN/creatinine 11/1.20, random glucose 133, lactic acid 1.5, troponin less than 0.02, BNP 263, total protein 8.2, albumin 3.1, PT 17.9, INR 1.8, APTT 32.0 * ABG results pH 7.39, PCO2 51, PO2 134, HCO3 30 on BiPAP 12/5/100% * Chest x-ray revealed moderate bilateral pulmonary parenchymal opacity, small bilateral pleural effusions, possible pneumonia and chronic cardiac silhouette enlargement. * Urinalysis positive for leukocyte esterase, culture indicated. Culture negative for Legionella, Streptococcus pneumoniae * Blood cultures collected-no growth in 2 days * Influenza types a and B negative * Zosyn 12.5 mg IV, vancomycin and Lasix 40 mg IV, albuterol neb and Tylenol * Patient admitted under the care of critical care management Dr. Anderson for further evaluation and treatment Clinical course complicated with shortness of breath and generalized weakness. Palliative care consulted for assistance with symptom management and establishing goals of care. Follow-up chest x-ray on 01/12/18 showed mild interval improvement in bilateral infiltrates with consolidative opacity at the left lung base. Laboratory workup today revealing WBC 9.7, hemoglobin 8.4, hematocrit 26.1, platelet count 17.5, sodium 138, potassium 2.6, BUN/creatinine 21/1.02, random glucose 111, calcium 8.3, magnesium 1.4. Patient seen and examined in the room. Patient is lying in bed, awake, alert, oriented to self, place and situation. Patient endorsing neuropathic pain to left leg. Introduced role of palliative care in regards to symptom management as well is goals of care. Patient receptive to palliative care. Patient receptive to palliative care. Obtained patient's past medical history, psychosocial history. Reviewed events leading to this hospitalization, clinical course and current medical management. Shared concerns regarding patient's multiple hospitalizations. Patient has never completed advanced directives. Discussed what advanced directives were, and patient appeared interested in completing advanced directive. She mentions that she would like to complete health care surrogate forms, verbally naming her Janel Marroquin as her health care surrogate (HCS) and her 2 sons Jose Rafael and Sid Marroquin as her alternate HCS. Addressed code status, discussed the risks, benefits and limitations of CPR given ongoing multiple comorbidities. Patient mentioned that she is not sure if she would like to have CPR performed as well as intubation but at this time would like to discuss further with his family before she makes any final decision. Patient's is currently in [place] with work. Patient mentioned that she can talk to him by telephone. Explained to patient that while she decides she will be considered a full code and explained to her what that entails. Patient verbalizes understanding. Left patient with a copy of healthcare surrogate form and a copy of living will. Palliative care will also provide patient with a copy of 5 wishes. Patient appreciative of visit and wants to review advance directives and discuss with family before she signs anything. Function/Cognitive Trajectory: Patient currently resides at [facility]. She ambulates slowly with a walker for short distances and a wheelchair for long distances. Patient mentioned that she tends to drag her left foot when walking due to neuropathic pain. Patient is on home oxygen. Patient is incontinent of bladder. She is able to voice her needs. Patient was diagnosed with high risk colon cancer in February 2016 and pathology showed poorly differentiated Adenocarcinoma with mucinous features measuring 5.5 cm arising in the villous adenoma with a large tumor deposits 6 cm in size within the pericolonic soft tissue. Metastatic adenocarcinoma involving 11 out of 12 nodes with pathological stage T2 N2 B MO. She was treated with adjuvant Xeloda and completed therapy in August 2016. Since then patient has been deteriorating with increased weakness, intermediate confusion. Patient's last hospitalization was in Oct, 2017 for urosepsis, C. difficile and respiratory failure. She was discharged to [facility]. Review of Systems Constitutional: Reports fever(s), Reports weight loss Eyes: Reports pain (neuropathic pain. ) Ears, Nose, Mouth, and Throat: Denies abnormal hearing, Denies difficulty swallowing, Denies nasal congestion, Denies nasal discharge Cardiovascular: Reports leg pain with activity, Reports leg swelling, Reports shortness of breath, Reports shortness of breath with activity, Denies chest pain Respiratory: Reports cough, Reports shortness of breath Gastrointestinal: Reports nausea (mild), Denies abdominal pain, Denies constipation, Denies vomiting Genitourinary: Reports urinary incontinence, Denies blood in urine, Denies painful urination Skin/Breast: Reports unusual bruising Neurologic: Reports abnormal walking (Patient states that she drags her left foot when walking- due to neuropathy), Reports tingling/numbness/burning sensations (to left foot), Reports unsteadiness, Denies abnormal speech, Denies confusion Psychiatric: Denies confusion Endocrine: Denies increased thirst, Denies increased urination Hematologic/Lymphatic: Denies easy bruising PMFSH - History History Provided By: Patient - Medical History Medical History: Medical History (Last Reviewed 01/13/18 @ 11:56 by Justin Velasco) A-fib CHF (congestive heart failure) Depression Diabetes Diastolic heart failure Hyperlipemia Hypertension Hypothyroidism Insomnia Neuropathy Overactive bladder Pneumonia Port-A-Cath in place Secondary malignant neoplasm Sepsis UTI (urinary tract infection) Weakness - Surgical History Surgical History: Surgical History (Last Updated 01/13/18 @ 11:30 by Drake Vitale) H/O colectomy H/O esophagogastroduodenoscopy H/O hernia repair History of colonoscopy Hx of appendectomy Hx of section S/P ablation of atrial fibrillation - Family History Family History: Family History (Last Updated 01/13/18 @ 11:31 by Drake Vitale) Father Alcoholism Mother Breast cancer Dementia - Tobacco History Second Hand Smoke Exposure: No Tobacco Use In Past 30 Days: No (. in [place] right now. No advanced directives) Smoking Status: Former smoker (10 pack year smoker. Quit in 2009) Number of Pack Years (if former smoker): 10 Smoking End Date: 2009 - Alcohol History How Often Do You Have a Drink Containing Alcohol: Never - Substance Use History Substance History: No History of Abuse - Immunization History Tetanus Immunization: >5 Years Hx Influenza Vaccine This Season: Yes Medications and Allergies Active Medications: Active Medications Acetaminophen (Tylenol) 650 mg PO Q6H PRN PRN Reason: PAIN 1-10 AND/OR FEVER >101F Al Hydroxide/Mg Hydroxide (Milk Of Zeynep Worley) 30 ml PO Q12H PRN PRN Reason: Mild Constipation Albuterol (Albuterol Neb (Prn)) 2.5 mg NEB Q2HR NEB PRN PRN Reason: SHORTNESS OF BREATH/WHEEZING Albuterol (Duoneb Neb (Chiqui)) 1 ampul NEB Q6HR NEB [facility] Last Admin: 01/13/18 09:21 Dose: 1 ampul Amiodarone HCl (Cordarone) 100 mg PO DAILY [facility] Last Admin: 01/13/18 09:03 Dose: 100 mg Aspirin (Ecotrin) 81 mg PO DAILY [facility] Last Admin: 01/13/18 09:02 Dose: 81 mg Bisacodyl (Dulcolax Supp) 10 mg RECTAL DAILY PRN PRN Reason: SEVERE CONSITIPATION Chlorhexidine Gluconate (Chlorhexidine 2% Cloth) 3 pack TOPICAL DAILY@0400 [facility] Stop: 01/17/18 03:59 Last Admin: 01/13/18 03:43 Dose: Not Given Chlorhexidine Gluconate (Chlorhexidine 2% Cloth) 3 pack TOPICAL DAILY@0400 PRN PRN Reason: Extra cloth needed Stop: 01/17/18 03:59 Dextrose (D50w Vial) 50 ml IV.PUSH UNSCH PRN PRN Reason: PER HYPOGLYCEMIA PROTOCOL Diltiazem HCl (Cardizem Cd 24hr) 240 mg PO DAILY [facility] Last Admin: 01/13/18 09:03 Dose: 240 mg Famotidine (Pepcid) 20 mg PO BID [facility] Last Admin: 01/12/18 20:33 Dose: 20 mg Furosemide (Lasix Inj) 40 mg IV.PUSH DAILY [facility] Gabapentin (Neurontin) 400 mg PO TID [facility] Last Admin: 01/13/18 09:03 Dose: 400 mg Glucagon (Glucagon Inj) 1 mg OTHER PRN PRN PRN Reason: for Hypoglycemia Protocol Cefepime HCl 2,000 mg/ Sodium (Chloride) 100 mls @ 200 mls/hr IV.SIG Q12H [facility] Last Infusion: 01/13/18 09:40 Dose: Infused Insulin Aspart (Novolog Insulin Correctional Sugar Inj) 0 unit SQ Q6HR [facility]; Protocol Last Admin: 01/13/18 06:03 Dose: Not Given Lactobacillus Acidophilus (Lactinex) 1 tab PO BID [facility] Last Admin: 01/13/18 09:03 Dose: 1 tab Lactulose (Lactulose Liq) 30 ml PO DAILY PRN PRN Reason: SEVERE CONSITIPATION Levothyroxine Sodium (Synthroid) 50 mcg PO DAILY@0700 [facility] Last Admin: 01/13/18 06:01 Dose: 50 mcg Magnesium Oxide (Mag-Ox) 400 mg PO BID [facility] Ondansetron HCl (Zofran Odt) 4 mg PO Q6H PRN PRN Reason: NAUSEA Oxybutynin Chloride (Ditropan) 5 mg PO TID [facility] Last Admin: 01/13/18 09:03 Dose: 5 mg Potassium Chloride (K-Dur) 40 meq PO ONCE ONE Stop: 01/13/18 14:01 Pravastatin Sodium (Pravachol) 40 mg PO DAILY [facility] Last Admin: 01/13/18 09:03 Dose: 40 mg Rivaroxaban (Xarelto) 20 mg PO DAILY [facility] Last Admin: 01/13/18 09:02 Dose: 20 mg Senna/Docusate Sodium (Elsa-Colace) 1 tab PO BID [facility] Last Admin: 01/13/18 09:04 Dose: Not Given Sennosides (Senokot) 17.2 mg PO Q12H PRN PRN Reason: Moderate Constipation Sodium Chloride (Ns Flush) 2 ml IV.FLUSH BID [facility] Last Admin: 01/13/18 09:04 Dose: 2 ml Sodium Chloride (Ns Flush) 2 ml IV.FLUSH PRN PRN PRN Reason: FLUSH AFTER USING IV ACCESS Last Admin: 01/13/18 03:39 Dose: 2 ml Temazepam (Restoril) 7.5 mg PO HS [facility] Last Admin: 01/12/18 20:37 Dose: 7.5 mg Tramadol HCl (Ultram) 50 mg PO Q6H [facility] Last Admin: 01/13/18 06:01 Dose: 50 mg Vancomycin HCl (Vancomycin Po) 125 mg PO QID [facility] Last Admin: 01/12/18 20:35 Dose: 125 mg Venlafaxine HCl (Effexor Xr) 75 mg PO DAILY [facility] Last Admin: 01/12/18 09:30 Dose: 75 mg Allergies Allergy/AdvReac Type Severity Reaction Status Date / Time codeine Allergy Severe Nausea/Vomi Verified 10/31/17 11:19 ting Sulfa (Sulfonamide Allergy Severe Verified 10/31/17 11:19 Antibiotics) METAL Allergy Intermediate hives Uncoded 03/08/16 09:38 SURGICAL STEEL Allergy Intermediate hives Uncoded 03/08/16 09:38 Home Medications Medication Instructions Recorded Confirmed Type Lactobacillus acidoph-L.bulgar 1 tab PO BID 01/11/18 01/11/18 History [Lactinex] amiodarone 100 mg PO DAILY 01/11/18 01/11/18 History amlodipine 5 mg PO DAILY 01/11/18 01/11/18 History aspirin [Aspirin Low Dose] 81 mg PO DAILY 01/11/18 01/11/18 History diltiazem HCl 240 mg PO DAILY 01/11/18 01/11/18 History furosemide 40 mg PO DAILY 01/11/18 01/11/18 History gabapentin 800 mg PO TID 01/11/18 01/11/18 History insulin aspart U-100 [Novolog 1 sliding scale dose SUB-Q UD 01/11/18 01/11/18 History U-100 Insulin aspart] insulin detemir U-100 [Levemir 6 unit SUB-Q QPM 01/11/18 01/11/18 History U-100 Insulin] levothyroxine 50 mcg PO DAILY 01/11/18 01/11/18 History metformin 1,000 mg PO DAILY 01/11/18 01/11/18 History metoprolol tartrate 50 mg PO Q8HR 01/11/18 01/11/18 History oxybutynin chloride 5 mg PO TID 01/11/18 01/11/18 History potassium chloride 20 meq PO DAILY 01/11/18 01/11/18 History pravastatin 40 mg PO DAILY 01/11/18 01/11/18 History rivaroxaban [Xarelto] 20 mg PO DAILY 01/11/18 01/11/18 History temazepam 7.5 mg PO HS 01/11/18 01/11/18 History tramadol 50 mg PO Q6H 01/11/18 01/11/18 History venlafaxine 75 mg PO DAILY 01/11/18 01/11/18 History Advance Directives Living Will: No Healthcare Surrogate: No Power of Personal Care Aid: No Today's verbally stated goals: Patient hopes to get better and go back to rehab at SNF. Patient also wants to go over HCS form and living will before she signs them. Family/friends goals: No family at bedside. Ethical and Legal Issues: None identified at this time Physical Exam Vital Signs: Vital Signs - 24 hr 01/12/18 12:00 01/12/18 15:31 01/12/18 15:32 Temperature 97.3 F L Pulse Rate 87 88 Respiratory Rate 20 18 Blood Pressure 103/65 Pulse Oximetry 97 94 L 01/12/18 20:00 01/12/18 20:05 01/12/18 21:09 Temperature 97.7 F Pulse Rate 90 89 90 Respiratory Rate 18 16 Blood Pressure 115/55 L Pulse Oximetry 92 L 01/13/18 00:00 01/13/18 00:45 01/13/18 03:11 Temperature 97.2 F L Pulse Rate 99 H 89 93 H Respiratory Rate 18 17 Blood Pressure 126/60 Pulse Oximetry 94 L 01/13/18 03:55 01/13/18 04:00 01/13/18 08:56 Temperature 97.5 F L 97.7 F Pulse Rate 98 H 95 H 95 H Respiratory Rate 17 16 Blood Pressure 119/74 116/67 Pulse Oximetry 95 95 01/13/18 09:25 Temperature Pulse Rate 102 H Respiratory Rate 14 Blood Pressure Pulse Oximetry 93 L I&O: Intake & Output 0701/12/18 01/13/18 01/14/18 06:59 06:59 06:59 06:59 Intake Total 560 / 560 1160 / 1160 100 / 100 Output Total 1925 / 1925 3750 / 3750 Balance -1365 / -1365 -2590 / -2590 100 / 100 Weight 81.647 kg 85.1 kg 85.6 kg Physical Exam: CONSTITUTIONAL/GENERAL: This is an elderly, chronically ill looking patient in no apparent distress. TUBES/LINES/DRAINS: NC; PIV SKIN: Pale, No jaundice, or lesions. Ecchymoses on upper extremities. No wounds seen anteriorly. Skin temperature appropriate. Not diaphoretic. HEAD: Atraumatic. Normocephalic. EYES: Pupils equal and round and reactive. Extraocular motions intact. No scleral icterus. No injection or drainage. Fundi not examined. ENT: Hearing grossly normal. Nose without bleeding or purulent drainage. Moist oral mucosa NECK: Trachea midline. Supple, nontender. CARDIOVASCULAR: irregular rate and rhythm without murmurs, gallops, or rubs. No JVD. Edema noted to BLE. RESPIRATORY/CHEST: Symmetric, mildly labored respirations. Clear but diminished in the bases. No wheezes, rales, or rhonchi. GASTROINTESTINAL: Abdomen soft, non-tender, distended. No guarding. Hypoactive bowel sounds. GENITOURINARY: Without palpable bladder distension. MUSCULOSKELETAL: Extremities without clubbing, cyanosis, or edema. No joint tenderness or effusion noted. No calf tenderness. No mottling or clubbing. NEUROLOGICAL: Awake and alert, oriented to self, place and situation. Follows commands. Moves all extremities. PSYCHIATRIC: No obvious anxiety/depression. no apparent hallucinations or other psychotic thought process. Diagnostic Tests Laboratory: Laboratory Results - last 72 hr 01/11/18 01/11/18 01/11/18 01:40 01:40 01:45 WBC RBC Hgb Hct MCV MCH MCHC RDW Plt Count MPV Neut % (Auto) Lymph % (Auto) Swisher % (Auto) Eos % (Auto) Baso % (Auto) Neut # (Auto) Lymph # (Auto) Swisher # (Auto) Eos # (Auto) Baso # (Auto) WBC Differential Differential Comment PT 17.9 H INR 1.8 APTT 32.0 H Puncture Site Right radial Patient Temperature 98.6 O2 Saturation 97 ABG pH 7.39 ABG pCO2 51 H* ABG pO2 134 H ABG HCO3 30 H ABG O2 Content 13.4 ABG Base Excess 5.7 H ABG Methemoglobin 0.5 Ricardo Test Present Hemoglobin 9.6 L Carboxyhemoglobin 2.0 O2 Delivery Device Bipap Vent Setting 12/5 Inspired O2 100 Critical Value Yes Sodium Potassium Chloride Carbon Dioxide Anion Gap BUN Creatinine Estimated GFR POC Glucose Random Glucose Lactic Acid Calcium Phosphorus Magnesium Total Bilirubin AST ALT Alkaline Phosphatase Total Creatine Kinase Troponin I B-Natriuretic Peptide Total Protein Albumin Urine Color Yellow Urine Clarity Cloudy H Urine pH 6.0 Ur Specific [place] 1.010 Urine Protein 100 H Urine Glucose (UA) Negative Urine Ketones Negative Urine Occult Blood Small H Urine Nitrate Negative Urine Bilirubin Negative Urine Urobilinogen Less than 2 Ur Leukocyte Esterase Large H Urine RBC 11 H Urine WBC Urine WBC Clumps Many H Ur Squamous Epith Cells 1 Urine Bacteria Rare H Hyaline Casts 4 Nasal Screen MRSA (PCR) 01/11/18 01/11/18 01/11/18 01:45 01:45 01:45 WBC 13.2 H RBC 4.06 Hgb 10.2 L Hct 32.4 L MCV 79.7 L MCH 25.1 L MCHC 31.5 L RDW 17.9 H Plt Count 369 D MPV 8.1 Neut % (Auto) 89.3 H Lymph % (Auto) 5.4 L Swisher % (Auto) 2.5 Eos % (Auto) 2.1 Baso % (Auto) 0.7 Neut # (Auto) 11.8 H Lymph # (Auto) 0.7 L Swisher # (Auto) 0.3 Eos # (Auto) 0.3 Baso # (Auto) 0.1 WBC Differential . Differential Comment Auto diff final PT INR APTT Puncture Site Patient Temperature O2 Saturation ABG pH ABG pCO2 ABG pO2 ABG HCO3 ABG O2 Content ABG Base Excess ABG Methemoglobin Ricardo Test Hemoglobin Carboxyhemoglobin O2 Delivery Device Vent Setting Inspired O2 Critical Value Sodium Potassium Chloride Carbon Dioxide Anion Gap BUN Creatinine Estimated GFR POC Glucose Random Glucose Lactic Acid Calcium Phosphorus Magnesium Total Bilirubin AST ALT Alkaline Phosphatase Total Creatine Kinase 33 Troponin I Less than 0.02 L B-Natriuretic Peptide 263 H Total Protein Albumin Urine Color Urine Clarity Urine pH Ur Specific [place] Urine Protein Urine Glucose (UA) Urine Ketones Urine Occult Blood Urine Nitrate Urine Bilirubin Urine Urobilinogen Ur Leukocyte Esterase Urine RBC Urine WBC Urine WBC Clumps Ur Squamous Epith Cells Urine Bacteria Hyaline Casts Nasal Screen MRSA (PCR) 01/11/18 01/11/18 01/11/18 01:45 01:50 02:23 WBC RBC Hgb Hct MCV MCH MCHC RDW Plt Count MPV Neut % (Auto) Lymph % (Auto) Swisher % (Auto) Eos % (Auto) Baso % (Auto) Neut # (Auto) Lymph # (Auto) Swisher # (Auto) Eos # (Auto) Baso # (Auto) WBC Differential Differential Comment PT INR APTT Puncture Site Patient Temperature O2 Saturation ABG pH ABG pCO2 ABG pO2 ABG HCO3 ABG O2 Content ABG Base Excess ABG Methemoglobin Ricardo Test Hemoglobin Carboxyhemoglobin O2 Delivery Device Vent Setting Inspired O2 Critical Value Sodium 140 Potassium 3.2 L Chloride 101 Carbon Dioxide 32.6 H Anion Gap 6 BUN 11 Creatinine 1.20 H Estimated GFR 44 L POC Glucose 163 H Random Glucose 153 H Lactic Acid 1.5 Calcium 8.2 L Phosphorus Magnesium Total Bilirubin 0.4 AST 21 ALT 13 Alkaline Phosphatase 175 H Total Creatine Kinase Troponin I B-Natriuretic Peptide Total Protein 8.2 Albumin 3.1 L Urine Color Urine Clarity Urine pH Ur Specific [place] Urine Protein Urine Glucose (UA) Urine Ketones Urine Occult Blood Urine Nitrate Urine Bilirubin Urine Urobilinogen Ur Leukocyte Esterase Urine RBC Urine WBC Urine WBC Clumps Ur Squamous Epith Cells Urine Bacteria Hyaline Casts Nasal Screen MRSA (PCR) 01/11/18 01/11/18 01/11/18 09:40 14:00 17:00 WBC RBC Hgb Hct MCV MCH MCHC RDW Plt Count MPV Neut % (Auto) Lymph % (Auto) Swisher % (Auto) Eos % (Auto) Baso % (Auto) Neut # (Auto) Lymph # (Auto) Swisher # (Auto) Eos # (Auto) Baso # (Auto) WBC Differential Differential Comment PT INR APTT Puncture Site Patient Temperature O2 Saturation ABG pH ABG pCO2 ABG pO2 ABG HCO3 ABG O2 Content ABG Base Excess ABG Methemoglobin Ricardo Test Hemoglobin Carboxyhemoglobin O2 Delivery Device Vent Setting Inspired O2 Critical Value Sodium Potassium Chloride Carbon Dioxide Anion Gap BUN Creatinine Estimated GFR POC Glucose 312 H 298 H 265 H Random Glucose Lactic Acid Calcium Phosphorus Magnesium Total Bilirubin AST ALT Alkaline Phosphatase Total Creatine Kinase Troponin I B-Natriuretic Peptide Total Protein Albumin Urine Color Urine Clarity Urine pH Ur Specific [place] Urine Protein Urine Glucose (UA) Urine Ketones Urine Occult Blood Urine Nitrate Urine Bilirubin Urine Urobilinogen Ur Leukocyte Esterase Urine RBC Urine WBC Urine WBC Clumps Ur Squamous Epith Cells Urine Bacteria Hyaline Casts Nasal Screen MRSA (PCR) 01/11/18 01/12/18 01/12/18 23:36 00:00 04:58 WBC 10.7 RBC 3.13 L Hgb 8.3 L Hct 24.9 L MCV 79.5 L MCH 26.4 L MCHC 33.2 RDW 17.9 H Plt Count 260 MPV 8.1 Neut % (Auto) 86.4 H Lymph % (Auto) 6.7 L Swisher % (Auto) 6.7 Eos % (Auto) 0.0 Baso % (Auto) 0.2 Neut # (Auto) 9.2 H Lymph # (Auto) 0.7 L Swisher # (Auto) 0.7 Eos # (Auto) 0.0 Baso # (Auto) 0.0 WBC Differential . Differential Comment Auto diff final PT INR APTT Puncture Site Patient Temperature O2 Saturation ABG pH ABG pCO2 ABG pO2 ABG HCO3 ABG O2 Content ABG Base Excess ABG Methemoglobin Ricardo Test Hemoglobin Carboxyhemoglobin O2 Delivery Device Vent Setting Inspired O2 Critical Value Sodium Potassium Chloride Carbon Dioxide Anion Gap BUN Creatinine Estimated GFR POC Glucose 253 H Random Glucose Lactic Acid Calcium Phosphorus Magnesium Total Bilirubin AST ALT Alkaline Phosphatase Total Creatine Kinase Troponin I B-Natriuretic Peptide Total Protein Albumin Urine Color Urine Clarity Urine pH Ur Specific [place] Urine Protein Urine Glucose (UA) Urine Ketones Urine Occult Blood Urine Nitrate Urine Bilirubin Urine Urobilinogen Ur Leukocyte Esterase Urine RBC Urine WBC Urine WBC Clumps Ur Squamous Epith Cells Urine Bacteria Hyaline Casts Nasal Screen MRSA (PCR) Not detected 01/12/18 01/12/18 01/12/18 04:58 05:43 12:17 WBC RBC Hgb Hct MCV MCH MCHC RDW Plt Count MPV Neut % (Auto) Lymph % (Auto) Swisher % (Auto) Eos % (Auto) Baso % (Auto) Neut # (Auto) Lymph # (Auto) Swisher # (Auto) Eos # (Auto) Baso # (Auto) WBC Differential Differential Comment PT INR APTT Puncture Site Patient Temperature O2 Saturation ABG pH ABG pCO2 ABG pO2 ABG HCO3 ABG O2 Content ABG Base Excess ABG Methemoglobin Ricardo Test Hemoglobin Carboxyhemoglobin O2 Delivery Device Vent Setting Inspired O2 Critical Value Sodium 137 Potassium 3.0 L Chloride 98 Carbon Dioxide 29.5 Anion Gap 10 BUN 23 H Creatinine 1.15 H Estimated GFR 47 L POC Glucose 168 H 205 H Random Glucose 152 H Lactic Acid Calcium 8.4 L Phosphorus 3.3 Magnesium 1.5 Total Bilirubin AST ALT Alkaline Phosphatase Total Creatine Kinase Troponin I B-Natriuretic Peptide Total Protein Albumin Urine Color Urine Clarity Urine pH Ur Specific [place] Urine Protein Urine Glucose (UA) Urine Ketones Urine Occult Blood Urine Nitrate Urine Bilirubin Urine Urobilinogen Ur Leukocyte Esterase Urine RBC Urine WBC Urine WBC Clumps Ur Squamous Epith Cells Urine Bacteria Hyaline Casts Nasal Screen MRSA (PCR) 01/12/18 01/12/18 01/13/18 17:46 23:27 05:00 WBC 9.7 RBC 3.28 L Hgb 8.4 L Hct 26.1 L MCV 79.6 L MCH 25.6 L MCHC 32.2 RDW 17.5 H Plt Count 268 MPV 8.0 Neut % (Auto) 81.1 H Lymph % (Auto) 9.7 Swisher % (Auto) 8.5 H Eos % (Auto) 0.3 Baso % (Auto) 0.4 Neut # (Auto) 7.8 H Lymph # (Auto) 0.9 L Swisher # (Auto) 0.8 Eos # (Auto) 0.0 Baso # (Auto) 0.0 WBC Differential . Differential Comment Auto diff final PT INR APTT Puncture Site Patient Temperature O2 Saturation ABG pH ABG pCO2 ABG pO2 ABG HCO3 ABG O2 Content ABG Base Excess ABG Methemoglobin Ricardo Test Hemoglobin Carboxyhemoglobin O2 Delivery Device Vent Setting Inspired O2 Critical Value Sodium Potassium Chloride Carbon Dioxide Anion Gap BUN Creatinine Estimated GFR POC Glucose 164 H 138 H Random Glucose Lactic Acid Calcium Phosphorus Magnesium Total Bilirubin AST ALT Alkaline Phosphatase Total Creatine Kinase Troponin I B-Natriuretic Peptide Total Protein Albumin Urine Color Urine Clarity Urine pH Ur Specific [place] Urine Protein Urine Glucose (UA) Urine Ketones Urine Occult Blood Urine Nitrate Urine Bilirubin Urine Urobilinogen Ur Leukocyte Esterase Urine RBC Urine WBC Urine WBC Clumps Ur Squamous Epith Cells Urine Bacteria Hyaline Casts Nasal Screen MRSA (PCR) 01/13/18 01/13/18 01/13/18 05:00 05:00 06:00 WBC RBC Hgb Hct MCV MCH MCHC RDW Plt Count MPV Neut % (Auto) Lymph % (Auto) Swisher % (Auto) Eos % (Auto) Baso % (Auto) Neut # (Auto) Lymph # (Auto) Swisher # (Auto) Eos # (Auto) Baso # (Auto) WBC Differential Differential Comment PT INR APTT Puncture Site Patient Temperature O2 Saturation ABG pH ABG pCO2 ABG pO2 ABG HCO3 ABG O2 Content ABG Base Excess ABG Methemoglobin Ricardo Test Hemoglobin Carboxyhemoglobin O2 Delivery Device Vent Setting Inspired O2 Critical Value Sodium 138 Potassium 2.6 L* Chloride 97 L Carbon Dioxide 31.7 Anion Gap 9 BUN 21 H Creatinine 1.02 H Estimated GFR 53 L POC Glucose 118 H Random Glucose 111 H Lactic Acid Calcium 8.3 L Phosphorus Magnesium 1.4 L Total Bilirubin AST ALT Alkaline Phosphatase Total Creatine Kinase Troponin I B-Natriuretic Peptide Total Protein Albumin Urine Color Urine Clarity Urine pH Ur Specific [place] Urine Protein Urine Glucose (UA) Urine Ketones Urine Occult Blood Urine Nitrate Urine Bilirubin Urine Urobilinogen Ur Leukocyte Esterase Urine RBC Urine WBC Urine WBC Clumps Ur Squamous Epith Cells Urine Bacteria Hyaline Casts Nasal Screen MRSA (PCR) Result Diagrams: 01/13/18 05:00 01/13/18 05:00 Microbiology: Microbiology 01/11/18 01:45 Aerobic Blood Culture - Preliminary Blood - Peripheral No growth in 1 day Anaerobic Blood Culture - Preliminary No growth in 1 day 01/11/18 01:50 Aerobic Blood Culture - Preliminary Blood - Peripheral No growth in 1 day Anaerobic Blood Culture - Preliminary No growth in 1 day 01/11/18 08:21 Urine Culture - Final Catheterized Urine 50-100,000 cfu/mL mixed regina (probable contaminants) 01/11/18 09:43 Influenza Types A,B Antigen - Final Nasal Wash Negative for FLU A and B antigen Infection due to influenza A or B cannot be ruled out since the antigen present in the sample may be below the detection limit of the test. 01/11/18 08:21 Streptococcus pneumoniae Antigen (M - Final Urine - Catheterized Urine Presumptive negative for streptococcus pneumoniae antigen, suggesting no current or recent infection. Infection due to Streptococcus pneumoniae cannot be ruled out since the antigen present in the sample may be below the detection limit of the test. 01/11/18 08:21 Legionella Antigen - Final Urine - Catheterized Urine Presumptive negative for Legionella pneumophila serogroup 1 antigen in urine, suggesting no recent or recurrent infection. Infection due to Legionella cannot be ruled out since other serogroups and species may cause disease, antigen may not be present in urine in early infection, and the level of antigen present in the urine may be below the detection limit of the test. Imaging: Chest X-Ray 01/12/18 07:18 CONCLUSION: 1. Mild interval improvement in bilateral infiltrates with consolidative opacity at the left lung base. 2. Left costophrenic angle appears blunted which could indicate an effusion. Patient/Family Conference Family Conference Location: Bedside Issues Discussed: * Palliative care role, purpose, approach * Additional medical, psychosocial, and spiritual history * Patients general health, functional status, and cognitive changes in the months leading up to the current hospitalization * Patient/family understanding of the current medical problems * Patient/family understanding of prognosis * Patients goals of care as best understood from advance directives and/or conversations and/or values * Current medical treatment options and benefits/burdens of those options * Likely scenarios comparing ongoing aggressive care with a transition to comfort measures only * Questions answered to the best of my ability * Palliative care contact information provided Assessment and Plan - Disease Oriented Problem List (1) Acute hypoxemic respiratory failure (2) UTI (urinary tract infection) (3) Diabetes (4) Atrial fibrillation (5) Chronic anticoagulation (6) H/O malignant neoplasm of colon (7) Bone metastases (8) Pulmonary edema (9) Mild protein-energy malnutrition - Symptom Scale (1) Generalized weakness 0-10 Scale: Unable to quantify (2) Shortness of breath 0-10 Scale: Unable to quantify (3) Debility 0-10 Scale: Unable to quantify Pertinent Non-Medical Issues: Psychosocial: Patient was born in [facility]. 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 Patient was very active in community up until she was diagnosed with colon cancer. Patient is . She has 2 adult sons. Spiritual: Patient is Holiness Legal: Ethical issues impacting care: None at this time Important Contacts: Spouse: Janel Marroquin Son: Jose Rafael Marroquin Prognosis: Mrs. Marroquin is a 72 years old female with a past medical history of colon cancer, diabetes mellitus, hypertension, hyperlipidemia, atrial fibrillation status post ablation on Xarelto, hypothyroidism, chronic kidney disease stage III, pulmonary hypertension, CHF and chronic O2 3 L at home, L3 compression fracture , history of GI bleed, depression, recurrent sepsis and TIA 2. Patient had recent CT which showed widespread bony lesions most likely representing metastatic disease and is currently awaiting outpatient PET. Patient presented to the emergency room via EMS on 01/11/18 from [facility] with complaints of shortness of breath and fever. Given ongoing multiple comorbidities patient remains at high risk for further complications, deterioration and decline. Code Status: Full Code Plan: PLAN: Legal decision maker: Patient is alert, oriented to self, place and situation. Patient is able to participate in medical decision making. In the event that patient is incapacitated she verbally stated that she would want her to be his healthcare surrogate, and both her 2 adult sons Jose Rafael and Sid to be alternate healthcare surrogates. Goals: Aggressive. During this visit, discussed importance of completing advanced directives. Patient is interested, requested copies of healthcare surrogate, living will and 5 wishes forms to further review, discuss with family before completion and signing. Patient is not sure if she would want to be intubated or resuscitated at this time. She would also like to further discuss with her stands before making a concrete decision. Explained to patient that in the meantime she remains a full code and explained fully to her what that entails. Patient verbalized understanding. CODE STATUS: Full code SYMPTOMS: * Shortness of breath: Patient is history of diastolic heart failure and is on chronic home oxygen. Patient came in with complaints of shortness of breath and edema bilateral lower extremity. Lasix administered in ER. Patient is currently on humidified O2 2 L nasal cannula with O2 sats in the low to mid 90s. * Generalized weakness: Patient has had multiple hospitalizations. Patient complaining of feeling weak. PT consulted * Debility:Progressive. Patient has had multiple hospitalizations and was still at rehab after last hospitalization. Patient states that she is only able to walk very slowly short distances with a rolling walker. PT consulted, recommended PT at rehabilitation. Palliative care will continue to follow the patient during hospital course as condition evolves, to assist patient/decision-maker with understanding of their medical conditions, weighing benefits/burdens of treatment options, for clarification of goals of treatment. Additionally will assist with any symptoms of palliative concern. Appreciation Thank you for the opportunity to participate in the care of Shauna Marroquin. Attestation Attestation: To help prompt me to consider important information that might be impacting today's encounter and assessment, information from prior notes written by myself or my colleagues may have been "brought forward" into today's note. My signature on this note, however, is an attestation that I personally performed the exam, history, and/or decision-making noted today, and, unless otherwise indicated, the interactions with patient, family, and staff as well as the review of records all occurred today. I also attest that the listed assessment and stated plan reflect my best clinical judgment today based on the combination of historical information, prior notes, and today's exam/ interactions. When time spent is documented, it refers only to time spent today by the signer, or if indicated, combined time spent today by collaborating physician/nurse practitioner.
[2018-01-13] MEDS: Venlafaxine XR 75 MG Capsule PO SCH (11:45)
[2018-01-13] MEDS: Famotidine 20 MG Tablet PO SCH ×2 (11:47→21:24)
[2018-01-13] MEDS: Magnesium Oxide 400 MG Tablet PO SCH ×2 (14:02→21:24)
[2018-01-14] MEDS: Chlorhexidine Gluconate 2% 1 Pack (2 Cloths) TOPICAL SCH (06:15)
[2018-01-14] MEDS: Levothyroxine 50 MCG Tablet PO SCH (06:16)
[2018-01-14] MEDS: Insulin NovoLOG Aspart Correctional Sugar Inj SQ SCH ×2 (06:17→13:46)
[2018-01-14 06:25] LABS: Calcium 8.4 mg/dL (8.5-10.1); Carbon Dioxide 32.8 meq/L (21.0-32.0); Potassium 3.7 meq/L (3.5-5.1)
--- NOTE | 2018-01-14 09:29 | P.PNIM ---
Subjective Interval history: still with some sob; says that her sob was somewhat worse last night. now on three liters of oxygen vi N/C. no chest pain or fever. Physical Exam Vital signs: Vital Signs 01/13/18 12:00 01/13/18 12:20 01/13/18 15:29 Temperature 97.6 F Pulse Rate 90 106 H 93 H Respiratory Rate 18 12 Blood Pressure 124/70 Pulse Oximetry 92 L 96 01/13/18 16:06 01/13/18 19:55 01/13/18 20:00 Temperature 97.9 F 97.6 F Pulse Rate 101 H 101 H 86 Respiratory Rate 18 16 20 Blood Pressure 111/68 123/72 Pulse Oximetry 92 L 97 92 L 01/14/18 00:00 01/14/18 03:50 01/14/18 04:00 Temperature 97.8 F 97.2 F L Pulse Rate 100 H 96 H 91 H Respiratory Rate 20 20 Blood Pressure 137/59 L 126/74 Pulse Oximetry 91 L 92 L Intake & Output 01/13/18 01/14/18 01/14/18 18:59 06:59 18:59 Intake Total 580 / 580 240 / 240 Output Total 600 / 600 Balance -20 / -20 240 / 240 Weight 83.8 kg Intake: IV 100 / 100 Maxipime Inj 2,000 MG In NS Inj 100 / 100 100 ML @ 200 mls/hr IV.SIG Q12H DEMETRA Rx#:[id number] Oral 480 / 480 240 / 240 Output: Urine 600 / 600 Other: # Voids 3 Date of Last Bowel Movement 01/11/18 - Constitutional mild distress - Routine Respiratory Exam Present: crackles - Routine Cardiovascular Exam Present: RRR - Routine Abdominal Exam Present: soft - Routine Extremities Exam Present: edema Comments: mild bilateral pedal edema. - Routine Neurological Exam Present: alert, oriented X3 - Urinary Catheter Management Indwelling Urethral Catheter Cath placed during this visit: yes, but has since been removed by the nurse Reason for continuing: Decision to DC catheter Insertion date: 01/11/18 Insertion time: 01:50 Removal date: 01/13/18 Removal time: 16:00 Results - Labs CBC & Chem 7: 01/13/18 05:00 01/14/18 05:00 Laboratory Results - last 24 hr 01/13/18 01/13/18 01/13/18 11:52 16:42 23:14 Sodium Potassium Chloride Carbon Dioxide Anion Gap BUN Creatinine Estimated GFR POC Glucose 123 H 117 H 153 H Random Glucose Calcium 01/14/18 01/14/18 04:56 05:00 Sodium 139 Potassium 3.7 D Chloride 99 Carbon Dioxide 32.8 H Anion Gap 7 BUN 15 Creatinine 0.84 Estimated GFR 67 L POC Glucose 123 H Random Glucose 107 H Calcium 8.4 L Microbiology 01/11/18 01:45 Blood - Peripheral Aerobic Blood Culture - Preliminary No growth in 2 days 01/11/18 01:45 Blood - Peripheral Anaerobic Blood Culture - Preliminary No growth in 2 days 01/11/18 01:50 Blood - Peripheral Aerobic Blood Culture - Preliminary No growth in 2 days 01/11/18 01:50 Blood - Peripheral Anaerobic Blood Culture - Preliminary No growth in 2 days Assessment and Plan - Plan Peripheral neuropathy Generalized weakness Continue gabapentin, venlafaxine 75 p.o. daily. Continue Ultram as needed for pain. Hold temazepam. Acute respiratory failure due to CHF exacerbation- improving. Former tobacco abuse Pulmonary edema vs pneumonia keep on oxygen - will taper down to keep O2 sat > 90%. continue neb treatment. CXR with cardiomegaly and bilateral opacities that looks most consistent with pulmonary edema, bilateral pneumonia difficult to exclude. continue IV Lasix- repeat CXR today. continue IV Cefepime for now. Chronic atrial fibrillation on chronic anticoagulation with Xarelto. Moderate pulmonary hypertension acute on chronic diastolic heart failure Continue diltiazem 240 mg p.o. daily, Aspirin 81 mg p.o. daily, pravastatin 40 mg p.o. daily, Xarelto 20 mill grams p.o. daily, amiodarone 100 mg p.o. daily. continue IV Lasix as noted above. Hold Norvasc. History of colon cancer status post sigmoid resection 2016 Hepatomegaly and ascites noted on CAT scan 10/31/17. Son states she has been on normal consistency diabetic diet. Chronic kidney disease stage III Hypokalemia Urinary incontinence Bilateral hydronephrosis noted on CT 10/31/17 with bilateral perinephric stranding similar to prior scan from February 2017.. She was evaluated by urology, Dr. Alvarez and no intervention was recommended. Monitor intake and output. Monitor electrolytes and replace as indicated. UTI Port in place Received Zosyn and vancomycin in the emergency department. We will follow-up blood cultures. We will cover with cefepime for UTI and possible pneumonia . Recent C. difficile colitis noted on stool 11/10. C. difficile PCR neg 12/11. She denies diarrhea or abdominal pain. Continue Lactinex. Vancomycin 125 po q6 for prevention recurrence while on abx . History of colon cancer. Recent CT scan with apparent widespread bony metastatic disease. Dr. Sly Candelario has seen and recommended outpatient PET but that has not been done yet. Bilateral lower extremity ultrasound was negative for DVT 12/12/17 VQ scan low probability for PE 10/31/17 Diabetes mellitus Monitor bedside glucose every 6 hours. Low dose insulin sliding scale as indicated Hold metformin PROPH: Xarelto will provide DVT prophylaxis. Full code Palliative care consulted. Discussed Condition With: d/w the patient; rehab was offered and the patient agreed. case management will be consulted. dc planning in 1-2 days- pending clinical improvement. Discharge Planning: within the next 24-48 hrs if continues to improve.
[2018-01-14] MEDS: Lactobacillus Acidophilus/L. Spores Tablet PO SCH ×2 (09:33→22:18)
[2018-01-14] MEDS: Senna/Docusate Sodium 8.6/50 MG Tablet PO SCH ×2 (09:33→22:18)
[2018-01-14] MEDS: Magnesium Oxide 400 MG Tablet PO SCH ×2 (09:34→22:17)
[2018-01-14] MEDS: Rivaroxaban 20 MG Tablet PO SCH (09:34)
[2018-01-14] MEDS: Gabapentin 400 MG Capsule PO SCH ×3 (09:34→18:34)
[2018-01-14] MEDS: dilTIAZem CD 240 MG Capsule PO SCH (09:34)
[2018-01-14] MEDS: Amiodarone 200 MG Tablet PO SCH (09:34)
[2018-01-14] MEDS: Famotidine 20 MG Tablet PO SCH ×2 (09:35→22:19)
--- NOTE | 2018-01-14 11:13 | XR ---
EXAM DATE: 01/14/2018 10:42 AM EDT AGE/SEX: 72 years / Female INDICATIONS: Short of breath. CLINICAL DATA: This is the patient's subsequent encounter. Patient reports that signs and symptoms h ave been present for 3 days and indicates a pain score of 2/10. MEDICAL/SURGICAL HISTORY: . Transient ischemic attack. Hypothyroidism. Cerebral hemorrhage. Ant icoagulant therapy. Atrial fibrillation. Hypertension. Chemotherapy. Colon cancer. Appendectomy. Cesa rean section. Oophorectomy. Colon resection. Hernia repair. Infusaport. . COMPARISON: [facility] [place] [facility] [place] 1V SINGLE AP, 01/12/2018. . FINDINGS: A single AP erect portable view of the chest was obtained. This demonstrates mild interval increase i n the bilateral parenchymal opacities. This is greatest in the right upper lobe and both lung bases. The left costophrenic angle may be mildly blunted. The left hemidiaphragm remains partially obscured. The heart size is mildly enlarged. The right-sided port catheter remains in place. The bony thorax i s intact. CONCLUSION: 1. Mild interval increase in pulmonary opacities most characteristic of pulmonary edema. 2. Probable small left pleural effusion. Electronically signed by: Robe Menchaca MD 01/14/2018 11:12 AM EDT
--- NOTE | 2018-01-14 11:57 | P.PNPAL ---
Reason for Visit Reason for visit: a. To assist with evaluation and management of symptoms including: Generalized weakness, shortness of breath, debility b. To assist medical decision maker(s) with: better understanding of current medical conditions; weighing benefits/burdens of medical treatment options; making medical treatment decisions. Subjective Subjective/Interval History: Follow-up medically necessary for symptom management and further clarification of goals of care. Patient seen in her room, sitting up in a chair. Patient has shortness of breath with conversation. Patient complains of shortness of breath overnight and O2 was increased to humidified 3 L nasal cannula. Patient has 2+ edema to bilateral lower extremities. Assisted with transferring patient to bedside commode, patient is very weak and ambulates very slowly. Patient out of breath with just taking approximately 4-5 steps from the chair to the bedside commode. Noticeable shortness of breath with activity. Chest x-ray today revealing mild interval increase in pulmonary opacities most characteristic of pulmonary edema and probable small left pleural effusion. Patient did not have time to go over healthcare surrogate forms and living well. Provided patient with a copy of 5 wishes as discussed yesterday. Patient would like to go over it as well before completing it and signing it. Patient appears exhausted, will continue to follow to further clarify goals of care. Advance Directives Living Will: Never completed Health Care Surrogate: Never completed Durable Power of Manufacturing Team Leader: Never completed Objective Vital Signs: Vital Signs 01/13/18 12:00 01/13/18 12:20 01/13/18 15:29 Temperature 97.6 F Pulse Rate 90 106 H 93 H Respiratory Rate 18 12 Blood Pressure 124/70 Pulse Oximetry 92 L 96 01/13/18 16:06 01/13/18 19:55 01/13/18 20:00 Temperature 97.9 F 97.6 F Pulse Rate 101 H 101 H 86 Respiratory Rate 18 16 20 Blood Pressure 111/68 123/72 Pulse Oximetry 92 L 97 92 L 01/14/18 00:00 01/14/18 03:50 01/14/18 04:00 Temperature 97.8 F 97.2 F L Pulse Rate 100 H 96 H 91 H Respiratory Rate 20 20 Blood Pressure 137/59 L 126/74 Pulse Oximetry 91 L 92 L 01/14/18 08:00 01/14/18 08:25 Temperature 98.1 F Pulse Rate 120 H 110 H Respiratory Rate 22 20 Blood Pressure 144/75 H Pulse Oximetry 95 94 L Intake & Output 01/13/18 01/14/18 01/14/18 18:59 06:59 18:59 Intake Total 580 / 580 340 / 340 Output Total 600 / 600 Balance -20 / -20 340 / 340 Weight 83.8 kg Intake: IV 100 / 100 100 / 100 Maxipime Inj 2,000 MG In NS Inj 100 / 100 100 / 100 100 ML @ 200 mls/hr IV.SIG Q12H DEMETRA Rx#:[id number] Oral 480 / 480 240 / 240 Output: Urine 600 / 600 Other: # Voids 3 Date of Last Bowel Movement 01/11/18 Physical Exam: CONSTITUTIONAL/GENERAL: This is an elderly, chronically ill looking patient in no apparent distress. TUBES/LINES/DRAINS: NC; PIV SKIN: Pale, No jaundice, or lesions. Ecchymoses on upper extremities. No wounds seen anteriorly. Skin temperature appropriate. Not diaphoretic. HEAD: Atraumatic. Normocephalic. EYES: Pupils equal and round and reactive. Extraocular motions intact. No scleral icterus. No injection or drainage. Fundi not examined. ENT: Hearing grossly normal. Nose without bleeding or purulent drainage. Moist oral mucosa NECK: Trachea midline. Supple, nontender. CARDIOVASCULAR: irregular rate and rhythm without murmurs, gallops, or rubs. No JVD. Edema noted to BLE. RESPIRATORY/CHEST: Symmetric, mildly labored respirations. diminished in the bases. No wheezes, rales, or rhonchi. GASTROINTESTINAL: Abdomen soft, non-tender, distended. No guarding. Hypoactive bowel sounds. GENITOURINARY: Without palpable bladder distension. MUSCULOSKELETAL: Extremities without clubbing, cyanosis, or edema. No calf tenderness. No mottling or clubbing. NEUROLOGICAL: Awake and alert, oriented to self, place and situation. Follows commands. Moves all extremities weakly PSYCHIATRIC: No obvious anxiety/depression. no apparent hallucinations or other psychotic thought process. Diagnostic Tests Laboratory: Laboratory Results - last 72 hr 01/11/18 01/11/18 01/11/18 14:00 17:00 23:36 WBC RBC Hgb Hct MCV MCH MCHC RDW Plt Count MPV Neut % (Auto) Lymph % (Auto) Falls % (Auto) Eos % (Auto) Baso % (Auto) Neut # (Auto) Lymph # (Auto) Falls # (Auto) Eos # (Auto) Baso # (Auto) WBC Differential Differential Comment Sodium Potassium Chloride Carbon Dioxide Anion Gap BUN Creatinine Estimated GFR POC Glucose 298 H 265 H 253 H Random Glucose Calcium Phosphorus Magnesium Nasal Screen MRSA (PCR) 01/12/18 01/12/18 01/12/18 00:00 04:58 04:58 WBC 10.7 RBC 3.13 L Hgb 8.3 L Hct 24.9 L MCV 79.5 L MCH 26.4 L MCHC 33.2 RDW 17.9 H Plt Count 260 MPV 8.1 Neut % (Auto) 86.4 H Lymph % (Auto) 6.7 L Falls % (Auto) 6.7 Eos % (Auto) 0.0 Baso % (Auto) 0.2 Neut # (Auto) 9.2 H Lymph # (Auto) 0.7 L Falls # (Auto) 0.7 Eos # (Auto) 0.0 Baso # (Auto) 0.0 WBC Differential . Differential Comment Auto diff final Sodium 137 Potassium 3.0 L Chloride 98 Carbon Dioxide 29.5 Anion Gap 10 BUN 23 H Creatinine 1.15 H Estimated GFR 47 L POC Glucose Random Glucose 152 H Calcium 8.4 L Phosphorus 3.3 Magnesium 1.5 Nasal Screen MRSA (PCR) Not detected 01/12/18 01/12/18 01/12/18 05:43 12:17 17:46 WBC RBC Hgb Hct MCV MCH MCHC RDW Plt Count MPV Neut % (Auto) Lymph % (Auto) Falls % (Auto) Eos % (Auto) Baso % (Auto) Neut # (Auto) Lymph # (Auto) Falls # (Auto) Eos # (Auto) Baso # (Auto) WBC Differential Differential Comment Sodium Potassium Chloride Carbon Dioxide Anion Gap BUN Creatinine Estimated GFR POC Glucose 168 H 205 H 164 H Random Glucose Calcium Phosphorus Magnesium Nasal Screen MRSA (PCR) 01/12/18 01/13/18 01/13/18 23:27 05:00 05:00 WBC 9.7 RBC 3.28 L Hgb 8.4 L Hct 26.1 L MCV 79.6 L MCH 25.6 L MCHC 32.2 RDW 17.5 H Plt Count 268 MPV 8.0 Neut % (Auto) 81.1 H Lymph % (Auto) 9.7 Falls % (Auto) 8.5 H Eos % (Auto) 0.3 Baso % (Auto) 0.4 Neut # (Auto) 7.8 H Lymph # (Auto) 0.9 L Falls # (Auto) 0.8 Eos # (Auto) 0.0 Baso # (Auto) 0.0 WBC Differential . Differential Comment Auto diff final Sodium 138 Potassium 2.6 L* Chloride 97 L Carbon Dioxide 31.7 Anion Gap 9 BUN 21 H Creatinine 1.02 H Estimated GFR 53 L POC Glucose 138 H Random Glucose 111 H Calcium 8.3 L Phosphorus Magnesium Nasal Screen MRSA (PCR) 01/13/18 01/13/18 01/13/18 05:00 06:00 11:52 WBC RBC Hgb Hct MCV MCH MCHC RDW Plt Count MPV Neut % (Auto) Lymph % (Auto) Falls % (Auto) Eos % (Auto) Baso % (Auto) Neut # (Auto) Lymph # (Auto) Falls # (Auto) Eos # (Auto) Baso # (Auto) WBC Differential Differential Comment Sodium Potassium Chloride Carbon Dioxide Anion Gap BUN Creatinine Estimated GFR POC Glucose 118 H 123 H Random Glucose Calcium Phosphorus Magnesium 1.4 L Nasal Screen MRSA (PCR) 01/13/18 01/13/18 01/14/18 16:42 23:14 04:56 WBC RBC Hgb Hct MCV MCH MCHC RDW Plt Count MPV Neut % (Auto) Lymph % (Auto) Falls % (Auto) Eos % (Auto) Baso % (Auto) Neut # (Auto) Lymph # (Auto) Falls # (Auto) Eos # (Auto) Baso # (Auto) WBC Differential Differential Comment Sodium Potassium Chloride Carbon Dioxide Anion Gap BUN Creatinine Estimated GFR POC Glucose 117 H 153 H 123 H Random Glucose Calcium Phosphorus Magnesium Nasal Screen MRSA (PCR) 01/14/18 05:00 WBC RBC Hgb Hct MCV MCH MCHC RDW Plt Count MPV Neut % (Auto) Lymph % (Auto) Falls % (Auto) Eos % (Auto) Baso % (Auto) Neut # (Auto) Lymph # (Auto) Falls # (Auto) Eos # (Auto) Baso # (Auto) WBC Differential Differential Comment Sodium 139 Potassium 3.7 D Chloride 99 Carbon Dioxide 32.8 H Anion Gap 7 BUN 15 Creatinine 0.84 Estimated GFR 67 L POC Glucose Random Glucose 107 H Calcium 8.4 L Phosphorus Magnesium Nasal Screen MRSA (PCR) Result Diagrams: 01/13/18 05:00 01/14/18 05:00 Microbiology: Microbiology 01/11/18 01:45 Aerobic Blood Culture - Preliminary Blood - Peripheral No growth in 3 days Anaerobic Blood Culture - Preliminary No growth in 3 days 01/11/18 01:50 Aerobic Blood Culture - Preliminary Blood - Peripheral No growth in 3 days Anaerobic Blood Culture - Preliminary No growth in 3 days 01/11/18 08:21 Urine Culture - Final Catheterized Urine 50-100,000 cfu/mL mixed regina (probable contaminants) 01/11/18 09:43 Influenza Types A,B Antigen - Final Nasal Wash Negative for FLU A and B antigen Infection due to influenza A or B cannot be ruled out since the antigen present in the sample may be below the detection limit of the test. 01/11/18 08:21 Streptococcus pneumoniae Antigen (M - Final Urine - Catheterized Urine Presumptive negative for streptococcus pneumoniae antigen, suggesting no current or recent infection. Infection due to Streptococcus pneumoniae cannot be ruled out since the antigen present in the sample may be below the detection limit of the test. 01/11/18 08:21 Legionella Antigen - Final Urine - Catheterized Urine Presumptive negative for Legionella pneumophila serogroup 1 antigen in urine, suggesting no recent or recurrent infection. Infection due to Legionella cannot be ruled out since other serogroups and species may cause disease, antigen may not be present in urine in early infection, and the level of antigen present in the urine may be below the detection limit of the test. Imaging: Chest X-Ray 01/14/18 00:00 CONCLUSION: 1. Mild interval increase in pulmonary opacities most characteristic of pulmonary edema. 2. Probable small left pleural effusion. Assessment and Plan - Disease Oriented Problem List (1) Acute hypoxemic respiratory failure (2) UTI (urinary tract infection) (3) Diabetes (4) Atrial fibrillation (5) Chronic anticoagulation (6) H/O malignant neoplasm of colon (7) Bone metastases (8) Pulmonary edema (9) Mild protein-energy malnutrition Pertinent Non-Medical Issues: Psychosocial: Patient was born in [facility]. 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 Patient was very active in community up until she was diagnosed with colon cancer. Patient is . She has 2 adult sons. Spiritual: Patient is Sikhism Legal: Never completed advanced directives Ethical issues impacting care: None at this time Important Contacts: Spouse: Janel Marroquin Son: Jose Rafael Marroquin Prognosis: Mrs. Marroquin is a 72 years old female with a past medical history of colon cancer, diabetes mellitus, hypertension, hyperlipidemia, atrial fibrillation status post ablation on Xarelto, hypothyroidism, chronic kidney disease stage III, pulmonary hypertension, CHF and chronic O2 3 L at home, L3 compression fracture , history of GI bleed, depression, recurrent sepsis and TIA 2. Patient had recent CT which showed widespread bony lesions most likely representing metastatic disease and is currently awaiting outpatient PET. Patient presented to the emergency room via EMS on 01/11/18 from [facility] with complaints of shortness of breath and fever. Given ongoing multiple comorbidities patient remains at high risk for further complications, deterioration and decline. Code Status: Full Code Plan: PLAN: Legal decision maker: Patient is alert, oriented to self, place and situation. Patient is able to participate in medical decision making. In the event that patient is incapacitated she verbally stated that she would want her to be his healthcare surrogate, and both her 2 adult sons Jose Rafael and Sid to be alternate healthcare surrogates. Goals: Aggressive. During this visit, discussed importance of completing advanced directives. Patient is interested, requested copies of healthcare surrogate, living will and 5 wishes forms to further review, discuss with family before completion and signing. Patient is not sure if she would want to be intubated or resuscitated at this time. She would also like to further discuss with her stands before making a concrete decision. Explained to patient that in the meantime she remains a full code and explained fully to her what that entails. Patient verbalized understanding. CODE STATUS: Full code SYMPTOMS: * Shortness of breath: Patient is history of diastolic heart failure and is on chronic home oxygen. Patient came in with complaints of shortness of breath and edema bilateral lower extremity. Lasix administered in ER. Patient complained of worsening shortness of breath overnight to increase to 3 L nasal cannula. Chest x-ray showing pulmonary edema. * Generalized weakness: Patient has had multiple hospitalizations. Patient complaining of feeling weak. PT consulted * Debility:Progressive. Patient has had multiple hospitalizations and was still at rehab after last hospitalization. Patient states that she is only able to walk very slowly short distances with a rolling walker. PT consulted, recommended PT at rehabilitation. Palliative care will continue to follow the patient during hospital course as condition evolves, to assist patient/decision-maker with understanding of their medical conditions, weighing benefits/burdens of treatment options, for clarification of goals of treatment. Additionally will assist with any symptoms of palliative concern. Attestation Attestation: To help prompt me to consider important information that might be impacting today's encounter and assessment, information from prior notes written by myself or my colleagues may have been "brought forward" into today's note. My signature on this note, however, is an attestation that I personally performed the exam, history, and/or decision-making noted today, and, unless otherwise indicated, the interactions with patient, family, and staff as well as the review of records all occurred today. I also attest that the listed assessment and stated plan reflect my best clinical judgment today based on the combination of historical information, prior notes, and today's exam/ interactions. When time spent is documented, it refers only to time spent today by the signer, or if indicated, combined time spent today by collaborating physician/nurse practitioner.
[2018-01-14] MEDS: Venlafaxine XR 75 MG Capsule PO SCH (11:59)
[2018-01-15] MEDS: Chlorhexidine Gluconate 2% 1 Pack (2 Cloths) TOPICAL SCH (05:44)
[2018-01-15] MEDS: Insulin NovoLOG Aspart Correctional Sugar Inj SQ SCH ×6 (05:46→23:49)
[2018-01-15] MEDS: Levothyroxine 50 MCG Tablet PO SCH (06:13)
--- NOTE | 2018-01-15 09:35 | P.PNIM ---
Subjective Interval history: in no acute distress. looks somewhat better today. sob is improving although still on oxygen via N/C. Physical Exam Vital signs: Vital Signs 01/14/18 12:00 01/14/18 16:00 01/14/18 16:18 Temperature 97.8 F 98.0 F Pulse Rate 102 H 99 H 80 Respiratory Rate 20 18 16 Blood Pressure 130/81 130/86 Pulse Oximetry 93 L 96 01/14/18 19:35 01/14/18 20:00 01/15/18 00:00 Temperature 97.8 F 98.0 F Pulse Rate 80 91 H 89 Respiratory Rate 16 18 18 Blood Pressure 116/68 105/69 Pulse Oximetry 95 94 L 01/15/18 04:00 01/15/18 08:00 01/15/18 08:19 Temperature 97.7 F 97.8 F Pulse Rate 85 110 H Respiratory Rate 18 19 Blood Pressure 106/72 121/62 Pulse Oximetry 92 L 95 95 01/15/18 08:20 Temperature Pulse Rate 72 Respiratory Rate 18 Blood Pressure Pulse Oximetry Intake & Output 01/14/18 01/15/18 01/15/18 18:59 06:59 18:59 Intake Total 1060 / 1060 220 / 220 Output Total 800 / 800 600 / 600 Balance 260 / 260 -380 / -380 Weight 82.3 kg Intake: IV 100 / 100 100 / 100 Maxipime Inj 2,000 MG In NS Inj 100 / 100 100 / 100 100 ML @ 200 mls/hr IV.SIG Q12H DEMETRA Rx#:[id number] Oral 960 / 960 120 / 120 Output: Urine 800 / 800 600 / 600 Other: # Voids 2 # Incontinent Voids 3 Date of Last Bowel Movement 01/11/18 # Bowel Movements 0 - Constitutional no acute distress - Routine Respiratory Exam Present: CTA bilaterally (better air entry.) - Routine Cardiovascular Exam Present: RRR - Routine Abdominal Exam Present: soft - Routine Extremities Exam Comments: mild bilateral pedal edema. - Routine Neurological Exam Present: alert, oriented X3 - Urinary Catheter Management Indwelling Urethral Catheter Cath placed during this visit: yes, but has since been removed by the nurse Reason for continuing: Decision to DC catheter Insertion date: 01/11/18 Insertion time: 01:50 Removal date: 01/13/18 Removal time: 16:00 Results - Labs CBC & Chem 7: 01/13/18 05:00 01/14/18 05:00 Laboratory Results - last 24 hr 01/14/18 01/14/18 01/14/18 12:39 16:42 23:59 POC Glucose 124 H 109 110 01/15/18 05:46 POC Glucose 99 Microbiology 01/11/18 01:45 Blood - Peripheral Aerobic Blood Culture - Preliminary No growth in 3 days 01/11/18 01:45 Blood - Peripheral Anaerobic Blood Culture - Preliminary No growth in 3 days 01/11/18 01:50 Blood - Peripheral Aerobic Blood Culture - Preliminary No growth in 3 days 01/11/18 01:50 Blood - Peripheral Anaerobic Blood Culture - Preliminary No growth in 3 days - Imaging Impressions Chest X-Ray 01/14/18 00:00 CONCLUSION: 1. Mild interval increase in pulmonary opacities most characteristic of pulmonary edema. 2. Probable small left pleural effusion. Assessment and Plan - Plan Peripheral neuropathy Generalized weakness Continue gabapentin, venlafaxine 75 p.o. daily. Continue Ultram as needed for pain. Hold temazepam. Acute respiratory failure due to CHF exacerbation- improving. Former tobacco abuse Pulmonary edema vs pneumonia keep on oxygen - will taper down to keep O2 sat > 90%. continue neb treatment. CXR with cardiomegaly and bilateral opacities that looks most consistent with pulmonary edema, bilateral pneumonia difficult to exclude. continue IV Lasix; the dose was increased to twice daily- continue IV Cefepime for now. Chronic atrial fibrillation on chronic anticoagulation with Xarelto. Moderate pulmonary hypertension acute on chronic diastolic heart failure Continue diltiazem 240 mg p.o. daily, Aspirin 81 mg p.o. daily, pravastatin 40 mg p.o. daily, Xarelto 20 mill grams p.o. daily, amiodarone 100 mg p.o. daily. continue IV Lasix as noted above. Hold Norvasc. History of colon cancer status post sigmoid resection 2016 Hepatomegaly and ascites noted on CAT scan 10/31/17. Son states she has been on normal consistency diabetic diet. Chronic kidney disease stage III Hypokalemia Urinary incontinence Bilateral hydronephrosis noted on CT 10/31/17 with bilateral perinephric stranding similar to prior scan from February 2017.. She was evaluated by urology, Dr. Alvarez and no intervention was recommended. Monitor intake and output. Monitor electrolytes and replace as indicated. UTI Port in place Received Zosyn and vancomycin in the emergency department. blood cultures negative so far. We will cover with cefepime for UTI and possible pneumonia . Recent C. difficile colitis noted on stool 11/10. C. difficile PCR neg 12/11. She denies diarrhea or abdominal pain. Continue Lactinex. Vancomycin 125 po q6 for prevention recurrence while on abx . History of colon cancer. Recent CT scan with apparent widespread bony metastatic disease. Dr. Sly Candelario has seen and recommended outpatient PET but that has not been done yet. Bilateral lower extremity ultrasound was negative for DVT 12/12/17 VQ scan low probability for PE 10/31/17 Diabetes mellitus Monitor bedside glucose every 6 hours. Low dose insulin sliding scale as indicated Hold metformin PROPH: Xarelto will provide DVT prophylaxis. Full code Palliative care consulted. Discharge Planning: dc to rehab in am if continues to improve.
[2018-01-15] MEDS: Amiodarone 200 MG Tablet PO SCH (09:47)
[2018-01-15] MEDS: Famotidine 20 MG Tablet PO SCH (09:48)
[2018-01-15] MEDS: Lactobacillus Acidophilus/L. Spores Tablet PO SCH ×2 (09:48→21:48)
[2018-01-15] MEDS: Senna/Docusate Sodium 8.6/50 MG Tablet PO SCH ×3 (09:48→21:49)
[2018-01-15] MEDS: Rivaroxaban 20 MG Tablet PO SCH (09:48)
[2018-01-15] MEDS: Magnesium Oxide 400 MG Tablet PO SCH ×2 (09:48→21:47)
[2018-01-15] MEDS: Venlafaxine XR 75 MG Capsule PO SCH (09:48)
[2018-01-15] MEDS: dilTIAZem CD 240 MG Capsule PO SCH (09:49)
[2018-01-15] MEDS: Gabapentin 400 MG Capsule PO SCH ×3 (09:49→17:57)
[2018-01-15 11:02] LABS: Carbon Dioxide 36.1 meq/L (21.0-32.0); Potassium 3.2 meq/L (3.5-5.1)
[2018-01-15 11:03] LABS: Calcium 8.6 mg/dL (8.5-10.1)
[2018-01-15 16:34] LABS: Carbon Dioxide 38.5 meq/L (21.0-32.0); Potassium 3.1 meq/L (3.5-5.1)
[2018-01-15 16:35] LABS: Calcium 8.8 mg/dL (8.5-10.1)
[2018-01-15 18:22] VITALS: RESP 18
[2018-01-16] MEDS: Levothyroxine 50 MCG Tablet PO SCH (06:01)
[2018-01-16] MEDS: Chlorhexidine Gluconate 2% 1 Pack (2 Cloths) TOPICAL SCH (06:01)
[2018-01-16] MEDS: Insulin NovoLOG Aspart Correctional Sugar Inj SQ SCH ×2 (06:02→12:36)
[2018-01-16] MEDS ORDERED: Famotidine 20 MG Tablet PO SCH (09:00)
--- NOTE | 2018-01-16 09:25 | P.PNIM ---
Subjective Interval history: f/u; CHF overall looking better. sob has improved. no chest pain. afebrile. Physical Exam Vital signs: Vital Signs 01/15/18 12:00 01/15/18 16:00 01/15/18 20:00 Temperature 97.8 F 98.4 F 99.0 F Pulse Rate 102 H 97 H 100 H Respiratory Rate 19 18 18 Blood Pressure 127/68 130/73 127/76 Pulse Oximetry 92 L 92 L 92 L 01/16/18 00:00 01/16/18 04:00 Temperature 98.2 F 98.0 F Pulse Rate 94 H 92 H Respiratory Rate 18 18 Blood Pressure 120/67 105/60 Pulse Oximetry 92 L 92 L Intake & Output 01/15/18 01/16/18 01/16/18 18:59 06:59 18:59 Intake Total 480 / 480 930 / 930 Output Total 700 / 700 Balance 480 / 480 230 / 230 Weight 82.3 kg Intake: IV 100 / 100 100 / 100 Maxipime Inj 2,000 MG In NS Inj 100 / 100 100 / 100 100 ML @ 200 mls/hr IV.SIG Q12H DEMETRA Rx#:[id number] Oral 380 / 380 830 / 830 Output: Urine 700 / 700 Other: # Voids 3 1 Date of Last Bowel Movement 01/11/18 # Bowel Movements 1 0 - Constitutional no acute distress - Routine Respiratory Exam Present: CTA bilaterally - Routine Cardiovascular Exam Present: RRR - Routine Abdominal Exam Present: soft - Routine Extremities Exam Comments: no pedal edema. - Routine Neurological Exam Present: alert, oriented X3 - Urinary Catheter Management Indwelling Urethral Catheter Cath placed during this visit: yes, but has since been removed by the nurse Reason for continuing: Decision to DC catheter Insertion date: 01/11/18 Insertion time: 01:50 Removal date: 01/13/18 Removal time: 16:00 Results - Labs CBC & Chem 7: 01/13/18 05:00 01/15/18 14:46 Laboratory Results - last 24 hr 01/15/18 01/15/18 01/15/18 09:05 12:24 14:46 Sodium 140 138 Potassium 3.2 L 3.1 L Chloride 97 L 93 L Carbon Dioxide 36.1 H 38.5 H Anion Gap 7 7 BUN 10 9 Creatinine 0.70 0.78 Estimated GFR 82 L 73 L POC Glucose 123 H Random Glucose 85 113 H Calcium 8.6 8.8 01/15/18 01/15/18 01/16/18 16:47 23:48 05:59 Sodium Potassium Chloride Carbon Dioxide Anion Gap BUN Creatinine Estimated GFR POC Glucose 119 H 134 H 113 H Random Glucose Calcium Microbiology 01/11/18 01:45 Blood - Peripheral Aerobic Blood Culture - Preliminary No growth in 4 days 01/11/18 01:45 Blood - Peripheral Anaerobic Blood Culture - Preliminary No growth in 4 days 01/11/18 01:50 Blood - Peripheral Aerobic Blood Culture - Preliminary No growth in 4 days 01/11/18 01:50 Blood - Peripheral Anaerobic Blood Culture - Preliminary No growth in 4 days - Procedures none. Assessment and Plan - Plan Peripheral neuropathy Generalized weakness Continue gabapentin, venlafaxine 75 p.o. daily. Continue Ultram as needed for pain. Hold temazepam. Acute respiratory failure due to CHF exacerbation- improving. Former tobacco abuse Pulmonary edema vs pneumonia keep on oxygen - will taper down to keep O2 sat > 90%. continue neb treatment. CXR with cardiomegaly and bilateral opacities that looks most consistent with pulmonary edema, bilateral pneumonia difficult to exclude. continue IV Lasix; will switch to po upon discharge. will switch to po antibiotic upon discharge. Chronic atrial fibrillation on chronic anticoagulation with Xarelto. Moderate pulmonary hypertension acute on chronic diastolic heart failure Continue diltiazem 240 mg p.o. daily, Aspirin 81 mg p.o. daily, pravastatin 40 mg p.o. daily, Xarelto 20 mill grams p.o. daily, amiodarone 100 mg p.o. daily. continue Lasix as noted above. Hold Norvasc. History of colon cancer status post sigmoid resection 2016 Hepatomegaly and ascites noted on CAT scan 10/31/17. Son states she has been on normal consistency diabetic diet. Chronic kidney disease stage III Hypokalemia Urinary incontinence Bilateral hydronephrosis noted on CT 10/31/17 with bilateral perinephric stranding similar to prior scan from February 2017.. She was evaluated by urology, Dr. Alvarez and no intervention was recommended. Monitor intake and output. Monitor electrolytes and replace as indicated. UTI Port in place blood cultures negative so far. switch to po antibiotics upon discharge. Recent C. difficile colitis noted on stool 11/10. C. difficile PCR neg 12/11. She denies diarrhea or abdominal pain. Continue Lactinex. Vancomycin 125 po q6 for prevention recurrence while on abx . History of colon cancer. Recent CT scan with apparent widespread bony metastatic disease. Dr. Sly Candelario has seen and recommended outpatient PET but that has not been done yet. Bilateral lower extremity ultrasound was negative for DVT 12/12/17 VQ scan low probability for PE 10/31/17 Diabetes mellitus Monitor bedside glucose every 6 hours. Low dose insulin sliding scale as indicated- resume metformin upon discharge. PROPH: Xarelto will provide DVT prophylaxis. Palliative care consulted. Discharge Planning: dc to rehab today after the potassium level is resulted. f/u; pcp. see med list. d/w the patient. E-[facility]cse was reviewed. time spent 35 min.
[2018-01-16] MEDS: Gabapentin 400 MG Capsule PO SCH (09:38)
[2018-01-16] MEDS: Lactobacillus Acidophilus/L. Spores Tablet PO SCH (09:38)
--- NOTE | 2018-01-16 09:38 | P.DS ---
Date of admission: 01/11/18 03:11 Primary care physician: Sheldon Dumont MD, R3 Brief History from admission: 72-year-old female with past medical history of colon cancer, recent CT with widespread bony lesions likely representing metastatic disease ( awaiting outpatient PET), diabetes mellitus, hypertension, hyperlipidemia, atrial fibrillation status post prior ablation who is anticoagulated on Xarelto , hypothyroidism, CKD stage III, pulmonary hypertension, diastolic heart failure who has been on 3 L chronic O2 at the shelter.. She presents to [facility] emergency department from [facility] with chief complaint of fever and shortness of breath. Sats were in the 80s upon [facility] arrival. She was placed on CPAP by [facility] and transition to BiPAP upon arrival. She arouses on BiPAP and answers some questions. She states that she has been having a cough and "feels like there is something in there" but it has been nonproductive. She is short of breath, denies chest pain, has bilateral peripheral edema. She has had some mild nausea, no abdominal pain, no diarrhea. She was incontinent of urine earlier today but denies dysuria or flank pain. Her son accompanies her in the emergency department and he indicates that she was ambulating with a walker earlier today and he last saw her around 8 pm with no new complaints. Her white blood cell count is 13. She is febrile to 102.2. Urinalysis is consistent with UTI. Chest x-ray with cardiomegaly and bilateral pulmonary opacities which appear c/w pulmonary edema though could be pneumonia. Troponin 0.02, BNP 263. Blood cultures have been obtained and she has received Zosyn 4.5 g IV, vancomycin, Lasix 40 mg IV, albuterol neb, and Tylenol in the emergency department. She remains on BiPAP with respiratory rate in the 20s FiO2 70% with sats 95%. Nitroglycerin paste was ordered by the emergency department physician but has been held because blood pressure drifted down to 95/54. She has recent hospitalization 10/31 through 12/10 with urosepsis, respiratory failure intubated 11/01-11/05, C. difficile. She was discharged 12/10/17. She was readmitted with pneumonia and UTI. DS: Medications - Discharge Medications Prescriptions: tramadol 50 mg PO Q6H PRN #8 tab PRN Reason: acute pain DS: Summary Hospital Course: patient was admitted with CHF exacerbation vs pneumonia. she was started on IV diuretic and antibiotic along with neb treatment. blood cultures remained negative. her sob improved slowly. otherwise the course in the hospital was uneventful. she will be discharged to rehab with f/u with her PCP. of note , metformin was discontinued due to CHF - amlodipine was discontinued and metoprolol was decreased to 50 mg daily due to low-normal BP's. - Time Spent with Patient Total time spent providing and/or coordinating discharge services: Greater than 30 minutes (35 min.) - Quality: VTE Deep Vein Thrombosis/Pulmonary Embolism Present on Admission: No Exam Vital signs: Vital Signs 01/15/18 12:00 01/15/18 16:00 01/15/18 20:00 Temperature 97.8 F 98.4 F 99.0 F Pulse Rate 102 H 97 H 100 H Respiratory Rate 19 18 18 Blood Pressure 127/68 130/73 127/76 Pulse Oximetry 92 L 92 L 92 L 01/16/18 00:00 01/16/18 04:00 Temperature 98.2 F 98.0 F Pulse Rate 94 H 92 H Respiratory Rate 18 18 Blood Pressure 120/67 105/60 Pulse Oximetry 92 L 92 L Intake & Output 01/15/18 01/16/18 01/16/18 18:59 06:59 18:59 Intake Total 480 / 480 930 / 930 Output Total 700 / 700 Balance 480 / 480 230 / 230 Weight 82.3 kg Intake: IV 100 / 100 100 / 100 Maxipime Inj 2,000 MG In NS Inj 100 / 100 100 / 100 100 ML @ 200 mls/hr IV.SIG Q12H DEMETRA Rx#:[id number] Oral 380 / 380 830 / 830 Output: Urine 700 / 700 Other: # Voids 3 1 Date of Last Bowel Movement 01/11/18 # Bowel Movements 1 0 Results Procedures completed during hospitalization: none. Labs on day of discharge: Labs from last 24 hours 01/16/18 01/16/18 01/15/18 08:41 05:59 23:48 Sodium Potassium Pending Chloride Carbon Dioxide Anion Gap BUN Creatinine Estimated GFR POC Glucose 113 H 134 H Random Glucose Calcium 01/15/18 01/15/18 01/15/18 16:47 14:46 12:24 Sodium 138 Potassium 3.1 L Chloride 93 L Carbon Dioxide 38.5 H Anion Gap 7 BUN 9 Creatinine 0.78 Estimated GFR 73 L POC Glucose 119 H 123 H Random Glucose 113 H Calcium 8.8 01/15/18 09:05 Sodium 140 Potassium 3.2 L Chloride 97 L Carbon Dioxide 36.1 H Anion Gap 7 BUN 10 Creatinine 0.70 Estimated GFR 82 L POC Glucose Random Glucose 85 Calcium 8.6 Preliminary micro results at discharge 01/11/18 01:45 Aerobic Blood Culture - Preliminary Blood - Peripheral No growth in 4 days Anaerobic Blood Culture - Preliminary No growth in 4 days 01/11/18 01:50 Aerobic Blood Culture - Preliminary Blood - Peripheral No growth in 4 days Anaerobic Blood Culture - Preliminary No growth in 4 days - Impressions ITS Impressions Chest X-Ray 01/14/18 00:00 CONCLUSION: 1. Mild interval increase in pulmonary opacities most characteristic of pulmonary edema. 2. Probable small left pleural effusion. Discharge Plan - Discharge Disposition Patient Disposition: Discharge to SNF - Discharge Condition Condition: Fair - Discharge Order Discharge Orders: Discharge Order (Routine); Ordered 01/16/18 Ordered By: Clara Riddle - Physicians Team Primary Care Provider: Sheldon Dumont Attending Provider: Clara Riddle Other Providers: To Zavala MD ; [facility]
[2018-01-16] MEDS: Magnesium Oxide 400 MG Tablet PO SCH (09:39)
[2018-01-16] MEDS: Amiodarone 200 MG Tablet PO SCH (09:39)
[2018-01-16] MEDS: Venlafaxine XR 75 MG Capsule PO SCH (09:40)
[2018-01-16] MEDS: dilTIAZem CD 240 MG Capsule PO SCH (09:40)
[2018-01-16] MEDS: Rivaroxaban 20 MG Tablet PO SCH (09:40)
[2018-01-16] MEDS: Senna/Docusate Sodium 8.6/50 MG Tablet PO SCH (10:31)
--- NOTE | 2018-01-16 13:29 | P.PNPAL ---
Reason for Visit Reason for visit: a. To assist with evaluation and management of symptoms including: Generalized weakness, shortness of breath, debility b. To assist medical decision maker(s) with: better understanding of current medical conditions; weighing benefits/burdens of medical treatment options; making medical treatment decisions. Subjective Subjective/Interval History: Follow-up medically necessary for further clarification of goals of care. Patient seen and examined in her room n the presence of her youngest son Sid. Patient is alert and oriented to self, place and situation. Patient seems very forgetful and keeps repeating herself. She remans on humidified O2 2L NC. She is denying shortness of breath. Patient endorsing neuropathic pain. Patient will be discharged back to [facility] today. Discussed advance directives, what they were and how they will be utilized in the event that patient is incapacitated. Patient mentioned that she has not reviewed the paper work but verbally expressed to her son that her would serve as her healthcare surrogate and both sons as alternate HCS. Discussed 5 wishes and patient mentioned that she would not want to be in a vegetative state but she thinks her may not agree with her. Patient`s son explained to patient that she should express her wishes because this concerns her. Patient will review 5 wishes and complete in the future. Expressed concern that patient will probably be faced with complications in the future given her multiple comorbidities and multiple hospitalizations. Encouraged patient and family to continue discussing patient`s wishes while she is able to participate and express her wishes. Case discussed with bedside RN. Advance Directives Living Will: Never completed Health Care Surrogate: Never completed Durable Power of Dehydration Unit Operator: Never completed Objective Vital Signs: Vital Signs 01/15/18 16:00 01/15/18 20:00 01/16/18 00:00 Temperature 98.4 F 99.0 F 98.2 F Pulse Rate 97 H 100 H 94 H Respiratory Rate 18 18 18 Blood Pressure 130/73 127/76 120/67 Pulse Oximetry 92 L 92 L 92 L 01/16/18 04:00 01/16/18 08:00 Temperature 98.0 F Pulse Rate 92 H Respiratory Rate 18 Blood Pressure 105/60 Pulse Oximetry 92 L 92 L Intake & Output 01/15/18 01/16/18 01/16/18 18:59 06:59 18:59 Intake Total 480 / 480 930 / 930 Output Total 700 / 700 Balance 480 / 480 230 / 230 Weight 82.3 kg Intake: IV 100 / 100 100 / 100 Maxipime Inj 2,000 MG In NS Inj 100 / 100 100 / 100 100 ML @ 200 mls/hr IV.SIG Q12H DEMETRA Rx#:[id number] Oral 380 / 380 830 / 830 Output: Urine 700 / 700 Other: # Voids 3 1 Date of Last Bowel Movement 01/11/18 # Bowel Movements 1 0 Physical Exam: CONSTITUTIONAL/GENERAL: This is an elderly, chronically ill looking patient in no apparent distress. TUBES/LINES/DRAINS: NC; PIV SKIN: Pale, No jaundice, or lesions. Ecchymoses on upper extremities. No wounds seen anteriorly. Skin temperature appropriate. Not diaphoretic. EYES: Pupils equal and round and reactive. Extraocular motions intact. No scleral icterus. No injection or drainage. Fundi not examined. ENT: Hearing grossly normal. Nose without bleeding or purulent drainage. Moist oral mucosa CARDIOVASCULAR: irregular rate and rhythm without murmurs, gallops, or rubs. No JVD. Edema noted to BLE. RESPIRATORY/CHEST: Symmetric, mildly labored respirations. diminished in the bases. No wheezes, rales, or rhonchi. GASTROINTESTINAL: Abdomen soft, non-tender, distended. No guarding. Hypoactive bowel sounds. MUSCULOSKELETAL: Extremities without clubbing, cyanosis, or edema. No calf tenderness. No mottling or clubbing. NEUROLOGICAL: Awake and alert, oriented to self, place and situation. Follows commands. Moves all extremities weakly PSYCHIATRIC: No obvious anxiety/depression. no apparent hallucinations or other psychotic thought process. Diagnostic Tests Laboratory: Laboratory Results - last 72 hr 01/13/18 01/13/18 01/14/18 16:42 23:14 04:56 Sodium Potassium Chloride Carbon Dioxide Anion Gap BUN Creatinine Estimated GFR POC Glucose 117 H 153 H 123 H Random Glucose Calcium 01/14/18 01/14/18 01/14/18 05:00 12:39 16:42 Sodium 139 Potassium 3.7 D Chloride 99 Carbon Dioxide 32.8 H Anion Gap 7 BUN 15 Creatinine 0.84 Estimated GFR 67 L POC Glucose 124 H 109 Random Glucose 107 H Calcium 8.4 L 01/14/18 01/15/18 01/15/18 23:59 05:46 09:05 Sodium 140 Potassium 3.2 L Chloride 97 L Carbon Dioxide 36.1 H Anion Gap 7 BUN 10 Creatinine 0.70 Estimated GFR 82 L POC Glucose 110 99 Random Glucose 85 Calcium 8.6 01/15/18 01/15/18 01/15/18 12:24 14:46 16:47 Sodium 138 Potassium 3.1 L Chloride 93 L Carbon Dioxide 38.5 H Anion Gap 7 BUN 9 Creatinine 0.78 Estimated GFR 73 L POC Glucose 123 H 119 H Random Glucose 113 H Calcium 8.8 01/15/18 01/16/18 01/16/18 23:48 05:59 08:41 Sodium Potassium 3.7 Chloride Carbon Dioxide Anion Gap BUN Creatinine Estimated GFR POC Glucose 134 H 113 H Random Glucose Calcium 01/16/18 12:20 Sodium Potassium Chloride Carbon Dioxide Anion Gap BUN Creatinine Estimated GFR POC Glucose 128 H Random Glucose Calcium Result Diagrams: 01/13/18 05:00 01/16/18 08:41 Microbiology: Microbiology 01/11/18 01:45 Aerobic Blood Culture - Final Blood - Peripheral No growth in 5 days Anaerobic Blood Culture - Final No growth in 5 days 01/11/18 01:50 Aerobic Blood Culture - Final Blood - Peripheral No growth in 5 days Anaerobic Blood Culture - Final No growth in 5 days Imaging: Chest X-Ray 01/14/18 00:00 CONCLUSION: 1. Mild interval increase in pulmonary opacities most characteristic of pulmonary edema. 2. Probable small left pleural effusion. Assessment and Plan - Disease Oriented Problem List (1) Acute hypoxemic respiratory failure (2) UTI (urinary tract infection) (3) Diabetes (4) Atrial fibrillation (5) Chronic anticoagulation (6) H/O malignant neoplasm of colon (7) Bone metastases (8) Pulmonary edema (9) Mild protein-energy malnutrition - Symptom Scale (1) Generalized weakness 0-10 Scale: Unable to quantify (2) Shortness of breath 0-10 Scale: Unable to quantify (3) Debility 0-10 Scale: Unable to quantify Pertinent Non-Medical Issues: Psychosocial: Patient was born in [facility]. 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 Patient was very active in community up until she was diagnosed with colon cancer. Patient is . She has 2 adult sons. Spiritual: Patient is Jainism Legal: Never completed advanced directives Ethical issues impacting care: None at this time Important Contacts: Spouse: Janel Marroquin Son: Jose Rafael Marroquin Prognosis: Mrs. Marroquin is a 72 years old female with a past medical history of colon cancer, diabetes mellitus, hypertension, hyperlipidemia, atrial fibrillation status post ablation on Xarelto, hypothyroidism, chronic kidney disease stage III, pulmonary hypertension, CHF and chronic O2 3 L at home, L3 compression fracture , history of GI bleed, depression, recurrent sepsis and TIA 2. Patient had recent CT which showed widespread bony lesions most likely representing metastatic disease and is currently awaiting outpatient PET. Patient presented to the emergency room via EMS on 01/11/18 from [facility] with complaints of shortness of breath and fever. Given ongoing multiple comorbidities patient remains at high risk for further complications, deterioration and decline. Code Status: Full Code Plan: PLAN: Legal decision maker: Patient is alert, oriented to self, place and situation. Patient is able to participate in medical decision making. In the event that patient is incapacitated she verbally stated that she would want her to be his healthcare surrogate, and both her 2 adult sons Jose Rafael and Sid to be alternate healthcare surrogates. Goals: Aggressive. Patient will be discharged back to [facility] today. Discussed advance directives, what they were and how they will be utilized in the event that patient is incapacitated. Patient mentioned that she has not reviewed the paper work but verbally expressed to her son that her would serve as her healthcare surrogate and both sons as alternate HCS. Discussed 5 wishes and patient mentioned that she would not want to be in a vegetative state but she thinks her may not agree with her. Patient`s son explained to patient that she should express her wishes because this concerns her. Patient will review 5 wishes and complete in the future. Expressed concern that patient will probably be faced with complications in the future given her multiple comorbidities and multiple hospitalizations. Encouraged patient and family to continue discussing patient`s wishes while she is able to participate and express her wishes. CODE STATUS: Full code SYMPTOMS: * Shortness of breath: Patient is history of diastolic heart failure and is on chronic home oxygen. Patient came in with complaints of shortness of breath and edema bilateral lower extremity. Lasix administered in ER. Patient 2 L nasal cannula. Chest x-ray showing pulmonary edema. * Generalized weakness: Patient has had multiple hospitalizations. Patient complaining of feeling weak. PT consulted * Debility:Progressive. Patient has had multiple hospitalizations and was still at rehab after last hospitalization. Patient states that she is only able to walk very slowly short distances with a rolling walker. PT consulted, recommended PT at rehabilitation. Palliative care will continue to follow the patient during hospital course as condition evolves, to assist patient/decision-maker with understanding of their medical conditions, weighing benefits/burdens of treatment options, for clarification of goals of treatment. Additionally will assist with any symptoms of palliative concern. Attestation Attestation: To help prompt me to consider important information that might be impacting today's encounter and assessment, information from prior notes written by myself or my colleagues may have been "brought forward" into today's note. My signature on this note, however, is an attestation that I personally performed the exam, history, and/or decision-making noted today, and, unless otherwise indicated, the interactions with patient, family, and staff as well as the review of records all occurred today. I also attest that the listed assessment and stated plan reflect my best clinical judgment today based on the combination of historical information, prior notes, and today's exam/ interactions. When time spent is documented, it refers only to time spent today by the signer, or if indicated, combined time spent today by collaborating physician/nurse practitioner.
[2018-01-16 13:40] VITALS: BP 125/67; TEMP 97.7; O2SAT 96
[2018-01-16 15:52] VITALS: PULSE 91
== END 2018-01-16 15:00 ==
LOC: NEPE 01:28 → NEDA 03:11 → NEDH 07:52 → N04 17:02
PROVIDERS: ADMIT Internal Medicine; ATTEND Internal Medicine

== ENCOUNTER 2018-02-11 14:34 | Inpatient (IN) ==
--- NOTE | 2018-02-11 15:21 | XR ---
EXAM DATE: 02/11/2018 3:13 PM EDT AGE/SEX: 72 years / Female INDICATIONS: Short of breath, congestion, fell today CLINICAL DATA: This is the patient's initial encounter. Patient reports that signs and symptoms have been present for 1 day and indicates a pain score of Nonresponsive. MEDICAL/SURGICAL HISTORY: Non-responsive. Non-responsive. COMPARISON: C, CHEST 1V SINGLE AP, 01/14/2018. . FINDINGS: Right chest port catheter is stable in good position. There is diffuse infiltrate present bilaterally , most confluent in the left lung base with associated pleural effusion. Accounting for rotation, car diac contours are grossly stable. CONCLUSION: Left base consolidation and diffuse infiltrate elsewhere. Electronically signed by: Jose Wright MD 02/11/2018 3:20 PM EDT
--- NOTE | 2018-02-11 15:26 | ED ---
HPI General Chief Complaint: Fall Stated Complaint: Evac/Fall Time Seen by Provider: 02/11/18 14:55 Source: patient History of Present Illness HPI Narrative: 72 y/o patient presents after fall with injuries to head and left hip. She denies any preceding symptoms such as lightheadness or dizziness. Per patient, she has severe neuropathy and is normally wheelchair bound, but attempted to walk and fell in her kitchen after losing balance. She denies any loss of consciousness or confusion following the episode. She currently complains of pain localized to left hip, rated at 10/10 on pain scale. Her daughter gave her 2 tramadol after fall with minimal pain relief. She denies any fever, chills, chest pain, SOB or any other symptoms. MD complaint: fall Related Data Home Medications Medication Instructions Recorded Confirmed Lactobacillus acidoph-L.bulgar 1 tab PO BID 01/11/18 02/11/18 [Lactinex] amiodarone 100 mg PO DAILY 01/11/18 02/11/18 aspirin [Aspirin Low Dose] 81 mg PO DAILY 01/11/18 02/11/18 diltiazem HCl 240 mg PO DAILY 01/11/18 02/11/18 furosemide 40 mg PO DAILY 01/11/18 02/11/18 gabapentin 800 mg PO TID 01/11/18 02/11/18 insulin detemir U-100 [Levemir 6 unit SUB-Q QPM 01/11/18 02/11/18 U-100 Insulin] levothyroxine 50 mcg PO DAILY 01/11/18 02/11/18 oxybutynin chloride 5 mg PO TID 01/11/18 02/11/18 potassium chloride 20 meq PO DAILY 01/11/18 02/11/18 pravastatin 40 mg PO DAILY 01/11/18 02/11/18 rivaroxaban [Xarelto] 20 mg PO DAILY 01/11/18 02/11/18 venlafaxine 75 mg PO DAILY 01/11/18 02/11/18 Previous Rx's Medication Instructions Recorded metoprolol tartrate 50 mg PO DAILY #0 tab 01/16/18 tramadol 50 mg PO Q6H PRN #8 tab 01/16/18 Allergies Allergy/AdvReac Type Severity Reaction Status Date / Time codeine Allergy Severe Nausea/Vomi Verified 02/11/18 15:02 ting Sulfa (Sulfonamide Allergy Severe Anaphylaxis Verified 02/11/18 15:02 Antibiotics) METAL Allergy Intermediate hives Uncoded 02/11/18 15:02 SURGICAL STEEL Allergy Intermediate hives Uncoded 02/11/18 15:02 Review of Systems ROS: all other systems reviewed are negative [facility] Medical History Medical History Port-A-Cath in place (Acute) Diastolic heart failure (Acute) Secondary malignant neoplasm (Acute) UTI (urinary tract infection) (Acute) Pneumonia (Acute) Sepsis (Acute) Insomnia (Acute) Depression (Acute) Weakness (Acute) Overactive bladder (Acute) Hypertension (Acute) Neuropathy (Acute) Hyperlipemia (Acute) A-fib (Acute) Diabetes (Acute) CHF (congestive heart failure) (Acute) Hypothyroidism (Acute) Surgical History Surgical History H/O hernia repair (Acute) H/O esophagogastroduodenoscopy (Acute) History of colonoscopy (Acute) Hx of section (Acute) Hx of appendectomy (Acute) S/P ablation of atrial fibrillation (Acute) H/O colectomy (Acute) Family History Family History Father Alcoholism Mother Breast cancer Dementia Social History Social History Substance History: No History of Abuse Second Hand Smoke Exposure: No Smoking Status: Never smoker Number of Pack-Years (if former smoker): 10 Smoking End Date: 2009 How Often Do You Have a Drink Containing Alcohol: Never Recent Travel in [facility] within the Last 8 Weeks: No Recent Out of Country Travel within the Last 8 Weeks: No Immunization History Tetanus Immunization: Unsure Hx Influenza Vaccine This Season: No Exam Const General: healthy appearing, well developed and lethargic Nutritional Appearance: overweight Orientation: awake and oriented x3 Resp Effort & Inspection: normal respiratory effort and able to speak in complete sentences Auscultation: clear to auscultation bilaterally Extrem Right lower extremity: edema Left lower extremity: edema and hip/thigh Details: abnormal to inspection, tenderness and abnormal ROM Course Initial Documented Vital Signs Pulse Oximetry 96 02/11/18 14:55 Last Documented Vital Signs Temperature 98.4 F 02/11/18 14:59 Pulse Rate 75 02/11/18 17:02 Respiratory Rate 19 02/11/18 17:02 Blood Pressure 148/57 H 02/11/18 17:02 Pulse Oximetry 95 08/21/18 17:02 Medical Decision Making MDM Narrative Medical decision making narrative: X-rays show a left humeral neck fracture. CT the brain did not show any signs of acute intracranial injuries. Case was discussed with Dr. Turcios who states that the patient will need medical admission with n.p.o. after midnight, needs further surgical treatment. However , patient is on Pradaxa, and is not able to get surgery today as well because of it. Case was discussed with hospitalist service for admission. Medical Screen Exam Complete: Yes Emergency Medical Condition: Yes Differential Diagnosis Differential Diagnosis: Hip fracture versus dislocation, rule out electrolyte abnormalities versus dehydration versus intracranial injuries Lab Data Lab results reviewed: Yes I reviewed the patient's lab results. Result diagrams: 02/11/18 15:10 02/11/18 15:10 Lab Results 02/11/18 02/11/18 02/11/18 Range/Units 15:10 15:10 15:10 WBC 6.9 (4.0-11.0) th/mm3 RBC 3.65 L (4.00-5.30) mil/mm3 Hgb 8.7 L (11.6-15.3) gm/dL Hct 28.0 L (35.0-46.0) % MCV 76.7 L (80.0-100.0) fL MCH 23.8 L (27.0-34.0) pg MCHC 31.0 L (32.0-36.0) % RDW 18.0 H (11.6-17.2) % Plt Count 250 (150-450) th/mm3 MPV 8.2 (7.0-11.0) fL Neut % (Auto) 71.5 H (16.0-70.0) % Lymph % (Auto) 11.5 (9.0-44.0) % Coles % (Auto) 8.4 H (0.0-8.0) % Eos % (Auto) 7.8 H (0.0-4.0) % Baso % (Auto) 0.8 (0.0-2.0) % Neut # (Auto) 4.9 (1.8-7.7) th/mm3 Lymph # (Auto) 0.8 L (1.0-4.8) th/mm3 Coles # (Auto) 0.6 (0.0-0.9) th/mm3 Eos # (Auto) 0.5 H (0.0-0.4) th/mm3 Baso # (Auto) 0.1 (0.0-0.2) th/mm3 WBC Differential . Differential Comment Auto diff final PT 14.9 H (9.8-11.6) sec INR 1.5 Ratio APTT 30.3 H (24.3-30.1) sec Sodium 134 L (136-145) meq/L Potassium 4.0 (3.5-5.1) meq/L Chloride 98 (98-107) meq/L Carbon Dioxide 27.2 (21.0-32.0) meq/L Anion Gap 9 (5-15) meq/L BUN 22 H (7-18) mg/dL Creatinine 1.15 H (0.50-1.00) mg/dL Estimated GFR 47 L (>89) mL/min Random Glucose 89 (74-106) mg/dL Calcium 8.3 L (8.5-10.1) mg/dL Total Bilirubin 0.4 (0.2-1.0) mg/dL AST 27 (15-37) U/L ALT 13 (10-53) U/L Alkaline Phosphatase 157 H (45-117) U/L Troponin I 0.02 (0.02-0.05) ng/mL Total Protein 7.8 (6.4-8.2) g/dL Albumin 2.9 L (3.4-5.0) g/dL Urine Color (Yellw/Straw) Urine Clarity (Clear) Urine pH (5.0-8.5) Ur Specific Bynum (1.002-1.035) Urine Protein (Neg-Trace) mg/dL Urine Glucose (UA) (Negative) mg/dL Urine Ketones (Negative) mg/dL Urine Occult Blood (Negative) Urine Nitrate (Negative) Urine Bilirubin (Negative) Urine Urobilinogen (Less than 2) mg/dL Ur Leukocyte Esterase (Negative) Urine RBC (0-3) /hpf Urine WBC (0-5) /hpf Ur Squamous Epith Cells (0-5) /hpf Urine Bacteria (None) /hpf Urine Mucus (Occasional) /lpf Micro UA Comment Urine Culture Comments 02/11/18 Range/Units 15:10 WBC (4.0-11.0) th/mm3 RBC (4.00-5.30) mil/mm3 Hgb (11.6-15.3) gm/dL Hct (35.0-46.0) % MCV (80.0-100.0) fL MCH (27.0-34.0) pg MCHC (32.0-36.0) % RDW (11.6-17.2) % Plt Count (150-450) th/mm3 MPV (7.0-11.0) fL Neut % (Auto) (16.0-70.0) % Lymph % (Auto) (9.0-44.0) % Coles % (Auto) (0.0-8.0) % Eos % (Auto) (0.0-4.0) % Baso % (Auto) (0.0-2.0) % Neut # (Auto) (1.8-7.7) th/mm3 Lymph # (Auto) (1.0-4.8) th/mm3 Coles # (Auto) (0.0-0.9) th/mm3 Eos # (Auto) (0.0-0.4) th/mm3 Baso # (Auto) (0.0-0.2) th/mm3 WBC Differential Differential Comment PT (9.8-11.6) sec INR Ratio APTT (24.3-30.1) sec Sodium (136-145) meq/L Potassium (3.5-5.1) meq/L Chloride (98-107) meq/L Carbon Dioxide (21.0-32.0) meq/L Anion Gap (5-15) meq/L BUN (7-18) mg/dL Creatinine (0.50-1.00) mg/dL Estimated GFR (>89) mL/min Random Glucose (74-106) mg/dL Calcium (8.5-10.1) mg/dL Total Bilirubin (0.2-1.0) mg/dL AST (15-37) U/L ALT (10-53) U/L Alkaline Phosphatase (45-117) U/L Troponin I (0.02-0.05) ng/mL Total Protein (6.4-8.2) g/dL Albumin (3.4-5.0) g/dL Urine Color Straw (Yellw/Straw) Urine Clarity Clear (Clear) Urine pH 6.0 (5.0-8.5) Ur Specific Bynum 1.006 (1.002-1.035) Urine Protein Negative (Neg-Trace) mg/dL Urine Glucose (UA) Negative (Negative) mg/dL Urine Ketones Negative (Negative) mg/dL Urine Occult Blood Negative (Negative) Urine Nitrate Negative (Negative) Urine Bilirubin Negative (Negative) Urine Urobilinogen Less than 2 (Less than 2) mg/dL Ur Leukocyte Esterase Trace H (Negative) Urine RBC 1 (0-3) /hpf Urine WBC 4 (0-5) /hpf Ur Squamous Epith Cells <1 (0-5) /hpf Urine Bacteria Rare H (None) /hpf Urine Mucus Few H (Occasional) /lpf Micro UA Comment Culture not ind Urine Culture Comments Culture not ind Imaging Data Attestation: I personally reviewed and interpreted this imaging study as follows : Radiologist's impression: Chest X-Ray 02/11/18 14:55 CONCLUSION: Left base consolidation and diffuse infiltrate elsewhere. Hip X-Ray 02/11/18 15:04 CONCLUSION: 1. Left femoral neck fracture, possible left inferior pubic ramus and symphysis pubic fractures. 2. Significant osteopenia with punctate lucencies mixed lytic sclerotic lesions highly suspicious for metastatic disease or multiple myeloma. Head CT 02/11/18 15:11 CONCLUSION: Slight chronic small vessel ischemic and atrophic changes. Discharge Plan Discharge Disposition Patient Disposition: 30 Still Patient Discharge Condition Condition: Stable Discharge Details Anticipated Discharge Date: 02/11/18 Diagnosis: Closed hip fracture Physicians Team ED Provider: Redd Figueroa Primary Care Provider: Sheldon Dumont Attending Provider: Alicia Dill Discharge Interventions Interventions: Vital Signs Last Done: 02/11/18 17:02 Status ED Status: Admitted Patient
[2018-02-11 15:37] LABS: Baso # (Auto) 0.1 th/mm3 (0.0-0.2); Baso % (Auto) 0.8 % (0.0-2.0); Eos # (Auto) 0.5 th/mm3 (0.0-0.4); Eos % (Auto) 7.8 % (0.0-4.0); Hemoglobin 8.7 gm/dL (11.6-15.3); Lymph # (Auto) 0.8 th/mm3 (1.0-4.8); Lymph % (Auto) 11.5 % (9.0-44.0); Mean Corpuscular Hemoglobin 23.8 pg (27.0-34.0); Mean Corpuscular Volume 76.7 fL (80.0-100.0); Mean Platelet Volume 8.2 fL (7.0-11.0); Mono # (Auto) 0.6 th/mm3 (0.0-0.9); Mono % (Auto) 8.4 % (0.0-8.0); Neut # (Auto) 4.9 th/mm3 (1.8-7.7); Neut % (Auto) 71.5 % (16.0-70.0); Platelet Count 250 th/mm3 (150-450); Red Blood Count 3.65 mil/mm3 (4.00-5.30); White Blood Count 6.9 th/mm3 (4.0-11.0)
[2018-02-11 15:46] LABS: Activated Partial Thrombo Time 30.3 sec (24.3-30.1); INR 1.5 Ratio; Prothrombin Time 14.9 sec (9.8-11.6)
[2018-02-11 15:52] LABS: Bacteria,Urine Rare /hpf; Bilirubin,Urine Negative (Negative); Clarity,Urine Clear (Clear); Color,Urine Straw (Yellw/Straw); Glucose,Urine (UA) Negative (Negative); Leukocyte Esterase,Urine Trace (Negative); Mucus,Urine Few /lpf (Occasional); Nitrite,Urine Negative (Negative); Specific Gravity,Urine 1.006 (1.002-1.035); Squamous Epithelial Cell,Urine <1 /hpf (0-5)
[2018-02-11 16:01] LABS: Alanine Aminotransferase 13 U/L (10-53); Albumin 2.9 g/dL (3.4-5.0); Anion Gap 9 meq/L (5-15); Aspartate Aminotransferase 27 U/L (15-37); Blood Urea Nitrogen 22 mg/dL (7-18); Calcium 8.3 mg/dL (8.5-10.1); Carbon Dioxide 27.2 meq/L (21.0-32.0); Chloride 98 meq/L (98-107); Glomerular Filtration Rate 47 mL/min (>89); Glucose,Random 89 mg/dL (74-106); Sodium 134 meq/L (136-145)
[2018-02-11 16:05] LABS: Alkaline Phosphatase 157 U/L (45-117); Total Protein 7.8 g/dL (6.4-8.2); Troponin I 0.02 ng/mL (0.02-0.05)
--- NOTE | 2018-02-11 16:14 | CT ---
EXAM DATE: 02/11/2018 4:07 PM EDT AGE/SEX: 72 years / Female INDICATIONS: Trauma, fall from wheelchair. CLINICAL DATA: This is the patient's initial encounter. Patient reports that signs and symptoms have been present for 1 day and indicates a pain score of 4/10. MEDICAL/SURGICAL HISTORY: Cardiovascular disease. Diabetes. Hypertension. Appendectomy. Cholecys tectomy. RADIATION DOSE: 35.03 CTDI (mGy) COMPARISON: [facility] [place], CT BRAIN W/O CONTRAST, 11/06/2017. . TECHNIQUE: CT of the head without contrast. Using automated exposure control and adjustment of the mA and/or kV according to patient size, radiation dose was kept as low as reasonably achievable to ob tain optimal diagnostic quality images. DICOM format image data is available electronically for revi ew and comparison. FINDINGS: There is no evidence for intracranial hemorrhage, mass effect, mass lesions, or edema. The visualize d bony structures appear intact. Slight degree of brain atrophy is seen. Slight periventricular whit e matter changes are seen nonspecific mostly consistent with chronic small vessel ischemic changes. There are no signs of acute infarction for technique. Lacunar infarction in right frontoparietal junc tion not significantly changed. CONCLUSION: Slight chronic small vessel ischemic and atrophic changes. Electronically signed by: Ramona Turner MD 02/11/2018 4:13 PM EDT
--- NOTE | 2018-02-11 16:38 | XR ---
EXAM DATE: 02/11/2018 3:40 PM EDT AGE/SEX: 72 years / Female INDICATIONS: Left hip pain, fell today. CLINICAL DATA: This is the patient's initial encounter. Patient reports that signs and symptoms have been present for 1 day and indicates a pain score of 10/10. MEDICAL/SURGICAL HISTORY: Hypothyroidism. TIA, cerebral hemorrhage, a-fib, chemotherapy, colon cancer Appendectomy. colon resection, hernia repair COMPARISON: No prior exams available for comparison. FINDINGS: There is a complete left femoral neck fracture and the bony structures appear osteopenic. There may b e a subtle fracture of the left symphysis pubis and possibly inferior pubic ramus. Bony structures de monstrate osteopenia with multiple punctate lucencies and mixed chronic areas highly suspicious for m etastatic disease and/or myeloma. CONCLUSION: 1. Left femoral neck fracture, possible left inferior pubic ramus and symphysis pubic fractures. 2. Significant osteopenia with punctate lucencies mixed lytic sclerotic lesions highly suspicious fo r metastatic disease or multiple myeloma. Electronically signed by: Ramona Turner MD 02/11/2018 4:36 PM EDT
[2018-02-11] MEDS ORDERED: Morphine Sulfate Inj 2 MG/ML Vial IV.PUSH ONE (16:59)
[2018-02-11] MEDS ORDERED: Bisacodyl 10 MG Supp RECTAL PRN ×2 (17:16→17:18)
[2018-02-11] MEDS ORDERED: Acetaminophen 325 MG Tablet PO PRN ×2 (17:18→19:19)
[2018-02-11] MEDS ORDERED: Morphine Inj 4 MG/ML Vial IV.PUSH PRN ×2 (17:37→19:19)
--- NOTE | 2018-02-11 18:05 | P.HPFP ---
History of Present Illness Primary Care Physician: Sheldon Dumont MD, R3 History of Present Illness: 72-year-old female, history of diabetes, recent hospitalization for pneumonia and severe sepsis, colon cancer with likely bone metastases, chronic anemia, CHF , hypertension, neuropathy, atrial fibrillation, hypothyroidism, presents with displaced left femoral neck fracture and leg erythema. She fell sometime between 12:00pm and 1:00pm. Pt states she was in the wheelchair and wheeled herself into the kitchen, got a hotdog out of the fridge and briefly start out of her wheelchair, and she tried to get back in her wheelchair and fell down. She states she hit the left side of her face first, and she hit her left hip and her left knee. She did not lose consciousness and she states that she thinks she was down for about 45 minutes until another family member walked in at 1 PM. Her teeth hurt briefly, however her head never hurt. She did not experience any blurry vision. Her left hip and left knee continue to hurt at this time. She did not have any chest pain or shortness of breath at the time of the event and she is continued to be able to move all extremities. The [id number] who walked in at 1 PM is present, and states that when she walked in the woman was lying on the floor on the left side and awake. No other remarks. Son is here and complaints patient has "no balance whatsoever" and that is why it is very easy for her to fall. She has been overall sick for 3 months and the son feels like she has been in this hospital for almost 4 months straight and it has seemed to affect her mental capacity. On ROS the son states that she has had bilateral lower leg erythema and leg swelling 2 weeks, and the home health nurse has been trying to diagnose her. No fever/chills. - Diagnosis (1) Closed hip fracture (2) Cellulitis (3) Lung consolidation (4) Elevated serum creatinine (5) Bone metastases (6) Chronic anemia (7) CHF (congestive heart failure) (8) Hypertension (9) Neuropathy (10) A-fib (11) Diabetes (12) Hypothyroidism (13) Nutrition, metabolism, and development symptoms Inpatient Certification: I certify that the inpatient services were ordered in accordance with Medicare regulations governing the order. This includes certification that hospital inpatient services are reasonable and necessary and in the case of services not specified as inpatient-only under 42 CFR 419.22(n), that they are appropriately provided as inpatient services in accordance to with the 2-midnight benchmark under 43 CFR 412.3(e) Estimated Total Length of Stay (Days): 3 Plans for Post Hospital Care: SNF Review of Systems Constitutional: Reports chills (possible chills in last 2 weeks?), Denies fever( s), Denies headache(s) Eyes: Denies blurry vision Ears, Nose, Mouth, and Throat: Denies difficulty swallowing, Denies headache(s) , Denies mouth lesions, Denies sinus pain, Denies throat swelling Cardiovascular: Denies chest pain, Denies chest pain at rest Respiratory: Denies chest congestion, Denies cough Gastrointestinal: Denies abdominal pain Skin/Breast: Denies acne Neurologic: Denies abnormal hearing Psychiatric: Denies abnormal sleep pattern Endocrine: Denies excessive sweating Hematologic/Lymphatic: Reports easy bruising PMFSH - History History Provided By: Patient, [employer] / EMT - Medical History Medical History: Medical History (Last Updated 02/11/18 @ 18:39 by Rosalba Mac MD, R2) Chronic anemia (Acute) CHF (congestive heart failure) (Acute) Port-A-Cath in place (Acute) Diastolic heart failure (Acute) Secondary malignant neoplasm (Acute) UTI (urinary tract infection) (Acute) Pneumonia (Acute) Sepsis (Acute) Insomnia (Acute) Depression (Acute) Weakness (Acute) Overactive bladder (Acute) Hypertension (Acute) Neuropathy (Acute) Hyperlipemia (Acute) A-fib (Acute) Diabetes (Acute) Hypothyroidism (Acute) Diabetes CHF (congestive heart failure) - Surgical History Surgical History: Surgical History (Last Reviewed 02/11/18 @ 18:39 by Rosalba Mac MD, R2) H/O hernia repair (Acute) H/O esophagogastroduodenoscopy (Acute) History of colonoscopy (Acute) Hx of section (Acute) Hx of appendectomy (Acute) S/P ablation of atrial fibrillation (Acute) H/O colectomy (Acute) - Family History Family History: Family History (Last Reviewed 02/11/18 @ 19:02 by Erasmo Dyson MD) Father Alcoholism Mother Breast cancer Dementia - Tobacco History Second Hand Smoke Exposure: No Tobacco Use In Past 30 Days: No Smoking Status: Never smoker Number of Pack Years (if former smoker): 10 Smoking End Date: 2009 - Alcohol History How Often Do You Have a Drink Containing Alcohol: Never - Substance Use History Substance History: No History of Abuse - Travel History History of Recent Travel: No Recent Travel in the [place] Within the Last 8 Weeks: No Recent Travel Out of the Country Within the Last 8 Weeks: No - Immunization History Tetanus Immunization: Unsure Hx Influenza Vaccine This Season: No Medications and Allergies Active Medications: Active Medications Acetaminophen (Tylenol) 650 mg PO Q4H PRN PRN Reason: Temp > 100.4 Al Hydroxide/Mg Hydroxide (Milk Of Magnesia Liq) 30 ml PO DAILY PRN PRN Reason: SEVERE CONSITIPATION Bisacodyl (Dulcolax Supp) 10 mg RECTAL DAILY PRN PRN Reason: SEVERE CONSITIPATION Furosemide (Lasix) 40 mg PO DAILY [facility] Sodium Chloride (Ns Inj) 1,000 mls @ 75 mls/hr IV.CONT .[id number] DEMETRA Lactulose (Lactulose Liq) 30 ml PO DAILY PRN PRN Reason: SEVERE CONSITIPATION Metoprolol Tartrate (Lopressor) 50 mg PO DAILY [facility] Morphine Sulfate (Morphine Inj) 2 mg IV.PUSH Q4H PRN PRN Reason: PAIN SCALE 6 TO 10 Non-Formulary Medication (Amiodarone [Amiodarone]) 100 mg PO DAILY [facility] Non-Formulary Medication (Diltiazem Hcl [Diltiazem Hcl]) 240 mg PO DAILY [facility] Non-Formulary Medication (Levothyroxine [Levothyroxine]) 50 mcg PO DAILY [facility] Non-Formulary Medication (Potassium Chloride [Potassium Chloride]) 20 meq PO DAILY [facility] Non-Formulary Medication (Gabapentin [Gabapentin]) 800 mg PO TID [facility] Ondansetron HCl (Zofran Inj) 4 mg IV.PUSH Q6H PRN PRN Reason: NAUSEA Oxybutynin Chloride (Ditropan) 5 mg PO TID [facility] Pravastatin Sodium (Pravachol) 40 mg PO DAILY [facility] Senna/Docusate Sodium (Elsa-Colace) 1 tab PO BID [facility] Sennosides (Senokot) 17.2 mg PO Q12H PRN PRN Reason: Moderate Constipation Tramadol HCl (Ultram) 50 mg PO Q6H PRN PRN Reason: acute pain Allergies Allergy/AdvReac Type Severity Reaction Status Date / Time codeine Allergy Severe Nausea/Vomi Verified 02/11/18 15:02 ting Sulfa (Sulfonamide Allergy Severe Anaphylaxis Verified 02/11/18 15:02 Antibiotics) METAL Allergy Intermediate hives Uncoded 02/11/18 15:02 SURGICAL STEEL Allergy Intermediate hives Uncoded 02/11/18 15:02 Home Medications Medication Instructions Recorded Confirmed Type Lactobacillus acidoph-L.bulgar 1 tab PO BID 01/11/18 02/11/18 History [Lactinex] amiodarone 100 mg PO DAILY 01/11/18 02/11/18 History aspirin [Aspirin Low Dose] 81 mg PO DAILY 01/11/18 02/11/18 History diltiazem HCl 240 mg PO DAILY 01/11/18 02/11/18 History furosemide 40 mg PO DAILY 01/11/18 02/11/18 History gabapentin 800 mg PO TID 01/11/18 02/11/18 History insulin detemir U-100 [Levemir 6 unit SUB-Q QPM 01/11/18 02/11/18 History U-100 Insulin] levothyroxine 50 mcg PO DAILY 01/11/18 02/11/18 History oxybutynin chloride 5 mg PO TID 01/11/18 02/11/18 History potassium chloride 20 meq PO DAILY 01/11/18 02/11/18 History pravastatin 40 mg PO DAILY 01/11/18 02/11/18 History rivaroxaban [Xarelto] 20 mg PO DAILY 01/11/18 02/11/18 History venlafaxine 75 mg PO DAILY 01/11/18 02/11/18 History Exam Vital signs: Vital Signs 02/11/18 14:55 02/11/18 14:59 02/11/18 15:41 Temperature 98.4 F Pulse Rate 67 68 Respiratory Rate 20 Blood Pressure 83/41 L 114/68 Pulse Oximetry 96 68 L 02/11/18 15:46 02/11/18 17:02 Temperature Pulse Rate 75 Respiratory Rate 19 Blood Pressure 148/57 H Pulse Oximetry 96 95 Intake & Output 02/10/18 02/11/18 02/11/18 18:59 06:59 18:59 Output Total 900 / 900 Balance -900 / -900 Weight 95.254 kg Output: Urine 900 / 900 - Constitutional no acute distress - Routine Respiratory Exam Present: crackles Comments: crackles heard on auscultation anteriorly, equal throughout - Routine Cardiovascular Exam Present: RRR, murmur (Harsh 4 out of 6 systolic murmur) - Routine Abdominal Exam Present: soft, normoactive bowel sounds. Absent: tenderness, distended - Routine Extremities Exam Present: edema (2+ pitting edema of lower legs bilaterally; from foot to just below knee), full ROM, pulses intact, tenderness (Exquisite tenderness of both legs bilaterally) - Routine Neurological Exam Present: alert, oriented X3, normal reflexes, moving all extremities. Absent: motor deficit Results - Labs Result diagrams: 02/11/18 15:10 02/11/18 15:10 Abnormal lab results 02/11/18 02/11/18 02/11/18 Range/Units 15:10 15:10 15:10 RBC 3.65 L (4.00-5.30) mil/mm3 Hgb 8.7 L (11.6-15.3) gm/dL Hct 28.0 L (35.0-46.0) % MCV 76.7 L (80.0-100.0) fL MCH 23.8 L (27.0-34.0) pg MCHC 31.0 L (32.0-36.0) % RDW 18.0 H (11.6-17.2) % Neut % (Auto) 71.5 H (16.0-70.0) % [place] % (Auto) 8.4 H (0.0-8.0) % Eos % (Auto) 7.8 H (0.0-4.0) % Lymph # (Auto) 0.8 L (1.0-4.8) th/mm3 Eos # (Auto) 0.5 H (0.0-0.4) th/mm3 PT 14.9 H (9.8-11.6) sec APTT 30.3 H (24.3-30.1) sec Sodium 134 L (136-145) meq/L BUN 22 H (7-18) mg/dL Creatinine 1.15 H (0.50-1.00) mg/dL Estimated GFR 47 L (>89) mL/min Calcium 8.3 L (8.5-10.1) mg/dL Alkaline Phosphatase 157 H (45-117) U/L B-Natriuretic Peptide (0-100) pg/mL Albumin 2.9 L (3.4-5.0) g/dL Ur Leukocyte Esterase (Negative) Urine Bacteria (None) /hpf Urine Mucus (Occasional) /lpf 02/11/18 02/11/18 Range/Units 15:10 15:10 RBC (4.00-5.30) mil/mm3 Hgb (11.6-15.3) gm/dL Hct (35.0-46.0) % MCV (80.0-100.0) fL MCH (27.0-34.0) pg MCHC (32.0-36.0) % RDW (11.6-17.2) % Neut % (Auto) (16.0-70.0) % [place] % (Auto) (0.0-8.0) % Eos % (Auto) (0.0-4.0) % Lymph # (Auto) (1.0-4.8) th/mm3 Eos # (Auto) (0.0-0.4) th/mm3 PT (9.8-11.6) sec APTT (24.3-30.1) sec Sodium (136-145) meq/L BUN (7-18) mg/dL Creatinine (0.50-1.00) mg/dL Estimated GFR (>89) mL/min Calcium (8.5-10.1) mg/dL Alkaline Phosphatase (45-117) U/L B-Natriuretic Peptide 302 H (0-100) pg/mL Albumin (3.4-5.0) g/dL Ur Leukocyte Esterase Trace H (Negative) Urine Bacteria Rare H (None) /hpf Urine Mucus Few H (Occasional) /lpf Short CBC 02/11/18 Range/Units 15:10 WBC 6.9 (4.0-11.0) th/mm3 Hgb 8.7 L (11.6-15.3) gm/dL Hct 28.0 L (35.0-46.0) % Plt Count 250 (150-450) th/mm3 BMP 02/11/18 15:10 Sodium 134 L Potassium 4.0 Chloride 98 Carbon Dioxide 27.2 BUN 22 H Creatinine 1.15 H Calcium 8.3 L Cardiac Enzymes 02/11/18 Range/Units 15:10 Troponin I 0.02 (0.02-0.05) ng/mL Liver Function 02/11/18 Range/Units 15:10 Total Bilirubin 0.4 (0.2-1.0) mg/dL AST 27 (15-37) U/L ALT 13 (10-53) U/L Alkaline Phosphatase 157 H (45-117) U/L Albumin 2.9 L (3.4-5.0) g/dL Urine 02/11/18 Range/Units 15:10 Urine Color Straw (Yellw/Straw) Urine Clarity Clear (Clear) Urine pH 6.0 (5.0-8.5) Ur Specific [place] 1.006 (1.002-1.035) Urine Protein Negative (Neg-Trace) mg/dL Urine Glucose (UA) Negative (Negative) mg/dL - Imaging Impressions Chest X-Ray 02/11/18 14:55 CONCLUSION: Left base consolidation and diffuse infiltrate elsewhere. Hip X-Ray 02/11/18 15:04 CONCLUSION: 1. Left femoral neck fracture, possible left inferior pubic ramus and symphysis pubic fractures. 2. Significant osteopenia with punctate lucencies mixed lytic sclerotic lesions highly suspicious for metastatic disease or multiple myeloma. Head CT 02/11/18 15:11 CONCLUSION: Slight chronic small vessel ischemic and atrophic changes. Caprini VTE Risk Assessment Caprini VTE Risk Assessment: No/Low Risk (score <= 1) Caprini Risk Assessment Model: Point Value = 1 Point Value = 2 Point Value = 3 Point Value = 5 Age 41-60 Minor surgery BMI > 25 kg/m2 Swollen legs Varicose veins or History of unexplained or recurrent spontaneous Oral contraceptives or hormone replacement Sepsis (< 1 month) Serious lung disease, including pneumonia (< 1 month) Abnormal pulmonary function Acute myocardial infarction Congestive heart failure (< 1 month) History of inflammatory bowel disease Medical patient at bed rest Age 61-74 Arthroscopic surgery Major open surgery (> 45 min) Laparoscopic surgery (> 45 min) Malignancy Confined to bed (> 72 hours) Immobilizing plaster cast Central venous access Age >= 75 History of VTE Family history of VTE Factor V Leiden Prothrombin [id number] Lupus anticoagulant Anticardiolipin antibodies Elevated serum homocysteine Heparin-induced thrombocytopenia Other congenital or acquired thrombophilia Stroke (< 1 month) Elective arthroplasty Hip, pelvis, or leg fracture Acute spinal cord injury (< 1 month) Prophylaxis Regimen: Total Risk Factor Score Risk Level Prophylaxis Regimen 0-1 Low Early ambulation 2 Moderate Order ONE of the following: *Sequential Compression Device (SCD) *Heparin 5000 units SQ BID 3-4 Higher Order ONE of the following medications: *Heparin 5000 units SQ TID *Enoxaparin/Lovenox 40 mg SQ daily (WT < 150 kg, CrCl > 30 mL/min) *Enoxaparin/Lovenox 30 mg SQ daily (WT < 150 kg, CrCl > 10-29 mL/min) *Enoxaparin/Lovenox 30 mg SQ BID (WT < 150 kg, CrCl > 30 mL/min) AND/OR *Sequential Compression Device (SCD) 5 or more Highest Order ONE of the following medications: *Heparin 5000 units SQ TID (Preferred with Epidurals) *Enoxaparin/Lovenox 40 mg SQ daily (WT < 150 kg, CrCl > 30 mL/min) *Enoxaparin/Lovenox 30 mg SQ daily (WT < 150 kg, CrCl > 10-29 mL/min) *Enoxaparin/Lovenox 30 mg SQ BID (WT < 150 kg, CrCl > 30 mL/min) AND *Sequential Compression Device (SCD) Assessment and Plan - Assessment (1) Closed hip fracture Code(s): S72.009A - Fracture of unspecified part of neck of unspecified femur, initial encounter for closed fracture Status: Acute Plan: Left hip displaced femoral neck fracture Follow-up recommendations of orthopedic surgery; hold Xarelto, n.p.o. at midnight. (2) Cellulitis Code(s): L03.90 - Cellulitis, unspecified Status: Acute Plan: Patient with diabetes, cellulitis 1-2 weeks per . Increased warmth, edema History of PE, likely metastatic cancer, recent immobilization; risk for DVT Follow-up Doppler bilateral lower extremities No areas of fluctuance, abscess, or pus. Start IV Cefazolin and Zosyn preoperatively (3) Lung consolidation Code(s): J18.1 - Lobar pneumonia, unspecified organism Status: Acute Plan: Asymptomatic Continue IV antibiotics as above May consider repeat PA and lateral chest x-ray if diagnosis continues to be unclear Chest x-ray single AP: Left base consolidation and diffuse infiltrate elsewhere (4) Elevated serum creatinine Code(s): R79.89 - Other specified abnormal findings of blood chemistry Status : Acute Plan: Creatinine 1.15 Possible history of CKD per charts? No history of CKD per patient May be due to dehydration versus underlying disease Add IV fluids with caution due to CHF Avoid NSAIDs Follow-up BMP in a.m. (5) Bone metastases Code(s): C79.51 - Secondary malignant neoplasm of bone Status: Acute Plan: History of colon cancer, possible bone metastases noted on imaging Patient has just left rehab, scheduled to meet with Dr. Kellogg into PET scan (6) Chronic anemia Code(s): D64.9 - Anemia, unspecified Status: Acute Plan: Hemoglobin stable per previous hospitalizations Continue to follow-up CBC in a.m., patient will likely need FE/vitamin C/ Colace on discharge (7) CHF (congestive heart failure) Code(s): I50.9 - Heart failure, unspecified Status: Acute Plan: Recent diagnosis of CHF per home healthcare via chest x-ray and labs done today No signs of acute exacerbation Continue prior medication of Lasix 40 mg daily -Will not increase at this time due to elevated creatinine (8) Hypertension Code(s): I10 - Essential (primary) hypertension Status: Acute Plan: Continue home meds; diltiazem, Lasix, metoprolol (9) Neuropathy Code(s): G62.9 - Polyneuropathy, unspecified Status: Acute Plan: Continue home meds; gabapentin (10) A-fib Code(s): I48.91 - Unspecified atrial fibrillation Status: Acute Plan: Patient with chronic A. fib, on diltiazem and Xarelto s/p ablation x 2, follows w/ Continue telemetry (11) Diabetes Code(s): E11.9 - Type 2 diabetes mellitus without complications Status: Acute Plan: Managed with insulin Lantus 15 units subcu at bedtime Continue home meds (12) Hypothyroidism Code(s): E03.9 - Hypothyroidism, unspecified Status: Acute Plan: Continue home meds (13) Nutrition, metabolism, and development symptoms Code(s): R63.8 - Other symptoms and signs concerning food and fluid intake Status: Acute Plan: Fluids: P.o. fluids until midnight, then n.p.o. Electrolytes: Follow-up BMP and replete as needed Nutrition: Regular diet until midnight, then n.p.o. DVT prophylaxis: Holding anticoagulation until postop, then will likely continue anticoagulation on decreased dose 3 days then discharged on full dose - Assessment and Plan 72-year-old female, history of diabetes, recent hospitalization for pneumonia and severe sepsis, colon cancer with likely bone metastases, chronic anemia, CHF , hypertension, neuropathy, atrial fibrillation, hypothyroidism, presents with displaced left femoral neck fracture and leg erythema. (1) Closed hip fracture Qualifiers: Encounter type: initial encounter Laterality: left Qualified Code(s): S72.002A - Fracture of unspecified part of neck of left femur, initial encounter for closed fracture
[2018-02-11] MEDS: Sod Chloride 0.9% Inj 1,000 ML IV.CONT SCH (18:14)
--- NOTE | 2018-02-11 19:08 | P.CONOP ---
[facility] Orthopedics Consult Note - [facility] Consult date: 02/11/18 Chief complaint: Fall, Left Hip Fracture Narrative: 72-year-old female with past medical history of colon cancer, recent CT with widespread bony lesions likely representing metastatic disease ( awaiting outpatient PET), diabetes mellitus, hypertension, hyperlipidemia, atrial fibrillation status post prior ablation who is anticoagulated on Xarelto , hypothyroidism, CKD stage III, pulmonary hypertension, diastolic heart failure who has been on 3 L chronic O2 at the senior care. She fell sometime between 12:00pm and 1:00pm. She noticed immediate pain in the left hip. X-rays in the hospital revealed a displaced femoral neck fracture. She has been overall sick for 3 months and the son feels like she has been in this hospital for almost 4 months straight and it has seemed to affect her mental capacity. She denies any previous problems with the left hip. She has been having a lot of difficulty with balance recently. She has been using a walker. She has developed swelling in the lower legs recently. She has been having some redness in the legs over the last couple of weeks. She denies any radiating pain into the feet. She does describe pain that goes down the left hip towards the left knee. Review of Systems A 12 point review of systems was reviewed and is negative unless as specified in the history of present illness. 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 - Medical History Medical History: Medical History (Last Reviewed 02/11/18 @ 19:02 by Erasmo Dyson MD) Chronic anemia (Acute) CHF (congestive heart failure) (Acute) Port-A-Cath in place (Acute) Diastolic heart failure (Acute) Secondary malignant neoplasm (Acute) UTI (urinary tract infection) (Acute) Pneumonia (Acute) Sepsis (Acute) Insomnia (Acute) Depression (Acute) Weakness (Acute) Overactive bladder (Acute) Hypertension (Acute) Neuropathy (Acute) Hyperlipemia (Acute) A-fib (Acute) Diabetes (Acute) Hypothyroidism (Acute) Diabetes CHF (congestive heart failure) - Surgical History Surgical History: Surgical History (Last Reviewed 02/11/18 @ 19:02 by Erasmo Dyson MD) H/O hernia repair (Acute) H/O esophagogastroduodenoscopy (Acute) History of colonoscopy (Acute) Hx of section (Acute) Hx of appendectomy (Acute) S/P ablation of atrial fibrillation (Acute) H/O colectomy (Acute) - Family History Family History: Family History (Last Reviewed 02/11/18 @ 19:02 by Erasmo Dyson MD) Father Alcoholism Mother Breast cancer Dementia - Tobacco History Second Hand Smoke Exposure: No Tobacco Use In Past 30 Days: No Smoking Status: Never smoker Number of Pack Years (if former smoker): 10 Smoking End Date: 2009 - Alcohol History How Often Do You Have a Drink Containing Alcohol: Never - Substance Use History Substance History: No History of Abuse - Travel History History of Recent Travel: No Recent Travel in the [place] Within the Last 8 Weeks: No Recent Travel Out of the Country Within the Last 8 Weeks: No - Immunization History Tetanus Immunization: Unsure Hx Influenza Vaccine This Season: No Medications and Allergies Active Medications: Active Medications Acetaminophen (Tylenol) 650 mg PO Q4H PRN PRN Reason: Temp > 100.4 Al Hydroxide/Mg Hydroxide (Milk Of Magnesia Liq) 30 ml PO DAILY PRN PRN Reason: SEVERE CONSITIPATION Amiodarone HCl (Cordarone) 100 mg PO DAILY [facility] Bisacodyl (Dulcolax Supp) 10 mg RECTAL DAILY PRN PRN Reason: SEVERE CONSITIPATION Diltiazem HCl (Cardizem Cd 24hr) 240 mg PO DAILY [facility] Furosemide (Lasix) 40 mg PO DAILY [facility] Gabapentin (Neurontin) 800 mg PO TID [facility] Sodium Chloride (Ns Inj) 1,000 mls @ 75 mls/hr IV.CONT .[id number] [facility] Last Admin: 02/11/18 18:14 Dose: 75 mls/hr Lactulose (Lactulose Liq) 30 ml PO DAILY PRN PRN Reason: SEVERE CONSITIPATION Levothyroxine Sodium (Synthroid) 50 mcg PO DAILY@0600 [facility] Metoprolol Tartrate (Lopressor) 50 mg PO DAILY [facility] Morphine Sulfate (Morphine Inj) 2 mg IV.PUSH Q4H PRN PRN Reason: PAIN SCALE 6 TO 10 Ondansetron HCl (Zofran Inj) 4 mg IV.PUSH Q6H PRN PRN Reason: NAUSEA Oxybutynin Chloride (Ditropan) 5 mg PO TID [facility] Last Admin: 02/11/18 18:41 Dose: Not Given Potassium Chloride (K-Dur) 20 meq PO DAILY [facility] Pravastatin Sodium (Pravachol) 40 mg PO DAILY [facility] Senna/Docusate Sodium (Elsa-Colace) 1 tab PO BID [facility] Sennosides (Senokot) 17.2 mg PO Q12H PRN PRN Reason: Moderate Constipation Tramadol HCl (Ultram) 50 mg PO Q6H PRN PRN Reason: acute pain Venlafaxine HCl (Effexor Xr) 75 mg PO DAILY [facility] Allergies Allergy/AdvReac Type Severity Reaction Status Date / Time codeine Allergy Severe Nausea/Vomi Verified 02/11/18 15:02 ting Sulfa (Sulfonamide Allergy Severe Anaphylaxis Verified 02/11/18 15:02 Antibiotics) METAL Allergy Intermediate hives Uncoded 02/11/18 15:02 SURGICAL STEEL Allergy Intermediate hives Uncoded 02/11/18 15:02 Home Medications Medication Instructions Recorded Confirmed Type Lactobacillus acidoph-L.bulgar 1 tab PO BID 01/11/18 02/11/18 History [Lactinex] amiodarone 100 mg PO DAILY 01/11/18 02/11/18 History aspirin [Aspirin Low Dose] 81 mg PO DAILY 01/11/18 02/11/18 History diltiazem HCl 240 mg PO DAILY 01/11/18 02/11/18 History furosemide 40 mg PO DAILY 01/11/18 02/11/18 History gabapentin 800 mg PO TID 01/11/18 02/11/18 History insulin detemir U-100 [Levemir 6 unit SUB-Q QPM 01/11/18 02/11/18 History U-100 Insulin] levothyroxine 50 mcg PO DAILY 01/11/18 02/11/18 History oxybutynin chloride 5 mg PO TID 01/11/18 02/11/18 History potassium chloride 20 meq PO DAILY 01/11/18 02/11/18 History pravastatin 40 mg PO DAILY 01/11/18 02/11/18 History rivaroxaban [Xarelto] 20 mg PO DAILY 01/11/18 02/11/18 History venlafaxine 75 mg PO DAILY 01/11/18 02/11/18 History Exam Vital signs: Vital Signs 02/11/18 14:55 02/11/18 14:59 02/11/18 15:41 Temperature 98.4 F Pulse Rate 67 68 Respiratory Rate 20 Blood Pressure 83/41 L 114/68 Pulse Oximetry 96 68 L 02/11/18 15:46 02/11/18 17:02 Temperature Pulse Rate 75 Respiratory Rate 19 Blood Pressure 148/57 H Pulse Oximetry 96 95 Intake & Output 02/11/18 02/11/18 02/12/18 06:59 18:59 06:59 Output Total 900 / 900 Balance -900 / -900 Weight 95.254 kg Output: Urine 900 / 900 Narrative: GENERAL: The patient is awake but somewhat somnolent at times, and oriented x3. The patient has mild distress due to left hip pain.. PSYCHIATRIC: Normal affect, insight, and judgment. HEENT: Head is atraumatic. Oropharynx is moist. Extraocular muscles are intact. NECK: Non-tender and supple. LUNGS: No audible wheezing. He has normal inspiratory effort with no signs of dyspnea Cardiovascular: There is swelling of the lower extremities of a moderate degree. There is some erythema of a mild degree diffusely about the left lower extremity. The patient does have pulses of the bilateral lower extremities noted. ABDOMEN: Soft, nontender, and nondistended. BACK: No CVA tenderness. EXTREMITIES/SKIN/NEURO/: The left hip does have some bruising. She has mild swelling. There appears to be possible fungal infection about the inguinal folds. She moves the toes on the left foot. There is good capillary refill about the toes. Results - Labs Result Diagrams: 02/11/18 15:10 02/11/18 15:10 Labs: Laboratory Results - last 24 hr 02/11/18 02/11/18 02/11/18 15:10 15:10 15:10 WBC 6.9 RBC 3.65 L Hgb 8.7 L Hct 28.0 L MCV 76.7 L MCH 23.8 L MCHC 31.0 L RDW 18.0 H Plt Count 250 MPV 8.2 Neut % (Auto) 71.5 H Lymph % (Auto) 11.5 Anderson % (Auto) 8.4 H Eos % (Auto) 7.8 H Baso % (Auto) 0.8 Neut # (Auto) 4.9 Lymph # (Auto) 0.8 L Anderson # (Auto) 0.6 Eos # (Auto) 0.5 H Baso # (Auto) 0.1 WBC Differential . Differential Comment Auto diff final PT 14.9 H INR 1.5 APTT 30.3 H Sodium 134 L Potassium 4.0 Chloride 98 Carbon Dioxide 27.2 Anion Gap 9 BUN 22 H Creatinine 1.15 H Estimated GFR 47 L Random Glucose 89 Calcium 8.3 L Total Bilirubin 0.4 AST 27 ALT 13 Alkaline Phosphatase 157 H Troponin I 0.02 B-Natriuretic Peptide Total Protein 7.8 Albumin 2.9 L Urine Color Urine Clarity Urine pH Ur Specific [place] Urine Protein Urine Glucose (UA) Urine Ketones Urine Occult Blood Urine Nitrate Urine Bilirubin Urine Urobilinogen Ur Leukocyte Esterase Urine RBC Urine WBC Ur Squamous Epith Cells Urine Bacteria Urine Mucus Micro UA Comment Urine Culture Comments 02/11/18 02/11/18 15:10 15:10 WBC RBC Hgb Hct MCV MCH MCHC RDW Plt Count MPV Neut % (Auto) Lymph % (Auto) Anderson % (Auto) Eos % (Auto) Baso % (Auto) Neut # (Auto) Lymph # (Auto) Anderson # (Auto) Eos # (Auto) Baso # (Auto) WBC Differential Differential Comment PT INR APTT Sodium Potassium Chloride Carbon Dioxide Anion Gap BUN Creatinine Estimated GFR Random Glucose Calcium Total Bilirubin AST ALT Alkaline Phosphatase Troponin I B-Natriuretic Peptide 302 H Total Protein Albumin Urine Color Straw Urine Clarity Clear Urine pH 6.0 Ur Specific [place] 1.006 Urine Protein Negative Urine Glucose (UA) Negative Urine Ketones Negative Urine Occult Blood Negative Urine Nitrate Negative Urine Bilirubin Negative Urine Urobilinogen Less than 2 Ur Leukocyte Esterase Trace H Urine RBC 1 Urine WBC 4 Ur Squamous Epith Cells <1 Urine Bacteria Rare H Urine Mucus Few H Micro UA Comment Culture not ind Urine Culture Comments Culture not ind - Diagnostic results Imaging: Impressions Chest X-Ray 02/11/18 14:55 CONCLUSION: Left base consolidation and diffuse infiltrate elsewhere. Hip X-Ray 02/11/18 15:04 CONCLUSION: 1. Left femoral neck fracture, possible left inferior pubic ramus and symphysis pubic fractures. 2. Significant osteopenia with punctate lucencies mixed lytic sclerotic lesions highly suspicious for metastatic disease or multiple myeloma. I have reviewed the images for this radiology study. I agree with the interpretation given by the radiologist. Head CT 02/11/18 15:11 CONCLUSION: Slight chronic small vessel ischemic and atrophic changes. Assessment and Plan - Assessment and Plan 72-year-old female with past medical history of colon cancer, recent CT with widespread bony lesions likely representing metastatic disease ( awaiting outpatient PET), diabetes mellitus, hypertension, hyperlipidemia, atrial fibrillation status post prior ablation who is anticoagulated on Xarelto , hypothyroidism, CKD stage III, pulmonary hypertension, diastolic heart failure who has been on 3 L chronic O2 at the senior care. The patient has history of pulmonary embolus as well. Left hip displaced femoral neck fracture. This patient's last dose of Xarelto was yesterday at 6 PM. The patient should continue to have the Xarelto held. The swelling of the legs will be managed by the family practice residents. We discussed with the family practice resident that the patient may benefit from intravenous antibiotics preoperatively since she may have some mild chronic cellulitis of the lower extremities. We discussed that this is a serious condition effecting this patient's extremity. Nonoperative and operative options were discussed and reviewed. Potential consequences of both of these options were reviewed. This patient has significant risks for complications with and without surgical management. Nonoperative management has significant chances of poor outcome including inability to ambulate, bedsores, pneumonia, and . This patient has significant risk for pulmonary embolus. Despite these very significant risks we still would recommend to move forward with a left hip hemiarthroplasty as nonoperative management portends an extremely poor response. The patient would like to move forward with urgent surgical management for this condition. This is surgery should be considered non-elective, given that this patient presented emergently to the hospital, and the decision to proceed with surgery was derived from this presentation. Delaying surgery has the potential to adversly effect the outcome for this patient's extermity. Management of pain associated with surgery will likely require the use of parental controlled substances. The risks and benefits of surgical management have been discussed in detail. The risks of surgery include, but are not limited to, injury to nerves, blood vessels, bleeding, infection, non-healing; loss of range on motion , dysfunction or weakness of the associated joints; blood clots, pneumonia, stroke, heart attack, and .
[2018-02-11] MEDS ORDERED: Naloxone Inj 0.4 MG/ML Vial IV.PUSH PRN (19:19)
[2018-02-11] MEDS: Senna/Docusate Sodium 8.6/50 MG Tablet PO SCH (20:08)
[2018-02-11] MEDS ORDERED: Senna/Docusate Sodium 8.6/50 MG Tablet PO SCH (21:00)
--- NOTE | 2018-02-11 21:01 | US ---
EXAM DATE: 02/11/2018 8:58 PM EDT AGE/SEX: 72 years / Female INDICATIONS: Bilateral leg redness and swelling. CLINICAL DATA: This is the patient's initial encounter. Patient reports that signs and symptoms have been present for 2 weeks and indicates a pain score of 3/10. MEDICAL/SURGICAL HISTORY: Congestive heart failure. Diabetes. Hypertension. Chronic anemia. Hyperlipidemia. Hypothyroidism. Neuropathy. UTI. Hernia. Appendectomy. section. Hernia rep air. Ablation of a-fib. COMPARISON: [facility] [place], US LEG LEFT VENOUS DOPPLER, 12/12/2017. . TECHNIQUE: Venous ultrasound of both lower extremities was performed from the inguinal ligament to t he proximal calf. Real-time, color Doppler and spectral tracing, compression and augmentation techni ques were used. FINDINGS: Right Leg: Normal compression of the deep venous system from the inguinal region to the proximal liat f. No echogenic clot is seen. Normal response of the venous system to augmentation and respiration. Left Leg: Normal compression of the deep venous system from the inguinal region to the proximal calf . No echogenic clot is seen. Normal response of the venous system to augmentation and respiration. Other: None. CONCLUSION: 1. The study is negative for bilateral lower extremity deep venous thrombosis. Electronically signed by: Antonio Voss MD 02/11/2018 8:59 PM EDT
[2018-02-11] MEDS: Morphine Inj 4 MG/ML Vial IV.PUSH PRN (21:24)
[2018-02-11] MEDS: ceFAZolin 2 GM/NS 100 ML IV; Q8H IV.SIG SCH ×2 (21:29)
[2018-02-11] MEDS: Insulin Glargine Inj 1,000 UNITS/10 ML Vial SQ SCH (21:33)
[2018-02-11] MEDS: Piperacil/Tazo 4.5 GM Premix 4.5 GM/100 ML BAG IV.SIG SCH (22:47)
[2018-02-12] MEDS ORDERED: Chlorhexidine Gluconate 2% 1 Pack (2 Cloths) TOPICAL SCH (05:15)
[2018-02-12] MEDS: Levothyroxine 50 MCG Tablet PO SCH (05:37)
[2018-02-12] MEDS: Piperacil/Tazo 4.5 GM Premix 4.5 GM/100 ML BAG IV.SIG SCH ×4 (05:41→21:24)
[2018-02-12] MEDS: ceFAZolin 2 GM/NS 100 ML IV; Q8H IV.SIG SCH ×4 (05:45→20:15)
[2018-02-12] MEDS: Morphine Inj 4 MG/ML Vial IV.PUSH PRN ×3 (05:48→20:16)
[2018-02-12] MEDS: Sod Chloride 0.9% Inj 1,000 ML IV.CONT SCH ×2 (05:50→13:28)
[2018-02-12] MEDS ORDERED: Sodium Chlor 0.9% Inj 500 ML IV.SIG SCH (06:00)
[2018-02-12] MEDS: dilTIAZem CD 180 MG Capsule PO SCH (08:09)
[2018-02-12] MEDS: Amiodarone 200 MG Tablet PO SCH (08:10)
[2018-02-12] MEDS: Metoprolol Tartrate 50 MG Tablet PO SCH (08:11)
[2018-02-12] MEDS: Venlafaxine XR 75 MG Capsule PO SCH (08:13)
[2018-02-12] MEDS: Furosemide 40 MG Tablet PO SCH (08:14)
[2018-02-12] MEDS: Senna/Docusate Sodium 8.6/50 MG Tablet PO SCH ×2 (08:15→20:16)
[2018-02-12] MEDS ORDERED: dilTIAZem CD 240 MG Capsule PO SCH (09:00)
[2018-02-12] MEDS ORDERED: Gabapentin 400 MG Capsule PO SCH (09:00)
[2018-02-12 09:07] LABS: Baso % (Auto) 0.8 % (0.0-2.0); Eos # (Auto) 0.3 th/mm3 (0.0-0.4); Eos % (Auto) 4.3 % (0.0-4.0); Hematocrit 26.3 % (35.0-46.0); Hemoglobin 8.1 gm/dL (11.6-15.3); Lymph # (Auto) 0.7 th/mm3 (1.0-4.8); Lymph % (Auto) 10.2 % (9.0-44.0); Mean Corpuscular Hemoglobin 23.8 pg (27.0-34.0); Mean Corpuscular Volume 77.3 fL (80.0-100.0); Mean Platelet Volume 8.2 fL (7.0-11.0); Mono # (Auto) 0.7 th/mm3 (0.0-0.9); Mono % (Auto) 11.2 % (0.0-8.0); Neut # (Auto) 4.8 th/mm3 (1.8-7.7); Neut % (Auto) 73.5 % (16.0-70.0); Platelet Count 224 th/mm3 (150-450); Red Blood Count 3.41 mil/mm3 (4.00-5.30); Red Cell Distribution Width 18.2 % (11.6-17.2); White Blood Count 6.5 th/mm3 (4.0-11.0)
[2018-02-12 09:10] LABS: Mean Corpuscular HGB Conc 30.8 % (32.0-36.0)
[2018-02-12 09:13] LABS: INR 1.3 Ratio; Prothrombin Time 13.4 sec (9.8-11.6)
[2018-02-12] MEDS ORDERED: fentaNYL Citrate Inj 100 MCG/2 ML Ampul ONE (09:34)
[2018-02-12] MEDS ORDERED: Ketamine Inj 50 MG/5 ML Syringe IV.PUSH ONE (09:34)
[2018-02-12] MEDS ORDERED: fentaNYL Citrate Inj 250 MCG/5 ML Ampul ONE (09:34)
[2018-02-12] MEDS ORDERED: Famotidine PF Inj 20 MG/2 ML Vial ONE (09:35)
[2018-02-12 09:37] LABS: Calcium 8.1 mg/dL (8.5-10.1); Carbon Dioxide 27.8 meq/L (21.0-32.0); Potassium 3.6 meq/L (3.5-5.1)
[2018-02-12] MEDS ORDERED: Albumin Human 5% Inj 250 ML IV.SIG ONE (09:55)
[2018-02-12] MEDS ORDERED: Tranexamic Acid Inj 1,000 MG/10 ML Ampul ONE (10:12)
[2018-02-12] MEDS ORDERED: Glycopyrrolate Inj 1 MG/5 ML Syringe IV.PUSH ONE (10:16)
[2018-02-12] MEDS ORDERED: Lidocaine PF 1% Inj 5 ML Syringe INFILTRATN ONE (10:16)
[2018-02-12] MEDS ORDERED: Phenylephrine/NS 1000 MCG/10ML Syringe IV.PUSH ONE (10:16)
[2018-02-12] MEDS ORDERED: Neostigmine Inj 5 MG/5 ML Syringe IV.PUSH ONE (10:16)
[2018-02-12] MEDS: SODIUM CHLOR 0.9% IV.SIG ONE (10:37)
[2018-02-12] MEDS: TRANEXAMIC ACID IV.SIG ONE (10:37)
[2018-02-12] MEDS ORDERED: Aluminum/Magnesium/Simethacone Susp 30 ML UDC PO PRN (11:41)
[2018-02-12] MEDS ORDERED: Bisacodyl 10 MG Supp RECTAL PRN (11:41)
[2018-02-12] MEDS ORDERED: Post-op Orders (for Pharmacy) OTHER STA (11:41)
--- NOTE | 2018-02-12 11:47 | P.OP ---
- Preoperative Diagnosis (1) Hip fracture Preoperative Diagnosis: Left hip displaced femoral neck fracture. History of metastasis. Postoperative Diagnosis: Same Date of procedure: 02/12/18 Procedure: Left hip hemiarthroplasty Anesthesia: GETA Surgeon: Erasmo Dyson MD Back Wedger: JULISA Hernandez The surgical procedure was assisted by my Advanced Registered Nurse Practitioner. My TABLET COATER presence was necessary throughout this case for the manipulation and positioning of the surgical extremity. My TABLET COATER was assisting me throughout the duration of this procedure. The skill set of an Advance Registered Nurse Practitioner was medically necessary to complete this procedure. During the surgical case, the instructor adjunct surgical technician was working at the back table and the Advance Registered Nurse Practitioner was directly assisting me. Operation and Findings: IMPLANT DESCRIPTION: 1. Corail femoral stem size 11, no collar, standard offset. 2. Bipolar femoral head/neck 28, 46, +1.5. ESTIMATED BLOOD LOSS: 300 cc. PROCEDURE: The patient was brought back to the operative theatre. Adequate anesthesia was obtained. The patient received intravenous vancomycin and the patient was on standing Ancef and Zosyn. The patient was carefully placed on the operative table in the lateral decubitus position with an axillary roll and a well-padded down leg. The lower extremity was prepped and draped in the usual sterile fashion. We proceeded with a standard curvilinear incision centered around the tip of the greater trochanter. We then dissected through the deep fascia and placed a Charnley retractor protecting the sciatic nerve. The greater trochanteric bursa was reflected. We then incised through the piriformis attachment and tagged this with a #2 FiberWire. We then incised through the capsule in a T- shaped fashion and tagged this with a #2 FiberWire as well. We identified a displaced femoral neck fracture. An osteotomy was performed through the residual femoral neck. This bone was then removed followed by removal of the femoral head. The acetabulum was inspected and adequate cartilage stock was identified. We then trialed the femoral head in the acetabulum. The proximal femur was prepared with a rongeur, then a box osteotome, then a canal finder followed by a lateralizing reamer. We sequentially broached the proximal femur. We calcar planed the proximal femur and irrigated removing any remnants of the bone. He did notice a nondisplaced crack that was entering into the calcar region which was stable. We did decide to cable this with a single Synthes cable which provided excellent stability. We trialed the hip with the broach in place. The final femoral stem was impacted into position. Leg lengths were evaluated. We evaluated stability of the hip with the hip in the "position of sleep" and the hip flexed up to 90 and internally rotated. We additionally tested both a "shuck" test and hip extension, confirming there was no undue tension while flexing the knee to 90 during full hip extension. The final bipolar head was impacted and the hip was reduced. Once again we irrigated. We then repaired the capsule and the piriformis with the FiberWire suture. The deep fascia was closed with a #2 Stratafix, followed by 2-0 Vicryl in the skin and ryan. The post-op plan is to weight-bear as tolerated. We will follow posterior total hip precautions, including the use of a canvas knee splint. DVT prophylaxis will be performed with SCDs, ALEXA pope, early mobilization, and resumption of Xarelto using 10 mg daily while in the hospital. The patient can resume her outpatient dose of Xarelto after discharge from the hospital..
[2018-02-12] MEDS ORDERED: Sugammadex Inj 200 MG/2 ML Vial IV.PUSH ONE (12:04)
--- NOTE | 2018-02-12 13:17 | XR ---
EXAM DATE: 02/12/2018 1:15 PM EDT AGE/SEX: 72 years / Female INDICATIONS: Post op left hip surgery. CLINICAL DATA: This is the patient's initial encounter. Patient reports that signs and symptoms have been present for 1 day and indicates a pain score of 2/10. MEDICAL/SURGICAL HISTORY: . Congestive heart failure. Diabetes. Hypertension. Chronic anemia. H yperlipidemia. Hypothyroidism. Neuropathy. Hernia. Appendectomy. section. Hernia repair. Abl ation of a-fib. . COMPARISON: [facility], HIP LEFT W AP PELVIS 2V, 02/11/2018. . FINDINGS: The patient is status post a total hip bipolar arthroplasty. Prosthesis is well-seated. Alignment is anatomic. A fracture is not appreciated. CONCLUSION: Anatomic alignment. Javed Resendez MD FACR Electronically signed by: Javed Resendez MD 02/12/2018 1:16 PM EDT
[2018-02-12] MEDS ORDERED: Sodium Chlor 0.9% Inj 250 ML IV.SIG SCH (13:30)
[2018-02-12] MEDS: Gabapentin 400 MG Capsule PO SCH ×2 (17:00→17:48)
--- NOTE | 2018-02-12 17:59 | P.HPFP ---
History of Present Illness Primary Care Physician: Sheldon Dumont MD, R3 History of Present Illness: Patient seen in the room status post hemiarthroplasty by Dr. Turcios for her left hip femoral neck fracture. She took an oral pain medication with Wilmer that did not provide her any relief, however she took a dose of morphine approximately 2 hours ago and states that her pain is well controlled at this time. She is about to eat dinner. She denies pain at this time, she denies chest pain or palpitations, she denies fevers or chills, she denies numbness or tingling beyond her normal peripheral neuropathy in her feet, she denies inability to move her feet/toes. In summary, this is a 72-year-old female presenting to the emergency department after falling at home and sustaining a left femoral neck fracture. She has a complicated past medical history including colon cancer with bony metastasis, pneumonia with severe sepsis requiring prolonged hospital stay and rehabilitation for which she was discharged home 1 week ago. She was released from rehabilitation and discharged home with a wheelchair, but while she was at home she did try to stand on her own while making herself a hot dog and eventually sustaining a fall to the floor with a direct impact on her left knee and left hip and subsequent pain and inability to use or move her left hip. - Diagnosis (1) Closed hip fracture (2) Cellulitis (3) Lung consolidation (4) Elevated serum creatinine (5) Bone metastases (6) Chronic anemia (7) CHF (congestive heart failure) (8) Hypertension (9) Neuropathy (10) A-fib (11) Diabetes (12) Hypothyroidism (13) Nutrition, metabolism, and development symptoms Inpatient Certification: I certify that the inpatient services were ordered in accordance with Medicare regulations governing the order. This includes certification that hospital inpatient services are reasonable and necessary and in the case of services not specified as inpatient-only under 42 CFR 419.22(n), that they are appropriately provided as inpatient services in accordance to with the 2-midnight benchmark under 43 CFR 412.3(e) Estimated Total Length of Stay (Days): 3 Plans for Post Hospital Care: [facility] - History History Provided By: Patient - Medical History Medical History: Medical History (Last Reviewed 02/11/18 @ 19:02 by Erasmo Dyson MD) Chronic anemia (Acute) CHF (congestive heart failure) (Acute) Port-A-Cath in place (Acute) Diastolic heart failure (Acute) Secondary malignant neoplasm (Acute) UTI (urinary tract infection) (Acute) Pneumonia (Acute) Sepsis (Acute) Insomnia (Acute) Depression (Acute) Weakness (Acute) Overactive bladder (Acute) Hypertension (Acute) Neuropathy (Acute) Hyperlipemia (Acute) A-fib (Acute) Diabetes (Acute) Hypothyroidism (Acute) Diabetes CHF (congestive heart failure) - Surgical History Surgical History: Surgical History (Last Reviewed 02/11/18 @ 19:02 by Erasmo Dyson MD) H/O hernia repair (Acute) H/O esophagogastroduodenoscopy (Acute) History of colonoscopy (Acute) Hx of section (Acute) Hx of appendectomy (Acute) S/P ablation of atrial fibrillation (Acute) H/O colectomy (Acute) - Family History Family History: Family History (Last Reviewed 02/11/18 @ 19:02 by Erasmo Dyson MD) Father Alcoholism Mother Breast cancer Dementia - Tobacco History Second Hand Smoke Exposure: No Tobacco Use In Past 30 Days: No Smoking Status: Never smoker Number of Pack Years (if former smoker): 10 Smoking End Date: 2009 - Alcohol History How Often Do You Have a Drink Containing Alcohol: Never - Substance Use History Substance History: No History of Abuse - Travel History History of Recent Travel: No Recent Travel in the [place] Within the Last 8 Weeks: No Recent Travel Out of the Country Within the Last 8 Weeks: No - Immunization History Tetanus Immunization: Unsure Hx Influenza Vaccine This Season: No Medications and Allergies Active Medications: Active Medications Acetaminophen (Tylenol) 650 mg PO Q4H PRN PRN Reason: Temp > 100.4 Acetaminophen (Tylenol) 650 mg PO Q6HR PRN PRN Reason: PAIN SCALE 1 TO 2 Hydrocodone Bitart/Acetaminophen (Wilmer 5/325) 1 tab PO Q4H PRN PRN Reason: PAIN 3-4 Last Admin: 02/12/18 15:05 Dose: 1 tab Hydrocodone Bitart/Acetaminophen (Wilmer 5/325) 2 tab PO Q6H PRN PRN Reason: PAIN SCALE 5 TO 10 Al Hydrox/Mg Hydrox/Simethicone (Mag-Al Plus Susp Liq) 30 ml PO Q6H PRN PRN Reason: INDIGESTION Al Hydroxide/Mg Hydroxide (Milk Of Magnesia Liq) 30 ml PO BID PRN PRN Reason: Mild Constipation Amiodarone HCl (Cordarone) 100 mg PO DAILY [facility], [facility] Last Admin: 02/12/18 08:10 Dose: 100 mg Bisacodyl (Dulcolax Supp) 10 mg RECTAL DAILY PRN PRN Reason: SEVERE CONSITIPATION Chlorhexidine Gluconate (Chlorhexidine 2% Cloth) 3 pack TOPICAL ANNUAL GIVING DIRECTOR [facility], [facility]1983 Stop: 02/15/18 05:03 Diltiazem HCl (Cardizem Cd 24hr) 180 mg PO DAILY [facility], [facility] Last Admin: 02/12/18 08:09 Dose: Not Given Diphenhydramine HCl (Benadryl) 25 mg PO Q6H PRN PRN Reason: ITCHING Furosemide (Lasix) 40 mg PO DAILY [facility], [facility] Last Admin: 02/12/18 08:14 Dose: Not Given Gabapentin (Neurontin) 400 mg PO TID [facility], [facility] Last Admin: 02/12/18 17:00 Dose: Not Given Piperacillin/Tazobactam/Dextrose (Zosyn 4.5 Gm Premix) 4.5 gm in 100 mls @ 200 mls/hr IV.SIG Q6H [facility], [facility] Last Admin: 02/12/18 16:30 Dose: 200 mls/hr Cefazolin Sodium 2,000 mg/ (Sodium Chloride) 100 mls @ 200 mls/hr IV.SIG Q8H [facility], [facility] Last Infusion: 02/12/18 06:36 Dose: Infused Sodium Chloride (Ns Inj) 500 mls @ 30 mls/hr IV.SIG .Q10H [facility], [facility] Stop: 02/15/18 05:03 Lactated Ringer's (Lr 1000 Ml Inj) 1,000 mls @ 30 mls/hr IV.SIG .Q24H [facility] Stop: 02/15/18 05:03 Last Infusion: 02/12/18 11:56 Dose: Infused Sodium Chloride (Ns Inj) 1,000 mls @ 80 mls/hr IV.CONT .[id number] [facility], [facility] Last Admin: 02/12/18 13:28 Dose: 80 mls/hr Sodium Chloride (Ns Inj) 250 mls @ 15 mls/hr IV.SIG ONCE [facility], [facility] Stop: 02/13/18 06:09 Insulin Glargine (Lantus Inj) 15 units SQ HS [facility] Last Admin: 02/11/18 21:33 Dose: Not Given Lactulose (Lactulose Liq) 30 ml PO DAILY PRN PRN Reason: SEVERE CONSITIPATION Levothyroxine Sodium (Synthroid) 50 mcg PO DAILY@0600 [facility] Last Admin: 02/12/18 05:37 Dose: 50 mcg Metoprolol Tartrate (Lopressor) 50 mg PO DAILY [facility] Last Admin: 02/12/18 08:11 Dose: 50 mg Miscellaneous (Pill Splitter) 1 each OTHER UNSCH PRN PRN Reason: PILL SPLITTER Miscellaneous Information ([facility] Nursing Information) 1 each OTHER UNSCH PRN PRN Reason: SEE LABEL COMMENTS Stop: 02/13/18 12:47 Morphine Sulfate (Morphine Inj) 2 mg IV.PUSH Q3H PRN PRN Reason: BREAKTHROUGH PAIN Last Admin: 02/12/18 16:25 Dose: 2 mg Multivitamins/Minerals (Theragran-M) 1 tab PO BID [facility] Stop: 04/13/18 20:59 Naloxone HCl (Narcan Inj) 0.4 mg IV.PUSH UNSCH PRN PRN Reason: SEE LABEL COMMENTS Ondansetron HCl (Zofran Inj) 4 mg IV.PUSH Q6H PRN PRN Reason: NAUSEA OR VOMITING Oxybutynin Chloride (Ditropan) 5 mg PO TID [facility] Last Admin: 02/12/18 17:00 Dose: Not Given Potassium Chloride (K-Dur) 20 meq PO DAILY [facility] Last Admin: 02/12/18 08:13 Dose: Not Given Povidone Iodine (Betadine 5% Antisepsis Kit) 1 applicatio EACH NARE ANNUAL GIVING DIRECTOR [facility], [facility] Stop: 02/15/18 05:03 Pravastatin Sodium (Pravachol) 40 mg PO DAILY [facility] Last Admin: 02/12/18 08:15 Dose: 40 mg Rivaroxaban (Xarelto) 10 mg PO Q24H [facility], [facility] Senna/Docusate Sodium (Elsa-Colace) 1 tab PO BID [facility] Sennosides (Senokot) 17.2 mg PO BID PRN PRN Reason: Moderate Constipation Sodium Chloride (Ns Flush) 2 ml IV.FLUSH BID [facility] Sodium Chloride (Ns Flush) 2 ml IV.FLUSH UNSCH PRN PRN Reason: FLUSH AFTER USING IV ACCESS Venlafaxine HCl (Effexor Xr) 75 mg PO DAILY [facility] Last Admin: 02/12/18 08:13 Dose: 75 mg Zolpidem Tartrate (Ambien) 5 mg PO HS PRN PRN Reason: INSOMNIA Allergies Allergy/AdvReac Type Severity Reaction Status Date / Time codeine Allergy Severe Nausea/Vomi Verified 02/11/18 15:02 ting Sulfa (Sulfonamide Allergy Severe Anaphylaxis Verified 02/11/18 15:02 Antibiotics) METAL Allergy Intermediate hives Uncoded 02/11/18 15:02 SURGICAL STEEL Allergy Intermediate hives Uncoded 02/11/18 15:02 Home Medications Medication Instructions Recorded Confirmed Type Lactobacillus acidoph-L.bulgar 1 tab PO BID 01/11/18 02/11/18 History [Lactinex] amiodarone 100 mg PO DAILY 01/11/18 02/11/18 History aspirin [Aspirin Low Dose] 81 mg PO DAILY 01/11/18 02/11/18 History diltiazem HCl 240 mg PO DAILY 01/11/18 02/11/18 History furosemide 40 mg PO DAILY 01/11/18 02/11/18 History gabapentin 800 mg PO TID 01/11/18 02/11/18 History insulin detemir U-100 [Levemir 6 unit SUB-Q QPM 01/11/18 02/11/18 History U-100 Insulin] levothyroxine 50 mcg PO DAILY 01/11/18 02/11/18 History oxybutynin chloride 5 mg PO TID 01/11/18 02/11/18 History potassium chloride 20 meq PO DAILY 01/11/18 02/11/18 History pravastatin 40 mg PO DAILY 01/11/18 02/11/18 History rivaroxaban [Xarelto] 20 mg PO DAILY 01/11/18 02/11/18 History venlafaxine 75 mg PO DAILY 01/11/18 02/11/18 History Exam Vital signs: Vital Signs 02/11/18 19:33 02/11/18 20:00 02/12/18 00:00 Temperature 97.6 F 98.0 F Pulse Rate 71 78 80 Respiratory Rate 14 18 Blood Pressure 122/55 L 119/62 125/59 L Pulse Oximetry 98 94 L 94 L 02/12/18 02:40 02/12/18 04:00 02/12/18 08:00 Temperature 97.2 F L 98.0 F Pulse Rate 88 91 H Respiratory Rate 18 19 20 Blood Pressure 126/62 128/63 Pulse Oximetry 94 L 96 02/12/18 12:21 02/12/18 12:30 02/12/18 12:45 Temperature 98.1 F Pulse Rate 78 82 76 Respiratory Rate Blood Pressure 102/62 109/56 L 92/62 L Pulse Oximetry 86 L 97 94 L 02/12/18 13:00 02/12/18 14:02 02/12/18 14:29 Temperature 97.7 F Pulse Rate 82 89 81 Respiratory Rate Blood Pressure 108/52 L 98/55 L 119/66 Pulse Oximetry 93 L 94 L 93 L Intake & Output 02/11/18 02/12/18 02/12/18 18:59 06:59 18:59 Intake Total 1900 / 1900 3309.55 / 3309.55 Output Total 900 / 900 1999 1800 / 1800 Balance -900 / -900 -100 / -100 1509.55 / 1509.55 Weight 95.254 kg 95.5 kg 95.5 kg Intake: IV 400 / 400 1109.55 / 1109.55 LR 1000 mL Inj 1,000 ML @ 30 1000 / 1000 mls/hr IV.SIG .Q24H [facility], [facility] Rx#: [id number] Zosyn 4.5 GM Premix 4.5 gm In 200 / 200 100 ml @ 200 mls/hr IV.SIG Q6H [facility] Rx#:[id number] Cyklokapron Inj 955 MG In NS 109.55 / 109.55 Inj 100 ML @ 200 mls/hr IV.SIG ONCE ONE Rx#:[id number] Ancef Inj 2,000 MG In NS Inj 80 200 / 200 ML @ 200 mls/hr IV.SIG Q8H [facility], [facility] Rx#:[id number] Oral 1500 / 1500 Anesthesia Amount 1400 / 1400 Intake (Blood Product) Amt 400 / 400 Rbc As-3 Leukoreduced Unit 400 / 400 [id number] Autotransfusion Amount 400 / 400 Output: Urine 900 / 900 1999 Estimated Blood Loss 300 / 300 Urine Amount (Catheter) 1500 / 1500 Indwelling Urethral Catheter 1500 / 1500 Other: Weight On Admission 95.5 kg Narrative: CONSTITUTIONAL/GEN: Elderly and debilitated female, lying in bed in no acute distress LUNGS: Distant breath sounds but clear A-P, respiratory effort is normal. CARDIOVASCULAR: Regular rate and rhythm with a 3/6 systolic murmur GI/ABD: soft without masses, without organomegaly. NEURO: Decreased sensation bilateral feet, chronic in nature SKIN: 2+ pitting edema bilateral lower legs up to the knee with erythema bilateral lower extremities PSYCH/MENTAL STATUS: Alert and oriented x 3. Results - Labs Result diagrams: 02/12/18 05:51 02/12/18 05:51 Abnormal lab results 02/11/18 02/11/18 02/11/18 Range/Units 15:10 15:10 15:10 RBC (4.00-5.30) mil/mm3 Hgb (11.6-15.3) gm/dL Hct (35.0-46.0) % MCV (80.0-100.0) fL MCH (27.0-34.0) pg MCHC (32.0-36.0) % RDW (11.6-17.2) % Neut % (Auto) (16.0-70.0) % [place] % (Auto) (0.0-8.0) % Eos % (Auto) (0.0-4.0) % Lymph # (Auto) (1.0-4.8) th/mm3 ESR 70 H (0-30) mm/hr PT (9.8-11.6) sec Chloride (98-107) meq/L BUN (7-18) mg/dL Estimated GFR (>89) mL/min Random Glucose (74-106) mg/dL Calcium (8.5-10.1) mg/dL C-Reactive Protein 2.00 H (0.00-0.30) mg/dL B-Natriuretic Peptide 302 H (0-100) pg/mL MTS Gel Crossmatch 02/12/18 02/12/18 02/12/18 Range/Units 05:51 05:51 05:51 RBC 3.41 L (4.00-5.30) mil/mm3 Hgb 8.1 L (11.6-15.3) gm/dL Hct 26.3 L (35.0-46.0) % MCV 77.3 L (80.0-100.0) fL MCH 23.8 L (27.0-34.0) pg MCHC 30.8 L (32.0-36.0) % RDW 18.2 H (11.6-17.2) % Neut % (Auto) 73.5 H (16.0-70.0) % [place] % (Auto) 11.2 H (0.0-8.0) % Eos % (Auto) 4.3 H (0.0-4.0) % Lymph # (Auto) 0.7 L (1.0-4.8) th/mm3 ESR (0-30) mm/hr PT 13.4 H (9.8-11.6) sec Chloride 97 L (98-107) meq/L BUN 19 H (7-18) mg/dL Estimated GFR 55 L (>89) mL/min Random Glucose 59 L (74-106) mg/dL Calcium 8.1 L (8.5-10.1) mg/dL C-Reactive Protein (0.00-0.30) mg/dL B-Natriuretic Peptide (0-100) pg/mL MTS Gel Crossmatch 02/12/18 Range/Units 09:28 RBC (4.00-5.30) mil/mm3 Hgb (11.6-15.3) gm/dL Hct (35.0-46.0) % MCV (80.0-100.0) fL MCH (27.0-34.0) pg MCHC (32.0-36.0) % RDW (11.6-17.2) % Neut % (Auto) (16.0-70.0) % [place] % (Auto) (0.0-8.0) % Eos % (Auto) (0.0-4.0) % Lymph # (Auto) (1.0-4.8) th/mm3 ESR (0-30) mm/hr PT (9.8-11.6) sec Chloride (98-107) meq/L BUN (7-18) mg/dL Estimated GFR (>89) mL/min Random Glucose (74-106) mg/dL Calcium (8.5-10.1) mg/dL C-Reactive Protein (0.00-0.30) mg/dL B-Natriuretic Peptide (0-100) pg/mL MTS Gel Crossmatch See Detail Short CBC 02/12/18 Range/Units 05:51 WBC 6.5 (4.0-11.0) th/mm3 Hgb 8.1 L (11.6-15.3) gm/dL Hct 26.3 L (35.0-46.0) % Plt Count 224 (150-450) th/mm3 BMP 02/12/18 05:51 Sodium 136 Potassium 3.6 Chloride 97 L Carbon Dioxide 27.8 BUN 19 H Creatinine 1.00 Calcium 8.1 L - Imaging Impressions Venous Doppler Study 02/11/18 00:00 CONCLUSION: 1. The study is negative for bilateral lower extremity deep venous thrombosis. Hip X-Ray 02/12/18 11:40 CONCLUSION: Anatomic alignment. Javed Resendez MD FACR Caprini VTE Risk Assessment Caprini VTE Risk Assessment: No/Low Risk (score <= 1) Caprini Risk Assessment Model: Point Value = 1 Point Value = 2 Point Value = 3 Point Value = 5 Age 41-60 Minor surgery BMI > 25 kg/m2 Swollen legs Varicose veins or History of unexplained or recurrent spontaneous Oral contraceptives or hormone replacement Sepsis (< 1 month) Serious lung disease, including pneumonia (< 1 month) Abnormal pulmonary function Acute myocardial infarction Congestive heart failure (< 1 month) History of inflammatory bowel disease Medical patient at bed rest Age 61-74 Arthroscopic surgery Major open surgery (> 45 min) Laparoscopic surgery (> 45 min) Malignancy Confined to bed (> 72 hours) Immobilizing plaster cast Central venous access Age >= 75 History of VTE Family history of VTE Factor V Leiden Prothrombin [id number] Lupus anticoagulant Anticardiolipin antibodies Elevated serum homocysteine Heparin-induced thrombocytopenia Other congenital or acquired thrombophilia Stroke (< 1 month) Elective arthroplasty Hip, pelvis, or leg fracture Acute spinal cord injury (< 1 month) Prophylaxis Regimen: Total Risk Factor Score Risk Level Prophylaxis Regimen 0-1 Low Early ambulation 2 Moderate Order ONE of the following: *Sequential Compression Device (SCD) *Heparin 5000 units SQ BID 3-4 Higher Order ONE of the following medications: *Heparin 5000 units SQ TID *Enoxaparin/Lovenox 40 mg SQ daily (WT < 150 kg, CrCl > 30 mL/min) *Enoxaparin/Lovenox 30 mg SQ daily (WT < 150 kg, CrCl > 10-29 mL/min) *Enoxaparin/Lovenox 30 mg SQ BID (WT < 150 kg, CrCl > 30 mL/min) AND/OR *Sequential Compression Device (SCD) 5 or more Highest Order ONE of the following medications: *Heparin 5000 units SQ TID (Preferred with Epidurals) *Enoxaparin/Lovenox 40 mg SQ daily (WT < 150 kg, CrCl > 30 mL/min) *Enoxaparin/Lovenox 30 mg SQ daily (WT < 150 kg, CrCl > 10-29 mL/min) *Enoxaparin/Lovenox 30 mg SQ BID (WT < 150 kg, CrCl > 30 mL/min) AND *Sequential Compression Device (SCD) Assessment and Plan - Assessment (1) Closed hip fracture Code(s): S72.009A - Fracture of unspecified part of neck of unspecified femur, initial encounter for closed fracture Status: Acute Plan: Status post hemiarthroplasty of left hip performed today by Dr. Turcios Physical therapy consulted to evaluate and treat starting tomorrow Pain control with Wilmer 5/325 1-2 tablets based on pain scale Morphine every 3 hours as needed for breakthrough pain Restart Xarelto Case management consult placed for likely placement needed (2) Cellulitis Code(s): L03.90 - Cellulitis, unspecified Status: Acute Plan: Lower extremity cellulitis Antibiotics: Ancef Zosyn Bilateral lower extremity ultrasound negative for DVT No areas of fluctuance, abscess, or pus. Monitor daily labs and vitals (3) Lung consolidation Code(s): J18.1 - Lobar pneumonia, unspecified organism Status: Acute Plan: Asymptomatic Continue IV antibiotics as above May consider repeat PA and lateral chest x-ray if diagnosis continues to be unclear Supplemental oxygen as needed to keep O2 saturation at 93% Chest x-ray single AP: Left base consolidation and diffuse infiltrate elsewhere (4) Elevated serum creatinine Code(s): R79.89 - Other specified abnormal findings of blood chemistry Status : Acute Plan: Creatinine 1.15 on admission, down to 1.0 today following IV fluid resuscitation Avoid NSAIDs Follow-up BMP in a.m. (5) Bone metastases Code(s): C79.51 - Secondary malignant neoplasm of bone Status: Acute Plan: History of colon cancer, possible bone metastases noted on imaging Patient has just left rehab, scheduled to meet with Dr. Kellogg into PET scan (6) Chronic anemia Code(s): D64.9 - Anemia, unspecified Status: Acute Plan: Hemoglobin stable per previous hospitalizations 2 units PRBCs ordered to be transfused postoperatively with 20 mg Lasix IV in between Monitor with daily CBCs and transfuse as needed (7) CHF (congestive heart failure) Code(s): I50.9 - Heart failure, unspecified Status: Acute Plan: Recent diagnosis of CHF per home healthcare via chest x-ray and labs done today No signs of acute exacerbation Continue prior medication of Lasix 40 mg daily -Will not increase at this time due to elevated creatinine (8) Hypertension Code(s): I10 - Essential (primary) hypertension Status: Acute Plan: Continue home meds; diltiazem, Lasix, metoprolol (9) Neuropathy Code(s): G62.9 - Polyneuropathy, unspecified Status: Acute Plan: Continue home meds; gabapentin (10) A-fib Code(s): I48.91 - Unspecified atrial fibrillation Status: Acute Plan: Patient with chronic A. fib, on diltiazem and Xarelto s/p ablation x 2, follows w/ Continue telemetry (11) Diabetes Code(s): E11.9 - Type 2 diabetes mellitus without complications Status: Acute Plan: Managed with insulin Lantus 15 units subcu at bedtime Continue home meds (12) Hypothyroidism Code(s): E03.9 - Hypothyroidism, unspecified Status: Acute Plan: Continue home meds (13) Nutrition, metabolism, and development symptoms Code(s): R63.8 - Other symptoms and signs concerning food and fluid intake Status: Acute Plan: Electrolytes: Follow-up BMP and replete as needed Nutrition: Regular diet DVT prophylaxis: Restart anticoagulation with Xarelto - Assessment and Plan 72-year-old female, history of diabetes, recent hospitalization for pneumonia and severe sepsis, colon cancer with likely bone metastases, chronic anemia, CHF , hypertension, neuropathy, atrial fibrillation, hypothyroidism, presents with displaced left femoral neck fracture and leg erythema. H&P: Quality - VTE Deep Vein Thrombosis/Pulmonary Embolism Present on Admission: No (1) Closed hip fracture Qualifiers: Encounter type: initial encounter Laterality: left Qualified Code(s): S72.002A - Fracture of unspecified part of neck of left femur, initial encounter for closed fracture
[2018-02-12] MEDS: Multivitamin/Minerals Therapeutic Tablet PO SCH (20:16)
[2018-02-12] MEDS: Insulin Glargine Inj 1,000 UNITS/10 ML Vial SQ SCH (20:28)
[2018-02-12 20:52] LABS: Hematocrit 25.8 % (35.0-46.0); Hemoglobin 8.1 gm/dL (11.6-15.3)
[2018-02-12] MEDS ORDERED: Zolpidem Tartrate 5 MG Tablet PO PRN (21:00)
--- NOTE | 2018-02-12 21:39 | ECG ---
Date Performed: 02/12/2018 Time Performed: 05:10:28 PTAGE: 72 years EKG: Atrial fibrillation Left anterior fascicular block Inferior/lateral ST-T changes are nonspe cific Low QRS voltages in limb leads Abnormal ECG PREVIOUS TRACING : 01/11/2018 09.26 Since the previous tracing, no significant change noted DOCTOR: Yosvany Alcazar Interpretating Date/Time 02/12/2018 21:37:38
[2018-02-13 03:12] LABS: Baso % (Auto) 0.1 % (0.0-2.0); Hematocrit 25.4 % (35.0-46.0); Hemoglobin 7.9 gm/dL (11.6-15.3); Lymph # (Auto) 0.6 th/mm3 (1.0-4.8); Mean Corpuscular HGB Conc 31.3 % (32.0-36.0); Mean Corpuscular Hemoglobin 24.6 pg (27.0-34.0); Mean Corpuscular Volume 78.8 fL (80.0-100.0); Mean Platelet Volume 8.1 fL (7.0-11.0); Mono # (Auto) 0.7 th/mm3 (0.0-0.9); Mono % (Auto) 9.9 % (0.0-8.0); Platelet Count 221 th/mm3 (150-450); Red Blood Count 3.22 mil/mm3 (4.00-5.30); Red Cell Distribution Width 17.9 % (11.6-17.2); White Blood Count 7.3 th/mm3 (4.0-11.0)
[2018-02-13 03:45] LABS: Alanine Aminotransferase 11 U/L (10-53); Albumin 2.7 g/dL (3.4-5.0); Alkaline Phosphatase 103 U/L (45-117); Anion Gap 10 meq/L (5-15); Aspartate Aminotransferase 19 U/L (15-37); Blood Urea Nitrogen 19 mg/dL (7-18); Calcium 7.8 mg/dL (8.5-10.1); Carbon Dioxide 27.3 meq/L (21.0-32.0); Chloride 99 meq/L (98-107); Glomerular Filtration Rate 43 mL/min (>89); Glucose,Random 170 mg/dL (74-106); Potassium 4.6 meq/L (3.5-5.1); Sodium 136 meq/L (136-145); Total Protein 7.4 g/dL (6.4-8.2)
[2018-02-13] MEDS: Piperacil/Tazo 4.5 GM Premix 4.5 GM/100 ML BAG IV.SIG SCH ×2 (04:56→09:08)
[2018-02-13] MEDS: Levothyroxine 50 MCG Tablet PO SCH ×2 (04:58→09:07)
[2018-02-13] MEDS: ceFAZolin 2 GM/NS 100 ML IV; Q8H IV.SIG SCH ×8 (04:58→21:33)
[2018-02-13] MEDS: Sod Chloride 0.9% Inj 1,000 ML IV.CONT SCH ×2 (06:21→17:47)
[2018-02-13] MEDS: SODIUM CHLOR 0.9% IV.SIG ONE (06:23)
[2018-02-13] MEDS: TRANEXAMIC ACID IV.SIG ONE (06:23)
--- NOTE | 2018-02-13 07:49 | P.PNOP ---
Subjective Interval history: The patient is resting comfortably in bed in no acute distress. The patient does have some baseline confusion. is at bedside. Physical Exam Vital signs: Vital Signs 02/12/18 08:00 02/12/18 12:21 02/12/18 12:30 Temperature 98.0 F 98.1 F Pulse Rate 91 H 78 82 Respiratory Rate 20 19 19 Blood Pressure 128/63 102/62 109/56 L Pulse Oximetry 96 86 L 97 02/12/18 12:45 02/12/18 13:00 02/12/18 14:02 Temperature Pulse Rate 76 82 89 Respiratory Rate 19 19 19 Blood Pressure 92/62 L 108/52 L 98/55 L Pulse Oximetry 94 L 93 L 94 L 02/12/18 14:29 02/12/18 16:00 02/12/18 20:00 Temperature 97.7 F 98 F 98.3 F Pulse Rate 81 80 98 H Respiratory Rate 21 20 20 Blood Pressure 119/66 111/60 122/63 Pulse Oximetry 93 L 94 L 95 02/12/18 20:26 02/13/18 00:00 02/13/18 04:00 Temperature 98.7 F 97.4 F L Pulse Rate 91 H 93 H Respiratory Rate 18 18 18 Blood Pressure 113/71 121/68 Pulse Oximetry 95 97 Intake & Output 02/12/18 02/13/18 02/13/18 18:59 06:59 18:59 Intake Total 3549.55 / 3549.55 2500 / 2500 Output Total 1800 / 1800 1700 / 1700 Balance 1749.55 / 1749.55 800 / 800 Weight 95.5 kg 95.5 kg Intake: IV 1109.55 / 1109.55 2500 / 2500 NS Inj 1,000 ML @ 80 mls/hr IV. 1000 / 1000 CONT .[id number] [facility] Rx#:[id number] LR 1000 mL Inj 1,000 ML @ 30 1000 / 1000 mls/hr IV.SIG .Q24H [facility] Rx#: [id number] Zosyn 4.5 GM Premix 4.5 gm In 300 / 300 100 ml @ 200 mls/hr IV.SIG Q6H [facility] Rx#:[id number] Cyklokapron Inj 955 MG In NS 109.55 / 109.55 Inj 100 ML @ 200 mls/hr IV.SIG ONCE ONE Rx#:[id number] Ancef Inj 2,000 MG In NS Inj 80 200 / 200 ML @ 200 mls/hr IV.SIG Q8H [facility] Rx#:[id number] Oral 240 / 240 Anesthesia Amount 1400 / 1400 Intake (Blood Product) Amt 400 / 400 Rbc As-3 Leukoreduced Unit 400 / 400 [id number] Autotransfusion Amount 400 / 400 Output: Estimated Blood Loss 300 / 300 Urine Amount (Catheter) 1500 / 1500 1700 / 1700 Indwelling Urethral Catheter 1500 / 1500 1700 / 1700 Other: Date of Last Bowel Movement 02/11/18 Weight On Admission 95.5 kg Narrative: The patient's dressing is clean, dry, and intact. EHL/TA/G are intact. 2+ pedal pulse. The patient's calf is soft and nontender. Sensation is intact to light touch distally. Knee immobilizer is in place. - Urinary Catheter Management Indwelling Urethral Catheter Cath placed during this visit: no Results - Labs CBC & Chem 7: 02/13/18 02:52 02/13/18 02:52 Laboratory Results - last 24 hr 02/12/18 02/12/18 02/12/18 05:51 05:51 05:51 WBC 6.5 RBC 3.41 L Hgb 8.1 L Hct 26.3 L MCV 77.3 L MCH 23.8 L MCHC 30.8 L RDW 18.2 H Plt Count 224 MPV 8.2 Neut % (Auto) 73.5 H Lymph % (Auto) 10.2 Kane % (Auto) 11.2 H Eos % (Auto) 4.3 H Baso % (Auto) 0.8 Neut # (Auto) 4.8 Lymph # (Auto) 0.7 L Kane # (Auto) 0.7 Eos # (Auto) 0.3 Baso # (Auto) 0.0 WBC Differential . Differential Comment Auto diff final PT 13.4 H INR 1.3 Sodium 136 Potassium 3.6 Chloride 97 L Carbon Dioxide 27.8 Anion Gap 11 BUN 19 H Creatinine 1.00 Estimated GFR 55 L Random Glucose 59 L Calcium 8.1 L Total Bilirubin AST ALT Alkaline Phosphatase Total Protein Albumin Blood Type Antibody Screen MTS Gel Crossmatch 02/12/18 02/12/18 02/13/18 09:28 19:56 02:52 WBC 7.3 RBC 3.22 L Hgb 8.1 L 7.9 L Hct 25.8 L 25.4 L MCV 78.8 L MCH 24.6 L MCHC 31.3 L RDW 17.9 H Plt Count 221 MPV 8.1 Neut % (Auto) 82.0 H Lymph % (Auto) 8.0 L Kane % (Auto) 9.9 H Eos % (Auto) 0.0 Baso % (Auto) 0.1 Neut # (Auto) 6.0 Lymph # (Auto) 0.6 L Kane # (Auto) 0.7 Eos # (Auto) 0.0 Baso # (Auto) 0.0 WBC Differential . Differential Comment Auto diff final PT INR Sodium Potassium Chloride Carbon Dioxide Anion Gap BUN Creatinine Estimated GFR Random Glucose Calcium Total Bilirubin AST ALT Alkaline Phosphatase Total Protein Albumin Blood Type O Positive Antibody Screen Negative MTS Gel Crossmatch See Detail 02/13/18 02:52 WBC RBC Hgb Hct MCV MCH MCHC RDW Plt Count MPV Neut % (Auto) Lymph % (Auto) Kane % (Auto) Eos % (Auto) Baso % (Auto) Neut # (Auto) Lymph # (Auto) Kane # (Auto) Eos # (Auto) Baso # (Auto) WBC Differential Differential Comment PT INR Sodium 136 Potassium 4.6 D Chloride 99 Carbon Dioxide 27.3 Anion Gap 10 BUN 19 H Creatinine 1.22 H Estimated GFR 43 L Random Glucose 170 H D Calcium 7.8 L Total Bilirubin 0.5 AST 19 ALT 11 Alkaline Phosphatase 103 Total Protein 7.4 Albumin 2.7 L Blood Type Antibody Screen MTS Gel Crossmatch Microbiology 02/11/18 15:25 Blood - Peripheral Aerobic Blood Culture - Preliminary No growth in 1 day 02/11/18 15:25 Blood - Peripheral Anaerobic Blood Culture - Preliminary No growth in 1 day 02/11/18 15:20 Blood - Peripheral Aerobic Blood Culture - Preliminary No growth in 1 day 02/11/18 15:20 Blood - Peripheral Anaerobic Blood Culture - Preliminary No growth in 1 day - Imaging Impressions Hip X-Ray 02/12/18 11:40 CONCLUSION: Anatomic alignment. Javed Resendez MD FACR - Procedures Left hip hemiarthroplasty Assessment and Plan - Assessment and Plan POD #1: Left hip hemiarthroplasty 1. Weightbearing as tolerated on [left] lower extremity. 2. Xarelto for DVT prophylaxis. 3. Ice as needed for swelling. 4. Stable per ortho for discharge to retirement facility once medically cleared and stable. 5. The patient will follow up with Dr. Dyson and/or JULISA Bloom as previously scheduled. 6. We will follow the pathology report for any metastatic findings about the femoral head.
[2018-02-13] MEDS: Metoprolol Tartrate 50 MG Tablet PO SCH (09:04)
[2018-02-13] MEDS: Multivitamin/Minerals Therapeutic Tablet PO SCH ×2 (09:05→21:34)
[2018-02-13] MEDS: Senna/Docusate Sodium 8.6/50 MG Tablet PO SCH (09:05)
[2018-02-13] MEDS: Gabapentin 400 MG Capsule PO SCH ×3 (09:05→17:48)
[2018-02-13] MEDS: Venlafaxine XR 75 MG Capsule PO SCH (09:05)
[2018-02-13] MEDS: Furosemide 40 MG Tablet PO SCH (09:07)
[2018-02-13] MEDS: Amiodarone 200 MG Tablet PO SCH (09:07)
[2018-02-13] MEDS: dilTIAZem CD 180 MG Capsule PO SCH (09:07)
--- NOTE | 2018-02-13 09:54 | P.PNFP ---
Subjective Interval history: Patient seen and examined this morning. No acute events overnight per staff. Briefly discussed presenting history with patient and . Patient's current complaint is her continued neuropathic pain of her bilateral lower extremities. She states that her hip pain is well controlled unless she is moved. Otherwise she has no acute complaints. She denies a complete review of systems including but not limited to any fevers, chills, shortness of breath, chest pain, NVD, abdominal pain, or right calf tenderness. <Chandler Thomas H - 02/13/18 10:35> Results - Labs Result diagrams: 02/13/18 13:55 02/13/18 02:52 <Markie Shore - 02/13/18 16:09> Abnormal lab results 02/12/18 02/12/18 02/13/18 Range/Units 09:28 19:56 02:52 RBC 3.22 L (4.00-5.30) mil/mm3 Hgb 8.1 L 7.9 L (11.6-15.3) gm/dL Hct 25.8 L 25.4 L (35.0-46.0) % MCV 78.8 L (80.0-100.0) fL MCH 24.6 L (27.0-34.0) pg MCHC 31.3 L (32.0-36.0) % RDW 17.9 H (11.6-17.2) % Neut % (Auto) 82.0 H (16.0-70.0) % Lymph % (Auto) 8.0 L (9.0-44.0) % Teller % (Auto) 9.9 H (0.0-8.0) % Lymph # (Auto) 0.6 L (1.0-4.8) th/mm3 BUN (7-18) mg/dL Creatinine (0.50-1.00) mg/dL Estimated GFR (>89) mL/min Random Glucose (74-106) mg/dL Calcium (8.5-10.1) mg/dL Albumin (3.4-5.0) g/dL Vitamin D 25-Hydroxy (30-100) ng/mL MTS Gel Crossmatch See Detail 02/13/18 02/13/18 02/13/18 Range/Units 02:52 11:47 11:47 RBC (4.00-5.30) mil/mm3 Hgb 7.6 L (11.6-15.3) gm/dL Hct 23.8 L (35.0-46.0) % MCV (80.0-100.0) fL MCH (27.0-34.0) pg MCHC (32.0-36.0) % RDW (11.6-17.2) % Neut % (Auto) (16.0-70.0) % Lymph % (Auto) (9.0-44.0) % Teller % (Auto) (0.0-8.0) % Lymph # (Auto) (1.0-4.8) th/mm3 BUN 19 H (7-18) mg/dL Creatinine 1.22 H (0.50-1.00) mg/dL Estimated GFR 43 L (>89) mL/min Random Glucose 170 H D (74-106) mg/dL Calcium 7.8 L (8.5-10.1) mg/dL Albumin 2.7 L (3.4-5.0) g/dL Vitamin D 25-Hydroxy 7.2 L (30-100) ng/mL MTS Gel Crossmatch 02/13/18 Range/Units 13:55 RBC (4.00-5.30) mil/mm3 Hgb 7.4 L (11.6-15.3) gm/dL Hct 23.8 L (35.0-46.0) % MCV (80.0-100.0) fL MCH (27.0-34.0) pg MCHC (32.0-36.0) % RDW (11.6-17.2) % Neut % (Auto) (16.0-70.0) % Lymph % (Auto) (9.0-44.0) % Teller % (Auto) (0.0-8.0) % Lymph # (Auto) (1.0-4.8) th/mm3 BUN (7-18) mg/dL Creatinine (0.50-1.00) mg/dL Estimated GFR (>89) mL/min Random Glucose (74-106) mg/dL Calcium (8.5-10.1) mg/dL Albumin (3.4-5.0) g/dL Vitamin D 25-Hydroxy (30-100) ng/mL MTS Gel Crossmatch Short CBC 02/12/18 02/13/18 02/13/18 Range/Units 19:56 02:52 11:47 WBC 7.3 (4.0-11.0) th/mm3 Hgb 8.1 L 7.9 L 7.6 L (11.6-15.3) gm/dL Hct 25.8 L 25.4 L 23.8 L (35.0-46.0) % Plt Count 221 (150-450) th/mm3 02/13/18 Range/Units 13:55 WBC (4.0-11.0) th/mm3 Hgb 7.4 L (11.6-15.3) gm/dL Hct 23.8 L (35.0-46.0) % Plt Count (150-450) th/mm3 BMP 02/13/18 02:52 Sodium 136 Potassium 4.6 D Chloride 99 Carbon Dioxide 27.3 BUN 19 H Creatinine 1.22 H Calcium 7.8 L Liver Function 02/13/18 Range/Units 02:52 Total Bilirubin 0.5 (0.2-1.0) mg/dL AST 19 (15-37) U/L ALT 11 (10-53) U/L Alkaline Phosphatase 103 (45-117) U/L Albumin 2.7 L (3.4-5.0) g/dL <Markie Shore - 02/13/18 16:09> Abnormal lab results 02/12/18 02/12/18 02/12/18 Range/Units 05:51 09:28 19:56 RBC (4.00-5.30) mil/mm3 Hgb 8.1 L (11.6-15.3) gm/dL Hct 25.8 L (35.0-46.0) % MCV (80.0-100.0) fL MCH (27.0-34.0) pg MCHC (32.0-36.0) % RDW (11.6-17.2) % Neut % (Auto) (16.0-70.0) % Lymph % (Auto) (9.0-44.0) % Teller % (Auto) (0.0-8.0) % Lymph # (Auto) (1.0-4.8) th/mm3 Chloride 97 L (98-107) meq/L BUN 19 H (7-18) mg/dL Creatinine (0.50-1.00) mg/dL Estimated GFR 55 L (>89) mL/min Random Glucose 59 L (74-106) mg/dL Calcium 8.1 L (8.5-10.1) mg/dL Albumin (3.4-5.0) g/dL MTS Gel Crossmatch See Detail 02/13/18 02/13/18 Range/Units 02:52 02:52 RBC 3.22 L (4.00-5.30) mil/mm3 Hgb 7.9 L (11.6-15.3) gm/dL Hct 25.4 L (35.0-46.0) % MCV 78.8 L (80.0-100.0) fL MCH 24.6 L (27.0-34.0) pg MCHC 31.3 L (32.0-36.0) % RDW 17.9 H (11.6-17.2) % Neut % (Auto) 82.0 H (16.0-70.0) % Lymph % (Auto) 8.0 L (9.0-44.0) % Teller % (Auto) 9.9 H (0.0-8.0) % Lymph # (Auto) 0.6 L (1.0-4.8) th/mm3 Chloride (98-107) meq/L BUN 19 H (7-18) mg/dL Creatinine 1.22 H (0.50-1.00) mg/dL Estimated GFR 43 L (>89) mL/min Random Glucose 170 H D (74-106) mg/dL Calcium 7.8 L (8.5-10.1) mg/dL Albumin 2.7 L (3.4-5.0) g/dL MTS Gel Crossmatch Short CBC 02/12/18 02/13/18 Range/Units 19:56 02:52 WBC 7.3 (4.0-11.0) th/mm3 Hgb 8.1 L 7.9 L (11.6-15.3) gm/dL Hct 25.8 L 25.4 L (35.0-46.0) % Plt Count 221 (150-450) th/mm3 BMP 08/22/18 08/23/18 05:51 02:52 Sodium 136 136 Potassium 3.6 4.6 D Chloride 97 L 99 Carbon Dioxide 27.8 27.3 BUN 19 H 19 H Creatinine 1.00 1.22 H Calcium 8.1 L 7.8 L Liver Function 02/13/18 Range/Units 02:52 Total Bilirubin 0.5 (0.2-1.0) mg/dL AST 19 (15-37) U/L ALT 11 (10-53) U/L Alkaline Phosphatase 103 (45-117) U/L Albumin 2.7 L (3.4-5.0) g/dL <Chandler Thomas - 02/13/18 09:53> - Imaging Impressions Hip X-Ray 02/12/18 11:40 CONCLUSION: Anatomic alignment. Javed Resendez MD FACR <Chandler Thomas - 02/13/18 09:53> Physical Exam Vital signs: Vital Signs 02/12/18 20:00 02/12/18 20:26 02/13/18 00:00 Temperature 98.3 F 98.7 F Pulse Rate 98 H 91 H Respiratory Rate 20 18 18 Blood Pressure 122/63 113/71 Pulse Oximetry 95 95 02/13/18 04:00 02/13/18 07:48 02/13/18 08:00 Temperature 97.4 F L 97.9 F Pulse Rate 93 H 89 Respiratory Rate 18 18 18 Blood Pressure 121/68 129/70 Pulse Oximetry 97 97 02/13/18 12:00 02/13/18 12:07 02/13/18 12:08 Temperature 99.0 F Pulse Rate 85 77 Respiratory Rate 18 18 16 Blood Pressure 112/69 Pulse Oximetry 97 94 L 02/13/18 12:34 02/13/18 15:27 Temperature Pulse Rate Respiratory Rate 18 Blood Pressure Pulse Oximetry 93 L Intake & Output 02/12/18 02/13/18 02/13/18 18:59 06:59 18:59 Intake Total 3549.55 / 3549.55 2500 / 2500 200 / 200 Output Total 1800 / 1800 1700 / 1700 800 / 800 Balance 1749.55 / 1749.55 800 / 800 -600 / -600 Weight 95.5 kg 95.5 kg Intake: IV 1109.55 / 1109.55 2500 / 2500 200 / 200 NS Inj 1,000 ML @ 80 mls/hr IV. 1000 / 1000 CONT .[id number] [facility] Rx#:[id number] LR 1000 mL Inj 1,000 ML @ 30 1000 / 1000 mls/hr IV.SIG .Q24H [facility] Rx#: [id number] Zosyn 4.5 GM Premix 4.5 gm In 300 / 300 100 / 100 100 ml @ 200 mls/hr IV.SIG Q6H [facility] Rx#:[id number] Cyklokapron Inj 955 MG In NS 109.55 / 109.55 Inj 100 ML @ 200 mls/hr IV.SIG ONCE ONE Rx#:[id number] Ancef Inj 2,000 MG In NS Inj 80 200 / 200 100 / 100 ML @ 200 mls/hr IV.SIG Q8H [facility] Rx#:[id number] Oral 240 / 240 Anesthesia Amount 1400 / 1400 Intake (Blood Product) Amt 400 / 400 Rbc As-3 Leukoreduced Unit 400 / 400 [id number] Autotransfusion Amount 400 / 400 Output: Estimated Blood Loss 300 / 300 Urine Amount (Catheter) 1500 / 1500 1700 / 1700 800 / 800 Indwelling Urethral Catheter 1500 / 1500 1700 / 1700 800 / 800 Other: Date of Last Bowel Movement 02/11/18 02/11/18 Weight On Admission 95.5 kg <Markie Shore - 02/13/18 16:09> Vital Signs 02/12/18 12:21 02/12/18 12:30 02/12/18 12:45 Temperature 98.1 F Pulse Rate 78 82 76 Respiratory Rate 19 19 19 Blood Pressure 102/62 109/56 L 92/62 L Pulse Oximetry 86 L 97 94 L 02/12/18 13:00 02/12/18 14:02 02/12/18 14:29 Temperature 97.7 F Pulse Rate 82 89 81 Respiratory Rate 19 19 21 Blood Pressure 108/52 L 98/55 L 119/66 Pulse Oximetry 93 L 94 L 93 L 02/12/18 16:00 02/12/18 20:00 02/12/18 20:26 Temperature 98 F 98.3 F Pulse Rate 80 98 H Respiratory Rate 20 20 18 Blood Pressure 111/60 122/63 Pulse Oximetry 94 L 95 02/13/18 00:00 02/13/18 04:00 02/13/18 07:48 Temperature 98.7 F 97.4 F L Pulse Rate 91 H 93 H Respiratory Rate 18 18 18 Blood Pressure 113/71 121/68 Pulse Oximetry 95 97 02/13/18 08:00 Temperature 97.9 F Pulse Rate 89 Respiratory Rate 18 Blood Pressure 129/70 Pulse Oximetry 97 Intake & Output 02/12/18 02/13/18 02/13/18 18:59 06:59 18:59 Intake Total 3549.55 / 3549.55 2500 / 2500 Output Total 1800 / 1800 1700 / 1700 Balance 1749.55 / 1749.55 800 / 800 Weight 95.5 kg 95.5 kg Intake: IV 1109.55 / 1109.55 2500 / 2500 NS Inj 1,000 ML @ 80 mls/hr IV. 1000 / 1000 CONT .[id number] [facility] Rx#:[id number] LR 1000 mL Inj 1,000 ML @ 30 1000 / 1000 mls/hr IV.SIG .Q24H [facility] Rx#: [id number] Zosyn 4.5 GM Premix 4.5 gm In 300 / 300 100 ml @ 200 mls/hr IV.SIG Q6H [facility] Rx#:[id number] Cyklokapron Inj 955 MG In NS 109.55 / 109.55 Inj 100 ML @ 200 mls/hr IV.SIG ONCE ONE Rx#:[id number] Ancef Inj 2,000 MG In NS Inj 80 200 / 200 ML @ 200 mls/hr IV.SIG Q8H [facility] Rx#:[id number] Oral 240 / 240 Anesthesia Amount 1400 / 1400 Intake (Blood Product) Amt 400 / 400 Rbc As-3 Leukoreduced Unit 400 / 400 [id number] Autotransfusion Amount 400 / 400 Output: Estimated Blood Loss 300 / 300 Urine Amount (Catheter) 1500 / 1500 1700 / 1700 Indwelling Urethral Catheter 1500 / 1500 1700 / 1700 Other: Date of Last Bowel Movement 02/11/18 02/11/18 Weight On Admission 95.5 kg <Chandler Thomas H - 02/13/18 10:35> Narrative: GENERAL: Elderly female lying in bed with at bedside in no acute distress. SKIN: Warm and dry. Pale appearing. No rash. HEENT: Atraumatic, normocephalic with extraocular motions intact. No rhinorrhea. No visible lymphadenopathy or jugulovenous distension appreciated. CARDIOVASCULAR: Irregular rate and rhythm consistent with atrial fibrillation. No obvious murmurs, gallops, or rubs. 2+ pulses in all four extremities. RESPIRATORY: Clear to anterior auscultation bilaterally with no crackles, wheezes, or rhonchi. No increased work of breathing. GASTROINTESTINAL: Abdomen soft, non-tender, nondistended with positive bowel sounds. No masses appreciated. MUSCULOSKELETAL: No cyanosis or edema. No calf tenderness. LLE: Left lower extremity in leg immobilizer. Range of motion intact at the ankle and digits. Sensation intact throughout the lower extremity. Appropriate capillary refill at the digits. Left hip incision sterilely bandaged and appears clean, dry, and intact without signs of hemorrhage or infection at this time. NEURO/PSYCH: Afocal. Awake, alert, and oriented x3. Normal speech and judgement. <Chandler Thomas - 02/13/18 10:35> - Urinary Catheter Management Indwelling Urethral Catheter Cath placed during this visit: no <Markie Shore - 02/13/18 16:09> no <Chandler Thomas - 02/13/18 15:35> Assessment and Plan - Assessment (1) Closed hip fracture Code(s): S72.009A - Fracture of unspecified part of neck of unspecified femur, initial encounter for closed fracture Status: Acute (2) Cellulitis Code(s): L03.90 - Cellulitis, unspecified Status: Acute (3) Lung consolidation Code(s): J18.1 - Lobar pneumonia, unspecified organism Status: Acute (4) Elevated serum creatinine Code(s): R79.89 - Other specified abnormal findings of blood chemistry Status : Acute (5) Bone metastases Code(s): C79.51 - Secondary malignant neoplasm of bone Status: Chronic (6) Chronic anemia Code(s): D64.9 - Anemia, unspecified Status: Chronic (7) CHF (congestive heart failure) Code(s): I50.9 - Heart failure, unspecified Status: Chronic (8) Hypertension Code(s): I10 - Essential (primary) hypertension Status: Chronic (9) Neuropathy Code(s): G62.9 - Polyneuropathy, unspecified Status: Chronic (10) A-fib Code(s): I48.91 - Unspecified atrial fibrillation Status: Chronic (11) Diabetes Code(s): E11.9 - Type 2 diabetes mellitus without complications Status: Chronic (12) Hypothyroidism Code(s): E03.9 - Hypothyroidism, unspecified Status: Acute (13) Nutrition, metabolism, and development symptoms Code(s): R63.8 - Other symptoms and signs concerning food and fluid intake Status: Acute <Markie Shore - 02/13/18 16:09> (1) Closed hip fracture Code(s): S72.009A - Fracture of unspecified part of neck of unspecified femur, initial encounter for closed fracture Status: Acute Plan: Status post hemiarthroplasty of left hip performed 02/13/[address] Turcios -Vitamin D: Pending -Ice and elevated LLE -Physical therapy consulted to evaluate and treat -Plan for discharge to rehab, form completed and provided to CM who will assist with placement -Incentive spirometry Medications: -Pain control with Alpha 5/325 1-2 tablets based on pain scale -Morphine every 3 hours as needed for breakthrough pain -Continue Xarelto (2) Cellulitis Code(s): L03.90 - Cellulitis, unspecified Status: Acute Plan: Lower extremity cellulitis -US: Bilateral lower extremity ultrasound negative for DVT -No areas of fluctuance, abscess, or pus. -Monitor daily labs and vitals Medications: -Ancef (02/11/18- ) -Zosyn (02/11/18-02/13/18) -Plan to discharge on Keflex 500mg Q6H for a total of 10 days (3) Lung consolidation Code(s): J18.1 - Lobar pneumonia, unspecified organism Status: Acute Plan: Asymptomatic May consider repeat PA and lateral chest x-ray if diagnosis continues to be unclear -Chest x-ray single AP: Left base consolidation and diffuse infiltrate elsewhere -Supplemental oxygen as needed to keep O2 saturation at 93% -Incentive spirometry -Albuterol PRN for SOB Medications: -Continue IV antibiotics as above (4) Elevated serum creatinine Code(s): R79.89 - Other specified abnormal findings of blood chemistry Status : Acute Plan: Creatinine 1.15 on admission, baseline approximately 0.7-0.9 per chart review -Cr elevated to 1.2 -Avoid NSAIDs -Careful IV fluid administration secondary to CHF -Continue to monitor (5) Bone metastases Code(s): C79.51 - Secondary malignant neoplasm of bone Status: Chronic Plan: -History of colon cancer, possible bone metastases noted on imaging -Patient has just left rehab after previous hospitalization -Scheduled to meet with Dr. Kellogg for PET scan as outpatient (6) Chronic anemia Code(s): D64.9 - Anemia, unspecified Status: Chronic Plan: Patient with chronic anemia, baseline approximately 8-10 per chart review -2 units PRBCs ordered to be transfused postoperatively with 20 mg Lasix IV in between -Per chart review, only 1 unit PRBC administered with IV Lasix -Ordered 2nd unit PRBC for continued anemia with IV Lasix -Trend H/H Q6H (7) CHF (congestive heart failure) Code(s): I50.9 - Heart failure, unspecified Status: Chronic Plan: Recent diagnosis of CHF per home healthcare via chest x-ray and labs done today No signs of acute exacerbation Medications: -Continue prior medication of Lasix 40 mg daily (8) Hypertension Code(s): I10 - Essential (primary) hypertension Status: Chronic Plan: Medications: -Continue home meds; diltiazem, Lasix, metoprolol (9) Neuropathy Code(s): G62.9 - Polyneuropathy, unspecified Status: Chronic Plan: Medications: -Pain management as above -Continue home meds; gabapentin (10) A-fib Code(s): I48.91 - Unspecified atrial fibrillation Status: Chronic Plan: Patient with chronic Atrial fibrillation s/p ablation x 2, follows w/ -Continue telemetry Medications: -Continue diltiazem and Xarelto (11) Diabetes Code(s): E11.9 - Type 2 diabetes mellitus without complications Status: Chronic Plan: Managed with insulin -Patient refusing medications Medications: -Continue home medications: Lantus 15 units QHS (12) Hypothyroidism Code(s): E03.9 - Hypothyroidism, unspecified Status: Acute Plan: Medications: -Continue home Levothyroxine 50mcg (13) Nutrition, metabolism, and development symptoms Code(s): R63.8 - Other symptoms and signs concerning food and fluid intake Status: Acute Plan: Electrolytes: Follow-up BMP and replete as needed Nutrition: Diabetic diet as tolerated DVT prophylaxis: Restarted anticoagulation with Xarelto 02/13/18 Prophylaxis: Pain management as above, Albuterol PRN for SOB, Incentive spirometry PT to evaluate and treat CM consulted to assist with placement, rehabilitation form completed <Chandler Thomas - 02/13/18 15:33> - Assessment and Plan 72-year-old female, history of diabetes, recent hospitalization for pneumonia and severe sepsis, colon cancer with likely bone metastases, chronic anemia, CHF , hypertension, neuropathy, atrial fibrillation, hypothyroidism, presents with displaced left femoral neck fracture and leg erythema. She is s/p uncomplicated L hip hemiarthroplasty. <Chandler Thomas - 02/13/18 09:53> - Attending Attestation Patient examined independently and case discussed with resident physician I have read the above note and agree with the assessment/plan as discussed with me I was involved in all medical decision making for this patient Markie Shore MD <Markie Shore - 02/13/18 16:09> <Chandler Thomas - Last Filed: 02/13/18 15:33> (1) Closed hip fracture Qualifiers: Encounter type: initial encounter Laterality: left Qualified Code(s): S72.002A - Fracture of unspecified part of neck of left femur, initial encounter for closed fracture <Markie Shore - Last Filed: 02/13/18 16:09> (1) Closed hip fracture Qualifiers: Encounter type: initial encounter Laterality: left Qualified Code(s): S72.002A - Fracture of unspecified part of neck of left femur, initial encounter for closed fracture <Chandler Thomas - Last Filed: 02/13/18 15:33> (1) Closed hip fracture Qualifiers: Encounter type: initial encounter Laterality: left Qualified Code(s): S72.002A - Fracture of unspecified part of neck of left femur, initial encounter for closed fracture <Markie Shore - Last Filed: 02/13/18 16:09> (1) Closed hip fracture Qualifiers: Encounter type: initial encounter Laterality: left Qualified Code(s): S72.002A - Fracture of unspecified part of neck of left femur, initial encounter for closed fracture
[2018-02-13] MEDS: Rivaroxaban 10 MG Tablet PO SCH (11:39)
[2018-02-13] MEDS: Morphine Inj 4 MG/ML Vial IV.PUSH PRN (12:32)
[2018-02-13 13:22] LABS: Hematocrit 23.8 % (35.0-46.0); Hemoglobin 7.6 gm/dL (11.6-15.3)
[2018-02-13 14:57] LABS: Hematocrit 23.8 % (35.0-46.0); Hemoglobin 7.4 gm/dL (11.6-15.3)
[2018-02-13] MEDS ORDERED: Piperacil/Tazo 3.375 GM Premix 50 ML IV.SIG SCH (15:30)
[2018-02-13] MEDS ORDERED: Sodium Chlor 0.9% Inj 250 ML IV.SIG SCH (16:00)
[2018-02-13] MEDS: Insulin Glargine Inj 1,000 UNITS/10 ML Vial SQ SCH (21:35)
[2018-02-13 22:08] LABS: Hematocrit 27.3 % (35.0-46.0); Hemoglobin 8.5 gm/dL (11.6-15.3)
[2018-02-14] MEDS: Senna/Docusate Sodium 8.6/50 MG Tablet PO SCH ×3 (00:32→22:23)
[2018-02-14 01:15] LABS: Hematocrit 25.7 % (35.0-46.0); Hemoglobin 8.3 gm/dL (11.6-15.3)
[2018-02-14 04:52] LABS: Baso % (Auto) 0.5 % (0.0-2.0); Eos % (Auto) 0.4 % (0.0-4.0); Hematocrit 26.3 % (35.0-46.0); Hemoglobin 8.6 gm/dL (11.6-15.3); Lymph # (Auto) 1.3 th/mm3 (1.0-4.8); Lymph % (Auto) 14.3 % (9.0-44.0); Mean Corpuscular HGB Conc 32.7 % (32.0-36.0); Mean Corpuscular Hemoglobin 24.9 pg (27.0-34.0); Mean Platelet Volume 8.1 fL (7.0-11.0); Mono # (Auto) 1.5 th/mm3 (0.0-0.9); Mono % (Auto) 16.1 % (0.0-8.0); Neut # (Auto) 6.4 th/mm3 (1.8-7.7); Neut % (Auto) 68.7 % (16.0-70.0); Platelet Count 221 th/mm3 (150-450); Red Blood Count 3.45 mil/mm3 (4.00-5.30); Red Cell Distribution Width 19.7 % (11.6-17.2); White Blood Count 9.3 th/mm3 (4.0-11.0)
[2018-02-14 05:13] LABS: Alanine Aminotransferase 9 U/L (10-53); Albumin 2.7 g/dL (3.4-5.0); Anion Gap 8 meq/L (5-15); Aspartate Aminotransferase 22 U/L (15-37); Blood Urea Nitrogen 24 mg/dL (7-18); Calcium 7.8 mg/dL (8.5-10.1); Carbon Dioxide 30.8 meq/L (21.0-32.0); Chloride 96 meq/L (98-107); Glomerular Filtration Rate 42 mL/min (>89); Glucose,Random 91 mg/dL (74-106); Potassium 4.1 meq/L (3.5-5.1); Sodium 135 meq/L (136-145)
[2018-02-14 05:14] LABS: Alkaline Phosphatase 101 U/L (45-117); Total Protein 7.4 g/dL (6.4-8.2)
[2018-02-14] MEDS: Sod Chloride 0.9% Inj 1,000 ML IV.CONT SCH ×2 (05:17→15:35)
[2018-02-14] MEDS: Levothyroxine 50 MCG Tablet PO SCH (05:49)
[2018-02-14] MEDS: ceFAZolin 2 GM/NS 100 ML IV; Q8H IV.SIG SCH ×4 (05:49→13:00)
--- NOTE | 2018-02-14 09:14 | P.PNFP ---
Subjective Interval history: Patient seen and examined this morning. No acute events overnight per nursing staff. Patient was transfused 1 unit yesterday afternoon without complications. Patient has been reports that she did not sleep well overnight, and is very sleepy this morning. We discussed her constipation which she reports is her baseline even without narcotic medication. He does report that she has been eating well and otherwise has no complaints. She is unable to complete a thorough review of systems as she is sleeping throughout most of the interview and exam. <WilliamChandler Isac - 02/14/18 09:56> Results - Labs Result diagrams: 02/14/18 11:45 02/14/18 03:29 <Markie Shore - 02/14/18 14:18> Abnormal lab results 02/12/18 02/13/18 02/13/18 Range/Units 09:28 11:47 13:55 RBC (4.00-5.30) mil/mm3 Hgb 7.4 L (11.6-15.3) gm/dL Hct 23.8 L (35.0-46.0) % MCV (80.0-100.0) fL MCH (27.0-34.0) pg RDW (11.6-17.2) % Coffee % (Auto) (0.0-8.0) % Coffee # (Auto) (0.0-0.9) th/mm3 Sodium (136-145) meq/L Chloride (98-107) meq/L BUN (7-18) mg/dL Creatinine (0.50-1.00) mg/dL Estimated GFR (>89) mL/min POC Glucose (68-110) mg/dl Calcium (8.5-10.1) mg/dL ALT (10-53) U/L Albumin (3.4-5.0) g/dL Vitamin D 25-Hydroxy 7.2 L (30-100) ng/mL MTS Gel Crossmatch See Detail 02/13/18 02/13/18 02/13/18 Range/Units 15:23 20:30 21:57 RBC (4.00-5.30) mil/mm3 Hgb 8.5 L (11.6-15.3) gm/dL Hct 27.3 L (35.0-46.0) % MCV (80.0-100.0) fL MCH (27.0-34.0) pg RDW (11.6-17.2) % Coffee % (Auto) (0.0-8.0) % Coffee # (Auto) (0.0-0.9) th/mm3 Sodium (136-145) meq/L Chloride (98-107) meq/L BUN (7-18) mg/dL Creatinine (0.50-1.00) mg/dL Estimated GFR (>89) mL/min POC Glucose 143 H (68-110) mg/dl Calcium (8.5-10.1) mg/dL ALT (10-53) U/L Albumin (3.4-5.0) g/dL Vitamin D 25-Hydroxy (30-100) ng/mL MTS Gel Crossmatch See Detail 02/14/18 02/14/18 02/14/18 Range/Units 00:47 03:29 03:29 RBC 3.45 L (4.00-5.30) mil/mm3 Hgb 8.3 L 8.6 L (11.6-15.3) gm/dL Hct 25.7 L 26.3 L (35.0-46.0) % MCV 76.0 L (80.0-100.0) fL MCH 24.9 L (27.0-34.0) pg RDW 19.7 H (11.6-17.2) % Coffee % (Auto) 16.1 H (0.0-8.0) % Coffee # (Auto) 1.5 H (0.0-0.9) th/mm3 Sodium 135 L (136-145) meq/L Chloride 96 L (98-107) meq/L BUN 24 H (7-18) mg/dL Creatinine 1.26 H (0.50-1.00) mg/dL Estimated GFR 42 L (>89) mL/min POC Glucose (68-110) mg/dl Calcium 7.8 L (8.5-10.1) mg/dL ALT 9 L (10-53) U/L Albumin 2.7 L (3.4-5.0) g/dL Vitamin D 25-Hydroxy (30-100) ng/mL MTS Gel Crossmatch 02/14/18 Range/Units 11:45 RBC (4.00-5.30) mil/mm3 Hgb 8.2 L (11.6-15.3) gm/dL Hct 25.9 L (35.0-46.0) % MCV (80.0-100.0) fL MCH (27.0-34.0) pg RDW (11.6-17.2) % Coffee % (Auto) (0.0-8.0) % Coffee # (Auto) (0.0-0.9) th/mm3 Sodium (136-145) meq/L Chloride (98-107) meq/L BUN (7-18) mg/dL Creatinine (0.50-1.00) mg/dL Estimated GFR (>89) mL/min POC Glucose (68-110) mg/dl Calcium (8.5-10.1) mg/dL ALT (10-53) U/L Albumin (3.4-5.0) g/dL Vitamin D 25-Hydroxy (30-100) ng/mL MTS Gel Crossmatch Short CBC 02/13/18 02/13/18 02/14/18 Range/Units 13:55 21:57 00:47 WBC (4.0-11.0) th/mm3 Hgb 7.4 L 8.5 L 8.3 L (11.6-15.3) gm/dL Hct 23.8 L 27.3 L 25.7 L (35.0-46.0) % Plt Count (150-450) th/mm3 02/14/18 02/14/18 Range/Units 03:29 11:45 WBC 9.3 (4.0-11.0) th/mm3 Hgb 8.6 L 8.2 L (11.6-15.3) gm/dL Hct 26.3 L 25.9 L (35.0-46.0) % Plt Count 221 (150-450) th/mm3 BMP 02/14/18 03:29 Sodium 135 L Potassium 4.1 Chloride 96 L Carbon Dioxide 30.8 BUN 24 H Creatinine 1.26 H Calcium 7.8 L Liver Function 02/14/18 Range/Units 03:29 Total Bilirubin 0.3 (0.2-1.0) mg/dL AST 22 (15-37) U/L ALT 9 L (10-53) U/L Alkaline Phosphatase 101 (45-117) U/L Albumin 2.7 L (3.4-5.0) g/dL <Markie Shore - 02/14/18 14:18> Abnormal lab results 02/12/18 02/13/18 02/13/18 Range/Units 09:28 11:47 11:47 RBC (4.00-5.30) mil/mm3 Hgb 7.6 L (11.6-15.3) gm/dL Hct 23.8 L (35.0-46.0) % MCV (80.0-100.0) fL MCH (27.0-34.0) pg RDW (11.6-17.2) % Coffee % (Auto) (0.0-8.0) % Coffee # (Auto) (0.0-0.9) th/mm3 Sodium (136-145) meq/L Chloride (98-107) meq/L BUN (7-18) mg/dL Creatinine (0.50-1.00) mg/dL Estimated GFR (>89) mL/min POC Glucose (68-110) mg/dl Calcium (8.5-10.1) mg/dL ALT (10-53) U/L Albumin (3.4-5.0) g/dL Vitamin D 25-Hydroxy 7.2 L (30-100) ng/mL MTS Gel Crossmatch See Detail 02/13/18 02/13/18 02/13/18 Range/Units 13:55 15:23 20:30 RBC (4.00-5.30) mil/mm3 Hgb 7.4 L (11.6-15.3) gm/dL Hct 23.8 L (35.0-46.0) % MCV (80.0-100.0) fL MCH (27.0-34.0) pg RDW (11.6-17.2) % Coffee % (Auto) (0.0-8.0) % Coffee # (Auto) (0.0-0.9) th/mm3 Sodium (136-145) meq/L Chloride (98-107) meq/L BUN (7-18) mg/dL Creatinine (0.50-1.00) mg/dL Estimated GFR (>89) mL/min POC Glucose 143 H (68-110) mg/dl Calcium (8.5-10.1) mg/dL ALT (10-53) U/L Albumin (3.4-5.0) g/dL Vitamin D 25-Hydroxy (30-100) ng/mL MTS Gel Crossmatch See Detail 02/13/18 02/14/18 02/14/18 Range/Units 21:57 00:47 03:29 RBC 3.45 L (4.00-5.30) mil/mm3 Hgb 8.5 L 8.3 L 8.6 L (11.6-15.3) gm/dL Hct 27.3 L 25.7 L 26.3 L (35.0-46.0) % MCV 76.0 L (80.0-100.0) fL MCH 24.9 L (27.0-34.0) pg RDW 19.7 H (11.6-17.2) % Coffee % (Auto) 16.1 H (0.0-8.0) % Coffee # (Auto) 1.5 H (0.0-0.9) th/mm3 Sodium (136-145) meq/L Chloride (98-107) meq/L BUN (7-18) mg/dL Creatinine (0.50-1.00) mg/dL Estimated GFR (>89) mL/min POC Glucose (68-110) mg/dl Calcium (8.5-10.1) mg/dL ALT (10-53) U/L Albumin (3.4-5.0) g/dL Vitamin D 25-Hydroxy (30-100) ng/mL MTS Gel Crossmatch 02/14/18 Range/Units 03:29 RBC (4.00-5.30) mil/mm3 Hgb (11.6-15.3) gm/dL Hct (35.0-46.0) % MCV (80.0-100.0) fL MCH (27.0-34.0) pg RDW (11.6-17.2) % Coffee % (Auto) (0.0-8.0) % Coffee # (Auto) (0.0-0.9) th/mm3 Sodium 135 L (136-145) meq/L Chloride 96 L (98-107) meq/L BUN 24 H (7-18) mg/dL Creatinine 1.26 H (0.50-1.00) mg/dL Estimated GFR 42 L (>89) mL/min POC Glucose (68-110) mg/dl Calcium 7.8 L (8.5-10.1) mg/dL ALT 9 L (10-53) U/L Albumin 2.7 L (3.4-5.0) g/dL Vitamin D 25-Hydroxy (30-100) ng/mL MTS Gel Crossmatch Short CBC 02/13/18 02/13/18 02/13/18 Range/Units 11:47 13:55 21:57 WBC (4.0-11.0) th/mm3 Hgb 7.6 L 7.4 L 8.5 L (11.6-15.3) gm/dL Hct 23.8 L 23.8 L 27.3 L (35.0-46.0) % Plt Count (150-450) th/mm3 02/14/18 02/14/18 Range/Units 00:47 03:29 WBC 9.3 (4.0-11.0) th/mm3 Hgb 8.3 L 8.6 L (11.6-15.3) gm/dL Hct 25.7 L 26.3 L (35.0-46.0) % Plt Count 221 (150-450) th/mm3 BMP 02/14/18 03:29 Sodium 135 L Potassium 4.1 Chloride 96 L Carbon Dioxide 30.8 BUN 24 H Creatinine 1.26 H Calcium 7.8 L Liver Function 02/14/18 Range/Units 03:29 Total Bilirubin 0.3 (0.2-1.0) mg/dL AST 22 (15-37) U/L ALT 9 L (10-53) U/L Alkaline Phosphatase 101 (45-117) U/L Albumin 2.7 L (3.4-5.0) g/dL <William,Chandler H - 02/14/18 09:13> Physical Exam Vital signs: Vital Signs 02/13/18 15:27 02/13/18 16:00 02/13/18 17:40 Temperature 98.1 F 97.3 F L Pulse Rate 69 70 Respiratory Rate 18 16 Blood Pressure 103/63 120/61 Pulse Oximetry 93 L 69 L 95 02/13/18 17:59 02/13/18 20:00 02/14/18 00:00 Temperature 97.2 F L 97.7 F 98.2 F Pulse Rate 72 65 88 Respiratory Rate 18 18 18 Blood Pressure 123/72 102/62 108/68 Pulse Oximetry 97 93 L 93 L 02/14/18 02:30 02/14/18 04:00 02/14/18 08:00 Temperature 98.5 F Pulse Rate 98 H 94 H Respiratory Rate 16 18 Blood Pressure 118/66 Pulse Oximetry 93 L 94 L 02/14/18 08:42 02/14/18 13:39 Temperature 97.4 F L Pulse Rate 94 H Respiratory Rate 18 Blood Pressure 127/64 Pulse Oximetry 92 L 96 Intake & Output 02/13/18 02/14/18 02/14/18 18:59 06:59 18:59 Intake Total 440 / 440 200 / 200 120 / 120 Output Total 800 / 800 325 / 325 Balance -360 / -360 -125 / -125 120 / 120 Weight 95 kg Intake: IV 200 / 200 200 / 200 Zosyn 4.5 GM Premix 4.5 gm In 100 / 100 100 ml @ 200 mls/hr IV.SIG Q6H DEMETRA Rx#:[id number] Ancef Inj 2,000 MG In NS Inj 80 100 / 100 200 / 200 ML @ 200 mls/hr IV.SIG Q8H DEMETRA Rx#:[id number] Oral 240 / 240 120 / 120 Intake (Blood Product) Amt 0 / 0 0 / 0 Rbc As-3 Leukoreduced Unit 0 / 0 0 / 0 [id number] Output: Urine 325 / 325 Urine Amount (Catheter) 800 / 800 Indwelling Urethral Catheter 800 / 800 Other: Date of Last Bowel Movement 02/11/18 02/11/18 02/11/18 <Markie Shore - 02/14/18 14:18> Vital Signs 02/13/18 12:00 02/13/18 12:07 02/13/18 12:08 Temperature 99.0 F Pulse Rate 85 77 Respiratory Rate 18 18 16 Blood Pressure 112/69 Pulse Oximetry 97 94 L 02/13/18 12:34 02/13/18 15:27 02/13/18 16:00 Temperature 98.1 F Pulse Rate 69 Respiratory Rate 18 18 Blood Pressure 103/63 Pulse Oximetry 93 L 69 L 02/13/18 17:40 02/13/18 17:59 02/13/18 20:00 Temperature 97.3 F L 97.2 F L 97.7 F Pulse Rate 70 72 65 Respiratory Rate 16 18 18 Blood Pressure 120/61 123/72 102/62 Pulse Oximetry 95 97 93 L 02/14/18 00:00 02/14/18 02:30 02/14/18 04:00 Temperature 98.2 F 98.5 F Pulse Rate 88 98 H Respiratory Rate 18 16 18 Blood Pressure 108/68 118/66 Pulse Oximetry 93 L 93 L 02/14/18 08:00 02/14/18 08:42 Temperature 97.4 F L Pulse Rate 94 H 94 H Respiratory Rate 18 Blood Pressure 127/64 Pulse Oximetry 94 L 92 L Intake & Output 02/13/18 02/14/18 02/14/18 18:59 06:59 18:59 Intake Total 440 / 440 200 / 200 120 / 120 Output Total 800 / 800 325 / 325 Balance -360 / -360 -125 / -125 120 / 120 Weight 95 kg Intake: IV 200 / 200 200 / 200 Zosyn 4.5 GM Premix 4.5 gm In 100 / 100 100 ml @ 200 mls/hr IV.SIG Q6H DEMETRA Rx#:[id number] Ancef Inj 2,000 MG In NS Inj 80 100 / 100 200 / 200 ML @ 200 mls/hr IV.SIG Q8H DEMETRA Rx#:[id number] Oral 240 / 240 120 / 120 Intake (Blood Product) Amt 0 / 0 0 / 0 Rbc As-3 Leukoreduced Unit 0 / 0 0 / 0 [id number] Output: Urine 325 / 325 Urine Amount (Catheter) 800 / 800 Indwelling Urethral Catheter 800 / 800 Other: Date of Last Bowel Movement 02/11/18 02/11/18 02/11/18 <Chandler Thomas - 02/14/18 09:56> Narrative: GENERAL: Elderly female lying in bed asleep with at bedside in no acute distress. SKIN: Warm and dry. Pale appearing. No rash. HEENT: Atraumatic, normocephalic with extraocular motions intact. No rhinorrhea. No visible lymphadenopathy or jugulovenous distension appreciated. CARDIOVASCULAR: Irregular rate and rhythm consistent with atrial fibrillation. No obvious murmurs, gallops, or rubs. 2+ pulses in all four extremities. RESPIRATORY: Clear to anterior auscultation bilaterally with no crackles, wheezes, or rhonchi. No increased work of breathing. GASTROINTESTINAL: Abdomen soft, non-tender, nondistended with positive bowel sounds. No masses appreciated. MUSCULOSKELETAL: No cyanosis or edema. No right calf tenderness. LLE: Left lower extremity in leg immobilizer. Range of motion intact at the ankle and digits. Sensation intact throughout the lower extremity. Appropriate capillary refill at the digits. Left hip incision sterilely bandaged and appears clean, dry, and intact without signs of hemorrhage or infection at this time. NEURO/PSYCH: Afocal. Awake, alert, and oriented x3. Normal speech and judgement. Patient appears more fatigued. <Chandler Thomas - 02/14/18 09:56> - Urinary Catheter Management Indwelling Urethral Catheter Cath placed during this visit: no <Markie Shore - 02/14/18 14:18> no <Chandler Thomas - 02/14/18 13:07> Assessment and Plan - Assessment (1) Closed hip fracture Code(s): S72.009A - Fracture of unspecified part of neck of unspecified femur, initial encounter for closed fracture Status: Acute (2) Cellulitis Code(s): L03.90 - Cellulitis, unspecified Status: Acute (3) Enterococcus UTI Code(s): N39.0 - Urinary tract infection, site not specified; B95.2 - Enterococcus as the cause of diseases classified elsewhere Status: Acute (4) Constipation Code(s): K59.00 - Constipation, unspecified Status: Acute (5) Lung consolidation Code(s): J18.1 - Lobar pneumonia, unspecified organism Status: Acute (6) Elevated serum creatinine Code(s): R79.89 - Other specified abnormal findings of blood chemistry Status : Acute (7) Bone metastases Code(s): C79.51 - Secondary malignant neoplasm of bone Status: Chronic (8) Chronic anemia Code(s): D64.9 - Anemia, unspecified Status: Chronic (9) CHF (congestive heart failure) Code(s): I50.9 - Heart failure, unspecified Status: Chronic (10) Hypertension Code(s): I10 - Essential (primary) hypertension Status: Chronic (11) Neuropathy Code(s): G62.9 - Polyneuropathy, unspecified Status: Chronic (12) A-fib Code(s): I48.91 - Unspecified atrial fibrillation Status: Chronic (13) Diabetes Code(s): E11.9 - Type 2 diabetes mellitus without complications Status: Chronic (14) Hypothyroidism Code(s): E03.9 - Hypothyroidism, unspecified Status: Acute (15) Nutrition, metabolism, and development symptoms Code(s): R63.8 - Other symptoms and signs concerning food and fluid intake Status: Acute <Markie Shore - 02/14/18 14:18> (1) Closed hip fracture Code(s): S72.009A - Fracture of unspecified part of neck of unspecified femur, initial encounter for closed fracture Status: Acute Plan: Status post hemiarthroplasty of left hip performed 02/13/[address] Turcios -Vitamin D: Pending -Ice and elevated LLE -Physical therapy consulted to evaluate and treat -Plan for discharge to rehab, form completed and provided to CM who will assist with placement -Incentive spirometry Medications: -Pain control with Ferriday 5/325 1-2 tablets based on pain scale -Morphine every 3 hours as needed for breakthrough pain -Continue Xarelto (2) Cellulitis Code(s): L03.90 - Cellulitis, unspecified Status: Acute Plan: Lower extremity cellulitis -US: Bilateral lower extremity ultrasound negative for DVT -No areas of fluctuance, abscess, or pus. -Monitor daily labs and vitals Medications: -Ancef (02/11/18- ) -Zosyn (02/11/18-02/13/18) -Plan to discharge on Keflex 500mg Q6H for a total of 10 days (3) Enterococcus UTI Code(s): N39.0 - Urinary tract infection, site not specified; B95.2 - Enterococcus as the cause of diseases classified elsewhere Status: Acute Plan: Patient found to have group D enterococcus species on urine culture. Patient does report history of frequent UTIs. -UA: Trace leukocyte esterase, rare bacteria, few mucus, otherwise negative Urine culture: Group D enterococcus with gram-negative rods; sensitivities to follow -Blood cultures: Negative to date -Patient currently not septic Medications: -Ancef as above (4) Constipation Code(s): K59.00 - Constipation, unspecified Status: Acute Plan: Patient reporting constipation. -Patient's baseline consist of intermittent episodes of loose stools as well as episodes of constipation likely secondary to her colon malignancy -Patient currently on narcotic pain control contributing to constipation Medications: -Constipation protocol in place (5) Lung consolidation Code(s): J18.1 - Lobar pneumonia, unspecified organism Status: Acute Plan: Asymptomatic May consider repeat PA and lateral chest x-ray if diagnosis continues to be unclear -Chest x-ray single AP: Left base consolidation and diffuse infiltrate elsewhere -Supplemental oxygen as needed to keep O2 saturation at 93% -Incentive spirometry -Albuterol PRN for SOB Medications: -Continue IV antibiotics as above (6) Elevated serum creatinine Code(s): R79.89 - Other specified abnormal findings of blood chemistry Status : Acute Plan: Creatinine 1.15 on admission, baseline approximately 0.7-0.9 per chart review -Cr elevated to 1.2 -Avoid NSAIDs -Careful IV fluid administration secondary to CHF -Continue to monitor (7) Bone metastases Code(s): C79.51 - Secondary malignant neoplasm of bone Status: Chronic Plan: -History of colon cancer, possible bone metastases noted on imaging -Patient has just left rehab after previous hospitalization -Scheduled to meet with Dr. Kellogg for PET scan as outpatient (8) Chronic anemia Code(s): D64.9 - Anemia, unspecified Status: Chronic Plan: Patient with chronic anemia, baseline approximately 8-10 per chart review -2 units PRBCs transfused with 20 mg Lasix IV after each unit -Per chart review, only 1 unit PRBC administered with IV Lasix postoperatively -Second unit PRBC for continued anemia with IV Lasix 02/13/18 -Hemoglobin at baseline, continue to monitor (9) CHF (congestive heart failure) Code(s): I50.9 - Heart failure, unspecified Status: Chronic Plan: Recent diagnosis of CHF per home healthcare via chest x-ray and labs done today No signs of acute exacerbation Medications: -Continue prior medication of Lasix 40 mg daily (10) Hypertension Code(s): I10 - Essential (primary) hypertension Status: Chronic Plan: Medications: -Continue home meds; diltiazem, Lasix, metoprolol (11) Neuropathy Code(s): G62.9 - Polyneuropathy, unspecified Status: Chronic Plan: Medications: -Pain management as above -Continue home meds; gabapentin and Effexor (12) A-fib Code(s): I48.91 - Unspecified atrial fibrillation Status: Chronic Plan: Patient with chronic Atrial fibrillation s/p ablation x 2, follows w/ -Continue telemetry Medications: -Continue diltiazem and Xarelto (13) Diabetes Code(s): E11.9 - Type 2 diabetes mellitus without complications Status: Chronic Plan: Managed with insulin -Patient refusing medications Medications: -Continue home medications: Lantus 15 units QHS (14) Hypothyroidism Code(s): E03.9 - Hypothyroidism, unspecified Status: Acute Plan: Medications: -Continue home Levothyroxine 50mcg (15) Nutrition, metabolism, and development symptoms Code(s): R63.8 - Other symptoms and signs concerning food and fluid intake Status: Acute Plan: Electrolytes: Follow-up BMP and replete as needed Nutrition: Diabetic diet as tolerated DVT prophylaxis: Restarted anticoagulation with Xarelto 02/13/18 Prophylaxis: Pain management as above, Albuterol PRN for SOB, Incentive spirometry PT to evaluate and treat CM consulted to assist with placement, rehabilitation form completed <Chandler Thomas - 02/14/18 13:07> - Assessment and Plan 72-year-old female, history of diabetes, recent hospitalization for pneumonia and severe sepsis, colon cancer with likely bone metastases, chronic anemia, CHF , hypertension, neuropathy, atrial fibrillation, hypothyroidism, presents with displaced left femoral neck fracture and leg erythema. She is s/p uncomplicated L hip hemiarthroplasty. <Chandler Thomas - 02/14/18 09:13> - Attending Attestation Patient examined independently and case discussed with resident physician I have read the above note and agree with the assessment/plan as discussed with me I was involved in all medical decision making for this patient Markie Shore MD <Markie Shore - 02/14/18 14:18> <Chandler Thomas H - Last Filed: 02/14/18 13:07> (1) Closed hip fracture Qualifiers: Encounter type: initial encounter Laterality: left Qualified Code(s): S72.002A - Fracture of unspecified part of neck of left femur, initial encounter for closed fracture <Markie Shore - Last Filed: 02/14/18 14:18> (1) Closed hip fracture Qualifiers: Encounter type: initial encounter Laterality: left Qualified Code(s): S72.002A - Fracture of unspecified part of neck of left femur, initial encounter for closed fracture <Chandler Thomas H - Last Filed: 02/14/18 13:07> (1) Closed hip fracture Qualifiers: Encounter type: initial encounter Laterality: left Qualified Code(s): S72.002A - Fracture of unspecified part of neck of left femur, initial encounter for closed fracture <Markie Shore - Last Filed: 02/14/18 14:18> (1) Closed hip fracture Qualifiers: Encounter type: initial encounter Laterality: left Qualified Code(s): S72.002A - Fracture of unspecified part of neck of left femur, initial encounter for closed fracture
[2018-02-14] MEDS: Venlafaxine XR 75 MG Capsule PO SCH (11:13)
[2018-02-14] MEDS: Metoprolol Tartrate 50 MG Tablet PO SCH (11:13)
[2018-02-14] MEDS: Amiodarone 200 MG Tablet PO SCH (11:14)
[2018-02-14] MEDS: Multivitamin/Minerals Therapeutic Tablet PO SCH ×2 (11:14→22:24)
[2018-02-14] MEDS: Furosemide 40 MG Tablet PO SCH (11:15)
[2018-02-14] MEDS: Gabapentin 400 MG Capsule PO SCH ×3 (11:15→18:43)
[2018-02-14] MEDS: dilTIAZem CD 180 MG Capsule PO SCH (11:15)
[2018-02-14] MEDS: Rivaroxaban 10 MG Tablet PO SCH (11:15)
--- NOTE | 2018-02-14 11:27 | P.PNOP ---
Subjective Interval history: The patient is resting comfortably in bed in no acute distress. The patient's is at bedside. The patient reports having some left hip pain this morning. The patient had quite a bit of discomfort last night that limited her sleep. Physical Exam Vital signs: Vital Signs 02/13/18 12:00 02/13/18 12:07 02/13/18 12:08 Temperature 99.0 F Pulse Rate 85 77 Respiratory Rate 18 18 16 Blood Pressure 112/69 Pulse Oximetry 97 94 L 02/13/18 12:34 02/13/18 15:27 02/13/18 16:00 Temperature 98.1 F Pulse Rate 69 Respiratory Rate 18 18 Blood Pressure 103/63 Pulse Oximetry 93 L 69 L 02/13/18 17:40 02/13/18 17:59 02/13/18 20:00 Temperature 97.3 F L 97.2 F L 97.7 F Pulse Rate 70 72 65 Respiratory Rate 16 18 18 Blood Pressure 120/61 123/72 102/62 Pulse Oximetry 95 97 93 L 02/14/18 00:00 02/14/18 02:30 02/14/18 04:00 Temperature 98.2 F 98.5 F Pulse Rate 88 98 H Respiratory Rate 18 16 18 Blood Pressure 108/68 118/66 Pulse Oximetry 93 L 93 L 02/14/18 08:00 02/14/18 08:42 Temperature 97.4 F L Pulse Rate 94 H 94 H Respiratory Rate 18 Blood Pressure 127/64 Pulse Oximetry 94 L 92 L Intake & Output 02/13/18 02/14/18 02/14/18 18:59 06:59 18:59 Intake Total 440 / 440 200 / 200 120 / 120 Output Total 800 / 800 325 / 325 Balance -360 / -360 -125 / -125 120 / 120 Weight 95 kg Intake: IV 200 / 200 200 / 200 Zosyn 4.5 GM Premix 4.5 gm In 100 / 100 100 ml @ 200 mls/hr IV.SIG Q6H DEMETRA Rx#:[id number] Ancef Inj 2,000 MG In NS Inj 80 100 / 100 200 / 200 ML @ 200 mls/hr IV.SIG Q8H DEMETRA Rx#:[id number] Oral 240 / 240 120 / 120 Intake (Blood Product) Amt 0 / 0 0 / 0 Rbc As-3 Leukoreduced Unit 0 / 0 0 / 0 [id number] Output: Urine 325 / 325 Urine Amount (Catheter) 800 / 800 Indwelling Urethral Catheter 800 / 800 Other: Date of Last Bowel Movement 02/11/18 02/11/18 02/11/18 Narrative: The patient's dressing is clean, dry, and intact. EHL/TA/G are intact. 2+ pedal pulse. The patient's calf is soft and nontender. Sensation is intact to light touch distally. The patient's knee immobilizer is in place. - Urinary Catheter Management Indwelling Urethral Catheter Cath placed during this visit: no Results - Labs CBC & Chem 7: 02/14/18 03:29 02/14/18 03:29 Laboratory Results - last 24 hr 02/12/18 02/13/18 02/13/18 09:28 11:47 11:47 WBC RBC Hgb 7.6 L Hct 23.8 L MCV MCH MCHC RDW Plt Count MPV Neut % (Auto) Lymph % (Auto) [place] % (Auto) Eos % (Auto) Baso % (Auto) Neut # (Auto) Lymph # (Auto) [place] # (Auto) Eos # (Auto) Baso # (Auto) WBC Differential Differential Comment Sodium Potassium Chloride Carbon Dioxide Anion Gap BUN Creatinine Estimated GFR POC Glucose Random Glucose Calcium Total Bilirubin AST ALT Alkaline Phosphatase Total Protein Albumin Vitamin D 25-Hydroxy 7.2 L Blood Type O Positive Antibody Screen Negative MTS Gel Crossmatch See Detail Bld Prod Order Comment 02/13/18 02/13/18 02/13/18 13:55 15:23 20:30 WBC RBC Hgb 7.4 L Hct 23.8 L MCV MCH MCHC RDW Plt Count MPV Neut % (Auto) Lymph % (Auto) [place] % (Auto) Eos % (Auto) Baso % (Auto) Neut # (Auto) Lymph # (Auto) [place] # (Auto) Eos # (Auto) Baso # (Auto) WBC Differential Differential Comment Sodium Potassium Chloride Carbon Dioxide Anion Gap BUN Creatinine Estimated GFR POC Glucose 143 H Random Glucose Calcium Total Bilirubin AST ALT Alkaline Phosphatase Total Protein Albumin Vitamin D 25-Hydroxy Blood Type Antibody Screen MTS Gel Crossmatch See Detail Bld Prod Order Comment Cancelled 02/13/18 02/14/18 02/14/18 21:57 00:47 03:29 WBC 9.3 RBC 3.45 L Hgb 8.5 L 8.3 L 8.6 L Hct 27.3 L 25.7 L 26.3 L MCV 76.0 L MCH 24.9 L MCHC 32.7 RDW 19.7 H Plt Count 221 MPV 8.1 Neut % (Auto) 68.7 Lymph % (Auto) 14.3 [place] % (Auto) 16.1 H Eos % (Auto) 0.4 Baso % (Auto) 0.5 Neut # (Auto) 6.4 Lymph # (Auto) 1.3 [place] # (Auto) 1.5 H Eos # (Auto) 0.0 Baso # (Auto) 0.0 WBC Differential . Differential Comment Auto diff final Sodium Potassium Chloride Carbon Dioxide Anion Gap BUN Creatinine Estimated GFR POC Glucose Random Glucose Calcium Total Bilirubin AST ALT Alkaline Phosphatase Total Protein Albumin Vitamin D 25-Hydroxy Blood Type Antibody Screen MTS Gel Crossmatch Bld Prod Order Comment 02/14/18 03:29 WBC RBC Hgb Hct MCV MCH MCHC RDW Plt Count MPV Neut % (Auto) Lymph % (Auto) [place] % (Auto) Eos % (Auto) Baso % (Auto) Neut # (Auto) Lymph # (Auto) [place] # (Auto) Eos # (Auto) Baso # (Auto) WBC Differential Differential Comment Sodium 135 L Potassium 4.1 Chloride 96 L Carbon Dioxide 30.8 Anion Gap 8 BUN 24 H Creatinine 1.26 H Estimated GFR 42 L POC Glucose Random Glucose 91 Calcium 7.8 L Total Bilirubin 0.3 AST 22 ALT 9 L Alkaline Phosphatase 101 Total Protein 7.4 Albumin 2.7 L Vitamin D 25-Hydroxy Blood Type Antibody Screen MTS Gel Crossmatch Bld Prod Order Comment Microbiology 02/11/18 15:25 Blood - Peripheral Aerobic Blood Culture - Preliminary No growth in 3 days 02/11/18 15:25 Blood - Peripheral Anaerobic Blood Culture - Preliminary No growth in 3 days 02/11/18 15:20 Blood - Peripheral Aerobic Blood Culture - Preliminary No growth in 3 days 02/11/18 15:20 Blood - Peripheral Anaerobic Blood Culture - Preliminary No growth in 3 days 02/11/18 15:10 Catheterized Urine Urine Culture - Preliminary Group D Enterococcus gram negative rods - Procedures Left hip hemiarthroplasty Assessment and Plan - Assessment and Plan POD #2: Left hip hemiarthroplasty 1. Weightbearing as tolerated on [left] lower extremity. 2. Xarelto for DVT prophylaxis. 3. Ice as needed for swelling. 4. Stable per ortho for discharge to [facility] when appropriate per medical. 5. The patient will follow up with Dr. Dyson and/or JULISA Bloom as previously scheduled. 6. We will follow the pathology report for any metastatic findings about the femoral head.
[2018-02-14 12:26] LABS: Hematocrit 25.9 % (35.0-46.0); Hemoglobin 8.2 gm/dL (11.6-15.3)
--- NOTE | 2018-02-14 18:18 | MB ---
cc: Dre Lewis MD DATE: 02/14/2018 REQUESTING PHYSICIAN: Chandler Thomas. REASON FOR CONSULTATION: Patient with hip fracture and found to have Klebsiella and VRE UTI, antibiotic management. HISTORY OF PRESENT ILLNESS: This is a 72-year-old white female who has multiple medical problems. The patient was in rehab recently and was discharged and while at home, she fell and broke her left hip. She was admitted for left hip surgery, which was performed on 02/12/2018. Urine culture was performed on 02/11/2018 and the culture now comes back showing Enterococcus faecalis, VRE and Klebsiella pneumoniae. The colony count for the Klebsiella is less than 10,000 and colony count for the Enterococcus faecalis VRE is greater than 100,000. The patient is somewhat somnolent, but she arouses easily and responds appropriately. Her is at bedside. He knows that she has had problems with itching of the skin. He states that this problem is not new. He reports that she gets sleepy when she is given medication for the itching. She has no fever or chills, nausea or vomiting. PAST MEDICAL HISTORY: Diabetes mellitus, hypertension, hypothyroidism, neuropathy, overactive bladder, history of bone metastases, history of Clostridium difficile. PAST SURGICAL HISTORY: Hernia repair, appendectomy, colectomy, . ALLERGIES: 1. CODEINE. 2. SULFA. MEDICATIONS: 1. Tylenol p.r.n. 2. [place] 5. 3. Milk of magnesia. 4. Cordarone. 5. Cefazolin. 6. Cardizem. 7. Benadryl. 8. Lasix. 9. Neurontin. 10. Synthroid. 11. Lopressor. 12. Potassium. 13. Pravachol. 14. Xarelto. 15. Elsa-Colace. 16. Effexor XR. SOCIAL HISTORY: The patient is . No tobacco, no alcohol, no illicit drug abuse. FAMILY HISTORY: Noncontributory. REVIEW OF SYSTEMS: All systems have been reviewed and is pertinent for left hip pain and itching of the skin. Otherwise, negative. PHYSICAL EXAMINATION: GENERAL: This is a frail female who is in no acute distress. She is somnolent, but arousable and responds appropriately. VITAL SIGNS: Includes temperature 97.4, BP 127/64, respirations 18, heart rate 94. HEENT: Extraocular movements are grossly intact. Pupils reactive to light. No icterus. Oropharynx moist mucosa without lesions. NECK: Supple without adenopathy. LUNGS: Clear breath sounds bilaterally. HEART: Regular S1 and S2. No murmurs, rubs or gallops. ABDOMEN: Obese, decreased bowel sounds, soft, nontender. RECTAL: Not performed. EXTREMITIES: Left hip surgical incision, which appears intact. No erythema. Very minimal edema. Trace edema of the left distal tibia. SKIN: No diffuse rash. NEUROLOGIC: No gross focal finding. PSYCHIATRIC: The patient is calm and cooperative. LABORATORY DATA: WBC 9.3, platelets 221, hemoglobin 8.2, creatinine 1.26, BUN 24, sodium 135. IMPRESSION: 1. Urinary tract infection due to Enterococcus faecalis with vancomycin-resistant Enterococci. Urine culture also had Klebsiella pneumoniae, but chronic, less than 10,000. 2. Left hip hemiarthroplasty for left displaced femoral neck fracture. RECOMMENDATIONS: 1. Begin linezolid for the VRE and repeat the urine culture in a few days to check for clearance. 2. Every attempt should be made to avoid contact of the urine with the surgical site at the left hip. 3. Discontinue cefazolin. Thank you for this consultation. I will follow the patient's urine culture results and her clinical response and will make further recommendations and follow up if necessary. Dre Lewis MD FFD/ct , 05:19 PM , 05:33 PM
[2018-02-14] MEDS: Linezolid 600 MG Tablet PO SCH (22:23)
[2018-02-14] MEDS: Insulin Glargine Inj 1,000 UNITS/10 ML Vial SQ SCH (22:24)
[2018-02-15] MEDS: Levothyroxine 50 MCG Tablet PO SCH (05:26)
[2018-02-15] MEDS: Sod Chloride 0.9% Inj 1,000 ML IV.CONT SCH ×2 (06:01→16:35)
[2018-02-15 06:27] LABS: Baso % (Auto) 0.7 % (0.0-2.0); Eos # (Auto) 0.3 th/mm3 (0.0-0.4); Hematocrit 26.6 % (35.0-46.0); Hemoglobin 8.5 gm/dL (11.6-15.3); Lymph % (Auto) 14.1 % (9.0-44.0); Mean Corpuscular Hemoglobin 25.1 pg (27.0-34.0); Mean Corpuscular Volume 78.6 fL (80.0-100.0); Mono # (Auto) 0.9 th/mm3 (0.0-0.9); Mono % (Auto) 12.4 % (0.0-8.0); Neut % (Auto) 68.8 % (16.0-70.0); Platelet Count 204 th/mm3 (150-450); Red Blood Count 3.39 mil/mm3 (4.00-5.30); Red Cell Distribution Width 19.9 % (11.6-17.2); White Blood Count 7.2 th/mm3 (4.0-11.0)
[2018-02-15 06:47] LABS: Calcium 8.1 mg/dL (8.5-10.1); Carbon Dioxide 31.7 meq/L (21.0-32.0)
[2018-02-15] MEDS: dilTIAZem CD 180 MG Capsule PO SCH (09:15)
[2018-02-15] MEDS: Linezolid 600 MG Tablet PO SCH ×2 (09:15→22:04)
[2018-02-15] MEDS: Furosemide 40 MG Tablet PO SCH (09:15)
[2018-02-15] MEDS: Amiodarone 200 MG Tablet PO SCH (09:15)
[2018-02-15] MEDS: Metoprolol Tartrate 50 MG Tablet PO SCH (09:15)
[2018-02-15] MEDS: Gabapentin 400 MG Capsule PO SCH ×3 (09:15→17:37)
[2018-02-15] MEDS: Multivitamin/Minerals Therapeutic Tablet PO SCH ×2 (09:15→22:04)
--- NOTE | 2018-02-15 09:52 | P.PNFP ---
Subjective Interval history: Patient seen and examined this morning. No acute events overnight per nursing staff. Patient states that she feels "a lot better this morning." She states that her left lower extremity pain has improved as well as her neuropathic pain during this hospitalization. Her and the patient also notes that with her Lasix administration, her lower extremity edema has greatly improved. Patient was initially started on this medication as it was listed as a home medication for her CHF., however both patient and states she was not on this previously but would like to continue on the medication. Otherwise she has no acute complaints. Patient continues to endorse constipation, however she does not feel like she needs to have a bowel movement or is uncomfortable at this time. She denies a complete review of systems including but not shortness of breath, chest pain, NVD, abdominal pain, or right calf tenderness. <Chandler Thomas H - 02/15/18 10:16> Results - Labs Result diagrams: 02/15/18 04:35 02/15/18 04:35 <Markie Shore - 02/15/18 16:13> Abnormal lab results 02/14/18 02/15/18 02/15/18 Range/Units 19:44 04:35 04:35 RBC 3.39 L (4.00-5.30) mil/mm3 Hgb 8.5 L (11.6-15.3) gm/dL Hct 26.6 L (35.0-46.0) % MCV 78.6 L (80.0-100.0) fL MCH 25.1 L (27.0-34.0) pg RDW 19.9 H (11.6-17.2) % [place] % (Auto) 12.4 H (0.0-8.0) % Sodium 135 L (136-145) meq/L Chloride 97 L (98-107) meq/L BUN 20 H (7-18) mg/dL Estimated GFR 59 L (>89) mL/min POC Glucose 127 H (68-110) mg/dl Random Glucose 72 L (74-106) mg/dL Calcium 8.1 L (8.5-10.1) mg/dL Short CBC 02/15/18 Range/Units 04:35 WBC 7.2 (4.0-11.0) th/mm3 Hgb 8.5 L (11.6-15.3) gm/dL Hct 26.6 L (35.0-46.0) % Plt Count 204 (150-450) th/mm3 BMP 02/15/18 04:35 Sodium 135 L Potassium 4.0 Chloride 97 L Carbon Dioxide 31.7 BUN 20 H Creatinine 0.93 Calcium 8.1 L <SilvianoMarkie - 02/15/18 16:13> Abnormal lab results 02/14/18 02/14/18 02/15/18 Range/Units 11:45 19:44 04:35 RBC 3.39 L (4.00-5.30) mil/mm3 Hgb 8.2 L 8.5 L (11.6-15.3) gm/dL Hct 25.9 L 26.6 L (35.0-46.0) % MCV 78.6 L (80.0-100.0) fL MCH 25.1 L (27.0-34.0) pg RDW 19.9 H (11.6-17.2) % [place] % (Auto) 12.4 H (0.0-8.0) % Sodium (136-145) meq/L Chloride (98-107) meq/L BUN (7-18) mg/dL Estimated GFR (>89) mL/min POC Glucose 127 H (68-110) mg/dl Random Glucose (74-106) mg/dL Calcium (8.5-10.1) mg/dL 02/15/18 Range/Units 04:35 RBC (4.00-5.30) mil/mm3 Hgb (11.6-15.3) gm/dL Hct (35.0-46.0) % MCV (80.0-100.0) fL MCH (27.0-34.0) pg RDW (11.6-17.2) % [place] % (Auto) (0.0-8.0) % Sodium 135 L (136-145) meq/L Chloride 97 L (98-107) meq/L BUN 20 H (7-18) mg/dL Estimated GFR 59 L (>89) mL/min POC Glucose (68-110) mg/dl Random Glucose 72 L (74-106) mg/dL Calcium 8.1 L (8.5-10.1) mg/dL Short CBC 02/14/18 02/15/18 Range/Units 11:45 04:35 WBC 7.2 (4.0-11.0) th/mm3 Hgb 8.2 L 8.5 L (11.6-15.3) gm/dL Hct 25.9 L 26.6 L (35.0-46.0) % Plt Count 204 (150-450) th/mm3 BMP 02/15/18 04:35 Sodium 135 L Potassium 4.0 Chloride 97 L Carbon Dioxide 31.7 BUN 20 H Creatinine 0.93 Calcium 8.1 L <Chandler Thomas H - 02/15/18 09:52> Physical Exam Vital signs: Vital Signs 02/14/18 20:00 02/14/18 20:30 02/15/18 00:00 Temperature 98 F 98.1 F Pulse Rate 80 72 Respiratory Rate 17 17 Blood Pressure 120/72 118/74 Pulse Oximetry 95 97 94 L 02/15/18 00:32 02/15/18 01:47 02/15/18 04:00 Temperature 98.1 F Pulse Rate 88 Respiratory Rate 18 16 17 Blood Pressure 119/70 Pulse Oximetry 95 02/15/18 08:00 02/15/18 11:42 Temperature 97.6 F 98 F Pulse Rate 99 H 70 Respiratory Rate 18 18 Blood Pressure 114/62 105/56 L Pulse Oximetry 94 L 96 Intake & Output 02/14/18 02/15/18 02/15/18 18:59 06:59 18:59 Intake Total 370 / 370 Output Total 1100 / 1100 Balance 370 / 370 -1100 / -1100 Weight 95.2 kg Intake: IV 250 / 250 NS Inj 250 ML @ 15 mls/hr IV. 250 / 250 SIG ONCE [facility] Rx#:[id number] Oral 120 / 120 Output: Urine Amount (Catheter) 1100 / 1100 Female External 1100 / 1100 Other: Date of Last Bowel Movement 02/11/18 02/11/18 <Markie Shore - 02/15/18 16:13> Vital Signs 02/14/18 12:00 02/14/18 13:39 02/14/18 20:00 Temperature 97.6 F 98 F Pulse Rate 104 H 80 Respiratory Rate 18 17 Blood Pressure 132/79 120/72 Pulse Oximetry 18 L 96 95 02/14/18 20:30 02/15/18 00:00 08/25/18 00:32 Temperature 98.1 F Pulse Rate 72 Respiratory Rate 17 18 Blood Pressure 118/74 Pulse Oximetry 97 94 L 02/15/18 01:47 02/15/18 04:00 02/15/18 08:00 Temperature 98.1 F 97.6 F Pulse Rate 88 99 H Respiratory Rate 16 17 18 Blood Pressure 119/70 114/62 Pulse Oximetry 95 94 L Intake & Output 02/14/18 02/15/18 02/15/18 18:59 06:59 18:59 Intake Total 370 / 370 Output Total 1100 / 1100 Balance 370 / 370 -1100 / -1100 Weight 95.2 kg Intake: IV 250 / 250 NS Inj 250 ML @ 15 mls/hr IV. 250 / 250 SIG ONCE [facility] Rx#:[id number] Oral 120 / 120 Output: Urine Amount (Catheter) 1100 / 1100 Female External 1100 / 1100 Other: Date of Last Bowel Movement 02/11/18 02/11/18 <Chandler Thomas - 02/15/18 09:52> Narrative: GENERAL: Elderly female lying in bed watching television with her in no acute distress. SKIN: Warm and dry. Pale appearing, baseline. No rash. HEENT: Atraumatic, normocephalic with extraocular motions intact. No rhinorrhea. No visible lymphadenopathy or jugulovenous distension appreciated. CARDIOVASCULAR: Irregular rate and rhythm consistent with atrial fibrillation. No obvious murmurs, gallops, or rubs. 2+ pulses in all four extremities. RESPIRATORY: Clear to anterior auscultation bilaterally with no crackles, wheezes, or rhonchi. No increased work of breathing. GASTROINTESTINAL: Abdomen soft, non-tender, nondistended with positive bowel sounds. No masses appreciated. MUSCULOSKELETAL: No cyanosis or edema. No right calf tenderness. LLE: Left lower extremity in leg immobilizer. Range of motion intact at the ankle and digits. Sensation intact throughout the lower extremity. Appropriate capillary refill at the digits. 2+ DP/PT pulse. Left hip incision sterilely bandaged and appears clean, dry, and intact without signs of hemorrhage or infection at this time. Incision site with improved surrounding ecchymosis. NEURO/PSYCH: Afocal. Awake, alert, and oriented x3. Normal speech and judgement. Fatigue improved from prior exam. <Chandler Thomas - 02/15/18 10:16> - Urinary Catheter Management Female External Cath placed during this visit: no <Markie Shore 02/15/18 16:13> no <Chandler Thomas - 02/15/18 15:16> Indwelling Urethral Catheter Cath placed during this visit: no <Markie Shore 02/15/18 16:13> no <Chandler Tohmas - 02/15/18 15:16> Assessment and Plan - Assessment (1) Closed hip fracture Code(s): S72.009A - Fracture of unspecified part of neck of unspecified femur, initial encounter for closed fracture Status: Acute (2) Cellulitis Code(s): L03.90 - Cellulitis, unspecified Status: Acute (3) Enterococcus UTI Code(s): N39.0 - Urinary tract infection, site not specified; B95.2 - Enterococcus as the cause of diseases classified elsewhere Status: Acute (4) Constipation Code(s): K59.00 - Constipation, unspecified Status: Acute (5) Lung consolidation Code(s): J18.1 - Lobar pneumonia, unspecified organism Status: Acute (6) Elevated serum creatinine Code(s): R79.89 - Other specified abnormal findings of blood chemistry Status : Resolved (7) Bone metastases Code(s): C79.51 - Secondary malignant neoplasm of bone Status: Chronic (8) Chronic anemia Code(s): D64.9 - Anemia, unspecified Status: Chronic (9) CHF (congestive heart failure) Code(s): I50.9 - Heart failure, unspecified Status: Chronic (10) Hypertension Code(s): I10 - Essential (primary) hypertension Status: Chronic (11) Neuropathy Code(s): G62.9 - Polyneuropathy, unspecified Status: Chronic (12) A-fib Code(s): I48.91 - Unspecified atrial fibrillation Status: Chronic (13) Diabetes Code(s): E11.9 - Type 2 diabetes mellitus without complications Status: Chronic (14) Hypothyroidism Code(s): E03.9 - Hypothyroidism, unspecified Status: Acute (15) Nutrition, metabolism, and development symptoms Code(s): R63.8 - Other symptoms and signs concerning food and fluid intake Status: Acute <Markie Shore 02/15/18 16:13> (1) Closed hip fracture Code(s): S72.009A - Fracture of unspecified part of neck of unspecified femur, initial encounter for closed fracture Status: Acute Plan: Status post hemiarthroplasty of left hip performed 02/13/[address] Turcios -Vitamin D: 7.2 -Ice and elevated LLE -Physical therapy consulted to evaluate and treat -Plan for discharge to rehab, form completed and provided to CM who will assist with placement -Incentive spirometry Medications: -Pain control with [place] 5/325 1-2 tablets based on pain scale -Morphine every 3 hours as needed for breakthrough pain -Vitamin D 50,000 units once a week -Continue Xarelto (2) Cellulitis Code(s): L03.90 - Cellulitis, unspecified Status: Acute Plan: Lower extremity cellulitis -US: Bilateral lower extremity ultrasound negative for DVT -No areas of fluctuance, abscess, or pus. -Monitor daily labs and vitals Medications: -Ancef (02/11/18-02/14/18) -Zosyn (02/11/18-02/13/18) -Linezolid (02/14/18- ) for VRE UTI as below -Lactobacillus 1 capsule twice daily -Plan to discharge on Keflex 500mg Q6H for a total of 10 days (3) Enterococcus UTI Code(s): N39.0 - Urinary tract infection, site not specified; B95.2 - Enterococcus as the cause of diseases classified elsewhere Status: Acute Plan: Patient found to have group D enterococcus species on urine culture. Patient does report history of frequent UTIs. -UA: Trace leukocyte esterase, rare bacteria, few mucus, otherwise negative Urine culture: VRE with Klebsiella; multiple resistances -Blood cultures: Negative to date -Patient currently not septic -Repeat Urine Culture 02/14/18: Pending -ID consulted, appreciate recommendations Medications: -Linezolid 600mg BID (02/14/18- ) -Lactobacillus 1 capsule twice daily (4) Constipation Code(s): K59.00 - Constipation, unspecified Status: Acute Plan: Patient reporting constipation. -Patient's baseline consist of intermittent episodes of loose stools as well as episodes of constipation likely secondary to her colon malignancy -Patient currently on narcotic pain control contributing to constipation Medications: -Constipation protocol in place (5) Lung consolidation Code(s): J18.1 - Lobar pneumonia, unspecified organism Status: Acute Plan: Asymptomatic May consider repeat PA and lateral chest x-ray if diagnosis continues to be unclear -Chest x-ray single AP: Left base consolidation and diffuse infiltrate elsewhere -Supplemental oxygen as needed to keep O2 saturation at 93% -Incentive spirometry -Albuterol PRN for SOB Medications: -Continue IV antibiotics as above (6) Elevated serum creatinine Code(s): R79.89 - Other specified abnormal findings of blood chemistry Status : Resolved Plan: Creatinine 1.15 on admission, baseline approximately 0.7-0.9 per chart review -Cr elevated to 1.2, resolved with oral fluid administration -Avoid NSAIDs -Careful IV fluid administration secondary to CHF -Continue to monitor (7) Bone metastases Code(s): C79.51 - Secondary malignant neoplasm of bone Status: Chronic Plan: -History of colon cancer, possible bone metastases noted on imaging -Patient has just left rehab after previous hospitalization -Scheduled to meet with Dr. Kellogg for PET scan as outpatient (8) Chronic anemia Code(s): D64.9 - Anemia, unspecified Status: Chronic Plan: Patient with chronic anemia, baseline approximately 8-10 per chart review -2 units PRBCs transfused with 20 mg Lasix IV after each unit -Per chart review, only 1 unit PRBC administered with IV Lasix postoperatively -Second unit PRBC for continued anemia with IV Lasix 02/13/18 -Hemoglobin at baseline, continue to monitor (9) CHF (congestive heart failure) Code(s): I50.9 - Heart failure, unspecified Status: Chronic Plan: Recent diagnosis of CHF per home healthcare via chest x-ray and labs done today No signs of acute exacerbation Medications: -Continue prior medication of Lasix 40 mg daily (10) Hypertension Code(s): I10 - Essential (primary) hypertension Status: Chronic Plan: Medications: -Continue home meds; diltiazem, Lasix, metoprolol (11) Neuropathy Code(s): G62.9 - Polyneuropathy, unspecified Status: Chronic Plan: Medications: -Pain management as above -Continue home meds; gabapentin -Hold Effexor due to interaction with Linezolid at this time (12) A-fib Code(s): I48.91 - Unspecified atrial fibrillation Status: Chronic Plan: Patient with chronic Atrial fibrillation s/p ablation x 2, follows w/ -Continue telemetry Medications: -Continue diltiazem and Xarelto (13) Diabetes Code(s): E11.9 - Type 2 diabetes mellitus without complications Status: Chronic Plan: Managed with insulin -Patient refusing medications Medications: -Continue home medications: Lantus 15 units QHS (14) Hypothyroidism Code(s): E03.9 - Hypothyroidism, unspecified Status: Acute Plan: Medications: -Continue home Levothyroxine 50mcg (15) Nutrition, metabolism, and development symptoms Code(s): R63.8 - Other symptoms and signs concerning food and fluid intake Status: Acute Plan: Electrolytes: Follow-up BMP and replete as needed Nutrition: Diabetic diet as tolerated DVT prophylaxis: Restarted anticoagulation with Xarelto 02/13/18 Prophylaxis: Pain management as above, Albuterol PRN for SOB, Incentive spirometry PT to evaluate and treat CM consulted to assist with placement, rehabilitation form completed <Chandler Thomas - 02/15/18 15:15> - Assessment and Plan 72-year-old female, history of diabetes, recent hospitalization for pneumonia and severe sepsis, colon cancer with likely bone metastases, chronic anemia, CHF , hypertension, neuropathy, atrial fibrillation, hypothyroidism, presents with displaced left femoral neck fracture and leg erythema. She is s/p uncomplicated L hip hemiarthroplasty. <Chandler Thomas - 02/15/18 09:52> - Attending Attestation Pt. examined and case discussed with resident physicians. I have read the above note and agree with the assessment and plan as discussed with me. I was involved in all medical decision making for this patient. Markie Shore MD <Markie Shore - 02/15/18 16:13> <Chandler Thomas - Last Filed: 02/15/18 15:15> (1) Closed hip fracture Qualifiers: Encounter type: initial encounter Laterality: left Qualified Code(s): S72.002A - Fracture of unspecified part of neck of left femur, initial encounter for closed fracture <Mely Shorey - Last Filed: 02/15/18 16:13> (1) Closed hip fracture Qualifiers: Encounter type: initial encounter Laterality: left Qualified Code(s): S72.002A - Fracture of unspecified part of neck of left femur, initial encounter for closed fracture <Chandler Thomas - Last Filed: 02/15/18 15:15> (1) Closed hip fracture Qualifiers: Encounter type: initial encounter Laterality: left Qualified Code(s): S72.002A - Fracture of unspecified part of neck of left femur, initial encounter for closed fracture <Markie Shore - Last Filed: 02/15/18 16:13> (1) Closed hip fracture Qualifiers: Encounter type: initial encounter Laterality: left Qualified Code(s): S72.002A - Fracture of unspecified part of neck of left femur, initial encounter for closed fracture
[2018-02-15] MEDS: Senna/Docusate Sodium 8.6/50 MG Tablet PO SCH ×2 (10:30→22:04)
[2018-02-15] MEDS: Rivaroxaban 10 MG Tablet PO SCH (10:36)
--- NOTE | 2018-02-15 10:45 | P.PNOP ---
Subjective Interval history: Patient comfortable. Pain controlled. Family present. OOB sitting in recliner. Physical Exam Vital signs: Vital Signs 02/14/18 12:00 02/14/18 13:39 02/14/18 20:00 Temperature 97.6 F 98 F Pulse Rate 104 H 80 Respiratory Rate 18 17 Blood Pressure 132/79 120/72 Pulse Oximetry 18 L 96 95 02/14/18 20:30 02/15/18 00:00 02/15/18 00:32 Temperature 98.1 F Pulse Rate 72 Respiratory Rate 17 18 Blood Pressure 118/74 Pulse Oximetry 97 94 L 02/15/18 01:47 02/15/18 04:00 02/15/18 08:00 Temperature 98.1 F 97.6 F Pulse Rate 88 99 H Respiratory Rate 16 17 18 Blood Pressure 119/70 114/62 Pulse Oximetry 95 94 L Intake & Output 02/14/18 02/15/18 02/15/18 18:59 06:59 18:59 Intake Total 370 / 370 Output Total 1100 / 1100 Balance 370 / 370 -1100 / -1100 Weight 95.2 kg Intake: IV 250 / 250 NS Inj 250 ML @ 15 mls/hr IV. 250 / 250 SIG ONCE [facility] Rx#:[id number] Oral 120 / 120 Output: Urine Amount (Catheter) 1100 / 1100 Female External 1100 / 1100 Other: Date of Last Bowel Movement 02/11/18 02/11/18 Narrative: Left hip dressing C/D/I calves soft negative homans NVI - Urinary Catheter Management Indwelling Urethral Catheter Cath placed during this visit: no Female External Cath placed during this visit: no Results - Labs CBC & Chem 7: 02/15/18 04:35 02/15/18 04:35 Laboratory Results - last 24 hr 02/14/18 02/14/18 02/15/18 11:45 19:44 04:35 WBC 7.2 RBC 3.39 L Hgb 8.2 L 8.5 L Hct 25.9 L 26.6 L MCV 78.6 L MCH 25.1 L MCHC 32.0 RDW 19.9 H Plt Count 204 MPV 8.0 Neut % (Auto) 68.8 Lymph % (Auto) 14.1 [place] % (Auto) 12.4 H Eos % (Auto) 4.0 Baso % (Auto) 0.7 Neut # (Auto) 5.0 Lymph # (Auto) 1.0 [place] # (Auto) 0.9 Eos # (Auto) 0.3 Baso # (Auto) 0.0 WBC Differential . Differential Comment Auto diff final Sodium Potassium Chloride Carbon Dioxide Anion Gap BUN Creatinine Estimated GFR POC Glucose 127 H Random Glucose Calcium 02/15/18 04:35 WBC RBC Hgb Hct MCV MCH MCHC RDW Plt Count MPV Neut % (Auto) Lymph % (Auto) [place] % (Auto) Eos % (Auto) Baso % (Auto) Neut # (Auto) Lymph # (Auto) [place] # (Auto) Eos # (Auto) Baso # (Auto) WBC Differential Differential Comment Sodium 135 L Potassium 4.0 Chloride 97 L Carbon Dioxide 31.7 Anion Gap 6 BUN 20 H Creatinine 0.93 Estimated GFR 59 L POC Glucose Random Glucose 72 L Calcium 8.1 L Microbiology 02/14/18 20:00 Random Urine Urine Culture - Preliminary No growth in 24 hours 02/11/18 15:10 Catheterized Urine Urine Culture - Final Enterococcus faecalis VRE Klebsiella pneumoniae 02/11/18 15:25 Blood - Peripheral Aerobic Blood Culture - Preliminary No growth in 3 days 02/11/18 15:25 Blood - Peripheral Anaerobic Blood Culture - Preliminary No growth in 3 days 02/11/18 15:20 Blood - Peripheral Aerobic Blood Culture - Preliminary No growth in 3 days 02/11/18 15:20 Blood - Peripheral Anaerobic Blood Culture - Preliminary No growth in 3 days - Procedures Left hip hemiarthroplasty Assessment and Plan - Assessment and Plan POD #3: Left hip hemiarthroplasty 1. Weightbearing as tolerated on [left] lower extremity. 2. Xarelto for DVT prophylaxis. 3. Ice as needed for swelling. 4. Stable per ortho for discharge to [facility] when appropriate per medical. 5. The patient will follow up with Dr. Dyson and/or JULISA Bloom as previously scheduled. 6. We will follow the pathology report for any metastatic findings about the femoral head.
[2018-02-15] MEDS: Lactobacillus Acidophilus/L. Spores Tablet PO SCH ×2 (11:48→22:04)
[2018-02-15] MEDS: Insulin Glargine Inj 1,000 UNITS/10 ML Vial SQ SCH (23:24)
[2018-02-16] MEDS: Sod Chloride 0.9% Inj 1,000 ML IV.CONT SCH ×2 (06:13→16:37)
[2018-02-16] MEDS: Levothyroxine 50 MCG Tablet PO SCH (06:14)
--- NOTE | 2018-02-16 07:36 | P.PNOP ---
Subjective Interval history: Patient comfortable. Pain controlled. Spouse at bedside. Physical Exam Vital signs: Vital Signs 02/15/18 08:00 02/15/18 11:42 02/15/18 16:00 Temperature 97.6 F 98 F 97.4 F L Pulse Rate 99 H 70 62 Respiratory Rate 18 18 18 Blood Pressure 114/62 105/56 L 110/58 L Pulse Oximetry 94 L 96 94 L 02/15/18 19:13 02/15/18 20:00 02/15/18 23:16 Temperature 98.0 F 97.6 F Pulse Rate 82 86 91 H Respiratory Rate 17 17 Blood Pressure 113/62 116/59 L Pulse Oximetry 93 L 98 97 02/16/18 00:00 02/16/18 00:02 02/16/18 03:19 Temperature 97.4 F L Pulse Rate 79 78 Respiratory Rate 18 18 Blood Pressure 114/56 L Pulse Oximetry 95 02/16/18 07:13 Temperature Pulse Rate 91 H Respiratory Rate 18 Blood Pressure Pulse Oximetry Intake & Output 02/15/18 02/16/18 02/16/18 18:59 06:59 18:59 Intake Total 1330 / 1330 Output Total 1500 / 1500 Balance -170 / -170 Weight 95.2 kg Intake: Oral 1330 / 1330 Output: Urine 1500 / 1500 Other: # Voids 3 Date of Last Bowel Movement 02/11/18 # Bowel Movements 0 Narrative: Left hip dressing C/D/I calves soft negative Homans knee immobilizer in place NVI . - Urinary Catheter Management Indwelling Urethral Catheter Cath placed during this visit: no Female External Cath placed during this visit: no Results - Labs CBC & Chem 7: 02/15/18 04:35 02/15/18 04:35 Laboratory Results - last 24 hr 02/15/18 20:28 POC Glucose 140 H Microbiology 02/11/18 15:25 Blood - Peripheral Aerobic Blood Culture - Preliminary No growth in 4 days 02/11/18 15:25 Blood - Peripheral Anaerobic Blood Culture - Preliminary No growth in 4 days 02/11/18 15:20 Blood - Peripheral Aerobic Blood Culture - Preliminary No growth in 4 days 02/11/18 15:20 Blood - Peripheral Anaerobic Blood Culture - Preliminary No growth in 4 days 02/14/18 20:00 Random Urine Urine Culture - Preliminary No growth in 24 hours - Procedures Left hip hemiarthroplasty Assessment and Plan - Assessment and Plan POD #4: Left hip hemiarthroplasty 1. Weightbearing as tolerated on [left] lower extremity. 2. Xarelto for DVT prophylaxis. 3. Ice as needed for swelling. 4. Stable per ortho for discharge to [facility] when appropriate per medical. 5. The patient will follow up with Dr. Dyson and/or JULISA Bloom as previously scheduled. 6. Pathology report for femoral head demontrates : INTRAMEDULLARY HEMORRHAGE AND FEATURES CONSISTENT WITH A FRACTURE SITE. MILD TO MODERATE OSTEOPENIA.
[2018-02-16] MEDS: Gabapentin 400 MG Capsule PO SCH ×4 (09:16→17:26)
[2018-02-16] MEDS: Senna/Docusate Sodium 8.6/50 MG Tablet PO SCH ×2 (09:16→21:55)
[2018-02-16] MEDS: Furosemide 40 MG Tablet PO SCH (09:16)
[2018-02-16] MEDS: Lactobacillus Acidophilus/L. Spores Tablet PO SCH ×2 (09:17→21:55)
[2018-02-16] MEDS: Rivaroxaban 10 MG Tablet PO SCH ×2 (09:17→10:21)
[2018-02-16] MEDS: Amiodarone 200 MG Tablet PO SCH (09:17)
[2018-02-16] MEDS: Metoprolol Tartrate 50 MG Tablet PO SCH (09:17)
[2018-02-16] MEDS: dilTIAZem CD 180 MG Capsule PO SCH (09:17)
[2018-02-16] MEDS: Linezolid 600 MG Tablet PO SCH ×2 (09:17→21:55)
[2018-02-16] MEDS: Multivitamin/Minerals Therapeutic Tablet PO SCH ×2 (09:17→21:55)
--- NOTE | 2018-02-16 11:46 | P.PNFP ---
Subjective Interval history: Patient seen and examined this morning by medical team. No acute events overnight per nursing staff. Patient states she continues to have pain in her upper left leg, but otherwise is doing well. She states the pain is exacerbated during physical therapy when sitting up in chair, but is controlled on her pain medication. Otherwise she reports that she is doing well. Patient denies having a bowel movement, but does endorse passing gas. She declines further escalation of her bowel regimen. She denies complete review of systems including but not limited to any fever, chills, shortness of breath, chest pain , NVD, abdominal pain, or calf tenderness. Discussed with patient possible discharge to [facility] pending clinical course for continued rehabilitation which both her and her are agreeable to. <Chandler Thomas H - 02/16/18 11:46> Results - Labs Result diagrams: 02/15/18 04:35 02/15/18 04:35 <Markie Shore - 02/16/18 12:40> Abnormal lab results 02/15/18 Range/Units 20:28 POC Glucose 140 H (68-110) mg/dl <Markie Shore - 02/16/18 12:40> Abnormal lab results 02/15/18 Range/Units 20:28 POC Glucose 140 H (68-110) mg/dl <Chandler Thomas - 02/16/18 11:46> Physical Exam Vital signs: Vital Signs 02/15/18 16:00 02/15/18 19:13 02/15/18 20:00 Temperature 97.4 F L 98.0 F Pulse Rate 62 82 86 Respiratory Rate 18 17 Blood Pressure 110/58 L 113/62 Pulse Oximetry 94 L 93 L 98 02/15/18 23:16 02/16/18 00:00 02/16/18 00:02 Temperature 97.6 F Pulse Rate 91 H 79 Respiratory Rate 17 18 Blood Pressure 116/59 L Pulse Oximetry 97 02/16/18 03:19 02/16/18 07:13 02/16/18 08:00 Temperature 97.4 F L 98.6 F Pulse Rate 78 91 H 84 Respiratory Rate 18 18 17 Blood Pressure 114/56 L 114/68 Pulse Oximetry 95 95 02/16/18 11:35 Temperature 97.8 F Pulse Rate 68 Respiratory Rate 18 Blood Pressure 114/57 L Pulse Oximetry Intake & Output 02/15/18 02/16/18 02/16/18 18:59 06:59 18:59 Intake Total 1330 / 1330 Output Total 1500 / 1500 Balance -170 / -170 Weight 95.2 kg Intake: Oral 1330 / 1330 Output: Urine 1500 / 1500 Other: # Voids 3 Date of Last Bowel Movement 02/11/18 # Bowel Movements 0 <Markie Shore - 02/16/18 12:40> Vital Signs 02/15/18 11:42 02/15/18 16:00 02/15/18 19:13 Temperature 98 F 97.4 F L 98.0 F Pulse Rate 70 62 82 Respiratory Rate 18 18 17 Blood Pressure 105/56 L 110/58 L 113/62 Pulse Oximetry 96 94 L 93 L 02/15/18 20:00 02/15/18 23:16 02/16/18 00:00 Temperature 97.6 F Pulse Rate 86 91 H 79 Respiratory Rate 17 Blood Pressure 116/59 L Pulse Oximetry 98 97 02/16/18 00:02 02/16/18 03:19 02/16/18 07:13 Temperature 97.4 F L Pulse Rate 78 91 H Respiratory Rate 18 18 18 Blood Pressure 114/56 L Pulse Oximetry 95 02/16/18 08:00 02/16/18 11:35 Temperature 98.6 F 97.8 F Pulse Rate 84 68 Respiratory Rate 17 18 Blood Pressure 114/68 114/57 L Pulse Oximetry 95 Intake & Output 02/15/18 02/16/18 02/16/18 18:59 06:59 18:59 Intake Total 1330 / 1330 Output Total 1500 / 1500 Balance -170 / -170 Weight 95.2 kg Intake: Oral 1330 / 1330 Output: Urine 1500 / 1500 Other: # Voids 3 Date of Last Bowel Movement 02/11/18 # Bowel Movements 0 <WilliamChandler Isac - 02/16/18 11:46> Narrative: GENERAL: Elderly female lying in bed watching television with her in no acute distress. SKIN: Warm and dry. Pale appearing, baseline. No rash. HEENT: Atraumatic, normocephalic with extraocular motions intact. No rhinorrhea. No visible lymphadenopathy or jugulovenous distension appreciated. CARDIOVASCULAR: Irregular rate and rhythm consistent with atrial fibrillation. No obvious murmurs, gallops, or rubs. 2+ pulses in all four extremities. RESPIRATORY: Clear to anterior auscultation bilaterally with no crackles, wheezes, or rhonchi. No increased work of breathing. GASTROINTESTINAL: Abdomen soft, non-tender with positive bowel sounds. Mildly distended (baseline). No masses appreciated. MUSCULOSKELETAL: No cyanosis or edema. No right calf tenderness. LLE: Left lower extremity in leg immobilizer. Range of motion intact at the ankle and digits. Sensation intact throughout the lower extremity. Appropriate capillary refill at the digits. 2+ DP/PT pulse. Left hip incision sterilely bandaged and appears clean, dry, and intact without signs of hemorrhage or infection at this time. Incision site with improved surrounding ecchymosis. NEURO/PSYCH: Afocal. Awake, alert, and oriented x3. Normal speech and judgement. <Chandler Thomas 02/16/18 11:46> - Urinary Catheter Management Female External Cath placed during this visit: no <Markie Shore 02/16/18 12:40> no <Chandler Thomas [facility] 02/16/18 11:46> Indwelling Urethral Catheter Cath placed during this visit: no <Markie Shore 02/16/18 12:40> no <Chandler Thomas 02/16/18 11:46> Assessment and Plan - Assessment (1) Closed hip fracture Code(s): S72.009A - Fracture of unspecified part of neck of unspecified femur, initial encounter for closed fracture Status: Acute (2) Cellulitis Code(s): L03.90 - Cellulitis, unspecified Status: Acute (3) Enterococcus UTI Code(s): N39.0 - Urinary tract infection, site not specified; B95.2 - Enterococcus as the cause of diseases classified elsewhere Status: Acute (4) Constipation Code(s): K59.00 - Constipation, unspecified Status: Acute (5) Lung consolidation Code(s): J18.1 - Lobar pneumonia, unspecified organism Status: Acute (6) Elevated serum creatinine Code(s): R79.89 - Other specified abnormal findings of blood chemistry Status : Resolved (7) Bone metastases Code(s): C79.51 - Secondary malignant neoplasm of bone Status: Chronic (8) Chronic anemia Code(s): D64.9 - Anemia, unspecified Status: Chronic (9) CHF (congestive heart failure) Code(s): I50.9 - Heart failure, unspecified Status: Chronic (10) Hypertension Code(s): I10 - Essential (primary) hypertension Status: Chronic (11) Neuropathy Code(s): G62.9 - Polyneuropathy, unspecified Status: Chronic (12) A-fib Code(s): I48.91 - Unspecified atrial fibrillation Status: Chronic (13) Diabetes Code(s): E11.9 - Type 2 diabetes mellitus without complications Status: Chronic (14) Hypothyroidism Code(s): E03.9 - Hypothyroidism, unspecified Status: Acute (15) Nutrition, metabolism, and development symptoms Code(s): R63.8 - Other symptoms and signs concerning food and fluid intake Status: Acute <Markie Shore - 02/16/18 12:40> (1) Closed hip fracture Code(s): S72.009A - Fracture of unspecified part of neck of unspecified femur, initial encounter for closed fracture Status: Acute Plan: Status post hemiarthroplasty of left hip performed 02/13/[address] Turcios -Orthopedic surgery consulted, appreciate recommendations; patient cleared for discharge at this time -Vitamin D: 7.2 -Ice and elevated LLE -Physical therapy consulted to evaluate and treat -Plan for discharge to [facility] for rehabilitation, form completed and provided to CM who will assist with placement -Incentive spirometry Medications: -Pain control with Clarkia 5/325 1-2 tablets based on pain scale -Morphine every 3 hours as needed for breakthrough pain -Vitamin D 50,000 units once a week -Continue Xarelto (2) Cellulitis Code(s): L03.90 - Cellulitis, unspecified Status: Acute Plan: Lower extremity cellulitis -US: Bilateral lower extremity ultrasound negative for DVT -No areas of fluctuance, abscess, or pus. -Monitor daily labs and vitals Medications: -Ancef (02/11/18-02/14/18) -Zosyn (02/11/18-02/13/18) -Linezolid (02/14/18- ) for VRE UTI as below -Lactobacillus 1 capsule twice daily -Plan to discharge on Keflex 500mg Q6H for a total of 10 days (3) Enterococcus UTI Code(s): N39.0 - Urinary tract infection, site not specified; B95.2 - Enterococcus as the cause of diseases classified elsewhere Status: Acute Plan: Patient found to have group D enterococcus species on urine culture. Patient does report history of frequent UTIs. -UA: Trace leukocyte esterase, rare bacteria, few mucus, otherwise negative Urine culture: VRE with Klebsiella; multiple resistances -Blood cultures: Negative to date -Patient currently not septic -Repeat Urine Culture 02/14/18: Negative to date -ID consulted, appreciate recommendations Medications: -Linezolid 600mg BID (02/14/18- ) -Lactobacillus 1 capsule twice daily (4) Constipation Code(s): K59.00 - Constipation, unspecified Status: Acute Plan: Patient reporting constipation. -Patient's baseline consist of intermittent episodes of loose stools as well as episodes of constipation likely secondary to her colon malignancy -Patient currently on narcotic pain control contributing to constipation Medications: -Constipation protocol in place (5) Lung consolidation Code(s): J18.1 - Lobar pneumonia, unspecified organism Status: Acute Plan: Asymptomatic May consider repeat PA and lateral chest x-ray if diagnosis continues to be unclear -Chest x-ray single AP: Left base consolidation and diffuse infiltrate elsewhere -Supplemental oxygen as needed to keep O2 saturation at 93% -Incentive spirometry -Albuterol PRN for SOB Medications: -Continue IV antibiotics as above (6) Elevated serum creatinine Code(s): R79.89 - Other specified abnormal findings of blood chemistry Status : Resolved Plan: Creatinine 1.15 on admission, baseline approximately 0.7-0.9 per chart review -Cr elevated to 1.2, resolved with oral fluid administration -Avoid NSAIDs -Careful IV fluid administration secondary to CHF -Continue to monitor (7) Bone metastases Code(s): C79.51 - Secondary malignant neoplasm of bone Status: Chronic Plan: -History of colon cancer, possible bone metastases noted on imaging -Patient has just left rehab after previous hospitalization -Scheduled to meet with Dr. Kellogg for PET scan as outpatient (8) Chronic anemia Code(s): D64.9 - Anemia, unspecified Status: Chronic Plan: Patient with chronic anemia, baseline approximately 8-10 per chart review -2 units PRBCs transfused with 20 mg Lasix IV after each unit -Per chart review, only 1 unit PRBC administered with IV Lasix postoperatively -Second unit PRBC for continued anemia with IV Lasix 02/13/18 -Hemoglobin at baseline, continue to monitor (9) CHF (congestive heart failure) Code(s): I50.9 - Heart failure, unspecified Status: Chronic Plan: Recent diagnosis of CHF per home healthcare via chest x-ray and labs done today No signs of acute exacerbation Medications: -Continue prior medication of Lasix 40 mg daily (10) Hypertension Code(s): I10 - Essential (primary) hypertension Status: Chronic Plan: Medications: -Continue home meds; diltiazem, Lasix, metoprolol (11) Neuropathy Code(s): G62.9 - Polyneuropathy, unspecified Status: Chronic Plan: Medications: -Pain management as above -Continue home meds; gabapentin -Hold Effexor due to interaction with Linezolid at this time (12) A-fib Code(s): I48.91 - Unspecified atrial fibrillation Status: Chronic Plan: Patient with chronic Atrial fibrillation s/p ablation x 2, follows w/ -Continue telemetry Medications: -Continue diltiazem and Xarelto (13) Diabetes Code(s): E11.9 - Type 2 diabetes mellitus without complications Status: Chronic Plan: Managed with insulin -Patient refusing medications Medications: -Continue home medications: Lantus 15 units QHS (14) Hypothyroidism Code(s): E03.9 - Hypothyroidism, unspecified Status: Acute Plan: Medications: -Continue home Levothyroxine 50mcg (15) Nutrition, metabolism, and development symptoms Code(s): R63.8 - Other symptoms and signs concerning food and fluid intake Status: Acute Plan: Electrolytes: Follow-up BMP and replete as needed Nutrition: Diabetic diet as tolerated DVT prophylaxis: Restarted anticoagulation with Xarelto 02/13/18 Prophylaxis: Pain management as above, Albuterol PRN for SOB, Incentive spirometry PT to evaluate and treat CM consulted to assist with placement, rehabilitation form completed <Chandler Thomas - 02/16/18 11:40> - Assessment and Plan 72-year-old female, history of diabetes, recent hospitalization for pneumonia and severe sepsis, colon cancer with likely bone metastases, chronic anemia, CHF , hypertension, neuropathy, atrial fibrillation, hypothyroidism, presents with displaced left femoral neck fracture and leg erythema. She is s/p uncomplicated L hip hemiarthroplasty. <Chandler Thomas - 02/16/18 11:46> - Attending Attestation Pt. examined and case discussed with resident physicians. I have read the above note and agree with the assessment and plan as discussed with me. I was involved in all medical decision making for this patient. Markie Shore MD <Markie Shore - 02/16/18 12:40> <Chandler Thomas - Last Filed: 02/16/18 11:40> (1) Closed hip fracture Qualifiers: Encounter type: initial encounter Laterality: left Qualified Code(s): S72.002A - Fracture of unspecified part of neck of left femur, initial encounter for closed fracture <Markie Shore - Last Filed: 02/16/18 12:40> (1) Closed hip fracture Qualifiers: Encounter type: initial encounter Laterality: left Qualified Code(s): S72.002A - Fracture of unspecified part of neck of left femur, initial encounter for closed fracture <Chandler Thomas - Last Filed: 02/16/18 11:40> (1) Closed hip fracture Qualifiers: Encounter type: initial encounter Laterality: left Qualified Code(s): S72.002A - Fracture of unspecified part of neck of left femur, initial encounter for closed fracture <Markie Shore - Last Filed: 02/16/18 12:40> (1) Closed hip fracture Qualifiers: Encounter type: initial encounter Laterality: left Qualified Code(s): S72.002A - Fracture of unspecified part of neck of left femur, initial encounter for closed fracture
[2018-02-16] MEDS: Insulin Glargine Inj 1,000 UNITS/10 ML Vial SQ SCH (23:42)
[2018-02-17] MEDS: Levothyroxine 50 MCG Tablet PO SCH (05:20)
[2018-02-17] MEDS: Sod Chloride 0.9% Inj 1,000 ML IV.CONT SCH ×2 (06:26→21:06)
[2018-02-17 07:46] LABS: Hematocrit 27.1 % (35.0-46.0); Hemoglobin 8.6 gm/dL (11.6-15.3); Mean Corpuscular HGB Conc 31.7 % (32.0-36.0); Mean Corpuscular Hemoglobin 24.9 pg (27.0-34.0); Mean Corpuscular Volume 78.7 fL (80.0-100.0); Mean Platelet Volume 8.1 fL (7.0-11.0); Platelet Count 221 th/mm3 (150-450); Red Blood Count 3.45 mil/mm3 (4.00-5.30); Red Cell Distribution Width 19.9 % (11.6-17.2)
[2018-02-17 08:00] LABS: Calcium 8.4 mg/dL (8.5-10.1); Carbon Dioxide 29.9 meq/L (21.0-32.0); Potassium 4.3 meq/L (3.5-5.1)
--- NOTE | 2018-02-17 09:25 | P.PNFP ---
Subjective Interval history: Patient seen and examined this morning. No acute events overnight. Patient endorses left lower extremity pain, otherwise has no acute complaints. She states that the pain is in her upper leg and hip, but is controlled on her pain medication. She states the pain is worse when she is working with physical therapy, but again is controlled if she is premedicated with pain control. We also discussed her constipation which she states is her baseline. She endorses no feeling of bloating, abdominal pain, or other GI symptom at this time. She also denies a complete review of systems including but not limited to any fever , chills, shortness of breath, chest pain, NVD, abdominal pain, or right calf tenderness. Patient is hopeful for discharge to undergo manner for continued rehabilitation today. <Chandler Thomas H - 02/17/18 09:25> Results - Labs Result diagrams: 02/17/18 06:38 02/17/18 06:38 <Lydia Greenberg M - 02/17/18 12:56> Abnormal lab results 02/16/18 02/17/18 02/17/18 Range/Units 21:54 05:19 06:38 RBC 3.45 L (4.00-5.30) mil/mm3 Hgb 8.6 L (11.6-15.3) gm/dL Hct 27.1 L (35.0-46.0) % MCV 78.7 L (80.0-100.0) fL MCH 24.9 L (27.0-34.0) pg MCHC 31.7 L (32.0-36.0) % RDW 19.9 H (11.6-17.2) % Estimated GFR (>89) mL/min POC Glucose 121 H 112 H (68-110) mg/dl Calcium (8.5-10.1) mg/dL 02/17/18 Range/Units 06:38 RBC (4.00-5.30) mil/mm3 Hgb (11.6-15.3) gm/dL Hct (35.0-46.0) % MCV (80.0-100.0) fL MCH (27.0-34.0) pg MCHC (32.0-36.0) % RDW (11.6-17.2) % Estimated GFR 62 L (>89) mL/min POC Glucose (68-110) mg/dl Calcium 8.4 L (8.5-10.1) mg/dL Short CBC 02/17/18 Range/Units 06:38 WBC 8.0 (4.0-11.0) th/mm3 Hgb 8.6 L (11.6-15.3) gm/dL Hct 27.1 L (35.0-46.0) % Plt Count 221 (150-450) th/mm3 BMP 02/17/18 06:38 Sodium 137 Potassium 4.3 Chloride 98 Carbon Dioxide 29.9 BUN 15 Creatinine 0.90 Calcium 8.4 L <Lydia Greenberg - 02/17/18 12:56> Abnormal lab results 02/16/18 02/17/18 02/17/18 Range/Units 21:54 05:19 06:38 RBC 3.45 L (4.00-5.30) mil/mm3 Hgb 8.6 L (11.6-15.3) gm/dL Hct 27.1 L (35.0-46.0) % MCV 78.7 L (80.0-100.0) fL MCH 24.9 L (27.0-34.0) pg MCHC 31.7 L (32.0-36.0) % RDW 19.9 H (11.6-17.2) % Estimated GFR (>89) mL/min POC Glucose 121 H 112 H (68-110) mg/dl Calcium (8.5-10.1) mg/dL 02/17/18 Range/Units 06:38 RBC (4.00-5.30) mil/mm3 Hgb (11.6-15.3) gm/dL Hct (35.0-46.0) % MCV (80.0-100.0) fL MCH (27.0-34.0) pg MCHC (32.0-36.0) % RDW (11.6-17.2) % Estimated GFR 62 L (>89) mL/min POC Glucose (68-110) mg/dl Calcium 8.4 L (8.5-10.1) mg/dL Short CBC 02/17/18 Range/Units 06:38 WBC 8.0 (4.0-11.0) th/mm3 Hgb 8.6 L (11.6-15.3) gm/dL Hct 27.1 L (35.0-46.0) % Plt Count 221 (150-450) th/mm3 BMP 02/17/18 06:38 Sodium 137 Potassium 4.3 Chloride 98 Carbon Dioxide 29.9 BUN 15 Creatinine 0.90 Calcium 8.4 L <WilliamChandler H - 02/17/18 09:25> Physical Exam Vital signs: Vital Signs 02/16/18 15:04 02/16/18 15:45 02/16/18 20:01 Temperature 98.4 F 97.5 F L Pulse Rate 73 86 Respiratory Rate 16 18 18 Blood Pressure 109/67 107/57 L Pulse Oximetry 92 L 97 02/16/18 20:05 02/16/18 23:43 02/16/18 23:58 Temperature 98.8 F Pulse Rate 76 76 86 Respiratory Rate 18 Blood Pressure 111/62 Pulse Oximetry 96 02/17/18 02:00 02/17/18 04:06 02/17/18 05:50 Temperature 98.2 F Pulse Rate 99 H Respiratory Rate 17 18 17 Blood Pressure 103/51 L Pulse Oximetry 97 02/17/18 07:43 02/17/18 08:00 Temperature 98.3 F Pulse Rate 89 Respiratory Rate 19 Blood Pressure 116/67 Pulse Oximetry 94 L 96 Intake & Output 02/16/18 02/17/18 02/17/18 18:59 06:59 18:59 Intake Total 900 / 900 360 / 360 Output Total 1999 Balance -1100 / -1100 -1640 / -1640 Weight 95.2 kg Intake: Oral 900 / 900 360 / 360 Output: Urine 1999 Urine Amount (Catheter) 1999 Female External 1999 Other: Date of Last Bowel Movement 02/11/18 02/11/18 02/11/18 # Bowel Movements 0 <Lydia Greenberg M - 02/17/18 12:56> Vital Signs 02/16/18 11:35 02/16/18 12:04 02/16/18 15:04 Temperature 97.8 F 98.4 F Pulse Rate 68 73 Respiratory Rate 18 18 16 Blood Pressure 114/57 L 109/67 Pulse Oximetry 92 L 02/16/18 15:45 02/16/18 20:01 02/16/18 20:05 Temperature 97.5 F L Pulse Rate 86 76 Respiratory Rate 18 18 Blood Pressure 107/57 L Pulse Oximetry 97 02/16/18 23:43 02/16/18 23:58 02/17/18 02:00 Temperature 98.8 F Pulse Rate 76 86 Respiratory Rate 18 17 Blood Pressure 111/62 Pulse Oximetry 96 02/17/18 04:06 02/17/18 05:50 02/17/18 07:43 Temperature 98.2 F Pulse Rate 99 H Respiratory Rate 18 17 Blood Pressure 103/51 L Pulse Oximetry 97 94 L 02/17/18 08:00 Temperature 98.3 F Pulse Rate 89 Respiratory Rate 19 Blood Pressure 116/67 Pulse Oximetry 96 Intake & Output 02/16/18 02/17/18 02/17/18 18:59 06:59 18:59 Intake Total 900 / 900 360 / 360 Output Total 1999 Balance -1100 / -1100 -1640 / -1640 Weight 95.2 kg Intake: Oral 900 / 900 360 / 360 Output: Urine 1999 Urine Amount (Catheter) 1999 Female External 1999 Other: Date of Last Bowel Movement 02/11/18 02/11/18 # Bowel Movements 0 <Chandler Thomas H - 02/17/18 09:25> Narrative: GENERAL: Elderly female lying in bed watching television with her in no acute distress. SKIN: Warm and dry. Pale appearing, baseline. No rash. HEENT: Atraumatic, normocephalic with extraocular motions intact. No rhinorrhea. No visible lymphadenopathy or jugulovenous distension appreciated. CARDIOVASCULAR: Irregular rate and rhythm consistent with atrial fibrillation. No obvious murmurs, gallops, or rubs. 2+ pulses in all four extremities. RESPIRATORY: Clear to anterior auscultation bilaterally with no crackles, wheezes, or rhonchi. No increased work of breathing. GASTROINTESTINAL: Abdomen soft, non-tender with positive bowel sounds. Mildly distended (baseline). No masses appreciated. MUSCULOSKELETAL: No cyanosis or edema. No right calf tenderness. LLE: Left lower extremity in leg immobilizer. Range of motion intact at the ankle and digits. Sensation intact throughout the lower extremity. Appropriate capillary refill at the digits. 2+ DP/PT pulse. Left hip incision sterilely bandaged and appears clean, dry, and intact without signs of hemorrhage or infection at this time. Incision site with continued improving ecchymosis. NEURO/PSYCH: Afocal. Awake, alert, and oriented x3. Normal speech and judgement. <Chandler Thomas - 02/17/18 09:25> - Urinary Catheter Management Female External Cath placed during this visit: no <Lydia Greenberg - 02/17/18 12:56> no <Chandler Thomas - 02/17/18 11:08> Indwelling Urethral Catheter Cath placed during this visit: no <Lydia Greenberg - 02/17/18 12:56> no <Chandler Thomas - 02/17/18 11:08> Assessment and Plan - Assessment (1) Closed hip fracture Code(s): S72.009A - Fracture of unspecified part of neck of unspecified femur, initial encounter for closed fracture Status: Acute (2) Cellulitis Code(s): L03.90 - Cellulitis, unspecified Status: Acute (3) Enterococcus UTI Code(s): N39.0 - Urinary tract infection, site not specified; B95.2 - Enterococcus as the cause of diseases classified elsewhere Status: Acute (4) Constipation Code(s): K59.00 - Constipation, unspecified Status: Acute (5) Lung consolidation Code(s): J18.1 - Lobar pneumonia, unspecified organism Status: Acute (6) Elevated serum creatinine Code(s): R79.89 - Other specified abnormal findings of blood chemistry Status : Resolved (7) Bone metastases Code(s): C79.51 - Secondary malignant neoplasm of bone Status: Chronic (8) Chronic anemia Code(s): D64.9 - Anemia, unspecified Status: Chronic (9) CHF (congestive heart failure) Code(s): I50.9 - Heart failure, unspecified Status: Chronic (10) Hypertension Code(s): I10 - Essential (primary) hypertension Status: Chronic (11) Neuropathy Code(s): G62.9 - Polyneuropathy, unspecified Status: Chronic (12) A-fib Code(s): I48.91 - Unspecified atrial fibrillation Status: Chronic (13) Diabetes Code(s): E11.9 - Type 2 diabetes mellitus without complications Status: Chronic (14) Hypothyroidism Code(s): E03.9 - Hypothyroidism, unspecified Status: Acute (15) Nutrition, metabolism, and development symptoms Code(s): R63.8 - Other symptoms and signs concerning food and fluid intake Status: Acute <Lydia Greenberg - 02/17/18 12:56> (1) Closed hip fracture Code(s): S72.009A - Fracture of unspecified part of neck of unspecified femur, initial encounter for closed fracture Status: Acute Plan: Status post hemiarthroplasty of left hip performed 02/13/[address] Turcios -Orthopedic surgery consulted, appreciate recommendations; patient cleared for discharge at this time -Vitamin D: 7.2 -Ice and elevated LLE -Physical therapy consulted to evaluate and treat -Plan for discharge to [facility] for rehabilitation, form completed and provided to CM who will assist with placement -Incentive spirometry Medications: -Pain control with Trosper 5/325 1-2 tablets based on pain scale -Morphine every 3 hours as needed for breakthrough pain -Vitamin D 50,000 units once a week -Continue Xarelto (2) Enterococcus UTI Code(s): N39.0 - Urinary tract infection, site not specified; B95.2 - Enterococcus as the cause of diseases classified elsewhere Status: Acute Plan: Patient found to have group D enterococcus species on urine culture. Patient does report history of frequent UTIs. -UA: Trace leukocyte esterase, rare bacteria, few mucus, otherwise negative Urine culture: VRE with Klebsiella; multiple resistances -Blood cultures: Negative to date -Patient currently not septic -Repeat Urine Culture 02/14/18: Negative to date -ID consulted, appreciate recommendations -Discussed with ID for possible discharge, patient cleared for discharge without continuation of antibiotics at this time Medications: -Linezolid 600mg BID (02/14/18-02/17/18) -Lactobacillus 1 capsule twice daily (3) Cellulitis Code(s): L03.90 - Cellulitis, unspecified Status: Acute Plan: Lower extremity cellulitis -US: Bilateral lower extremity ultrasound negative for DVT -No areas of fluctuance, abscess, or pus. -Monitor daily labs and vitals Medications: -Ancef (02/11/18-02/14/18) -Zosyn (02/11/18-02/13/18) -Linezolid (02/14/18-02/17/18) for VRE UTI as below -Lactobacillus 1 capsule twice daily (4) Constipation Code(s): K59.00 - Constipation, unspecified Status: Acute Plan: Patient reporting constipation. -Patient's baseline consist of intermittent episodes of loose stools as well as episodes of constipation likely secondary to her colon malignancy -Patient currently on narcotic pain control contributing to constipation Medications: -Constipation protocol in place (5) Lung consolidation Code(s): J18.1 - Lobar pneumonia, unspecified organism Status: Acute Plan: Asymptomatic May consider repeat PA and lateral chest x-ray if diagnosis continues to be unclear -Chest x-ray single AP: Left base consolidation and diffuse infiltrate elsewhere -Supplemental oxygen as needed to keep O2 saturation at 93% -Incentive spirometry -Albuterol PRN for SOB Medications: -Continue IV antibiotics as above (6) Elevated serum creatinine Code(s): R79.89 - Other specified abnormal findings of blood chemistry Status : Resolved Plan: Creatinine 1.15 on admission, baseline approximately 0.7-0.9 per chart review -Cr elevated to 1.2, resolved with oral fluid administration -Avoid NSAIDs -Careful IV fluid administration secondary to CHF -Continue to monitor (7) Bone metastases Code(s): C79.51 - Secondary malignant neoplasm of bone Status: Chronic Plan: -History of colon cancer, possible bone metastases noted on imaging -Patient has just left rehab after previous hospitalization -Scheduled to meet with Dr. Kellogg for PET scan as outpatient (8) Chronic anemia Code(s): D64.9 - Anemia, unspecified Status: Chronic Plan: Patient with chronic anemia, baseline approximately 8-10 per chart review -2 units PRBCs transfused with 20 mg Lasix IV after each unit -Per chart review, only 1 unit PRBC administered with IV Lasix postoperatively -Second unit PRBC for continued anemia with IV Lasix 02/13/18 -Hemoglobin at baseline, continue to monitor (9) CHF (congestive heart failure) Code(s): I50.9 - Heart failure, unspecified Status: Chronic Plan: Recent diagnosis of CHF per home healthcare via chest x-ray and labs done today No signs of acute exacerbation Medications: -Continue prior medication of Lasix 40 mg daily (10) Hypertension Code(s): I10 - Essential (primary) hypertension Status: Chronic Plan: Medications: -Continue home meds; diltiazem, Lasix, metoprolol (11) Neuropathy Code(s): G62.9 - Polyneuropathy, unspecified Status: Chronic Plan: Medications: -Pain management as above -Continue home meds; gabapentin -Hold Effexor due to interaction with Linezolid at this time -Plan to restart Effexor upon discharge (12) A-fib Code(s): I48.91 - Unspecified atrial fibrillation Status: Chronic Plan: Patient with chronic Atrial fibrillation s/p ablation x 2, follows w/ -Continue telemetry Medications: -Continue diltiazem and Xarelto (13) Diabetes Code(s): E11.9 - Type 2 diabetes mellitus without complications Status: Chronic Plan: Managed with insulin -Patient refusing medications Medications: -Continue home medications: Lantus 15 units QHS (14) Hypothyroidism Code(s): E03.9 - Hypothyroidism, unspecified Status: Acute Plan: Medications: -Continue home Levothyroxine 50mcg (15) Nutrition, metabolism, and development symptoms Code(s): R63.8 - Other symptoms and signs concerning food and fluid intake Status: Acute Plan: Electrolytes: Follow-up BMP and replete as needed Nutrition: Diabetic diet as tolerated DVT prophylaxis: Restarted anticoagulation with Xarelto 02/13/18 Prophylaxis: Pain management as above, Albuterol PRN for SOB, Incentive spirometry PT to evaluate and treat CM consulted to assist with placement, rehabilitation form completed <Chandler Thomas H - 02/17/18 11:07> - Assessment and Plan 72-year-old female, history of diabetes, recent hospitalization for pneumonia and severe sepsis, colon cancer with likely bone metastases, chronic anemia, CHF , hypertension, neuropathy, atrial fibrillation, hypothyroidism, presents with displaced left femoral neck fracture and leg erythema. She is s/p uncomplicated L hip hemiarthroplasty. <Chandler Thomas - 02/17/18 09:25> - Attending Attestation The exam, history, and the medical decision-making described in the above note were completed with the assistance of the resident physician. I reviewed and agree with the findings presented. I attest that I had a [id number] encounter with the patient on the same day, and personally performed and documented my assessment and findings in the medical record. she is ready to get better and should be going to [facility] today <Lydia Greenberg - 02/17/18 12:56> <Chandler Thomas H - Last Filed: 02/17/18 11:07> (1) Closed hip fracture Qualifiers: Encounter type: initial encounter Laterality: left Qualified Code(s): S72.002A - Fracture of unspecified part of neck of left femur, initial encounter for closed fracture <Lydia Greenberg M - Last Filed: 02/17/18 12:56> (1) Closed hip fracture Qualifiers: Encounter type: initial encounter Laterality: left Qualified Code(s): S72.002A - Fracture of unspecified part of neck of left femur, initial encounter for closed fracture <Chandler Thomas H - Last Filed: 02/17/18 11:07> (1) Closed hip fracture Qualifiers: Encounter type: initial encounter Laterality: left Qualified Code(s): S72.002A - Fracture of unspecified part of neck of left femur, initial encounter for closed fracture <Lydia Greenberg M - Last Filed: 02/17/18 12:56> (1) Closed hip fracture Qualifiers: Encounter type: initial encounter Laterality: left Qualified Code(s): S72.002A - Fracture of unspecified part of neck of left femur, initial encounter for closed fracture
[2018-02-17] MEDS: dilTIAZem CD 180 MG Capsule PO SCH (09:44)
[2018-02-17] MEDS: Furosemide 40 MG Tablet PO SCH (09:44)
[2018-02-17] MEDS: Metoprolol Tartrate 50 MG Tablet PO SCH (09:44)
[2018-02-17] MEDS: Senna/Docusate Sodium 8.6/50 MG Tablet PO SCH ×2 (09:44→21:04)
[2018-02-17] MEDS: Lactobacillus Acidophilus/L. Spores Tablet PO SCH ×2 (09:44→21:04)
[2018-02-17] MEDS: Gabapentin 400 MG Capsule PO SCH ×3 (09:45→17:46)
[2018-02-17] MEDS: Multivitamin/Minerals Therapeutic Tablet PO SCH ×2 (09:45→21:04)
[2018-02-17] MEDS: Amiodarone 200 MG Tablet PO SCH (09:45)
[2018-02-17] MEDS: Linezolid 600 MG Tablet PO SCH ×2 (09:45→21:04)
--- NOTE | 2018-02-17 10:22 | P.DS ---
Date of admission: 02/11/18 17:11 Primary care physician: Sheldon Dumont MD, R3 Attending physician on discharge: Lydia Greenberg Anticipated date of discharge: 02/17/18 Brief History from admission: Patient seen in the room status post hemiarthroplasty by Dr. Turcios for her left hip femoral neck fracture. She took an oral pain medication with Shokan that did not provide her any relief, however she took a dose of morphine approximately 2 hours ago and states that her pain is well controlled at this time. She is about to eat dinner. She denies pain at this time, she denies chest pain or palpitations, she denies fevers or chills, she denies numbness or tingling beyond her normal peripheral neuropathy in her feet, she denies inability to move her feet/toes. In summary, this is a 72-year-old female presenting to the emergency department after falling at home and sustaining a left femoral neck fracture. She has a complicated past medical history including colon cancer with bony metastasis, pneumonia with severe sepsis requiring prolonged hospital stay and rehabilitation for which she was discharged home 1 week ago. She was released from rehabilitation and discharged home with a wheelchair, but while she was at home she did try to stand on her own while making herself a hot dog and eventually sustaining a fall to the floor with a direct impact on her left knee and left hip and subsequent pain and inability to use or move her left hip. DS: Diagnosis - Discharge Diagnosis (1) Closed hip fracture Status: Acute (2) Cellulitis Status: Acute (3) Enterococcus UTI Status: Acute (4) Constipation Status: Acute (5) Lung consolidation Status: Acute (6) Elevated serum creatinine Status: Resolved (7) Bone metastases Status: Chronic (8) Chronic anemia Status: Chronic (9) CHF (congestive heart failure) Status: Chronic (10) Hypertension Status: Chronic (11) Neuropathy Status: Chronic (12) A-fib Status: Chronic (13) Diabetes Status: Chronic (14) Hypothyroidism Status: Acute (15) Nutrition, metabolism, and development symptoms Status: Acute DS: Medications - Discharge Medications Prescriptions: furosemide 40 mg PO DAILY #30 tab hydrocodone-acetaminophen [Shokan] 1 - 2 tab PO Q4-6H #50 tab Lactobacillus acidoph-L.bulgar [Lactinex] 1 tab PO BID #60 tab sennosides-docusate sodium [Senna Plus] 1 tab PO BID #60 tab DS: Summary Hospital Course: Patient was admitted with left hip fracture after traumatic fall. Patient was then taken to the operating room for fixation by orthopedic surgery on hospital day 1. Surgical procedure was uncomplicated. Postoperative patient did well with minimal pain. Patient completed daily physical therapy and was discharged to [facility] for further rehabilitation on hospital day 6. During hospitalization patient was transfused 2 units of PRBC with Lasix administered after each unit as she is diagnosed with congestive heart failure. Patient has chronic anemia with her hemoglobin stabilizing after her 2 units her previous baseline per chart review. Since transfusion her hemoglobin has been stable compared to her previous H/H during hospitalization. Patient's initial urinary analysis showed trace leukocyte esterase, rare bacteria, and mucus, but was otherwise negative. Urine culture was indicated and grew vancomycin resistant enterococcus. Infectious disease was consulted and patient was started on linezolid. Linezolid was continued for 3 days (02/14- 02/17). Repeat urine culture was negative and patient was discharged without need for antibiotics. On initial exam, patient showed signs/symptoms of left lower extremity cellulitis. Patient was initially started on Zosyn and Ancef. Zosyn was discontinued on hospital day 1 and Ancef was continued. On 02/14 Ancef was discontinued as Zyvox was started for her VRE UTI. Patient received a total of 7 days of antibiotic treatment with resolution of symptoms upon discharge. Patient to follow-up with PCP, orthopedic surgery, and hematology/oncology for further evaluation of her colon malignancy. She will be discharged to [facility] for further rehabilitation. Patient was continued on all of her home medications at the time of discharge given prescription for pain medication by orthopedic surgery for acute pain. - Time Spent with Patient Total time spent providing and/or coordinating discharge services: Less than 30 minutes - Quality: VTE Deep Vein Thrombosis/Pulmonary Embolism Present on Admission: No Exam Vital signs: Vital Signs 02/16/18 11:35 02/16/18 12:04 02/16/18 15:04 Temperature 97.8 F 98.4 F Pulse Rate 68 73 Respiratory Rate 18 18 16 Blood Pressure 114/57 L 109/67 Pulse Oximetry 92 L 02/16/18 15:45 02/16/18 20:01 02/16/18 20:05 Temperature 97.5 F L Pulse Rate 86 76 Respiratory Rate 18 18 Blood Pressure 107/57 L Pulse Oximetry 97 02/16/18 23:43 02/16/18 23:58 02/17/18 02:00 Temperature 98.8 F Pulse Rate 76 86 Respiratory Rate 18 17 Blood Pressure 111/62 Pulse Oximetry 96 02/17/18 04:06 02/17/18 05:50 02/17/18 07:43 Temperature 98.2 F Pulse Rate 99 H Respiratory Rate 18 17 Blood Pressure 103/51 L Pulse Oximetry 97 94 L 02/17/18 08:00 Temperature 98.3 F Pulse Rate 89 Respiratory Rate 19 Blood Pressure 116/67 Pulse Oximetry 96 Intake & Output 02/16/18 02/17/18 02/17/18 18:59 06:59 18:59 Intake Total 900 / 900 360 / 360 Output Total 1999 Balance -1100 / -1100 -1640 / -1640 Weight 95.2 kg Intake: Oral 900 / 900 360 / 360 Output: Urine 1999 Urine Amount (Catheter) 1999 Female External 1999 Other: Date of Last Bowel Movement 02/11/18 02/11/18 02/11/18 # Bowel Movements 0 Narrative: GENERAL: Elderly female lying in bed watching television with her in no acute distress. SKIN: Warm and dry. Pale appearing, baseline. No rash. HEENT: Atraumatic, normocephalic with extraocular motions intact. No rhinorrhea. No visible lymphadenopathy or jugulovenous distension appreciated. CARDIOVASCULAR: Irregular rate and rhythm consistent with atrial fibrillation. No obvious murmurs, gallops, or rubs. 2+ pulses in all four extremities. RESPIRATORY: Clear to anterior auscultation bilaterally with no crackles, wheezes, or rhonchi. No increased work of breathing. GASTROINTESTINAL: Abdomen soft, non-tender with positive bowel sounds. Mildly distended (baseline). No masses appreciated. MUSCULOSKELETAL: No cyanosis or edema. No right calf tenderness. LLE: Left lower extremity in leg immobilizer. Range of motion intact at the ankle and digits. Sensation intact throughout the lower extremity. Appropriate capillary refill at the digits. 2+ DP/PT pulse. Left hip incision sterilely bandaged and appears clean, dry, and intact without signs of hemorrhage or infection at this time. Incision site with continued improving ecchymosis. NEURO/PSYCH: Afocal. Awake, alert, and oriented x3. Normal speech and judgement. Results Procedures completed during hospitalization: Left hip hemiarthroplasty Labs on day of discharge: Labs from last 24 hours 02/17/18 02/17/18 02/17/18 06:38 06:38 05:19 WBC 8.0 RBC 3.45 L Hgb 8.6 L Hct 27.1 L MCV 78.7 L MCH 24.9 L MCHC 31.7 L RDW 19.9 H Plt Count 221 MPV 8.1 Sodium 137 Potassium 4.3 Chloride 98 Carbon Dioxide 29.9 Anion Gap 9 BUN 15 Creatinine 0.90 Estimated GFR 62 L POC Glucose 112 H Random Glucose 95 Calcium 8.4 L 02/16/18 02/16/18 23:39 21:54 WBC RBC Hgb Hct MCV MCH MCHC RDW Plt Count MPV Sodium Potassium Chloride Carbon Dioxide Anion Gap BUN Creatinine Estimated GFR POC Glucose 108 121 H Random Glucose Calcium - Impressions ITS Impressions Venous Doppler Study 02/11/18 00:00 CONCLUSION: 1. The study is negative for bilateral lower extremity deep venous thrombosis. Chest X-Ray 02/11/18 14:55 CONCLUSION: Left base consolidation and diffuse infiltrate elsewhere. Head CT 02/11/18 15:11 CONCLUSION: Slight chronic small vessel ischemic and atrophic changes. Hip X-Ray 02/12/18 11:40 CONCLUSION: Anatomic alignment. Javed Resendez MD FACR Discharge Plan - Discharge Disposition Patient Disposition: 03 Discharge to SNF - Discharge Condition Condition: Stable - Discharge Order Discharge Orders: Discharge Order (Routine); Ordered 02/17/18 Ordered By: Chandler Thomas - Discharge Details Anticipated Discharge Date: 02/17/18 Discharge Comment: Patient to follow up with PCP and Orthopedics in 1 week. - Physicians Team Primary Care Provider: Sheldon Dumont Attending Provider: Lydia Greenberg Other Providers: Rosalba Mac MD, R2 ; Aletha Cam,Agency ; Dre Lewis MD
[2018-02-17] MEDS: Rivaroxaban 10 MG Tablet PO SCH (17:03)
[2018-02-17] MEDS: Insulin Glargine Inj 1,000 UNITS/10 ML Vial SQ SCH (21:06)
[2018-02-18] MEDS: Levothyroxine 50 MCG Tablet PO SCH (05:45)
[2018-02-18] MEDS: Sod Chloride 0.9% Inj 1,000 ML IV.CONT SCH (06:05)
[2018-02-18] MEDS: Gabapentin 400 MG Capsule PO SCH ×2 (08:40→12:27)
[2018-02-18] MEDS: Senna/Docusate Sodium 8.6/50 MG Tablet PO SCH (08:40)
[2018-02-18] MEDS: Multivitamin/Minerals Therapeutic Tablet PO SCH (08:40)
[2018-02-18] MEDS: dilTIAZem CD 180 MG Capsule PO SCH (08:40)
[2018-02-18] MEDS: Lactobacillus Acidophilus/L. Spores Tablet PO SCH (08:40)
[2018-02-18] MEDS: Furosemide 40 MG Tablet PO SCH (08:41)
[2018-02-18] MEDS: Metoprolol Tartrate 50 MG Tablet PO SCH (08:41)
[2018-02-18] MEDS: Amiodarone 200 MG Tablet PO SCH (08:41)
--- NOTE | 2018-02-18 09:32 | P.PNFP ---
Subjective Interval history: Patient seen and examined this morning. Overnight patient had one uncomplicated bowel movement without blood. Discharge was held yesterday as patient had not had a documented bowel movement. During this timeframe she did not endorse any symptoms of constipation. This morning she has no acute complaints and states she is ready to go to rehab. She denies a complete review of systems including but not limited to any fevers, chills, shortness of breath, chest pain, NVD, or abdominal pain. <Chandler Thomas - 02/18/18 11:05> Results - Labs Result diagrams: 02/17/18 06:38 02/17/18 06:38 <Lydia Greenberg - 02/19/18 17:18> Abnormal lab results 02/17/18 Range/Units 21:08 POC Glucose 125 H (68-110) mg/dl <Chandler Thomas - 02/18/18 09:32> Physical Exam Vital signs: Intake & Output 02/18/18 02/19/18 02/19/18 18:59 06:59 18:59 Other: Date of Last Bowel Movement 02/17/18 <Lydia Greenberg - 02/19/18 17:18> Vital Signs 02/17/18 12:00 02/17/18 16:00 02/17/18 20:00 Temperature 97.6 F 97.4 F L 98.5 F Pulse Rate 79 64 77 Respiratory Rate 19 19 18 Blood Pressure 105/69 106/57 L 120/66 Pulse Oximetry 96 95 95 02/17/18 20:28 02/18/18 04:00 Temperature 98.7 F Pulse Rate 100 H Respiratory Rate 17 Blood Pressure 139/78 Pulse Oximetry 97 95 Intake & Output 02/17/18 02/18/18 02/18/18 18:59 06:59 18:59 Intake Total 250 / 250 100 / 100 Balance 250 / 250 100 / 100 Weight 81.4 kg Intake: Oral 250 / 250 100 / 100 Other: # Voids 800 Date of Last Bowel Movement 02/11/18 02/11/18 <Chandler Thomas - 02/18/18 09:32> Narrative: GENERAL: Elderly female lying in bed asleep upon entering the room with her at bedside in no acute distress. SKIN: Warm and dry. Pale appearing, baseline. No rash. HEENT: Atraumatic, normocephalic with extraocular motions intact. No rhinorrhea. No visible lymphadenopathy or jugulovenous distension appreciated. CARDIOVASCULAR: Irregular rate and rhythm consistent with atrial fibrillation. No obvious murmurs, gallops, or rubs. 2+ pulses in all four extremities. RESPIRATORY: Clear to anterior auscultation bilaterally with no crackles, wheezes, or rhonchi. No increased work of breathing. GASTROINTESTINAL: Abdomen soft, non-tender with positive bowel sounds. Mildly distended (baseline). No masses appreciated. MUSCULOSKELETAL: No cyanosis or edema. No right calf tenderness, in SCDs. LLE: Left lower extremity in leg immobilizer. Range of motion intact at the ankle and digits. Sensation intact throughout the lower extremity. Appropriate capillary refill at the digits. 2+ DP/PT pulse. Left hip incision sterilely bandaged and appears clean, dry, and intact without signs of hemorrhage or infection at this time. Incision site with continued improving ecchymosis. NEURO/PSYCH: Afocal. Awake, alert, and oriented x3. Normal speech and judgement. <Chandler Thomas - 02/18/18 11:05> - Urinary Catheter Management Female External Cath placed during this visit: no <Lydia Greenberg - 02/19/18 17:18> no <Chandler Thomas 02/18/18 11:05> Indwelling Urethral Catheter Cath placed during this visit: no <Lydia Greenberg - 02/19/18 17:18> no <Chandler Thomas - 02/18/18 11:05> Assessment and Plan - Assessment (1) Closed hip fracture Code(s): S72.009A - Fracture of unspecified part of neck of unspecified femur, initial encounter for closed fracture Status: Acute (2) Cellulitis Code(s): L03.90 - Cellulitis, unspecified Status: Acute (3) Enterococcus UTI Code(s): N39.0 - Urinary tract infection, site not specified; B95.2 - Enterococcus as the cause of diseases classified elsewhere Status: Acute (4) Constipation Code(s): K59.00 - Constipation, unspecified Status: Acute (5) Lung consolidation Code(s): J18.1 - Lobar pneumonia, unspecified organism Status: Acute (6) Elevated serum creatinine Code(s): R79.89 - Other specified abnormal findings of blood chemistry Status : Resolved (7) Bone metastases Code(s): C79.51 - Secondary malignant neoplasm of bone Status: Chronic (8) Chronic anemia Code(s): D64.9 - Anemia, unspecified Status: Chronic (9) CHF (congestive heart failure) Code(s): I50.9 - Heart failure, unspecified Status: Chronic (10) Hypertension Code(s): I10 - Essential (primary) hypertension Status: Chronic (11) Neuropathy Code(s): G62.9 - Polyneuropathy, unspecified Status: Chronic (12) A-fib Code(s): I48.91 - Unspecified atrial fibrillation Status: Chronic (13) Diabetes Code(s): E11.9 - Type 2 diabetes mellitus without complications Status: Chronic (14) Hypothyroidism Code(s): E03.9 - Hypothyroidism, unspecified Status: Acute (15) Nutrition, metabolism, and development symptoms Code(s): R63.8 - Other symptoms and signs concerning food and fluid intake Status: Acute <Lydia Greenberg - 02/19/18 17:18> (1) Closed hip fracture Code(s): S72.009A - Fracture of unspecified part of neck of unspecified femur, initial encounter for closed fracture Status: Acute Plan: Status post hemiarthroplasty of left hip performed 02/13/[address] Turcios -Orthopedic surgery consulted, appreciate recommendations; patient cleared for discharge at this time -Vitamin D: 7.2 -Ice and elevated LLE -Physical therapy consulted to evaluate and treat -Plan for discharge to [facility] for rehabilitation, form completed and provided to CM who will assist with placement -Incentive spirometry Medications: -Pain control with [place]oy 5/325 1-2 tablets based on pain scale; prescription provided by orthopedic surgery -Morphine every 3 hours as needed for breakthrough pain, DC at discharge -Vitamin D 50,000 units once a week, prescription given -Continue Xarelto (2) Cellulitis Code(s): L03.90 - Cellulitis, unspecified Status: Acute Plan: Lower extremity cellulitis -US: Bilateral lower extremity ultrasound negative for DVT -No areas of fluctuance, abscess, or pus. -Monitor daily labs and vitals Medications: -Ancef (02/11/18-02/14/18) -Zosyn (02/11/18-02/13/18) -Linezolid (02/14/18-02/17/18) for VRE UTI as below -Lactobacillus 1 capsule twice daily (3) Enterococcus UTI Code(s): N39.0 - Urinary tract infection, site not specified; B95.2 - Enterococcus as the cause of diseases classified elsewhere Status: Acute Plan: Patient found to have group D enterococcus species on urine culture. Patient does report history of frequent UTIs. -UA: Trace leukocyte esterase, rare bacteria, few mucus, otherwise negative Urine culture: VRE with Klebsiella; multiple resistances -Blood cultures: Negative to date -Patient currently not septic -Repeat Urine Culture 02/14/18: Negative to date -ID consulted, appreciate recommendations -Discussed with ID for possible discharge, patient cleared for discharge without continuation of antibiotics at this time Medications: -Linezolid 600mg BID (02/14/18-02/17/18) -Lactobacillus 1 capsule twice daily (4) Constipation Code(s): K59.00 - Constipation, unspecified Status: Acute Plan: Patient reporting constipation. -Patient's baseline consist of intermittent episodes of loose stools as well as episodes of constipation likely secondary to her colon malignancy -Patient currently on narcotic pain control contributing to constipation Medications: -Constipation protocol in place (5) Lung consolidation Code(s): J18.1 - Lobar pneumonia, unspecified organism Status: Acute Plan: Asymptomatic May consider repeat PA and lateral chest x-ray if diagnosis continues to be unclear -Chest x-ray single AP: Left base consolidation and diffuse infiltrate elsewhere -Supplemental oxygen as needed to keep O2 saturation at 93% -Incentive spirometry -Albuterol PRN for SOB Medications: -Continue IV antibiotics as above (6) Elevated serum creatinine Code(s): R79.89 - Other specified abnormal findings of blood chemistry Status : Resolved Plan: Creatinine 1.15 on admission, baseline approximately 0.7-0.9 per chart review -Cr elevated to 1.2, resolved with oral fluid administration -Avoid NSAIDs -Careful IV fluid administration secondary to CHF -Continue to monitor (7) Bone metastases Code(s): C79.51 - Secondary malignant neoplasm of bone Status: Chronic Plan: -History of colon cancer, possible bone metastases noted on imaging -Patient has just left rehab after previous hospitalization -Scheduled to meet with Dr. Kellogg for PET scan as outpatient (8) Chronic anemia Code(s): D64.9 - Anemia, unspecified Status: Chronic Plan: Patient with chronic anemia, baseline approximately 8-10 per chart review -2 units PRBCs transfused with 20 mg Lasix IV after each unit -Per chart review, only 1 unit PRBC administered with IV Lasix postoperatively -Second unit PRBC for continued anemia with IV Lasix 02/13/18 -Hemoglobin at baseline, continue to monitor (9) CHF (congestive heart failure) Code(s): I50.9 - Heart failure, unspecified Status: Chronic Plan: Recent diagnosis of CHF per home healthcare via chest x-ray and labs done today No signs of acute exacerbation Medications: -Continue prior medication of Lasix 40 mg daily (10) Hypertension Code(s): I10 - Essential (primary) hypertension Status: Chronic Plan: Medications: -Continue home meds; diltiazem, Lasix, metoprolol (11) Neuropathy Code(s): G62.9 - Polyneuropathy, unspecified Status: Chronic Plan: Medications: -Pain management as above -Continue home meds; gabapentin -Hold Effexor due to interaction with Linezolid at this time -Plan to restart Effexor upon discharge (12) A-fib Code(s): I48.91 - Unspecified atrial fibrillation Status: Chronic Plan: Patient with chronic Atrial fibrillation s/p ablation x 2, follows w/ -Continue telemetry Medications: -Continue diltiazem and Xarelto (13) Diabetes Code(s): E11.9 - Type 2 diabetes mellitus without complications Status: Chronic Plan: Managed with insulin -Patient refusing medications Medications: -Continue home medications: Lantus 15 units QHS (14) Hypothyroidism Code(s): E03.9 - Hypothyroidism, unspecified Status: Acute Plan: Medications: -Continue home Levothyroxine 50mcg (15) Nutrition, metabolism, and development symptoms Code(s): R63.8 - Other symptoms and signs concerning food and fluid intake Status: Acute Plan: Electrolytes: Follow-up BMP and replete as needed Nutrition: Diabetic diet as tolerated DVT prophylaxis: Restarted anticoagulation with Xarelto 02/13/18 Prophylaxis: Pain management as above, Albuterol PRN for SOB, Incentive spirometry PT to evaluate and treat CM consulted to assist with placement, rehabilitation form completed <Chandler Thomas - 02/18/18 11:04> - Assessment and Plan 72-year-old female, history of diabetes, recent hospitalization for pneumonia and severe sepsis, colon cancer with likely bone metastases, chronic anemia, CHF , hypertension, neuropathy, atrial fibrillation, hypothyroidism, presents with displaced left femoral neck fracture and leg erythema. She is s/p uncomplicated L hip hemiarthroplasty. <Chandler Thomas - 02/18/18 09:32> - Attending Attestation The exam, history, and the medical decision-making described in the above note were completed with the assistance of the resident physician. I reviewed and agree with the findings presented. I attest that I had a [id number] encounter with the patient on the same day, and personally performed and documented my assessment and findings in the medical record. Saw her and her and she is doing well and ready to go to rehab today. <Lydia Greenberg - 02/19/18 17:18> <Chandler Thomas H - Last Filed: 02/18/18 11:04> (1) Closed hip fracture Qualifiers: Encounter type: initial encounter Laterality: left Qualified Code(s): S72.002A - Fracture of unspecified part of neck of left femur, initial encounter for closed fracture <Lydia Greenberg - Last Filed: 02/19/18 17:18> (1) Closed hip fracture Qualifiers: Encounter type: initial encounter Laterality: left Qualified Code(s): S72.002A - Fracture of unspecified part of neck of left femur, initial encounter for closed fracture <Chandler Thomas - Last Filed: 02/18/18 11:04> (1) Closed hip fracture Qualifiers: Encounter type: initial encounter Laterality: left Qualified Code(s): S72.002A - Fracture of unspecified part of neck of left femur, initial encounter for closed fracture <Lydia Greenberg M - Last Filed: 02/19/18 17:18> (1) Closed hip fracture Qualifiers: Encounter type: initial encounter Laterality: left Qualified Code(s): S72.002A - Fracture of unspecified part of neck of left femur, initial encounter for closed fracture
[2018-02-18] MEDS: Rivaroxaban 10 MG Tablet PO SCH (12:28)
== END 2018-02-18 15:06 ==
LOC: NEPE 14:34 → NEDA 17:11 → N07 20:02 → N06 02-12 11:58
PROVIDERS: ADMIT Family Medicine; ATTEND Family Medicine